=== PATIENT | female | born 1970 | race Caucasian/White ===

== ENCOUNTER 2017-05-21 16:21 | Emergency (ER) | payer MEDICAID ==
[~2017-05-21] VITALS: Ht 154.9 cm; Wt 38.6 kg
[~2017-05-21 16:21] MED LIST: AC325T; ALBU17AE23 INH; ALBU2.5V4 INH; ALBU2.5V4 NEB; ALBU8.5H2 IH; ALBU8.5H2 INH; ALPR.25T PO; ALPR.5T PO; ALPR1T; ALPR1T PO; AMLO2.5T PO; ASPI-892 PO; ASPI-933 PO; AZIT250T81 PO; Azithromycin PO; BUDE10.2 IH; BUDE10.22 INH; BUDE6HFA IH; BUDE6HFA INH; CEFD300C3 PO; CEFP500T4 PO; CEPH500C PO; CETI10CA PO; CETI10TA17 PO; CLIN300C3 PO; CPR500T PO; CTLP20T PO; DCS100C PO; DICL75TA2 PO; DOCU100T2 PO; DOXY100C2 PO; DULO30CA; EST1.25T; EST1.25T PO; FENTANYL; FLC1T; FLT05NA16 NS; FLT05NA16 NSEACH; FLUT16SP22; FNT100TD TD; GABA-488 PO; GABA300C PO; GABA600T; GABA600T2 PO; GABA800T2 PO; GBPN100C PO; GBPN300C; GBPN600T PO; HYDR-229 PO; HYDR-2858 PO; HYDR-2890 PO; HYDR-3062 PO; HYDR-34; HYDR-34 PO; HYDR-3714 PO; HYDR-3720; HYDR-3720 PO; HYDR-3816 PO; HYDR-707 PO; HYDR1TAB PO; HYDR50TA76 PO; IPRA3AMP11 INH; LANS15CA PO; LEVO500T69 PO; LNS30CCR PO; LORA10TA7 PO; LYRICA; MELO-195 PO; MELO15TA39 PO; MELO7.5T PO; MORP10CA8 PO; MORP15TA30 PO; MORP30CA15 PO; MORP60CA18 PO; MORP60TA28 PO; NAPR-243 PO; NAPR500T PO; NEBU1EAC2 MC; NF-ESOM40C PO; NITR100C3 PO; ONDA-42 SL; ONDN4T PO; OXC5T PO; OXYC-272 PO; OXYC20TA14 PO; OXYC30TA76 PO; OXYC5TAB71 PO; PIRO-9 PO; PIRO20CA2; PIRO20CA2 PO; PIROXICAM; PIROXICAM PO; PNT40TEC PO; PRD20T PO; PRED10TA PO; PROP80TA3 PO; RANI-10 PO; RANI150T11 PO; RANI150T66 PO; RANI75TA30 PO; RANI75TA57 PO; RNT150T; RNT150T PO; RT-ALBUINH IH; SCR1T1 PO; TRAZODONE PO; TRM50T PO; [UNRECOGNIZED DRUG - CODE] PO
--- OUTSIDE RECORDS SUMMARY | 2017-05-21 16:28 | XMS REPORT ---
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 Problem Other, mixed, or unspecified nondependent drug abuse, unspecified 305.90 Active Problem Nausea alone 787.02 Active Problem Other chronic pain 338.29 Active Problem Chronic airway obstruction, not elsewhere classified 496 Active Problem Anxiety state, unspecified 300.00 Active Problem Elevated blood pressure reading without diagnosis of hypertension 796.2 Active Problem Unspecified disorder of kidney and ureter 593.9 Active Problem Nondependent opioid abuse, unspecified 305.50 Active Problem Other, mixed, or unspecified nondependent drug abuse, 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
--- OUTSIDE RECORDS SUMMARY | 2017-05-21 16:28 | XMS REPORT | Clinical Summary ---
Author Author [facility] Organization [facility] Address Unknown Phone Unavailable Care Team Providers Care Scale Adjuster Name Role Phone PCP Unavailable Source Comments Some departments are not documenting in the electronic medical record. If you do not see the information that you expected, contact Release of Information in the Health Information Management department at [phone] for further assistance in locating additional records.[facility] Allergies Active Allergy Reactions Severity Noted Date Comments Ketorolac 01/25/2006 Allergy recorded in SMS: KETOROLAC Ofloxacin 01/25/2006 Allergy recorded in SMS: FLOXIN Penicillins 01/25/2006 Allergy recorded in SMS: PCN Promethazine 01/25/2006 Allergy recorded in SMS: Phenergan Propoxyphene 01/25/2006 Allergy recorded in SMS: N-Acetaminophen DARVOCET Tramadol RASH 03/19/2010 Current Medications Prescription Sig. Disp. Refills Start End Date Status Date gabapentin (NEURONTIN) Take 900 mg by mouth Active 300 mg capsule three times daily. ranitidine(+) (ZANTAC) Take 150 mg by mouth Active 150 mg tablet twice daily. docusate (COLACE) 100 mg Take 1 Cap by mouth twice 60 Cap 0 12/11/19 Active capsule daily as needed for 15 Constipation. HYDROcodone/acetaminophen Take 1-2 Tabs by mouth 100 Tab 0 01/05/20 Active (NORCO; VICODIN) 5-325 mg every 8 hours as needed 15 tablet for Pain. Max 8 tabs/day (must last until 01/18/15) pregabalin (LYRICA) 25 mg Take 1 Cap by mouth three 270 Cap 3 Active capsule times daily. 15 Active Problems Problem Noted Date Postop check 12/24/2014 Social History Tobacco Use Types Packs/Day Years Used Date Current Every Day Smoker Cigarettes 2 31 Smokeless Tobacco: Never Used Tobacco Cessation: Ready to Quit: No; Counseling Given: Yes Alcohol Use Drinks/Week oz/Week Comments No Sex Assigned at Date Recorded Not on file Last Filed Vital Signs Vital Sign Reading Time Taken Blood Pressure 145/94 01/25/2015 2:11 PM CDT Pulse 76 01/25/2015 2:11 PM CDT Temperature 36.6 C (97.9 F) 01/04/2015 1:17 PM CDT Respiratory Rate - - Oxygen Saturation 95% 12/10/2014 6:00 PM CDT Inhaled Oxygen - - Concentration Weight 46.3 kg (102 lb) 01/04/2015 1:17 PM CDT Height 154.9 cm (5' 1") 01/04/2015 1:17 PM CDT Body Mass Index 19.27 01/04/2015 1:17 PM CDT Plan of Treatment Health Maintenance Due Date Last Done Comments PHYSICAL (COMPREHENSIVE) 1975 EXAM PERTUSSIS VACCINE 1979 TETANUS VACCINE 1985 CERVICAL CANCER SCREENING 1998 BREAST CANCER SCREENING 2008 INFLUENZA VACCINE 05/26/2017 Results Not on filefrom Last 3 Months
--- OUTSIDE RECORDS SUMMARY | 2017-05-21 16:28 | XMS REPORT ---
Author Author YANI WILSON Organization [facility] Address [address] [place] [address] Care Team Providers Care Hourly Shift Manager Name Role Phone YANI WILSON Unavailable PROBLEMS Type Condition ICD9-CM Code [id number] Code Onset Dates Condition Status SNOMED Code Problem Unspecified drug dependence, unspecified abuse 304.90 Active 891456144 Problem Chronic airway obstruction, not elsewhere classified 496 Active 19824162 Problem Anxiety state, unspecified 300.00 Active 941263297 Problem Phantom limb pain G54.7 Active 046937231 Problem Other chronic pain 338.29 Active 52297987 Problem Elevated blood pressure reading without diagnosis of hypertension 796.2 Active 457938300 Problem Unspecified disorder of kidney and ureter 593.9 Active 464962729 Problem Other, mixed, or unspecified nondependent drug abuse, unspecified 305.90 Active 930637378 Problem Nausea alone 787.02 Active 652084143 Problem Other, mixed, or unspecified nondependent drug abuse, 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 Active Problem Nondependent amphetamine or related acting sympathomimetic abuse, 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
--- OUTSIDE RECORDS SUMMARY | 2017-05-21 16:29 | XMS REPORT ---
Author Author OLMAN DSOUZA Organization [employer] Address Unknown Phone Unavailable Care Team Providers Care Junior Systems Engineer Name Role Phone OLMAN DSOUZA CP Unavailable [...]
--- OUTSIDE RECORDS SUMMARY | 2017-05-21 16:29 | XMS REPORT ---
Author Author OLMAN DSOUZA Organization [employer] Address Unknown Phone Unavailable Care Team Providers Care Pest Control Worker Name Role Phone OLMAN DSOUZA CP Unavailable Allergies No Known Allergies Problems Problem Type Condition ICD-9 Code Onset Dates Condition Status Problem Urinary [...] acting sympathomimetic abuse, 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 Medications Medication Code System Code Instructions Start Date End Date Status Dosage Gabapentin [facility] 45403686149 300 Orally Three times a day TAKE THREE CAPSULES BY MOUTH THREE TIMES A DAY . Results No Known Results Summary Purpose [employer] Submission
--- OUTSIDE RECORDS SUMMARY | 2017-05-21 16:29 | XMS REPORT ---
Author Leonel Camejo [facility] Address [address] [place], [place] [id number] Care Team Providers Care Women'S Soccer Coach Name Role Phone Leonel Rivers PCP Unavailable Allergies and Adverse Reactions Name Reaction Notes PENICILLINS Augmentin Floxin Phenergan Toradol Darvocet-N 100 Plan of Treatment Not available. Medications Active Name Start Date Estimated Completion Date SIG Comments Pancreaze oral TID Protonix 40 mg oral tablet,delayed release (DR/EC) take 1 tablet (40 mg ) by oral route once daily Zofran ODT 4 mg oral tablet,disintegrating PRN Nexium 20 mg oral capsule,delayed release(DR/EC) Prilosec OTC 20 mg oral tablet,delayed release (DR/EC) gabapentin 300 mg oral capsule take 3 capsules by oral route 3 times a day hydrocodone-acetaminophen 7.5-325 mg oral tablet take 1 tablet by oral route every 4-6 hours as needed for pain tramadol 50 mg oral tablet take 1 tablet (50 mg) by oral route every 4 hours as needed Problem List Description Status Onset Neuropathy Active Pancreatitis Active Peripheral Vascular Disease Active Vital Signs Date Time BP-Sys(mm[Hg] BP-Heidi(mm[Hg]) HR(bpm) RR(rpm) Temp WT HT HC BMI BSA BMI Percentile O2 Sat(%) 10/24/2016 10:37:00 AM 110 mmHg 78 mmHg 104 bpm 20 rpm 98.3 F 97 % Social History Name Description Comments Tobacco Current every day smoker History of Procedures Not available. Results Summary Not available. History Of Immunizations Not available. History of Past Illness Name Date of Onset Comments Pancreatitis Peripheral Vascular Disease Neuropathy Chronic pancreatitis Oct 24 2016 10:37AM Pancreatic cyst Oct 24 2016 10:37AM Payers Not available. History of Encounters Visit Date Visit Type Provider 10/24/2016 Office visit Leonel Rivers MD
--- OUTSIDE RECORDS SUMMARY | 2017-05-21 16:29 | XMS REPORT ---
Author Author OLMAN DSOUZA [facility] [employer] Address Unknown Phone Unavailable Care Team Providers Care Siebel Architect Name Role Phone OLMAN DSOUZA CP Unavailable [...] Instructions Start Date End Date Status Dosage Ranitidine HCl [facility] [address]-15 150 MG Orally Twice a day 1 tablet Gabapentin [facility] 43791313622 300 Orally 4 times a day 3 capsules Zofran ODT [facility] [address]-68 4 MG Orally every 6 hrs prn nausea 1 tablet on the tongue and allow to dissolve Diclofenac Sodium [facility] [address]-16 75 MG Orally Once a day 1 tablet Results No Known Results Summary Purpose [employer] Submission
--- OUTSIDE RECORDS SUMMARY | 2017-05-21 16:30 | XMS REPORT ---
Author Author YANI WILSON Organization [facility] Address [address] [place] [address] Care Team Providers Care Raw Stock Machine Loader Name Role Phone YANI WILSON Unavailable PROBLEMS Type Condition ICD9-CM Code [id number] Code Onset Dates Condition Status SNOMED Code Problem Unspecified drug dependence, unspecified abuse 304.90 Active 369519112 Problem Chronic airway obstruction, not elsewhere classified 496 Active 47150660 Problem Anxiety state, unspecified 300.00 Active 892424347 Problem Phantom limb pain G54.7 Active 322481139 Problem Other chronic pain 338.29 Active 21492728 Problem Elevated blood pressure reading without diagnosis of hypertension 796.2 Active 481296062 Problem Unspecified disorder of kidney and ureter 593.9 Active 092352904 Problem Other, mixed, or unspecified nondependent drug abuse, unspecified 305.90 Active 521179268 Problem Nausea alone 787.02 Active 019190874 Problem Other, mixed, or unspecified nondependent drug abuse, 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 Active Problem Nondependent amphetamine or related acting sympathomimetic abuse, 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 Problem Urinary frequency 788.41 Active 928315054 Problem Nondependent opioid abuse, unspecified 305.50 Active 286713916 Problem 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
--- OUTSIDE RECORDS SUMMARY | 2017-05-21 16:30 | XMS REPORT ---
Author Author AMAYA LASHAY Organization [facility] Address [address] [place] [address] Care Team Providers Care Sugar Refiner Name Role Phone AMAYALIOR MONROYHANY Unavailable PROBLEMS Type Condition ICD9-CM Code HOT85-TL Code Onset Dates Condition Status SNOMED Code Problem Unspecified drug dependence, unspecified abuse 304.90 Active 259081619 Problem Chronic airway obstruction, not elsewhere classified 496 Active 01628214 Problem Anxiety state, unspecified 300.00 Active 000493915 Problem Phantom limb pain G54.7 Active 920570436 Problem Other chronic pain 338.29 Active 50356915 Problem Elevated blood pressure reading without diagnosis of hypertension 796.2 Active 822300050 Problem Unspecified disorder of kidney and ureter 593.9 Active 503498246 Problem Other, mixed, or unspecified nondependent drug abuse, unspecified 305.90 Active 794283719 Problem Nausea alone 787.02 Active 499662107 Problem Other, mixed, or unspecified nondependent drug abuse, 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 Active Problem Nondependent amphetamine or related acting sympathomimetic abuse, 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
--- OUTSIDE RECORDS SUMMARY | 2017-05-21 16:31 | XMS REPORT ---
Author Author OLMAN DSOUZA [facility] [employer] Address Unknown Phone Unavailable Care Team Providers Care Route Salesperson Name Role Phone OLMAN DSOUZA CP Unavailable Allergies, Adverse Reactions, Alerts Substance Reaction Event Type Phenergan Info Not Available Drug Allergy Penicillin V Potassium Info Not Available Drug Allergy Floxin Otic Info Not Available Drug Allergy Darvocet-N 100 Info Not Available Drug Allergy Augmentin ES-600 Info Not Available Drug Allergy Problems Problem Type Condition ICD-9 Code Onset Dates Condition Status Problem Urinary frequency 788.41 Active Problem Unspecified drug dependence, unspecified abuse 304.90 Active Problem 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 Problem Other, mixed, or unspecified nondependent drug abuse, unspecified 305.90 Active Assessment Noncompliance V15.81 Active Problem Nausea alone 787.02 Active Problem Other chronic pain 338.29 Active Problem Chronic airway obstruction, not elsewhere classified 496 Active Problem Anxiety state, unspecified 300.00 Active Problem Elevated blood pressure reading without diagnosis of hypertension 796.2 Active Problem Unspecified disorder of kidney and ureter 593.9 Active Assessment Encounter for long-term (current) use of high-risk medication V58.69 Active Assessment History of drug abuse 305.93 Active Assessment Anxiety 300.00 Active Assessment Dyspepsia 536.8 Active Assessment Chronic pain following surgery or procedure 338.28 Active Problem Nondependent opioid abuse, unspecified 305.50 Active Assessment Allergic rhinitis 477.9 Active Problem Other, mixed, or unspecified nondependent drug abuse, 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 Active Assessment COPD (chronic obstructive pulmonary disease) with acute bronchitis 491.22 Active Problem Nondependent amphetamine or related acting sympathomimetic abuse, 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 Medications Medication Code System Code Instructions Start Date End Date Status Dosage Zofran ODT [facility] [address]-10 4 mg March 18, 2014 take 1 tablets by Oral route every 8 hours PRN Nausea or Vomiting HydrOXYzine HCl [facility] [address]-66 50 MG Orally 3 times a day November 03, 2014 1 tablet as needed Albuterol Sulfate [facility] 32239918190 2.5 mg Inhalation every 8 hrs prn USE 1 VIAL PER NEBULIZER NEEDED FOR COUGH/WHEEZING ZyrTEC NDC 0 10 mg Once a day November 03, 2014 1 tablet by Oral route 1 time per day Flonase [facility] [address]-18 50 mcg/actuation Nasally Once a day November 03, 2014 inhale 1 spray (50 mcg) in each nostril by intranasal route 2 times per day Lidocaine HCl [facility] 0 5 % Externally 3 times a day November 01, 2014 by Topical route 3 times per day MUST KEEP APPT Gabapentin [facility] 66886444402 300 Orally 4 times a day 3 capsules ProAir HFA [facility] [address]-24 90 mcg/actuation Inhalation every 4 hrs only dyspnea or wheezing November 03, 2014 inhale 2 puffs by inhalation route every 4-6 hours as needed PRN Nebulizer [facility] [address] March 17, 2015 as directed Symbicort [facility] [address]-56 160-4.5 mcg/actuation Inhalation Twice a day November 03, 2014 2 puffs by Inhalation route 2 times per day for 30 day(s) Ranitidine HCl [facility] [address]-09 150 MG Orally 2 times a day November 03, 2014 take 1 tablet (150 mg) by oral route 2 times per day Procedures Procedure Coding System Code Date Office Visit, Est Pt., Level 4 CPT-4 21145 Apr 26, 2015 Vital Signs Date/Time: Apr 26, 2015 Cardiac Monitoring Heart Rate 72 bpm Temperature 97.2 F Height 61 in Blood Pressure Diastolic 88 mmHg Blood Pressure Systolic 102 mmHg Results No Known Results Summary Purpose [employer]ClinicalWorks Submission
--- NOTE | 2017-05-21 17:07 | ED Abdominal Pain ---
General Chief Complaint: Abdominal/GI Problems Stated Complaint: ABDOMINAL PAIN Source of Information: Patient Exam Limitations: No Limitations History of Present Illness Time Seen By Provider: 17:06 Initial Comments To ER with reports of abdominal pain. She reports nausea without vomiting. She states her last bowel movement was yesterday and was normal. No bowel movement today. She states that she believes this to be a recurrent bout of pancreatitis. Timing/Duration: 1-2 Days Severity/Quality: Cramping Location: Generalized Abdomen Radiation: No Radiation Activities at Onset: None Associated Symptoms: Nausea/Vomiting Allergies and Home Medications Allergies Coded Allergies: ofloxacin (Verified Allergy, Mild, 08/10/16) Penicillins (Verified Allergy, Unknown, 08/10/16) amoxicillin (Verified Allergy, Unknown, 08/10/16) clavulanic acid (Verified Allergy, Unknown, 08/10/16) promethazine (Verified Allergy, Unknown, 08/10/16) propoxyphene (Verified Allergy, Unknown, 08/10/16) Home Medications Budesonide/Formoterol Fumarate 10.2 Gm Hfa.aer.ad, 2 PUFF IH BID, (Reported) Gabapentin 300 Mg Capsule, 300 MG PO QID, (Reported) TAKES ALONG WITH 600MG TABLET FOR A TOTAL DOSE OF 900MG 4 TIMES DAILY Gabapentin 600 Mg Tablet, 600 MG PO QID, (Reported) TAKES ALONG WITH 300MG CAPSULE FOR A TOTAL DOSE OF 900MG 4 TIMES DAILY Meloxicam 15 Mg Tablet, 15 MG PO DAILY, (Reported) Ranitidine HCl 150 Mg Tablet, 150 MG PO BID, (Reported) Review of Systems Constitutional: see HPI EENTM: No Symptoms Reported Respiratory: No Symptoms Reported Cardiovascular: No Symptoms Reported Gastrointestinal: See HPI, Abdominal Pain Genitourinary: No Symptoms Reported Musculoskeletal: no symptoms reported Skin: no symptoms reported Psychiatric/Neurological: No Symptoms Reported Endocrine: No Symptoms Reported Hematologic/Lymphatic: No Symptoms Reported Past Byvmtve-Ptxrlk-Upvbjr Hx Patient Social History Type Used: Cigarettes Recent Foreign Travel: No Contact w/Someone Who Travel: No Recent Hopitalizations: Yes Immunizations Up To Date Tetanus Booster (TDap): Less than 5yrs PED Vaccines UTD: Yes Date of Pneumonia Vaccine: Jul 26, 2009 Date of Influenza Vaccine: Sep 26, 2013 Seasonal Allergies Seasonal Allergies: No Surgeries Surgeries: Amputation, Gallbladder, Hysterectomy Respiratory Respiratory Disorders: Asthma, Pneumonia, COPD, Emphysema Currently Using CPAP: No Currently Using BIPAP: No Neurological Neurological Disorders: Stroke 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 System Hx 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 Disorders: Yes Sexually Transmitted Disease: No HIV/AIDS: No 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 Gastrointestinal Gastrointestinal Disorders: Pancreatitis Musculoskeletal Musculoskeletal Disorders: Amputee, Osteoporosis HEENT HEENT Disorders: Cataract Loss of Vision: Denies Hearing Impairment: Denies Psychosocial Behavioral Health Disorders: Anxiety, Depression Blood Transfusions Adverse Reaction to a Blood Tr: No Family Medical History Significant Family History: COPD, Diabetes Family Medial History: Alzheimer's disease 19 FATHER 19 MOTHER Asthma 19 FATHER Completed stroke 19 FATHER Deafness or hearing loss 19 FATHER Dementia 19 FATHER Diabetes mellitus 19 FATHER 19 MOTHER Headache disorder 19 FATHER Hypertension 19 FATHER 19 MOTHER Myocardial infarction 19 FATHER 19 MOTHER Respiratory disorder 19 FATHER No Family History of: Kidney disease Physical Exam Vital Signs VS - Last 72 Hours, by Label 05/21/17 16:55 Temp 98.2 Pulse 86 Resp 16 B/P (MAP) 122/89 Pulse Ox 98 O2 Delivery Room Air Capillary Refill : General Appearance: WD/WN, no apparent distress HEENT: PERRL/EOMI, normal ENT inspection Neck: non-tender, full range of motion Respiratory: normal breath sounds, no respiratory distress, no accessory muscle use Cardiovascular: regular rate, rhythm, no murmur Gastrointestinal: normal bowel sounds, non tender, soft, distended Extremities: normal range of motion, non-tender Neurologic/Psychiatric: alert, normal mood/affect, oriented x 3 Skin: normal color, warm/dry Progress/Results/Core Measures Results/Orders Lab Results Laboratory Tests Test 05/21/17 17:30 Range/Units White Blood Count 10.3 4.3-11.0 10^3/uL Red Blood Count 3.69 L 4.35-5.85 10^6/uL Hemoglobin 10.1 L 11.5-16.0 G/DL Hematocrit 34 L 35-52 % Mean Corpuscular Volume 93 80-99 FL Mean Corpuscular Hemoglobin 27 25-34 PG Mean Corpuscular Hemoglobin Concent 29 L 32-36 G/DL Red Cell Distribution Width 17.3 H 10.0-14.5 % Platelet Count 390 130-400 10^3/uL Mean Platelet Volume 10.5 H 7.4-10.4 FL Neutrophils (%) (Auto) 74 42-75 % Lymphocytes (%) (Auto) 16 12-44 % Monocytes (%) (Auto) 9 0-12 % Eosinophils (%) (Auto) 1 0-10 % Basophils (%) (Auto) 1 0-10 % Neutrophils # (Auto) 7.6 1.8-7.8 X 10^3 Lymphocytes # (Auto) 1.6 1.0-4.0 X 10^3 Monocytes # (Auto) 0.9 0.0-1.0 X 10^3 Eosinophils # (Auto) 0.1 0.0-0.3 10^3/uL Basophils # (Auto) 0.1 0.0-0.1 10^3/uL Urine Color YELLOW Urine Clarity CLEAR Urine pH 5 5-9 Urine Specific [place] 1.020 1.016-1.022 Urine Protein 1+ H NEGATIVE Urine Glucose (UA) NEGATIVE NEGATIVE Urine Ketones NEGATIVE NEGATIVE Urine Nitrite NEGATIVE NEGATIVE Urine Bilirubin NEGATIVE NEGATIVE Urine Urobilinogen NORMAL NORMAL MG/DL Urine Leukocyte Esterase NEGATIVE NEGATIVE Urine RBC (Auto) NEGATIVE NEGATIVE Urine RBC NONE /HPF Urine WBC 0-2 /HPF Urine Squamous Epithelial Cells 2-5 /HPF Urine Crystals NONE /LPF Urine Bacteria TRACE /HPF Urine Casts NONE /LPF Urine Mucus NEGATIVE /LPF Urine Culture Indicated NO Sodium Level 139 135-145 MMOL/L Potassium Level 4.8 3.6-5.0 MMOL/L Chloride Level 110 H 98-107 MMOL/L Carbon Dioxide Level 18 L 21-32 MMOL/L Anion Gap 11 5-14 MMOL/L Blood Urea Nitrogen 22 H 7-18 MG/DL Creatinine 0.80 0.60-1.30 MG/DL Estimat Glomerular Filtration Rate > 60 BUN/Creatinine Ratio 28 Glucose Level 93 70-105 MG/DL Calcium Level 9.3 8.5-10.1 MG/DL Total Bilirubin 0.2 0.1-1.0 MG/DL Aspartate Amino Transf (AST/SGOT) 10 5-34 U/L Alanine Aminotransferase (ALT/SGPT) 8 0-55 U/L Alkaline Phosphatase 62 40-136 U/L Total Protein 7.2 6.4-8.2 GM/DL Albumin 4.1 3.2-4.5 GM/DL Lipase 120 H 8-78 U/L Urine Opiates Screen NEGATIVE NEGATIVE Urine Oxycodone Screen NEGATIVE NEGATIVE Urine Methadone Screen NEGATIVE NEGATIVE Urine Propoxyphene Screen NEGATIVE NEGATIVE Urine Barbiturates Screen NEGATIVE NEGATIVE Ur Tricyclic Antidepressants Screen NEGATIVE NEGATIVE Urine Phencyclidine Screen NEGATIVE NEGATIVE Urine Amphetamines Screen NEGATIVE NEGATIVE Urine Methamphetamines Screen NEGATIVE NEGATIVE Urine Benzodiazepines Screen NEGATIVE NEGATIVE Urine Cocaine Screen NEGATIVE NEGATIVE Urine Cannabinoids Screen NEGATIVE NEGATIVE Serum Alcohol < 10 <10 MG/DL My Orders Orders - JUAN C FRANCISCO CLIENT SUPPORT COORDINATOR Cbc With Automated Diff (05/21/17 17:03) Comprehensive Metabolic Panel (05/21/17 17:03) Lipase (05/21/17 17:03) Ua Culture If Indicated (05/21/17 17:03) Drug Screen Stat (Urine) (05/21/17 17:03) Saline Lock/Iv-Start (05/21/17 17:03) Ct Abdomen/Pelvis W (05/21/17 17:03) Ondansetron Injection (Zofran Injectio (05/21/17 17:15) Iohexol Injection (Omnipaque 350 Mg/Ml 1 (05/21/17 17:15) Ns (Ivpb) (Sodium Chloride 0.9% Ivpb Bag (05/21/17 17:15) Ns Iv 1000 Ml (Sodium Chloride 0.9%) (05/21/17 18:15) Alcohol (05/21/17 18:10) Prochlorperazine Injection (Compazine In (05/21/17 18:30) Ketorolac Injection (Toradol Injection) (05/21/17 18:30) Hs C Reactive Protein (05/21/17 18:43) Medications Given in ED Current Medications Medications Dose Ordered Sig/Ely Route Start Time Stop Time Status Last Admin Dose Admin Iohexol 100 ml ONCE ONCE IV 05/21/17 17:15 05/21/17 18:09 DC 05/21/17 17:54 100 ML Ondansetron HCl 4 mg ONCE ONCE IVP 05/21/17 17:15 05/21/17 17:16 DC 05/21/17 17:41 4 MG Prochlorperazine Edisylate 10 mg ONCE ONCE IV 05/21/17 18:30 05/21/17 18:31 DC 05/21/17 18:29 10 MG Sodium Chloride 100 ml ONCE ONCE IV 05/21/17 17:15 05/21/17 18:09 DC 05/21/17 17:55 100 ML Vital Signs/I&O Vital Sign - Last 12Hours 05/21/17 16:55 Temp 98.2 Pulse 86 Resp 16 B/P (MAP) 122/89 Pulse Ox 98 O2 Delivery Room Air Diagnostic Imaging Diagonstic Imaging: CT Comments NAME: SOPHIE [facility]US [facility] REC#: [id number] PT STATUS: REG ER : 1970 PHYSICIAN: JUAN C FRANCISCO CLIENT SUPPORT COORDINATOR ADMIT DATE: 05/21/17/ER Draft Date of Exam:05/21/17 CT ABDOMEN/PELVIS W Clinical indication: Patient complains of abdominal pain and feels bloated. Symptoms are worse today. Patient had BM yesterday. Patient has history of cysts on pancreas. Surgical history: Hysterectomy, gallbladder resection, hernia repair, and appendectomy. Exam: CT scan of the abdomen and pelvis performed with 100 cc of Omnipaque 350 IV contrast. Portable venous and delayed phases were obtained. Coronal reformatted images are created. Comparison: CT scan of the abdomen and pelvis performed with contrast dated 08/17/2016. FINDINGS: There is minimal atelectasis or scarring in the lingula/left lung base region. There is mild lower lumbar spine facet arthropathy. Otherwise, bones are unremarkable. Gallbladder is surgically resected. There is interval decreased size or near resolution of previously seen fluid collection seen posterior to the stomach. There is a small amount of fluid remaining posterior to the stomach and ventral to the pancreas. This fluid collection appears less distended and measures grossly 2.4 cm x 5.4 cm in greatest axial dimension. This fluid collection previously measured 4.3 cm x 5.1 cm and had peripheral enhancement. There is no peripheral enhancement involving this fluid collection. There is no edematous or masslike changes involving the pancreas. There is similar gastric wall thickening and enhancement involving the gastric fundus and body with no measurable mass seen. The remainder of the intestines are unremarkable. The appendix is not seen related to patient's history of appendectomy. There is air and stool distended rectum again seen with a moderate amount of stool noted. There is no intra-abdominal free air or free fluid. The liver, adrenal glands, and both kidneys are unremarkable. There is no hydronephrosis, renal mass, or stones seen. Again seen are multiple surgical clips involving the right lower anterior abdominal wall region. There is no significant lymphadenopathy. There is no aneurysmal dilation of the abdominal aorta or iliac arteries. Again noted, cachexia which has progressed. Otherwise there is no significant extra abdominal and extrapelvic soft tissue abnormality. The bladder is fluid distended and otherwise unremarkable as visualized. Impression: 1: There is interval decreased size of the previously seen fluid collection posterior to the stomach and ventral to the pancreatic tail. There is residual small fluid collection in the region with no evidence of peripheral enhancement seen on this exam. 2: The appearance of the pancreas is stable. 3: There is stable wall thickening of the stomach which is nonspecific. 4: The remainder of this exam is stable with no significant interval abnormality. Dictated on workstation # [id number] Dict: 05/21/17 1805 Trans: 05/21/17 1841 [facility] [id number] Interpreted by: BEE MAR MD Electronically signed by: Departure Impression Impression: Primary Impression: Abdominal pain, chronic, generalized Additional Impressions: Chronic pancreatitis resolving pancreatic pseudocyst Disposition: 01 HOME, SELF-CARE Condition: Stable Departure-Patient Inst. Decision time for Depature: 18:57 Referrals: NO,LOCAL PHYSICIAN (PCP/Family) Primary Care Physician Patient Instructions: Pancreatitis (DC) Add. Discharge Instructions: 1. Clear liquids only for the rest of tonight and tomorrow morning. No alcohol. Follow-up with [facility]. Give them a call tomorrow to make an appointment to be seen 3. Nausea medication as needed All discharge instructions reviewed with patient and/or family. Voiced understanding. Scripts Prochlorperazine Maleate (Compazine) 25 Mg Supp.rect 25 MG RC Q8H for Nausea/Vomiting, #10 SUPP.RECT Prov: JUAN C FRANCISCO APRN 05/21/17 JUAN C FRANCISCO APRN May 21, 2017 17:07
[2017-05-21] MEDS ORDERED: ONDANSETRON 4 MG/2 ML (SDV) Z0FRAN IVP ONE (17:15)
[2017-05-21] MEDS ORDERED: IOHEXOL 350 MG/ML 100 ML (OMNIPAQUE 350) VIAL IV ONE (17:15)
[2017-05-21] MEDS ORDERED: NS 100 ML (IVPB) BAG IV ONE (17:15)
[2017-05-21 17:43] LABS: BILIRUBIN,URINE NEGATIVE (NEGATIVE); KETONES,URINE NEGATIVE (NEGATIVE); LEUKOCYTE ESTERASE ,URINE NEGATIVE (NEGATIVE); NITRITE,URINE NEGATIVE (NEGATIVE); PH,URINE 5 (5-9); PROTEIN,URINE 1+ (NEGATIVE); UROBILINOGEN,URINE NORMAL (NORMAL)
[2017-05-21 17:44] LABS: BASOPHILS # (AUTO) 0.1 10^3/uL (0.0-0.1); BASOPHILS % (AUTO) 1 % (0-10); EOSINOPHILS # (AUTO) 0.1 10^3/uL (0.0-0.3); EOSINOPHILS % (AUTO) 1 % (0-10); LYMPHOCYTES # (AUTO) 1.6 X 10^3 (1.0-4.0); LYMPHOCYTES % (AUTO) 16 % (12-44); MEAN CORPUSCULAR HEMOGLOBIN 27 PG (25-34); MEAN CORPUSCULAR HGB CONC 29 G/DL (32-36); MEAN CORPUSCULAR VOLUME 93 FL (80-99); MEAN PLATELET VOLUME 10.5 FL (7.4-10.4); MONOCYTES # (AUTO) 0.9 X 10^3 (0.0-1.0); MONOCYTES % (AUTO) 9 % (0-12); NEUTROPHILS # (AUTO) 7.6 X 10^3 (1.8-7.8); NEUTROPHILS % (AUTO) 74 % (42-75); PLATELET COUNT 390 10^3/uL (130-400); RED BLOOD COUNT 3.69 10^6/uL (4.35-5.85); RED CELL DISTRIBUTION WIDTH 17.3 % (10.0-14.5); WHITE BLOOD COUNT 10.3 10^3/uL (4.3-11.0)
[2017-05-21 17:49] LABS: WBC,URINE 0-2 /HPF
[2017-05-21 18:00] LABS: ALANINE AMINOTRANSFERASE 8 U/L (0-55); ALBUMIN 4.1 GM/DL (3.2-4.5); ANION GAP 11 MMOL/L (5-14); ASPARTATE AMINO TRANSFERASE 10 U/L (5-34); BILIRUBIN,TOTAL 0.2 MG/DL (0.1-1.0); BLOOD UREA NITROGEN 22 MG/DL (7-18); BUN/CREATININE RATIO 28; CALCIUM 9.3 MG/DL (8.5-10.1); CARBON DIOXIDE 18 MMOL/L (21-32); CHLORIDE 110 MMOL/L (98-107); GFR ESTIMATED > 60; GLUCOSE 93 MG/DL (70-105); LIPASE 120 U/L (8-78); POTASSIUM 4.8 MMOL/L (3.6-5.0); SODIUM 139 MMOL/L (135-145); TOTAL PROTEIN 7.2 GM/DL (6.4-8.2)
[2017-05-21] MEDS ORDERED: NS IV 1000 ML 1,000 ML IV SCH (18:15)
[2017-05-21] MEDS ORDERED: PROCHLORPERAZINE 10 MG/2ML INJ (COMPAZINE) IV ONE (18:30)
[2017-05-21] MEDS ORDERED: KETOROLAC 30 MG/ML VIAL IVP ONE (18:30)
--- NOTE | 2017-05-21 18:42 | Diagnostic Imaging Report ---
Clinical indication: Patient complains of abdominal pain and feels bloated. Symptoms are worse today. Patient had BM yesterday. Patient has history of cysts on pancreas. Surgical history: Hysterectomy, gallbladder resection, hernia repair, and appendectomy. Exam: CT scan of the abdomen and pelvis performed with 100 cc of Omnipaque 350 IV contrast. Portable venous and delayed phases were obtained. Coronal reformatted images are created. Comparison: CT scan of the abdomen and pelvis performed with contrast dated 08/17/2016. FINDINGS: There is minimal atelectasis or scarring in the lingula/left lung base region. There is mild lower lumbar spine facet arthropathy. Otherwise, bones are unremarkable. Gallbladder is surgically resected. There is interval decreased size or near resolution of previously seen fluid collection seen posterior to the stomach. There is a small amount of fluid remaining posterior to the stomach and ventral to the pancreas. This fluid collection appears less distended and measures grossly 2.4 cm x 5.4 cm in greatest axial dimension. This fluid collection previously measured 4.3 cm x 5.1 cm and had peripheral enhancement. There is no peripheral enhancement involving this fluid collection. There is no edematous or masslike changes involving the pancreas. There is similar gastric wall thickening and enhancement involving the gastric fundus and body with no measurable mass seen. The remainder of the intestines are unremarkable. The appendix is not seen related to patient's history of appendectomy. There is air and stool distended rectum again seen with a moderate amount of stool noted. There is no intra-abdominal free air or free fluid. The liver, adrenal glands, and both kidneys are unremarkable. There is no hydronephrosis, renal mass, or stones seen. Again seen are multiple surgical clips involving the right lower anterior abdominal wall region. There is no significant lymphadenopathy. There is no aneurysmal dilation of the abdominal aorta or iliac arteries. Again noted, cachexia which has progressed. Otherwise there is no significant extra abdominal and extrapelvic soft tissue abnormality. The bladder is fluid distended and otherwise unremarkable as visualized. Impression: 1: There is interval decreased size of the previously seen fluid collection posterior to the stomach and ventral to the pancreatic tail. There is residual small fluid collection in the region with no evidence of peripheral enhancement seen on this exam. 2: The appearance of the pancreas is stable. 3: There is stable wall thickening of the stomach which is nonspecific. 4: The remainder of this exam is stable with no significant interval abnormality. Dictated by: Dictated on workstation # [id number]
[2017-05-21] MEDS ORDERED: PROC25SU27 RC (18:58)
[2017-05-21 19:29] VITALS: BP 105/73
== END 2017-05-21 19:29 | disposition home or self-care (01) ==
LOC: EDUNIT# 16:21 → ER 16:24
DX: K86.1 Other chronic pancreatitis (principal); K86.3 Pseudocyst of pancreas; F41.9 Anxiety disorder, unspecified; F32.9 Major depressive disorder, single episode, unspecified; J43.9 Emphysema, unspecified; Z86.73 Personal history of transient ischemic attack (TIA), and cerebral infarction without residual deficits; Z87.19 Personal history of other diseases of the digestive system; Z90.710 Acquired absence of both cervix and uterus; Z89.9 Acquired absence of limb, unspecified
CPT/HCPCS: 36415; 74177; 80053; 80306; 80320; 81000; 83690; 85025; 86141; 96361; 96374; 96375

== ENCOUNTER 2017-08-05 15:38 | Inpatient (IN) | payer MEDICAID ==
[~2017-08-05] VITALS: Ht 154.9 cm; Wt 35.6 kg
[~2017-08-05 15:38] MED LIST changes: +NAPR-1071 PO; -NAPR500T PO; +PROC25SU27 RC
--- OUTSIDE RECORDS SUMMARY | 2017-08-05 15:52 | XMS REPORT | Clinical Summary ---
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 If you do not see the information that you expected, contact Release of Information in the Health Information Management department at [phone] for further assistance in locating additional records.[facility] Allergies Active Allergy Reactions Severity Noted [...] 1998 BREAST CANCER SCREENING 2008 INFLUENZA VACCINE 03/26/2017 Results Not on filefrom Last 3 Months
[2017-08-05 15:54] LABS: BASOPHILS % (AUTO) 0 % (0-10); EOSINOPHILS % (AUTO) 0 % (0-10); LYMPHOCYTES # (AUTO) 0.9 X 10^3 (1.0-4.0); LYMPHOCYTES % (AUTO) 6 % (12-44); MEAN CORPUSCULAR HEMOGLOBIN 25 PG (25-34); MEAN CORPUSCULAR HGB CONC 29 G/DL (32-36); MEAN CORPUSCULAR VOLUME 86 FL (80-99); MEAN PLATELET VOLUME 13.6 FL (7.4-10.4); MONOCYTES # (AUTO) 1.7 X 10^3 (0.0-1.0); MONOCYTES % (AUTO) 11 % (0-12); NEUTROPHILS # (AUTO) 12.6 X 10^3 (1.8-7.8); NEUTROPHILS % (AUTO) 83 % (42-75); PLATELET COUNT 135 10^3/uL (130-400); RED BLOOD COUNT 3.04 10^6/uL (4.35-5.85); RED CELL DISTRIBUTION WIDTH 16.7 % (10.0-14.5); WHITE BLOOD COUNT 15.2 10^3/uL (4.3-11.0)
[2017-08-05 16:11] LABS: ALANINE AMINOTRANSFERASE 17 U/L (0-55); ALBUMIN 2.6 GM/DL (3.2-4.5); ANION GAP 14 MMOL/L (5-14); ASPARTATE AMINO TRANSFERASE 21 U/L (5-34); BILIRUBIN,TOTAL 0.3 MG/DL (0.1-1.0); BLOOD UREA NITROGEN 55 MG/DL (7-18); BUN/CREATININE RATIO 23; CALCIUM 8.5 MG/DL (8.5-10.1); CARBON DIOXIDE 14 MMOL/L (21-32); CHLORIDE 111 MMOL/L (98-107); CREATININE SERUM 2.38 MG/DL (0.60-1.30); GFR ESTIMATED 22; GLUCOSE 102 MG/DL (70-105); POTASSIUM 4.6 MMOL/L (3.6-5.0); SODIUM 139 MMOL/L (135-145)
[2017-08-05 16:14] LABS: INR 1.3 (0.8-1.4); PROTHROMBIN TIME PATIENT 15.9 SEC (12.2-14.7)
[2017-08-05 16:18] LABS: HYPOCHROMASIA MODERATE; LYMPHOCYTES % (MANUAL) 5 %; NEUTROPHILS % (MANUAL) 85 %; TARGET CELLS SLIGHT
--- NOTE | 2017-08-05 16:28 | ED General ---
General Chief Complaint: General Problems/Pain Stated Complaint: LETHARGIC Nursing Triage Note: PT TO [facility] BY [facility] WITH CC OF NOT EATING FOR 2 DAYS, WEAKNESS AND LETHARGIC. PT RESPONSIVE TO PAIN BUT SLEEPING ON ARRIVAL. Nursing Sepsis Screen: No Definite Risk Source of Information: Patient Exam Limitations: Physical Impairments (clinical condition) History of Present Illness Time Seen by Provider: 15:39 Initial Comments Here by EMS with report of altered mental status. Apparently patient has not been eating or drinking for the last 2 days. EMS reports that the patient is lethargic and weak. This was also the same report to them from the family. Patient only states that she doesn't feel well and is weak. Unsure she is taking her medicines. Unsure if she is taking nonprescribed medications. Timing/Duration: 2-3 Days Severity: Moderate Associated Systoms: No Chest Pain, Malaise, No Nausea/Vomiting, No Shortness of Air, Weakness Allergies and Home Medications Allergies Coded Allergies: ofloxacin (Verified Allergy, Mild, 08/10/16) Penicillins (Verified Allergy, Unknown, 08/10/16) amoxicillin (Verified Allergy, Unknown, 08/10/16) clavulanic acid (Verified Allergy, Unknown, 08/10/16) promethazine (Verified Allergy, Unknown, 08/10/16) propoxyphene (Verified Allergy, Unknown, 08/10/16) Home Medications Budesonide/Formoterol Fumarate 10.2 Gm Hfa.aer.ad, 2 PUFF IH BID, (Reported) Gabapentin 300 Mg Capsule, 300 MG PO QID, (Reported) TAKES ALONG WITH 600MG TABLET FOR A TOTAL DOSE OF 900MG 4 TIMES DAILY Gabapentin 600 Mg Tablet, 600 MG PO QID, (Reported) TAKES ALONG WITH 300MG CAPSULE FOR A TOTAL DOSE OF 900MG 4 TIMES DAILY Meloxicam 15 Mg Tablet, 15 MG PO DAILY, (Reported) Prochlorperazine Maleate 25 Mg Supp.rect, 25 MG RC Q8H, #10 Prescribed by: JUAN C FRANCISCO on 05/21/17 663 Ranitidine HCl 150 Mg Tablet, 150 MG PO BID, (Reported) Constitutional: see HPI, No chills, No fever Other Unable to complete review of systems due to altered mental status Past Uedlzla-Atgtrd-Sgxgcz Hx Patient Social History Alcohol Use: Denies Use Recreational Drug Use: Yes (ETOH- NOT FOR LAST SIX MONTHS) Smoking Status: Current Everyday Smoker Type Used: Cigarettes 2nd Hand Smoke Exposure: No Recent Foreign Travel: No Contact w/Someone Who Travel: No Recent Infectious Disease Expo: No Recent Hopitalizations: No Immunizations Up To Date Tetanus Booster (TDap): Less than 5yrs PED Vaccines UTD: No Date of Pneumonia Vaccine: Jul 26, 2009 Date of Influenza Vaccine: Sep 26, 2013 Seasonal Allergies Seasonal Allergies: No Surgeries History of Surgeries: Yes (REMOVAL OF TEETH, hernia, dnc, l leg amputation) Surgeries: Amputation, Gallbladder, Hysterectomy Respiratory History of Respiratory Disorde: Yes Respiratory Disorders: Asthma, Pneumonia, COPD, Emphysema Currently Using CPAP: No Currently Using BIPAP: No Cardiovascular History of Cardiac Disorders: No Neurological History of Neurological Disord: Yes Neurological Disorders: Stroke 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 System Hx 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 Disorders: Yes Sexually Transmitted Disease: No HIV/AIDS: No 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 Genitourinary History of Genitourinary Disor: No Gastrointestinal History of Gastrointestinal Di: Yes Gastrointestinal Disorders: Pancreatitis Musculoskeletal History of Musculoskeletal Dis: Yes Musculoskeletal Disorders: Amputee, Osteoporosis Endocrine History of Endocrine Disorders: No HEENT History of HEENT Disorders: Yes HEENT Disorders: Cataract Loss of Vision: Denies Hearing Impairment: Denies Cancer History of Cancer: No Psychosocial History of Psychiatric Problem: Yes Behavioral Health Disorders: Anxiety, Depression Integumentary History of Skin or Integumenta: Yes (LARGE SCRATCHES ON RT LEG) Blood Transfusions History of Blood Disorders: No Adverse Reaction to a Blood Tr: No Reviewed Nursing Assessment Reviewed/Agree w Nursing PMH: Yes Family Medical History Significant Family History: COPD, Diabetes Family Medial History: Alzheimer's disease 19 FATHER 19 MOTHER Asthma 19 FATHER Completed stroke 19 FATHER Deafness or hearing loss 19 FATHER Dementia 19 FATHER Diabetes mellitus 19 FATHER 19 MOTHER Headache disorder 19 FATHER Hypertension 19 FATHER 19 MOTHER Myocardial infarction 19 FATHER 19 MOTHER Respiratory disorder 19 FATHER Physical Exam-Suspected Sepsis Physical Exam Vital Signs Vital Sign - Last 12Hours 08/05/17 15:46 Temp 98.4 Pulse 94 Resp 20 B/P (MAP) 117/89 (98) Pulse Ox 96 O2 Delivery Room Air Capillary Refill : Less Than 3 Seconds Blood Pressure Mean: 98 General Appearance: No Apparent Distress, Cachetic, Thin, Other (awakes to sternal rub and then answers questions but is very drowsy.) HEENT: PERRL/EOMI, Other (dry mucous membranes with blue mucus material in the mouth.) Neck: Full Range of Motion, Non Tender, Supple Respiratory: Lungs Clear, Normal Breath Sounds Cardiovascular: Regular Rate, Rhythm, No Murmur Gastrointestinal: Non Tender, Soft Back: Normal Inspection, No Vertebral Tenderness, CVA Tenderness (L), No CVA Tenderness (R) Extremity: Non Tender, No Calf Tenderness, Other (left AKA) Neurologic/Psychiatric: Depressed Affect, Disoriented x3, Motor Weakness Skin: normal color, warm/dry, No rash, No ulcerations, other (no obvious ulcerations or lesions.) Focused Exam Evaluation Lactate Level Laboratory Tests 08/05/17 15:43: Lactic Acid Level 0.89 Lactic Acid Level Laboratory Tests Test 08/05/17 15:43 Lactic Acid Level 0.89 MMOL/L (0.50-2.00) Progress/Results/Core Measures Suspected Sepsis Recent Fever Within 48 Hours: No Infection Criteria Present: Suspected New Infection New/Unexplained Altered Menta: Yes Sepsis Screen: No Definite Risk Sepsis Diagnosis: SIRS Temperature:98.4 Pulse: 94 Respiratory Rate: 20 Laboratory Tests 08/05/17 15:43: White Blood Count 15.2H Blood Pressure 117 /89 Mean: 98 Laboratory Tests 08/05/17 15:43: Lactic Acid Level 0.89 Laboratory Tests 08/05/17 15:43: Creatinine 2.38H, INR Comment 1.3, Platelet Count 135, Total Bilirubin 0.3 Results/Orders Lab Results Laboratory Tests Test 08/05/17 15:43 08/05/17 16:20 Range/Units White Blood Count 15.2 H 4.3-11.0 10^3/uL Red Blood Count 3.04 L 4.35-5.85 10^6/uL Hemoglobin 7.6 L 11.5-16.0 G/DL Hematocrit 26 L 35-52 % Mean Corpuscular Volume 86 80-99 FL Mean Corpuscular Hemoglobin 25 25-34 PG Mean Corpuscular Hemoglobin Concent 29 L 32-36 G/DL Red Cell Distribution Width 16.7 H 10.0-14.5 % Platelet Count 135 130-400 10^3/uL Mean Platelet Volume 13.6 H 7.4-10.4 FL Neutrophils (%) (Auto) 83 H 42-75 % Lymphocytes (%) (Auto) 6 L 12-44 % Monocytes (%) (Auto) 11 0-12 % Eosinophils (%) (Auto) 0 0-10 % Basophils (%) (Auto) 0 0-10 % Neutrophils # (Auto) 12.6 H 1.8-7.8 X 10^3 Lymphocytes # (Auto) 0.9 L 1.0-4.0 X 10^3 Monocytes # (Auto) 1.7 H 0.0-1.0 X 10^3 Eosinophils # (Auto) 0.0 0.0-0.3 10^3/uL Basophils # (Auto) 0.0 0.0-0.1 10^3/uL Neutrophils % (Manual) 85 % Lymphocytes % (Manual) 5 % Monocytes % (Manual) 10 % Hypersegmented Neutrophils SLIGHT Hypochromasia MODERATE Target Cells SLIGHT Prothrombin Time 15.9 H 12.2-14.7 SEC INR Comment 1.3 0.8-1.4 Activated Partial Thromboplast Time 35 24-35 SEC Sodium Level 139 135-145 MMOL/L Potassium Level 4.6 3.6-5.0 MMOL/L Chloride Level 111 H 98-107 MMOL/L Carbon Dioxide Level 14 L 21-32 MMOL/L Anion Gap 14 5-14 MMOL/L Blood Urea Nitrogen 55 H 7-18 MG/DL Creatinine 2.38 H 0.60-1.30 MG/DL Estimat Glomerular Filtration Rate 22 BUN/Creatinine Ratio 23 Glucose Level 102 70-105 MG/DL Lactic Acid Level 0.89 0.50-2.00 MMOL/L Calcium Level 8.5 8.5-10.1 MG/DL Total Bilirubin 0.3 0.1-1.0 MG/DL Aspartate Amino Transf (AST/SGOT) 21 5-34 U/L Alanine Aminotransferase (ALT/SGPT) 17 0-55 U/L Alkaline Phosphatase 89 40-136 U/L Troponin I < 0.30 <0.30 NG/ML Total Protein 6.0 L 6.4-8.2 GM/DL Albumin 2.6 L 3.2-4.5 GM/DL Amylase Level 52 25-125 U/L Lipase 66 8-78 U/L TSH [place] Testing 3.11 0.35-4.94 UIU/ML Salicylates Level < 5.0 L 5.0-20.0 MG/DL Acetaminophen Level 41 *H 10-30 UG/ML Serum Alcohol < 10 <10 MG/DL Urine Color YELLOW Urine Clarity VERY CLOUDY H Urine pH 5 5-9 Urine Specific [place] 1.015 L 1.016-1.022 Urine Protein 3+ H NEGATIVE Urine Glucose (UA) NEGATIVE NEGATIVE Urine Ketones NEGATIVE NEGATIVE Urine Nitrite POSITIVE H NEGATIVE Urine Bilirubin NEGATIVE NEGATIVE Urine Urobilinogen NORMAL NORMAL MG/DL Urine Leukocyte Esterase 3+ H NEGATIVE Urine RBC (Auto) 2+ H NEGATIVE Urine RBC 10-25 H /HPF Urine WBC TNTC H /HPF Urine Crystals NONE /LPF Urine Bacteria MODERATE H /HPF Urine Casts NONE /LPF Urine Mucus NEGATIVE /LPF Urine Culture Indicated YES Urine Opiates Screen NEGATIVE NEGATIVE Urine Oxycodone Screen NEGATIVE NEGATIVE Urine Methadone Screen NEGATIVE NEGATIVE Urine Propoxyphene Screen NEGATIVE NEGATIVE Urine Barbiturates Screen NEGATIVE NEGATIVE Ur Tricyclic Antidepressants Screen NEGATIVE NEGATIVE Urine Phencyclidine Screen NEGATIVE NEGATIVE Urine Amphetamines Screen NEGATIVE NEGATIVE Urine Methamphetamines Screen NEGATIVE NEGATIVE Urine Benzodiazepines Screen NEGATIVE NEGATIVE Urine Cocaine Screen NEGATIVE NEGATIVE Urine Cannabinoids Screen NEGATIVE NEGATIVE My Orders Orders - KADE RIVERA MD Cbc With Automated Diff (08/05/17 15:43) Comprehensive Metabolic Panel (08/05/17 15:43) Lactic Acid Analyzer (08/05/17 15:43) Blood Culture (08/05/17 15:43) Sputum Culture (08/05/17 15:43) Ua Culture If Indicated (08/05/17 15:43) Protime With Inr (08/05/17 15:43) Partial Thromboplastin Time (08/05/17 15:43) Chest 1 View, Ap/Pa Only (08/05/17 15:43) O2 (08/05/17 15:43) Saline Lock/Iv-Start (08/05/17 15:43) Ekg Tracing (08/05/17 15:43) Troponin I (08/05/17 15:43) Vital Signs Adult Sepsis Patie Q1H (08/05/17 15:43) Remove Rings In Anticipation O (08/05/17 15:43) Thyroid Analyzer (08/05/17 15:43) Drug Screen Stat (Urine) (08/05/17 15:43) Manual Differential (08/05/17 15:43) Lipase (08/05/17 16:30) Acetaminophen (08/05/17 16:30) Alcohol (08/05/17 16:30) Amylase (08/05/17 16:30) Salicylate (08/05/17 16:30) Urine Culture (08/05/17 16:20) Acetylcysteine Injection (Acetadote Inje (08/05/17 17:00) Ceftriaxone Injection (Rocephin Injectio (08/05/17 17:15) Saline Lock/Iv-Start (08/05/17 17:05) Medications Given in ED Current Medications Medications Dose Ordered Sig/Ely Route Start Time Stop Time Status Last Admin Dose Admin Acetylcysteine 6100 mg/Dextrose/ Water 230.5 ml @ 230.5 mls/ hr UD ONCE IV 08/05/17 17:00 08/05/17 17:59 DC 08/05/17 17:40 230.5 MLS/HR Vital Signs/I&O Vital Sign - Last 12Hours 08/05/17 15:46 Temp 98.4 Pulse 94 Resp 20 B/P (MAP) 117/89 (98) Pulse Ox 96 O2 Delivery Room Air Capillary Refill : Less Than 3 Seconds Blood Pressure Mean: 98 Progress Note : Progress Note Seen and evaluated. IV by EMS. Normal saline 1 L bolus. Labs, UA, UDS, chest x-ray and EKG ordered. Monitor patient. Patient unable to provide urine. Grubbs catheter placed to obtain UA and UDS. Repeat normal saline 500 mL bolus. 1630: I did add Tylenol, alcohol and salicylate to the labs. 1700: Tylenol level is in the toxic range. Poison control has been contacted and they are recommending acetylcysteine treatment. This was ordered. Loading dose of 150 mg/kg IV initiated. Patient will be admitted to the ICU. I did discuss the case with Dr. LUQUE at 1705. He accepts patient for admission, inpatient status. Patient also has acute renal failure. She has total of 1500 mL of IV fluids initiated. We will continue this as inpatient. Patient also has findings of UTI. Rocephin 1 g IV initiated. ECG Initial ECG Impression Date: Aug 05, 2017 Initial ECG Impression Time: 15:52 Initial ECG Rate: 87 Initial ECG Rhythm: Normal Sinus Comment Sinus rhythm with normal axis. No evidence of ST elevation NM. Similar to previous of 11 Jan 2013. Interpreted by me. Departure Communication (Admissions) Time/Spoke to Admitting Phy: 17:05 Impression Impression: Primary Impression: Acetaminophen overdose Qualified Codes: T39.1X4A - Poisoning by 4-aminophenol derivatives, undetermined, initial encounter Additional Impressions: Urinary tract infection Qualified Codes: N30.00 - Acute cystitis without hematuria Acute renal failure Qualified Codes: N17.9 - Acute kidney failure, unspecified Disposition: ADMITTED INPATIENT Condition: Stable Admissions Decision to Admit Reason: Admit from ER (General) Decision to Admit/Date: Aug 05, 2017 Time/Decision to Admit Time: 17:05 Departure-Patient Inst. Referrals: NO,LOCAL PHYSICIAN (PCP/Family) Primary Care Physician KADE RIVERA MD Aug 05, 2017 16:28
--- NOTE | 2017-08-05 16:28 | Diagnostic Imaging Report ---
INDICATION: Weakness and lethargy. Frontal chest obtained at 04:09 p.m. and compared with 08/10/2016. There is cardiomegaly. There is central vascular congestion. There are increased interstitial markings compatible with CHF. There is no consolidation, pneumothorax, or pleural fluid. IMPRESSION: Cardiomegaly and central vascular congestion with increased interstitial markings compatible with CHF. No consolidation or pleural fluid. Dictated by: Dictated on workstation # [id number]
[2017-08-05 16:31] LABS: TROPONIN I < 0.30 NG/ML (<0.30)
[2017-08-05 16:33] LABS: BILIRUBIN,URINE NEGATIVE (NEGATIVE); KETONES,URINE NEGATIVE (NEGATIVE); LEUKOCYTE ESTERASE ,URINE 3+ (NEGATIVE); NITRITE,URINE POSITIVE (NEGATIVE); PH,URINE 5 (5-9); PROTEIN,URINE 3+ (NEGATIVE); UROBILINOGEN,URINE NORMAL (NORMAL)
[2017-08-05 16:46] LABS: ALCOHOL < 10 MG/DL (<10); AMYLASE 52 U/L (25-125); LIPASE 66 U/L (8-78); SALICYLATE < 5.0 MG/DL (5.0-20.0)
[2017-08-05 16:49] LABS: ACETAMINOPHEN 41 UG/ML (10-30)
[2017-08-05 16:51] LABS: WBC,URINE TNTC /HPF
[2017-08-05] MEDS ORDERED: D5W IV ONE ×3 (17:00→23:05)
[2017-08-05] MEDS ORDERED: ACETYLCYSTEINE IV ONE ×3 (17:00→23:05)
[2017-08-05] MEDS ORDERED: cefTRIAXone INJECTION 1,000 MG in NS (IVPB) 50 ML IV ONE (17:15)
--- OUTSIDE RECORDS SUMMARY | 2017-08-05 17:36 | XMS REPORT | Clinical Summary ---
Author Author [facility] Organization [facility] Address Unknown Phone Unavailable Care Team Providers Care Naprapath Name Role Phone PCP Unavailable Source Comments Some departments are not documenting in the electronic medical record. If you do not see the information that you expected, contact Release of Information in the Health Information Management department at [phone] for further assistance in locating additional records.[facility] Allergies Active Allergy Reactions Severity Noted Date [...]
[2017-08-05] MEDS ORDERED: CATHETER FLUSH 10 ML SYR IV PRN (19:15)
[2017-08-05 19:36] VITALS: BP 104/75
[2017-08-05 19:45] VITALS: BP 109/75
[2017-08-05] MEDS: NS IV 1000 ML 1,000 ML IV SCH (19:47)
[2017-08-05 20:00] VITALS: BP 99/70
[2017-08-05 21:00] VITALS: BP 116/85
[2017-08-05 22:00] VITALS: BP 112/80
[2017-08-05 23:00] VITALS: BP 119/82
[2017-08-06] VITALS (14 sets, daily range): BP systolic 91–127; BP diastolic 58–86
[2017-08-06 02:57] LABS: BASOPHILS % (AUTO) 0 % (0-10); EOSINOPHILS % (AUTO) 0 % (0-10); LYMPHOCYTES # (AUTO) 0.6 X 10^3 (1.0-4.0); LYMPHOCYTES % (AUTO) 4 % (12-44); MEAN CORPUSCULAR HEMOGLOBIN 25 PG (25-34); MEAN CORPUSCULAR HGB CONC 30 G/DL (32-36); MEAN CORPUSCULAR VOLUME 85 FL (80-99); MEAN PLATELET VOLUME 13.1 FL (7.4-10.4); MONOCYTES # (AUTO) 1.8 X 10^3 (0.0-1.0); MONOCYTES % (AUTO) 11 % (0-12); NEUTROPHILS # (AUTO) 13.8 X 10^3 (1.8-7.8); NEUTROPHILS % (AUTO) 85 % (42-75); PLATELET COUNT 129 10^3/uL (130-400); RED BLOOD COUNT 2.94 10^6/uL (4.35-5.85); RED CELL DISTRIBUTION WIDTH 16.3 % (10.0-14.5); WHITE BLOOD COUNT 16.2 10^3/uL (4.3-11.0)
[2017-08-06 03:09] LABS: INR 1.4 (0.8-1.4); PROTHROMBIN TIME PATIENT 16.8 SEC (12.2-14.7)
[2017-08-06 03:19] LABS: ALANINE AMINOTRANSFERASE 13 U/L (0-55); ALBUMIN 2.3 GM/DL (3.2-4.5); ANION GAP 17 MMOL/L (5-14); ASPARTATE AMINO TRANSFERASE 22 U/L (5-34); BILIRUBIN,TOTAL 0.2 MG/DL (0.1-1.0); BLOOD UREA NITROGEN 49 MG/DL (7-18); BUN/CREATININE RATIO 23; CALCIUM 7.8 MG/DL (8.5-10.1); CARBON DIOXIDE 11 MMOL/L (21-32); CHLORIDE 111 MMOL/L (98-107); CREATININE SERUM 2.13 MG/DL (0.60-1.30); GFR ESTIMATED 25; GLUCOSE 109 MG/DL (70-105); MAGNESIUM 1.7 MG/DL (1.8-2.4); PHOSPHORUS 2.8 MG/DL (2.3-4.7); POTASSIUM 3.7 MMOL/L (3.6-5.0); SODIUM 139 MMOL/L (135-145); TOTAL PROTEIN 5.1 GM/DL (6.4-8.2)
[2017-08-06 03:20] LABS: ACETAMINOPHEN < 10 UG/ML (10-30)
[2017-08-06] MEDS: NS IV 1000 ML 1,000 ML IV SCH ×4 (04:17→23:04)
[2017-08-06] MEDS ORDERED: POTASSIUM CL 10MEQ/50ML IVPB 50 ML IV SCH (06:00)
[2017-08-06] MEDS ORDERED: KCL 20 MEQ TAB (K-DUR) PO SCH (06:00)
[2017-08-06] MEDS ORDERED: MAGNESIUM 1 GM/100 ML IVPB 100 ML IV SCH (06:00)
--- NOTE | 2017-08-06 06:30 | Pulmonary Consultation ---
History of Present Illness History of Present Illness Date of Consultation 08/06/17 06:25 Time Seen by Provider: 06:25 Date of Admission History of Present Illness 47yo presented to ED secondary to decreased appetite, weakness, and lethargy. Pt has not been eating/drinking for the last 2days. She was found to have acetaminophen level of 41. She was placed on Mucomyst PO. She is now improved and is now A&OX3. I am consulted for ICU management. Allergies and Home Medications Allergies Coded Allergies: ofloxacin (Verified Allergy, Mild, 08/10/16) Penicillins (Verified Allergy, Unknown, 08/10/16) amoxicillin (Verified Allergy, Unknown, 08/10/16) clavulanic acid (Verified Allergy, Unknown, 08/10/16) promethazine (Verified Allergy, Unknown, 08/10/16) propoxyphene (Verified Allergy, Unknown, 08/10/16) Home Medications Budesonide/Formoterol Fumarate 10.2 Gm Hfa.aer.ad, 2 PUFF IH BID, (Reported) Gabapentin 300 Mg Capsule, 300 MG PO QID, (Reported) TAKES ALONG WITH 600MG TABLET FOR A TOTAL DOSE OF 900MG 4 TIMES DAILY Gabapentin 600 Mg Tablet, 600 MG PO QID, (Reported) TAKES ALONG WITH 300MG CAPSULE FOR A TOTAL DOSE OF 900MG 4 TIMES DAILY Meloxicam 15 Mg Tablet, 15 MG PO DAILY, (Reported) Prochlorperazine Maleate 25 Mg Supp.rect, 25 MG RC Q8H, #10 Prescribed by: JUAN C FRANCISCO on 05/21/17 0138 Ranitidine HCl 150 Mg Tablet, 150 MG PO BID, (Reported) Past Dhhxrch-Wtcmdr-Ikmsuo Hx Patient Social History Alcohol Use: Denies Use Recreational Drug Use: Yes (ETOH- NOT FOR LAST SIX MONTHS) Smoking Status: Current Everyday Smoker Type Used: Cigarettes 2nd Hand Smoke Exposure: No Recent Foreign Travel: No Contact w/Someone Who Travel: No Recent Infectious Disease Expo: No Recent Hopitalizations: No Immunizations Up To Date Tetanus Booster (TDap): Less than 5yrs PED Vaccines UTD: No Date of Pneumonia Vaccine: Jul 26, 2009 Date of Influenza Vaccine: Sep 26, 2013 Seasonal Allergies Seasonal Allergies: No Surgeries History of Surgeries: Yes (REMOVAL OF TEETH, hernia, dnc, l leg amputation) Surgeries: Amputation, Gallbladder, Hysterectomy Respiratory History of Respiratory Disorde: Yes Respiratory Disorders: Asthma, Pneumonia, COPD, Emphysema Currently Using CPAP: No Currently Using BIPAP: No Cardiovascular History of Cardiac Disorders: No Neurological History of Neurological Disord: Yes Neurological Disorders: Stroke 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 System : No Hx 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 Disorders: Yes Sexually Transmitted Disease: No HIV/AIDS: No 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 Genitourinary History of Genitourinary Disor: No Gastrointestinal History of Gastrointestinal Di: Yes Gastrointestinal Disorders: Pancreatitis Musculoskeletal History of Musculoskeletal Dis: Yes Musculoskeletal Disorders: Amputee, Osteoporosis Endocrine History of Endocrine Disorders: No HEENT History of HEENT Disorders: Yes HEENT Disorders: Cataract Loss of Vision: Denies Hearing Impairment: Denies Cancer History of Cancer: No Psychosocial History of Psychiatric Problem: Yes Behavioral Health Disorders: Anxiety, Depression Integumentary History of Skin or Integumenta: Yes (LARGE SCRATCHES ON RT LEG) Blood Transfusions History of Blood Disorders: No Adverse Reaction to a Blood Tr: No Reviewed Nursing Assessment Reviewed/Agree w Nursing PMH: Yes Family Medical History Significant Family History: COPD, Diabetes Family Medial History: Alzheimer's disease 19 FATHER 19 MOTHER Asthma 19 FATHER Completed stroke 19 FATHER Deafness or hearing loss 19 FATHER Dementia 19 FATHER Diabetes mellitus 19 FATHER 19 MOTHER Headache disorder 19 FATHER Hypertension 19 FATHER 19 MOTHER Myocardial infarction 19 FATHER 19 MOTHER Respiratory disorder 19 FATHER No Family History of: Kidney disease Review of Systems Time Seen by Provider: 06:42 Constitutional: Sweats, Weakness, Malaise, No: Fever, Chills, Other Eyes: No: Pain, Vision change, Conjunctivae inflammation, Eyelid inflammation, Other, Redness ENT: Nose congestion, No: Ear pain, Ear discharge, Nose pain, Nose discharge, Mouth pain, Mouth swelling, Throat pain, Throat swelling, Other Respiratory: Cough, Dry, Shortness of breath, SOB with excertion Cardiovascular: Paroxysmal Noc. Dyspnea, Lt Headedness, No: Chest Pain, Palpitations, Orthopnea, Edema, Other Gastrointestinal: No: Nausea, Vomiting, Abdominal Pain, Diarrhea, Constipation , Melena, Hematochezia, Other Neurological: Weakness, Confusion Exam Exam Vital Signs Date Time Temp Pulse Resp B/P (MAP) Pulse Ox O2 Delivery O2 Flow Rate FiO2 08/06/17 06:00 89 14 127/84 (98) 99 Nasal Cannula 2.00 08/06/17 05:00 89 14 121/86 (98) 100 Nasal Cannula 2.00 08/06/17 04:00 98.0 87 18 116/82 (93) 100 Nasal Cannula 2.00 08/06/17 04:00 100 Nasal Cannula 2.00 08/06/17 03:00 93 20 107/80 (89) 100 Nasal Cannula 2.00 08/06/17 02:00 105 17 107/78 (88) 99 Nasal Cannula 2.00 08/06/17 01:11 113 21 91 Nasal Cannula 2.00 08/06/17 01:10 113 14 83 Nasal Cannula 2.00 08/06/17 01:00 121 08/06/17 01:00 121 17 104/79 (87) 94 Room Air 08/06/17 00:00 92 Room Air 08/06/17 00:00 98.8 125 20 117/74 (88) 92 Room Air 08/05/17 23:00 126 18 119/82 (94) 91 Room Air 08/05/17 22:00 124 18 112/80 (91) 93 Room Air 08/05/17 21:00 122 17 116/85 (95) 94 Room Air 08/05/17 20:29 90 98 21 08/05/17 20:00 110 17 99/70 (80) 94 Room Air 08/05/17 19:45 125 19 109/75 (86) 91 Room Air 08/05/17 19:40 98.3 93 16 96 Room Air 08/05/17 19:38 93 Room Air 08/05/17 19:36 99.3 109 28 104/75 (85) 94 Room Air 08/05/17 19:36 109 08/05/17 15:46 98.4 94 20 117/89 (98) 96 Room Air I & O 08/06/17 07:00 Intake Total 1745 ml Output Total 525 ml Balance 1220 ml General Appearance: No Apparent Distress, Cachetic, Thin, Other (awakes to sternal rub and then answers questions but is very drowsy.) HEENT: PERRL/EOMI, Other (dry mucous membranes with blue mucus material in the mouth.) Neck: Full Range of Motion, Non Tender, Supple Respiratory: Lungs Clear, Normal Breath Sounds Cardiovascular: Regular Rate, Rhythm, No Murmur Capillary Refill: Less Than 3 Seconds Extremity: Non Tender, No Calf Tenderness, Other (left AKA) Neurologic/Psychiatric: Depressed Affect, Disoriented x3, Motor Weakness Results Lab Laboratory Tests 08/05/17 15:43 08/06/17 02:45 Assessment/Plan Assessment/Plan Acetaminophen OD -Mucomyst PO UTI -Rocephin -Await cultures Acute renal failure -IVF Dehydration -IVF Metabolic acidosis probably secondary to acetaminophen -IVF and monitor. -- currently 125 -Will give 2 amps of NaHC03 -Continue to monitor COPD- stable -SVNs -Oxygen as needed-- currently oxygen is off and her Sp02 is 98% Hypomag -replace via protocol PT is now awake and alert doing better. No complications noted. Respiratory jha she is doing well. I am going to sign off and send patient to 4th floor . labs and CXR reviewed. Please call with any questions or concerns. 255 Clinical Quality Measures DVT/VTE Risk/Contraindication: Risk Factor Score Per Nursin RFS Level Per Nursing on Admit: 2=Moderate ASHLEIGH ORTEGA DO Aug 06, 2017 06:30
[2017-08-06] MEDS ORDERED: SODIUM BICARB 8.4% 50 MEQ/50 ML (ABBOTT) SYR IV ONE (06:45)
[2017-08-06] MEDS ORDERED: INFLUENZA TRIvalent 2017-2018 0.5 ML/45 MCG SYR IM ONE (07:00)
[2017-08-06] MEDS: MAGNESIUM 1 GM/100 ML IVPB 100 ML IV SCH ×2 (07:48→08:56)
[2017-08-06] MEDS ORDERED: morphine INJ 4 MG/ML 1 ML (VIAL/SYRINGE) IVP PRN (08:00)
--- NOTE | 2017-08-06 09:00 | Diagnostic Imaging Report ---
Portable upright radiograph of the chest. INDICATION: Tylenol overdose. Acute renal failure. FINDINGS: The lungs are hyperinflated. Interstitial thickening is seen likely secondary to vascular congestion similar to the previous exam. The heart size is borderline. No significant effusion. No pneumothorax. The mediastinum and lauren appear unremarkable. IMPRESSION: Mild vascular congestion. Dictated by: Dictated on workstation # [id number]
[2017-08-06] MEDS: RT-ALBUTEROL/IPRATROPIUM 3 ML (DUONEB) VIAL INH SCH ×2 (09:04→20:44)
[2017-08-06] MEDS: cefTRIAXone 1 GM/NS 50 ML IVPB IV SCH ×2 (09:58)
[2017-08-06] MEDS ORDERED: RT-ALBUINH INH (09:59)
[2017-08-06] MEDS ORDERED: PANT40TA3 PO (09:59)
[2017-08-06] MEDS ORDERED: OMEP20CA12 PO (09:59)
[2017-08-06] MEDS ORDERED: GABA-488 PO (09:59)
[2017-08-06] MEDS ORDERED: ONDA8TAB13 PO (10:12)
[2017-08-06] MEDS ORDERED: DICY10CA12 PO (10:12)
[2017-08-06] MEDS ORDERED: SIME80TA16 PO (10:12)
[2017-08-06] MEDS ORDERED: LIPA1CAP PO (10:12)
[2017-08-06] MEDS ORDERED: BUSP10TA95 PO (10:12)
[2017-08-06] MEDS: GABAPENTIN 300 MG (NEURONTIN) CAP PO SCH ×3 (11:34→21:11)
[2017-08-06] MEDS: GABAPENTIN 600 MG (NEURONTIN) TAB PO SCH ×3 (11:34→21:11)
--- NOTE | 2017-08-06 12:51 | History & Physical-Hospitalist ---
HPI History of Present Illness: HPI/Chief Complaint The patient is a 47-year-old white female well-known to me and this institution. She presented by ambulance to the emergency room last evening. She was very vague about the circumstances leading to her ambulance trip. The ambulance crew got a report of decreased level of alertness and altered mental status. This was given from her family. It is noted that she lives with her ex - and his present . She states that she believes that she had been sick for perhaps a week. She reported that all she can do was sleep. She was found to have toxic levels of acetaminophen in her blood. She thinks that she was taking Tylenol for fever and aches and pains. Subsequently it was reported this morning that she was growing a gram-negative dominique from both the urine and the blood. Date Seen 08/06/17 Time Seen by Provider: 12:48 Attending Physician Vivek Delgadillo DO PCP No,Local Physician Referring Physician Date of Admission Aug 05, 2017 at 17:10 Home Medications & Allergies Home Medications Reviewed patient Home Medication Reconciliation Form Allergies Allergies Coded Allergies ofloxacin (Verified Allergy, Mild, 08/10/16) Penicillins (Verified Allergy, Unknown, 08/10/16) amoxicillin (Verified Allergy, Unknown, 08/10/16) clavulanic acid (Verified Allergy, Unknown, 08/10/16) promethazine (Verified Allergy, Unknown, 08/10/16) propoxyphene (Verified Allergy, Unknown, 08/10/16) Past Qkjbnjd-Wacsht-Smjnfl Hx Patient Social History Alcohol Use: Denies Use Recreational Drug Use: Yes (ETOH- NOT FOR LAST SIX MONTHS) Smoking Status: Current Everyday Smoker Type Used: Cigarettes 2nd Hand Smoke Exposure: No Physical Abuse Screen: No Sexual Abuse: No Recent Foreign Travel: No Contact w/other who traveled: No Recent Hopitalizations: No Recent Infectious Disease Expo: No Immunizations Up To Date Tetanus Booster (TDap): Less than 5yrs Pediatric: No Date of Pneumonia Vaccine: Jul 26, 2009 Date of Influenza Vaccine: Sep 26, 2013 Seasonal Allergies Seasonal Allergies: No Surgeries Yes (REMOVAL OF TEETH, hernia, dnc, l leg amputation) Amputation, Gallbladder, Hysterectomy Respiratory Yes Currently Using CPAP: No Currently Using BIPAP: No Cardiovascular No Neurological Yes Stroke 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 System : No Hx 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 Disorders: Yes Sexually Transmitted Disease: No HIV/AIDS: No 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 Genitourinary No Gastrointestinal Yes Pancreatitis Musculoskeletal Yes Amputee, Osteoporosis Endocrine History of Endocrine Disorders: No HEENT History of HEENT Disorders: Yes HEENT Disorders: Cataract Loss of Vision: Denies Hearing Impairment: Denies Cancer No Psychosocial History of Psychiatric Problem: Yes Behavioral Health Disorders: Anxiety, Depression Integumentary History of Skin or Integumenta: Yes (LARGE SCRATCHES ON RT LEG) Blood Transfusions History of Blood Disorders: No Adverse Reaction to a Blood Tr: No Reviewed Nursing Assessment Reviewed/Agree w Nursing PMH: Yes Family Medical History Significant Family History: COPD, Diabetes Family Hx: Alzheimer's disease 19 FATHER 19 MOTHER Asthma 19 FATHER Completed stroke 19 FATHER Deafness or hearing loss 19 FATHER Dementia 19 FATHER Diabetes mellitus 19 FATHER 19 MOTHER Headache disorder 19 FATHER Hypertension 19 FATHER 19 MOTHER Myocardial infarction 19 FATHER 19 MOTHER Respiratory disorder 19 FATHER No Family History of: Kidney disease Review of Systems Constitutional: see HPI, chills, fever, malaise EENTM: no symptoms reported Respiratory: no symptoms reported Cardiovascular: no symptoms reported Gastrointestinal: no symptoms reported, loss of appetite, nausea Genitourinary: no symptoms reported Musculoskeletal: muscle weakness Skin: no symptoms reported Psychiatric/Neurological: No Symptoms Reported Physical Exam Physical Exam Vital Signs Vital Sign - Last 12Hours 08/05/17 08/05/17 08/06/17 15:46 20:29 01:10 Temp 98.4 Pulse 94 Resp 20 B/P (MAP) 117/89 (98) Pulse Ox 96 O2 Delivery Room Air O2 Flow Rate 2.00 FiO2 21 Capillary Refill : Less Than 3 Seconds General Appearance: Other (white female who appears much older than stated age. ) Eyes: Bilateral Eye Normal Inspection HEENT: Normal ENT Inspection Neck: Normal Inspection Respiratory: Chest Non Tender, Lungs Clear, Normal Breath Sounds, No Accessory Muscle Use, No Respiratory Distress Cardiovascular: Regular Rate, Rhythm, No Edema, No Gallop, No JVD, No Murmur, Normal Peripheral Pulses Gastrointestinal: Other Back: Normal Inspection, No CVA Tenderness Extremity: Other (left AK amputation) Neurologic/Psychiatric: Other Skin: Normal Color Lymphatic: No Adenopathy Results Results/Procedures Lab Laboratory Tests 08/05/17 15:43 08/06/17 02:45 Assessment/Plan Admission Diagnosis Toxic level of acetaminophen. 2.urinary tract infection with septicemia. 3.previous history of pancreatic pseudocysts. 4.COPD Assessment and Plan Continue IV drug therapy with Rocephin until culture and sensitivities are available. Clinical Quality Measures DVT/VTE Risk/Contraindication: Risk Factor Score Per Nursin RFS Level Per Nursing on Admit: 2=Moderate AUSTYN LUQUE MD Aug 06, 2017 12:51
[2017-08-06] MEDS ORDERED: RT-ALBUTEROL SULF 2.5 MG/3 ML PRE-MIX VIAL IH PRN (13:15)
[2017-08-06] MEDS ORDERED: ONDANSETRON 8 MG (ZOFRAN) ORAL DISSOLVE TAB PO PRN (13:15)
[2017-08-06] MEDS ORDERED: RT-ALBUTEROL HFA (VENTOLIN) PER PUFF IH PRN (13:15)
[2017-08-06] MEDS: LIPASE/AMYLASE/PROTEASE (PANCRELIPASE) 5,000 UNITS CAP PO SCH (16:11)
[2017-08-06] MEDS ORDERED: PROTEASE PO SCH (21:00)
[2017-08-06] MEDS ORDERED: [UNRECOGNIZED DRUG - OTHER] PO SCH (21:00)
[2017-08-06] MEDS ORDERED: AMYLASE PO SCH (21:00)
[2017-08-06] MEDS ORDERED: LIPASE PO SCH (21:00)
[2017-08-06] MEDS: NICOTINE 21 MG (NICODERM) PATCH TD SCH (21:11)
[2017-08-07 00:05] VITALS: BP 100/68
[2017-08-07 04:00] VITALS: BP 112/74
[2017-08-07] MEDS: DICYCLOMINE 10 MG (BENTYL) CAP PO PRN ×2 (05:08→16:06)
[2017-08-07 06:19] LABS: BASOPHILS % (AUTO) 0 % (0-10); EOSINOPHILS # (AUTO) 0.1 10^3/uL (0.0-0.3); EOSINOPHILS % (AUTO) 1 % (0-10); LYMPHOCYTES # (AUTO) 0.4 X 10^3 (1.0-4.0); LYMPHOCYTES % (AUTO) 3 % (12-44); MEAN CORPUSCULAR HEMOGLOBIN 25 PG (25-34); MEAN CORPUSCULAR HGB CONC 29 G/DL (32-36); MEAN CORPUSCULAR VOLUME 87 FL (80-99); MONOCYTES # (AUTO) 1.1 X 10^3 (0.0-1.0); MONOCYTES % (AUTO) 9 % (0-12); NEUTROPHILS % (AUTO) 87 % (42-75); PLATELET COUNT 113 10^3/uL (130-400); RED BLOOD COUNT 2.59 10^6/uL (4.35-5.85); WHITE BLOOD COUNT 12.7 10^3/uL (4.3-11.0)
[2017-08-07] MEDS: LIPASE/AMYLASE/PROTEASE (PANCRELIPASE) 5,000 UNITS CAP PO SCH ×3 (06:41→16:05)
[2017-08-07] MEDS: PANTOPRAZOLE 40 MG (PROTONIX) TAB PO SCH (06:41)
[2017-08-07 06:42] LABS: CALCIUM 8.1 MG/DL (8.5-10.1); CREATININE SERUM 2.04 MG/DL (0.60-1.30); MAGNESIUM 1.9 MG/DL (1.8-2.4); PHOSPHORUS 2.5 MG/DL (2.3-4.7); POTASSIUM 3.1 MMOL/L (3.6-5.0)
[2017-08-07] MEDS ORDERED: PANTOPRAZOLE 20 MG TABLET (PROTONIX) PO SCH (07:00)
[2017-08-07] MEDS: NS IV 1000 ML 1,000 ML IV SCH (07:06)
[2017-08-07] MEDS: RT-ALBUTEROL/IPRATROPIUM 3 ML (DUONEB) VIAL INH SCH ×2 (07:45→18:22)
[2017-08-07 08:00] VITALS: BP 113/64
[2017-08-07] MEDS: GABAPENTIN 100 MG (NEURONTIN) CAP PO SCH ×4 (08:38→20:37)
[2017-08-07] MEDS: busPIRone 10 MG (BUSPAR) TAB PO SCH (08:38)
[2017-08-07] MEDS: NICOTINE 21 MG (NICODERM) PATCH TD SCH (08:38)
[2017-08-07] MEDS: cefTRIAXone 1 GM/NS 50 ML IVPB IV SCH ×2 (08:39)
[2017-08-07] MEDS ORDERED: cefTRIAXone INJECTION 1,000 MG in NS (IVPB) 50 ML IV SCH (09:00)
[2017-08-07] MEDS ORDERED: IBUPROFEN TABLET 200 MG TAB PO PRN (11:00)
--- NOTE | 2017-08-07 11:08 | Progress Note-Hospitalist ---
Progress Note HPI/CC on Admission The patient is a 47-year-old white female well-known to me and this institution. She presented by ambulance to the emergency room last evening. She was very vague about the circumstances leading to her ambulance trip. The ambulance crew got a report of decreased level of alertness and altered mental status. This was given from her family. It is noted that she lives with her ex - and his present . She states that she believes that she had been sick for perhaps a week. She reported that all she can do was sleep. She was found to have toxic levels of acetaminophen in her blood. She thinks that she was taking Tylenol for fever and aches and pains. Subsequently it was reported this morning that she was growing a gram-negative dominique from both the urine and the blood. Progress Notes/Assess & Plan Date Seen 08/07/17 Time Seen by Provider: 10:00 Diagonsis/Assessment & Plan Chart Review: This is a 47 yoWF pt who EMS reported altered mental status. Pt was found to have sepsis from E. coli in blood and urine cx and appears to be alcaraz sensitive. On Rocephin since admission. Low fever at 100, WBC 12.7, Hgb low at 6.5, Creat 2.04 with admit creat of 2.38 Dr. 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 Abx were discussed and pt was assured that the fever will subside with continuing treatment. Pt denies having a PCP, but the pt is thinking about Dr. Roberson Physical exam stable. Pt states she moves around at home well Pt confirms receiving breathing treatments and states she is eating and drinking better Pt was informed that I will DC IV fluids Pt denies having a catheter. Requested pain meds. Pt states she was "borrowing" Hydrocodone from someone at home. Pt was informed that we will be monitoring Tylenol consumption AFVSS, Pleasant, O x 3, frail, thin RRR, Coarse BS all read No edema Laboratory Tests 08/07/17 05:22 Assessment: Sepsis due to E coli in blood and UTI Severe debility Hypokalemia Acute on CRF Anemia of chronic illness and kidney disease Leukocytosis Previous RAFFY Smoker Coarse BS all read Left AKA Plan: Labs in am Start regular diet instead of ADA Hydrocodone sparingly due to RAFFY in past and she "borrowed some" from someone at home Heplock IVF PO K+ supplement Monitor Tylenol consumption Scribed by Prema Plasencia under direct supervision of Dr. Ashleigh Neri. ASHLEIGH NERI DO Aug 07, 2017 11:08
[2017-08-07] MEDS ORDERED: IRON SUCROSE INJECTION 200 MG in NS (IVPB) 100 ML IV SCH (11:15)
[2017-08-07] MEDS: KCL 20 MEQ TAB (K-DUR) PO SCH ×2 (11:46→20:37)
[2017-08-07] MEDS: HYDROcodone/APAP 5 MG/325 MG (LORTAB) TAB PO PRN ×2 (11:59→20:38)
[2017-08-07 12:00] VITALS: BP 110/73
[2017-08-07 15:15] VITALS: BP 126/84
[2017-08-07 19:20] VITALS: BP 120/73
[2017-08-08] VITALS: BP 116/68
[2017-08-08 04:00] VITALS: BP 116/68
[2017-08-08 06:11] LABS: BASOPHILS % (AUTO) 0 % (0-10); EOSINOPHILS # (AUTO) 0.2 10^3/uL (0.0-0.3); EOSINOPHILS % (AUTO) 2 % (0-10); LYMPHOCYTES # (AUTO) 0.6 X 10^3 (1.0-4.0); LYMPHOCYTES % (AUTO) 5 % (12-44); MEAN CORPUSCULAR HEMOGLOBIN 25 PG (25-34); MEAN CORPUSCULAR HGB CONC 28 G/DL (32-36); MEAN CORPUSCULAR VOLUME 90 FL (80-99); MEAN PLATELET VOLUME 13.3 FL (7.4-10.4); MONOCYTES # (AUTO) 1.1 X 10^3 (0.0-1.0); MONOCYTES % (AUTO) 9 % (0-12); NEUTROPHILS # (AUTO) 10.3 X 10^3 (1.8-7.8); NEUTROPHILS % (AUTO) 84 % (42-75); PLATELET COUNT 145 10^3/uL (130-400); RED CELL DISTRIBUTION WIDTH 17.2 % (10.0-14.5); WHITE BLOOD COUNT 12.3 10^3/uL (4.3-11.0)
[2017-08-08 06:34] LABS: ALBUMIN 2.6 GM/DL (3.2-4.5); BILIRUBIN,TOTAL 0.2 MG/DL (0.1-1.0); CALCIUM 8.4 MG/DL (8.5-10.1); CREATININE SERUM 1.76 MG/DL (0.60-1.30); MAGNESIUM 1.7 MG/DL (1.8-2.4); PHOSPHORUS 2.6 MG/DL (2.3-4.7); POTASSIUM 4.1 MMOL/L (3.6-5.0); TOTAL PROTEIN 4.9 GM/DL (6.4-8.2)
[2017-08-08] MEDS: LIPASE/AMYLASE/PROTEASE (PANCRELIPASE) 5,000 UNITS CAP PO SCH ×2 (06:44→13:09)
[2017-08-08] MEDS: PANTOPRAZOLE 40 MG (PROTONIX) TAB PO SCH (06:44)
[2017-08-08] MEDS: HYDROcodone/APAP 5 MG/325 MG (LORTAB) TAB PO PRN (06:53)
[2017-08-08] MEDS: RT-ALBUTEROL/IPRATROPIUM 3 ML (DUONEB) VIAL INH SCH (07:29)
[2017-08-08 08:14] VITALS: BP 122/81
[2017-08-08 08:15] VITALS: BP 116/68
[2017-08-08] MEDS ORDERED: PATCH REMOVAL TP SCH (08:59)
[2017-08-08] MEDS ORDERED: RT-ALBUTEROL SULF 2.5 MG/3 ML PRE-MIX VIAL INH PRN (09:00)
[2017-08-08] MEDS: GABAPENTIN 100 MG (NEURONTIN) CAP PO SCH ×2 (09:44→13:09)
[2017-08-08] MEDS: cefTRIAXone 1 GM/NS 50 ML IVPB IV SCH ×2 (09:44)
[2017-08-08] MEDS: NICOTINE 21 MG (NICODERM) PATCH TD SCH (09:44)
[2017-08-08] MEDS: busPIRone 10 MG (BUSPAR) TAB PO SCH (09:44)
[2017-08-08] MEDS: KCL 20 MEQ TAB (K-DUR) PO SCH (09:44)
--- NOTE | 2017-08-08 10:39 | Discharge Summary-Hospitalist ---
Diagnosis/Chief Complaint Date of Admission Aug 05, 2017 at 17:10 Date of Discharge Admission Diagnosis Toxic level of acetaminophen. 2.urinary tract infection with septicemia. 3.previous history of pancreatic pseudocysts. 4.COPD Discharge Diagnosis Assessment: Sepsis due to E coli in blood and UTI Severe debility Hypokalemia Acute on CRF Anemia of chronic illness and kidney disease and iron def Leukocytosis Previous RAFFY Smoker Coarse BS all read Left AKA Discharge Summary Discharge Physical Examination Allergies: Coded Allergies: ofloxacin (Verified Allergy, Mild, 08/10/16) Penicillins (Verified Allergy, Unknown, Pt has received Ceftriaxone & Cefepime in the past w/o issue, 08/06/17) amoxicillin (Verified Allergy, Unknown, 08/10/16) clavulanic acid (Verified Allergy, Unknown, 08/10/16) promethazine (Verified Allergy, Unknown, 08/10/16) propoxyphene (Verified Allergy, Unknown, 08/10/16) Vitals & I&Os Vital Signs Date Time Temp Pulse Resp B/P (MAP) Pulse Ox O2 Delivery O2 Flow Rate FiO2 08/08/17 10:40 94 2.50 08/08/17 08:15 114 30 08/08/17 08:14 100.7 20 122/81 (95) Nasal Cannula Hospital Course Chart Review: Max fever 100.7 WBC 12.3 Hgb up to 7.1 Iron less than, 10 empirically stared on Venofer iron infusions Patient Interview: Pt states she is ready to go home and feels strong enough to DC. Venofer was discussed and pt confirms having some yesterday. Pt was informed that I can give her another dose before she DCs, but she will need to be supplemented after DC. Pt denies iron pills normally. Pt confirms pharmacy as [facility] Pt states her ride will be able to pick her up today around 1100. I informed the pt that it may not be by 1100 that she DCs. Physical exam stable. Lungs sound much better today Pt asked if insurance could pay for a BP cuff, they do not Pt denies having O2 or breathing machine at home. It is possible that she has had O2 before. I informed the pt that I will get her an appointment with Dr. Puente. AFVSS, pleasant, improved RRR, CTAB much improved BS No edema Plan: Abx and Iron to [facility] Follow up with Dr. Puente Home O2 eval Scribed by Prema Plasencia under direct supervision of Dr. Ashleigh Neri. Hospital course: patient had a standard hospital course. Chronic debility played a role in her acute issue of urosepsis that responded to aggressive treatment of abx and IVF. Iron level was very low which was multi-factorial with anemia of chronic disease and iron def and poor nutrition so given Venofer two doses before DC and was sent home on iron therapy along with her abx and Neb machine. O2 was evaluated and was approved for 2.5L/min. Labs (last 24 hrs) Laboratory Tests 08/08/17 05:43: White Blood Count 12.3H, Red Blood Count 2.80L, Hemoglobin 7.1L, Hematocrit 25L , Mean Corpuscular Volume 90, Mean Corpuscular Hemoglobin 25, Mean Corpuscular Hemoglobin Concent 28L, Red Cell Distribution Width 17.2H, Platelet Count 145, Mean Platelet Volume 13.3H, Neutrophils (%) (Auto) 84H, Lymphocytes (%) (Auto) 5L, Monocytes (%) (Auto) 9, Eosinophils (%) (Auto) 2, Basophils (%) (Auto) 0, Neutrophils # (Auto) 10.3H, Lymphocytes # (Auto) 0.6L, Monocytes # (Auto) 1.1H, Eosinophils # (Auto) 0.2, Basophils # (Auto) 0.0, Sodium Level 143, Potassium Level 4.1, Chloride Level 116H, Carbon Dioxide Level 14L, Anion Gap 13, Blood Urea Nitrogen 28H, Creatinine 1.76H, Estimat Glomerular Filtration Rate 31, BUN/ Creatinine Ratio 16, Glucose Level 86, Calcium Level 8.4L, Phosphorus Level 2.6 , Magnesium Level 1.7L, Total Bilirubin 0.2, Aspartate Amino Transf (AST/SGOT) 18, Alanine Aminotransferase (ALT/SGPT) 34, Alkaline Phosphatase 216H, Total Protein 4.9L, Albumin 2.6L Microbiology 08/05/17 Blood Culture - Preliminary, Resulted Escherichia Coli See Comments 08/05/17 MRSA Screen - Final, Complete MRSA not isolated 08/05/17 Urine Culture - Final, Complete Escherichia Coli Pending Labs Laboratory Tests 08/08/17 05:43: White Blood Count 12.3, Red Blood Count 2.80, Hemoglobin 7.1, Hematocrit 25, Mean Corpuscular Volume 90, Mean Corpuscular Hemoglobin 25, Mean Corpuscular Hemoglobin Concent 28, Red Cell Distribution Width 17.2, Platelet Count 145, Mean Platelet Volume 13.3, Neutrophils (%) (Auto) 84, Lymphocytes (%) (Auto) 5, Monocytes (%) (Auto) 9, Eosinophils (%) (Auto) 2, Basophils (%) (Auto) 0, Neutrophils # (Auto) 10.3, Lymphocytes # (Auto) 0.6, Monocytes # (Auto) 1.1, Eosinophils # (Auto) 0.2, Basophils # (Auto) 0.0, Sodium Level 143, Potassium Level 4.1, Chloride Level 116, Carbon Dioxide Level 14, Anion Gap 13, Blood Urea Nitrogen 28, Creatinine 1.76, Estimat Glomerular Filtration Rate 31, BUN/ Creatinine Ratio 16, Glucose Level 86, Calcium Level 8.4, Phosphorus Level 2.6, Magnesium Level 1.7, Total Bilirubin 0.2, Aspartate Amino Transf (AST/SGOT) 18, Alanine Aminotransferase (ALT/SGPT) 34, Alkaline Phosphatase 216, Total Protein 4.9, Albumin 2.6 Discharge Home Medications: Active Scripts Active Ferrex 150 Forte Capsule (Iron Ps Cmplx/Vit B12/FA) 1 Each Capsule 1 Each PO DAILY Iprat-Albut 0.5-3(2.5) mg/3 ml (Ipratropium/Albuterol Sulfate) 3 Ml Ampul.neb 3 Ml IH Q4H PRN Keflex (Cephalexin) 500 Mg Capsule 500 Mg PO QID [Hydrocodone Bit/Acetaminophen] 5 Tab 1 Tab PO Q6HR PRN Reported Dicyclomine HCl 10 Mg Capsule 10 Mg PO QID PRN Ondansetron Odt (Ondansetron) 8 Mg Tab.rapdis 8 Mg PO TID PRN Simethicone 80 Mg Tab.chew 2-4 Tab PO PC PRN Pancreaze 16,800 Unit Cap (Lipase/Protease/Amylase) 1 Each Capsule.dr 1 Cap PO TID Buspirone HCl 10 Mg Tablet 10 Mg PO DAILY Proair Hfa (Albuterol Sulfate) 1 Puff Puff 2 Puff INH Q6H PRN Omeprazole 20 Mg Capsule. 20 Mg PO DAILY Pantoprazole Sodium 40 Mg Tablet. 40 Mg PO DAILY Gabapentin 300 Mg Capsule 300 Mg PO QID TAKES ALONG WITH 600MG FOR A TOTAL DAILY DOSE OF 900MG 4 TIMES DAILY Symbicort 160-4.5 Mcg Inhaler (Budesonide/Formoterol Fumarate) 10.2 Gm Hfa.aer.ad 2 Puff IH BID Gabapentin 600 Mg Tablet 600 Mg PO QID TAKES ALONG WITH 300MG CAPSULE FOR A TOTAL DOSE OF 900MG 4 TIMES DAILY Instructions to patient/family Please see electronic discharge instructions given to patient. Clinical Quality Measures DVT/VTE Risk/Contraindication: Risk Factor Score Per Nursin RFS Level Per Nursing on Admit: 2=Moderate ASHLEIGH NERI DO Aug 08, 2017 10:39
[2017-08-08] MEDS ORDERED: CEPH-507 PO (11:04)
[2017-08-08] MEDS ORDERED: IPRA3AMP IH (11:04)
[2017-08-08] MEDS ORDERED: IRON1CAP9 PO (11:04)
[2017-08-08] MEDS ORDERED: Hydrocodone Bit/Acetaminophen PO (11:04)
[2017-08-08] MEDS ORDERED: IRON SUCROSE 200 MG/NS 100 ML (IVPB) IV NR ×2 (11:30)
[2017-08-08 12:00] VITALS: BP 95/67
[2017-08-08] MEDS ORDERED: RT-ALBUTEROL/IPRATROPIUM 3 ML (DUONEB) VIAL INH SCH (15:00)
== END 2017-08-08 14:00 | disposition home or self-care (01) | DRG 917 ==
LOC: EDUNIT# 15:38 → ER 15:39 → ICU 17:10 → 4TH 08-06 11:00
PROVIDERS: ADMIT Internal Medicine; ATTEND Internal Medicine Critical Care Medicine
DX: T39.1X4A Poisoning by 4-Aminophenol derivatives, undetermined, initial encounter (principal); A41.51 Sepsis due to Escherichia coli [E. coli]; N39.0 Urinary tract infection, site not specified; N17.9 Acute kidney failure, unspecified; E87.2 Acidosis; E86.0 Dehydration; E87.6 Hypokalemia; E83.42 Hypomagnesemia; D63.1 Anemia in chronic kidney disease; N18.9 Chronic kidney disease, unspecified; J43.8 Other emphysema; D50.9 Iron deficiency anemia, unspecified; F17.210 Nicotine dependence, cigarettes, uncomplicated; M81.0 Age-related osteoporosis without current pathological fracture; F41.9 Anxiety disorder, unspecified; F32.9 Major depressive disorder, single episode, unspecified; R53.81 Other malaise; B96.20 Unspecified Escherichia coli [E. coli] as the cause of diseases classified elsewhere; Z86.73 Personal history of transient ischemic attack (TIA), and cerebral infarction without residual deficits; Z90.710 Acquired absence of both cervix and uterus; Z89.612 Acquired absence of left leg above knee
CPT/HCPCS: 36415; 51702; 71010; 80048; 80053; 80306; 80320; 80329; 81000; 82150; 83540; 83605; 83690; 83735; 84100; 84443; 84484; 85007; 85025; 85027; 85610; 85730; 87040; 87081; 87088; 87186; 93005; 94640; 94664; 94760; 94761; 96365; 96367

== ENCOUNTER → 2017-10-31 | Emergency (ER) | payer MEDICAID ==
[~2017-10-31] VITALS: Ht 152.4 cm; Wt 38.6 kg
[~2017-10-31] MED LIST changes: +BUSP10TA95 PO; +CEPH-507 PO; +DICY10CA12 PO; -HYDR-3816 PO; +HYDROcodone/APAP 5 MG/325 MG (LORTAB) TAB PO ONE; +Hydrocodone Bit/Acetaminophen PO; +IPRA3AMP IH; +IRON1CAP9 PO; +LIPA1CAP PO; +NS IV 1000 ML 1,000 ML IV SCH; +OMEP20CA12 PO; +ONDA4TAB8 SL; +ONDA8TAB13 PO; +ONDANSETRON 4 MG/2 ML (SDV) Z0FRAN IVP ONE; +PANT40TA3 PO; +RT-ALBUINH INH; +RT-ALBUTEROL/IPRATROPIUM 3 ML (DUONEB) VIAL INH ONE; +SIME80TA16 PO; +cefTRIAXone INJECTION 1,000 MG in NS (IVPB) 100 ML IV ONE
[2017-10-31 15:30] LABS: BILIRUBIN,URINE NEGATIVE (NEGATIVE); CLARITY,URINE CLEAR; COLOR,URINE YELLOW; GLUCOSE, URINE (UA) NEGATIVE (NEGATIVE); KETONES,URINE NEGATIVE (NEGATIVE); LEUKOCYTE ESTERASE ,URINE 2+ (NEGATIVE); NITRITE,URINE NEGATIVE (NEGATIVE); PH,URINE 6 (5-9); PROTEIN,URINE 2+ (NEGATIVE); UROBILINOGEN,URINE NORMAL (NORMAL)
[2017-10-31 15:37] LABS: RBC,URINE RARE /HPF
[2017-10-31 15:38] LABS: BACTERIA,URINE FEW /HPF; SQUAMOUS EPITHELIAL CELL,UR 0-2 /HPF; WBC,URINE >100 /HPF
[2017-10-31 16:49] LABS: BASOPHILS # (AUTO) 0.1 10^3/uL (0.0-0.1); BASOPHILS % (AUTO) 1 % (0-10); EOSINOPHILS # (AUTO) 0.2 10^3/uL (0.0-0.3); EOSINOPHILS % (AUTO) 2 % (0-10); HEMATOCRIT 36 % (35-52); HEMOGLOBIN 10.8 G/DL (11.5-16.0); LYMPHOCYTES # (AUTO) 1.8 X 10^3 (1.0-4.0); LYMPHOCYTES % (AUTO) 23 % (12-44); MEAN CORPUSCULAR HEMOGLOBIN 30 PG (25-34); MEAN CORPUSCULAR HGB CONC 30 G/DL (32-36); MEAN CORPUSCULAR VOLUME 99 FL (80-99); MEAN PLATELET VOLUME 10.6 FL (7.4-10.4); MONOCYTES # (AUTO) 0.8 X 10^3 (0.0-1.0); MONOCYTES % (AUTO) 11 % (0-12); NEUTROPHILS # (AUTO) 5.1 X 10^3 (1.8-7.8); NEUTROPHILS % (AUTO) 64 % (42-75); PLATELET COUNT 293 10^3/uL (130-400); RED BLOOD COUNT 3.58 10^6/uL (4.35-5.85); RED CELL DISTRIBUTION WIDTH 17.9 % (10.0-14.5)
[2017-10-31 17:10] LABS: ALANINE AMINOTRANSFERASE < 6 U/L (0-55); ALBUMIN 3.8 GM/DL (3.2-4.5); ALKALINE PHOSPHATASE 68 U/L (40-136); BILIRUBIN,TOTAL 0.1 MG/DL (0.1-1.0); BUN/CREATININE RATIO 17; CARBON DIOXIDE 17 MMOL/L (21-32); CHLORIDE 113 MMOL/L (98-107); CREATININE SERUM 1.65 MG/DL (0.60-1.30); GFR ESTIMATED 33; GLUCOSE 96 MG/DL (70-105); LIPASE 58 U/L (8-78); POTASSIUM 4.8 MMOL/L (3.6-5.0); SODIUM 138 MMOL/L (135-145); TOTAL PROTEIN 7.8 GM/DL (6.4-8.2)
--- NOTE | 2017-10-31 17:38 | Diagnostic Imaging Report ---
CLINICAL INDICATION: Patient with shortness of breath. EXAM: Chest x-ray PA and lateral views. COMPARISONS: Chest x-ray dated 08/06/2017. FINDINGS: Lungs/pleura: Hyperinflated lungs are again seen. There is improved aeration of both lungs. There is suspected mild atelectasis or scarring in the middle lobe and/or lingular region. There is no interval lung infiltrate. There is no pneumothorax. There is no pleural effusion. Mediastinum: Unremarkable. Pulmonary vasculature: Unremarkable. Heart: Unremarkable. Bones/extrathoracic soft tissue: Unremarkable. IMPRESSION: 1: There is improved aeration of both lungs compared to the prior study with mild atelectasis or scarring in the middle lobe and/or lingular region. 2: Stable hyperinflated lungs. 3: Otherwise, there is no radiographic evidence of acute cardiopulmonary process. Dictated by: Dictated on workstation # [id number]
--- NOTE | 2017-10-31 18:04 | ED General ---
General Chief Complaint: Abdominal/GI Problems Stated Complaint: LEFT FLANK PAIN/NAUSEA Nursing Triage Note: TO ROOM PER W/C C/O PAIN ON L SIDE FOR 2 DAYS Nursing Sepsis Screen: No Definite Risk Source of Information: Patient Exam Limitations: No Limitations History of Present Illness Date Seen by Provider: Oct 31, 2017 Time Seen by Provider: 15:25 Initial Comments This 47-year-old woman presents to the emergency room with multiple complaints including left lower back/flank pain, coughing, wheezing, and pain with cough and deep breathing. She has significant COPD but continues to smoke. She does use nebulizer treatments at home. She was noted on UA to have a significant urinary tract infection without hematuria. She is afebrile with normal vital signs. Allergies and Home Medications Allergies Coded Allergies: ofloxacin (Verified Allergy, Mild, 08/10/16) Penicillins (Verified Allergy, Unknown, Pt has received Ceftriaxone & Cefepime in the past w/o issue, 08/06/17) amoxicillin (Verified Allergy, Unknown, 08/10/16) clavulanic acid (Verified Allergy, Unknown, 08/10/16) promethazine (Verified Allergy, Unknown, 08/10/16) propoxyphene (Verified Allergy, Unknown, 08/10/16) Home Medications Albuterol Sulfate 1 Puff Puff, 2 PUFF INH Q6H PRN for SHORTNESS OF BREATH, ( Reported) Budesonide/Formoterol Fumarate 10.2 Gm Hfa.aer.ad, 2 PUFF IH BID, (Reported) Buspirone HCl 10 Mg Tablet, 10 MG PO DAILY, (Reported) Cephalexin 500 Mg Capsule, 500 MG PO TID Prescribed by: FER ELIZALDE on 10/31/17 1802 Dicyclomine HCl 10 Mg Capsule, 10 MG PO QID PRN for STOMACH UPSET, (Reported) Gabapentin 600 Mg Tablet, 600 MG PO QID, (Reported) TAKES ALONG WITH 300MG CAPSULE FOR A TOTAL DOSE OF 900MG 4 TIMES DAILY Gabapentin 300 Mg Capsule, 300 MG PO QID, (Reported) TAKES ALONG WITH 600MG FOR A TOTAL DAILY DOSE OF 900MG 4 TIMES DAILY Ipratropium/Albuterol Sulfate 3 Ml Ampul.neb, 3 ML IH Q4H PRN for SHORTNESS OF BREATH Prescribed by: ELVIS NERI on 08/08/17 1104 Iron Ps Cmplx/Vit B12/FA 1 Each Capsule, 1 EACH PO DAILY Prescribed by: ELVIS NERI on 08/08/17 1104 Lipase/Protease/Amylase 1 Each Capsule.dr, 1 CAP PO TID, (Reported) Omeprazole 20 Mg Capsule.dr, 20 MG PO DAILY, (Reported) Ondansetron 8 Mg Tab.rapdis, 8 MG PO TID PRN for NAUSEA/VOMITING-1ST LINE, ( Reported) Ondansetron 4 Mg Tab.rapdis, 4 MG SL Q4H PRN for NAUSEA/VOMITING-1ST LINE Prescribed by: FER ELIZALDE on 10/31/171801 Pantoprazole Sodium 40 Mg Tablet.dr, 40 MG PO DAILY, (Reported) Prednisone 20 Mg Tab, 20 MG PO DAILY Prescribed by: FER ELIZALDE on 10/31/171801 Simethicone 80 Mg Tab.chew, 2-4 TAB PO PC PRN for INDIGESTION, (Reported) [Hydrocodone Bit/Acetaminophen] 5 TAB, 1 TAB PO Q6HR PRN for PAIN-MODERATE Prescribed by: ELVIS NERI on 08/08/17 110 Patient Home Medication List Home Medication List Reviewed: Yes Constitutional: no symptoms reported EENTM: no symptoms reported Respiratory: see HPI Cardiovascular: no symptoms reported Gastrointestinal: no symptoms reported Genitourinary: see HPI : No Musculoskeletal: no symptoms reported Skin: no symptoms reported Psychiatric/Neurological: No Symptoms Reported Hematologic/Lymphatic: No Symptoms Reported Past Hcxymdu-Ghuejf-Gvfciw Hx Patient Social History Alcohol Use: Denies Use Recreational Drug Use: Yes (ETOH- NOT FOR LAST SIX MONTHS) Smoking Status: Current Everyday Smoker Type Used: Cigarettes 2nd Hand Smoke Exposure: No Recent Foreign Travel: No Contact w/Someone Who Travel: No Recent Infectious Disease Expo: No Recent Hopitalizations: No Immunizations Up To Date Tetanus Booster (TDap): Less than 5yrs PED Vaccines UTD: No Date of Pneumonia Vaccine: Jul 26, 2009 Date of Influenza Vaccine: Sep 26, 2013 Seasonal Allergies Seasonal Allergies: No Surgeries History of Surgeries: Yes (REMOVAL OF TEETH, hernia, dnc, l leg amputation) Surgeries: Amputation (left lower extremity), Gallbladder, Hysterectomy Respiratory History of Respiratory Disorde: Yes Respiratory Disorders: Asthma, Pneumonia, COPD, Emphysema Currently Using CPAP: No Currently Using BIPAP: No Cardiovascular History of Cardiac Disorders: No Neurological History of Neurological Disord: Yes Neurological Disorders: Stroke 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 System Hx 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 Disorders: Yes Sexually Transmitted Disease: No HIV/AIDS: No 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 Genitourinary History of Genitourinary Disor: No Gastrointestinal History of Gastrointestinal Di: Yes Gastrointestinal Disorders: Pancreatitis Musculoskeletal History of Musculoskeletal Dis: Yes Musculoskeletal Disorders: Amputee, Osteoporosis Endocrine History of Endocrine Disorders: No HEENT History of HEENT Disorders: Yes HEENT Disorders: Cataract Loss of Vision: Denies Hearing Impairment: Denies Cancer History of Cancer: No Psychosocial History of Psychiatric Problem: Yes Behavioral Health Disorders: Anxiety, Depression Integumentary History of Skin or Integumenta: Yes (LARGE SCRATCHES ON RT LEG) Blood Transfusions History of Blood Disorders: No Adverse Reaction to a Blood Tr: No Family Medical History Significant Family History: COPD, Diabetes Family Medial History: Alzheimer's disease 19 FATHER 19 MOTHER Asthma 19 FATHER Completed stroke 19 FATHER Deafness or hearing loss 19 FATHER Dementia 19 FATHER Diabetes mellitus 19 FATHER 19 MOTHER Headache disorder 19 FATHER Hypertension 19 FATHER 19 MOTHER Myocardial infarction 19 FATHER 19 MOTHER Respiratory disorder 19 FATHER No Family History of: Kidney disease Physical Exam Vital Signs Vital Signs - First Documented 10/31/17 10/31/17 16:04 16:58 Temp 97.0 Pulse 83 Resp 18 B/P (MAP) 113/87 (96) Pulse Ox 9 O2 Delivery Room Air O2 Flow Rate 2.00 Capillary Refill : Less Than 3 Seconds General Appearance: No Apparent Distress, WD/WN HEENT: PERRL/EOMI, Normal ENT Inspection Neck: Normal Inspection Respiratory: No Accessory Muscle Use, No Respiratory Distress, Crackles, Rhonci , Wheezing Cardiovascular: Regular Rate, Rhythm, No Edema, No Murmur Gastrointestinal: Normal Bowel Sounds, Soft, Tenderness (mild, generalized) Back: Normal Inspection, No CVA Tenderness Extremity: No Pedal Edema, Other (amputation noted) Neurologic/Psychiatric: Alert, Oriented x3, No Motor/Sensory Deficits, Normal Mood/Affect, anesthesiologist and critical care II-XII Norm as Tested Skin: Normal Color, Warm/Dry Progress/Results/Core Measures Suspected Sepsis Recent Fever Within 48 Hours: No Infection Criteria Present: None New/Unexplained Altered Menta: No Sepsis Screen: No Definite Risk Sepsis Diagnosis: SIRS Temperature:97.0 Pulse: 83 Respiratory Rate: 18 Laboratory Tests 10/31/17 16:43: White Blood Count 8.0 Blood Pressure 113 /87 Mean: 96 Laboratory Tests 10/31/17 16:43: Creatinine 1.65H, Platelet Count 293, Total Bilirubin 0.1 Results/Orders Lab Results Laboratory Tests Test 10/31/17 15:25 10/31/17 16:43 Range/Units Urine Color YELLOW Urine Clarity CLEAR Urine pH 6 5-9 Urine Specific [place] 1.015 L 1.016-1.022 Urine Protein 2+ H NEGATIVE Urine Glucose (UA) NEGATIVE NEGATIVE Urine Ketones NEGATIVE NEGATIVE Urine Nitrite NEGATIVE NEGATIVE Urine Bilirubin NEGATIVE NEGATIVE Urine Urobilinogen NORMAL NORMAL MG/DL Urine Leukocyte Esterase 2+ H NEGATIVE Urine RBC (Auto) NEGATIVE NEGATIVE Urine RBC RARE /HPF Urine WBC >100 H /HPF Urine Squamous Epithelial Cells 0-2 /HPF Urine Crystals NONE /LPF Urine Bacteria FEW H /HPF Urine Casts NONE /LPF Urine Mucus NEGATIVE /LPF Urine Culture Indicated YES White Blood Count 8.0 4.3-11.0 10^3/uL Red Blood Count 3.58 L 4.35-5.85 10^6/uL Hemoglobin 10.8 L 11.5-16.0 G/DL Hematocrit 36 35-52 % Mean Corpuscular Volume 99 80-99 FL Mean Corpuscular Hemoglobin 30 25-34 PG Mean Corpuscular Hemoglobin Concent 30 L 32-36 G/DL Red Cell Distribution Width 17.9 H 10.0-14.5 % Platelet Count 293 130-400 10^3/uL Mean Platelet Volume 10.6 H 7.4-10.4 FL Neutrophils (%) (Auto) 64 42-75 % Lymphocytes (%) (Auto) 23 12-44 % Monocytes (%) (Auto) 11 0-12 % Eosinophils (%) (Auto) 2 0-10 % Basophils (%) (Auto) 1 0-10 % Neutrophils # (Auto) 5.1 1.8-7.8 X 10^3 Lymphocytes # (Auto) 1.8 1.0-4.0 X 10^3 Monocytes # (Auto) 0.8 0.0-1.0 X 10^3 Eosinophils # (Auto) 0.2 0.0-0.3 10^3/uL Basophils # (Auto) 0.1 0.0-0.1 10^3/uL Sodium Level 138 135-145 MMOL/L Potassium Level 4.8 3.6-5.0 MMOL/L Chloride Level 113 H 98-107 MMOL/L Carbon Dioxide Level 17 L 21-32 MMOL/L Anion Gap 8 5-14 MMOL/L Blood Urea Nitrogen 28 H 7-18 MG/DL Creatinine 1.65 H 0.60-1.30 MG/DL Estimat Glomerular Filtration Rate 33 BUN/Creatinine Ratio 17 Glucose Level 96 70-105 MG/DL Calcium Level 9.0 8.5-10.1 MG/DL Total Bilirubin 0.1 0.1-1.0 MG/DL Aspartate Amino Transf (AST/SGOT) 8 5-34 U/L Alanine Aminotransferase (ALT/SGPT) < 6 0-55 U/L Alkaline Phosphatase 68 40-136 U/L C-Reactive Protein High Sensitivity 0.25 0.00-0.50 MG/DL Total Protein 7.8 6.4-8.2 GM/DL Albumin 3.8 3.2-4.5 GM/DL Lipase 58 8-78 U/L My Orders Orders - FER MONTEIRO MD Cbc With Automated Diff (10/31/17 16:34) Comprehensive Metabolic Panel (10/31/17 16:34) Hs C Reactive Protein (10/31/17 16:34) Chest Pa/Lat (2 View) (10/31/17 16:34) Saline Lock/Iv-Start (10/31/17 16:34) Albuterol/Ipra Inhalation Soln (Duoneb I (10/31/17 16:45) Svn Sm Volume Nebulizer Rt-Rfs (10/31/17 16:34) Tramadol Tablet (Ultram Tablet) (10/31/17 16:45) Ceftriaxone Injection (Rocephin Injectio (10/31/17 16:45) Lipase (10/31/17 16:38) Ondansetron Injection (Zofran Injectio (10/31/17 17:00) Saline Lock/Iv-Start (10/31/17 17:15) Ns Iv 1000 Ml (Sodium Chloride 0.9%) (10/31/17 17:15) Hydrocodone/Apap 5/325 Tablet (Lortab 5 (10/31/17 18:00) Medications Given in ED Current Medications Medications Dose Ordered Sig/Ely Route Start Time Stop Time Status Last Admin Dose Admin Acetaminophen/ Hydrocodone Bitart 1 tab ONCE ONCE PO 10/31/17 18:00 10/31/17 18:01 DC 10/31/17 18:14 1 TAB Albuterol/ Ipratropium 3 ml ONCE ONCE INH 10/31/17 16:45 10/31/17 16:46 DC 10/31/17 16:54 3 ML Ceftriaxone Sodium 1000 mg/ Sodium Chloride 100 ml @ 200 mls/hr ONCE ONCE IV 10/31/17 16:45 10/31/17 17:14 DC 10/31/17 17:05 200 MLS/HR Ondansetron HCl 8 mg ONCE ONCE IVP 10/31/17 17:00 10/31/17 17:01 DC 10/31/17 17:03 8 MG Tramadol HCl 50 mg ONCE ONCE PO 10/31/17 16:45 10/31/17 16:46 DC 10/31/17 17:02 50 MG Vital Signs/I&O Vital Sign - Last 12Hours 10/31/17 10/31/17 16:04 16:58 Temp 97.0 Pulse 83 Resp 18 B/P (MAP) 113/87 (96) Pulse Ox 9 97 O2 Delivery Room Air Nasal Cannula O2 Flow Rate 2.00 Capillary Refill : Less Than 3 Seconds Blood Pressure Mean: 96 Progress Note : Progress Note Patient had wheezes and coarse breath sounds with diminished air movement bilaterally suggestive of COPD exacerbation. She was given a DuoNeb treatment. Chest x-ray showed no evidence of pneumonia and in fact had improved from prior. She was found to have elevated creatinine and was administered a liter of normal saline. Zofran was given for her nausea. Her significant urinary tract infection was treated with Rocephin 1 g IV. She has a penicillin allergy but review of chart notes she has been given Rocephin and Keflex in the past. Prednisone was prescribed for COPD exacerbation. I strongly urged the patient to work toward quitting smoking. I gave her resources for the smoking cessation class and pulmonary rehabilitation. Ultram and hydrocodone 1 were given for pain management. Patient claims she has an adverse reaction to Toradol which causes headache. Diagnostic Imaging Diagonstic Imaging: Xray Plain Films/CT/US/NM/MRI: chest Comments Chest x-ray viewed by me and report reviewed. See report below: NAME: [facility] REC#: [id number] PT STATUS: REG ER : 1970 PHYSICIAN: FER MONTEIRO MD ADMIT DATE: 10/31/17/ER Draft Date of Exam:10/31/17 CHEST PA/LAT (2 VIEW) CLINICAL INDICATION: Patient with shortness of breath. EXAM: Chest x-ray PA and lateral views. COMPARISONS: Chest x-ray dated 08/06/2017. FINDINGS: Lungs/pleura: Hyperinflated lungs are again seen. There is improved aeration of both lungs. There is suspected mild atelectasis or scarring in the middle lobe and/or lingular region. There is no interval lung infiltrate. There is no pneumothorax. There is no pleural effusion. Mediastinum: Unremarkable. Pulmonary vasculature: Unremarkable. Heart: Unremarkable. Bones/extrathoracic soft tissue: Unremarkable. IMPRESSION: 1: There is improved aeration of both lungs compared to the prior study with mild atelectasis or scarring in the middle lobe and/or lingular region. 2: Stable hyperinflated lungs. 3: Otherwise, there is no radiographic evidence of acute cardiopulmonary process. Dictated on workstation # [id number] Dict: 10/31/17 1734 Trans: 10/31/17 1738 [id number] Interpreted by: BEE MAR MD Departure Impression Impression: Primary Impression: COPD exacerbation Additional Impressions: UTI (urinary tract infection) Qualified Codes: N39.0 - Urinary tract infection, site not specified Lower back pain Qualified Codes: M54.5 - Low back pain Nausea Atypical chest pain Renal insufficiency Disposition: 01 HOME, SELF-CARE Condition: Improved Departure-Patient Inst. Decision time for Depature: 17:58 Referrals: NO,LOCAL PHYSICIAN (PCP/Family) Primary Care Physician Patient Instructions: Quitting Smoking, Urinary Tract Infection, Adult (DC) Add. Discharge Instructions: Reduce your smoking is much as possible and work toward quitting as soon as possible. Complete your antibiotics as prescribed. Follow-up with your primary care provider on Saturday to review urine culture results to ensure you're on an appropriate antibiotic for the type of infection you have. Drink plenty of water. Return to the emergency room if symptoms worsen. All discharge instructions reviewed with patient and/or family. Voiced understanding. Scripts Prednisone (Prednisone) 20 Mg Tab 20 MG PO DAILY, #5 TAB Prov: FER MONTEIRO MD 10/31/17 Cephalexin (Keflex) 500 Mg Capsule 500 MG PO TID, #20 CAP Prov: FER MONTEIRO MD 10/31/17 Ondansetron (Zofran Odt) 4 Mg Tab.rapdis 4 MG SL Q4H Y for NAUSEA/VOMITING-1ST LINE, #10 TAB Prov: FER MONTEIRO MD 10/31/17 FER MONTEIRO MD Oct 31, 2017 18:03
[2017-10-31 18:22] VITALS: BP 129/87
== END | disposition home or self-care (01) ==
LOC: EDUNIT# 15:14 → ER 15:16
DX: J44.1 Chronic obstructive pulmonary disease with (acute) exacerbation (principal); N39.0 Urinary tract infection, site not specified; M54.5 Low back pain; R07.89 Other chest pain; N28.9 Disorder of kidney and ureter, unspecified; F32.9 Major depressive disorder, single episode, unspecified; F41.9 Anxiety disorder, unspecified; M81.0 Age-related osteoporosis without current pathological fracture; F17.210 Nicotine dependence, cigarettes, uncomplicated; Z79.51 Long term (current) use of inhaled steroids; Z87.19 Personal history of other diseases of the digestive system; Z86.73 Personal history of transient ischemic attack (TIA), and cerebral infarction without residual deficits; Z82.49 Family history of ischemic heart disease and other diseases of the circulatory system; Z90.710 Acquired absence of both cervix and uterus; Z89.512 Acquired absence of left leg below knee; Z88.1 Allergy status to other antibiotic agents; Z88.0 Allergy status to penicillin; Z88.8 Allergy status to other drugs, medicaments and biological substances; Z79.52 Long term (current) use of systemic steroids
CPT/HCPCS: 36415; 71046; 80053; 81000; 83690; 85025; 86141; 87077; 87088; 87186; 94640; 96361; 96365; 96375

== ENCOUNTER 2017-11-07 23:52 | Emergency (ER) | payer MEDICAID ==
[~2017-11-07] VITALS: Ht 154.9 cm; Wt 59.0 kg
[~2017-11-07 23:52] MED LIST changes: -HYDROcodone/APAP 5 MG/325 MG (LORTAB) TAB PO ONE; -NS IV 1000 ML 1,000 ML IV SCH; -ONDANSETRON 4 MG/2 ML (SDV) Z0FRAN IVP ONE; -RT-ALBUTEROL/IPRATROPIUM 3 ML (DUONEB) VIAL INH ONE; -cefTRIAXone INJECTION 1,000 MG in NS (IVPB) 100 ML IV ONE
[2017-11-07] MEDS ORDERED: FAMOTIDINE 20MG/2ML IV (PEPCID) IV STA (23:57)
[2017-11-08] MEDS ORDERED: RT-ALBUTEROL/IPRATROPIUM 3 ML (DUONEB) VIAL INH ONE
[2017-11-08] MEDS ORDERED: ANTACID SUSP 30 ML UDC (MYLANTA) PO ONE
[2017-11-08] MEDS ORDERED: LIDOCAINE 2% VISCOUS 15 ML UDC PO ONE
--- OUTSIDE RECORDS SUMMARY | 2017-11-08 00:01 | XMS REPORT | Clinical Summary ---
Author Author [facility] Organization [facility] Address Unknown Phone Unavailable Care Team Providers Care Director Of Strategic Programs Name Role Phone Mi Joseph RN Unavailable Unavailable Jennifer Bolden RN Unavailable Unavailable Mario Alberto Hodge MD Unavailable Ja Dias MD PCP Carolina Fermin RN Unavailable Unavailable Mirella Swenson RN Unavailable Unavailable Renita Lainez APRN Unavailable Roshan Stephenson MD Unavailable Source Comments Some departments are not documenting in the electronic medical record. If you do not see the information that you expected, contact Release of Information in the Health Information Management department at [phone] for further assistance in locating additional records.[facility] Allergies Active Allergy Reactions Severity Noted [...] PHYSICAL (COMPREHENSIVE) 1975 EXAM PERTUSSIS VACCINE 1979 HIV SCREENING 1983 TETANUS VACCINE 1985 CERVICAL CANCER SCREENING 1998 BREAST CANCER SCREENING 2008 INFLUENZA VACCINE 05/26/2018 Results Not on filefrom Last 3 Months
[2017-11-08 00:05] LABS: BASOPHILS % (AUTO) 0 % (0-10); EOSINOPHILS # (AUTO) 0.2 10^3/uL (0.0-0.3); EOSINOPHILS % (AUTO) 2 % (0-10); HEMATOCRIT 36 % (35-52); HEMOGLOBIN 10.9 G/DL (11.5-16.0); LYMPHOCYTES # (AUTO) 1.5 X 10^3 (1.0-4.0); LYMPHOCYTES % (AUTO) 12 % (12-44); MEAN CORPUSCULAR HEMOGLOBIN 30 PG (25-34); MEAN CORPUSCULAR HGB CONC 30 G/DL (32-36); MEAN CORPUSCULAR VOLUME 100 FL (80-99); MEAN PLATELET VOLUME 10.4 FL (7.4-10.4); MONOCYTES # (AUTO) 1.2 X 10^3 (0.0-1.0); MONOCYTES % (AUTO) 9 % (0-12); NEUTROPHILS # (AUTO) 9.9 X 10^3 (1.8-7.8); NEUTROPHILS % (AUTO) 78 % (42-75); PLATELET COUNT 254 10^3/uL (130-400); RED CELL DISTRIBUTION WIDTH 17.6 % (10.0-14.5); WHITE BLOOD COUNT 12.8 10^3/uL (4.3-11.0)
--- OUTSIDE RECORDS SUMMARY | 2017-11-08 00:08 | XMS REPORT | Continuity of Care Document ---
Author Author Formerly [facility] Address Unknown Phone Unavailable Allergies Active Description Code Type Severity Reaction Onset Reported/Identified Relationship to Patient Clinical Status Yes Augmentin ES-600 Drug Allergy N/A N/A 02/04/2009 Yes Darvocet-N 100 Drug Allergy N /A N/A 02/04/2009 Yes Floxin Drug Allergy N/A N/A 02/04/2009 Yes Penicillins Drug Allergy N/A N/A 02/04/2009 Yes Phenergan Drug Allergy N/A N/A 02/04/2009 Yes Toradol Drug Allergy N/A N/A 02/04/2009 Yes ofloxacin [id number] Drug Allergy Mild N/A 08/10/2016 Yes amoxicillin [id number] Drug Allergy Unknown N/A 08/10/2016 Yes clavulanic acid [id number] Drug Allergy Unknown N/A 08/10/2016 Yes Penicillins [id number] Drug Allergy Unknown N/A 08/10/2016 Yes promethazine [id number] Drug Allergy Unknown N/A 08/10/2016 Yes propoxyphene [id number] Drug Allergy Unknown N/A 08/10/2016 Yes Penicillins [id number] Drug Allergy Unknown Pt has received 08/06/2017 Medications There is no data. Problems Date Dx Coded Attending Type Code Diagnosis Diagnosed By 02/04/2009 MADL BARLEY STEEPER, OLMAN L 892.0 OPEN WOUND OF FOOT EXCEPT TOE(S) ALONE WITHOUT COMPLICATION 02/04/2009 MADL BARLEY STEEPER, OLMAN L 892.0 OPEN WOUND OF FOOT EXCEPT TOE(S) ALONE WITHOUT COMPLICATION 02/04/2009 MADL BARLEY STEEPER, OLMAN L 892.0 OPEN WOUND OF FOOT EXCEPT TOE(S) ALONE WITHOUT COMPLICATION 02/04/2009 MADL BARLEY STEEPER, OLMAN L 892.0 OPEN WOUND OF FOOT EXCEPT TOE(S) ALONE WITHOUT COMPLICATION 02/04/2009 MATHEW DO, RAGHAV K 892.0 OPEN WOUND OF FOOT EXCEPT TOE(S) ALONE WITHOUT COMPLICATION 02/04/2009 MATHEW DO, RAGHAV K 892.0 OPEN WOUND OF FOOT EXCEPT TOE(S) ALONE WITHOUT COMPLICATION 02/04/2009 MADL BARLEY STEEPER, OLMAN L 892.0 OPEN WOUND OF FOOT EXCEPT TOE(S) ALONE WITHOUT COMPLICATION 02/04/2009 EUGENIA MONACO, JESSICA B 892.0 OPEN WOUND OF FOOT EXCEPT TOE(S) ALONE WITHOUT COMPLICATION 02/04/2009 MADL BARLEY STEEPER, OLMAN L 892.0 OPEN WOUND OF FOOT EXCEPT TOE(S) ALONE WITHOUT COMPLICATION 02/04/2009 MATHEW DO, RAGHAV K 892.0 OPEN WOUND OF FOOT EXCEPT TOE(S) ALONE WITHOUT COMPLICATION 02/04/2009 MADL BARLEY STEEPER, OLMAN L 892.0 OPEN WOUND OF FOOT EXCEPT TOE(S) ALONE WITHOUT COMPLICATION 02/04/2009 MATHEW DO, RAGHAV K 892.0 OPEN WOUND OF FOOT EXCEPT TOE(S) ALONE WITHOUT COMPLICATION 04/16/2009 MADL BARLEY STEEPER, OLMAN L 356.9 UNSPECIFIED IDIOPATHIC PERIPHERAL NEUROPATHY 04/16/2009 MADL BARLEY STEEPER, OLMAN L 356.9 UNSPECIFIED IDIOPATHIC PERIPHERAL NEUROPATHY 04/16/2009 MADL BARLEY STEEPER, OLMAN L 356.9 UNSPECIFIED IDIOPATHIC PERIPHERAL NEUROPATHY 04/16/2009 MADL BARLEY STEEPER, OLMAN L 356.9 UNSPECIFIED IDIOPATHIC PERIPHERAL NEUROPATHY 04/16/2009 MATHEW DO, RAGHAV K 356.9 UNSPECIFIED IDIOPATHIC PERIPHERAL NEUROPATHY 04/16/2009 MATHEW DO, RAGHAV K 356.9 UNSPECIFIED IDIOPATHIC PERIPHERAL NEUROPATHY 04/16/2009 MADL BARLEY STEEPER, OLMAN L 356.9 UNSPECIFIED IDIOPATHIC PERIPHERAL NEUROPATHY 04/16/2009 EUGENIA MONACO, JESSICA B 356.9 UNSPECIFIED IDIOPATHIC PERIPHERAL NEUROPATHY 04/16/2009 MADL BARLEY STEEPER, OLMAN L 356.9 UNSPECIFIED IDIOPATHIC PERIPHERAL NEUROPATHY 04/16/2009 MATHEW DO, RAGHAV K 356.9 UNSPECIFIED IDIOPATHIC PERIPHERAL NEUROPATHY 04/16/2009 MADL BARLEY STEEPER, OLMAN L 356.9 UNSPECIFIED IDIOPATHIC PERIPHERAL NEUROPATHY 04/16/2009 MATHEW DO, RAGHAV K 356.9 UNSPECIFIED IDIOPATHIC PERIPHERAL NEUROPATHY 04/27/2009 MADL BARLEY STEEPER, OLMAN L 338.2 CHRONIC PAIN 04/27/2009 MADL BARLEY STEEPER, OLMAN L 477.9 ALLERGIC RHINITIS 04/27/2009 MADL BARLEY STEEPER, OLMAN L 338.2 CHRONIC PAIN 04/27/2009 MADL BARLEY STEEPER, OLMAN L 477.9 ALLERGIC RHINITIS 04/27/2009 MADL BARLEY STEEPER, OLMAN L 338.2 CHRONIC PAIN 04/27/2009 MADL BARLEY STEEPER, OLMAN L 477.9 ALLERGIC RHINITIS 04/27/2009 MADL BARLEY STEEPER, OLMAN L 338.2 CHRONIC PAIN 04/27/2009 MADL BARLEY STEEPER, OLMAN L 477.9 ALLERGIC RHINITIS 04/27/2009 MATHEW DO, RAGHAV K 338.2 CHRONIC PAIN 04/27/2009 MATHEW DO, RAGHAV K 477.9 ALLERGIC RHINITIS 04/27/2009 MATHEW DO, RAGHAV K 338.2 CHRONIC PAIN 04/27/2009 MATHEW DO, RAGHAV K 477.9 ALLERGIC RHINITIS 04/27/2009 MADL BARLEY STEEPER, OLMAN L 338.2 CHRONIC PAIN 04/27/2009 MADL BARLEY STEEPER, OLMAN L 477.9 ALLERGIC RHINITIS 04/27/2009 EUGENIA VALUE ANALYST, JESSICA B 338.2 CHRONIC PAIN 04/27/2009 EUGENIA VALUE ANALYST, JESSICA B 477.9 ALLERGIC RHINITIS 04/27/2009 MADL BARLEY STEEPER, OLMAN L 338.2 CHRONIC PAIN 04/27/2009 MADL BARLEY STEEPER, OLMAN L 477.9 ALLERGIC RHINITIS 04/27/2009 MATHEW DO, RAGHAV K 338.2 CHRONIC PAIN 04/27/2009 MATHEW DO, RAGHAV K 477.9 ALLERGIC RHINITIS 04/27/2009 MADL BARLEY STEEPER, OLMAN L 338.2 CHRONIC PAIN 04/27/2009 MADL BARLEY STEEPER, OLMAN L 477.9 ALLERGIC RHINITIS 04/27/2009 MATHEW DO, RAGHAV K 338.2 CHRONIC PAIN 04/27/2009 MATHEW DO, RAGHAV K 477.9 ALLERGIC RHINITIS 05/03/2009 MADL BARLEY STEEPER, OLMAN L NODX NO DIAGNOSIS 05/03/2009 MADL BARLEY STEEPER, OLMAN L NODX NO DIAGNOSIS 05/03/2009 MADL BARLEY STEEPER, OLMAN L NODX NO DIAGNOSIS 05/03/2009 MADL BARLEY STEEPER, OLMAN L NODX NO DIAGNOSIS 05/03/2009 MATHEW DORAGHAV K NODX NO DIAGNOSIS 05/03/2009 MATHEW DORAGHAV K NODX NO DIAGNOSIS 05/03/2009 MADL BARLEY STEEPER, OLMAN L NODX NO DIAGNOSIS 05/03/2009 JESSICA BELLO LCPC NODX NO DIAGNOSIS 05/03/2009 MADL BARLEY STEEPER, OLMAN L NODX NO DIAGNOSIS 05/03/2009 MATHEW DORAGHAV K NODX NO DIAGNOSIS 05/03/2009 MADL BARLEY STEEPER, OLMAN L NODX NO DIAGNOSIS 05/03/2009 MATHEW DO, RAGHAV Patel NODX NO DIAGNOSIS 01/15/2010 Ot 263.0 01/15/2010 Ot 303.00 01/15/2010 Ot 305.1 01/15/2010 Ot 443.9 01/15/2010 Ot 577.0 01/15/2010 Ot 577.1 01/15/2010 Ot V07.4 01/15/2010 Ot V45.77 01/15/2010 Ot V49.75 01/15/2010 Ot V57.1 03/09/2010 Ot 305.00 03/09/2010 Ot 577.1 03/09/2010 Ot 599.0 03/09/2010 Ot 789.09 03/09/2010 Ot V58.69 05/29/2010 Ot 305.00 05/29/2010 Ot 729.5 09/28/2010 Ot 300.4 09/28/2010 Ot 303.01 09/28/2010 Ot 305.1 09/28/2010 Ot 305.20 09/28/2010 Ot 401.9 09/28/2010 Ot 518.0 09/28/2010 Ot 577.0 10/27/2010 Ot 276.8 10/27/2010 Ot 305.00 10/27/2010 Ot 577.0 10/27/2010 Ot 789.00 11/23/2010 Ot 535.30 ALCOHOLIC GASTRITIS,W/O MENTION OF HEMOR 11/23/2010 Ot 789.09 ABDOMINAL PAIN, OTHER SPECIFIED SITE 11/26/2010 Ot 577.1 CHRONIC PANCREATITIS 11/26/2010 Ot 786.59 CHEST PAIN NEC 12/05/2010 Ot 305.00 ALCOHOL ABUSE-UNSPEC 12/05/2010 Ot 599.0 URIN TRACT INFECTION NOS 12/05/2010 Ot 787.03 VOMITING ALONE 12/05/2010 Ot 789.02 ABDOMINAL PAIN, LEFT UPPER QUADRANT 12/13/2010 Ot 287.49 OTHER SECONDARY THROMBOCYTOPENIA 12/13/2010 Ot 288.50 LEUKOCYTOPENIA, UNSPECIFIED 12/13/2010 Ot 300.4 DYSTHYMIC DISORDER 12/13/2010 Ot 303.01 AC ALCOHOL INTOX-CONTIN 12/13/2010 Ot 305.1 TOBACCO USE DISORDER 12/13/2010 Ot 338.29 OTHER CHRONIC PAIN 12/13/2010 Ot 577.1 CHRONIC PANCREATITIS 12/13/2010 Ot V58.69 OTH MED,LT, CURRENT USE 04/15/2011 Ot 305.00 ALCOHOL ABUSE-UNSPEC 04/15/2011 Ot 786.50 CHEST PAIN NOS 04/15/2011 Ot 786.52 PAINFUL RESPIRATION 05/18/2011 Ot 276.51 DEHYDRATION 05/18/2011 Ot 305.1 TOBACCO USE DISORDER 05/18/2011 Ot 305.90 DRUG ABUSE NEC-UNSPEC 05/18/2011 Ot 338.29 OTHER CHRONIC PAIN 05/18/2011 Ot 486 PNEUMONIA, ORGANISM NOS 05/18/2011 Ot 518.5 POST TRAUM PULM INSUFFIC 05/18/2011 Ot 593.9 RENAL URETERAL DIS NOS 05/18/2011 Ot 790.99 BLOOD EXAM - OTH NONSPECIFIC FINDINGS 05/18/2011 Ot 965.09 POISONING- OPIATES NEC 05/18/2011 Ot E850.2 ACC POISON- OPIATES NEC 05/18/2011 Ot V15.81 HX OF PAST NONCOMPLIANCE 09/19/2011 Ot 729.5 PAIN IN LIMB 01/19/2012 Ot 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) 02/22/2012 Ot 276.51 DEHYDRATION 02/22/2012 Ot 300.00 ANXIETY STATE NOS 02/22/2012 Ot 300.01 PANIC DISORDER WITHOUT AGORAPHOBIA 02/22/2012 Ot 305.90 DRUG ABUSE NEC-UNSPEC 02/22/2012 Ot 311 DEPRESSIVE DISORDER NEC 02/22/2012 Ot 584.9 ACUTE RENAL FAILURE, UNSPECIFIED 02/22/2012 Ot 729.5 PAIN IN LIMB 02/22/2012 Ot 780.09 OTHER ALTERATION OF CONSCIOUSNESS 02/22/2012 Ot 780.79 OTH MALAISE FATIGUE 02/22/2012 Ot 967.9 POIS-SEDATIVE /HYPNOT NOS 02/22/2012 Ot 992.5 HEAT EXHAUSTION NOS 02/22/2012 Ot E852.9 ACC POISON- SEDATIVES NOS 02/22/2012 Ot E900.0 EXCESSIVE HEAT: WEATHER 02/22/2012 Ot V12.71 PERSONAL HISTORY OF PEPTIC ULCER DISEASE 02/22/2012 Ot V12.79 PERSONAL HISTORY OTH SPEC DIGESTIVE SYST 02/22/2012 Ot V49.75 BELOW KNEE AMPUTATION STATUS 03/19/2012 Ot 276.51 DEHYDRATION 03/19/2012 Ot 303.93 ALCOH DEP NEC/NOS-REMISS 03/19/2012 Ot 305.90 DRUG ABUSE NEC-UNSPEC 03/19/2012 Ot 493.90 ASTHMA, UNSPECIFIED 03/19/2012 Ot 584.9 ACUTE RENAL FAILURE, UNSPECIFIED 03/19/2012 Ot 780.09 OTHER ALTERATION OF CONSCIOUSNESS 03/19/2012 Ot V49.70 UNSPECIFIED LEVEL LOWER LIMB AMPUTATION 06/06/2012 Ot 924.10 CONTUSION OF LOWER LEG 06/06/2012 Ot 959.7 LOWER LEG INJURY NOS 06/06/2012 Ot E000.8 OTHER EXTERNAL CAUSE STATUS 06/06/2012 Ot E849.0 ACCIDENT IN HOME 06/06/2012 Ot E917.9 STRUCK BY OBJ/PERSON NEC 07/28/2012 Ot 920 CONTUSION FACE/ SCALP/NCK 07/28/2012 Ot 923.00 CONTUSION SHOULDER REG 07/28/2012 Ot 959.01 HEAD INJURY , NOS 07/28/2012 Ot E000.8 OTHER EXTERNAL CAUSE STATUS 07/28/2012 Ot E849.0 ACCIDENT IN HOME 07/28/2012 Ot E888.9 FALL NOS 09/14/2012 Ot 305.1 TOBACCO USE DISORDER 09/14/2012 Ot 491.21 OBSTR CHRONIC BRONCHITIS, W (ACUTE) EXAC 09/14/2012 Ot 786.2 COUGH 09/14/2012 Ot 787.91 DIARRHEA 02/06/2013 MARIANN LAO, PAIGE Villa Ot 305.1 TOBACCO USE DISORDER 02/06/2013 MARIANN LAO, PAIGE Villa Ot 482.2 H.INFLUENZAE PNEUMONIA 02/06/2013 MARIANN LAO, PAIGE Villa Ot 493.90 ASTHMA, UNSPECIFIED 02/06/2013 MARIANN LAO, PAIGE Villa Ot V03.82 PROPHYLACTIC VACC AGAINST STREPTOCOCCUS 03/15/2013 ELVIS NERI DO Ot 300.00 ANXIETY STATE NOS 03/15/2013 NERI DO, ELVIS Ot 305.1 TOBACCO USE DISORDER 03/15/2013 DARON REES ELVIS Ot 305.90 DRUG ABUSE NEC-UNSPEC 03/15/2013 DARON REES ELVIS Ot 311 DEPRESSIVE DISORDER NEC 03/15/2013 DARON REES EVLIS Ot 338.29 OTHER CHRONIC PAIN 03/15/2013 DARON REES ELVIS Ot 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) 03/15/2013 DARON REES ELVIS Ot 443.9 PERIPH VASCULAR DIS NOS 03/15/2013 DARON REES ELVIS Ot 486 PNEUMONIA, ORGANISM NOS 03/15/2013 DARON REES ELVIS Ot 496 CHR AIRWAY OBSTRUCT NEC 03/15/2013 NERISHANICE REES ELVIS Ot 965.09 POISONING-OPIATES NEC 03/15/2013 DARON REES ELVIS Ot E850.2 ACC POISON-OPIATES NEC 03/15/2013 DARON REES ELVIS Ot V46.2 SUPPLEMENTAL OXYGEN 03/15/2013 DARON REES ELVIS Ot 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 04/13/2013 ANDREIA LAO, GREG Orozco Ot 300.00 ANXIETY STATE NOS 04/13/2013 ANDREIA LAO, GREG Orozco Ot 311 DEPRESSIVE DISORDER NEC 04/13/2013 ANDREIA LAO, GREG Orozco Ot 496 CHR AIRWAY OBSTRUCT NEC 04/13/2013 GREG BOSWELL MD Ot 530.81 ESOPHAGEAL REFLUX 04/13/2013 GREG BOSWELL MD Ot 965.09 POISONING-OPIATES NEC 04/13/2013 GREG BOSWELL MD Ot E849.0 ACCIDENT IN HOME 04/13/2013 GREG BOSWELL MD Ot E850.2 ACC POISON-OPIATES NEC 04/13/2013 GREG BOSWELL MD Ot 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 05/21/2013 STEFFEN VALDERRAMA Ot 300.00 ANXIETY STATE NOS 05/21/2013 STEFFEN VALDERRAMA Ot 305.1 TOBACCO USE DISORDER 05/21/2013 STEFFEN VALDERRAMA Ot 305.90 DRUG ABUSE NEC-UNSPEC 05/21/2013 STEFFEN VALDERRAMA Ot 311 DEPRESSIVE DISORDER NEC 05/21/2013 STEFFEN VALDERRAMA Ot 346.90 MIGRAINE UNSPECIFIED W/O INTRACT MGRN W/ 05/21/2013 STEFFEN VALDERRAMA Ot 355.9 MONONEURITIS NOS 05/21/2013 STEFFEN VALDERRAMA Ot 491.20 OBSTR CHRONIC BRONCHITIS, W/O EXACERBATI 05/21/2013 STEFFEN VALDERRAMA Ot 575.9 DIS OF GALLBLADDER NOS 05/21/2013 STEFFEN VALDERRAMA Ot 577.1 CHRONIC PANCREATITIS 05/21/2013 STEFFEN VALDERRAMA Ot 586 RENAL FAILURE NOS 05/21/2013 STEFFEN VALDERRAMA Ot 924.5 CONTUSION LEG NOS 05/21/2013 STEFFEN VALDERRAMA Ot E849.0 ACCIDENT IN HOME 05/21/2013 STEFFEN VALDERRAMA Ot E917.4 STAT OB W/O SUB FALL NEC 05/21/2013 STEFFEN VALDERRAMA Ot V49.70 UNSPECIFIED LEVEL LOWER LIMB AMPUTATION 07/03/2013 DEONNA MORGAN MD Ot 300.00 ANXIETY STATE NOS 07/03/2013 DEONNA MORGAN MD Ot 303.90 ALCOH DEP NEC/NOS-UNSPEC 07/03/2013 DEONNA MORGAN MD Ot 305.1 TOBACCO USE DISORDER 07/03/2013 DEONNA MORGAN MD Ot 305.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-UNSPEC 07/03/2013 DEONNA MORGAN MD Ot 305.90 DRUG ABUSE NEC-UNSPEC 07/03/2013 DEONNA MORGAN MD Ot 311 DEPRESSIVE DISORDER NEC 07/03/2013 DEONNA MORGAN MD Ot 338.4 CHRONIC PAIN SYNDROME 07/03/2013 DEONNA MORGAN MD Ot 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) 07/03/2013 DEONNA MORGAN MD Ot 496 CHR AIRWAY OBSTRUCT NEC 07/03/2013 DEONNA MORGAN MD Ot 593.9 RENAL URETERAL DIS NOS 07/03/2013 DEONNA MORGAN MD Ot 793.19 OTHER NONSPECIFIC ABNORMAL FINDING OF [place] 07/03/2013 DEONNA MORGAN MD Ot 967.9 POIS-SEDATIVE/HYPNOT NOS 07/03/2013 DEONNA MORGAN MD Ot E980.2 UNDET POIS-SED/HYPN NEC 07/03/2013 DEONNA MORGAN MD Ot V15.81 HX OF PAST NONCOMPLIANCE 07/03/2013 DEONNA MORGAN MD Ot V15.88 HISTORY OF FALL 07/03/2013 DEONNA MORGAN MD F Ot V49.70 UNSPECIFIED LEVEL LOWER LIMB AMPUTATION 10/30/2013 JUAN C FRANCISCO BARLEY STEEPER Ot 825.25 FX METATARSAL-CLOSED 10/30/2013 JUAN C FRANCISCO BARLEY STEEPER Ot 959.7 LOWER LEG INJURY NOS 10/30/2013 JUAN C FRANCISCO BARLEY STEEPER Ot E000.8 OTHER EXTERNAL CAUSE STATUS 10/30/2013 JUAN C FRANCISCO BARLEY STEEPER Ot E918 CAUGHT BETWEEN OBJECTS 12/11/2013 JUAN C FRANCISCO BARLEY STEEPER Ot 729.5 PAIN IN LIMB 01/20/2014 RAUDEL REES LEIA K Ot 305.90 DRUG ABUSE NEC-UNSPEC 01/20/2014 RAUDEL REES LEIA K Ot 338.29 OTHER CHRONIC PAIN 01/20/2014 RAUDEL REES LEIA K Ot 719.45 JOINT PAIN-PELVIS 01/21/2014 JUAN C FRANCISCO BARLEY STEEPER Ot 338.29 OTHER CHRONIC PAIN 01/25/2014 MADL BARLEY STEEPER, OLMAN L 305.90 OTHER MIXED OR UNSPECIFIED DRUG ABUSE UNSPECIFIED USE 01/25/2014 MADL BARLEY STEEPER, OLMAN L 338.29 OTHER CHRONIC PAIN 01/25/2014 MADL BARLEY STEEPER, OLMAN L 305.90 OTHER MIXED OR UNSPECIFIED DRUG ABUSE UNSPECIFIED USE 01/25/2014 MADL BARLEY STEEPER, OLMAN L 338.29 OTHER CHRONIC PAIN 01/25/2014 MADL BARLEY STEEPER, OLMAN L 305.90 OTHER MIXED OR UNSPECIFIED DRUG ABUSE UNSPECIFIED USE 01/25/2014 MADL BARLEY STEEPER, OLMAN L 338.29 OTHER CHRONIC PAIN 01/25/2014 MADL BARLEY STEEPER, OLMAN L 305.90 OTHER MIXED OR UNSPECIFIED DRUG ABUSE UNSPECIFIED USE 01/25/2014 MADL BARLEY STEEPER, OLMAN L 338.29 OTHER CHRONIC PAIN 01/25/2014 MATHEW DO, RAGHAV K 305.90 OTHER MIXED OR UNSPECIFIED DRUG ABUSE UNSPECIFIED USE 01/25/2014 MATHEW DO, RAGHAV K 338.29 OTHER CHRONIC PAIN 01/25/2014 MATHEW DO, RAGHAV K 305.90 OTHER MIXED OR UNSPECIFIED DRUG ABUSE UNSPECIFIED USE 01/25/2014 MATHEW DO, RAGHAV K 338.29 OTHER CHRONIC PAIN 01/25/2014 MADL BARLEY STEEPER, OLMAN L 305.90 OTHER MIXED OR UNSPECIFIED DRUG ABUSE UNSPECIFIED USE 01/25/2014 MADL BARLEY STEEPER, OLMAN L 338.29 OTHER CHRONIC PAIN 01/25/2014 JESSICA BELLO LCPC B 305.90 OTHER MIXED OR UNSPECIFIED DRUG ABUSE UNSPECIFIED USE 01/25/2014 EUGENIA MONACO, JESSICA B 338.29 OTHER CHRONIC PAIN 01/25/2014 MADL BARLEY STEEPER, OLMAN L 305.90 OTHER MIXED OR UNSPECIFIED DRUG ABUSE UNSPECIFIED USE 01/25/2014 MADL BARLEY STEEPER, OLMAN L 338.29 OTHER CHRONIC PAIN 01/25/2014 MATHEW DO RAGHAV K 305.90 OTHER MIXED OR UNSPECIFIED DRUG ABUSE UNSPECIFIED USE 01/25/2014 MATHEW DO RAGHAV K 338.29 OTHER CHRONIC PAIN 01/25/2014 MADL BARLEY STEEPER, OLMAN L 305.90 OTHER MIXED OR UNSPECIFIED DRUG ABUSE UNSPECIFIED USE 01/25/2014 MADL BARLEY STEEPER, OLMAN L 338.29 OTHER CHRONIC PAIN 01/25/2014 MATHEW DO RAGHAV K 305.90 OTHER MIXED OR UNSPECIFIED DRUG ABUSE UNSPECIFIED USE 01/25/2014 MATHEW DO RAGHAV K 338.29 OTHER CHRONIC PAIN 01/27/2014 CAYETANO LAO, FER Li Ot 304.00 OPIOID DEPENDENCE-UNSPEC 01/27/2014 CAYETANO LAO, FER Li Ot 784.0 HEADACHE 01/27/2014 CAYETANO ALO, FER T Ot V15.81 HX OF PAST NONCOMPLIANCE 01/27/2014 CAYETANO LAO, FER Li Ot V58.69 OTH MED,LT,CURRENT USE 02/01/2014 TRINA STARKS DOA Amanda Ot 305.90 DRUG ABUSE NEC-UNSPEC 02/01/2014 TRINA STARKS DOA K Ot 338.29 OTHER CHRONIC PAIN 02/04/2014 JUAN C FRANCISCO BARLEY STEEPER Ot 305.70 AMPHETAMINE ABUSE-UNSPEC 02/04/2014 JUAN C FRANCISCO BARLEY STEEPER Ot 338.29 OTHER CHRONIC PAIN 02/04/2014 JUAN C FRANCISCO BARLEY STEEPER Ot 784.0 HEADACHE 02/11/2014 MADL BARLEY STEEPER, OLMAN L 300.00 ANXIETY UNSPEC 02/11/2014 MADL BARLEY STEEPER, OLMAN L 304.90 UNSPECIFIED DRUG DEPENDENCE UNSPECIFIED USE 02/11/2014 MADL BARLEY STEEPER, OLMAN L 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) 02/11/2014 MADL BARLEY STEEPER, OLMAN L 496 CHRONIC AIRWAY OBSTRUCTION NOT ELSEWHERE CLASSIFIED 02/11/2014 MADL BARLEY STEEPER, OLMAN L 300.00 ANXIETY UNSPEC 02/11/2014 MADL BARLEY STEEPER, OLMAN L 304.90 UNSPECIFIED DRUG DEPENDENCE UNSPECIFIED USE 02/11/2014 MADL BARLEY STEEPER, OLMAN L 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) 02/11/2014 MADL BARLEY STEEPER, OLMAN L 496 CHRONIC AIRWAY OBSTRUCTION NOT ELSEWHERE CLASSIFIED 02/11/2014 MADL BARLEY STEEPER, OLMAN L 300.00 ANXIETY UNSPEC 02/11/2014 MADL BARLEY STEEPER, OLMAN L 304.90 UNSPECIFIED DRUG DEPENDENCE UNSPECIFIED USE 02/11/2014 MADL BARLEY STEEPER, OLMAN L 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) 02/11/2014 MADL BARLEY STEEPER, OLMAN L 496 CHRONIC AIRWAY OBSTRUCTION NOT ELSEWHERE CLASSIFIED 02/11/2014 MATHEW DO, RAGHAV K 300.00 ANXIETY UNSPEC 02/11/2014 MATHEW DO, RAGHAV K 304.90 UNSPECIFIED DRUG DEPENDENCE UNSPECIFIED USE 02/11/2014 MATHEW DO, RAGHAV K 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) 02/11/2014 MATHEW DO, RAGHAV K 496 CHRONIC AIRWAY OBSTRUCTION NOT ELSEWHERE CLASSIFIED 02/11/2014 MATHEW DO, RAGHAV K 300.00 ANXIETY UNSPEC 02/11/2014 MATHEW DO, RAGHAV K 304.90 UNSPECIFIED DRUG DEPENDENCE UNSPECIFIED USE 02/11/2014 MATHEW DO, RAGHAV K 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) 02/11/2014 MATHEW DO, RAGHAV K 496 CHRONIC AIRWAY OBSTRUCTION NOT ELSEWHERE CLASSIFIED 02/11/2014 MADL BARLEY STEEPER, OLMAN L 300.00 ANXIETY UNSPEC 02/11/2014 MADL BARLEY STEEPER, OLMAN L 304.90 UNSPECIFIED DRUG DEPENDENCE UNSPECIFIED USE 02/11/2014 MADL BARLEY STEEPER, OLMAN L 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) 02/11/2014 MADL BARLEY STEEPER, OLMAN L 496 CHRONIC AIRWAY OBSTRUCTION NOT ELSEWHERE CLASSIFIED 02/11/2014 EUGENIA VALUE ANALYST, JESSICA B 300.00 ANXIETY UNSPEC 02/11/2014 EUGENIA VALUE ANALYST, JESSICA B 304.90 UNSPECIFIED DRUG DEPENDENCE UNSPECIFIED USE 02/11/2014 JESSICA BELLO LCPC B 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) 02/11/2014 EUGENIA VALUE ANALYST, JESSICA B 496 CHRONIC AIRWAY OBSTRUCTION NOT ELSEWHERE CLASSIFIED 02/11/2014 MADL BARLEY STEEPER, OLMAN L 300.00 ANXIETY UNSPEC 02/11/2014 MADL BARLEY STEEPER, OLMAN L 304.90 UNSPECIFIED DRUG DEPENDENCE UNSPECIFIED USE 02/11/2014 MADL BARLEY STEEPER, OLMAN L 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) 02/11/2014 MADL BARLEY STEEPER, OLMAN L 496 CHRONIC AIRWAY OBSTRUCTION NOT ELSEWHERE CLASSIFIED 02/11/2014 MATHEW DO, RAGHAV K 300.00 ANXIETY UNSPEC 02/11/2014 MATHEW DO, RAGHAV K 304.90 UNSPECIFIED DRUG DEPENDENCE UNSPECIFIED USE 02/11/2014 MATHEW DO, RAGHAV K 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) 02/11/2014 MATHEW DO, RAGHAV K 496 CHRONIC AIRWAY OBSTRUCTION NOT ELSEWHERE CLASSIFIED 02/11/2014 MADL BARLEY STEEPER, OLMAN L 300.00 ANXIETY UNSPEC 02/11/2014 MADL BARLEY STEEPER, OLMAN L 304.90 UNSPECIFIED DRUG DEPENDENCE UNSPECIFIED USE 02/11/2014 MADL BARLEY STEEPER, OLMAN L 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) 02/11/2014 MADL BARLEY STEEPER, OLMAN L 496 CHRONIC AIRWAY OBSTRUCTION NOT ELSEWHERE CLASSIFIED 02/11/2014 MATHEW DO, RAGHAV K 300.00 ANXIETY UNSPEC 02/11/2014 MATHEW DO, RAGHAV K 304.90 UNSPECIFIED DRUG DEPENDENCE UNSPECIFIED USE 02/11/2014 MATHEW DO, RAGHAV K 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) 02/11/2014 MATHEW DO, RAGHAV K 496 CHRONIC AIRWAY OBSTRUCTION NOT ELSEWHERE CLASSIFIED 02/15/2014 MADL BARLEY STEEPER, OLMAN L 788.41 URINARY FREQUENCY 02/15/2014 MADL BARLEY STEEPER, OLMAN L 788.41 URINARY FREQUENCY 02/15/2014 MATHEW DO, RAGHAV K 788.41 URINARY FREQUENCY 02/15/2014 MATHEW DO, RAGHAV K 788.41 URINARY FREQUENCY 02/15/2014 MADL BARLEY STEEPER, OLMAN L 788.41 URINARY FREQUENCY 02/15/2014 EUGENIA VALUE ANALYST, JESSICA B 788.41 URINARY FREQUENCY 02/15/2014 MADL BARLEY STEEPER, OLMAN L 788.41 URINARY FREQUENCY 02/15/2014 MATHEW DO, RAGHAV K 788.41 URINARY FREQUENCY 02/15/2014 MADL BARLEY STEEPER, OLMAN L 788.41 URINARY FREQUENCY 02/15/2014 MATHEW DO, RAGHAV K 788.41 URINARY FREQUENCY 03/01/2014 MADL BARLEY STEEPERMARSHALLOLMAN L 787.02 NAUSEA ALONE 03/01/2014 MADL BARLEY STEEPER, OMLAN L 796.2 ELEVATED BLOOD PRESSURE READING WITHOUT DIAGNOSIS OF HYPERTENSION 03/01/2014 MATHEW DO, RAHGAV K 787.02 NAUSEA ALONE 03/01/2014 MATHEW DO, RAGHAV K 796.2 ELEVATED BLOOD PRESSURE READING WITHOUT DIAGNOSIS OF HYPERTENSION 03/01/2014 MATHEW DO, RAGHAV K 787.02 NAUSEA ALONE 03/01/2014 MATHEW DO, RAGHAV K 796.2 ELEVATED BLOOD PRESSURE READING WITHOUT DIAGNOSIS OF HYPERTENSION 03/01/2014 MADL BARLEY STEEPER, OLMAN L 787.02 NAUSEA ALONE 03/01/2014 MADL BARLEY STEEPER, OLMAN L 796.2 ELEVATED BLOOD PRESSURE READING WITHOUT DIAGNOSIS OF HYPERTENSION 03/01/2014 EUGENIACHEY GILBERT LCPCLEY B 787.02 NAUSEA ALONE 03/01/2014 EUGENIA VALUE ANALYST, JESSICA B 796.2 ELEVATED BLOOD PRESSURE READING WITHOUT DIAGNOSIS OF HYPERTENSION 03/01/2014 MADL BARLEY STEEPER, OLMAN L 787.02 NAUSEA ALONE 03/01/2014 MADL BARLEY STEEPER, OLMAN L 796.2 ELEVATED BLOOD PRESSURE READING WITHOUT DIAGNOSIS OF HYPERTENSION 03/01/2014 MATHEW DO, RAGHAV K 787.02 NAUSEA ALONE 03/01/2014 MATHEW DO, RAGHAV K 796.2 ELEVATED BLOOD PRESSURE READING WITHOUT DIAGNOSIS OF HYPERTENSION 03/01/2014 MADL BARLEY STEEPER, OLMAN L 787.02 NAUSEA ALONE 03/01/2014 MADL BARLEY STEEPER, OLMAN L 796.2 ELEVATED BLOOD PRESSURE READING WITHOUT DIAGNOSIS OF HYPERTENSION 03/01/2014 MATHEW DO, RAGHAV K 787.02 NAUSEA ALONE 03/01/2014 MATHEW DO, RAGHAV K 796.2 ELEVATED BLOOD PRESSURE READING WITHOUT DIAGNOSIS OF HYPERTENSION 03/19/2014 MADL BARLEY STEEPER, OLMAN L 305.50 OPIOID ABUSE 03/19/2014 MADL BARLEY STEEPER, OLMAN L 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 03/19/2014 MADL BARLEY STEEPER, OLMAN L 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 03/19/2014 MATHEW DO, RAGHAV K 305.50 OPIOID ABUSE 03/19/2014 MATHEW DO, RAGHAV K 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 03/19/2014 MATHEW DO, RAGHAV K 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 03/19/2014 MATHEW DO, RAGHAV K 305.50 OPIOID ABUSE 03/19/2014 MATHEW DO, RAGHAV K 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 03/19/2014 MATHEW DO, RAGHAV K 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 03/19/2014 MADL BARLEY STEEPER, OLMAN L 305.50 OPIOID ABUSE 03/19/2014 MADL BARLEY STEEPER, OLMAN L 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 03/19/2014 MADL BARLEY STEEPER, OLMAN L 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 03/19/2014 EUGENIA VALUE ANALYST, JESSICA B 305.50 OPIOID ABUSE 03/19/2014 EUGENIA VALUE ANALYST, JESSICA B 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 03/19/2014 EUGENIA VALUE ANALYST, JESSICA B 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 03/19/2014 MADL BARLEY STEEPER, OLMAN L 305.50 OPIOID ABUSE 03/19/2014 MADL BARLEY STEEPER, OLMAN L 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 03/19/2014 MADL BARLEY STEEPER, OLMAN L 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 03/19/2014 MATHEW DO, RAGHAV K 305.50 OPIOID ABUSE 03/19/2014 MATHEW DO, RAGHAV K 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 03/19/2014 MATHEW DO, RAGHAV K 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 03/19/2014 MADL BARLEY STEEPER, OLMAN L 305.50 OPIOID ABUSE 03/19/2014 MADL BARLEY STEEPER, OLMAN L 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 03/19/2014 MADL BARLEY STEEPER, OLMAN L 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 03/19/2014 MATHEW DO, RAGHAV K 305.50 OPIOID ABUSE 03/19/2014 CHUYITA MATHEW DOA K 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 03/19/2014 QUINCY REES RAGHAV K 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 06/04/2014 CHUYITA MATHEW DOA K 593.9 UNSPECIFIED DISORDER OF KIDNEY AND URETER 06/04/2014 CHUYITA MATHEW DOA K 593.9 UNSPECIFIED DISORDER OF KIDNEY AND URETER 06/04/2014 MADL BARLEY STEEPER, OLMAN L 593.9 UNSPECIFIED DISORDER OF KIDNEY AND URETER 06/04/2014 JESSICA BELLO LCPC B 593.9 UNSPECIFIED DISORDER OF KIDNEY AND URETER 06/04/2014 MADL BARLEY STEEPER, OLMAN L 593.9 UNSPECIFIED DISORDER OF KIDNEY AND URETER 06/04/2014 QUINCY REES RAGHAV K 593.9 UNSPECIFIED DISORDER OF KIDNEY AND URETER 06/04/2014 MADL BARLEY STEEPER, OLMAN L 593.9 UNSPECIFIED DISORDER OF KIDNEY AND URETER 06/04/2014 QUINCY REES RAGHAV K 593.9 UNSPECIFIED DISORDER OF KIDNEY AND URETER 08/04/2014 QUINCY DO RAGHAV K Ot 305.1 TOBACCO USE DISORDER 08/04/2014 QUINCY REES RAGHAV K Ot 401.9 HYPERTENSION NOS 08/04/2014 QUINCY REES RAGHAV K Ot 486 PNEUMONIA, ORGANISM NOS 08/04/2014 QUINCY REES RAGHAV K Ot 518.84 ACUTE AND CHRONIC RESPIRATORY FAILURE 08/04/2014 QUINCY REES RAGHAV K Ot 530.81 ESOPHAGEAL REFLUX 08/04/2014 QUINCY REES RAGHAV K Ot V04.81 ND FOR PROPHYLACTIC VACCIN AND INOCULATI 08/04/2014 QUINCY REES RAGHAV K Ot 305.1 08/04/2014 QUINCY REES RAGHAV K Ot 401.9 08/04/2014 QUINCY REES RAGHAV K Ot 486 08/04/2014 MATHEW DO RAGHAV K Ot 518.84 08/04/2014 QUINCY REES RAGHAV K Ot 530.81 08/04/2014 QUINCY REES RAGHAV K Ot V04.81 12/15/2014 JUAN C FRANCISCO BARLEY STEEPER Ot 998.12 HEMATOMA COMPLIC A PROC 12/15/2014 JUAN C FRANCISCO BARLEY STEEPER Ot 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 01/12/2015 AMAYA LAO, LASHAY Vargas Ot 305.1 TOBACCO USE DISORDER 01/12/2015 LASHAY CONDE MD Ot 305.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-UNSPEC 01/12/2015 LASHAY CONDE MD Ot 305.50 OPIOID ABUSE-UNSPEC 01/12/2015 LASHAY CONDE MD Ot 496 CHR AIRWAY OBSTRUCT NEC 01/12/2015 LASHAY CONDE MD Ot 584.9 ACUTE RENAL FAILURE, UNSPECIFIED 01/12/2015 LASHAY CONDE MD Ot 965.09 POISONING-OPIATES NEC 01/12/2015 LASHAY CONDE MD Ot E850.2 ACC POISON-OPIATES NEC 03/07/2015 PAIGE WAITE MD Ot 296.80 BIPOLAR DISORDER, UNSPECIFIED 03/07/2015 PAIGE WAITE MD Ot 300.00 ANXIETY STATE NOS 03/07/2015 PAIGE WAITE MD Ot 303.90 ALCOH DEP NEC/NOS-UNSPEC 03/07/2015 PAIGE WAITE MD Ot 305.1 TOBACCO USE DISORDER 03/07/2015 PAIGE WAITE MD Ot 338.29 OTHER CHRONIC PAIN 03/07/2015 PAIGE WAITE MD Ot 491.21 OBSTR CHRONIC BRONCHITIS, W (ACUTE) EXAC 03/07/2015 PAIGE WAITE MD Ot 733.00 OSTEOPOROSIS NOS 03/07/2015 PAIGE WAITE MD Ot V03.82 PROPHYLACTIC VACC AGAINST STREPTOCOCCUS 03/07/2015 PAIGE WAITE MD Ot V12.61 PERSONAL HISTORY, PNEUMONIA (RECURRENT) 03/07/2015 PAIGE WAITE MD Ot V12.79 PERSONAL HISTORY OTH SPEC DIGESTIVE SYST 03/07/2015 PAIGE WAITE MD Ot V15.81 HX OF PAST NONCOMPLIANCE 03/07/2015 PAIGE WAITE MD Ot V46.2 SUPPLEMENTAL OXYGEN 03/07/2015 PAIGE WAITE MD Ot 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 07/14/2015 STEFFEN VALDERRAMA Ot F12.10 CANNABIS ABUSE, UNCOMPLICATED 07/14/2015 STEFFEN VALDERRAMA Ot F15.10 OTHER STIMULANT ABUSE, UNCOMPLICATED 07/14/2015 STEFFEN VALDERRAMA Ot F17.210 NICOTINE DEPENDENCE, CIGARETTES, UNCOMPL 07/14/2015 STEFFEN VALDERRAMA Ot F19.10 OTHER PSYCHOACTIVE SUBSTANCE ABUSE, UNCO 07/14/2015 STEFFEN VALDERRAMA Ot R10.9 UNSPECIFIED ABDOMINAL PAIN 07/14/2015 STEFFEN VALDERRAMA Ot R11.2 NAUSEA WITH VOMITING, UNSPECIFIED 07/14/2015 STEFFEN VALDERRAMA Ot Z89.512 ACQUIRED ABSENCE OF LEFT LEG BELOW KNEE 04/29/2016 STEFFEN VALDERRAMA Ot F17.210 NICOTINE DEPENDENCE, CIGARETTES, UNCOMPL 04/29/2016 STEFFEN VALDERRAMA Ot S63.612A UNSPECIFIED SPRAIN OF RIGHT MIDDLE FINGE 04/29/2016 STEFFEN VALDERRAMA Ot S69.91XA UNSP INJURY OF RIGHT WRIST, HAND AND FIN 04/29/2016 STEFFEN VALDERRAMA Ot W01.198A FALL SAME LEV FROM SLIP/TRIP W STRIKE AG 04/29/2016 STEFFEN VALDERRAMA Ot Y92.[address] [facility] NON-INSTITUT (PRIVATE 04/29/2016 STEFFEN VALDERRAMA Ot Y93.89 ACTIVITY, OTHER SPECIFIED 04/29/2016 STEFFEN VALDERRAMA Ot Y99.8 OTHER EXTERNAL CAUSE STATUS 07/15/2016 KADE RIVERA MD, Ot F17.210 NICOTINE DEPENDENCE, CIGARETTES, UNCOMPL 07/15/2016 KADE RIVERA MD Ot G89.29 OTHER CHRONIC PAIN 07/15/2016 KADE RIVERA MD, Ot J44.9 CHRONIC OBSTRUCTIVE PULMONARY DISEASE, U 07/15/2016 KADE RIVERA MD Ot R10.84 GENERALIZED ABDOMINAL PAIN 07/15/2016 KADE RIVERA MD Ot Z76.0 ENCOUNTER FOR ISSUE OF REPEAT PRESCRIPTI 07/15/2016 KADE RIVERA MD Ot Z79.899 OTHER SHELTER (CURRENT) DRUG THERAPY 07/15/2016 KADE RIVERA MD, Ot Z89.512 ACQUIRED ABSENCE OF LEFT LEG BELOW KNEE 07/17/2016 KADE RIVERA MD, Ot F17.210 NICOTINE DEPENDENCE, CIGARETTES, UNCOMPL 07/17/2016 KADE RIVERA MD Ot G89.29 OTHER CHRONIC PAIN 07/17/2016 KADE RIVERA MD, Ot J44.9 CHRONIC OBSTRUCTIVE PULMONARY DISEASE, U 07/17/2016 KADE RIVERA MD Ot R10.84 GENERALIZED ABDOMINAL PAIN 07/17/2016 KADE RIVERA MD Ot Z76.0 ENCOUNTER FOR ISSUE OF REPEAT PRESCRIPTI 07/17/2016 KADE RIVERA MD Ot Z79.899 OTHER SHELTER (CURRENT) DRUG THERAPY 07/17/2016 KADE RIVERA MD Ot Z89.512 ACQUIRED ABSENCE OF LEFT LEG BELOW KNEE 07/21/2016 JUAN C FRANCISCO APRN Ot F17.210 NICOTINE DEPENDENCE, CIGARETTES, UNCOMPL 07/21/2016 JUAN C FRANCISCO APRN Ot I77.819 AORTIC ECTASIA, UNSPECIFIED SITE 07/21/2016 JUAN C FRANCISCO APRN, Ot J44.9 CHRONIC OBSTRUCTIVE PULMONARY DISEASE, U 07/21/2016 JUAN C FRANCISCO APRN Ot M81.0 AGE-RELATED OSTEOPOROSIS W/O CURRENT PAT 07/21/2016 JUAN C FRANCISCO APRN Ot S22.42XA MULTIPLE FRACTURES OF RIBS, LEFT SIDE, I 07/21/2016 JUAN C FRANCISCO APRN Ot S29.9XXA UNSPECIFIED INJURY OF THORAX, INITIAL EN 07/21/2016 JUAN C FRANCISCO APRN Ot W18.12XA FALL FROM OR OFF TOILET W STRIKE AGAINST 07/21/2016 JUAN C FRANCISCO APRN Ot Y92.012 BATHROOM OF SINGLE-FAMILY (PRIVATE) HOUS 07/21/2016 JUAN C FRANCISCO APRN Ot Y93.9 ACTIVITY, UNSPECIFIED 07/21/2016 JUAN C FRANCISCO APRN Ot Y99.8 OTHER EXTERNAL CAUSE STATUS 07/23/2016 JUAN C FRANCISCO APRN Ot F17.210 NICOTINE DEPENDENCE, CIGARETTES, UNCOMPL 07/23/2016 JUAN C FRANCISCO APRN Ot I77.819 AORTIC ECTASIA, UNSPECIFIED SITE 07/23/2016 JUAN C FRANCISCO APRN, Ot J44.9 CHRONIC OBSTRUCTIVE PULMONARY DISEASE, U 07/23/2016 JUAN C FRANCISCO APRN Ot M81.0 AGE-RELATED OSTEOPOROSIS W/O CURRENT PAT 07/23/2016 JUAN C FRANCISCO APRN Ot S22.42XA MULTIPLE FRACTURES OF RIBS, LEFT SIDE, I 07/23/2016 JUAN C FRANCISCO APRN Ot S29.9XXA UNSPECIFIED INJURY OF THORAX, INITIAL EN 07/23/2016 JUAN C FRANCISCO APRN Ot W18.12XA FALL FROM OR OFF TOILET W STRIKE AGAINST 07/23/2016 JUAN C FRANCISCO APRN Ot Y92.012 BATHROOM OF SINGLE-FAMILY (PRIVATE) HOUS 07/23/2016 JUAN C FRANCISCO APRN Ot Y93.9 ACTIVITY, UNSPECIFIED 07/23/2016 JUAN C FRANCISCO APRN Ot Y99.8 OTHER EXTERNAL CAUSE STATUS 08/11/2016 YANI BOSTON MD Ot F10.21 ALCOHOL DEPENDENCE, IN REMISSION 08/11/2016 YANI BOSTON MD Ot F17.210 NICOTINE DEPENDENCE, CIGARETTES, UNCOMPL 08/11/2016 YANI BOSTON MD Ot F32.9 MAJOR DEPRESSIVE DISORDER, SINGLE EPISOD 08/11/2016 YANI BOSTON MD Ot F41.9 ANXIETY DISORDER, UNSPECIFIED 08/11/2016 YANI BOSTON MD, Ot J44.9 CHRONIC OBSTRUCTIVE PULMONARY DISEASE, U 08/11/2016 YANI BOSTON MD Ot K29.71 GASTRITIS, UNSPECIFIED, WITH BLEEDING 08/11/2016 YANI BOSTON MD Ot K59.00 CONSTIPATION, UNSPECIFIED 08/11/2016 YANI BOSTON MD Ot K85.90 ACUTE PANCREATITIS WITHOUT NECROSIS OR I 08/11/2016 YANI BOSTON MD Ot K86.3 PSEUDOCYST OF PANCREAS 08/11/2016 YANI BOSTON MD Ot M81.0 AGE-RELATED OSTEOPOROSIS W/O CURRENT PAT 08/11/2016 YANI BOSTON MD Ot 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 08/17/2016 LASHAY CONDE MD Ot F10.21 ALCOHOL DEPENDENCE, IN REMISSION 08/17/2016 LASHAY CONDE MD Ot F17.210 NICOTINE DEPENDENCE, CIGARETTES, UNCOMPL 08/17/2016 LASHAY CONDE MD Ot F32.9 MAJOR DEPRESSIVE DISORDER, SINGLE EPISOD 08/17/2016 LASHAY CONDE MD Ot F41.9 ANXIETY DISORDER, UNSPECIFIED 08/17/2016 LASHAY CONDE MD Ot J44.9 CHRONIC OBSTRUCTIVE PULMONARY DISEASE, U 08/17/2016 LASHAY CONDE MD Ot K29.70 GASTRITIS, UNSPECIFIED, WITHOUT BLEEDING 08/17/2016 AMAYA LAO, LASHAY Vargas Ot K86.1 OTHER CHRONIC PANCREATITIS 08/17/2016 LASHAY CONDE MD Ot K86.3 PSEUDOCYST OF PANCREAS 08/17/2016 AMAYA LAO, LASHAY Vargas Ot M81.0 AGE-RELATED OSTEOPOROSIS W/O CURRENT PAT 08/17/2016 LASHAY CONDE MD Ot 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 05/21/2017 JUAN C FRANCISCO APRN Ot F32.9 MAJOR DEPRESSIVE DISORDER, SINGLE EPISOD 05/21/2017 JUAN C FRANCISCO APRN Ot F41.9 ANXIETY DISORDER, UNSPECIFIED 05/21/2017 JUAN C FRANCISCO APRN Ot J43.9 EMPHYSEMA, UNSPECIFIED 05/21/2017 JUAN C FRANCISCO APRN Ot K86.1 OTHER CHRONIC PANCREATITIS 05/21/2017 JUAN C FRANCISCO APRN Ot K86.3 PSEUDOCYST OF PANCREAS 05/21/2017 JUAN C FRANCISCO APRN Ot R10.84 GENERALIZED ABDOMINAL PAIN 05/21/2017 JUAN C FRANCISCO APRN Ot Z86.73 PRSNL HX OF TIA (TIA), AND CEREB INFRC W 05/21/2017 JUAN C FRANCISCO APRN Ot Z87.19 PERSONAL HISTORY OF OTHER DISEASES OF TH 05/21/2017 JUAN C FRANCISCO APRN Ot Z89.9 ACQUIRED ABSENCE OF LIMB, UNSPECIFIED 05/21/2017 JUAN C FRANCISCO APRN Ot Z90.710 ACQUIRED ABSENCE OF BOTH CERVIX AND UTER 08/07/2017 ASHLEIGH ORTEGA DO Ot A41.9 SEPSIS, UNSPECIFIED ORGANISM 08/07/2017 ASHLEIGH ORTEGA DO Ot B96.20 UNSP ESCHERICHIA COLI THE CAUSE OF DI 08/07/2017 ASHLEIGH ORTEGA DO Ot E83.42 HYPOMAGNESEMIA 08/07/2017 ASHLEIGH ORTEGA DO Ot E86.0 DEHYDRATION 08/07/2017 ASHLEIGH ORTEGA DO Ot E87.2 ACIDOSIS 08/07/2017 ASHLEIGH ORTEGA DO Ot F17.210 NICOTINE DEPENDENCE, CIGARETTES, UNCOMPL 08/07/2017 ASHLEIGH ORTEGA DO Ot F32.9 MAJOR DEPRESSIVE DISORDER, SINGLE EPISOD 08/07/2017 ASHLEIGH ORTEGA DO Ot F41.9 ANXIETY DISORDER, UNSPECIFIED 08/07/2017 ASHLEIGH ORTEGA DO Ot J43.8 OTHER EMPHYSEMA 08/07/2017 ASHLEIGH ORTEGA DO, Ot M81.0 AGE-RELATED OSTEOPOROSIS W/O CURRENT PAT 08/07/2017 ASHLEIGH ORTEGA DO Ot N17.9 ACUTE KIDNEY FAILURE, UNSPECIFIED 08/07/2017 ASHLEIGH ORTEGA DO Ot N39.0 URINARY TRACT INFECTION, SITE NOT SPECIF 08/07/2017 ASHLEIGH ORTEGA DO Ot T39.1X4A POISONING BY 4-AMINOPHENOL DERIVATIVES, 08/07/2017 ASHLEIGH ORTEGA DO Ot Z86.73 PRSNL HX OF TIA (TIA), AND CEREB INFRC W 08/07/2017 ASHLEIGH ORTEGA DO Ot Z90.710 ACQUIRED ABSENCE OF BOTH CERVIX AND UTER 08/07/2017 ASHLEIGH ORTEGA DO Ot A41.9 SEPSIS, UNSPECIFIED ORGANISM 08/07/2017 ASHLEIGH ORTEGA DO Ot B96.20 UNSP ESCHERICHIA COLI THE CAUSE OF DI 08/07/2017 ASHLEIGH ORTEGA DO Ot E83.42 HYPOMAGNESEMIA 08/07/2017 ASHLEIGH ORTEGA DO Ot E86.0 DEHYDRATION 08/07/2017 ASHLEIGH ORTEGA DO Ot E87.2 ACIDOSIS 08/07/2017 ASHLEIGH ORTEGA DO Ot F17.210 NICOTINE DEPENDENCE, CIGARETTES, UNCOMPL 08/07/2017 ASHLEIGH ORTEGA DO Ot F32.9 MAJOR DEPRESSIVE DISORDER, SINGLE EPISOD 08/07/2017 ASHLEIGH ORTEGA DO, Ot F41.9 ANXIETY DISORDER, UNSPECIFIED 08/07/2017 ASHLEIGH ORTEGA DO Ot J43.8 OTHER EMPHYSEMA 08/07/2017 ASHLEIGH ORTEGA DO Ot M81.0 AGE-RELATED OSTEOPOROSIS W/O CURRENT PAT 08/07/2017 ASHLEIGH ORTEGA DO Ot N17.9 ACUTE KIDNEY FAILURE, UNSPECIFIED 08/07/2017 ASHLEIGH ORTEGA DO Ot N39.0 URINARY TRACT INFECTION, SITE NOT SPECIF 08/07/2017 ASHLEIGH ORTEGA DO Ot T39.1X4A POISONING BY 4-AMINOPHENOL DERIVATIVES, 08/07/2017 ASHLEIGH ORTEGA DO Ot Z86.73 PRSNL HX OF TIA (TIA), AND CEREB INFRC W 08/07/2017 ASHLEIGH ORTEGA DO Ot Z90.710 ACQUIRED ABSENCE OF BOTH CERVIX AND UTER 08/08/2017 ASHLEIGH ORTEGA DO, Ot A41.9 SEPSIS, UNSPECIFIED ORGANISM 08/08/2017 ASHLEIGH ORTEGA DO Ot B96.20 UNSP ESCHERICHIA COLI THE CAUSE OF DI 08/08/2017 ASHLEIGH ORTEGA DO Ot E83.42 HYPOMAGNESEMIA 08/08/2017 ASHLEIGH ORTEGA DO Ot E86.0 DEHYDRATION 08/08/2017 ASHLEIGH ORTEGA DO Ot E87.2 ACIDOSIS 08/08/2017 ASHLEIGH ORTEGA DO Ot F17.210 NICOTINE DEPENDENCE, CIGARETTES, UNCOMPL 08/08/2017 ASHLEIGH ORTEGA DO Ot F32.9 MAJOR DEPRESSIVE DISORDER, SINGLE EPISOD 08/08/2017 ASHLEIGH ORTEGA DO Ot F41.9 ANXIETY DISORDER, UNSPECIFIED 08/08/2017 ASHLEIGH ORTEGA DO Ot J43.8 OTHER EMPHYSEMA 08/08/2017 ASHLEIGH ORTEGA DO Ot M81.0 AGE-RELATED OSTEOPOROSIS W/O CURRENT PAT 08/08/2017 ASHLEIGH ORTEGA DO Ot N17.9 ACUTE KIDNEY FAILURE, UNSPECIFIED 08/08/2017 ASHLEIGH ORTEGA DO, Ot N39.0 URINARY TRACT INFECTION, SITE NOT SPECIF 08/08/2017 ASHLEIGH ORTEGA DO Ot T39.1X4A POISONING BY 4-AMINOPHENOL DERIVATIVES, 08/08/2017 ASHLEIGH ORTEGA DO Ot Z86.73 PRSNL HX OF TIA (TIA), AND CEREB INFRC W 08/08/2017 ASHLEIGH ORTEGA DO Ot Z90.710 ACQUIRED ABSENCE OF BOTH CERVIX AND UTER 08/08/2017 ASHLEIGH ORTEGA DO Ot A41.51 SEPSIS DUE TO ESCHERICHIA COLI [E. COLI] 08/08/2017 ASHLEIGH ORTEGA DO Ot A41.9 SEPSIS, UNSPECIFIED ORGANISM 08/08/2017 ASHLEIGH ORTEGA DO Ot B96.20 UNSP ESCHERICHIA COLI THE CAUSE OF DI 08/08/2017 ASHLEIGH ORTEGA DO Ot D50.9 IRON DEFICIENCY ANEMIA, UNSPECIFIED 08/08/2017 ASHLEIGH ORTEGA DO Ot D63.1 ANEMIA IN CHRONIC KIDNEY DISEASE 08/08/2017 ASHLEIGH ORTEGA DO Ot E83.42 HYPOMAGNESEMIA 08/08/2017 ASHLEIGH ORTEGA DO Ot E86.0 DEHYDRATION 08/08/2017 ASHLEIGH ORTEGA DO Ot E87.2 ACIDOSIS 08/08/2017 ASHLEIGH ORTEGA DO Ot E87.6 HYPOKALEMIA 08/08/2017 ASHLEIGH ORTEGA DO Ot F17.210 NICOTINE DEPENDENCE, CIGARETTES, UNCOMPL 08/08/2017 ASHLEIGH ORTEGA DO Ot F32.9 MAJOR DEPRESSIVE DISORDER, SINGLE EPISOD 08/08/2017 ASHLEIGH ORTEGA DO Ot F41.9 ANXIETY DISORDER, UNSPECIFIED 08/08/2017 ASHLEIGH ORTEGA DO, Ot J43.8 OTHER EMPHYSEMA 08/08/2017 ASHLEIGH ORTEGA DO Ot M81.0 AGE-RELATED OSTEOPOROSIS W/O CURRENT PAT 08/08/2017 ASHLEIGH ORTEGA DO, Ot N17.9 ACUTE KIDNEY FAILURE, UNSPECIFIED 08/08/2017 ASHLEIGH ORTEGA DO, Ot N18.9 CHRONIC KIDNEY DISEASE, UNSPECIFIED 08/08/2017 ASHLEIGH ORTEGA DO Ot N39.0 URINARY TRACT INFECTION, SITE NOT SPECIF 08/08/2017 ASHLEIGH ORTEGA DO Ot R53.81 OTHER MALAISE 08/08/2017 ASHLEIGH ORTEGA DO, Ot T39.1X4A POISONING BY 4-AMINOPHENOL DERIVATIVES, 08/08/2017 ASHLEIGH ORTEGA DO Ot Z86.73 PRSNL HX OF TIA (TIA), AND CEREB INFRC W 08/08/2017 ASHLEIGH ORTEGA DO Ot 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 08/08/2017 ASHLEIGH ORTEGA DO Ot Z90.710 ACQUIRED ABSENCE OF BOTH CERVIX AND UTER 11/07/2017 CAYETANO LAO, FER Li Ot F17.210 NICOTINE DEPENDENCE, CIGARETTES, UNCOMPL 11/07/2017 CAYETANO LAO, FER Li Ot F32.9 MAJOR DEPRESSIVE DISORDER, SINGLE EPISOD 11/07/2017 CAYETANO LAO, FER Li Ot F41.9 ANXIETY DISORDER, UNSPECIFIED 11/07/2017 CAYETANO LAO, FER Li Ot J44.1 CHRONIC OBSTRUCTIVE PULMONARY DISEASE W 11/07/2017 FER MONTEIRO MD, Ot M54.5 LOW BACK PAIN 11/07/2017 FER MONTEIRO MD, Ot M81.0 AGE-RELATED OSTEOPOROSIS W/O CURRENT PAT 11/07/2017 FER MONTEIRO MD, Ot N28.9 DISORDER OF KIDNEY AND URETER, UNSPECIFI 11/07/2017 FER MONTEIRO MD, Ot N39.0 URINARY TRACT INFECTION, SITE NOT SPECIF 11/07/2017 FER MONTEIRO MD, Ot R06.02 SHORTNESS OF BREATH 11/07/2017 FER MONTEIRO MD, Ot R07.89 OTHER CHEST PAIN 11/07/2017 FER MONTEIRO MD, Ot Z79.51 SHELTER (CURRENT) USE OF 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 11/07/2017 FER MONTEIRO MD, Ot 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.52 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) USE OF SYSTEMIC STER 11/07/2017 FER MONTEIRO MD, Ot Z82.49 FAMILY HX OF ISCHEM HEART DIS AND OTH DI 11/07/2017 FER MONTEIRO MD, Ot Z86.73 PRSNL HX OF TIA (TIA), AND CEREB INFRC W 11/07/2017 FER MONTEIRO MD, Ot Z87.19 PERSONAL HISTORY OF OTHER DISEASES OF TH 11/07/2017 FER MONTEIRO MD, Ot Z88.0 ALLERGY STATUS TO PENICILLIN 11/07/2017 FER MONTEIRO MD, Ot Z88.1 ALLERGY STATUS TO OTHER ANTIBIOTIC AGENT 11/07/2017 FER MONTEIRO MD, Ot Z88.8 ALLERGY STATUS TO [facility] DRUG/MEDS/BIOL SUB 11/07/2017 FER MONTEIRO MD, Ot Z89.512 ACQUIRED ABSENCE OF LEFT LEG BELOW KNEE 11/07/2017 FER MONTEIRO MD, Ot Z90.710 ACQUIRED ABSENCE OF BOTH CERVIX AND UTER Procedures Code Description Performed By Performed On 96.04 05/18/2011 96.71 05/18/2011 42374 ROUTINE VENIPUNCTURE 02/11/2014 78751 [employer]ITOX 02/11/2014 35786 CBC 02/11/2014 23892 CMP 02/11/2014 [id number] GFR CALC (RESULT ONLY) 02/11/2014 20857 TSH 02/11/2014 85303 ROUTINE VENIPUNCTURE 06/04/2014 38024 BMP 06/04/2014 65461 ROUTINE VENIPUNCTURE 08/30/2014 19133 URINE DRUG SCREEN (IN-HOUSE ) 08/30/2014 01212 CMP 08/30/2014 31763 NO CHARGE 09/10/2014 Results Test Result Range Complete blood count (CBC) with automated white blood cell (WBC) differential - 07/15/16 05:28 Blood leukocytes automated count (number/volume) 9.0 10*3/uL 4.3-11.0 Blood erythrocytes automated count (number/volume) 4.75 10*6/uL 4.35-5.85 Venous blood hemoglobin measurement (mass/volume) 17.0 g/dL 11.5-16.0 Blood hematocrit (volume fraction) 51 % 35-52 Automated erythrocyte mean corpuscular volume 107 [foz_us] 80-99 Automated erythrocyte mean corpuscular hemoglobin (mass per erythrocyte) 36 pg 25-34 Automated erythrocyte mean corpuscular hemoglobin concentration measurement ( mass/volume) 34 g/dL 32-36 Automated erythrocyte distribution width ratio 17.5 % 10.0-14.5 Automated blood platelet count (count/volume) 264 10*3/uL 130-400 Automated blood platelet mean volume measurement 10.7 [foz_us] 7.4-10.4 Automated blood neutrophils/100 leukocytes 57 % 42-75 Automated blood lymphocytes/100 leukocytes 27 % 12-44 Blood monocytes/100 leukocytes 13 % 0-12 Automated blood eosinophils/100 leukocytes 1 % 0-10 Automated blood basophils/100 leukocytes 1 % 0-10 Blood neutrophils automated count (number/volume) 5.2 10*3 1.8-7.8 Blood lymphocytes automated count (number/volume) 2.4 10*3 1.0-4.0 Blood monocytes automated count (number/volume) 1.2 10*3 0.0-1.0 Automated eosinophil count 0.1 10*3/uL 0.0-0.3 Automated blood basophil count (count/volume) 0.1 10*3/uL 0.0-0.1 Comprehensive metabolic panel - 07/15/16 05:28 Serum or plasma sodium measurement (moles/volume) 140 mmol/L 135-145 Serum or plasma potassium measurement (moles/volume) 4.4 mmol/L 3.6-5.0 Serum or plasma chloride measurement (moles/volume) 114 mmol/L 98-107 Carbon dioxide 13 mmol/L 21-32 Serum or plasma anion gap determination (moles/volume) 13 mmol/L 5-14 Serum or plasma urea nitrogen measurement (mass/volume) 19 mg/dL 7-18 Serum or plasma creatinine measurement (mass/volume) 1.18 mg/dL 0.60-1.30 Serum or plasma urea nitrogen/creatinine mass ratio 16 NRG Serum or plasma creatinine measurement with calculation of estimated glomerular filtration rate 49 NRG Serum or plasma glucose measurement (mass/volume) 111 mg/dL 70-105 Serum or plasma calcium measurement (mass/volume) 10.5 mg/dL 8.5-10.1 Serum or plasma total bilirubin measurement (mass/volume) 0.3 mg/dL 0.1-1.0 Serum or plasma alkaline phosphatase measurement (enzymatic activity/volume) 85 U/L 40-136 Serum or plasma aspartate aminotransferase measurement (enzymatic activity/ volume) 12 U/L 5-34 Serum or plasma alanine aminotransferase measurement (enzymatic activity/volume ) 7 U/L 0-55 Serum or plasma protein measurement (mass/volume) 7.5 g/dL 6.4-8.2 Serum or plasma albumin measurement (mass/volume) 4.5 g/dL 3.2-4.5 Lipase - 07/15/16 05:28 Lipase 91 U/L 8-78 Complete blood count (CBC) with automated white blood cell (WBC) differential - 08/10/16 00:15 Blood leukocytes automated count (number/volume) 17.3 10*3/uL 4.3-11.0 Blood erythrocytes automated count (number/volume) 3.87 10*6/uL 4.35-5.85 Venous blood hemoglobin measurement (mass/volume) 14.1 g/dL 11.5-16.0 Blood hematocrit (volume fraction) 41 % 35-52 Automated erythrocyte mean corpuscular volume 107 [foz_us] 80-99 Automated erythrocyte mean corpuscular hemoglobin (mass per erythrocyte) 36 pg 25-34 Automated erythrocyte mean corpuscular hemoglobin concentration measurement ( mass/volume) 34 g/dL 32-36 Automated erythrocyte distribution width ratio 16.3 % 10.0-14.5 Automated blood platelet count (count/volume) 372 10*3/uL 130-400 Automated blood platelet mean volume measurement 11.0 [foz_us] 7.4-10.4 Automated blood neutrophils/100 leukocytes 84 % 42-75 Automated blood lymphocytes/100 leukocytes 5 % 12-44 Blood monocytes/100 leukocytes 11 % 0-12 Automated blood eosinophils/100 leukocytes 0 % 0-10 Automated blood basophils/100 leukocytes 0 % 0-10 Blood neutrophils automated count (number/volume) 14.5 10*3 1.8-7.8 Blood lymphocytes automated count (number/volume) 0.9 10*3 1.0-4.0 Blood monocytes automated count (number/volume) 1.9 10*3 0.0-1.0 Automated eosinophil count 0.1 10*3/uL 0.0-0.3 Automated blood basophil count (count/volume) 0.0 10*3/uL 0.0-0.1 Comprehensive metabolic panel - 08/10/16 00:15 Serum or plasma sodium measurement (moles/volume) 140 mmol/L 135-145 Serum or plasma potassium measurement (moles/volume) 4.3 mmol/L 3.6-5.0 Serum or plasma chloride measurement (moles/volume) 109 mmol/L 98-107 Carbon dioxide 16 mmol/L 21-32 Serum or plasma anion gap determination (moles/volume) 15 mmol/L 5-14 Serum or plasma urea nitrogen measurement (mass/volume) 34 mg/dL 7-18 Serum or plasma creatinine measurement (mass/volume) 1.18 mg/dL 0.60-1.30 Serum or plasma urea nitrogen/creatinine mass ratio 29 NRG Serum or plasma creatinine measurement with calculation of estimated glomerular filtration rate 49 NRG Serum or plasma glucose measurement (mass/volume) 108 mg/dL 70-105 Serum or plasma calcium measurement (mass/volume) 9.2 mg/dL 8.5-10.1 Serum or plasma total bilirubin measurement (mass/volume) 0.4 mg/dL 0.1-1.0 Serum or plasma alkaline phosphatase measurement (enzymatic activity/volume) 84 U/L 40-136 Serum or plasma aspartate aminotransferase measurement (enzymatic activity/ volume) 23 U/L 5-34 Serum or plasma alanine aminotransferase measurement (enzymatic activity/volume ) 18 U/L 0-55 Serum or plasma protein measurement (mass/volume) 6.4 g/dL 6.4-8.2 Serum or plasma albumin measurement (mass/volume) 3.3 g/dL 3.2-4.5 Lipase - 08/10/16 00:15 Lipase 180 U/L 8-78 Blood manual differential performed detection - 08/10/16 00:15 Blood monocytes/100 leukocytes 7 % NRG Manual blood segmented neutrophils/100 leukocytes 81 % NRG Blood band neutrophils/100 leukocytes 6 % NRG Manual blood lymphocytes/100 leukocytes 6 % NRG Blood erythrocyte morphology finding identification NORMAL NRG Serum or plasma amylase measurement (enzymatic activity/volume) - 08/10/16 00: 15 Serum or plasma amylase measurement (enzymatic activity/volume) 121 U/L 25-125 Blood lactic acid measurement (moles/volume) - 08/10/16 02:00 Blood lactic acid measurement (moles/volume) 1.0 mmol/L 0.5-2.0 Bacterial blood culture - 08/10/16 02:00 QUANTITY OF GROWTH Isolated NRG Bacterial blood culture [id number] NRG Complete urinalysis with reflex to culture - 08/10/16 02:05 Urine color determination YELLOW NRG Urine clarity determination CLEAR NRG Urine pH measurement by test strip 5 5-9 Specific gravity of urine by test strip 1.015 1.016- 1.022 Urine protein assay by test strip, semi-quantitative 2+ NEGATIVE Urine glucose detection by automated test strip NEGATIVE NEGATIVE Erythrocytes detection in urine sediment by light microscopy NEGATIVE NEGATIVE Urine ketones detection by automated test strip NEGATIVE NEGATIVE Urine nitrite detection by test strip NEGATIVE NEGATIVE Urine total bilirubin detection by test strip NEGATIVE NEGATIVE Urine urobilinogen measurement by automated test strip (mass/volume) NORMAL NORMAL Urine leukocyte esterase detection by dipstick NEGATIVE NEGATIVE Automated urine sediment erythrocyte count by microscopy (number/high power field) NONE NRG Automated urine sediment leukocyte count by microscopy (number/high power field ) NONE NRG Bacteria detection in urine sediment by light microscopy NEGATIVE NRG Squamous epithelial cells detection in urine sediment by light microscopy 5-10 NRG Crystals detection in urine sediment by light microscopy NONE NRG Casts detection in urine sediment by light microscopy NONE NRG Mucus detection in urine sediment by light microscopy NEGATIVE NRG Complete urinalysis with reflex to culture NO NRG Bacterial blood culture - 08/10/16 02:27 Bacterial blood culture NG NRG Complete blood count (CBC) with automated white blood cell (WBC) differential - 08/10/16 12:16 Blood leukocytes automated count (number/volume) 12.6 10*3/uL 4.3-11.0 Blood erythrocytes automated count (number/volume) 3.15 10*6/uL 4.35-5.85 Venous blood hemoglobin measurement (mass/volume) 11.6 g/dL 11.5-16.0 Blood hematocrit (volume fraction) 34 % 35-52 Automated erythrocyte mean corpuscular volume 108 [foz_us] 80-99 Automated erythrocyte mean corpuscular hemoglobin (mass per erythrocyte) 37 pg 25-34 Automated erythrocyte mean corpuscular hemoglobin concentration measurement ( mass/volume) 34 g/dL 32-36 Automated erythrocyte distribution width ratio 16.6 % 10.0-14.5 Automated blood platelet count (count/volume) 358 10*3/uL 130-400 Automated blood platelet mean volume measurement 10.1 [foz_us] 7.4-10.4 Automated blood neutrophils/100 leukocytes 77 % 42-75 Automated blood lymphocytes/100 leukocytes 10 % 12-44 Blood monocytes/100 leukocytes 12 % 0-12 Automated blood eosinophils/100 leukocytes 1 % 0-10 Automated blood basophils/100 leukocytes 0 % 0-10 Blood neutrophils automated count (number/volume) 9.7 10*3 1.8-7.8 Blood lymphocytes automated count (number/volume) 1.2 10*3 1.0-4.0 Blood monocytes automated count (number/volume) 1.5 10*3 0.0-1.0 Automated eosinophil count 0.2 10*3/uL 0.0-0.3 Automated blood basophil count (count/volume) 0.1 10*3/uL 0.0-0.1 Comprehensive metabolic panel - 08/10/16 12:16 Serum or plasma sodium measurement (moles/volume) 140 mmol/L 135-145 Serum or plasma potassium measurement (moles/volume) 4.5 mmol/L 3.6-5.0 Serum or plasma chloride measurement (moles/volume) 113 mmol/L 98-107 Carbon dioxide 18 mmol/L 21-32 Serum or plasma anion gap determination (moles/volume) 9 mmol/L 5-14 Serum or plasma urea nitrogen measurement (mass/volume) 18 mg/dL 7-18 Serum or plasma creatinine measurement (mass/volume) 0.71 mg/dL 0.60-1.30 Serum or plasma urea nitrogen/creatinine mass ratio 25 NRG Serum or plasma creatinine measurement with calculation of estimated glomerular filtration rate > NRG Serum or plasma glucose measurement (mass/volume) 99 mg/dL 70-105 Serum or plasma calcium measurement (mass/volume) 8.3 mg/dL 8.5-10.1 Serum or plasma total bilirubin measurement (mass/volume) 0.3 mg/dL 0.1-1.0 Serum or plasma alkaline phosphatase measurement (enzymatic activity/volume) 74 U/L 40-136 Serum or plasma aspartate aminotransferase measurement (enzymatic activity/ volume) 16 U/L 5-34 Serum or plasma alanine aminotransferase measurement (enzymatic activity/volume ) 14 U/L 0-55 Serum or plasma protein measurement (mass/volume) 5.5 g/dL 6.4-8.2 Serum or plasma albumin measurement (mass/volume) 2.9 g/dL 3.2-4.5 Lipase - 08/10/16 12:16 Lipase 89 U/L 8-78 Complete blood count (CBC) with automated white blood cell (WBC) differential - 08/11/16 05:20 Blood leukocytes automated count (number/volume) 12.3 10*3/uL 4.3-11.0 Blood erythrocytes automated count (number/volume) 3.17 10*6/uL 4.35-5.85 Venous blood hemoglobin measurement (mass/volume) 11.3 g/dL 11.5-16.0 Blood hematocrit (volume fraction) 35 % 35-52 Automated erythrocyte mean corpuscular volume 111 [foz_us] 80-99 Automated erythrocyte mean corpuscular hemoglobin (mass per erythrocyte) 36 pg 25-34 Automated erythrocyte mean corpuscular hemoglobin concentration measurement ( mass/volume) 32 g/dL 32-36 Automated erythrocyte distribution width ratio 16.6 % 10.0-14.5 Automated blood platelet count (count/volume) 319 10*3/uL 130-400 Automated blood platelet mean volume measurement 10.6 [foz_us] 7.4-10.4 Automated blood neutrophils/100 leukocytes 72 % 42-75 Automated blood lymphocytes/100 leukocytes 13 % 12-44 Blood monocytes/100 leukocytes 14 % 0-12 Automated blood eosinophils/100 leukocytes 1 % 0-10 Automated blood basophils/100 leukocytes 0 % 0-10 Blood neutrophils automated count (number/volume) 8.8 10*3 1.8-7.8 Blood lymphocytes automated count (number/volume) 1.6 10*3 1.0-4.0 Blood monocytes automated count (number/volume) 1.8 10*3 0.0-1.0 Automated eosinophil count 0.2 10*3/uL 0.0-0.3 Automated blood basophil count (count/volume) 0.1 10*3/uL 0.0-0.1 Whole blood basic metabolic panel - 08/11/16 05:20 Serum or plasma sodium measurement (moles/volume) 140 mmol/L 135-145 Serum or plasma potassium measurement (moles/volume) 4.5 mmol/L 3.6-5.0 Serum or plasma chloride measurement (moles/volume) 109 mmol/L 98-107 Carbon dioxide 24 mmol/L 21-32 Serum or plasma anion gap determination (moles/volume) 7 mmol/L 5-14 Serum or plasma urea nitrogen measurement (mass/volume) 10 mg/dL 7-18 Serum or plasma creatinine measurement (mass/volume) 0.64 mg/dL 0.60-1.30 Serum or plasma urea nitrogen/creatinine mass ratio 16 NRG Serum or plasma creatinine measurement with calculation of estimated glomerular filtration rate > NRG Serum or plasma glucose measurement (mass/volume) 94 mg/dL 70-105 Serum or plasma calcium measurement (mass/volume) 8.6 mg/dL 8.5-10.1 Lipase - 08/11/16 05:20 Lipase 95 U/L 8-78 Complete blood count (CBC) with automated white blood cell (WBC) differential - 08/17/16 03:28 Blood leukocytes automated count (number/volume) 15.8 10*3/uL 4.3-11.0 Blood erythrocytes automated count (number/volume) 3.01 10*6/uL 4.35-5.85 Venous blood hemoglobin measurement (mass/volume) 11.2 g/dL 11.5-16.0 Blood hematocrit (volume fraction) 32 % 35-52 Automated erythrocyte mean corpuscular volume 106 [foz_us] 80-99 Automated erythrocyte mean corpuscular hemoglobin (mass per erythrocyte) 37 pg 25-34 Automated erythrocyte mean corpuscular hemoglobin concentration measurement ( mass/volume) 35 g/dL 32-36 Automated erythrocyte distribution width ratio 15.5 % 10.0-14.5 Automated blood platelet count (count/volume) 427 10*3/uL 130-400 Automated blood platelet mean volume measurement 10.5 [foz_us] 7.4-10.4 Automated blood neutrophils/100 leukocytes 80 % 42-75 Automated blood lymphocytes/100 leukocytes 8 % 12-44 Blood monocytes/100 leukocytes 11 % 0-12 Automated blood eosinophils/100 leukocytes 1 % 0-10 Automated blood basophils/100 leukocytes 0 % 0-10 Blood neutrophils automated count (number/volume) 12.7 10*3 1.8-7.8 Blood lymphocytes automated count (number/volume) 1.2 10*3 1.0-4.0 Blood monocytes automated count (number/volume) 1.8 10*3 0.0-1.0 Automated eosinophil count 0.1 10*3/uL 0.0-0.3 Automated blood basophil count (count/volume) 0.0 10*3/uL 0.0-0.1 Blood manual differential performed detection - 08/17/16 03:28 Blood monocytes/100 leukocytes 13 % NRG Manual blood segmented neutrophils/100 leukocytes 73 % NRG Blood band neutrophils/100 leukocytes 0 % NRG Manual blood lymphocytes/100 leukocytes 6 % NRG Manual eosinophils/100 leukocytes in nose 2 % NRG Manual blood basophils/100 leukocytes 0 % NRG Blood lymphocytes variant/100 leukocytes 6 % NRG Blood anisocytosis detection by light microscopy MODERATE NRG Blood macrocytes detection by light microscopy MODERATE NRG Blood microcytes detection by light microscopy SLIGHT NRG Blood target cells detection by light microscopy MODERATE NRG Comprehensive metabolic panel - 08/17/16 03:28 Serum or plasma sodium measurement (moles/volume) 140 mmol/L 135-145 Serum or plasma potassium measurement (moles/volume) 4.4 mmol/L 3.6-5.0 Serum or plasma chloride measurement (moles/volume) 112 mmol/L 98-107 Carbon dioxide 17 mmol/L 21-32 Serum or plasma anion gap determination (moles/volume) 11 mmol/L 5-14 Serum or plasma urea nitrogen measurement (mass/volume) 12 mg/dL 7-18 Serum or plasma creatinine measurement (mass/volume) 0.67 mg/dL 0.60-1.30 Serum or plasma urea nitrogen/creatinine mass ratio 18 NRG Serum or plasma creatinine measurement with calculation of estimated glomerular filtration rate > NRG Serum or plasma glucose measurement (mass/volume) 96 mg/dL 70-105 Serum or plasma calcium measurement (mass/volume) 8.0 mg/dL 8.5-10.1 Serum or plasma total bilirubin measurement (mass/volume) 0.4 mg/dL 0.1-1.0 Serum or plasma alkaline phosphatase measurement (enzymatic activity/volume) 106 U/L 40-136 Serum or plasma aspartate aminotransferase measurement (enzymatic activity/ volume) 25 U/L 5-34 Serum or plasma alanine aminotransferase measurement (enzymatic activity/volume ) 46 U/L 0-55 Serum or plasma protein measurement (mass/volume) 5.0 g/dL 6.4-8.2 Serum or plasma albumin measurement (mass/volume) 2.5 g/dL 3.2-4.5 Magnesium - 08/17/16 03:28 Magnesium 1.6 mg/dL 1.8-2.4 Serum or plasma amylase measurement (enzymatic activity/volume) - 08/17/16 03: 28 Serum or plasma amylase measurement (enzymatic activity/volume) 59 U /L 25-125 Lipase - 08/17/16 03:28 Lipase 84 U/L 8-78 Complete urinalysis with reflex to culture - 08/17/16 05:33 Urine color determination YELLOW NRG Urine clarity determination CLEAR NRG Urine pH measurement by test strip 5 5-9 Specific gravity of urine by test strip 1.015 1.016- 1.022 Urine protein assay by test strip, semi-quantitative 1+ NEGATIVE Urine glucose detection by automated test strip NEGATIVE NEGATIVE Erythrocytes detection in urine sediment by light microscopy NEGATIVE NEGATIVE Urine ketones detection by automated test strip NEGATIVE NEGATIVE Urine nitrite detection by test strip NEGATIVE NEGATIVE Urine total bilirubin detection by test strip NEGATIVE NEGATIVE Urine urobilinogen measurement by automated test strip (mass/volume) NORMAL NORMAL Urine leukocyte esterase detection by dipstick NEGATIVE NEGATIVE Automated urine sediment erythrocyte count by microscopy (number/high power field) NONE NRG Automated urine sediment leukocyte count by microscopy (number/high power field ) NONE NRG Bacteria detection in urine sediment by light microscopy TRACE NRG Squamous epithelial cells detection in urine sediment by light microscopy 2-5 NRG Crystals detection in urine sediment by light microscopy NONE NRG Casts detection in urine sediment by light microscopy NONE NRG Mucus detection in urine sediment by light microscopy NEGATIVE NRG Complete urinalysis with reflex to culture NO NRG Urine drug screening test - 08/17/16 05:33 Urine phencyclidine detection by screening method NEGATIVE NEGATIVE Urine benzodiazepines detection by screening method NEGATIVE NEGATIVE Urine cocaine detection NEGATIVE NEGATIVE Urine amphetamines detection by screening method NEGATIVE NEGATIVE Urine methamphetamine detection by screening method NEGATIVE NEGATIVE Urine cannabinoids detection by screening method NEGATIVE NEGATIVE Urine opiates detection by screening method NEGATIVE NEGATIVE Urine barbiturates detection NEGATIVE NEGATIVE Screening urine tricyclic antidepressants detection NEGATIVE NEGATIVE Urine methadone detection by screening method NEGATIVE NEGATIVE Urine oxycodone detection NEGATIVE NEGATIVE Urine propoxyphene detection NEGATIVE NEGATIVE Blood lactic acid measurement (moles/volume) - 08/17/16 06:04 Blood lactic acid measurement (moles/volume) 0.7 mmol/L 0.5-2.0 Bacterial blood culture - 08/17/16 06:04 Bacterial blood culture NG NRG Bacterial blood culture - 08/17/16 06:40 Bacterial blood culture NG NRG Complete blood count (CBC) with automated white blood cell (WBC) differential - 05/21/17 17:30 Blood leukocytes automated count (number/volume) 10.3 10*3/uL 4.3-11.0 Blood erythrocytes automated count (number/volume) 3.69 10*6/uL 4.35-5.85 Venous blood hemoglobin measurement (mass/volume) 10.1 g/dL 11.5-16.0 Blood hematocrit (volume fraction) 34 % 35-52 Automated erythrocyte mean corpuscular volume 93 [foz_us] 80-99 Automated erythrocyte mean corpuscular hemoglobin (mass per erythrocyte) 27 pg 25-34 Automated erythrocyte mean corpuscular hemoglobin concentration measurement ( mass/volume) 29 g/dL 32-36 Automated erythrocyte distribution width ratio 17.3 % 10.0-14.5 Automated blood platelet count (count/volume) 390 10*3/uL 130-400 Automated blood platelet mean volume measurement 10.5 [foz_us] 7.4-10.4 Automated blood neutrophils/100 leukocytes 74 % 42-75 Automated blood lymphocytes/100 leukocytes 16 % 12-44 Blood monocytes/100 leukocytes 9 % 0-12 Automated blood eosinophils/100 leukocytes 1 % 0-10 Automated blood basophils/100 leukocytes 1 % 0-10 Blood neutrophils automated count (number/volume) 7.6 10*3 1.8-7.8 Blood lymphocytes automated count (number/volume) 1.6 10*3 1.0-4.0 Blood monocytes automated count (number/volume) 0.9 10*3 0.0-1.0 Automated eosinophil count 0.1 10*3/uL 0.0-0.3 Automated blood basophil count (count/volume) 0.1 10*3/uL 0.0-0.1 Complete urinalysis with reflex to culture - 05/21/17 17:30 Urine color determination YELLOW NRG Urine clarity determination CLEAR NRG Urine pH measurement by test strip 5 5-9 Specific gravity of urine by test strip 1.020 1.016- 1.022 Urine protein assay by test strip, semi-quantitative 1+ NEGATIVE Urine glucose detection by automated test strip NEGATIVE NEGATIVE Erythrocytes detection in urine sediment by light microscopy NEGATIVE NEGATIVE Urine ketones detection by automated test strip NEGATIVE NEGATIVE Urine nitrite detection by test strip NEGATIVE NEGATIVE Urine total bilirubin detection by test strip NEGATIVE NEGATIVE Urine urobilinogen measurement by automated test strip (mass/volume) NORMAL NORMAL Urine leukocyte esterase detection by dipstick NEGATIVE NEGATIVE Automated urine sediment erythrocyte count by microscopy (number/high power field) NONE NRG Automated urine sediment leukocyte count by microscopy (number/high power field ) [HPF] NRG Bacteria detection in urine sediment by light microscopy TRACE NRG Squamous epithelial cells detection in urine sediment by light microscopy 2-5 NRG Crystals detection in urine sediment by light microscopy NONE NRG Casts detection in urine sediment by light microscopy NONE NRG Mucus detection in urine sediment by light microscopy NEGATIVE NRG Complete urinalysis with reflex to culture NO NRG Urine drug screening test - 05/21/17 17:30 Urine phencyclidine detection by screening method NEGATIVE NEGATIVE Urine benzodiazepines detection by screening method NEGATIVE NEGATIVE Urine cocaine detection NEGATIVE NEGATIVE Urine amphetamines detection by screening method NEGATIVE NEGATIVE Urine methamphetamine detection by screening method NEGATIVE NEGATIVE Urine cannabinoids detection by screening method NEGATIVE NEGATIVE Urine opiates detection by screening method NEGATIVE NEGATIVE Urine barbiturates detection NEGATIVE NEGATIVE Screening urine tricyclic antidepressants detection NEGATIVE NEGATIVE Urine methadone detection by screening method NEGATIVE NEGATIVE Urine oxycodone detection NEGATIVE NEGATIVE Urine propoxyphene detection NEGATIVE NEGATIVE Comprehensive metabolic panel - 05/21/17 17:30 Serum or plasma sodium measurement (moles/volume) 139 mmol/L 135-145 Serum or plasma potassium measurement (moles/volume) 4.8 mmol/L 3.6-5.0 Serum or plasma chloride measurement (moles/volume) 110 mmol/L 98-107 Carbon dioxide 18 mmol/L 21-32 Serum or plasma anion gap determination (moles/volume) 11 mmol/L 5-14 Serum or plasma urea nitrogen measurement (mass/volume) 22 mg/dL 7-18 Serum or plasma creatinine measurement (mass/volume) 0.80 mg/dL 0.60-1.30 Serum or plasma urea nitrogen/creatinine mass ratio 28 NRG Serum or plasma creatinine measurement with calculation of estimated glomerular filtration rate > NRG Serum or plasma glucose measurement (mass/volume) 93 mg/dL 70-105 Serum or plasma calcium measurement (mass/volume) 9.3 mg/dL 8.5-10.1 Serum or plasma total bilirubin measurement (mass/volume) 0.2 mg/dL 0.1-1.0 Serum or plasma alkaline phosphatase measurement (enzymatic activity/volume) 62 U/L 40-136 Serum or plasma aspartate aminotransferase measurement (enzymatic activity/ volume) 10 U/L 5-34 Serum or plasma alanine aminotransferase measurement (enzymatic activity/volume ) 8 U/L 0-55 Serum or plasma protein measurement (mass/volume) 7.2 g/dL 6.4-8.2 Serum or plasma albumin measurement (mass/volume) 4.1 g/dL 3.2-4.5 Lipase - 05/21/17 17:30 Lipase 120 U/L 8-78 Serum or plasma ethanol measurement (mass/volume) - 05/21/17 17:30 Serum or plasma ethanol measurement (mass/volume) < mg/dL <10 Serum or plasma C reactive protein measurement (mass/volume) - 05/21/17 17:30 Serum or plasma C reactive protein measurement (mass/volume) 0.06 mg /dL 0.00-0.50 Blood lactic acid measurement (moles/volume) - 08/05/17 15:43 Blood lactic acid measurement (moles/volume) 0.89 mmol/L 0.50-2.00 Complete blood count (CBC) with automated white blood cell (WBC) differential - 08/05/17 15:43 Blood leukocytes automated count (number/volume) 15.2 10*3/uL 4.3-11.0 Blood erythrocytes automated count (number/volume) 3.04 10*6/uL 4.35-5.85 Venous blood hemoglobin measurement (mass/volume) 7.6 g/dL 11.5-16.0 Blood hematocrit (volume fraction) 26 % 35-52 Automated erythrocyte mean corpuscular volume 86 [foz_us] 80-99 Automated erythrocyte mean corpuscular hemoglobin (mass per erythrocyte) 25 pg 25-34 Automated erythrocyte mean corpuscular hemoglobin concentration measurement ( mass/volume) 29 g/dL 32-36 Automated erythrocyte distribution width ratio 16.7 % 10.0-14.5 Automated blood platelet count (count/volume) 135 10*3/uL 130-400 Automated blood platelet mean volume measurement 13.6 [foz_us] 7.4-10.4 Automated blood neutrophils/100 leukocytes 83 % 42-75 Automated blood lymphocytes/100 leukocytes 6 % 12-44 Blood monocytes/100 leukocytes 11 % 0-12 Automated blood eosinophils/100 leukocytes 0 % 0-10 Automated blood basophils/100 leukocytes 0 % 0-10 Blood neutrophils automated count (number/volume) 12.6 10*3 1.8-7.8 Blood lymphocytes automated count (number/volume) 0.9 10*3 1.0-4.0 Blood monocytes automated count (number/volume) 1.7 10*3 0.0-1.0 Automated eosinophil count 0.0 10*3/uL 0.0-0.3 Automated blood basophil count (count/volume) 0.0 10*3/uL 0.0-0.1 Comprehensive metabolic panel - 08/05/17 15:43 Serum or plasma sodium measurement (moles/volume) 139 mmol/L 135-145 Serum or plasma potassium measurement (moles/volume) 4.6 mmol/L 3.6-5.0 Serum or plasma chloride measurement (moles/volume) 111 mmol/L 98-107 Carbon dioxide 14 mmol/L 21-32 Serum or plasma anion gap determination (moles/volume) 14 mmol/L 5-14 Serum or plasma urea nitrogen measurement (mass/volume) 55 mg/dL 7-18 Serum or plasma creatinine measurement (mass/volume) 2.38 mg/dL 0.60-1.30 Serum or plasma urea nitrogen/creatinine mass ratio 23 NRG Serum or plasma creatinine measurement with calculation of estimated glomerular filtration rate 22 NRG Serum or plasma glucose measurement (mass/volume) 102 mg/dL 70-105 Serum or plasma calcium measurement (mass/volume) 8.5 mg/dL 8.5-10.1 Serum or plasma total bilirubin measurement (mass/volume) 0.3 mg/dL 0.1-1.0 Serum or plasma alkaline phosphatase measurement (enzymatic activity/volume) 89 U/L 40-136 Serum or plasma aspartate aminotransferase measurement (enzymatic activity/ volume) 21 U/L 5-34 Serum or plasma alanine aminotransferase measurement (enzymatic activity/volume ) 17 U/L 0-55 Serum or plasma protein measurement (mass/volume) 6.0 g/dL 6.4-8.2 Serum or plasma albumin measurement (mass/volume) 2.6 g/dL 3.2-4.5 PT panel in platelet poor plasma by coagulation assay - 08/05/17 15:43 Prothrombin time (PT) in platelet poor plasma by coagulation assay 15.9 s 12.2-14.7 INR in platelet poor plasma or blood by coagulation assay 1.3 0.8-1.4 Activated partial thromboplastin time (aPTT) in platelet poor plasma bycoagulation assay - 08/05/17 15:43 Activated partial thromboplastin time (aPTT) in platelet poor plasma bycoagulation assay 35 s 24-35 Blood manual differential performed detection - 08/05/17 15:43 Blood monocytes/100 leukocytes 10 % NRG Manual blood segmented neutrophils/100 leukocytes 85 % NRG Manual blood lymphocytes/100 leukocytes 5 % NRG Blood hypochromia detection by light microscopy MODERATE NRG Blood target cells detection by light microscopy SLIGHT NRG Blood hypersegmented neutrophils detection by light microscopy SLIGHT NRG Serum or plasma troponin i.cardiac measurement (mass/volume) - 08/05/17 15:43 Serum or plasma troponin i.cardiac measurement (mass/volume) < ng/ mL <0.30 Serum or plasma thyrotropin measurement by detection limit <=0.05 miu/l (units/ volume) - 08/05/17 15:43 Serum or plasma thyrotropin measurement by detection limit <=0.05 miu/l (units/ volume) 3.11 u[iU]/mL 0.35-4.94 Serum or plasma amylase measurement (enzymatic activity/volume) - 08/05/17 15: 43 Serum or plasma amylase measurement (enzymatic activity/volume) 52 U /L 25-125 Lipase - 08/05/17 15:43 Lipase 66 U/L 8-78 Serum or plasma salicylates measurement (mass/volume) - 08/05/17 15:43 Serum or plasma salicylates measurement (mass/volume) < mg/dL 5.0-20.0 Serum or plasma acetaminophen measurement (mass/volume) - 08/05/17 15:43 Serum or plasma acetaminophen measurement (mass/volume) 41 ug/mL 10-30 Serum or plasma ethanol measurement (mass/volume) - 08/05/17 15:43 Serum or plasma ethanol measurement (mass/volume) < mg/dL <10 Bacterial blood culture - 08/05/17 15:43 QUANTITY OF GROWTH . NRG Bacterial blood culture SEE COMMEN NRG Urine drug screening test - 08/05/17 16:20 Urine phencyclidine detection by screening method NEGATIVE NEGATIVE Urine benzodiazepines detection by screening method NEGATIVE NEGATIVE Urine cocaine detection NEGATIVE NEGATIVE Urine amphetamines detection by screening method NEGATIVE NEGATIVE Urine methamphetamine detection by screening method NEGATIVE NEGATIVE Urine cannabinoids detection by screening method NEGATIVE NEGATIVE Urine opiates detection by screening method NEGATIVE NEGATIVE Urine barbiturates detection NEGATIVE NEGATIVE Screening urine tricyclic antidepressants detection NEGATIVE NEGATIVE Urine methadone detection by screening method NEGATIVE NEGATIVE Urine oxycodone detection NEGATIVE NEGATIVE Urine propoxyphene detection NEGATIVE NEGATIVE Complete urinalysis with reflex to culture - 08/05/17 16:20 Urine color determination YELLOW NRG Urine clarity determination VERY CLOUDY NRG Urine pH measurement by test strip 5 5-9 Specific gravity of urine by test strip 1.015 1.016- 1.022 Urine protein assay by test strip, semi-quantitative 3+ NEGATIVE Urine glucose detection by automated test strip NEGATIVE NEGATIVE Erythrocytes detection in urine sediment by light microscopy 2+ NEGATIVE Urine ketones detection by automated test strip NEGATIVE NEGATIVE Urine nitrite detection by test strip POSITIVE NEGATIVE Urine total bilirubin detection by test strip NEGATIVE NEGATIVE Urine urobilinogen measurement by automated test strip (mass/volume) NORMAL NORMAL Urine leukocyte esterase detection by dipstick 3+ NEGATIVE Automated urine sediment erythrocyte count by microscopy (number/high power field) [HPF] NRG Automated urine sediment leukocyte count by microscopy (number/high power field ) TNTC NRG Bacteria detection in urine sediment by light microscopy MODERATE NRG Crystals detection in urine sediment by light microscopy NONE NRG Casts detection in urine sediment by light microscopy NONE NRG Mucus detection in urine sediment by light microscopy NEGATIVE NRG Complete urinalysis with reflex to culture YES NRG Bacterial urine culture - 08/05/17 16:20 Bacterial urine culture [id number] NRG COLONY COUNT >100,000/ML NRG FTX;REPORTABLE CEFTRIAXONE REPORTED 08/06/17 16:18 NR FREE TEXT ENTRY 2 SENSITIVITY REPORTED 08/07/17 7:00 NRG FREE TEXT ENTRY 3 PLUS, ACTINOMYCTES 10-100,00/ML NR Bacterial susceptibility panel - 08/05/17 16:20 Gentamicin susceptibility test by minimum inhibitory concentration < = NRG Trimethoprim/sulfamethoxazole susceptibility test by minimum inhibitoryconcentration S NRG Ampicillin susceptibility test by minimum inhibitory concentration < = NRG Tobramycin susceptibility test by minimum inhibitory concentration < = NRG Cefazolin susceptibility test by minimum inhibitory concentration < = NRG Ceftriaxone susceptibility test by minimum inhibitory concentration <= NRG Ampicillin/sulbactam susceptibility test by minimum inhibitory concentration S NRG Piperacillin/tazobactam susceptibility test by minimum inhibitory concentration <= NRG Ciprofloxacin susceptibility test by minimum inhibitory concentration <= NRG Meropenem susceptibility test by minimum inhibitory concentration < = NRG Nitrofurantoin susceptibility test by minimum inhibitory concentration <= NRG Aztreonam susceptibility test by minimum inhibitory concentration < = NRG Extended spectrum beta lactamase (ESBL) producing bacteria susceptibility test by minimum inhibitory concentration - [facility] Bacterial blood culture - 08/05/17 16:36 QUANTITY OF GROWTH . NR Bacterial blood culture SEE COMMEN NR Serum or plasma acetaminophen measurement (mass/volume) - 08/05/17 19:55 Serum or plasma acetaminophen measurement (mass/volume) < ug/mL 10-30 Methicillin resistant Staphylococcus aureus (MRSA) screening culture - 19:55 Methicillin resistant Staphylococcus aureus (MRSA) screening culture NEG NRG Complete blood count (CBC) with automated white blood cell (WBC) differential - 08/06/17 02:45 Blood leukocytes automated count (number/volume) 16.2 10*3/uL 4.3-11.0 Blood erythrocytes automated count (number/volume) 2.94 10*6/uL 4.35-5.85 Venous blood hemoglobin measurement (mass/volume) 7.4 g/dL 11.5-16.0 Blood hematocrit (volume fraction) 25 % 35-52 Automated erythrocyte mean corpuscular volume 85 [foz_us] 80-99 Automated erythrocyte mean corpuscular hemoglobin (mass per erythrocyte) 25 pg 25-34 Automated erythrocyte mean corpuscular hemoglobin concentration measurement ( mass/volume) 30 g/dL 32-36 Automated erythrocyte distribution width ratio 16.3 % 10.0-14.5 Automated blood platelet count (count/volume) 129 10*3/uL 130-400 Automated blood platelet mean volume measurement 13.1 [foz_us] 7.4-10.4 Automated blood neutrophils/100 leukocytes 85 % 42-75 Automated blood lymphocytes/100 leukocytes 4 % 12-44 Blood monocytes/100 leukocytes 11 % 0-12 Automated blood eosinophils/100 leukocytes 0 % 0-10 Automated blood basophils/100 leukocytes 0 % 0-10 Blood neutrophils automated count (number/volume) 13.8 10*3 1.8-7.8 Blood lymphocytes automated count (number/volume) 0.6 10*3 1.0-4.0 Blood monocytes automated count (number/volume) 1.8 10*3 0.0-1.0 Automated eosinophil count 0.0 10*3/uL 0.0-0.3 Automated blood basophil count (count/volume) 0.0 10*3/uL 0.0-0.1 PT panel in platelet poor plasma by coagulation assay - 08/06/17 02:45 Prothrombin time (PT) in platelet poor plasma by coagulation assay 16.8 s 12.2-14.7 INR in platelet poor plasma or blood by coagulation assay 1.4 0.8-1.4 Comprehensive metabolic panel - 08/06/17 02:45 Serum or plasma sodium measurement (moles/volume) 139 mmol/L 135-145 Serum or plasma potassium measurement (moles/volume) 3.7 mmol/L 3.6-5.0 Serum or plasma chloride measurement (moles/volume) 111 mmol/L 98-107 Carbon dioxide 11 mmol/L 21-32 Serum or plasma anion gap determination (moles/volume) 17 mmol/L 5-14 Serum or plasma urea nitrogen measurement (mass/volume) 49 mg/dL 7-18 Serum or plasma creatinine measurement (mass/volume) 2.13 mg/dL 0.60-1.30 Serum or plasma urea nitrogen/creatinine mass ratio 23 NRG Serum or plasma creatinine measurement with calculation of estimated glomerular filtration rate 25 NRG Serum or plasma glucose measurement (mass/volume) 109 mg/dL 70-105 Serum or plasma calcium measurement (mass/volume) 7.8 mg/dL 8.5-10.1 Serum or plasma total bilirubin measurement (mass/volume) 0.2 mg/dL 0.1-1.0 Serum or plasma alkaline phosphatase measurement (enzymatic activity/volume) 86 U/L 40-136 Serum or plasma aspartate aminotransferase measurement (enzymatic activity/ volume) 22 U/L 5-34 Serum or plasma alanine aminotransferase measurement (enzymatic activity/volume ) 13 U/L 0-55 Serum or plasma protein measurement (mass/volume) 5.1 g/dL 6.4-8.2 Serum or plasma albumin measurement (mass/volume) 2.3 g/dL 3.2-4.5 Serum or plasma phosphate measurement (mass/volume) - 08/06/17 02:45 Serum or plasma phosphate measurement (mass/volume) 2.8 mg/dL 2.3-4.7 Magnesium - 08/06/17 02:45 Magnesium 1.7 mg/dL 1.8-2.4 Serum or plasma acetaminophen measurement (mass/volume) - 08/06/17 02:45 Serum or plasma acetaminophen measurement (mass/volume) < ug/mL 10-30 Complete blood count (CBC) with automated white blood cell (WBC) differential - 08/07/17 05:22 Blood leukocytes automated count (number/volume) 12.7 10*3/uL 4.3-11.0 Blood erythrocytes automated count (number/volume) 2.59 10*6/uL 4.35-5.85 Venous blood hemoglobin measurement (mass/volume) 6.5 g/dL 11.5-16.0 Blood hematocrit (volume fraction) 23 % 35-52 Automated erythrocyte mean corpuscular volume 87 [foz_us] 80-99 Automated erythrocyte mean corpuscular hemoglobin (mass per erythrocyte) 25 pg 25-34 Automated erythrocyte mean corpuscular hemoglobin concentration measurement ( mass/volume) 29 g/dL 32-36 Automated erythrocyte distribution width ratio 17.0 % 10.0-14.5 Automated blood platelet count (count/volume) 113 10*3/uL 130-400 Automated blood platelet mean volume measurement TNP 7.4 -10.4 Automated blood neutrophils/100 leukocytes 87 % 42-75 Automated blood lymphocytes/100 leukocytes 3 % 12-44 Blood monocytes/100 leukocytes 9 % 0-12 Automated blood eosinophils/100 leukocytes 1 % 0-10 Automated blood basophils/100 leukocytes 0 % 0-10 Blood neutrophils automated count (number/volume) 11.0 10*3 1.8-7.8 Blood lymphocytes automated count (number/volume) 0.4 10*3 1.0-4.0 Blood monocytes automated count (number/volume) 1.1 10*3 0.0-1.0 Automated eosinophil count 0.1 10*3/uL 0.0-0.3 Automated blood basophil count (count/volume) 0.0 10*3/uL 0.0-0.1 Whole blood basic metabolic panel - 08/07/17 05:22 Serum or plasma sodium measurement (moles/volume) 140 mmol/L 135-145 Serum or plasma potassium measurement (moles/volume) 3.1 mmol/L 3.6-5.0 Serum or plasma chloride measurement (moles/volume) 115 mmol/L 98-107 Carbon dioxide 15 mmol/L 21-32 Serum or plasma anion gap determination (moles/volume) 10 mmol/L 5-14 Serum or plasma urea nitrogen measurement (mass/volume) 38 mg/dL 7-18 Serum or plasma creatinine measurement (mass/volume) 2.04 mg/dL 0.60-1.30 Serum or plasma urea nitrogen/creatinine mass ratio 19 NRG Serum or plasma creatinine measurement with calculation of estimated glomerular filtration rate 26 NRG Serum or plasma glucose measurement (mass/volume) 108 mg/dL 70-105 Serum or plasma calcium measurement (mass/volume) 8.1 mg/dL 8.5-10.1 Serum or plasma phosphate measurement (mass/volume) - 08/07/17 05:22 Serum or plasma phosphate measurement (mass/volume) 2.5 mg/dL 2.3-4.7 Magnesium - 08/07/17 05:22 Magnesium 1.9 mg/dL 1.8-2.4 IRON TEST - 08/07/17 05:22 Serum or plasma iron measurement (mass/volume) < % 35- 180 Complete blood count (CBC) with automated white blood cell (WBC) differential - 08/08/17 05:43 Blood leukocytes automated count (number/volume) 12.3 10*3/uL 4.3-11.0 Blood erythrocytes automated count (number/volume) 2.80 10*6/uL 4.35-5.85 Venous blood hemoglobin measurement (mass/volume) 7.1 g/dL 11.5-16.0 Blood hematocrit (volume fraction) 25 % 35-52 Automated erythrocyte mean corpuscular volume 90 [foz_us] 80-99 Automated erythrocyte mean corpuscular hemoglobin (mass per erythrocyte) 25 pg 25-34 Automated erythrocyte mean corpuscular hemoglobin concentration measurement ( mass/volume) 28 g/dL 32-36 Automated erythrocyte distribution width ratio 17.2 % 10.0-14.5 Automated blood platelet count (count/volume) 145 10*3/uL 130-400 Automated blood platelet mean volume measurement 13.3 [foz_us] 7.4-10.4 Automated blood neutrophils/100 leukocytes 84 % 42-75 Automated blood lymphocytes/100 leukocytes 5 % 12-44 Blood monocytes/100 leukocytes 9 % 0-12 Automated blood eosinophils/100 leukocytes 2 % 0-10 Automated blood basophils/100 leukocytes 0 % 0-10 Blood neutrophils automated count (number/volume) 10.3 10*3 1.8-7.8 Blood lymphocytes automated count (number/volume) 0.6 10*3 1.0-4.0 Blood monocytes automated count (number/volume) 1.1 10*3 0.0-1.0 Automated eosinophil count 0.2 10*3/uL 0.0-0.3 Automated blood basophil count (count/volume) 0.0 10*3/uL 0.0-0.1 Comprehensive metabolic panel - 08/08/17 05:43 Serum or plasma sodium measurement (moles/volume) 143 mmol/L 135-145 Serum or plasma potassium measurement (moles/volume) 4.1 mmol/L 3.6-5.0 Serum or plasma chloride measurement (moles/volume) 116 mmol/L 98-107 Carbon dioxide 14 mmol/L 21-32 Serum or plasma anion gap determination (moles/volume) 13 mmol/L 5-14 Serum or plasma urea nitrogen measurement (mass/volume) 28 mg/dL 7-18 Serum or plasma creatinine measurement (mass/volume) 1.76 mg/dL 0.60-1.30 Serum or plasma urea nitrogen/creatinine mass ratio 16 NRG Serum or plasma creatinine measurement with calculation of estimated glomerular filtration rate 31 NRG Serum or plasma glucose measurement (mass/volume) 86 mg/dL 70-105 Serum or plasma calcium measurement (mass/volume) 8.4 mg/dL 8.5-10.1 Serum or plasma total bilirubin measurement (mass/volume) 0.2 mg/dL 0.1-1.0 Serum or plasma alkaline phosphatase measurement (enzymatic activity/volume) 216 U/L 40-136 Serum or plasma aspartate aminotransferase measurement (enzymatic activity/ volume) 18 U/L 5-34 Serum or plasma alanine aminotransferase measurement (enzymatic activity/volume ) 34 U/L 0-55 Serum or plasma protein measurement (mass/volume) 4.9 g/dL 6.4-8.2 Serum or plasma albumin measurement (mass/volume) 2.6 g/dL 3.2-4.5 Serum or plasma phosphate measurement (mass/volume) - 08/08/17 05:43 Serum or plasma phosphate measurement (mass/volume) 2.6 mg/dL 2.3-4.7 Magnesium - 08/08/17 05:43 Magnesium 1.7 mg/dL 1.8-2.4 Complete urinalysis with reflex to culture - 10/31/17 15:25 Urine color determination YELLOW NRG Urine clarity determination CLEAR NRG Urine pH measurement by test strip 6 5-9 Specific gravity of urine by test strip 1.015 1.016- 1.022 Urine protein assay by test strip, semi-quantitative 2+ NEGATIVE Urine glucose detection by automated test strip NEGATIVE NEGATIVE Erythrocytes detection in urine sediment by light microscopy NEGATIVE NEGATIVE Urine ketones detection by automated test strip NEGATIVE NEGATIVE Urine nitrite detection by test strip NEGATIVE NEGATIVE Urine total bilirubin detection by test strip NEGATIVE NEGATIVE Urine urobilinogen measurement by automated test strip (mass/volume) NORMAL NORMAL Urine leukocyte esterase detection by dipstick 2+ NEGATIVE Automated urine sediment erythrocyte count by microscopy (number/high power field) RARE NRG Automated urine sediment leukocyte count by microscopy (number/high power field ) > [HPF] NRG Bacteria detection in urine sediment by light microscopy FEW NRG Squamous epithelial cells detection in urine sediment by light microscopy 0-2 NRG Crystals detection in urine sediment by light microscopy NONE NRG Casts detection in urine sediment by light microscopy NONE NRG Mucus detection in urine sediment by light microscopy NEGATIVE NRG Complete urinalysis with reflex to culture YES NRG Bacterial urine culture - 10/31/17 15:25 Bacterial urine culture [id number] NRG COLONY COUNT 10,000/ML - 100,000/ML NRG FTX;REPORTABLE SENSITIVITY REPORTED 11/02 08:45 NRG Bacterial susceptibility panel - 10/31/17 15:25 Gentamicin susceptibility test by minimum inhibitory concentration < = NRG Trimethoprim/sulfamethoxazole susceptibility test by minimum inhibitoryconcentration S NRG Ampicillin susceptibility test by minimum inhibitory concentration 4 NRG Tobramycin susceptibility test by minimum inhibitory concentration < = NRG Cefazolin susceptibility test by minimum inhibitory concentration < = NRG Ceftriaxone susceptibility test by minimum inhibitory concentration <= NRG Ampicillin/sulbactam susceptibility test by minimum inhibitory concentration <= NRG Piperacillin/tazobactam susceptibility test by minimum inhibitory concentration S NRG Ciprofloxacin susceptibility test by minimum inhibitory concentration <= NRG Meropenem susceptibility test by minimum inhibitory concentration < = NRG Nitrofurantoin susceptibility test by minimum inhibitory concentration <= NRG Aztreonam susceptibility test by minimum inhibitory concentration < = NRG Extended spectrum beta lactamase (ESBL) producing bacteria susceptibility test by minimum inhibitory concentration - NRG Complete blood count (CBC) with automated white blood cell (WBC) differential - 10/31/17 16:43 Blood leukocytes automated count (number/volume) 8.0 10*3/uL 4.3-11.0 Blood erythrocytes automated count (number/volume) 3.58 10*6/uL 4.35-5.85 Venous blood hemoglobin measurement (mass/volume) 10.8 g/dL 11.5-16.0 Blood hematocrit (volume fraction) 36 % 35-52 Automated erythrocyte mean corpuscular volume 99 [foz_us] 80-99 Automated erythrocyte mean corpuscular hemoglobin (mass per erythrocyte) 30 pg 25-34 Automated erythrocyte mean corpuscular hemoglobin concentration measurement ( mass/volume) 30 g/dL 32-36 Automated erythrocyte distribution width ratio 17.9 % 10.0-14.5 Automated blood platelet count (count/volume) 293 10*3/uL 130-400 Automated blood platelet mean volume measurement 10.6 [foz_us] 7.4-10.4 Automated blood neutrophils/100 leukocytes 64 % 42-75 Automated blood lymphocytes/100 leukocytes 23 % 12-44 Blood monocytes/100 leukocytes 11 % 0-12 Automated blood eosinophils/100 leukocytes 2 % 0-10 Automated blood basophils/100 leukocytes 1 % 0-10 Blood neutrophils automated count (number/volume) 5.1 10*3 1.8-7.8 Blood lymphocytes automated count (number/volume) 1.8 10*3 1.0-4.0 Blood monocytes automated count (number/volume) 0.8 10*3 0.0-1.0 Automated eosinophil count 0.2 10*3/uL 0.0-0.3 Automated blood basophil count (count/volume) 0.1 10*3/uL 0.0-0.1 Comprehensive metabolic panel - 10/31/17 16:43 Serum or plasma sodium measurement (moles/volume) 138 mmol/L 135-145 Serum or plasma potassium measurement (moles/volume) 4.8 mmol/L 3.6-5.0 Serum or plasma chloride measurement (moles/volume) 113 mmol/L 98-107 Carbon dioxide 17 mmol/L 21-32 Serum or plasma anion gap determination (moles/volume) 8 mmol/L 5-14 Serum or plasma urea nitrogen measurement (mass/volume) 28 mg/dL 7-18 Serum or plasma creatinine measurement (mass/volume) 1.65 mg/dL 0.60-1.30 Serum or plasma urea nitrogen/creatinine mass ratio 17 NRG Serum or plasma creatinine measurement with calculation of estimated glomerular filtration rate 33 NRG Serum or plasma glucose measurement (mass/volume) 96 mg/dL 70-105 Serum or plasma calcium measurement (mass/volume) 9.0 mg/dL 8.5-10.1 Serum or plasma total bilirubin measurement (mass/volume) 0.1 mg/dL 0.1-1.0 Serum or plasma alkaline phosphatase measurement (enzymatic activity/volume) 68 U/L 40-136 Serum or plasma aspartate aminotransferase measurement (enzymatic activity/ volume) 8 U/L 5-34 Serum or plasma alanine aminotransferase measurement (enzymatic activity/volume ) < U/L 0-55 Serum or plasma protein measurement (mass/volume) 7.8 g/dL 6.4-8.2 Serum or plasma albumin measurement (mass/volume) 3.8 g/dL 3.2-4.5 Lipase - 10/31/17 16:43 Lipase 58 U/L 8-78 Serum or plasma C reactive protein measurement (mass/volume) - 10/31/17 16:43 Serum or plasma C reactive protein measurement (mass/volume) 0.25 mg /dL 0.00-0.50 Encounters ACCT No. Visit Date/Time Discharge Status Pt. Type Provider Facility Loc./Unit Complaint [id number] 12/01/2014 14:16:00 12/01/2014 23:59:59 CLS Outpatient OLMAN DSOUZA APRN [id number] 11/03/2014 15:54:00 11/03/2014 23:59:59 CLS Outpatient RAGHAV MATHEW DO [id number] 09/22/2014 09:53:00 09/22/2014 23:59:59 CLS Outpatient MADL BARLEY STEEPEROLMAN L [id number] 09/10/2014 10:06:00 09/10/2014 23:59:59 CLS Outpatient JESSICA BELLO [facility] [id number] 08/30/2014 11:21:00 08/30/2014 23:59:59 CLS Outpatient RAGHAV MATHEW DO [id number] 08/30/2014 11:21:00 08/30/2014 23:59:59 CLS Outpatient MADL BARLEY STEEPEROLMAN L [id number] 08/21/2014 15:24:00 08/21/2014 23:59:59 CLS Outpatient RAGHAV MATHEW DO [id number] 06/04/2014 09:54:00 06/04/2014 23:59:59 CLS Outpatient RAGHAV MATHEW DO [id number] 03/01/2014 10:22:00 03/01/2014 23:59:59 CLS Outpatient MADL BARLEY STEEPEROLMAN L [id number] 02/15/2014 11:06:00 02/15/2014 23:59:59 CLS Outpatient MADL BARLEY STEEPERJOA L [id number] 02/11/2014 09:45:00 02/11/2014 23:59:59 CLS Outpatient MADL BARLEY STEEPERJOA L [id number] 01/25/2014 13:20:00 01/25/2014 23:59:59 CLS Outpatient MADL BARLEY STEEPEROLMAN L [id number] 10/31/2017 15:16:00 10/31/2017 23:59:59 CLS Outpatient CAYETANO LAO, FER Li [facility] ER LEFT FLANK PAIN/ NAUSEA [id number] 08/05/2017 17:10:00 08/08/2017 14:00:00 DIS Inpatient ASHLEIGH ORTEGA DO [facility] 4TH TYLENOL OVERDOSE,ACUTE RENAL FAILURE,UTI [id number] 05/21/2017 16:24:00 05/21/2017 19:29:00 DIS Emergency JAUN C FRANCISCO BARLEY STEEPER [facility] ER ABDOMINAL PAIN [id number] 08/17/2016 06:00:00 08/17/2016 16:33:00 DIS Inpatient LASHAY CONDE MD [facility] 4TH INTRA ABDOMINAL FLUID COLLECTION,PANCREATIC [id number] 08/10/2016 04:32:00 08/11/2016 16:10:00 DIS Inpatient YANI BOSTON MD [facility] 4TH PANCREATITIS,GASTRITIS, ABD PAIN,N/V [id number] 07/21/2016 16:07:00 07/21/2016 19:07:00 DIS Emergency JUAN C FRANCISCO BARLEY STEEPER [facility] ER FALL/L SIDE RIB PAIN [id number] 07/15/2016 05:27:00 07/15/2016 06:22:00 DIS Emergency KADE RIVERA MD [facility] ER AB PAIN [id number] 04/29/2016 19:07:00 04/29/2016 20:49:00 DIS Emergency STEFFEN VALDERRAMA [facility] ER R MIDDLE FINGER INJ [id number] 07/14/2015 12:56:00 07/14/2015 14:28:00 DIS Emergency STEFFEN VALDERRAMA [facility] ER ABD PAIN V/D [id number] 03/06/2015 20:42:00 03/07/2015 15:15:00 DIS Inpatient PAIGE WAITE MD [facility] ICU SEPSIS,HYPOXIA, LEULOCYTOSIS,COPD EXACERBATION [id number] 01/11/2015 03:04:00 01/12/2015 07:52:00 DIS Inpatient LASHAY CONDE MD [facility] ICU DECREASED LOC SECONDARY TO NARCOTIC OD, UTI [id number] 12/15/2014 13:12:00 12/15/2014 13:51:00 DIS Emergency JUAN C FRANCISCO BARLEY STEEPER [facility] ER POST OP STUMP BLEEDING/ PAIN [id number] 10/09/2014 11:50:00 10/09/2014 23:59:59 CLS Emergency LEIA STARKS DO [facility] ER [id number] 08/04/2014 04:55:00 08/04/2014 14:14:00 DIS Inpatient RAGHAV MATHEW DO [facility] 4TH PNEUMONIA W/HYPOXIA;COPD [id number] 02/04/2014 19:32:00 02/04/2014 20:15:00 DIS Emergency JUAN C FRANCISCO APRN [facility] ER ARMSTRONG,STUMP PAIN [id number] 02/01/2014 12:25:00 02/01/2014 13:00:00 DIS Emergency LEIA STARKS DO [facility] ER STUMP PAIN/MIGRAINE [id number] 01/27/2014 12:08:00 01/27/2014 16:21:00 DIS Emergency FER MONTEIRO MD [facility] ER WANTS DETOX [id number] 01/21/2014 12:07:00 01/21/2014 13:05:00 DIS Emergency JUAN C FRANCISCO APRN [facility] ER PAIN/MULTIPLE AREAS [id number] 01/20/2014 15:28:00 01/20/2014 16:28:00 DIS Emergency RAUDEL REES LEIA K [facility] ER HIP,BACK PAIN [id number] 12/11/2013 11:39:00 12/11/2013 12:22:00 DIS Emergency JUAN C FRANCISCO APRN [facility] ER RIGHT FOOT PAIN [id number] 10/30/2013 19:54:00 10/30/2013 21:59:00 DIS Emergency JUAN C FRANCISCO APRN [facility] ER R FOOT PAIN [id number] 07/02/2013 10:27:00 07/03/2013 23:20:00 DIS Inpatient CATHY LAO, DEONNA Valverde [facility] ICU NARCOTIC OVERDOSE [id number] 05/21/2013 12:40:00 05/21/2013 14:44:00 DIS Emergency STEFFEN VALDERRAMA [facility] ER LEG PAIN [id number] 04/12/2013 22:51:00 04/13/2013 10:45:00 DIS Inpatient ANDREIA LAO, GREG Orozco [facility] ICU DRUG OVERDOSE [id number] 03/14/2013 13:55:00 03/15/2013 14:32:00 DIS Inpatient ELVIS NERI DO [facility] ICU DRUG OVERDOSE, PNEUMONIA [id number] 02/04/2013 22:46:00 02/06/2013 13:05:00 DIS Inpatient MARIANN LAO, PAIGE Villa [facility] 4TH PNEUMONIA [id number] 11/07/2017 23:54:00 ACT Emergency CAYETANO LAO, FER Li [facility] ER PAIN [id number] 12/15/2014 14:25:00 Document Registration [id number] 12/15/2014 14:25:00 Document Registration [id number] 12/15/2014 14:25:00 Document Registration [id number] 12/15/2014 14:25:00 Document Registration [id number] 12/15/2014 14:25:00 Document Registration [id number] 12/15/2014 14:25:00 Document Registration [id number] 12/15/2014 14:25:00 Document Registration [id number] 12/15/2014 14:25:00 Document Registration [id number] 12/15/2014 14:25:00 Document Registration [id number] 12/15/2014 14:25:00 Document Registration [id number] 12/15/2014 14:25:00 Document Registration [id number] 12/15/2014 14:25:00 Document Registration [id number] 12/15/2014 14:25:00 Document Registration [id number] 12/15/2014 14:25:00 Document Registration [id number] 12/15/2014 14:25:00 Document Registration [id number] 09/14/2012 16:44:00 Document Registration [id number] 07/28/2012 18:01:00 Document Registration [id number] 06/06/2012 20:36:00 Document Registration [id number] 03/18/2012 15:05:00 Document Registration [id number] 01/19/2012 11:42:00 Document Registration [id number] 09/19/2011 22:30:00 Document Registration [id number] 13:50:00 Document Registration [id number] 04/15/2011 18:14:00 Document Registration [id number] 12/11/2010 22:34:00 Document Registration [id number] 12/05/2010 18:52:00 Document Registration [id number] 10/27/2010 16:41:00 Document Registration [id number] 09/24/2010 16:25:00 Document Registration [id number] 10/24/2016 10:54:07 10/24/2016 23:59:59 [facility] Leonel Adkins
[2017-11-08 00:23] LABS: INR 0.8 (0.8-1.4); PROTHROMBIN TIME PATIENT 11.5 SEC (12.2-14.7)
[2017-11-08 00:28] LABS: BILIRUBIN,URINE NEGATIVE (NEGATIVE); CLARITY,URINE CLEAR; COLOR,URINE YELLOW; GLUCOSE, URINE (UA) NEGATIVE (NEGATIVE); KETONES,URINE NEGATIVE (NEGATIVE); LEUKOCYTE ESTERASE ,URINE 1+ (NEGATIVE); NITRITE,URINE NEGATIVE (NEGATIVE); PH,URINE 6.5 (5-9); PROTEIN,URINE 1+ (NEGATIVE); UROBILINOGEN,URINE NORMAL (NORMAL)
[2017-11-08 00:36] LABS: ALANINE AMINOTRANSFERASE 6 U/L (0-55); ALBUMIN 3.8 GM/DL (3.2-4.5); ALKALINE PHOSPHATASE 60 U/L (40-136); BILIRUBIN,TOTAL 0.2 MG/DL (0.1-1.0); BUN/CREATININE RATIO 25; CALCIUM 9.1 MG/DL (8.5-10.1); CARBON DIOXIDE 19 MMOL/L (21-32); CHLORIDE 112 MMOL/L (98-107); CREATININE SERUM 1.42 MG/DL (0.60-1.30); GFR ESTIMATED 39; GLUCOSE 95 MG/DL (70-105); LIPASE 124 U/L (8-78); MAGNESIUM 2.3 MG/DL (1.8-2.4); POTASSIUM 4.7 MMOL/L (3.6-5.0); SODIUM 139 MMOL/L (135-145)
[2017-11-08 00:39] LABS: BACTERIA,URINE TRACE /HPF
[2017-11-08 00:42] LABS: MYOGLOBIN SERUM 21.2 NG/ML (10.0-92.0)
[2017-11-08] MEDS ORDERED: fentaNYL INJECTION 100 MCG/2 ML AMP IVP ONE (00:45)
[2017-11-08] MEDS ORDERED: oxyCODONE/APAP 5/325MG (PERCOCET 5) TABLET PO ONE (01:00)
[2017-11-08] MEDS ORDERED: LIPA1CAP PO (01:14)
[2017-11-08] MEDS ORDERED: IPRA3AMP IH (01:14)
[2017-11-08] MEDS ORDERED: HYDR-3812 PO (01:14)
--- NOTE | 2017-11-08 01:14 | ED Chest Pain ---
General Chief Complaint: Abdominal/GI Problems Stated Complaint: PAIN Nursing Triage Note: PT TO ED 7 PER EMS FOR C/O "CHEST PAIN" BUT UPON EVAL, PT'S PAIN LUQ. REPORTS ONSET 1800 THIS EVENING. Nursing Sepsis Screen: No Definite Risk Source: patient Exam Limitations: no limitations History of Present Illness Date Seen by Provider: Nov 07, 2017 Time Seen by Provider: 23:54 Initial Comments This 47-year-old woman presents to the emergency room via EMS with complaint of chest pain. Pain started around 18:00. She rates her pain as 10 out of 10. EMS gave aspirin 324 mg and nitroglycerin times one. This did not improve her pain. She did vomit some clear liquid. EMS gave Zofran 4 mg. On examination patient was found to have a tender epigastrium. She does have a history of pancreatitis. Cough recently as well. Allergies and Home Medications Allergies Coded Allergies: ofloxacin (Verified Allergy, Mild, 08/10/16) Penicillins (Verified Allergy, Unknown, Pt has received Ceftriaxone & Cefepime in the past w/o issue, 08/06/17) amoxicillin (Verified Allergy, Unknown, 08/10/16) clavulanic acid (Verified Allergy, Unknown, 08/10/16) promethazine (Verified Allergy, Unknown, 08/10/16) propoxyphene (Verified Allergy, Unknown, 08/10/16) Home Medications Albuterol Sulfate 1 Puff Puff, 2 PUFF INH Q6H PRN for SHORTNESS OF BREATH, ( Reported) Budesonide/Formoterol Fumarate 10.2 Gm Hfa.aer.ad, 2 PUFF IH BID, (Reported) Buspirone HCl 10 Mg Tablet, 10 MG PO DAILY, (Reported) Cephalexin 500 Mg Capsule, 500 MG PO TID Prescribed by: FER ELIZALDE on 10/31/171835 Dicyclomine HCl 10 Mg Capsule, 10 MG PO QID PRN for STOMACH UPSET, (Reported) Gabapentin 600 Mg Tablet, 600 MG PO QID, (Reported) TAKES ALONG WITH 300MG CAPSULE FOR A TOTAL DOSE OF 900MG 4 TIMES DAILY Gabapentin 300 Mg Capsule, 300 MG PO QID, (Reported) TAKES ALONG WITH 600MG FOR A TOTAL DAILY DOSE OF 900MG 4 TIMES DAILY Hydrocodone/Acetaminophen 1 Each Tablet, 1 EACH PO Q6H PRN for PAIN-MODERATE TO SEVERE Prescribed by: FER ELIZALDE on 11/08/17113 Ipratropium/Albuterol Sulfate 3 Ml Ampul.neb, 3 ML IH Q4H PRN for SHORTNESS OF BREATH Prescribed by: ELVIS NERI on 08/08/171103 Ipratropium/Albuterol Sulfate 3 Ml Ampul.neb, 3 ML IH Q4H PRN for SHORTNESS OF BREATH Prescribed by: FER ELIZALDE on 11/08/17113 Iron Ps Cmplx/Vit B12/FA 1 Each Capsule, 1 EACH PO DAILY Prescribed by: ELVIS NERI on 08/08/171103 Lipase/Protease/Amylase 1 Each Capsule., 1 CAP PO TID, (Reported) Lipase/Protease/Amylase 1 Each Capsule.dr, 1 EACH PO TID Prescribed by: FER ELIZALDE on 11/08/17113 Omeprazole 20 Mg Capsule., 20 MG PO DAILY, (Reported) Ondansetron 8 Mg Tab.rapdis, 8 MG PO TID PRN for NAUSEA/VOMITING-1ST LINE, ( Reported) Ondansetron 4 Mg Tab.rapdis, 4 MG SL Q4H PRN for NAUSEA/VOMITING-1ST LINE Prescribed by: FER ELIZALDE on 10/31/171835 Pantoprazole Sodium 40 Mg Tablet.dr, 40 MG PO DAILY, (Reported) Prednisone 20 Mg Tab, 20 MG PO DAILY Prescribed by: FER ELIZALDE on 10/31/171835 Simethicone 80 Mg Tab.chew, 2-4 TAB PO PC PRN for INDIGESTION, (Reported) [Hydrocodone Bit/Acetaminophen] 5 TAB, 1 TAB PO Q6HR PRN for PAIN-MODERATE Prescribed by: ELVIS NERI on 08/08/171103 Patient Home Medication List Home Medication List Reviewed: Yes Review of Systems Constitutional: no symptoms reported EENTM: No Symptoms Reported Respiratory: See HPI Cardiovascular: See HPI Gastrointestinal: See HPI Genitourinary: No Symptoms Reported Musculoskeletal: no symptoms reported Skin: no symptoms reported Psychiatric/Neurological: No Symptoms Reported Endocrine: No Symptoms Reported Past Ndygulp-Jyrcwu-Egcfhk Hx Patient Social History Alcohol Use: Past History Recreational Drug Use: Yes (ETOH- NOT FOR LAST SIX MONTHS) Smoking Status: Current Everyday Smoker Type Used: Cigarettes 2nd Hand Smoke Exposure: No Recent Foreign Travel: No Contact w/Someone Who Travel: No Recent Infectious Disease Expo: No Recent Hopitalizations: No Physical Abuse: No Sexual Abuse: No Mistreated: No Fear: No Immunizations Up To Date Tetanus Booster (TDap): Less than 5yrs PED Vaccines UTD: No Date of Pneumonia Vaccine: Jul 26, 2009 Date of Influenza Vaccine: Sep 26, 2013 Seasonal Allergies Seasonal Allergies: No Surgeries History of Surgeries: Yes (REMOVAL OF TEETH, hernia, dnc, l leg amputation) Surgeries: Amputation, Gallbladder, Hysterectomy Respiratory History of Respiratory Disorde: Yes Respiratory Disorders: Asthma, Pneumonia, COPD (dependent on oxygen supplementation), Emphysema Currently Using CPAP: No Currently Using BIPAP: No Cardiovascular History of Cardiac Disorders: No Neurological History of Neurological Disord: Yes Neurological Disorders: Stroke 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 System Hx 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 Disorders: Yes Sexually Transmitted Disease: No HIV/AIDS: No 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 Genitourinary History of Genitourinary Disor: No Gastrointestinal History of Gastrointestinal Di: Yes Gastrointestinal Disorders: Pancreatitis Musculoskeletal History of Musculoskeletal Dis: Yes Musculoskeletal Disorders: Amputee, Osteoporosis Endocrine History of Endocrine Disorders: No HEENT History of HEENT Disorders: Yes HEENT Disorders: Cataract Loss of Vision: Denies Hearing Impairment: Denies Cancer History of Cancer: No Psychosocial History of Psychiatric Problem: Yes Behavioral Health Disorders: Anxiety, Depression Suicide Risk Score: 0 Integumentary History of Skin or Integumenta: Yes (LARGE SCRATCHES ON RT LEG) Blood Transfusions History of Blood Disorders: No Adverse Reaction to a Blood Tr: No Family Medical History Significant Family History: COPD, Diabetes Family Medial History: Alzheimer's disease 19 FATHER 19 MOTHER Asthma 19 FATHER Completed stroke 19 FATHER Deafness or hearing loss 19 FATHER Dementia 19 FATHER Diabetes mellitus 19 FATHER 19 MOTHER Headache disorder 19 FATHER Hypertension 19 FATHER 19 MOTHER Myocardial infarction 19 FATHER 19 MOTHER Respiratory disorder 19 FATHER No Family History of: Kidney disease Physical Exam Vital Signs Vital Signs - First Documented 11/07/17 23:52 Temp 97.5 Pulse 87 Resp 18 B/P (MAP) 135/94 (108) Pulse Ox 90 O2 Delivery Room Air O2 Flow Rate 2.00 Capillary Refill : Less Than 3 Seconds General Appearance: No Apparent Distress, WD/WN HEENT: PERRL/EOMI, Normal ENT Inspection Neck: Normal Inspection Respiratory: No Accessory Muscle Use, No Respiratory Distress, Wheezing Cardiovascular: Regular Rate, Rhythm, No Edema, No Murmur Gastrointestinal: Normal Bowel Sounds, Soft, Tenderness (epigastrium) Extremity: Normal Inspection, Other (left lower extremity amputation) Neurologic/Psychiatric: Alert, Oriented x3, No Motor/Sensory Deficits, Normal Mood/Affect, senior administrative support II-XII Norm as Tested Skin: Normal Color, Warm/Dry Progress/Results/Core Measures Results/Orders Lab Results Laboratory Tests Test 11/07/17 23:57 11/08/17 00:07 Range/Units White Blood Count 12.8 H 4.3-11.0 10^3/uL Red Blood Count 3.60 L 4.35-5.85 10^6/uL Hemoglobin 10.9 L 11.5-16.0 G/DL Hematocrit 36 35-52 % Mean Corpuscular Volume 100 H 80-99 FL Mean Corpuscular Hemoglobin 30 25-34 PG Mean Corpuscular Hemoglobin Concent 30 L 32-36 G/DL Red Cell Distribution Width 17.6 H 10.0-14.5 % Platelet Count 254 130-400 10^3/uL Mean Platelet Volume 10.4 7.4-10.4 FL Neutrophils (%) (Auto) 78 H 42-75 % Lymphocytes (%) (Auto) 12 12-44 % Monocytes (%) (Auto) 9 0-12 % Eosinophils (%) (Auto) 2 0-10 % Basophils (%) (Auto) 0 0-10 % Neutrophils # (Auto) 9.9 H 1.8-7.8 X 10^3 Lymphocytes # (Auto) 1.5 1.0-4.0 X 10^3 Monocytes # (Auto) 1.2 H 0.0-1.0 X 10^3 Eosinophils # (Auto) 0.2 0.0-0.3 10^3/uL Basophils # (Auto) 0.0 0.0-0.1 10^3/uL Prothrombin Time 11.5 L 12.2-14.7 SEC INR Comment 0.8 0.8-1.4 Activated Partial Thromboplast Time 32 24-35 SEC Sodium Level 139 135-145 MMOL/L Potassium Level 4.7 3.6-5.0 MMOL/L Chloride Level 112 H 98-107 MMOL/L Carbon Dioxide Level 19 L 21-32 MMOL/L Anion Gap 8 5-14 MMOL/L Blood Urea Nitrogen 35 H 7-18 MG/DL Creatinine 1.42 H 0.60-1.30 MG/DL Estimat Glomerular Filtration Rate 39 BUN/Creatinine Ratio 25 Glucose Level 95 70-105 MG/DL Calcium Level 9.1 8.5-10.1 MG/DL Magnesium Level 2.3 1.8-2.4 MG/DL Total Bilirubin 0.2 0.1-1.0 MG/DL Aspartate Amino Transf (AST/SGOT) 8 5-34 U/L Alanine Aminotransferase (ALT/SGPT) 6 0-55 U/L Alkaline Phosphatase 60 40-136 U/L Myoglobin 21.2 10.0-92.0 NG/ML Troponin I < 0.30 <0.30 NG/ML Total Protein 7.0 6.4-8.2 GM/DL Albumin 3.8 3.2-4.5 GM/DL Lipase 124 H 8-78 U/L Urine Color YELLOW Urine Clarity CLEAR Urine pH 6.5 5-9 Urine Specific [place] 1.015 L 1.016-1.022 Urine Protein 1+ H NEGATIVE Urine Glucose (UA) NEGATIVE NEGATIVE Urine Ketones NEGATIVE NEGATIVE Urine Nitrite NEGATIVE NEGATIVE Urine Bilirubin NEGATIVE NEGATIVE Urine Urobilinogen NORMAL NORMAL MG/DL Urine Leukocyte Esterase 1+ H NEGATIVE Urine RBC (Auto) NEGATIVE NEGATIVE Urine RBC NONE /HPF Urine WBC 2-5 /HPF Urine Squamous Epithelial Cells 5-10 /HPF Urine Crystals NONE /LPF Urine Bacteria TRACE /HPF Urine Casts NONE /LPF Urine Mucus NEGATIVE /LPF Urine Culture Indicated NO My Orders Orders - FER MONTEIRO MD Cbc With Automated Diff (11/07/17 23:57) Magnesium (11/07/17 23:57) Ekg Tracing (11/07/17 23:57) Cardiac Profile 1 (11/07/17 23:57) Comprehensive Metabolic Panel (11/07/17 23:57) Myoglobin Serum (11/07/17 23:57) Protime With Inr (11/07/17 23:57) Partial Thromboplastin Time (11/07/17 23:57) O2 (11/07/17 23:57) Monitor-Rhythm Ecg Trace Only (11/07/17 23:57) Saline Lock/Iv-Start (11/07/17 23:57) Lipase (11/07/17 23:57) Albuterol/Ipra Inhalation Soln (Duoneb I (11/08/17 00:00) Svn Sm Volume Nebulizer Rt-Rfs (11/07/17 23:57) Lidocaine 2% Viscous 15 Ml (Xylocaine Vi (11/08/17 00:00) Antacid Suspension (Mylanta Suspension (11/08/17 00:00) Famotidine Injection (Pepcid Injection) (11/07/17 23:57) Chest 1 View, Ap/Pa Only (11/08/17 00:01) Ua Culture If Indicated (11/08/17 00:06) Fentanyl Injection (Sublimaze Injection (11/08/17 00:45) Oxycodone/Apap 5/325mg Tablet (Percocet (11/08/17 01:00) Medications Given in ED Current Medications Medications Dose Ordered Sig/Ely Route Start Time Stop Time Status Last Admin Dose Admin Al Hydrox/Mg Hydrox/Simethicone 30 ml ONCE ONCE PO 11/08/17 00:00 11/08/17 00:01 DC 11/08/17 00:18 30 ML Albuterol/ Ipratropium 3 ml ONCE ONCE INH 11/08/17 00:00 11/08/17 00:01 DC 11/08/17 00:23 3 ML Fentanyl Citrate 50 mcg ONCE ONCE IVP 11/08/17 00:45 11/08/17 00:46 DC 11/08/17 00:48 50 MCG Lidocaine HCl 15 ml ONCE ONCE PO 11/08/17 00:00 11/08/17 00:01 DC 11/08/17 00:18 15 ML Oxycodone/ Acetaminophen 1 tab ONCE ONCE PO 11/08/17 01:00 11/08/17 01:01 DC 11/08/17 01:04 1 TAB Vital Signs/I&O Vital Sign - Last 12Hours 11/07/17 11/08/17 11/08/17 23:52 00:23 01:22 Temp 97.5 Pulse 87 87 Resp 18 16 B/P (MAP) 135/94 (108) 101/67 Pulse Ox 90 96 99 O2 Delivery Room Air Nasal Cannula Nasal Cannula O2 Flow Rate 2.00 2.00 2.00 Blood Pressure Mean: 108 Progress Note : Progress Note Patient received a DuoNeb treatment for COPD exacerbation. GI cocktail was used to treat her epigastric pain. This did not resolve her pain. She was given fentanyl which also did not improve her pain much. Patient was given Percocet prior to discharge. She was found to have mild pancreatitis. She has been out of her pancreatic enzyme medication which may have contributed to her pancreatitis. She also is out of her nebulizer solution. Prescriptions were provided. ECG Initial ECG Impression Date: Nov 08, 2017 Initial ECG Impression Time: 00:08 Initial ECG Rate: 77 Initial ECG Rhythm: Normal Sinus Initial ECG Intervals: Normal Initial ECG Impression: Normal Comment Normal sinus rhythm with no ST elevation or depression. No abnormal intervals. LVH by automated read. Diagnostic Imaging Diagonstic Imaging: Xray Plain Films/CT/US/NM/MRI: chest Comments Chest x-ray viewed by me and compared with prior. There appears to be basilar atelectasis and background COPD changes. No other adverse changes appreciated. Departure Impression Impression: Primary Impression: Recurrent pancreatitis Additional Impressions: Nausea and vomiting Qualified Codes: R11.2 - Nausea with vomiting, unspecified COPD exacerbation Disposition: HOME, SELF-CARE Condition: Improved Departure-Patient Inst. Decision time for Depature: 00:50 Referrals: NO,LOCAL PHYSICIAN (PCP/Family) Primary Care Physician Patient Instructions: Pancreatitis (DC) Add. Discharge Instructions: Consume a clear liquid diet. As symptoms improve he may gradually advance your diet with small quantities of bland food as tolerated. Use Zofran dissolved under the tongue every 4 hours as needed for nausea and vomiting. Use hydrocodone as prescribed for pain. Continue to take pantoprazole as prescribed. Use your DuoNeb nebulizer treatments every 4 hours as needed for wheezing. Work toward quitting smoking. See the smoking cessation class information and pulmonary rehabilitation information attached Establish with a primary care provider as soon as possible. Return to care if symptoms are worsening. All discharge instructions reviewed with patient and/or family. Voiced understanding. Scripts Hydrocodone/Acetaminophen (Hydrocodone-Acetamin 5-325 mg) 1 Each Tablet 1 EACH PO Q6H Y for PAIN-MODERATE TO SEVERE, #10 TAB Prov: FER MONTEIRO MD 11/08/17 Ipratropium/Albuterol Sulfate (Iprat-Albut 0.5-3(2.5) mg/3 ml) 3 Ml Ampul.neb 3 ML IH Q4H Y for SHORTNESS OF BREATH, #60 EACH Prov: FER MONTEIRO MD 11/08/17 Lipase/Protease/Amylase (Pancreaze 16,800 Unit Cap) 1 Each Capsule. 1 EACH PO TID, #90 CAP Prov: FER MONTEIRO MD 11/08/17 FER MONTEIRO MD Nov 08, 2017 01:14
[2017-11-08 01:22] VITALS: BP 101/67
--- NOTE | 2017-11-08 07:00 | Diagnostic Imaging Report ---
INDICATION: Chest pain. TECHNIQUE: Single view chest 12:37 AM. CORRELATION STUDY: 10/31/2017 FINDINGS: The heart size, mediastinal configuration and pulmonary vascularity are within normal limits. Lung read are hyperinflated likely changes of COPD. Areas of atelectasis or less likely infiltrate of the lung bases. IMPRESSION: 1. Likely basilar areas of atelectasis versus infiltrate superimposed on changes of COPD. Dictated by: Dictated on workstation # [id number]
[2017-11-08] MEDS ORDERED: ONDA4TAB11 PO (20:23)
[2017-11-08] MEDS ORDERED: SULF1TAB35 PO (20:23)
== END 2017-11-08 01:22 | disposition home or self-care (01) ==
LOC: EDUNIT# 23:52 → ER 23:54
DX: K86.1 Other chronic pancreatitis (principal); J44.1 Chronic obstructive pulmonary disease with (acute) exacerbation; F41.9 Anxiety disorder, unspecified; F32.9 Major depressive disorder, single episode, unspecified; M81.0 Age-related osteoporosis without current pathological fracture; F17.210 Nicotine dependence, cigarettes, uncomplicated; Z99.81 Dependence on supplemental oxygen; Z87.01 Personal history of pneumonia (recurrent); Z90.710 Acquired absence of both cervix and uterus; Z86.73 Personal history of transient ischemic attack (TIA), and cerebral infarction without residual deficits; Z89.512 Acquired absence of left leg below knee; Z79.52 Long term (current) use of systemic steroids; Z88.0 Allergy status to penicillin; Z88.1 Allergy status to other antibiotic agents; Z88.6 Allergy status to analgesic agent; Z88.8 Allergy status to other drugs, medicaments and biological substances
CPT/HCPCS: 36415; 71045; 80053; 81000; 83690; 83735; 83874; 84484; 85025; 85610; 85730; 93005; 93041; 94640; 96374; 96375

== ENCOUNTER 2017-11-08 18:42 | Emergency (ER) | payer MEDICAID ==
[~2017-11-08] VITALS: Ht 154.9 cm; Wt 52.2 kg
[~2017-11-08 18:42] MED LIST changes: +HYDR-3812 PO
[2017-11-08] MEDS ORDERED: KETOROLAC 30 MG/ML VIAL IVP STA (18:47)
[2017-11-08] MEDS ORDERED: NS IV 1000 ML 1,000 ML IV ONE (18:47)
--- OUTSIDE RECORDS SUMMARY | 2017-11-08 18:47 | XMS REPORT | Clinical Summary ---
Author Author [facility] Organization [facility] Address Unknown Phone Unavailable Care Team Providers Care Polls Or Surveys Interviewer Name Role Phone Mi Joseph RN Unavailable [...] in the Health Information Management department at [phone] for further assistance in locating additional records.[facility] Allergies Active Allergy Reactions Severity Noted [...]
--- OUTSIDE RECORDS SUMMARY | 2017-11-08 18:55 | XMS REPORT | Continuity of Care Document ---
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 [id number] 08/21/2014 15:24:00 08/21/2014 23:59:59 CLS Outpatient RAGHAV MATHEW DO [id number] 06/04/2014 09:54:00 06/04/2014 23:59:59 CLS Outpatient RAGHAV MATHEW DO [id number] 03/01/2014 10:22:00 03/01/2014 23:59:59 CLS Outpatient MADL SPINDLE CARVER OLMAN L [id number] 02/15/2014 11:06:00 02/15/2014 23:59:59 CLS Outpatient OLMAN DSOUZA APRN [id number] 02/11/2014 09:45:00 02/11/2014 23:59:59 CLS Outpatient CHARLIL OLMAN BAEZ [id number] 01/25/2014 13:20:00 01/25/2014 23:59:59 CLS Outpatient CHARLIL OLMAN BAEZ [id number] 11/07/2017 23:54:00 11/08/2017 01:22:00 DIS Emergency CAYETANO LAO, FER Li [facility] ER PAIN [id number] 10/31/2017 15:16:00 10/31/2017 23:59:59 CLS Outpatient CAYETANO LAO, FER Li [facility] ER LEFT FLANK PAIN/ NAUSEA [id number] 08/05/2017 17:10:00 08/08/2017 14:00:00 DIS Inpatient ASHLEIGH ORTEGA DO [facility] 4TH TYLENOL OVERDOSE,ACUTE RENAL FAILURE,UTI [id number] 05/21/2017 16:24:00 05/21/2017 19:29:00 DIS Emergency JUAN C FRANCISCO APRN [facility] ER ABDOMINAL PAIN [id number] 08/17/2016 06:00:00 08/17/2016 16:33:00 DIS Inpatient AMAYA LAO, LASHAY Vargas [facility] 4TH INTRA ABDOMINAL FLUID COLLECTION,PANCREATIC [id number] 08/10/2016 04:32:00 08/11/2016 16:10:00 DIS Inpatient YANI BOSTON MD [facility] 4TH PANCREATITIS,GASTRITIS, ABD PAIN,N/V [id number] 07/21/2016 16:07:00 07/21/2016 19:07:00 DIS Emergency JUAN C FRANCISCO APRN [facility] ER FALL/L SIDE RIB PAIN [id number] 07/15/2016 05:27:00 07/15/2016 06:22:00 DIS Emergency KADE RIVERA MD [facility] ER AB PAIN [id number] 04/29/2016 19:07:00 04/29/2016 20:49:00 DIS Emergency STEFFEN VALDERRAMA [facility] ER R MIDDLE FINGER INJ [id number] 07/14/2015 12:56:00 07/14/2015 14:28:00 DIS Emergency STEFFEN VALDERRAMA [facility] ER ABD PAIN V/D [id number] 03/06/2015 20:42:00 03/07/2015 15:15:00 DIS Inpatient PAIGE WAITE MD [facility] ICU SEPSIS,HYPOXIA, LEULOCYTOSIS,COPD EXACERBATION [id number] 01/11/2015 03:04:00 01/12/2015 07:52:00 DIS Inpatient AMAYA LAO, LASHAY Vargas [facility] ICU DECREASED LOC SECONDARY TO NARCOTIC OD, UTI [id number] 12/15/2014 13:12:00 12/15/2014 13:51:00 DIS Emergency JUAN C FRANCISCO APRN [facility] ER POST OP STUMP BLEEDING/ PAIN [id number] 10/09/2014 11:50:00 10/09/2014 23:59:59 CLS Emergency LEIA STARKS DO [facility] ER [id number] 08/04/2014 04:55:00 08/04/2014 14:14:00 DIS Inpatient RAGHAV MATHEW DO [facility] 4TH PNEUMONIA W/HYPOXIA;COPD [id number] 02/04/2014 19:32:00 02/04/2014 20:15:00 DIS Emergency JUAN C FRANCISCO SPINDLE CARVER [facility] ER ARMSTRONG,STUMP PAIN [id number] 02/01/2014 12:25:00 02/01/2014 13:00:00 DIS Emergency LEIA STARKS DO [facility] ER STUMP PAIN/MIGRAINE [id number] 01/27/2014 12:08:00 01/27/2014 16:21:00 DIS Emergency FER MONTEIRO MD [facility] ER WANTS DETOX [id number] 01/21/2014 12:07:00 01/21/2014 13:05:00 DIS Emergency JUAN C FRANCISCO SPINDLE CARVER [facility] ER PAIN/MULTIPLE AREAS [id number] 01/20/2014 15:28:00 01/20/2014 16:28:00 DIS Emergency LEIA STARKS DO [facility] ER HIP,BACK PAIN [id number] 12/11/2013 11:39:00 12/11/2013 12:22:00 DIS Emergency JUAN C FRANCISCO SPINDLE CARVER [facility] ER RIGHT FOOT PAIN [id number] 10/30/2013 19:54:00 10/30/2013 21:59:00 DIS Emergency JUAN C FRANCISCO SPINDLE CARVER [facility] ER R FOOT PAIN [id number] 07/02/2013 10:27:00 07/03/2013 23:20:00 DIS Inpatient DEONNA MORGAN MD [facility] ICU NARCOTIC OVERDOSE [id number] 05/21/2013 12:40:00 05/21/2013 14:44:00 DIS Emergency STEFFEN VALDERRAMA [facility] ER LEG PAIN [id number] 04/12/2013 22:51:00 04/13/2013 10:45:00 DIS Inpatient ANDREIA LAO, GREG Orozco [facility] ICU DRUG OVERDOSE [id number] 03/14/2013 13:55:00 03/15/2013 14:32:00 DIS Inpatient NERI VIRA REESI [facility] ICU DRUG OVERDOSE, PNEUMONIA [id number] 02/04/2013 22:46:00 02/06/2013 13:05:00 DIS Inpatient PAIGE WAITE MD [facility] 4TH PNEUMONIA [id number] 11/08/2017 18:43:00 ACT Emergency STEFFEN VALDERRAMA [facility] ER PANCREATITIS [id number] 12/15/2014 14:25:00 Document Registration [id number] 12/15/2014 14:25:00 Document Registration [id number] 12/15/2014 14:25:00 Document Registration [id number] 12/15/2014 14:25:00 Document Registration [id number] 12/15/2014 14:25:00 Document Registration [id number] 12/15/2014 14:25:00 Document Registration [id number] 12/15/2014 14:25:00 Document Registration [id number] 12/15/2014 14:25:00 Document Registration [id number] 12/15/2014 14:25:00 Document Registration [id number] 12/15/2014 14:25:00 Document Registration [id number] 12/15/2014 14:25:00 Document Registration [id number] 12/15/2014 14:25:00 Document Registration [id number] 12/15/2014 14:25:00 Document Registration [id number] 12/15/2014 14:25:00 Document Registration [id number] 12/15/2014 14:25:00 Document Registration [id number] 09/14/2012 16:44:00 Document Registration [id number] 07/28/2012 18:01:00 Document Registration [id number] 06/06/2012 20:36:00 Document Registration [id number] 03/18/2012 15:05:00 Document Registration [id number] 01/19/2012 11:42:00 Document Registration [id number] 09/19/2011 22:30:00 Document Registration [id number] 2011 13:50:00 Document Registration [id number] 04/15/2011 18:14:00 Document Registration [id number] 12/11/2010 22:34:00 Document Registration [id number] 12/05/2010 18:52:00 Document Registration [id number] 10/27/2010 16:41:00 Document Registration [id number] 09/24/2010 16:25:00 Document Registration [id number] 10/24/2016 10:54:07 10/24/2016 23:59:59 Leonel Calloway
[2017-11-08] MEDS ORDERED: ONDANSETRON 4 MG/2 ML (SDV) Z0FRAN IVP ONE ×2 (19:00→20:30)
[2017-11-08 19:10] LABS: BILIRUBIN,URINE NEGATIVE (NEGATIVE); CLARITY,URINE CLEAR; COLOR,URINE YELLOW; GLUCOSE, URINE (UA) NEGATIVE (NEGATIVE); KETONES,URINE NEGATIVE (NEGATIVE); LEUKOCYTE ESTERASE ,URINE 1+ (NEGATIVE); NITRITE,URINE NEGATIVE (NEGATIVE); PH,URINE 6 (5-9); PROTEIN,URINE 2+ (NEGATIVE); UROBILINOGEN,URINE NORMAL (NORMAL)
[2017-11-08 19:11] LABS: BASOPHILS % (AUTO) 0 % (0-10); EOSINOPHILS # (AUTO) 0.2 10^3/uL (0.0-0.3); EOSINOPHILS % (AUTO) 1 % (0-10); HEMATOCRIT 36 % (35-52); HEMOGLOBIN 10.9 G/DL (11.5-16.0); LYMPHOCYTES # (AUTO) 1.6 X 10^3 (1.0-4.0); LYMPHOCYTES % (AUTO) 13 % (12-44); MEAN CORPUSCULAR HEMOGLOBIN 30 PG (25-34); MEAN CORPUSCULAR HGB CONC 30 G/DL (32-36); MEAN CORPUSCULAR VOLUME 99 FL (80-99); MEAN PLATELET VOLUME 10.8 FL (7.4-10.4); MONOCYTES # (AUTO) 1.5 X 10^3 (0.0-1.0); MONOCYTES % (AUTO) 12 % (0-12); NEUTROPHILS # (AUTO) 8.8 X 10^3 (1.8-7.8); NEUTROPHILS % (AUTO) 73 % (42-75); PLATELET COUNT 249 10^3/uL (130-400); RED BLOOD COUNT 3.65 10^6/uL (4.35-5.85); RED CELL DISTRIBUTION WIDTH 17.3 % (10.0-14.5); WHITE BLOOD COUNT 12.1 10^3/uL (4.3-11.0)
[2017-11-08 19:17] LABS: BACTERIA,URINE FEW /HPF
--- NOTE | 2017-11-08 19:26 | ED Abdominal Pain ---
General Chief Complaint: Abdominal/GI Problems Stated Complaint: PANCREATITIS Nursing Triage Note: PT BROUGHT IN BY [facility] WITH C/O ABD. PT WAS SEEN AND TX IN THIS ED LAST NOC FOR PANCREATITIS. SHE DENIES IMPROVEMENT. 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 Sepsis Screen: No Definite Risk Source of Information: Patient Exam Limitations: No Limitations History of Present Illness Date Seen by Provider: Nov 08, 2017 Time Seen by Provider: 18:45 Initial Comments 47 yo female patient presents to the emergency department via [facility] with complaints of abdominal pain from pancreatitis. Patient was seen in the emergency department last night for pancreatitis. Also seen on October 31 for similar symptoms. Denies any improvement. Patient was given 4 mg of morphine by EMS without improvement in symptoms. Also complains of nausea. Patient recently moved back to [place] from [place]. Timing/Duration: Constant, Other (chronic pancreatitis, worse this week.) Severity/Quality: Aching Location: LUQ, Epigastric Activities at Onset: None Modifying Factors: Worsens With Eating, Worsens With Movement, Worsens With Palpation Allergies and Home Medications Allergies Coded Allergies: ofloxacin (Verified Allergy, Mild, 08/10/16) Penicillins (Verified Allergy, Unknown, Pt has received Ceftriaxone & Cefepime in the past w/o issue, 08/06/17) amoxicillin (Verified Allergy, Unknown, 08/10/16) clavulanic acid (Verified Allergy, Unknown, 08/10/16) promethazine (Verified Allergy, Unknown, 08/10/16) propoxyphene (Verified Allergy, Unknown, 08/10/16) ketorolac (Verified Adverse Reaction, Unknown, 11/08/17) tramadol (Verified Adverse Reaction, Unknown, 11/08/17) Home Medications Albuterol Sulfate 1 Puff Puff, 2 PUFF INH Q6H PRN for SHORTNESS OF BREATH, ( Reported) Budesonide/Formoterol Fumarate 10.2 Gm Hfa.aer.ad, 2 PUFF IH BID, (Reported) Buspirone HCl 10 Mg Tablet, 10 MG PO DAILY, (Reported) Cephalexin 500 Mg Capsule, 500 MG PO TID Prescribed by: FER ELIZALDE on 10/31/171835 Dicyclomine HCl 10 Mg Capsule, 10 MG PO QID PRN for STOMACH UPSET, (Reported) Gabapentin 600 Mg Tablet, 600 MG PO QID, (Reported) TAKES ALONG WITH 300MG CAPSULE FOR A TOTAL DOSE OF 900MG 4 TIMES DAILY Gabapentin 300 Mg Capsule, 300 MG PO QID, (Reported) TAKES ALONG WITH 600MG FOR A TOTAL DAILY DOSE OF 900MG 4 TIMES DAILY Hydrocodone/Acetaminophen 1 Each Tablet, 1 EACH PO Q6H PRN for PAIN-MODERATE TO SEVERE Prescribed by: FER ELIZALDE on 11/08/17113 Ipratropium/Albuterol Sulfate 3 Ml Ampul.neb, 3 ML IH Q4H PRN for SHORTNESS OF BREATH Prescribed by: ELVIS NERI on 08/08/17 110 Ipratropium/Albuterol Sulfate 3 Ml Ampul.neb, 3 ML IH Q4H PRN for SHORTNESS OF BREATH Prescribed by: FER ELIZALDE on 11/08/17113 Iron Ps Cmplx/Vit B12/FA 1 Each Capsule, 1 EACH PO DAILY Prescribed by: ELVIS NERI on 08/08/171103 Lipase/Protease/Amylase 1 Each Capsule.dr, 1 CAP PO TID, (Reported) Lipase/Protease/Amylase 1 Each Capsule.dr, 1 EACH PO TID Prescribed by: FER ELIZALDE on 11/08/17113 Omeprazole 20 Mg Capsule.dr, 20 MG PO DAILY, (Reported) Ondansetron 8 Mg Tab.rapdis, 8 MG PO TID PRN for NAUSEA/VOMITING-1ST LINE, ( Reported) Ondansetron 4 Mg Tab.rapdis, 4 MG SL Q4H PRN for NAUSEA/VOMITING-1ST LINE Prescribed by: FER ELIZALDE on 10/31/171835 Ondansetron 4 Mg Tab.rapdis, 4 MG PO Q4H PRN for NAUSEA/VOMITING-1ST LINE Prescribed by: STEFFEN JONES on 11/08/172022 Pantoprazole Sodium 40 Mg Tablet.dr, 40 MG PO DAILY, (Reported) Prednisone 20 Mg Tab, 20 MG PO DAILY Prescribed by: FER ELIZALDE on 10/31/171835 Simethicone 80 Mg Tab.chew, 2-4 TAB PO PC PRN for INDIGESTION, (Reported) Sulfamethoxazole/Trimethoprim 1 Each Tablet, 1 EACH PO BID Prescribed by: STEFFEN JONES on 11/08/172022 [Hydrocodone Bit/Acetaminophen] 5 TAB, 1 TAB PO Q6HR PRN for PAIN-MODERATE Prescribed by: ELVIS NERI on 08/08/17 1104 Patient Home Medication List Home Medication List Reviewed: Yes Review of Systems Constitutional: No chills, No diaphoresis, No fever, No malaise Respiratory: No Symptoms Reported Cardiovascular: No Symptoms Reported Gastrointestinal: See HPI, Denies Abdomen Distended, Abdominal Pain, Denies Blood Streaked Stools, Denies Constipated, Denies Diarrhea, Denies Difficulty Swallowing, Nausea, Poor Appetite, Denies Poor Fluid Intake, Denies Rectal Bleeding, Denies Vomiting Genitourinary: Denies Burning, Denies Frequency, Denies Flank Pain, Denies Hematuria, Denies Pain Musculoskeletal: no symptoms reported Skin: no symptoms reported Psychiatric/Neurological: No Symptoms Reported All Other Systems Reviewed Negative Unless Noted: Yes (Negative excepted noted.) Past Fyyjcjx-Hckbmd-Txectb Hx Patient Social History Alcohol Use: Past History Recreational Drug Use: Yes (ETOH- NOT FOR LAST SIX MONTHS) Smoking Status: Current Everyday Smoker Type Used: Cigarettes 2nd Hand Smoke Exposure: No Recent Foreign Travel: No Contact w/Someone Who Travel: No Recent Infectious Disease Expo: No Recent Hopitalizations: No Immunizations Up To Date Tetanus Booster (TDap): Less than 5yrs PED Vaccines UTD: No Date of Pneumonia Vaccine: Jul 26, 2009 Date of Influenza Vaccine: Sep 26, 2013 Seasonal Allergies Seasonal Allergies: No Surgeries History of Surgeries: Yes (REMOVAL OF TEETH, hernia, dnc, l leg amputation) Surgeries: Amputation, Gallbladder, Hysterectomy Respiratory History of Respiratory Disorde: Yes Respiratory Disorders: Asthma, Pneumonia, COPD, Emphysema Currently Using CPAP: No Currently Using BIPAP: No Cardiovascular History of Cardiac Disorders: No Neurological History of Neurological Disord: Yes Neurological Disorders: Stroke 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 System Hx 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 Disorders: Yes Sexually Transmitted Disease: No HIV/AIDS: No 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 Genitourinary History of Genitourinary Disor: No Gastrointestinal History of Gastrointestinal Di: Yes Gastrointestinal Disorders: Pancreatitis Musculoskeletal History of Musculoskeletal Dis: Yes Musculoskeletal Disorders: Amputee, Osteoporosis Endocrine History of Endocrine Disorders: No HEENT History of HEENT Disorders: Yes HEENT Disorders: Cataract Loss of Vision: Denies Hearing Impairment: Denies Cancer History of Cancer: No Psychosocial History of Psychiatric Problem: Yes Behavioral Health Disorders: Anxiety, Depression Integumentary History of Skin or Integumenta: Yes (LARGE SCRATCHES ON RT LEG) Blood Transfusions History of Blood Disorders: No Adverse Reaction to a Blood Tr: No Reviewed Nursing Assessment Reviewed/Agree w Nursing PMH: Yes Family Medical History Significant Family History: COPD, Diabetes Family Medial History: Alzheimer's disease 19 FATHER 19 MOTHER Asthma 19 FATHER Completed stroke 19 FATHER Deafness or hearing loss 19 FATHER Dementia 19 FATHER Diabetes mellitus 19 FATHER 19 MOTHER Headache disorder 19 FATHER Hypertension 19 FATHER 19 MOTHER Myocardial infarction 19 FATHER 19 MOTHER Respiratory disorder 19 FATHER No Family History of: Kidney disease Physical Exam Vital Signs VS - Last 72 Hours, by Label 11/08/17 11/08/17 18:45 20:32 Temp 97.0 Pulse 74 80 Resp 16 18 B/P (MAP) 169/72 (104) 124/79 Pulse Ox 97 98 O2 Delivery Room Air Capillary Refill : Less Than 3 Seconds General Appearance: WD/WN, no apparent distress Respiratory: lungs clear, normal breath sounds, no respiratory distress, no accessory muscle use Cardiovascular: regular rate, rhythm, no murmur Gastrointestinal: normal bowel sounds, soft, no organomegaly, No distended, No guarding, No rebound, tenderness (generalized TTP) Extremities: normal capillary refill Back: normal inspection, no CVA tenderness Neurologic/Psychiatric: alert, normal mood/affect, oriented x 3 Skin: normal color, warm/dry Progress/Results/Core Measures Results/Orders Lab Results Laboratory Tests Test 11/08/17 18:45 11/08/17 19:00 11/08/17 19:24 Range/Units White Blood Count 12.1 H 4.3-11.0 10^3/uL Red Blood Count 3.65 L 4.35-5.85 10^6/uL Hemoglobin 10.9 L 11.5-16.0 G/DL Hematocrit 36 35-52 % Mean Corpuscular Volume 99 80-99 FL Mean Corpuscular Hemoglobin 30 25-34 PG Mean Corpuscular Hemoglobin Concent 30 L 32-36 G/DL Red Cell Distribution Width 17.3 H 10.0-14.5 % Platelet Count 249 130-400 10^3/uL Mean Platelet Volume 10.8 H 7.4-10.4 FL Neutrophils (%) (Auto) 73 42-75 % Lymphocytes (%) (Auto) 13 12-44 % Monocytes (%) (Auto) 12 0-12 % Eosinophils (%) (Auto) 1 0-10 % Basophils (%) (Auto) 0 0-10 % Neutrophils # (Auto) 8.8 H 1.8-7.8 X 10^3 Lymphocytes # (Auto) 1.6 1.0-4.0 X 10^3 Monocytes # (Auto) 1.5 H 0.0-1.0 X 10^3 Eosinophils # (Auto) 0.2 0.0-0.3 10^3/uL Basophils # (Auto) 0.0 0.0-0.1 10^3/uL Urine Color YELLOW Urine Clarity CLEAR Urine pH 6 5-9 Urine Specific [place] 1.010 L 1.016-1.022 Urine Protein 2+ H NEGATIVE Urine Glucose (UA) NEGATIVE NEGATIVE Urine Ketones NEGATIVE NEGATIVE Urine Nitrite NEGATIVE NEGATIVE Urine Bilirubin NEGATIVE NEGATIVE Urine Urobilinogen NORMAL NORMAL MG/DL Urine Leukocyte Esterase 1+ H NEGATIVE Urine RBC (Auto) NEGATIVE NEGATIVE Urine RBC NONE /HPF Urine WBC 5-10 H /HPF Urine Squamous Epithelial Cells 2-5 /HPF Urine Crystals NONE /LPF Urine Bacteria FEW H /HPF Urine Casts NONE /LPF Urine Mucus NEGATIVE /LPF Urine Culture Indicated YES Sodium Level 136 135-145 MMOL/L Potassium Level 5.2 H 3.6-5.0 MMOL/L Chloride Level 106 98-107 MMOL/L Carbon Dioxide Level 18 L 21-32 MMOL/L Anion Gap 12 5-14 MMOL/L Blood Urea Nitrogen 27 H 7-18 MG/DL Creatinine 1.29 0.60-1.30 MG/DL Estimat Glomerular Filtration Rate 44 BUN/Creatinine Ratio 21 Glucose Level 90 70-105 MG/DL Calcium Level 9.2 8.5-10.1 MG/DL Total Bilirubin 0.2 0.1-1.0 MG/DL Aspartate Amino Transf (AST/SGOT) 9 5-34 U/L Alanine Aminotransferase (ALT/SGPT) 7 0-55 U/L Alkaline Phosphatase 63 40-136 U/L Total Protein 7.6 6.4-8.2 GM/DL Albumin 3.8 3.2-4.5 GM/DL Lipase 85 H 8-78 U/L Micro Results Microbiology 11/08/17 Urine Culture - Final, Complete Escherichia coli My Orders Orders - STEFFEN JONES Saline Lock/Iv-Start (11/08/17 18:47) Cbc With Automated Diff (11/08/17 18:47) Comprehensive Metabolic Panel (11/08/17 18:47) Lipase (11/08/17 18:47) Ua Culture If Indicated (11/08/17 18:47) Saline Lock/Iv-Start (11/08/17 18:47) Ns Iv 1000 Ml (Sodium Chloride 0.9%) (11/08/17 18:47) Ketorolac Injection (Toradol Injection) (11/08/17 18:47) Ondansetron Injection (Zofran Injectio (11/08/17 19:00) Urine Culture (11/08/17 19:00) Hydrocodone/Apap 5/325 Tablet (Lortab 5 (11/08/17 20:18) Ondansetron Injection (Zofran Injectio (11/08/17 20:30) Rx-Nitrofurantoin [place] (Rx-Macrobid) (11/08/17 20:18) Medications Given in ED Vital Signs/I&O Vital Sign - Last 12Hours 11/08/17 11/08/17 18:45 20:32 Temp 97.0 Pulse 74 80 Resp 16 18 B/P (MAP) 169/72 (104) 124/79 Pulse Ox 97 98 O2 Delivery Room Air Blood Pressure Mean: 104 Departure Communication (Admissions) Progress Notes All laboratory findings discussed with the patient. Patient was initially ordered Toradol 30 mg for pain. Patient refused this stating that she was allergic to Toradol and tramadol. Neither medications were on her allergy list. Patient now reporting both medications "give her a headache". Patient was noted multiple times in 2017 to fill large amounts of tramadol. Patient states that she had to clam picker the tramadol prescriptions from the pharmacy or her insurance would not let her fill her other medications. I've advised the patient that if she is allergic to medication or if it causes adverse side effects/reactions, she should not clam picker the medication and she should contact her prescriber to notify them of the adverse reaction or allergy. Patient verbalizes understanding. Patient does have a known history for narcotic abuse. Patient to use Tylenol and ibuprofen [id number] for pain. Proceed with discharge to home with follow-up as an outpatient with the PCP of her choice. Patient verbalized understanding and agrees with the treatment plan. Impression Impression: Primary Impression: Urinary tract infection Qualified Codes: N30.00 - Acute cystitis without hematuria Additional Impression: Chronic pancreatitis Qualified Codes: K86.1 - Other chronic pancreatitis Disposition: HOME, SELF-CARE Condition: Improved Departure-Patient Inst. Decision time for Depature: 20:21 Referrals: NO,LOCAL PHYSICIAN (PCP/Family) Primary Care Physician Patient Instructions: CHRONIC PAIN, Pancreatitis (DC), Urinary Tract Infection , Adult (DC) Add. Discharge Instructions: All discharge instructions reviewed with patient and/or family. Voiced understanding.medications as instructed. Continue usual home medications. Follow-up with the primary care provider of your choice for recheck and to establish care. clear liquid diet until symptoms improve, then increase diet slowly to a low-fat diet. Call Saturday morning for appointment time. Return to the emergency department for worsened symptoms or any other concerns. Scripts Ondansetron (Ondansetron Odt) 4 Mg Tab.rapdis 4 MG PO Q4H Y for NAUSEA/VOMITING-1ST LINE, #10 TAB 0 Refills Prov: STEFFEN JONES 11/08/17 Sulfamethoxazole/Trimethoprim (Bactrim Ds Tablet) 1 Each Tablet 1 EACH PO BID, #10 TAB 0 Refills Prov: STEFFEN JONES 11/08/17 Work/School Note: Local Medical Staff Listing STEFFEN JONES Nov 08, 2017 19:26
[2017-11-08 19:51] LABS: ALBUMIN 3.8 GM/DL (3.2-4.5); BILIRUBIN,TOTAL 0.2 MG/DL (0.1-1.0); CALCIUM 9.2 MG/DL (8.5-10.1); CREATININE SERUM 1.29 MG/DL (0.60-1.30); POTASSIUM 5.2 MMOL/L (3.6-5.0); TOTAL PROTEIN 7.6 GM/DL (6.4-8.2)
[2017-11-08] MEDS ORDERED: HYDROcodone/APAP 5 MG/325 MG (LORTAB) TAB PO STA (20:18)
[2017-11-08] MEDS ORDERED: RX-NITROFURANTOIN 100 MG (MACROBID) CAP PPK#2 PO STA (20:18)
[2017-11-08] MEDS ORDERED: SULF1TAB35 PO (20:23)
[2017-11-08] MEDS ORDERED: ONDA4TAB11 PO (20:23)
[2017-11-08 20:32] VITALS: BP 124/79
== END 2017-11-08 20:32 | disposition home or self-care (01) ==
LOC: EDUNIT# 18:42 → ER 18:43
DX: N39.0 Urinary tract infection, site not specified (principal); K86.1 Other chronic pancreatitis; F41.9 Anxiety disorder, unspecified; F32.9 Major depressive disorder, single episode, unspecified; J43.9 Emphysema, unspecified; M81.0 Age-related osteoporosis without current pathological fracture; F17.210 Nicotine dependence, cigarettes, uncomplicated; Z90.710 Acquired absence of both cervix and uterus; Z86.73 Personal history of transient ischemic attack (TIA), and cerebral infarction without residual deficits; Z89.512 Acquired absence of left leg below knee; Z79.52 Long term (current) use of systemic steroids; Z87.01 Personal history of pneumonia (recurrent); Z88.0 Allergy status to penicillin; Z88.1 Allergy status to other antibiotic agents; Z88.5 Allergy status to narcotic agent; Z88.6 Allergy status to analgesic agent; Z88.8 Allergy status to other drugs, medicaments and biological substances
CPT/HCPCS: 36415; 80053; 81000; 83690; 85025; 87077; 87088; 87186

== ENCOUNTER 2017-11-30 21:34 | Observation (INO) | payer MEDICAID ==
[~2017-11-30] VITALS: Ht 154.9 cm; Wt 34.2 kg
[~2017-11-30 21:34] MED LIST changes: +ONDA4TAB11 PO; +SULF1TAB35 PO
--- OUTSIDE RECORDS SUMMARY | 2017-11-30 21:38 | XMS REPORT | Clinical Summary ---
Author Author [facility] Organization [facility] Address Unknown Phone Unavailable Care Team Providers Care Inspector Tool Name Role Phone Mi Joseph RN Unavailable [...] in the Health Information Management department at [phone] for further assistance in locating additional records.[facility] Allergies Active Allergy Reactions Severity Noted [...]
[2017-11-30 22:25] LABS: BILIRUBIN,URINE NEGATIVE (NEGATIVE); CLARITY,URINE CLEAR; COLOR,URINE YELLOW; GLUCOSE, URINE (UA) NEGATIVE (NEGATIVE); KETONES,URINE NEGATIVE (NEGATIVE); LEUKOCYTE ESTERASE ,URINE 1+ (NEGATIVE); NITRITE,URINE NEGATIVE (NEGATIVE); PH,URINE 5 (5-9); PROTEIN,URINE 2+ (NEGATIVE); UROBILINOGEN,URINE NORMAL (NORMAL)
[2017-11-30 22:25] LABS: BASOPHILS # (AUTO) 0.1 10^3/uL (0.0-0.1); BASOPHILS % (AUTO) 1 % (0-10); EOSINOPHILS # (AUTO) 0.1 10^3/uL (0.0-0.3); EOSINOPHILS % (AUTO) 1 % (0-10); HEMATOCRIT 39 % (35-52); HEMOGLOBIN 11.7 G/DL (11.5-16.0); LYMPHOCYTES # (AUTO) 1.3 X 10^3 (1.0-4.0); LYMPHOCYTES % (AUTO) 14 % (12-44); MEAN CORPUSCULAR HEMOGLOBIN 30 PG (25-34); MEAN CORPUSCULAR HGB CONC 30 G/DL (32-36); MEAN CORPUSCULAR VOLUME 100 FL (80-99); MEAN PLATELET VOLUME 10.7 FL (7.4-10.4); MONOCYTES # (AUTO) 1.2 X 10^3 (0.0-1.0); MONOCYTES % (AUTO) 13 % (0-12); NEUTROPHILS # (AUTO) 6.6 X 10^3 (1.8-7.8); NEUTROPHILS % (AUTO) 71 % (42-75); PLATELET COUNT 213 10^3/uL (130-400); RED BLOOD COUNT 3.86 10^6/uL (4.35-5.85); RED CELL DISTRIBUTION WIDTH 16.2 % (10.0-14.5); WHITE BLOOD COUNT 9.2 10^3/uL (4.3-11.0)
[2017-11-30 22:37] LABS: ALANINE AMINOTRANSFERASE < 6 U/L (0-55); ALKALINE PHOSPHATASE 99 U/L (40-136); AMYLASE 54 U/L (25-125); BILIRUBIN,TOTAL 0.2 MG/DL (0.1-1.0); BUN/CREATININE RATIO 23; CALCIUM 8.3 MG/DL (8.5-10.1); CARBON DIOXIDE 14 MMOL/L (21-32); CHLORIDE 111 MMOL/L (98-107); CREATININE SERUM 1.55 MG/DL (0.60-1.30); GFR ESTIMATED 36; GLUCOSE 154 MG/DL (70-105); LIPASE 92 U/L (8-78); POTASSIUM 3.2 MMOL/L (3.6-5.0); SODIUM 135 MMOL/L (135-145); TOTAL PROTEIN 7.1 GM/DL (6.4-8.2)
[2017-11-30 22:40] LABS: BACTERIA,URINE FEW /HPF; HYALINE CASTS, URINE RARE /LPF; RBC,URINE RARE /HPF
[2017-11-30] MEDS ORDERED: fentaNYL INJECTION 100 MCG/2 ML AMP IVP STA (22:54)
[2017-11-30] MEDS ORDERED: NS IV 1000 ML 1,000 ML IV ONE (22:54)
[2017-11-30] MEDS ORDERED: ONDANSETRON 4 MG/2 ML (SDV) Z0FRAN IVP ONE (23:00)
--- NOTE | 2017-11-30 23:43 | ED Abdominal Pain ---
General Chief Complaint: Abdominal/GI Problems Stated Complaint: ABD PAIN Nursing Triage Note: Patient presented to the ER via EMS secondary to c/o abdominal pain. She advises the pain has been there for several months and that they have been treating her for a bladder infection that has not improved. Sepsis Screen: No Definite Risk Source of Information: Patient Exam Limitations: No Limitations History of Present Illness Date Seen by Provider: Nov 30, 2017 Time Seen by Provider: 23:42 Initial Comments 47-year-old female patient presents to the emergency Department with reports of abdominal pain. Patient was seen by this examiner on 11/08/17 for abdominal pain and a urinary tract infection. Patient denies following up with a PCP to establish care and for recheck as instructed. Patient does have a history of chronic pancreatitis. Patient states she is been off of the majority of her medications for the last several days. States she is scheduled to see Dr. Porter as an outpatient to establish care in a couple of weeks. Timing/Duration: Other (2 wks) Severity/Quality: Aching, Cramping Location: LUQ Radiation: LLQ, Flank Activities at Onset: None Modifying Factors: Worsens With Movement, Worsens With Palpation, Worsens With Urinating Allergies and Home Medications Allergies Coded Allergies: ofloxacin (Verified Allergy, Mild, 08/10/16) Penicillins (Verified Allergy, Unknown, Pt has received Ceftriaxone & Cefepime in the past w/o issue, 08/06/17) amoxicillin (Verified Allergy, Unknown, 08/10/16) clavulanic acid (Verified Allergy, Unknown, 08/10/16) promethazine (Verified Allergy, Unknown, 08/10/16) propoxyphene (Verified Allergy, Unknown, 08/10/16) ketorolac (Verified Adverse Reaction, Unknown, 11/08/17) tramadol (Verified Adverse Reaction, Unknown, 11/08/17) Home Medications Albuterol Sulfate 1 Puff Puff, 2 PUFF INH Q6H PRN for SHORTNESS OF BREATH, ( Reported) Budesonide/Formoterol Fumarate 10.2 Gm Hfa.aer.ad, 2 PUFF IH BID, (Reported) Buspirone HCl 10 Mg Tablet, 10 MG PO DAILY, (Reported) Cephalexin 500 Mg Capsule, 500 MG PO TID Prescribed by: [place] [id number] Dicyclomine HCl 10 Mg Capsule, 10 MG PO QID PRN for STOMACH UPSET, (Reported) Gabapentin 600 Mg Tablet, 600 MG PO QID, (Reported) TAKES ALONG WITH 300MG CAPSULE FOR A TOTAL DOSE OF 900MG 4 TIMES DAILY Gabapentin 300 Mg Capsule, 300 MG PO QID, (Reported) TAKES ALONG WITH 600MG FOR A TOTAL DAILY DOSE OF 900MG 4 TIMES DAILY Hydrocodone/Acetaminophen 1 Each Tablet, 1 EACH PO Q6H PRN for PAIN-MODERATE TO SEVERE Prescribed by: FER ELIZALDE on 11/08/17113 Ipratropium/Albuterol Sulfate 3 Ml Ampul.neb, 3 ML IH Q4H PRN for SHORTNESS OF BREATH Prescribed by: ELVIS NERI on 08/08/171103 Ipratropium/Albuterol Sulfate 3 Ml Ampul.neb, 3 ML IH Q4H PRN for SHORTNESS OF BREATH Prescribed by: FER ELIZALDE on 11/08/17113 Iron Ps Cmplx/Vit B12/FA 1 Each Capsule, 1 EACH PO DAILY Prescribed by: ELVIS NERI on 08/08/171103 Lipase/Protease/Amylase 1 Each Capsule.dr, 1 CAP PO TID, (Reported) Lipase/Protease/Amylase 1 Each Capsule.dr, 1 EACH PO TID Prescribed by: FER ELIZALDE on 11/08/17113 Omeprazole 20 Mg Capsule.dr, 20 MG PO DAILY, (Reported) Ondansetron 8 Mg Tab.rapdis, 8 MG PO TID PRN for NAUSEA/VOMITING-1ST LINE, ( Reported) Ondansetron 4 Mg Tab.rapdis, 4 MG SL Q4H PRN for NAUSEA/VOMITING-1ST LINE Prescribed by: FER ELIZALDE on 10/31/171835 Ondansetron 4 Mg Tab.rapdis, 4 MG PO Q4H PRN for NAUSEA/VOMITING-1ST LINE Prescribed by: STEFFEN JONES on 11/08/172022 Pantoprazole Sodium 40 Mg Tablet., 40 MG PO DAILY, (Reported) Prednisone 20 Mg Tab, 20 MG PO DAILY Prescribed by: FER ELIZALDE on 10/31/171835 Simethicone 80 Mg Tab.chew, 2-4 TAB PO PC PRN for INDIGESTION, (Reported) Sulfamethoxazole/Trimethoprim 1 Each Tablet, 1 EACH PO BID Prescribed by: STEFFEN JONES on 11/08/172022 [Hydrocodone Bit/Acetaminophen] 5 TAB, 1 TAB PO Q6HR PRN for PAIN-MODERATE Prescribed by: ELVIS NERI on 08/08/17 1104 Patient Home Medication List Home Medication List Reviewed: Yes Review of Systems Constitutional: chills, No fever, malaise EENTM: No Symptoms Reported Respiratory: No Symptoms Reported Cardiovascular: No Symptoms Reported Gastrointestinal: See HPI, Denies Abdomen Distended, Abdominal Pain, Denies Constipated, Denies Diarrhea, Nausea, Poor Appetite, Denies Poor Fluid Intake, Denies Rectal Bleeding, Denies Vomiting Genitourinary: See HPI, Burning, Denies Discharge, Frequency, Flank Pain, Denies Hematuria, Denies Incontinence, Pain Musculoskeletal: No back pain Skin: no symptoms reported Psychiatric/Neurological: No Symptoms Reported All Other Systems Reviewed Negative Unless Noted: Yes (Negative excepted noted.) Past Ibkukcm-Knsnar-Toalbd Hx Patient Social History Alcohol Use: Denies Use Recreational Drug Use: Yes (ETOH- NOT FOR LAST SIX MONTHS) Type Used: Cigarettes 2nd Hand Smoke Exposure: No Recent Foreign Travel: No Contact w/Someone Who Travel: No Recent Infectious Disease Expo: No Recent Hopitalizations: No Physical Abuse: No Sexual Abuse: No Immunizations Up To Date Tetanus Booster (TDap): Less than 5yrs PED Vaccines UTD: No Date of Pneumonia Vaccine: Jul 26, 2009 Date of Influenza Vaccine: Sep 26, 2013 Seasonal Allergies Seasonal Allergies: No Past Medical History Surgeries: Yes (REMOVAL OF TEETH, hernia, dnc, l leg amputation) Amputation, Gallbladder, Hysterectomy Respiratory: Yes Asthma, Pneumonia, COPD, Emphysema Currently Using CPAP: No Currently Using BIPAP: No Cardiac: No Neurological: Yes Stroke 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 Disorders: Yes 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 Sexually Transmitted Disease: No HIV/AIDS: No Genitourinary: No Gastrointestinal: Yes Pancreatitis Musculoskeletal: Yes Amputee, Osteoporosis Endocrine: No HEENT: Yes Cataract Loss of Vision: Denies Hearing Impairment: Denies Cancer: No Psychosocial: Yes Anxiety, Depression Nursing Suicide Risk Score: 0 Integumentary: Yes (LARGE SCRATCHES ON RT LEG) Blood Disorders: No Adverse Reaction/Blood Tranf: No Family Medical History Reviewed Nursing Family Hx Alzheimer's disease 19 FATHER 19 MOTHER Asthma 19 FATHER Completed stroke 19 FATHER Deafness or hearing loss 19 FATHER Dementia 19 FATHER Diabetes mellitus 19 FATHER 19 MOTHER Headache disorder 19 FATHER Hypertension 19 FATHER 19 MOTHER Myocardial infarction 19 FATHER 19 MOTHER Respiratory disorder 19 FATHER No Family History of: Kidney disease COPD, Diabetes Physical Exam Vital Signs Vital Signs - First Documented 11/30/17 21:39 Temp 97.8 Pulse 86 Resp 14 B/P (MAP) 113/81 (92) Pulse Ox 94 O2 Delivery Room Air Capillary Refill : Less Than 3 Seconds General Appearance: no apparent distress, cachetic, thin, other (disheveled) HEENT: PERRL/EOMI, pharynx normal Neck: supple, normal inspection Respiratory: lungs clear, normal breath sounds, no respiratory distress, no accessory muscle use Cardiovascular: normal peripheral pulses, regular rate, rhythm, no edema, no murmur Gastrointestinal: normal bowel sounds, soft, no organomegaly, No distended, guarding (left sided guarding.), No rebound, tenderness (left sided abdominal tenderness) Extremities: no pedal edema, no calf tenderness, normal capillary refill, other (left AKA) Back: normal inspection, no CVA tenderness Neurologic/Psychiatric: alert, normal mood/affect, oriented x 3 Skin: normal color, warm/dry Progress/Results/Core Measures Lab Results Laboratory Tests Test 11/30/17 21:40 11/30/17 22:11 Range/Units White Blood Count 9.2 4.3-11.0 10^3/uL Red Blood Count 3.86 L 4.35-5.85 10^6/uL Hemoglobin 11.7 11.5-16.0 G/DL Hematocrit 39 35-52 % Mean Corpuscular Volume 100 H 80-99 FL Mean Corpuscular Hemoglobin 30 25-34 PG Mean Corpuscular Hemoglobin Concent 30 L 32-36 G/DL Red Cell Distribution Width 16.2 H 10.0-14.5 % Platelet Count 213 130-400 10^3/uL Mean Platelet Volume 10.7 H 7.4-10.4 FL Neutrophils (%) (Auto) 71 42-75 % Lymphocytes (%) (Auto) 14 12-44 % Monocytes (%) (Auto) 13 H 0-12 % Eosinophils (%) (Auto) 1 0-10 % Basophils (%) (Auto) 1 0-10 % Neutrophils # (Auto) 6.6 1.8-7.8 X 10^3 Lymphocytes # (Auto) 1.3 1.0-4.0 X 10^3 Monocytes # (Auto) 1.2 H 0.0-1.0 X 10^3 Eosinophils # (Auto) 0.1 0.0-0.3 10^3/uL Basophils # (Auto) 0.1 0.0-0.1 10^3/uL Sodium Level 135 135-145 MMOL/L Potassium Level 3.2 L 3.6-5.0 MMOL/L Chloride Level 111 H 98-107 MMOL/L Carbon Dioxide Level 14 L 21-32 MMOL/L Anion Gap 10 5-14 MMOL/L Blood Urea Nitrogen 35 H 7-18 MG/DL Creatinine 1.55 H 0.60-1.30 MG/DL Estimat Glomerular Filtration Rate 36 BUN/Creatinine Ratio 23 Glucose Level 154 H 70-105 MG/DL Calcium Level 8.3 L 8.5-10.1 MG/DL Total Bilirubin 0.2 0.1-1.0 MG/DL Aspartate Amino Transf (AST/SGOT) 8 5-34 U/L Alanine Aminotransferase (ALT/SGPT) < 6 0-55 U/L Alkaline Phosphatase 99 40-136 U/L C-Reactive Protein High Sensitivity 0.24 0.00-0.50 MG/DL Total Protein 7.1 6.4-8.2 GM/DL Albumin 4.0 3.2-4.5 GM/DL Amylase Level 54 25-125 U/L Lipase 92 H 8-78 U/L Urine Color YELLOW Urine Clarity CLEAR Urine pH 5 5-9 Urine Specific [place] 1.010 L 1.016-1.022 Urine Protein 2+ H NEGATIVE Urine Glucose (UA) NEGATIVE NEGATIVE Urine Ketones NEGATIVE NEGATIVE Urine Nitrite NEGATIVE NEGATIVE Urine Bilirubin NEGATIVE NEGATIVE Urine Urobilinogen NORMAL NORMAL MG/DL Urine Leukocyte Esterase 1+ H NEGATIVE Urine RBC (Auto) NEGATIVE NEGATIVE Urine RBC RARE /HPF Urine WBC 5-10 H /HPF Urine Squamous Epithelial Cells 5-10 /HPF Urine Renal Epithelial Cells NONE /HPF Urine Crystals NONE /LPF Urine Bacteria FEW H /HPF Urine Casts PRESENT /LPF Urine Hyaline Casts RARE /LPF Urine Granular Casts 2-5 H /LPF Urine Mucus NEGATIVE /LPF Urine Culture Indicated YES My Orders Orders - STEFFEN JONES Saline Lock/Iv-Start (11/30/17 22:19) Amylase (11/30/17 22:19) Cbc With Automated Diff (11/30/17 22:19) Comprehensive Metabolic Panel (11/30/17 22:19) Hs C Reactive Protein (11/30/17 22:19) Lipase (11/30/17 22:19) Ua Culture If Indicated (11/30/17 22:19) Urine Culture (11/30/17 22:11) Ns Iv 1000 Ml (Sodium Chloride 0.9%) (11/30/17 22:54) Ondansetron Injection (Zofran Injectio (11/30/17 23:00) Fentanyl Injection (Sublimaze Injection (11/30/17 22:54) Ct Abdomen/Pelvis Wo (11/30/17 23:40) Medications Given in ED Current Medications Medications Dose Ordered Sig/Ely Route Start Time Stop Time Status Last Admin Dose Admin Ondansetron HCl 4 mg ONCE ONCE IVP 11/30/17 23:00 11/30/17 23:04 DC 11/30/17 23:13 4 MG Sodium Chloride 1,000 ml @ 0 mls/hr Q0M ONCE IV 11/30/17 22:54 11/30/17 23:04 DC 11/30/17 23:13 0 MLS/HR Vital Signs/I&O 11/30/17 21:39 Temp 97.8 Pulse 86 Resp 14 B/P (MAP) 113/81 (92) Pulse Ox 94 O2 Delivery Room Air Blood Pressure Mean: 92 Diagonstic Imaging: CT Plain Films/CT/US/NM/MRI: abdomen, pelvis Comments Mild bilateral nonspecific perinephric stranding may be assessment. Pyelonephritis is not excluded. No hydronephrosis or nephrolithiasis noted. Findings per statrad report. Reviewed: Reviewed Night Rk Study Departure Communication (Admissions) Time/Spoke to Admitting Phy: 00:05 Dr. Argueta graciously accepts pt to her internal medicine service for IV antibiotics due to multiresistant organism noted on Urine cx from 11/08/17. All laboratory findings, diagnostic study findings, and plan for admission discussed with the patient. Patient verbalizes understanding and agrees with the treatment plan. Dr. Paulino notified of plan of admit. Impression Primary Impression: Urinary tract infection Qualified Codes: N30.00 - Acute cystitis without hematuria Additional Impressions: Antibiotic-resistant bacterial infection Acute on chronic kidney failure Qualified Codes: N17.9 - Acute kidney failure, unspecified; N18.9 - Chronic kidney disease, unspecified Hypokalemia Disposition: ADMITTED INPATIENT Condition: Stable Admissions Decision to Admit Reason: Admit from ER (General) Decision to Admit/Date: Dec 01, 2017 Time/Decision to Admit Time: 00:05 Departure-Patient Inst. Referrals: NO,LOCAL PHYSICIAN (PCP/Family) Primary Care Physician STEFFEN JONES Nov 30, 2017 23:42
[2017-12-01 01:10] VITALS: BP 130/79
[2017-12-01] MEDS ORDERED: ONDANSETRON 4 MG/2 ML (SDV) Z0FRAN IV PRN (03:15)
[2017-12-01] MEDS ORDERED: ACETAMINOPHEN 500 MG TAB (TYLENOL) PO PRN (03:15)
[2017-12-01] MEDS: NS W/KCL 20 MEQ/L 1,000 ML IV SCH ×2 (03:16→11:34)
[2017-12-01] MEDS: HYDROcodone/APAP 5 MG/325 MG (LORTAB) TAB PO PRN ×4 (03:16→20:56)
[2017-12-01] MEDS: PHENAZOPYRIDINE 100 MG (PYRIDIUM) TABLET PO SCH ×3 (03:16→18:18)
[2017-12-01] MEDS: MEROPENEM 1,000 MG in NS (IVPB) 100 ML IV SCH ×2 (03:38→11:34)
[2017-12-01 03:55] VITALS: BP 107/69
[2017-12-01 04:49] LABS: BASOPHILS # (AUTO) 0.1 10^3/uL (0.0-0.1); BASOPHILS % (AUTO) 1 % (0-10); EOSINOPHILS # (AUTO) 0.1 10^3/uL (0.0-0.3); EOSINOPHILS % (AUTO) 1 % (0-10); HEMATOCRIT 36 % (35-52); HEMOGLOBIN 10.4 G/DL (11.5-16.0); LYMPHOCYTES # (AUTO) 1.8 X 10^3 (1.0-4.0); LYMPHOCYTES % (AUTO) 16 % (12-44); MEAN CORPUSCULAR HEMOGLOBIN 30 PG (25-34); MEAN CORPUSCULAR HGB CONC 29 G/DL (32-36); MEAN CORPUSCULAR VOLUME 101 FL (80-99); MEAN PLATELET VOLUME 10.6 FL (7.4-10.4); MONOCYTES # (AUTO) 1.7 X 10^3 (0.0-1.0); MONOCYTES % (AUTO) 16 % (0-12); NEUTROPHILS # (AUTO) 7.4 X 10^3 (1.8-7.8); NEUTROPHILS % (AUTO) 67 % (42-75); PLATELET COUNT 195 10^3/uL (130-400); RED BLOOD COUNT 3.52 10^6/uL (4.35-5.85); RED CELL DISTRIBUTION WIDTH 16.2 % (10.0-14.5); WHITE BLOOD COUNT 11.1 10^3/uL (4.3-11.0)
[2017-12-01 05:08] LABS: ALANINE AMINOTRANSFERASE < 6 U/L (0-55); ALBUMIN 3.5 GM/DL (3.2-4.5); ALKALINE PHOSPHATASE 86 U/L (40-136); BILIRUBIN,TOTAL 0.1 MG/DL (0.1-1.0); BUN/CREATININE RATIO 24; CARBON DIOXIDE 13 MMOL/L (21-32); CHLORIDE 116 MMOL/L (98-107); CREATININE SERUM 1.19 MG/DL (0.60-1.30); GFR ESTIMATED 48; GLUCOSE 85 MG/DL (70-105); POTASSIUM 3.7 MMOL/L (3.6-5.0); SODIUM 136 MMOL/L (135-145); TOTAL PROTEIN 6.3 GM/DL (6.4-8.2)
--- NOTE | 2017-12-01 06:59 | Diagnostic Imaging Report ---
PROCEDURE: CT abdomen and pelvis without contrast. TECHNIQUE: Multiple contiguous axial images were obtained through the abdomen and pelvis without the use of intravenous contrast. INDICATION: Abdominal pain. Comparison made with prior study from May 21, 2017. FINDINGS: The visualized lung bases appear clear. There is no pleural or pericardial effusion. The noncontrast appearance of liver unremarkable. Patient is status post previous cholecystectomy. There is no abnormal biliary dilatation. Spleen normal in size. Pancreas demonstrates no focal abnormality. There is no adrenal mass. There is mild nonspecific bilateral perinephric fat stranding. There is no evidence of hydronephrosis or of an intrarenal calculus. Small and large bowel normal in caliber without obstruction. There is no focal abnormal bowel thickening. There is no evidence to suggest appendicitis. Prior surgical changes at the right groin. Urinary bladder demonstrates a subtle suggestion of some possible mild bladder wall thickening though the urinary bladder is incompletely distended. Patient is status post hysterectomy. There is no evidence of pelvic mass. There is no free fluid, abscess or free air. There is no abnormal abdominal or pelvic adenopathy. No acute or suspicious osseous abnormality demonstrated. IMPRESSION: 1. Mild nonspecific bilateral perinephric fat stranding which could relate to a urinary tract infection. There is no evidence of urolithiasis or hydronephrosis. There is a very subtle suggestion of some possible mild urinary bladder wall thickening. 2. Previous cholecystectomy and hysterectomy. 3. No evidence of bowel obstruction. 4. No recurrent fluid or inflammation evident about the pancreas on today's exam. Dictated by: Dictated on workstation # [id number]
[2017-12-01 08:00] VITALS: BP 87/63
[2017-12-01] MEDS: NICOTINE PATCH REMOVAL TP SCH (08:14)
[2017-12-01] MEDS: NICOTINE 21 MG (NICODERM) PATCH TD SCH (08:59)
[2017-12-01] MEDS ORDERED: FAMOTIDINE 20 MG (PEPCID) TABLET PO SCH (09:00)
[2017-12-01] MEDS ORDERED: NICOTINE 7 MG (NICODERM) PATCH TD SCH (09:00)
[2017-12-01 12:00] VITALS: BP 105/65
[2017-12-01] MEDS ORDERED: ALBU90AE IH (12:31)
[2017-12-01] MEDS ORDERED: IPRA3AMP IH (12:31)
[2017-12-01] MEDS ORDERED: SUMA100T3 PO (12:44)
--- NOTE | 2017-12-01 13:28 | History & Physical-Hospitalist ---
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 She stated her pain started ~3 weeks ago when she was seen in the ER and found to have a UTI. She was started on antibiotics and sent home. Her culture from that time though grew resistant e coli and her symptoms continued to worsen. She denies any fevers but was having dysuria. She has also lost weight due to throwing up and not feeling well. She reports she was taking her antibiotic as prescribed but not improving. She has a multitude of other complaints as well about her phantom leg pain, nicotine patch not being strong enough, and wanting to change diets but no other concerns regarding her reason for admission. Source: patient Date Seen 12/01/17 Time Seen by Provider: 13:20 Attending Physician Lolita Argueta MD PCP No,Local Physician Referring Physician Date of Admission Dec 01, 2017 at 00:08 Home Medications & Allergies Home Medications Reviewed patient Home Medication Reconciliation performed by pharmacy medication reconciliations biosolids management technician and/or nursing. Patients Allergies have been reviewed. Allergies Allergies Coded Allergies ofloxacin (Verified Allergy, Mild, 08/10/16) Penicillins (Verified Allergy, Unknown, Pt has received Ceftriaxone & Cefepime in the past w/o issue, 08/06/17) amoxicillin (Verified Allergy, Unknown, 08/10/16) clavulanic acid (Verified Allergy, Unknown, 08/10/16) promethazine (Verified Allergy, Unknown, 08/10/16) propoxyphene (Verified Allergy, Unknown, 08/10/16) ketorolac (Verified Adverse Reaction, Unknown, 11/08/17) tramadol (Verified Adverse Reaction, Unknown, 11/08/17) Past Xovdcuu-Yjoaln-Moldzo Hx Past Med/Social Hx: Reviewed Nursing Past Med/Soc Hx Patient Social History Marrital Status: Employed/Student: unemployed Alcohol Use: Past History Number of Drinks Today: 0 Alcohol Beverage of Choice: Beer Recreational Drug Use: No Smoking Status: Current Everyday Smoker Type Used: Cigars (2 packs per day), Cigarettes 2nd Hand Smoke Exposure: No Physical Abuse Screen: No Sexual Abuse: No Recent Foreign Travel: No Contact w/other who traveled: No Recent Hopitalizations: Yes Recent Infectious Disease Expo: No Immunizations Up To Date Tetanus Booster (TDap): Less than 5yrs Pediatric: No Date of Pneumonia Vaccine: Jul 26, 2009 Date of Influenza Vaccine: Sep 26, 2013 Seasonal Allergies Seasonal Allergies: No Past Medical History Surgeries: Amputation, Gallbladder, Hysterectomy Currently Using CPAP: No Currently Using BIPAP: No Neurological: Stroke 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: Yes Sexually Transmitted Disease: No HIV/AIDS: No 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 Hysterectomy Genitourinary: UTI-Chronic Gastrointestinal: Pancreatitis, Hiatal Hernia Musculoskeletal: Amputee, Osteoporosis HEENT: Cataract Loss of Vision: Denies Hearing Impairment: Denies Psychosocial: Anxiety, Depression History of Blood Disorders: No Adverse Reaction to Blood [place]: No Family History Reviewed Nursing Family Hx Alzheimer's disease 19 FATHER 19 MOTHER Asthma 19 FATHER Completed stroke 19 FATHER Deafness or hearing loss 19 FATHER Dementia 19 FATHER Diabetes mellitus 19 FATHER 19 MOTHER Headache disorder 19 FATHER Hypertension 19 FATHER 19 MOTHER Myocardial infarction 19 FATHER 19 MOTHER Respiratory disorder 19 FATHER No Family History of: Kidney disease Heart Disease, COPD, Diabetes, Hypertension, Stroke Review of Systems Constitutional: No chills, No fever, weight loss EENTM: No blurred vision, No double vision, No nose congestion, No throat pain Respiratory: No cough, No dyspnea on exertion, No short of breath Cardiovascular: No chest pain, No edema, No palpitations Gastrointestinal: abdominal pain, No constipation, No diarrhea, nausea, vomiting Genitourinary: No dysuria, No frequency Musculoskeletal: joint pain Skin: No lesions, No rash Psychiatric/Neurological: Denies Headache, Denies Numbness, Denies Tingling All Other Systems Reviewed Negative Unless Noted: Yes (Negative excepted noted.) Physical Exam Physical Exam Vital Signs Vital Signs - First Documented 11/30/17 21:39 Temp 97.8 Pulse 86 Resp 14 B/P (MAP) 113/81 (92) Pulse Ox 94 O2 Delivery Room Air Capillary Refill : Less Than 3 Seconds General Appearance: No Apparent Distress, Chronically ill HEENT: PERRL/EOMI, Moist Mucous Membranes, No Scleral Icterus (L), No Scleral Icterus (R), Other (poor dentition) Neck: Non Tender, Supple Respiratory: Lungs Clear, No Respiratory Distress Cardiovascular: Regular Rate, Rhythm, No Murmur Gastrointestinal: Normal Bowel Sounds, Non Tender, Soft, No Distended Extremity: Normal Capillary Refill, No Calf Tenderness, No Pedal Edema, Other ( left AKA) Neurologic/Psychiatric: Alert, Oriented x3 Skin: Normal Color, Warm/Dry Results Results/Procedures Labs Laboratory Tests 11/30/17 21:40 12/01/17 04:15 Patient resulted labs reviewed. Imaging: Reviewed Imaging Report Imaging Date of Exam: 11/30/17 CT ABDOMEN/PELVIS WO PROCEDURE: CT abdomen and pelvis without contrast. TECHNIQUE: Multiple contiguous axial images were obtained through the abdomen and pelvis without the use of intravenous contrast. INDICATION: Abdominal pain. Comparison made with prior study from May 21, 2017. FINDINGS: The visualized lung bases appear clear. There is no pleural or pericardial effusion. The noncontrast appearance of liver unremarkable. Patient is status post previous cholecystectomy. There is no abnormal biliary dilatation. Spleen normal in size. Pancreas demonstrates no focal abnormality. There is no adrenal mass. There is mild nonspecific bilateral perinephric fat stranding. There is no evidence of hydronephrosis or of an intrarenal calculus. Small and large bowel normal in caliber without obstruction. There is no focal abnormal bowel thickening. There is no evidence to suggest appendicitis. Prior surgical changes at the right groin. Urinary bladder demonstrates a subtle suggestion of some possible mild bladder wall thickening though the urinary bladder is incompletely distended. Patient is status post hysterectomy. There is no evidence of pelvic mass. There is no free fluid, abscess or free air. There is no abnormal abdominal or pelvic adenopathy. No acute or suspicious osseous abnormality demonstrated. IMPRESSION: 1. Mild nonspecific bilateral perinephric fat stranding which could relate to a urinary tract infection. There is no evidence of urolithiasis or hydronephrosis. There is a very subtle suggestion of some possible mild urinary bladder wall thickening. 2. Previous cholecystectomy and hysterectomy. 3. No evidence of bowel obstruction. 4. No recurrent fluid or inflammation evident about the pancreas on today's exam. Assessment/Plan Admission Diagnosis UTI, failed outpatient antibiotics Admission Status: Inpatient Order (span 2 midnights) Reason for Inpatient Admission: iv abx, failed outpatient, resistent bacteria Diagnosis/Problems Diagnosis/Problems (1) Antibiotic-resistant bacterial infection Status: Acute Assessment & Plan: Continue Merrem per sensitivities from 11/08 Await sensitivities from yesterday's culture (2) Urinary tract infection Status: Acute Assessment & Plan: Contenue abx as above Not sepsis Qualifiers: Urinary tract infection type: acute cystitis Hematuria presence: without hematuria Qualified Codes: N30.00 - Acute cystitis without hematuria (3) Acute on chronic kidney failure Status: Resolved Assessment & Plan: Likely due to hypovolemia from throwing up Resolved today with IVF Qualifiers: Acute renal failure type: unspecified Chronic kidney disease stage: stage 3 (moderate) Qualified Codes: N17.9 - Acute kidney failure, unspecified; N18.3 - Chronic kidney disease, stage 3 (moderate) (4) Nausea and vomiting Status: Acute Assessment & Plan: Zofran prn Requesting advancement of diet so will advance to soft Qualifiers: Vomiting type: unspecified Vomiting Intractability: unspecified Qualified Codes: R11.2 - Nausea with vomiting, unspecified (5) Pancreatitis Status: Acute Assessment & Plan: Will resume pancreatic enzymes Qualifiers: Chronicity: chronic 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
[2017-12-01] MEDS ORDERED: RT-ALBUTEROL/IPRATROPIUM 3 ML (DUONEB) VIAL IH PRN (14:00)
[2017-12-01] MEDS ORDERED: DICYCLOMINE 10 MG (BENTYL) CAP PO PRN (14:00)
[2017-12-01] MEDS ORDERED: ONDANSETRON 8 MG (ZOFRAN) ORAL DISSOLVE TAB PO PRN (14:00)
[2017-12-01] MEDS: ENOXAPARIN 30 MG/0.3 ML (LOVENOX) SYR SC SCH (14:24)
[2017-12-01 16:00] VITALS: BP 131/88
[2017-12-01] MEDS: GABAPENTIN 600 MG (NEURONTIN) TAB PO SCH ×2 (16:09→20:55)
[2017-12-01] MEDS: LIPASE/AMYLASE/PROTEASE (PANCRELIPASE) 5,000 UNITS CAP PO SCH (16:09)
[2017-12-01] MEDS: GABAPENTIN 300 MG (NEURONTIN) CAP PO SCH ×2 (16:09→20:55)
[2017-12-01] MEDS: inSUlin ASPART (NovoLOG) 1 UNIT/0.01 ML (CHARGE PER UNIT) SC SCH ×2 (16:09→20:56)
[2017-12-01] MEDS ORDERED: RT-ADVAIR HFA 115/21 MCG PER PUFF IH SCH (20:00)
[2017-12-01] MEDS: MEROPENEM 500 MG in NS (IVPB) 100 ML IV SCH (20:32)
[2017-12-01] MEDS ORDERED: LIPASE PO SCH (21:00)
[2017-12-01] MEDS ORDERED: [UNRECOGNIZED DRUG - OTHER] PO SCH (21:00)
[2017-12-01] MEDS ORDERED: AMYLASE PO SCH (21:00)
[2017-12-01] MEDS ORDERED: PROTEASE PO SCH (21:00)
[2017-12-01] MEDS ORDERED: RT-SYMBICORT 160/4.5 MCG INHALER PER PUFF IH SCH (21:00)
[2017-12-02] VITALS: BP 122/58
[2017-12-02] MEDS: HYDROcodone/APAP 5 MG/325 MG (LORTAB) TAB PO PRN ×4 (00:39→12:59)
[2017-12-02] MEDS: MEROPENEM 500 MG in NS (IVPB) 100 ML IV SCH ×2 (04:16→11:47)
[2017-12-02] MEDS: PHENAZOPYRIDINE 100 MG (PYRIDIUM) TABLET PO SCH ×2 (04:16→11:46)
[2017-12-02] MEDS: inSUlin ASPART (NovoLOG) 1 UNIT/0.01 ML (CHARGE PER UNIT) SC SCH ×2 (05:26→11:34)
[2017-12-02] MEDS: LIPASE/AMYLASE/PROTEASE (PANCRELIPASE) 5,000 UNITS CAP PO SCH ×2 (06:14→11:46)
[2017-12-02 06:41] LABS: BASOPHILS # (AUTO) 0.1 10^3/uL (0.0-0.1); BASOPHILS % (AUTO) 1 % (0-10); EOSINOPHILS # (AUTO) 0.3 10^3/uL (0.0-0.3); EOSINOPHILS % (AUTO) 6 % (0-10); LYMPHOCYTES # (AUTO) 1.6 X 10^3 (1.0-4.0); LYMPHOCYTES % (AUTO) 30 % (12-44); MEAN CORPUSCULAR HGB CONC 30 G/DL (32-36); MEAN CORPUSCULAR VOLUME 100 FL (80-99); MEAN PLATELET VOLUME 9.5 FL (7.4-10.4); MONOCYTES # (AUTO) 0.9 X 10^3 (0.0-1.0); MONOCYTES % (AUTO) 18 % (0-12); NEUTROPHILS # (AUTO) 2.3 X 10^3 (1.8-7.8); NEUTROPHILS % (AUTO) 45 % (42-75); RED CELL DISTRIBUTION WIDTH 16.1 % (10.0-14.5)
[2017-12-02 06:46] LABS: HEMATOCRIT 33 % (35-52); MEAN CORPUSCULAR HEMOGLOBIN 30 PG (25-34); PLATELET COUNT 152 10^3/uL (130-400); RED BLOOD COUNT 3.36 10^6/uL (4.35-5.85); WHITE BLOOD COUNT 5.7 10^3/uL (4.3-11.0)
[2017-12-02] MEDS ORDERED: PANTOPRAZOLE 20 MG TABLET (PROTONIX) PO SCH (07:00)
[2017-12-02 07:04] LABS: CALCIUM 8.3 MG/DL (8.5-10.1); CREATININE SERUM 1.1 MG/DL (0.60-1.30); POTASSIUM 4.3 MMOL/L (3.6-5.0)
[2017-12-02 08:00] VITALS: BP 118/70
[2017-12-02] MEDS: GABAPENTIN 300 MG (NEURONTIN) CAP PO SCH (08:43)
[2017-12-02] MEDS: GABAPENTIN 600 MG (NEURONTIN) TAB PO SCH (08:43)
[2017-12-02] MEDS: NICOTINE 21 MG (NICODERM) PATCH TD SCH (08:44)
[2017-12-02] MEDS ORDERED: FAMOTIDINE 20 MG (PEPCID) TABLET PO SCH (09:00)
[2017-12-02] MEDS ORDERED: OMEPRAZOLE 20 MG (PriLOSEC) CAP NON-FORMULARY PO SCH (09:00)
[2017-12-02] MEDS: NICOTINE PATCH REMOVAL TP SCH (09:00)
--- NOTE | 2017-12-02 09:48 | Physical Therapy Evaluation ---
PT Evaluation-General Medical Diagnosis Admission Date Dec 01, 2017 at 00:08 Medical Diagnosis: UTI Onset Date: Dec 01, 2017 Therapy Diagnosis Therapy Diagnosis: debility Height/Weight Height (Feet): 5 Height (Inches): 1.00 Weight (Pounds): 75 Weight (Ounces): 5.0 Precautions Precautions/Isolations: Contact Isolation, Fall Prevention Weight Bear Status Right Lower Extremity: Right Weight Bearing/Tolerated Left Lower Extremity: Left Non Weight Bearing Referral Physician: Ellie Reason for Referral: Evaluation/Treatment Medical History Pertinent Medical History: Neuropathy, Renal Insufficiency, Smoking Additional Medical History chronic pancreatitis Current History EMS secondary to abdominal pain Reviewed History: Yes Social History Home: Apartment Current Living Status: Significant Other Entry Into Home: Level Entry Prior/Core FIM Prior Level of Function Functional [place] Measure 0=Not Assessed/NA 4=Minimal Assistance 1=Total Assistance 5=Supervision or Setup 2=Maximal Assistance 6=Modified [place] 3=Moderate Assistance 7=Complete [place] Bed Mobility: 6 Transfers (B,C,W/C) (FIM): 6 Gait: 0 Wheelchair Mobility: 6 Patient utilizes FWW for mobility PT Evaluation-Current Subjective Upon entering room, patient reports, "I will not stand up to that walker. You can take it out. I just want a new w/c to use." Pain Numeric Pain Scale: 0-No Pain Location: No Pain Reported Objective Patient Orientation: Normal For Age Problem Solving: Fair ROM/Strength ROM Lower Extremities right LE WNL Strength Lower Extremities right LE 4/5 grossly Integumentary/Posture Integumentary refer to nursing notes Bowel Incontinence: No Bladder Incontinence: No Posture WFL Neuromuscular (Tone, Coordination, Reflexes) grossly intact Sensory Vision: Functional Hearing: Functional Sensation Right Lower Extremit: Impaired Transfers Functional [place] Measure 0=Not Assessed/NA 4=Minimal Assistance 1=Total Assistance 5=Supervision or Setup 2=Maximal Assistance 6=Modified [place] 3=Moderate Assistance 7=Complete [place] Transfers (B, C, W/C) (FIM): 6 Scootin Rollin Supine to/from Sit: 7 Sit to/from Stand: 6 bed t/f WC(FIM only if WC use): 6 Gait Mode of Locomotion: Wheelchair Anticipated Mode of Locomotion: Wheelchair Balance Sitting Static: Normal Sitting Dynamic: Normal Standing Static: Fair Standing Dynamic: Fair Assessment/Needs 47 y.o. female, is currently at [facility] with all gross motor skills and declined and does not require skilled therapy intervention. SS notified of patient need for w/c for home use. Rehab Potential: Fair PT Plan Treatment/Plan Treatment Plan: Discontinue PT, goals met Treatment Plan: Other Treatment Duration: Dec 02, 2017 Frequency: 1 time per week Estimated Hrs Per Day: .5 hour per day Patient and/or Family Agrees t: Yes Discharge Recommendations Equpiment Recommendations-D/C: Manual Wheelchair Time/GCodes Time In: 810 Time Out: 826 Total Billed Treatment Time: 16 Total Billed Treatment 1 visit EVModC 16 min G Codes Necessary: VICENTA Hardy PT Dec 02, 2017 09:47
[2017-12-02] MEDS ORDERED: GABAPENTIN 300 MG (NEURONTIN) CAP PO SCH (13:00)
[2017-12-02] MEDS ORDERED: GABAPENTIN 600 MG (NEURONTIN) TAB PO SCH (13:00)
--- NOTE | 2017-12-02 14:11 | Progress Note-Hospitalist ---
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 She stated her pain started ~3 weeks ago when she was seen in the ER and found to have a UTI. She was started on antibiotics and sent home. Her culture from that time though grew resistant e coli and her symptoms continued to worsen. She denies any fevers but was having dysuria. She has also lost weight due to throwing up and not feeling well. She reports she was taking her antibiotic as prescribed but not improving. She has a multitude of other complaints as well about her phantom leg pain, nicotine patch not being strong enough, and wanting to change diets but no other concerns regarding her reason for admission. Progress Notes/Assess & Plan Date Seen 12/02/17 Time Seen by Provider: 14:06 Assessment & Plan The patient is a 47 year old white female well-known to me through dozens of emergency room and hospital contacts. She was admitted yesterday with what was anticipated to be a urinary tract infection with a multiply resistant organism. The UA appeared clean and there are no urinary pathogens growing. There is a probable Gardnerella. She has no other symptoms. She has been working social director attempting to arrange a prosthetic leg, later a new wheelchair and finally a scooter. Physical exam: She is alert and oriented. Lungs are clear to auscultation. CV is regular. Abdomen is soft. Impression: History of multiply resistant urinary tract infection. 2.no evidence of acute infection. 3 multiple mental health issues. 4.amputation lower extremity Plan: Discharge. SEE discharge sequence. AUSTYN LUQUE MD Dec 02, 2017 14:11
--- NOTE | 2017-12-02 14:14 | Discharge Instructions ---
Discharge Instructions Patient Instructions Patient Instructions: Drink plenty of liquids. Medications as on the discharge sequence Activity & Diet Discharge Diet: No Restrictions AUSTYN LUQUE MD Dec 02, 2017 14:14
--- NOTE | 2017-12-02 14:34 | Occupational Therapy Eval ---
OT Evaluation-General/PLF Medical Diagnosis Admission Date Dec 01, 2017 at 00:08 Medical Diagnosis: UTI Onset Date: Dec 01, 2017 Therapy Diagnosis Therapy Diagnosis: Decreased ADL skills Height/Weight Height (Feet): 5 Height (Inches): 1.00 Weight (Pounds): 75 Weight (Ounces): 5.0 Precautions Precautions/Isolations: Contact Isolation, Fall Prevention Safety Interventions: None Referral Physician: Ellie Referral Reason: Activity Tolerance, Self Care, Evaluation/Treatment, Strengthening/ROM Medical History Pertinent Medical History: Neuropathy, Renal Insufficiency, Smoking Additional Medical History Bacterial infection, UTI, chronic pancreatitis, neuropathy, left LE amputation 6 years ago. Current History Pt. states that she has an infection, "but they aren't sure where it is." Reviewed History: Yes Social History Home: Apartment Current Living Status: Significant Other Entry Into Home: Level Entry ADL-Prior Level of Function ADL PLOF Comments Pt. was independent with all basic self care skills. DME/Equipment: Tub/Shower DME/Equipment Comments Pt. currently has a manual wheelchair that she states "was given to me." Does not have a tub shower chair. States that she has to "crawl" over the tub. Drive Self: No OT Current Status Subjective Pt. reports phantom leg pain in left LE when OT walks in room. Does not state a pain level. Appearance Pt. in bed. Pt. is dressed. Mental Status/Objective Patient Orientation: Person, Place Current Glasses/Contacts: Yes Upper Extremity ROM WFL ADL-Treatment Functional Likely Measure 0=Not Assessed/NA 4=Minimal Assistance 1=Total Assistance 5=Supervision or Setup 2=Maximal Assistance 6=Modified Likely 3=Moderate Assistance 7=Complete IndependenceIRFPAI Quality Coding Scale 6 Independent with activity with or without an assistive device 5 Patient requires set up or clean up by helper. Patient completes activity by themselves 4 Supervision or touching assist (CGA). [place] provide cues , steadying assist 3 The helper provides less than half the effort to complete the activity 2 The helper provides more than half the effort to complete the activity 1 Dependent. The helper does all the effort to complete an activity 7 Patient refused to complete or attempt activity 9 The patient did not perform the activity before the current illness or injury 88 Not attempted due to Medical conditions or safety concerns Other Treatments Pt. begins to tell OT about her leg pain when OT comes in room. OT attempts to get a clear understanding of what is going on. Pt. states that she had her leg amputated 6 years ago. Pt has some difficulty explaining the process of her healthcare at this point. With much questioning, pt. states that she never had any PT for her left LE, and that a prosthetic leg was given to her from [facility] in , but was made for someone else? Pt. then states that she donated it. OT checked residual limb. Limb and old incision intact. Pt. states that she has severe nerve pain. OT offered to begin a desensitization program with her. Pt. states "no" that she would like more pain medication before. Nursing states that pt. has already had her max pain pills. Noted that pt. had dirty slipper sock on residual limb. OT applied tubi-sales team manager and new sock to limb. OT asked pt. if she were having trouble with any other tasks, such as bathing/ dressing/transferring. Pt. states that "no" she is doing fine. No further need for OT at that point. Pt. did ask for OT to come back however, and stated that she would like a knee scooter. OT explained that she was not appropriate for this. Pt. adamant. OT passed this on to social work. Education OT Patient Education: Correct positioning, Disease process, Modified ADL techniques Teaching Recipient: Patient Teaching Methods: Demonstration Response to Teaching: Verbalize Understanding, Return Demonstration OT Short Term Goals Short Term Goals 1=Demonstrate adherence to instructed precautions during ADL tasks. 2=Patient will verbalize/demonstrate understanding of assistive devices/ modifications for ADL. 3=Patient will improve strength/tolerance for activity to enable patient to perform ADL's. OT Facility Maintenance Manager Goals Facility Maintenance Manager Goals Time Frame: Dec 02, 2017 Pt. at previous PLOF. No further OT required at this time. 1=Demonstrate adherence to instructed precautions during ADL tasks. 2=Patient will verbalize/demonstrate understanding of assistive devices/ modifications for ADL. 3=Patient will improve strength/tolerance for activity to enable patient to perform ADL's. OT Education/Plan Problem List/Assessment Assessment: No Skilled OT Needs ID'd Discharge Recommendations Plan/Recommendations: Discontinue OT Therapy D/C Recommendations: Home w/ Family Support Target Placement Home with family. Social work has been notified of pt's needs for home. Treatment Plan/Plan of Care Treatment,Training & Education: Yes Treatment Duration: Dec 02, 2017 Frequency: 1 time per week Estimated Hrs Per Day: Other Agreement: Yes Rehab Potential: Fair Time/GCodes Start Time: 11:25 Stop Time: 12:00 Total Time Billed (hr/min): 35 Billed Treatment Time 1, EVL x 15minutes, FA x 20minutes Self cur-CI Selfgoal-CI SelfDC- CI MARIMAR TENORIO OT Dec 02, 2017 14:34
[2017-12-02] MEDS: ENOXAPARIN 30 MG/0.3 ML (LOVENOX) SYR SC SCH (15:14)
[2017-12-02 16:40] VITALS: BP 118/70
== END 2017-12-02 14:13 | disposition home or self-care (01) ==
LOC: EDUNIT# 21:34 → ER 21:35 → 4TH 21:36 → UNDOADMOB 12-01 00:08 → 4TH 12-01 00:08 → UNDODISOB 12-02 16:35
PROVIDERS: ADMIT Family Medicine; ATTEND Family Medicine
DX: N30.00 Acute cystitis without hematuria (principal); N17.9 Acute kidney failure, unspecified; N18.3 Chronic kidney disease, stage 3 (moderate); Z16.29 Resistance to other single specified antibiotic; K86.0 Alcohol-induced chronic pancreatitis; M81.0 Age-related osteoporosis without current pathological fracture; F17.210 Nicotine dependence, cigarettes, uncomplicated; Z88.0 Allergy status to penicillin; Z88.1 Allergy status to other antibiotic agents; Z88.8 Allergy status to other drugs, medicaments and biological substances; Z88.6 Allergy status to analgesic agent
CPT/HCPCS: 36415; 74176; 80048; 80053; 81000; 82150; 82962; 83690; 85025; 86141; 87088; 96374; 96375; G0378

== ENCOUNTER 2017-12-07 17:08 | Emergency (ER) | payer MEDICAID ==
[~2017-12-07] VITALS: Ht 154.9 cm; Wt 34.0 kg
[~2017-12-07 17:08] MED LIST changes: +ALBU90AE IH; -IPRA3AMP IH; +IPRA3AMP31 IH; +SUMA100T3 PO
[2017-12-07] MEDS ORDERED: PROCHLORPERAZINE 10 MG/2ML INJ (COMPAZINE) IV ONE (17:15)
[2017-12-07] MEDS ORDERED: NS IV 1000 ML 1,000 ML IV SCH (17:15)
--- NOTE | 2017-12-07 17:15 | ED Abdominal Pain ---
General Chief Complaint: Abdominal/GI Problems Stated Complaint: DIARRHEA/ABD PAIN Source of Information: Patient Exam Limitations: No Limitations History of Present Illness Date Seen by Provider: Dec 07, 2017 Time Seen by Provider: 17:14 Initial Comments To ER per EMS from home with reports of suprapubic abdominal pain, nausea vomiting diarrhea for the past week. Timing/Duration: 1 Week Severity/Quality: Moderate Location: Suprapubic Associated Symptoms: Nausea/Vomiting Allergies and Home Medications Allergies Coded Allergies: ofloxacin (Verified Allergy, Mild, 08/10/16) Penicillins (Verified Allergy, Unknown, Pt has received Ceftriaxone & Cefepime in the past w/o issue, 08/06/17) amoxicillin (Verified Allergy, Unknown, 08/10/16) clavulanic acid (Verified Allergy, Unknown, 08/10/16) promethazine (Verified Allergy, Unknown, 08/10/16) propoxyphene (Verified Allergy, Unknown, 08/10/16) ketorolac (Verified Adverse Reaction, Unknown, 11/08/17) tramadol (Verified Adverse Reaction, Unknown, 11/08/17) Home Medications Albuterol Sulfate 90 Mcg Aer.pow.ba, 2 PUFF IH Q6H PRN for SHORTNESS OF BREATH, (Reported) Budesonide/Formoterol Fumarate 10.2 Gm Hfa.aer.ad, 2 PUFF IH 1-2 TIMES PER DAY, (Reported) LAST FILLED 09/30/17 #1 INHALER Dicyclomine HCl 10 Mg Capsule, 10 MG PO QID PRN for STOMACH UPSET, (Reported) Gabapentin 600 Mg Tablet, 600 MG PO QID, (Reported) TAKES ALONG WITH 300MG CAPSULE FOR A TOTAL DOSE OF 900MG 4 TIMES DAILY Gabapentin 300 Mg Capsule, 300 MG PO QID, (Reported) TAKES ALONG WITH 600MG FOR A TOTAL DAILY DOSE OF 900MG 4 TIMES DAILY Ipratropium/Albuterol Sulfate 3 Ml Ampul.neb, 3 ML IH Q4H PRN for SHORTNESS OF BREATH, (Reported) Lipase/Protease/Amylase 1 Each Capsule.dr, 1 CAP PO TID, (Reported) Omeprazole 20 Mg Capsule.dr, 20 MG PO DAILY, (Reported) Ondansetron 8 Mg Tab.rapdis, 8 MG PO TID PRN for NAUSEA/VOMITING-1ST LINE, ( Reported) Simethicone 80 Mg Tab.chew, 2-4 TAB PO PC PRN for INDIGESTION, (Reported) Sumatriptan Succinate 100 Mg Tablet, 100 MG PO UD PRN for MIGRAINE, (Reported) 1 TAB AT ONSET OF MIGRAINE, MAY REPEAT IN 2 HOURS. MAX 200MG/DAY Patient Home Medication List Home Medication List Reviewed: Yes Review of Systems Constitutional: see HPI EENTM: No Symptoms Reported Respiratory: No Symptoms Reported Cardiovascular: No Symptoms Reported Gastrointestinal: See HPI, Abdominal Pain, Diarrhea, Nausea, Vomiting Genitourinary: No Symptoms Reported Musculoskeletal: no symptoms reported Skin: no symptoms reported Psychiatric/Neurological: No Symptoms Reported Endocrine: No Symptoms Reported Hematologic/Lymphatic: No Symptoms Reported Past Zsajwca-Nratif-Bqnwdu Hx Patient Social History Alcohol Beverage of Choice: Beer Type Used: Cigars, Cigarettes 2nd Hand Smoke Exposure: No Recent Hopitalizations: Yes Immunizations Up To Date Tetanus Booster (TDap): Less than 5yrs PED Vaccines UTD: No Date of Pneumonia Vaccine: Jul 26, 2009 Date of Influenza Vaccine: Sep 26, 2013 Seasonal Allergies Seasonal Allergies: No Past Medical History Surgeries: Yes Amputation, Gallbladder, Hysterectomy Respiratory: Yes Asthma, COPD, Emphysema Currently Using CPAP: No Currently Using BIPAP: No Cardiac: No Neurological: No Stroke 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 Disorders: Yes 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 POLICE CAPTAIN PRECINCT History: Hysterectomy Sexually Transmitted Disease: No HIV/AIDS: No Genitourinary: Yes UTI-Chronic Gastrointestinal: Yes Pancreatitis, Hiatal Hernia Musculoskeletal: Yes Amputee, Osteoporosis Endocrine: No HEENT: No Cataract Loss of Vision: Denies Hearing Impairment: Denies Cancer: No Psychosocial: No Anxiety, Depression Integumentary: No Blood Disorders: No Adverse Reaction/Blood Tranf: No Family Medical History Alzheimer's disease 19 FATHER 19 MOTHER Asthma 19 FATHER Completed stroke 19 FATHER Deafness or hearing loss 19 FATHER Dementia 19 FATHER Diabetes mellitus 19 FATHER 19 MOTHER Headache disorder 19 FATHER Hypertension 19 FATHER 19 MOTHER Myocardial infarction 19 FATHER 19 MOTHER Respiratory disorder 19 FATHER No Family History of: Kidney disease Heart Disease, COPD, Diabetes, Hypertension, Stroke Physical Exam Vital Signs Vital Signs - First Documented 12/07/17 17:22 Temp 97.7 Pulse 70 Resp 18 B/P (MAP) 125/84 (98) Pulse Ox 99 Capillary Refill : General Appearance: WD/WN, no apparent distress HEENT: PERRL/EOMI, normal ENT inspection Neck: non-tender, full range of motion Respiratory: no respiratory distress, no accessory muscle use Cardiovascular: regular rate, rhythm Gastrointestinal: normal bowel sounds, non tender, soft; No abnormal bowel sounds Neurologic/Psychiatric: alert, normal mood/affect, oriented x 3 Skin: normal color, warm/dry Progress/Results/Core Measures Lab Results Laboratory Tests Test 12/07/17 17:14 12/07/17 17:50 Range/Units White Blood Count 10.0 4.3-11.0 10^3/uL Red Blood Count 3.62 L 4.35-5.85 10^6/uL Hemoglobin 10.8 L 11.5-16.0 G/DL Hematocrit 37 35-52 % Mean Corpuscular Volume 101 H 80-99 FL Mean Corpuscular Hemoglobin 30 25-34 PG Mean Corpuscular Hemoglobin Concent 30 L 32-36 G/DL Red Cell Distribution Width 16.7 H 10.0-14.5 % Platelet Count 222 130-400 10^3/uL Mean Platelet Volume 10.6 H 7.4-10.4 FL Neutrophils (%) (Auto) 77 H 42-75 % Lymphocytes (%) (Auto) 14 12-44 % Monocytes (%) (Auto) 8 0-12 % Eosinophils (%) (Auto) 1 0-10 % Basophils (%) (Auto) 1 0-10 % Neutrophils # (Auto) 7.7 1.8-7.8 X 10^3 Lymphocytes # (Auto) 1.3 1.0-4.0 X 10^3 Monocytes # (Auto) 0.8 0.0-1.0 X 10^3 Eosinophils # (Auto) 0.1 0.0-0.3 10^3/uL Basophils # (Auto) 0.1 0.0-0.1 10^3/uL Sodium Level 138 135-145 MMOL/L Potassium Level 4.6 3.6-5.0 MMOL/L Chloride Level 109 H 98-107 MMOL/L Carbon Dioxide Level 19 L 21-32 MMOL/L Anion Gap 10 5-14 MMOL/L Blood Urea Nitrogen 16 7-18 MG/DL Creatinine 1.13 0.60-1.30 MG/DL Estimat Glomerular Filtration Rate 51 BUN/Creatinine Ratio 14 Glucose Level 97 70-105 MG/DL Calcium Level 9.1 8.5-10.1 MG/DL Total Bilirubin 0.2 0.1-1.0 MG/DL Aspartate Amino Transf (AST/SGOT) 8 5-34 U/L Alanine Aminotransferase (ALT/SGPT) 7 0-55 U/L Alkaline Phosphatase 73 40-136 U/L Total Protein 6.9 6.4-8.2 GM/DL Albumin 3.6 3.2-4.5 GM/DL Urine Color YELLOW Urine Clarity CLEAR Urine pH 6 5-9 Urine Specific [place] 1.015 L 1.016-1.022 Urine Protein 1+ H NEGATIVE Urine Glucose (UA) NEGATIVE NEGATIVE Urine Ketones NEGATIVE NEGATIVE Urine Nitrite NEGATIVE NEGATIVE Urine Bilirubin NEGATIVE NEGATIVE Urine Urobilinogen NORMAL NORMAL MG/DL Urine Leukocyte Esterase NEGATIVE NEGATIVE Urine RBC (Auto) NEGATIVE NEGATIVE Urine RBC NONE /HPF Urine WBC 2-5 /HPF Urine Squamous Epithelial Cells 2-5 /HPF Urine Crystals NONE /LPF Urine Bacteria NEGATIVE /HPF Urine Casts NONE /LPF Urine Mucus NEGATIVE /LPF Urine Culture Indicated NO Urine Opiates Screen NEGATIVE NEGATIVE Urine Oxycodone Screen NEGATIVE NEGATIVE Urine Methadone Screen NEGATIVE NEGATIVE Urine Propoxyphene Screen NEGATIVE NEGATIVE Urine Barbiturates Screen NEGATIVE NEGATIVE Ur Tricyclic Antidepressants Screen NEGATIVE NEGATIVE Urine Phencyclidine Screen NEGATIVE NEGATIVE Urine Amphetamines Screen NEGATIVE NEGATIVE Urine Methamphetamines Screen NEGATIVE NEGATIVE Urine Benzodiazepines Screen NEGATIVE NEGATIVE Urine Cocaine Screen NEGATIVE NEGATIVE Urine Cannabinoids Screen NEGATIVE NEGATIVE My Orders Orders - JUAN C FRANCISCO APRN Cbc With Automated Diff (12/07/17 17:12) Comprehensive Metabolic Panel (12/07/17 17:12) Ua Culture If Indicated (12/07/17 17:12) Saline Lock/Iv-Start (12/07/17 17:12) Ns Iv 1000 Ml (Sodium Chloride 0.9%) (12/07/17 17:15) Prochlorperazine Injection (Compazine In (12/07/17 17:15) Drug Screen Stat (Urine) (12/07/17 17:57) Medications Given in ED Current Medications Medications Dose Ordered Sig/Ely Route Start Time Stop Time Status Last Admin Dose Admin Prochlorperazine Edisylate 10 mg ONCE ONCE IV 12/07/17 17:15 12/07/17 17:16 DC 12/07/17 17:53 10 MG Vital Signs/I&O 12/07/17 17:22 Temp 97.7 Pulse 70 Resp 18 B/P (MAP) 125/84 (98) Pulse Ox 99 Departure Impression Primary Impression: Acute abdominal pain Additional Impression: Nausea & vomiting Disposition: 01 HOME, SELF-CARE Condition: Stable Departure-Patient Inst. Decision time for Depature: 18:44 Referrals: NO,LOCAL PHYSICIAN (PCP) Primary Care Physician Patient Instructions: NO INSTRUCTIONS GIVEN Add. Discharge Instructions: 1. see your doctor within 48 hours 2. Return to ER for any worsening symptoms All discharge instructions reviewed with patient and/or family. Voiced understanding. Scripts Prochlorperazine Maleate (Compazine) 10 Mg Tablet 10 MG PO Q8H PRN for NAUSEA/VOMITING-1ST LINE, #10 TAB Prov: JUAN C FRANCISCO APRN 12/07/17 JUAN C FRANCISCO APRN Dec 07, 2017 17:15
[2017-12-07 17:23] LABS: BASOPHILS # (AUTO) 0.1 10^3/uL (0.0-0.1); BASOPHILS % (AUTO) 1 % (0-10); EOSINOPHILS # (AUTO) 0.1 10^3/uL (0.0-0.3); EOSINOPHILS % (AUTO) 1 % (0-10); HEMATOCRIT 37 % (35-52); HEMOGLOBIN 10.8 G/DL (11.5-16.0); LYMPHOCYTES # (AUTO) 1.3 X 10^3 (1.0-4.0); LYMPHOCYTES % (AUTO) 14 % (12-44); MEAN CORPUSCULAR HEMOGLOBIN 30 PG (25-34); MEAN CORPUSCULAR HGB CONC 30 G/DL (32-36); MEAN CORPUSCULAR VOLUME 101 FL (80-99); MEAN PLATELET VOLUME 10.6 FL (7.4-10.4); MONOCYTES # (AUTO) 0.8 X 10^3 (0.0-1.0); MONOCYTES % (AUTO) 8 % (0-12); NEUTROPHILS # (AUTO) 7.7 X 10^3 (1.8-7.8); NEUTROPHILS % (AUTO) 77 % (42-75); PLATELET COUNT 222 10^3/uL (130-400); RED BLOOD COUNT 3.62 10^6/uL (4.35-5.85); RED CELL DISTRIBUTION WIDTH 16.7 % (10.0-14.5)
[2017-12-07 17:43] LABS: ALBUMIN 3.6 GM/DL (3.2-4.5); BILIRUBIN,TOTAL 0.2 MG/DL (0.1-1.0); CALCIUM 9.1 MG/DL (8.5-10.1); CREATININE SERUM 1.13 MG/DL (0.60-1.30); POTASSIUM 4.6 MMOL/L (3.6-5.0); TOTAL PROTEIN 6.9 GM/DL (6.4-8.2)
[2017-12-07 18:00] LABS: BILIRUBIN,URINE NEGATIVE (NEGATIVE); CLARITY,URINE CLEAR; COLOR,URINE YELLOW; GLUCOSE, URINE (UA) NEGATIVE (NEGATIVE); KETONES,URINE NEGATIVE (NEGATIVE); LEUKOCYTE ESTERASE ,URINE NEGATIVE (NEGATIVE); NITRITE,URINE NEGATIVE (NEGATIVE); PH,URINE 6 (5-9); PROTEIN,URINE 1+ (NEGATIVE); UROBILINOGEN,URINE NORMAL (NORMAL)
[2017-12-07 18:06] LABS: BACTERIA,URINE NEGATIVE /HPF
[2017-12-07 18:14] LABS: AMPHETAMINE SCREEN, URINE NEGATIVE (NEGATIVE); BARBITURATE SCREEN URINE NEGATIVE (NEGATIVE); BENZODIAZEPINES SCREEN URINE NEGATIVE (NEGATIVE); CANNABINOID SCREEN, URINE NEGATIVE (NEGATIVE); COCAINE SCREEN URINE NEGATIVE (NEGATIVE); METHADONE STAT NEGATIVE (NEGATIVE); METHAMPHETAMINE SCREEN URINE S NEGATIVE (NEGATIVE); OPIATE SCREEN URINE NEGATIVE (NEGATIVE); OXYCODONE STAT NEGATIVE (NEGATIVE); PROPOXYPHENE STAT NEGATIVE (NEGATIVE); TRICYCLIC ANTIDEPRESSANTS SCRE NEGATIVE (NEGATIVE)
[2017-12-07] MEDS ORDERED: PROC-1 PO (18:46)
[2017-12-07 19:04] VITALS: BP 103/71
--- OUTSIDE RECORDS SUMMARY | 2017-12-08 10:05 | XMS REPORT | Clinical Summary ---
Author Author [facility] Organization [facility] Address Unknown Phone Unavailable Care Team Providers Care Med Asst Name Role Phone Mi Joseph RN Unavailable [...] in the Health Information Management department at [phone] for further assistance in locating additional records.[facility] Allergies Active Allergy Reactions Severity Noted [...]
== END 2017-12-07 19:04 | disposition home or self-care (01) ==
LOC: EDUNIT# 17:08 → ER 17:09
DX: R10.30 Lower abdominal pain, unspecified (principal); R11.2 Nausea with vomiting, unspecified; F41.9 Anxiety disorder, unspecified; F32.9 Major depressive disorder, single episode, unspecified; M81.0 Age-related osteoporosis without current pathological fracture; J43.9 Emphysema, unspecified; Z87.19 Personal history of other diseases of the digestive system; Z87.440 Personal history of urinary (tract) infections; Z90.710 Acquired absence of both cervix and uterus; Z86.73 Personal history of transient ischemic attack (TIA), and cerebral infarction without residual deficits; Z88.0 Allergy status to penicillin; Z88.1 Allergy status to other antibiotic agents; Z88.8 Allergy status to other drugs, medicaments and biological substances; Z88.6 Allergy status to analgesic agent; Z88.5 Allergy status to narcotic agent
CPT/HCPCS: 36415; 80053; 80306; 81000; 85025; 96361; 96374

== ENCOUNTER 2018-03-09 14:07 | Observation (INO) | payer MEDICAID ==
[~2018-03-09] VITALS: Ht 149.9 cm; Wt 38.6 kg
[2018-03-09] VITALS (12 sets, daily range): BP systolic 77–115; BP diastolic 48–70
[~2018-03-09 14:07] MED LIST changes: +PROC-1 PO
[2018-03-09] MEDS ORDERED: NALOXONE 2 MG/2 ML (NARCAN) SYR ONE (14:11)
[2018-03-09] MEDS ORDERED: ONDANSETRON 4 MG/2 ML (SDV) Z0FRAN ONE (14:17)
--- NOTE | 2018-03-09 14:23 | ED Neurological Problem ---
General Stated Complaint: WEAK,UNABLE TO URINATE, Source: patient, family Exam Limitations: clinical condition History of Present Illness Date Seen by Provider: Mar 09, 2018 Time Seen by Provider: 14:21 Initial Comments This 47-year-old female presents in an unresponsive state. The patient is well- known to the emergency department for multiple narcotic overdoses in the past. After the patient responded to IV Narcan the patient related that she had taken oxycodone. She denied associated fever, chills, headache, photophobia, stiff neck, chest pain or palpitations, productive cough or shortness of breath, nausea vomiting or diarrhea, or dysuria flank pain. Patient's ingestion was not with suicidal ideation. Allergies and Home Medications Allergies Coded Allergies: ofloxacin (Verified Allergy, Mild, 08/10/16) Penicillins (Verified Allergy, Unknown, Pt has received Ceftriaxone & Cefepime in the past w/o issue, 08/06/17) amoxicillin (Verified Allergy, Unknown, 08/10/16) clavulanic acid (Verified Allergy, Unknown, 08/10/16) promethazine (Verified Allergy, Unknown, 08/10/16) propoxyphene (Verified Allergy, Unknown, 08/10/16) ketorolac (Verified Adverse Reaction, Unknown, 11/08/17) tramadol (Verified Adverse Reaction, Unknown, 11/08/17) Home Medications Albuterol Sulfate 90 Mcg Aer.pow.ba, 2 PUFF IH Q6H PRN for SHORTNESS OF BREATH, (Reported) Budesonide/Formoterol Fumarate 10.2 Gm Hfa.aer.ad, 2 PUFF IH 1-2 TIMES PER DAY, (Reported) LAST FILLED 09/30/17 #1 INHALER Dicyclomine HCl 10 Mg Capsule, 10 MG PO QID PRN for STOMACH UPSET, (Reported) Gabapentin 600 Mg Tablet, 600 MG PO QID, (Reported) TAKES ALONG WITH 300MG CAPSULE FOR A TOTAL DOSE OF 900MG 4 TIMES DAILY Gabapentin 300 Mg Capsule, 300 MG PO QID, (Reported) TAKES ALONG WITH 600MG FOR A TOTAL DAILY DOSE OF 900MG 4 TIMES DAILY Ipratropium/Albuterol Sulfate 3 Ml Ampul.neb, 3 ML IH Q4H PRN for SHORTNESS OF BREATH, (Reported) Lipase/Protease/Amylase 1 Each Capsule.dr, 1 CAP PO TID, (Reported) Omeprazole 20 Mg Capsule.dr, 20 MG PO DAILY, (Reported) Ondansetron 8 Mg Tab.rapdis, 8 MG PO TID PRN for NAUSEA/VOMITING-1ST LINE, ( Reported) Prochlorperazine Maleate 10 Mg Tablet, 10 MG PO Q8H PRN for NAUSEA/VOMITING-1ST LINE Prescribed by: JUAN C FRANCISCO on 12/07/17 1846 Simethicone 80 Mg Tab.chew, 2-4 TAB PO PC PRN for INDIGESTION, (Reported) Sumatriptan Succinate 100 Mg Tablet, 100 MG PO UD PRN for MIGRAINE, (Reported) 1 TAB AT ONSET OF MIGRAINE, MAY REPEAT IN 2 HOURS. MAX 200MG/DAY Patient Home Medication List Home Medication List Reviewed: Yes Review of Systems Constitutional: see HPI; No chills Eyes: Denies Blurred Vision Ears, Nose, Mouth, Throat: denies ear pain Respiratory: No cough Cardiovascular: No chest pain, No palpitations Gastrointestinal: No abdominal pain; vomiting (after the Narcan the patient had an episode of vomiting. She did not aspirate.) Genitourinary: no symptoms reported : No Musculoskeletal: other (right AK amputation) Skin: No rash Psychiatric/Neurological: See HPI, Anxiety, Other (and drug abuse and multiple episodes of overdose) Endocrine: No Symptoms Reported Hematologic/Lymphatic: No Symptoms Reported Past Ijjhcqj-Scyumo-Uijqar Hx Past Med/Social Hx: Reviewed Nursing Past Med/Soc Hx Patient Social History Alcohol Beverage of Choice: Beer Type Used: Cigars, Cigarettes 2nd Hand Smoke Exposure: No Recent Foreign Travel: No Contact w/Someone Who Travel: No Recent Hopitalizations: Yes Immunizations Up To Date Tetanus Booster (TDap): Unknown PED Vaccines UTD: No Date of Pneumonia Vaccine: Jul 26, 2009 Date of Influenza Vaccine: Sep 26, 2013 Seasonal Allergies Seasonal Allergies: No Past Medical History Surgeries: Yes Amputation, Gallbladder, Hysterectomy Respiratory: Yes Asthma, COPD, Emphysema Currently Using CPAP: No Currently Using BIPAP: No Cardiac: No Neurological: No Stroke 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 Disorders: Yes 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 Sexually Transmitted Disease: No HIV/AIDS: No Genitourinary: Yes UTI-Chronic Gastrointestinal: Yes Pancreatitis, Hiatal Hernia Musculoskeletal: Yes Amputee, Osteoporosis Endocrine: No HEENT: No Cataract Loss of Vision: Denies Hearing Impairment: Denies Cancer: No Psychosocial: No Anxiety, Depression Integumentary: No Blood Disorders: No Adverse Reaction/Blood Tranf: No Family Medical History Alzheimer's disease 19 FATHER 19 MOTHER Asthma 19 FATHER Completed stroke 19 FATHER Deafness or hearing loss 19 FATHER Dementia 19 FATHER Diabetes mellitus 19 FATHER 19 MOTHER Headache disorder 19 FATHER Hypertension 19 FATHER 19 MOTHER Myocardial infarction 19 FATHER 19 MOTHER Respiratory disorder 19 FATHER No Family History of: Kidney disease Heart Disease, COPD, Diabetes, Hypertension, Stroke Physical Exam Vital Signs Vital Signs - First Documented 03/09/18 14:07 Temp 96.5 Pulse 112 Resp 0 B/P (MAP) 86/59 (68) Pulse Ox 66 O2 Delivery Room Air Capillary Refill : Height, Weight, BMI Height: 5'1.00" Weight: 75lbs. 5.0oz. 34.527328cd; 14.2 BMI Method:Stated General Appearance: cachetic HEENT: normal ENT inspection Neck: supple, normal inspection Respiratory: lungs clear Cardiovascular: regular rate, rhythm Gastrointestinal: non tender, soft Back: normal inspection Extremities: other (right AK amputation.) Neurologic/Psychiatric: no motor/sensory deficits, alert, normal mood/affect Crainal Nerves: normal hearing, normal speech, PERRL Motor/Sensory: no motor deficit, no sensory deficit, other (right AK amputation ) Skin: normal color, warm/dry Progress/Results/Core Measures Results/Orders Lab Results Laboratory Tests Test 03/09/18 14:10 03/09/18 14:22 Range/Units White Blood Count 13.3 H 4.3-11.0 10^3/uL Red Blood Count 3.80 L 4.35-5.85 10^6/uL Hemoglobin 11.9 11.5-16.0 G/DL Hematocrit 41 35-52 % Mean Corpuscular Volume 108 H 80-99 FL Mean Corpuscular Hemoglobin 31 25-34 PG Mean Corpuscular Hemoglobin Concent 29 L 32-36 G/DL Red Cell Distribution Width 17.9 H 10.0-14.5 % Platelet Count 213 130-400 10^3/uL Mean Platelet Volume 10.3 7.4-10.4 FL Neutrophils (%) (Auto) 82 H 42-75 % Lymphocytes (%) (Auto) 8 L 12-44 % Monocytes (%) (Auto) 10 0-12 % Eosinophils (%) (Auto) 0 0-10 % Basophils (%) (Auto) 0 0-10 % Neutrophils # (Auto) 10.8 H 1.8-7.8 X 10^3 Lymphocytes # (Auto) 1.0 1.0-4.0 X 10^3 Monocytes # (Auto) 1.3 H 0.0-1.0 X 10^3 Eosinophils # (Auto) 0.0 0.0-0.3 10^3/uL Basophils # (Auto) 0.0 0.0-0.1 10^3/uL Sodium Level 138 135-145 MMOL/L Potassium Level 5.1 H 3.6-5.0 MMOL/L Chloride Level 112 H 98-107 MMOL/L Carbon Dioxide Level 18 L 21-32 MMOL/L Anion Gap 8 5-14 MMOL/L Blood Urea Nitrogen 33 H 7-18 MG/DL Creatinine 2.30 H 0.60-1.30 MG/DL Estimat Glomerular Filtration Rate 23 BUN/Creatinine Ratio 14 Glucose Level 98 70-105 MG/DL Calcium Level 9.6 8.5-10.1 MG/DL Total Bilirubin 0.3 0.1-1.0 MG/DL Aspartate Amino Transf (AST/SGOT) 17 5-34 U/L Alanine Aminotransferase (ALT/SGPT) 9 0-55 U/L Alkaline Phosphatase 77 40-136 U/L Total Protein 7.2 6.4-8.2 GM/DL Albumin 4.2 3.2-4.5 GM/DL Salicylates Level < 5.0 L 5.0-20.0 MG/DL Acetaminophen Level < 10 L 10-30 UG/ML Serum Alcohol < 10 <10 MG/DL Urine Color YELLOW Urine Clarity CLEAR Urine pH 7 5-9 Urine Specific Serafina 1.010 L 1.016-1.022 Urine Protein 2+ H NEGATIVE Urine Glucose (UA) NEGATIVE NEGATIVE Urine Ketones NEGATIVE NEGATIVE Urine Nitrite NEGATIVE NEGATIVE Urine Bilirubin NEGATIVE NEGATIVE Urine Urobilinogen NORMAL NORMAL MG/DL Urine Leukocyte Esterase 2+ H NEGATIVE Urine RBC (Auto) 1+ H NEGATIVE Urine RBC NONE /HPF Urine WBC 10-25 H /HPF Urine Squamous Epithelial Cells RARE /HPF Urine Crystals NONE /LPF Urine Bacteria TRACE /HPF Urine Casts PRESENT /LPF Urine Granular Casts 5-10 H /LPF Urine Mucus NEGATIVE /LPF Urine Culture Indicated YES Urine Opiates Screen POSITIVE H NEGATIVE Urine Oxycodone Screen NEGATIVE NEGATIVE Urine Methadone Screen NEGATIVE NEGATIVE Urine Propoxyphene Screen NEGATIVE NEGATIVE Urine Barbiturates Screen NEGATIVE NEGATIVE Ur Tricyclic Antidepressants Screen NEGATIVE NEGATIVE Urine Phencyclidine Screen NEGATIVE NEGATIVE Urine Amphetamines Screen NEGATIVE NEGATIVE Urine Methamphetamines Screen NEGATIVE NEGATIVE Urine Benzodiazepines Screen NEGATIVE NEGATIVE Urine Cocaine Screen NEGATIVE NEGATIVE Urine Cannabinoids Screen POSITIVE H NEGATIVE My Orders Orders - MAURICE YEN MD Ondansetron Injection (Zofran Injectio (03/09/18 14:17) Ua Culture If Indicated (03/09/18 14:28) Cbc With Automated Diff (03/09/18 14:28) Comprehensive Metabolic Panel (03/09/18 14:28) Alcohol (03/09/18 14:28) Drug Screen Stat (Urine) (03/09/18 14:28) Acetaminophen (03/09/18 14:28) Salicylate (03/09/18 14:28) Ekg Tracing (03/09/18 14:28) Saline Lock/Iv-Start (03/09/18 14:28) Monitor-Rhythm Ecg Trace Only (03/09/18 14:28) Urine Culture (03/09/18 14:22) Vital Signs/I&O 03/09/18 14:07 Temp 96.5 Pulse 112 Resp 0 B/P (MAP) 86/59 (68) Pulse Ox 66 O2 Delivery Room Air Progress Progress Note : Time: 14:26 Progress Note Patient responded to IV Narcan. She became awake and alert and was able offer an appropriate medical history. admitted the patient. Were sending the patient to the ICU because of the acute overdose. Departure Communication (Admissions) Time/Spoke to Admitting Phy: 15:02 Dr. Issa. Impression Primary Impression: Drug overdose Qualified Codes: T50.901A - Poisoning by unspecified drugs, medicaments and biological substances, accidental (unintentional), initial encounter Disposition: ADMITTED INPATIENT Condition: Improved Admissions Decision to Admit Reason: Admit from ER (General) Decision to Admit/Date: Mar 09, 2018 Time/Decision to Admit Time: 15:09 Transfer Time Spoke to Accepting Phy: 15:09 Departure-Patient Inst. Referrals: NO,LOCAL PHYSICIAN (PCP/Family) Primary Care Physician MAURICE YEN MD Mar 09, 2018 14:23
[2018-03-09 14:35] LABS: BILIRUBIN,URINE NEGATIVE (NEGATIVE); CLARITY,URINE CLEAR; COLOR,URINE YELLOW; GLUCOSE, URINE (UA) NEGATIVE (NEGATIVE); KETONES,URINE NEGATIVE (NEGATIVE); LEUKOCYTE ESTERASE ,URINE 2+ (NEGATIVE); NITRITE,URINE NEGATIVE (NEGATIVE); PH,URINE 7 (5-9); PROTEIN,URINE 2+ (NEGATIVE); UROBILINOGEN,URINE NORMAL (NORMAL)
[2018-03-09 14:36] LABS: BASOPHILS % (AUTO) 0 % (0-10); EOSINOPHILS % (AUTO) 0 % (0-10); HEMATOCRIT 41 % (35-52); HEMOGLOBIN 11.9 G/DL (11.5-16.0); LYMPHOCYTES % (AUTO) 8 % (12-44); MEAN CORPUSCULAR HEMOGLOBIN 31 PG (25-34); MEAN CORPUSCULAR HGB CONC 29 G/DL (32-36); MEAN CORPUSCULAR VOLUME 108 FL (80-99); MEAN PLATELET VOLUME 10.3 FL (7.4-10.4); MONOCYTES # (AUTO) 1.3 X 10^3 (0.0-1.0); MONOCYTES % (AUTO) 10 % (0-12); NEUTROPHILS # (AUTO) 10.8 X 10^3 (1.8-7.8); NEUTROPHILS % (AUTO) 82 % (42-75); PLATELET COUNT 213 10^3/uL (130-400); RED CELL DISTRIBUTION WIDTH 17.9 % (10.0-14.5); WHITE BLOOD COUNT 13.3 10^3/uL (4.3-11.0)
[2018-03-09 14:46] LABS: BACTERIA,URINE TRACE /HPF; SQUAMOUS EPITHELIAL CELL,UR RARE /HPF
[2018-03-09 14:48] LABS: AMPHETAMINE SCREEN, URINE NEGATIVE (NEGATIVE); BARBITURATE SCREEN URINE NEGATIVE (NEGATIVE); BENZODIAZEPINES SCREEN URINE NEGATIVE (NEGATIVE); CANNABINOID SCREEN, URINE POSITIVE (NEGATIVE); COCAINE SCREEN URINE NEGATIVE (NEGATIVE); METHADONE STAT NEGATIVE (NEGATIVE); METHAMPHETAMINE SCREEN URINE S NEGATIVE (NEGATIVE); OPIATE SCREEN URINE POSITIVE (NEGATIVE); OXYCODONE STAT NEGATIVE (NEGATIVE); PROPOXYPHENE STAT NEGATIVE (NEGATIVE); TRICYCLIC ANTIDEPRESSANTS SCRE NEGATIVE (NEGATIVE)
[2018-03-09 14:51] LABS: ALANINE AMINOTRANSFERASE 9 U/L (0-55); ALBUMIN 4.2 GM/DL (3.2-4.5); ALKALINE PHOSPHATASE 77 U/L (40-136); BILIRUBIN,TOTAL 0.3 MG/DL (0.1-1.0); BUN/CREATININE RATIO 14; CALCIUM 9.6 MG/DL (8.5-10.1); CARBON DIOXIDE 18 MMOL/L (21-32); CHLORIDE 112 MMOL/L (98-107); GFR ESTIMATED 23; GLUCOSE 98 MG/DL (70-105); POTASSIUM 5.1 MMOL/L (3.6-5.0); SALICYLATE < 5.0 MG/DL (5.0-20.0); SODIUM 138 MMOL/L (135-145); TOTAL PROTEIN 7.2 GM/DL (6.4-8.2)
[2018-03-09 14:53] LABS: ACETAMINOPHEN < 10 UG/ML (10-30)
[2018-03-09] MEDS ORDERED: NALOXONE 2 MG/2 ML (NARCAN) SYR IV ONE ×2 (15:15→16:45)
[2018-03-09] MEDS ORDERED: NS IV 1000 ML 1,000 ML IV SCH ×2 (15:15)
--- NOTE | 2018-03-09 15:43 | Diagnostic Imaging Report ---
INDICATION: Unresponsive. TIME OF EXAM: 3:13 PM Correlation is made with prior chest radiograph from 11/08/2017. FINDINGS: The heart is enlarged. The lungs are clear. No infiltrate or failure is detected. No effusion or pneumothorax is seen. IMPRESSION: Mild cardiomegaly. No acute feature is detected. Dictated by: Dictated on workstation # [id number]
--- NOTE | 2018-03-09 16:54 | History & Physicial (CHS) ---
HPI History of Present Illness: 47-year-old female is brought to [facility] emergency department after being unresponsive. Patient is well-known to the emergency room and has been admitted on multiple occasions for drug overdose. She did receive IV Narcan and responded well. She was coherent and answered questions appropriately, according to the emergency room physician. She does admit to overdosing on oxycodone. She has no suicidal ideation. Source: RN/MD Exam Limitations: clinical condition Date seen by provider: Mar 09, 2018 Time Seen by Provider: 17:00 Attending Physician Felipe Waite MD PCP No,Local Physician Consult Date of Admission Mar 09, 2018 at 15:00 Home Medications Home Medications Reviewed patient Home Medication Reconciliation performed by pharmacy medication reconciliations timber management technician and/or nursing. Patients Allergies have been reviewed. Allergies Coded Allergies: ofloxacin (Verified Allergy, Mild, 08/10/16) Penicillins (Verified Allergy, Unknown, Pt has received Ceftriaxone & Cefepime in the past w/o issue, 08/06/17) amoxicillin (Verified Allergy, Unknown, 08/10/16) clavulanic acid (Verified Allergy, Unknown, 08/10/16) promethazine (Verified Allergy, Unknown, 08/10/16) propoxyphene (Verified Allergy, Unknown, 08/10/16) ketorolac (Verified Adverse Reaction, Unknown, 11/08/17) tramadol (Verified Adverse Reaction, Unknown, 11/08/17) SND-Zinzho-Fvunnl Hx Patient Social History Alcohol Use: Denies Use Recreational Drug Use: Yes Drug of Choice: OXYCODONE Smoking Status: Current Everyday Smoker Type Used: Cigars, Cigarettes 2nd Hand Smoke Exposure: No Recent Foreign Travel: No Contact w/other who traveled: No Recent Hopitalizations: Yes Recent Infectious Disease Expo: No Immunizations Up To Date Tetanus Booster (TDap): Unknown Date of Pneumonia Vaccine: Jul 26, 2009 Date of Influenza Vaccine: Sep 26, 2013 Past Medical History Past Medical History 1. Chronic Alcoholism 2. Chronic Narcotic abuse with multiple admissions for overdoses 3. Tobaccoism 4. Multiple hospital admissions for overdoses of alcohol and narcotics 5. 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 History of chronic pancreatitis 7. Anxiety and Depression with history of admission for suicide attempt 8. Chronic Obstructive Pulmonary Disease- supposed to wear O2 however is non compliant 9. THC use 10. History of aspiration pneumonia secondary to overdose and ARDS 11. 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 12. Migraines 13. Osteoporosis 14. History of gastric ulcer 15. Osteoarthritis 16. Anxiety /Bipolar Disorder 17. Bilateral Carpal Tunnel 18. History of involuntary committal to inpatient psychiatric facility Past Surgical History 1. Cholecystectomy 1991 2. JAMEY BSO- for gangenous uterus 3. Lt. TKA 4. Lt. Leg fracture around prosthesis resulting in poor healing fracture with Lt. AKA. 5. Hiatal Hernia Repair 6. Abdominal Hernia repair with mesh 7. Teeth extraction 8. Revision of Lt. AKA stump Dr. Mario Alberto Hodge 12-15-14 Family Medical History Significant Family History: Heart Disease, COPD, Diabetes, Hypertension, Stroke Family History: Alzheimer's disease 19 FATHER 19 MOTHER Asthma 19 FATHER Completed stroke 19 FATHER Deafness or hearing loss 19 FATHER Dementia 19 FATHER Diabetes mellitus 19 FATHER 19 MOTHER Headache disorder 19 FATHER Hypertension 19 FATHER 19 MOTHER Myocardial infarction 19 FATHER 19 MOTHER Respiratory disorder 19 FATHER No Family History of: Kidney disease Review of Systems (CHC) Constitutional: see HPI Reviewed Test Results Reviewed Test Results Lab Laboratory Tests Test 03/09/18 14:10 03/09/18 14:22 Range/Units White Blood Count 13.3 H 4.3-11.0 10^3/uL Red Blood Count 3.80 L 4.35-5.85 10^6/uL Hemoglobin 11.9 11.5-16.0 G/DL Hematocrit 41 35-52 % Mean Corpuscular Volume 108 H 80-99 FL Mean Corpuscular Hemoglobin 31 25-34 PG Mean Corpuscular Hemoglobin Concent 29 L 32-36 G/DL Red Cell Distribution Width 17.9 H 10.0-14.5 % Platelet Count 213 130-400 10^3/uL Mean Platelet Volume 10.3 7.4-10.4 FL Neutrophils (%) (Auto) 82 H 42-75 % Lymphocytes (%) (Auto) 8 L 12-44 % Monocytes (%) (Auto) 10 0-12 % Eosinophils (%) (Auto) 0 0-10 % Basophils (%) (Auto) 0 0-10 % Neutrophils # (Auto) 10.8 H 1.8-7.8 X 10^3 Lymphocytes # (Auto) 1.0 1.0-4.0 X 10^3 Monocytes # (Auto) 1.3 H 0.0-1.0 X 10^3 Eosinophils # (Auto) 0.0 0.0-0.3 10^3/uL Basophils # (Auto) 0.0 0.0-0.1 10^3/uL Sodium Level 138 135-145 MMOL/L Potassium Level 5.1 H 3.6-5.0 MMOL/L Chloride Level 112 H 98-107 MMOL/L Carbon Dioxide Level 18 L 21-32 MMOL/L Anion Gap 8 5-14 MMOL/L Blood Urea Nitrogen 33 H 7-18 MG/DL Creatinine 2.30 H 0.60-1.30 MG/DL Estimat Glomerular Filtration Rate 23 BUN/Creatinine Ratio 14 Glucose Level 98 70-105 MG/DL Calcium Level 9.6 8.5-10.1 MG/DL Total Bilirubin 0.3 0.1-1.0 MG/DL Aspartate Amino Transf (AST/SGOT) 17 5-34 U/L Alanine Aminotransferase (ALT/SGPT) 9 0-55 U/L Alkaline Phosphatase 77 40-136 U/L Total Protein 7.2 6.4-8.2 GM/DL Albumin 4.2 3.2-4.5 GM/DL Salicylates Level < 5.0 L 5.0-20.0 MG/DL Acetaminophen Level < 10 L 10-30 UG/ML Serum Alcohol < 10 <10 MG/DL Urine Color YELLOW Urine Clarity CLEAR Urine pH 7 5-9 Urine Specific [place] 1.010 L 1.016-1.022 Urine Protein 2+ H NEGATIVE Urine Glucose (UA) NEGATIVE NEGATIVE Urine Ketones NEGATIVE NEGATIVE Urine Nitrite NEGATIVE NEGATIVE Urine Bilirubin NEGATIVE NEGATIVE Urine Urobilinogen NORMAL NORMAL MG/DL Urine Leukocyte Esterase 2+ H NEGATIVE Urine RBC (Auto) 1+ H NEGATIVE Urine RBC NONE /HPF Urine WBC 10-25 H /HPF Urine Squamous Epithelial Cells RARE /HPF Urine Crystals NONE /LPF Urine Bacteria TRACE /HPF Urine Casts PRESENT /LPF Urine Granular Casts 5-10 H /LPF Urine Mucus NEGATIVE /LPF Urine Culture Indicated YES Urine Opiates Screen POSITIVE H NEGATIVE Urine Oxycodone Screen NEGATIVE NEGATIVE Urine Methadone Screen NEGATIVE NEGATIVE Urine Propoxyphene Screen NEGATIVE NEGATIVE Urine Barbiturates Screen NEGATIVE NEGATIVE Ur Tricyclic Antidepressants Screen NEGATIVE NEGATIVE Urine Phencyclidine Screen NEGATIVE NEGATIVE Urine Amphetamines Screen NEGATIVE NEGATIVE Urine Methamphetamines Screen NEGATIVE NEGATIVE Urine Benzodiazepines Screen NEGATIVE NEGATIVE Urine Cocaine Screen NEGATIVE NEGATIVE Urine Cannabinoids Screen POSITIVE H NEGATIVE Radiology NAME: SOPHIE CORNELIUS MED REC#: [id number] PT STATUS: ADM Adrian : 1970 PHYSICIAN: MAURICE YEN MD ADMIT DATE: 03/09/18/ICU Signed Date of Exam: 03/09/18 CHEST 1 VIEW, AP/PA ONLY INDICATION: Unresponsive. TIME OF EXAM: 3:13 PM Correlation is made with prior chest radiograph from 11/08/2017. FINDINGS: The heart is enlarged. The lungs are clear. No infiltrate or failure is detected. No effusion or pneumothorax is seen. IMPRESSION: Mild cardiomegaly. No acute feature is detected. Dictated by: Dictated on workstation # [id number] Dict: 03/09/18 1529 Trans: 03/09/18 1543 Interpreted by: CARMEN SOTELO MD Electronically signed by: CARMEN SOTELO MD 03/09/18 1543 Physical Exam-([facility] Physical Exam Vital Signs Capillary Refill : Less Than 3 Seconds General Appearance: no apparent distress (but difficult to arouse at the time of my evaluation.) Respiratory: lungs clear Cardiovascular: regular rate, rhythm Gastrointestinal: soft Rectal: deferred Extremities: no pedal edema Neurologic/Psychiatric: other (she would respond appropriately but fall back asleep.) Skin: normal color, warm/dry Assessment/Plan Assessment/Plan Admission Dx 1. Drug overdose oxycodone Admission Status: Observation Reason for Inpatient Admission: Further neurological monitoring as well as cardiovascular status FELIPE WAITE MD Mar 09, 2018 16:54
[2018-03-09] MEDS ORDERED: FLUT16SP22 NS (16:56)
[2018-03-09] MEDS ORDERED: ONDA8TAB9 SL (16:56)
[2018-03-09] MEDS ORDERED: BUDE10.22 IH (16:56)
[2018-03-09] MEDS ORDERED: CETI10TA17 PO (16:56)
[2018-03-09] MEDS: NS IV 1000 ML 1,000 ML IV SCH ×2 (17:00→22:16)
[2018-03-09] MEDS ORDERED: RANI150T90 PO (17:00)
[2018-03-09] MEDS ORDERED: RT-ALBUINH IH (17:00)
[2018-03-09] MEDS ORDERED: LIPA1CAP2 PO (17:00)
[2018-03-09] MEDS: NALOXONE 2 MG/2 ML (NARCAN) SYR IV PRN ×2 (18:34→22:06)
[2018-03-10] VITALS (15 sets, daily range): BP systolic 82–115; BP diastolic 51–77
[2018-03-10] MEDS: NALOXONE 2 MG/2 ML (NARCAN) SYR IV PRN (01:37)
[2018-03-10 03:26] LABS: BASOPHILS # (AUTO) 0.1 10^3/uL (0.0-0.1); BASOPHILS % (AUTO) 1 % (0-10); EOSINOPHILS # (AUTO) 0.1 10^3/uL (0.0-0.3); EOSINOPHILS % (AUTO) 1 % (0-10); HEMATOCRIT 37 % (35-52); LYMPHOCYTES # (AUTO) 1.1 X 10^3 (1.0-4.0); LYMPHOCYTES % (AUTO) 12 % (12-44); MEAN CORPUSCULAR HEMOGLOBIN 32 PG (25-34); MEAN CORPUSCULAR HGB CONC 30 G/DL (32-36); MEAN CORPUSCULAR VOLUME 107 FL (80-99); MEAN PLATELET VOLUME 10.5 FL (7.4-10.4); MONOCYTES # (AUTO) 1.3 X 10^3 (0.0-1.0); MONOCYTES % (AUTO) 13 % (0-12); NEUTROPHILS # (AUTO) 7.1 X 10^3 (1.8-7.8); NEUTROPHILS % (AUTO) 73 % (42-75); PLATELET COUNT 162 10^3/uL (130-400); RED BLOOD COUNT 3.48 10^6/uL (4.35-5.85); RED CELL DISTRIBUTION WIDTH 17.4 % (10.0-14.5); WHITE BLOOD COUNT 9.6 10^3/uL (4.3-11.0)
[2018-03-10 03:39] LABS: CALCIUM 8.7 MG/DL (8.5-10.1); CREATININE SERUM 1.57 MG/DL (0.60-1.30); PHOSPHORUS 3.3 MG/DL (2.3-4.7); POTASSIUM 4.2 MMOL/L (3.6-5.0)
[2018-03-10] MEDS ORDERED: KCL 20 MEQ TAB (K-DUR) PO SCH (06:00)
[2018-03-10] MEDS ORDERED: MAGNESIUM 1 GM/100 ML IVPB 100 ML IV SCH (06:00)
[2018-03-10] MEDS ORDERED: POTASSIUM CL 10MEQ/50ML IVPB 50 ML IV SCH (06:00)
--- NOTE | 2018-03-10 07:49 | Diagnostic Imaging Report ---
INDICATION: Dyspnea. COMPARISON: 03/09. FINDINGS: Symmetrical hyperexpansion of the lungs with stable cardiomegaly. Vascular congestion has progressed. No effusion or pneumothorax. IMPRESSION: Stable cardiomegaly with increased vascular congestion, background chronic COPD superimposed with no acute pleural abnormality. Dictated by: Dictated on workstation # [id number]
[2018-03-10] MEDS ORDERED: RANI150T11 PO (08:36)
[2018-03-10] MEDS ORDERED: ONDA8TAB13 PO (08:36)
--- NOTE | 2018-03-10 11:20 | Discharge Summary ---
Diagnosis/Chief Complaint Date of Admission Mar 09, 2018 at 15:00 Date of Discharge 03/10/2018 Admission Diagnosis Admission Diagnosis Accidental drug overdose Altered Mental status Chronic Respiratory failure Oxygen dependent Peripheral Vascular Disease Tobacco Use Discharge Diagnosis See Above Chief Complaint/HPI Chief Complaint/HPI 47-year-old female is brought to via [facility] emergency department after being unresponsive. Patient is well-known to the emergency room and has been admitted on multiple occasions for drug overdose. She did receive IV Narcan and responded well. She was coherent and answered questions appropriately. She does admit to overdosing on oxycodone. She has no suicidal ideation. Discharge Summary-Simple/Stand Consultations Discharge Physical Examination Allergies: Coded Allergies: ofloxacin (Verified Allergy, Mild, 08/10/16) Penicillins (Verified Allergy, Unknown, Pt has received Ceftriaxone & Cefepime in the past w/o issue, 08/06/17) amoxicillin (Verified Allergy, Unknown, 08/10/16) clavulanic acid (Verified Allergy, Unknown, 08/10/16) promethazine (Verified Allergy, Unknown, 08/10/16) propoxyphene (Verified Allergy, Unknown, 08/10/16) ketorolac (Verified Adverse Reaction, Unknown, 11/08/17) tramadol (Verified Adverse Reaction, Unknown, 11/08/17) Vitals & I&Os Vital Sign - Last 12Hours Date Time Temp Pulse Resp B/P (MAP) Pulse Ox O2 Delivery O2 Flow Rate FiO2 03/10/18 11:00 86 20 92/75 (81) 97 Nasal Cannula 4.00 03/10/18 08:09 97.6 Intake and Output 03/10/18 00:00 Intake Total 1000 ml Output Total 200 ml Balance 800 ml General Appearance: Alert, Oriented X3, Cooperative, No Acute Distress Respiratory: Normal Air Movement, Other (basilar wheezing with expiration, normal work of breathing) Cardiovascular: Regular Rate, No Murmurs Abdominal: Normal Bowel Sounds, Soft, No Tenderness, No Hepatosplenomegaly, No Masses Extremities: Other (Multiple amputations) Skin: No Rashes Neuro: Normal Speech, Cranial Nerves 3-12 NL Psych/Mental Status: Mental Status NL, Mood NL Hospital Course See final discharge diagnosis. Radiology Reviewed NAME: SOPHIE CORNELIUS MED REC#: [id number] PT STATUS: ADM Adrian : 1970 PHYSICIAN: MAURICE YEN MD ADMIT DATE: 03/09/18/ICU Signed Date of Exam: 03/09/18 CHEST 1 VIEW, AP/PA ONLY INDICATION: Unresponsive. TIME OF EXAM: 3:13 PM Correlation is made with prior chest radiograph from 11/08/2017. FINDINGS: The heart is enlarged. The lungs are clear. No infiltrate or failure is detected. No effusion or pneumothorax is seen. IMPRESSION: Mild cardiomegaly. No acute feature is detected. Dictated by: Dictated on workstation # [id number] Dict: 03/09/18 1529 Trans: 03/09/18 1543 Interpreted by: CARMEN SOTEOL MD Electronically signed by: CARMEN SOTELO MD 03/09/18 1543 Discussion & Recommendations 47 yo F that presented with depressed respiratory status that improved with Narcan Accidental drug overdose: Patient admits to taking oxycodone that she was prescribed but had left over. Denies any thoughts of wanting to hurt herself. States that she was just having more pain then her normal and wanted to get some sleep. Patient is at her baseline this AM and asking to go home. Altered Mental status: See Above Chronic Respiratory failure: Able to titrate down to her baseline oxygen. Continues to smoke. Discussed the importance of cessation. Oxygen dependent Peripheral Vascular Disease: s/p multiple amputations Tobacco Use Discharge Instructions to patient/family Please see electronic discharge instructions given to patient. Discharge Medications Reviewed and agree with Discharge Medication list on patient's Discharge Instruction sheet Clinical Quality Measures DVT/VTE Risk/Contraindication: Risk Factor Score Per Nursin RFS Level Per Nursing on Admit: 2=Moderate Copy Copies To 1: DEONNA MORGAN MD, HOLLY R MD Mar 10, 2018 11:20
--- NOTE | 2018-03-10 11:29 | Discharge Instructions ---
Discharge Inst-[facility] Discharge Medications New, Converted or Re-Newed RX: Other (No new meds) Continued Medications: Albuterol Sulfate (Proair Hfa) 1 Puff Puff 2 PUFF IH Q4H PRN for SHORTNESS OF BREATH, PUFF 1 PUFF = 90 MCG Budesonide/Formoterol Fumarate (Symbicort 80-4.5 Mcg Inhaler) 10.2 Gm Hfa.aer.ad 2 PUFF IH BID, INHALER Cetirizine HCl (Cetirizine HCl) 10 Mg Tablet 10 MG PO DAILY, TAB Dicyclomine HCl (Dicyclomine HCl) 10 Mg Capsule 10-20 MG PO QID PRN for CRAMPS, CAP Fluticasone Propionate (Fluticasone Propionate) 16 Gm Dixon.susp 2 SPRAYS NS DAILY, SPRAY Gabapentin (Gabapentin) 300 Mg Capsule 900 MG PO QID, CAP TAKES 3 (300MG) CAPUSLES Lipase/Protease/Amylase (Creon Dr 12,000 Units Capsule) 1 Each Capsule.dr 2 CAP PO TIDWM, CAP Ondansetron (Ondansetron Odt) 8 Mg Tab.rapdis 8 MG PO Q6H PRN for NAUSEA/VOMITING-1ST LINE, TAB Ranitidine HCl (Ranitidine HCl) 150 Mg Tablet 150 MG PO BID, TAB Patient Instructions Goal/Follow Up Appt: Has appt with Larissa on 03/13 @ 120pm Patient Instructions: - Discussed the importance of smoking cessation - Do not take medications that you have left over Return to The Hospital For: - Shortness of breath - Chest pain - Unable to tolerate medications Activity & Diet Discharge Diet: No Restrictions Activity as Tolerated: Yes Copy Copies To 1: DEONNA MORGAN MD, HOLLY R MD Mar 10, 2018 11:29
== END 2018-03-10 11:25 | disposition home or self-care (01) ==
LOC: EDUNIT# 14:07 → ER 14:11 → ICU 15:00 → UNDOADMOB 15:00 → ICU 16:15 → UNDODISOB 03-10 14:45
PROVIDERS: ADMIT Family Medicine; ATTEND Family Medicine
DX: T40.2X1A Poisoning by other opioids, accidental (unintentional), initial encounter (principal); G54.6 Phantom limb syndrome with pain; J96.10 Chronic respiratory failure, unspecified whether with hypoxia or hypercapnia; J43.9 Emphysema, unspecified; J45.909 Unspecified asthma, uncomplicated; F17.210 Nicotine dependence, cigarettes, uncomplicated; R82.99 Other abnormal findings in urine; F41.9 Anxiety disorder, unspecified; F32.9 Major depressive disorder, single episode, unspecified; I73.9 Peripheral vascular disease, unspecified; M81.0 Age-related osteoporosis without current pathological fracture; Z89.611 Acquired absence of right leg above knee; Z99.81 Dependence on supplemental oxygen; Z79.891 Long term (current) use of opiate analgesic
CPT/HCPCS: 36415; 51701; 71045; 80048; 80053; 80306; 80320; 80329; 81000; 83735; 84100; 85025; 87081; 87088; 93005; 93041; 96361; 96374; 96375; G0378

== ENCOUNTER 2018-08-16 21:21 | Emergency (ER) | payer MEDICAID ==
[~2018-08-16] VITALS: Ht 154.9 cm; Wt 39.0 kg
[~2018-08-16 21:21] MED LIST changes: +BUDE10.22 IH; +FLUT16SP22 NS; +LIPA1CAP2 PO; +NITR-65 PO; +ONDA8TAB9 SL; +RANI150T90 PO
[2018-08-16] MEDS ORDERED: fentaNYL INJECTION 100 MCG/2 ML AMP IVP STA (21:26)
[2018-08-16] MEDS ORDERED: NS IV 1000 ML 1,000 ML IV ONE (21:26)
--- OUTSIDE RECORDS SUMMARY | 2018-08-16 21:29 | XMS REPORT | Clinical Summary ---
Author Author [facility] Organization [facility] Address Unknown Phone Unavailable Care Team Providers Care Icing Maker Name Role Phone Mi Joseph RN Unavailable [...] in the Health Information Management department at [phone] for further assistance in locating additional records.[facility] Allergies Comments Active Allergy Reactions Severity Noted Date Allergy recorded in SMS: KETOROLAC Ketorolac 01/25/2006 Allergy recorded in SMS: FLOXIN Ofloxacin 01/25/2006 Allergy recorded in SMS: PCN Penicillins 01/25/2006 Allergy recorded in SMS: Phenergan Promethazine 01/25/2006 Allergy recorded in SMS: DARVOCET Propoxyphene 01/25/2006 N-Acetaminophen Tramadol RASH 03/19/2010 Medications End Date Status Medication Sig Dispensed Refills Start Date Active gabapentin (NEURONTIN) Take 900 mg 0 300 mg capsule by mouth three times daily. Active ranitidine(+) (ZANTAC) Take 150 mg 0 150 mg tablet by mouth twice daily. Active docusate (COLACE) 100 mg Take 1 Cap by 60 Cap 0 capsule mouth twice 5 daily as needed for Constipation. Active HYDROcodone/acetaminophen Take 1-2 Tabs 100 Tab 0 (NORCO; VICODIN) 5-325 mg by mouth 5 tablet every 8 hours as needed for Pain. Max 8 tabs/day (must last until 01/18/15) Active pregabalin (LYRICA) 25 mg Take 1 Cap by 270 Cap 3 capsule mouth three 5 times daily. Active Problems Problem Noted Date Postop check 12/24/2014 Social History Date Tobacco Use Types Packs/Day Years Used Current Every Day Smoker Cigarettes 2 31 Smokeless Tobacco: Never Used Tobacco Cessation: Ready to Quit: No; Counseling Given: Yes Alcohol Use Drinks/Week oz/Week Comments No Sex Assigned at Date Recorded Not on file Industry Job Start Date Occupation Not on file Not on file Not on file Travel End Travel History Travel Start No recent travel history available. Last Filed Vital Signs Time Taken Vital Sign Reading 01/25/2015 2:11 PM CDT Blood Pressure 145/94 01/25/2015 2:11 PM CDT Pulse 76 01/04/2015 1:17 PM CDT Temperature 36.6 C (97.9 F) - Respiratory Rate - 12/10/2014 6:00 PM CDT Oxygen Saturation 95% - Inhaled Oxygen - Concentration 01/04/2015 1:17 PM CDT Weight 46.3 kg (102 lb) 01/04/2015 1:17 PM CDT Height 154.9 cm (5' 1") 01/04/2015 1:17 PM CDT Body Mass Index 19.27 Plan of Treatment Health Maintenance Due Date Last Done Comments PHYSICAL (COMPREHENSIVE) 1975 EXAM HIV SCREENING 1983 DTAP/TDAP VACCINES (1 - 1986 Tdap) CERVICAL CANCER SCREENING 1998 BREAST CANCER SCREENING 2008 INFLUENZA VACCINE 03/26/2018 COLORECTAL CANCER 2018 SCREENING SHINGLES RECOMBINANT 2018 VACCINE (1 of 2) Results Not on filefrom Last 3 Months Insurance Payer Benefit Subscriber ID Type Phone Address Plan / Group [employer] [place] [employer] xxxxxxxxxxx Medicaid (Home) [place] [address] Advance Directives Patient has advance care planning documents, and code status on file. For more information, please contact: [facility] [address] [place] [address] Date Inactivated Comments Code Status Date Activated 12/10/2014 11:44 PM Full Code 12/10/2014 6:01 PM Provider has discussed Code Status No, discussion not w/Patient or Family? necessary based on Dx
[2018-08-16] MEDS ORDERED: ONDANSETRON 4 MG/2 ML (SDV) Z0FRAN IVP ONE (21:30)
--- OUTSIDE RECORDS SUMMARY | 2018-08-16 21:30 | XMS REPORT ---
Author Author DEONNA MORGAN Organization [facility] Address [address] [place] [address] Care Team Providers Care Can Doffer Name Role Phone DEONNA MORGAN Unavailable PROBLEMS Type Condition ICD9-CM Code STJ81-XD Code Onset Dates Condition Status SNOMED Code Problem Chronic obstructive pulmonary disease, unspecified COPD type J44.9 Active 64789850 Problem Chronic pancreatitis, unspecified pancreatitis type K86.1 Active 632204896 Problem Phantom limb pain G54.7 Active [id number] ALLERGIES No Information ENCOUNTERS Encounter Location Date Diagnosis [place] [address] [address] Mar, [place] [address] [place] [id number] [place] [address] Feb, Chronic obstructive pulmonary disease, unspecified COPD type J44.9 [place] [address] [address] Jan, [place] [address] [place] [id number] [place] [address]- 0473 Jan, [place] [address] [place] [id number] [place] [address]98- 5816 December, [place] [address] [place] [id number] [place] [address]- 0797 Nov, [place] [address] [address] Nov, Chronic pancreatitis, unspecified pancreatitis type K86.1 ; Chronic obstructive pulmonary disease, unspecified COPD type J44.9 ; Phantom limb pain G54.7 and Allergic state, initial encounter T78.40XA [place] [address] [address] Sep, [facility] [address] [address] Jul, [facility] [address] [place] [id number] [place] [address] [id number]- 6780 Jul, [facility] [address] [place] [id number] [place] [address]- 4849 Jul, [place] [address] [place] [id number] [place] [address] 97694- 4603 Oct, Nausea R11.0 [place] [id number] [place] [address]- 4342 Oct, Phantom limb pain G54.7 ; Chronic airway obstruction, not elsewhere classified 496 ; Altered mental status 780.97 ; Encounter for long- term (current) use of high-risk medication V58.69 ; Anxiety 300.00 and Allergic rhinitis 477.[address] [place] [id number] [place] [address]- 1133 Aug, [place] [address] [place] [id number] [place] [address]- 9670 Jun, [place] [address] [place] [id number] [place] [address] 82762- 8972 Jun, [place] [address] [place] [id number] [place] [address] 62753- 2990 Apr, Chronic pain following surgery or procedure 338.28 ; COPD ( chronic obstructive pulmonary disease) with acute bronchitis 491.22 ; Allergic rhinitis 477.9 ; History of drug abuse 305.93 ; Encounter for long-term (current ) use of high-risk medication V58.69 ; Dyspepsia 536.8 ; Anxiety 300.00 and Noncompliance V15.81 [place] [id number] [place] [address]126- 6634 Mar, [place] [address] [place] [id number] [place] [address] 66561- 6776 Feb, [facility] [address] [facility] [id number] [place] [address] Feb, Chronic airway obstruction, not elsewhere classified 496 [facility] [place] [facility] [address] [id number] [place] [address] 1371 16 Feb, 2015 [facility] [place] [facility] [address] [facility] [id number] [place] [address]- 9242 Jan, [facility] [place] [facility] [address] [facility] [id number], [place] [address] 6[address] Jan, [facility] [place] [facility] [address] [facility] [id number] [place] [address]- 3652 Nov, [facility] [place] [facility] [address] [facility] [id number] [place] [address]- 9844 Nov, [facility] [place] [facility] [address] [place] [address] 59[address] Oct, [facility] [place] [facility] [address] [facility] [id number] [place] [address]- 8735 Oct, [facility] [place] [facility] [address] [facility] [id number] [place] [address]- 5286 Oct, [facility] [place] [facility] [address] [facility] [id number] [place] [address]- 8688 Oct, [facility] [place] [facility] [address] [facility] [id number], [place] [address] 1607 Oct, [facility] [place] [facility] [address] [facility] [id number], [place] [address] 8619 Oct, [facility] [place] [facility] [address] [facility] [id number] [place] [address]- 4318 Sep, [facility] [place] [facility] [address] [facility] [id number], [place] [address]- 2923 Sep, [facility] [place] [facility] [address] [facility] [id number] [place] [address]- 9122 Sep, [facility] [place] [facility] [address] [id number] [place] [address]- 7628 Sep, [facility] [place] [facility] [address] [id number] [place] [address]- 7420 Sep, [facility] [place] [facility] [address] [id number] [place] [address]- 2782 Sep, [facility] [place] [facility] [address] [id number] [place] [address]- 5192 Aug, [facility] [place] [facility] [address] [id number] [place] [address]- 4804 Aug, [facility] [place] [facility] [address] [id number] [place] [address]- 7441 Aug, [facility] [place] [facility] [address] [id number] [place] [address]- 2798 Aug, [facility] [place] [facility] [address] [id number] [place] [address]- 2227 Aug, [facility] [place] [facility] [address] [id number] [place] [address]- 1152 Aug, [facility] [place] [facility] [address] [id number] [place] [address]- 1871 Aug, [facility] [place] [facility] [address] [id number] [place] [address]- 0712 Aug, [facility] [place] [facility] [address] [id number] [place] [address]- 3420 Aug, [facility] [place] [facility] [address] [id number] [place] [address]- 9099 Aug, [facility] [place] [facility] [address] [id number] [place] [address]- 6479 Jul, [facility] [place] [facility] [address] [id number] [place] [address]- 4113 Jul, [facility] [place] [facility] [address] [id number], [place] [address]- 9769 Jul, [facility] [place] [facility] [address] [id number] [place] [address]- 1155 Jul, [facility] [place] [facility] [address] [id number] [place] [address] Jul, [facility] [place] [facility] [address] [facility] [id number] [place] [address]- 3221 Jul, [facility] [place] [facility] [address] [id number] [place] [address] Jul, [facility] [place] [facility] [address] [id number] [place] [address]- 3645 Jul, [facility] [place] [facility] [address] [id number] [place] [address]- 7806 Jul, [facility] [place] [facility] [address] [id number] [place] [address]- 6134 Jun, [facility] [place] [facility] [address] [id number] [place] [address]- 7187 Jun, [facility] [place] [facility] [address] [id number] [place] [address]- 9849 Jun, [facility] [place] [facility] [address] [id number] [place] [address]- 7806 Jun, [facility] [place] [facility] [address] [id number], [place] [address]- 0776 Jun, [facility] [place] [facility] [address] [id number], [place] [address]- 0880 Jun, [facility] [place] [facility] [address] [id number] [place] [address]- 2656 May, [facility] [place] [facility] [address] [id number] [place] [address]- 6222 May, [facility] [place] [facility] [address] [facility] [id number], [place] [address]- 1110 May, [facility] [place] [facility] [address] [id number] [place] [address]- 2563 14 May, 2014 [facility] [place] [facility] [address] [id number] [place] [address]- 6271 13 May, 2014 [facility] [place] [facility] [address] [id number] [place] [address]- 6986 10 May, 2014 [facility] [place] [facility] [address] [id number] [place] [address]- 1848 May, [facility] [place] [facility] [address] [id number] [place] [address]- 5229 Apr, [facility] [place] [facility] [address] [id number] [place] [address]- 8078 Apr, [facility] [place] [facility] [address] [id number] [place] [address]- 9528 Apr, [facility] [place] [facility] [address] [id number] [place] [address]- 3147 Apr, [facility] [place] [facility] [address] [id number] [place] [address]- 0536 Feb, [facility] [place] [facility] [address] [id number] [place] [address]- 7974 Feb, [facility] [place] [facility] [address] [id number] [place] [address]- 5361 Feb, [facility] [place] [facility] [address] [id number] [place] [address]- 1751 Feb, [facility] [place] [facility] [address] [id number] [place] [address]- 4931 Feb, [facility] [place] [facility] [address] [id number] [place] [address]- 0493 Feb, [facility] [place] [facility] [address] [id number] [place] [address]- 2572 Feb, [facility] [place] [facility] [address] [id number] [place] [address]- 9633 Feb, [facility] [place] [facility] [address] [id number] [place] [address]- 5981 Feb, [facility] [place] [facility] [address] [id number] [place] [address]- 8892 Feb, [facility] [place] [facility] [address] [id number] [place] [address]- 9808 Feb, [facility] [place] [facility] [address] [id number] [place] [address]- 5617 Feb, 2013 [facility] [place] [facility] [address] [id number] [place] [address]- 8857 Feb, [facility] [place] [facility] [address] [id number] [place] [address]- 9190 Feb, [facility] [place] [facility] [address] [id number] [place] [address]- 0653 Feb, [facility] [place] [facility] [address] [id number] [place] [address]- 5075 Feb, [facility] [place] [facility] [address] [id number] [place] [address]- 4161 Jan, [facility] [place] [facility] [address] [id number] [place] [address]- 3619 Jan, [facility] [place] [facility] [address] [id number] [place] [address]- 9463 Jan, [facility] [place] [facility] [address] [id number] [place] [address]- 3652 Jan, [facility] [place] [facility] [address] [id number] [place] [address]- 2540 Jan, [facility] [place] [facility] [address] [id number] [place] [address]- 9365 Jan, [facility] [place] [facility] [address] [id number] [place] [address]- 1296 Jan, [facility] [place] [facility] [address] [id number], [place] [address]- 1034 Jan, [facility] [place] [facility] [address] [id number] [place] [address]- 3809 Jan, [facility] [place] [facility] [address] [id number] [place] [address]- 9608 Jan, [facility] [place] [facility] [address] [id number] [place] [address]- 2794 Jan, [facility] [place] [facility] [address] [id number] [place] [address]- 3718 Jan, [facility] [place] [facility] [address] [id number] [place] [address]- 4103 Jan, [facility] [place] [facility] [address] [id number] [place] [address]- 7901 Jan, [facility] [place] [facility] [address] [facility] [id number] [place] [address]- 4511 Jan, [facility] [place] [facility] [address] [id number] [place] [address]- 7822 Jan, [facility] [place] [facility] [address] [id number] [place] [address]- 8137 Jan, [facility] [place] [facility] [address] [facility] [id number] [place] [address]- 2358 Jan, [facility] [place] [facility] [address] [id number], [place] [address]- 4508 Jan, [facility] [place] [facility] [address] [id number], [place] [address]- 9721 Jan, [facility] [place] [facility] [address] [id number], [place] [address]- 3731 Jan, [facility] [place] [facility] [address] [id number], [place] [address]- 7460 Jan, [facility] [place] [facility] [address] [facility] [id number], [place] [address]- 9491 Jan, [facility] [place] [facility] [address] [place] [id number] [address]- 1327 Jan, [facility] [address], [place] [address]- 7081 Jan, [facility] [address], [place] [address]- 3357 Jan, [facility] [address], [place] [address]- 6872 Jan, [facility] [address], [place] [address]- 8329 Jan, [facility] [id number] [place] [address]- 5520 Jan, [facility] [address], [place] [address]- 6826 Jan, [facility] [id number] [place] [address] 97936- 0453 Jan, [facility] [address], [place] [address]- 4045 Jan, [facility] [address], [place] [address]- 1393 Jun, [facility] [address] [place] [id number], [place] [address]- 9747 Jan, IMMUNIZATIONS No Known Immunizations SOCIAL HISTORY Never Assessed REASON FOR VISIT pt question about bed bugs PLAN OF CARE VITAL SIGNS MEDICATIONS Unknown Medications RESULTS No Results PROCEDURES No Known procedures INSTRUCTIONS MEDICATIONS ADMINISTERED No Known Medications MEDICAL (GENERAL) HISTORY Type Description Date Medical History 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 Medical History Respiratory disorder orthopnea Medical History asthma- tobacco use x30 years equal tp 50-60 packs a year Medical History COPD Medical History Gastric ulcer Medical History osteoporosis Medical History arthritis Medical History rheumatoid arthritis Medical History orthopedic disorder - 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 Shah Medical History positive drug screen for meth in hospital ER 01/2014 Medical History 02/11/2014 Ameritox positive for multiple substances not prescribed Surgical History cholecystectomy Surgical History gastric surgery mesh in lower portion of stomach Surgical History kidney surgery D&C Surgical History fgemksiesdxz-exhrm-kruzxhrp uterus Surgical History orthopedic surgery leg amputation by Dr. Hodge at [facility] r/ t osteoporosis 2005 Hospitalization History Surgery(s)/Childbirth(s) only Hospitalization History Pancreatitis, gastritis, abd pain-[facility] 08/10/16
--- OUTSIDE RECORDS SUMMARY | 2018-08-16 21:30 | XMS REPORT ---
Author Author DEONNA MORGAN Organization [facility] Address [address] [place] [address] Care Team Providers Care Radiology Orderly Name Role Phone DEONNA MORGAN Unavailable PROBLEMS Type Condition ICD9-CM Code ROJ74-BJ Code Onset Dates Condition Status SNOMED Code Problem Chronic obstructive pulmonary disease, unspecified COPD type J44.9 Active 28196577 Problem Chronic pancreatitis, unspecified pancreatitis type K86.1 Active 245338610 Problem Phantom limb pain G54.7 Active [id number] ALLERGIES No Information ENCOUNTERS Encounter Location Date Diagnosis [place] [address] [address] Mar, [place] [address] [place] [id number] [address]- [address] Feb, Chronic obstructive pulmonary disease, unspecified COPD type J44.9 [place] [address] [address]- [address] Jan, [place] [address] [place] [id number] [address]77- 9508 Jan, [place] [address] [place] [id number] [address] 98663- 1403 December, [place] [address] [place] [id number] [address] 97903- 6959 Nov, [place] [address] [address] Nov, Chronic pancreatitis, unspecified pancreatitis type K86.1 ; Chronic obstructive pulmonary disease, unspecified COPD type J44.9 ; Phantom limb pain G54.7 and Allergic state, initial encounter T78.40XA [place] [address] [address] Sep, [facility] [id number] [address] Jul, [facility] [address] [place] [id number] [address] 396747- 4636 Jul, [facility] [address] [place] [id number] [place] [address]5824- 3438 Jul, [place] [address] [place] [id number] [address]28- 7752 Oct, Nausea R11.0 [place] [id number] [address] 69271- 8832 Oct, Phantom limb pain G54.7 ; Chronic airway obstruction, not elsewhere classified 496 ; Altered mental status 780.97 ; Encounter for long- term (current) use of high-risk medication V58.69 ; Anxiety 300.00 and Allergic rhinitis 477.9 [place] [id number] [address] 11177- 9650 Aug, [place] [address] [place] [id number] [address]- 1951 Jun, [place] [address] [place] [id number] [address] 28797- 5278 Jun, [place] [address] [place] [id number] [place] [address] 54492- 1722 Apr, Chronic pain following surgery or procedure 338.28 ; COPD ( chronic obstructive pulmonary disease) with acute bronchitis 491.22 ; Allergic rhinitis 477.9 ; History of drug abuse 305.93 ; Encounter for long-term (current ) use of high-risk medication V58.69 ; Dyspepsia 536.8 ; Anxiety 300.00 and Noncompliance V15.81 [place] [id number] [place] [address] 79144- 5707 Mar, [place] [address] [place] [id number] [address] 82893- 8559 Feb, [facility] [address] [facility] [id number] [place] [address] 9144 Feb, Chronic airway obstruction, not elsewhere classified 496 [facility] [place] [facility] [address] [id number] [place] [address]- 1332 16 Feb, 2015 [facility] [place] [facility] [address] [facility] [id number] [place] [address]- 7548 Jan, [facility] [place] [facility] [address] [facility] [id number] [address] 9706 Jan, [facility] [place] [facility] [address] [facility] [id number] [place] [address]- 1610 Nov, [facility] [place] [facility] [address] [facility] [id number] [place] [address]- 8092 Nov, [facility] [place] [facility] [id number] [place] [address]- 4866 Oct, [facility] [place] [facility] [address] [facility] [id number] [place] [address]- 9998 Oct, [facility] [place] [facility] [address] [facility] [id number] [place] [address]- 0947 Oct, [facility] [place] [facility] [address] [facility] [id number] [place] [address]- 1008 Oct, [facility] [place] [facility] [address] [facility] [id number], [place] [address]- 8056 Oct, [facility] [place] [facility] [address] [facility] [id number] [address]- 0591 Oct, [facility] [place] [facility] [address] [facility] [id number] [place] [address]- 3236 Sep, [facility] [place] [facility] [address] [facility] [id number], [place] [address]- 0937 Sep, [facility] [place] [facility] [address] [facility] [id number] [place] [address]- 6415 Sep, [facility] [place] [facility] [address] [id number] [place] [address]- 8282 Sep, [facility] [place] [facility] [address] [id number] [place] [address]- 5452 Sep, [facility] [place] [facility] [address] [id number] [place] [address]- 6256 Sep, [facility] [place] [facility] [address] [id number] [place] [address]- 4306 Aug, [facility] [place] [facility] [address] [id number] [place] [address]- 7883 Aug, [facility] [place] [facility] [address] [id number] [place] [address]- 2445 Aug, [facility] [place] [facility] [address] [id number] [place] [address]- 1157 Aug, [facility] [place] [facility] [address] [id number] [place] [address]- 0164 Aug, [facility] [place] [facility] [address] [id number] [place] [address]- 7053 Aug, [facility] [place] [facility] [address] [id number] [place] [address]- 1820 Aug, [facility] [place] [facility] [address] [id number] [place] [address]- 0728 Aug, [facility] [place] [facility] [address] [id number] [place] [address]- 7684 Aug, [facility] [place] [facility] [address] [id number] [place] [address]- 2165 Aug, [facility] [place] [facility] [address] [id number] [place] [address]- 6394 Jul, [facility] [place] [facility] [address] [id number] [place] [address]- 8296 Jul, [facility] [place] [facility] [address] [id number] [address]- 6765 Jul, [facility] [place] [facility] [address] [id number] [place] [address]- 5408 Jul, [facility] [place] [facility] [address] [id number] [place] [address] Jul, [facility] [place] [facility] [address] [facility] [id number] [place] [address]- 7665 Jul, [facility] [place] [facility] [address] [id number] [place] [address] Jul, [facility] [place] [facility] [address] [id number] [place] [address]- 1459 Jul, [facility] [place] [facility] [address] [id number] [place] [address]- 0130 Jul, [facility] [place] [facility] [address] [id number] [place] [address]- 2848 Jun, [facility] [place] [facility] [address] [id number] [place] [address]- 2788 Jun, [facility] [place] [facility] [address] [id number] [place] [address]- 5387 Jun, [facility] [place] [facility] [address] [id number] [place] [address]- 2628 Jun, [facility] [place] [facility] [address] [id number], [place] [address]- 3721 Jun, [facility] [place] [facility] [address] [id number], [place] [address]- 8777 Jun, [facility] [place] [facility] [address] [id number] [place] [address]- 5098 May, [facility] [place] [facility] [address] [id number] [place] [address]- 9787 May, [facility] [place] [facility] [address] [facility] [id number] [address]- 9617 May, [facility] [place] [facility] [address] [id number] [place] [address]- 5513 14 May, 2014 [facility] [place] [facility] [address] [id number] [place] [address]- 7752 13 May, 2014 [facility] [place] [facility] [address] [id number] [place] [address]- 6376 10 May, 2014 [facility] [place] [facility] [address] [id number] [place] [address]- 3104 May, [facility] [place] [facility] [address] [id number] [place] [address]- 5045 Apr, [facility] [place] [facility] [address] [id number] [place] [address]- 2825 Apr, [facility] [place] [facility] [address] [id number] [place] [address]- 3692 Apr, [facility] [place] [facility] [address] [id number] [place] [address]- 4635 Apr, [facility] [place] [facility] [address] [id number] [place] [address]- 9918 Feb, [facility] [place] [facility] [address] [id number] [place] [address]- 4393 Feb, [facility] [place] [facility] [address] [id number] [place] [address]- 4816 Feb, [facility] [place] [facility] [address] [id number] [place] [address]- 3188 Feb, [facility] [place] [facility] [address] [id number] [place] [address]- 7349 Feb, [facility] [place] [facility] [address] [id number] [place] [address]- 2549 Feb, [facility] [place] [facility] [address] [id number] [place] [address]- 3553 Feb, [facility] [place] [facility] [address] [id number] [place] [address]- 7527 Feb, [facility] [place] [facility] [address] [id number] [place] [address]- 5348 Feb, [facility] [place] [facility] [address] [id number] [place] [address]- 3116 Feb, [facility] [place] [facility] [address] [id number] [place] [address]- 2051 Feb, [facility] [place] [facility] [address] [id number] [place] [address]- 3125 Feb, 2013 [facility] [place] [facility] [address] [id number] [place] [address]- 5599 Feb, [facility] [place] [facility] [address] [id number] [place] [address]- 5068 Feb, [facility] [place] [facility] [address] [id number] [place] [address]- 4681 Feb, [facility] [place] [facility] [address] [id number] [place] [address]- 3750 Feb, [facility] [place] [facility] [address] [id number] [place] [address]- 8747 Jan, [facility] [place] [facility] [address] [id number] [place] [address]- 5535 Jan, [facility] [place] [facility] [address] [id number] [place] [address]- 9166 Jan, [facility] [place] [facility] [address] [id number] [place] [address]- 3851 Jan, [facility] [place] [facility] [address] [id number] [place] [address]- 6000 Jan, [facility] [place] [facility] [address] [id number] [place] [address]- 1959 Jan, [facility] [place] [facility] [address] [id number] [place] [address]- 8004 Jan, [facility] [place] [facility] [address] [id number] [address]- 8041 Jan, [facility] [place] [facility] [address] [id number] [place] [address]- 8347 Jan, [facility] [place] [facility] [address] [id number] [place] [address]- 8849 Jan, [facility] [place] [facility] [address] [id number] [place] [address]- 9889 Jan, [facility] [place] [facility] [address] [id number] [place] [address]- 3121 Jan, [facility] [place] [facility] [address] [id number] [place] [address]- 7932 Jan, [facility] [place] [facility] [address] [id number] [place] [address]- 3168 Jan, [facility] [place] [facility] [address] [facility] [id number] [place] [address]- 2486 Jan, [facility] [place] [facility] [address] [id number] [place] [address]- 0632 Jan, [facility] [place] [facility] [address] [id number] [place] [address]- 2695 Jan, [facility] [place] [facility] [address] [facility] [id number] [place] [address]- 0983 Jan, [facility] [place] [facility] [address] [id number], [place] [address]- 1881 Jan, [facility] [place] [facility] [address] [id number], [place] [address]- 7143 Jan, [facility] [place] [facility] [address] [id number], [place] [address]- 4118 Jan, [facility] [place] [facility] [address] [id number], [place] [address]- 7550 Jan, [facility] [place] [facility] [address] [facility] [id number], [place] [address]- 9739 Jan, [facility] [place] [facility] [address] [id number] [address]- [address]272 Jan, [facility] [id number] [address] 6666 Jan, [facility] [id number] [address] 7431 Jan, [facility] [id number] [address] 5816 Jan, [facility] [id number] [address] 5310 Jan, [facility] [id number] [address] 7030 Jan, [facility] [id number] [address] 1089 Jan, [facility] [id number] [address] 4253 Jan, [facility] [id number] [address] 7023 Jan, [facility] [id number], [place] [address]- [address] Jun, [facility] [address] [place] [id number], [place] [address]- 0553 Jan, IMMUNIZATIONS No Known Immunizations SOCIAL HISTORY Never Assessed REASON FOR VISIT Refill request PLAN OF CARE VITAL SIGNS MEDICATIONS Medication Instructions Dosage Frequency Start Date End Date Duration Status ProAir HFA 108 (90 Base) mcg/act Inhalation every 4 hrs only dyspnea or wheezing inhale 2 puffs by inhalation route every 4-6 hours as needed PRN Oct, Active RESULTS No Results PROCEDURES No Known [...] bilateral carpal tunnel Medical History fired from [employer] [facility] [facility]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 Shah Medical History positive drug screen for meth in hospital ER 01/2014 Medical History 02/11/2014 Ameritox positive for multiple substances not prescribed Surgical History cholecystectomy Surgical History gastric surgery mesh in lower portion of stomach Surgical History kidney surgery D&C Surgical History ysdhnlgzlwuv-eerpy-sddjigmt uterus Surgical History orthopedic surgery leg amputation by Dr. Hodge at [facility] r/ t osteoporosis 2006 Hospitalization History Surgery(s)/Childbirth(s) only Hospitalization History Pancreatitis, gastritis, abd pain-[facility] 08/10/16
--- OUTSIDE RECORDS SUMMARY | 2018-08-16 21:30 | XMS REPORT ---
Author Author DEONNA MORGAN Organization [facility] Address [address] [place] [address] Care Team Providers Care Deck Builder Name Role Phone DEONNA MORGAN Unavailable PROBLEMS Type Condition ICD9-CM Code BWK70-SN Code Onset Dates Condition Status SNOMED Code Problem Chronic obstructive pulmonary disease, unspecified COPD type J44.9 Active 20977021 Problem Chronic pancreatitis, unspecified pancreatitis type K86.1 Active [id number] Problem Phantom limb pain G54.7 Active [id number] ALLERGIES No Information ENCOUNTERS Encounter Location Date Diagnosis [place] [address] [address] Mar, [place] [address] [place] [id number] [place] [address]4735- 7917 Feb, Chronic obstructive pulmonary disease, unspecified COPD type J44.9 [place] [address] [address]- 6278 Jan, [place] [address] [place] [id number] [place] [address] 54225- 5945 Jan, [place] [address] [place] [id number] [place] [address] 15139- 5023 December, [place] [address] [place] [id number] [place] [address] 75178- 0977 Nov, [place] [address] 94108- 1098 Nov, Chronic pancreatitis, unspecified pancreatitis type K86.1 ; Chronic obstructive pulmonary disease, unspecified COPD type J44.9 ; Phantom limb pain G54.7 and Allergic state, initial encounter T78.40XA [place] [address] 99[address]- 9805 Sep, [facility] [id number] [address] Jul, [facility] [address] [place] [id number] [place] [address] 927678- 1799 Jul, [facility] [address] [place] [id number] [place] [address] 48542- 9670 Jul, [place] [address] [place] [id number] [place] [address] 26239- 3760 Oct, Nausea R11.0 [place] [id number] [place] [address] 79425- 0117 Oct, Phantom limb pain G54.7 ; Chronic airway obstruction, not elsewhere classified 496 ; Altered mental status 780.97 ; Encounter for long- term (current) use of high-risk medication V58.69 ; Anxiety 300.00 and Allergic rhinitis 477.9 [place] [id number] [place] [address] 07234- 7726 Aug, [place] [address] [place] [id number] [place] [address] 73646- 7560 Jun, [place] [address] [place] [id number] [place] [address] 16014- 1721 Jun, [place] [address] [place] [id number] [place] [address] 79634- 2636 Apr, Chronic pain following surgery or procedure 338.28 ; COPD ( chronic obstructive pulmonary disease) with acute bronchitis 491.22 ; Allergic rhinitis 477.9 ; History of drug abuse 305.93 ; Encounter for long-term (current ) use of high-risk medication V58.69 ; Dyspepsia 536.8 ; Anxiety 300.00 and Noncompliance V15.81 [place] [id number] [place] [address] 63637- 8156 Mar, [place] [address] [place] [id number] [place] [address] 26911- 6269 Feb, [facility] [address] [facility] [id number] [place] [address]- 6419 Feb, Chronic airway obstruction, not elsewhere classified 496 [facility] [place] [facility] [address] [id number] [place] [address]- 6260 16 Feb, 2015 [facility] [place] [facility] [address] [facility] [id number] [place] [address]- 3800 Jan, [facility] [place] [facility] [address] [facility] [id number], [place] [address]- 9730 Jan, [facility] [place] [facility] [address] [facility] [id number] [place] [address]- 9964 Nov, [facility] [place] [facility] [address] [facility] [id number] [place] [address]- 5852 Nov, [facility] [place] [facility] [id number] [place] [address]- 7166 Oct, [facility] [place] [facility] [address] [facility] [id number] [place] [address]- 0036 Oct, [facility] [place] [facility] [address] [facility] [id number] [place] [address]- 6090 Oct, [facility] [place] [facility] [address] [facility] [id number] [place] [address]- 9342 Oct, [facility] [place] [facility] [address] [facility] [id number], [place] [address]- 2362 Oct, [facility] [place] [facility] [address] [facility] [id number], [place] [address]- 6296 Oct, [facility] [place] [facility] [address] [facility] [id number] [place] [address]- 3023 Sep, [facility] [place] [facility] [address] [facility] [id number], [place] [address]- 9091 Sep, [facility] [place] [facility] [address] [facility] [id number] [place] [address]- 4566 Sep, [facility] [place] [facility] [address] [id number] [place] [address]- 2110 Sep, [facility] [place] [facility] [address] [id number] [place] [address]- 5844 Sep, [facility] [place] [facility] [address] [id number] [place] [address]- 4971 Sep, [facility] [place] [facility] [address] [id number] [place] [address]- 3547 Aug, [facility] [place] [facility] [address] [id number] [place] [address]- 9882 Aug, [facility] [place] [facility] [address] [id number] [place] [address]- 4973 Aug, [facility] [place] [facility] [address] [id number] [place] [address]- 6204 Aug, [facility] [place] [facility] [address] [id number] [place] [address]- 2141 Aug, [facility] [place] [facility] [address] [id number] [place] [address]- 2607 Aug, [facility] [place] [facility] [address] [id number] [place] [address]- 1126 Aug, [facility] [place] [facility] [address] [id number] [place] [address]- 0188 Aug, [facility] [place] [facility] [address] [id number] [place] [address]- 5540 Aug, [facility] [place] [facility] [address] [id number] [place] [address]- 6837 Aug, [facility] [place] [facility] [address] [id number] [place] [address]- 6127 Jul, [facility] [place] [facility] [address] [id number] [place] [address]- 3720 Jul, [facility] [place] [facility] [address] [id number], [place] [address]- 2140 Jul, [facility] [place] [facility] [address] [id number] [place] [address]- 9629 Jul, [facility] [place] [facility] [address] [id number] [place] [address]34 Jul, [facility] [place] [facility] [address] [facility] [id number] [place] [address]- 8067 Jul, [facility] [place] [facility] [address] [id number] [place] [address]78 Jul, [facility] [place] [facility] [address] [id number] [place] [address]- 6927 Jul, [facility] [place] [facility] [address] [id number] [place] [address]- 3288 Jul, [facility] [place] [facility] [address] [id number] [place] [address]- 3155 Jun, [facility] [place] [facility] [address] [id number] [place] [address]- 2083 Jun, [facility] [place] [facility] [address] [id number] [place] [address]- 4626 Jun, [facility] [place] [facility] [address] [id number] [place] [address]- 5954 Jun, [facility] [place] [facility] [address] [id number], [place] [address]- 7501 Jun, [facility] [place] [facility] [address] [id number], [place] [address]- 9457 Jun, [facility] [place] [facility] [address] [id number] [place] [address]- 2698 May, [facility] [place] [facility] [address] [id number] [place] [address]- 3151 May, [facility] [place] [facility] [address] [facility] [id number], [place] [address]- 3751 May, [facility] [place] [facility] [address] [id number] [place] [address]- 9951 14 May, 2014 [facility] [place] [facility] [address] [id number] [place] [address]- 4679 13 May, 2014 [facility] [place] [facility] [address] [id number] [place] [address]- 1686 10 May, 2014 [facility] [place] [facility] [address] [id number] [place] [address]- 1395 May, [facility] [place] [facility] [address] [id number] [place] [address]- 8705 Apr, [facility] [place] [facility] [address] [id number] [place] [address]- 3347 Apr, [facility] [place] [facility] [address] [id number] [place] [address]- 2626 Apr, [facility] [place] [facility] [address] [id number] [place] [address]- 6575 Apr, [facility] [place] [facility] [address] [id number] [place] [address]- 9583 Feb, [facility] [place] [facility] [address] [id number] [place] [address]- 6094 Feb, [facility] [place] [facility] [address] [id number] [place] [address]- 5174 Feb, [facility] [place] [facility] [address] [id number] [place] [address]- 8124 Feb, [facility] [place] [facility] [address] [id number] [place] [address]- 4669 Feb, [facility] [place] [facility] [address] [id number] [place] [address]- 6627 Feb, [facility] [place] [facility] [address] [id number] [place] [address]- 5273 Feb, [facility] [place] [facility] [address] [id number] [place] [address]- 4468 Feb, [facility] [place] [facility] [address] [id number] [place] [address]- 4184 Feb, [facility] [place] [facility] [address] [id number] [place] [address]- 5134 Feb, [facility] [place] [facility] [address] [id number] [place] [address]- 4653 Feb, [facility] [place] [facility] [address] [id number] [place] [address]- 3222 Feb, 2013 [facility] [place] [facility] [address] [id number] [place] [address]- 3285 Feb, [facility] [place] [facility] [address] [id number] [place] [address]- 7710 Feb, [facility] [place] [facility] [address] [id number] [place] [address]- 2590 Feb, [facility] [place] [facility] [address] [id number] [place] [address]- 0821 Feb, [facility] [place] [facility] [address] [id number] [place] [address]- 0950 Jan, [facility] [place] [facility] [address] [id number] [place] [address]- 4095 Jan, [facility] [place] [facility] [address] [id number] [place] [address]- 8372 Jan, [facility] [place] [facility] [address] [id number] [place] [address]- 6963 Jan, [facility] [place] [facility] [address] [id number] [place] [address]- 3889 Jan, [facility] [place] [facility] [address] [id number] [place] [address]- 8449 Jan, [facility] [place] [facility] [address] [id number] [place] [address]- 2701 Jan, [facility] [place] [facility] [address] [id number], [place] [address]- 5732 Jan, [facility] [place] [facility] [address] [id number] [place] [address]- 6085 Jan, [facility] [place] [facility] [address] [id number] [place] [address]- 0116 Jan, [facility] [place] [facility] [address] [id number] [place] [address]- 2467 Jan, [facility] [place] [facility] [address] [id number] [place] [address]- 0911 Jan, [facility] [place] [facility] [address] [id number] [place] [address]- 3995 Jan, [facility] [place] [facility] [address] [id number] [place] [address]- 3087 Jan, [facility] [place] [facility] [address] [facility] [id number] [place] [address]- 6438 Jan, [facility] [place] [facility] [address] [id number] [place] [address]- 6976 Jan, [facility] [place] [facility] [address] [id number] [place] [address]- 7058 Jan, [facility] [place] [facility] [address] [facility] [id number] [place] [address]- 7892 Jan, [facility] [place] [facility] [address] [id number], [place] [address]- 2407 Jan, [facility] [place] [facility] [address] [id number], [place] [address]- 3046 Jan, [facility] [place] [facility] [address] [id number], [place] [address]- 9143 Jan, [facility] [place] [facility] [address] [id number], [place] [address]- 2615 Jan, [facility] [place] [facility] [address] [facility] [id number], [place] [address]- 4824 Jan, [facility] [place] [facility] [address] [id number] [address]- 5605 Jan, [facility] [address], [place] [address]- 0034 Jan, [facility] [address], [place] [address]- 9380 Jan, [facility] [address], [place] [address]- 0309 Jan, [facility] [address], [place] [address]- 0800 Jan, [facility] [id number] [place] [address] 18507- 4190 Jan, [facility] [address], [place] [address]- 1535 Jan, [facility] [id number] [place] [address] 08314- 6127 Jan, [facility] [address], [place] [address]- 1520 Jan, [facility] [address], [place] [address]- 8976 Jun, [facility] [address] [place] [address] [id number] [address]- 8553 Jan, IMMUNIZATIONS No Known Immunizations SOCIAL HISTORY Never Assessed REASON FOR VISIT [facility] PLAN OF CARE VITAL SIGNS MEDICATIONS Unknown [...] bilateral carpal tunnel Medical History fired from [employer] [employer]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 Shah Medical History positive drug screen for meth in hospital ER 01/2014 Medical History 02/11/2014 Ameritox positive for multiple substances not prescribed Surgical History cholecystectomy Surgical History gastric surgery mesh in lower portion of stomach Surgical History kidney surgery D&C Surgical History lxalpqstjaqj-heppi-ziqhrskn uterus Surgical History orthopedic surgery leg amputation by Dr. Hodge at [facility] r/ t osteoporosis 2005 Hospitalization History Surgery(s)/Childbirth(s) only Hospitalization History Pancreatitis, gastritis, abd pain-[facility] 08/10/16
--- OUTSIDE RECORDS SUMMARY | 2018-08-16 21:30 | XMS REPORT ---
Author Author DEONNA MORGAN Organization [facility] Address [address] [place] [address] Care Team Providers Care Formulation Chemist Name Role Phone DEONNA MORGAN Unavailable PROBLEMS Type Condition ICD9-CM Code SMY57-[place] Code Onset Dates Condition Status SNOMED Code Problem Chronic obstructive pulmonary disease, unspecified COPD type J44.9 Active 33746434 Problem Chronic pancreatitis, unspecified pancreatitis type K86.1 Active 480536493 Problem Phantom limb pain G54.7 Active 490337200 ALLERGIES No Information ENCOUNTERS Encounter Location Date Diagnosis [place] [id number] [place] [address] 67571- 3087 Mar, [place] [id number] [place] [address] 90764- 7491 Feb, Chronic obstructive pulmonary disease, unspecified COPD type J44.9 [place] [address] [address]- [address] Jan, [place] [id number] [place] [address] 36610- 3166 Jan, [place] [id number] [place] [address] 11347- 7575 December, [place] [id number] [place] [address] 64162- 7927 Nov, [place] [id number] [place] [address] 81729- 3320 Nov, Chronic pancreatitis, unspecified pancreatitis type K86.1 ; Chronic obstructive pulmonary disease, unspecified COPD type J44.9 ; Phantom limb pain G54.7 and Allergic state, initial encounter T78.40XA [place] [address] [address]87- 2477 Sep, [facility] [address] [address] Jul, [facility] [id number] [place] [address] 125028- 9625 Jul, [facility] [id number] [place] [address] 47015- 1975 Jul, [place] [id number] [place] [address] 92391- 2216 Oct, Nausea R11.0 [place] [id number] [place] [address] 67108- 0980 Oct, Phantom limb pain G54.7 ; Chronic airway obstruction, not elsewhere classified 496 ; Altered mental status 780.97 ; Encounter for long- term (current) use of high-risk medication V58.69 ; Anxiety 300.00 and Allergic rhinitis 477.9 [place] [id number] [place] [address] 72015- 0053 Aug, [place] [id number] [place] [address] 48136- 9157 Jun, [place] [id number] [place] [address] 79392- 4490 Jun, [place] [id number] [place] [address] 19938- 3592 Apr, Chronic pain following surgery or procedure 338.28 ; COPD ( chronic obstructive pulmonary disease) with acute bronchitis 491.22 ; Allergic rhinitis 477.9 ; History of drug abuse 305.93 ; Encounter for long-term (current ) use of high-risk medication V58.69 ; Dyspepsia 536.8 ; Anxiety 300.00 and Noncompliance V15.81 [place] [id number] [place] [address] 28980- 7435 Mar, [place] [id number] [place] [address] 88903- 0669 Feb, [facility] [address] [facility] [id number] [place] [address]- 2906 Feb, Chronic airway obstruction, not elsewhere classified 496 [facility] [place] [facility] [address] [id number] [place] [address]- 8495 16 Feb, 2015 [facility] [place] [facility] [address] [facility] [id number] [place] [address]- 2197 Jan, [facility] [place] [facility] [address] [facility] [id number], [place] [address]- 6389 Jan, [facility] [place] [facility] [address] [facility] [id number] [place] [address]- 2147 Nov, [facility] [place] [facility] [address] [facility] [id number] [place] [address]- 3619 Nov, [facility] [place] [facility] [id number] [place] [address]- 7761 Oct, [facility] [place] [facility] [address] [facility] [id number] [place] [address]- 2414 Oct, [facility] [place] [facility] [address] [facility] [id number] [place] [address]- 2164 Oct, [facility] [place] [facility] [address] [facility] [id number] [place] [address]- 6838 Oct, [facility] [place] [facility] [address] [facility] [id number], [place] [address]- 6437 Oct, [facility] [place] [facility] [address] [facility] [id number], [place] [address]- 3723 Oct, [facility] [place] [facility] [address] [facility] [id number] [place] [address]- 1837 Sep, [facility] [place] [facility] [address] [facility] [id number], [place] [address]- 9706 Sep, [facility] [place] [facility] [address] [facility] [id number] [place] [address]- 7628 Sep, [facility] [place] [facility] [address] [id number] [place] [address]- 5391 Sep, [facility] [place] [facility] [address] [id number] [place] [address]- 0784 Sep, [facility] [place] [facility] [address] [id number] [place] [address]- 2907 Sep, [facility] [place] [facility] [address] [id number] [place] [address]- 9600 Aug, [facility] [place] [facility] [address] [id number] [place] [address]- 3970 Aug, [facility] [place] [facility] [address] [id number] [place] [address]- 1022 Aug, [facility] [place] [facility] [address] [id number] [place] [address]- 4183 Aug, [facility] [place] [facility] [address] [id number] [place] [address]- 1655 Aug, [facility] [place] [facility] [address] [id number] [place] [address]- 4710 Aug, [facility] [place] [facility] [address] [id number] [place] [address]- 8716 Aug, [facility] [place] [facility] [address] [id number] [place] [address]- 7022 Aug, [facility] [place] [facility] [address] [id number] [place] [address]- 0966 Aug, [facility] [place] [facility] [address] [id number] [place] [address]- 2052 Aug, [facility] [place] [facility] [address] [id number] [place] [address]- 5906 Jul, [facility] [place] [facility] [address] [id number] [place] [address]- 1971 Jul, [facility] [place] [facility] [address] [id number], [place] [address]- 8326 Jul, [facility] [place] [facility] [address] [id number] [place] [address]- 8945 Jul, [facility] [place] [facility] [address] [id number] [place] 3636 Jul, [facility] [place] [facility] [address] [facility] [id number] [place] [address]- 1882 Jul, [facility] [place] [facility] [address] [id number] [place] 5849 Jul, [facility] [place] [facility] [address] [id number] [place] [address]- 0285 Jul, [facility] [place] [facility] [address] [id number] [place] [address]- 3149 Jul, [facility] [place] [facility] [address] [id number] [place] [address]- 3779 Jun, [facility] [place] [facility] [address] [id number] [place] [address]- 5212 Jun, [facility] [place] [facility] [address] [id number] [place] [address]- 2993 Jun, [facility] [place] [facility] [address] [id number] [place] [address]- 2025 Jun, [facility] [place] [facility] [address] [id number], [place] [address]- 5260 Jun, [facility] [place] [facility] [address] [id number], [place] [address]- 2164 Jun, [facility] [place] [facility] [address] [id number] [place] [address]- 4945 May, [facility] [place] [facility] [address] [id number] [place] [address]- 1809 May, [facility] [place] [facility] [address] [facility] [id number], [place] [address]- 5642 May, [facility] [place] [facility] [address] [id number] [place] [address]- 4958 14 May, 2014 [facility] [place] [facility] [address] [id number] [place] [address]- 4214 13 May, 2014 [facility] [place] [facility] [address] [id number] [place] [address]- 5916 10 May, 2014 [facility] [place] [facility] [address] [id number] [place] [address]- 7700 May, [facility] [place] [facility] [address] [id number] [place] [address]- 6805 Apr, [facility] [place] [facility] [address] [id number] [place] [address]- 4936 Apr, [facility] [place] [facility] [address] [id number] [place] [address]- 1100 Apr, [facility] [place] [facility] [address] [id number] [place] [address]- 1855 Apr, [facility] [place] [facility] [address] [id number] [place] [address]- 7428 Feb, [facility] [place] [facility] [address] [id number] [place] [address]- 8627 Feb, [facility] [place] [facility] [address] [id number] [place] [address]- 9254 Feb, [facility] [place] [facility] [address] [id number] [place] [address]- 7761 Feb, [facility] [place] [facility] [address] [id number] [place] [address]- 3639 Feb, [facility] [place] [facility] [address] [id number] [place] [address]- 7130 Feb, [facility] [place] [facility] [address] [id number] [place] [address]- 5475 Feb, [facility] [place] [facility] [address] [id number] [place] [address]- 9873 Feb, [facility] [place] [facility] [address] [id number] [place] [address]- 4452 Feb, [facility] [place] [facility] [address] [id number] [place] [address]- 3541 Feb, [facility] [place] [facility] [address] [id number] [place] [address]- 3029 Feb, [facility] [place] [facility] [address] [id number] [place] [address]- 2395 Feb, 2013 [facility] [place] [facility] [address] [id number] [place] [address]- 5269 Feb, [facility] [place] [facility] [address] [id number] [place] [address]- 0771 Feb, [facility] [place] [facility] [address] [id number] [place] [address]- 3989 Feb, [facility] [place] [facility] [address] [id number] [place] [address]- 8964 Feb, [facility] [place] [facility] [address] [id number] [place] [address]- 8817 Jan, [facility] [place] [facility] [address] [id number] [place] [address]- 1875 Jan, [facility] [place] [facility] [address] [id number] [place] [address]- 3718 Jan, [facility] [place] [facility] [address] [id number] [place] [address]- 5398 Jan, [facility] [place] [facility] [address] [id number] [place] [address]- 8831 Jan, [facility] [place] [facility] [address] [id number] [place] [address]- 1403 Jan, [facility] [place] [facility] [address] [id number] [place] [address]- 3754 Jan, [facility] [place] [facility] [address] [id number], [place] [address]- 9297 Jan, [facility] [place] [facility] [address] [id number] [place] [address]- 3406 Jan, [facility] [place] [facility] [address] [id number] [place] [address]- 0299 Jan, [facility] [place] [facility] [address] [id number] [place] [address]- 5607 Jan, [facility] [place] [facility] [address] [id number] [place] [address]- 9268 Jan, [facility] [place] [facility] [address] [id number] [place] [address]- 5137 Jan, [facility] [place] [facility] [address] [id number] [place] [address]- 9441 Jan, [facility] [place] [facility] [address] [facility] [id number] [place] [address]- 2742 Jan, [facility] [place] [facility] [address] [id number] [place] [address]- 8784 Jan, [facility] [place] [facility] [address] [id number] [place] [address]- 1451 Jan, [facility] [place] [facility] [address] [facility] [id number] [place] [address]- 4644 Jan, [facility] [place] [facility] [address] [id number], [place] [address]- 0998 Jan, [facility] [place] [facility] [address] [id number], [place] [address]- 9958 Jan, [facility] [place] [facility] [address] [id number], [place] [address]- 8063 Jan, [facility] [place] [facility] [address] [id number], [place] [address]- 7318 Jan, [facility] [place] [facility] [address] [facility] [id number], [place] [address]- 8591 Jan, [facility] [place] [facility] [id number] [address]- 7551 Jan, [facility] [address], [place] [address]- 0735 Jan, [facility] [address], [place] [address]- 5492 Jan, [facility] [address], [place] [address]- 5768 Jan, [facility] [address], [place] [address]- 3740 Jan, [facility] [address] [address]- 3881 Jan, [facility] [address] [address]- 1730 Jan, [facility] [id number] [place] [address] 64907- 9827 Jan, [facility] [address], [place] [address]- 7624 Jan, [facility] [address], [place] [address]- 2148 Jun, [facility] [id number] [address]- 4931 Jan, IMMUNIZATIONS No Known Immunizations SOCIAL HISTORY Never Assessed REASON FOR VISIT Requests return call PLAN OF CARE VITAL SIGNS MEDICATIONS Unknown [...] bilateral carpal tunnel Medical History fired from [facility] [employer] [employer]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 Shah Medical History positive drug screen for meth in hospital ER 01/2014 Medical History 02/11/2014 Ameritox positive for multiple substances not prescribed Surgical History cholecystectomy Surgical History gastric surgery mesh in lower portion of stomach Surgical History kidney surgery D&C Surgical History podwljmeywax-gsqmm-nwyrlyhw uterus Surgical History orthopedic surgery leg amputation by Dr. Hodge at [facility] r/ t osteoporosis 2005 Hospitalization History Surgery(s)/Childbirth(s) only Hospitalization History Pancreatitis, gastritis, abd pain-[facility] 08/10/16
[2018-08-16 21:35] LABS: BASOPHILS # (AUTO) 0.1 10^3/uL (0.0-0.1); BASOPHILS % (AUTO) 1 % (0-10); EOSINOPHILS # (AUTO) 0.2 10^3/uL (0.0-0.3); EOSINOPHILS % (AUTO) 2 % (0-10); HEMATOCRIT 38 % (35-52); HEMOGLOBIN 12.6 G/DL (11.5-16.0); LYMPHOCYTES # (AUTO) 1.5 X 10^3 (1.0-4.0); LYMPHOCYTES % (AUTO) 15 % (12-44); MEAN CORPUSCULAR HEMOGLOBIN 35 PG (25-34); MEAN CORPUSCULAR HGB CONC 33 G/DL (32-36); MEAN CORPUSCULAR VOLUME 106 FL (80-99); MEAN PLATELET VOLUME 9.9 FL (7.4-10.4); MONOCYTES # (AUTO) 0.8 X 10^3 (0.0-1.0); MONOCYTES % (AUTO) 8 % (0-12); NEUTROPHILS # (AUTO) 7.4 X 10^3 (1.8-7.8); NEUTROPHILS % (AUTO) 74 % (42-75); PLATELET COUNT 226 10^3/uL (130-400); RED BLOOD COUNT 3.59 10^6/uL (4.35-5.85); RED CELL DISTRIBUTION WIDTH 16.7 % (10.0-14.5)
--- NOTE | 2018-08-16 21:50 | ED Abdominal Pain ---
General Chief Complaint: Abdominal/GI Problems Stated Complaint: N/V Nursing Triage Note: PT VERBALIZES LOWER ABDOMINAL PAIN WITH BOUTS OF ACID REFLUX FOR THE LAST WEEK. Sepsis Screen: No Definite Risk Source of Information: Patient Exam Limitations: No Limitations History of Present Illness Date Seen by Provider: Aug 16, 2018 Time Seen by Provider: 21:21 Initial Comments 48-year-old female patient presents to the emergency department with complaints of left-sided abdominal pain she states feels similar to her chronic pancreatitis. Patient does also report reflux for approximately one week. Patient states she has been having nausea and vomiting for the last week. Unable to keep anything down. Timing/Duration: 1 Week, Constant Severity/Quality: Cramping Location: LUQ, LLQ Radiation: No Radiation Activities at Onset: None Modifying Factors: Worsens With Eating, Worsens With Palpation Allergies and Home Medications Allergies Coded Allergies: ofloxacin (Verified Allergy, Mild, 08/10/16) Penicillins (Verified Allergy, Unknown, Pt has received Ceftriaxone & Cefepime in the past w/o issue, 08/06/17) amoxicillin (Verified Allergy, Unknown, 08/10/16) clavulanic acid (Verified Allergy, Unknown, 08/10/16) promethazine (Verified Allergy, Unknown, 08/10/16) propoxyphene (Verified Allergy, Unknown, 08/10/16) ketorolac (Verified Adverse Reaction, Unknown, 11/08/17) tramadol (Verified Adverse Reaction, Unknown, 11/08/17) Home Medications Albuterol Sulfate 1 Puff Puff, 2 PUFF IH Q4H PRN for SHORTNESS OF BREATH, ( Reported) 1 PUFF = 90 MCG Budesonide/Formoterol Fumarate 10.2 Gm Hfa.aer.ad, 2 PUFF IH BID, (Reported) Cetirizine HCl 10 Mg Tablet, 10 MG PO DAILY, (Reported) Dicyclomine HCl 10 Mg Capsule, 10-20 MG PO QID PRN for CRAMPS, (Reported) Fluticasone Propionate 16 Gm [place].susp, 2 SPRAYS NS DAILY, (Reported) Gabapentin 300 Mg Capsule, 900 MG PO QID, (Reported) TAKES 3 (300MG) CAPUSLES Lipase/Protease/Amylase 1 Each Capsule.dr, 2 CAP PO TIDWM, (Reported) Nitrofurantoin Monohyd/M-Cryst 100 Mg Capsule, 1 TAB PO BID . Prescribed by: JUAN C FRANCISCO on 04/18/182004 Ondansetron 8 Mg Tab.rapdis, 8 MG PO Q6H PRN for NAUSEA/VOMITING-1ST LINE, ( Reported) Ranitidine HCl 150 Mg Tablet, 150 MG PO BID, (Reported) Patient Home Medication List Home Medication List Reviewed: Yes Review of Systems Review of Systems Constitutional: No chills, No diaphoresis, No fever, No malaise EENTM: No Symptoms Reported Respiratory: Denies Cough, Denies Shortness of Air, Denies Stridor, Denies Wheezing Cardiovascular: Denies Chest Pain, Denies Irregular Heart Rate, Denies Lightheadedness, Denies Palpitations, Denies Syncope Gastrointestinal: See HPI; Denies Abdomen Distended; Abdominal Pain; Denies Blood Streaked Stools, Denies Constipated, Denies Diarrhea; Nausea, Poor Appetite, Poor Fluid Intake; Denies Rectal Bleeding; Vomiting Genitourinary: Denies Burning, Denies Discharge, Denies Frequency, Denies Flank Pain, Denies Pain Musculoskeletal: No back pain Skin: no symptoms reported Psychiatric/Neurological: No Symptoms Reported All Other Systems Reviewed Negative Unless Noted: Yes (Negative excepted noted.) Past Ifhoadj-Ataqdn-Csxzoa Hx Past Med/Social Hx: Reviewed Nursing Past Med/Soc Hx Patient Social History Alcohol Beverage of Choice: Beer Drug of Choice: OXYCODONE Type Used: Cigars, Cigarettes 2nd Hand Smoke Exposure: No Recent Foreign Travel: No Contact w/Someone Who Travel: No Recent Infectious Disease Expo: No Recent Hopitalizations: Yes Immunizations Up To Date Tetanus Booster (TDap): Unknown PED Vaccines UTD: No Date of Pneumonia Vaccine: Jul 26, 2009 Date of Influenza Vaccine: Sep 26, 2013 Seasonal Allergies Seasonal Allergies: No Past Medical History Surgeries: Yes Amputation, Gallbladder, Hysterectomy Respiratory: Yes Asthma, COPD, Emphysema Currently Using CPAP: No Currently Using BIPAP: No Cardiac: No Neurological: No Stroke : No 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 Disorders: Yes 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 Sexually Transmitted Disease: No HIV/AIDS: No Genitourinary: Yes UTI-Chronic Gastrointestinal: Yes Gastroesophageal Reflux, Pancreatitis (chronic pancreatitis), Hiatal Hernia Musculoskeletal: Yes Amputee, Osteoporosis Endocrine: Yes HEENT: No Cataract Loss of Vision: Denies Hearing Impairment: Denies Cancer: No Psychosocial: No Anxiety, Depression Integumentary: No Blood Disorders: No Adverse Reaction/Blood Tranf: No Family Medical History Reviewed Nursing Family Hx Alzheimer's disease 19 FATHER 19 MOTHER Asthma 19 FATHER Completed stroke 19 FATHER Deafness or hearing loss 19 FATHER Dementia 19 FATHER Diabetes mellitus 19 FATHER 19 MOTHER Headache disorder 19 FATHER Hypertension 19 FATHER 19 MOTHER Myocardial infarction 19 FATHER 19 MOTHER Respiratory disorder 19 FATHER No Family History of: Kidney disease No Pertinent Family Hx, Heart Disease, COPD, Diabetes, Hypertension, Stroke Physical Exam Vital Signs Vital Signs - First Documented 08/16/18 21:21 Temp 96.0 Pulse 71 Resp 20 B/P (MAP) 108/62 (77) Pulse Ox 94 O2 Delivery Room Air Capillary Refill : Less Than 3 Seconds Height/Weight/BMI Height: 5'1.00" Weight: 86lbs. 0.0oz. [id number]; 17.2 BMI Method:Stated General Appearance: WD/WN, no apparent distress HEENT: PERRL/EOMI, pharynx normal Neck: supple, normal inspection Respiratory: lungs clear, normal breath sounds, no respiratory distress, no accessory muscle use Cardiovascular: normal peripheral pulses, regular rate, rhythm, no edema, no murmur Gastrointestinal: normal bowel sounds, soft, no organomegaly, distended ( slightly distended but soft), guarding (generalized guarding); No rebound; tenderness (generalized tenderness) Extremities: no pedal edema, normal capillary refill Back: normal inspection, no CVA tenderness Neurologic/Psychiatric: alert, normal mood/affect, oriented x 3 Skin: normal color, warm/dry Progress/Results/Core Measures Results/Orders Lab Results Laboratory Tests Test 08/16/18 21:20 08/16/18 22:31 Range/Units White Blood Count 10.0 4.3-11.0 10^3/uL Red Blood Count 3.59 L 4.35-5.85 10^6/uL Hemoglobin 12.6 11.5-16.0 G/DL Hematocrit 38 35-52 % Mean Corpuscular Volume 106 H 80-99 FL Mean Corpuscular Hemoglobin 35 H 25-34 PG Mean Corpuscular Hemoglobin Concent 33 32-36 G/DL Red Cell Distribution Width 16.7 H 10.0-14.5 % Platelet Count 226 130-400 10^3/uL Mean Platelet Volume 9.9 7.4-10.4 FL Neutrophils (%) (Auto) 74 42-75 % Lymphocytes (%) (Auto) 15 12-44 % Monocytes (%) (Auto) 8 0-12 % Eosinophils (%) (Auto) 2 0-10 % Basophils (%) (Auto) 1 0-10 % Neutrophils # (Auto) 7.4 1.8-7.8 X 10^3 Lymphocytes # (Auto) 1.5 1.0-4.0 X 10^3 Monocytes # (Auto) 0.8 0.0-1.0 X 10^3 Eosinophils # (Auto) 0.2 0.0-0.3 10^3/uL Basophils # (Auto) 0.1 0.0-0.1 10^3/uL Sodium Level 138 135-145 MMOL/L Potassium Level 3.5 L 3.6-5.0 MMOL/L Chloride Level 112 H 98-107 MMOL/L Carbon Dioxide Level 13 L 21-32 MMOL/L Anion Gap 13 5-14 MMOL/L Blood Urea Nitrogen 28 H 7-18 MG/DL Creatinine 1.61 H 0.60-1.30 MG/DL Estimat Glomerular Filtration Rate 34 BUN/Creatinine Ratio 17 Glucose Level 111 H 70-105 MG/DL Calcium Level 8.7 8.5-10.1 MG/DL Corrected Calcium 8.9 8.5-10.1 MG/DL Total Bilirubin 0.2 0.1-1.0 MG/DL Aspartate Amino Transf (AST/SGOT) 9 5-34 U/L Alanine Aminotransferase (ALT/SGPT) 9 0-55 U/L Alkaline Phosphatase 69 40-136 U/L C-Reactive Protein High Sensitivity 0.05 0.00-0.50 MG/DL Total Protein 6.0 L 6.4-8.2 GM/DL Albumin 3.7 3.2-4.5 GM/DL Amylase Level 85 25-125 U/L Lipase 153 H 8-78 U/L Serum Alcohol < 10 <10 MG/DL Urine Color YELLOW Urine Clarity SLIGHTLY CLOUDY Urine pH 5 5-9 Urine Specific [place] 1.015 L 1.016-1.022 Urine Protein 2+ H NEGATIVE Urine Glucose (UA) NEGATIVE NEGATIVE Urine Ketones NEGATIVE NEGATIVE Urine Nitrite NEGATIVE NEGATIVE Urine Bilirubin NEGATIVE NEGATIVE Urine Urobilinogen NORMAL NORMAL MG/DL Urine Leukocyte Esterase NEGATIVE NEGATIVE Urine RBC (Auto) 1+ H NEGATIVE Urine RBC 2-5 H /HPF Urine WBC 0-2 /HPF Urine Squamous Epithelial Cells 2-5 /HPF Urine Crystals NONE /LPF Urine Bacteria NEGATIVE /HPF Urine Casts NONE /LPF Urine Mucus NEGATIVE /LPF Urine Culture Indicated NO Urine Opiates Screen POSITIVE H NEGATIVE Urine Oxycodone Screen NEGATIVE NEGATIVE Urine Methadone Screen NEGATIVE NEGATIVE Urine Propoxyphene Screen NEGATIVE NEGATIVE Urine Barbiturates Screen NEGATIVE NEGATIVE Ur Tricyclic Antidepressants Screen NEGATIVE NEGATIVE Urine Phencyclidine Screen NEGATIVE NEGATIVE Urine Amphetamines Screen NEGATIVE NEGATIVE Urine Methamphetamines Screen NEGATIVE NEGATIVE Urine Benzodiazepines Screen NEGATIVE NEGATIVE Urine Cocaine Screen NEGATIVE NEGATIVE Urine Cannabinoids Screen POSITIVE H NEGATIVE My Orders Orders - STEFFEN JONES Saline Lock/Iv-Start (08/16/18 21:26) Amylase (08/16/18 21:26) Cbc With Automated Diff (08/16/18 21:26) Comprehensive Metabolic Panel (08/16/18 21:26) Hs C Reactive Protein (08/16/18 21:26) Lipase (08/16/18 21:26) Ua Culture If Indicated (08/16/18 21:26) Ondansetron Injection (Zofran Injectio (08/16/18 21:30) Fentanyl Injection (Sublimaze Injection (08/16/18 21:26) Ns Iv 1000 Ml (Sodium Chloride 0.9%) (08/16/18 21:26) Ct Abdomen/Pelvis Wo (08/16/18 21:38) Alcohol (08/16/18 22:13) Drug Screen Stat (Urine) (08/16/18 22:13) Methylnaltrexone Injection (Relistor Inj (08/16/18 23:15) Hydrocodone/Apap 5/325 Tablet (Lortab 5 (08/16/18 23:12) Medications Given in ED Current Medications Medications Dose Ordered Sig/Ely Route Start Time Stop Time Status Last Admin Dose Admin Methylnaltrexone Barre 12 mg ONCE ONCE SQ 08/16/18 23:15 08/16/18 23:17 DC 08/16/18 23:45 12 MG Ondansetron HCl 4 mg ONCE ONCE IVP 08/16/18 21:30 08/16/18 21:31 DC 08/16/18 22:23 4 MG Sodium Chloride 1,000 ml @ 0 mls/hr Q0M ONCE IV 08/16/18 21:26 08/16/18 21:30 DC 08/16/18 22:23 1,000 MLS/HR Vital Signs/I&O 08/16/18 21:21 Temp 96.0 Pulse 71 Resp 20 B/P (MAP) 108/62 (77) Pulse Ox 94 O2 Delivery Room Air Blood Pressure Mean: 77 Diagnostic Imaging Diagonstic Imaging: CT Plain Films/CT/US/NM/MRI: abdomen, pelvis Comments no acute findings per statrad report. Reviewed: Reviewed Night [facility] Study Departure Communication (Admissions) patient seen and evaluated. Initial labs and a ct abd/pelvis obtained. patient given 1 liter NS, 4 mg zofran, and 50 mcg fentanyl. all lab findings and diagnostic study findings were discussed with the patient. Plan for discharge to home. Patient was given an additional 50 g of fentanyl and 12 mg of Relistor or prior to dismissal. ED visit uneventful. Patient to follow-up with Dr. Morgan as an outpatient for a recheck. Patient case discussed with Dr. Ingram. Impression Primary Impression: Chronic pancreatitis Qualified Codes: K86.1 - Other chronic pancreatitis Additional Impression: Constipation Qualified Codes: K59.03 - Drug induced constipation Disposition: HOME, SELF-CARE Condition: Improved Departure-Patient Inst. Decision time for Depature: 23:04 Referrals: DEONNA MORGAN MD NO,LOCAL PHYSICIAN (PCP) Primary Care Physician Patient Instructions: Chronic Pancreatitis (DC), Constipation, Adult (DC) Add. Discharge Instructions: All discharge instructions reviewed with patient and/or family. Voiced understanding. Medications as instructed. Continue your usual home medications. Drink plenty of fluids. Clear liquid diet until symptoms improve , then increase diet slowly to a low-fat diet. Colace stool softener 100 mg by mouth twice daily for constipation. MiraLAX 17 g mixed with 8 ounces of fluids by mouth twice daily for 3 days, then at bedtime for constipation. Dulcolax 10 mg daily as needed for severe constipation. You may use a bottle of magnesium citrate for severe constipation if no improvement in symptoms after the above medications. Follow-up with your family practitioner for recheck and repeat labs as an outpatient this week. Call for appointment time Saturday. Return to the emergency department for worsened symptoms or any other concerns. Work/School Note: Local Medical Staff Listing Copy Copies To 1: DEONNA MORGAN MD, GRETCHEN L PA Aug 16, 2018 21:50
[2018-08-16 21:55] LABS: ALBUMIN 3.7 GM/DL (3.2-4.5); BILIRUBIN,TOTAL 0.2 MG/DL (0.1-1.0); CALCIUM 8.7 MG/DL (8.5-10.1); CREATININE SERUM 1.61 MG/DL (0.60-1.30); POTASSIUM 3.5 MMOL/L (3.6-5.0)
[2018-08-16 22:45] LABS: BILIRUBIN,URINE NEGATIVE (NEGATIVE); CLARITY,URINE SLIGHTLY CLOUDY; COLOR,URINE YELLOW; GLUCOSE, URINE (UA) NEGATIVE (NEGATIVE); KETONES,URINE NEGATIVE (NEGATIVE); LEUKOCYTE ESTERASE ,URINE NEGATIVE (NEGATIVE); NITRITE,URINE NEGATIVE (NEGATIVE); PH,URINE 5 (5-9); PROTEIN,URINE 2+ (NEGATIVE); UROBILINOGEN,URINE NORMAL (NORMAL)
[2018-08-16 22:53] LABS: BACTERIA,URINE NEGATIVE /HPF; WBC,URINE 0-2 /HPF
[2018-08-16 23:02] LABS: AMPHETAMINE SCREEN, URINE NEGATIVE (NEGATIVE); BARBITURATE SCREEN URINE NEGATIVE (NEGATIVE); BENZODIAZEPINES SCREEN URINE NEGATIVE (NEGATIVE); CANNABINOID SCREEN, URINE POSITIVE (NEGATIVE); COCAINE SCREEN URINE NEGATIVE (NEGATIVE); METHADONE STAT NEGATIVE (NEGATIVE); METHAMPHETAMINE SCREEN URINE S NEGATIVE (NEGATIVE); OPIATE SCREEN URINE POSITIVE (NEGATIVE); OXYCODONE STAT NEGATIVE (NEGATIVE); PROPOXYPHENE STAT NEGATIVE (NEGATIVE); TRICYCLIC ANTIDEPRESSANTS SCRE NEGATIVE (NEGATIVE)
[2018-08-16] MEDS ORDERED: HYDROcodone/APAP 5 MG/325 MG (LORTAB) TAB PO STA (23:12)
[2018-08-16] MEDS ORDERED: METHYLNALTREXONE 12 MG/0.6 ML (RELISTOR) VIAL SQ ONE (23:15)
--- NOTE | 2018-08-16 23:37 | Diagnostic Imaging Report ---
PROCEDURE: CT abdomen and pelvis without contrast. TECHNIQUE: Multiple contiguous axial images were obtained through the abdomen and pelvis without the use of intravenous contrast. INDICATION: Abdominal pain COMPARISON: 04/18/2018. FINDINGS: The visualized lung bases are clear. Cholecystectomy. The unenhanced liver, spleen, adrenal glands, and pancreas are unremarkable. The kidneys are unremarkable. Scattered vascular calcifications without aneurysmal dilatation of the abdominal aorta. Evidence of an prior surgical repair of the right anterior abdominal wall. The urinary bladder is unremarkable. The uterus is not visualized, likely surgically absent. No bowel obstruction or pneumatosis. No significant adenopathy, free air, or free fluid within the abdomen or pelvis. Scattered osseous degenerative changes without acute osseous abnormality. IMPRESSION: Stable appearing examination without acute abnormality. Cholecystectomy. Agree with preliminary interpretation. Dictated by: Dictated on workstation # [id number]
[2018-08-16 23:54] VITALS: BP 107/79
== END 2018-08-16 23:54 | disposition home or self-care (01) ==
LOC: EDUNIT# 21:21 → ER 21:25
DX: K86.1 Other chronic pancreatitis (principal); K59.00 Constipation, unspecified; J43.9 Emphysema, unspecified; J45.909 Unspecified asthma, uncomplicated; K21.9 Gastro-esophageal reflux disease without esophagitis; M81.0 Age-related osteoporosis without current pathological fracture; F41.9 Anxiety disorder, unspecified; F32.9 Major depressive disorder, single episode, unspecified; Z87.440 Personal history of urinary (tract) infections; Z86.73 Personal history of transient ischemic attack (TIA), and cerebral infarction without residual deficits; Z88.1 Allergy status to other antibiotic agents; Z88.6 Allergy status to analgesic agent; Z88.5 Allergy status to narcotic agent; Z79.51 Long term (current) use of inhaled steroids; Z90.710 Acquired absence of both cervix and uterus
CPT/HCPCS: 36415; 74176; 80053; 80306; 80320; 81000; 82150; 83690; 85025; 86141

== ENCOUNTER 2018-09-04 22:22 | Emergency (ER) | payer MEDICAID ==
[~2018-09-04] VITALS: Ht 154.9 cm; Wt 45.4 kg
[2018-09-04] MEDS ORDERED: RX-TRIMETH/SULFA. 160-800 MG (BACTRIM DS) TAB PPK#2 PO STA (23:11)
[2018-09-04] MEDS ORDERED: RX-GENTAMICIN 0.3% OP OINT 3.5 GM TUBE OP STA (23:11)
[2018-09-04] MEDS ORDERED: SULF1TAB35 PO (23:16)
[2018-09-04] MEDS ORDERED: GNT.3OO351 OS (23:16)
--- NOTE | 2018-09-04 23:16 | ED EENT ---
History of Present Illness General Stated Complaint: L EYE SWELLING Source: patient, other (EX- ( MARIA CORNELIUS )) History of Present Illness Date Seen by Provider: Sep 04, 2018 Time Seen by Provider: 22:56 Initial Comments PT ARRIVES VIA POV FROM HOME C/O PAIN , REDNESS AND SWELLING TO LEFT UPPER EYELID FOR 2-3 DAYS STATES SHE HAS HAD SOME DRIED DRAINAGE TO EYE AT TIMES NO KNOWN INJURY NO HISTORY OF SIMILAR STATES VISION IS A LITTLE BLURRY NO FEVER PT HAS HAD BILATERAL CATARACT SURGERY [address] MERRILL PCP: DR. MORGAN AT [facility] Allergies and Home Medications Allergies Coded Allergies: ofloxacin (Verified Allergy, Mild, 08/10/16) Penicillins (Verified Allergy, Unknown, Pt has received Ceftriaxone & Cefepime in the past w/o issue, 08/06/17) amoxicillin (Verified Allergy, Unknown, 08/10/16) clavulanic acid (Verified Allergy, Unknown, 08/10/16) promethazine (Verified Allergy, Unknown, 08/10/16) propoxyphene (Verified Allergy, Unknown, 08/10/16) ketorolac (Verified Adverse Reaction, Unknown, 11/08/17) tramadol (Verified Adverse Reaction, Unknown, 11/08/17) Home Medications Albuterol Sulfate 1 Puff Puff, 2 PUFF IH Q4H PRN for SHORTNESS OF BREATH, ( Reported) 1 PUFF = 90 MCG Budesonide/Formoterol Fumarate 10.2 Gm Hfa.aer.ad, 2 PUFF IH BID, (Reported) Cetirizine HCl 10 Mg Tablet, 10 MG PO DAILY, (Reported) Dicyclomine HCl 10 Mg Capsule, 10-20 MG PO QID PRN for CRAMPS, (Reported) Fluticasone Propionate 16 Gm [place].susp, 2 SPRAYS NS DAILY, (Reported) Gabapentin 300 Mg Capsule, 900 MG PO QID, (Reported) TAKES 3 (300MG) CAPUSLES Gentamicin Sulfate 3.5 Gm Oint...g., 0.5 INCH OS QID Prescribed by: LEIA STARKS on 09/04/18 8066 Lipase/Protease/Amylase 1 Each Capsule.dr, 2 CAP PO TIDWM, (Reported) Nitrofurantoin Monohyd/M-Cryst 100 Mg Capsule, 1 TAB PO BID . Prescribed by: JUAN C FARNCISCO on 04/18/182004 Ondansetron 8 Mg Tab.rapdis, 8 MG PO Q6H PRN for NAUSEA/VOMITING-1ST LINE, ( Reported) Ranitidine HCl 150 Mg Tablet, 150 MG PO BID, (Reported) Sulfamethoxazole/Trimethoprim 1 Each Tablet, 1 EACH PO BID Prescribed by: LEIA STARKS on 09/04/18 9319 Review of Systems Review of Systems Constitutional: no symptoms reported Eyes: See HPI Skin: see HPI Neurological: No Symptoms Reported Hematologic/Lymphatic: No Symptoms Reported Past Zinamhk-Zekfmm-Cxigoe Hx Patient Social History Alcohol Use: Regular Use (HEAVY DAILY USE BY HISTORY) Alcohol Beverage of Choice: Beer Recreational Drug Use: Yes (EXTENSIVE POLYSUBSTANCE ABUSE AND OVERDOSES, JUAN CARLOS RX MEDICATIONS) Drug of Choice: OXYCODONE Smoking Status: Current Everyday Smoker (1 PPD, PLUS CIGARS) Type Used: Cigars, Cigarettes 2nd Hand Smoke Exposure: No Recent Foreign Travel: No Contact w/Someone Who Travel: No Recent Hopitalizations: Yes Immunizations Up To Date Tetanus Booster (TDap): Unknown PED Vaccines UTD: No Date of Pneumonia Vaccine: Jul 26, 2009 Date of Influenza Vaccine: Sep 26, 2013 Seasonal Allergies Seasonal Allergies: No Past Medical History Surgeries: Yes (BILATERAL CATARACTS. 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 Sexually Transmitted Disease: No HIV/AIDS: No Genitourinary: Yes UTI-Chronic Gastrointestinal: Yes Gastroesophageal Reflux, Pancreatitis, Hiatal Hernia Musculoskeletal: Yes Amputee, Osteoporosis Endocrine: Yes HEENT: Yes Cataract Loss of Vision: Denies Hearing Impairment: Denies Cancer: No Psychosocial: Yes (POLYSUBSTANCE ABUSE) Anxiety, Depression Integumentary: No Blood Disorders: No Adverse Reaction/Blood Tranf: No Family Medical History Alzheimer's disease 19 FATHER 19 MOTHER Asthma 19 FATHER Completed stroke 19 FATHER Deafness or hearing loss 19 FATHER Dementia 19 FATHER Diabetes mellitus 19 FATHER 19 MOTHER Headache disorder 19 FATHER Hypertension 19 FATHER 19 MOTHER Myocardial infarction 19 FATHER 19 MOTHER Respiratory disorder 19 FATHER No Family History of: Kidney disease No Pertinent Family Hx, Heart Disease, COPD, Diabetes, Hypertension, Stroke Physical Exam Height, Weight, BMI Height: 5'1.00" Weight: 86lbs. 0.0oz. 39.799924kt; 17.2 BMI Method:Stated Progress/Results/Core Measures Results/Orders My Orders Orders - LEIA STARKS DO Rx-Trimeth/Sulfameth Ds Tab (Rx-Bactrim/ (09/04/18 23:11) Rx-Gentamicin Ophth Oint (Rx-Gentamicin (09/04/18 23:11) Departure Impression Primary Impression: Hordeolum of left upper eyelid Disposition: HOME, SELF-CARE Condition: Stable Departure-Patient Inst. Referrals: [facility] (PCP/Family) Primary Care Physician Patient Instructions: Stye (Hordeolum) Add. Discharge Instructions: MOIST HEAT TO AREA AT 20 MINUTE INTERVALS DO NOT PICK AT, POKE OR SQUEEZE THE AREA TYLENOL AND MOTRIN NEEDED FOR PAIN FOLLOW UP WITH YOUR DR IN 2-3 DAYS IF NO BETTER Scripts Gentamicin Sulfate (Gentak) 3.5 Gm Oint...g. 0.5 INCH OS QID, #3.5 TUBE Prov: LEIA STARKS DO 09/04/18 Sulfamethoxazole/Trimethoprim (Bactrim Ds Tablet) 1 Each Tablet 1 EACH PO BID, #20 TAB Prov: LEIA STARKS DO 09/04/18 LEIA STARKS DO Sep 04, 2018 23:16
[2018-09-04] MEDS ORDERED: RX-GENTAMICIN SULFATE 0.3% OP 5 ML BTL ONE (23:23)
[2018-09-04 23:30] VITALS: BP 132/99
== END 2018-09-04 23:30 | disposition home or self-care (01) ==
LOC: EDUNIT# 22:22 → ER 22:23
DX: H00.014 Hordeolum externum left upper eyelid (principal); J43.9 Emphysema, unspecified; M81.0 Age-related osteoporosis without current pathological fracture; F41.9 Anxiety disorder, unspecified; F32.9 Major depressive disorder, single episode, unspecified; K21.9 Gastro-esophageal reflux disease without esophagitis; F17.210 Nicotine dependence, cigarettes, uncomplicated; F19.10 Other psychoactive substance abuse, uncomplicated; Z87.440 Personal history of urinary (tract) infections; Z82.49 Family history of ischemic heart disease and other diseases of the circulatory system; Z86.73 Personal history of transient ischemic attack (TIA), and cerebral infarction without residual deficits; Z87.19 Personal history of other diseases of the digestive system; Z90.710 Acquired absence of both cervix and uterus; Z98.890 Other specified postprocedural states; Z88.0 Allergy status to penicillin; Z88.8 Allergy status to other drugs, medicaments and biological substances; Z88.4 Allergy status to anesthetic agent; Z88.6 Allergy status to analgesic agent; Z79.51 Long term (current) use of inhaled steroids
CPT/HCPCS: 99283

== ENCOUNTER 2018-10-05 15:15 | Observation (INO) | payer MEDICAID ==
[~2018-10-05] VITALS: Ht 154.9 cm; Wt 31.8 kg
[~2018-10-05 15:15] MED LIST changes: +GNT.3OO351 OS
--- NOTE | 2018-10-05 15:28 | ED Dyspnea ---
General Stated Complaint: SOB Source of Information: Patient Exam Limitations: No Limitations History of Present Illness Date Seen by Provider: Oct 05, 2018 Time Seen by Provider: 15:26 Initial Comments To ER per EMS from home with reports of a 3 to four-day history of increasing shortness of breath, productive cough and chills. She has known COPD. Timing/Duration: Other (3-4 days) Severity: Moderate Modifying Factors: Improves With Coughing Associated Symptoms: Cough, Wheezing Allergies and Home Medications Allergies Coded Allergies: ofloxacin (Verified Allergy, Mild, 08/10/16) Penicillins (Verified Allergy, Unknown, Pt has received Ceftriaxone & Cefepime in the past w/o issue, 08/06/17) amoxicillin (Verified Allergy, Unknown, 08/10/16) clavulanic acid (Verified Allergy, Unknown, 08/10/16) promethazine (Verified Allergy, Unknown, 08/10/16) propoxyphene (Verified Allergy, Unknown, 08/10/16) ketorolac (Verified Adverse Reaction, Unknown, 11/08/17) tramadol (Verified Adverse Reaction, Unknown, 11/08/17) Home Medications Albuterol Sulfate 1 Puff Puff, 2 PUFF IH Q4H PRN for SHORTNESS OF BREATH, ( Reported) 1 PUFF = 90 MCG Budesonide/Formoterol Fumarate 10.2 Gm Hfa.aer.ad, 2 PUFF IH BID, (Reported) Cetirizine HCl 10 Mg Tablet, 10 MG PO DAILY, (Reported) Dicyclomine HCl 10 Mg Capsule, 10-20 MG PO QID PRN for CRAMPS, (Reported) Fluticasone Propionate 16 Gm [place].susp, 2 SPRAYS NS DAILY, (Reported) Gabapentin 300 Mg Capsule, 900 MG PO QID, (Reported) TAKES 3 (300MG) CAPUSLES Gentamicin Sulfate 3.5 Gm Oint...g., 0.5 INCH OS QID Prescribed by: LEIA STARKS on 09/04/18 1012 Lipase/Protease/Amylase 1 Each Capsule.dr, 2 CAP PO TIDWM, (Reported) Nitrofurantoin Monohyd/M-Cryst 100 Mg Capsule, 1 TAB PO BID . Prescribed by: JUAN C FRANCISCO on 04/18/182004 Ondansetron 8 Mg Tab.rapdis, 8 MG PO Q6H PRN for NAUSEA/VOMITING-1ST LINE, ( Reported) Ranitidine HCl 150 Mg Tablet, 150 MG PO BID, (Reported) Sulfamethoxazole/Trimethoprim 1 Each Tablet, 1 EACH PO BID Prescribed by: LEIA STARKS on 09/04/18 4645 Patient Home Medication List Home Medication List Reviewed: Yes Review of Systems Review of Systems Constitutional: see HPI, chills EENTM: see HPI Respiratory: see HPI, cough, short of breath, wheezing Genitourinary: no symptoms reported Musculoskeletal: no symptoms reported Skin: no symptoms reported Psychiatric/Neurological: No Symptoms Reported Endocrine: No Symptoms Reported Past Hmbfadw-Etwjip-Ptjshp Hx Patient Social History Alcohol Beverage of Choice: Beer Drug of Choice: RX MEDICATIONS, JUAN CARLOS OXYCODONE/OPIATES & BENZODIAZEPINES, WELL ILLICIT Type Used: Cigars, Cigarettes 2nd Hand Smoke Exposure: No Recent Hopitalizations: Yes Immunizations Up To Date Tetanus Booster (TDap): Unknown PED Vaccines UTD: No Date of Pneumonia Vaccine: Jul 26, 2009 Date of Influenza Vaccine: Sep 26, 2013 Seasonal Allergies Seasonal Allergies: No Past Medical History Surgeries: Yes Abdominal, Amputation, Eye Surgery, Gallbladder, Hysterectomy, Oophorectomy, Orthopedic Respiratory: Yes (ASPIRATINON AND ARDS) Asthma, Pneumonia, Chronic Bronchitis, COPD, Emphysema Currently Using CPAP: No Currently Using BIPAP: No Cardiac: Yes Hypertension Neurological: Yes (CHRONIC PHANTOM LEG PAIN, TREMORS) Headaches /Migraines, Stroke 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 Disorders: Yes 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 LAST GREASER History: Hysterectomy Sexually Transmitted Disease: No HIV/AIDS: No Genitourinary: Yes (CHRONIC RENAL INSUFFICIENCY) UTI-Chronic Gastrointestinal: Yes (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) Gastroesophageal Reflux, Pancreatitis, Hiatal Hernia, Ulcer, Gall Bladder Disease Musculoskeletal: Yes Amputee, Osteoporosis, Fractures Endocrine: Yes HEENT: Yes (EDENTULOUS; BILATERAL CATARACT SURGERY) Cataract Loss of Vision: Denies Hearing Impairment: Denies Cancer: No Psychosocial: Yes Anxiety, Suicide Attempts, Depression Integumentary: No Blood Disorders: No Adverse Reaction/Blood Tranf: No Family Medical History Alzheimer's disease 19 FATHER 19 MOTHER Asthma 19 FATHER Completed stroke 19 FATHER Deafness or hearing loss 19 FATHER Dementia 19 FATHER Diabetes mellitus 19 FATHER 19 MOTHER Headache disorder 19 FATHER Hypertension 19 FATHER 19 MOTHER Myocardial infarction 19 FATHER 19 MOTHER Respiratory disorder 19 FATHER No Family History of: Kidney disease No Pertinent Family Hx, Heart Disease, COPD, Diabetes, Hypertension, Stroke Physical Exam Vital Signs Vital Signs - First Documented 10/05/18 15:30 Temp 98.8 Pulse 80 Resp 22 B/P (MAP) 108/83 (91) Pulse Ox 94 O2 Delivery Nasal Cannula O2 Flow Rate 2.00 Capillary Refill : Height, Weight, BMI Height: 5'1.00" Weight: 100lbs. 0oz. 45.642654ta; 17.2 BMI Method:Stated General Appearance: No Apparent Distress, WD/WN, Chronically ill, Other ( oxygen saturation 98% on nonrebreather. She was transitioned to 2 L of oxygen via nasal cannula. She is a bit wheezy but not terribly so a DuoNeb was ordered. ) HEENT: PERRL/EOMI, TMs Normal Neck: Full Range of Motion, Normal Inspection Respiratory: Normal Breath Sounds, No Accessory Muscle Use, No Respiratory Distress Cardiovascular: Regular Rate, Rhythm, Normal Peripheral Pulses Gastrointestinal: Non Tender, Soft Neurologic/Psychiatric: Alert, Oriented x3 Skin: Normal Color, Warm/Dry Progress/Results/Core Measures Results/Orders Lab Results Laboratory Tests Test 10/05/18 15:23 10/05/18 15:43 10/05/18 17:20 Range/Units White Blood Count 10.1 4.3-11.0 10^3/uL Red Blood Count 4.00 L 4.35-5.85 10^6/uL Hemoglobin 13.4 11.5-16.0 G/DL Hematocrit 44 35-52 % Mean Corpuscular Volume 111 H 80-99 FL Mean Corpuscular Hemoglobin 34 25-34 PG Mean Corpuscular Hemoglobin Concent 30 L 32-36 G/DL Red Cell Distribution Width 15.5 H 10.0-14.5 % Platelet Count 185 130-400 10^3/uL Mean Platelet Volume 10.6 H 7.4-10.4 FL Neutrophils (%) (Auto) 72 42-75 % Lymphocytes (%) (Auto) 12 12-44 % Monocytes (%) (Auto) 15 H 0-12 % Eosinophils (%) (Auto) 1 0-10 % Basophils (%) (Auto) 1 0-10 % Neutrophils # (Auto) 7.2 1.8-7.8 X 10^3 Lymphocytes # (Auto) 1.2 1.0-4.0 X 10^3 Monocytes # (Auto) 1.5 H 0.0-1.0 X 10^3 Eosinophils # (Auto) 0.1 0.0-0.3 10^3/uL Basophils # (Auto) 0.1 0.0-0.1 10^3/uL Sodium Level 140 135-145 MMOL/L Potassium Level 4.0 3.6-5.0 MMOL/L Chloride Level 110 H 98-107 MMOL/L Carbon Dioxide Level 17 L 21-32 MMOL/L Anion Gap 13 5-14 MMOL/L Blood Urea Nitrogen 21 H 7-18 MG/DL Creatinine 1.34 H 0.60-1.30 MG/DL Estimat Glomerular Filtration Rate 42 BUN/Creatinine Ratio 16 Glucose Level 119 H 70-105 MG/DL Calcium Level 9.3 8.5-10.1 MG/DL Corrected Calcium 9.1 8.5-10.1 MG/DL Total Bilirubin 0.2 0.1-1.0 MG/DL Aspartate Amino Transf (AST/SGOT) 14 5-34 U/L Alanine Aminotransferase (ALT/SGPT) 9 0-55 U/L Alkaline Phosphatase 85 40-136 U/L Troponin I < 0.028 <0.028 NG/ML B-Type Natriuretic Peptide 32.8 <100.0 PG/ML Total Protein 7.7 6.4-8.2 GM/DL Albumin 4.3 3.2-4.5 GM/DL Blood Gas Puncture Site RT RAD RT RAD Blood Gas Patient Temperature 98.8 97.9 Arterial Blood pH 7.25 *L 7.21 *L 7.37-7.43 Arterial Blood Partial Pressure CO2 43 43 35-45 MMHG Arterial Blood Partial Pressure O2 46 L 71 L 79-93 MMHG Arterial Blood HCO3 18 L 17 *L 23-27 MMOL/L Arterial Blood Total CO2 19.2 L 18.0 L 21.0-31.0 MMOL/L Arterial Blood Oxygen Saturation 85 L 95 94-100 % Arterial Blood Base Excess -8.0 L -9.9 L -2.5-2.5 MMOL/L Marino Test YES-POS YES-POS Blood Gas Ventilator Setting NO NO Blood Gas Inspired Oxygen 2L 2L My Orders Orders - JUAN C FRANCISCO APRN Cbc With Automated Diff (10/05/18 15:22) Troponin I (10/05/18 15:22) BNP (10/05/18 15:22) Comprehensive Metabolic Panel (10/05/18 15:22) Iv [place]-Insert (Order) (10/05/18 15:22) Albuterol/Ipra Inhalation Soln (Duoneb I (10/05/18 15:30) Svn Small Volume Nebulizer (10/05/18 15:22) Arterial Blood Gas (10/05/18 15:22) Methylprednisolone Sod Succ (Solu-Medrol (10/05/18 15:30) Chest 1 View, Ap/Pa Only (10/05/18 15:22) Ns Iv 1000 Ml (Sodium Chloride 0.9%) (10/05/18 16:00) Acetaminophen Tablet/Caplet (Tylenol T (10/05/18 16:00) Lactated Ringers (Lr 1000 Ml Iv Solution (10/05/18 16:00) Blood Culture (10/05/18 15:23) Arterial Blood Gas (10/05/18 17:22) Medications Given in ED Current Medications Medications Dose Ordered Sig/Ely Route Start Time Stop Time Status Last Admin Dose Admin Acetaminophen 650 mg ONCE ONCE PO 10/05/18 16:00 10/05/18 16:01 DC 10/05/18 16:08 650 MG Albuterol/ Ipratropium 3 ml ONCE ONCE INH 10/05/18 15:30 10/05/18 15:31 DC 10/05/18 15:42 3 ML Methylprednisolone Sodium Succinate 125 mg ONCE ONCE IVP 10/05/18 15:30 10/05/18 15:31 DC 10/05/18 16:07 125 MG Vital Signs/I&O 10/05/18 10/05/18 15:30 15:44 Temp 98.8 Pulse 80 Resp 22 B/P (MAP) 108/83 (91) Pulse Ox 94 93 O2 Delivery Nasal Cannula Nasal Cannula O2 Flow Rate 2.00 2.00 Diagnostic Imaging Diagonstic Imaging: Xray Plain Films/CT/US/NM/MRI: chest Comments NAME: SOPHIE CORNELIUS MED REC#: [id number] PT STATUS: REG ER : 1970 PHYSICIAN: JUAN C FRANCISCO APRN ADMIT DATE: 10/05/18/ER Draft Date of Exam:10/05/18 CHEST 1 VIEW, AP/PA ONLY INDICATION: Cough. COMPARISON: 03/10/2018. EXAMINATION: Single view of the chest was obtained. FINDINGS: Air trapping and COPD as chronic findings are present. The heart size is within normal limits. No focal consolidation, effusion or pneumothorax. IMPRESSION: Air trapping and COPD. Chronic upper limits heart size, stable. No focal infiltrate or acute pleural abnormality. Dictated on workstation # [id number] Dict: 10/05/18 1607 Trans: 10/05/18 1613 [facility] [id number] Interpreted by: REGINA HOOPER Electronically signed by: Departure Communication (Admissions) Time/Spoke to Admitting Phy: 18:16 Discussed the case with Dr. Pedersen. Given the worsening [place] acidosis, we will admit the patient, oral sodium bicarbonate supplementation, recheck labs in the morning. Impression Primary Impression: Chronic obstruct airways disease Qualified Codes: J44.1 - Chronic obstructive pulmonary disease with (acute) exacerbation Additional Impression: Metabolic acidosis Disposition: ADMITTED INPATIENT Condition: Stable Admissions Decision to Admit Reason: Admit from ER (General) Decision to Admit/Date: Oct 05, 2018 Time/Decision to Admit Time: 18:17 Departure-Patient Inst. Referrals: [facility] (PCP/Family) Primary Care Physician JUANC FRANCISCO APRN Oct 05, 2018 15:28
[2018-10-05] MEDS ORDERED: RT-ALBUTEROL/IPRATROPIUM 3 ML (DUONEB) VIAL INH ONE (15:30)
[2018-10-05] MEDS ORDERED: methylPREDNISolone 125 MG (Solu-MEDROL) VIAL IVP ONE (15:30)
[2018-10-05 15:36] LABS: BASOPHILS # (AUTO) 0.1 10^3/uL (0.0-0.1); BASOPHILS % (AUTO) 1 % (0-10); EOSINOPHILS # (AUTO) 0.1 10^3/uL (0.0-0.3); EOSINOPHILS % (AUTO) 1 % (0-10); HEMATOCRIT 44 % (35-52); HEMOGLOBIN 13.4 G/DL (11.5-16.0); LYMPHOCYTES # (AUTO) 1.2 X 10^3 (1.0-4.0); LYMPHOCYTES % (AUTO) 12 % (12-44); MEAN CORPUSCULAR HEMOGLOBIN 34 PG (25-34); MEAN CORPUSCULAR HGB CONC 30 G/DL (32-36); MEAN CORPUSCULAR VOLUME 111 FL (80-99); MEAN PLATELET VOLUME 10.6 FL (7.4-10.4); MONOCYTES # (AUTO) 1.5 X 10^3 (0.0-1.0); MONOCYTES % (AUTO) 15 % (0-12); NEUTROPHILS # (AUTO) 7.2 X 10^3 (1.8-7.8); NEUTROPHILS % (AUTO) 72 % (42-75); PLATELET COUNT 185 10^3/uL (130-400); RED CELL DISTRIBUTION WIDTH 15.5 % (10.0-14.5); WHITE BLOOD COUNT 10.1 10^3/uL (4.3-11.0)
[2018-10-05 15:48] LABS: ABG OXYGEN SATURATION 85 % (94-100); ABG PCO2 43 MMHG (35-45); ABG PO2 46 MMHG (79-93); ABG TCO2 19.2 MMOL/L (21.0-31.0)
[2018-10-05 15:49] LABS: ABG PH 7.25 (7.37-7.43); ALLENS TEST YES-POS; INSPIRED O2 2L; PATIENT TEMP 98.8; VENTILATOR NO
[2018-10-05 15:59] LABS: ALANINE AMINOTRANSFERASE 9 U/L (0-55); ALBUMIN 4.3 GM/DL (3.2-4.5); ALKALINE PHOSPHATASE 85 U/L (40-136); BILIRUBIN,TOTAL 0.2 MG/DL (0.1-1.0); BUN/CREATININE RATIO 16; CALCIUM 9.3 MG/DL (8.5-10.1); CARBON DIOXIDE 17 MMOL/L (21-32); CHLORIDE 110 MMOL/L (98-107); CREATININE SERUM 1.34 MG/DL (0.60-1.30); GFR ESTIMATED 42; GLUCOSE 119 MG/DL (70-105); SODIUM 140 MMOL/L (135-145); TOTAL PROTEIN 7.7 GM/DL (6.4-8.2)
[2018-10-05] MEDS ORDERED: LACTATED RINGERS 1,000 ML IV SCH (16:00)
[2018-10-05] MEDS ORDERED: ACETAMINOPHEN 325 MG TABLET PO ONE (16:00)
[2018-10-05] MEDS ORDERED: NS IV 1000 ML 1,000 ML IV SCH (16:00)
--- NOTE | 2018-10-05 16:14 | Diagnostic Imaging Report ---
INDICATION: Cough. COMPARISON: 03/10/2018. EXAMINATION: Single view of the chest was obtained. FINDINGS: Air trapping and COPD as chronic findings are present. The heart size is within normal limits. No focal consolidation, effusion or pneumothorax. IMPRESSION: Air trapping and COPD. Chronic upper limits heart size, stable. No focal infiltrate or acute pleural abnormality. Dictated by: Dictated on workstation # [id number]
[2018-10-05 17:29] LABS: ABG BASE EXCESS -9.9 MMOL/L (-2.5-2.5); ABG OXYGEN SATURATION 95 % (94-100); ABG PCO2 43 MMHG (35-45); ABG PO2 71 MMHG (79-93)
[2018-10-05 17:30] LABS: ABG PH 7.21 (7.37-7.43)
[2018-10-05 17:31] LABS: ALLENS TEST YES-POS; INSPIRED O2 2L; VENTILATOR NO
[2018-10-05 17:32] LABS: PATIENT TEMP 97.9
--- OUTSIDE RECORDS SUMMARY | 2018-10-05 18:50 | XMS REPORT | Clinical Summary ---
Author Author [facility] Organization [facility] Address Unknown Phone Unavailable Care Team Providers Care Mixer And Scaler Name Role Phone Mi Joseph RN Unavailable [...] in the Health Information Management department at [phone] for further assistance in locating additional records.[facility] Allergies Comments Active Allergy Reactions Severity Noted [...] Results Not on filefrom Last 3 Months Advance Directives Patient has advance care planning documents, and code status on file. For more information, please contact: [facility] [address] [place] [address] Date Inactivated Comments Code Status Date Activated 12/10/2014 11:44 PM Full Code 12/10/2014 6:01 PM Provider has discussed Code Status No, discussion not w/Patient or Family? necessary based on Dx
[2018-10-05 19:35] VITALS: BP 119/71
--- NOTE | 2018-10-05 19:35 | NUR ---
RECEIVED REPORT FROM CHALO IN ED. PT TO ROOM AT 1935. SOPHIE CORNELIUS admitted to room 410-1, with an admitting diagnosis of copd exacerbation and metabolic acidosis, on 10/05/18 from ED via stretcher, accompanied by staff.SOPHIE CORNELIUS introduced to surroundings, call light, bed controls, phone, TV, temperature control, lights, meal times, smoking policy, visitor policy, side rail policy, bathrooms and showers. Patient Rights given to patient in the handbook. SOPHIE CORNELIUS verbalizes understanding that [facility] is not responsible for the loss or damage to any personal effects or valuables that are kept in the patients posession during their hospitalization. SOPHIE CORNELIUS verbalizes understanding of Interdisciplinary Patient Education. Patient and/or family were informed about the Rapid Response Team and its purpose.
--- NOTE | 2018-10-05 20:30 | NUR ---
2015-PT COMPLAINING PAIN AND STATES THE TYLENOL THAT WAS GIVEN TO HER IN ED IS NOT HELPING AND USUALLY THE ONLY THING THAT WORKS FOR HER PAIN IS HYDROCODONE. PT ALSO STATED SHE WANTS A NICOTINE PATCH AND NEEDS HER GABAPENTIN AND RANTIDINE RESTARTED TONIGHT. 2030- SPOKE WITH DR. CONDE AND INFORMED HER OF PTS WISHES. TELEPHONE ORDERS RECEIVED TO CONTINUE TYLENOL ONLY, 42MG NICOTINE PATCH OKAY, GABAPENTIN 900MG QHS, AND RANITIDINE 150MG BID.
[2018-10-05] MEDS ORDERED: NON-FORMULARY MEDICATION 1 EA EA (Ranitidine HCl 150 MG) PO SCH (21:00)
[2018-10-05] MEDS ORDERED: GABAPENTIN 600 MG (NEURONTIN) TAB PO SCH (21:00)
[2018-10-05] MEDS: NICOTINE 21 MG (NICODERM) PATCH TD SCH (21:35)
[2018-10-05] MEDS: SODIUM BICARBONATE 650 MG TABLET (NON-FORMULARY) PO SCH (21:37)
[2018-10-05] MEDS: FAMOTIDINE 20 MG (PEPCID) TABLET PO SCH (21:37)
[2018-10-05] MEDS: ACETAMINOPHEN 325 MG TABLET PO PRN (21:38)
[2018-10-05] MEDS: LACTATED RINGERS 1,000 ML IV SCH (21:39)
[2018-10-05 22:03] VITALS: BP 119/71
[2018-10-05] MEDS ORDERED: RT-ALBUTEROL SULF 2.5 MG/3 ML PRE-MIX VIAL ONE (22:41)
[2018-10-05] MEDS: methylPREDNISolone 125 MG (Solu-MEDROL) VIAL IV SCH (22:56)
--- NOTE | 2018-10-05 23:00 | NUR ---
2137-I GAVE PT HER ESPERANZA DOSE OF GABAPENTIN AND INFORMED HER THAT DR. CONDE SWITCHED HER GABAPENTIN TO 900MG QHS ONLY. PT STATED THERE WAS NO WAY SHE COULD ONLY TAKE 900MG QHS. I EDUCATED PT ON HER DECREASED KIDNEY FUNCTION AND THE PROBLEMS IT CAN CAUSE IF WE GIVE HER TOO MUCH MEDICATION. PT AGREED SHE WOULD TALK TO DR. CONDE IN THE AM. ON ASSESSMENT OF PT, I PULLED DOWN THE COVERS TO LOOK AT PTS LEGS AND NOTICIED A PILL BOTTLE STUCK BETWEEN HER LEGS. I EDUCATED PT THAT PER HOSPITAL POLICY AND LIABILITY REASONS I NEEDED TO PUT PTS MEDICATION IN OUR LOCK BOX AND SHE COULD HAVE IT BACK ON DC. PT STATED "THATS NOT MEDICATION, THATS CANDY". I LET PT KNOW THAT EVEN IF IT WAS CANDY I HAD NO WAY OF KNOWING WHAT WAS IN THE BOTTLE AND THAT IT STILL NEEDED TO BE LOCKED IN OUR LOCK BOX. PT STARTED GETTING VERY ANXIOUS AND RAISING HER VOICE STATING "THERE IS ABSOLUTELY NO WAY I CAN GO ALL NIGHT AND MORNING WITHOUT MY GABAPENTIN". I EDUCATED PT MULTIPLE TIMES ON WHY WE COULD NOT LET HER KEEP HER MEDICATION WITH HER. PT THEN STATED "IM NOT GIVING YOU MY GABAPENTIN, THERE IS ABSOLUTELY NO WAY I CAN GO ALL NIGHT WITHOUT MY MEDICATION OR PAIN MEDICATION". I INFORMED PT THAT I WOULD LET THE DOCTOR KNOW. 2205- FLAKER TENDER TAZ NOTIFIED. 2209- DR. CONDE INFORMED OF ABOVE SITUATION. RECEIVED TELEPHONE ORDERS TO CHANGE GABAPENTIN TO 700MG BID AND PT COULD ONLY HAVE TYLENOL FOR PAIN. 2219- SPOKE WITH PT ABOUT THE CHANGE. PT OKAY WITH THIS CHANGE AND STATES " I WILL GIVE MY GABAPENTIN TO MY IN THE AM. 2229- FLAKER TENDER SPOKE WITH PT. PT SIGNED LIABILITY WAIVER AND STATED SHE WOULD NOT TAKE ANY OF HER HOME MEDICATION. WAIVER PLACED ON CHART.
[2018-10-05 23:44] VITALS: BP 119/71
[2018-10-06 00:58] VITALS: BP 154/98
[2018-10-06] MEDS: ACETAMINOPHEN 325 MG TABLET PO PRN ×2 (03:37→21:20)
[2018-10-06 04:53] VITALS: BP 146/93
[2018-10-06] MEDS: LACTATED RINGERS 1,000 ML IV SCH (06:05)
[2018-10-06] MEDS: methylPREDNISolone 125 MG (Solu-MEDROL) VIAL IV SCH ×3 (06:06→22:14)
[2018-10-06 06:08] LABS: BASOPHILS % (AUTO) 0 % (0-10); EOSINOPHILS % (AUTO) 0 % (0-10); HEMATOCRIT 36 % (35-52); HEMOGLOBIN 10.8 G/DL (11.5-16.0); LYMPHOCYTES # (AUTO) 0.3 X 10^3 (1.0-4.0); LYMPHOCYTES % (AUTO) 8 % (12-44); MEAN CORPUSCULAR HEMOGLOBIN 33 PG (25-34); MEAN CORPUSCULAR HGB CONC 30 G/DL (32-36); MEAN CORPUSCULAR VOLUME 110 FL (80-99); MEAN PLATELET VOLUME 10.4 FL (7.4-10.4); MONOCYTES # (AUTO) 0.1 X 10^3 (0.0-1.0); MONOCYTES % (AUTO) 2 % (0-12); NEUTROPHILS # (AUTO) 4.1 X 10^3 (1.8-7.8); NEUTROPHILS % (AUTO) 91 % (42-75); PLATELET COUNT 171 10^3/uL (130-400); RED CELL DISTRIBUTION WIDTH 15.5 % (10.0-14.5); WHITE BLOOD COUNT 4.6 10^3/uL (4.3-11.0)
[2018-10-06 06:27] LABS: CALCIUM 8.6 MG/DL (8.5-10.1); CREATININE SERUM 1.18 MG/DL (0.60-1.30)
[2018-10-06] MEDS: RT-ALBUTEROL SULF 2.5 MG/3 ML PRE-MIX VIAL INH SCH ×6 (07:20→22:18)
[2018-10-06 07:25] LABS: ABG BASE EXCESS -5.1 MMOL/L (-2.5-2.5); ABG OXYGEN SATURATION 91 % (94-100); ABG PCO2 38 MMHG (35-45); ABG PO2 56 MMHG (79-93); ABG TCO2 21.2 MMOL/L (21.0-31.0)
[2018-10-06 07:27] LABS: ABG PH 7.33 (7.37-7.43)
[2018-10-06 07:28] LABS: ALLENS TEST POSITIVE; INSPIRED O2 2.5 L; PATIENT TEMP 96.2; VENTILATOR NO
[2018-10-06 08:00] VITALS: BP 146/82
[2018-10-06] MEDS ORDERED: RT-ADVAIR HFA 115/21 MCG PER PUFF IH SCH (08:00)
[2018-10-06] MEDS ORDERED: FLU QUADRIvalent (5+ YOA) 2018-2019 (AFLURIA) 0.5 ML IM ONE ×2 (08:00→11:47)
--- NOTE | 2018-10-06 08:04 | NUR ---
0727- received critical result [id number]-[phone]. 0732-informed dr. roche of critical results. pt also asked for cough drops or chloraseptic spray. telephone orders received for chlorseptic spray.
[2018-10-06] MEDS ORDERED: CHLORASEPTIC SPRAY 177 ML LIQUID MC PRN (08:15)
[2018-10-06] MEDS ORDERED: LIPA1CAP PO (08:46)
--- NOTE | 2018-10-06 08:48 | History & Physical-Hospitalist ---
ELVIS NERI DO 10/06/18 0848: History of Present Illness HPI/Chief Complaint Chief complaint: shortness of breath HPI: This is a 48yoWF with severe COPD and continued smoking and history of chronic pain dependency on narcotics who presented to the ER with shortness of breath and wheezing found to have acute on chronic respiratory failure. Pt reports she wants a CPAP so I have consulted Dr. Delgadillo to set that up. Pt does have home oxygen all the time but she doesn't use it all the time. She had a nebulizer machine that broke so I have already set that up for discharge once she goes home she will get a new nebulizer machine. We will discontinue Telemetry. We will continue IV steroids and monitor closely. I have restarted all of her home medications. We have talked about narcotics which she is asking for constantly. 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 Patients Allergies have been reviewed. Allergies Allergies Coded Allergies ofloxacin (Verified Allergy, Mild, 08/10/16) Penicillins (Verified Allergy, Unknown, Pt has received Ceftriaxone & Cefepime in the past w/o issue, 08/06/17) amoxicillin (Verified Allergy, Unknown, 08/10/16) clavulanic acid (Verified Allergy, Unknown, 08/10/16) promethazine (Verified Allergy, Unknown, 08/10/16) propoxyphene (Verified Allergy, Unknown, 08/10/16) ketorolac (Verified Adverse Reaction, Unknown, 11/08/17) tramadol (Verified Adverse Reaction, Unknown, 11/08/17) Past Mqcgjxg-Mkhsvt-Meczfo Hx Past Med/Social Hx: Reviewed Nursing Past Med/Soc Hx, Reviewed and Corrections made Patient Social History Employed/Student: unemployed Alcohol Use: Occasionally Uses Number of Drinks Today: AA Alcohol Beverage of Choice: Beer Recreational Drug Use: Yes (ETOH- NOT FOR LAST SIX MONTHS) Drug of Choice: RX MEDICATIONS, JUAN CARLOS OXYCODONE/OPIATES & BENZODIAZEPINES, WELL ILLICIT Smoking Status: Current Everyday Smoker Type Used: Cigars, Cigarettes 2nd Hand Smoke Exposure: No Recent Foreign Travel: No Contact w/other who traveled: No Recent Hopitalizations: Yes Recent Infectious Disease Expo: No Immunizations Up To Date Tetanus Booster (TDap): Unknown Pediatric: No Date of Pneumonia Vaccine: Jul 26, 2009 Date of Influenza Vaccine: Sep 26, 2013 Seasonal Allergies Seasonal Allergies: No Past Medical History Surgeries: Abdominal, Amputation, Eye Surgery, Gallbladder, Hysterectomy, Oophorectomy, Orthopedic Respiratory: COPD, Emphysema, Pneumonia Currently Using CPAP: No Currently Using BIPAP: No Cardiac: Hypertension Neurological: Headaches /Migraines, Stroke 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: Yes Sexually Transmitted Disease: No HIV/AIDS: No 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 Hysterectomy Genitourinary: UTI-Chronic Gastrointestinal: Gastroesophageal Reflux, Pancreatitis, Hiatal Hernia, Ulcer, Gall Bladder Disease Musculoskeletal: Amputee, Osteoporosis, Fractures HEENT: Cataract Loss of Vision: Denies Hearing Impairment: Denies Psychosocial: Anxiety, Suicide Attempts, Depression History of Blood Disorders: No Adverse Reaction to Blood Tyler: No Family History Alzheimer's disease 19 FATHER 19 MOTHER Asthma 19 FATHER Completed stroke 19 FATHER Deafness or hearing loss 19 FATHER Dementia 19 FATHER Diabetes mellitus 19 FATHER 19 MOTHER Headache disorder 19 FATHER Hypertension 19 FATHER 19 MOTHER Myocardial infarction 19 FATHER 19 MOTHER Respiratory disorder 19 FATHER No Family History of: Kidney disease No Pertinent Family Hx, Heart Disease, COPD, Diabetes, Hypertension, Stroke Review of Systems Constitutional: see HPI, weakness EENTM: no symptoms reported Respiratory: cough, dyspnea on exertion, short of breath, wheezing Cardiovascular: no symptoms reported Gastrointestinal: no symptoms reported Genitourinary: no symptoms reported Musculoskeletal: no symptoms reported Skin: no symptoms reported Psychiatric/Neurological: No Symptoms Reported All Other Systems Reviewed Negative Unless Noted: Yes Physical Exam Physical Exam Vital Signs Vital Signs - First Documented 10/05/18 10/05/18 15:30 23:44 Temp 98.8 Pulse 80 Resp 22 B/P (MAP) 108/83 (91) Pulse Ox 94 O2 Delivery Nasal Cannula O2 Flow Rate 2.00 FiO2 28 Capillary Refill : Less Than 3 Seconds Height, Weight, BMI Height: 5'1.00" Weight: 70lbs. 4.0oz. 31.722487aq; 13.7 BMI Method:Estimated General Appearance: No Apparent Distress, WD/WN, Chronically ill, Thin, Other ( oxygen saturation 98% on nonrebreather. She was transitioned to 2 L of oxygen via nasal cannula. She is a bit wheezy but not terribly so a DuoNeb was ordered. ) HEENT: PERRL/EOMI, TMs Normal Neck: Full Range of Motion, Normal Inspection Respiratory: Normal Breath Sounds, Accessory Muscle Use, Crackles, Expiration, Wheezing Cardiovascular: Regular Rate, Rhythm, Normal Peripheral Pulses Gastrointestinal: Non Tender, Soft Neurologic/Psychiatric: Alert, Oriented x3, No Motor/Sensory Deficits, Normal Mood/Affect Skin: Normal Color, Warm/Dry Results Results/Procedures Labs Laboratory Tests 10/05/18 15:23 10/06/18 05:40 Patient resulted labs reviewed. Assessment/Plan Admission Diagnosis AECOPD Chronic pancreatitis Hypoxia Chronic pain syndrome Plan: Consult Dr Delgadillo O2 biPAP Nebs Neb machine at [place] Admission Status: Inpatient Order (span 2 midnights) Reason for Inpatient Admission: Sevre COPD with exacerbation will require 3 days Diagnosis/Problems Diagnosis/Problems (1) COPD (chronic obstructive pulmonary disease) Status: Acute Qualifiers: COPD type: COPD with acute exacerbation Qualified Codes: J44.1 - Chronic obstructive pulmonary disease with (acute) exacerbation (2) Hypoxia Onset Date: 08/04/2014 Status: Acute (3) Metabolic acidosis Status: Acute (4) Tobacco use Status: Chronic (5) Peripheral vascular disease Status: Chronic (6) Chronic pancreatitis Status: Chronic Qualifiers: Pancreatitis type: unspecified pancreatitis type Qualified Codes: K86.1 - Other chronic pancreatitis Clinical Quality Measures DVT/VTE Risk/Contraindication: Risk Factor Score Per Nursin RFS Level Per Nursing on Admit: 4+=Very High KAYE GIRON MEDICAL STUDENT 10/06/18 1049: History of Present Illness HPI/Chief Complaint CC: Increased dyspnea HPI: This is a 66 yo white female who presented to the ER via EMS from home c/o increased dyspnea, productive cough, and chills at home onset 3-4 days ago. She is also complaining of pleuritic chest pain. She is on oxygen at home. She also reports she had been seen at [facility] in the last month and they had discussed getting her CPAP to wear at night, but she never received the CPAP. She continues to smoke a PPD. Pt was last seen at [facility] in February 2018 for an accidental overdose of oxycodone and required Narcan. Pt denies current SI. Pt has multiple comorbidities including chronic pancreatitis and COPD. Source: patient Exam Limitations: no limitations Home Medications & Allergies Home Medications Active Scripts Medications Dose Route/Sig Max Daily Dose Days Date Category Dose Instructions Ranitidine HCl 150 Mg Tablet 150 Mg PO BID 03/10/18 Reported Creon 12,000 Units Capsule (Lipase/Protease/Amylase) 1 Each Capsule.dr 2 Cap PO TIDWM 03/09/18 Reported Proair Hfa (Albuterol Sulfate) 1 Puff Puff 2 Puff IH Q4H PRN 03/09/18 Reported 1 PUFF = 90 MCG Symbicort 80-4.5 Mcg Inhaler (Budesonide/Formoterol Fumarate) 10.2 Gm Hfa.aer.ad 2 Puff IH BID 03/09/18 Reported Fluticasone Propionate 16 Gm [place].susp 2 Sprays NS DAILY 03/09/18 Reported Cetirizine HCl 10 Mg Tablet 10 Mg PO DAILY 03/09/18 Reported Gabapentin 300 Mg Capsule 900 Mg PO QID 08/06/17 Reported TAKES 3 (300MG) CAPUSLES Past Mllfaph-Vfjwpq-Ciyjwn Hx Past Med/Social Hx: Reviewed Nursing Past Med/Soc Hx Family History Alzheimer's disease 19 FATHER 19 MOTHER Asthma 19 FATHER Completed stroke 19 FATHER Deafness or hearing loss 19 FATHER Dementia 19 FATHER Diabetes mellitus 19 FATHER 19 MOTHER Headache disorder 19 FATHER Hypertension 19 FATHER 19 MOTHER Myocardial infarction 19 FATHER 19 MOTHER Respiratory disorder 19 FATHER No Family History of: Kidney disease Review of Systems Constitutional: chills; No fever EENTM: no symptoms reported Respiratory: cough, dyspnea on exertion; No hemoptysis; short of breath, wheezing Cardiovascular: chest pain; No edema, No palpitations Gastrointestinal: No abdominal pain Genitourinary: No dysuria Musculoskeletal: no symptoms reported Skin: no symptoms reported Psychiatric/Neurological: No Symptoms Reported Physical Exam Physical Exam General Appearance: No Apparent Distress, WD/WN, Chronically ill Eyes: Bilateral Eye Normal Inspection HEENT: Normal ENT Inspection Neck: Full Range of Motion, Normal Inspection Respiratory: Chest Non Tender, No Accessory Muscle Use, No Respiratory Distress , Expiration, Wheezing Cardiovascular: Regular Rate, Rhythm, No Edema, No Gallop, No Murmur, Normal Peripheral Pulses Gastrointestinal: Normal Bowel Sounds, Non Tender, Soft Back: No CVA Tenderness, No Vertebral Tenderness Extremity: Normal Capillary Refill, No Calf Tenderness, No Pedal Edema Neurologic/Psychiatric: Alert, Oriented x3, No Motor/Sensory Deficits, Normal Mood/Affect Skin: Normal Color, Warm/Dry Lymphatic: No Adenopathy Results Results/Procedures Imaging: Reviewed Imaging Films, Reviewed Imaging Report Assessment/Plan Admission Diagnosis Acute COPD exacerbation w/ hypoxia Admission Status: Inpatient Order (span 2 midnights) Reason for Inpatient Admission: Acute COPD exacerbation requiring O2, bronchodilators, and IV steroids Assessment and Plan Assessment: Acute COPD exacerbation w/ hypoxia Oxygen dependence Tobacco use Non-anion gap metabolic acidosis Chronic pancreatitis PVD w/ amputation Hx of oxycodone overdose Plan: Maintain on O2 via NC IV steroids and duoneb treatments IV bicarb Add Roflumilast Pain control w/ Toradol Evaluate for CPAP for home Considered abx, but pt does not meet Gold Criteria in COPD exacerbation, no infiltrates seen on CXR Diagnosis/Problems Diagnosis/Problems (1) COPD (chronic obstructive pulmonary disease) Status: Acute Qualifiers: COPD type: COPD with acute exacerbation Qualified Codes: J44.1 - Chronic obstructive pulmonary disease with (acute) exacerbation (2) Hypoxia Onset Date: 08/04/2014 Status: Acute (3) Metabolic acidosis Status: Acute (4) Tobacco use Status: Chronic (5) Peripheral vascular disease Status: Chronic (6) Chronic pancreatitis Status: Chronic Qualifiers: Pancreatitis type: unspecified pancreatitis type Qualified Codes: K86.1 - Other chronic pancreatitis ELVIS NERI DO Oct 06, 2018 08:48 KAYE GIRON MEDICAL STUDENT Oct 06, 2018 10:49
[2018-10-06] MEDS ORDERED: NICOTINE 21 MG (NICODERM) PATCH TD SCH (09:00)
[2018-10-06] MEDS ORDERED: FAMOTIDINE 20 MG (PEPCID) TABLET PO SCH (09:00)
[2018-10-06] MEDS ORDERED: GABAPENTIN 100 MG (NEURONTIN) CAP PO SCH (09:00)
[2018-10-06] MEDS ORDERED: RT-ALBUTEROL SULF 2.5 MG/3 ML PRE-MIX VIAL IH PRN (09:45)
[2018-10-06] MEDS: NICOTINE 21 MG (NICODERM) PATCH TD SCH (10:31)
[2018-10-06] MEDS: SODIUM BICARBONATE 650 MG TABLET (NON-FORMULARY) PO SCH ×3 (10:31→21:20)
[2018-10-06] MEDS: FAMOTIDINE 20 MG (PEPCID) TABLET PO SCH (10:31)
--- NOTE | 2018-10-06 10:55 | NUR ---
CM/SS sent necessary information to [facility] for nebulizer.
--- NOTE | 2018-10-06 11:14 | NUR ---
CM/SS follow up on nebulizer, [facility] stated that she had just gotten a nebulizer with Medicaid in November 2017 and insurance would not cover another one. [facility] did have a used one that they will donate to her. They will deliver to her room.
[2018-10-06] MEDS: FLUTICASONE NASAL SPRAY (FLONASE) 16 GM BTL NS SCH (11:55)
[2018-10-06] MEDS: LIPASE/AMYLASE/PROTEASE (PANCRELIPASE) 5,000 UNITS CAP PO SCH ×2 (11:55→17:23)
[2018-10-06 12:00] VITALS: BP 150/85
[2018-10-06] MEDS: GABAPENTIN 600 MG (NEURONTIN) TAB PO SCH ×3 (14:24→21:20)
[2018-10-06] MEDS: GABAPENTIN 300 MG (NEURONTIN) CAP PO SCH ×3 (14:24→21:21)
--- NOTE | 2018-10-06 15:39 | NUR ---
Pastoral care visit, offered prayer and support.
[2018-10-06 16:08] VITALS: BP 162/96
--- NOTE | 2018-10-06 16:43 | Pulmonary Consultation ---
History of Present Illness History of Present Illness Date of Consultation 10/06/18 16:08 Time Seen by Provider: 17:00 Date of Admission History of Present Illness 48yo with hx of chronic pain, severe oxygen dependent COPD and persistent tobacco use presented to ED secondary to worsening SOB, and bilateral wheezing over the last 3-4 days. She take narcotics at home for pain. SHe has had exacerbations in the past. She takes albuterol SVNS at home however she states her nebulizer broke. I am consulted for pulmonary management. Allergies and Home Medications Allergies Coded Allergies: ofloxacin (Verified Allergy, Mild, 08/10/16) Penicillins (Verified Allergy, Unknown, Pt has received Ceftriaxone & Cefepime in the past w/o issue, 08/06/17) amoxicillin (Verified Allergy, Unknown, 08/10/16) clavulanic acid (Verified Allergy, Unknown, 08/10/16) promethazine (Verified Allergy, Unknown, 08/10/16) propoxyphene (Verified Allergy, Unknown, 08/10/16) ketorolac (Verified Adverse Reaction, Unknown, 11/08/17) tramadol (Verified Adverse Reaction, Unknown, 11/08/17) Home Medications Albuterol Sulfate 1 Puff Puff, 2 PUFF IH Q4H PRN for SHORTNESS OF BREATH, ( Reported) 1 PUFF = 90 MCG Budesonide/Formoterol Fumarate 10.2 Gm Hfa.aer.ad, 2 PUFF IH BID, (Reported) Cetirizine HCl 10 Mg Tablet, 10 MG PO DAILY, (Reported) Fluticasone Propionate 16 Gm [place].susp, 2 SPRAYS NS DAILY, (Reported) Gabapentin 300 Mg Capsule, 900 MG PO QID, (Reported) TAKES 3 (300MG) CAPUSLES Lipase/Protease/Amylase 1 Each Capsule.dr, 2 CAP PO TIDWM, (Reported) Ranitidine HCl 150 Mg Tablet, 150 MG PO BID, (Reported) Past Gryxkle-Wvfqde-Nwbxou Hx Past Med/Social Hx: Reviewed Nursing Past Med/Soc Hx Patient Social History Alcohol Use: Occasionally Uses Number of Drinks Today: AA Alcohol Beverage of Choice: Beer Recreational Drug Use: Yes (ETOH- NOT FOR LAST SIX MONTHS) Drug of Choice: RX MEDICATIONS, JUAN CARLOS OXYCODONE/OPIATES & BENZODIAZEPINES, WELL ILLICIT Type Used: Cigars, Cigarettes 2nd Hand Smoke Exposure: No Recent Foreign Travel: No Contact w/Someone Who Travel: No Recent Infectious Disease Expo: No Recent Hopitalizations: Yes Immunizations Up To Date Tetanus Booster (TDap): Unknown PED Vaccines UTD: No Date of Pneumonia Vaccine: Jul 26, 2009 Date of Influenza Vaccine: Sep 26, 2013 Seasonal Allergies Seasonal Allergies: No Past Medical History Surgeries: Yes Abdominal, Amputation, Eye Surgery, Gallbladder, Hysterectomy, Oophorectomy, Orthopedic Respiratory: Yes (ASPIRATION AND ARDS) Asthma, Pneumonia, Chronic Bronchitis, COPD, Emphysema Currently Using CPAP: No Currently Using BIPAP: No Cardiac: Yes Hypertension Neurological: Yes (CHRONIC PHANTOM LEG PAIN, TREMORS) Headaches /Migraines, Stroke 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 Disorders: Yes 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 Sexually Transmitted Disease: No HIV/AIDS: No Genitourinary: Yes (CHRONIC RENAL INSUFFICIENCY) UTI-Chronic Gastrointestinal: Yes (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) Gastroesophageal Reflux, Pancreatitis, Hiatal Hernia, Ulcer, Gall Bladder Disease Musculoskeletal: Yes Amputee, Osteoporosis, Fractures Endocrine: Yes HEENT: Yes (EDENTULOUS; BILATERAL CATARACT SURGERY) Cataract Loss of Vision: Denies Hearing Impairment: Denies Cancer: No Psychosocial: Yes Anxiety, Suicide Attempts, Depression Integumentary: No Blood Disorders: No Adverse Reaction/Blood Tranf: No Family Medical History Alzheimer's disease 19 FATHER 19 MOTHER Asthma 19 FATHER Completed stroke 19 FATHER Deafness or hearing loss 19 FATHER Dementia 19 FATHER Diabetes mellitus 19 FATHER 19 MOTHER Headache disorder 19 FATHER Hypertension 19 FATHER 19 MOTHER Myocardial infarction 19 FATHER 19 MOTHER Respiratory disorder 19 FATHER No Family History of: Kidney disease No Pertinent Family Hx, Heart Disease, COPD, Diabetes, Hypertension, Stroke Review of Systems Time Seen by Provider: 18:03 Constitutional: Sweats, Weakness, Malaise Eyes: No: Pain, Vision change, Conjunctivae inflammation, Eyelid inflammation, Other, Redness ENT: Nose congestion; No: Ear pain, Ear discharge, Nose pain, Nose discharge, Mouth pain, Mouth swelling, Throat pain, Throat swelling, Other Respiratory: Cough, Dry, Shortness of breath, SOB with excertion, Wheezing; No : Hemoptysis Cardiovascular: Chest Pain, Paroxysmal Noc. Dyspnea, Lt Headedness Gastrointestinal: No: Nausea, Vomiting, Abdominal Pain, Diarrhea, Constipation , Melena, Hematochezia, Other Neurological: Weakness Sepsis Event Evaluation Height, Weight, BMI Height: 5'1.00" Weight: 70lbs. 4.0oz. 31.910751ch; 13.7 BMI Method:Estimated Exam Exam Vital Signs Date Time Temp Pulse Resp B/P (MAP) Pulse Ox O2 Delivery O2 Flow Rate FiO2 10/06/18 12:00 98.4 57 20 150/85 (106) 96 Nasal Cannula 2.00 10/06/18 08:00 97.9 68 22 146/82 (103) 95 Nasal Cannula 2.00 10/06/18 07:20 91 Nasal Cannula 2.50 10/06/18 07:00 55 10/06/18 04:53 98.2 56 14 146/93 (110) 97 Nasal Cannula 2.00 10/06/18 03:05 97 OxyMask 2.00 10/06/18 01:00 66 10/06/18 00:58 98.8 68 16 154/98 (116) 96 Nasal Cannula 2.00 10/05/18 23:44 52 94 28 10/05/18 22:48 94 Nasal Cannula 2.00 10/05/18 22:03 98.2 52 14 119/71 94 Nasal Cannula 2.00 10/05/18 21:08 73 10/05/18 20:00 Nasal Cannula 2.00 10/05/18 19:35 98.2 52 14 119/71 (87) 94 Nasal Cannula 2.00 10/05/18 19:20 86 16 116/70 (85) 97 Nasal Cannula 2.00 I & O 10/06/18 07:00 Intake Total 780 ml Output Total 700 ml Balance 80 ml Height & Weight Height: 5'1.00" Weight: 70lbs. 4.0oz. 31.208637yd; 13.7 BMI Method:Estimated General Appearance: WD/WN, Anxious, Chronically ill, Mild Distress, Thin HEENT: Normal ENT Inspection Neck: Full Range of Motion, Normal Inspection Respiratory: Chest Non Tender, Accessory Muscle Use, Decreased Breath Sounds, Expiration, Wheezing Cardiovascular: Regular Rate, Rhythm, No Edema, No Gallop, No Murmur, Normal Peripheral Pulses Capillary Refill: Less Than 3 Seconds Extremity: Normal Capillary Refill, No Calf Tenderness, No Pedal Edema Neurologic/Psychiatric: Alert, Oriented x3, No Motor/Sensory Deficits, Normal Mood/Affect Skin: Normal Color, Warm/Dry Lymphatic: No Adenopathy Results Lab Laboratory Tests 10/05/18 15:23 10/06/18 05:40 Assessment/Plan Assessment/Plan COPDAE with hypoxia - Doubt PNA -Repeat ABG - secondary to pt complaining of worsening SOB -Check CT of chest -SVNs- increase SVNS to Q2 hours PRN -Oxygen -Solumedrol give 125 of solumedrol then continue continue solumedrol Tobacco use -Education Nonanion gap metabolic acidosis -monitor Chronic pancreatitis ASHLEIGH ORTEGA DO Oct 06, 2018 16:43
[2018-10-06] MEDS ORDERED: RT-ALBUTEROL SULF 2.5 MG/3 ML PRE-MIX VIAL INH SCH (17:38)
[2018-10-06] MEDS ORDERED: methylPREDNISolone 125 MG (Solu-MEDROL) VIAL IVP NR (17:45)
[2018-10-06] MEDS ORDERED: DOCUSATE SODIUM 100 MG (COLACE) CAP PO PRN (17:45)
[2018-10-06] MEDS ORDERED: IBUPROFEN TABLET 200 MG TAB PO PRN (17:45)
[2018-10-06] MEDS ORDERED: ALPRAZolam 0.25 MG (XANAX) TAB PO PRN (17:45)
[2018-10-06] MEDS ORDERED: CALCIUM CARBONATE 500 MG (TUMS) TAB.CHEW PO PRN (17:45)
[2018-10-06] MEDS ORDERED: RECEIVED CONTRAST (Hold Metformin) IV SCH (18:00)
[2018-10-06] MEDS ORDERED: NS 100 ML (IVPB) BAG IV ONE (18:00)
[2018-10-06] MEDS ORDERED: IOHEXOL 350 MG/ML 100 ML (OMNIPAQUE 350) VIAL IV ONE (18:00)
[2018-10-06] MEDS: RT-ADVAIR HFA 45/21 MCG PER PUFF IH SCH (18:40)
[2018-10-06 19:26] LABS: ABG BASE EXCESS -2.8 MMOL/L (-2.5-2.5); ABG OXYGEN SATURATION 95 % (94-100); ABG PCO2 42 MMHG (35-45); ABG PO2 75 MMHG (79-93); ABG TCO2 23.3 MMOL/L (21.0-31.0)
[2018-10-06 19:30] LABS: ABG PH 7.34 (7.37-7.43)
[2018-10-06 19:31] LABS: ALLENS TEST POSITIVE; INSPIRED O2 3L; PATIENT TEMP 98.9; VENTILATOR NO
--- NOTE | 2018-10-06 20:04 | NUR ---
1930- critical result from lab ph-[id number]. 2002- informed dr. faith and dr roche at this time. no new orders. will continue to monitor pt.
--- NOTE | 2018-10-06 20:25 | Diagnostic Imaging Report ---
PROCEDURE: CT chest with contrast only. TECHNIQUE: Multiple contiguous axial images were obtained through the chest after administration of intravenous contrast. DATE: October 06, 2018. COMPARISON: Chest radiograph October 05, 2018. INDICATION: 48-year-old female, shortness of breath. Chest pain and cough. History of asthma. FINDINGS: There is mild tree-in-bud nodularity in the left upper lobe on axial image 25 and adjacent sequential images. This is new since July 21, 2016 although of uncertain exact acuity. The tree-in-bud nodular appearance is most typical for process spreading via endobronchial means which is most commonly an infectious bronchiolitis or aspiration. There is also very minimal tree-in-bud nodularity in portions of the left lower lobe. There is also mild tree in bud nodularity in the lower aspect of the right upper lobe. There are linear opacities in the left lower lobe likely relating to atelectasis and/or scarring. There is no additional focal airspace consolidation. There is no pneumothorax. There is no pleural effusion. There is no identified pulmonary nodule or lung mass. The central airways are patent. The main pulmonary artery is abnormally dilated and measures 3.4 cm in diameter. This is suggestive of pulmonary artery hypertension. There is no identified pulmonary embolus. The heart is not enlarged. There is no pericardial effusion. There are atherosclerotic calcifications. There is no identified abnormally enlarged mediastinal, hilar, or axillary lymph node which meets CT size criteria for adenopathy. There are several focal areas of bilateral renal cortical scarring. The patient is status post cholecystectomy. There is slight prominence of the common bile duct. The common bile duct is not imaged to its duodenal insertion. The main pancreatic duct is not abnormally dilated. Additional limited evaluation of the imaged portions of the upper abdomen is unremarkable. There is no identified acute bony abnormality. IMPRESSION: CT CHEST. 1. Very mild tree-in-bud nodularity as described above which likely relates to a process spreading via endobronchial means which is most typically an infectious bronchiolitis or aspiration. Findings are new since June 2016 although of uncertain exact acuity. 2. Abnormally dilated main pulmonary artery diameter suggesting pulmonary artery hypertension. No identified pulmonary embolus. 3. Multifocal areas of renal cortical scarring bilaterally. Dictated by: Dictated on workstation # [id number]
[2018-10-07] MEDS: RT-ALBUTEROL SULF 2.5 MG/3 ML PRE-MIX VIAL INH SCH ×4 (00:05→06:14)
[2018-10-07 00:10] VITALS: BP 123/79
--- NOTE | 2018-10-07 05:26 | Pulmonary Progress Note ---
Sepsis Event Evaluation Height, Weight, BMI Height: 5'1.00" Weight: 70lbs. 4.0oz. 31.758876fo; 13.7 BMI Method:Estimated Exam Exam Vital Signs Date Time Temp Pulse Resp B/P (MAP) Pulse Ox O2 Delivery O2 Flow Rate FiO2 10/07/18 00:10 97.8 65 18 123/79 (94) 94 Nasal Cannula 3.00 10/06/18 22:18 92 Nasal Cannula 2.00 10/06/18 20:00 Nasal Cannula 3.00 10/06/18 18:40 93 Nasal Cannula 3.00 10/06/18 16:08 97.8 81 19 162/96 (118) 99 Nasal Cannula 2.00 10/06/18 12:00 98.4 57 20 150/85 (106) 96 Nasal Cannula 2.00 10/06/18 08:10 Nasal Cannula 2.00 10/06/18 08:00 97.9 68 22 146/82 (103) 95 Nasal Cannula 2.00 10/06/18 07:20 91 Nasal Cannula 2.50 10/06/18 07:00 55 I & O 10/07/18 07:00 Intake Total 2430 ml Output Total 2650 ml Balance -220 ml Height & Weight Height: 5'1.00" Weight: 70lbs. 4.0oz. 31.524973ea; 13.7 BMI Method:Estimated General Appearance: WD/WN, Anxious, Chronically ill, Mild Distress, Thin HEENT: Normal ENT Inspection Neck: Full Range of Motion, Normal Inspection Respiratory: Chest Non Tender, Accessory Muscle Use, Decreased Breath Sounds, Expiration, Wheezing Cardiovascular: Regular Rate, Rhythm, No Edema, No Gallop, No Murmur, Normal Peripheral Pulses Capillary Refill: Less Than 3 Seconds Extremity: Normal Capillary Refill, No Calf Tenderness, No Pedal Edema Neurologic/Psychiatric: Alert, Oriented x3, No Motor/Sensory Deficits, Normal Mood/Affect Skin: Normal Color, Warm/Dry Lymphatic: No Adenopathy Results Lab Laboratory Tests 10/05/18 15:23 10/06/18 05:40 Assessment/Plan Assessment/Plan COPDAE with hypoxia - Doubt PNA - CT of chest - chronic lung disease and inflammation -SVNs- increase SVNS to Q2 hours PRN -Oxygen -Solumedrol give 125 of solumedrol then continue continue solumedrol Tobacco use -Education Nonanion gap metabolic acidosis -monitor -AM labs pending Chronic pancreatitis ASHLEIGH ORTEGA DO Oct 07, 2018 05:25
[2018-10-07] MEDS: methylPREDNISolone 125 MG (Solu-MEDROL) VIAL IV SCH (06:14)
[2018-10-07] MEDS: LIPASE/AMYLASE/PROTEASE (PANCRELIPASE) 5,000 UNITS CAP PO SCH ×2 (06:17→12:00)
[2018-10-07 08:00] VITALS: BP 145/86
[2018-10-07] MEDS: SODIUM BICARBONATE 650 MG TABLET (NON-FORMULARY) PO SCH ×2 (08:35→12:01)
[2018-10-07] MEDS: GABAPENTIN 300 MG (NEURONTIN) CAP PO SCH ×2 (08:35→12:01)
[2018-10-07] MEDS: GABAPENTIN 600 MG (NEURONTIN) TAB PO SCH ×2 (08:35→12:01)
[2018-10-07] MEDS: NICOTINE 21 MG (NICODERM) PATCH TD SCH (08:36)
[2018-10-07] MEDS: FLUTICASONE NASAL SPRAY (FLONASE) 16 GM BTL NS SCH (08:36)
[2018-10-07] MEDS ORDERED: LORATADINE (CLARITIN) 10 MG TAB PO SCH (09:00)
[2018-10-07] MEDS ORDERED: FAMOTIDINE 20 MG (PEPCID) TABLET PO SCH (09:00)
[2018-10-07] MEDS ORDERED: PRED10TA22 PO (09:43)
--- NOTE | 2018-10-07 09:45 | Discharge Summary-Hospitalist ---
ELVIS NERI DO 10/07/18 0945: Diagnosis/Chief Complaint Date of Admission Oct 05, 2018 at 18:16 Date of Discharge Discharge Date: Oct 07, 2018 Admission Diagnosis AECOPD Chronic pancreatitis Hypoxia Chronic pain syndrome Plan: Consult Dr Delgadillo O2 biPAP Nebs Neb machine at DC Discharge Diagnosis (1) COPD (chronic obstructive pulmonary disease) Status: Acute (2) Hypoxia Onset Date: 08/04/2014 Status: Acute (3) Metabolic acidosis Status: Acute (4) Tobacco use Status: Chronic (5) Peripheral vascular disease Status: Chronic (6) Chronic pancreatitis Status: Chronic Discharge Summary Discharge Physical Exam Allergies: Coded Allergies: ofloxacin (Verified Allergy, Mild, 08/10/16) Penicillins (Verified Allergy, Unknown, Pt has received Ceftriaxone & Cefepime in the past w/o issue, 08/06/17) amoxicillin (Verified Allergy, Unknown, 08/10/16) clavulanic acid (Verified Allergy, Unknown, 08/10/16) promethazine (Verified Allergy, Unknown, 08/10/16) propoxyphene (Verified Allergy, Unknown, 08/10/16) ketorolac (Verified Adverse Reaction, Unknown, 11/08/17) tramadol (Verified Adverse Reaction, Unknown, 11/08/17) Vitals & I&Os Vital Signs Date Time Temp Pulse Resp B/P (MAP) Pulse Ox O2 Delivery O2 Flow Rate FiO2 10/07/18 14:25 88 20 145/86 93 Nasal Cannula 3.00 10/07/18 08:00 99.1 10/05/18 23:44 28 General Appearance: WD/WN, Anxious, Chronically ill, Mild Distress, Thin HEENT: Normal ENT Inspection Respiratory: Chest Non Tender, Accessory Muscle Use, Wheezing (subtle and improved) Cardiovascular: Regular Rate, Rhythm, No Edema, No Gallop, No Murmur, Normal Peripheral Pulses Gastrointestinal: Non Tender, Soft Extremity: Normal Capillary Refill, No Calf Tenderness, No Pedal Edema Skin: Normal Color, Warm/Dry Neurologic/Psychiatric: Alert, Oriented x3, No Motor/Sensory Deficits, Normal Mood/Affect Hospital Course Was the Problem List Reviewed?: Yes Hospital course: Pt had an uneventful hospital course, she was admitted due to shortness of breath, placed on IV steroids, nebulizer treatments, and oxygen supplementation. She depends on oxygen 24/[address] Delgadillo was consulted, no evidence of the need for CPAP or vent to face mask. She improved enough, was able too eat and drink, bowels were moving and requested discharge so I obtained close follow up at [facility]. Nebulizer machine order was given along with the Prednisone taper dose. Labs (last 24 hrs) Microbiology 10/05/18 Blood Culture - Preliminary, Resulted No growth Patient resulted labs reviewed. Imaging: Reviewed Imaging Films, Reviewed Imaging Report Discussion & Recommendations Discharge Planning: <30 minutes discharge planning Discharge Home Medications: Active Scripts Active Prednisone 10 Mg Tab.ds.pk 10 Mg PO DAILY Take 6 tabs(60mg)daily,decrease by 1 tab(10MG)daily. Reported Ranitidine HCl 150 Mg Tablet 150 Mg PO BID Creon Dr 12,000 Units Capsule (Lipase/Protease/Amylase) 1 Each Capsule.dr 2 Cap PO TIDWM Proair Hfa (Albuterol Sulfate) 1 Puff Puff 2 Puff IH Q4H PRN 1 PUFF = 90 MCG Symbicort 80-4.5 Mcg Inhaler (Budesonide/Formoterol Fumarate) 10.2 Gm Hfa.aer.ad 2 Puff IH BID Fluticasone Propionate 16 Gm [place].susp 2 Sprays NS DAILY Cetirizine HCl 10 Mg Tablet 10 Mg PO DAILY Gabapentin 300 Mg Capsule 900 Mg PO QID TAKES 3 (300MG) CAPUSLES Instructions to patient/family Please see electronic discharge instructions given to patient. Clinical Quality Measures DVT/VTE Risk/Contraindication: Risk Factor Score Per Nursin RFS Level Per Nursing on Admit: 4+=Very High KAYE GIRON MEDICAL STUDENT 10/07/18 1302: Diagnosis/Chief Complaint Admission Diagnosis Acute exacerbation COPD Discharge Diagnosis Acute exacerbation COPD (1) COPD exacerbation Status: Acute (2) Hypoxia Status: Acute (3) Metabolic acidosis Status: Acute (4) Chronic pancreatitis Status: Chronic (5) Peripheral vascular disease Status: Chronic (6) EMPHYSEMA, UNSPECIFIED Status: Chronic (7) COPD (chronic obstructive pulmonary disease) Status: Acute (8) Tobacco use Status: Chronic Discharge Summary Procedures/Consulations Pulmonology Discharge Physical Exam Allergies: Coded Allergies: ofloxacin (Verified Allergy, Mild, 08/10/16) Penicillins (Verified Allergy, Unknown, Pt has received Ceftriaxone & Cefepime in the past w/o issue, 08/06/17) amoxicillin (Verified Allergy, Unknown, 08/10/16) clavulanic acid (Verified Allergy, Unknown, 08/10/16) promethazine (Verified Allergy, Unknown, 08/10/16) propoxyphene (Verified Allergy, Unknown, 08/10/16) ketorolac (Verified Adverse Reaction, Unknown, 11/08/17) tramadol (Verified Adverse Reaction, Unknown, 11/08/17) General Appearance: No Apparent Distress, WD/WN, Chronically ill, Thin HEENT: Normal ENT Inspection, Pharynx Normal, Moist Mucous Membranes Respiratory: Chest Non Tender, No Accessory Muscle Use, No Respiratory Distress , Expiration, Wheezing (Very mild wheezing diffusely) Cardiovascular: Regular Rate, Rhythm, No Edema, No Gallop, No Murmur, Normal Peripheral Pulses Gastrointestinal: Normal Bowel Sounds, Non Tender, Soft Extremity: Normal Capillary Refill, No Calf Tenderness, No Pedal Edema Skin: Normal Color, Warm/Dry Neurologic/Psychiatric: Alert, Oriented x3, Normal Mood/Affect Hospital Course Was the Problem List Reviewed?: Yes Hospital course: This is a 66 yo white female who presented to the ER via EMS from home c/o increased dyspnea, productive cough, and chills at home onset 3-4 days ago consistent w/ AECOPD. She is also complaining of pleuritic chest pain. She is on oxygen at home. She also reports she had been seen at [facility] in the last month and they had discussed getting her CPAP to wear at night, but she never received the CPAP. She continues to smoke a PPD. Pt was last seen at [facility] in February 2018 for an accidental overdose of oxycodone and required Narcan. Pt denies current SI. Pt has multiple comorbidities including chronic pancreatitis and COPD. The pt improved w/ O2, IV steroids, and duoneb treatments. Dr. Neri ordered another nebulizer for the pt at home. Also coordinated for getting CPAP w/ Dr. Delgadillo. Pt also requested wheel chair. She was told she can discuss this w/ her PCP. She has close f/u w/ Dr. Dias at [facility] on Oct 16. Imaging: Reviewed Imaging Films, Reviewed Imaging Report Discussion & Recommendations Discharge Planning: <30 minutes discharge planning Discharge Condition at discharge Stable Problem Qualifiers (1) COPD (chronic obstructive pulmonary disease): COPD type: COPD with acute exacerbation Qualified Codes: J44.1 - Chronic obstructive pulmonary disease with (acute) exacerbation (2) Chronic pancreatitis: Pancreatitis type: unspecified pancreatitis type Qualified Codes: K86.1 - Other chronic pancreatitis ELVIS NERI DO Oct 07, 2018 09:45 KAYE GIRON MEDICAL STUDENT Oct 07, 2018 13:02
--- NOTE | 2018-10-07 09:58 | NUR ---
CM/SS contacted [facility] as patient would need portable Oxygen at discharge. They will deliver a tank to patient's hospital room this day.
[2018-10-07] MEDS ORDERED: RT-ALBUTEROL SULF 2.5 MG/3 ML PRE-MIX VIAL INH SCH (10:00)
[2018-10-07] MEDS: RT-ADVAIR HFA 45/21 MCG PER PUFF IH SCH (10:22)
[2018-10-07 14:25] VITALS: BP 145/86
--- NOTE | 2018-10-07 14:25 | NUR ---
DISCHARGE INSTRUCTIONS GIVEN TO PATIENT AND TIME ALLOWED FOR QUESTIONS. IV REMOVED WITH CATHETER INTACT. NO REPORT OF PAIN OR SHORTNESS OF BREATH. PATIENT LEFT ROOM VIA WHEELCHAIR WITH 02 OF 3L NASAL CANNULA ACCOMPANIED BY STAFF. PATIENT LEFT FACILITY VIA PRIVATE VEHICLE WITH ADULT SON.
== END 2018-10-07 09:43 | disposition home or self-care (01) ==
LOC: EDUNIT# 15:15 → ER 15:15 → UNDOADMOB 18:16 → 4TH 18:16 → UNDODISOB 10-07 14:25
PROVIDERS: ADMIT Family Medicine; ATTEND Family Medicine
DX: J43.9 Emphysema, unspecified (principal); K86.1 Other chronic pancreatitis; R09.02 Hypoxemia; G89.4 Chronic pain syndrome; E87.2 Acidosis; I73.9 Peripheral vascular disease, unspecified; Z88.0 Allergy status to penicillin; Z88.1 Allergy status to other antibiotic agents; Z99.81 Dependence on supplemental oxygen; F17.210 Nicotine dependence, cigarettes, uncomplicated; K21.9 Gastro-esophageal reflux disease without esophagitis; F41.9 Anxiety disorder, unspecified; F32.9 Major depressive disorder, single episode, unspecified; Z86.73 Personal history of transient ischemic attack (TIA), and cerebral infarction without residual deficits
CPT/HCPCS: 36415; 36600; 71045; 71260; 80048; 80053; 82805; 83880; 84484; 85025; 87040; 90471; 90686; 94640; 94760; G0378

== ENCOUNTER 2019-01-20 17:52 | Emergency (ER) | payer MEDICAID ==
[~2019-01-20] VITALS: Ht 154.9 cm; Wt 40.8 kg
[~2019-01-20 17:52] MED LIST changes: +PRED10TA22 PO
[2019-01-20] MEDS ORDERED: HYDROcodone/APAP 5 MG/325 MG (LORTAB) TAB PO ONE (18:30)
--- NOTE | 2019-01-20 18:44 | Diagnostic Imaging Report ---
INDICATION: Pain. FINDINGS: There appears to be some slight lateral displacement of the proximal phalanx of the right fifth finger with respect to the distal fifth metacarpal. This may simply be partially subluxed. There is no fracture. Soft tissues are unremarkable. IMPRESSION: Questionable subluxation/partial dislocation of the right fifth metacarpal phalangeal joint. Recommend clinical correlation. No acute fracture Dictated by: Dictated on workstation # [id number]
--- NOTE | 2019-01-20 19:00 | ED Upper Extremity ---
General Chief Complaint: Upper Extremity Stated Complaint: R HAND PAIN Nursing Triage Note: PT TO TRIAGE BY WHEELCHAIR WITH COMPLAINT OF RIGHT HAND PAIN. STATES HER LIFT CHAIR FELL ON HAND THREE DAYS AGO. Nursing Sepsis Screen: No Definite Risk Source: patient Exam Limitations: no limitations History of Present Illness Date Seen by Provider: January 20, 2019 Time Seen by Provider: 18:15 Initial Comments 48-year-old female who presents to the emergency room with complaints of right hand pain after her lift chair fell on the hand 3 days ago. Onset: other Pain/Injury Location: right hand, right 2nd finger Allergies and Home Medications Allergies Coded Allergies: ofloxacin (Verified Allergy, Mild, 08/10/16) Penicillins (Verified Allergy, Unknown, Pt has received Ceftriaxone & Cefepime in the past w/o issue, 08/06/17) amoxicillin (Verified Allergy, Unknown, 08/10/16) clavulanic acid (Verified Allergy, Unknown, 08/10/16) promethazine (Verified Allergy, Unknown, 08/10/16) propoxyphene (Verified Allergy, Unknown, 08/10/16) ketorolac (Verified Adverse Reaction, Unknown, 11/08/17) tramadol (Verified Adverse Reaction, Unknown, 11/08/17) Home Medications Albuterol Sulfate 1 Puff Puff, 2 PUFF IH Q4H PRN for SHORTNESS OF BREATH, (Reported) 1 PUFF = 90 MCG Budesonide/Formoterol Fumarate 10.2 Gm Hfa.aer.ad, 2 PUFF IH BID, (Reported) Cetirizine HCl 10 Mg Tablet, 10 MG PO DAILY, (Reported) Fluticasone Propionate 16 Gm [place].susp, 2 SPRAYS NS DAILY, (Reported) Gabapentin 300 Mg Capsule, 900 MG PO QID, (Reported) TAKES 3 (300MG) CAPUSLES Lipase/Protease/Amylase 1 Each Capsule.dr, 2 CAP PO TIDWM, (Reported) Prednisone 10 Mg Tab.ds.pk, 10 MG PO DAILY Take 6 tabs(60mg)daily,decrease by 1 tab(10MG)daily. Prescribed by: ELVIS NERI on 10/07/18 4978 Ranitidine HCl 150 Mg Tablet, 150 MG PO BID, (Reported) Patient Home Medication List Home Medication List Reviewed: Yes Review of Systems Constitutional: see HPI; No chills, No fever Musculoskeletal: see HPI, joint pain All Other Systems Reviewed Negative Unless Noted: Yes Past Bucvrua-Wyqzuh-Bzsoxw Hx Past Med/Social Hx: Reviewed Nursing Past Med/Soc Hx Patient Social History Alcohol Use: Occasionally Uses Number of Drinks Today: AA Alcohol Beverage of Choice: Beer Recreational Drug Use: Yes (ETOH- NOT FOR LAST SIX MONTHS) Drug of Choice: RX MEDICATIONS, JUAN CARLOS OXYCODONE/OPIATES & BENZODIAZEPINES, WELL ILLICIT Smoking Status: Current Everyday Smoker Type Used: Cigars, Cigarettes 2nd Hand Smoke Exposure: No Recent Foreign Travel: No Contact w/Someone Who Travel: No Recent Infectious Disease Expo: No Recent Hopitalizations: Yes Immunizations Up To Date Tetanus Booster (TDap): Unknown PED Vaccines UTD: No Date of Pneumonia Vaccine: Jul 26, 2009 Date of Influenza Vaccine: Sep 26, 2013 Seasonal Allergies Seasonal Allergies: No Past Medical History Surgeries: Yes Abdominal, Amputation, Eye Surgery, Gallbladder, Hysterectomy, Oophorectomy, Orthopedic Respiratory: Yes (ASPIRATION AND ARDS) Asthma, Pneumonia, Chronic Bronchitis, COPD, Emphysema Currently Using CPAP: No Currently Using BIPAP: No Cardiac: Yes Hypertension Neurological: Yes (CHRONIC PHANTOM LEG PAIN, TREMORS) Headaches /Migraines, Stroke 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 Disorders: Yes 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 NEONATAL DOCTOR History: Hysterectomy Sexually Transmitted Disease: No HIV/AIDS: No Genitourinary: Yes (CHRONIC RENAL INSUFFICIENCY) UTI-Chronic Gastrointestinal: Yes (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) Gastroesophageal Reflux, Pancreatitis, Hiatal Hernia, Ulcer, Gall Bladder Disease Musculoskeletal: Yes Amputee, Osteoporosis, Fractures Endocrine: Yes HEENT: Yes (EDENTULOUS; BILATERAL CATARACT SURGERY) Cataract Loss of Vision: Denies Hearing Impairment: Denies Cancer: No Psychosocial: Yes Anxiety, Suicide Attempts, Depression Integumentary: No Blood Disorders: No Adverse Reaction/Blood Tranf: No Family Medical History Reviewed Nursing Family Hx Alzheimer's disease 19 FATHER 19 MOTHER Asthma 19 FATHER Completed stroke 19 FATHER Deafness or hearing loss 19 FATHER Dementia 19 FATHER Diabetes mellitus 19 FATHER 19 MOTHER Headache disorder 19 FATHER Hypertension 19 FATHER 19 MOTHER Myocardial infarction 19 FATHER 19 MOTHER Respiratory disorder 19 FATHER No Family History of: Kidney disease No Pertinent Family Hx, Heart Disease, COPD, Diabetes, Hypertension, Stroke Physical Exam Vital Signs Vital Signs - First Documented 01/20/19 18:06 Pulse 85 Resp 20 B/P (MAP) 110/75 (87) Pulse Ox 92 O2 Delivery Room Air Capillary Refill : Less Than 3 Seconds Height, Weight, BMI Height: 5'1.00" Weight: 90lbs. 4.0oz. [id number]; 13.7 BMI Method:Stated General Appearance: WD/WN, no apparent distress Cardiovascular: normal peripheral pulses, regular rate, rhythm, no edema, no gallop, no JVD, no murmur Respiratory: chest non-tender, lungs clear, normal breath sounds, no r espiratory distress, no accessory muscle use Hand: Right, soft tissue tenderness (right hand second finger. ) Neurologic/Tendon: normal sensation, normal motor functions, normal tendon functions, responds to pain, no evidence tendon injury Neurologic/Psychiatric: alert, normal mood/affect, oriented x 3 Skin: normal color, warm/dry, other Progress/Results/Core Measures Results/Orders My Orders Orders - HAILY STEWART Hand, Right, 3 Views (01/20/19 18:19) Hydrocodone/Apap 5/325 Tablet (Lortab 5 (01/20/19 18:30) Medications Given in ED Current Medications Medications Dose Ordered Sig/Ely Route Start Time Stop Time Status Last Admin Dose Admin Acetaminophen/ Hydrocodone Bitart 1 tab ONCE ONCE PO 01/20/19 18:30 01/20/19 18:31 DC 01/20/19 18:35 1 TAB Vital Signs/I&O 01/20/19 01/20/19 18:06 19:17 Pulse 85 85 Resp 20 20 B/P (MAP) 110/75 (87) 110/75 (87) Pulse Ox 92 92 O2 Delivery Room Air Blood Pressure Mean: 87 Progress Progress Note : Time: 19:00 Progress Note I have seen and evaluated the patient. I have informed her of her imaging studies. She denies pain over the right 5th metacarpal no deformity noted. She agrees with plan of care, plans for discharge, return precautions were given. Diagnostic Imaging Diagonstic Imaging: Xray Plain Films/CT/US/NM/MRI: hand Comments NAME: SOPHIE CORNELIUS MED REC#: [id number] PT STATUS: REG ER : 1970 PHYSICIAN: HAILY STEWART ADMIT DATE: 01/20/19/ER Signed Date of Exam: 01/20/19 HAND, RIGHT, 3 VIEWS INDICATION: Pain. FINDINGS: There appears to be some slight lateral displacement of the proximal phalanx of the right fifth finger with respect to the distal fifth metacarpal. This may simply be partially subluxed. There is no fracture. Soft tissues are unremarkable. IMPRESSION: Questionable subluxation/partial dislocation of the right fifth metacarpal phalangeal joint. Recommend clinical correlation. No acute fracture Dictated by: Dictated on workstation # [id number] Dict: 01/20/19 1839 Trans: 01/20/195 Interpreted by: ARIAS ANDREA MD Electronically signed by: ARIAS ANDREA MD 01/20/195 Reviewed: Reviewed by Me Departure Impression Primary Impression: Contusion of hand Disposition: HOME, SELF-CARE Condition: Stable/Unchanged Departure-Patient Inst. Decision time for Depature: 19:01 Referrals: [facility] (PCP/Family) Primary Care Physician Patient Instructions: Contusion (DC) Add. Discharge Instructions: Ice to the sore areas at 20 minute intervals. Tylenol and ibuprofen as directed by the bottle for pain relief. Wear the brace as needed for comfort. Follow-up with your primary care provider within 1 week if no improvement. All discharge instructions reviewed with patient and/or family. Voiced understanding. HAILY STEWART January 20, 2019 19:00
[2019-01-20 19:17] VITALS: BP 110/75
== END 2019-01-20 19:17 | disposition home or self-care (01) ==
LOC: EDUNIT# 17:52 → ER 17:53
DX: S60.221A Contusion of right hand, initial encounter (principal); J43.9 Emphysema, unspecified; I12.9 Hypertensive chronic kidney disease with stage 1 through stage 4 chronic kidney disease, or unspecified chronic kidney disease; N18.9 Chronic kidney disease, unspecified; F41.9 Anxiety disorder, unspecified; F32.9 Major depressive disorder, single episode, unspecified; M81.0 Age-related osteoporosis without current pathological fracture; K21.9 Gastro-esophageal reflux disease without esophagitis; G43.909 Migraine, unspecified, not intractable, without status migrainosus; F10.10 Alcohol abuse, uncomplicated; F17.210 Nicotine dependence, cigarettes, uncomplicated; F17.290 Nicotine dependence, other tobacco product, uncomplicated; Z91.5 Personal history of self-harm; Z88.1 Allergy status to other antibiotic agents; Z82.49 Family history of ischemic heart disease and other diseases of the circulatory system; Z86.73 Personal history of transient ischemic attack (TIA), and cerebral infarction without residual deficits; Z87.19 Personal history of other diseases of the digestive system; Z87.440 Personal history of urinary (tract) infections; Z88.0 Allergy status to penicillin; Z98.890 Other specified postprocedural states; Z90.710 Acquired absence of both cervix and uterus; Z87.01 Personal history of pneumonia (recurrent); Z88.8 Allergy status to other drugs, medicaments and biological substances; Z88.6 Allergy status to analgesic agent; Z88.4 Allergy status to anesthetic agent; Z79.52 Long term (current) use of systemic steroids; Z79.51 Long term (current) use of inhaled steroids; W20.8XXA Other cause of strike by thrown, projected or falling object, initial encounter
CPT/HCPCS: 73130

== ENCOUNTER 2019-02-04 20:48 | Observation (INO) | payer MEDICAID ==
[~2019-02-04] VITALS: Ht 154.9 cm; Wt 32.7 kg
--- OUTSIDE RECORDS SUMMARY | 2019-02-04 20:53 | XMS REPORT | Clinical Summary ---
Author Author [facility] Organization [facility] Address Unknown Phone Unavailable Care Team Providers Care Racing Driver Name Role Phone Mi Joseph RN Unavailable Unavailable Jennifer Bolden RN Unavailable Unavailable Mario Alberto Hodge MD Unavailable Ja Dias MD PCP Carolina Fermin RN Unavailable Unavailable Mirella Swenson RN Unavailable Unavailable Renita Lainez APRN Unavailable Roshan Stephenson MD Unavailable Source Comments Some departments are not documenting in the electronic medical record. If you d o not see the information that you expected, contact Release of Information in [facility] Information Management department at [phone] for further assistan ce in locating additional records.[facility] Allergies Comments Active Allergy Reactions [...] CANCER SCREENING 1998 BREAST CANCER SCREENING 2008 COLORECTAL CANCER 2018 SCREENING SHINGLES RECOMBINANT 2018 VACCINE (1 of 2) INFLUENZA VACCINE 05/26/2019 Results Not on filefrom Last 3 Months Advance Directives Patient has advance care planning documents, and code status on file. For more i nformation, please contact: [facility] [address] [place] [address] Date Inactivated Comments Code Status Date Activated 12/10/2014 11:44 PM Full Code 12/10/2014 6:01 PM Provider has discussed Code Status No, discussion not w/Patient or Family? necessary based on Dx
--- OUTSIDE RECORDS SUMMARY | 2019-02-04 20:53 | XMS REPORT ---
Author Author Migration, Doctor Organization [facility] Address Unknown Phone Unavailable Care Team Providers Care Sheep Rancher Name Role Phone Migration, Doctor Unavailable Unavailable PROBLEMS Type Condition ICD9-CM Code UWX42-BC Code Onset Dates Condition Status SNOMED Code Problem Chronic pancreatitis, unspecified pancreatitis type K86.1 Active 175834813 Problem Chronic obstructive pulmonary disease, unspecified COPD type J44.9 Active 33030274 Problem Phantom limb pain G54.7 Active [id number] ALLERGIES No Information ENCOUNTERS Encounter Location Date Diagnosis [facility] [id number] [place] [address] December, [facility] [id number] [place] [address] December, [facility] [id number] [place] [address] Nov, Chronic pancreatitis, unspecified pancreatitis type K86.1 [facility] [id number] [place] [address] Aug, [facility] [id number] [place] [address] Mar, [facility] [id number] [place] [address] Feb, Chronic obstructive pulmonary disease, unspecified COPD type J44.9 [facility] [id number] [place] [address] Jan, [facility] [id number] [place] [address] Jan, [facility] [id number] [place] [address] December, [facility] [id number] [place] [address] Nov, [facility] [id number] [place] [address] Nov, Chronic pancreatitis, unspecified pancreatitis type K86.1 ; Chronic obstructive pulmonary disease, unspecified COPD type J44.9 ; Phantom limb pain G54.7 and Allergic state, initial encounter T78.40XA [facility] [id number] [place] [address] Sep, [facility] [id number] [place] [address] Jul, [facility] [address] [address] Jul, [facility] [id number] [place] [address] Jul, [facility] [id number] [place] [address] 11 Oct, 2015 Nausea R11.0 [facility] [id number] [place] [address] 10 Oct, 2015 Phantom limb pain G54.7 ; Chronic airway obstruction, not elsewhere classified 496 ; Altered mental status 780.97 ; Encounter for long-term (current) use of high-risk medication V58.69 ; Anxiety 300.00 and Allergic rhinitis 477.9 [facility] [id number] [place] [address] Aug, [facility] [id number] [place] [address] Jun, [facility] [id number] [place] [address] Jun, [facility] [id number] [place] [address] Apr, Chronic pain following surgery or procedure 338.28 ; COPD (chronic obstructive pulmonary disease) with acute bronchitis 491.22 ; Allergic rhinitis 477.9 ; History of drug abuse 305.93 ; Encounter for long-term (current) use of high-risk medication V58.69 ; Dyspepsia 536.8 ; Anxiety 300.00 and Noncompliance V15.81 [facility] [address] [address] Mar, [facility] [id number] [place] [address] Feb, [facility] [id number] [place] [address] Feb, Chronic airway obstruction, not elsewhere classified 496 [facility] [id number] [place] [address] Feb, [facility] [id number] [place] [address] Jan, [facility] [id number] [place] [address] Jan, [facility] [id number] [place] [address] 14 Nov, 2014 [facility] [id number] [place] [address] 13 Nov, 2014 [facility] [id number] [place] [address] Oct, [facility] [id number] [place] [address] Oct, [facility] [id number] [place] [address] Oct, [facility] [id number] [place] [address] Oct, [facility] [address] [place] [address] Oct, [facility] [id number] [place] [address] Oct, [facility] [place] [facility] [address] [id number] [place] [address] Sep, [facility] [place] [facility] [address] [id number] [place] [address] Sep, [facility] [place] [facility] [address] [id number] [place] [address] Sep, [facility] [place] [facility] [address] [id number] [place] [address] Sep, [facility] [place] [facility] [address] [id number] [place] [address] Sep, [facility] [place] [facility] [address] [facility] [id number] [place] [address] Sep, [facility] [place] [facility] [address] [facility] [id number] [place] [address] Aug, [facility] [place] [facility] [address] [id number] [place] [address] Aug, [facility] [place] [facility] [address] [facility] [id number] [place] [address] Aug, [facility] [place] [facility] [address] [facility] [id number] [place] [address] Aug, [facility] [place] [facility] [address] [facility] [id number] [address] Aug, [facility] [place] [facility] [address] [id number], [place] [address] Aug, [facility] [place] [facility] [address] [id number], [place] [address] Aug, [facility] [place] [facility] [address] [facility] [id number], [place] [address] Aug, [facility] [place] [facility] [address] [facility] [id number], [place] [address] Aug, [facility] [place] [facility] [address] [id number] [place] [address] Aug, [facility] [place] [facility] [address] [id number] [place] [address] Jul, [facility] [place] [facility] [address] [id number] [place] [address] Jul, [facility] [place] [facility] [address] [id number] [place] [address] Jul, [facility] [place] [facility] [address] [id number] [place] [address] Jul, [facility] [place] [facility] [address] [id number] [place] [address] Jul, [facility] [place] [facility] [address] [id number] [place] [address] Jul, [facility] [place] [facility] [address] [id number] [place] [address] Jul, [facility] [place] [facility] [address] [id number] [place] [address] Jul, [facility] [place] [facility] [address] [id number] [place] [address] Jul, [facility] [place] [facility] [address] [id number] [place] [address] Jun, [facility] [place] [facility] [address] [id number] [place] [address] Jun, [facility] [place] [facility] [address] [id number] [place] [address] Jun, [facility] [place] [facility] [address] [id number] [place] [address] Jun, [facility] [place] [facility] [address] [id number] [place] [address] Jun, [facility] [place] [facility] [address] [id number] [place] [address] Jun, [facility] [place] [facility] [address] [id number] [place] [address] 30 May, 2014 [facility] [place] [facility] [address] [id number] [place] [address] 30 May, 2014 [facility] [place] [facility] [address] [id number] [place] [address] May, [facility] [place] [facility] [address] [id number] [place] [address] May, [facility] [place] [facility] [address] [id number] [place] [address] May, [facility] [place] [facility] [address] [id number] [place] [address] May, [facility] [place] [facility] [address] [id number] [place] [address] May, [facility] [place] [facility] [address] [id number] [place] [address] Apr, [facility] [place] [facility] [address] [id number] [place] [address] Apr, [facility] [place] [facility] [address] [id number] [place] [address] Apr, [facility] [place] [facility] [address] [id number] [place] [address] Apr, [facility] [place] [facility] [address] [id number], [place] [address] Feb, [facility] [place] [facility] [address] [id number] [place] [address] Feb, [facility] [place] [facility] [address] [id number] [place] [address] Feb, [facility] [place] [facility] [address] [id number] [place] [address] Feb, [facility] [place] [facility] [address] [id number] [place] [address] Feb, 2013 [facility] [place] [facility] [address] [id number] [place] [address] Feb, [facility] [place] [facility] [address] [id number] [place] [address] Feb, [facility] [place] [facility] [address] [id number] [place] [address] Feb, [facility] [place] [facility] [address] [id number] [place] [address] Feb, [facility] [place] [facility] [address] [id number] [place] [address] Feb, [facility] [place] [facility] [address] [id number] [place] [address] Feb, [facility] [place] [facility] [address] [id number] [place] [address] Feb, [facility] [place] [facility] [address] [id number] [place] [address] Feb, [facility] [place] [facility] [address] [id number] [place] [address] Feb, [facility] [place] [facility] [address] [id number] [place] [address] Feb, [facility] [place] [facility] [address] [id number] [place] [address] Feb, [facility] [place] [facility] [address] [id number] [place] [address] Jan, [facility] [place] [facility] [address] [id number] [place] [address] Jan, [facility] [place] [facility] [address] [id number] [place] [address] Jan, [facility] [place] [facility] [address] [id number] [place] [address] Jan, [facility] [place] [facility] [address] [id number] [place] [address] Jan, [facility] [place] [facility] [address] [id number] [place] [address] Jan, [facility] [place] [facility] [address] [id number] [place] [address] Jan, [facility] [place] [facility] [address] [id number] [place] [address] Jan, [facility] [place] [facility] [address] [id number] [place] [address] Jan, [facility] [place] [facility] [address] [id number] [place] [address] Jan, [facility] [place] [facility] [address] [id number] [place] [address] Jan, [facility] [place] [facility] [address] [id number] [place] [address] Jan, [facility] [place] [facility] [address] [id number] [place] [address] Jan, [facility] [place] [facility] [address] [id number] [place] [address] Jan, [facility] [place] [facility] [address] [id number] [place] [address] Jan, [facility] [place] [facility] [address] [id number] [place] [address] Jan, [facility] [place] [facility] [address] [id number] [place] [address] Jan, [facility] [place] [facility] [address] [id number] [place] [address] Jan, [facility] [place] [facility] [address] [id number] [place] [address] Jan, [facility] [place] [facility] [id number] [place] [address] Jan, [facility] [address] [place] [address] Jan, [facility] [address] [place] [address] Jan, [facility] [address], [place] [address] Jan, [facility] [address] [place] [address] Jan, [facility] [address] [place] [address] Jan, [facility] [id number] [place] [address] Jan, [facility] [id number] [place] [address] Jan, [facility] [address] [place] [address] Jan, [facility] [address] [place] [address] Jan, [facility] [address] [place] [address] Jan, [facility] [address] [address] Jan, [facility] [id number] [address] Jan, [facility] [id number] [address] Jun, [facility] [address] [place] [address] Jan, IMMUNIZATIONS No Known Immunizations SOCIAL HISTORY Never Assessed REASON FOR VISIT EMR-[facility] PLAN OF CARE VITAL SIGNS MEDICATIONS Unknown [...] bilateral carpal tunnel 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 Shah Medical History positive drug screen for meth in hospital ER 01/2014 Medical History 02/11/2014 Ameritox positive for multiple substances not prescribed Surgical History cholecystectomy Surgical History gastric surgery mesh in lower portion of stomach Surgical History kidney surgery D&C Surgical History itknpmewldkr-afdyx-hzuotbhi uterus Surgical History orthopedic surgery leg amputation by Dr. Hodge at [facility] r/t osteoporosis 2006 Hospitalization History Surgery(s)/Childbirth(s) only Hospitalization History Pancreatitis, gastritis, abd pain-[facility] 08/10/16
--- OUTSIDE RECORDS SUMMARY | 2019-02-04 20:54 | XMS REPORT ---
Author Author Migration, Doctor Organization [facility] [place] [facility] Address Unknown Phone Unavailable Care Team Providers Care Crepe Machine Operator Name Role Phone Migration, Doctor Unavailable Unavailable PROBLEMS Type Condition ICD9-CM Code EHW79-BR Code Onset Dates Condition Status SNOMED Code Problem Chronic pancreatitis, unspecified pancreatitis type K86.1 Active 689544434 Problem Chronic obstructive pulmonary disease, unspecified COPD type J44.9 Active 98770057 Problem Phantom limb pain G54.7 Active [id number] ALLERGIES No Information ENCOUNTERS Encounter Location Date Diagnosis [facility] [place] [id number] [place] [address] December, [facility] [place] [id number] [place] [address] Nov, Chronic pancreatitis, unspecified pancreatitis type K86.1 [facility] [place] [id number] [place] [address] Aug, [facility] [place] [id number] [place] [address] Mar, [facility] [place] [id number] [place] [address] Feb, Chronic obstructive pulmonary disease, unspecified COPD type J44.9 [facility] [place] [address] [address] Jan, [facility] [place] [id number] [place] [address] Jan, [facility] [place] [id number] [place] [address] December, [facility] [place] [id number] [place] [address] Nov, [facility] [place] [id number] [place] [address] Nov, Chronic pancreatitis, unspecified pancreatitis type K86.1 ; Chronic obstructive pulmonary disease, unspecified COPD type J44.9 ; Phantom limb pain G54.7 and Allergic state, initial encounter T78.40XA [place] [id number] [place] [address] Sep, [place] [address] [address] Jul, [place] [address] [address] Jul, [place] [address] [address] Jul, [place] [address] [address] Oct, Nausea R11.0 [place] [address] [address] 10 Oct, 2015 Phantom limb pain G54.7 ; Chronic airway obstruction, not elsewhere classified 496 ; Altered mental status 780.97 ; Encounter for long-term (current) use of high-risk medication V58.69 ; Anxiety 300.00 and Allergic rhinitis 477.9 [id number] [place] [address] Aug, [place] [id number] [place] [address] Jun, [place] [id number] [place] [address] Jun, [place] [address] [address] Apr, Chronic pain following surgery or procedure 338.28 ; COPD (chronic obstructive pulmonary disease) with acute bronchitis 491.22 ; Allergic rhinitis 477.9 ; History of drug abuse 305.93 ; Encounter for long-term (current) use of high-risk medication V58.69 ; Dyspepsia 536.8 ; Anxiety 300.00 and Noncompliance V15.81 [facility] [place] [address] [address] Mar, [facility] [place] [address] [address] Feb, [facility] [place] [id number] [place] [address] Feb, Chronic airway obstruction, not elsewhere classified 496 [facility] [place] [address] [facility] [id number] [address] Feb, [facility] [place] [id number] [place] [address] Jan, [facility] [place] [id number] [address] Jan, [facility] [place] [id number] [place] [address] 14 Nov, 2014 [facility] [place] [address] [address] Nov, [facility] [place] [address] [address] Oct, [facility] [place] [address] [address] Oct, [facility] [place] [address] [address] Oct, [facility] [place] [id number] [address] Oct, [facility] [place] [id number] [address] Oct, [facility] [place] [id number] [address] Oct, [facility] [place] [address] [address] Sep, [facility] [place] [facility] [address] [id number] [place] [address] Sep, [facility] [place] [facility] [address] [id number] [place] [address] Sep, [facility] [place] [facility] [address] [id number] [place] [address] Sep, [facility] [place] [facility] [address] [id number] [place] [address] Sep, [facility] [place] [facility] [address] [id number] [place] [address] Sep, [facility] [place] [facility] [address] [id number] [place] [address] Aug, [facility] [place] [facility] [address] [id number] [place] [address] Aug, [facility] [place] [facility] [address] [id number] [place] [address] Aug, [facility] [place] [facility] [address] [id number] [place] [address] Aug, [facility] [place] [facility] [address] [facility] [id number] [place] [address] Aug, [facility] [place] [facility] [address] [id number] [address] Aug, [facility] [place] [facility] [address] [id number], [place] [address] Aug, [facility] [place] [facility] [address] [id number], [place] [address] Aug, [facility] [place] [facility] [address] [id number], [place] [address] Aug, [facility] [place] [facility] [address] [facility] [id number] [address] Aug, [facility] [place] [facility] [address] [id number] [place] [address] Jul, [facility] [place] [facility] [address] [id number] [place] [address] Jul, [facility] [place] [facility] [address] [id number] [place] [address] Jul, [facility] [place] [facility] [address] [id number] [place] [address] Jul, [facility] [place] [facility] [address] [id number] [place] [address] Jul, [facility] [place] [facility] [address] [id number] [place] [address] Jul, [facility] [place] [facility] [address] [id number] [place] [address] Jul, [facility] [place] [facility] [address] [id number] [place] [address] Jul, [facility] [place] [facility] [address] [id number] [place] [address] Jul, [facility] [place] [facility] [address] [id number] [place] [address] Jun, [facility] [place] [facility] [address] [id number] [place] [address] Jun, [facility] [place] [facility] [address] [id number] [place] [address] Jun, [facility] [place] [facility] [address] [id number] [place] [address] Jun, [facility] [place] [facility] [address] [id number] [place] [address] Jun, [facility] [place] [facility] [address] [id number] [place] [address] Jun, [facility] [place] [facility] [address] [id number] [place] [address] May, [facility] [place] [facility] [address] [id number] [place] [address] 30 May, 2014 [facility] [place] [facility] [address] [id number] [place] [address] May, [facility] [place] [facility] [address] [id number] [place] [address] 14 May, 2014 [facility] [place] [facility] [address] [id number] [place] [address] May, [facility] [place] [facility] [address] [id number] [place] [address] May, [facility] [place] [facility] [address] [id number] [place] [address] May, [facility] [place] [facility] [address] [id number] [place] [address] Apr, [facility] [place] [facility] [address] [id number] [place] [address] Apr, [facility] [place] [facility] [address] [id number] [place] [address] Apr, [facility] [place] [facility] [address] [id number] [place] [address] Apr, [facility] [place] [facility] [address] [id number] [address] Feb, [facility] [place] [facility] [address] [id number], [place] [address] Feb, [facility] [place] [facility] [address] [id number] [place] [address] Feb, [facility] [place] [facility] [address] [id number] [place] [address] Feb, [facility] [place] [facility] [address] [id number] [place] [address] Feb, [facility] [place] [facility] [address] [id number] [place] [address] Feb, 2013 [facility] [place] [facility] [address] [id number] [place] [address] Feb, 2013 [facility] [place] [facility] [address] [id number] [place] [address] Feb, [facility] [place] [facility] [address] [id number] [place] [address] Feb, 2013 [facility] [place] [facility] [address] [id number] [place] [address] Feb, 2013 [facility] [place] [facility] [address] [id number] [place] [address] Feb, [facility] [place] [facility] [address] [id number] [place] [address] Feb, 2013 [facility] [place] [facility] [address] [id number] [place] [address] Feb, 2013 [facility] [place] [facility] [address] [id number] [place] [address] Feb, [facility] [place] [facility] [address] [id number] [place] [address] Feb, [facility] [place] [facility] [address] [id number] [place] [address] Feb, [facility] [place] [facility] [address] [id number] [place] [address] Jan, [facility] [place] [facility] [address] [id number] [place] [address] Jan, [facility] [place] [facility] [address] [id number] [place] [address] Jan, [facility] [place] [facility] [address] [id number] [place] [address] Jan, [facility] [place] [facility] [address] [id number] [place] [address] Jan, [facility] [place] [facility] [address] [id number] [place] [address] Jan, [facility] [place] [facility] [address] [id number] [place] [address] Jan, [facility] [place] [facility] [address] [id number] [place] [address] Jan, [facility] [place] [facility] [address] [id number] [place] [address] Jan, [facility] [place] [facility] [address] [id number] [place] [address] Jan, [facility] [place] [facility] [address] [id number] [place] [address] Jan, [facility] [place] [facility] [address] [id number] [place] [address] Jan, [facility] [place] [facility] [address] [id number] [place] [address] Jan, [facility] [place] [facility] [address] [id number] [place] [address] Jan, [facility] [place] [facility] [address] [id number] [place] [address] Jan, [facility] [place] [facility] [address] [id number] [place] [address] Jan, [facility] [place] [facility] [address] [id number] [place] [address] Jan, [facility] [place] [facility] [address] [id number] [place] [address] Jan, [facility] [place] [facility] [address] [id number] [place] [address] Jan, [facility] [place] [facility] [address] [id number] [place] [address] Jan, [facility] [place] [facility] [id number] [place] [address] Jan, [facility] [place] [address] [address] Jan, [facility] [place] [address] [address] Jan, [facility] [place] [address] [address] Jan, [facility] [place] [address] [address] Jan, [facility] [place] [address] [address] Jan, [facility] [place] [address] [address] Jan, [facility] [place] [address] [address] Jan, [facility] [place] [address] [address] Jan, [facility] [place] [address] [address] Jan, [facility] [place] [address] [address] Jan, [facility] [place] [id number] [address] Jan, [facility] [place] [id number] [address] Jun, [facility] [place] [id number] [address] Jan, IMMUNIZATIONS No Known Immunizations SOCIAL HISTORY Never Assessed REASON FOR VISIT [facility] [place] PLAN OF CARE VITAL SIGNS MEDICATIONS Unknown [...] bilateral carpal tunnel Medical History 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 Shah Medical History positive drug screen for meth in hospital ER 01/2014 Medical History 02/11/2014 Ameritox positive for multiple substances not prescribed Surgical History cholecystectomy Surgical History gastric surgery mesh in lower portion of stomach Surgical History kidney surgery D&C Surgical History afscunfgbwrl-uheii-zwdlcjax uterus Surgical History orthopedic surgery leg amputation by Dr. Hodge at [facility] r/t osteoporosis 2006 Hospitalization History Surgery(s)/Childbirth(s) only Hospitalization History Pancreatitis, gastritis, abd pain-[facility] 08/10/16
--- OUTSIDE RECORDS SUMMARY | 2019-02-04 20:54 | XMS REPORT ---
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 Name Role Phone Migration, Doctor Unavailable Unavailable PROBLEMS Type Condition ICD9-CM Code [id number] Code Onset Dates Condition Status SNOMED Code Problem Chronic pancreatitis, unspecified pancreatitis type K86.1 Active 596758119 Problem Chronic obstructive pulmonary disease, unspecified COPD type J44.9 Active 37679584 Problem Phantom limb pain G54.7 Active 787301318 ALLERGIES No Information ENCOUNTERS Encounter Location Date Diagnosis [facility] [id number] [place] [address] December, [facility] [id number] [place] [address] Nov, Chronic pancreatitis, unspecified pancreatitis type K86.1 [facility] [id number] [place] [address] Aug, [facility] [id number] [place] [address] Mar, [facility] [id number] [place] [address] Feb, Chronic obstructive pulmonary disease, unspecified COPD type J44.9 [facility] [address] [address] Jan, [facility] [id number] [place] [address] Jan, [facility] [id number] [place] [address] December, [facility] [id number] [place] [address] Nov, [facility] [id number] [place] [address] Nov, Chronic pancreatitis, unspecified pancreatitis type K86.1 ; Chronic obstructive pulmonary disease, unspecified COPD type J44.9 ; Phantom limb pain G54.7 and Allergic state, initial encounter T78.40XA [place] [id number] [place] [address] Sep, [place] [address] [address] Jul, [place] [address] [address] Jul, [place] [address] [address] Jul, [place] [address] [address] Oct, Nausea R11.0 [place] [address] [address] 10 Oct, 2015 Phantom limb pain G54.7 ; Chronic airway obstruction, not elsewhere classified 496 ; Altered mental status 780.97 ; Encounter for long-term (current) use of high-risk medication V58.69 ; Anxiety 300.00 and Allergic rhinitis 477.9 [place] [id number] [place] [address] Aug, [place] [id number] [place] [address] Jun, [place] [id number] [place] [address] Jun, [place] [address] [address] Apr, Chronic pain following surgery or procedure 338.28 ; COPD (chronic obstructive pulmonary disease) with acute bronchitis 491.22 ; Allergic rhinitis 477.9 ; History of drug abuse 305.93 ; Encounter for long-term (current) use of high-risk medication V58.69 ; Dyspepsia 536.8 ; Anxiety 300.00 and Noncompliance V15.81 [facility] [address] [address] Mar, [facility] [address] [address] Feb, [facility] [id number] [place] [address] Feb, Chronic airway obstruction, not elsewhere classified 496 [facility] [address] [facility] [id number] [address] Feb, [facility] [id number] [place] [address] Jan, [facility] [id number] [address] Jan, [facility] [id number] [place] [address] 14 Nov, 2014 [facility] [address] [address] Nov, [facility] [address] [address] Oct, [facility] [address] [address] Oct, [facility] [address] [address] Oct, [facility] [id number] [address] Oct, [facility] [id number] [address] Oct, [facility] [id number] [address] Oct, [facility] [address] [address] Sep, [facility] [place] [facility] [address] [id number] [place] [address] Sep, [facility] [place] [facility] [address] [id number] [place] [address] Sep, [facility] [place] [facility] [address] [id number] [place] [address] Sep, [facility] [place] [facility] [address] [id number] [place] [address] Sep, [facility] [place] [facility] [address] [id number] [place] [address] Sep, [facility] [place] [facility] [address] [id number] [place] [address] Aug, [facility] [place] [facility] [address] [id number] [place] [address] Aug, [facility] [place] [facility] [address] [id number] [place] [address] Aug, [facility] [place] [facility] [address] [id number] [place] [address] Aug, [facility] [place] [facility] [address] [facility] [id number] [place] [address] Aug, [facility] [place] [facility] [address] [id number] [place] [address] Aug, [facility] [place] [facility] [address] [id number] [place] [address] Aug, [facility] [place] [facility] [address] [id number] [place] [address] Aug, [facility] [place] [facility] [address] [id number] [place] [address] Aug, [facility] [place] [facility] [address] [facility] [id number] [place] [address] Aug, [facility] [place] [facility] [address] [id number] [place] [address] Jul, [facility] [place] [facility] [address] [id number] [place] [address] Jul, [facility] [place] [facility] [address] [id number] [place] [address] Jul, [facility] [place] [facility] [address] [id number] [place] [address] Jul, [facility] [place] [facility] [address] [id number] [place] [address] Jul, [facility] [place] [facility] [address] [id number] [place] [address] Jul, [facility] [place] [facility] [address] [id number] [place] [address] Jul, [facility] [place] [facility] [address] [id number] [place] [address] Jul, [facility] [place] [facility] [address] [id number] [place] [address] Jul, [facility] [place] [facility] [address] [id number] [place] [address] Jun, [facility] [place] [facility] [address] [id number] [place] [address] Jun, [facility] [place] [facility] [address] [id number] [place] [address] Jun, [facility] [place] [facility] [address] [id number] [place] [address] Jun, [facility] [place] [facility] [address] [id number] [place] [address] Jun, [facility] [place] [facility] [address] [id number] [place] [address] Jun, [facility] [place] [facility] [address] [id number] [place] [address] May, [facility] [place] [facility] [address] [id number] [place] [address] 30 May, 2014 [facility] [place] [facility] [address] [id number] [place] [address] May, [facility] [place] [facility] [address] [id number] [place] [address] 14 May, 2014 [facility] [place] [facility] [address] [id number] [place] [address] May, [facility] [place] [facility] [address] [id number] [place] [address] May, [facility] [place] [facility] [address] [id number] [place] [address] May, [facility] [place] [facility] [address] [id number] [place] [address] Apr, [facility] [place] [facility] [address] [id number] [place] [address] Apr, [facility] [place] [facility] [address] [id number] [place] [address] Apr, [facility] [place] [facility] [address] [id number] [place] [address] Apr, [facility] [place] [facility] [address] [id number] [place] [address] Feb, [facility] [place] [facility] [address] [id number] [place] [address] Feb, [facility] [place] [facility] [address] [id number] [place] [address] Feb, [facility] [place] [facility] [address] [id number] [place] [address] Feb, [facility] [place] [facility] [address] [id number] [place] [address] Feb, [facility] [place] [facility] [address] [id number] [place] [address] Feb, 2013 [facility] [place] [facility] [address] [id number] [place] [address] Feb, 2013 [facility] [place] [facility] [address] [id number] [place] [address] Feb, [facility] [place] [facility] [address] [id number] [place] [address] Feb, 2013 [facility] [place] [facility] [address] [id number] [place] [address] Feb, 2013 [facility] [place] [facility] [address] [id number] [place] [address] Feb, [facility] [place] [facility] [address] [id number] [place] [address] Feb, 2013 [facility] [place] [facility] [address] [id number] [place] [address] Feb, 2013 [facility] [place] [facility] [address] [id number] [place] [address] Feb, [facility] [place] [facility] [address] [id number] [place] [address] Feb, [facility] [place] [facility] [address] [id number] [place] [address] Feb, [facility] [place] [facility] [address] [id number] [place] [address] Jan, [facility] [place] [facility] [address] [id number] [place] [address] Jan, [facility] [place] [facility] [address] [id number] [place] [address] Jan, [facility] [place] [facility] [address] [id number] [place] [address] Jan, [facility] [place] [facility] [address] [id number] [place] [address] Jan, [facility] [place] [facility] [address] [id number] [place] [address] Jan, [facility] [place] [facility] [address] [id number] [place] [address] Jan, [facility] [place] [facility] [address] [id number] [place] [address] Jan, [facility] [place] [facility] [address] [id number] [place] [address] Jan, [facility] [place] [facility] [address] [id number] [place] [address] Jan, [facility] [place] [facility] [address] [id number] [place] [address] Jan, [facility] [place] [facility] [address] [id number] [place] [address] Jan, [facility] [place] [facility] [address] [id number] [place] [address] Jan, [facility] [place] [facility] [address] [id number] [place] [address] Jan, [facility] [place] [facility] [address] [id number] [place] [address] Jan, [facility] [place] [facility] [address] [id number] [place] [address] Jan, [facility] [place] [facility] [address] [id number] [place] [address] Jan, [facility] [place] [facility] [address] [id number] [place] [address] Jan, [facility] [place] [facility] [address] [id number] [place] [address] Jan, [facility] [place] [facility] [address] [id number] [place] [address] Jan, [facility] [place] [facility] [address] [id number] [place] [address] Jan, [facility] [address] [address] Jan, [facility] [address] [address] Jan, [facility] [address] [address] Jan, [facility] [address] [address] Jan, [facility] [address] [address] Jan, [facility] [address] [address] Jan, [facility] [address] [address] Jan, [facility] [address] [address] Jan, [facility] [address] [address] Jan, [facility] [address] [address] Jan, [facility] [id number] [address] Jan, [facility] [id number] [address] Jun, [facility] [id number] [address] Jan, IMMUNIZATIONS No Known Immunizations SOCIAL HISTORY Never Assessed REASON FOR VISIT [facility] [place] PLAN OF CARE VITAL SIGNS MEDICATIONS Unknown [...] bilateral carpal tunnel Medical History fired 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 Shah Medical History positive drug screen for meth in hospital ER 01/2014 Medical History 02/11/2014 Ameritox positive for multiple substances not prescribed Surgical History cholecystectomy Surgical History gastric surgery mesh in lower portion of stomach Surgical History kidney surgery D&C Surgical History skrcmroraapg-diwze-cmmyrbxz uterus Surgical History orthopedic surgery leg amputation by Dr. Hodge at [facility] r/t osteoporosis 2006 Hospitalization History Surgery(s)/Childbirth(s) only Hospitalization History Pancreatitis, gastritis, abd pain-[facility] 08/10/16
--- OUTSIDE RECORDS SUMMARY | 2019-02-04 20:54 | XMS REPORT ---
Author Author Migration, Doctor Organization [facility] Address Unknown Phone Unavailable Care Team Providers Care Lead Programmer Name Role Phone Migration, Doctor Unavailable Unavailable PROBLEMS Type Condition ICD9-CM Code [id number] Code Onset Dates Condition Status SNOMED Code Problem Chronic pancreatitis, unspecified pancreatitis type K86.1 Active 261880981 Problem Chronic obstructive pulmonary disease, unspecified COPD type J44.9 Active 98912082 Problem Phantom limb pain G54.7 Active 960309752 ALLERGIES No Information ENCOUNTERS Encounter Location Date Diagnosis [facility] [id number] [place] [address] December, [facility] [id number] [place] [address] Nov, Chronic pancreatitis, unspecified pancreatitis type K86.1 [facility] [id number] [place] [address] Aug, [facility] [id number] [place] [address] Mar, [facility] [id number] [place] [address] Feb, Chronic obstructive pulmonary disease, unspecified COPD type J44.9 [facility] [address] [address] Jan, [facility] [id number] [place] [address] Jan, [facility] [id number] [place] [address] December, [facility] [id number] [place] [address] Nov, [facility] [id number] [place] [address] Nov, Chronic pancreatitis, unspecified pancreatitis type K86.1 ; Chronic obstructive pulmonary disease, unspecified COPD type J44.9 ; Phantom limb pain G54.7 and Allergic state, initial encounter T78.[address] [place] [id number] [place] [address] Sep, [place] [address] [address] Jul, [place] [address] [address] Jul, [place] [address] [address] Jul, [place] [address] [address] Oct, Nausea R11.0 [place] [address] [address] 10 Oct, 2015 Phantom limb pain G54.7 ; Chronic airway obstruction, not elsewhere classified 496 ; Altered mental status 780.97 ; Encounter for long-term (current) use of high-risk medication V58.69 ; Anxiety 300.00 and Allergic rhinitis 477.9 [place] [id number] [place] [address] Aug, [place] [id number] [place] [address] Jun, [place] [id number] [place] [address] Jun, [place] [address] [address] Apr, Chronic pain following surgery or procedure 338.28 ; COPD (chronic obstructive pulmonary disease) with acute bronchitis 491.22 ; Allergic rhinitis 477.9 ; History of drug abuse 305.93 ; Encounter for long-term (current) use of high-risk medication V58.69 ; Dyspepsia 536.8 ; Anxiety 300.00 and Noncompliance V15.81 [facility] [address] [address] Mar, [facility] [address] [address] Feb, [facility] [id number] [place] [address] Feb, Chronic airway obstruction, not elsewhere classified 496 [facility] [address] [facility] [id number] [address] Feb, [facility] [id number] [place] [address] Jan, [facility] [id number] [address] Jan, [facility] [id number] [place] [address] 14 Nov, 2014 [facility] [address] [address] Nov, [facility] [address] [address] Oct, [facility] [address], [place] [address] Oct, [facility] [address], [place] [address] Oct, [facility] [id number] [address] Oct, [facility] [id number] [address] Oct, [facility] [id number] [address] Oct, [facility] [address], [place] [address] Sep, [facility] [place] [facility] [address] [id number] [place] [address] Sep, [facility] [place] [facility] [address] [id number] [place] [address] Sep, [facility] [place] [facility] [address] [id number] [place] [address] Sep, [facility] [place] [facility] [address] [id number] [place] [address] Sep, [facility] [place] [facility] [address] [id number] [place] [address] Sep, [facility] [place] [facility] [address] [id number] [place] [address] Aug, [facility] [place] [facility] [address] [id number] [place] [address] Aug, [facility] [place] [facility] [address] [id number] [place] [address] Aug, [facility] [place] [facility] [address] [id number] [place] [address] Aug, [facility] [place] [facility] [address] [facility] [id number] [place] [address] Aug, [facility] [place] [facility] [address] [id number], [place] [address] Aug, [facility] [place] [facility] [address] [id number], [place] [address] Aug, [facility] [place] [facility] [address] [id number], [place] [address] Aug, [facility] [place] [facility] [address] [id number], [place] [address] Aug, [facility] [place] [facility] [address] [facility] [id number] [address] Aug, [facility] [place] [facility] [address] [id number] [place] [address] Jul, [facility] [place] [facility] [address] [id number] [place] [address] Jul, [facility] [place] [facility] [address] [id number] [place] [address] Jul, [facility] [place] [facility] [address] [id number] [place] [address] Jul, [facility] [place] [facility] [address] [id number] [place] [address] Jul, [facility] [place] [facility] [address] [id number] [place] [address] Jul, [facility] [place] [facility] [address] [id number] [place] [address] Jul, [facility] [place] [facility] [address] [id number] [place] [address] Jul, [facility] [place] [facility] [address] [id number] [place] [address] Jul, [facility] [place] [facility] [address] [id number] [place] [address] Jun, [facility] [place] [facility] [address] [id number] [place] [address] Jun, [facility] [place] [facility] [address] [id number] [place] [address] Jun, [facility] [place] [facility] [address] [id number] [place] [address] Jun, [facility] [place] [facility] [address] [id number] [place] [address] Jun, [facility] [place] [facility] [address] [id number] [place] [address] Jun, [facility] [place] [facility] [address] [id number] [place] [address] May, [facility] [place] [facility] [address] [id number] [place] [address] 30 May, 2014 [facility] [place] [facility] [address] [id number] [place] [address] May, [facility] [place] [facility] [address] [id number] [place] [address] 14 May, 2014 [facility] [place] [facility] [address] [id number] [place] [address] May, [facility] [place] [facility] [address] [id number] [place] [address] May, [facility] [place] [facility] [address] [id number] [place] [address] May, [facility] [place] [facility] [address] [id number] [place] [address] Apr, [facility] [place] [facility] [address] [id number] [place] [address] Apr, [facility] [place] [facility] [address] [id number] [place] [address] Apr, [facility] [place] [facility] [address] [id number] [place] [address] Apr, [facility] [place] [facility] [address] [id number], [place] [address] Feb, [facility] [place] [facility] [address] [id number], [place] [address] Feb, [facility] [place] [facility] [address] [id number] [place] [address] Feb, [facility] [place] [facility] [address] [id number] [place] [address] Feb, [facility] [place] [facility] [address] [id number] [place] [address] Feb, [facility] [place] [facility] [address] [id number] [place] [address] Feb, 2013 [facility] [place] [facility] [address] [id number] [place] [address] Feb, 2013 [facility] [place] [facility] [address] [id number] [place] [address] Feb, [facility] [place] [facility] [address] [id number] [place] [address] Feb, 2013 [facility] [place] [facility] [address] [id number] [place] [address] Feb, 2013 [facility] [place] [facility] [address] [id number] [place] [address] Feb, [facility] [place] [facility] [address] [id number] [place] [address] Feb, 2013 [facility] [place] [facility] [address] [id number] [place] [address] Feb, 2013 [facility] [place] [facility] [address] [id number] [place] [address] Feb, [facility] [place] [facility] [address] [id number] [place] [address] Feb, [facility] [place] [facility] [address] [id number] [place] [address] Feb, [facility] [place] [facility] [address] [id number] [place] [address] Jan, [facility] [place] [facility] [address] [id number] [place] [address] Jan, [facility] [place] [facility] [address] [id number] [place] [address] Jan, [facility] [place] [facility] [address] [id number] [place] [address] Jan, [facility] [place] [facility] [address] [id number] [place] [address] Jan, [facility] [place] [facility] [address] [id number] [place] [address] Jan, [facility] [place] [facility] [address] [id number] [place] [address] Jan, [facility] [place] [facility] [address] [id number] [place] [address] Jan, [facility] [place] [facility] [address] [id number] [place] [address] Jan, [facility] [place] [facility] [address] [id number] [place] [address] Jan, [facility] [place] [facility] [address] [id number] [place] [address] Jan, [facility] [place] [facility] [address] [id number] [place] [address] Jan, [facility] [place] [facility] [address] [id number] [place] [address] Jan, [facility] [place] [facility] [address] [id number] [place] [address] Jan, [facility] [place] [facility] [address] [id number] [place] [address] Jan, [facility] [place] [facility] [address] [id number] [place] [address] Jan, [facility] [place] [facility] [address] [id number] [place] [address] Jan, [facility] [place] [facility] [address] [id number] [place] [address] Jan, [facility] [place] [facility] [address] [id number] [place] [address] Jan, [facility] [place] [facility] [address] [id number] [place] [address] Jan, [facility] [place] [facility] [address] [id number] [place] [address] Jan, [facility] [address], [place] [address] Jan, [facility] [address], [place] [address] Jan, [facility] [address], [place] [address] Jan, [facility] [address], [place] [address] Jan, [facility] [address], [place] [address] Jan, [facility] [address], [place] [address] Jan, [facility] [address], [place] [address] Jan, [facility] [address], [place] [address] Jan, [facility] [address], [place] [address] Jan, [facility] [address], [place] [address] Jan, [facility] [id number], [place] [address] Jan, [facility] [id number], [place] [address] Jun, [facility] [id number], [place] [address] Jan, IMMUNIZATIONS No Known Immunizations SOCIAL HISTORY Never Assessed REASON FOR VISIT [facility] [place] VITAL SIGNS MEDICATIONS Unknown [...] bilateral carpal tunnel Medical History 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 Shah Medical History positive drug screen for meth in hospital ER 01/2014 Medical History 02/11/2014 Ameritox positive for multiple substances not prescribed Surgical History cholecystectomy Surgical History gastric surgery mesh in lower portion of stomach Surgical History kidney surgery D&C Surgical History llcrhbmzlyny-qkohh-puiuhvfb uterus Surgical History orthopedic surgery leg amputation by Dr. Hodge at [facility] r/t osteoporosis 2006 Hospitalization History Surgery(s)/Childbirth(s) only Hospitalization History Pancreatitis, gastritis, abd pain-[facility] 08/10/16
--- OUTSIDE RECORDS SUMMARY | 2019-02-04 20:55 | XMS REPORT ---
Author Author Migration, Doctor Organization [facility] Address Unknown Phone Unavailable Care Team Providers Care Sr. Manager Marketing Name Role Phone Migration, Doctor Unavailable Unavailable PROBLEMS Type Condition ICD9-CM Code [id number] Code Onset Dates Condition Status SNOMED Code Problem Chronic pancreatitis, unspecified pancreatitis type K86.1 Active [id number] Problem Chronic obstructive pulmonary disease, unspecified COPD type J44.9 Active 32065110 Problem Phantom limb pain G54.7 Active [id number] ALLERGIES No Information ENCOUNTERS Encounter Location Date Diagnosis [facility] [id number] [place] [address] December, [facility] [id number] [place] [address] Nov, Chronic pancreatitis, unspecified pancreatitis type K86.1 [facility] [id number] [place] [address] Aug, [facility] [id number] [place] [address] Mar, [facility] [id number] [place] [address] Feb, Chronic obstructive pulmonary disease, unspecified COPD type J44.9 [facility] [address] [address] Jan, [facility] [id number] [place] [address] Jan, [facility] [id number] [place] [address] December, [facility] [id number] [place] [address] Nov, [facility] [id number] [place] [address] Nov, Chronic pancreatitis, unspecified pancreatitis type K86.1 ; Chronic obstructive pulmonary disease, unspecified COPD type J44.9 ; Phantom limb pain G54.7 and Allergic state, initial encounter T78.40XA [place] [id number] [place] [address] Sep, [place] [address] [address] Jul, [place] [address] [address] Jul, [place] [address] [address] Jul, [place] [address] [address] Oct, Nausea R11.0 [place] [address] [address] 10 Oct, 2015 Phantom limb pain G54.7 ; Chronic airway obstruction, not elsewhere classified 496 ; Altered mental status 780.97 ; Encounter for long-term (current) use of high-risk medication V58.69 ; Anxiety 300.00 and Allergic rhinitis 477.[address] [place] [id number] [place] [address] Aug, [place] [id number] [place] [address] Jun, [place] [id number] [place] [address] Jun, [place] [address] [address] Apr, Chronic pain following surgery or procedure 338.28 ; COPD (chronic obstructive pulmonary disease) with acute bronchitis 491.22 ; Allergic rhinitis 477.9 ; History of drug abuse 305.93 ; Encounter for long-term (current) use of high-risk medication V58.69 ; Dyspepsia 536.8 ; Anxiety 300.[address] [facility] [address] [address] Mar, [facility] [address] [address] Feb, [facility] [id number] [place] [address] Feb, Chronic airway obstruction, not elsewhere classified 496 [facility] [address] [facility] [id number] [address] Feb, [facility] [id number] [place] [address] Jan, [facility] [id number] [address] Jan, [facility] [id number] [place] [address] [address], [address] [facility] [address] [address] Nov, [facility] [address] [address] Oct, [facility] [address] [place] [address] Oct, [facility] [address] [address] Oct, [facility] [id number] [address] Oct, [facility] [id number] [address] Oct, [facility] [id number] [address] Oct, [facility] [address], [place] [address] Sep, [facility] [place] [facility] [address] [id number] [place] [address] Sep, [facility] [place] [facility] [address] [id number] [place] [address] Sep, [facility] [place] [facility] [address] [id number] [place] [address] Sep, [facility] [place] [facility] [address] [id number] [place] [address] Sep, [facility] [place] [facility] [address] [id number] [place] [address] Sep, [facility] [place] [facility] [address] [id number] [place] [address] Aug, [facility] [place] [facility] [address] [id number] [place] [address] Aug, [facility] [place] [facility] [address] [id number] [place] [address] Aug, [facility] [place] [facility] [address] [id number] [place] [address] Aug, [facility] [place] [facility] [address] [facility] [id number] [place] [address] Aug, [facility] [place] [facility] [address] [id number], [place] [address] Aug, [facility] [place] [facility] [address] [id number], [place] [address] Aug, [facility] [place] [facility] [address] [id number], [place] [address] Aug, [facility] [place] [facility] [address] [id number], [place] [address] Aug, [facility] [place] [facility] [address] [facility] [id number], [place] [address] Aug, [facility] [place] [facility] [address] [id number] [place] [address] Jul, [facility] [place] [facility] [address] [id number] [place] [address] Jul, [facility] [place] [facility] [address] [id number] [place] [address] Jul, [facility] [place] [facility] [address] [id number] [place] [address] Jul, [facility] [place] [facility] [address] [id number] [place] [address] Jul, [facility] [place] [facility] [address] [id number] [place] [address] Jul, [facility] [place] [facility] [address] [id number] [place] [address] Jul, [facility] [place] [facility] [address] [id number] [place] [address] Jul, [facility] [place] [facility] [address] [id number] [place] [address] Jul, [facility] [place] [facility] [address] [id number] [place] [address] Jun, [facility] [place] [facility] [address] [id number] [place] [address] Jun, [facility] [place] [facility] [address] [id number] [place] [address] Jun, [facility] [place] [facility] [address] [id number] [place] [address] Jun, [facility] [place] [facility] [address] [id number] [place] [address] Jun, [facility] [place] [facility] [address] [id number] [place] [address] Jun, [facility] [place] [facility] [address] [id number] [place] [address] May, [facility] [place] [facility] [address] [id number] [place] [address] 30 May, 2014 [facility] [place] [facility] [address] [id number] [place] [address] May, [facility] [place] [facility] [address] [id number] [place] [address] 14 May, 2014 [facility] [place] [facility] [address] [id number] [place] [address] May, [facility] [place] [facility] [address] [id number] [place] [address] May, [facility] [place] [facility] [address] [id number] [place] [address] May, [facility] [place] [facility] [address] [id number] [place] [address] Apr, [facility] [place] [facility] [address] [id number] [place] [address] Apr, [facility] [place] [facility] [address] [id number] [place] [address] Apr, [facility] [place] [facility] [address] [id number] [place] [address] Apr, [facility] [place] [facility] [address] [id number], [place] [address] Feb, [facility] [place] [facility] [address] [id number], [place] [address] Feb, [facility] [place] [facility] [address] [id number] [place] [address] Feb, [facility] [place] [facility] [address] [id number] [place] [address] Feb, [facility] [place] [facility] [address] [id number] [place] [address] Feb, [facility] [place] [facility] [address] [id number] [place] [address] Feb, 2013 [facility] [place] [facility] [address] [id number] [place] [address] Feb, 2013 [facility] [place] [facility] [address] [id number] [place] [address] Feb, [facility] [place] [facility] [address] [id number] [place] [address] Feb, 2013 [facility] [place] [facility] [address] [id number] [place] [address] Feb, 2013 [facility] [place] [facility] [address] [id number] [place] [address] Feb, [facility] [place] [facility] [address] [id number] [place] [address] Feb, 2013 [facility] [place] [facility] [address] [id number] [place] [address] Feb, 2013 [facility] [place] [facility] [address] [id number] [place] [address] Feb, [facility] [place] [facility] [address] [id number] [place] [address] Feb, [facility] [place] [facility] [address] [id number] [place] [address] Feb, [facility] [place] [facility] [address] [id number] [place] [address] Jan, [facility] [place] [facility] [address] [id number] [place] [address] Jan, [facility] [place] [facility] [address] [id number] [place] [address] Jan, [facility] [place] [facility] [address] [id number] [place] [address] Jan, [facility] [place] [facility] [address] [id number] [place] [address] Jan, [facility] [place] [facility] [address] [id number] [place] [address] Jan, [facility] [place] [facility] [address] [id number] [place] [address] Jan, [facility] [place] [facility] [address] [id number] [place] [address] Jan, [facility] [place] [facility] [address] [id number] [place] [address] Jan, [facility] [place] [facility] [address] [id number] [place] [address] Jan, [facility] [place] [facility] [address] [id number] [place] [address] Jan, [facility] [place] [facility] [address] [id number] [place] [address] Jan, [facility] [place] [facility] [address] [id number] [place] [address] Jan, [facility] [place] [facility] [address] [id number] [place] [address] Jan, [facility] [place] [facility] [address] [id number] [place] [address] Jan, [facility] [place] [facility] [address] [id number] [place] [address] Jan, [facility] [place] [facility] [address] [id number] [place] [address] Jan, [facility] [place] [facility] [address] [id number] [place] [address] Jan, [facility] [place] [facility] [address] [id number] [place] [address] Jan, [facility] [place] [facility] [address] [id number] [place] [address] Jan, [facility] [place] [facility] [id number] [place] [address] Jan, [facility] [address] [address] Jan, [facility] [address] [address] Jan, [facility] [address] [address] Jan, [facility] [address] [address] Jan, [facility] [address] [address] Jan, [facility] [address] [address] Jan, [facility] [address] [address] Jan, [facility] [address], [place] [address] Jan, [facility] [address] [place] [address] Jan, [facility] [address], [place] [address] Jan, [facility] [id number] [address] Jan, [facility] [id number] [address] Jun, [facility] [id number] [address] Jan, IMMUNIZATIONS No Known Immunizations SOCIAL HISTORY Never Assessed REASON FOR VISIT [facility] PLAN OF CARE VITAL SIGNS MEDICATIONS Unknown [...] carpal tunnel Medical History fired from [facility] [employer] [employer]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 Shah Medical History positive drug screen for meth in hospital ER 01/2014 Medical History 02/11/2014 Ameritox positive for multiple substances not prescribed Surgical History cholecystectomy Surgical History gastric surgery mesh in lower portion of stomach Surgical History kidney surgery D&C Surgical History dwhowlbdfbgo-byhic-skzktxxk uterus Surgical History orthopedic surgery leg amputation by Dr. Hodge at [facility] r/t osteoporosis 2006 Hospitalization History Surgery(s)/Childbirth(s) only Hospitalization History Pancreatitis, gastritis, abd pain-[facility] 08/10/16
--- OUTSIDE RECORDS SUMMARY | 2019-02-04 20:55 | XMS REPORT ---
Author Author Migration, Doctor Organization [facility] Address Unknown Phone Unavailable Care Team Providers Care Driver License Examiner Name Role Phone Migration, Doctor Unavailable Unavailable PROBLEMS Type Condition ICD9-CM Code JCS36-XY Code Onset Dates Condition Status SNOMED Code Problem Chronic pancreatitis, unspecified pancreatitis type K86.1 Active 916088864 Problem Chronic obstructive pulmonary disease, unspecified COPD type J44.9 Active 97751338 Problem Phantom limb pain G54.7 Active 492024939 ALLERGIES No Information ENCOUNTERS Encounter Location Date Diagnosis [facility] [id number] [place] [address] December, [facility] [id number] [place] [address] Nov, Chronic pancreatitis, unspecified pancreatitis type K86.1 [facility] [id number] [place] [address] Aug, [facility] [id number] [place] [address] Mar, [facility] [id number] [place] [address] Feb, Chronic obstructive pulmonary disease, unspecified COPD type J44.9 [facility] [id number] [address] Jan, [facility] [id number] [place] [address] Jan, [facility] [id number] [place] [address] December, [facility] [id number] [place] [address] Nov, [facility] [id number] [place] [address] Nov, Chronic pancreatitis, unspecified pancreatitis type K86.1 ; Chronic obstructive pulmonary disease, unspecified COPD type J44.9 ; Phantom limb pain G54.7 and Allergic state, initial encounter T78.40XA [place] [id number] [place] [address] Sep, [place] [address] [address] Jul, [place] [address] [address] Jul, [place] [address] [address] Jul, [place] [address] [address] Oct, Nausea R11.0 [place] [address] [address] 10 Oct, 2015 Phantom limb pain G54.7 ; Chronic airway obstruction, not elsewhere classified 496 ; Altered mental status 780.97 ; Encounter for long-term (current) use of high-risk medication V58.69 ; Anxiety 300.00 and Allergic rhinitis 477.9 [place] [id number] [place] [address] Aug, [place] [id number] [place] [address] Jun, [facility] [facility] [id number] [place] [address] Jun, [place] [address] [address] Apr, Chronic pain following surgery or procedure 338.28 ; COPD (chronic obstructive pulmonary disease) with acute bronchitis 491.22 ; Allergic rhinitis 477.9 ; History of drug abuse 305.93 ; Encounter for long-term (current) use of high-risk medication V58.69 ; Dyspepsia 536.8 ; Anxiety 300.00 and Noncompliance V15.81 [facility] [address] [address] Mar, [facility] [address] [address] Feb, [facility] [id number] [place] [address] Feb, Chronic airway obstruction, not elsewhere classified 496 [facility] [address] [facility] [id number] [address] Feb, [facility] [id number] [place] [address] Jan, [facility] [id number] [address] Jan, [facility] [id number] [place] [address] 14 Nov, 2014 [facility] [id number] [address] Nov, [facility] [id number] [address] Oct, [facility] [id number] [address] Oct, [facility] [id number] [address] Oct, [facility] [id number] [address] Oct, [facility] [id number] [address] Oct, [facility] [id number] [address] Oct, [facility] [address] [address] Sep, [facility] [place] [facility] [address] [id number] [place] [address] Sep, [facility] [place] [facility] [address] [id number] [place] [address] Sep, [facility] [place] [facility] [address] [id number] [place] [address] Sep, [facility] [place] [facility] [address] [id number] [place] [address] Sep, [facility] [place] [facility] [address] [id number] [place] [address] Sep, [facility] [place] [facility] [address] [id number] [place] [address] Aug, [facility] [place] [facility] [address] [id number] [place] [address] Aug, [facility] [place] [facility] [address] [id number] [place] [address] Aug, [facility] [place] [facility] [address] [id number] [place] [address] Aug, [facility] [place] [facility] [address] [facility] [id number] [place] [address] Aug, [facility] [place] [facility] [address] [id number] [address] Aug, [facility] [place] [facility] [address] [id number], [place] [address] Aug, [facility] [place] [facility] [address] [id number], [place] [address] Aug, [facility] [place] [facility] [address] [id number], [place] [address] Aug, [facility] [place] [facility] [address] [facility] [id number], [place] [address] Aug, [facility] [place] [facility] [address] [id number] [place] [address] Jul, [facility] [place] [facility] [address] [id number] [place] [address] Jul, [facility] [place] [facility] [address] [id number] [place] [address] Jul, [facility] [place] [facility] [address] [id number] [place] [address] Jul, [facility] [place] [facility] [address] [id number] [place] [address] Jul, [facility] [place] [facility] [address] [id number] [place] [address] Jul, [facility] [place] [facility] [address] [id number] [place] [address] Jul, [facility] [place] [facility] [address] [id number] [place] [address] Jul, [facility] [place] [facility] [address] [id number] [place] [address] Jul, [facility] [place] [facility] [address] [id number] [place] [address] Jun, [facility] [place] [facility] [address] [id number] [place] [address] Jun, [facility] [place] [facility] [address] [id number] [place] [address] Jun, [facility] [place] [facility] [address] [id number] [place] [address] Jun, [facility] [place] [facility] [address] [id number] [place] [address] Jun, [facility] [place] [facility] [address] [id number] [place] [address] Jun, [facility] [place] [facility] [address] [id number] [place] [address] May, [facility] [place] [facility] [address] [id number] [place] [address] 30 May, 2014 [facility] [place] [facility] [address] [id number] [place] [address] May, [facility] [place] [facility] [address] [id number] [place] [address] 14 May, 2014 [facility] [place] [facility] [address] [id number] [place] [address] May, [facility] [place] [facility] [address] [id number] [place] [address] May, [facility] [place] [facility] [address] [id number] [place] [address] May, [facility] [place] [facility] [address] [id number] [place] [address] Apr, [facility] [place] [facility] [address] [id number] [place] [address] Apr, [facility] [place] [facility] [address] [id number] [place] [address] Apr, [facility] [place] [facility] [address] [id number] [place] [address] Apr, [facility] [place] [facility] [address] [id number], [place] [address] Feb, [facility] [place] [facility] [address] [id number], [place] [address] Feb, [facility] [place] [facility] [address] [id number] [place] [address] Feb, [facility] [place] [facility] [address] [id number] [place] [address] Feb, [facility] [place] [facility] [address] [id number] [place] [address] Feb, [facility] [place] [facility] [address] [id number] [place] [address] Feb, 2013 [facility] [place] [facility] [address] [id number] [place] [address] Feb, 2013 [facility] [place] [facility] [address] [id number] [place] [address] Feb, [facility] [place] [facility] [address] [id number] [place] [address] Feb, 2013 [facility] [place] [facility] [address] [id number] [place] [address] Feb, 2013 [facility] [place] [facility] [address] [id number] [place] [address] Feb, [facility] [place] [facility] [address] [id number] [place] [address] Feb, 2013 [facility] [place] [facility] [address] [id number] [place] [address] Feb, 2013 [facility] [place] [facility] [address] [id number] [place] [address] Feb, [facility] [place] [facility] [address] [id number] [place] [address] Feb, [facility] [place] [facility] [address] [id number] [place] [address] Feb, [facility] [place] [facility] [address] [id number] [place] [address] Jan, [facility] [place] [facility] [address] [id number] [place] [address] Jan, [facility] [place] [facility] [address] [id number] [place] [address] Jan, [facility] [place] [facility] [address] [id number] [place] [address] Jan, [facility] [place] [facility] [address] [id number] [place] [address] Jan, [facility] [place] [facility] [address] [id number] [place] [address] Jan, [facility] [place] [facility] [address] [id number] [place] [address] Jan, [facility] [place] [facility] [address] [id number] [place] [address] Jan, [facility] [place] [facility] [address] [id number] [place] [address] Jan, [facility] [place] [facility] [address] [id number] [place] [address] Jan, [facility] [place] [facility] [address] [id number] [place] [address] Jan, [facility] [place] [facility] [address] [id number] [place] [address] Jan, [facility] [place] [facility] [address] [id number] [place] [address] Jan, [facility] [place] [facility] [address] [id number] [place] [address] Jan, [facility] [place] [facility] [address] [id number] [place] [address] Jan, [facility] [place] [facility] [address] [id number] [place] [address] Jan, [facility] [place] [facility] [address] [id number] [place] [address] Jan, [facility] [place] [facility] [address] [id number] [place] [address] Jan, [facility] [place] [facility] [address] [id number] [place] [address] Jan, [facility] [place] [facility] [address] [id number] [place] [address] Jan, [facility] [place] [facility] [address] [id number] [place] [address] Jan, [facility] [address] [address] Jan, [facility] [id number] [address] Jan, [facility] [id number] [address] Jan, [facility] [id number] [address] Jan, [facility] [address], [place] [address] Jan, [facility] [address] [address] Jan, [facility] [address] [address] Jan, [facility] [address], [place] [address] Jan, [facility] [address] [address] Jan, [facility] [address] [address] Jan, [facility] [id number] [address] Jan, [facility] [id number] [address] Jun, [facility] [id number] [address] Jan, IMMUNIZATIONS No Known Immunizations SOCIAL HISTORY Never Assessed REASON FOR VISIT [facility] PLAN OF CARE VITAL SIGNS MEDICATIONS Unknown [...] tunnel Medical History fired from [employer] [employer] [facility]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 Sahh Medical History positive drug screen for meth in hospital ER 01/2014 Medical History 02/11/2014 Ameritox positive for multiple substances not prescribed Surgical History cholecystectomy Surgical History gastric surgery mesh in lower portion of stomach Surgical History kidney surgery D&C Surgical History gkkpglzlacbq-bxcnz-sgnpxbck uterus Surgical History orthopedic surgery leg amputation by Dr. Hodge at [facility] r/t osteoporosis 2006 Hospitalization History Surgery(s)/Childbirth(s) only Hospitalization History Pancreatitis, gastritis, abd pain-[facility] 08/10/16
--- OUTSIDE RECORDS SUMMARY | 2019-02-04 20:55 | XMS REPORT ---
Author Author Migration, Doctor Organization [facility] Address Unknown Phone Unavailable Care Team Providers Care Tool Trouble Shooter Name Role Phone Migration, Doctor Unavailable Unavailable PROBLEMS Type Condition ICD9-CM Code VOX15-NP Code Onset Dates Condition Status SNOMED Code Problem Chronic pancreatitis, unspecified pancreatitis type K86.1 Active 775246586 Problem Chronic obstructive pulmonary disease, unspecified COPD type J44.9 Active 70071120 Problem Phantom limb pain G54.7 Active [id number] ALLERGIES No Information ENCOUNTERS Encounter Location Date Diagnosis [facility] [id number] [place] [address] December, [facility] [id number] [place] [address] Nov, Chronic pancreatitis, unspecified pancreatitis type K86.1 [facility] [id number] [place] [address] Aug, [facility] [id number] [place] [address] Mar, [facility] [id number] [place] [address] Feb, Chronic obstructive pulmonary disease, unspecified COPD type J44.9 [facility] [address] [address] Jan, [facility] [id number] [place] [address] Jan, [facility] [id number] [place] [address] December, [facility] [id number] [place] [address] Nov, [facility] [id number] [place] [address] Nov, Chronic pancreatitis, unspecified pancreatitis type K86.1 ; Chronic obstructive pulmonary disease, unspecified COPD type J44.9 ; Phantom limb pain G54.7 and Allergic state, initial encounter T78.40XA [place] [id number] [place] [address] Sep, [place] [address] [address] Jul, [place] [address] [address] Jul, [place] [address] [address] Jul, [place] [address] [address] Oct, Nausea R11.0 [place] [address] [address] 10 Oct, 2015 Phantom limb pain G54.7 ; Chronic airway obstruction, not elsewhere classified 496 ; Altered mental status 780.97 ; Encounter for long-term (current) use of high-risk medication V58.69 ; Anxiety 300.00 and Allergic rhinitis 477.[address] [place] [id number] [place] [address] Aug, [place] [id number] [place] [address] Jun, [place] [id number] [place] [address] Jun, [place] [address] [address] Apr, Chronic pain following surgery or procedure 338.28 ; COPD (chronic obstructive pulmonary disease) with acute bronchitis 491.22 ; Allergic rhinitis 477.9 ; History of drug abuse 305.93 ; Encounter for long-term (current) use of high-risk medication V58.69 ; Dyspepsia 536.8 ; Anxiety 300.00 and Noncompliance V15.81 [facility] [address] [address] Mar, [facility] [address] [address] Feb, [facility] [id number] [place] [address] Feb, Chronic airway obstruction, not elsewhere classified 496 [facility] [address] [facility] [id number] [address] Feb, [facility] [id number] [place] [address] Jan, [facility] [id number] [address] Jan, [facility] [id number] [place] [address] 14 Nov, 2014 [facility] [address] [address] Nov, [facility] [address] [address] Oct, [facility] [address] [address] Oct, [facility] [address] [address] Oct, [facility] [id number] [address] Oct, [facility] [id number] [address] Oct, [facility] [id number] [address] Oct, [facility] [address] [address] Sep, [facility] [place] [facility] [address] [id number] [place] [address] Sep, [facility] [place] [facility] [address] [id number] [place] [address] Sep, [facility] [place] [facility] [address] [id number] [place] [address] Sep, [facility] [place] [facility] [address] [id number] [place] [address] Sep, [facility] [place] [facility] [address] [id number] [place] [address] Sep, [facility] [place] [facility] [address] [id number] [place] [address] Aug, [facility] [place] [facility] [address] [id number] [place] [address] Aug, [facility] [place] [facility] [address] [id number] [place] [address] Aug, [facility] [place] [facility] [address] [id number] [place] [address] Aug, [facility] [place] [facility] [address] [facility] [id number] [place] [address] Aug, [facility] [place] [facility] [address] [id number], [place] [address] Aug, [facility] [place] [facility] [address] [id number], [place] [address] Aug, [facility] [place] [facility] [address] [id number], [place] [address] Aug, [facility] [place] [facility] [address] [id number], [place] [address] Aug, [facility] [place] [facility] [address] [facility] [id number], [place] [address] Aug, [facility] [place] [facility] [address] [id number] [place] [address] Jul, [facility] [place] [facility] [address] [id number] [place] [address] Jul, [facility] [place] [facility] [address] [id number] [place] [address] Jul, [facility] [place] [facility] [address] [id number] [place] [address] Jul, [facility] [place] [facility] [address] [id number] [place] [address] Jul, [facility] [place] [facility] [address] [id number] [place] [address] Jul, [facility] [place] [facility] [address] [id number] [place] [address] Jul, [facility] [place] [facility] [address] [id number] [place] [address] Jul, [facility] [place] [facility] [address] [id number] [place] [address] Jul, [facility] [place] [facility] [address] [id number] [place] [address] Jun, [facility] [place] [facility] [address] [id number] [place] [address] Jun, [facility] [place] [facility] [address] [id number] [place] [address] Jun, [facility] [place] [facility] [address] [id number] [place] [address] Jun, [facility] [place] [facility] [address] [id number] [place] [address] Jun, [facility] [place] [facility] [address] [id number] [place] [address] Jun, [facility] [place] [facility] [address] [id number] [place] [address] May, [facility] [place] [facility] [address] [id number] [place] [address] 30 May, 2014 [facility] [place] [facility] [address] [id number] [place] [address] May, [facility] [place] [facility] [address] [id number] [place] [address] 14 May, 2014 [facility] [place] [facility] [address] [id number] [place] [address] May, [facility] [place] [facility] [address] [id number] [place] [address] May, [facility] [place] [facility] [address] [id number] [place] [address] May, [facility] [place] [facility] [address] [id number] [place] [address] Apr, [facility] [place] [facility] [address] [id number] [place] [address] Apr, [facility] [place] [facility] [address] [id number] [place] [address] Apr, [facility] [place] [facility] [address] [id number] [place] [address] Apr, [facility] [place] [facility] [address] [id number], [place] [address] Feb, [facility] [place] [facility] [address] [id number], [place] [address] Feb, [facility] [place] [facility] [address] [id number] [place] [address] Feb, [facility] [place] [facility] [address] [id number] [place] [address] Feb, [facility] [place] [facility] [address] [id number] [place] [address] Feb, [facility] [place] [facility] [address] [id number] [place] [address] Feb, 2013 [facility] [place] [facility] [address] [id number] [place] [address] Feb, 2013 [facility] [place] [facility] [address] [id number] [place] [address] Feb, [facility] [place] [facility] [address] [id number] [place] [address] Feb, 2013 [facility] [place] [facility] [address] [id number] [place] [address] Feb, 2013 [facility] [place] [facility] [address] [id number] [place] [address] Feb, [facility] [place] [facility] [address] [id number] [place] [address] Feb, 2013 [facility] [place] [facility] [address] [id number] [place] [address] Feb, 2013 [facility] [place] [facility] [address] [id number] [place] [address] Feb, [facility] [place] [facility] [address] [id number] [place] [address] Feb, [facility] [place] [facility] [address] [id number] [place] [address] Feb, [facility] [place] [facility] [address] [id number] [place] [address] Jan, [facility] [place] [facility] [address] [id number] [place] [address] Jan, [facility] [place] [facility] [address] [id number] [place] [address] Jan, [facility] [place] [facility] [address] [id number] [place] [address] Jan, [facility] [place] [facility] [address] [id number] [place] [address] Jan, [facility] [place] [facility] [address] [id number] [place] [address] Jan, [facility] [place] [facility] [address] [id number] [place] [address] Jan, [facility] [place] [facility] [address] [id number] [place] [address] Jan, [facility] [place] [facility] [address] [id number] [place] [address] Jan, [facility] [place] [facility] [address] [id number] [place] [address] Jan, [facility] [place] [facility] [address] [id number] [place] [address] Jan, [facility] [place] [facility] [address] [id number] [place] [address] Jan, [facility] [place] [facility] [address] [id number] [place] [address] Jan, [facility] [place] [facility] [address] [id number] [place] [address] Jan, [facility] [place] [facility] [address] [id number] [place] [address] Jan, [facility] [place] [facility] [address] [id number] [place] [address] Jan, [facility] [place] [facility] [address] [id number] [place] [address] Jan, [facility] [place] [facility] [address] [id number] [place] [address] Jan, [facility] [place] [facility] [address] [id number] [place] [address] Jan, [facility] [place] [facility] [address] [id number] [place] [address] Jan, [facility] [place] [facility] [id number] [place] [address] Jan, [facility] [address] [address] Jan, [facility] [address], [place] [address] Jan, [facility] [address], [place] [address] Jan, [facility] [address], [place] [address] Jan, [facility] [address], [place] [address] Jan, [facility] [address], [place] [address] Jan, [facility] [address] [address] Jan, [facility] [address], [place] [address] Jan, [facility] [address] [address] Jan, [facility] [address] [address] Jan, [facility] [id number], [place] [address] Jan, [facility] [id number] [address] Jun, [facility] [id number] [address] Jan, IMMUNIZATIONS No Known Immunizations SOCIAL HISTORY Never Assessed REASON FOR VISIT [facility] [place] VITAL SIGNS MEDICATIONS Unknown [...] tunnel Medical History fired from [employer] [employer] [employer]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 Shah Medical History positive drug screen for meth in hospital ER 01/2014 Medical History 02/11/2014 Ameritox positive for multiple substances not prescribed Surgical History cholecystectomy Surgical History gastric surgery mesh in lower portion of stomach Surgical History kidney surgery D&C Surgical History blhslmktkmke-pgzut-lmemlopd uterus Surgical History orthopedic surgery leg amputation by Dr. Hodge at [facility] r/t osteoporosis 2006 Hospitalization History Surgery(s)/Childbirth(s) only Hospitalization History Pancreatitis, gastritis, abd pain-[facility] 08/10/16
--- OUTSIDE RECORDS SUMMARY | 2019-02-04 20:55 | XMS REPORT ---
Author Author Migration, Doctor Organization [facility] Address Unknown Phone Unavailable Care Team Providers Care Night Assistant Name Role Phone Migration, Doctor Unavailable Unavailable PROBLEMS Type Condition ICD9-CM Code ZKZ12-BU Code Onset Dates Condition Status SNOMED Code Problem Chronic pancreatitis, unspecified pancreatitis type K86.1 Active 735677806 Problem Chronic obstructive pulmonary disease, unspecified COPD type J44.9 Active 77065491 Problem Phantom limb pain G54.7 Active [id number] ALLERGIES No Information ENCOUNTERS Encounter Location Date Diagnosis [place] [id number] [place] [address] Aug, [place] [id number] [place] [address] Mar, [facility] [id number] [place] [address] Feb, Chronic obstructive pulmonary disease, unspecified COPD type J44.9 [facility] [id number] [place] [address] Jan, [facility] [id number] [place] [address] Jan, [facility] [id number] [place] [address] December, [facility] [id number] [place] [address] Nov, [facility] [address] [address] Nov, Chronic pancreatitis, unspecified pancreatitis type K86.1 ; Chronic obstructive pulmonary disease, unspecified COPD type J44.9 ; Phantom limb pain G54.7 and Allergic state, initial encounter T78.40XA [facility] [address] [place] [address] 05 Sep, 2017 [facility] [id number] [place] [address] Jul, [facility] [id number] [place] [address] Jul, [facility] [id number] [place] [address] Jul, [facility] [address] [address] 11 Oct, 2015 Nausea R11.0 [place] [address] [address] 10 Oct, 2015 Phantom limb pain G54.7 ; Chronic airway obstruction, not elsewhere classified 496 ; Altered mental status 780.97 ; Encounter for long-term (current) use of high-risk medication V58.69 ; Anxiety 300.00 and Allergic rhinitis 477.9 [place] [id number] [place] [address] Aug, [place] [address] [address] Jun, [place] [id number] [place] [address] Jun, [place] [id number] [place] [address] Apr, Chronic pain following surgery or procedure 338.28 ; COPD (chronic obstructive pulmonary disease) with acute bronchitis 491.22 ; Allergic rhinitis 477.9 ; History of drug abuse 305.93 ; Encounter for long-term (current) use of high-risk medication V58.69 ; Dyspepsia 536.8 ; Anxiety 300.00 and Noncompliance V15.81 [place] [id number] [place] [address] Mar, [facility] [address] [address] Feb, [facility] [address] [facility] [id number] [place] [address] Feb, Chronic airway obstruction, not elsewhere classified 496 [facility] [place] [facility] [address] [id number] [place] [address] 16 Feb, 2015 [facility] [place] [address] [facility] [id number] [place] [address] Jan, [facility] [place] [facility] [address] [facility] [id number] [place] [address] Jan, [facility] [place] [address] [facility] [id number] [place] [address] 14 Nov, 2014 [facility] [place] [facility] [address] [facility] [id number] [place] [address] Nov, [facility] [address] [facility] [id number] [place] [address] Oct, [facility] [address] [facility] [id number] [place] [address] Oct, [facility] [address] [facility] [id number] [place] [address] Oct, [facility] [address] [facility] [id number] [place] [address] Oct, [facility] [place] [facility] [address] [facility] [id number] [place] [address] Oct, [facility] [place] [facility] [address] [facility] [id number] [address] Oct, [facility] [place] [facility] [address] [facility] [id number] [place] [address] Sep, [facility] [place] [facility] [address] [facility] [id number] [place] [address] Sep, [facility] [place] [facility] [address] [facility] [id number] [address] Sep, [facility] [place] [facility] [address] [id number] [place] [address] Sep, [facility] [place] [facility] [address] [id number] [place] [address] Sep, [facility] [place] [facility] [address] [id number] [place] [address] Sep, [facility] [place] [facility] [address] [id number] [place] [address] Aug, [facility] [place] [facility] [address] [id number] [place] [address] Aug, [facility] [place] [facility] [address] [id number] [place] [address] Aug, [facility] [place] [facility] [address] [id number] [place] [address] Aug, [facility] [place] [facility] [address] [id number] [place] [address] Aug, [facility] [place] [facility] [address] [id number] [place] [address] Aug, [facility] [place] [facility] [address] [id number] [place] [address] Aug, [facility] [place] [facility] [address] [id number] [place] [address] Aug, [facility] [place] [facility] [address] [id number] [place] [address] Aug, [facility] [place] [facility] [address] [id number] [place] [address] Aug, [facility] [place] [facility] [address] [id number] [place] [address] Jul, [facility] [place] [facility] [address] [id number] [place] [address] Jul, [facility] [place] [facility] [address] [id number] [place] [address] Jul, [facility] [place] [facility] [address] [id number] [place] [address] Jul, [facility] [place] [facility] [address] [id number] [place] [address] Jul, [facility] [place] [facility] [address] [id number] [place] [address] Jul, [facility] [place] [facility] [address] [id number] [place] [address] Jul, [facility] [place] [facility] [address] [id number] [place] [address] Jul, [facility] [place] [facility] [address] [id number] [place] [address] Jul, [facility] [place] [facility] [address] [id number] [place] [address] Jun, [facility] [place] [facility] [address] [id number] [place] [address] Jun, [facility] [place] [facility] [address] [id number] [place] [address] Jun, [facility] [place] [facility] [address] [facility] [id number] [place] [address] Jun, [facility] [place] [facility] [address] [id number] [place] [address] Jun, [facility] [place] [facility] [address] [id number], [place] [address] Jun, [facility] [place] [facility] [address] [id number] [place] [address] May, [facility] [place] [facility] [address] [id number] [place] [address] May, [facility] [place] [facility] [address] [id number], [place] [address] May, [facility] [place] [facility] [address] [id number] [place] [address] 14 May, 2014 [facility] [place] [facility] [address] [id number] [place] [address] 13 May, 2014 [facility] [place] [facility] [address] [id number] [place] [address] 10 May, 2014 [facility] [place] [facility] [address] [id number] [place] [address] May, [facility] [place] [facility] [address] [id number] [place] [address] Apr, [facility] [place] [facility] [address] [id number] [place] [address] Apr, [facility] [place] [facility] [address] [id number] [place] [address] Apr, [facility] [place] [facility] [address] [id number] [place] [address] Apr, [facility] [place] [facility] [address] [id number] [place] [address] Feb, [facility] [place] [facility] [address] [id number] [place] [address] Feb, [facility] [place] [facility] [address] [id number] [place] [address] Feb, [facility] [place] [facility] [address] [id number] [place] [address] Feb, [facility] [place] [facility] [address] [id number] [place] [address] Feb, [facility] [place] [facility] [address] [id number] [place] [address] Feb, [facility] [place] [facility] [address] [id number] [place] [address] Feb, [facility] [place] [facility] [address] [id number] [place] [address] Feb, [facility] [place] [facility] [address] [id number] [place] [address] Feb, [facility] [place] [facility] [address] [id number] [place] [address] Feb, [facility] [place] [facility] [address] [id number] [place] [address] Feb, [facility] [place] [facility] [address] [id number] [place] [address] Feb, 2013 [facility] [place] [facility] [address] [id number] [place] [address] Feb, [facility] [place] [facility] [address] [id number] [place] [address] Feb, [facility] [place] [facility] [address] [id number] [place] [address] Feb, [facility] [place] [facility] [address] [id number] [place] [address] Feb, [facility] [place] [facility] [address] [id number] [place] [address] Jan, [facility] [place] [facility] [address] [id number] [place] [address] Jan, [facility] [place] [facility] [address] [id number] [place] [address] Jan, [facility] [place] [facility] [address] [id number] [place] [address] Jan, [facility] [place] [facility] [address] [id number] [place] [address] Jan, [facility] [place] [facility] [address] [id number] [place] [address] Jan, [facility] [place] [facility] [address] [id number] [place] [address] Jan, [facility] [place] [facility] [address] [id number] [place] [address] Jan, [facility] [place] [facility] [address] [id number] [place] [address] Jan, [facility] [place] [facility] [address] [id number] [place] [address] Jan, [facility] [place] [facility] [address] [id number] [place] [address] Jan, [facility] [place] [facility] [address] [id number] [place] [address] Jan, [facility] [place] [facility] [address] [id number] [place] [address] Jan, [facility] [place] [facility] [address] [id number] [place] [address] Jan, [facility] [place] [facility] [address] [id number] [place] [address] Jan, [facility] [place] [facility] [address] [id number] [place] [address] Jan, [facility] [place] [facility] [address] [id number] [place] [address] Jan, [facility] [place] [facility] [address] [facility] [id number] [place] [address] Jan, [facility] [place] [facility] [address] [id number] [place] [address] Jan, [facility] [place] [facility] [address] [id number], [place] [address] Jan, [facility] [place] [facility] [address] [id number] [place] [address] Jan, [facility] [place] [facility] [address] [id number] [place] [address] Jan, [facility] [place] [facility] [address] [id number] [place] [address] Jan, [facility] [id number] [address] Jan, [facility] [id number], [place] [address] Jan, [facility] [id number], [place] [address] Jan, [facility] [id number], [place] [address] Jan, [facility] [id number], [place] [address] Jan, [facility] [id number], [place] [address] Jan, [facility] [id number], [place] [address] Jan, [facility] [id number], [place] [address] Jan, [facility] [id number], [place] [address] Jan, [facility] [id number], [place] [address] Jun, [facility] [id number] [address] Jan, IMMUNIZATIONS No Known Immunizations SOCIAL HISTORY Never Assessed REASON FOR VISIT [facility] PLAN OF CARE VITAL SIGNS MEDICATIONS Medication Instructions Dosage Frequency Start Date End Date Duration Status Triamcinolone Acetonide 0.1 % apply a thin layer to the affected area(s) by Topical route 3 times per day dispense 60 gram tube Aug, Active ProAir HFA 90 mcg/actuation inhale 2 puffs by inhalation route every 4-6 hours as needed PRN Oct, Active Symbicort 160-4.5 mcg/actuation 2 puffs by Inhalation route 2 times per day for 30 day(s) Oct, Active Ranitidine HCl 150 mg take 1 tablet (150 mg) by oral route 2 times per day Oct, Active ZyrTEC 10 mg 1 tablet by Oral route 1 time per day Oct, Active HydrOXYzine HCl 50 mg 1 Tablet by Oral route 3 times per day PRN for anxiety--MUST LAST 30 DAYS Oct, Active PredniSONE 20 mg 2 tablet by Oral route 1 time per day for 7 day(s) Oct, Active Flonase 50 mcg/actuation inhale 1 spray (50 mcg) in each nostril by intranasal route 2 times per day Oct, Active Albuterol Sulfate 2.5 mg /3 mL (0.083 %) 1 Each by Inhalation route 3 times per day for cough and wheeze PRN for wheezing or cough Oct, Active Nebulizer 2 times per day PRN COPD Neublizer and tubing for home use Jan, Active Zofran ODT 4 mg take 1 tablets by Oral route every 8 hours PRN Nausea or Vomiting Feb, Active Lidocaine HCl 5 % by Topical route 3 times per day MUST KEEP APPT Oct, Active RESULTS No Results PROCEDURES No [...] bilateral carpal tunnel Medical History fired 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 Shah Medical History positive drug screen for meth in hospital ER 01/2014 Medical History 02/11/2014 Ameritox positive for multiple substances not prescribed Surgical History cholecystectomy Surgical History gastric surgery mesh in lower portion of stomach Surgical History kidney surgery D&C Surgical History sosmxxmjvtqz-kyrzh-zkvrmszu uterus Surgical History orthopedic surgery leg amputation by Dr. Hodge at [facility] r/t osteoporosis 2006 Hospitalization History Surgery(s)/Childbirth(s) only Hospitalization History Pancreatitis, gastritis, abd pain-[facility] 08/10/16
[2019-02-04 21:06] LABS: BILIRUBIN,URINE NEGATIVE (NEGATIVE); CLARITY,URINE CLEAR; COLOR,URINE YELLOW; GLUCOSE, URINE (UA) NEGATIVE (NEGATIVE); KETONES,URINE NEGATIVE (NEGATIVE); LEUKOCYTE ESTERASE ,URINE 1+ (NEGATIVE); NITRITE,URINE NEGATIVE (NEGATIVE); PH,URINE 6 (5-9); PROTEIN,URINE 2+ (NEGATIVE); UROBILINOGEN,URINE NORMAL (NORMAL)
[2019-02-04 21:07] LABS: BASOPHILS # (AUTO) 0.1 10^3/uL (0.0-0.1); BASOPHILS % (AUTO) 1 % (0-10); EOSINOPHILS # (AUTO) 0.3 10^3/uL (0.0-0.3); EOSINOPHILS % (AUTO) 3 % (0-10); HEMATOCRIT 37 % (35-52); HEMOGLOBIN 11.4 G/DL (11.5-16.0); LYMPHOCYTES # (AUTO) 1.9 X 10^3 (1.0-4.0); LYMPHOCYTES % (AUTO) 18 % (12-44); MEAN CORPUSCULAR HEMOGLOBIN 33 PG (25-34); MEAN CORPUSCULAR HGB CONC 31 G/DL (32-36); MEAN CORPUSCULAR VOLUME 107 FL (80-99); MEAN PLATELET VOLUME 10.3 FL (7.4-10.4); MONOCYTES # (AUTO) 1.7 X 10^3 (0.0-1.0); MONOCYTES % (AUTO) 17 % (0-12); NEUTROPHILS # (AUTO) 6.5 X 10^3 (1.8-7.8); NEUTROPHILS % (AUTO) 62 % (42-75); PLATELET COUNT 257 10^3/uL (130-400); RED CELL DISTRIBUTION WIDTH 16.7 % (10.0-14.5); WHITE BLOOD COUNT 10.4 10^3/uL (4.3-11.0)
[2019-02-04 21:13] LABS: INR 0.9 (0.8-1.4); PROTHROMBIN TIME PATIENT 12.4 SEC (12.2-14.7)
[2019-02-04] MEDS ORDERED: DILTIAZEM 180 MG (CARDIZEM CD) CAP PO ONE (21:15)
[2019-02-04 21:16] LABS: BACTERIA,URINE MODERATE /HPF; RBC,URINE RARE /HPF; WBC,URINE TNTC /HPF
--- NOTE | 2019-02-04 21:18 | Diagnostic Imaging Report ---
INDICATION: Shortness of air. TECHNIQUE: Single view chest, 9:06 p.m. CORRELATION STUDY: 10/05/2018. FINDINGS: Heart size is mildly prominent but stable. Vasculature is slightly increased from prior study. Hyperinflated lung field findings reflect COPD. There is, however, increased density in the right hilum and infrahilar region suspect for more focal area of infiltrate, changed from prior study. Pulmonary artery is prominent suggesting pulmonary arterial hypertension. IMPRESSION: Findings of COPD. There is a new or changing infiltrate like density in the right infrahilar region suspect for potential pneumonia. Short term followup two-view chest imaging recommended for reassessment and to document resolution. Dictated by: Dictated on workstation # [id number]
[2019-02-04] MEDS ORDERED: DYCL5POW MC (21:31)
[2019-02-04 21:32] LABS: ALANINE AMINOTRANSFERASE < 6 U/L (0-55); ALBUMIN 3.9 GM/DL (3.2-4.5); ALKALINE PHOSPHATASE 83 U/L (40-136); BILIRUBIN,TOTAL 0.1 MG/DL (0.1-1.0); BUN/CREATININE RATIO 25; CALCIUM 10.8 MG/DL (8.5-10.1); CARBON DIOXIDE 21 MMOL/L (21-32); CREATININE SERUM 1.34 MG/DL (0.60-1.30); GFR ESTIMATED 42; GLUCOSE 83 MG/DL (70-105); TOTAL PROTEIN 7.1 GM/DL (6.4-8.2)
[2019-02-04] MEDS ORDERED: NS IV 1000 ML 1,000 ML IV ONE (21:42)
[2019-02-04 21:44] LABS: CHLORIDE 113 MMOL/L (98-107); POTASSIUM 4.8 MMOL/L (3.6-5.0); SODIUM 148 MMOL/L (135-145)
[2019-02-04] MEDS ORDERED: MEROPENEM 1,000 MG in WATER (STERILE) FOR INJECTION 20 ML IV ONE (21:45)
--- NOTE | 2019-02-04 22:11 | ED Respiratory ---
General Chief Complaint: Respiratory Problems Stated Complaint: SOB Nursing Triage Note: Patient brought to ER T1 via [facility] with complaint of shortness of breath and chest pain that gets worse with breathing x 4 days. Patient states she has a history of COPD and feels like she has pneumonia. Patient was given Douneb nebulizer treatment during EMS transport due to bilateral wheezing. Patient states she has not been doing a nebulizer treatments at home due to being out of the medication. She is on home oxygen at 2 LPM via Nasal cannula. Source: patient, EMS, old records Exam Limitations: no limitations History of Present Illness Date Seen by Provider: Feb 05, 2019 Time Seen by Provider: 20:49 Initial Comments This 48-year-old woman presents to the emergency room via EMS with complaints of shortness of breath, cough and chest discomfort for 3 or 4 days. She has felt lethargic. She feels like she has pneumonia. EMS administered a DuoNeb treatment with improvement. Patient is out of nebulizer medication at home and has not used nebs in a while. She presently has oxygen saturations in the mid to upper 90s on 2 L by nasal cannula. She is afebrile at present. Allergies and Home Medications Allergies Coded Allergies: ofloxacin (Verified Allergy, Mild, 02/04/19) Penicillins (Verified Allergy, Unknown, Pt has received Ceftriaxone & Cefepime in the past w/o issue, 02/04/19) amoxicillin (Verified Allergy, Unknown, 02/04/19) clavulanic acid (Verified Allergy, Unknown, 02/04/19) promethazine (Verified Allergy, Unknown, 02/04/19) propoxyphene (Verified Allergy, Unknown, 02/04/19) ketorolac (Verified Adverse Reaction, Unknown, 11/08/17) tramadol (Verified Adverse Reaction, Unknown, 11/08/17) Home Medications Albuterol Sulfate 1 Puff Puff, 2 PUFF IH Q4H PRN for SHORTNESS OF BREATH, (Reported) 1 PUFF = 90 MCG Budesonide/Formoterol Fumarate 10.2 Gm Hfa.aer.ad, 2 PUFF IH BID, (Reported) Cetirizine HCl 10 Mg Tablet, 10 MG PO DAILY, (Reported) Fluticasone Propionate 16 Gm Leisenring.susp, 2 SPRAYS NS DAILY, (Reported) Gabapentin 300 Mg Capsule, 900 MG PO QID, (Reported) TAKES 3 (300MG) CAPUSLES Lipase/Protease/Amylase 1 Each Capsule.dr, 2 CAP PO TIDWM, (Reported) Ranitidine HCl 150 Mg Tablet, 150 MG PO BID, (Reported) Patient Home Medication List Home Medication List Reviewed: Yes Review of Systems Review of Systems Constitutional: no symptoms reported EENTM: no symptoms reported Respiratory: see HPI Cardiovascular: see HPI Gastrointestinal: no symptoms reported Genitourinary: no symptoms reported : No Musculoskeletal: no symptoms reported Skin: no symptoms reported Psychiatric/Neurological: No Symptoms Reported Hematologic/Lymphatic: No Symptoms Reported Past Yxczmqe-Sydjwd-Koilgc Hx Past Med/Social Hx: Reviewed and Corrections made Patient Social History Alcohol Use: Past History Number of Drinks Today: AA Alcohol Beverage of Choice: Beer Recreational Drug Use: Yes (ETOH- NOT FOR LAST SIX MONTHS) Drug of Choice: RX MEDICATIONS, JUAN CARLOS OXYCODONE/OPIATES & BENZODIAZEPINES, WELL ILLICIT Smoking Status: Current Everyday Smoker Type Used: Cigars, Cigarettes 2nd Hand Smoke Exposure: No Recent Foreign Travel: No Contact w/Someone Who Travel: No Recent Infectious Disease Expo: No Recent Hopitalizations: Yes Immunizations Up To Date Tetanus Booster (TDap): Unknown PED Vaccines UTD: No Date of Pneumonia Vaccine: Jul 26, 2009 Date of Influenza Vaccine: Sep 26, 2013 Seasonal Allergies Seasonal Allergies: No Past Medical History Surgeries: Yes (left leg amputation) Abdominal, Amputation, Eye Surgery, Gallbladder, Hysterectomy, Oophorectomy, Orthopedic Respiratory: Yes (ASPIRATION AND ARDS, wears O2 at home at 2 LPM) Asthma, Pneumonia, Chronic Bronchitis, COPD, Emphysema Currently Using CPAP: No Currently Using BIPAP: No Cardiac: Yes Hypertension Neurological: Yes (CHRONIC PHANTOM LEG PAIN, TREMORS) Headaches /Migraines, Stroke 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 Disorders: Yes 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 PULMONOLOGIST History: Hysterectomy Sexually Transmitted Disease: No HIV/AIDS: No Genitourinary: Yes (CHRONIC RENAL INSUFFICIENCY) UTI-Chronic Gastrointestinal: Yes (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) Gastroesophageal Reflux, Pancreatitis, Hiatal Hernia, Ulcer, Gall Bladder Disease Musculoskeletal: Yes Amputee, Osteoporosis, Fractures Endocrine: Yes (history of chronic pancreatitis) HEENT: Yes (EDENTULOUS; BILATERAL CATARACT SURGERY) Cataract Loss of Vision: Denies Hearing Impairment: Denies Cancer: No Psychosocial: Yes Anxiety, Suicide Attempts, Depression Integumentary: No Blood Disorders: No Adverse Reaction/Blood Tranf: No Family Medical History Alzheimer's disease 19 FATHER 19 MOTHER Asthma 19 FATHER Completed stroke 19 FATHER Deafness or hearing loss 19 FATHER Dementia 19 FATHER Diabetes mellitus 19 FATHER 19 MOTHER Headache disorder 19 FATHER Hypertension 19 FATHER 19 MOTHER Myocardial infarction 19 FATHER 19 MOTHER Respiratory disorder 19 FATHER No Family History of: Kidney disease No Pertinent Family Hx, Heart Disease, COPD, Diabetes, Hypertension, Stroke Physical Exam Vital Signs - First Documented Capillary Refill : Less Than 3 Seconds Height: 5'1.00" Weight: 65lbs. 4.0oz. 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 tested, no motor/sensory deficits, alert, normal mood/affect, oriented x 3 Skin: normal color, warm/dry Focused Exam Lactate Level 02/04/19 20:55: Lactic Acid Level 0.68 Lactic Acid Level Laboratory Tests Test 02/04/19 20:55 Lactic Acid Level 0.68 MMOL/L (0.50-2.00) Progress/Results/Core Measures Suspected Sepsis Recent Fever Within 48 Hours: No Infection Criteria Present: None New/Unexplained Altered Menta: No Sepsis Screen: No Definite Risk SIRS Temperature:97.7 Pulse: 98 Respiratory Rate: 22 Laboratory Tests 02/04/19 20:55: White Blood Count 10.4 Blood Pressure 118 /87 Mean: 97 02/04/19 20:55: Lactic Acid Level 0.68 Laboratory Tests 02/04/19 20:55: Creatinine 1.34H, INR Comment 0.9, Platelet Count 257, Total Bilirubin 0.1 Results/Orders Lab Results Laboratory Tests Test 02/04/19 20:55 02/04/19 20:58 Range/Units White Blood Count 10.4 4.3-11.0 10^3/uL Red Blood Count 3.45 L 4.35-5.85 10^6/uL Hemoglobin 11.4 L 11.5-16.0 G/DL Hematocrit 37 35-52 % Mean Corpuscular Volume 107 H 80-99 FL Mean Corpuscular Hemoglobin 33 25-34 PG Mean Corpuscular Hemoglobin Concent 31 L 32-36 G/DL Red Cell Distribution Width 16.7 H 10.0-14.5 % Platelet Count 257 130-400 10^3/uL Mean Platelet Volume 10.3 7.4-10.4 FL Neutrophils (%) (Auto) 62 42-75 % Lymphocytes (%) (Auto) 18 12-44 % Monocytes (%) (Auto) 17 H 0-12 % Eosinophils (%) (Auto) 3 0-10 % Basophils (%) (Auto) 1 0-10 % Neutrophils # (Auto) 6.5 1.8-7.8 X 10^3 Lymphocytes # (Auto) 1.9 1.0-4.0 X 10^3 Monocytes # (Auto) 1.7 H 0.0-1.0 X 10^3 Eosinophils # (Auto) 0.3 0.0-0.3 10^3/uL Basophils # (Auto) 0.1 0.0-0.1 10^3/uL Prothrombin Time 12.4 12.2-14.7 SEC INR Comment 0.9 0.8-1.4 Activated Partial Thromboplast Time 42 H 24-35 SEC Sodium Level 148 H 135-145 MMOL/L Potassium Level 4.8 3.6-5.0 MMOL/L Chloride Level 113 H 98-107 MMOL/L Carbon Dioxide Level 21 21-32 MMOL/L Anion Gap 14 5-14 MMOL/L Blood Urea Nitrogen 33 H 7-18 MG/DL Creatinine 1.34 H 0.60-1.30 MG/DL Estimat Glomerular Filtration Rate 42 BUN/Creatinine Ratio 25 Glucose Level 83 70-105 MG/DL Lactic Acid Level 0.68 0.50-2.00 MMOL/L Calcium Level 10.8 H 8.5-10.1 MG/DL Corrected Calcium 10.9 H 8.5-10.1 MG/DL Total Bilirubin 0.1 0.1-1.0 MG/DL Aspartate Amino Transf (AST/SGOT) 6 5-34 U/L Alanine Aminotransferase (ALT/SGPT) < 6 0-55 U/L Alkaline Phosphatase 83 40-136 U/L Troponin I < 0.028 <0.028 NG/ML C-Reactive Protein High Sensitivity 9.58 H 0.00-0.50 MG/DL B-Type Natriuretic Peptide 33.9 <100.0 PG/ML Total Protein 7.1 6.4-8.2 GM/DL Albumin 3.9 3.2-4.5 GM/DL Urine Color YELLOW Urine Clarity CLEAR Urine pH 6 5-9 Urine Specific Dalton 1.015 L 1.016-1.022 Urine Protein 2+ H NEGATIVE Urine Glucose (UA) NEGATIVE NEGATIVE Urine Ketones NEGATIVE NEGATIVE Urine Nitrite NEGATIVE NEGATIVE Urine Bilirubin NEGATIVE NEGATIVE Urine Urobilinogen NORMAL NORMAL MG/DL Urine Leukocyte Esterase 1+ H NEGATIVE Urine RBC (Auto) 1+ H NEGATIVE Urine RBC RARE /HPF Urine WBC TNTC H /HPF Urine Squamous Epithelial Cells 5-10 /HPF Urine Crystals NONE /LPF Urine Bacteria MODERATE H /HPF Urine Casts NONE /LPF Urine Mucus SMALL H /LPF Urine Culture Indicated YES My Orders Orders - FER MONTEIRO MD Cbc With Automated Diff (02/04/19 20:56) Comprehensive Metabolic Panel (02/04/19 20:56) Blood Culture (02/04/19 20:56) Urinalysis (02/04/19 20:56) Urine Culture (02/04/19 20:56) Protime With Inr (02/04/19 20:56) Partial Thromboplastin Time (02/04/19 20:56) Chest 1 View, Ap/Pa Only (02/04/19 20:56) Ed Iv/Invasive Line Start (02/04/19 20:56) Ed Iv/Invasive Line Start (02/04/19 20:56) Troponin I (02/04/19 20:56) Vital Signs Adult Sepsis Patie Q15M (02/04/19 20:56) O2 (02/04/19 20:56) Remove Rings In Anticipation O (02/04/19 20:56) Lactic Acid Analyzer (02/04/19 20:56) BNP (02/04/19 20:56) Ekg Tracing (02/04/19 20:56) Hs C Reactive Protein (02/04/19 20:56) Diltiazem Cd 24 Hr Capsule (Cardizem Cd (02/04/19 21:15) Ed Iv/Invasive Line Start (02/04/19 21:42) Ns Iv 1000 Ml (Sodium Chloride 0.9%) (02/04/19 21:42) Meropenem (Merrem 1000 Mg) (02/04/19 21:45) Medications Given in ED Current Medications Medications Dose Ordered Sig/Ely Route Start Time Stop Time Status Last Admin Dose Admin Meropenem 1000 mg/ Sterile Water 20 ml @ 240 mls/hr ONCE ONCE IV 02/04/19 21:45 02/04/19 21:49 DC 02/04/19 22:09 240 MLS/HR Sodium Chloride 1,000 ml @ 0 mls/hr Q0M ONCE IV 02/04/19 21:42 02/04/19 21:44 DC 02/04/19 21:54 1,000 MLS/HR Vital Signs/I&O 02/04/19 02/04/19 20:48 20:48 Temp 97.7 Pulse 98 Resp 22 B/P (MAP) 118/87 (97) Pulse Ox 97 97 O2 Delivery Nasal Cannula Nasal Cannula O2 Flow Rate 2.00 2.00 Capillary Refill : Less Than 3 Seconds Blood Pressure Mean: 97 Progress Note : Time: 22:11 Progress Note Patient was seen and examined upon arrival. Her breathing had improved and was fairly relaxed after DuoNeb by EMS. She was found to have bilateral infiltrates on chest x-ray and pneumonia was suspected. She also had significant findings on her urinalysis suggestive of urinary tract infection. She has had antibiotic resistant Escherichia coli in the past. Given her allergies and presence of micrograms resistant UTI in the past and present suspicion of UTI now, I have selected meropenem as the initial treatment of choice. We will also add azithromycin to cover atypical pneumonia. Cardiac workup was unremarkable. Patient was agreeable to admission. Meropenem was started in the ER after blood cultures were drawn. ECG Initial ECG Impression Date: Feb 04, 2019 Initial ECG Impression Time: 21:03 Initial ECG Rate: 92 Initial ECG Rhythm: Normal Sinus Initial ECG Intervals: Normal Comment Normal sinus rhythm with no ST elevation or depression. No abnormal intervals or axis deviation. Diagnostic Imaging Diagonstic Imaging: Xray Plain Films/CT/US/NM/MRI: chest Comments Chest x-ray viewed by me and compared with prior. Report reviewed. See report below: NAME: [facility] REC#: [id number] PT STATUS: REG ER : 1970 PHYSICIAN: FER MONTEIRO MD ADMIT DATE: 02/04/19/ER Draft Date of Exam:02/04/19 CHEST 1 VIEW, AP/PA ONLY INDICATION: Shortness of air. TECHNIQUE: Single view chest, 9:06 p.m. CORRELATION STUDY: 10/05/2018. FINDINGS: Heart size is mildly prominent but stable. Vasculature is slightly increased from prior study. Hyperinflated lung field findings reflect COPD. There is, however, increased density in the right hilum and infrahilar region suspect for more focal area of infiltrate, changed from prior study. Pulmonary artery is prominent suggesting pulmonary arterial hypertension. IMPRESSION: Findings of COPD. There is a new or changing infiltrate like density in the right infrahilar region suspect for potential pneumonia. Short term followup two-view chest imaging recommended for reassessment and to document resolution. Dictated on workstation # [id number] Dict: 02/04/192108 Trans: 02/04/192117 [facility] [id number] Interpreted by: DORIS MESSER DO Departure Communication (Admissions) Time/Spoke to Admitting Phy: 22:00 Dr. Ybarra Impression Primary Impression: PNEUMONIA, ORGANISM NOS Additional Impressions: COPD with exacerbation Acute urinary tract infection Renal insufficiency Disposition: ADMITTED INPATIENT Condition: Improved Admissions Decision to Admit Reason: Admit from ER (General) Decision to Admit/Date: Feb 04, 2019 Time/Decision to Admit Time: 21:40 Departure-Patient Inst. Referrals: [facility] [place] ([place]/Family) Primary Care Physician FER MONTEIRO MD Feb 04, 2019 22:11
--- NOTE | 2019-02-04 22:29 | NUR ---
[facility] notified of admission. She will call back with a room.
[2019-02-04] MEDS ORDERED: HYDROcodone/APAP 5 MG/325 MG (LORTAB) TAB PO ONE (22:30)
--- NOTE | 2019-02-04 23:05 | NUR ---
Recieved pt report from BRICE Bennett to assume care of pt @ this time.
[2019-02-04] MEDS ORDERED: methylPREDNISolone 40 MG/ML (Solu-MEDROL) VIAL IV ONE (23:15)
--- OUTSIDE RECORDS SUMMARY | 2019-02-04 23:25 | XMS REPORT | Clinical Summary ---
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 For more i nformation, please contact: [facility] [address] [place] [address] Date Inactivated Comments Code Status Date Activated 12/10/2014 11:44 PM Full Code 12/10/2014 6:01 PM Provider has discussed Code Status No, discussion not w/Patient or Family? necessary based on Dx
[2019-02-04 23:40] VITALS: BP 129/99
[2019-02-05] MEDS ORDERED: AZITHROMYCIN 500 MG/NS 250 ML IVPB IV ONE ×2 (01:00)
[2019-02-05] MEDS ORDERED: RT-ALBUTEROL SULF 2.5 MG/3 ML PRE-MIX VIAL IH PRN (01:00)
[2019-02-05] MEDS: RT-ALBUTEROL/IPRATROPIUM 3 ML (DUONEB) VIAL IH SCH ×3 (03:52→10:32)
[2019-02-05 04:00] VITALS: BP 118/70
[2019-02-05] MEDS ORDERED: NICOTINE 21 MG (NICODERM) PATCH TD SCH ×2 (04:35→09:00)
[2019-02-05] MEDS: methylPREDNISolone 40 MG/ML (Solu-MEDROL) VIAL IV SCH ×2 (05:04→13:16)
[2019-02-05 05:58] LABS: BASOPHILS % (AUTO) 0 % (0-10); EOSINOPHILS % (AUTO) 0 % (0-10); HEMATOCRIT 40 % (35-52); HEMOGLOBIN 11.5 G/DL (11.5-16.0); LYMPHOCYTES # (AUTO) 0.5 X 10^3 (1.0-4.0); LYMPHOCYTES % (AUTO) 5 % (12-44); MEAN CORPUSCULAR HEMOGLOBIN 31 PG (25-34); MEAN CORPUSCULAR HGB CONC 29 G/DL (32-36); MEAN CORPUSCULAR VOLUME 109 FL (80-99); MEAN PLATELET VOLUME 10.9 FL (7.4-10.4); MONOCYTES # (AUTO) 0.2 X 10^3 (0.0-1.0); MONOCYTES % (AUTO) 2 % (0-12); NEUTROPHILS # (AUTO) 9.1 X 10^3 (1.8-7.8); NEUTROPHILS % (AUTO) 93 % (42-75); PLATELET COUNT 246 10^3/uL (130-400); RED CELL DISTRIBUTION WIDTH 16.7 % (10.0-14.5); WHITE BLOOD COUNT 9.8 10^3/uL (4.3-11.0)
[2019-02-05 06:16] LABS: BAND NEUTROPHILS 1 %; LYMPHOCYTES % (MANUAL) 5 %; MONOCYTES % (MANUAL) 0 %; NEUTROPHILS % (MANUAL) 92 %
[2019-02-05 06:17] LABS: ANISOCYTOSIS SLIGHT; BASOPHILS % (MANUAL) 0 %; EOSINOPHILS % (MANUAL) 1 %; HYPOCHROMASIA SLIGHT; METAMYELOCYTES % 1 %; POLYCHROMASIA SLIGHT
[2019-02-05 06:36] LABS: CALCIUM 10.1 MG/DL (8.5-10.1); CREATININE SERUM 1.14 MG/DL (0.60-1.30)
--- NOTE | 2019-02-05 06:51 | Diagnostic Imaging Report ---
INDICATION: Lower respiratory infection. Portable chest 6:19 AM FINDINGS: There is some air trapping in the lungs. There are no infiltrates, effusions or pneumothoraces. IMPRESSION: Air trapping. No acute abnormality is seen. No change from previous day. Dictated by: Dictated on workstation # [id number]
--- NOTE | 2019-02-05 07:10 | NUR ---
PATIENT STATES SHE WEARS 2 L AT NOC AT HOME; PATIENT IS ON 3 L NC AND SATTING 90% WHEN RT ENTERED HER ROOM. STATES SHE HAS NOT BEEN COUGHING UP ANYTHING SINCE SHE HAS BEEN HERE BUT HAD BEEN COUGHING UP GILLESPI[place] SPUTUM AT HOME AND IT WAS THICK. Addendum: 02/05/19 at 0714 by BRAEDEN LIU RT RN SAID THAT PATIENT TOLD HER THAT SHE WEARS 2 L CONTINUOUS!
[2019-02-05 08:00] VITALS: BP 155/95
[2019-02-05] MEDS ORDERED: DICY10CA12 PO (08:45)
[2019-02-05] MEDS ORDERED: LIPA1CAP PO (08:45)
[2019-02-05] MEDS ORDERED: [UNRECOGNIZED DRUG - CODE] PO (08:46)
--- NOTE | 2019-02-05 08:54 | NUR ---
SPOKE WITH THE PATIENT ABOUT HER MEDICATIONS. WE WENT OVER THE EXT MED HX AND SHE VERIFIED HOW SHE TAKES HER MEDICINE. HER DICYCLOMINE WAS FILLED FOR 2 CAPS QID HOWEVER SHE STATES SHE ONLY TAKES 2 TID. HER PANCREAZE WAS FILLED 1 CAP 2-3 TIMES DAILY BEFORE MEALS, SHE STATES SHE IS SUPPOSED TO TAKE 2 CAPSULES QID OR ANYTIME SHE EATS HOWEVER THAT IS NOT HOW IT IS PRESCRIBED. SHE ADMITS SHE HAS TROUBLE GETTING HER MEDICINE REFILLED OFTEN SHE NEEDS IT. I ENTERED IT ITS PRESCRIBED CURRENTLY AT [facility].
[2019-02-05] MEDS ORDERED: MEROPENEM 1,000 MG/SWFI 20 ML IV PUSH IV SCH ×2 (09:00)
[2019-02-05] MEDS ORDERED: AZITHROMYCIN 250 MG TAB (ZITHROMAX) PO SCH (09:00)
--- NOTE | 2019-02-05 10:16 | Short Stay Summary ---
History of Present Illness History of Present Illness Reason for visit/HPI 48 yo F that presented with worsening shortness of breath. States that she ran out of her nebulizer medication. She states that she has been using her inhalers every day. She admits that she has not been using her oxygen at home all the time. She is suppose to be on 2L continuous. Patient continues to smoke. Denies any fever or chills. Date of Admission Feb 04, 2019 at 22:09 Date of Discharge 02/05/2019 Time Seen by Provider: 08:45 Attending Physician Talita Ybarra MD Admitting Physician [place] Consult Allergies and Home Medications Allergies Coded Allergies: ofloxacin (Verified Allergy, Mild, 02/04/19) Penicillins (Verified Allergy, Unknown, Pt has received Ceftriaxone & Cefepime in the past w/o issue, 02/04/19) amoxicillin (Verified Allergy, Unknown, 02/04/19) clavulanic acid (Verified Allergy, Unknown, 02/04/19) promethazine (Verified Allergy, Unknown, 02/04/19) propoxyphene (Verified Allergy, Unknown, 02/04/19) ketorolac (Verified Adverse Reaction, Unknown, 11/08/17) tramadol (Verified Adverse Reaction, Unknown, 11/08/17) Home Medications Albuterol Sulfate 1 Puff Puff, 2 PUFF IH Q4H PRN for SHORTNESS OF BREATH, (Repo rted) Azithromycin 250 Mg Tablet, 250 MG PO DAILY Prescribed by: TALITA YBARRA on 02/05/19 1021 Budesonide/Formoterol Fumarate 10.2 Gm Hfa.aer.ad, 2 PUFF IH BID, (Reported) Cetirizine HCl 10 Mg Tablet, 10 MG PO DAILY, (Reported) Dicyclomine HCl 10 Mg Capsule, 20 MG PO TID, (Reported) TAKES 2 (10MG) CAPSULES Fluticasone Propionate 16 Gm [place].susp, 2 SPRAYS NS DAILY, (Reported) Folic Acid/Multivit-Minerals 200 Mcg Tab.chew, 1 TAB.CHEW PO DAILY, (Reported) Gabapentin 300 Mg Capsule, 900 MG PO QID, (Reported) TAKES 3 (300MG) CAPUSLES Ipratropium/Albuterol Sulfate 3 Ml Ampul.neb, 3 ML IH Q6H PRN for SHORTNESS OF BREATH Prescribed by: TALITA YBARRA on 02/05/19 1021 Lipase/Protease/Amylase 1 Each Capsule.dr, 1 CAP PO TIDAC, (Reported) Nitrofurantoin Monohyd/M-Cryst 100 Mg Capsule, 1 TAB PO BID Prescribed by: TALITA YBARRA on 02/05/19 1021 Ranitidine HCl 150 Mg Tablet, 150 MG PO BID, (Reported) Patient Home Medication List Home Medication List Reviewed: Yes Past Eqpitmu-Fganlb-Dteplr Hx Patient Social History Alcohol Use: Past History Number of Drinks Today: AA Alcohol Beverage of Choice: Beer Recreational Drug Use: Yes (ETOH- NOT FOR LAST SIX MONTHS) Drug of Choice: RX MEDICATIONS, JUAN CARLOS OXYCODONE/OPIATES & BENZODIAZEPINES, WELL ILLICIT Smoking Status: Current Everyday Smoker Type Used: Cigars, Cigarettes 2nd Hand Smoke Exposure: No Recent Foreign Travel: No Contact w/other who traveled: No Recent Hopitalizations: Yes Recent Infectious Disease Expo: No Immunizations Up To Date Tetanus Booster (TDap): Unknown Pediatric: No Date of Pneumonia Vaccine: Jul 26, 2009 Date of Influenza Vaccine: Sep 26, 2013 Seasonal Allergies Seasonal Allergies: No Surgeries Yes (left leg amputation) Abdominal, Amputation, Eye Surgery, Gallbladder, Hysterectomy, Oophorectomy, Orthopedic Respiratory Yes (ASPIRATION AND ARDS, wears O2 at home at 2 LPM) COPD, Emphysema, Pneumonia Currently Using CPAP: No Currently Using BIPAP: No Cardiovascular Yes Hypertension Neurological Yes (CHRONIC PHANTOM LEG PAIN, TREMORS) Headaches /Migraines, Stroke 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 System Hx 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 Disorders: Yes Sexually Transmitted Disease: No HIV/AIDS: No 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 DIRECTOR OF ASSESSMENT History: Hysterectomy Genitourinary Yes (CHRONIC RENAL INSUFFICIENCY) UTI-Chronic Gastrointestinal Yes (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) Gastroesophageal Reflux, Pancreatitis, Hiatal Hernia, Ulcer, Gall Bladder Disease Musculoskeletal Yes Amputee, Osteoporosis, Fractures Endocrine History of Endocrine Disorders: Yes (history of chronic pancreatitis) HEENT History of HEENT Disorders: Yes (EDENTULOUS; BILATERAL CATARACT SURGERY) HEENT Disorders: Cataract Loss of Vision: Denies Hearing Impairment: Denies Cancer No Psychosocial History of Psychiatric Problem: Yes Behavioral Health Disorders: Anxiety, Suicide Attempts, Depression Integumentary History of Skin or Integumenta: No Blood Transfusions History of Blood Disorders: No Adverse Reaction to a Blood Tr: No Family Medical History Significant Family History: No Pertinent Family Hx, Heart Disease, COPD, Diabetes, Hypertension, Stroke Family Hx: Alzheimer's disease 19 FATHER 19 MOTHER Asthma 19 FATHER Completed stroke 19 FATHER Deafness or hearing loss 19 FATHER Dementia 19 FATHER Diabetes mellitus 19 FATHER 19 MOTHER Headache disorder 19 FATHER Hypertension 19 FATHER 19 MOTHER Myocardial infarction 19 FATHER 19 MOTHER Respiratory disorder 19 FATHER No Family History of: Kidney disease Review of Systems Constitutional: no symptoms reported; No chills, No fever EENTM: no symptoms reported; No mouth pain, No nose congestion, No throat pain Respiratory: cough, dyspnea on exertion; No orthopnea; short of breath Cardiovascular: no symptoms reported; No chest pain, No edema, No palpitations Gastrointestinal: no symptoms reported; No abdominal pain, No constipation, No diarrhea, No nausea, No vomiting Genitourinary: No dysuria; frequency; No hematuria : No Musculoskeletal: joint pain (Pain in stump) Skin: no symptoms reported Psychiatric/Neurological: Anxiety Physical Exam Vital Signs Vital Signs - First Documented 02/05/19 03:36 FiO2 35 Capillary Refill : Less Than 3 Seconds Height, Weight, BMI Height: 5'1.00" Weight: 72lbs. 0.0oz. 32.667107kh; 13.6 BMI Method:Stated General Appearance: No Apparent Distress, WD/WN, Thin HEENT: PERRL/EOMI Neck: Full Range of Motion, Normal Inspection, Non Tender, Supple Respiratory: No Accessory Muscle Use, No Respiratory Distress, Decreased Breath Sounds, Wheezing Cardiovascular: Regular Rate, Rhythm, No Edema, No Murmur Gastrointestinal: Normal Bowel Sounds, No Organomegaly, Non Tender, Soft Back: No CVA Tenderness, No Vertebral Tenderness Extremity: Other (L AKA, decrease RLE pulses to palpation) Neurologic/Psychiatric: Alert, Oriented x3, No Motor/Sensory Deficits, Normal Mood/Affect, nurse reviewer II-XII Norm as Tested Skin: Normal Color, Warm/Dry, Other (cig staining on fingers) Lymphatic: No Adenopathy Clinical Quality Measures DVT/VTE Risk/Contraindication: Risk Factor Score Per Nursin RFS Level Per Nursing on Admit: 4+=Very High Short Stay Diagnosis Discharge Diagnosis-Short Stay Admission Diagnosis: COPD Exacerbation UTI Oxygen dependence Severe PVD Chronic Pain Final Discharge Diagnosis: See Above Conclusion Labs Laboratory Tests 02/04/19 20:55: White Blood Count 10.4, Red Blood Count 3.45L, Hemoglobin 11.4L, Hematocrit 37, Mean Corpuscular Volume 107H, Mean Corpuscular Hemoglobin 33, Mean Corpuscular Hemoglobin Concent 31L, Red Cell Distribution Width 16.7H, Platelet Count 257, Mean Platelet Volume 10.3, Neutrophils (%) (Auto) 62, Lymphocytes (%) (Auto) 18, Monocytes (%) (Auto) 17H, Eosinophils (%) (Auto) 3, Basophils (%) (Auto) 1, Neutrophils # (Auto) 6.5, Lymphocytes # (Auto) 1.9, Monocytes # (Auto) 1.7H, Eosinophils # (Auto) 0.3, Basophils # (Auto) 0.1, Prothrombin Time 12.4, INR Comment 0.9, Activated Partial Thromboplast Time 42H, Sodium Level 148H, Potassium Level 4.8, Chloride Level 113H, Carbon Dioxide Level 21, Anion Gap 14, Blood Urea Nitrogen 33H, Creatinine 1.34H, Estimat Glomerular Filtration Rate 42, BUN/Creatinine Ratio 25, Glucose Level 83, Lactic Acid Level 0.68, Calcium Level 10.8H, Corrected Calcium 10.9H, Total Bilirubin 0.1, Aspartate Amino Transf (AST/SGOT) 6, Alanine Aminotransferase (ALT/SGPT) < 6, Alkaline Phosphatase 83, Troponin I < 0.028, C-Reactive Protein High Sensitivity 9.58H, B-Type Natriuretic Peptide 33.9, Total Protein 7.1, Albumin 3.9 02/04/19 20:58: Urine Color YELLOW, Urine Clarity CLEAR, Urine pH 6, Urine Specific [place] 1.015L, Urine Protein 2+H, Urine Glucose (UA) NEGATIVE, Urine Ketones NEGATIVE, Urine Nitrite NEGATIVE, Urine Bilirubin NEGATIVE, Urine Urobilinogen NORMAL, Urine Leukocyte Esterase 1+H, Urine RBC (Auto) 1+H, Urine RBC RARE, Urine WBC TNTCH, Urine Squamous Epithelial Cells 5-10, Urine Crystals NONE, Urine Bacteria MODERATEH, Urine Casts NONE, Urine Mucus SMALLH, Urine Culture Indicated YES 02/05/19 05:15: White Blood Count 9.8, Red Blood Count 3.66L, Hemoglobin 11.5, Hematocrit 40, Mean Corpuscular Volume 109H, Mean Corpuscular Hemoglobin 31, Mean Corpuscular Hemoglobin Concent 29L, Red Cell Distribution Width 16.7H, Platelet Count 246, Mean Platelet Volume 10.9H, Neutrophils (%) (Auto) 93H, Lymphocytes (%) (Auto) 5L, Monocytes (%) (Auto) 2, Eosinophils (%) (Auto) 0, Basophils (%) (Auto) 0, Neutrophils # (Auto) 9.1H, Lymphocytes # (Auto) 0.5L, Monocytes # (Auto) 0.2, Eosinophils # (Auto) 0.0, Basophils # (Auto) 0.0, Sodium Level 141, Potassium Level 5.0, Chloride Level 115H, Carbon Dioxide Level 18L, Anion Gap 8, Blood Urea Nitrogen 27H, Creatinine 1.14, Estimat Glomerular Filtration Rate 50, BUN/Creatinine Ratio 24, Glucose Level 132H, Calcium Level 10.1, Neutrophils % (Manual) 92, Lymphocytes % (Manual) 5, Monocytes % (Manual) 0, Eosinophils % (Manual) 1, Basophils % (Manual) 0, Metamyelocytes % 1, Band Neutrophils 1, Polychromasia SLIGHT, Hypochromasia SLIGHT, Anisocytosis SLIGHT Conclusion/Plan 48 yo F that presented with shortness of breath and found to have UTI Plan COPD Exacerbation: Continue steroids and antibiotics, Refill sent for nebulizer, Discussed the importance of wearing oxygen as prescribed, Discussed tobacco cessation UTI: Reviewed old sensitivities and sent with Macrobid Oxygen: Continue 2L continuously Severe PVD Chronic Pain Copy Copies To 1: TALITA YBARRA MD, HOLLY R MD Feb 05, 2019 10:16
[2019-02-05] MEDS ORDERED: AZIT250T12 PO (10:21)
[2019-02-05] MEDS ORDERED: NITR-65 PO (10:21)
[2019-02-05] MEDS ORDERED: IPRA3AMP31 IH (10:21)
--- NOTE | 2019-02-05 10:26 | Discharge Instructions ---
Discharge [facility] Discharge Medications New, Converted or Re-Newed RX: Transmitted to Pharmacy New Medications: Ipratropium/Albuterol Sulfate (Iprat-Albut 0.5-3(2.5) mg/3 ml) 3 Ml Ampul.neb 3 ML IH Q6H PRN for SHORTNESS OF BREATH, #90 EACH Nitrofurantoin Monohyd/M-Cryst (Macrobid 100 mg Capsule) 100 Mg Capsule 1 TAB PO BID for 7 Days, #14 CAP Azithromycin (Azithromycin) 250 Mg Tablet 250 MG PO DAILY, #5 TAB Continued Medications: Albuterol Sulfate (Proair Hfa) 1 Puff Puff 2 PUFF IH Q4H PRN for SHORTNESS OF BREATH, INHALER Budesonide/Formoterol Fumarate (Symbicort 80-4.5 Mcg Inhaler) 10.2 Gm Hfa.aer.ad 2 PUFF IH BID, INHALER Cetirizine HCl (Cetirizine HCl) 10 Mg Tablet 10 MG PO DAILY, TAB Dicyclomine HCl (Dicyclomine HCl) 10 Mg Capsule 20 MG PO TID, CAP TAKES 2 (10MG) CAPSULES Fluticasone Propionate (Fluticasone Propionate) 16 Gm [place].susp 2 SPRAYS NS DAILY, EA Folic Acid/Multivit-Minerals (One-A-Day Vitacraves Gummies) 200 Mcg Tab.chew 1 TAB.CHEW PO DAILY, TAB Gabapentin (Gabapentin) 300 Mg Capsule 900 MG PO QID, CAP TAKES 3 (300MG) CAPUSLES Lipase/Protease/Amylase (Pancreaze 16,800 Unit Cap) 1 Each Capsule. 1 CAP PO TIDAC, CAP Ranitidine HCl (Ranitidine HCl) 150 Mg Tablet 150 MG PO BID, TAB Patient Instructions Goal/Follow Up Appt: [facility] appt with Dr Ybarra on Friday 02/09 @ 10 AM Patient Instructions: - Make sure you complete your antibiotics Activity & Diet Discharge Diet: Cardiac Diet Activity as Tolerated: Yes Orders-Post D/C & Referrals Pneu Vac Indicated: Yes Copy Copies To 1: TALITA YBARRA MD, HOLLY R MD Feb 05, 2019 10:26
[2019-02-05] MEDS ORDERED: MEROPENEM 500 MG/SWFI 10 ML IV PUSH IV SCH ×2 (14:00)
[2019-02-05 15:00] VITALS: BP 155/95
--- NOTE | 2019-02-05 15:00 | NUR ---
SOPHIE CORNELIUS demonstrates understanding of discharge instructions and accurately returns instructions upon questioning. Copy of Post-Discharge Instructions given to PT. SOPHIE CORNELIUS is able to manage continuing needs after discharge. Patients belongings returned to PT. Patient discharged from [facility] on 02/05/19 at 1500. SOPHIE CORNELIUS left floor via W/C, accompanied by STAFF AND S/O.
[2019-02-06] MEDS ORDERED: PATCH REMOVAL TP SCH (09:00)
== END 2019-02-05 15:00 | disposition home or self-care (01) ==
LOC: EDUNIT# 20:48 → ER 20:49 → 4TH 22:09
PROVIDERS: ADMIT Family Medicine; ATTEND Family Medicine
DX: J43.9 Emphysema, unspecified (principal); N39.0 Urinary tract infection, site not specified; F17.210 Nicotine dependence, cigarettes, uncomplicated; I10 Essential (primary) hypertension; G43.909 Migraine, unspecified, not intractable, without status migrainosus; K21.9 Gastro-esophageal reflux disease without esophagitis; Z87.19 Personal history of other diseases of the digestive system; M81.0 Age-related osteoporosis without current pathological fracture; N28.9 Disorder of kidney and ureter, unspecified; F41.9 Anxiety disorder, unspecified; F32.9 Major depressive disorder, single episode, unspecified; I73.9 Peripheral vascular disease, unspecified; G89.29 Other chronic pain; Z88.1 Allergy status to other antibiotic agents; Z79.899 Other long term (current) drug therapy; Z99.81 Dependence on supplemental oxygen; Z87.01 Personal history of pneumonia (recurrent); Z88.0 Allergy status to penicillin; Z86.73 Personal history of transient ischemic attack (TIA), and cerebral infarction without residual deficits
CPT/HCPCS: 36415; 71045; 80048; 80053; 81000; 83605; 83880; 84484; 85007; 85025; 85027; 85610; 85730; 86141; 87040; 87088; 93005; 94640; 94760; 96361; 96365; 96375; G0378

== ENCOUNTER 2019-03-06 23:45 | Observation (INO) | payer MEDICAID ==
[~2019-03-06] VITALS: Ht 154.9 cm; Wt 37.2 kg
[~2019-03-06 23:45] MED LIST changes: +AZIT250T12 PO; +DYCL5POW MC; +[UNRECOGNIZED DRUG - CODE] PO
--- NOTE | 2019-03-06 23:45 | NUR ---
patient arrives via ems to room 3, patietn wakes momentarily then goes right back to sleep.
[2019-03-06] MEDS ORDERED: NS IV 1000 ML 1,000 ML IV SCH (23:53)
--- NOTE | 2019-03-06 23:57 | ED Respiratory ---
General Stated Complaint: SOB Source: patient, EMS Exam Limitations: clinical condition History of Present Illness Date Seen by Provider: Mar 06, 2019 Time Seen by Provider: 23:43 Initial Comments Patient presents by EMS to the ER for shortness of breath and altered mental status. Since 6:00 this evening after eating some [place] food she's been very tired. No incidence of choking. She has a history of COPD and has been transported before secondary to altered mental status and shortness of breath related to her COPD. She's had a cough. No fevers or history of diabetes. EMS reports she'll open her eyes and answer a few questions but very somnolent. They put a DuoNeb on her. She wears oxygen at baseline and with the DuoNeb she satting in the mid to upper 90s. Patient is accompanied by her ex- who apparently lives with her. He gives a history that she has not been sick or having more productive cough lately. No fevers or chills. She did however after dinner take one or 2 morphine tablets that she had squirreled away. Allergies and Home Medications Allergies Coded Allergies: ofloxacin (Verified Allergy, Mild, 02/04/19) Penicillins (Verified Allergy, Unknown, Pt has received Ceftriaxone & Cefepime in the past w/o issue, 02/04/19) amoxicillin (Verified Allergy, Unknown, 02/04/19) clavulanic acid (Verified Allergy, Unknown, 02/04/19) promethazine (Verified Allergy, Unknown, 02/04/19) propoxyphene (Verified Allergy, Unknown, 02/04/19) ketorolac (Verified Adverse Reaction, Unknown, 11/08/17) tramadol (Verified Adverse Reaction, Unknown, 11/08/17) Home Medications Albuterol Sulfate 1 Puff Puff, 2 PUFF IH Q4H PRN for SHORTNESS OF BREATH, (Reported) Azithromycin 250 Mg Tablet, 250 MG PO DAILY Prescribed by: TALITA YBARRA on 02/05/19 1021 Budesonide/Formoterol Fumarate 10.2 Gm Hfa.aer.ad, 2 PUFF IH BID, (Reported) Cetirizine HCl 10 Mg Tablet, 10 MG PO DAILY, (Reported) Dicyclomine HCl 10 Mg Capsule, 20 MG PO TID, (Reported) TAKES 2 (10MG) CAPSULES Fluticasone Propionate 16 Gm [place].susp, 2 SPRAYS NS DAILY, (Reported) Folic Acid/Multivit-Minerals 200 Mcg Tab.chew, 1 TAB.CHEW PO DAILY, (Reported) Gabapentin 300 Mg Capsule, 900 MG PO QID, (Reported) TAKES 3 (300MG) CAPUSLES Ipratropium/Albuterol Sulfate 3 Ml Ampul.neb, 3 ML IH Q6H PRN for SHORTNESS OF BREATH Prescribed by: TALITA YBARRA on 02/05/19 1021 Lipase/Protease/Amylase 1 Each Capsule.dr, 1 CAP PO TIDAC, (Reported) Nitrofurantoin Monohyd/M-Cryst 100 Mg Capsule, 1 TAB PO BID Prescribed by: TALITA YBARRA on 02/05/19 1021 Ranitidine HCl 150 Mg Tablet, 150 MG PO BID, (Reported) Patient Home Medication List Home Medication List Reviewed: Yes Review of Systems Review of Systems Constitutional: see HPI (limited review of systems); No chills, No fever EENTM: No ear pain, No eye pain Respiratory: cough (chronic nonproductive); No phlegm, No short of breath, No wheezing Cardiovascular: No chest pain, No edema Gastrointestinal: No abdominal pain, No constipation, No diarrhea Genitourinary: No discharge, No dysuria Musculoskeletal: No back pain, No joint pain Past Hmqvrwj-Evcjyd-Fhggso Hx Patient Social History Alcohol Beverage of Choice: Beer Recreational Drug Use: Yes Drug of Choice: RX MEDICATIONS, JUAN CARLOS OXYCODONE/OPIATES & BENZODIAZEPINES, WELL ILLICIT Smoking Status: Current Everyday Smoker Type Used: Cigars, Cigarettes (1.5 ppd) 2nd Hand Smoke Exposure: No Recent Foreign Travel: No Contact w/Someone Who Travel: No Recent Hopitalizations: Yes Immunizations Up To Date Tetanus Booster (TDap): Unknown PED Vaccines UTD: No Date of Pneumonia Vaccine: Jul 26, 2009 Date of Influenza Vaccine: Sep 26, 2013 Seasonal Allergies Seasonal Allergies: No Past Medical History Surgeries: Yes (left leg amputation) Abdominal, Amputation, Eye Surgery, Gallbladder, Hysterectomy, Oophorectomy, Orthopedic Respiratory: Yes (ASPIRATION AND ARDS, wears O2 at home at 2 LPM) Asthma, Pneumonia, Chronic Bronchitis, COPD, Emphysema Currently Using CPAP: No Currently Using BIPAP: No Cardiac: Yes Hypertension Neurological: Yes (CHRONIC PHANTOM LEG PAIN, TREMORS) Headaches /Migraines, Stroke 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 Disorders: Yes 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 Sexually Transmitted Disease: No HIV/AIDS: No Genitourinary: Yes (CHRONIC RENAL INSUFFICIENCY) UTI-Chronic Gastrointestinal: Yes (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) Gastroesophageal Reflux, Pancreatitis, Hiatal Hernia, Ulcer, Gall Bladder Disease Musculoskeletal: Yes Amputee, Osteoporosis, Fractures Endocrine: Yes (history of chronic pancreatitis) HEENT: Yes (EDENTULOUS; BILATERAL CATARACT SURGERY) Cataract Loss of Vision: Denies Hearing Impairment: Denies Cancer: No Psychosocial: Yes Anxiety, Suicide Attempts, Depression Integumentary: No Blood Disorders: No Adverse Reaction/Blood Tranf: No Family Medical History Alzheimer's disease 19 FATHER 19 MOTHER Asthma 19 FATHER Completed stroke 19 FATHER Deafness or hearing loss 19 FATHER Dementia 19 FATHER Diabetes mellitus 19 FATHER 19 MOTHER Headache disorder 19 FATHER Hypertension 19 FATHER 19 MOTHER Myocardial infarction 19 FATHER 19 MOTHER Respiratory disorder 19 FATHER No Family History of: Kidney disease No Pertinent Family Hx, Heart Disease, COPD, Diabetes, Hypertension, Stroke Physical Exam Vital Signs - First Documented 03/06/19 23:45 Temp 99.0 Pulse 91 Resp 14 B/P (MAP) 107/80 Pulse Ox 100 O2 Delivery Nasal Cannula O2 Flow Rate 10.00 FiO2 100 Capillary Refill : Height: 5'1.00" Weight: 72lbs. 0.0oz. 32.920274dz; 13.6 BMI Method:Stated General Appearance: cachetic, thin Eyes: Bilateral Eye Other (2 mm bilateral) HEENT: PERRL/EOMI, normal ENT inspection, TMs normal, pharynx normal Neck: full range of motion, normal inspection Respiratory: chest non-tender, lungs clear, normal breath sounds, no respiratory distress, no accessory muscle use, other (slow uneven respiratory rate from 8-10) Cardiovascular: normal peripheral pulses, regular rate, rhythm Focused Exam Lactate Level 03/07/19 00:03: Lactic Acid Level 0.82 Lactic Acid Level Laboratory Tests Test 03/07/19 00:03 Lactic Acid Level 0.82 MMOL/L (0.50-2.00) Progress/Results/Core Measures Suspected Sepsis SIRS Temperature: Pulse: Respiratory Rate: Laboratory Tests 03/07/19 00:33: White Blood Count 8.5 Blood Pressure / Mean: 03/07/19 00:03: Lactic Acid Level 0.82 Laboratory Tests 03/06/19 23:59: INR Comment 0.8 03/07/19 00:33: Creatinine 1.60H, Platelet Count 183, Total Bilirubin 0.1 Results/Orders Lab Results Laboratory Tests Test 03/06/19 00:56 03/06/19 23:59 03/07/19 00:03 03/07/19 00:15 Range/Units Urine Color YELLOW Urine Clarity CLEAR Urine pH 5 5-9 Urine Specific [place] 1.020 1.016-1.022 Urine Protein 3+ H NEGATIVE Urine Glucose (UA) NEGATIVE NEGATIVE Urine Ketones NEGATIVE NEGATIVE Urine Nitrite NEGATIVE NEGATIVE Urine Bilirubin NEGATIVE NEGATIVE Urine Urobilinogen NORMAL NORMAL MG/DL Urine Leukocyte Esterase 1+ H NEGATIVE Urine RBC (Auto) 2+ H NEGATIVE Urine RBC 2-5 H /HPF Urine WBC 2-5 /HPF Urine Squamous Epithelial Cells 10-25 H /HPF Urine Crystals NONE /LPF Urine Bacteria FEW H /HPF Urine Casts PRESENT /LPF Urine Granular Casts 0-2 H /LPF Urine Mucus SMALL H /LPF Urine Culture Indicated CULTURE PENDING Prothrombin Time 11.7 L 12.2-14.7 SEC INR Comment 0.8 0.8-1.4 Activated Partial Thromboplast Time 35 24-35 SEC Lactic Acid Level 0.82 0.50-2.00 MMOL/L Blood Gas Puncture Site NOT INDICATED Blood Gas Patient Temperature 99.0 Arterial Blood pH 7.18 *L 7.37-7.43 Arterial Blood Partial Pressure CO2 57 H 35-45 MMHG Arterial Blood Partial Pressure O2 101 H 79-93 MMHG Arterial Blood HCO3 20 L 23-27 MMOL/L Arterial Blood Total CO2 22.1 21.0-31.0 MMOL/L Arterial Blood Oxygen Saturation 97 94-100 % Arterial Blood Base Excess -6.7 L -2.5-2.5 MMOL/L Marino Test NA Blood Gas Ventilator Setting NO Blood Gas Inspired Oxygen 2L Test 03/07/19 00:33 Range/Units White Blood Count 8.5 4.3-11.0 10^3/uL Red Blood Count 3.93 L 4.35-5.85 10^6/uL Hemoglobin 12.9 11.5-16.0 G/DL Hematocrit 43 35-52 % Mean Corpuscular Volume 110 H 80-99 FL Mean Corpuscular Hemoglobin 33 25-34 PG Mean Corpuscular Hemoglobin Concent 30 L 32-36 G/DL Red Cell Distribution Width 17.1 H 10.0-14.5 % Platelet Count 183 130-400 10^3/uL Mean Platelet Volume 10.9 H 7.4-10.4 FL Neutrophils (%) (Auto) 81 H 42-75 % Lymphocytes (%) (Auto) 7 L 12-44 % Monocytes (%) (Auto) 11 0-12 % Eosinophils (%) (Auto) 1 0-10 % Basophils (%) (Auto) 0 0-10 % Neutrophils # (Auto) 6.9 1.8-7.8 X 10^3 Lymphocytes # (Auto) 0.6 L 1.0-4.0 X 10^3 Monocytes # (Auto) 0.9 0.0-1.0 X 10^3 Eosinophils # (Auto) 0.1 0.0-0.3 10^3/uL Basophils # (Auto) 0.0 0.0-0.1 10^3/uL Sodium Level 141 135-145 MMOL/L Potassium Level 4.8 3.6-5.0 MMOL/L Chloride Level 112 H 98-107 MMOL/L Carbon Dioxide Level 19 L 21-32 MMOL/L Anion Gap 10 5-14 MMOL/L Blood Urea Nitrogen 30 H 7-18 MG/DL Creatinine 1.60 H 0.60-1.30 MG/DL Estimat Glomerular Filtration Rate 34 BUN/Creatinine Ratio 19 Glucose Level 119 H 70-105 MG/DL Calcium Level 9.9 8.5-10.1 MG/DL Corrected Calcium 9.7 8.5-10.1 MG/DL Total Bilirubin 0.1 0.1-1.0 MG/DL Aspartate Amino Transf (AST/SGOT) 9 5-34 U/L Alanine Aminotransferase (ALT/SGPT) 7 0-55 U/L Alkaline Phosphatase 75 40-136 U/L Troponin I < 0.028 <0.028 NG/ML Total Protein 7.1 6.4-8.2 GM/DL Albumin 4.3 3.2-4.5 GM/DL My Orders Orders - CHAD COLLINS Cbc With Automated Diff (03/06/19 23:53) Comprehensive Metabolic Panel (03/06/19 23:53) Blood Culture (03/06/19 23:53) Sputum Culture (03/06/19 23:53) Urinalysis (03/06/19 23:53) Urine Culture (03/06/19 23:53) Protime With Inr (03/06/19 23:53) Partial Thromboplastin Time (03/06/19 23:53) Ed Iv/Invasive Line Start (03/06/19 23:53) Ed Iv/Invasive Line Start (03/06/19 23:53) Ekg Tracing (03/06/19 23:53) Troponin I (03/06/19 23:53) Vital Signs Adult Sepsis Patie Q15M (03/06/19 23:53) O2 (03/06/19 23:53) Remove Rings In Anticipation O (03/06/19 23:53) Lactic Acid Analyzer (03/06/19 23:53) Ns Iv 1000 Ml (Sodium Chloride 0.9%) (03/06/19 23:53) Cefepime Injection (Maxipime Injection) (03/07/19 00:00) Arterial Blood Gas (03/06/19 23:53) Chest 1 View, Ap/Pa Only (03/07/19 00:01) Naloxone Injection (Narcan Injection) (03/07/19 00:45) Medications Given in ED Current Medications Medications Dose Ordered Sig/Ely Route Start Time Stop Time Status Last Admin Dose Admin Cefepime HCl 1000 mg/Sterile Water 10 ml @ 200 mls/hr ONCE ONCE IV 03/07/19 00:00 03/07/19 00:02 DC 03/07/19 00:49 200 MLS/HR Naloxone HCl 0.4 mg ONCE ONCE IV 03/07/19 00:45 03/07/19 00:46 DC 03/07/19 00:49 0.4 MG Vital Signs/I&O 03/06/19 03/06/19 03/06/19 23:45 23:45 23:45 Temp 99.0 99.0 Pulse 91 91 Resp 14 14 B/P (MAP) 107/80 107/80 (89) Pulse Ox 100 100 O2 Delivery Nasal Cannula OxyMask Simple Mask O2 Flow Rate 10.00 10.00 10.00 FiO2 100 Capillary Refill : Progress Note : Time: 01:21 Progress Note The patient was breathing slow and if she was not a GCS of 13 we were going to intubate her. However she does not appear to be having any wheezing at this time after a DuoNeb from EMS. She has pinpoint pupils and a history of morphine use so we gave her some Narcan which immediately woke her up and she was fussing about wearing the mask and complaining loudly, verbally. BiPAP was initiated with a rate of 18 and that also improved her cognition before the Narcan was given. Plan to keep her for overdose on the BiPAP overnight. She has an acute kidney injury. We did a septic workup that a 20 mL/kg fluid bolus. She's not be en hypotensive. The patient does not answer questions about intent or suicidality. The ex- whom she lives with indicated she had no mention of suicidal ideation. ECG Initial ECG Impression Date: Mar 06, 2019 Initial ECG Impression Time: 23:52 Initial ECG Rate: 88 Initial ECG Rhythm: Normal Sinus Initial ECG Intervals: Normal Initial ECG Impression: Normal, Nonspecific Changes Initial ECG Comparisson: Unchanged Comment No acute ST elevation or depression. Diagnostic Imaging Diagonstic Imaging: Xray Plain Films/CT/US/NM/MRI: chest (1v) Comments Noted to cardiopulmonary processes noted. Reviewed: Reviewed by Me Departure Communication (Admissions) Time/Spoke to Admitting Phy: 01:30 Discussed the case and plan and Dr. Ybarra is okay with the stepdown unit. Impression Primary Impression: Opiate overdose Qualified Codes: T40.604A - Poisoning by unspecified narcotics, undetermined, initial encounter Additional Impressions: Respiratory failure, acute and chronic Qualified Codes: J96.22 - Acute and chronic respiratory failure with hypercapnia Acute kidney injury Disposition: ADMITTED INPATIENT Condition: Stable Admissions Decision to Admit Reason: Admit from ER (General) Decision to Admit/Date: Mar 07, 2019 Time/Decision to Admit Time: 01:20 Departure-Patient Inst. Referrals: [facility] (PCP/Family) Primary Care Physician CHAD COLLINS Mar 06, 2019 23:57
[2019-03-07] VITALS (16 sets, daily range): BP systolic 73–152; BP diastolic 63–105
[2019-03-07] MEDS ORDERED: CEFEPIME INJECTION 1,000 MG in WATER (STERILE) FOR INJECTION 10 ML IV ONE ×2
[2019-03-07 00:29] LABS: ABG PCO2 57 MMHG (35-45); ABG PO2 101 MMHG (79-93)
[2019-03-07 00:30] LABS: ABG BASE EXCESS -6.7 MMOL/L (-2.5-2.5); ABG OXYGEN SATURATION 97 % (94-100); ABG TCO2 22.1 MMOL/L (21.0-31.0); INSPIRED O2 2L; VENTILATOR NO
[2019-03-07 00:31] LABS: ABG PH 7.18 (7.37-7.43)
[2019-03-07 00:34] LABS: INR 0.8 (0.8-1.4); PROTHROMBIN TIME PATIENT 11.7 SEC (12.2-14.7)
[2019-03-07] MEDS ORDERED: NALOXONE 0.4 MG/ML 1 ML (NARCAN) VIAL IV ONE ×3 (00:45→05:30)
--- NOTE | 2019-03-07 00:53 | NUR ---
verbalizes she took some morphine. SO states she found some of her old medicine. SO believes the morphine pill was 30 mg.
[2019-03-07 00:57] LABS: BASOPHILS % (AUTO) 0 % (0-10); EOSINOPHILS # (AUTO) 0.1 10^3/uL (0.0-0.3); EOSINOPHILS % (AUTO) 1 % (0-10); HEMATOCRIT 43 % (35-52); HEMOGLOBIN 12.9 G/DL (11.5-16.0); LYMPHOCYTES # (AUTO) 0.6 X 10^3 (1.0-4.0); LYMPHOCYTES % (AUTO) 7 % (12-44); MEAN CORPUSCULAR HEMOGLOBIN 33 PG (25-34); MEAN CORPUSCULAR HGB CONC 30 G/DL (32-36); MEAN CORPUSCULAR VOLUME 110 FL (80-99); MEAN PLATELET VOLUME 10.9 FL (7.4-10.4); MONOCYTES # (AUTO) 0.9 X 10^3 (0.0-1.0); MONOCYTES % (AUTO) 11 % (0-12); NEUTROPHILS # (AUTO) 6.9 X 10^3 (1.8-7.8); NEUTROPHILS % (AUTO) 81 % (42-75); PLATELET COUNT 183 10^3/uL (130-400); RED CELL DISTRIBUTION WIDTH 17.1 % (10.0-14.5); WHITE BLOOD COUNT 8.5 10^3/uL (4.3-11.0)
[2019-03-07 01:01] LABS: BILIRUBIN,URINE NEGATIVE (NEGATIVE); CLARITY,URINE CLEAR; COLOR,URINE YELLOW; GLUCOSE, URINE (UA) NEGATIVE (NEGATIVE); KETONES,URINE NEGATIVE (NEGATIVE); LEUKOCYTE ESTERASE ,URINE 1+ (NEGATIVE); NITRITE,URINE NEGATIVE (NEGATIVE); PH,URINE 5 (5-9); PROTEIN,URINE 3+ (NEGATIVE); UROBILINOGEN,URINE NORMAL (NORMAL)
[2019-03-07 01:09] LABS: ALANINE AMINOTRANSFERASE 7 U/L (0-55); ALBUMIN 4.3 GM/DL (3.2-4.5); ALKALINE PHOSPHATASE 75 U/L (40-136); BILIRUBIN,TOTAL 0.1 MG/DL (0.1-1.0); BUN/CREATININE RATIO 19; CALCIUM 9.9 MG/DL (8.5-10.1); CARBON DIOXIDE 19 MMOL/L (21-32); CHLORIDE 112 MMOL/L (98-107); GFR ESTIMATED 34; GLUCOSE 119 MG/DL (70-105); POTASSIUM 4.8 MMOL/L (3.6-5.0); SODIUM 141 MMOL/L (135-145); TOTAL PROTEIN 7.1 GM/DL (6.4-8.2)
[2019-03-07 01:11] LABS: BACTERIA,URINE FEW /HPF; GRANULAR CASTS,URINE 0-2 /LPF
--- NOTE | 2019-03-07 02:25 | NUR ---
PATIENT TAKEN TO ICU ROOM 7, REPORT GIVEN TO KATELYN NARVAEZ. RESPIRATORY THERAPY STAFF ACCOMPANIES ER STAFF FOR TRANSFER. PATIENT VITAL SIGNS STABLE. MARIA PATIENT S.O. WOULD LIKE TO BE CALLED FOR ANY CHANGES NUMBER GIVEN TO KATELYN NARVAEZ AND IS FOLLOWS. [phone]
[2019-03-07] MEDS ORDERED: ONDANSETRON 4 MG/2 ML (SDV) Z0FRAN IVP PRN (02:30)
[2019-03-07] MEDS ORDERED: NALOXONE 0.4 MG/ML 1 ML (NARCAN) VIAL IV PRN (02:30)
[2019-03-07] MEDS ORDERED: NS IV 1000 ML 1,000 ML IV SCH (02:45)
[2019-03-07 02:57] LABS: AMPHETAMINE SCREEN, URINE NEGATIVE (NEGATIVE); BENZODIAZEPINES SCREEN URINE NEGATIVE (NEGATIVE); CANNABINOID SCREEN, URINE POSITIVE (NEGATIVE); COCAINE SCREEN URINE NEGATIVE (NEGATIVE); METHAMPHETAMINE SCREEN URINE S NEGATIVE (NEGATIVE)
[2019-03-07 02:57] LABS: ABG OXYGEN SATURATION 83 % (94-100); ABG PCO2 62 MMHG (35-45); ABG PO2 50 MMHG (79-93)
[2019-03-07 02:58] LABS: BARBITURATE SCREEN URINE NEGATIVE (NEGATIVE); METHADONE STAT NEGATIVE (NEGATIVE); OPIATE SCREEN URINE POSITIVE (NEGATIVE); OXYCODONE STAT NEGATIVE (NEGATIVE); PROPOXYPHENE STAT NEGATIVE (NEGATIVE); TRICYCLIC ANTIDEPRESSANTS SCRE NEGATIVE (NEGATIVE)
[2019-03-07 02:59] LABS: ABG PH 7.13 (7.37-7.43)
[2019-03-07 03:00] LABS: ALLENS TEST YES-POS; INSPIRED O2 35%; VENTILATOR NO
[2019-03-07 03:27] LABS: ABG BASE EXCESS -8.1 MMOL/L (-2.5-2.5); ABG OXYGEN SATURATION 94 % (94-100); ABG PCO2 60 MMHG (35-45); ABG PO2 75 MMHG (79-93); ABG TCO2 21.7 MMOL/L (21.0-31.0)
[2019-03-07 03:29] LABS: ABG PH 7.14 (7.37-7.43)
[2019-03-07 03:30] LABS: INSPIRED O2 35%; VENTILATOR NO
[2019-03-07] MEDS ORDERED: NALOXONE 0.4 MG/ML 1 ML (NARCAN) VIAL ONE (03:49)
[2019-03-07] MEDS ORDERED: NALOXONE INJECTION 0.4 MG in NS (IVPB) 99 ML IV SCH (04:30)
[2019-03-07] MEDS ORDERED: NALOXONE INJECTION 0.4 MG in NS (IVPB) 99 ML IV PRN (04:30)
[2019-03-07] MEDS: NALOXONE INJECTION 0.4 MG in NS (IVPB) 99 ML IV SCH ×2 (04:37→07:00)
--- NOTE | 2019-03-07 04:59 | Pulmonary Consultation ---
History of Present Illness History of Present Illness Date of Consultation 03/07/19 04:54 Time Seen by Provider: 04:54 Date of Admission History of Present Illness 48yo with hx of oxygen dependent COPD and multiple hospitalizations presented secondary to worsening SOB and lethargy. MS has worsened through the night she has received multiple pushes of Narcan which initially improved MS. Pt is currently on BiPAP and is once again very lethargic. EICU placed pt on a Narcan gtt. All information obtained from chart. Pt has had multiple episodes of narcotic ODs. Allergies and Home Medications Allergies Coded Allergies: ofloxacin (Verified Allergy, Mild, 02/04/19) Penicillins (Verified Allergy, Unknown, Pt has received Ceftriaxone & Cefepime in the past w/o issue, 02/04/19) amoxicillin (Verified Allergy, Unknown, 02/04/19) clavulanic acid (Verified Allergy, Unknown, 02/04/19) promethazine (Verified Allergy, Unknown, 02/04/19) propoxyphene (Verified Allergy, Unknown, 02/04/19) ketorolac (Verified Adverse Reaction, Unknown, 11/08/17) tramadol (Verified Adverse Reaction, Unknown, 11/08/17) Home Medications Albuterol Sulfate 1 Puff Puff, 2 PUFF IH Q4H PRN for SHORTNESS OF BREATH, (Reported) Azithromycin 250 Mg Tablet, 250 MG PO DAILY Prescribed by: TALITA MESSER on 02/05/19 1021 Budesonide/Formoterol Fumarate 10.2 Gm Hfa.aer.ad, 2 PUFF IH BID, (Reported) Cetirizine HCl 10 Mg Tablet, 10 MG PO DAILY, (Reported) Dicyclomine HCl 10 Mg Capsule, 20 MG PO TID, (Reported) TAKES 2 (10MG) CAPSULES Fluticasone Propionate 16 Gm [place].susp, 2 SPRAYS NS DAILY, (Reported) Folic Acid/Multivit-Minerals 200 Mcg Tab.chew, 1 TAB.CHEW PO DAILY, (Reported) Gabapentin 300 Mg Capsule, 900 MG PO QID, (Reported) TAKES 3 (300MG) CAPUSLES Ipratropium/Albuterol Sulfate 3 Ml Ampul.neb, 3 ML IH Q6H PRN for SHORTNESS OF BREATH Prescribed by: TALITA MESSER on 02/05/19 1021 Lipase/Protease/Amylase 1 Each Capsule.dr, 1 CAP PO TIDAC, (Reported) Nitrofurantoin Monohyd/M-Cryst 100 Mg Capsule, 1 TAB PO BID Prescribed by: TALITA MESSER on 02/05/19 1021 Ranitidine HCl 150 Mg Tablet, 150 MG PO BID, (Reported) Past Iqnabya-Jibtoh-Rayguj Hx Patient Social History Alcohol Use: Past History Number of Drinks Today: AA Alcohol Beverage of Choice: Beer Recreational Drug Use: Yes Drug of Choice: RX MEDICATIONS, JUAN CARLOS OXYCODONE/OPIATES & BENZODIAZEPINES, WELL ILLICIT Smoking Status: Current Everyday Smoker Type Used: Cigars, Cigarettes (1.5 ppd) 2nd Hand Smoke Exposure: No Recent Foreign Travel: No Contact w/Someone Who Travel: No Recent Infectious Disease Expo: No Recent Hopitalizations: No Immunizations Up To Date Tetanus Booster (TDap): Unknown PED Vaccines UTD: No Date of Pneumonia Vaccine: Jul 26, 2009 Date of Influenza Vaccine: Sep 26, 2013 Seasonal Allergies Seasonal Allergies: No Past Medical History Surgeries: Yes (left leg amputation) Abdominal, Amputation, Eye Surgery, Gallbladder, Hysterectomy, Oophorectomy, Orthopedic Respiratory: Yes (ASPIRATION AND ARDS, wears O2 at home at 2 LPM) Asthma, Pneumonia, Chronic Bronchitis, COPD, Emphysema Currently Using CPAP: No Currently Using BIPAP: No Cardiac: Yes Hypertension Neurological: Yes (CHRONIC PHANTOM LEG PAIN, TREMORS) Headaches /Migraines, Stroke 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 Disorders: Yes 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 Sexually Transmitted Disease: No HIV/AIDS: No Genitourinary: Yes (CHRONIC RENAL INSUFFICIENCY) UTI-Chronic Gastrointestinal: Yes (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) Gastroesophageal Reflux, Pancreatitis, Hiatal Hernia, Ulcer, Gall Bladder Disease Musculoskeletal: Yes Amputee, Osteoporosis, Fractures Endocrine: Yes (history of chronic pancreatitis) HEENT: Yes (EDENTULOUS; BILATERAL CATARACT SURGERY) Cataract Loss of Vision: Denies Hearing Impairment: Denies Cancer: No Psychosocial: Yes Anxiety, Suicide Attempts, Depression Integumentary: No Blood Disorders: No Adverse Reaction/Blood Tranf: No Family Medical History Alzheimer's disease 19 FATHER 19 MOTHER Asthma 19 FATHER Completed stroke 19 FATHER Deafness or hearing loss 19 FATHER Dementia 19 FATHER Diabetes mellitus 19 FATHER 19 MOTHER Headache disorder 19 FATHER Hypertension 19 FATHER 19 MOTHER Myocardial infarction 19 FATHER 19 MOTHER Respiratory disorder 19 FATHER No Family History of: Kidney disease No Pertinent Family Hx, Heart Disease, COPD, Diabetes, Hypertension, Stroke Review of Systems Time Seen by Provider: 05:04 Sepsis Event Evaluation Height, Weight, BMI Height: 5'1.00" Weight: 82lbs. 0.0oz. 37.996297gb; 15.5 BMI Method:Stated Exam Exam Vital Signs Date Time Temp Pulse Resp B/P (MAP) Pulse Ox O2 Delivery O2 Flow Rate FiO2 03/07/19 04:45 90 21 116/83 (94) 99 NIV Bilevel 35.00 03/07/19 04:30 76 20 123/82 (96) 99 NIV Bilevel 35.00 03/07/19 04:15 80 20 140/86 (104) 100 NIV Bilevel 35.00 03/07/19 04:15 89 100 34 03/07/19 04:00 NIV Bilevel 35 03/07/19 04:00 89 30 128/91 (103) 100 NIV Bilevel 35.00 03/07/19 03:59 69 97 35.00 03/07/19 02:48 97.0 80 16 101/81 (88) 95 NIV Bilevel 35.00 03/07/19 02:26 83 20 116/87 (97) 96 2.00 03/06/19 23:45 99.0 91 14 107/80 (89) 100 Simple Mask 10.00 03/06/19 23:45 OxyMask 10.00 100 03/06/19 23:45 99.0 91 14 107/80 100 Nasal Cannula 10.00 03/06/19 23:30 75 93 40.00 I & O 03/07/19 07:00 Intake Total 1010 ml Balance 1010 ml Height & Weight Height: 5'1.00" Weight: 82lbs. 0.0oz. 37.521336we; 15.5 BMI Method:Stated General Appearance: Moderate Distress, Thin HEENT: PERRL/EOMI, Normal ENT Inspection Neck: Full Range of Motion, Non Tender Respiratory: Chest Non Tender, Accessory Muscle Use, Decreased Breath Sounds, Respiratory Distress Cardiovascular: Regular Rate, Rhythm, No Edema Capillary Refill: Less Than 3 Seconds Gastrointestinal: normal bowel sounds, non tender, soft Extremity: Normal Capillary Refill, No Pedal Edema Neurologic/Psychiatric: Alert, Oriented x3 Skin: Normal Color, Warm/Dry Lymphatic: No Adenopathy Results Lab Laboratory Tests 03/07/19 00:33 Assessment/Plan Assessment/Plan Acute on chronic respiratory failure -SVNs -Solumedrol Narcotic OD resulting in C02 narcosis and metabolic encephalopathy -Continue noninvasive ventilation -Recheck ABG -Will intubate if no significant improvement Metabolic acidosis OD with narcotics and marijuana -Education hx of severe COPD- oxygen dependent 02 - ASHLEIGH ORTEGA DO Mar 07, 2019 04:59
[2019-03-07] MEDS ORDERED: methylPREDNISolone 40 MG/ML (Solu-MEDROL) VIAL ONE (05:07)
[2019-03-07 05:09] LABS: ABG BASE EXCESS -7.5 MMOL/L (-2.5-2.5); ABG OXYGEN SATURATION 91 % (94-100); ABG PCO2 52 MMHG (35-45); ABG PO2 59 MMHG (79-93)
[2019-03-07] MEDS: methylPREDNISolone 40 MG/ML (Solu-MEDROL) VIAL IV SCH ×2 (05:13→13:17)
[2019-03-07] MEDS ORDERED: NS IV 1000 ML 1,000 ML IV ONE (05:15)
[2019-03-07 05:17] LABS: ABG PH 7.19 (7.37-7.43); ALLENS TEST YES-POS; INSPIRED O2 21%; PATIENT TEMP 97.7; VENTILATOR NO
[2019-03-07] MEDS ORDERED: SODIUM BICARB 8.4% 50 MEQ/50 ML VIAL ONE (05:23)
[2019-03-07] MEDS ORDERED: SODIUM BICARB 8.4% 50 MEQ/50 ML VIAL IV ONE (05:30)
[2019-03-07] MEDS: RT-ALBUTEROL/IPRATROPIUM 3 ML (DUONEB) VIAL INH SCH ×2 (06:35→10:16)
[2019-03-07] MEDS: NALOXONE IV SCH ×2 (08:46→13:17)
[2019-03-07] MEDS: NS IV SCH ×2 (08:46→13:17)
--- NOTE | 2019-03-07 09:03 | Diagnostic Imaging Report ---
PATIENT HISTORY: Shortness of air. TECHNIQUE: Frontal view of the chest. COMPARISON: 02/05/2019 FINDINGS: Lung volumes are large. There is mild cardiomegaly. There are stable chronic perihilar opacities which are unchanged. There is stable scarring in the lung bases. There appears to be mildly increased airspace opacity in the left lung base. There is no pleural effusion or pneumothorax. IMPRESSION: Stable chronic findings in the lungs with mildly increased airspace opacity in the left lung base. This could represent atelectasis or developing infiltrate. Dictated by: Dictated on workstation # [id number]
[2019-03-07 10:20] LABS: ABG BASE EXCESS -2.8 MMOL/L (-2.5-2.5); ABG OXYGEN SATURATION 88 % (94-100); ABG PCO2 53 MMHG (35-45); ABG PO2 55 MMHG (79-93); ABG TCO2 24.8 MMOL/L (21.0-31.0)
[2019-03-07 10:22] LABS: ABG PH 7.27 (7.37-7.43); ALLENS TEST YES-POS; PATIENT TEMP 98.3; VENTILATOR NO
--- NOTE | 2019-03-07 14:06 | Short Stay Summary ---
HPI History of Present Illness: 48 yo F that presented with acute respiratory failure after taking non prescribed opiates for pain. States that she was not trying to harm herself, she took them because she was in extreme pain. She was also found to have a mild bump in her Cr. This AM she states that she is going home once she gets on her home oxygen level. Source: patient Exam Limitations: no limitations Date seen by provider: Mar 07, 2019 Time Seen by Provider: 11:45 Attending Physician Talita Ybarra MD [place] [place] Consult Date of Admission Mar 07, 2019 at 01:40 Home Medications Home Medications Reviewed patient Home Medication Reconciliation performed by pharmacy medication reconciliations furniture repair technician and/or nursing. Patients Allergies have been reviewed. Allergies Coded Allergies: ofloxacin (Verified Allergy, Mild, 02/04/19) Penicillins (Verified Allergy, Unknown, Pt has received Ceftriaxone & Cefepime in the past w/o issue, 02/04/19) amoxicillin (Verified Allergy, Unknown, 02/04/19) clavulanic acid (Verified Allergy, Unknown, 02/04/19) promethazine (Verified Allergy, Unknown, 02/04/19) propoxyphene (Verified Allergy, Unknown, 02/04/19) ketorolac (Verified Adverse Reaction, Unknown, 11/08/17) tramadol (Verified Adverse Reaction, Unknown, 11/08/17) CZV-[id number]-Calpnw Hx Patient Social History Alcohol Use: Past History Recreational Drug Use: Yes Drug of Choice: RX MEDICATIONS, JUAN CARLOS OXYCODONE/OPIATES & BENZODIAZEPINES, WELL ILLICIT Smoking Status: Current Everyday Smoker Type Used: Cigars, Cigarettes (1.5 ppd) 2nd Hand Smoke Exposure: No Recent Foreign Travel: No Contact w/other who traveled: No Recent Hopitalizations: No Recent Infectious Disease Expo: No Immunizations Up To Date Tetanus Booster (TDap): Unknown Date of Pneumonia Vaccine: Jul 26, 2009 Date of Influenza Vaccine: Sep 26, 2013 Past Medical History Past Medical History 1. Chronic Alcoholism 2. Chronic Narcotic abuse with multiple admissions for overdoses 3. Tobaccoism 4. Multiple hospital admissions for overdoses of alcohol and narcotics 5. 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 History of chronic pancreatitis 7. Anxiety and Depression with history of admission for suicide attempt 8. Chronic Obstructive Pulmonary Disease- supposed to wear O2 however is non compliant 9. THC use 10. History of aspiration pneumonia secondary to overdose and ARDS 11. 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 12. Migraines 13. Osteoporosis 14. History of gastric ulcer 15. Osteoarthritis 16. Anxiety /Bipolar Disorder 17. Bilateral Carpal Tunnel 18. History of involuntary committal to inpatient psychiatric facility Past Surgical History 1. Cholecystectomy 1991 2. JAMEY BSO- for gangenous uterus 3. Lt. TKA 4. Lt. Leg fracture around prosthesis resulting in poor healing fracture with Lt. AKA. 5. Hiatal Hernia Repair 6. Abdominal Hernia repair with mesh 7. Teeth extraction 8. Revision of Lt. AKA stump Dr. Mario Alberto Hodge 12-15-14 Family Medical History Significant Family History: No Pertinent Family Hx, Heart Disease, COPD, Diabetes, Hypertension, Stroke Family History: Alzheimer's disease 19 FATHER 19 MOTHER Asthma 19 FATHER Completed stroke 19 FATHER Deafness or hearing loss 19 FATHER Dementia 19 FATHER Diabetes mellitus 19 FATHER 19 MOTHER Headache disorder 19 FATHER Hypertension 19 FATHER 19 MOTHER Myocardial infarction 19 FATHER 19 MOTHER Respiratory disorder 19 FATHER No Family History of: Kidney disease Review of Systems (CHC) Constitutional: no symptoms reported; No chills, No fever, No malaise EENTM: no symptoms reported; No nose congestion, No nose pain, No throat pain Respiratory: cough (chronic) Cardiovascular: no symptoms reported; No chest pain, No edema, No palpitations Gastrointestinal: no symptoms reported; No abdominal pain, No constipation, No diarrhea, No loss of appetite, No nausea, No vomiting Genitourinary: no symptoms reported; No dysuria, No frequency, No hematuria Musculoskeletal: joint pain, muscle pain Skin: no symptoms reported Psychiatric/Neurological: Anxiety, Weakness Reviewed Test Results Reviewed Test Results Lab Laboratory Tests Test 03/06/19 23:59 03/07/19 00:03 03/07/19 00:15 03/07/19 00:33 Range/Units Prothrombin Time 11.7 L 12.2-14.7 SEC INR Comment 0.8 0.8-1.4 Activated Partial Thromboplast Time 35 24-35 SEC Lactic Acid Level 0.82 0.50-2.00 MMOL/L Blood Gas Puncture Site NOT INDICATED Blood Gas Patient Temperature 99.0 Arterial Blood pH 7.18 *L 7.37-7.43 Arterial Blood Partial Pressure CO2 57 H 35-45 MMHG Arterial Blood Partial Pressure O2 101 H 79-93 MMHG Arterial Blood HCO3 20 L 23-27 MMOL/L Arterial Blood Total CO2 22.1 21.0-31.0 MMOL/L Arterial Blood Oxygen Saturation 97 94-100 % Arterial Blood Base Excess -6.7 L -2.5-2.5 MMOL/L Marino Test NA Blood Gas Ventilator Setting NO Blood Gas Inspired Oxygen 2L White Blood Count 8.5 4.3-11.0 10^3/uL Red Blood Count 3.93 L 4.35-5.85 10^6/uL Hemoglobin 12.9 11.5-16.0 G/DL Hematocrit 43 35-52 % Mean Corpuscular Volume 110 H 80-99 FL Mean Corpuscular Hemoglobin 33 25-34 PG Mean Corpuscular Hemoglobin Concent 30 L 32-36 G/DL Red Cell Distribution Width 17.1 H 10.0-14.5 % Platelet Count 183 130-400 10^3/uL Mean Platelet Volume 10.9 H 7.4-10.4 FL Neutrophils (%) (Auto) 81 H 42-75 % Lymphocytes (%) (Auto) 7 L 12-44 % Monocytes (%) (Auto) 11 0-12 % Eosinophils (%) (Auto) 1 0-10 % Basophils (%) (Auto) 0 0-10 % Neutrophils # (Auto) 6.9 1.8-7.8 X 10^3 Lymphocytes # (Auto) 0.6 L 1.0-4.0 X 10^3 Monocytes # (Auto) 0.9 0.0-1.0 X 10^3 Eosinophils # (Auto) 0.1 0.0-0.3 10^3/uL Basophils # (Auto) 0.0 0.0-0.1 10^3/uL Sodium Level 141 135-145 MMOL/L Potassium Level 4.8 3.6-5.0 MMOL/L Chloride Level 112 H 98-107 MMOL/L Carbon Dioxide Level 19 L 21-32 MMOL/L Anion Gap 10 5-14 MMOL/L Blood Urea Nitrogen 30 H 7-18 MG/DL Creatinine 1.60 H 0.60-1.30 MG/DL Estimat Glomerular Filtration Rate 34 BUN/Creatinine Ratio 19 Glucose Level 119 H 70-105 MG/DL Calcium Level 9.9 8.5-10.1 MG/DL Corrected Calcium 9.7 8.5-10.1 MG/DL Total Bilirubin 0.1 0.1-1.0 MG/DL Aspartate Amino Transf (AST/SGOT) 9 5-34 U/L Alanine Aminotransferase (ALT/SGPT) 7 0-55 U/L Alkaline Phosphatase 75 40-136 U/L Troponin I < 0.028 <0.028 NG/ML Total Protein 7.1 6.4-8.2 GM/DL Albumin 4.3 3.2-4.5 GM/DL Test 03/07/19 00:56 03/07/19 02:50 03/07/19 03:15 03/07/19 05:00 Range/Units Urine Opiates Screen POSITIVE H NEGATIVE Urine Oxycodone Screen NEGATIVE NEGATIVE Urine Methadone Screen NEGATIVE NEGATIVE Urine Propoxyphene Screen NEGATIVE NEGATIVE Urine Barbiturates Screen NEGATIVE NEGATIVE Ur Tricyclic Antidepressants Screen NEGATIVE NEGATIVE Urine Phencyclidine Screen NEGATIVE NEGATIVE Urine Amphetamines Screen NEGATIVE NEGATIVE Urine Methamphetamines Screen NEGATIVE NEGATIVE Urine Benzodiazepines Screen NEGATIVE NEGATIVE Urine Cocaine Screen NEGATIVE NEGATIVE Urine Cannabinoids Screen POSITIVE H NEGATIVE Blood Gas Puncture Site RIGHT RADIAL RIGHT BRACHIAL LEFT RADIAL Blood Gas Patient Temperature 97.0 97.0 97.7 Arterial Blood pH 7.13 *L 7.14 *L 7.19 *L 7.37-7.43 Arterial Blood Partial Pressure CO2 62 H 60 H 52 H 35-45 MMHG Arterial Blood Partial Pressure O2 50 L 75 L 59 L 79-93 MMHG Arterial Blood HCO3 20 L 20 L 19 L 23-27 MMOL/L Arterial Blood Total CO2 22.0 21.7 21.0 21.0-31.0 MMOL/L Arterial Blood Oxygen Saturation 83 L 94 91 L 94-100 % Arterial Blood Base Excess -8.0 L -8.1 L -7.5 L -2.5-2.5 MMOL/L Marino Test YES-POS NA YES-POS Blood Gas Ventilator Setting NO NO NO Blood Gas Inspired Oxygen 35% 35% 21% Test 03/07/19 10:13 Range/Units Blood Gas Puncture Site RT RAD Blood Gas Patient Temperature 98.3 Arterial Blood pH 7.27 *L 7.37-7.43 Arterial Blood Partial Pressure CO2 53 H 35-45 MMHG Arterial Blood Partial Pressure O2 55 L 79-93 MMHG Arterial Blood HCO3 23 23-27 MMOL/L Arterial Blood Total CO2 24.8 21.0-31.0 MMOL/L Arterial Blood Oxygen Saturation 88 L 94-100 % Arterial Blood Base Excess -2.8 L -2.5-2.5 MMOL/L Marino Test YES-POS Blood Gas Ventilator Setting NO Blood Gas Inspired Oxygen 25%, 30LPM Physical Exam-(CHC) Physical Exam Vital Signs VS - Last 72 Hours, by Label 03/06/19 03/06/19 03/06/19 03/06/19 23:30 23:45 23:45 23:45 Temp 99.0 99.0 Pulse 75 91 91 Resp 14 14 B/P (MAP) 107/80 107/80 (89) Pulse Ox 93 100 100 O2 Delivery Nasal Cannula OxyMask Simple Mask O2 Flow Rate 40.00 10.00 10.00 10.00 FiO2 100 03/07/19 03/07/19 03/07/19 03/07/19 02:26 02:48 03:00 03:00 Temp 97.0 97.0 Pulse 83 80 80 Resp 20 16 16 B/P (MAP) 116/87 (97) 101/81 (88) 101/81 Pulse Ox 96 95 95 O2 Delivery NIV Bilevel NIV Bilevel NIV Bilevel O2 Flow Rate 2.00 35.00 35.00 35.00 FiO2 35 03/07/19 03/07/19 03/07/19 03/07/19 03:59 04:00 04:00 04:15 Pulse 69 89 89 Resp 30 B/P (MAP) 128/91 (103) Pulse Ox 97 100 100 O2 Delivery NIV Bilevel NIV Bilevel O2 Flow Rate 35.00 35.00 FiO2 35 34 03/07/19 03/07/19 03/07/19 03/07/19 04:15 04:30 04:45 05:15 Pulse 80 76 90 79 Resp 20 20 21 20 B/P (MAP) 140/86 (104) 123/82 (96) 116/83 (94) 125/72 (89) Pulse Ox 100 99 99 91 O2 Delivery NIV Bilevel NIV Bilevel NIV Bilevel NIV Bilevel O2 Flow Rate 35.00 35.00 35.00 21.00 03/07/19 03/07/19 03/07/19 03/07/19 05:30 06:00 06:15 06:35 Pulse 100 79 Resp 21 11 B/P (MAP) 122/80 (94) 123/75 (91) Pulse Ox 99 97 91 O2 Delivery NIV Bilevel Nasal Cannula Vapotherm Vapotherm O2 Flow Rate 21.00 2.00 25.00 20.00 20.00 FiO2 25 03/07/19 03/07/19 03/07/19 03/07/19 06:55 07:00 07:30 08:00 Pulse 75 83 Resp 11 B/P (MAP) 97/63 (74) Pulse Ox 94 O2 Delivery Vapotherm Vapotherm NIV Bilevel O2 Flow Rate 40.00 40.00 30.00 30.00 FiO2 35 03/07/19 03/07/19 03/07/19 03/07/19 08:00 08:38 08:45 09:00 Pulse 79 79 Resp 12 12 B/P (MAP) 114/80 (91) 111/72 (85) Pulse Ox 97 92 90 O2 Delivery Vapotherm Vapotherm Vapotherm Vapotherm O2 Flow Rate 40.00 40.00 30.00 40.00 30.00 25.00 25.00 FiO2 25 03/07/19 03/07/19 03/07/19 03/07/19 09:00 10:00 10:16 11:00 Pulse 85 79 Resp 14 12 B/P (MAP) 106/73 (84) 119/78 (92) Pulse Ox 91 89 91 94 O2 Delivery Vapotherm Vapotherm Vapotherm Vapotherm O2 Flow Rate 30.00 40.00 30.00 40.00 25.00 25.00 FiO2 100 25 03/07/19 03/07/19 03/07/19 03/07/19 12:00 12:00 12:35 13:00 Pulse 75 68 80 Resp 14 10 B/P (MAP) 140/98 (112) 152/105 (121) Pulse Ox 97 100 O2 Delivery Vapotherm NIV Bilevel Vapotherm O2 Flow Rate 40.00 40.00 25.00 25.00 FiO2 35 Capillary Refill : Less Than 3 Seconds General Appearance: WD/WN, no apparent distress HEENT: PERRL/EOMI Neck: non-tender, full range of motion, supple, normal inspection Respiratory: chest non-tender, lungs clear, normal breath sounds, no resp iratory distress, no accessory muscle use; No crackles, No rhonchi Cardiovascular: regular rate, rhythm, no murmur Gastrointestinal: normal bowel sounds, non tender, soft Extremities: no pedal edema, no calf tenderness, other (left AKA) Neurologic/Psychiatric: technician helper instrument II-XII nml as tested, alert, oriented x 3 Skin: normal color, warm/dry Lymphatic: no adenopathy Short Stay Diagnosis Discharge Diagnosis-Short Stay Admission Diagnosis Acute on Chronic respiratory failure Opiate overdose Acute on Chronic CKD Final Discharge Diagnosis See Above Conclusion Plan See problem list Was the Problem List Reviewed?: Yes Clinical Quality Measures DVT/VTE Risk/Contraindication: Risk Factor Score Per Nursin RFS Level Per Nursing on Admit: 2=Moderate Copy Copies To 1: TALITA YBARRA MD Assessment/Plan Assessment/Plan Admission Status: Observation (1) Respiratory failure, acute and chronic Status: Acute Assessment & Plan: - Patient on her home NC and satting 98%, She is wanting to go home Qualifiers: Qualified Codes: J96.22 - Acute and chronic respiratory failure with hypercapnia (2) Opiate overdose Status: Acute Assessment & Plan: - Denies any intention to harm self, states that she was just trying to treat her pain Qualifiers: Qualified Codes: T40.604A - Poisoning by unspecified narcotics, undetermined, initial encounter (3) Acute on chronic kidney failure Status: Acute Assessment & Plan: - mild elevation, will f.u in clinic Qualifiers: Qualified Codes: N17.9 - Acute kidney failure, unspecified; N18.2 - Chronic kidney disease, stage 2 (mild) TALITA YBARRA MD Mar 07, 2019 14:06
--- NOTE | 2019-03-07 14:10 | Discharge Instructions ---
Discharge [facility] Discharge Medications New, Converted or Re-Newed RX: Other (No new meds) Continued Medications: Albuterol Sulfate (Proair Hfa) 1 Puff Puff 2 PUFF IH Q4H PRN for SHORTNESS OF BREATH, INHALER Budesonide/Formoterol Fumarate (Symbicort 80-4.5 Mcg Inhaler) 10.2 Gm Hfa.aer.ad 2 PUFF IH BID, INHALER Cetirizine HCl (Cetirizine HCl) 10 Mg Tablet 10 MG PO DAILY, TAB Dicyclomine HCl (Dicyclomine HCl) 10 Mg Capsule 20 MG PO TID, CAP TAKES 2 (10MG) CAPSULES Fluticasone Propionate (Fluticasone Propionate) 16 Gm Underwood.susp 2 SPRAYS NS DAILY, EA Folic Acid/Multivit-Minerals (One-A-Day Vitacraves Gummies) 200 Mcg Tab.chew 1 TAB.CHEW PO DAILY, TAB Gabapentin (Gabapentin) 300 Mg Capsule 900 MG PO QID, CAP TAKES 3 (300MG) CAPUSLES Ipratropium/Albuterol Sulfate (Iprat-Albut 0.5-3(2.5) mg/3 ml) 3 Ml Ampul.neb 3 ML IH Q6H PRN for SHORTNESS OF BREATH, #90 EACH Lipase/Protease/Amylase (Pancreaze 16,800 Unit Cap) 1 Each Capsule.dr 1 CAP PO TIDAC, CAP Ranitidine HCl (Ranitidine HCl) 150 Mg Tablet 150 MG PO BID, TAB Discontinued Medications: Azithromycin (Azithromycin) 250 Mg Tablet 250 MG PO DAILY, #5 TAB Nitrofurantoin Monohyd/M-Cryst (Macrobid 100 mg Capsule) 100 Mg Capsule 1 TAB PO BID for 7 Days, #14 CAP Patient Instructions Goal/Follow Up Appt: F.u with Dr Ybarra next week, the clinic will call on saturday with an appt Patient Instructions: - Make sure to take your breathing treatments Activity & Diet Discharge Diet: No Restrictions Activity as Tolerated: Yes Copy Copies To 1: TALITA YBARRA MD, HOLLY R MD Mar 07, 2019 14:10
[2019-03-08] MEDS ORDERED: MAGNESIUM 1 GM/100 ML IVPB 100 ML IV SCH (06:00)
[2019-03-08] MEDS ORDERED: KCL 20 MEQ TAB (K-DUR) PO SCH (06:00)
[2019-03-08] MEDS ORDERED: POTASSIUM CL 10MEQ/50ML IVPB 50 ML IV SCH (06:00)
--- OUTSIDE RECORDS SUMMARY | 2019-03-10 09:27 | XMS REPORT | Clinical Summary ---
Author Author [facility] Organization [facility] Address Unknown Phone Unavailable Care Team Providers Care Head Cashier Name Role Phone Mi Joseph RN Unavailable [...] contact Release of Information in [facility] Information Management department at [phone] for further assistan ce in locating additional records.[facility] Allergies Comments Active Allergy Reactions Severity Noted [...] Ready to Quit: No; Counseling Given: Yes Drinks/Week oz/Week Comments Alcohol Use No Sex Assigned at Date Recorded Not on file Industry Job Start Date Occupation Not on file Not on file Not on file Travel End Travel History Travel Start No recent travel history available. Last Filed Vital Signs Reading Time Taken Comments Vital Sign 145/94 01/25/2015 2:11 PM CDT Blood Pressure 76 01/25/2015 2:11 PM CDT Pulse 36.6 C (97.9 F) 01/04/2015 1:17 PM CDT Temperature - - Respiratory Rate 95% 12/10/2014 6:00 PM CDT Oxygen Saturation - - Inhaled Oxygen Concentration 46.3 kg (102 lb) 01/04/2015 1:17 PM CDT Weight 154.9 cm (5' 1") 01/04/2015 1:17 PM CDT Height 19.27 01/04/2015 1:17 PM CDT Body Mass Index Plan of Treatment Health Maintenance Due Date Last Done Comments PHYSICAL (COMPREHENSIVE) 1975 EXAM HIV SCREENING 1983 DTAP/TDAP VACCINES (1 - 1986 Tdap) CERVICAL CANCER SCREENING 1998 BREAST CANCER SCREENING 2008 COLORECTAL CANCER 2018 SCREENING SHINGLES RECOMBINANT 2018 VACCINE (1 of 2) INFLUENZA VACCINE 05/26/2019 Results Not on filefrom Last 3 Months Advance Directives Patient Rn Integrity Explanation Type Date Recorded Advance 11/11/2014 3:52 AM Directive/DPOA Date Inactivated Comments Code Status Date Activated 12/10/2014 11:44 PM Full Code 12/10/2014 6:01 PM Provider has discussed Code Status No, discussion not w/Patient or Family? necessary based on Dx
--- OUTSIDE RECORDS SUMMARY | 2019-03-10 09:28 | XMS REPORT ---
Author Author OLMAN DSOUZA Organization [facility] Address [address] [place] [address] Care Team Providers Care Hatchery Manager Name Role Phone OLMAN DSOUZA Unavailable PROBLEMS Type Condition ICD9-CM Code CAL81-RK Code Onset Dates Condition Status SNOMED Code Problem Chronic pancreatitis, unspecified pancreatitis type K86.1 Active 343379015 Problem Chronic obstructive pulmonary disease, unspecified COPD type J44.9 Active 35083644 Problem Phantom limb pain G54.7 Active [id number] ALLERGIES No Information ENCOUNTERS Encounter Location Date Diagnosis [place] [id number] [place] [address] Jan, Chronic pancreatitis, unspecified pancreatitis type K86.1 [place] [id number] [place] [address] Jan, Chronic pancreatitis, unspecified pancreatitis type K86.1 ; Chronic obstructive pulmonary disease, unspecified COPD type J44.9 and Phantom limb pain G54.7 [place] [id number] [place] [address] December, [facility] [id number] [place] [address] Nov, Chronic pancreatitis, unspecified pancreatitis type K86.1 [facility] [id number] [place] [address] Aug, [facility] [id number] [place] [address] Mar, [facility] [id number] [place] [address] Feb, Chronic obstructive pulmonary disease, unspecified COPD type J44.9 [place] [address] [address] Jan, [facility] [id number] [place] [address] Jan, [facility] [id number] [place] [address] December, [facility] [id number] [place] [address] Nov, [facility] [id number] [place] [address] Nov, Chronic pancreatitis, unspecified pancreatitis type K86.1 ; Chronic obstructive pulmonary disease, unspecified COPD type J44.9 ; Phantom limb pain G54.7 and Allergic state, initial encounter T78.40XA [facility] [id number] [place] [address] Sep, [facility] [id number] [place] [address] Jul, [facility] [id number] [place] [address] Jul, [facility] [id number] [place] [address] Jul, [facility] [id number] [place] [address] Oct, Nausea R11.0 [facility] [id number] [place] [address] 10 Oct, 2015 Phantom limb pain G54.7 ; Chronic airway obstruction, not elsewhere classified 496 ; Altered mental status 780.97 ; Encounter for long-term (current) use of high-risk medication V58.69 ; Anxiety 300.00 and Allergic rhinitis 477.9 [facility] [id number] [place] [address] Aug, [facility] [id number] [place] [address] Jun, [facility] [id number] [place] [address] Jun, [facility] [id number] [place] [address] Apr, Chronic pain following surgery or procedure 338.28 ; COPD (chronic obstructive pulmonary disease) with acute bronchitis 491.22 ; Allergic rhinitis 477.9 ; History of drug abuse 305.93 ; Encounter for long-term (current) use of high-risk medication V58.69 ; Dyspepsia 536.8 ; Anxiety 300.00 and Noncompliance V15.81 [facility] [id number] [place] [address] Mar, [facility] [id number] [place] [address] Feb, [facility] [id number] [place] [address] Feb, Chronic airway obstruction, not elsewhere classified 496 [facility] [id number] [place] [address] Feb, [facility] [id number] [place] [address] Jan, [facility] [id number] [place] [address] Jan, [facility] [id number] [place] [address] 14 Nov, 2014 [facility] [id number] [place] [address] 13 Nov, 2014 [facility] [id number] [place] [address] Oct, [facility] [id number] [address] Oct, [facility] [address] [place] [address] Oct, 2014 [facility] [place] [facility] [address] [id number] [place] [address] Oct, 2014 [facility] [place] [facility] [address] [id number] [place] [address] Oct, [facility] [place] [facility] [address] [id number] [place] [address] Oct, 2014 [facility] [place] [facility] [address] [id number] [place] [address] Sep, 2014 [facility] [place] [facility] [address] [id number] [place] [address] Sep, 2014 [facility] [place] [facility] [address] [id number] [place] [address] Sep, [facility] [place] [facility] [address] [id number] [place] [address] Sep, [facility] [place] [facility] [address] [id number] [place] [address] Sep, [facility] [place] [facility] [address] [id number] [place] [address] Sep, [facility] [place] [facility] [address] [facility] [place] [id number] [place] [address] Aug, [facility] [place] [facility] [address] [id number] [place] [address] Aug, [facility] [place] [facility] [address] [id number] [place] [address] Aug, [facility] [place] [facility] [address] [id number] [place] [address] Aug, [facility] [place] [facility] [address] [id number] [place] [address] Aug, [facility] [place] [facility] [address] [id number] [place] [address] Aug, [facility] [place] [facility] [address] [id number] [place] [address] Aug, [facility] [place] [facility] [address] [id number] [place] [address] Aug, [facility] [place] [facility] [address] [id number] [place] [address] Aug, [facility] [place] [facility] [address] [id number] [place] [address] Aug, [facility] [place] [facility] [address] [id number] [place] [address] Jul, [facility] [place] [facility] [address] [id number] [place] [address] Jul, [facility] [place] [facility] [address] [id number] [place] [address] Jul, [facility] [place] [facility] [address] [id number] [place] [address] Jul, [facility] [place] [facility] [address] [id number] [place] [address] Jul, [facility] [place] [facility] [address] [id number] [place] [address] Jul, [facility] [place] [facility] [address] [id number] [place] [address] Jul, [facility] [place] [facility] [address] [id number] [place] [address] Jul, [facility] [place] [facility] [address] [id number] [place] [address] Jul, [facility] [place] [facility] [address] [id number] [place] [address] Jun, [facility] [place] [facility] [address] [id number] [place] [address] Jun, [facility] [place] [facility] [address] [id number] [place] [address] Jun, [facility] [place] [facility] [address] [id number] [place] [address] Jun, [facility] [place] [facility] [address] [id number] [place] [address] Jun, [facility] [place] [facility] [address] [id number] [place] [address] Jun, [facility] [place] [facility] [address] [id number] [place] [address] 30 May, 2014 [facility] [place] [facility] [address] [id number] [place] [address] 30 May, 2014 [facility] [place] [facility] [address] [id number] [place] [address] 14 May, 2014 [facility] [place] [facility] [address] [id number] [place] [address] 14 May, 2014 [facility] [place] [facility] [address] [id number] [place] [address] 13 May, 2014 [facility] [place] [facility] [address] [id number] [place] [address] 10 May, 2014 [facility] [place] [facility] [address] [facility] [place] [id number] [place] [address] 10 May, 2014 [facility] [place] [facility] [address] [id number] [place] [address] 26 Apr, 2014 [facility] [place] [facility] [address] [id number] [place] [address] Apr, 2013 [facility] [place] [facility] [address] [id number] [place] [address] Apr, [facility] [place] [facility] [address] [id number] [place] [address] Apr, [facility] [place] [facility] [address] [id number] [place] [address] Feb, [facility] [place] [facility] [address] [id number] [place] [address] Feb, 2013 [facility] [place] [facility] [address] [id number] [place] [address] Feb, [facility] [place] [facility] [address] [id number] [place] [address] Feb, 2013 [facility] [place] [facility] [address] [id number] [place] [address] Feb, 2013 [facility] [place] [facility] [address] [id number] [place] [address] Feb, [facility] [place] [facility] [address] [id number] [place] [address] Feb, [facility] [place] [facility] [address] [id number] [place] [address] Feb, [facility] [place] [facility] [address] [id number] [place] [address] Feb, [facility] [place] [facility] [address] [id number] [place] [address] Feb, [facility] [place] [facility] [address] [id number] [place] [address] Feb, [facility] [place] [facility] [address] [id number] [place] [address] Feb, [facility] [place] [facility] [address] [id number] [place] [address] Feb, [facility] [place] [facility] [address] [id number] [place] [address] Feb, [facility] [place] [facility] [address] [id number] [place] [address] Feb, [facility] [place] [facility] [address] [id number] [place] [address] Feb, [facility] [place] [facility] [address] [id number] [place] [address] Jan, [facility] [place] [facility] [address] [id number] [place] [address] Jan, [facility] [place] [facility] [address] [id number] [place] [address] Jan, [facility] [place] [facility] [address] [id number] [place] [address] Jan, [facility] [place] [facility] [address] [id number] [place] [address] Jan, [facility] [place] [facility] [address] [id number] [place] [address] Jan, [facility] [place] [facility] [address] [id number] [place] [address] Jan, [facility] [place] [facility] [address] [id number] [place] [address] Jan, [facility] [place] [facility] [address] [id number] [place] [address] Jan, [facility] [place] [facility] [address] [id number] [place] [address] Jan, [facility] [place] [facility] [address] [id number] [place] [address] Jan, [facility] [place] [facility] [address] [id number] [address] Jan, [facility] [place] [facility] [address] [id number], [place] [address] Jan, [facility] [place] [facility] [address] [id number] [place] [address] Jan, [facility] [place] [facility] [address] [id number], [place] [address] Jan, [facility] [place] [facility] [address] [id number] [place] [address] Jan, [facility] [place] [facility] [address] [id number] [place] [address] 05 Jan, 2014 [facility] [place] [facility] [address] [id number] [place] [address] Jan, [facility] [place] [facility] [address] [id number] [place] [address] Jan, [facility] [place] [facility] [address] [id number] [place] [address] Jan, [facility] [place] [facility] [address] [id number] [place] [address] Jan, [facility] [place] [facility] [address] [id number] [place] [address] Jan, [facility] [place] [facility] [address] [id number] [place] [address] Jan, [facility] [place] [facility] [address] [id number] [place] [address] Jan, [facility] [place] [facility] [address] [id number] [place] [address] Jan, [facility] [place] [facility] [address] [id number] [place] [address] Jan, [facility] [place] [facility] [address] [id number] [place] [address] Jan, [facility] [place] [facility] [address] [id number] [place] [address] Jan, [facility] [place] [facility] [address] [id number] [place] [address] Jan, [facility] [place] [facility] [address] [id number] [place] [address] Jan, [facility] [place] [facility] [address] [id number] [place] [address] Jan, [facility] [place] [facility] [address] [id number] [place] [address] Jan, [facility] [address] [facility] [place] [id number] [place] [address] Jun, [facility] [address] [facility] [place] [id number] [place] [address] Jan, IMMUNIZATIONS No Known Immunizations SOCIAL HISTORY Never Assessed REASON FOR VISIT PLAN OF CARE VITAL SIGNS Height 61 in 2014-09-22 Temperature 98.3 degrees Fahrenheit 2014-09-22 Heart Rate 88 bpm 2014-09-22 Respiratory Rate 20 2014-09-22 Blood pressure systolic 98 mmHg 2014-09-22 Blood pressure diastolic 64 mmHg 2014-09-22 MEDICATIONS Unknown Medications RESULTS No Results PROCEDURES [...] bilateral carpal tunnel Medical History fired 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 Shah Medical History positive drug screen for meth in hospital ER 01/2014 Medical History 02/11/2014 Ameritox positive for multiple substances not prescribed Surgical History cholecystectomy Surgical History gastric surgery mesh in lower portion of stomach Surgical History kidney surgery D&C Surgical History ipvrkhcnwiam-becog-ekwssqoy uterus Surgical History orthopedic surgery leg amputation by Dr. Hodge at [facility] r/t osteoporosis 2006 Hospitalization History Surgery(s)/Childbirth(s) only Hospitalization History Pancreatitis, gastritis, abd pain-[facility] 08/10/16
--- OUTSIDE RECORDS SUMMARY | 2019-03-10 09:28 | XMS REPORT ---
Author Author OLMAN DSOUZA Organization [facility] Address [address] [place] [address] Care Team Providers Care Agent Producer Name Role Phone OLMAN DSOUZA Unavailable PROBLEMS Type Condition ICD9-CM Code [id number] Code Onset Dates Condition Status SNOMED Code Problem Chronic pancreatitis, unspecified pancreatitis type K86.1 Active 891393329 Problem Chronic obstructive pulmonary disease, unspecified COPD type J44.9 Active 78097282 Problem Phantom limb pain G54.7 Active [id number] ALLERGIES No Information ENCOUNTERS Encounter Location Date Diagnosis [place] [id number] [place] [address] Jan, Chronic pancreatitis, unspecified pancreatitis type K86.1 [place] [id number] [place] [address] Jan, Chronic pancreatitis, unspecified pancreatitis type K86.1 ; Chronic obstructive pulmonary disease, unspecified COPD type J44.9 and Phantom limb pain G54.7 [place] [id number] [place] [address] December, [facility] [id number] [place] [address] Nov, Chronic pancreatitis, unspecified pancreatitis type K86.1 [facility] [id number] [place] [address] Aug, [facility] [id number] [place] [address] Mar, [facility] [id number] [place] [address] Feb, Chronic obstructive pulmonary disease, unspecified COPD type J44.9 [place] [address], [place] [address] Jan, [facility] [id number] [place] [address] Jan, [facility] [id number] [place] [address] December, [facility] [id number] [place] [address] Nov, [facility] [id number] [place] [address] Nov, Chronic pancreatitis, unspecified pancreatitis type K86.1 ; Chronic obstructive pulmonary disease, unspecified COPD type J44.9 ; Phantom limb pain G54.7 and Allergic state, initial encounter T78.40XA [facility] [id number] [place] [address] Sep, [facility] [id number] [place] [address] Jul, [facility] [id number] [place] [address] Jul, [facility] [id number] [place] [address] Jul, [facility] [id number] [place] [address] Oct, Nausea R11.0 [facility] [id number] [place] [address] 10 Oct, 2015 Phantom limb pain G54.7 ; Chronic airway obstruction, not elsewhere classified 496 ; Altered mental status 780.97 ; Encounter for long-term (current) use of high-risk medication V58.69 ; Anxiety 300.00 and Allergic rhinitis 477.9 [facility] [address] [place] [address] Aug, [facility] [id number] [place] [address] Jun, [facility] [id number] [place] [address] Jun, [facility] [id number] [place] [address] Apr, Chronic pain following surgery or procedure 338.28 ; COPD (chronic obstructive pulmonary disease) with acute bronchitis 491.22 ; Allergic rhinitis 477.9 ; History of drug abuse 305.93 ; Encounter for long-term (current) use of high-risk medication V58.69 ; Dyspepsia 536.8 ; Anxiety 300.00 and Noncompliance V15.81 [facility] [id number] [place] [address] Mar, [facility] [id number] [place] [address] Feb, [facility] [id number] [place] [address] Feb, Chronic airway obstruction, not elsewhere classified 496 [facility] [id number] [place] [address] Feb, [facility] [id number] [place] [address] Jan, [facility] [id number] [place] [address] Jan, [facility] [id number] [place] [address] 14 Nov, 2014 [facility] [id number] [place] [address] 13 Nov, 2014 [facility] [id number] [place] [address] Oct, [facility] [id number] [address] Oct, [facility] [address] [place] [address] Oct, 2014 [facility] [place] [facility] [address] [id number] [place] [address] Oct, 2014 [facility] [place] [facility] [address] [id number] [place] [address] Oct, [facility] [place] [facility] [address] [id number] [place] [address] Oct, 2014 [facility] [place] [facility] [address] [id number] [place] [address] Sep, 2014 [facility] [place] [facility] [address] [id number] [place] [address] Sep, 2014 [facility] [place] [facility] [address] [id number] [place] [address] Sep, [facility] [place] [facility] [address] [id number] [place] [address] Sep, [facility] [place] [facility] [address] [id number] [place] [address] Sep, [facility] [place] [facility] [address] [id number] [place] [address] Sep, [facility] [place] [facility] [address] [facility] [id number] [place] [address] Aug, [facility] [place] [facility] [address] [id number] [place] [address] Aug, [facility] [place] [facility] [address] [id number] [place] [address] Aug, [facility] [place] [facility] [address] [id number] [place] [address] Aug, [facility] [place] [facility] [address] [id number] [place] [address] Aug, [facility] [place] [facility] [address] [id number] [place] [address] Aug, [facility] [place] [facility] [address] [id number] [place] [address] Aug, [facility] [place] [facility] [address] [id number] [place] [address] Aug, [facility] [place] [facility] [address] [id number] [place] [address] Aug, [facility] [place] [facility] [address] [id number] [place] [address] Aug, [facility] [place] [facility] [address] [id number] [place] [address] Jul, [facility] [place] [facility] [address] [id number] [place] [address] Jul, [facility] [place] [facility] [address] [id number] [place] [address] Jul, [facility] [place] [facility] [address] [id number] [place] [address] Jul, [facility] [place] [facility] [address] [id number] [place] [address] Jul, [facility] [place] [facility] [address] [id number] [place] [address] Jul, [facility] [place] [facility] [address] [id number] [place] [address] Jul, [facility] [place] [facility] [address] [id number] [place] [address] Jul, [facility] [place] [facility] [address] [id number] [place] [address] Jul, [facility] [place] [facility] [address] [id number] [place] [address] Jun, [facility] [place] [facility] [address] [id number] [place] [address] Jun, [facility] [place] [facility] [address] [id number] [place] [address] Jun, [facility] [place] [facility] [address] [id number] [place] [address] Jun, [facility] [place] [facility] [address] [id number] [place] [address] Jun, [facility] [place] [facility] [address] [id number] [place] [address] Jun, [facility] [place] [facility] [address] [id number] [place] [address] 30 May, 2014 [facility] [place] [facility] [address] [id number] [place] [address] 30 May, 2014 [facility] [place] [facility] [address] [id number] [place] [address] 14 May, 2014 [facility] [place] [facility] [address] [id number] [place] [address] 14 May, 2014 [facility] [place] [facility] [address] [id number] [place] [address] 13 May, 2014 [facility] [place] [facility] [address] [id number] [place] [address] 10 May, 2014 [facility] [place] [facility] [address] [facility] [id number] [place] [address] 10 May, 2014 [facility] [place] [facility] [address] [id number] [place] [address] 26 Apr, 2014 [facility] [place] [facility] [address] [id number] [place] [address] Apr, 2013 [facility] [place] [facility] [address] [id number] [place] [address] Apr, [facility] [place] [facility] [address] [id number] [place] [address] Apr, [facility] [place] [facility] [address] [id number] [place] [address] Feb, [facility] [place] [facility] [address] [id number] [place] [address] Feb, 2013 [facility] [place] [facility] [address] [id number] [place] [address] Feb, [facility] [place] [facility] [address] [id number] [place] [address] Feb, 2013 [facility] [place] [facility] [address] [id number] [place] [address] Feb, 2013 [facility] [place] [facility] [address] [id number] [place] [address] Feb, [facility] [place] [facility] [address] [id number] [place] [address] Feb, [facility] [place] [facility] [address] [id number] [place] [address] Feb, [facility] [place] [facility] [address] [id number] [place] [address] Feb, [facility] [place] [facility] [address] [id number] [place] [address] Feb, [facility] [place] [facility] [address] [id number] [place] [address] Feb, [facility] [place] [facility] [address] [id number] [place] [address] Feb, [facility] [place] [facility] [address] [id number] [place] [address] Feb, [facility] [place] [facility] [address] [id number] [place] [address] Feb, [facility] [place] [facility] [address] [id number] [place] [address] Feb, [facility] [place] [facility] [address] [id number] [place] [address] Feb, [facility] [place] [facility] [address] [id number] [place] [address] Jan, [facility] [place] [facility] [address] [id number] [place] [address] Jan, [facility] [place] [facility] [address] [id number] [place] [address] Jan, [facility] [place] [facility] [address] [id number] [place] [address] Jan, [facility] [place] [facility] [address] [id number] [place] [address] Jan, [facility] [place] [facility] [address] [id number] [place] [address] Jan, [facility] [place] [facility] [address] [id number] [place] [address] Jan, [facility] [place] [facility] [address] [id number] [place] [address] Jan, [facility] [place] [facility] [address] [id number] [place] [address] Jan, [facility] [place] [facility] [address] [id number] [place] [address] Jan, [facility] [place] [facility] [address] [id number] [place] [address] Jan, [facility] [place] [facility] [address] [id number], [place] [address] Jan, [facility] [place] [facility] [address] [id number], [place] [address] Jan, [facility] [place] [facility] [address] [id number] [place] [address] Jan, [facility] [place] [facility] [address] [id number], [place] [address] Jan, [facility] [place] [facility] [address] [id number] [place] [address] Jan, [facility] [place] [facility] [address] [id number] [place] [address] 05 Jan, 2014 [facility] [place] [facility] [address] [id number] [place] [address] Jan, [facility] [place] [facility] [address] [id number] [place] [address] Jan, [facility] [place] [facility] [address] [id number] [place] [address] Jan, [facility] [place] [facility] [address] [id number] [place] [address] Jan, [facility] [place] [facility] [address] [id number] [place] [address] Jan, [facility] [place] [facility] [address] [id number] [place] [address] Jan, [facility] [place] [facility] [address] [id number] [place] [address] Jan, [facility] [place] [facility] [address] [id number] [place] [address] Jan, [facility] [place] [facility] [address] [id number] [place] [address] Jan, [facility] [place] [facility] [address] [id number] [place] [address] Jan, [facility] [place] [facility] [address] [id number] [place] [address] Jan, [facility] [place] [facility] [address] [id number] [place] [address] Jan, [facility] [place] [facility] [address] [id number] [place] [address] Jan, [facility] [place] [facility] [address] [id number] [place] [address] Jan, [facility] [place] [facility] [address] [id number] [place] [address] Jan, [facility] [address] [facility] [id number] [place] [address] Jun, [facility] [address] [facility] [id number], [place] [address] Jan, IMMUNIZATIONS No Known Immunizations SOCIAL HISTORY Never Assessed REASON FOR VISIT PLAN OF CARE VITAL SIGNS MEDICATIONS Unknown [...] Surgical History kidney surgery D&C Surgical History sqgswiojtrdo-ayozx-smfkteee uterus Surgical History orthopedic surgery leg amputation by Dr. Hodge at [facility] r/t osteoporosis 2005 Hospitalization History Surgery(s)/Childbirth(s) only Hospitalization History Pancreatitis, gastritis, abd pain-[facility] 08/10/16
--- OUTSIDE RECORDS SUMMARY | 2019-03-10 09:28 | XMS REPORT ---
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 Role Phone OLMAN DSOUZA Unavailable PROBLEMS Type Condition ICD9-CM Code PWG25-UN Code Onset Dates Condition Status SNOMED Code Problem Chronic pancreatitis, unspecified pancreatitis type K86.1 Active 480304414 Problem Chronic obstructive pulmonary disease, unspecified COPD type J44.9 Active 48921629 Problem Phantom limb pain G54.7 Active [id number] ALLERGIES No Information ENCOUNTERS Encounter Location Date Diagnosis [place] [id number] [place] [phone] Jan, Chronic pancreatitis, unspecified pancreatitis type K86.1 [place] [id number] [place] [address] Jan, Chronic pancreatitis, unspecified pancreatitis type K86.1 ; Chronic obstructive pulmonary disease, unspecified COPD type J44.9 and Phantom limb pain G54.7 [place] [id number] [place] [address] December, [facility] [id number] [place] [phone] Nov, Chronic pancreatitis, unspecified pancreatitis type K86.1 [facility] [id number] [place] [address] Aug, [facility] [id number] [place] [address] Mar, [facility] [id number] [place] [address] Feb, Chronic obstructive pulmonary disease, unspecified COPD type J44.9 [place] [address] [address] Jan, [facility] [id number] [place] [address] Jan, [facility] [id number] [place] [phone] December, [facility] [id number] [place] [phone] Nov, [facility] [id number] [place] [address] Nov, Chronic pancreatitis, unspecified pancreatitis type K86.1 ; Chronic obstructive pulmonary disease, unspecified COPD type J44.9 ; Phantom limb pain G54.7 and Allergic state, initial encounter T78.40XA [facility] [id number] [place] [address] Sep, [facility] [id number] [place] [address] Jul, [facility] [id number] [place] [phone] Jul, [facility] [id number] [place] [address] Jul, [facility] [id number] [place] [address] Oct, Nausea R11.0 [facility] [id number] [place] [phone] 10 Oct, 2015 Phantom limb pain G54.7 ; Chronic airway obstruction, not elsewhere classified 496 ; Altered mental status 780.97 ; Encounter for long-term (current) use of high-risk medication V58.69 ; Anxiety 300.00 and Allergic rhinitis 477.9 [facility] [address] [place] [phone] Aug, [facility] [id number] [place] [phone] Jun, [facility] [id number] [place] [address] Jun, [facility] [id number] [place] [address] Apr, Chronic pain following surgery or procedure 338.28 ; COPD (chronic obstructive pulmonary disease) with acute bronchitis 491.22 ; Allergic rhinitis 477.9 ; History of drug abuse 305.93 ; Encounter for long-term (current) use of high-risk medication V58.69 ; Dyspepsia 536.8 ; Anxiety 300.00 and Noncompliance V15.81 [facility] [id number] [place] [address] Mar, [facility] [id number] [place] [phone] Feb, [facility] [id number] [place] [address] Feb, Chronic airway obstruction, not elsewhere classified 496 [facility] [id number] [place] [phone] Feb, [facility] [id number] [place] [phone] Jan, [facility] [id number] [place] [phone] Jan, [facility] [id number] [place] [phone] 14 Nov, 2014 [facility] [id number] [place] [id number] 13 Nov, 2014 [facility] [id number] [place] [phone] Oct, [facility] [id number] [address] Oct, [facility] [address] [place] [address] Oct, 2014 [facility] [place] [facility] [address] [id number] [place] [address] Oct, 2014 [facility] [place] [facility] [address] [id number] [place] [address] Oct, [facility] [place] [facility] [address] [id number] [place] [address] Oct, 2014 [facility] [place] [facility] [address] [id number] [place] [address] Sep, 2014 [facility] [place] [facility] [address] [id number] [place] [address] Sep, 2014 [facility] [place] [facility] [address] [id number] [place] [address] Sep, [facility] [place] [facility] [address] [id number] [place] [address] Sep, [facility] [place] [facility] [address] [id number] [place] [address] Sep, [facility] [place] [facility] [address] [id number] [place] [address] Sep, [facility] [place] [facility] [address] [facility] [id number] [place] [address] Aug, [facility] [place] [facility] [address] [id number] [place] [address] Aug, [facility] [place] [facility] [address] [id number] [place] [address] Aug, [facility] [place] [facility] [address] [id number] [place] [address] Aug, [facility] [place] [facility] [address] [id number] [place] [address] Aug, [facility] [place] [facility] [address] [id number] [place] [address] Aug, [facility] [place] [facility] [address] [id number] [place] [address] Aug, [facility] [place] [facility] [address] [id number] [place] [address] Aug, [facility] [place] [facility] [address] [id number] [place] [address] Aug, [facility] [place] [facility] [address] [id number] [place] [address] Aug, [facility] [place] [facility] [address] [id number] [place] [address] Jul, [facility] [place] [facility] [address] [id number] [place] [address] Jul, [facility] [place] [facility] [address] [id number] [place] [address] Jul, [facility] [place] [facility] [address] [id number] [place] [address] Jul, [facility] [place] [facility] [address] [id number] [place] [address] Jul, [facility] [place] [facility] [address] [id number] [place] [address] Jul, [facility] [place] [facility] [address] [id number] [place] [address] Jul, [facility] [place] [facility] [address] [id number] [place] [address] Jul, [facility] [place] [facility] [address] [id number] [place] [address] Jul, [facility] [place] [facility] [address] [id number] [place] [address] Jun, [facility] [place] [facility] [address] [id number] [place] [address] Jun, [facility] [place] [facility] [address] [id number] [place] [address] Jun, [facility] [place] [facility] [address] [id number] [place] [address] Jun, [facility] [place] [facility] [address] [id number] [place] [address] Jun, [facility] [place] [facility] [address] [id number] [place] [address] Jun, [facility] [place] [facility] [address] [id number] [place] [address] 30 May, 2014 [facility] [place] [facility] [address] [id number] [place] [address] 30 May, 2014 [facility] [place] [facility] [address] [id number] [place] [address] 14 May, 2014 [facility] [place] [facility] [address] [id number] [place] [address] 14 May, 2014 [facility] [place] [facility] [address] [id number] [place] [address] 13 May, 2014 [facility] [place] [facility] [address] [id number] [place] [address] 10 May, 2014 [facility] [place] [facility] [address] [facility] [id number] [place] [address] 10 May, 2014 [facility] [place] [facility] [address] [id number] [place] [address] 26 Apr, 2014 [facility] [place] [facility] [address] [id number] [place] [address] Apr, 2013 [facility] [place] [facility] [address] [id number] [place] [address] Apr, [facility] [place] [facility] [address] [id number] [place] [address] Apr, [facility] [place] [facility] [address] [id number] [place] [address] Feb, [facility] [place] [facility] [address] [id number] [place] [address] Feb, 2013 [facility] [place] [facility] [address] [id number] [place] [address] Feb, [facility] [place] [facility] [address] [id number] [place] [address] Feb, 2013 [facility] [place] [facility] [address] [id number] [place] [address] Feb, 2013 [facility] [place] [facility] [address] [id number] [place] [address] Feb, [facility] [place] [facility] [address] [id number] [place] [address] Feb, [facility] [place] [facility] [address] [id number] [place] [address] Feb, [facility] [place] [facility] [address] [id number] [place] [address] Feb, [facility] [place] [facility] [address] [id number] [place] [address] Feb, [facility] [place] [facility] [address] [id number] [place] [address] Feb, [facility] [place] [facility] [address] [id number] [place] [address] Feb, [facility] [place] [facility] [address] [id number] [place] [address] Feb, [facility] [place] [facility] [address] [id number] [place] [address] Feb, [facility] [place] [facility] [address] [id number] [place] [address] Feb, [facility] [place] [facility] [address] [id number] [place] [address] Feb, [facility] [place] [facility] [address] [id number] [place] [address] Jan, [facility] [place] [facility] [address] [id number] [place] [address] Jan, [facility] [place] [facility] [address] [id number] [place] [address] Jan, [facility] [place] [facility] [address] [id number] [place] [address] Jan, [facility] [place] [facility] [address] [id number] [place] [address] Jan, [facility] [place] [facility] [address] [id number] [place] [address] Jan, [facility] [place] [facility] [address] [id number] [place] [address] Jan, [facility] [place] [facility] [address] [id number] [place] [address] Jan, [facility] [place] [facility] [address] [id number] [place] [address] Jan, [facility] [place] [facility] [address] [id number] [place] [address] Jan, [facility] [place] [facility] [address] [id number] [place] [address] Jan, [facility] [place] [facility] [address] [id number] [place] [address] Jan, [facility] [place] [facility] [address] [id number] [place] [address] Jan, [facility] [place] [facility] [address] [id number] [place] [address] Jan, [facility] [place] [facility] [address] [id number] [place] [address] Jan, [facility] [place] [facility] [address] [id number] [place] [address] Jan, [facility] [place] [facility] [address] [id number] [place] [address] 05 Jan, 2014 [facility] [place] [facility] [address] [id number] [place] [address] Jan, [facility] [place] [facility] [address] [id number] [place] [address] Jan, [facility] [place] [facility] [address] [id number] [place] [address] Jan, [facility] [place] [facility] [address] [id number] [place] [address] Jan, [facility] [place] [facility] [address] [id number] [place] [address] Jan, [facility] [place] [facility] [address] [id number] [place] [address] Jan, [facility] [place] [facility] [address] [id number] [place] [address] Jan, [facility] [place] [facility] [address] [id number] [place] [address] Jan, [facility] [place] [facility] [address] [id number] [place] [address] Jan, [facility] [place] [facility] [address] [id number] [place] [address] Jan, [facility] [place] [facility] [address] [id number] [place] [address] Jan, [facility] [place] [facility] [address] [id number] [place] [address] Jan, [facility] [place] [facility] [address] [id number] [place] [address] Jan, [facility] [place] [facility] [address] [id number] [place] [address] Jan, [facility] [place] [facility] [address] [id number] [place] [address] Jan, [facility] [address] [facility] [id number] [place] [address] Jun, [facility] [address] [facility] [id number] [place] [address] Jan, IMMUNIZATIONS No Known Immunizations SOCIAL HISTORY [...] Surgical History kidney surgery D&C Surgical History bmubpduagbmu-zuawg-fwmphlkh uterus Surgical History orthopedic surgery leg amputation by Dr. Hodge at [facility] r/t osteoporosis 2005 Hospitalization History Surgery(s)/Childbirth(s) only Hospitalization History Pancreatitis, gastritis, abd pain-[facility] 08/10/16
--- OUTSIDE RECORDS SUMMARY | 2019-03-10 09:29 | XMS REPORT ---
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 Phone OLMAN DSOUZA Unavailable PROBLEMS Type Condition ICD9-CM Code LSP78-ZR Code Onset Dates Condition Status SNOMED Code Problem Chronic pancreatitis, unspecified pancreatitis type K86.1 Active 534673186 Problem Chronic obstructive pulmonary disease, unspecified COPD type J44.9 Active [id number] Problem Phantom limb pain G54.7 Active [id number] ALLERGIES No Information ENCOUNTERS Encounter Location Date Diagnosis [place] [id number] [place] [address] Jan, Chronic pancreatitis, unspecified pancreatitis type K86.1 [place] [id number] [place] [address] Jan, Chronic pancreatitis, unspecified pancreatitis type K86.1 ; Chronic obstructive pulmonary disease, unspecified COPD type J44.9 and Phantom limb pain G54.7 [place] [address] [place] [address] December, [facility] [id number] [place] [address] Nov, Chronic pancreatitis, unspecified pancreatitis type K86.1 [facility] [address] [place] [address] Aug, [facility] [id number] [place] [address] Mar, [facility] [id number] [place] [address] Feb, Chronic obstructive pulmonary disease, unspecified COPD type J44.9 [place] [address] [address] Jan, [facility] [id number] [place] [address] Jan, [facility] [id number] [place] [address] December, [facility] [id number] [place] [address] Nov, [facility] [id number] [place] [address] Nov, Chronic pancreatitis, unspecified pancreatitis type K86.1 ; Chronic obstructive pulmonary disease, unspecified COPD type J44.9 ; Phantom limb pain G54.7 and Allergic state, initial encounter T78.40XA [facility] [id number] [place] [address] Sep, [facility] [id number] [place] [address] Jul, [facility] [id number] [place] [address] Jul, [facility] [id number] [place] [address] Jul, [facility] [id number] [place] [address] Oct, Nausea R11.0 [facility] [id number] [place] [address] 10 Oct, 2015 Phantom limb pain G54.7 ; Chronic airway obstruction, not elsewhere classified 496 ; Altered mental status 780.97 ; Encounter for long-term (current) use of high-risk medication V58.69 ; Anxiety 300.00 and Allergic rhinitis 477.9 [facility] [address] [place] [address] Aug, [facility] [id number] [place] [address] Jun, [facility] [id number] [place] [address] Jun, [facility] [id number] [place] [address] Apr, Chronic pain following surgery or procedure 338.28 ; COPD (chronic obstructive pulmonary disease) with acute bronchitis 491.22 ; Allergic rhinitis 477.9 ; History of drug abuse 305.93 ; Encounter for long-term (current) use of high-risk medication V58.69 ; Dyspepsia 536.8 ; Anxiety 300.00 and Noncompliance V15.81 [facility] [id number] [place] [address] Mar, [facility] [id number] [place] [address] Feb, [facility] [id number] [place] [address] Feb, Chronic airway obstruction, not elsewhere classified 496 [facility] [id number] [place] [address] Feb, [facility] [id number] [place] [address] Jan, [facility] [id number] [place] [address] Jan, [facility] [id number] [place] [address] 14 Nov, 2014 [facility] [id number] [place] [address] 13 Nov, 2014 [facility] [id number] [place] [address] Oct, [facility] [id number] [address] Oct, [facility] [address] [place] [address] Oct, 2014 [facility] [place] [facility] [address] [id number] [place] [address] Oct, 2014 [facility] [place] [facility] [address] [id number] [place] [address] Oct, [facility] [place] [facility] [address] [id number] [place] [address] Oct, 2014 [facility] [place] [facility] [address] [id number] [place] [address] Sep, 2014 [facility] [place] [facility] [address] [id number] [place] [address] Sep, 2014 [facility] [place] [facility] [address] [id number] [place] [address] Sep, [facility] [place] [facility] [address] [id number] [place] [address] Sep, [facility] [place] [facility] [address] [id number] [place] [address] Sep, [facility] [place] [facility] [address] [id number] [place] [address] Sep, [facility] [place] [facility] [address] [facility] [place] [place] [id number] [place] [address] Aug, [facility] [place] [facility] [address] [id number] [place] [address] Aug, [facility] [place] [facility] [address] [id number] [place] [address] Aug, [facility] [place] [facility] [address] [id number] [place] [address] Aug, [facility] [place] [facility] [address] [id number] [place] [address] Aug, [facility] [place] [facility] [address] [id number] [place] [address] Aug, [facility] [place] [facility] [address] [id number] [place] [address] Aug, [facility] [place] [facility] [address] [id number] [place] [address] Aug, [facility] [place] [facility] [address] [id number] [place] [address] Aug, [facility] [place] [facility] [address] [id number] [place] [address] Aug, [facility] [place] [facility] [address] [id number] [place] [address] Jul, [facility] [place] [facility] [address] [id number] [place] [address] Jul, [facility] [place] [facility] [address] [id number] [place] [address] Jul, [facility] [place] [facility] [address] [id number] [place] [address] Jul, [facility] [place] [facility] [address] [id number] [place] [address] Jul, [facility] [place] [facility] [address] [id number] [place] [address] Jul, [facility] [place] [facility] [address] [id number] [place] [address] Jul, [facility] [place] [facility] [address] [id number] [place] [address] Jul, [facility] [place] [facility] [address] [id number] [place] [address] Jul, [facility] [place] [facility] [address] [id number] [place] [address] Jun, [facility] [place] [facility] [address] [id number] [place] [address] Jun, [facility] [place] [facility] [address] [id number] [place] [address] Jun, [facility] [place] [facility] [address] [id number] [place] [address] Jun, [facility] [place] [facility] [address] [id number] [place] [address] Jun, [facility] [place] [facility] [address] [id number] [place] [address] Jun, [facility] [place] [facility] [address] [id number] [place] [address] 30 May, 2014 [facility] [place] [facility] [address] [id number] [place] [address] 30 May, 2014 [facility] [place] [facility] [address] [id number] [place] [address] 14 May, 2014 [facility] [place] [facility] [address] [id number] [place] [address] 14 May, 2014 [facility] [place] [facility] [address] [id number] [place] [address] 13 May, 2014 [facility] [place] [facility] [address] [id number] [place] [address] 10 May, 2014 [facility] [place] [facility] [address] [facility] [place] [id number] [place] [address] 10 May, 2014 [facility] [place] [facility] [address] [id number] [place] [address] 26 Apr, 2014 [facility] [place] [facility] [address] [id number] [place] [address] Apr, 2013 [facility] [place] [facility] [address] [id number] [place] [address] Apr, [facility] [place] [facility] [address] [id number] [place] [address] Apr, [facility] [place] [facility] [address] [id number] [place] [address] Feb, [facility] [place] [facility] [address] [id number] [place] [address] Feb, 2013 [facility] [place] [facility] [address] [id number] [place] [address] Feb, [facility] [place] [facility] [address] [id number] [place] [address] Feb, 2013 [facility] [place] [facility] [address] [id number] [place] [address] Feb, 2013 [facility] [place] [facility] [address] [id number] [place] [address] Feb, [facility] [place] [facility] [address] [id number] [place] [address] Feb, [facility] [place] [facility] [address] [id number] [place] [address] Feb, [facility] [place] [facility] [address] [id number] [place] [address] Feb, [facility] [place] [facility] [address] [id number] [place] [address] Feb, [facility] [place] [facility] [address] [id number] [place] [address] Feb, [facility] [place] [facility] [address] [id number] [place] [address] Feb, [facility] [place] [facility] [address] [id number] [place] [address] Feb, [facility] [place] [facility] [address] [id number] [place] [address] Feb, [facility] [place] [facility] [address] [id number] [place] [address] Feb, [facility] [place] [facility] [address] [id number] [place] [address] Feb, [facility] [place] [facility] [address] [id number] [place] [address] Jan, [facility] [place] [facility] [address] [id number] [place] [address] Jan, [facility] [place] [facility] [address] [id number] [place] [address] Jan, [facility] [place] [facility] [address] [id number] [place] [address] Jan, [facility] [place] [facility] [address] [id number] [place] [address] Jan, [facility] [place] [facility] [address] [id number] [place] [address] Jan, [facility] [place] [facility] [address] [id number] [place] [address] Jan, [facility] [place] [facility] [address] [id number] [place] [address] Jan, [facility] [place] [facility] [address] [id number] [place] [address] Jan, [facility] [place] [facility] [address] [id number] [place] [address] Jan, [facility] [place] [facility] [address] [id number] [place] [address] Jan, [facility] [place] [facility] [id number] [address] Jan, [facility] [place] [facility] [id number] [address] Jan, [facility] [place] [facility] [address] [id number] [place] [address] Jan, [facility] [place] [facility] [address] [id number] [address] Jan, [facility] [place] [facility] [address] [id number] [place] [address] Jan, [facility] [place] [facility] [address] [id number] [place] [address] 05 Jan, 2014 [facility] [place] [facility] [address] [id number] [place] [address] Jan, [facility] [place] [facility] [address] [id number] [place] [address] Jan, [facility] [place] [facility] [address] [id number] [place] [address] Jan, [facility] [place] [facility] [address] [id number] [place] [address] Jan, [facility] [place] [facility] [address] [id number] [place] [address] Jan, [facility] [place] [facility] [address] [id number] [place] [address] Jan, [facility] [place] [facility] [address] [id number] [place] [address] Jan, [facility] [place] [facility] [address] [id number] [place] [address] Jan, [facility] [place] [facility] [address] [id number] [place] [address] Jan, [facility] [place] [facility] [address] [id number] [place] [address] Jan, [facility] [place] [facility] [address] [id number] [place] [address] Jan, [facility] [place] [facility] [address] [id number] [place] [address] Jan, [facility] [place] [facility] [address] [id number] [place] [address] Jan, [facility] [place] [facility] [address] [id number] [place] [address] Jan, [facility] [place] [facility] [address] [id number] [place] [address] Jan, [facility] [address] [facility] [place] [place] [id number] [place] [address] Jun, [facility] [address] [facility] [place] [place] [id number] [address] Jan, IMMUNIZATIONS No Known Immunizations SOCIAL HISTORY [...] bilateral carpal tunnel Medical History 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 Shah Medical History positive drug screen for meth in hospital ER 01/2014 Medical History 02/11/2014 Ameritox positive for multiple substances not prescribed Surgical History cholecystectomy Surgical History gastric surgery mesh in lower portion of stomach Surgical History kidney surgery D&C Surgical History cbryenhryzit-bpucs-ciskshtp uterus Surgical History orthopedic surgery leg amputation by Dr. Hodge at [facility] r/t osteoporosis 2005 Hospitalization History Surgery(s)/Childbirth(s) only Hospitalization History Pancreatitis, gastritis, abd pain-[facility] 08/10/16
== END 2019-03-07 14:10 | disposition home or self-care (01) ==
LOC: EDUNIT# 23:49 → ER 23:51 → ICU 23:52 → UNDOADMOB 03-07 01:40 → ICU 03-07 01:40 → UNDODISOB 03-07 14:37
PROVIDERS: ADMIT Family Medicine; ATTEND Family Medicine
DX: J96.22 Acute and chronic respiratory failure with hypercapnia (principal); T40.2X1A Poisoning by other opioids, accidental (unintentional), initial encounter; N17.9 Acute kidney failure, unspecified; N18.2 Chronic kidney disease, stage 2 (mild); E87.2 Acidosis; F17.210 Nicotine dependence, cigarettes, uncomplicated; F10.20 Alcohol dependence, uncomplicated; F11.10 Opioid abuse, uncomplicated; G89.29 Other chronic pain; J43.9 Emphysema, unspecified; F12.90 Cannabis use, unspecified, uncomplicated; G43.909 Migraine, unspecified, not intractable, without status migrainosus; M81.0 Age-related osteoporosis without current pathological fracture; M19.91 Primary osteoarthritis, unspecified site; F31.9 Bipolar disorder, unspecified; Z96.652 Presence of left artificial knee joint; Z90.79 Acquired absence of other genital organ(s); Z90.710 Acquired absence of both cervix and uterus; Z89.612 Acquired absence of left leg above knee; Z88.1 Allergy status to other antibiotic agents; Z88.0 Allergy status to penicillin; Z88.6 Allergy status to analgesic agent; Z87.19 Personal history of other diseases of the digestive system; Z91.19 Patient's noncompliance with other medical treatment and regimen; Z79.899 Other long term (current) drug therapy; Z87.440 Personal history of urinary (tract) infections
CPT/HCPCS: 36415; 36600; 71045; 80053; 80306; 81000; 82805; 83605; 84484; 85025; 85610; 85730; 87040; 87088; 93005; 94640; 94660; 96361; 96365; 96375; 99291

== ENCOUNTER 2019-08-27 13:36 | Emergency (ER) | payer MEDICAID ==
[~2019-08-27] VITALS: Ht 152 cm; Wt 29.5 kg
[~2019-08-27 13:36] MED LIST changes: -OMEP20CA12 PO; +OMEP20CA13 PO
[2019-08-27] MEDS ORDERED: NS IV 1000 ML 1,000 ML IV SCH (13:44)
[2019-08-27] MEDS ORDERED: ONDANSETRON 4 MG/2 ML (SDV) Z0FRAN IVP ONE (13:45)
--- NOTE | 2019-08-27 14:00 | ED General ---
General Chief Complaint: General Problems/Pain Stated Complaint: WEAKNESS Nursing Triage Note: pt presents to ed via ems from home with complaints of generalized weakness and n/v/d x 4 days. pt reports on 08/24 she went and saw her dr but was told it was stomach bug. Nursing Sepsis Screen: No Definite Risk History of Present Illness Date Seen by Provider: Aug 27, 2019 Time Seen by Provider: 13:40 Initial Comments 49-year-old female reports a 3 to four-day history of nausea, vomiting and diarrhea with minimal intake. She had more weakness today and called EMS. She reports last vomiting approximately 4 hours and one episode of diarrhea today. She was seen by her primary care provider 2 days ago, no treatment initiated. She had Zofran at home, but ran out. Patient has a history of chronic pancreatitis, she takes medication for this daily. Timing/Duration: 3-4 Days Severity: Mild Associated Systoms: Cough (chronic, history of tobaccoism); No Diaphoresis, No Fever/Chills, No Headaches; Loss of Appetite, Malaise, Nausea/Vomiting; No Rash, No Seizure, No Shortness of Air, No Syncope; Weakness Allergies and Home Medications Allergies Coded Allergies: ofloxacin (Verified Allergy, Mild, 02/04/19) Penicillins (Verified Allergy, Unknown, Pt has received Ceftriaxone & Cefepime in the past w/o issue, 02/04/19) amoxicillin (Verified Allergy, Unknown, 02/04/19) clavulanic acid (Verified Allergy, Unknown, 02/04/19) promethazine (Verified Allergy, Unknown, 02/04/19) propoxyphene (Verified Allergy, Unknown, 02/04/19) ketorolac (Verified Adverse Reaction, Unknown, 11/08/17) tramadol (Verified Adverse Reaction, Unknown, 11/08/17) Home Medications Albuterol Sulfate 1 Puff Puff, 2 PUFF IH Q4H PRN for SHORTNESS OF BREATH, (Reported) Budesonide/Formoterol Fumarate 10.2 Gm Hfa.aer.ad, 2 PUFF IH BID, (Reported) Cetirizine HCl 10 Mg Tablet, 10 MG PO DAILY, (Reported) Dicyclomine HCl 10 Mg Capsule, 20 MG PO TID, (Reported) TAKES 2 (10MG) CAPSULES Fluticasone Propionate 16 Gm [place].susp, 2 SPRAYS NS DAILY, (Reported) Folic Acid/Multivit-Minerals 200 Mcg Tab.chew, 1 TAB.CHEW PO DAILY, (Reported) Gabapentin 300 Mg Capsule, 900 MG PO QID, (Reported) TAKES 3 (300MG) CAPUSLES Ipratropium/Albuterol Sulfate 3 Ml Ampul.neb, 3 ML IH Q6H PRN for SHORTNESS OF BREATH Prescribed by: TALITA MESSER on 02/05/19 1021 Lipase/Protease/Amylase 1 Each Capsule.dr, 1 CAP PO TIDAC, (Reported) Ondansetron 4 Mg Tab.rapdis, 4 MG PO Q6H PRN for NAUSEA/VOMITING Prescribed by: BRIAN MCKENNA on 08/27/19 1510 Ranitidine HCl 150 Mg Tablet, 150 MG PO BID, (Reported) Patient Home Medication List Home Medication List Reviewed: Yes Review of Systems Review of Systems Constitutional: see HPI, malaise, weakness, weight loss Respiratory: no symptoms reported, see HPI Cardiovascular: no symptoms reported, see HPI Gastrointestinal: see HPI, diarrhea, loss of appetite, nausea, vomiting Genitourinary: no symptoms reported, see HPI Musculoskeletal: see HPI, other (left above-knee amputation) Skin: no symptoms reported, see HPI All Other Systems Reviewed Negative Unless Noted: Yes Past Rbzamtd-Ylwqmr-Kdzdzs Hx Past Med/Social Hx: Reviewed Nursing Past Med/Soc Hx Patient Social History Alcohol Use: Denies Use Alcohol Beverage of Choice: Beer Recreational Drug Use: No Drug of Choice: RX MEDICATIONS, JUAN CARLOS OXYCODONE/OPIATES & BENZODIAZEPINES, WELL ILLICIT Smoking Status: Current Everyday Smoker Type Used: Cigarettes 2nd Hand Smoke Exposure: No Recent Foreign Travel: No Contact w/Someone Who Travel: No Recent Infectious Disease Expo: No Recent Hopitalizations: No Physical Abuse: No Sexual Abuse: No Mistreated: No Fear: No Immunizations Up To Date Tetanus Booster (TDap): Unknown PED Vaccines UTD: No Date of Pneumonia Vaccine: Jul 26, 2009 Date of Influenza Vaccine: Sep 26, 2013 Seasonal Allergies Seasonal Allergies: No Past Medical History Surgeries: Yes (left leg amputation) Abdominal, Amputation, Eye Surgery, Gallbladder, Hysterectomy, Oophorectomy, Orthopedic Respiratory: Yes (ASPIRATION AND ARDS, wears O2 at home at 2 LPM) Asthma, Pneumonia, Chronic Bronchitis, COPD, Emphysema Currently Using CPAP: No Currently Using BIPAP: No Cardiac: Yes Hypertension, Peripheral Vascular Neurological: Yes (CHRONIC PHANTOM LEG PAIN, TREMORS) Headaches /Migraines, Stroke 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 Disorders: Yes 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 [employer] History: Hysterectomy Sexually Transmitted Disease: No HIV/AIDS: No Genitourinary: Yes (CHRONIC RENAL INSUFFICIENCY) UTI-Chronic Gastrointestinal: Yes (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) Gastroesophageal Reflux, Pancreatitis, Hiatal Hernia, Ulcer, Gall Bladder Disease Musculoskeletal: Yes Amputee, Osteoporosis, Fractures Endocrine: Yes (history of chronic pancreatitis) HEENT: Yes (EDENTULOUS; BILATERAL CATARACT SURGERY) Cataract Loss of Vision: Denies Hearing Impairment: Denies Cancer: No Psychosocial: Yes Anxiety, Suicide Attempts, Depression Integumentary: No Blood Disorders: No Adverse Reaction/Blood Tranf: No Family Medical History Alzheimer's disease 19 FATHER 19 MOTHER Asthma 19 FATHER Completed stroke 19 FATHER Deafness or hearing loss 19 FATHER Dementia 19 FATHER Diabetes mellitus 19 FATHER 19 MOTHER Headache disorder 19 FATHER Hypertension 19 FATHER 19 MOTHER Myocardial infarction 19 FATHER 19 MOTHER Respiratory disorder 19 FATHER No Family History of: Kidney disease No Pertinent Family Hx, Heart Disease, COPD, Diabetes, Hypertension, Stroke Physical Exam Vital Signs Vital Signs - First Documented 08/27/19 13:43 Temp 36.7 Pulse 86 Resp 20 B/P (MAP) 107/92 (97) Pulse Ox 96 Capillary Refill : Less Than 3 Seconds Height, Weight, BMI Height: 5'1.00" Weight: 82lbs. 0.0oz. 37.032309ft; 12.00 BMI Method:Stated General Appearance: No Apparent Distress, WD/WN Eyes: Bilateral Eye Normal Inspection, Bilateral Eye PERRL, Bilateral Eye EOMI HEENT: PERRL/EOMI, TMs Normal, Normal ENT Inspection, Pharynx Normal, Moist Mucous Membranes (pink) Neck: Full Range of Motion, Normal Inspection, Non Tender, Supple Respiratory: Chest Non Tender, Lungs Clear, Normal Breath Sounds Cardiovascular: Regular Rate, Rhythm, No Murmur, Normal Peripheral Pulses Gastrointestinal: Normal Bowel Sounds, Non Tender, Soft Extremity: Normal Capillary Refill, Normal Inspection, Normal Range of Motion, Non Tender, No Pedal Edema (right lower extremity) Neurologic/Psychiatric: Alert, Oriented x3, No Motor/Sensory Deficits, Normal Mood/Affect Skin: Normal Color, Warm/Dry Progress/Results/Core Measures Suspected Sepsis Recent Fever Within 48 Hours: No Infection Criteria Present: None New/Unexplained Altered Menta: No Sepsis Screen: No Definite Risk SIRS Temperature: Pulse: 86 Respiratory Rate: 20 Laboratory Tests 08/27/19 13:53: White Blood Count 5.6 Blood Pressure 107 /92 Mean: 97 Laboratory Tests 08/27/19 13:53: Creatinine 1.72H, Platelet Count 148, Total Bilirubin 0.2 Results/Orders Lab Results Laboratory Tests Test 08/27/19 13:45 08/27/19 13:53 Range/Units Urine Color YELLOW Urine Clarity CLEAR Urine pH 6.0 5-9 Urine Specific [place] 1.025 H 1.016-1.022 Urine Protein 2+ H NEGATIVE Urine Glucose (UA) NEGATIVE NEGATIVE Urine Ketones NEGATIVE NEGATIVE Urine Nitrite NEGATIVE NEGATIVE Urine Bilirubin NEGATIVE NEGATIVE Urine Urobilinogen 0.2 < = 1.0 MG/DL Urine Leukocyte Esterase NEGATIVE NEGATIVE Urine RBC (Auto) TRACE-I NEGATIVE Urine RBC RARE /HPF Urine WBC RARE /HPF Urine Squamous Epithelial Cells 5-10 /HPF Urine Crystals PRESENT H /LPF Urine Amorphous Sediment RARE PATY URATES H /LPF Urine Bacteria TRACE /HPF Urine Casts PRESENT /LPF Urine Granular Casts RARE /LPF Urine Mucus NEGATIVE /LPF Urine Culture Indicated NO Urine Opiates Screen POSITIVE H NEGATIVE Urine Oxycodone Screen POSITIVE H NEGATIVE Urine Methadone Screen NEGATIVE NEGATIVE Urine Propoxyphene Screen NEGATIVE NEGATIVE Urine Barbiturates Screen NEGATIVE NEGATIVE Ur Tricyclic Antidepressants Screen NEGATIVE NEGATIVE Urine Phencyclidine Screen NEGATIVE NEGATIVE Urine Amphetamines Screen NEGATIVE NEGATIVE Urine Methamphetamines Screen NEGATIVE NEGATIVE Urine Benzodiazepines Screen NEGATIVE NEGATIVE Urine Cocaine Screen NEGATIVE NEGATIVE Urine Cannabinoids Screen POSITIVE H NEGATIVE White Blood Count 5.6 4.3-11.0 10^3/uL Red Blood Count 4.41 4.35-5.85 10^6/uL Hemoglobin 13.3 11.5-16.0 G/DL Hematocrit 44 35-52 % Mean Corpuscular Volume 100 H 80-99 FL Mean Corpuscular Hemoglobin 30 25-34 PG Mean Corpuscular Hemoglobin Concent 30 L 32-36 G/DL Red Cell Distribution Width 18.7 H 10.0-14.5 % Platelet Count 148 130-400 10^3/uL Mean Platelet Volume 10.0 7.4-10.4 FL Neutrophils (%) (Auto) 67 42-75 % Lymphocytes (%) (Auto) 16 12-44 % Monocytes (%) (Auto) 16 H 0-12 % Eosinophils (%) (Auto) 1 0-10 % Basophils (%) (Auto) 0 0-10 % Neutrophils # (Auto) 3.8 1.8-7.8 X 10^3 Lymphocytes # (Auto) 0.9 L 1.0-4.0 X 10^3 Monocytes # (Auto) 0.9 0.0-1.0 X 10^3 Eosinophils # (Auto) 0.0 0.0-0.3 10^3/uL Basophils # (Auto) 0.0 0.0-0.1 10^3/uL Sodium Level 136 135-145 MMOL/L Potassium Level 4.1 3.6-5.0 MMOL/L Chloride Level 111 H 98-107 MMOL/L Carbon Dioxide Level 13 L 21-32 MMOL/L Anion Gap 12 5-14 MMOL/L Blood Urea Nitrogen 33 H 7-18 MG/DL Creatinine 1.72 H 0.60-1.30 MG/DL Estimat Glomerular Filtration Rate 31 BUN/Creatinine Ratio 19 Glucose Level 112 H 70-105 MG/DL Calcium Level 8.7 8.5-10.1 MG/DL Corrected Calcium 8.4 L 8.5-10.1 MG/DL Total Bilirubin 0.2 0.1-1.0 MG/DL Aspartate Amino Transf (AST/SGOT) 9 5-34 U/L Alanine Aminotransferase (ALT/SGPT) 10 0-55 U/L Alkaline Phosphatase 74 40-136 U/L Total Protein 7.0 6.4-8.2 GM/DL Albumin 4.4 3.2-4.5 GM/DL Amylase Level 139 H 25-125 U/L Lipase 196 H 8-78 U/L Serum Alcohol < 10 <10 MG/DL My Orders Orders - BRIAN MCKENNA Alcohol (08/27/19 13:44) Amylase (08/27/19 13:44) Cbc With Automated Diff (08/27/19 13:44) Comprehensive Metabolic Panel (08/27/19 13:44) Lipase (08/27/19 13:44) Ua Culture If Indicated (08/27/19 13:44) Ed Iv/Invasive Line Start (08/27/19 13:44) Ns Iv 1000 Ml (Sodium Chloride 0.9%) (08/27/19 13:44) Drug Screen Stat (Urine) (08/27/19 13:44) Ondansetron Injection (Zofran Injectio (08/27/19 13:45) Chest 1 View, Ap/Pa Only (08/27/19 14:01) Oxycodone/Apap 5/325mg Tablet (Percocet (08/27/19 15:00) Medications Given in ED Current Medications Medications Dose Ordered Sig/Ely Route Start Time Stop Time Status Last Admin Dose Admin Ondansetron HCl 4 mg ONCE ONCE IVP 08/27/19 13:45 08/27/19 13:46 DC 08/27/19 14:00 4 MG Oxycodone/ Acetaminophen 1 tab ONCE ONCE PO 08/27/19 15:00 08/27/19 15:01 DC 08/27/19 15:00 1 TAB Vital Signs/I&O 08/27/19 08/27/19 13:43 15:25 Temp 36.7 Pulse 86 87 Resp 20 20 B/P (MAP) 107/92 (97) 119/77 Pulse Ox 96 98 Capillary Refill : Less Than 3 Seconds Blood Pressure Mean: 97 Progress Note : Time: 13:40 Progress Note Patient seen and evaluated, will obtain labs, chest x-ray, normal saline 1 L per IV, and Zofran 4 mg IV for nausea. 1420 no vomiting since admission. Patient taking ice chips. 1510 patient has remained without vomiting since her admission here, labs revi ewed with her. Discharge instructions and return precautions reviewed. Diagnostic Imaging Diagonstic Imaging: Xray Comments NAME: SOPHIE CORNELIUS MED REC#: [id number] PT STATUS: REG ER : 1970 PHYSICIAN: BRIAN MCKENNA ADMIT DATE: 08/27/19/ER Draft Date of Exam:08/27/19 CHEST 1 VIEW, AP/PA ONLY INDICATION: Weakness and shortness of breath. TIME OF EXAM: 02:15 p.m. COMPARISON: Correlation is made with prior chest from 03/07/2019. FINDINGS: The heart size is stable. The lungs appear to be clear. No infiltrates are detected. The pulmonary vascularity is unremarkable. No effusion or pneumothorax is seen. IMPRESSION: No acute cardiopulmonary process is detected. Dictated on workstation # [id number] Dict: 08/27/19 1422 Trans: 08/27/19 1424 [facility] [id number] Interpreted by: CARMEN SOTELO MD Electronically signed by: Reviewed: Reviewed by Me Departure Impression Primary Impression: Nausea vomiting and diarrhea Additional Impression: Pancreatitis Qualified Codes: K86.1 - Other chronic pancreatitis Disposition: HOME, SELF-CARE Condition: Improved Departure-Patient Inst. Decision time for Depature: 15:10 Ref[place]: [facility] [place] Primary Care Physician Patient Instructions: Chronic Pancreatitis (DC) Add. Discharge Instructions: Clear liquid diet for the next 6-8 hours and then bland diet as tolerated. Follow-up with your primary care provider if symptoms are not improving or worsen. Continue to take your pancreatic medicine Use the Zofran every 6-8 hours as needed for nausea or vomiting. Return to the emergency department for new, urgent health care needs. All discharge instructions reviewed with patient and/or family. Voiced understanding. Scripts Ondansetron (Ondansetron Odt) 4 Mg Tab.rapdis 4 MG PO Q6H PRN for NAUSEA/VOMITING, #8 TAB 0 Refills Prov: BRIAN MCKENNA 08/27/19 BRIAN MCKENNA Aug 27, 2019 14:00
[2019-08-27 14:02] LABS: BASOPHILS % (AUTO) 0 % (0-10); EOSINOPHILS % (AUTO) 1 % (0-10); HEMATOCRIT 44 % (35-52); HEMOGLOBIN 13.3 G/DL (11.5-16.0); LYMPHOCYTES # (AUTO) 0.9 X 10^3 (1.0-4.0); LYMPHOCYTES % (AUTO) 16 % (12-44); MEAN CORPUSCULAR HEMOGLOBIN 30 PG (25-34); MEAN CORPUSCULAR HGB CONC 30 G/DL (32-36); MEAN CORPUSCULAR VOLUME 100 FL (80-99); MONOCYTES # (AUTO) 0.9 X 10^3 (0.0-1.0); MONOCYTES % (AUTO) 16 % (0-12); NEUTROPHILS # (AUTO) 3.8 X 10^3 (1.8-7.8); NEUTROPHILS % (AUTO) 67 % (42-75); PLATELET COUNT 148 10^3/uL (130-400); RED CELL DISTRIBUTION WIDTH 18.7 % (10.0-14.5); WHITE BLOOD COUNT 5.6 10^3/uL (4.3-11.0)
[2019-08-27 14:03] LABS: BILIRUBIN,URINE NEGATIVE (NEGATIVE); CLARITY,URINE CLEAR; COLOR,URINE YELLOW; GLUCOSE, URINE (UA) NEGATIVE (NEGATIVE); KETONES,URINE NEGATIVE (NEGATIVE); LEUKOCYTE ESTERASE ,URINE NEGATIVE (NEGATIVE); NITRITE,URINE NEGATIVE (NEGATIVE); PROTEIN,URINE 2+ (NEGATIVE)
[2019-08-27 14:21] LABS: BACTERIA,URINE TRACE /HPF; RBC,URINE RARE /HPF; WBC,URINE RARE /HPF
[2019-08-27 14:22] LABS: AMORPHOUS SEDIMENT,UR RARE AMOR URATES /LPF; GRANULAR CASTS,URINE RARE /LPF
[2019-08-27 14:23] LABS: ALANINE AMINOTRANSFERASE 10 U/L (0-55); ALBUMIN 4.4 GM/DL (3.2-4.5); ALKALINE PHOSPHATASE 74 U/L (40-136); AMYLASE 139 U/L (25-125); BILIRUBIN,TOTAL 0.2 MG/DL (0.1-1.0); BUN/CREATININE RATIO 19; CALCIUM 8.7 MG/DL (8.5-10.1); CARBON DIOXIDE 13 MMOL/L (21-32); CHLORIDE 111 MMOL/L (98-107); CREATININE SERUM 1.72 MG/DL (0.60-1.30); GFR ESTIMATED 31; GLUCOSE 112 MG/DL (70-105); LIPASE 196 U/L (8-78); POTASSIUM 4.1 MMOL/L (3.6-5.0); SODIUM 136 MMOL/L (135-145)
[2019-08-27 14:25] LABS: AMPHETAMINE SCREEN, URINE NEGATIVE (NEGATIVE); BARBITURATE SCREEN URINE NEGATIVE (NEGATIVE); BENZODIAZEPINES SCREEN URINE NEGATIVE (NEGATIVE); CANNABINOID SCREEN, URINE POSITIVE (NEGATIVE); COCAINE SCREEN URINE NEGATIVE (NEGATIVE); METHADONE STAT NEGATIVE (NEGATIVE); METHAMPHETAMINE SCREEN URINE S NEGATIVE (NEGATIVE); OPIATE SCREEN URINE POSITIVE (NEGATIVE); OXYCODONE STAT POSITIVE (NEGATIVE); PROPOXYPHENE STAT NEGATIVE (NEGATIVE); TRICYCLIC ANTIDEPRESSANTS SCRE NEGATIVE (NEGATIVE)
--- NOTE | 2019-08-27 14:25 | Diagnostic Imaging Report ---
INDICATION: Weakness and shortness of breath. TIME OF EXAM: 02:15 p.m. COMPARISON: Correlation is made with prior chest from 03/07/2019. FINDINGS: The heart size is stable. The lungs appear to be clear. No infiltrates are detected. The pulmonary vascularity is unremarkable. No effusion or pneumothorax is seen. IMPRESSION: No acute cardiopulmonary process is detected. Dictated by: Dictated on workstation # [id number]
[2019-08-27] MEDS ORDERED: oxyCODONE/APAP 5/325MG (PERCOCET 5) TABLET PO ONE (15:00)
[2019-08-27] MEDS ORDERED: ONDA4TAB11 PO (15:10)
[2019-08-27 15:25] VITALS: BP 119/77
[2019-09-02] MEDS ORDERED: GABA800T10 PO (10:40)
[2019-09-02] MEDS ORDERED: MULT-1029 PO (10:40)
[2019-09-02] MEDS ORDERED: LIDO700A45 TOP (10:40)
[2019-09-02] MEDS ORDERED: CYCL10TA9 PO (10:40)
[2019-09-02] MEDS ORDERED: PRD50T PO (11:45)
[2019-09-02] MEDS ORDERED: CEFD300C3 PO (11:45)
== END 2019-08-27 15:25 | disposition home or self-care (01) ==
LOC: EDUNIT# 13:36 → ER 13:37
DX: K85.90 Acute pancreatitis without necrosis or infection, unspecified (principal); R19.7 Diarrhea, unspecified; J43.9 Emphysema, unspecified; I10 Essential (primary) hypertension; G43.909 Migraine, unspecified, not intractable, without status migrainosus; F41.9 Anxiety disorder, unspecified; F32.9 Major depressive disorder, single episode, unspecified; K21.9 Gastro-esophageal reflux disease without esophagitis; F17.210 Nicotine dependence, cigarettes, uncomplicated; Z86.73 Personal history of transient ischemic attack (TIA), and cerebral infarction without residual deficits; Z87.440 Personal history of urinary (tract) infections; Z87.19 Personal history of other diseases of the digestive system; Z90.710 Acquired absence of both cervix and uterus; Z99.81 Dependence on supplemental oxygen; Z88.1 Allergy status to other antibiotic agents; Z88.0 Allergy status to penicillin; Z88.6 Allergy status to analgesic agent; Z88.5 Allergy status to narcotic agent; Z88.8 Allergy status to other drugs, medicaments and biological substances; Z79.51 Long term (current) use of inhaled steroids; Z82.49 Family history of ischemic heart disease and other diseases of the circulatory system
CPT/HCPCS: 36415; 71045; 80053; 80306; 80320; 81000; 82150; 83690; 85025; 96361; 96374

== ENCOUNTER 2019-09-09 16:38 | Inpatient (IN) | payer MEDICAID ==
[~2019-09-09] VITALS: Ht 154 cm; Wt 30.0 kg
[2019-09-09] VITALS (11 sets, daily range): BP systolic 112–164; BP diastolic 85–112
[~2019-09-09 16:38] MED LIST changes: +CYCL10TA9 PO; +GABA800T10 PO; +LIDO700A45 TOP; +MULT-1029 PO; +OMEP-280 PO; -OMEP20CA13 PO; +PRD50T PO
[2019-09-09] MEDS ORDERED: fentaNYL INJECTION 100 MCG/2 ML AMP IVP ONE ×2 (16:45→18:15)
--- NOTE | 2019-09-09 16:45 | ED GI ---
General Chief Complaint: Abdominal/GI Problems Stated Complaint: ABD PAIN Source of Information: Patient Exam Limitations: No Limitations History of Present Illness Date Seen by Provider: Sep 09, 2019 Time Seen by Provider: 16:43 Initial Comments To ER with diffuse abdominal pain and abdominal distention for 2 days. She saw [facility] yesterday was given simethicone, denies improvement. She has nausea without vomiting. She has increasing abdominal distention. She has had a small amount of flatus and bowel movement this morning. Timing/Duration: 1-2 Days Severity/Quality: Moderate Radiation: No Radiation Activities at Onset: None Associated Symptoms: Nausea/Vomiting Allergies and Home Medications Allergies Coded Allergies: ofloxacin (Verified Allergy, Mild, 02/04/19) Penicillins (Verified Allergy, Unknown, Pt has received Ceftriaxone & Cefepime in the past w/o issue, 02/04/19) amoxicillin (Verified Allergy, Unknown, 02/04/19) clavulanic acid (Verified Allergy, Unknown, 02/04/19) promethazine (Verified Allergy, Unknown, 02/04/19) propoxyphene (Verified Allergy, Unknown, 02/04/19) ketorolac (Verified Adverse Reaction, Unknown, 11/08/17) tramadol (Verified Adverse Reaction, Unknown, 11/08/17) Home Medications Albuterol Sulfate 1 Puff Puff, 2 PUFF IH Q4H PRN for SHORTNESS OF BREATH, (Reported) Budesonide/Formoterol Fumarate 10.2 Gm Hfa.aer.ad, 2 PUFF IH BID, (Reported) Cefdinir 300 Mg Capsule, 300 MG PO BID Prescribed by: LASHAY CONDE on 09/02/19 1145 Cetirizine HCl 10 Mg Tablet, 10 MG PO DAILY, (Reported) LAST FILLED #30 07-21-19 Cyclobenzaprine HCl 10 Mg Tablet, 10 MG PO HS, (Reported) Dicyclomine HCl 10 Mg Capsule, 20 MG PO TID PRN for CRAMPS, (Reported) TAKES 2 (10MG) CAPSULES Fluticasone Propionate 16 Gm [place].susp, 2 SPRAYS NS DAILY, (Reported) Gabapentin 800 Mg Tablet, 800 MG PO QID, (Reported) Lidocaine 1 Each Adh..patch, TOP DAILY, (Reported) Lipase/Protease/Amylase 1 Each Capsule.dr, 1 CAP PO TIDAC, (Reported) LAST FILLED #100 03-08-19 Multivit-Min/FA/Lycopene/Lut 1 Each Tablet, 1 TAB PO DAILY, (Reported) Prednisone 50 Mg Tab, 50 MG PO DAILY Prescribed by: LASHAY CONDE on 09/02/19 1145 Ranitidine HCl 150 Mg Tablet, 150 MG PO BID, (Reported) LAST FILLED #60 07-21-19 Patient Home Medication List Home Medication List Reviewed: Yes Review of Systems Review of Systems Constitutional: see HPI EENTM: No Symptoms Reported Respiratory: No Symptoms Reported Cardiovascular: No Symptoms Reported Gastrointestinal: See HPI, Abdominal Pain, Nausea Genitourinary: No Symptoms Reported Musculoskeletal: no symptoms reported Skin: no symptoms reported Psychiatric/Neurological: No Symptoms Reported Endocrine: No Symptoms Reported Past Igipzdb-Twlfdy-Beavue Hx Patient Social History Alcohol Beverage of Choice: Beer Drug of Choice: Smokes THC at times for pain Type Used: Cigarettes 2nd Hand Smoke Exposure: No Recent Foreign Travel: No Contact w/Someone Who Travel: No Recent Hopitalizations: No Immunizations Up To Date Tetanus Booster (TDap): Unknown PED Vaccines UTD: No Date of Pneumonia Vaccine: Jul 26, 2009 Date of Influenza Vaccine: Sep 26, 2013 Seasonal Allergies Seasonal Allergies: No Past Medical History Surgeries: Yes (left leg amputation) Abdominal, Amputation, Eye Surgery, Gallbladder, Hysterectomy, Oophorectomy, Orthopedic Respiratory: Yes (ASPIRATION AND ARDS, wears O2 at home at 2 LPM) Asthma, Pneumonia, Chronic Bronchitis, COPD, Emphysema Currently Using CPAP: No Currently Using BIPAP: No Cardiac: Yes Hypertension, Peripheral Vascular Neurological: Yes (CHRONIC PHANTOM LEG PAIN, TREMORS) Headaches /Migraines, Stroke 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 Disorders: Yes 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 [employer]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 Sexually Transmitted Disease: No HIV/AIDS: No Genitourinary: Yes (CHRONIC RENAL INSUFFICIENCY) UTI-Chronic Gastrointestinal: Yes (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) Gastroesophageal Reflux, Pancreatitis, Hiatal Hernia, Ulcer, Gall Bladder Disease Musculoskeletal: Yes Amputee, Osteoporosis, Fractures Endocrine: Yes (history of chronic pancreatitis) HEENT: Yes (EDENTULOUS; BILATERAL CATARACT SURGERY) Cataract Loss of Vision: Denies Hearing Impairment: Denies Cancer: No Psychosocial: Yes Anxiety, Suicide Attempts, Depression Integumentary: No Blood Disorders: No Adverse Reaction/Blood Tranf: No Family Medical History Alzheimer's disease 19 FATHER 19 MOTHER Asthma 19 FATHER Completed stroke 19 FATHER Deafness or hearing loss 19 FATHER Dementia 19 FATHER Diabetes mellitus 19 FATHER 19 MOTHER Headache disorder 19 FATHER Hypertension 19 FATHER 19 MOTHER Myocardial infarction 19 FATHER 19 MOTHER Respiratory disorder 19 FATHER No Family History of: Kidney disease No Pertinent Family Hx, Heart Disease, COPD, Diabetes, Hypertension, Stroke Physical Exam Vital Signs Vital Signs - First Documented 09/09/19 16:38 Temp 36.2 Pulse 72 Resp 18 B/P (MAP) 133/99 (110) Pulse Ox 94 O2 Delivery Room Air Capillary Refill : Height/Weight/BMI Height: 5'1.00" Weight: 82lbs. 0.0oz. 37.089209in; 15.00 BMI Method:Stated General Appearance: WD/WN, no apparent distress, thin ( chronically ill appears older than stated age) HEENT: PERRL/EOMI, normal ENT inspection Respiratory: no respiratory distress, no accessory muscle use Gastrointestinal: soft, abnormal bowel sounds (hypoactive), distended Extremities: normal range of motion, non-tender Neurologic/Psychiatric: alert, normal mood/affect, oriented x 3 Skin: normal color, warm/dry Progress/Results/Core Measures Results/Orders Lab Results Laboratory Tests Test 09/09/19 15:50 09/09/19 16:40 09/09/19 16:55 Range/Units Sodium Level 136 135-145 MMOL/L Potassium Level 5.9 H 3.6-5.0 MMOL/L Chloride Level 101 98-107 MMOL/L Carbon Dioxide Level 24 21-32 MMOL/L Anion Gap 11 5-14 MMOL/L Blood Urea Nitrogen 35 H 7-18 MG/DL Creatinine 1.63 H 0.60-1.30 MG/DL Estimat Glomerular Filtration Rate 33 BUN/Creatinine Ratio 21 Glucose Level 122 H 70-105 MG/DL Calcium Level 8.9 8.5-10.1 MG/DL Corrected Calcium 9.1 8.5-10.1 MG/DL Total Bilirubin 0.2 0.1-1.0 MG/DL Aspartate Amino Transf (AST/SGOT) 10 5-34 U/L Alanine Aminotransferase (ALT/SGPT) 18 0-55 U/L Alkaline Phosphatase 59 40-136 U/L Total Protein 6.2 L 6.4-8.2 GM/DL Albumin 3.8 3.2-4.5 GM/DL White Blood Count 8.8 4.3-11.0 10^3/uL Red Blood Count 4.13 L 4.35-5.85 10^6/uL Hemoglobin 12.4 11.5-16.0 G/DL Hematocrit 41 35-52 % Mean Corpuscular Volume 99 80-99 FL Mean Corpuscular Hemoglobin 30 25-34 PG Mean Corpuscular Hemoglobin Concent 30 L 32-36 G/DL Red Cell Distribution Width 19.1 H 10.0-14.5 % Platelet Count 485 H 130-400 10^3/uL Mean Platelet Volume 10.4 7.4-10.4 FL Neutrophils (%) (Auto) 89 H 42-75 % Lymphocytes (%) (Auto) 5 L 12-44 % Monocytes (%) (Auto) 6 0-12 % Eosinophils (%) (Auto) 0 0-10 % Basophils (%) (Auto) 0 0-10 % Neutrophils # (Auto) 7.8 1.8-7.8 X 10^3 Lymphocytes # (Auto) 0.4 L 1.0-4.0 X 10^3 Monocytes # (Auto) 0.6 0.0-1.0 X 10^3 Eosinophils # (Auto) 0.0 0.0-0.3 10^3/uL Basophils # (Auto) 0.0 0.0-0.1 10^3/uL Neutrophils % (Manual) 86 % Lymphocytes % (Manual) 6 % Monocytes % (Manual) 5 % Band Neutrophils 3 % Polychromasia SLIGHT Hypochromasia SLIGHT Anisocytosis MODERATE B-Type Natriuretic Peptide 43.1 <100.0 PG/ML Lipase 54 8-78 U/L Urine Color YELLOW Urine Clarity CLEAR Urine pH 6.5 5-9 Urine Specific [place] 1.015 L 1.016-1.022 Urine Protein NEGATIVE NEGATIVE Urine Glucose (UA) NEGATIVE NEGATIVE Urine Ketones NEGATIVE NEGATIVE Urine Nitrite NEGATIVE NEGATIVE Urine Bilirubin NEGATIVE NEGATIVE Urine Urobilinogen 0.2 < = 1.0 MG/DL Urine Leukocyte Esterase NEGATIVE NEGATIVE Urine RBC (Auto) NEGATIVE NEGATIVE Urine RBC NONE /HPF Urine WBC RARE /HPF Urine Squamous Epithelial Cells 0-2 /HPF Urine Crystals PRESENT H /LPF Urine Amorphous Sediment FEW PATY URATES H /LPF Urine Bacteria TRACE /HPF Urine Casts NONE /LPF Urine Mucus NEGATIVE /LPF Urine Culture Indicated NO Urine Opiates Screen POSITIVE H NEGATIVE Urine Oxycodone Screen NEGATIVE NEGATIVE Urine Methadone Screen NEGATIVE NEGATIVE Urine Propoxyphene Screen NEGATIVE NEGATIVE Urine Barbiturates Screen NEGATIVE NEGATIVE Ur Tricyclic Antidepressants Screen NEGATIVE NEGATIVE Urine Phencyclidine Screen NEGATIVE NEGATIVE Urine Amphetamines Screen NEGATIVE NEGATIVE Urine Methamphetamines Screen NEGATIVE NEGATIVE Urine Benzodiazepines Screen NEGATIVE NEGATIVE Urine Cocaine Screen NEGATIVE NEGATIVE Urine Cannabinoids Screen POSITIVE H NEGATIVE My Orders Orders - JUAN C FRANCISCO [employer] LO[employer]IC[employer] Cbc With Automated Diff (09/09/19 16:42) Lipase (09/09/19 16:42) Ua Culture If Indicated (09/09/19 16:42) Drug Screen Stat (Urine) (09/09/19 16:42) Ed Iv/Invasive Line Start (09/09/19 16:42) Chest 1 View, Ap/Pa Only (09/09/19 16:42) Fentanyl Injection (Sublimaze Injection (09/09/19 16:45) Iohexol Injection (Omnipaque 350 Mg/Ml 1 (09/09/19 17:00) Received Contrast (Hold Metformin- Contr (09/09/19 17:00) Ns (Ivpb) (Sodium Chloride 0.9% Ivpb Bag (09/09/19 17:00) Diatrizoate Meglum/Sodium 37% (Gastrogra (09/09/19 17:00) Manual Differential (09/09/19 16:40) Comprehensive Metabolic Panel (09/09/19 17:02) Ns Iv 1000 Ml (Sodium Chloride 0.9%) (09/09/19 17:30) BNP (09/09/19 17:29) Furosemide Injection (Lasix Injection) (09/09/19 17:30) D50w (Emergency) Syringe (Dextrose 50% 5 (09/09/19 17:45) Insulin (Regular) Human (Humulin R (Per (09/09/19 17:45) Fentanyl Injection (Sublimaze Injection (09/09/19 18:15) Ct Abdomen/Pelvis Wo (09/09/19 16:42) I-Stat Bedside Testing (09/09/19 18:38) Blood Culture (09/09/19 19:30) Lactic Acid Analyzer (09/09/19 19:30) Ciprofloxacin Iv 400mg/200ml (Cipro Iv S (09/09/19 19:30) Metronidazole 500mg/100ml Ivpb (Flagyl 5 (09/09/19 19:30) Medications Given in ED Current Medications Medications Dose Ordered Sig/Ely Route Start Time Stop Time Status Last Admin Dose Admin Dextrose 25 ml ONCE ONCE IV 09/09/19 17:45 09/09/19 17:46 DC 09/09/19 17:48 25 ML Diatrizoate Meglum/ Diatrizoate Sod 120 ml ONCE ONCE PO 09/09/19 17:00 09/09/19 17:01 DC 09/09/19 17:27 25 ML Fentanyl Citrate 50 mcg ONCE ONCE IVP 09/09/19 16:45 09/09/19 16:46 DC 09/09/19 16:56 50 MCG Fentanyl Citrate 50 mcg ONCE ONCE IVP 09/09/19 18:15 09/09/19 18:16 DC 09/09/19 18:18 50 MCG Furosemide 40 mg ONCE ONCE IVP 09/09/19 17:30 09/09/19 17:31 DC 09/09/19 17:48 40 MG Vital Signs/I&O 09/09/19 16:38 Temp 36.2 Pulse 72 Resp 18 B/P (MAP) 133/99 (110) Pulse Ox 94 O2 Delivery Room Air Diagnostic Imaging Diagonstic Imaging: Xray, CT Comments NAME: SOPHIE CORNELIUS MED REC#: [id number] PT STATUS: REG ER : 1970 PHYSICIAN: JUAN C FRANCISCO APRN ADMIT DATE: 09/09/19/ER Draft Date of Exam:09/09/19 CHEST 1 VIEW, AP/PA ONLY INDICATION: Abdominal problems. GI distress. COMPARISON: 09/01/2019. EXAMINATION: Single frontal radiographic view of the chest was obtained. FINDINGS: Mild enlargement of the cardiac silhouette. Pulmonary vasculature is within normal limits. Lungs are hyperinflated with flattened of the hemidiaphragms, but otherwise clear. There is no focal consolidation, large effusion or pneumothorax. Osseous structures show no gross acute abnormality. IMPRESSION: 1. Mild enlargement of the cardiac silhouette, which may be exaggerated by portable technique. There is otherwise no evidence of failure or focal infiltrate. 2. Background COPD changes. Dictated on workstation # [id number] Dict: 09/09/19 170 Trans: 09/09/19 1714 [facility] [id number] Interpreted by: KAJAL SUAREZ MD Electronically signed by: Departure Communication (Admissions) Time/Spoke to Admitting Phy: 19:[address] Dr[address] Montgomery and Dr. Jenkins have seen the patient in regards to the perforated viscus evidence by free air on CT. Plan to take to the operating room for a quarter laparotomy tonight. I rechecked her basic metabolic panel at this time after receiving 1 L IV fluids 40 mg IV Lasix, 5 units regular insulin IV and 25 g of dextrose IV. At this time her potassium is 5.2, sodium 133, glucose 73, BUN 39 creatinine 1.5. She has a listed allergy to penicillin so I'll use Cipro and Flagyl for antibiotic coverage. Hydrate overnight, admitted to Dr. Watson consult Dr. Palacios Impression Primary Impression: Perforated abdominal viscus Additional Impressions: Acute kidney injury Hyperkalemia Disposition: ADMITTED INPATIENT Condition: Stable Admissions Decision to Admit Reason: Admit from ER (General) Decision to Admit/Date: Sep 09, 2019 Time/Decision to Admit Time: 18:57 Departure-Patient Inst. Referrals: [facility] (PCP/Family) Primary Care Physician JUAN C FRANCISCO APRN Sep 09, 2019 16:45
[2019-09-09 16:56] LABS: BASOPHILS % (AUTO) 0 % (0-10); EOSINOPHILS % (AUTO) 0 % (0-10); HEMATOCRIT 41 % (35-52); HEMOGLOBIN 12.4 G/DL (11.5-16.0); LYMPHOCYTES # (AUTO) 0.4 X 10^3 (1.0-4.0); LYMPHOCYTES % (AUTO) 5 % (12-44); MEAN CORPUSCULAR HEMOGLOBIN 30 PG (25-34); MEAN CORPUSCULAR HGB CONC 30 G/DL (32-36); MEAN CORPUSCULAR VOLUME 99 FL (80-99); MEAN PLATELET VOLUME 10.4 FL (7.4-10.4); MONOCYTES # (AUTO) 0.6 X 10^3 (0.0-1.0); MONOCYTES % (AUTO) 6 % (0-12); NEUTROPHILS # (AUTO) 7.8 X 10^3 (1.8-7.8); NEUTROPHILS % (AUTO) 89 % (42-75); PLATELET COUNT 485 10^3/uL (130-400); RED CELL DISTRIBUTION WIDTH 19.1 % (10.0-14.5); WHITE BLOOD COUNT 8.8 10^3/uL (4.3-11.0)
[2019-09-09] MEDS ORDERED: DIATRIZOATE MEGLUM/SODIUM 37% 120 ML (GASTROGRAFIN) PO ONE (17:00)
[2019-09-09] MEDS ORDERED: NS 100 ML (IVPB) BAG IV ONE (17:00)
[2019-09-09] MEDS ORDERED: IOHEXOL 350 MG/ML 100 ML (OMNIPAQUE 350) VIAL IV ONE (17:00)
[2019-09-09] MEDS ORDERED: HOLD METFORMIN - RECEIVED CONTRAST 20 ML VIAL IV SCH (17:00)
[2019-09-09 17:08] LABS: BILIRUBIN,URINE NEGATIVE (NEGATIVE); CLARITY,URINE CLEAR; COLOR,URINE YELLOW; GLUCOSE, URINE (UA) NEGATIVE (NEGATIVE); KETONES,URINE NEGATIVE (NEGATIVE); LEUKOCYTE ESTERASE ,URINE NEGATIVE (NEGATIVE); NITRITE,URINE NEGATIVE (NEGATIVE); PH,URINE 6.5 (5-9); PROTEIN,URINE NEGATIVE (NEGATIVE)
--- NOTE | 2019-09-09 17:14 | Diagnostic Imaging Report ---
INDICATION: Abdominal problems. GI distress. COMPARISON: 09/01/2019. EXAMINATION: Single frontal radiographic view of the chest was obtained. FINDINGS: Mild enlargement of the cardiac silhouette. Pulmonary vasculature is within normal limits. Lungs are hyperinflated with flattened of the hemidiaphragms, but otherwise clear. There is no focal consolidation, large effusion or pneumothorax. Osseous structures show no gross acute abnormality. IMPRESSION: 1. Mild enlargement of the cardiac silhouette, which may be exaggerated by portable technique. There is otherwise no evidence of failure or focal infiltrate. 2. Background COPD changes. Dictated by: Dictated on workstation # [id number]
[2019-09-09 17:19] LABS: ALBUMIN 3.8 GM/DL (3.2-4.5); BILIRUBIN,TOTAL 0.2 MG/DL (0.1-1.0); CALCIUM 8.9 MG/DL (8.5-10.1); CREATININE SERUM 1.63 MG/DL (0.60-1.30); POTASSIUM 5.9 MMOL/L (3.6-5.0); TOTAL PROTEIN 6.2 GM/DL (6.4-8.2)
[2019-09-09 17:30] LABS: AMPHETAMINE SCREEN, URINE NEGATIVE (NEGATIVE); BENZODIAZEPINES SCREEN URINE NEGATIVE (NEGATIVE); COCAINE SCREEN URINE NEGATIVE (NEGATIVE); METHAMPHETAMINE SCREEN URINE S NEGATIVE (NEGATIVE)
[2019-09-09] MEDS ORDERED: FUROSEMIDE 40 MG/4 ML INJ (LASIX) IVP ONE (17:30)
[2019-09-09 17:31] LABS: BARBITURATE SCREEN URINE NEGATIVE (NEGATIVE); CANNABINOID SCREEN, URINE POSITIVE (NEGATIVE); METHADONE STAT NEGATIVE (NEGATIVE); OPIATE SCREEN URINE POSITIVE (NEGATIVE); OXYCODONE STAT NEGATIVE (NEGATIVE); PROPOXYPHENE STAT NEGATIVE (NEGATIVE); TRICYCLIC ANTIDEPRESSANTS SCRE NEGATIVE (NEGATIVE)
[2019-09-09 17:37] LABS: BACTERIA,URINE TRACE /HPF; WBC,URINE RARE /HPF
[2019-09-09 17:38] LABS: AMORPHOUS SEDIMENT,UR FEW AMOR URATES /LPF; SQUAMOUS EPITHELIAL CELL,UR 0-2 /HPF
[2019-09-09 17:44] LABS: BAND NEUTROPHILS 3 %; LYMPHOCYTES % (MANUAL) 6 %; MONOCYTES % (MANUAL) 5 %; NEUTROPHILS % (MANUAL) 86 %; POLYCHROMASIA SLIGHT
[2019-09-09 17:45] LABS: ANISOCYTOSIS MODERATE; HYPOCHROMASIA SLIGHT
[2019-09-09] MEDS ORDERED: DEXTROSE 50% 50 ML (IMS) SYR IV ONE (17:45)
[2019-09-09] MEDS ORDERED: inSUlin (REGULAR) HUMAN 1 UNIT/0.01 ML (CHARGE PER UNIT) IV SCH (17:45)
[2019-09-09] MEDS: NS IV 1000 ML 1,000 ML IV SCH ×2 (17:49→21:10)
--- NOTE | 2019-09-09 18:59 | Diagnostic Imaging Report ---
PROCEDURE: CT abdomen and pelvis without contrast. TECHNIQUE: Multiple contiguous axial images were obtained through the abdomen and pelvis without the use of intravenous contrast. Auto Exposure Controls were utilized during the CT exam to meet ALARA standards for radiation dose reduction. INDICATION: Abdominal pain. COMPARISON: 09/01/2019. FINDINGS: The lung bases are clear. Cholecystectomy. The common bile duct measures up to 0.5 cm. The pancreas, spleen, adrenals, kidneys, collecting systems and bladder are negative on this noncontrast exam. The appendix is not identified. Surgical clips in the right lower quadrant abdominal wall. Large locule of gas in the anterior midline and mid along the inferior border of the liver suspicious for free intraperitoneal air. No site of bowel perforation is identified. No evidence of bowel obstruction. No acute osseous findings. IMPRESSION: CT findings suspicious for free intraperitoneal air. No bowel perforation is identified. Enteric contrast has been given and there is no evidence of enteric contrast leak at this time. The contrast has reached the mid to distal small bowel. A delayed exam after allowing further progression of contrast may be helpful to confirm perforation and possibly localized. Findings discussed with Good [place] APRN at 6:49 PM on 09/09/2019. Dictated by: Dictated on workstation # [id number]
[2019-09-09] MEDS ORDERED: metroNIDAZOLE 500MG/100ML IVPB 100 ML IV ONE (19:30)
[2019-09-09] MEDS ORDERED: CIPROFLOXACIN IV 400MG/200ML 200 ML IV ONE (19:30)
--- NOTE | 2019-09-09 20:00 | Consultation - Surgery ---
DANE MOSELEY,MED STUDENT 09/09/19 2000: History of Present Illness History of Present Illness Patient Consulted On(julia/time) 09/09/19 19:55 Date Seen by Provider: Sep 09, 2019 Time Seen by Provider: 19:00 History of Present Illness Surgery was consulted on this patient due to abdominal pain and free air seen on abdominal CT Patient states she has been having worsening abdominal pain since Saturday. It started getting worse yesterday and the pain was so bad this evening that she had to come to the ER. She described her stomach as feeling hard and bloated, with stabbing pains at times. Rates her pain as 10/10. She also describes trouble breathing because deep breaths make her abdominal pain worse. She states nothing she has tried helps the pain feel better. Allergies and Home Medications Allergies Coded Allergies: ofloxacin (Verified Allergy, Mild, 02/04/19) Penicillins (Verified Allergy, Unknown, Pt has received Ceftriaxone & Cefepime in the past w/o issue, 02/04/19) amoxicillin (Verified Allergy, Unknown, 02/04/19) clavulanic acid (Verified Allergy, Unknown, 02/04/19) promethazine (Verified Allergy, Unknown, 02/04/19) propoxyphene (Verified Allergy, Unknown, 02/04/19) ketorolac (Verified Adverse Reaction, Unknown, 11/08/17) tramadol (Verified Adverse Reaction, Unknown, 11/08/17) Home Medications Albuterol Sulfate 1 Puff Puff, 2 PUFF IH Q4H PRN for SHORTNESS OF BREATH, (Reported) Budesonide/Formoterol Fumarate 10.2 Gm Hfa.aer.ad, 2 PUFF IH BID, (Reported) Cefdinir 300 Mg Capsule, 300 MG PO BID Prescribed by: LASHAY CONDE on 09/02/19 1145 Cetirizine HCl 10 Mg Tablet, 10 MG PO DAILY, (Reported) LAST FILLED #30 07-21-19 Cyclobenzaprine HCl 10 Mg Tablet, 10 MG PO HS, (Reported) Dicyclomine HCl 10 Mg Capsule, 20 MG PO TID PRN for CRAMPS, (Reported) TAKES 2 (10MG) CAPSULES Fluticasone Propionate 16 Gm Plaquemine.susp, 2 SPRAYS NS DAILY, (Reported) Gabapentin 800 Mg Tablet, 800 MG PO QID, (Reported) Lidocaine 1 Each Adh..patch, TOP DAILY, (Reported) Lipase/Protease/Amylase 1 Each Capsule.dr, 1 CAP PO TIDAC, (Reported) LAST FILLED #100 03-08-19 Multivit-Min/FA/Lycopene/Lut 1 Each Tablet, 1 TAB PO DAILY, (Reported) Prednisone 50 Mg Tab, 50 MG PO DAILY Prescribed by: LASHAY CONDE on 09/02/19 1145 Ranitidine HCl 150 Mg Tablet, 150 MG PO BID, (Reported) LAST FILLED #60 07-21-19 Past Luqphln-Ubuaob-Wcztsq Hx Patient Social History Alcohol Use: Past History Recreational Drug Use: Yes Drug of Choice: Smokes THC at times for pain Smoking Status: Current Everyday Smoker Cigarettes Per Day: 1 Type Used: Cigarettes 2nd Hand Smoke Exposure: No Recent Foreign Travel: No Contact w/Someone Who Travel: No Recent Infectious Disease Expo: No Recent Hopitalizations: No Immunizations Up To Date Tetanus Booster (TDap): Unknown PED Vaccines UTD: No Date of Pneumonia Vaccine: Jul 26, 2009 Date of Influenza Vaccine: Sep 26, 2013 Seasonal Allergies Seasonal Allergies: No Surgeries History of Surgeries: Yes (left leg amputation) Surgeries: Abdominal, Amputation (left AKA), Eye Surgery, Gallbladder, Hysterectomy, Oophorectomy, Orthopedic Respiratory History of Respiratory Disorde: Yes (ASPIRATION AND ARDS, wears O2 at home at 2 LPM) Respiratory Disorders: Asthma, Pneumonia, Chronic Bronchitis, COPD, Emphysema Cardiovascular History of Cardiac Disorders: Yes Cardiac Disorders: Hypertension, Peripheral Vascular Neurological History of Neurological Disord: Yes (CHRONIC PHANTOM LEG PAIN, TREMORS) Neurological Disorders: Headaches /Migraines, Stroke 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 System Hx 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 Disorders: Yes Sexually Transmitted Disease: No HIV/AIDS: No 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 Genitourinary History of Genitourinary Disor: Yes (CHRONIC RENAL INSUFFICIENCY) Genitourinary Disorders: UTI-Chronic Gastrointestinal History of Gastrointestinal Di: Yes (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) Gastrointestinal Disorders: Gastroesophageal Reflux, Pancreatitis, Hiatal Hernia, Ulcer, Gall Bladder Disease Musculoskeletal History of Musculoskeletal Dis: Yes Musculoskeletal Disorders: Amputee, Osteoporosis, Fractures Endocrine History of Endocrine Disorders: Yes (history of chronic pancreatitis) HEENT History of HEENT Disorders: Yes (EDENTULOUS; BILATERAL CATARACT SURGERY) HEENT Disorders: Cataract Loss of Vision: Denies Hearing Impairment: Denies Cancer History of Cancer: No Psychosocial History of Psychiatric Problem: Yes Behavioral Health Disorders: Anxiety, Suicide Attempts, Depression Integumentary History of Skin or Integumenta: No Blood Transfusions History of Blood Disorders: No Adverse Reaction to a Blood Tr: No Family Medical History Significant Family History: Heart Disease, COPD, Diabetes (father), Hypertension (mother and father), Stroke Family Medial History: Alzheimer's disease 19 FATHER 19 MOTHER Asthma 19 FATHER Completed stroke 19 FATHER Deafness or hearing loss 19 FATHER Dementia 19 FATHER Diabetes mellitus 19 FATHER 19 MOTHER Headache disorder 19 FATHER Hypertension 19 FATHER 19 MOTHER Myocardial infarction 19 FATHER 19 MOTHER Respiratory disorder 19 FATHER No Family History of: Kidney disease Review of Systems-General Constitutional: No chills, No fever, No malaise, No weight gain, No weight loss EENTM: No ear pain, No blurred vision, No eye pain Respiratory: No cough; dyspnea on exertion; No hemoptysis; short of breath, wheezing Cardiovascular: No chest pain; edema; No palpitations Gastrointestinal: abdominal pain (diffuse); No constipation, No diarrhea; heartburn; No melena; nausea; No vomiting; other (denies blood in stool) Genitourinary: decreased output; No dysuria; frequency; No hematuria Musculoskeletal: joint pain, joint swelling, muscle pain Skin: No change in color, No lesions, No rash Psychiatric/Neurological: Anxiety, Depressed; Denies Headache, Denies Numbness, Denies Tingling Other Hematologic: denies easy bleeding or bruising Physical Exam-General Problems Physical Exam Vital Signs Vital Signs - First Documented 09/09/19 16:38 Temp 36.2 Pulse 72 Resp 18 B/P (MAP) 133/99 (110) Pulse Ox 94 O2 Delivery Room Air Capillary Refill : Less Than 3 Seconds General Appearance: moderate distress, thin, other (chronically ill) Eyes: Bilateral Eye PERRL, Bilateral Eye EOMI HEENT: No scleral icterus (R), No scleral icterus (L) Neck: non-tender; No lymphadenopathy (R), No lymphadenopathy (L) Respiratory: lungs clear, decreased breath sounds, accessory muscle use Cardiovascular: no murmur, tachycardia Peripheral Pulses: 2+ Dorsalis Pedis (R), 2+ Radial Pulses (R), 2+ Radial Pulses (L) Gastrointestinal: No soft; distended, tenderness Extremities: other (left AKA) Neurologic/Psychiatric: radiosonde specialist II-XII nml as tested, alert, oriented x 3 Skin: warm/dry Data Review Labs Laboratory Tests 09/09/19 15:50: Sodium Level 136, Potassium Level 5.9H, Chloride Level 101, Carbon Dioxide Level 24, Anion Gap 11, Blood Urea Nitrogen 35H, Creatinine 1.63H, Estimat Glomerular Filtration Rate 33, BUN/Creatinine Ratio 21, Glucose Level 122H, Calcium Level 8.9, Corrected Calcium 9.1, Total Bilirubin 0.2, Aspartate Amino Transf (AST/SGOT) 10, Alanine Aminotransferase (ALT/SGPT) 18, Alkaline Phosphatase 59, Total Protein 6.2L, Albumin 3.8 09/09/19 16:40: White Blood Count 8.8, Red Blood Count 4.13L, Hemoglobin 12.4, Hematocrit 41, Mean Corpuscular Volume 99, Mean Corpuscular Hemoglobin 30, Mean Corpuscular Hemoglobin Concent 30L, Red Cell Distribution Width 19.1H, Platelet Count 485H, Mean Platelet Volume 10.4, Neutrophils (%) (Auto) 89H, Lymphocytes (%) (Auto) 5L , Monocytes (%) (Auto) 6, Eosinophils (%) (Auto) 0, Basophils (%) (Auto) 0, Neutrophils # (Auto) 7.8, Lymphocytes # (Auto) 0.4L, Monocytes # (Auto) 0.6, Eosinophils # (Auto) 0.0, Basophils # (Auto) 0.0, Neutrophils % (Manual) 86, Lymphocytes % (Manual) 6, Monocytes % (Manual) 5, Band Neutrophils 3, Polychromasia SLIGHT, Hypochromasia SLIGHT, Anisocytosis MODERATE, B-Type Natriuretic Peptide 43.1, Lipase 54 09/09/19 16:55: Urine Color YELLOW, Urine Clarity CLEAR, Urine pH 6.5, Urine Specific Tropic 1.015L, Urine Protein NEGATIVE, Urine Glucose (UA) NEGATIVE, Urine Ketones NEGATIVE, Urine Nitrite NEGATIVE, Urine Bilirubin NEGATIVE, Urine Urobilinogen 0.2, Urine Leukocyte Esterase NEGATIVE, Urine RBC (Auto) NEGATIVE, Urine RBC NONE, Urine WBC RARE, Urine Squamous Epithelial Cells 0-2, Urine Crystals PRESENTH, Urine Amorphous Sediment FEW PATY URATESH, Urine Bacteria TRACE, Urine Casts NONE, Urine Mucus NEGATIVE, Urine Culture Indicated NO, Urine Opiates Screen POSITIVEH, Urine Oxycodone Screen NEGATIVE, Urine Methadone Screen NEGATIVE, Urine Propoxyphene Screen NEGATIVE, Urine Barbiturates Screen NEGATIVE, Ur Tricyclic Antidepressants Screen NEGATIVE, Urine Phencyclidine Screen NEGATIVE, Urine Amphetamines Screen NEGATIVE, Urine Methamphetamines Screen NEGATIVE, Urine Benzodiazepines Screen NEGATIVE, Urine Cocaine Screen NEGATIVE, Urine Cannabinoids Screen POSITIVEH Assessment/Plan Assessment/Plan Assessment/Plan Assessment: -Abdominal Pain Plan: Exploratory laparotomy to be done VALENTINO Cheema DO 09/09/19 2015: History of Present Illness History of Present Illness Time Seen by Provider: 19:00 History of Present Illness Pt seen and examined, states pain got much worse today. Allergies and Home Medications Allergies Coded Allergies: ofloxacin (Verified Allergy, Mild, 02/04/19) Penicillins (Verified Allergy, Unknown, Pt has received Ceftriaxone & Cefepime in the past w/o issue, 02/04/19) amoxicillin (Verified Allergy, Unknown, 02/04/19) clavulanic acid (Verified Allergy, Unknown, 02/04/19) promethazine (Verified Allergy, Unknown, 02/04/19) propoxyphene (Verified Allergy, Unknown, 02/04/19) ketorolac (Verified Adverse Reaction, Unknown, 11/08/17) tramadol (Verified Adverse Reaction, Unknown, 11/08/17) Home Medications Albuterol Sulfate 1 Puff Puff, 2 PUFF IH Q4H PRN for SHORTNESS OF BREATH, (Reported) Budesonide/Formoterol Fumarate 10.2 Gm Hfa.aer.ad, 2 PUFF IH BID, (Reported) Cefdinir 300 Mg Capsule, 300 MG PO BID Prescribed by: LASHAY CONDE on 09/02/19 1145 Cetirizine HCl 10 Mg Tablet, 10 MG PO DAILY, (Reported) LAST FILLED #30 07-21-19 Cyclobenzaprine HCl 10 Mg Tablet, 10 MG PO HS, (Reported) Dicyclomine HCl 10 Mg Capsule, 20 MG PO TID PRN for CRAMPS, (Reported) TAKES 2 (10MG) CAPSULES Fluticasone Propionate 16 Gm Plaquemine.susp, 2 SPRAYS NS DAILY, (Reported) Gabapentin 800 Mg Tablet, 800 MG PO QID, (Reported) Lidocaine 1 Each Adh..patch, TOP DAILY, (Reported) Lipase/Protease/Amylase 1 Each Capsule.dr, 1 CAP PO TIDAC, (Reported) LAST FILLED #100 03-08-19 Multivit-Min/FA/Lycopene/Lut 1 Each Tablet, 1 TAB PO DAILY, (Reported) Prednisone 50 Mg Tab, 50 MG PO DAILY Prescribed by: LASHAY CONDE on 09/02/19 1145 Ranitidine HCl 150 Mg Tablet, 150 MG PO BID, (Reported) LAST FILLED #60 07-21-19 Patient Home Medication List Home Medication List Reviewed: Yes Past Cnvcccn-Muuuqd-Eoyyvi Hx Family Medical History Family Medial History: Alzheimer's disease 19 FATHER 19 MOTHER Asthma 19 FATHER Completed stroke 19 FATHER Deafness or hearing loss 19 FATHER Dementia 19 FATHER Diabetes mellitus 19 FATHER 19 MOTHER Headache disorder 19 FATHER Hypertension 19 FATHER 19 MOTHER Myocardial infarction 19 FATHER 19 MOTHER Respiratory disorder 19 FATHER No Family History of: Kidney disease Physical Exam-General Problems Physical Exam Gastrointestinal: distended; No guarding, No rebound; tenderness Lymphatic: no adenopathy (neck, axilla or groin) Assessment/Plan Assessment/Plan Assessment/Plan Pneumoperitoneum I talked with pt regarding CT findings, Radiology read scan as showing free air. Unfortunately, we don't know where the free air is coming from. Therefore, we must do an exploratory laparotomy to be able to find the perforation and repair it. I discussed this with the pt and answered all her questions; she stated just fix this pain. She will get IV fluids, IV ABX, pain control, anti- emetics and will get consent for procedure. Supervisory-Addendum Brief Verification & Attestation Participated in pt care: history, MDM, physical Personally performed: exam, history, MDM Care discussed with: Medical Student Procedures: n/a Verification and Attestation of Medical Student E/M Service A medical student performed and documented this service in my presence. I reviewed and verified all information documented by the medical student and made modifications to such information, when appropriate. I personally performed the physical exam and medical decision making. Valentino Clemente, Sep 09, 2019,20:15 DANE MOSELEY,MED STUDENT Sep 09, 2019 20:00 VALENTINO CLEMENTE DO Sep 09, 2019 20:15
[2019-09-09] MEDS ORDERED: LORazepam INJ 2 MG/ML (ATIVAN) VIAL IVP PRN (20:15)
[2019-09-09] MEDS ORDERED: SEVOFLURANE (ULTANE) 15 ML INHAL SOLN ONE (20:25)
[2019-09-09] MEDS ORDERED: LIDOCAINE PF 2% 5 ML (XYLOCAINE) VIAL ONE (20:25)
[2019-09-09] MEDS ORDERED: ROCURONIUM 10 MG/ML 5 ML SYRINGE IV ONE (20:25)
[2019-09-09] MEDS ORDERED: proPOfol 200 MG/20 ML (DIPRIVAN) VIAL IV ONE (20:25)
[2019-09-09] MEDS ORDERED: fentaNYL INJECTION 100 MCG/2 ML AMP ONE (20:26)
[2019-09-09] MEDS ORDERED: MIDAZOLAM 2 MG/2 ML (VERSED) VIAL ONE ×2 (20:26→21:33)
[2019-09-09] MEDS ORDERED: HYDROmorphone 2 MG/ML VIAL (DILAUDID) ONE (21:14)
[2019-09-09] MEDS ORDERED: LACTATED RINGERS 1,000 ML IV PRN (21:15)
[2019-09-09] MEDS ORDERED: DEXAMETHASONE 10 MG/ML (DECADRON) 1 ML VIAL ONE (21:19)
[2019-09-09] MEDS ORDERED: ATROPINE INJ 0.4 MG/ML SDV ONE (21:28)
[2019-09-09] MEDS ORDERED: PROPOFOL DRIP (ICU) 100 ML IV ONE (21:37)
--- NOTE | 2019-09-09 21:41 | Progress Note-Post Operative ---
Post-Operative Progess Note Surgeon (s)/Night Clerk (s) Surgeon VALENTINO CLEMENTE DO Night Clerk: Alice Pre-Operative Diagnosis pneumoperitoneum Post-Operative Diagnosis Cecal Volvulus Procedure & Operative Findings Date of Procedure 09/09/19 Procedure Performed/Findings Right colon resection Anesthesia Type GET Estimated Blood Loss Estimated blood loss (mL): scant Specimens/Packing Specimens Removed Right colon, appy, portion of TI VALENTINO CLEMENTE DO Sep 09, 2019 21:41
[2019-09-09] MEDS: PROPOFOL DRIP (ICU) 100 ML IV SCH (21:56)
[2019-09-09] MEDS ORDERED: PHENYLEPHRINE 100 MCG/ML 10 ML (ANESTHESIA) SYR ONE (21:58)
[2019-09-09] MEDS ORDERED: HYDROmorphone 2 MG/ML VIAL (DILAUDID) IV ONE (22:00)
[2019-09-09] MEDS ORDERED: ONDANSETRON 4 MG/2 ML (SDV) Z0FRAN IVP PRN (22:00)
--- NOTE | 2019-09-09 22:20 | NUR ---
REPORT RECEIVED FROM BRICE CORDERO. THIS RN TO ASSUME CARE OF PT AT THIS TIME. PT SEDATED AND VENTILATED, VENT SETTINGS: AC/VC MODE, 16RR, 350TV, 80% FIO2, 5 PEEP. FRANCOIS CATHETER INTACT, PATENT, AND DRAINING, 0.9% NACL RUNNING VIA GRAVITY, PROPOFOL AT 20MCG.
[2019-09-09] MEDS ORDERED: ONDANSETRON 4 MG/2 ML (SDV) Z0FRAN IV PRN (22:45)
[2019-09-09] MEDS ORDERED: fentaNYL INJECTION 100 MCG/2 ML AMP IV PRN (23:00)
[2019-09-09 23:29] LABS: ABG BASE EXCESS 2.3 MMOL/L (-2.5-2.5); ABG OXYGEN SATURATION 100 % (94-100); ABG PCO2 56 MMHG (35-45); ABG PO2 339 MMHG (79-93); ABG TCO2 29.8 MMOL/L (21.0-31.0)
[2019-09-09 23:30] LABS: ALLENS TEST YES-POS
[2019-09-09 23:31] LABS: INSPIRED O2 80%; PATIENT TEMP 36.2; VENTILATOR YES
[2019-09-09 23:33] LABS: ABG PH 7.32 (7.37-7.43)
[2019-09-10] VITALS (22 sets, daily range): BP systolic 81–144; BP diastolic 60–89
[2019-09-10] MEDS: NS IV 1000 ML 1,000 ML IV SCH ×3 (00:51→18:05)
[2019-09-10 02:08] LABS: BASOPHILS % (AUTO) 0 % (0-10); EOSINOPHILS % (AUTO) 0 % (0-10); HEMATOCRIT 42 % (35-52); HEMOGLOBIN 12.7 G/DL (11.5-16.0); LYMPHOCYTES # (AUTO) 0.5 X 10^3 (1.0-4.0); LYMPHOCYTES % (AUTO) 2 % (12-44); MEAN CORPUSCULAR HEMOGLOBIN 30 PG (25-34); MEAN CORPUSCULAR HGB CONC 30 G/DL (32-36); MEAN CORPUSCULAR VOLUME 99 FL (80-99); MEAN PLATELET VOLUME 10.4 FL (7.4-10.4); MONOCYTES # (AUTO) 1.6 X 10^3 (0.0-1.0); MONOCYTES % (AUTO) 7 % (0-12); NEUTROPHILS # (AUTO) 22.6 X 10^3 (1.8-7.8); NEUTROPHILS % (AUTO) 91 % (42-75); PLATELET COUNT 443 10^3/uL (130-400); WHITE BLOOD COUNT 24.8 10^3/uL (4.3-11.0)
[2019-09-10 02:23] LABS: BAND NEUTROPHILS 7 %; BASOPHILS % (MANUAL) 0 %; EOSINOPHILS % (MANUAL) 0 %; LYMPHOCYTES % (MANUAL) 1 %; MONOCYTES % (MANUAL) 6 %; NEUTROPHILS % (MANUAL) 86 %
[2019-09-10 02:24] LABS: ANISOCYTOSIS MODERATE; HYPOCHROMASIA MODERATE; MICROCYTOSIS SLIGHT; POLYCHROMASIA SLIGHT; TEAR DROP CELLS SLIGHT
[2019-09-10] MEDS ORDERED: fentaNYL (OMNICELL DRIP KIT ONLY) 250 MCG/5 ML AMP ONE (02:24)
[2019-09-10] MEDS ORDERED: NS (IVPB) 100 ML ONE (02:24)
[2019-09-10] MEDS ORDERED: SODIUM BICARB 8.4% 50 MEQ/50 ML VIAL ONE (02:25)
[2019-09-10 02:26] LABS: ALBUMIN 3.6 GM/DL (3.2-4.5); BILIRUBIN,TOTAL 0.2 MG/DL (0.1-1.0); CALCIUM 8.7 MG/DL (8.5-10.1); CREATININE SERUM 1.39 MG/DL (0.60-1.30); MAGNESIUM 1.9 MG/DL (1.6-2.4); POTASSIUM 4.7 MMOL/L (3.6-5.0); TOTAL PROTEIN 6.2 GM/DL (6.4-8.2)
[2019-09-10] MEDS ORDERED: LACTATED RINGERS 1,000 ML IV ONE (02:45)
[2019-09-10] MEDS ORDERED: fentaNYL INJECTION 1,250 MCG in NS (IVPB) 250 ML IV SCH (02:45)
[2019-09-10] MEDS ORDERED: SODIUM BICARB 8.4% 50 MEQ/50 ML VIAL IV ONE (02:45)
[2019-09-10] MEDS ORDERED: fentaNYL INJECTION 100 MCG/2 ML AMP IVP PRN (02:45)
--- NOTE | 2019-09-10 02:48 | OPERATIVE REPORT ---
DATE OF SERVICE: PREOPERATIVE DIAGNOSIS: Pneumoperitoneum. POSTOPERATIVE DIAGNOSIS: Cecal volvulus. PROCEDURE: Right colon resection. SURGEON: Valentino Watson DO. WIGS SALESPERSON: Maico Jenkins DO. ANESTHESIA: General endotracheal tube. SPECIMEN: Right colon, portion of terminal ileum and appendix. BLOOD LOSS: Scant. FLUIDS: Per anesthesia. POSTOPERATIVE CONDITION: Stable. INDICATION FOR PROCEDURE: The patient is a 49-year-old female, who came in with increasing abdominal pain, got worse today and had a CAT scan, which was read as a pneumoperitoneum. 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 So, there is no free air. This is little bit dusky, I elected to remove this, so that this did not occur again. PROCEDURE NOTE: After informed consent was obtained, the patient was brought to the operating room, placed on the operating table in supine position. She was sterilely prepped and draped in normal fashion. A midline incision was made with #10 blade, carried down through skin and subcutaneous tissue, then deepened down to subcutaneous tissue with Bovie electrocautery down to fascia. Fascia incised with Bovie electrocautery, bluntly entered the abdomen, swept a finger around then opened the incision superiorly and inferiorly with Bovie electrocautery, keeping finger inside to protect the bowel. Upon entering, did not note any free air. There is no fluid in the abdomen, nothing that looks like there was any perforation; however, noted that the cecum was up in the right abdomen and actually laid across the stomach, it is little bit dusky. It looked like it was a cecal volvulus. I elected to remove this to try and prevent this in the future, got under the terminal ileum Bovie electrocautery through the mesentery and then came through the mesentery of the transverse colon Bovie electrocautery, then made a defect in the transverse colon on the tinea and then the antimesenteric portion of the terminal ileum. Put a RODRIGO-75 one on either side, clamped together thereby creating a [id number] functional end-to-end anastomosis, clamped and fired and then used a reload to clamp across the enterocolotomy to close this with another RODRIGO-75, clamped and fired, and then transected thereby closing this off. Then took the colon off with a LigaSure coming across the mesentery with the LigaSure in a stepwise fashion, clamping, coagulating and transecting and taking this entire portion off, oversewed the staple anastomosis because there was some bleeding and then did a 3-0 Vicryl suture to close the mesentery. Once this was done, dropped this back into the abdomen. There was really no spillage, no purulence, no other things. Elected not to do any irrigation and at this point then closed the abdominal incision, closing the fascia with a #1 double stranded PDS suture running from superior portion to inferior portion tying to itself and then closed the skin with nito. Area was cleaned and dried, dressing placed. The patient tolerated the procedure. Sponge, instrument and needle count correct at the end of the case. Job ID: [id number] DocumentID: [id number] Dictated Date: 09/09/2019 21:45:51 Booth Cleaner Date: 09/10/2019 02:47:45 Dictated By: VALENTINO WATSON DO
[2019-09-10 03:01] LABS: ABG BASE EXCESS 6.7 MMOL/L (-2.5-2.5); ABG OXYGEN SATURATION 99 % (94-100); ABG PCO2 48 MMHG (35-45); ABG PH 7.42 (7.37-7.43); ABG PO2 139 MMHG (79-93); ABG TCO2 32.7 MMOL/L (21.0-31.0)
[2019-09-10 03:02] LABS: ALLENS TEST YES-POS; INSPIRED O2 60%; PATIENT TEMP 36.4; VENTILATOR YES
[2019-09-10] MEDS: KCL 20 MEQ TAB (K-DUR) PO SCH (03:02)
[2019-09-10] MEDS: POTASSIUM CL 10MEQ/50ML IVPB 50 ML IV SCH (03:02)
[2019-09-10] MEDS: MAGNESIUM 1 GM/100 ML IVPB 100 ML IV SCH (03:02)
[2019-09-10] MEDS: PROPOFOL DRIP (ICU) 100 ML IV SCH (03:07)
[2019-09-10] MEDS ORDERED: ANIDULAFUNGIN INJECTION 200 MG in NS (IVPB) 250 ML IV ONE (04:30)
--- NOTE | 2019-09-10 04:34 | Pulmonary Consultation ---
History of Present Illness History of Present Illness Date Seen by Provider: Sep 10, 2019 Time Seen by Provider: 04:30 Date of Admission History of Present Illness 49yo presented to ED secondary to acute onset 10/10 abdominal pain and found to have colon perforation and abdominal sepsis. PT was take for emergent surgical repair. Pt was left sedated on vent through the night. Pt is currently sedated on vent. I am consulted for ICU management. Allergies and Home Medications Allergies Coded Allergies: ofloxacin (Verified Allergy, Mild, 02/04/19) Penicillins (Verified Allergy, Unknown, Pt has received Ceftriaxone & Cefepime in the past w/o issue, 02/04/19) amoxicillin (Verified Allergy, Unknown, 02/04/19) clavulanic acid (Verified Allergy, Unknown, 02/04/19) promethazine (Verified Allergy, Unknown, 02/04/19) propoxyphene (Verified Allergy, Unknown, 02/04/19) ketorolac (Verified Adverse Reaction, Unknown, 11/08/17) tramadol (Verified Adverse Reaction, Unknown, 11/08/17) Home Medications Albuterol Sulfate 1 Puff Puff, 2 PUFF IH Q4H PRN for SHORTNESS OF BREATH, (Reported) Budesonide/Formoterol Fumarate 10.2 Gm Hfa.aer.ad, 2 PUFF IH BID, (Reported) Cefdinir 300 Mg Capsule, 300 MG PO BID Prescribed by: LASHAY CONDE on 09/02/19 1145 Cetirizine HCl 10 Mg Tablet, 10 MG PO DAILY, (Reported) LAST FILLED #30 07-21-19 Cyclobenzaprine HCl 10 Mg Tablet, 10 MG PO HS, (Reported) Dicyclomine HCl 10 Mg Capsule, 20 MG PO TID PRN for CRAMPS, (Reported) TAKES 2 (10MG) CAPSULES Fluticasone Propionate 16 Gm Girdler.susp, 2 SPRAYS NS DAILY, (Reported) Gabapentin 800 Mg Tablet, 800 MG PO QID, (Reported) Lidocaine 1 Each Adh..patch, TOP DAILY, (Reported) Lipase/Protease/Amylase 1 Each Capsule.dr, 1 CAP PO TIDAC, (Reported) LAST FILLED #100 03-08-19 Multivit-Min/FA/Lycopene/Lut 1 Each Tablet, 1 TAB PO DAILY, (Reported) Prednisone 50 Mg Tab, 50 MG PO DAILY Prescribed by: LASHAY CONDE on 09/02/19 1145 Ranitidine HCl 150 Mg Tablet, 150 MG PO BID, (Reported) LAST FILLED #60 07-21-19 Past Qkbpeml-Mtbgtm-Rsgmxt Hx Patient Social History Alcohol Use: Past History Alcohol Beverage of Choice: Beer Recreational Drug Use: Yes Drug of Choice: Smokes THC at times for pain Smoking Status: Current Everyday Smoker Type Used: Cigarettes 2nd Hand Smoke Exposure: No Recent Foreign Travel: No Contact w/Someone Who Travel: No Recent Infectious Disease Expo: No Recent Hopitalizations: No Physical Abuse: No Sexual Abuse: No Immunizations Up To Date Tetanus Booster (TDap): Unknown PED Vaccines UTD: No Date of Pneumonia Vaccine: Jul 26, 2009 Date of Influenza Vaccine: Sep 26, 2013 Seasonal Allergies Seasonal Allergies: No Past Medical History Surgeries: Yes (left leg amputation) Abdominal, Amputation (left AKA), Eye Surgery, Gallbladder, Hysterectomy, Oophorectomy, Orthopedic Respiratory: Yes (ASPIRATION AND ARDS, wears O2 at home at 2 LPM) Asthma, Pneumonia, Chronic Bronchitis, COPD, Emphysema Currently Using CPAP: No Currently Using BIPAP: No Cardiac: Yes Hypertension, Peripheral Vascular Neurological: Yes (CHRONIC PHANTOM LEG PAIN, TREMORS) Headaches /Migraines, Stroke 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 Disorders: Yes 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 Sexually Transmitted Disease: No HIV/AIDS: No Genitourinary: Yes (CHRONIC RENAL INSUFFICIENCY) UTI-Chronic Gastrointestinal: Yes (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) Gastroesophageal Reflux, Pancreatitis, Hiatal Hernia, Ulcer, Gall Bladder Disease Musculoskeletal: Yes Amputee, Osteoporosis, Fractures Endocrine: Yes (history of chronic pancreatitis) HEENT: Yes (EDENTULOUS; BILATERAL CATARACT SURGERY) Cataract Loss of Vision: Denies Hearing Impairment: Denies Cancer: No Psychosocial: Yes Anxiety, Suicide Attempts, Depression Integumentary: No Blood Disorders: No Adverse Reaction/Blood Tranf: No Family Medical History Alzheimer's disease 19 FATHER 19 MOTHER Asthma 19 FATHER Completed stroke 19 FATHER Deafness or hearing loss 19 FATHER Dementia 19 FATHER Diabetes mellitus 19 FATHER 19 MOTHER Headache disorder 19 FATHER Hypertension 19 FATHER 19 MOTHER Myocardial infarction 19 FATHER 19 MOTHER Respiratory disorder 19 FATHER No Family History of: Kidney disease Heart Disease, COPD, Diabetes (father), Hypertension (mother and father), Stroke Review of Systems Time Seen by Provider: 07:29 Sepsis Event Evaluation Height, Weight, BMI Height: 5'1.00" Weight: 82lbs. 0.0oz. 37.001339ik; 12.00 BMI Method:Stated Exam Exam Vital Signs Date Time Temp Pulse Resp B/P (MAP) Pulse Ox O2 Delivery O2 Flow Rate FiO2 09/10/19 03:07 116/91 09/10/19 02:56 Mechanical Ventilator 35.00 09/10/19 02:00 35.4 09/10/19 01:00 52 09/10/19 00:00 Mechanical Ventilator 60 09/10/19 00:00 53 15 126/86 (99) 100 Mechanical Ventilator 80.00 09/10/19 00:00 Mechanical Ventilator 60.00 09/09/19 23:59 36.2 09/09/19 23:30 57 15 133/92 (106) 100 Mechanical Ventilator 80.00 09/09/19 23:00 60 15 150/97 (114) 100 Mechanical Ventilator 80.00 09/09/19 22:45 60 16 164/112 (129) 100 Mechanical Ventilator 80.00 09/09/19 22:30 62 16 164/111 (128) 100 Mechanical Ventilator 80.00 09/09/19 22:20 Mechanical Ventilator 80 09/09/19 22:20 Mechanical Ventilator 60.00 09/09/19 22:20 36.2 16 140/98 (112) 100 Mechanical Ventilator 80 09/09/19 22:15 Mechanical Ventilator 80 09/09/19 22:15 63 16 140/108 (119) 100 Mechanical Ventilator 80.00 09/09/19 22:10 16 136/92 (107) 100 Mechanical Ventilator 80 09/09/19 22:00 16 128/90 (103) 100 Mechanical Ventilator 80 09/09/19 22:00 Mechanical Ventilator 80 09/09/19 21:56 126/65 09/09/19 21:52 70 09/09/19 21:50 16 112/85 (94) 100 Mechanical Ventilator 80 09/09/19 21:45 Mechanical Ventilator 80 09/09/19 21:45 36.2 17 124/93 (103) 100 Mechanical Ventilator 80 09/09/19 20:30 36.2 50 18 129/89 (110) 93 Room Air 09/09/19 20:00 36.2 72 18 133/99 94 Room Air 09/09/19 16:38 36.2 72 18 133/99 (110) 94 Room Air I & O 09/10/19 07:00 Intake Total 2400 ml Output Total 1600 ml Balance 800 ml Height & Weight Height: 5'1.00" Weight: 82lbs. 0.0oz. [id number]; 12.00 BMI Method:Stated General Appearance: No Apparent Distress, WD/WN HEENT: PERRL/EOMI, Normal ENT Inspection, Pharynx Normal Neck: Full Range of Motion, Non Tender, Supple Respiratory: Crackles, Decreased Breath Sounds, Other (sedated on vent ) Cardiovascular: Regular Rate, Rhythm Capillary Refill: Less Than 3 Seconds Peripheral Pulses: 2+ Dorsalis Pedis (R), 2+ Radial Pulses (R), 2+ Radial Pulses (L) Gastrointestinal: distended; No guarding, No rebound; tenderness Neurologic/Psychiatric: Alert Skin: Normal Color, Warm/Dry Lymphatic: No Adenopathy Results Lab Laboratory Tests 09/09/19 15:50 09/09/19 16:40 09/10/19 02:00 Assessment/Plan Assessment/Plan Acute respiratory failure secondary to sedation for surgery -Currently on vent -Will wake pt up and attempt to extubate colon perforation S/p surgery -Continue cipro and flagyl -Add eraxis COPD -SVNS -[facility]xygen [facility] ASHLEIGH ORTEGA DO Sep 10, 2019 04:33
--- NOTE | 2019-09-10 04:50 | NUR ---
RT AT BEDSIDE WITH THIS RN FOR EXTUBATION. PT ORAL CAVITY SUCTIONED, 10CC EXPELLED FROM ET TUBE CUFF, ET TUBE REMOVED, SUCTION PROVIDED, PT TOLERATED EXTUBATION WELL. PT ALERT, FOLLOWING COMMANDS, AND TALKING.
[2019-09-10] MEDS ORDERED: morphine INJ 4 MG/ML 1 ML (VIAL/SYRINGE) ONE (04:56)
[2019-09-10] MEDS: morphine INJ 10 MG/ML 1ML (SYR OR VIAL) IVP PRN ×2 (05:01→07:01)
[2019-09-10] MEDS ORDERED: morphine INJ 10 MG/ML 1ML (SYR OR VIAL) IVP STA (05:11)
[2019-09-10] MEDS: metroNIDAZOLE 500 MG/100 ML IVPB (PRE-MIX) IV SCH ×3 (05:23→22:24)
--- NOTE | 2019-09-10 06:47 | Diagnostic Imaging Report ---
INDICATION: NG tube placement COMPARISON: None. FINDINGS: Single view of the abdomen demonstrates enteric tube within the stomach. The side-port is at the GE junction. Consider advancing 5 cm. IMPRESSION: NG tube as described. Dictated by: Dictated on workstation # [id number]
--- NOTE | 2019-09-10 07:24 | NUR ---
THIS NURSE NOTIFIED DR ORTEGA PT VERY AGITATED. ORDERS GIVEN VIA TELEPHONE. WRITTEN DOWN AND REPEATED BACK.
[2019-09-10] MEDS ORDERED: FLU QUADRIvalent (5+ YOA) 2019-2020 (AFLURIA) 0.5 ML IM ONE (07:30)
--- NOTE | 2019-09-10 07:42 | Diagnostic Imaging Report ---
INDICATION: Intubated COMPARISON: 09/09/2019 FINDINGS: Single view chest demonstrates ET tube right at or just above the tyesha. The heart is enlarged. The lungs are well aerated. There is no pneumothorax or effusion. NG tube is seen in the stomach. IMPRESSION: ET tube tip at or just above the tyesha. Consider withdrawing 1 to 2 cm. No pneumothorax. Stable cardiac enlargement. Report was called to Sheela[facility] by ashish at 7:41am. Dictated by: Dictated on workstation # [id number]
[2019-09-10] MEDS ORDERED: HALOPERIDOL 5 MG/ML (HALDOL) AMP IV PRN (07:45)
[2019-09-10] MEDS ORDERED: DexMEDEtomidine 250 ML DRIP 250 ML IV SCH (07:45)
[2019-09-10] MEDS: CIPROFLOXACIN 400 MG/D5W 200 ML (PRE-MIX) IV SCH ×2 (07:57→19:42)
[2019-09-10] MEDS: NICOTINE 21 MG (NICODERM) PATCH TD SCH (07:57)
[2019-09-10] MEDS ORDERED: NICOTINE 21 MG (NICODERM) PATCH TD SCH (09:00)
--- NOTE | 2019-09-10 10:08 | Physical Therapy Evaluation ---
PT Evaluation-General Medical Diagnosis Admission Date Sep 09, 2019 at 21:51 Medical Diagnosis: Perforated bowel Onset Date: Sep 09, 2019 Therapy Diagnosis Therapy Diagnosis: Debility/ deconditioning Height/Weight Height (Feet): 5 Height (Inches): 1.00 Weight (Pounds): 82 Weight (Ounces): 0.0 Precautions Precautions/Isolations: Contact Isolation, Fall Prevention, Pressure Ulcer Referral Physician: Vivek Delgadillo Reason for Referral: Evaluation/Treatment Medical History Pertinent Medical History: COPD, CVA, GERD, HTN, Neuropathy, Renal Insufficien cy, Smoking Additional Medical History Left leg amputation, depression Current History Patient presented to the ER with abdominal pain and distention for 2 days. Reviewed History: Yes Social History Home: Apartment Prior Prior Level of Function SCALE: Activities may be completed with or without assistive devices. 1-Agvolslqhv-ikljfax completes the activity by him/herself with no assistance from a helper. 5-Set-up or Clean-up Assistance-helper sets up or cleans up; patient completes activity. [place] assists only prior to or following the activity. 4-Supervision or Touching Assistance-helper provides verbal cues and/or touching/steadying and/or contact guard assistance as patient completes activity. Assistance may be provided throughout the activity or intermittently. 3-Partial/Moderate Assistance-helper does LESS THAN HALF the effort. [place] lifts, holds or supports trunk or limbs, but provides less than half the effort. 2-Substantial/Maximal Assistance-helper does MORE THAN HALF the effort. [place] lifts or holds trunk or limbs and provides more than half the effort. 3-Iwbohqcvx-jmozei does ALL the effort. Patient does none of the effort to complete the activity. Or, the assistance of 2 or more helpers is required for the patient to complete the activity. If activity was not attempted, code reason: 7-Patient Refused. 9-Not Applicable-not attempted and the patient did not perform the activity before the current illness, exacerbation or injury. 10-Not Attempted due to Environmental Limitations-(lack of equipment, weather restraints, etc.). 88-Not Attempted due to Medical Conditions or Safety Concerns. Bed Mobility: 6 Transfers (B,C,W/C): 6 Wheelchair Mobility: 6 Indoor Mobility (Ambulation): Not Applicalbe Stairs: Not Applicalbe Prior Devices Use: Manual wheelchair PT Evaluation-Current Subjective Patient is lethargic due to receiving medications to relax patient because she was agitated. Objective Patient Orientation: Unable to Assess, Mumbles Attachments: Drains, Grubbs Catheter, IV ROM/Strength Strength Lower Extremities Impaired throughout BLE Integumentary/Posture Bladder Incontinence: Grubbs Cath Transfers Roll Left to Right (QC): 3 Patient was given medication to relax due to being agitated and is not safe to perform EOB or OOB activity Gait Does the Patient Walk?: No and Walking Goal NOT indicated Assessment/Needs Patient was not able to do much for herself at this time. She had been given medication to help her relax from her agitated state. PT to address functional strength and mobility to improve current LOF. 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 Goals Time Frame: Sep 24, 2019 Roll Left & Right (QC): 6 Sit to Lying (QC): 6 Lying-Sitting on Side/Bed(QC): 6 Chair/Stp-do-Joicz Xfer(QC): 6 Toilet Transfer (QC): 6 PT Plan Problem List Problem List: Activity Tolerance, Functional Strength, Safety, Balance, Transfer, Bed Mobility, ROM Treatment/Plan Treatment Plan: Continue Plan of Care Treatment Plan: Bed Mobility, Education, Functional Activity Jeaneth, Functional Strength, Safety, Therapeutic Exercise, Transfers Treatment Duration: Sep 24, 2019 Frequency: 5 times per week Estimated Hrs Per Day: .25 hour per day Patient and/or Family Agrees t: Yes Time/GCodes Time In: 830 Time Out: 845 Total Billed Treatment Time: 15 Total Billed Treatment 1 visit EVM (15 minutes) VICENTA RALPH PT Sep 10, 2019 10:08
--- NOTE | 2019-09-10 10:12 | NUR ---
THIS NURSE NOTIFIED DR NERI PT MED/SURG STATUS. DR NERI SAID TO REFER TO SURGERY.
--- NOTE | 2019-09-10 10:30 | NUR ---
THIS NURSE NOTIFIED DR CLEMENTE PT WAS MED/SURG STATUS. DR CHYNA GARCIAAY WITH PT BEING MED/SURG STATUS. ORDER GIVEN TO DC OGT AND PT MAY HAVE CLEAR LIQUID DIET.
--- NOTE | 2019-09-10 10:46 | Occupational Therapy Eval ---
OT Evaluation-General/PLF Medical Diagnosis Admission Date Sep 09, 2019 at 21:51 Medical Diagnosis: Perforated bowel Onset Date: Sep 09, 2019 Therapy Diagnosis Therapy Diagnosis: Decreased ADL function/ UE strength Height/Weight Height (Feet): 5 Height (Inches): 1.00 Weight (Pounds): 82 Weight (Ounces): 0.0 Precautions Precautions/Isolations: Contact Isolation, Fall Prevention, Pressure Ulcer Referral Physician: Vivek Delgadillo Referral Reason: Activity Tolerance, Self Care, Evaluation/Treatment, Strengthening/ROM Medical History Pertinent Medical History: COPD, CVA, GERD, HTN, Neuropathy, Renal Insufficiency, Smoking Additional Medical History LLE amputation, COPD, HTN, PVD, anx/ depression with suicide attempts. Current History Diffuse abdominal pain for 2 days with distention; R colon resection completed 09/09/19. Pt extubated 09/10/19 in morning Reviewed History: Yes Social History Home: Apartment Current Living Status: Spouse Entry Into Home: Level Entry Steps Into Home: 0 ADL-Prior Level of Function SCALE: Activities may be completed with or without assistive devices. 2-Hbizbnored-mvjizqg completes the activity by him/herself with no assistance from a helper. 5-Set-up or Clean-up Assistance-helper sets up or cleans up; patient completes activity. [place] assists only prior to or following the activity. 4-Supervision or Touching Assistance-helper provides verbal cues and/or touching/steadying and/or contact guard assistance as patient completes activity. Assistance may be provided throughout the activity or intermittently. 3-Partial/Moderate Assistance-helper does LESS THAN HALF the effort. [place] lifts, holds or supports trunk or limbs, but provides less than half the effort. 2-Substantial/Maximal Assistance-helper does MORE THAN HALF the effort. [place] lifts or holds trunk or limbs and provides more than half the effort. 1-Sdrgpktzu-njvfvn does ALL the effort. Patient does none of the effort to complete the activity. Or, the assistance of 2 or more helpers is required for the patient to complete the activity. If activity was not attempted, code reason: 7-Patient Refused. 9-Not Applicable-not attempted and the patient did not perform the activity before the current illness, exacerbation or injury. 10-Not Attempted due to Environmental Limitations-(lack of equipment, weather restraints, etc.). 88-Not Attempted due to Medical Conditions or Safety Concerns. ADL PLOF Comments Pt states she was IND with self care tasks with use of w/c. Agrees she utilizes FWW for functional transfers. Pt states assists with IADL tasks. Self Care: Independent Functional Cognition: Independent DME/Equipment: Shower Occupation: not employed Drive Self: No OT Current Status Subjective Pt states 8/10 pain in abdomen, seen in room with nursing. Nursing states PT worked with pt but since then has taken pain medication which has made her drowsy. Pt requires cues for opening eyes through session, agreeable to modified evaluation. Mental Status/Objective Attachments: Grubbs Catheter, IV, Oxygen Current Glasses/Contacts: Yes Hearing Aids: No Hand Dominance: Right Upper Extremity ROM DNT due to pain Upper Extremity Coordination WFL BUE Upper Extremity Sensation WFL BUE Upper Extremity Strength Decreased- facility specialist strength moderate ADL-Treatment Eating (QC): 7 Oral Hygiene (QC): 7 Shower/Bathe Self (QC): 7 Upper Body Dressing (QC): 7 Lower Body Dressing (QC): 7 On/Off Footwear (QC): 1 (Based on physical abilities, pt would be TD with RLE sock. ) Toileting Hygiene (QC): 1 (Based on pt mobiltiy and UE strength, pt would be TD with toilet hygiene.) Other Treatments Pt seen in bed, pt agrees to be evaluated though refuses OOB/ UE movements due to pain. Pt educated on OT role and evaluation. Pt answers questions with cues for eye opening and attention. Pt nods to answer most questions, states she utilizes w/c, agrees she utilizes FWW to move from w/c to toilet. Pt nods to walk in shower. Pt completes facility specialist strength, refuses AROM/ PROM of UE's stating she has arthritis and UE's hurt. Pt states she is able to dress herself and UE's don't limit ability. Pt left in bed with nursing present, all needs met, call light in reach. Education OT Patient Education: Correct positioning, Purpose of tx/functional activities Teaching Recipient: Patient Teaching Methods: Demonstration, Discussion Response to Teaching: Verbalize Understanding, Return Demonstration, Reinforcement Needed OT Cash Processor Goals Cash Processor Goals Time Frame: Sep 17, 2019 Eating (QC): 6 Oral Hygiene (QC): 6 Toileting Hygiene (QC): 6 Shower/Bathe Self (QC): 6 Upper Body Dressing (QC): 6 Lower Body Dressing (QC): 4 On/Off Footwear (QC): 4 Additional Goals: 1-Demonstrate ADL Tasks, 2-Verbalize Understanding, 3- ImproveStrength/Jeaneth 1=Demonstrate adherence to instructed precautions during ADL tasks. 2=Patient will verbalize/demonstrate understanding of assistive devices/modifications for ADL. 3=Patient will improve strength/tolerance for activity to enable patient to perform ADL's. OT Education/Plan Problem List/Assessment Assessment: Decreased Activ Tolerance, Decreased UE Strength, Dependent Transfers, Impaired Funct Balance, Impaired I ADL's, Impaired Self-Care Skills, Restricted Funct UE ROM Discharge Recommendations Plan/Recommendations: Continue POC Treatment Plan/Plan of Care Treatment,Training & Education: Yes Patient would benefit from OT for education, treatment and training to promote independence in ADL's, mobility, safety and/or upper extremity function for ADL' s. Plan of Care: ADL Retraining, Caregiver Training, Functional Mobility, UE Funct Exercise/Act, W/C Management Training Treatment Duration: Sep 17, 2019 Frequency: 5 times per week Estimated Hrs Per Day: .25 hour per day Rehab Potential: Fair Time/GCodes Start Time: 10:10 Stop Time: 10:19 Total Time Billed (hr/min): 9 Billed Treatment Time ABELARDO Wade (9) DARINEL VELASQUEZ OTR Sep 10, 2019 10:46
--- NOTE | 2019-09-10 11:11 | Anesthesia-General Post-Op ---
General Patient Condition Mental Status/LOC: Same as Preop Cardiovascular: Satisfactory Nausea/Vomiting: Absent Respiratory: Satisfactory Pain: Controlled Complications: Absent Post Op Complications Complications None Follow Up Care/Instructions Patient Instructions None needed. Anesthesia/Patient Condition Patient Condition Patient is doing well, no complaints, stable vital signs, no apparent adverse anesthesia problems. No complications reported per nursing. EMBER PEARSON CRNA Sep 10, 2019 11:11
[2019-09-10] MEDS: RT-ALBUTEROL/IPRATROPIUM 3 ML (DUONEB) VIAL INH SCH ×4 (11:37→18:50)
--- NOTE | 2019-09-10 12:03 | Consultation - Hospitalist ---
[facility] 09/10/19 1203: HPI History of Present Illness: HPI/Chief Complaint Consult requested for 49 year old female patient that arrived to ED yesterday with diffuse abdominal pain and distention for 2 days. 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 Patient has a history of L leg amputation, COPD, stroke, pancreatitis and chronic UTI. Patient has undergone hysterectomy and gallbladder removal in the past. Patient had a tox screen on arrival which was positive for opiates and marijuana. Patient had respiratory failure after sedation for surgery and is requiring respiratory management at this time. Upon arrival, patient was sedated and was unable to give further information. Date Seen 09/10/19 Attending Physician Lambert Watson DO 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 Patients Allergies have been reviewed. Allergies Allergies Coded Allergies ofloxacin (Verified Allergy, Mild, 02/04/19) Penicillins (Verified Allergy, Unknown, Pt has received Ceftriaxone & Cefepime in the past w/o issue, 02/04/19) amoxicillin (Verified Allergy, Unknown, 02/04/19) clavulanic acid (Verified Allergy, Unknown, 02/04/19) promethazine (Verified Allergy, Unknown, 02/04/19) propoxyphene (Verified Allergy, Unknown, 02/04/19) ketorolac (Verified Adverse Reaction, Unknown, 11/08/17) tramadol (Verified Adverse Reaction, Unknown, 11/08/17) Past Uidzcka-Jzydsw-Gnfavf Hx Patient Social History Alcohol Use: Past History Alcohol Beverage of Choice: Beer Recreational Drug Use: Yes Drug of Choice: Smokes THC at times for pain Smoking Status: Current Everyday Smoker Cigaretts per day: 1 Type Used: Cigarettes 2nd Hand Smoke Exposure: No Recent Foreign Travel: No Contact w/other who traveled: No Recent Hopitalizations: No Recent Infectious Disease Expo: No Immunizations Up To Date Tetanus Booster (TDap): Unknown Pediatric: No Date of Pneumonia Vaccine: Jul 26, 2009 Date of Influenza Vaccine: Sep 26, 2013 Seasonal Allergies Seasonal Allergies: No Past Medical History Surgeries: Abdominal, Amputation (left AKA), Eye Surgery, Gallbladder, Hyste rectomy, Oophorectomy, Orthopedic Respiratory: COPD, Emphysema, Pneumonia Currently Using CPAP: No Currently Using BIPAP: No Cardiac: Hypertension, Peripheral Vascular Neurological: Headaches /Migraines, Stroke 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: Yes Sexually Transmitted Disease: No HIV/AIDS: No 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 Hysterectomy Genitourinary: UTI-Chronic Gastrointestinal: Gastroesophageal Reflux, Pancreatitis, Hiatal Hernia, Ulcer, Gall Bladder Disease Musculoskeletal: Amputee, Osteoporosis, Fractures HEENT: Cataract Loss of Vision: Denies Hearing Impairment: Denies Psychosocial: Anxiety, Suicide Attempts, Depression History of Blood Disorders: No Adverse Reaction to Blood Tyler: No Family History Alzheimer's disease 19 FATHER 19 MOTHER Asthma 19 FATHER Completed stroke 19 FATHER Deafness or hearing loss 19 FATHER Dementia 19 FATHER Diabetes mellitus 19 FATHER 19 MOTHER Headache disorder 19 FATHER Hypertension 19 FATHER 19 MOTHER Myocardial infarction 19 FATHER 19 MOTHER Respiratory disorder 19 FATHER No Family History of: Kidney disease Heart Disease, COPD, Diabetes (father), Hypertension (mother and father), Stroke Physical Exam Physical Exam Vital Signs Vital Signs - First Documented 09/09/19 09/09/19 16:38 21:45 Temp 36.2 Pulse 72 Resp 18 B/P (MAP) 133/99 (110) Pulse Ox 94 O2 Delivery Room Air O2 Flow Rate 80 FiO2 100 Capillary Refill : Less Than 3 Seconds Height, Weight, BMI Height: 5'1.00" Weight: 82lbs. 0.0oz. 37.310347yw; 12.00 BMI Method:Stated General Appearance: No Apparent Distress, WD/WN Eyes: Bilateral Eye PERRL, Bilateral Eye EOMI HEENT: PERRL/EOMI, Normal ENT Inspection, Pharynx Normal Neck: Full Range of Motion, Non Tender, Supple Respiratory: Crackles, Decreased Breath Sounds, Other (sedated on vent ) Cardiovascular: Regular Rate, Rhythm Neurologic/Psychiatric: Alert Skin: Normal Color, Warm/Dry Lymphatic: No Adenopathy Results Results/Procedures Labs Laboratory Tests 09/09/19 15:50 09/09/19 16:40 09/10/19 02:00 Patient resulted labs reviewed. Assessment/Plan Assessment and Plan Assess & Plan/Chief Complaint Assessment s/p R colon resection for cecal volvulus Acute Respiratory failure after sedation post-op Leukocytosis Positive Opiate and Marijuana on tox screen COPD L leg amputation Hx of chronic UTI Hx of pancreatitis Plan Critical care management Pulmonology for vent management and ICU care Continue Abx DVT prophylaxis OT/PT when tolerable Education on marijuana use Clinical Quality Measures DVT/VTE Risk/Contraindication: Risk Factor Score Per Nursin RFS Level Per Nursing on Admit: 2=Moderate DARONASHLEIGH REES 09/11/19 0708: HPI History of Present Illness: HPI/Chief Complaint CC: Perforated Intestine s/p urgent surgery HPI: This is a 49yoWF who is very chronically ill s/p left above the knee amputation remotely who presents to the ICU after extubation from surgery last night when she came in with abdominal pain found to have a perforated bowel. She had an uncomplicated repair per Dr. Watson and Dr. Jenkins. Pt is sleeping now and does not wish to answer any other questions. Source: patient Past Bugxozc-Dvvalb-Hzgseb Hx Past Med/Social Hx: Reviewed Nursing Past Med/Soc Hx, Reviewed and Corrections made Patient Social History Marrital Status: single Alcohol Use: Denies Use Smoking Status: Current Everyday Smoker Past Medical History Surgeries: Orthopedic Cardiac: Hypertension Gastrointestinal: Chronic Constipation Family History Alzheimer's disease 19 FATHER 19 MOTHER Asthma 19 FATHER Completed stroke 19 FATHER Deafness or hearing loss 19 FATHER Dementia 19 FATHER Diabetes mellitus 19 FATHER 19 MOTHER Headache disorder 19 FATHER Hypertension 19 FATHER 19 MOTHER Myocardial infarction 19 FATHER 19 MOTHER Respiratory disorder 19 FATHER No Family History of: Kidney disease Review of Systems Constitutional: see HPI, weakness Gastrointestinal: abdominal pain Physical Exam Physical Exam General Appearance: No Apparent Distress, WD/WN, Chronically ill, Thin Respiratory: Decreased Breath Sounds Cardiovascular: Regular Rate, Rhythm Assessment/Plan Assessment and Plan Assess & Plan/Chief Complaint Monitor lung status Pain control Diagnosis/Problems Diagnosis/Problems (1) Intractable abdominal pain Status: Resolved (2) Gastric perforation Status: Resolved Supervisory-Addendum Brief Verification & Attestation Participated in pt care: history, MDM, physical Personally performed: exam, history, MDM, supervision of care Care discussed with: Medical Student Procedures: n/a Results interpretation: Verified all documentation Verification and Attestation of Medical Student E/M Service A medical student performed and documented this service in my presence. I reviewed and verified all information documented by the medical student and made modifications to such information, when appropriate. I personally performed the physical exam and medical decision making. Ashleigh Neri Sep 11, 2019,07:08 [facility] Sep 10, 2019 12:03 ASHLEIGH NERI DO Sep 11, 2019 07:08
[2019-09-10] MEDS: morphine INJ 4 MG/ML 1 ML (VIAL/SYRINGE) IV PRN ×3 (12:40→20:15)
--- NOTE | 2019-09-10 12:52 | Consultation-Cardiology ---
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 Watson. Patient did well postoperatively. Cardiology was consulted due to bradycardia during surgery requiring one dose of atropine. When I saw the patient the heart rate was 51 BPM. The patient denied any chest pain, syncope, near-syncope or lightheadedness. She has history of active smoking. She denied any pertinent family history. Review of Systems-Cardiology Review of Systems Constitutional: As described under HPI; No As described under HPI, No no symptoms reported, No chills, No fever, No lightheadedness Eyes: No As described under HPI, No no symptoms reported, No blindness, No blurred vision, No contact lenses, No drainage, No decreased acuity, No foreign body sensation, No pain, No vision change Ears/Nose/Throat: No As described under HPI, No no symptoms reported, No chronic hearing loss, No ear discharge, No ear pain, No nasal drainage, No ulcerations Respiratory: No no symptoms reported; As described under HPI; No As described under HPI, No cough, No orthopnea, No shortness of breath, No SOB with excertion Cardiovascular: No no symptoms reported; As described under HPI; No As described under HPI, No chest pain, No edema, No irregular heart rate, No lightheadedness, No palpitations Gastrointestinal: No no symptoms reported, No As described under HPI, No abdomen distended; abdominal pain; No blood streaked bowels, No constipation, No diarrhea, No nausea, No vomiting, No stool coloration changes Genitourinary: No As described under HPI, No burning, No dysuria, No discharge, No frequency, No flank pain, No hematuria, No urgency : Yes : No Skin: No rash, No skin related problems, No ulcerations Psychiatric/Neurological: No anxiety, No depression, No seizure, No focal weakness, No syncope Hematologic: No bleeding abnormalities WCM-Xbqldv-Armlbg Hx Patient Social History Alcohol Use: Past History Recreational Drug Use: Yes Drug of Choice: Smokes THC at times for pain Smoking Status: Current Everyday Smoker Cigaretts per day: 1 Type Used: Cigarettes 2nd Hand Smoke Exposure: No Recent Foreign Travel: No Recent Infectious Disease Expo: No Hospitalization with Isolation: Denies Immunizations Up To Date Tetanus Booster (TDap): Unknown Date of Pneumonia Vaccine: Jul 26, 2009 Date of Influenza Vaccine: Sep 26, 2013 Past Medical History PMH As described under Assessment. Family Medical History Family History: Alzheimer's disease 19 FATHER 19 MOTHER Asthma 19 FATHER Completed stroke 19 FATHER Deafness or hearing loss 19 FATHER Dementia 19 FATHER Diabetes mellitus 19 FATHER 19 MOTHER Headache disorder 19 FATHER Hypertension 19 FATHER 19 MOTHER Myocardial infarction 19 FATHER 19 MOTHER Respiratory disorder 19 FATHER No Family History of: Kidney disease Allergies and Home Medications Allergies Coded Allergies: ofloxacin (Verified Allergy, Mild, 02/04/19) Penicillins (Verified Allergy, Unknown, Pt has received Ceftriaxone & Cefepime in the past w/o issue, 02/04/19) amoxicillin (Verified Allergy, Unknown, 02/04/19) clavulanic acid (Verified Allergy, Unknown, 02/04/19) promethazine (Verified Allergy, Unknown, 02/04/19) propoxyphene (Verified Allergy, Unknown, 02/04/19) ketorolac (Verified Adverse Reaction, Unknown, 11/08/17) tramadol (Verified Adverse Reaction, Unknown, 11/08/17) Home Medications Albuterol Sulfate 1 Puff Puff, 2 PUFF IH Q4H PRN for SHORTNESS OF BREATH, (Reported) Budesonide/Formoterol Fumarate 10.2 Gm Hfa.aer.ad, 2 PUFF IH BID, (Reported) Cetirizine HCl 10 Mg Tablet, 10 MG PO DAILY, (Reported) LAST FILLED #30 07-21-19 Cyclobenzaprine HCl 10 Mg Tablet, 10 MG PO HS, (Reported) Dicyclomine HCl 10 Mg Capsule, 20 MG PO TID PRN for CRAMPS, (Reported) TAKES 2 (10MG) CAPSULES Fluticasone Propionate 16 Gm [place].susp, 2 SPRAYS NS DAILY, (Reported) Gabapentin 800 Mg Tablet, 800 MG PO QID, (Reported) Hydrocodone Bit/Acetaminophen 1 Tab Tab, 1 TAB PO Q6HR PRN for PAIN-SEVERE (8- 10) Prescribed by: VALENTINO WATSON on 09/11/19 1414 Lidocaine 1 Each Adh..patch, TOP DAILY, (Reported) LAST FILLED #30 07-28-19 Lipase/Protease/Amylase 1 Each Capsule.dr, 1 CAP PO TIDAC, (Reported) LAST FILLED #30 09-08-19 Multivit-Min/FA/Lycopene/Lut 1 Each Tablet, 1 TAB PO DAILY, (Reported) Prednisone 20 Mg Tab, PO UD, (Reported) TAKE 1 TAB DAILY X 14 DAYS THEN TAKE 1/2 TAB DAILY X 14 DAYS FILLED #21 Ranitidine HCl 150 Mg Tablet, 150 MG PO BID, (Reported) LAST FILLED #60 07-21-19 Patient Home Medication List Home Medication List Reviewed: Yes Physical Exam-Cardiology Physical Exam Vital Signs/I&O 09/12/19 00:00 Intake Total 840 ml Balance 840 ml Capillary Refill : Less Than 3 Seconds Constitutional: appears stated age, AAO x 3; No apparent distress; well- developed, well-nourished HEENT: PERRL; No discharge; hearing is well preserved, oral hygience is good; No ulceration, No xanthelasmas are seen Neck: No carotid bruit; carotid pulses are 2 + bilaterally Respiratory: chest is bilaterally symmetric, lungs clear to auscultation Cardiovascular: regular rate-rhythm, bradycardia, S1 and S2 Gastrointestinal: soft, tenderness, audible bowel sounds; No spleenomegaly Rectal: deferred Extremities: normal range of motion, non-tender, normal inspection; No clubbing, No cyanosis; no lower extremity edema bilateral; No significant edema Neurologic/Psychiatric: no motor/sensory deficits, alert, normal mood/affect, oriented x 3, power is 5/5 both on sides Skin: normal color, warm/dry; No rash, No ulcerations Data Review Labs Microbiology 09/10/19 MRSA Screen - Final, Complete MRSA not isolated 09/09/19 Blood Culture - Preliminary, Resulted No growth ECG Impression ECG Initial ECG Rhythm: S.Jamey A/P-Cardiology Assessment/Admission Diagnosis Cecal volvulus, status post abdominal surgery, Active smoking, Sinus bradycardia Plan Sinus bradycardia without symptoms. Patient is not on rate controlling agents. Will recommend echocardiogram. Will likely require clinical follow-up and if symptoms develop with bradycardia, she may be a candidate for permanent pacemaker. Active smoking: Smoking cessation was strongly recommended however the patient is not keen on smoking cessation. Cecal volvulus, status post abdominal surgery, deferred to the surgical team. Thank you for your consultation. Please call me if you have any questions. Faith Ramirez MD, FACP, FACC, FSCAI, FHRS, CCDS Interventional Cardiology Cardiac Electrophysiology Vascular Medicine and Endovascular Interventions Clinical Quality Measures DVT/VTE Risk/Contraindication: Risk Factor Score Per Nursin RFS Level Per Nursing on Admit: 2=Moderate Shant RAMIREZ MD Sep 10, 2019 12:52
--- NOTE | 2019-09-10 13:10 | NUR ---
THIS NURSE NOTIFIED DR CLEMENTE PT C/O PAIN. ORDER GIVEN FOR ORAL PAIN MED.
[2019-09-10] MEDS: HYDROcodone/APAP 5 MG/325 MG (LORTAB) TAB PO PRN (14:14)
[2019-09-10] MEDS ORDERED: PRD20T PO (15:08)
--- NOTE | 2019-09-10 15:09 | NUR ---
UNABLE TO SPEAK WITH THE PATIENT AT THIS TIME. SHE WAS HERE ON 09-02-19 AND I WENT OVER HER MEDICATIONS WITH HER THEN. I REVIEWED THE MED REC THEY WERE REPORTED PREVIOUSLY. I CALLED [facility] AND [facility] TO SEE IF ANYTHING HAS BEEN FILLED SINCE HER PREVIOUS ADMISSION. [facility] FILLED #30 CAPS FOR CREON 09-08-19 AND PREDNISONE #21 1 DAILY X 14 DAYS THEN 1/2 DAILY X 14 DAYS (EXT MED HX IS SHOWING INCORRECT DAY SUPPLY) [facility] DOES NOT THINK THE PATIENT RECEIVED ANY DICYCLOMINE ON THE . I LEFT DICYCLOMINE IT WAS REPORTED FROM HER PREVIOUS ADMISSION.
--- NOTE | 2019-09-10 16:21 | Progress Note - Surgery ---
DANE MOSELEY,MED STUDENT 09/10/19 1620: Subjective Date Seen by a Provider: Sep 10, 2019 Time Seen by a Provider: 12:31 Subjective/Events-last exam Patient seen and examined this afternoon. Stomach pain is much improved from yesterday. She has no acute complaints at this time. Review of Systems General: No Chills, No Fatigue HEENT: No Head Aches Pulmonary: Dyspnea, Cough Cardiovascular: No: Chest Pain, Palpitations, Edema Gastrointestinal: Abdominal Pain (mild); No: Nausea, Vomiting Focused Exam Lactate Level 09/09/19 19:45: Lactic Acid Level 1.32 Objective Exam Vital Signs Date Time Temp Pulse Resp B/P (MAP) Pulse Ox O2 Delivery O2 Flow Rate FiO2 09/10/19 16:00 62 12 81/61 (68) 94 Nasal Cannula 2.00 09/10/19 15:50 93 Nasal Cannula 2.00 09/10/19 15:00 58 25 99/69 (79) 93 Nasal Cannula 2.00 09/10/19 14:00 71 23 108/74 (85) 97 Nasal Cannula 2.00 09/10/19 13:00 62 2 109/74 (86) 90 Nasal Cannula 2.00 09/10/19 12:18 53 09/10/19 12:00 51 12 101/61 (74) 96 Nasal Cannula 2.00 09/10/19 12:00 95 Nasal Cannula 2.00 09/10/19 11:40 97 Nasal Cannula 2.00 09/10/19 11:00 48 12 96/64 (75) 97 Nasal Cannula 2.00 09/10/19 10:00 56 18 103/66 (78) 100 Nasal Cannula 2.00 09/10/19 09:00 50 14 101/67 (78) 98 Nasal Cannula 2.00 09/10/19 08:00 47 17 91/62 (72) 93 Nasal Cannula 2.00 09/10/19 08:00 97 Nasal Cannula 2.00 09/10/19 07:00 60 09/10/19 07:00 59 15 117/71 (86) 93 Nasal Cannula 2.00 09/10/19 06:00 46 10 126/75 (92) 95 Nasal Cannula 2.00 09/10/19 05:00 61 20 93 09/10/19 05:00 52 17 133/89 (104) 92 Nasal Cannula 2.00 09/10/19 04:50 99 Nasal Cannula 4.00 09/10/19 04:00 Mechanical Ventilator 60 09/10/19 04:00 47 16 84/60 (68) 97 Mechanical Ventilator 35.00 09/10/19 03:07 116/91 09/10/19 03:00 50 15 112/82 (92) 100 Mechanical Ventilator 35.00 09/10/19 03:00 50 16 100 35 09/10/19 02:56 Mechanical Ventilator 35.00 09/10/19 02:00 35.4 09/10/19 02:00 78 18 125/87 (100) 100 Mechanical Ventilator 60.00 09/10/19 01:00 52 15 109/76 (87) 100 Mechanical Ventilator 60.00 09/10/19 01:00 52 09/10/19 00:00 Mechanical Ventilator 60 09/10/19 00:00 53 15 126/86 (99) 100 Mechanical Ventilator 80.00 09/10/19 00:00 Mechanical Ventilator 60.00 09/09/19 23:59 36.2 09/09/19 23:36 57 16 100 80 09/09/19 23:30 57 15 133/92 (106) 100 Mechanical Ventilator 80.00 09/09/19 23:00 60 15 150/97 (114) 100 Mechanical Ventilator 80.00 09/09/19 22:45 60 16 164/112 (129) 100 Mechanical Ventilator 80.00 09/09/19 22:30 62 16 164/111 (128) 100 Mechanical Ventilator 80.00 09/09/19 22:20 Mechanical Ventilator 80 09/09/19 22:20 Mechanical Ventilator 60.00 09/09/19 22:20 36.2 16 140/98 (112) 100 Mechanical Ventilator 80 09/09/19 22:15 Mechanical Ventilator 80 09/09/19 22:15 63 16 140/108 (119) 100 Mechanical Ventilator 80.00 09/09/19 22:10 16 136/92 (107) 100 Mechanical Ventilator 80 09/09/19 22:00 16 128/90 (103) 100 Mechanical Ventilator 80 09/09/19 22:00 Mechanical Ventilator 80 09/09/19 21:56 126/65 09/09/19 21:52 70 09/09/19 21:50 16 112/85 (94) 100 Mechanical Ventilator 80 09/09/19 21:45 Mechanical Ventilator 80 09/09/19 21:45 36.2 17 124/93 (103) 100 Mechanical Ventilator 80 09/09/19 21:45 64 16 100 100 09/09/19 20:30 36.2 50 18 129/89 (110) 93 Room Air 09/09/19 20:00 36.2 72 18 133/99 94 Room Air 09/09/19 16:38 36.2 72 18 133/99 (110) 94 Room Air I & O 09/10/19 07:00 Intake Total 2540 ml Output Total 1850 ml Balance 690 ml Capillary Refill : Less Than 3 Seconds General Appearance: No Apparent Distress, Chronically ill, Thin HEENT: PERRL/EOMI Respiratory: No Respiratory Distress, Decreased Breath Sounds, Other (sedated on vent ) Cardiovascular: Regular Rate, Rhythm, No Murmur Peripheral Pulses: 2+ Dorsalis Pedis (R), 2+ Radial Pulses (R), 2+ Radial Pulses (L) Gastrointestinal: No distended, No guarding, No rebound; tenderness (mild) Neurologic/Psychiatric: Alert, Oriented x3, Normal Mood/Affect Skin: Warm/Dry Results Lab Laboratory Tests 09/09/19 16:40: White Blood Count 8.8, Red Blood Count 4.13L, Hemoglobin 12.4, Hematocrit 41, Mean Corpuscular Volume 99, Mean Corpuscular Hemoglobin 30, Mean Corpuscular Hemoglobin Concent 30L, Red Cell Distribution Width 19.1H, Platelet Count 485H, Mean Platelet Volume 10.4, Neutrophils (%) (Auto) 89H, Lymphocytes (%) (Auto) 5L , Monocytes (%) (Auto) 6, Eosinophils (%) (Auto) 0, Basophils (%) (Auto) 0, Neutrophils # (Auto) 7.8, Lymphocytes # (Auto) 0.4L, Monocytes # (Auto) 0.6, Eosinophils # (Auto) 0.0, Basophils # (Auto) 0.0, Neutrophils % (Manual) 86, Lymphocytes % (Manual) 6, Monocytes % (Manual) 5, Band Neutrophils 3, Polychromasia SLIGHT, Hypochromasia SLIGHT, Anisocytosis MODERATE, B-Type Natriuretic Peptide 43.1, Lipase 54 09/09/19 16:55: Urine Color YELLOW, Urine Clarity CLEAR, Urine pH 6.5, Urine Specific [place] 1.015L, Urine Protein NEGATIVE, Urine Glucose (UA) NEGATIVE, Urine Ketones NEGATIVE, Urine Nitrite NEGATIVE, Urine Bilirubin NEGATIVE, Urine Urobilinogen 0.2, Urine Leukocyte Esterase NEGATIVE, Urine RBC (Auto) NEGATIVE, Urine RBC NONE, Urine WBC RARE, Urine Squamous Epithelial Cells 0-2, Urine Crystals PRESENTH, Urine Amorphous Sediment FEW PATY URATESH, Urine Bacteria TRACE, Urine Casts NONE, Urine Mucus NEGATIVE, Urine Culture Indicated NO, Urine Opiates Screen POSITIVEH, Urine Oxycodone Screen NEGATIVE, Urine Methadone Screen NEGATIVE, Urine Propoxyphene Screen NEGATIVE, Urine Barbiturates Screen NEGATIVE, Ur Tricyclic Antidepressants Screen NEGATIVE, Urine Phencyclidine Screen NEGATIVE, Urine Amphetamines Screen NEGATIVE, Urine Methamphetamines Screen NEGATIVE, Urine Benzodiazepines Screen NEGATIVE, Urine Cocaine Screen NEGATIVE, Urine Cannabinoids Screen POSITIVEH 09/09/19 19:45: Lactic Acid Level 1.32 09/09/19 23:05: Triglycerides Level 107 09/09/19 23:21: Blood Gas Puncture Site R RAD, Blood Gas Patient Temperature 36.2, Arterial Blood pH 7.32*L, Arterial Blood Partial Pressure CO2 56H, Arterial Blood Partial Pressure O2 339H, Arterial Blood HCO3 28H, Arterial Blood Total CO2 29.8, Arterial Blood Oxygen Saturation 100, Arterial Blood Base Excess 2.3, Marino Test YES-POS, Blood Gas Ventilator Setting YES, Blood Gas Inspired Oxygen 80% 09/10/19 02:00: White Blood Count 24.8H, Red Blood Count 4.28L, Hemoglobin 12.7, Hematocrit 42, Mean Corpuscular Volume 99, Mean Corpuscular Hemoglobin 30, Mean Corpuscular Hemoglobin Concent 30L, Red Cell Distribution Width 19.0H, Platelet Count 443H, Mean Platelet Volume 10.4, Neutrophils (%) (Auto) 91H, Lymphocytes (%) (Auto) 2L , Monocytes (%) (Auto) 7, Eosinophils (%) (Auto) 0, Basophils (%) (Auto) 0, Neutrophils # (Auto) 22.6H, Lymphocytes # (Auto) 0.5L, Monocytes # (Auto) 1.6H, Eosinophils # (Auto) 0.0, Basophils # (Auto) 0.0, Neutrophils % (Manual) 86, Lymphocytes % (Manual) 1, Monocytes % (Manual) 6, Eosinophils % (Manual) 0, Basophils % (Manual) 0, Band Neutrophils 7, Polychromasia SLIGHT, Hypochromasia MODERATE, Anisocytosis MODERATE, Microcytosis SLIGHT, Macrocytosis MODERATE, Tear Drop Cells SLIGHT, Sodium Level 136, Potassium Level 4.7, Chloride Level 100, Carbon Dioxide Level 21, Anion Gap 15H, Blood Urea Nitrogen 32H, Creatinine 1.39H, Estimat Glomerular Filtration Rate 40, BUN/Creatinine Ratio 23, Glucose Level 112H, Calcium Level 8.7, Corrected Calcium 9.0, Magnesium Level 1.9, Total Bilirubin 0.2, Aspartate Amino Transf (AST/SGOT) 11, Alanine Aminotransferase (ALT/SGPT) 18, Alkaline Phosphatase 60, Total Protein 6.2L, Albumin 3.6 09/10/19 02:50: Blood Gas Puncture Site L RAD, Blood Gas Patient Temperature 36.4, Arterial Blood pH 7.42, Arterial Blood Partial Pressure CO2 48H, Arterial Blood Partial Pressure O2 139H, Arterial Blood HCO3 31H, Arterial Blood Total CO2 32.7H, A rterial Blood Oxygen Saturation 99, Arterial Blood Base Excess 6.7H, Marino Test YES-POS, Blood Gas Ventilator Setting YES, Blood Gas Inspired Oxygen 60% 09/10/19 12:11: Glucometer 72 Microbiology 09/09/19 Gram Stain - Final, Resulted 09/09/19 Sputum Culture - Preliminary, Resulted Culture In Progress 09/09/19 Blood Culture - Preliminary, Resulted No growth Assessment/Plan Assessment/Plan Assessment/Plan Assessment: -s/p right colon resection Plan: Encouraged patient to continue using IS. Continue IV fluids, pain control and antibiotics. She will most likely be able to go home soon, as long as her pain is controlled and she is eating/having normal bowel movements. Clinical Quality Measures DVT/VTE Risk/Contraindication: Risk Factor Score Per Nursin RFS Level Per Nursing on Admit: 2=Moderate VALENTINO WATSON DO 09/11/19 1030: Subjective Time Seen by a Provider: 12:31 Subjective/Events-last exam Pt seen and examined, states she feels better. Objective Exam General Appearance: No Apparent Distress Respiratory: No Accessory Muscle Use, Decreased Breath Sounds Gastrointestinal: soft; No distended; tenderness (mild) Assessment/Plan Assessment/Plan Assessment/Plan S/P R colectomy Increase fluids, increase diet slowly, switch to PO pain meds Supervisory-Addendum Brief Verification & Attestation Participated in pt care: history, MDM, physical Personally performed: exam, history, MDM Care discussed with: Medical Student Procedures: n/a Verification and Attestation of Medical Student E/M Service A medical student performed and documented this service in my presence. I reviewed and verified all information documented by the medical student and made modifications to such information, when appropriate. I personally performed the physical exam and medical decision making. Valentino Watson, Sep 11, 2019,10:30 DANE MOSELEY,MED STUDENT Sep 10, 2019 16:20 VALENTINO WATSON DO Sep 11, 2019 10:30
--- NOTE | 2019-09-10 18:15 | NUR ---
ORDER GIVEN TO RESTART HOME MEDS PER DR CLEMENTE.
[2019-09-10] MEDS ORDERED: DICYCLOMINE 10 MG (BENTYL) CAP PO PRN (18:45)
[2019-09-10] MEDS: GABAPENTIN 400 MG (NEURONTIN) CAP PO SCH (19:42)
[2019-09-10] MEDS: FLUTICASONE NASAL SPRAY (FLONASE) 16 GM BTL NS SCH (20:26)
[2019-09-10] MEDS ORDERED: CYCLOBENZAPRINE 10 MG (FLEXERIL) TAB PO SCH (21:00)
--- NOTE | 2019-09-10 21:43 | NUR ---
REPORT RECEIVED. PT A/O .C/O PAIN. PAIN MEDS GIVEN ORDERED. PT HAS TRANSFER ORDERS. REPORT CALLED TO 4TH FLOOR RN. PATIENT TRANSFERRED TO 4TH FLOOR AT APPROX 2030. ATTACHED TO THE MONITOR AND 2L OXYGEN. DENIES NEEDS. ALL QUESTIONS ANSWERED. ALL PATIENTS BELONGINGS TAKEN WITH THE PATIENT.
[2019-09-11] VITALS: BP 91/53
[2019-09-11] MEDS: morphine INJ 4 MG/ML 1 ML (VIAL/SYRINGE) IV PRN (02:00)
[2019-09-11] MEDS: HYDROcodone/APAP 5 MG/325 MG (LORTAB) TAB PO PRN ×2 (02:00→08:46)
[2019-09-11] MEDS: RT-ALBUTEROL/IPRATROPIUM 3 ML (DUONEB) VIAL INH SCH ×4 (02:25→10:32)
[2019-09-11] MEDS: RT-ADVAIR HFA 45/21 MCG PER PUFF IH SCH ×2 (02:27→07:10)
[2019-09-11 03:33] VITALS: BP 100/59
[2019-09-11] MEDS: NS IV 1000 ML 1,000 ML IV SCH (05:11)
[2019-09-11] MEDS: metroNIDAZOLE 500 MG/100 ML IVPB (PRE-MIX) IV SCH (05:18)
[2019-09-11] MEDS: LIPASE/AMYLASE/PROTEASE (PANCRELIPASE) 5,000 UNITS CAP PO SCH ×2 (05:20→12:12)
[2019-09-11 06:16] LABS: BASOPHILS % (AUTO) 0 % (0-10); EOSINOPHILS # (AUTO) 0.1 10^3/uL (0.0-0.3); EOSINOPHILS % (AUTO) 1 % (0-10); HEMATOCRIT 35 % (35-52); LYMPHOCYTES # (AUTO) 1.6 X 10^3 (1.0-4.0); LYMPHOCYTES % (AUTO) 19 % (12-44); MEAN CORPUSCULAR HEMOGLOBIN 29 PG (25-34); MEAN CORPUSCULAR HGB CONC 29 G/DL (32-36); MEAN CORPUSCULAR VOLUME 101 FL (80-99); MEAN PLATELET VOLUME 10.4 FL (7.4-10.4); MONOCYTES # (AUTO) 1.3 X 10^3 (0.0-1.0); MONOCYTES % (AUTO) 15 % (0-12); NEUTROPHILS # (AUTO) 5.4 X 10^3 (1.8-7.8); NEUTROPHILS % (AUTO) 65 % (42-75); PLATELET COUNT 307 10^3/uL (130-400); WHITE BLOOD COUNT 8.3 10^3/uL (4.3-11.0)
[2019-09-11 06:27] LABS: HEMOGLOBIN 10.1 G/DL (11.5-16.0)
[2019-09-11] MEDS: POTASSIUM CL 10MEQ/50ML IVPB 50 ML IV SCH (06:44)
[2019-09-11] MEDS: KCL 20 MEQ TAB (K-DUR) PO SCH (06:45)
[2019-09-11] MEDS: MAGNESIUM 1 GM/100 ML IVPB 100 ML IV SCH (06:46)
[2019-09-11 06:48] LABS: CALCIUM 7.9 MG/DL (8.5-10.1); CREATININE SERUM 1.11 MG/DL (0.60-1.30); MAGNESIUM 1.7 MG/DL (1.6-2.4); PHOSPHORUS 2.9 MG/DL (2.3-4.7); POTASSIUM 4.4 MMOL/L (3.6-5.0)
[2019-09-11] MEDS ORDERED: MULTIVIT W/MINERALS TAB (THERAGRAN M) PO SCH (07:00)
[2019-09-11] MEDS ORDERED: predniSONE 10 MG TAB PO SCH (07:00)
--- NOTE | 2019-09-11 07:33 | Progress Note - Surgery ---
DANE MOSELEY,MED STUDENT 09/11/19 0733: Subjective Date Seen by a Provider: Sep 11, 2019 Time Seen by a Provider: 07:16 Subjective/Events-last exam Patient seen and examined this morning. RT is giving her a breathing treatment while I am in the room. She states she has been having lower abdominal pain since yesterday. She is also ready for her pleitez to come out. Review of Systems General: No Chills, No Night Sweats HEENT: No Head Aches, No Dysphasia Pulmonary: Dyspnea, Cough Cardiovascular: No: Chest Pain, Palpitations, Edema Gastrointestinal: Abdominal Pain; No: Nausea, Vomiting Focused Exam Lactate Level 09/09/19 19:45: Lactic Acid Level 1.32 Objective Exam Vital Signs Date Time Temp Pulse Resp B/P (MAP) Pulse Ox O2 Delivery O2 Flow Rate FiO2 09/11/19 07:12 93 Nasal Cannula 2.00 09/11/19 03:33 36.2 54 16 100/59 (73) 93 Nasal Cannula 2.00 09/11/19 02:30 36.0 09/11/19 02:30 36.0 09/11/19 02:25 94 Nasal Cannula 2.00 09/11/19 02:00 36.0 09/11/19 02:00 36.0 09/11/19 00:00 36.0 55 16 91/53 (66) 97 Nasal Cannula 2.00 09/10/19 21:06 36.4 68 20 144/79 (100) 96 Nasal Cannula 2.00 09/10/19 20:28 36.4 09/10/19 20:00 61 12 129/83 (98) 92 Nasal Cannula 2.00 09/10/19 20:00 92 Nasal Cannula 2.00 09/10/19 19:00 60 12 116/77 (90) 94 Nasal Cannula 2.00 09/10/19 19:00 61 09/10/19 18:50 96 Nasal Cannula 2.00 09/10/19 18:00 59 35 112/77 (89) 94 Nasal Cannula 2.00 09/10/19 17:00 73 12 99/62 (74) 92 Nasal Cannula 2.00 09/10/19 16:27 35.6 09/10/19 16:00 62 12 81/61 (68) 94 Nasal Cannula 2.00 09/10/19 16:00 92 Nasal Cannula 2.00 09/10/19 15:50 93 Nasal Cannula 2.00 09/10/19 15:00 58 25 99/69 (79) 93 Nasal Cannula 2.00 09/10/19 14:00 71 23 108/74 (85) 97 Nasal Cannula 2.00 09/10/19 13:00 62 2 109/74 (86) 90 Nasal Cannula 2.00 09/10/19 12:18 53 09/10/19 12:00 51 12 101/61 (74) 96 Nasal Cannula 2.00 09/10/19 12:00 95 Nasal Cannula 2.00 09/10/19 11:40 97 Nasal Cannula 2.00 09/10/19 11:00 48 12 96/64 (75) 97 Nasal Cannula 2.00 09/10/19 10:00 56 18 103/66 (78) 100 Nasal Cannula 2.00 09/10/19 09:00 50 14 101/67 (78) 98 Nasal Cannula 2.00 09/10/19 08:00 47 17 91/62 (72) 93 Nasal Cannula 2.00 09/10/19 08:00 37.2 09/10/19 08:00 97 Nasal Cannula 2.00 I & O 09/11/19 07:00 Intake Total 1200 ml Output Total 1725 ml Balance -525 ml Capillary Refill : Less Than 3 Seconds General Appearance: No Apparent Distress, Chronically ill, Thin HEENT: PERRL/EOMI Neck: Non Tender; No Lymphadenopathy (L), No Lymphadenopathy (R) Respiratory: Accessory Muscle Use, Decreased Breath Sounds Cardiovascular: Regular Rate, Rhythm, No Murmur Peripheral Pulses: 2+ Dorsalis Pedis (R), 2+ Radial Pulses (R), 2+ Radial Pulses (L) Gastrointestinal: No distended, No guarding, No rebound; tenderness (lower abdomen) Extremity: Other (left AKA) Neurologic/Psychiatric: Alert, Oriented x3 Skin: Normal Color, Damp Results Lab Laboratory Tests 09/10/19 12:11: Glucometer 72 09/11/19 05:49: White Blood Count 8.3, Red Blood Count 3.44L, Hemoglobin 10.1#L, Hematocrit 35, Mean Corpuscular Volume 101H, Mean Corpuscular Hemoglobin 29, Mean Corpuscular Hemoglobin Concent 29L, Red Cell Distribution Width 19.0H, Platelet Count 307, Mean Platelet Volume 10.4, Neutrophils (%) (Auto) 65, Lymphocytes (%) (Auto) 19, Monocytes (%) (Auto) 15H, Eosinophils (%) (Auto) 1, Basophils (%) (Auto) 0, Neutrophils # (Auto) 5.4, Lymphocytes # (Auto) 1.6, Monocytes # (Auto) 1.3H, Eosinophils # (Auto) 0.1, Basophils # (Auto) 0.0, Sodium Level 140, Potassium Level 4.4, Chloride Level 110H, Carbon Dioxide Level 23, Anion Gap 7, Blood Urea Nitrogen 21H, Creatinine 1.11, Estimat Glomerular Filtration Rate 52, BUN/Creatinine Ratio 19, Glucose Level 89, Calcium Level 7.9L, Phosphorus Level 2.9, Magnesium Level 1.7, Triglycerides Level 70 Microbiology 09/09/19 Gram Stain - Final, Resulted 09/09/19 Sputum Culture - Preliminary, Resulted Culture In Progress 09/09/19 Blood Culture - Preliminary, Resulted No growth Assessment/Plan Assessment/Plan Assessment/Plan Assessment: -s/p right colon resection Plan: Encouraged patient to continue using IS. Continue breathing treatments, IV fluids, pain control and antibiotics. Clinical Quality Measures DVT/VTE Risk/Contraindication: Risk Factor Score Per Nursin RFS Level Per Nursing on Admit: 2=Moderate LAMBERT WATSON DO 09/11/19 1412: Subjective Time Seen by a Provider: 14:02 Subjective/Events-last exam Pt seen and examined, wants to go home. Hungry and pain controlled with oral meds. Objective Exam Respiratory: Decreased Breath Sounds Gastrointestinal: No distended; tenderness (lower abdomen) Assessment/Plan Assessment/Plan Assessment/Plan D/C IV, D/C home Supervisory-Addendum Brief Verification & Attestation Participated in pt care: history, MDM, physical Personally performed: exam, history, MDM Care discussed with: Medical Student Procedures: n/a Verification and Attestation of Medical Student E/M Service A medical student performed and documented this service in my presence. I reviewed and verified all information documented by the medical student and made modifications to such information, when appropriate. I personally performed the physical exam and medical decision making. Lambert Watson, Sep 11, 2019,14:12 DANE MOSELEY,MED STUDENT Sep 11, 2019 07:33 LAMBERT WATSON DO Sep 11, 2019 14:12
[2019-09-11 08:00] VITALS: BP 102/64
[2019-09-11] MEDS: GABAPENTIN 400 MG (NEURONTIN) CAP PO SCH ×2 (08:33→12:12)
[2019-09-11] MEDS: CIPROFLOXACIN 400 MG/D5W 200 ML (PRE-MIX) IV SCH (08:33)
[2019-09-11] MEDS: NICOTINE 21 MG (NICODERM) PATCH TD SCH (08:34)
--- NOTE | 2019-09-11 08:47 | NUR ---
patient currently sleeping at this time. patient asked this Rn for IV pain medication. this Rn told her we would do oral for right now with her being so lethargic as is.
[2019-09-11] MEDS ORDERED: ANIDULAFUNGIN INJECTION 100 MG in NS (IVPB) 100 ML IV SCH (09:00)
[2019-09-11] MEDS ORDERED: LORATADINE (CLARITIN) 10 MG TAB PO SCH (09:00)
[2019-09-11] MEDS ORDERED: FAMOTIDINE 20 MG (PEPCID) TABLET PO SCH (09:00)
--- NOTE | 2019-09-11 09:42 | Physical Therapy Daily Note ---
PT Daily Note-Current Subjective Patient agrees to PT. She is demanding that the pleitez catheter be removed. Mental Status Attachments: Oxygen, Pleitez Catheter, IV Transfers SCALE: Activities may be completed with or without assistive devices. 5-Sooxdwjdvy-yjjfyua completes the activity by him/herself with no assistance from a helper. 5-Set-up or Clean-up Assistance-helper sets up or cleans up; patient completes activity. [place] assists only prior to or following the activity. 4-Supervision or Touching Assistance-helper provides verbal cues and/or touching/steadying and/or contact guard assistance as patient completes activity. Assistance may be provided throughout the activity or intermittently. 3-Partial/Moderate Assistance-helper does LESS THAN HALF the effort. [place] l ifts, holds or supports trunk or limbs, but provides less than half the effort. 2-Substantial/Maximal Assistance-helper does MORE THAN HALF the effort. [place] lifts or holds trunk or limbs and provides more than half the effort. 7-Sszlmhjhe-idkehy does ALL the effort. Patient does none of the effort to complete the activity. Or, the assistance of 2 or more helpers is required for t he patient to complete the activity. If activity was not attempted, code reason: 7-Patient Refused. 9-Not Applicable-not attempted and the patient did not perform the activity before the current illness, exacerbation or injury. 10-Not Attempted due to Environmental Limitations-(lack of equipment, weather restraints, etc.). 88-Not Attempted due to Medical Conditions or Safety Concerns. Roll Left & Right (QC): 4 Sit to Lying (QC): 4 Sit to Stand (QC): 2 Chair/Zgb-ig-Uopcl Xfer(QC): 2 transfer to right due to left AKA Exercises Supine Ex: Ankle pumps, Heel Slides, Straight leg raise Supine Reps: 12 Seated Therapy Exercises: Ankle pumps, Long arc quads Seated Reps: 25 (right LE) Assessment Patient up in recliner with needs met. Patient ceases treatment. RN in to assess patient. PT Long-Term Goals Meat Slicer Goals PT Meat Slicer Goals Time Frame: Sep 24, 2019 Roll Left & Right (QC): 6 Sit to Lying (QC): 6 Lying-Sitting on Side/Bed(QC): 6 Chair/Ocr-jb-Orbqj Xfer(QC): 6 Toilet Transfer (QC): 6 PT Plan Treatment/Plan Treatment Plan: Continue Plan of Care Treatment Plan: Bed Mobility, Education, Functional Activity Jeaneth, Functional Strength, Safety, Therapeutic Exercise, Transfers Treatment Duration: Sep 24, 2019 Frequency: 5 times per week Estimated Hrs Per Day: .25 hour per day Patient and/or Family Agrees t: Yes Time/GCodes Time In: 852 Time Out: 900 Total Billed Treatment Time: 8 Total Billed Treatment 1 visit EX 8 min VICENTA RALPH PT Sep 11, 2019 09:42
[2019-09-11] MEDS: FLUTICASONE NASAL SPRAY (FLONASE) 16 GM BTL NS SCH (10:17)
--- NOTE | 2019-09-11 10:52 | Pulmonary Progress Note ---
Subjective Time Seen by a Provider: 10:52 Sepsis Event Evaluation Height, Weight, BMI Height: 5'1.00" Weight: 82lbs. 0.0oz. 37.859811bx; 12.00 BMI Method:Stated Focused Exam Lactate Level 09/09/19 19:45: Lactic Acid Level 1.32 Exam Exam Vital Signs Date Time Temp Pulse Resp B/P (MAP) Pulse Ox O2 Delivery O2 Flow Rate FiO2 09/11/19 10:33 88 Nasal Cannula 2.00 09/11/19 08:00 36.4 64 18 102/64 (77) 91 Nasal Cannula 2.00 09/11/19 07:12 93 Nasal Cannula 2.00 09/11/19 03:33 36.2 54 16 100/59 (73) 93 Nasal Cannula 2.00 09/11/19 02:30 36.0 09/11/19 02:30 36.0 09/11/19 02:25 94 Nasal Cannula 2.00 09/11/19 02:00 36.0 09/11/19 02:00 36.0 09/11/19 00:00 36.0 55 16 91/53 (66) 97 Nasal Cannula 2.00 09/10/19 21:06 36.4 68 20 144/79 (100) 96 Nasal Cannula 2.00 09/10/19 20:28 36.4 09/10/19 20:00 61 12 129/83 (98) 92 Nasal Cannula 2.00 09/10/19 20:00 92 Nasal Cannula 2.00 09/10/19 19:00 60 12 116/77 (90) 94 Nasal Cannula 2.00 09/10/19 19:00 61 09/10/19 18:50 96 Nasal Cannula 2.00 09/10/19 18:00 59 35 112/77 (89) 94 Nasal Cannula 2.00 09/10/19 17:00 73 12 99/62 (74) 92 Nasal Cannula 2.00 09/10/19 16:27 35.6 09/10/19 16:00 62 12 81/61 (68) 94 Nasal Cannula 2.00 09/10/19 16:00 92 Nasal Cannula 2.00 09/10/19 15:50 93 Nasal Cannula 2.00 09/10/19 15:00 58 25 99/69 (79) 93 Nasal Cannula 2.00 09/10/19 14:00 71 23 108/74 (85) 97 Nasal Cannula 2.00 09/10/19 13:00 62 2 109/74 (86) 90 Nasal Cannula 2.00 09/10/19 12:18 53 09/10/19 12:00 51 12 101/61 (74) 96 Nasal Cannula 2.00 09/10/19 12:00 95 Nasal Cannula 2.00 09/10/19 11:40 97 Nasal Cannula 2.00 09/10/19 11:00 48 12 96/64 (75) 97 Nasal Cannula 2.00 I & O 09/11/19 07:00 Intake Total 1200 ml Output Total 1725 ml Balance -525 ml Height & Weight Height: 5'1.00" Weight: 82lbs. 0.0oz. 37.748302fq; 12.00 BMI Method:Stated General Appearance: No Apparent Distress HEENT: PERRL/EOMI Neck: Non Tender; No Lymphadenopathy (L), No Lymphadenopathy (R) Respiratory: No Accessory Muscle Use, Decreased Breath Sounds Cardiovascular: Regular Rate, Rhythm, No Murmur Capillary Refill: Less Than 3 Seconds Peripheral Pulses: 2+ Dorsalis Pedis (R), 2+ Radial Pulses (R), 2+ Radial Pulses (L) Gastrointestinal: soft; No distended; tenderness (mild) Extremity: Other (left AKA) Neurologic/Psychiatric: Alert, Oriented x3 Skin: Normal Color, Damp Results Lab Laboratory Tests 09/09/19 15:50 09/09/19 16:40 09/10/19 02:00 09/11/19 05:49 Assessment/Plan Assessment/Plan colon perforation S/p surgery -Continue cipro and flagyl -Add eraxis COPD -SVNS with duoneb -Advair -Oxygen -repeat CXR Anemia -Monitor Zarinagreenwood ASHLEIGH Sequeira DO Sep 11, 2019 10:52
--- NOTE | 2019-09-11 11:10 | Progress Note - Hospitalist ---
[facility] 09/11/19 1110: Subjective HPI/CC On Admission Date Seen by Provider: Sep 11, 2019 Time Seen by Provider: 08:00 CC: Perforated Intestine s/p urgent surgery HPI: This is a 49yoWF who is very chronically ill s/p left above the knee amputation remotely who presents to the ICU after extubation from surgery last night when she came in with abdominal pain found to have a perforated bowel. She had an uncomplicated repair per Dr. Watson and Dr. Jenkins. Pt is sleeping now and does not wish to answer any other questions. Subjective/Events-last exam Patient is doing well. She is alert and speaking. She has no new complaints at this time. There is no family at bedside. She states she has some pain in her abdomen but pain is well controlled at this time. PT/OT on board. Sputum and blood cultures are pending. Pulmonology and Surgery are following. Focused Exam Lactate Level 09/09/19 19:45: Lactic Acid Level 1.32 Objective Exam Vital Signs Vital Signs Date Time Temp Pulse Resp B/P (MAP) Pulse Ox O2 Delivery O2 Flow Rate FiO2 09/11/19 10:33 88 Nasal Cannula 2.00 09/11/19 08:00 36.4 64 18 102/64 (77) 09/10/19 04:00 60 Capillary Refill : Less Than 3 Seconds Respiratory: Lungs Clear, Normal Breath Sounds, No Accessory Muscle Use, No Respiratory Distress Cardiovascular: Regular Rate, Rhythm, No Gallop, No Murmur Rectal: Deferred Skin: Normal Color, Warm/Dry Results/Procedures Lab Laboratory Tests 09/11/19 05:49 Patient resulted labs reviewed. Assessment/Plan Assessment and Plan Assess & Plan/Chief Complaint Assessment s/p R colon resection for cecal volvulus Acute Respiratory failure after sedation post-op Leukocytosis - resolved Anemia - post-op Positive Opiate and Marijuana on tox screen COPD L leg amputation Hx of chronic UTI Hx of pancreatitis Plan Critical care management Pulmonology for vent management and ICU care Continue Abx DVT prophylaxis OT/PT when tolerable Education on marijuana use Clinical Quality Measures DVT/VTE Risk/Contraindication: Risk Factor Score Per Nursin RFS Level Per Nursing on Admit: 2=Moderate ASHLEIGH NERI DO 09/11/19 4743: Subjective Subjective/Events-last exam Pt doing very well Lungs are clear Breathing treatments maintained Abdominal pain much improved Overall chronically ill but doing very well and she states she has struggled with abdominal pain for many years Review of Systems Gastrointestinal: Abdominal Pain Objective Exam General Appearance: No Apparent Distress, WD/WN, Chronically ill, Cachetic Respiratory: Lungs Clear Cardiovascular: Regular Rate, Rhythm Neurologic/Psychiatric: Alert, Oriented x3, No Motor/Sensory Deficits, Normal Mood/Affect Assessment/Plan Assessment and Plan Assess & Plan/Chief Complaint Patient dramatically improved Monitor pain and lungs Supervisory-Addendum Brief Verification & Attestation Participated in pt care: history, MDM, physical Personally performed: exam, history, MDM, supervision of care Care discussed with: Medical Student Procedures: n/a Results interpretation: Verified all documentation Verification and Attestation of Medical Student E/M Service A medical student performed and documented this service in my presence. I reviewed and verified all information documented by the medical student and made modifications to such information, when appropriate. I personally performed the physical exam and medical decision making. Ashleigh Neri, Sep 11, 2019,17:33 [facility] Sep 11, 2019 11:10 ASHLEIGH NERI DO Sep 11, 2019 17:33
[2019-09-11 12:00] VITALS: BP 121/72
--- NOTE | 2019-09-11 13:12 | Cardiology Progress Note ---
Cardiology SOAP Progress Note Subjective: No cardiac complaint. Objective: I&O/Vital Signs 09/12/19 00:00 Intake Total 840 ml Balance 840 ml Weight (Pounds): 82 Weight (Ounces): 0.0 Weight (Calculated Kilograms): 37.491518 Constitutional: AAO x 3 Respiratory: chest is bilaterally symmetric, lungs clear to auscultation Cardiovascular: regular rate-rhythm, S1 and S2 Gastrointestional: soft, audible bowel sounds Extremities: normal range of motion, non-tender, normal inspection, no lower extremity edema bilateral Neurologic/Psychiatric: no motor/sensory deficits, alert, normal mood/affect, oriented x 3 Skin: normal color Results/Procedures: Labs Microbiology 09/10/19 MRSA Screen - Final, Complete MRSA not isolated 09/09/19 Blood Culture - Preliminary, Resulted No growth A/P: Plan: Sinus bradycardia without symptoms. Today the patient's heart rate was 69 BPM. Patient is not on rate controlling agents. Echocardiogram showed normal LV function. I'll be happy to see as an outpatient if she has recurrent bradycardia. Active smoking: Smoking cessation was strongly recommended however the patient is not keen on smoking cessation. Cecal volvulus, status post abdominal surgery, deferred to the surgical team. I clear discharge today by the surgical team. Thank you for your consultation. Please call me if you have any questions. Faith Ramirez MD, FACP, FACC, FSCAI, FHRS, CCDS Interventional Cardiology Cardiac Electrophysiology Vascular Medicine and Endovascular Interventions Focused Exam Lactate Level 09/09/19 19:45: Lactic Acid Level 1.32 Shant RAMIREZ MD Sep 11, 2019 13:12
--- NOTE | 2019-09-11 13:28 | Occupational Ther Daily Note ---
OT Current Status-Daily Note Subjective Pt seen in recliner chair, pt agrees for OT tx session but denies all ADLs. pt hesitantly agrees to UE exercises. Pt expresses 10/10 pain in abdomen. 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 Nursing states pain medications given. ADL-Treatment Therapy Code Descriptions/Definitions Functional [place] Measure: 0=Not Assessed/NA 4=Minimal Assistance 1=Total Assistance 5=Supervision or Setup 2=Maximal Assistance 6=Modified [place] 3=Moderate Assistance 7=Complete IndependenceSCALE: Activities may be completed with or without assistive devices. 9-Abgkfeqako-iwwnang completes the activity by him/herself with no assistance from a helper. 5-Set-up or Clean-up Assistance-helper sets up or cleans up; patient completes activity. [place] assists only prior to or following the activity. 4-Supervision or Touching Assistance-helper provides verbal cues and/or touching/steadying and/or contact guard assistance as patient completes activity. Assistance may be provided throughout the activity or intermittently. 3-Partial/Moderate Assistance-helper does LESS THAN HALF the effort. [place] lifts, holds or supports trunk or limbs, but provides less than half the effort. 2-Substantial/Maximal Assistance-helper does MORE THAN HALF the effort. [place] lifts or holds trunk or limbs and provides more than half the effort. 5-Unrllitcb-jnhpig does ALL the effort. Patient does none of the effort to complete the activity. Or, the assistance of 2 or more helpers is required for the patient to complete the activity. If activity was not attempted, code reason: 7-Patient Refused. 9-Not Applicable-not attempted and the patient did not perform the activity before the current illness, exacerbation or injury. 10-Not Attempted due to Environmental Limitations-(lack of equipment, weather restraints, etc.). 88-Not Attempted due to Medical Conditions or Safety Concerns. Eating (QC): 7 Oral Hygiene (QC): 7 Shower/Bathe Self (QC): 7 Upper Body Dressing (QC): 7 Lower Body Dressing (QC): 7 On/Off Footwear: 7 Toileting Hygiene (QC): 7 Toilet Transfer (QC): 7 Other Treatment Pt seen in chair, pt does not respond to OT entrance. Pt asked if OT can take vitals, pt's eyes hardly open and pt nods. Vitals assessed in chair: 121/72, 96%. TV muted for conversation, pt does not respond to OT. Upon taking vitals machine to hallway pt unmutes TV. Pt denies all ADLs as she plans "to go home today." Pt reminded of strength and ability to complete at home, pt continues to deny ADLs. Pt agreeable to UE exercises while in recliner chair, moves arms toward head x2. Pt states she doesn't want to complete any exercises now as her story is on TV. Pt educated on importance of movement and maintaining and gaining strength. Pt nods. Pt completes 2 sets of exercise, denies full range and states she isn't going to complete. Pt educated on completing at some point today, with demonstration of 3 exercises. Pt asks about pain medication, nursing notified. Pt left in recliner with needs met, call light in reach. Nursing notified of pt participation. Education OT Patient Education: Correct positioning, Exercise program, Home exercise program, Purpose of tx/functional activities Teaching Recipient: Patient Teaching Methods: Demonstration, Discussion Response to Teaching: Verbalize Understanding, Reinforcement Needed OT Jail Goals Jail Goals Time Frame: Sep 17, 2019 Eating (QC): 6 Oral Hygiene (QC): 6 Toileting Hygiene (QC): 6 Shower/Bathe Self (QC): 6 Upper Body Dressing (QC): 6 Lower Body Dressing (QC): 4 On/Off Footwear (QC): 4 Additional Goals: 1-Demonstrate ADL Tasks, 2-Verbalize Understanding, 3- ImproveStrength/Jeaneth 1=Demonstrate adherence to instructed precautions during ADL tasks. 2=Patient will verbalize/demonstrate understanding of assistive de vices/modifications for ADL. 3=Patient will improve strength/tolerance for activity to enable patient to perform ADL's. OT Education/Plan Problem List/Assessment Assessment: Decreased Activ Tolerance, Decreased UE Strength, Dependent Transfers, Impaired Bed Mobility, Impaired I ADL's, Impaired Self-Care Skills Discharge Recommendations Plan/Recommendations: Continue POC Therapy Discharge Recommendati: 24 Hour Supervision (based on strength, motivation) Treatment Plan/Plan of Care Treatment,Training & Education: Yes Patient would benefit from OT for education, treatment and training to promote independence in ADL's, mobility, safety and/or upper extremity function for ADL's. Plan of Care: ADL Retraining, Caregiver Training, Functional Mobility, UE Funct Exercise/Act, W/C Management Training Treatment Duration: Sep 17, 2019 Frequency: 5 times per week Estimated Hrs Per Day: .25 hour per day Rehab Potential: Fair Time/GCodes Start Time: 11:28 Stop Time: 11:38 Total Time Billed (hr/min): 10 Billed Treatment Time 1, FA (10) DARINEL VELASQUEZ OTLida Sep 11, 2019 13:28
[2019-09-11] MEDS ORDERED: ACHD5005 PO (14:14)
--- NOTE | 2019-09-11 14:15 | Discharge Inst-Surgical ---
Discharge Inst-Surgical Depart Medication/Instructions New, Converted or Re-Newed RX: RX Given to Pt/Family Patient Instructions Follow up Appt: Make appointment for 1 week. [phone] Instructions: No lifting greater than 20 pounds. No strenuous activity. May shower in 24 hours, no tub bath or soaking. Use incentive spirometer at home as directed. No Smoking Skin/Wound Care: May remove bandages in am. You need to leave the Dermabond on incision it will fall off on it's own. Symptoms to Report: Appetite Changes, Extremity Discoloration, Numbness/Tingling, Swelling Increased, Bleeding Excessive, Eyesight Changes, Pain Increased, Urine Color Change, Constipation(Persistent), Fever over 101 degree F, Pain/Pressure in chest, Urinating Difficulty, Cough Up/Vomit Blood, Heart Beat Irreg/Pounding, Pain/Pressure in jaw, Cramps in feet or legs, Lightheadedness, Pain/Pressure in shoulder, Diarrhea(Persistent), Memory Changes Suddenly, Questions/Concerns, Weight gain consecutive days, Dizziness/Fainting, Nausea/Vomiting, Shortness of Breath, Weight gain over 2 pounds If questions or concerns contact your physician Or seek help at emergency department. Activity Activity as Tolerated: Yes Activity Instructions: Avoid Stress to Incision Driving Instructions: No Driving/Refer to Dr. Meraz Discharge Diet: No Restrictions Diet After 24 Hours: Clear Liquid if Nauseous If Any Problems/Questions/Issu: Contact Your Physician, Go to Emergency Room Skin/Wound Care Infection Signs and Symptoms: Increased Redness, Foul Odor of Wound, Increased Drainage, Skin Itchy or Has a Rash, Increased Swelling, Temperature Above 101 F Bathing Instructions: Shower Stitches/Solitario/Dermabond Dis: Care of VALENTINO Aguirre DO Sep 11, 2019 14:15
--- NOTE | 2019-09-11 14:27 | Diagnostic Imaging Report ---
INDICATION: Shortness of breath and perforated bowel. TIME OF EXAM: 2:00 p.m. Correlation is made with prior chest from 09/10/2019. Patient has been extubated. The heart size is stable. There is some infiltrate or atelectasis in the left base, increased since yesterday. Right lung is clear. No significant effusion or pneumothorax is seen. IMPRESSION: Increasing left basilar infiltrate or atelectasis when compared with examination one day earlier. Dictated by: Dictated on workstation # [id number]
[2019-09-11 14:55] VITALS: BP 121/72
== END 2019-09-11 14:55 | disposition home or self-care (01) | DRG 329 ==
LOC: EDUNIT# 16:41 → ER 16:42 → SDC 19:42 → ICU 21:51 → 4TH 09-10 20:58
PROVIDERS: ADMIT Surgery; ATTEND Surgery
PROC: 0DTF0ZZ Resection of Right Large Intestine, Open Approach (ICD-10-PCS; principal; 2019-09-09 20:46)
DX: K56.2 Volvulus (principal); J96.00 Acute respiratory failure, unspecified whether with hypoxia or hypercapnia; N17.9 Acute kidney failure, unspecified; E87.5 Hyperkalemia; J43.9 Emphysema, unspecified; F17.210 Nicotine dependence, cigarettes, uncomplicated; Z89.612 Acquired absence of left leg above knee; I12.9 Hypertensive chronic kidney disease with stage 1 through stage 4 chronic kidney disease, or unspecified chronic kidney disease; N18.9 Chronic kidney disease, unspecified; K21.9 Gastro-esophageal reflux disease without esophagitis; K44.9 Diaphragmatic hernia without obstruction or gangrene; M81.0 Age-related osteoporosis without current pathological fracture; F41.9 Anxiety disorder, unspecified; F32.9 Major depressive disorder, single episode, unspecified; F12.90 Cannabis use, unspecified, uncomplicated; D64.9 Anemia, unspecified; Z90.722 Acquired absence of ovaries, bilateral; Z90.49 Acquired absence of other specified parts of digestive tract; Z90.710 Acquired absence of both cervix and uterus; Z95.1 Presence of aortocoronary bypass graft; Z87.01 Personal history of pneumonia (recurrent); Z86.73 Personal history of transient ischemic attack (TIA), and cerebral infarction without residual deficits; Z89.512 Acquired absence of left leg below knee
CPT/HCPCS: 36415; 36600; 51702; 71045; 74018; 74176; 80048; 80053; 80306; 81000; 82805; 82962; 83605; 83690; 83735; 83880; 84100; 84478; 85007; 85025; 85027; 87040; 87070; 87081; 87205; 93306; 94002; 94003; 94640; 94799; 96365; 96367; 96368; 96375; 96376

== ENCOUNTER 2019-09-16 10:55 | Observation (INO) | payer MEDICAID ==
[~2019-09-16] VITALS: Ht 154 cm; Wt 34.2 kg
[~2019-09-16 10:55] MED LIST changes: +ACHD5005 PO
[2019-09-16] MEDS ORDERED: fentaNYL INJECTION 100 MCG/2 ML AMP IVP STA ×2 (11:13→11:54)
[2019-09-16] MEDS ORDERED: ONDANSETRON 4 MG/2 ML (SDV) Z0FRAN IVP ONE (11:15)
[2019-09-16] MEDS ORDERED: NS IV 500 ML 500 ML IV ONE (11:24)
--- NOTE | 2019-09-16 11:24 | ED Abdominal Pain ---
General Chief Complaint: Abdominal/GI Problems Stated Complaint: POST-OP INCISION BLEEDING Nursing Triage Note: ARRIVED VIA EMS. STATES SHE HAD AN ABD SURGERY X6 DAYS AGO AND TODAY BENT OVER AND FELT A POP AND NOTICED BLOOD IN HER INCISION AND ABD SWELLING. COMPLAINS OF PAIN AND REQUESTS PAIN MEDS. Sepsis Screen: No Definite Risk Source of Information: Patient Exam Limitations: No Limitations History of Present Illness Date Seen by Provider: Sep 16, 2019 Time Seen by Provider: 11:03 Initial Comments Here by EMS with report of bleeding from her incision and feeling like there is a pop when she bent over this morning. She had volvulus that was surgically removed at the proximal right colon about 6 days ago and has midline incision. She arrives via EMS due to pain and concerns for bleeding. Noted to be hypoxic with O2 sat in the upper 80s. She is on oxygen at night but not typically during the day. She is complaining of pain. Also has some nausea but no vomiting. Did have normal bowel movement's morning and has each morning. Notes swelling and distention in the area of concern in the midline Timing/Duration: 4-6 Hours Severity/Quality: Moderate Location: Periumbilical Radiation: No Radiation Activities at Onset: None Modifying Factors: Worsens With Movement Associated Symptoms: No Back Pain, No Chest Pain, No Fever/Chills, No Nausea/Vomiting; Shortness of Air, Swelling/Mass in Abdomen; No Weakness Allergies and Home Medications Allergies Coded Allergies: ofloxacin (Verified Allergy, Mild, 02/04/19) Penicillins (Verified Allergy, Unknown, Pt has received Ceftriaxone & Cefepime in the past w/o issue, 02/04/19) amoxicillin (Verified Allergy, Unknown, 02/04/19) clavulanic acid (Verified Allergy, Unknown, 02/04/19) promethazine (Verified Allergy, Unknown, 02/04/19) propoxyphene (Verified Allergy, Unknown, 02/04/19) ketorolac (Verified Adverse Reaction, Unknown, 11/08/17) tramadol (Verified Adverse Reaction, Unknown, 11/08/17) Home Medications Albuterol Sulfate 1 Puff Puff, 2 PUFF IH Q4H PRN for SHORTNESS OF BREATH, (Reported) Budesonide/Formoterol Fumarate 10.2 Gm Hfa.aer.ad, 2 PUFF IH BID, (Reported) Cetirizine HCl 10 Mg Tablet, 10 MG PO DAILY, (Reported) LAST FILLED #30 07-21-19 Cyclobenzaprine HCl 10 Mg Tablet, 10 MG PO HS, (Reported) Dicyclomine HCl 10 Mg Capsule, 20 MG PO TID PRN for CRAMPS, (Reported) TAKES 2 (10MG) CAPSULES Fluticasone Propionate 16 Gm [place].susp, 2 SPRAYS NS DAILY, (Reported) Gabapentin 800 Mg Tablet, 800 MG PO QID, (Reported) Hydrocodone Bit/Acetaminophen 1 Tab Tab, 1 TAB PO Q6HR PRN for PAIN-SEVERE (8- 10) Prescribed by: VALENTINO CLEMENTE on 09/11/19 1414 Lidocaine 1 Each Adh..patch, TOP DAILY, (Reported) LAST FILLED #30 07-28-19 Lipase/Protease/Amylase 1 Each Capsule.dr, 1 CAP PO TIDAC, (Reported) LAST FILLED #30 09-08-19 Multivit-Min/FA/Lycopene/Lut 1 Each Tablet, 1 TAB PO DAILY, (Reported) Prednisone 20 Mg Tab, PO UD, (Reported) TAKE 1 TAB DAILY X 14 DAYS THEN TAKE 1/2 TAB DAILY X 14 DAYS FILLED #21 09-08-19 Ranitidine HCl 150 Mg Tablet, 150 MG PO BID, (Reported) LAST FILLED #60 07-21-19 Patient Home Medication List Home Medication List Reviewed: Yes Review of Systems Review of Systems Constitutional: see HPI; No chills, No fever Respiratory: Shortness of Air; Denies Wheezing Cardiovascular: Denies Chest Pain, Denies Edema Gastrointestinal: Abdominal Pain; Denies Constipated, Denies Diarrhea Genitourinary: No Symptoms Reported Musculoskeletal: No joint pain; muscle pain Skin: No change in color; lesions (midline abdominal incision) Psychiatric/Neurological: No Symptoms Reported Endocrine: No Symptoms Reported All Other Systems Reviewed Negative Unless Noted: Yes Past Xkguvhs-Dtcgye-Epnazx Hx Past Med/Social Hx: Reviewed Nursing Past Med/Soc Hx Patient Social History Alcohol Use: Past History Alcohol Beverage of Choice: Beer Drug of Choice: Smokes THC at times for pain Smoking Status: Current Everyday Smoker Type Used: Cigarettes 2nd Hand Smoke Exposure: No Recent Foreign Travel: No Contact w/Someone Who Travel: No Recent Infectious Disease Expo: No Recent Hopitalizations: No Immunizations Up To Date Tetanus Booster (TDap): Unknown PED Vaccines UTD: No Date of Pneumonia Vaccine: Jul 26, 2009 Date of Influenza Vaccine: Sep 26, 2013 Seasonal Allergies Seasonal Allergies: No Past Medical History Surgeries: Yes (left leg amputation) Abdominal, Orthopedic Respiratory: Yes (ASPIRATION AND ARDS, wears O2 at home at 2 LPM) Asthma, Pneumonia, Chronic Bronchitis, COPD, Emphysema Currently Using CPAP: No Currently Using BIPAP: No Cardiac: Yes Hypertension Neurological: Yes (CHRONIC PHANTOM LEG PAIN, TREMORS) Headaches /Migraines, Stroke 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 Disorders: Yes 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 Sexually Transmitted Disease: No HIV/AIDS: No Genitourinary: Yes (CHRONIC RENAL INSUFFICIENCY) UTI-Chronic Gastrointestinal: Yes (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) Chronic Constipation Musculoskeletal: Yes Amputee, Osteoporosis, Fractures Endocrine: Yes (history of chronic pancreatitis) HEENT: Yes (EDENTULOUS; BILATERAL CATARACT SURGERY) Cataract Loss of Vision: Denies Hearing Impairment: Denies Cancer: No Psychosocial: Yes Anxiety, Suicide Attempts, Depression Integumentary: No Blood Disorders: No Adverse Reaction/Blood Tranf: No Family Medical History Reviewed Nursing Family Hx Alzheimer's disease 19 FATHER 19 MOTHER Asthma 19 FATHER Completed stroke 19 FATHER Deafness or hearing loss 19 FATHER Dementia 19 FATHER Diabetes mellitus 19 FATHER 19 MOTHER Headache disorder 19 FATHER Hypertension 19 FATHER 19 MOTHER Myocardial infarction 19 FATHER 19 MOTHER Respiratory disorder 19 FATHER No Family History of: Kidney disease Heart Disease, COPD, Diabetes, Hypertension, Stroke Physical Exam Vital Signs Vital Signs - First Documented 09/16/19 09/16/19 10:55 11:00 Temp 37.2 Pulse 85 Resp 16 B/P (MAP) 178/97 (124) Pulse Ox 88 O2 Delivery Room Air O2 Flow Rate 2.00 Capillary Refill : Less Than 3 Seconds Height/Weight/BMI Height: 5'1.00" Weight: 82lbs. 0.0oz. 37.677556ud; 12.00 BMI Method:Stated General Appearance: WD/WN, no apparent distress HEENT: PERRL/EOMI, pharynx normal Neck: full range of motion, supple Respiratory: lungs clear, no accessory muscle use Cardiovascular: regular rate, rhythm, no murmur Gastrointestinal: distended (distention/swelling noted near midline incision and to the left.), tenderness (central lower abdomen around midline incision.) Extremities: non-tender, other (amputation left lower extremity) Back: normal inspection, no CVA tenderness, no vertebral tenderness Neurologic/Psychiatric: alert, oriented x 3 Skin: normal color, warm/dry Focused Exam Lactate Level 09/16/19 11:15: Lactic Acid Level 1.63 Lactic Acid Level Laboratory Tests Test 09/16/19 11:15 Lactic Acid Level 1.63 MMOL/L (0.50-2.00) Procedures/Interventions Date of ETT Placement: Sep 09, 2019 Time of ETT Placement: 2144 Progress/Results/Core Measures Results/Orders Lab Results Laboratory Tests Test 09/16/19 11:15 09/16/19 11:24 Range/Units White Blood Count 12.9 H 4.3-11.0 10^3/uL Red Blood Count 3.98 L 4.35-5.85 10^6/uL Hemoglobin 11.8 11.5-16.0 G/DL Hematocrit 39 35-52 % Mean Corpuscular Volume 98 80-99 FL Mean Corpuscular Hemoglobin 30 25-34 PG Mean Corpuscular Hemoglobin Concent 30 L 32-36 G/DL Red Cell Distribution Width 18.6 H 10.0-14.5 % Platelet Count 330 130-400 10^3/uL Mean Platelet Volume 10.3 7.4-10.4 FL Neutrophils (%) (Auto) 91 H 42-75 % Lymphocytes (%) (Auto) 2 L 12-44 % Monocytes (%) (Auto) 7 0-12 % Eosinophils (%) (Auto) 0 0-10 % Basophils (%) (Auto) 0 0-10 % Neutrophils # (Auto) 11.7 H 1.8-7.8 X 10^3 Lymphocytes # (Auto) 0.3 L 1.0-4.0 X 10^3 Monocytes # (Auto) 0.9 0.0-1.0 X 10^3 Eosinophils # (Auto) 0.0 0.0-0.3 10^3/uL Basophils # (Auto) 0.0 0.0-0.1 10^3/uL Neutrophils % (Manual) 92 % Lymphocytes % (Manual) 3 % Monocytes % (Manual) 3 % Eosinophils % (Manual) 0 % Basophils % (Manual) 0 % Band Neutrophils 2 % Hypochromasia SLIGHT Anisocytosis SLIGHT Microcytosis SLIGHT Macrocytosis SLIGHT Prothrombin Time 12.5 12.2-14.7 SEC INR Comment 0.9 0.8-1.4 Activated Partial Thromboplast Time 29 24-35 SEC Sodium Level 138 135-145 MMOL/L Potassium Level 5.0 3.6-5.0 MMOL/L Chloride Level 100 98-107 MMOL/L Carbon Dioxide Level 26 21-32 MMOL/L Anion Gap 12 5-14 MMOL/L Blood Urea Nitrogen 22 H 7-18 MG/DL Creatinine 1.22 0.60-1.30 MG/DL Estimat Glomerular Filtration Rate 46 BUN/Creatinine Ratio 18 Glucose Level 107 H 70-105 MG/DL Lactic Acid Level 1.63 0.50-2.00 MMOL/L Calcium Level 10.3 H 8.5-10.1 MG/DL Corrected Calcium 10.4 H 8.5-10.1 MG/DL Total Bilirubin 0.2 0.1-1.0 MG/DL Aspartate Amino Transf (AST/SGOT) 9 5-34 U/L Alanine Aminotransferase (ALT/SGPT) 17 0-55 U/L Alkaline Phosphatase 60 40-136 U/L C-Reactive Protein High Sensitivity 2.37 H 0.00-0.50 MG/DL Total Protein 6.8 6.4-8.2 GM/DL Albumin 3.9 3.2-4.5 GM/DL Urine Color YELLOW Urine Clarity CLEAR Urine pH 7.0 5-9 Urine Specific [place] 1.020 1.016-1.022 Urine Protein TRACE NEGATIVE Urine Glucose (UA) NEGATIVE NEGATIVE Urine Ketones NEGATIVE NEGATIVE Urine Nitrite NEGATIVE NEGATIVE Urine Bilirubin NEGATIVE NEGATIVE Urine Urobilinogen 0.2 < = 1.0 MG/DL Urine Leukocyte Esterase NEGATIVE NEGATIVE Urine RBC (Auto) NEGATIVE NEGATIVE Urine RBC NONE /HPF Urine WBC RARE /HPF Urine Squamous Epithelial Cells 2-5 /HPF Urine Crystals NONE /LPF Urine Bacteria TRACE /HPF Urine Casts NONE /LPF Urine Mucus NEGATIVE /LPF Urine Culture Indicated CULTURE PENDING My Orders Orders - KADE RIVERA MD Cbc With Automated Diff (09/16/19 11:11) Comprehensive Metabolic Panel (09/16/19 11:11) Blood Culture (09/16/19 11:11) Sputum Culture (09/16/19 11:11) Urinalysis (09/16/19 11:11) Urine Culture (09/16/19 11:11) Protime With Inr (09/16/19 11:11) Partial Thromboplastin Time (09/16/19 11:11) Chest 1 View, Ap/Pa Only (09/16/19 11:11) Ed Iv/Invasive Line Start (09/16/19 11:11) Vital Signs Adult Sepsis Patie Q15M (09/16/19 11:11) O2 (09/16/19 11:11) Remove Rings In Anticipation O (09/16/19 11:11) Lactic Acid Analyzer (09/16/19 11:11) Hs C Reactive Protein (09/16/19 11:11) Ondansetron Injection (Zofran Injectio (09/16/19 11:15) Fentanyl Injection (Sublimaze Injection (09/16/19 11:13) Ns Iv 500 Ml (Sodium Chloride 0.9%) (09/16/19 11:24) Manual Differential (09/16/19 11:15) Fentanyl Injection (Sublimaze Injection (09/16/19 11:54) Hydromorphone Injection (Dilaudid Inject (09/16/19 14:15) Cefepime Injection (Maxipime Injection) (09/16/19 14:15) General/Regular (09/16/19 Lunch) Nicotine Patch (Nicoderm Patch) (09/16/19 14:30) Medications Given in ED Current Medications Medications Dose Ordered Sig/Ely Route Start Time Stop Time Status Last Admin Dose Admin Ondansetron HCl 4 mg ONCE ONCE IVP 09/16/19 11:15 09/16/19 11:16 DC 09/16/19 11:26 4 MG Sodium Chloride 500 ml @ 0 mls/hr Q0M ONCE IV 09/16/19 11:24 09/16/19 11:25 DC 09/16/19 11:30 0 MLS/HR Vital Signs/I&O 09/16/19 09/16/19 10:55 11:00 Temp 37.2 Pulse 85 Resp 16 B/P (MAP) 178/97 (124) Pulse Ox 88 96 O2 Delivery Room Air Nasal Cannula O2 Flow Rate 2.00 Blood Pressure Mean: 124 Progress Progress Note : Progress Note Seen and evaluated. IV, labs, blood cultures and lactic acid ordered. Chest x- ray ordered. Anticipate CT scan. Fentanyl 50 g IV and Zofran 4 mg IV. Monitor patient. 1400: Patient did get CT scan and there does appear to be air within the abdominal wall but not within the abdomen. This does not seem to be a p neumothorax. Air seems to be concentrated on the left side of the wound. Unsure of cause. She does have bilateral pneumonia. She will need admission. I did discuss the case with Dr. Ybarra, patient's primary physician who accepted her for admission, inpatient status. We will initiate cefepime and vancomycin. I discussed the case with Dr. Clemente at 1300 he will see her in consult related to the abdominal air and pain. They continued patch ordered. Repeat pain medicine with fentanyl 50 g IV earlier and now we will give 0.5 mg of Dilaudid IV prior to admission upstairs. Admit, inpatient status. Patient agrees with plan. Diagnostic Imaging Diagonstic Imaging: Xray Plain Films/CT/US/NM/MRI: chest Comments [facility]. [place], [place] NAME: SOPHIE CORNELIUS MED REC#: [id number] PT STATUS: REG ER : 1970 PHYSICIAN: KADE RIVERA MD ADMIT DATE: 09/16/19/ER Draft Date of Exam:09/16/19 CHEST 1 VIEW, AP/PA ONLY INDICATION: Abdominal pain. Jeannette-incisional blood and pain. COMPARISON: Exam compared to 09/11/2019. FINDINGS: No appreciable free air beneath the diaphragms at today's study. Background COPD is a chronic finding present. There has been improvement in infiltrate and expansion of the left lower lobe with better visualization of the left hemidiaphragm. A right perihilar infiltrate appears similar. It may be slightly increased. The upper lobes are clear. No pneumothorax. IMPRESSION: Improved expansion of the left lower lobe. Right perihilar infiltrate may have progressed. No appreciable pneumoperitoneum or pneumothorax at today's study with chronic background COPD noted. Dictated on workstation # [id number] Dict: 09/16/19 1159 Trans: 09/16/19 1206 [id number] Interpreted by: REGINA HOOPER Electronically signed by: Diagonstic Imaging: CT Plain Films/CT/US/NM/MRI: abdomen, pelvis Comments NAME: SOPHIE CORNELIUS MED REC#: [id number] PT STATUS: REG ER : 1970 PHYSICIAN: JUAN C FRANCISCO APRN ADMIT DATE: 09/16/19/ER Draft Date of Exam:09/16/19 CT ABDOMEN/PELVIS WO CLINICAL INDICATION: Postop incision bleed. Patient has past surgical history of gallbladder resection, hernia repair, and hysterectomy. EXAM: CT scan of the abdomen and pelvis performed without IV or enteric contrast. Sagittal and coronal reformatted images were created. Auto Exposure Controls were utilized during the CT exam to meet ALARA standards for radiation dose reduction. COMPARISON: CT scan of the abdomen and pelvis performed without contrast dated 09/09/2019. FINDINGS: There are interval postop changes with anterior midline abdominal wall incision nito. There is subcutaneous air overlying the left abdominal region and near the incision area. There is minimal free air seen in the upper abdomen which is decreased compared to the prior study. Again seen multiple surgical clips overlying the right lower groin and pelvic region. There is interval development of consolidation in the left lung base and small left pleural effusion. Stable consolidation involving the anterior middle lobe region. Bones are stable with lower lumbar spine facet arthropathy. Gallbladder is surgically resected as noted on the prior study. The liver, spleen, pancreas, and gallbladder are unremarkable. Stable small hypodense area involving the lower left kidney region. This may represent calcification or hyperdense cyst. There is no hydronephrosis. Otherwise both kidneys show no significant abnormality. There is small amount of free fluid in the pelvis. There is diverticula involving the sigmoid colon. There is interval anastomosis in the right abdominal region with fecal appearing material within it. There is no evidence of intestinal obstruction. Again seen periaortic lymph nodes. The uterus is surgically absent. The bladder is partially fluid-filled with no gross abnormality. The extra-abdominal and extra-pelvic soft tissue structures are unremarkable. IMPRESSION: 1: There are interval postoperative changes with midline abdominal incision and extra-abdominal subcutaneous air in the region. There is no evidence of rectus sheath hematoma. There is expected postop small amount of intra-abdominal air and free fluid. 2: There is surgical anastomosis in the interim involving the right side of the abdomen with no evidence of intestinal obstruction. 3: There is interval development of a small left pleural effusion and left lung base consolidation. 4: The remainder of this exam shows no other significant interval abnormalities visualized. Dictated on workstation # [id number] Dict: 09/16/19 1321 Trans: 09/16/19 1341 [facility] [id number] Interpreted by: BEE MAR MD Electronically signed by: Departure Communication (Admissions) Time/Spoke to Admitting Phy: 14:00 Time/Spoke to Consulting Phy: 13:00 Impression Primary Impression: Bilateral pneumonia Qualified Codes: J18.9 - Pneumonia, unspecified organism Additional Impression: Abdominal wall pain in left lower quadrant Disposition: ADMITTED INPATIENT Condition: Stable Admissions Decision to Admit Reason: Admit from ER (General) Decision to Admit/Date: Sep 16, 2019 Time/Decision to Admit Time: 13:00 Departure-Patient Inst. Referrals: [facility] (PCP/Family) Primary Care Physician KADE RIVERA MD Sep 16, 2019 11:24
[2019-09-16 11:28] LABS: BASOPHILS % (AUTO) 0 % (0-10); EOSINOPHILS % (AUTO) 0 % (0-10); HEMATOCRIT 39 % (35-52); HEMOGLOBIN 11.8 G/DL (11.5-16.0); LYMPHOCYTES # (AUTO) 0.3 X 10^3 (1.0-4.0); LYMPHOCYTES % (AUTO) 2 % (12-44); MEAN CORPUSCULAR HEMOGLOBIN 30 PG (25-34); MEAN CORPUSCULAR HGB CONC 30 G/DL (32-36); MEAN CORPUSCULAR VOLUME 98 FL (80-99); MEAN PLATELET VOLUME 10.3 FL (7.4-10.4); MONOCYTES # (AUTO) 0.9 X 10^3 (0.0-1.0); MONOCYTES % (AUTO) 7 % (0-12); NEUTROPHILS # (AUTO) 11.7 X 10^3 (1.8-7.8); NEUTROPHILS % (AUTO) 91 % (42-75); PLATELET COUNT 330 10^3/uL (130-400); RED CELL DISTRIBUTION WIDTH 18.6 % (10.0-14.5); WHITE BLOOD COUNT 12.9 10^3/uL (4.3-11.0)
[2019-09-16 11:32] LABS: BILIRUBIN,URINE NEGATIVE (NEGATIVE); CLARITY,URINE CLEAR; COLOR,URINE YELLOW; GLUCOSE, URINE (UA) NEGATIVE (NEGATIVE); KETONES,URINE NEGATIVE (NEGATIVE); LEUKOCYTE ESTERASE ,URINE NEGATIVE (NEGATIVE); NITRITE,URINE NEGATIVE (NEGATIVE); PROTEIN,URINE TRACE (NEGATIVE)
[2019-09-16 11:38] LABS: BACTERIA,URINE TRACE /HPF; WBC,URINE RARE /HPF
[2019-09-16 11:52] LABS: ALBUMIN 3.9 GM/DL (3.2-4.5); BILIRUBIN,TOTAL 0.2 MG/DL (0.1-1.0); CALCIUM 10.3 MG/DL (8.5-10.1); CREATININE SERUM 1.22 MG/DL (0.60-1.30); TOTAL PROTEIN 6.8 GM/DL (6.4-8.2)
[2019-09-16 11:55] LABS: BAND NEUTROPHILS 2 %; BASOPHILS % (MANUAL) 0 %; EOSINOPHILS % (MANUAL) 0 %; LYMPHOCYTES % (MANUAL) 3 %; MONOCYTES % (MANUAL) 3 %; NEUTROPHILS % (MANUAL) 92 %
[2019-09-16 12:02] LABS: ANISOCYTOSIS SLIGHT; HYPOCHROMASIA SLIGHT; MICROCYTOSIS SLIGHT
--- NOTE | 2019-09-16 12:06 | Diagnostic Imaging Report ---
INDICATION: Abdominal pain. Jeannette-incisional blood and pain. COMPARISON: Exam compared to 09/11/2019. FINDINGS: No appreciable free air beneath the diaphragms at today's study. Background COPD is a chronic finding present. There has been improvement in infiltrate and expansion of the left lower lobe with better visualization of the left hemidiaphragm. A right perihilar infiltrate appears similar. It may be slightly increased. The upper lobes are clear. No pneumothorax. IMPRESSION: Improved expansion of the left lower lobe. Right perihilar infiltrate may have progressed. No appreciable pneumoperitoneum or pneumothorax at today's study with chronic background COPD noted. Dictated by: Dictated on workstation # [id number]
[2019-09-16 12:15] LABS: INR 0.9 (0.8-1.4); PROTHROMBIN TIME PATIENT 12.5 SEC (12.2-14.7)
--- NOTE | 2019-09-16 13:41 | Diagnostic Imaging Report ---
CLINICAL INDICATION: Postop incision bleed. Patient has past surgical history of gallbladder resection, hernia repair, and hysterectomy. EXAM: CT scan of the abdomen and pelvis performed without IV or enteric contrast. Sagittal and coronal reformatted images were created. Auto Exposure Controls were utilized during the CT exam to meet ALARA standards for radiation dose reduction. COMPARISON: CT scan of the abdomen and pelvis performed without contrast dated 09/09/2019. FINDINGS: There are interval postop changes with anterior midline abdominal wall incision nito. There is subcutaneous air overlying the left abdominal region and near the incision area. There is minimal free air seen in the upper abdomen which is decreased compared to the prior study. Again seen multiple surgical clips overlying the right lower groin and pelvic region. There is interval development of consolidation in the left lung base and small left pleural effusion. Stable consolidation involving the anterior middle lobe region. Bones are stable with lower lumbar spine facet arthropathy. Gallbladder is surgically resected as noted on the prior study. The liver, spleen, pancreas, and gallbladder are unremarkable. Stable small hypodense area involving the lower left kidney region. This may represent calcification or hyperdense cyst. There is no hydronephrosis. Otherwise both kidneys show no significant abnormality. There is small amount of free fluid in the pelvis. There is diverticula involving the sigmoid colon. There is interval anastomosis in the right abdominal region with fecal appearing material within it. There is no evidence of intestinal obstruction. Again seen periaortic lymph nodes. The uterus is surgically absent. The bladder is partially fluid-filled with no gross abnormality. The extra-abdominal and extra-pelvic soft tissue structures are unremarkable. IMPRESSION: 1: There are interval postoperative changes with midline abdominal incision and extra-abdominal subcutaneous air in the region. There is no evidence of rectus sheath hematoma. There is expected postop small amount of intra-abdominal air and free fluid. 2: There is surgical anastomosis in the interim involving the right side of the abdomen with no evidence of intestinal obstruction. 3: There is interval development of a small left pleural effusion and left lung base consolidation. 4: The remainder of this exam shows no other significant interval abnormalities visualized. Dictated by: Dictated on workstation # [id number]
[2019-09-16] MEDS ORDERED: CEFEPIME INJECTION 2,000 MG in WATER (STERILE) FOR INJECTION 20 ML IV ONE (14:15)
[2019-09-16] MEDS ORDERED: HYDROmorphone 2 MG/ML VIAL (DILAUDID) IV ONE (14:15)
[2019-09-16] MEDS ORDERED: NICOTINE 21 MG (NICODERM) PATCH TD ONE (14:30)
--- NOTE | 2019-09-16 14:35 | NUR ---
SOPHIE CORNELIUS Diana admitted to room 422-1, with an admitting diagnosis of bilateral pneumonia, on 09/16/19 from ER via W/C, accompanied bY ER STAFF.SOPHIE CORNELIUS introduced to surroundings, call light, bed controls, phone, TV, temperature control, lights, meal times, smoking policy, visitor policy, side rail policy, bathrooms and showers. Patient Rights given to patient in the handbook. SOPHIE CORNELIUS verbalizes understanding that [facility] is not responsible for the loss or damage to any personal effects or valuables that are kept in the patients posession during their hospitalization. SOPHIE CORNELIUS verbalizes understanding of Interdisciplinary Patient Education. Patient and/or family were informed about the Rapid Response Team and its purpose.
[2019-09-16] MEDS ORDERED: HYDROcodone/APAP 5 MG/325 MG (LORTAB) TAB PO PRN (15:00)
[2019-09-16] MEDS ORDERED: fentaNYL INJECTION 100 MCG/2 ML AMP IV PRN (15:00)
--- NOTE | 2019-09-16 15:11 | NUR ---
CR 1.22; CR CL ~29; WT 34.2 KG; VANCO 750 MG IV Q24HR X 3 DAYS
[2019-09-16] MEDS ORDERED: CATHETER FLUSH 10 ML SYR IV PRN (15:15)
[2019-09-16 15:24] VITALS: BP 178/97
[2019-09-16 15:27] VITALS: BP 116/62
[2019-09-16] MEDS ORDERED: VANCOMYCIN 750 MG/NS 250 ML IVPB IV SCH ×2 (15:30)
[2019-09-16] MEDS ORDERED: HYDR-3812 PO (15:34)
[2019-09-16] MEDS ORDERED: CYCL10TA9 PO (15:34)
--- NOTE | 2019-09-16 15:35 | NUR ---
WENT OVER THE MEDICATION LIST WITH THE PATIENT. SHE STATES NOTHING HAS CHANGED SINCE HER LAST DISCHARGE.
[2019-09-16] MEDS ORDERED: RT-ALBUTEROL/IPRATROPIUM 3 ML (DUONEB) VIAL INH PRN (16:00)
[2019-09-16] MEDS ORDERED: LORazepam 0.5 MG (ATIVAN) TABLET PO PRN (16:45)
[2019-09-16 16:59] VITALS: BP 145/85
[2019-09-16] MEDS ORDERED: DICYCLOMINE 10 MG (BENTYL) CAP PO PRN (17:45)
[2019-09-16] MEDS ORDERED: RT-ALBUTEROL/IPRATROPIUM 3 ML (DUONEB) VIAL INH SCH (18:00)
[2019-09-16] MEDS ORDERED: CYCLOBENZAPRINE 10 MG (FLEXERIL) TAB PO PRN (18:00)
--- NOTE | 2019-09-16 18:21 | Consultation - Surgery ---
ALE MARTINEZ,MED STUDENT 09/16/19 1821: History of Present Illness History of Present Illness Patient Consulted On(julia/time) 09/16/19 18:15 Date Seen by Provider: Sep 16, 2019 Time Seen by Provider: 18:15 History of Present Illness Patient is a 49y/o female that presented to the ER today after hearing a pop at one of her surgical sites. She had a right hemicolectomy following a cecal volvu teresa on 09/[address] Watson. Pain is described as sharp and stabbing and localized to the left of the midline abdominal incision. Patient has also had a non- productive cough and has bilateral pneumonia as seen in the CXR done by the ER. Patient says that she wants to talk to Dr. Ybarra about her muscle relaxers because her current dosage is not working. Patient has good appetite and was eating pot roast during the interview. Patient wants her pain meds and nicotine patch dosages increased because "they feel like they are working as good as an aspirin". Patient denies nausea, vomiting, diarrhea, dark, stools, and constipation, with last bowel movement this morning. Allergies and Home Medications Allergies Coded Allergies: ofloxacin (Verified Allergy, Mild, 02/04/19) Penicillins (Verified Allergy, Unknown, Pt has received Ceftriaxone & Cefepime in the past w/o issue, 02/04/19) amoxicillin (Verified Allergy, Unknown, 02/04/19) clavulanic acid (Verified Allergy, Unknown, 02/04/19) promethazine (Verified Allergy, Unknown, 02/04/19) propoxyphene (Verified Allergy, Unknown, 02/04/19) ketorolac (Verified Adverse Reaction, Unknown, 11/08/17) tramadol (Verified Adverse Reaction, Unknown, 11/08/17) Home Medications Albuterol Sulfate 1 Puff Puff, 2 PUFF IH Q4H PRN for SHORTNESS OF BREATH, (Reported) Budesonide/Formoterol Fumarate 10.2 Gm Hfa.aer.ad, 2 PUFF IH BID, (Reported) Cetirizine HCl 10 Mg Tablet, 10 MG PO DAILY, (Reported) Cyclobenzaprine HCl 10 Mg Tablet, 10 MG PO HS, (Reported) Cyclobenzaprine HCl 10 Mg Tablet, 5 MG PO DAILY PRN for MUSCLE SPASMS, (Reported) Dicyclomine HCl 10 Mg Capsule, 20 MG PO TID PRN for CRAMPS, (Reported) TAKES 2 (10MG) CAPSULES Fluticasone Propionate 16 Gm [place].susp, 2 SPRAYS NS DAILY, (Reported) Gabapentin 800 Mg Tablet, 800 MG PO QID, (Reported) FILLED #56 08-24-19 Hydrocodone/Acetaminophen 1 Each Tablet, 1 TAB PO Q6H PRN for PAIN-MODERATE (5- 7), (Reported) Lidocaine 1 Each Adh..patch, TOP DAILY, (Reported) LAST FILLED #30 07-28-19 Lipase/Protease/Amylase 1 Each Capsule.dr, 1 CAP PO TIDAC, (Reported) Multivit-Min/FA/Lycopene/Lut 1 Each Tablet, 1 TAB PO DAILY, (Reported) Prednisone 20 Mg Tab, PO UD, (Reported) TAKE 1 TAB DAILY X 14 DAYS THEN TAKE 1/2 TAB DAILY X 14 DAYS FILLED #21 09-08-19 Ranitidine HCl 150 Mg Tablet, 150 MG PO BID, (Reported) LAST FILLED #60 07-21-19 Past Hnfdigc-Iuwupq-Pwcgme Hx Patient Social History Alcohol Use: Past History Drug of Choice: Smokes THC at times for pain Smoking Status: Current Everyday Smoker Type Used: Cigarettes 2nd Hand Smoke Exposure: No Recent Foreign Travel: No Contact w/Someone Who Travel: No Recent Infectious Disease Expo: No Recent Hopitalizations: No Immunizations Up To Date Tetanus Booster (TDap): Unknown PED Vaccines UTD: No Date of Pneumonia Vaccine: Jul 26, 2009 Date of Influenza Vaccine: Aug 26, 2019 Seasonal Allergies Seasonal Allergies: No Surgeries History of Surgeries: Yes (left leg amputation) Surgeries: Abdominal, Orthopedic Respiratory History of Respiratory Disorde: Yes (ASPIRATION AND ARDS, wears O2 at home at 2 LPM) Respiratory Disorders: Asthma, Pneumonia, Chronic Bronchitis, COPD, Emphysema Cardiovascular History of Cardiac Disorders: Yes Cardiac Disorders: Hypertension Neurological History of Neurological Disord: Yes (CHRONIC PHANTOM LEG PAIN, TREMORS) Neurological Disorders: Headaches /Migraines, Stroke 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 System Hx 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 Disorders: Yes Sexually Transmitted Disease: No HIV/AIDS: No 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 Genitourinary History of Genitourinary Disor: Yes (CHRONIC RENAL INSUFFICIENCY) Genitourinary Disorders: UTI-Chronic Gastrointestinal History of Gastrointestinal Di: Yes (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) Gastrointestinal Disorders: Chronic Constipation Musculoskeletal History of Musculoskeletal Dis: Yes Musculoskeletal Disorders: Amputee, Osteoporosis, Fractures Endocrine History of Endocrine Disorders: Yes (history of chronic pancreatitis) HEENT History of HEENT Disorders: Yes (EDENTULOUS; BILATERAL CATARACT SURGERY) HEENT Disorders: Cataract Loss of Vision: Denies Hearing Impairment: Denies Cancer History of Cancer: No Psychosocial History of Psychiatric Problem: Yes Behavioral Health Disorders: Anxiety, Suicide Attempts, Depression Integumentary History of Skin or Integumenta: No Blood Transfusions History of Blood Disorders: No Adverse Reaction to a Blood Tr: No Family Medical History Significant Family History: Heart Disease, COPD, Diabetes, Hypertension, Stroke Family Medial History: Alzheimer's disease 19 FATHER 19 MOTHER Asthma 19 FATHER Completed stroke 19 FATHER Deafness or hearing loss 19 FATHER Dementia 19 FATHER Diabetes mellitus 19 FATHER 19 MOTHER Headache disorder 19 FATHER Hypertension 19 FATHER 19 MOTHER Myocardial infarction 19 FATHER 19 MOTHER Respiratory disorder 19 FATHER No Family History of: Kidney disease Review of Systems-General Constitutional: No chills; diaphoresis; No dizziness, No fever EENTM: No hearing loss, No blurred vision, No vision loss Respiratory: cough; No hemoptysis, No phlegm; short of breath Cardiovascular: No chest pain, No edema Gastrointestinal: abdominal pain (Left of midline incision ); No constipation, No diarrhea, No hematemesis, No melena, No nausea, No vomiting Genitourinary: No dysuria, No hematuria; hesitancy Musculoskeletal: back pain, muscle weakness Skin: No rash Psychiatric/Neurological: Headache (migraine like ); Denies Numbness Physical Exam-General Problems Physical Exam Vital Signs Vital Signs - First Documented 09/16/19 09/16/19 09/16/19 10:55 11:00 15:24 Temp 37.2 Pulse 85 Resp 16 B/P (MAP) 178/97 (124) Pulse Ox 88 O2 Delivery Room Air O2 Flow Rate 2.00 FiO2 21 Capillary Refill : Less Than 3 Seconds General Appearance: WD/WN, no apparent distress HEENT: PERRL/EOMI; No scleral icterus (R), No scleral icterus (L), No pale conjunctivae (R), No pale conjunctivae (L) Respiratory: chest non-tender, no respiratory distress, no accessory muscle use, crackles, wheezing Cardiovascular: regular rate, rhythm, no edema Peripheral Pulses: 2+ Dorsalis Pedis (R), 2+ Radial Pulses (R), 2+ Radial Pu lses (L) Gastrointestinal: normal bowel sounds, soft, no organomegaly, no pulsatile mass, tenderness (left of midline incision ), other Extremities: no pedal edema, no calf tenderness Neurologic/Psychiatric: alert, normal mood/affect, oriented x 3, other Skin: normal color, warm/dry Data Review Labs Laboratory Tests 09/16/19 11:15: White Blood Count 12.9H, Red Blood Count 3.98L, Hemoglobin 11.8, Hematocrit 39, Mean Corpuscular Volume 98, Mean Corpuscular Hemoglobin 30, Mean Corpuscular Hemoglobin Concent 30L, Red Cell Distribution Width 18.6H, Platelet Count 330, Mean Platelet Volume 10.3, Neutrophils (%) (Auto) 91H, Lymphocytes (%) (Auto) 2L , Monocytes (%) (Auto) 7, Eosinophils (%) (Auto) 0, Basophils (%) (Auto) 0, Neutrophils # (Auto) 11.7H, Lymphocytes # (Auto) 0.3L, Monocytes # (Auto) 0.9, Eosinophils # (Auto) 0.0, Basophils # (Auto) 0.0, Neutrophils % (Manual) 92, Lymphocytes % (Manual) 3, Monocytes % (Manual) 3, Eosinophils % (Manual) 0, Basophils % (Manual) 0, Band Neutrophils 2, Hypochromasia SLIGHT, Anisocytosis SLIGHT, Microcytosis SLIGHT, Macrocytosis SLIGHT, Prothrombin Time 12.5, INR Comment 0.9, Activated Partial Thromboplast Time 29, Sodium Level 138, Potassium Level 5.0, Chloride Level 100, Carbon Dioxide Level 26, Anion Gap 12, Blood Urea Nitrogen 22H, Creatinine 1.22, Estimat Glomerular Filtration Rate 46, BUN/Creatinine Ratio 18, Glucose Level 107H, Lactic Acid Level 1.63, Calcium Level 10.3H, Corrected Calcium 10.4H, Total Bilirubin 0.2, Aspartate Amino Transf (AST/SGOT) 9, Alanine Aminotransferase (ALT/SGPT) 17, Alkaline Phosphatase 60, C-Reactive Protein High Sensitivity 2.37H, Total Protein 6.8, Albumin 3.9 09/16/19 11:24: Urine Color YELLOW, Urine Clarity CLEAR, Urine pH 7.0, Urine Specific [place] 1.020, Urine Protein TRACE, Urine Glucose (UA) NEGATIVE, Urine Ketones NEGATIVE, Urine Nitrite NEGATIVE, Urine Bilirubin NEGATIVE, Urine Urobilinogen 0.2, Urine Leukocyte Esterase NEGATIVE, Urine RBC (Auto) NEGATIVE, Urine RBC NONE, Urine WBC RARE, Urine Squamous Epithelial Cells 2-5, Urine Crystals NONE, Urine Bacteria TRACE, Urine Casts NONE, Urine Mucus NEGATIVE, Urine Culture Indicated CULTURE PENDING Assessment/Plan Assessment/Plan Assessment/Plan bilateral PNA - abx incentive spirometry Hx Right hemicolectomy 7days ago - currently tolerating diet and continue diet as tolerates Abdominal wall air does not appear to be intra-abdominal with no signs of infection in the abdominal wall; will monitor. Clinical Quality Measures DVT/VTE Risk/Contraindication: Risk Factor Score Per Nursin RFS Level Per Nursing on Admit: 4+=Very High XUAN LALA DO 09/16/192124: History of Present Illness History of Present Illness History of Present Illness 49 year old female with recent exploratory laparotomy and right colon resection. Patient states she as having some bleeding from incision and swelling on left side of abdomen. She felt a pop and having sharp stabbing pain. Has swelling that she hasn't had before that started today. Patient with nonproductive cough with bilateral pneumonia. Patient with pain, cough and bleeding decided to go to ER to be evaluated. Paitent has been tolerating diet and having bowel movement. Patient had a ct scan with some subcutaneous air to the left of i ncision, minimal postoperative fluid and air in abdomen, No source of subcutaneous air identified. Allergies and Home Medications Allergies Coded Allergies: ofloxacin (Verified Allergy, Mild, 02/04/19) Penicillins (Verified Allergy, Unknown, Pt has received Ceftriaxone & Cefepime in the past w/o issue, 02/04/19) amoxicillin (Verified Allergy, Unknown, 02/04/19) clavulanic acid (Verified Allergy, Unknown, 02/04/19) promethazine (Verified Allergy, Unknown, 02/04/19) propoxyphene (Verified Allergy, Unknown, 02/04/19) ketorolac (Verified Adverse Reaction, Unknown, 11/08/17) tramadol (Verified Adverse Reaction, Unknown, 11/08/17) Home Medications Albuterol Sulfate 1 Puff Puff, 2 PUFF IH Q4H PRN for SHORTNESS OF BREATH, (Reported) Budesonide/Formoterol Fumarate 10.2 Gm Hfa.aer.ad, 2 PUFF IH BID, (Reported) Cetirizine HCl 10 Mg Tablet, 10 MG PO DAILY, (Reported) Cyclobenzaprine HCl 10 Mg Tablet, 10 MG PO HS, (Reported) Cyclobenzaprine HCl 10 Mg Tablet, 5 MG PO DAILY PRN for MUSCLE SPASMS, (Reported) Dicyclomine HCl 10 Mg Capsule, 20 MG PO TID PRN for CRAMPS, (Reported) TAKES 2 (10MG) CAPSULES Fluticasone Propionate 16 Gm [place].susp, 2 SPRAYS NS DAILY, (Reported) Gabapentin 800 Mg Tablet, 800 MG PO QID, (Reported) FILLED #56 08-24-19 Hydrocodone/Acetaminophen 1 Each Tablet, 1 TAB PO Q6H PRN for PAIN-MODERATE (5- 7), (Reported) Lidocaine 1 Each Adh..patch, TOP DAILY, (Reported) LAST FILLED #30 07-28-19 Lipase/Protease/Amylase 1 Each Capsule.dr, 1 CAP PO TIDAC, (Reported) Multivit-Min/FA/Lycopene/Lut 1 Each Tablet, 1 TAB PO DAILY, (Reported) Prednisone 20 Mg Tab, PO UD, (Reported) TAKE 1 TAB DAILY X 14 DAYS THEN TAKE 1/2 TAB DAILY X 14 DAYS FILLED #21 09-08-19 Ranitidine HCl 150 Mg Tablet, 150 MG PO BID, (Reported) LAST FILLED #60 07-21-19 Patient Home Medication List Home Medication List Reviewed: Yes Past Wconfxi-Sgwoit-Qufkqm Hx Gastrointestinal History of Gastrointestinal Di: Yes (right colon resection) Reviewed Nursing Assessment Reviewed/Agree w Nursing PMH: Yes Family Medical History Significant Family History: No Pertinent Family Hx Family Medial History: Alzheimer's disease 19 FATHER 19 MOTHER Asthma 19 FATHER Completed stroke 19 FATHER Deafness or hearing loss 19 FATHER Dementia 19 FATHER Diabetes mellitus 19 FATHER 19 MOTHER Headache disorder 19 FATHER Hypertension 19 FATHER 19 MOTHER Myocardial infarction 19 FATHER 19 MOTHER Respiratory disorder 19 FATHER No Family History of: Kidney disease Review of Systems-General Constitutional: No dizziness, No fever EENTM: No hearing loss, No blurred vision, No vision loss Respiratory: No hemoptysis, No phlegm; short of breath Gastrointestinal: abdominal pain (LLQ); No constipation, No diarrhea, No hematemesis, No melena, No nausea, No vomiting Musculoskeletal: back pain, muscle weakness Skin: No change in color, No change in hair/nails, No rash Psychiatric/Neurological: Headache (migraine like ); Denies Numbness Physical Exam-General Problems Physical Exam General Appearance: no apparent distress (sitting in chair) HEENT: PERRL/EOMI; No scleral icterus (R), No scleral icterus (L) Neck: non-tender, supple, normal inspection Respiratory: chest non-tender, no respiratory distress, no accessory muscle use, crackles, wheezing Cardiovascular: regular rate, rhythm Gastrointestinal: soft, tenderness (left of midline incision , swelling with creptius, no erythema or signs of infection), other (incision is clean dry and intact) Back: normal inspection, no CVA tenderness, no vertebral tenderness Extremities: no pedal edema, other (left bka) Neurologic/Psychiatric: alert, normal mood/affect, oriented x 3 Skin: normal color, warm/dry Lymphatic: no adenopathy Assessment/Plan Assessment/Plan Assessment/Plan bilateral pneumonia abdominal subcutaneous air s/p right hemicolectomy patient with pneumonia on Vanc/Cefepime subcutaneous air left of midline- the surrounding area does not seem to be infected, no source of the air is identified, will monitor closely patient from right hemicolectomy has been doing well, diet as tolerated. do not believe to have source of air related to her recent surgery, question possible injection? medical management, watch closely for signs of infection follow labs Supervisory-Addendum Brief Verification & Attestation Participated in pt care: history, MDM, physical Personally performed: exam, history, MDM, supervision of care Care discussed with: Medical Student Procedures: n/a Results interpretation: Verified all documentation Verification and Attestation of Medical Student E/M Service A medical student performed and documented this service in my presence. I reviewed and verified all information documented by the medical student and made modifications to such information, when appropriate. I personally performed the physical exam and medical decision making. Xuan Lala, Sep 16, 2019,21:39 ALE MARTINEZ,MED STUDENT Sep 16, 2019 18:21 XUAN LALA DO Sep 16, 2019 21:25
[2019-09-16 19:15] VITALS: BP 119/68
--- NOTE | 2019-09-16 20:02 | NUR ---
NO LIDOCAINE PATCH NOTED ON PATCH, NO REMOVAL NECESSARY.
--- NOTE | 2019-09-16 20:32 | NUR ---
TIMELINE NOTE BELOW: 09/16/2019 AT 1930: THIS RN ENTERED PT'S ROOM TO PERFORM INITIAL ASSESSMENT. PT REQUESTED THAT THIS RN CONTACT DR. MESSER TO INQUIRE ABOUT INCREASING PAIN MEDICATION AND ANXIOLYTIC MEDICATION. PT STATED "IF I'M NOT GOING TO BE KEPT COMFORTABLE WHILE I'M IN THE HOSPITAL THEN I'M JUST GOING TO LEAVE." 09/16/2019 AT 1946: THIS RN CONTACTED DR. MESSER TO INFORM HER OF PT'S REQUESTS. NO NEW ORDERS OBTAINED. 09/16/2019 AT 2002: THIS RN INFORMED PT THAT THERE WERE NO CHANGES TO HER MEDICATIONS PER DR. MESSER. PT REQUESTED TO LEAVE AMA. 09/16/2019 AT 2005: THIS RN INFORMED PT OF POTENTIAL RISKS AND OF BENEFITS OF STAYING IN THE HOSPITAL. PT DECLINED TO STAY AND SIGNED AMA PAPERWORK. SEE PT'S CHART. 09/16/2019 AT 2014: DR. MESSER NOTIFIED OF PT SIGNING AMA PAPERWORK. 09/16/2019 AT 2031: PT LEFT AMA VIA WHEELCHAIR AND ACCOMPANIED TO PRIVATE CONVEYANCE BY FAMILY MEMBER AND EHSAN INGRAM.
[2019-09-16] MEDS ORDERED: GABAPENTIN 400 MG (NEURONTIN) CAP PO SCH (21:00)
[2019-09-16] MEDS ORDERED: CYCLOBENZAPRINE 10 MG (FLEXERIL) TAB PO SCH (21:00)
[2019-09-16] MEDS ORDERED: LIDOCAINE PATCH REMOVAL TP SCH (21:00)
[2019-09-16] MEDS ORDERED: NON-FORMULARY MEDICATION 1 EA EA (Gabapentin 800 MG) PO SCH (21:00)
[2019-09-16] MEDS ORDERED: CATHETER FLUSH 10 ML SYR IV SCH (22:00)
[2019-09-17] MEDS ORDERED: AMYLASE PO SCH (06:00)
[2019-09-17] MEDS ORDERED: LIPASE PO SCH (06:00)
[2019-09-17] MEDS ORDERED: PROTEASE PO SCH (06:00)
[2019-09-17] MEDS ORDERED: [UNRECOGNIZED DRUG - OTHER] PO SCH (06:00)
[2019-09-17] MEDS ORDERED: LIPASE/AMYLASE/PROTEASE (PANCRELIPASE) 5,000 UNITS CAP PO SCH (07:00)
[2019-09-17] MEDS ORDERED: NICOTINE PATCH REMOVAL TP SCH (08:59)
[2019-09-17] MEDS ORDERED: FLUTICASONE NASAL SPRAY (FLONASE) 16 GM BTL NS SCH (09:00)
[2019-09-17] MEDS ORDERED: LORATADINE (CLARITIN) 10 MG TAB PO SCH (09:00)
[2019-09-17] MEDS ORDERED: NICOTINE 21 MG (NICODERM) PATCH TD SCH (09:00)
[2019-09-17] MEDS ORDERED: NON-FORMULARY MEDICATION 1 EA EA (Cetirizine HCl 10 MG) PO SCH (09:00)
[2019-09-17] MEDS ORDERED: LIDOCAINE 4% (SALONPAS) PATCH TOP SCH (09:00)
[2019-09-17] MEDS ORDERED: CEFEPIME 2,000 MG/SWFI 20 ML IV PUSH IV SCH ×2 (14:00)
== END 2019-09-16 20:32 | disposition other institution (70) ==
LOC: EDUNIT# 10:55 → ER 10:56 → INTOOBSV 14:22 → 4TH 14:22
PROVIDERS: ADMIT Family Medicine; ATTEND Family Medicine
DX: J18.9 Pneumonia, unspecified organism (principal); R10.32 Left lower quadrant pain; J43.9 Emphysema, unspecified; I10 Essential (primary) hypertension; G43.909 Migraine, unspecified, not intractable, without status migrainosus; N39.0 Urinary tract infection, site not specified; K59.09 Other constipation; F17.210 Nicotine dependence, cigarettes, uncomplicated; F41.9 Anxiety disorder, unspecified; F32.9 Major depressive disorder, single episode, unspecified; Z88.0 Allergy status to penicillin; Z88.8 Allergy status to other drugs, medicaments and biological substances; Z88.1 Allergy status to other antibiotic agents; Z79.899 Other long term (current) drug therapy; Z79.891 Long term (current) use of opiate analgesic; Z90.49 Acquired absence of other specified parts of digestive tract; Z89.512 Acquired absence of left leg below knee; Z86.73 Personal history of transient ischemic attack (TIA), and cerebral infarction without residual deficits; Z83.6 Family history of other diseases of the respiratory system; Z82.49 Family history of ischemic heart disease and other diseases of the circulatory system; Z83.3 Family history of diabetes mellitus
CPT/HCPCS: 36415; 71045; 74176; 80053; 81000; 83605; 85007; 85027; 85610; 85730; 86141; 87040; 87077; 87088; 87184; 87186; 94640; 94760; G0378

== ENCOUNTER 2019-09-17 14:34 | Observation (INO) | payer MEDICAID ==
[~2019-09-17] VITALS: Ht 154.9 cm; Wt 34.6 kg
--- NOTE | 2019-09-17 14:45 | NUR ---
CANDY CORNELIUSILA Diana admitted to room 420-1, with an admitting diagnosis of HEALTH-CARE ASSOCIATED PNEUMONIA, on 09/17/19 from DIRECT ADMISSION via , accompanied by STAFF.SOPHIE CORNELIUS introduced to surroundings, call light, bed controls, phone, TV, temperature control, lights, meal times, smoking policy, visitor policy, side rail policy, bathrooms and showers. Patient Rights given to patient in the handbook. SOPHIE CORNELIUS verbalizes understanding that [facility] is not responsible for the loss or damage to any personal effects or valuables that are kept in the patients posession during their hospitalization. The following Patient Care Plans were discussed with the PT: Discharge Planning AND PNEUMONIA.SOPHIE CORNELIUS verbalizes understanding of Interdisciplinary Patient Education. CONTACT ISOLATION STARTED FOR MRSA/ESBL. ROOM AIR SAT 80'S AND O2 STARTED AT 2L. DR. MESSER NOTIFIED THAT PATIENT ARRIVED.
--- NOTE | 2019-09-17 15:29 | NUR ---
PATIENT WAS ADMITTED YESTERDAY AND I WENT OVER HER MEDICATIONS WITH HER THEN. SHE LEFT AMA, I HAVE REVIEWED THEM THEY WERE REPORTED YESTERDAY. I DID NOT RE-INTERVIEW THE PATIENT AT THIS TIME.
[2019-09-17] MEDS ORDERED: CYCLOBENZAPRINE 10 MG (FLEXERIL) TAB PO PRN (15:30)
[2019-09-17] MEDS: FLUTICASONE NASAL SPRAY (FLONASE) 16 GM BTL NS SCH (15:30)
[2019-09-17] MEDS ORDERED: HYDROcodone/APAP 5 MG/325 MG (LORTAB) TAB PO PRN (15:30)
[2019-09-17] MEDS ORDERED: DICYCLOMINE 10 MG (BENTYL) CAP PO PRN (15:30)
[2019-09-17 15:32] VITALS: BP 119/78
[2019-09-17 16:00] VITALS: BP 125/69
[2019-09-17] MEDS: GABAPENTIN 400 MG (NEURONTIN) CAP PO SCH ×2 (16:42→20:17)
[2019-09-17] MEDS: NICOTINE 21 MG (NICODERM) PATCH TD SCH (16:42)
[2019-09-17] MEDS: LIPASE/AMYLASE/PROTEASE (PANCRELIPASE) 5,000 UNITS CAP PO SCH (16:42)
[2019-09-17] MEDS: CEFEPIME INJECTION 2,000 MG in WATER (STERILE) FOR INJECTION 20 ML IV SCH (17:00)
--- NOTE | 2019-09-17 17:00 | NUR ---
DR. MESSER HERE TO SEE PATIENT. INFORMED PATIENT'S REQUEST FOR MORE PAIN MEDICATION. ONE TIME DOSE FENTANYL ORDERED. PATIENT COMPLAINS PAIN IN "LEFT LUNG" AND INCISIONAL PAIN. INA INTACT IN ABD. INCISION AND SL. RED. NO DRAINAGE. HAD RIGHT HEMICOLECTOMY LAST WEEK.
[2019-09-17] MEDS ORDERED: fentaNYL INJECTION 100 MCG/2 ML AMP IVP NR (17:15)
[2019-09-17] MEDS: VANCOMYCIN INJECTION 750 MG in NS (IVPB) 250 ML IV SCH (17:22)
[2019-09-17] MEDS: ENOXAPARIN 30 MG/0.3 ML (LOVENOX) SYR SC SCH (17:27)
[2019-09-17] MEDS: CYCLOBENZAPRINE 10 MG (FLEXERIL) TAB PO PRN (17:57)
--- NOTE | 2019-09-17 18:00 | NUR ---
DR. MESSER NOTIFIED OF PATIENT'S REQUEST FOR STEROID. STATES SHE WILL PUT IN ORDER FOR IV MEDICATION.
--- NOTE | 2019-09-17 18:15 | History & Physical ---
HPI History of Present Illness: 49 yo F that presents for shortness of breath and PNA. Patient was admitted yesterday and decided to leave AMA. Patient states that she went back home and got worse and so when she had appt with Dr Watson for f.u from her surgery she asked him to call me and admit her to hospital. She denies any fever or chills. States that she has been having pain in her abdomen where her incision is. She has noticed some mild redness along the incision. Denies any drainage. She has been coughing and is very short of breath with any activity. CXR yesterday showed new lung infiltrate. Source: patient Exam Limitations: no limitations Date seen by provider: Sep 17, 2019 Time Seen by Provider: 17:20 Attending Physician Talita Ybarra MD [facility] [place] Consult Date of Admission Sep 17, 2019 at 14:44 Home Medications Home Medications Reviewed patient Home Medication Reconciliation performed by pharmacy medication reconciliations pharmacy laboratory technician and/or nursing. Patients Allergies have been reviewed. Allergies Coded Allergies: ofloxacin (Verified Allergy, Mild, 02/04/19) Penicillins (Verified Allergy, Unknown, Pt has received Ceftriaxone & Cefepime in the past w/o issue, 02/04/19) amoxicillin (Verified Allergy, Unknown, 02/04/19) clavulanic acid (Verified Allergy, Unknown, 02/04/19) promethazine (Verified Allergy, Unknown, 02/04/19) propoxyphene (Verified Allergy, Unknown, 02/04/19) ketorolac (Verified Adverse Reaction, Unknown, 11/08/17) tramadol (Verified Adverse Reaction, Unknown, 11/08/17) LTW-Gltvux-Hyznyx Hx Patient Social History Drug of Choice: Smokes THC at times for pain Type Used: Cigarettes 2nd Hand Smoke Exposure: No Recent Foreign Travel: No Contact w/other who traveled: No Recent Hopitalizations: No Recent Infectious Disease Expo: No Immunizations Up To Date Tetanus Booster (TDap): Unknown Date of Pneumonia Vaccine: Jul 26, 2009 Date of Influenza Vaccine: Aug 26, 2019 Past Medical History Past Medical History 1. Chronic Alcoholism 2. Chronic Narcotic abuse with multiple admissions for overdoses 3. Tobaccoism 4. Multiple hospital admissions for overdoses of alcohol and narcotics 5. 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 History of chronic pancreatitis 7. Anxiety and Depression with history of admission for suicide attempt 8. Chronic Obstructive Pulmonary Disease 9. THC use 10. History of aspiration pneumonia secondary to overdose and ARDS 11. 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 12. Migraines 13. Osteoporosis 14. History of gastric ulcer 15. Osteoarthritis 16. Anxiety /Bipolar Disorder 17. Bilateral Carpal Tunnel 18. History of involuntary committal to inpatient psychiatric facility Past Surgical History 1. Cholecystectomy 1991 2. AJMEY BSO- for gangenous uterus 3. Lt. TKA 4. Lt. Leg fracture around prosthesis resulting in poor healing fracture with Lt. AKA. 5. Hiatal Hernia Repair 6. Abdominal Hernia repair with mesh 7. Teeth extraction 8. Revision of Lt. AKA stump Dr. Mario Alberto Hodge 12-15-14 Family Medical History Significant Family History: No Pertinent Family Hx Family History: Alzheimer's disease 19 FATHER 19 MOTHER Asthma 19 FATHER Completed stroke 19 FATHER Deafness or hearing loss 19 FATHER Dementia 19 FATHER Diabetes mellitus 19 FATHER 19 MOTHER Headache disorder 19 FATHER Hypertension 19 FATHER 19 MOTHER Myocardial infarction 19 FATHER 19 MOTHER Respiratory disorder 19 FATHER No Family History of: Kidney disease Review of Systems ([facility]) Constitutional: No chills, No fever; malaise, weakness EENTM: nose congestion; No nose pain, No throat pain, No throat swelling Respiratory: cough, dyspnea on exertion, short of breath Cardiovascular: no symptoms reported; No chest pain, No edema, No palpitations Gastrointestinal: abdominal pain; No constipation, No diarrhea; loss of appetite; No nausea, No vomiting Genitourinary: no symptoms reported; No dysuria, No frequency, No hematuria : No Musculoskeletal: no symptoms reported Skin: other (abdominal incision) Psychiatric/Neurological: Anxiety Physical Exam-([facility]) Physical Exam Vital Signs VS - Last 72 Hours, by Label 09/17/19 09/17/19 09/17/19 15:32 15:46 16:00 Temp 36.8 36.6 Pulse 87 98 Resp 20 18 B/P (MAP) 119/78 125/69 (87) Pulse Ox 90 87 O2 Delivery Room Air Room Air Nasal Cannula O2 Flow Rate 3.00 Capillary Refill : General Appearance: WD/WN, no apparent distress HEENT: PERRL/EOMI Neck: non-tender, full range of motion, supple Respiratory: chest non-tender, no accessory muscle use, decreased breath sounds, crackles, wheezing Cardiovascular: normal peripheral pulses, regular rate, rhythm, no edema, no murmur Gastrointestinal: soft, distended, tenderness (diffuse) Back: no CVA tenderness, no vertebral tenderness Extremities: other (L BKA) 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 nml as tested, no motor/sensory deficits, a lert, normal mood/affect, oriented x 3 Skin: normal color, warm/dry Lymphatic: no adenopathy Assessment/Plan Assessment/Plan Admission Status: Observation (1) HCAP (healthcare-associated pneumonia) Status: Acute Assessment & Plan: - Cefepime/Vanco, MAT protocol, IV steroids (2) COPD exacerbation Status: Acute Assessment & Plan: - See Above (3) Abdominal pain Status: Acute Assessment & Plan: - Recent Ex Lap with Dr Watson, Surgery consulted Qualifiers: Qualified Codes: R10.84 - Generalized abdominal pain (4) Chronic pain Status: Chronic Assessment & Plan: - Continue home meds (5) Peripheral vascular disease Status: Chronic (6) Tobacco abuse Status: Chronic (7) DVT prophylaxis Status: Acute Assessment & Plan: - Lovenox Clinical Quality Measures DVT/VTE Risk/Contraindication: Risk Factor Score Per Nursin RFS Level Per Nursing on Admit: 4+=Very High Copy Copies To 1: TALITA YBARRA MD, HOLLY R MD Sep 17, 2019 18:15
[2019-09-17] MEDS: HYDROcodone/APAP 7.5 MG/325 MG (LORTAB, LORCET PLUS) TABLET PO PRN (19:00)
[2019-09-17 20:00] VITALS: BP 131/80
[2019-09-17] MEDS ORDERED: RT-ADVAIR HFA 115/21 MCG PER PUFF IH SCH (20:00)
[2019-09-17] MEDS ORDERED: RT-ADVAIR HFA 45/21 MCG PER PUFF IH SCH (20:00)
[2019-09-17] MEDS: LORazepam 0.5 MG (ATIVAN) TABLET PO PRN (20:17)
[2019-09-17] MEDS: CATHETER FLUSH 10 ML SYR IV SCH (20:17)
[2019-09-17] MEDS ORDERED: NON-FORMULARY MEDICATION 1 EA EA (Budesonide/Formoterol Fumarate (Symbicort 80-4.5 Mcg Inh IH SCH (21:00)
[2019-09-17] MEDS: RT-ALBUTEROL/IPRATROPIUM 3 ML (DUONEB) VIAL INH SCH ×2 (21:40→23:07)
[2019-09-18 00:25] VITALS: BP 163/90
[2019-09-18] MEDS: HYDROcodone/APAP 7.5 MG/325 MG (LORTAB, LORCET PLUS) TABLET PO PRN ×4 (01:23→20:23)
[2019-09-18] MEDS: RT-ALBUTEROL/IPRATROPIUM 3 ML (DUONEB) VIAL INH SCH ×6 (02:50→20:37)
[2019-09-18 04:00] VITALS: BP 135/86
[2019-09-18 05:11] LABS: BASOPHILS % (AUTO) 0 % (0-10); EOSINOPHILS # (AUTO) 0.2 10^3/uL (0.0-0.3); EOSINOPHILS % (AUTO) 2 % (0-10); HEMATOCRIT 35 % (35-52); HEMOGLOBIN 10.4 G/DL (11.5-16.0); LYMPHOCYTES # (AUTO) 1.4 X 10^3 (1.0-4.0); LYMPHOCYTES % (AUTO) 15 % (12-44); MEAN CORPUSCULAR HEMOGLOBIN 29 PG (25-34); MEAN CORPUSCULAR HGB CONC 30 G/DL (32-36); MEAN CORPUSCULAR VOLUME 98 FL (80-99); MEAN PLATELET VOLUME 10.7 FL (7.4-10.4); MONOCYTES # (AUTO) 1.3 X 10^3 (0.0-1.0); MONOCYTES % (AUTO) 15 % (0-12); NEUTROPHILS # (AUTO) 6.2 X 10^3 (1.8-7.8); NEUTROPHILS % (AUTO) 69 % (42-75); PLATELET COUNT 332 10^3/uL (130-400); RED CELL DISTRIBUTION WIDTH 18.5 % (10.0-14.5)
[2019-09-18 05:35] LABS: CALCIUM 9.8 MG/DL (8.5-10.1); CREATININE SERUM 1.41 MG/DL (0.60-1.30); POTASSIUM 4.1 MMOL/L (3.6-5.0)
[2019-09-18] MEDS: LIPASE/AMYLASE/PROTEASE (PANCRELIPASE) 5,000 UNITS CAP PO SCH ×3 (06:11→17:06)
[2019-09-18] MEDS: CATHETER FLUSH 10 ML SYR IV SCH ×3 (06:11→22:00)
[2019-09-18 08:00] VITALS: BP 175/98
[2019-09-18] MEDS: GABAPENTIN 400 MG (NEURONTIN) CAP PO SCH ×4 (09:05→20:22)
[2019-09-18] MEDS: NICOTINE 21 MG (NICODERM) PATCH TD SCH (09:05)
[2019-09-18] MEDS: LORATADINE (CLARITIN) 10 MG TAB PO SCH (09:05)
[2019-09-18] MEDS: LIDOCAINE 4% (SALONPAS) PATCH TOP SCH (09:05)
[2019-09-18] MEDS: NICOTINE PATCH REMOVAL TP SCH (09:06)
[2019-09-18] MEDS: FLUTICASONE NASAL SPRAY (FLONASE) 16 GM BTL NS SCH (09:06)
[2019-09-18] MEDS: LORazepam 0.5 MG (ATIVAN) TABLET PO PRN ×3 (10:01→23:01)
--- NOTE | 2019-09-18 11:28 | Progress Note - Surgery ---
Subjective Time Seen by a Provider: 11:19 Subjective/Events-last exam Pt seen and examined, states she feels fine today. "Better than yesterday" Review of Systems General: No Chills Cardiovascular: No: Chest Pain, Palpitations Gastrointestinal: Abdominal Pain (minimal); No: Nausea, Vomiting Objective Exam Vital Signs Date Time Temp Pulse Resp B/P (MAP) Pulse Ox O2 Delivery O2 Flow Rate FiO2 09/18/19 08:00 36.8 106 22 175/98 (123) 94 Nasal Cannula 3.00 09/18/19 07:31 86 Room Air 09/18/19 04:00 36.6 87 20 135/86 (102) 96 Nasal Cannula 3.00 09/18/19 02:50 93 Nasal Cannula 2.00 09/18/19 00:25 36.1 64 20 163/90 (114) 96 Nasal Cannula 3.00 09/17/19 23:07 89 09/17/19 20:00 37.0 83 20 131/80 (97) 94 Nasal Cannula 2.00 09/17/19 19:00 94 Nasal Cannula 2.00 09/17/19 18:02 Nasal Cannula 09/17/19 16:00 36.6 98 18 125/69 (87) 87 Nasal Cannula 3.00 09/17/19 15:46 Room Air 09/17/19 15:32 36.8 87 20 119/78 90 Room Air I & O 09/18/19 07:00 Intake Total 1493.5 ml Balance 1493.5 ml Capillary Refill : Less Than 3 Seconds General Appearance: No Apparent Distress, Chronically ill, Thin Respiratory: Chest Non Tender, Normal Breath Sounds, No Accessory Muscle Use Cardiovascular: Regular Rate, Rhythm Gastrointestinal: soft, distended (minimal), tenderness (mostly at midline incision), other (minimal crepitance LUQ, no erythema around subQ air) Results Lab Laboratory Tests 09/18/19 04:35: White Blood Count 9.0, Red Blood Count 3.58L, Hemoglobin 10.4L, Hematocrit 35, Mean Corpuscular Volume 98, Mean Corpuscular Hemoglobin 29, Mean Corpuscular Hemoglobin Concent 30L, Red Cell Distribution Width 18.5H, Platelet Count 332, Mean Platelet Volume 10.7H, Neutrophils (%) (Auto) 69, Lymphocytes (%) (Auto) 15, Monocytes (%) (Auto) 15H, Eosinophils (%) (Auto) 2, Basophils (%) (Auto) 0, Neutrophils # (Auto) 6.2, Lymphocytes # (Auto) 1.4, Monocytes # (Auto) 1.3H, Eosinophils # (Auto) 0.2, Basophils # (Auto) 0.0, Sodium Level 146H, Potassium Level 4.1, Chloride Level 105, Carbon Dioxide Level 29, Anion Gap 12, Blood Urea Nitrogen 34H, Creatinine 1.41H, Estimat Glomerular Filtration Rate 39, BUN/Creatinine Ratio 24, Glucose Level 106H, Calcium Level 9.8 Assessment/Plan Assessment/Plan Assessment/Plan S/P Right Colon resection Abdominal SubQ air I cannot figure out how pt got subQ air, it does not look like abscess or cellulitis and no communication with bowel. Pt can be d/c home when ok with medicine. Clinical Quality Measures DVT/VTE Risk/Contraindication: Risk Factor Score Per Nursin RFS Level Per Nursing on Admit: 4+=Very High VALENTINO CLEMENTE DO Sep 18, 2019 11:28
[2019-09-18] MEDS: ADVAIR HFA 45/21 MCG INHALER 8 GM IH SCH ×3 (11:45→20:43)
[2019-09-18] MEDS ORDERED: LORazepam INJ 2 MG/ML (ATIVAN) VIAL IVP NR (11:45)
[2019-09-18 12:00] VITALS: BP 148/90
[2019-09-18] MEDS: methylPREDNISolone 40 MG/ML (Solu-MEDROL) VIAL IV SCH ×2 (12:42→20:22)
--- NOTE | 2019-09-18 13:07 | Progress Note ---
Subjective Subjective/Events-last exam Patient states that she is feeling better this AM. She took her oxygen off for a while. She is upset because her son got arrested last night and she is very anxious. Tolerating PO diet. Review of Systems Pulmonary: Dyspnea, Cough Cardiovascular: No: Chest Pain, Palpitations Gastrointestinal: Abdominal Pain; No: Nausea, Vomiting Musculoskeletal: back pain Neurological: Other (Anxiety) Objective Exam Last Set of Vital Signs Vital Signs Date Time Temp Pulse Resp B/P (MAP) Pulse Ox O2 Delivery O2 Flow Rate FiO2 09/18/19 12:00 36.6 94 20 148/90 (109) 92 Nasal Cannula 3.00 Capillary Refill : Less Than 3 Seconds I&O Intake and Output 09/18/19 00:00 Intake Total 966 ml Balance 966 ml Intake Oral 966 ml # Voids 3 Daily Weight Change Yes, 2-13 lbs Yes, 2-13 lbs General: Alert, Oriented X3, Cooperative, No Acute Distress HEENT: Mucous Memb Moist/[place] Lungs: Clear to Auscultation, Normal Air Movement Heart: Regular Rate, No Murmurs Abdomen: Normal Bowel Sounds, Soft, No Masses, Other (mild distention) Extremities: No Edema, Other (L AKA) Neuro: Normal Speech Results/Procedures Lab Laboratory Tests 09/18/19 04:35: White Blood Count 9.0, Red Blood Count 3.58L, Hemoglobin 10.4L, Hematocrit 35, Mean Corpuscular Volume 98, Mean Corpuscular Hemoglobin 29, Mean Corpuscular Hemoglobin Concent 30L, Red Cell Distribution Width 18.5H, Platelet Count 332, Mean Platelet Volume 10.7H, Neutrophils (%) (Auto) 69, Lymphocytes (%) (Auto) 15, Monocytes (%) (Auto) 15H, Eosinophils (%) (Auto) 2, Basophils (%) (Auto) 0, Neutrophils # (Auto) 6.2, Lymphocytes # (Auto) 1.4, Monocytes # (Auto) 1.3H, Eosinophils # (Auto) 0.2, Basophils # (Auto) 0.0, Sodium Level 146H, Potassium Level 4.1, Chloride Level 105, Carbon Dioxide Level 29, Anion Gap 12, Blood Urea Nitrogen 34H, Creatinine 1.41H, Estimat Glomerular Filtration Rate 39, BUN/Creatinine Ratio 24, Glucose Level 106H, Calcium Level 9.8 Assessment/Plan Assessment/Plan (1) HCAP (healthcare-associated pneumonia) Status: Acute Assessment & Plan: - Cefepime/Vanco, MAT protocol, IV steroids 09/18: Continue IV antibiotics and IV steroid (2) COPD exacerbation Status: Acute Assessment & Plan: - See Above (3) Abdominal pain Status: Acute Assessment & Plan: - Recent Ex Lap with Dr Watson, Surgery consulted Qualifiers: Qualified Codes: R10.84 - Generalized abdominal pain (4) Chronic pain Status: Chronic Assessment & Plan: - Continue home meds (5) Peripheral vascular disease Status: Chronic (6) Tobacco abuse Status: Chronic (7) DVT prophylaxis Status: Acute Assessment & Plan: - Lovenox Clinical Quality Measures DVT/VTE Risk/Contraindication: Risk Factor Score Per Nursin RFS Level Per Nursing on Admit: 4+=Very High TALITA MESSER MD Sep 18, 2019 13:07
[2019-09-18 16:00] VITALS: BP 127/84
[2019-09-18] MEDS: VANCOMYCIN INJECTION 750 MG in NS (IVPB) 250 ML IV SCH (16:02)
[2019-09-18] MEDS: CEFEPIME INJECTION 2,000 MG in WATER (STERILE) FOR INJECTION 20 ML IV SCH (16:03)
[2019-09-18] MEDS: ENOXAPARIN 30 MG/0.3 ML (LOVENOX) SYR SC SCH (17:07)
[2019-09-18 20:00] VITALS: BP 135/91
[2019-09-18] MEDS: CYCLOBENZAPRINE 10 MG (FLEXERIL) TAB PO PRN (20:23)
[2019-09-18] MEDS ORDERED: LIDOCAINE PATCH REMOVAL TP SCH (21:00)
[2019-09-19 00:15] VITALS: BP 151/82
[2019-09-19] MEDS: RT-ALBUTEROL/IPRATROPIUM 3 ML (DUONEB) VIAL INH SCH ×2 (02:47→10:08)
[2019-09-19] MEDS: HYDROcodone/APAP 7.5 MG/325 MG (LORTAB, LORCET PLUS) TABLET PO PRN ×2 (02:59→08:04)
[2019-09-19 04:30] VITALS: BP 170/110
[2019-09-19 05:09] LABS: BASOPHILS % (AUTO) 0 % (0-10); EOSINOPHILS % (AUTO) 0 % (0-10); HEMATOCRIT 35 % (35-52); HEMOGLOBIN 10.5 G/DL (11.5-16.0); LYMPHOCYTES # (AUTO) 0.4 X 10^3 (1.0-4.0); LYMPHOCYTES % (AUTO) 5 % (12-44); MEAN CORPUSCULAR HEMOGLOBIN 29 PG (25-34); MEAN CORPUSCULAR HGB CONC 30 G/DL (32-36); MEAN CORPUSCULAR VOLUME 97 FL (80-99); MEAN PLATELET VOLUME 10.6 FL (7.4-10.4); MONOCYTES # (AUTO) 0.7 X 10^3 (0.0-1.0); MONOCYTES % (AUTO) 8 % (0-12); NEUTROPHILS # (AUTO) 7.6 X 10^3 (1.8-7.8); NEUTROPHILS % (AUTO) 87 % (42-75); PLATELET COUNT 313 10^3/uL (130-400); RED CELL DISTRIBUTION WIDTH 18.4 % (10.0-14.5); WHITE BLOOD COUNT 8.7 10^3/uL (4.3-11.0)
[2019-09-19] MEDS: LORazepam 0.5 MG (ATIVAN) TABLET PO PRN (05:31)
[2019-09-19 05:44] LABS: CALCIUM 10.2 MG/DL (8.5-10.1); CREATININE SERUM 1.14 MG/DL (0.60-1.30); POTASSIUM 4.7 MMOL/L (3.6-5.0)
[2019-09-19 06:22] VITALS: BP 158/100
[2019-09-19] MEDS: CATHETER FLUSH 10 ML SYR IV SCH (06:22)
[2019-09-19] MEDS: LIPASE/AMYLASE/PROTEASE (PANCRELIPASE) 5,000 UNITS CAP PO SCH (06:22)
[2019-09-19 08:00] VITALS: BP 163/107
[2019-09-19] MEDS: LIDOCAINE 4% (SALONPAS) PATCH TOP SCH (08:04)
[2019-09-19] MEDS: NICOTINE 21 MG (NICODERM) PATCH TD SCH (08:04)
[2019-09-19] MEDS: NICOTINE PATCH REMOVAL TP SCH (08:05)
[2019-09-19] MEDS: GABAPENTIN 400 MG (NEURONTIN) CAP PO SCH (08:05)
[2019-09-19] MEDS: methylPREDNISolone 40 MG/ML (Solu-MEDROL) VIAL IV SCH (08:05)
[2019-09-19] MEDS: LORATADINE (CLARITIN) 10 MG TAB PO SCH (08:05)
[2019-09-19] MEDS: FLUTICASONE NASAL SPRAY (FLONASE) 16 GM BTL NS SCH (08:05)
[2019-09-19] MEDS: ADVAIR HFA 45/21 MCG INHALER 8 GM IH SCH (10:09)
--- NOTE | 2019-09-19 10:30 | NUR ---
LAB CALLED ABOUT POSITIVE BLOOD CULTURE. DR. NERI NOTIFIED OF LAB RESULTS. LAB ALSO STATED THAT THEY NOTIFIED DR. MESSER YESTERDAY.
[2019-09-19] MEDS ORDERED: PRED10TA22 PO (11:03)
[2019-09-19] MEDS ORDERED: IPRA3AMP31 INH (11:03)
[2019-09-19] MEDS ORDERED: HYDR-3812 PO (11:03)
[2019-09-19] MEDS ORDERED: SULF1TAB35 PO (11:09)
[2019-09-19] MEDS ORDERED: BUDE10.22 IH (11:09)
[2019-09-19] MEDS ORDERED: FLUT16SP22 NS (11:09)
[2019-09-19] MEDS ORDERED: RT-ALBUINH IH (11:09)
--- NOTE | 2019-09-19 11:11 | Discharge Summary ---
Discharge Summary Hospital Course Was the Problem List Reviewed?: Yes Problems/Dx: (1) Pneumonia Status: Acute Qualifiers: Qualified Codes: J18.9 - Pneumonia, unspecified organism (2) COPD (chronic obstructive pulmonary disease) Status: Acute (3) Hypoxia Status: Chronic (4) Tobacco use Status: Chronic Hospital Course Date of Admission: Sep 17, 2019 at 14:44 Admission Diagnosis : Family Physician/Provider: [place] [place] Date of Discharge: 09/19/19 Discharge Diagnosis: HCAP, Sepsis, Bacteremia with ESBL BCx sensitive to Bactrim, ARF on admit, AECOPD, non-compliance, Smoker Hospital Course: Patient had a brief hospital course at her request. Patient left AMA when she was admitted 1 day earlier but reluctantly came back and agreed to stay until Saturday. Vanc and Cefepime was ordered and BCx ultimately revealed ESBL sens itive to Bactrim and considering her increased creat at 1.4 on admit I recommended rechecking labs Saturday since she INSISTED on DC today so I felt she needed abx converage instead of leaving AMA. Neb machine ordered and she already had O2 at home with [facility]. Labs and Pending Lab Test: Laboratory Tests 09/19/19 05:01: White Blood Count 8.7, Red Blood Count 3.64L, Hemoglobin 10.5L, Hematocrit 35, Mean Corpuscular Volume 97, Mean Corpuscular Hemoglobin 29, Mean Corpuscular Hemoglobin Concent 30L, Red Cell Distribution Width 18.4H, Platelet Count 313, Mean Platelet Volume 10.6H, Neutrophils (%) (Auto) 87H, Lymphocytes (%) (Auto) 5L, Monocytes (%) (Auto) 8, Eosinophils (%) (Auto) 0, Basophils (%) (Auto) 0, Neutrophils # (Auto) 7.6, Lymphocytes # (Auto) 0.4L, Monocytes # (Auto) 0.7, Eosinophils # (Auto) 0.0, Basophils # (Auto) 0.0, Sodium Level 136, Potassium Level 4.7, Chloride Level 98, Carbon Dioxide Level 27, Anion Gap 11, Blood Urea Nitrogen 26H, Creatinine 1.14, Estimat Glomerular Filtration Rate 50, BUN/Creatinine Ratio 23, Glucose Level 113H, Calcium Level 10.2H Home Meds Active Bactrim Ds Tablet (Sulfamethoxazole/Trimethoprim) 1 Each Tablet 1 Each PO BID Proair Hfa (Albuterol Sulfate) 1 Puff Puff 2 Puff IH Q4H PRN Symbicort 80-4.5 Mcg Inhaler (Budesonide/Formoterol Fumarate) 10.2 Gm Hfa.aer.ad 2 Puff IH BID Fluticasone Propionate 16 Gm [place].susp 2 Sprays NS DAILY Prednisone 10 Mg Tab.ds.pk 10 Mg PO DAILY Take 6 tabs(60mg)daily,decrease by 1 tab(10MG)daily. Iprat-Albut 0.5-3(2.5) mg/3 ml (Ipratropium/Albuterol Sulfate) 3 Ml Ampul.neb 3 Ml INH RTQ4HR Hydrocodone-Acetamin 5-325 mg (Hydrocodone/Acetaminophen) 1 Each Tablet 1 Tab PO Q6H PRN Reported Cyclobenzaprine HCl 10 Mg Tablet 5 Mg PO DAILY PRN Prednisone 20 Mg Tab PO UD 28 Days TAKE 1 TAB DAILY X 14 DAYS THEN TAKE 1/2 TAB DAILY X 14 DAYS FILLED #21 20 Lidocaine 5% Patch (Lidocaine) 1 Each Adh..patch TOP DAILY LAST FILLED #30 07-28-19 Cyclobenzaprine HCl 10 Mg Tablet 10 Mg PO HS Gabapentin 800 Mg Tablet 800 Mg PO QID FILLED #56 08-24-19 Centrum Silver Tablet (Multivit-Min/FA/Lycopene/Lut) 1 Each Tablet 1 Tab PO DAILY Pancreruby Pretty 16,800 Unit Cap (Lipase/Protease/Amylase) 1 Each Capsule.dr 1 Cap PO TIDAC Dicyclomine HCl 10 Mg Capsule 20 Mg PO TID PRN TAKES 2 (10MG) CAPSULES Cetirizine HCl 10 Mg Tablet 10 Mg PO DAILY Assessment/Pt Instructions [facility] this week Discharge Planning: <30 minutes discharge planning Discharge Instructions Discharge Diet: No Restrictions Activity as Tolerated: Yes Discharge Physical Examination Vital Signs Vital Signs Date Time Temp Pulse Resp B/P (MAP) Pulse Ox O2 Delivery O2 Flow Rate FiO2 09/19/19 10:11 90 Nasal Cannula 2.00 09/19/19 08:00 37.2 103 18 163/107 (125) General Appearance: No Apparent Distress, WD/WN, Chronically ill Respiratory: Lungs Clear, Normal Breath Sounds, No Accessory Muscle Use, No Respiratory Distress Cardiovascular: Regular Rate, Rhythm, No Edema, No Gallop, No JVD, No Murmur, Normal Peripheral Pulses Neurologic/Psychiatric: Alert, Oriented x3, No Motor/Sensory Deficits, Normal Mood/Affect Allergies: Coded Allergies: ofloxacin (Verified Allergy, Mild, 02/04/19) Penicillins (Verified Allergy, Unknown, Pt has received Ceftriaxone & Cefepime in the past w/o issue, 02/04/19) amoxicillin (Verified Allergy, Unknown, 02/04/19) clavulanic acid (Verified Allergy, Unknown, 02/04/19) promethazine (Verified Allergy, Unknown, 02/04/19) propoxyphene (Verified Allergy, Unknown, 02/04/19) ketorolac (Verified Adverse Reaction, Unknown, 11/08/17) tramadol (Verified Adverse Reaction, Unknown, 11/08/17) Discharge Summary Date of Admission Sep 17, 2019 at 14:44 Date of Discharge Discharge Date: Sep 19, 2019 Clinical Quality Measures DVT/VTE Risk/Contraindication: Risk Factor Score Per Nursin RFS Level Per Nursing on Admit: 4+=Very High ELVIS NERI DO Sep 19, 2019 11:11
[2019-09-19 11:30] VITALS: BP 163/107
--- NOTE | 2019-09-19 11:30 | NUR ---
SOPHIE CORNELIUS demonstrates understanding of discharge instructions and accurately returns instructions upon questioning. Copy of Post-Discharge Instructions given to PT. SOPHIE CORNELIUS is able to manage continuing needs after discharge. Patients belongings returned to PT. Patient discharged from [facility]- on 09/19/19 at 1130. SOPHIE CORNELIUS left floor via W/C, accompanied by STAFF AND DAUGHTER PER W/C AND AUTO.
[2019-09-19] MEDS ORDERED: TROUGH ORDER-PHARMACY XX NR (15:30)
== END 2019-09-19 11:30 | disposition home or self-care (01) ==
LOC: 4TH 14:44
PROVIDERS: ADMIT Family Medicine; ATTEND Family Medicine
DX: J18.9 Pneumonia, unspecified organism (principal); J44.9 Chronic obstructive pulmonary disease, unspecified; I73.9 Peripheral vascular disease, unspecified; G43.909 Migraine, unspecified, not intractable, without status migrainosus; M81.0 Age-related osteoporosis without current pathological fracture; M19.90 Unspecified osteoarthritis, unspecified site; F17.210 Nicotine dependence, cigarettes, uncomplicated; F41.9 Anxiety disorder, unspecified; F32.9 Major depressive disorder, single episode, unspecified; Z88.1 Allergy status to other antibiotic agents; Z88.0 Allergy status to penicillin; Z88.8 Allergy status to other drugs, medicaments and biological substances; Z88.5 Allergy status to narcotic agent; Z90.49 Acquired absence of other specified parts of digestive tract; Z82.49 Family history of ischemic heart disease and other diseases of the circulatory system; Z83.3 Family history of diabetes mellitus; Z83.6 Family history of other diseases of the respiratory system
CPT/HCPCS: 36415; 80048; 85025; 94640; 94664; 94760

== ENCOUNTER 2019-10-29 21:15 | Observation (INO) | payer MEDICAID ==
[~2019-10-29] VITALS: Ht 155 cm; Wt 30.0 kg
[~2019-10-29 21:15] MED LIST changes: -HYDR-3812 PO; +IPRA3AMP31 INH; -OMEP-280 PO; +OMEP20CA18 PO
--- NOTE | 2019-10-29 21:25 | NUR ---
Bipap initiated per RT.
--- NOTE | 2019-10-29 21:27 | ED Respiratory ---
General Chief Complaint: Respiratory Problems Stated Complaint: SOB Source: patient Exam Limitations: no limitations History of Present Illness Date Seen by Provider: Oct 29, 2019 Time Seen by Provider: 21:25 Initial Comments to ER by EMS from home with reports of shortness of breath onset yesterday. Upon EMS arrival her oxygen saturation 84% on her baseline 2 L. She was given a DuoNeb, she was diffusely wheezing. She was admitted to the hospital for hospital-acquired pneumonia on 09/17-09/19 of this year treated with cefepime and vancomycin, this followed an admission for perforated abdominal viscus a few weeks before that. Upon arrival to ER brian she states "I think my pneumonia is back". She does want to be intubated if necessary. Timing/Duration: this morning Severity: moderate Associated Symptoms: cough, shortness of breath, wheezing Allergies and Home Medications Allergies Coded Allergies: ofloxacin (Verified Allergy, Mild, 02/04/19) Penicillins (Verified Allergy, Unknown, Pt has received Ceftriaxone & Cefepime in the past w/o issue, 02/04/19) amoxicillin (Verified Allergy, Unknown, 02/04/19) clavulanic acid (Verified Allergy, Unknown, 02/04/19) promethazine (Verified Allergy, Unknown, 02/04/19) propoxyphene (Verified Allergy, Unknown, 02/04/19) ketorolac (Verified Adverse Reaction, Unknown, 11/08/17) tramadol (Verified Adverse Reaction, Unknown, 11/08/17) Home Medications Albuterol Sulfate 1 Puff Puff, 2 PUFF IH Q4H PRN for SHORTNESS OF BREATH Prescribed by: ELVIS NERI on 09/19/19 1109 Budesonide/Formoterol Fumarate 10.2 Gm Hfa.aer.ad, 2 PUFF IH BID Prescribed by: ELVIS NERI on 09/19/19 1109 Cetirizine HCl 10 Mg Tablet, 10 MG PO DAILY, (Reported) Cyclobenzaprine HCl 10 Mg Tablet, 10 MG PO HS, (Reported) Cyclobenzaprine HCl 10 Mg Tablet, 5 MG PO DAILY PRN for MUSCLE SPASMS, (Reported) Dicyclomine HCl 10 Mg Capsule, 20 MG PO TID PRN for CRAMPS, (Reported) TAKES 2 (10MG) CAPSULES Fluticasone Propionate 16 Gm [place].susp, 2 SPRAYS NS DAILY Prescribed by: ELVIS NERI on 09/19/19 110 Gabapentin 800 Mg Tablet, 800 MG PO QID, (Reported) FILLED #56 08-24- Hydrocodone Bit/Acetaminophen 1 Each Tablet, 1 TAB PO Q6H PRN for PAIN-MODERATE (5-7) Prescribed by: ELVIS NERI on 09/19/19 110 Ipratropium/Albuterol Sulfate 3 Ml Ampul.neb, 3 ML INH RTQ4HR Prescribed by: ELVIS NERI on 09/19/19 110 Lidocaine 1 Each Adh..patch, TOP DAILY, (Reported) LAST FILLED #30 -- Lipase/Protease/Amylase 1 Each Capsule.dr, 1 CAP PO TIDAC, (Reported) Multivit-Min/FA/Lycopene/Lut 1 Each Tablet, 1 TAB PO DAILY, (Reported) Prednisone 10 Mg Tab.ds.pk, 10 MG PO DAILY Take 6 tabs(60mg)daily,decrease by 1 tab(10MG)daily. Prescribed by: ELVIS NERI on 09/19/191102 Sulfamethoxazole/Trimethoprim 1 Each Tablet, 1 EACH PO BID Prescribed by: ELVIS NERI on 09/19/19 110 Patient Home Medication List Home Medication List Reviewed: Yes Review of Systems Review of Systems Constitutional: see HPI EENTM: see HPI Respiratory: see HPI Cardiovascular: no symptoms reported Genitourinary: no symptoms reported Musculoskeletal: no symptoms reported Past Juqjrdz-Pfxmkb-Rmdklo Hx Patient Social History Alcohol Beverage of Choice: Beer Drug of Choice: Smokes THC at times for pain Type Used: Cigarettes 2nd Hand Smoke Exposure: No Recent Foreign Travel: No Contact w/Someone Who Travel: No Recent Hopitalizations: No Immunizations Up To Date Tetanus Booster (TDap): Unknown PED Vaccines UTD: No Date of Pneumonia Vaccine: Jul 26, 2009 Date of Influenza Vaccine: Aug 26, 2019 Seasonal Allergies Seasonal Allergies: No Past Medical History Surgeries: Yes (left leg amputation) Abdominal, Orthopedic Respiratory: Yes (ASPIRATION AND ARDS, wears O2 at home at 2 LPM) Asthma, Pneumonia, Chronic Bronchitis, COPD, Emphysema Currently Using CPAP: No Currently Using BIPAP: No Cardiac: Yes Hypertension Neurological: Yes (CHRONIC PHANTOM LEG PAIN, TREMORS) Headaches /Migraines, Stroke 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 Disorders: Yes 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 Sexually Transmitted Disease: No HIV/AIDS: No Genitourinary: Yes (CHRONIC RENAL INSUFFICIENCY) UTI-Chronic Gastrointestinal: Yes (right colon resection) Chronic Constipation Musculoskeletal: Yes Amputee, Osteoporosis, Fractures Endocrine: Yes (history of chronic pancreatitis) HEENT: Yes (EDENTULOUS; BILATERAL CATARACT SURGERY) Cataract Loss of Vision: Denies Hearing Impairment: Denies Cancer: No Psychosocial: Yes Anxiety, Suicide Attempts, Depression Integumentary: No Blood Disorders: No Adverse Reaction/Blood Tranf: No Family Medical History Alzheimer's disease 19 FATHER 19 MOTHER Asthma 19 FATHER Completed stroke 19 FATHER Deafness or hearing loss 19 FATHER Dementia 19 FATHER Diabetes mellitus 19 FATHER 19 MOTHER Headache disorder 19 FATHER Hypertension 19 FATHER 19 MOTHER Myocardial infarction 19 FATHER 19 MOTHER Respiratory disorder 19 FATHER No Family History of: Kidney disease No Pertinent Family Hx Physical Exam Vital Signs - First Documented 10/29/19 21:15 Temp 37.0 Pulse 110 Resp 40 B/P (MAP) 151/104 (120) Pulse Ox 90 O2 Delivery Nasal Cannula O2 Flow Rate 3.00 Capillary Refill : Height: 5'1.00" Weight: 82lbs. 0.0oz. 37.299580vb; 14.42 BMI Method:Stated General Appearance: WD/WN, moderate distress, thin Eyes: Bilateral Eye Normal Inspection, Bilateral Eye PERRL, Bilateral Eye EOMI HEENT: PERRL/EOMI, normal ENT inspection Respiratory: decreased breath sounds, accessory muscle use, other (decent air movement on the left, diminished on the right, no wheezing) Cardiovascular: regular rate, rhythm, no murmur Gastrointestinal: normal bowel sounds, soft Neurologic/Psychiatric: alert, normal mood/affect, oriented x 3 Skin: normal color, warm/dry Focused Exam Lactate Level 10/29/19 21:33: Lactic Acid Level 0.92 Lactic Acid Level Laboratory Tests Test 10/29/19 21:33 Lactic Acid Level 0.92 MMOL/L (0.50-2.00) Procedures/Interventions Date of ETT Placement: Sep 09, 2019 Time of ETT Placement: 2144 Progress/Results/Core Measures Suspected Sepsis SIRS Temperature: Pulse: Respiratory Rate: Laboratory Tests 10/29/19 21:21: White Blood Count 22.3H Blood Pressure / Mean: 10/29/19 21:33: Lactic Acid Level 0.92 Laboratory Tests 10/29/19 21:21: Creatinine 1.14, Platelet Count 295, Total Bilirubin 0.2 Results/Orders Lab Results Laboratory Tests Test 10/29/19 21:21 10/29/19 21:33 10/29/19 21:45 Range/Units White Blood Count 22.3 H 4.3-11.0 10^3/uL Red Blood Count 4.35 4.35-5.85 10^6/uL Hemoglobin 11.3 L 11.5-16.0 G/DL Hematocrit 40 35-52 % Mean Corpuscular Volume 91 80-99 FL Mean Corpuscular Hemoglobin 26 25-34 PG Mean Corpuscular Hemoglobin Concent 29 L 32-36 G/DL Red Cell Distribution Width 18.8 H 10.0-14.5 % Platelet Count 295 130-400 10^3/uL Mean Platelet Volume 11.0 H 7.4-10.4 FL Neutrophils (%) (Auto) 78 H 42-75 % Lymphocytes (%) (Auto) 7 L 12-44 % Monocytes (%) (Auto) 14 H 0-12 % Eosinophils (%) (Auto) 1 0-10 % Basophils (%) (Auto) 0 0-10 % Neutrophils # (Auto) 17.3 H 1.8-7.8 X 10^3 Lymphocytes # (Auto) 1.6 1.0-4.0 X 10^3 Monocytes # (Auto) 3.0 H 0.0-1.0 X 10^3 Eosinophils # (Auto) 0.3 0.0-0.3 10^3/uL Basophils # (Auto) 0.1 0.0-0.1 10^3/uL Neutrophils % (Manual) 81 % Lymphocytes % (Manual) 4 % Monocytes % (Manual) 8 % Eosinophils % (Manual) 0 % Basophils % (Manual) 0 % Band Neutrophils 7 % Hypochromasia SLIGHT Anisocytosis SLIGHT Microcytosis SLIGHT Macrocytosis SLIGHT Sodium Level 140 135-145 MMOL/L Potassium Level 4.4 3.6-5.0 MMOL/L Chloride Level 106 98-107 MMOL/L Carbon Dioxide Level 21 21-32 MMOL/L Anion Gap 13 5-14 MMOL/L Blood Urea Nitrogen 17 7-18 MG/DL Creatinine 1.14 0.60-1.30 MG/DL Estimat Glomerular Filtration Rate 50 BUN/Creatinine Ratio 15 Glucose Level 124 H 70-105 MG/DL Calcium Level 9.8 8.5-10.1 MG/DL Corrected Calcium 9.7 8.5-10.1 MG/DL Total Bilirubin 0.2 0.1-1.0 MG/DL Aspartate Amino Transf (AST/SGOT) 16 5-34 U/L Alanine Aminotransferase (ALT/SGPT) 7 0-55 U/L Alkaline Phosphatase 80 40-136 U/L B-Type Natriuretic Peptide 39.4 <100.0 PG/ML Total Protein 7.6 6.4-8.2 GM/DL Albumin 4.1 3.2-4.5 GM/DL Lactic Acid Level 0.92 0.50-2.00 MMOL/L Blood Gas Puncture Site RIGHT RADIAL Blood Gas Patient Temperature 37.0 Arterial Blood pH 7.29 *L 7.37-7.43 Arterial Blood Partial Pressure CO2 58 H 35-45 MMHG Arterial Blood Partial Pressure O2 237 H 79-93 MMHG Arterial Blood HCO3 27 23-27 MMOL/L Arterial Blood Total CO2 29.2 21.0-31.0 MMOL/L Arterial Blood Oxygen Saturation 99 94-100 % Arterial Blood Base Excess 1.5 -2.5-2.5 MMOL/L Marino Test YES-POS Blood Gas Ventilator Setting NO Blood Gas Inspired Oxygen 80% Micro Results Microbiology 10/29/19 Influenza Types A,B Antigen (CHELSY) - Final, Complete My Orders Orders - JUAN C FRANCISCO APRN Cbc With Automated Diff (10/29/19 21:20) Comprehensive Metabolic Panel (10/29/19 21:20) BNP (10/29/19 21:20) Blood Culture (10/29/19 21:20) Lactic Acid Analyzer (10/29/19 21:20) Influenza A And B Antigens (10/29/19 21:20) Methylprednisolone Sod Succ (Solu-Medrol (10/29/19 21:30) Grubbs Cath (10/29/19 21:31) Ua Culture If Indicated (10/29/19 21:31) Drug Screen Stat (Urine) (10/29/19 21:31) Manual Differential (10/29/19 21:21) Chest 1 View, Ap/Pa Only (10/29/19 21:39) Fentanyl Injection (Sublimaze Injection (10/29/19 22:00) Arterial Blood Gas (10/29/19 21:45) Procalcitonin (Pct) (10/29/19 21:55) Cefepime Injection (Maxipime Injection) (10/29/19 22:15) Medications Given in ED Current Medications Medications Dose Ordered Sig/Ely Route Start Time Stop Time Status Last Admin Dose Admin Fentanyl Citrate 50 mcg ONCE ONCE IVP 10/29/19 22:00 10/29/19 22:01 DC 10/29/19 22:03 50 MCG Methylprednisolone Sodium Succinate 125 mg ONCE ONCE IVP 10/29/19 21:30 10/29/19 21:31 DC 10/29/19 21:35 125 MG Vital Signs/I&O 10/29/19 21:15 Temp 37.0 Pulse 110 Resp 40 B/P (MAP) 151/104 (120) Pulse Ox 90 O2 Delivery Nasal Cannula O2 Flow Rate 3.00 Capillary Refill : Diagnostic Imaging Diagonstic Imaging: Xray Plain Films/CT/US/NM/MRI: chest Comments NAME: SOPHIE CORNELIUS MED REC#: [id number] PT STATUS: REG ER : 1970 PHYSICIAN: JUAN C FRANCISCO APRN ADMIT DATE: 10/29/19/ER Draft Date of Exam:10/29/19 CHEST 1 VIEW, AP/PA ONLY INDICATION: Dyspnea. EXAMINATION: AP view of the chest was obtained. COMPARISON: Study of 09/16/2019. FINDINGS: Overall heart size and pulmonary vascularity are within normal limits. There has been development of bilateral perihilar density. Interstitial markings are also prominent in the lung bases. There is blunting of both costophrenic sulci. IMPRESSION: Findings are suggestive of congestive heart failure with developing interstitial edema and possible mild pleural effusions. Dictated on workstation # [id number] Dict: 10/29/192202 Trans: 10/29/192204 [facility] [id number] Interpreted by: REGINA RAMIREZ MD Electronically signed by: Departure Communication (Admissions) Time/Spoke to Admitting Phy: 22:[address] Neri, will admit to ICU consultation Dr. Delgadillo 2201-patient refuses to wear the BiPAP any longer, once to just wear her oxygen. She feels like her breathing status has improved after 30 minutes or so [place] of BiPAP. 2217-oxygen saturation dropped to 78% with good waveform on 2 L of oxygen, she agreed to restart the BiPAP. BiPAP was restarted with settings 10/5, FiO2 was reduced from 80% (during first ABG) down to 50% FiO2, SPO2 subsequently increased to 98%.. Impression Primary Impression: Respiratory distress Additional Impression: COPD with exacerbation Disposition: ADMITTED INPATIENT Condition: Stable Admissions Decision to Admit Reason: Admit from ER (General) Decision to Admit/Date: Oct 29, 2019 Time/Decision to Admit Time: 21:27 Departure-Patient Inst. Referrals: [facility] (PCP/Family) Primary Care Physician JUAN C FRANCISCO APRN Oct 29, 2019 21:27
[2019-10-29] MEDS ORDERED: methylPREDNISolone 125 MG (Solu-MEDROL) VIAL IVP ONE (21:30)
[2019-10-29 21:33] LABS: BASOPHILS # (AUTO) 0.1 10^3/uL (0.0-0.1); BASOPHILS % (AUTO) 0 % (0-10); EOSINOPHILS # (AUTO) 0.3 10^3/uL (0.0-0.3); EOSINOPHILS % (AUTO) 1 % (0-10); HEMATOCRIT 40 % (35-52); HEMOGLOBIN 11.3 G/DL (11.5-16.0); LYMPHOCYTES # (AUTO) 1.6 X 10^3 (1.0-4.0); LYMPHOCYTES % (AUTO) 7 % (12-44); MEAN CORPUSCULAR HEMOGLOBIN 26 PG (25-34); MEAN CORPUSCULAR HGB CONC 29 G/DL (32-36); MEAN CORPUSCULAR VOLUME 91 FL (80-99); MONOCYTES % (AUTO) 14 % (0-12); NEUTROPHILS # (AUTO) 17.3 X 10^3 (1.8-7.8); NEUTROPHILS % (AUTO) 78 % (42-75); PLATELET COUNT 295 10^3/uL (130-400); RED CELL DISTRIBUTION WIDTH 18.8 % (10.0-14.5); WHITE BLOOD COUNT 22.3 10^3/uL (4.3-11.0)
[2019-10-29 21:50] LABS: ALBUMIN 4.1 GM/DL (3.2-4.5); BILIRUBIN,TOTAL 0.2 MG/DL (0.1-1.0); CALCIUM 9.8 MG/DL (8.5-10.1); CREATININE SERUM 1.14 MG/DL (0.60-1.30); POTASSIUM 4.4 MMOL/L (3.6-5.0); TOTAL PROTEIN 7.6 GM/DL (6.4-8.2)
[2019-10-29 21:55] LABS: BAND NEUTROPHILS 7 %; BASOPHILS % (MANUAL) 0 %; EOSINOPHILS % (MANUAL) 0 %; LYMPHOCYTES % (MANUAL) 4 %; MONOCYTES % (MANUAL) 8 %; NEUTROPHILS % (MANUAL) 81 %
[2019-10-29 21:56] LABS: ANISOCYTOSIS SLIGHT; HYPOCHROMASIA SLIGHT; MICROCYTOSIS SLIGHT
[2019-10-29] MEDS ORDERED: fentaNYL INJECTION 100 MCG/2 ML AMP IVP ONE (22:00)
--- NOTE | 2019-10-29 22:00 | NUR ---
Pt requests to have Bipap removed stating, "I feel better, I want it off." Provider removed bipap at this time. Pt placed on 3L via nc et tolerating well with SPO2 98%.
[2019-10-29 22:01] LABS: ABG BASE EXCESS 1.5 MMOL/L (-2.5-2.5); ABG OXYGEN SATURATION 99 % (94-100); ABG PCO2 58 MMHG (35-45); ABG PO2 237 MMHG (79-93); ABG TCO2 29.2 MMOL/L (21.0-31.0)
[2019-10-29 22:03] LABS: ABG PH 7.29 (7.37-7.43); ALLENS TEST YES-POS; INSPIRED O2 80%; VENTILATOR NO
--- NOTE | 2019-10-29 22:05 | Diagnostic Imaging Report ---
INDICATION: Dyspnea. EXAMINATION: AP view of the chest was obtained. COMPARISON: Study of 09/16/2019. FINDINGS: Overall heart size and pulmonary vascularity are within normal limits. There has been development of bilateral perihilar density. Interstitial markings are also prominent in the lung bases. There is blunting of both costophrenic sulci. IMPRESSION: Findings are suggestive of congestive heart failure with developing interstitial edema and possible mild pleural effusions. Dictated by: Dictated on workstation # [id number]
[2019-10-29] MEDS ORDERED: CEFEPIME INJECTION 1,000 MG in WATER (STERILE) FOR INJECTION 10 ML IV ONE (22:15)
--- NOTE | 2019-10-29 22:15 | NUR ---
O2 sat dropped to 78% via 3L nc. Bipap applied by provider. FIO2 80% EPAP 5 IPAP 10 Rate 16
[2019-10-29] MEDS ORDERED: FUROSEMIDE 40 MG/4 ML INJ (LASIX) ONE (22:27)
[2019-10-29 22:29] LABS: BILIRUBIN,URINE NEGATIVE (NEGATIVE); CLARITY,URINE CLEAR; COLOR,URINE YELLOW; GLUCOSE, URINE (UA) NEGATIVE (NEGATIVE); KETONES,URINE NEGATIVE (NEGATIVE); LEUKOCYTE ESTERASE ,URINE NEGATIVE (NEGATIVE); NITRITE,URINE NEGATIVE (NEGATIVE); PROTEIN,URINE 2+ (NEGATIVE)
[2019-10-29] MEDS ORDERED: FUROSEMIDE 40 MG/4 ML INJ (LASIX) IVP ONE (22:30)
[2019-10-29 22:42] LABS: BACTERIA,URINE NEGATIVE /HPF; RBC,URINE 0-2 /HPF
[2019-10-29 22:43] LABS: GRANULAR CASTS,URINE RARE /LPF
[2019-10-29 22:58] LABS: AMPHETAMINE SCREEN, URINE NEGATIVE (NEGATIVE); BENZODIAZEPINES SCREEN URINE NEGATIVE (NEGATIVE); COCAINE SCREEN URINE NEGATIVE (NEGATIVE); METHAMPHETAMINE SCREEN URINE S NEGATIVE (NEGATIVE)
[2019-10-29 23:00] VITALS: BP 163/108
[2019-10-29 23:00] LABS: CANNABINOID SCREEN, URINE POSITIVE (NEGATIVE)
--- NOTE | 2019-10-29 23:00 | NUR ---
SOPHIE CORNELIUS admitted to room CU11-1, with an admitting diagnosis of RESPIRATORY DISTRESS, COPD EXACERBATION on 10/29/19 from ED via stretcher, accompanied by BRICE [facility].SOPHIE CORNELIUS introduced to surroundings, call light, bed controls, phone, TV, temperature control, lights, meal times, smoking policy, visitor policy, side rail policy, bathrooms and showers. Patient Rights given to patient in the handbook.SOPHIE CORNELIUS verbalizes understanding that [facility] is not responsible for the loss or damage to any personal effects or valuables that are kept in the patients posession during their hospitalization.
[2019-10-29 23:01] LABS: BARBITURATE SCREEN URINE NEGATIVE (NEGATIVE); METHADONE STAT NEGATIVE (NEGATIVE); OPIATE SCREEN URINE POSITIVE (NEGATIVE); OXYCODONE STAT NEGATIVE (NEGATIVE); PROPOXYPHENE STAT NEGATIVE (NEGATIVE); TRICYCLIC ANTIDEPRESSANTS SCRE NEGATIVE (NEGATIVE)
[2019-10-29] MEDS ORDERED: NS IV 1000 ML 1,000 ML ONE (23:13)
[2019-10-29 23:15] VITALS: BP 144/99
[2019-10-29 23:30] VITALS: BP 142/103
[2019-10-29] MEDS ORDERED: NS IV 1000 ML 1,000 ML IV SCH (23:30)
[2019-10-29] MEDS: fentaNYL INJECTION 100 MCG/2 ML AMP IVP PRN (23:33)
[2019-10-29 23:45] VITALS: BP 150/96
[2019-10-30] VITALS (10 sets, daily range): BP systolic 108–158; BP diastolic 87–109
[2019-10-30] MEDS ORDERED: PHARMACY TO DOSE IV SCH (00:45)
[2019-10-30] MEDS ORDERED: VANCOMYCIN 750 MG/NS 250 ML IVPB IV ONE ×2 (00:45)
[2019-10-30] MEDS: NS IV 1000 ML 1,000 ML IV SCH ×2 (01:17→05:49)
[2019-10-30] MEDS ORDERED: NS (IVPB) 250 ML ONE (01:59)
[2019-10-30] MEDS ORDERED: VANCOMYCIN 750 MG/VIAL IV ONE (01:59)
[2019-10-30 03:39] LABS: BASOPHILS % (AUTO) 0 % (0-10); EOSINOPHILS % (AUTO) 0 % (0-10); HEMATOCRIT 38 % (35-52); HEMOGLOBIN 10.7 G/DL (11.5-16.0); LYMPHOCYTES # (AUTO) 0.5 X 10^3 (1.0-4.0); LYMPHOCYTES % (AUTO) 2 % (12-44); MEAN CORPUSCULAR HEMOGLOBIN 26 PG (25-34); MEAN CORPUSCULAR HGB CONC 28 G/DL (32-36); MEAN CORPUSCULAR VOLUME 91 FL (80-99); MEAN PLATELET VOLUME 10.3 FL (7.4-10.4); MONOCYTES # (AUTO) 0.7 X 10^3 (0.0-1.0); MONOCYTES % (AUTO) 4 % (0-12); NEUTROPHILS # (AUTO) 17.5 X 10^3 (1.8-7.8); NEUTROPHILS % (AUTO) 94 % (42-75); PLATELET COUNT 267 10^3/uL (130-400); RED CELL DISTRIBUTION WIDTH 18.7 % (10.0-14.5); WHITE BLOOD COUNT 18.6 10^3/uL (4.3-11.0)
[2019-10-30] MEDS: fentaNYL INJECTION 100 MCG/2 ML AMP IVP PRN ×2 (03:41→05:49)
[2019-10-30] MEDS ORDERED: RT-ALBUTEROL/IPRATROPIUM 3 ML (DUONEB) VIAL INH PRN (03:45)
[2019-10-30 04:02] LABS: ALANINE AMINOTRANSFERASE < 6 U/L (0-55); ALKALINE PHOSPHATASE 77 U/L (40-136); BILIRUBIN,TOTAL 0.2 MG/DL (0.1-1.0); BUN/CREATININE RATIO 14; CALCIUM 9.9 MG/DL (8.5-10.1); CARBON DIOXIDE 27 MMOL/L (21-32); CHLORIDE 104 MMOL/L (98-107); CREATININE SERUM 1.11 MG/DL (0.60-1.30); GFR ESTIMATED 52; GLUCOSE 134 MG/DL (70-105); MAGNESIUM 1.7 MG/DL (1.6-2.4); PHOSPHORUS 3.4 MG/DL (2.3-4.7); POTASSIUM 3.8 MMOL/L (3.6-5.0); SODIUM 142 MMOL/L (135-145); TOTAL PROTEIN 7.2 GM/DL (6.4-8.2)
--- NOTE | 2019-10-30 04:09 | Pulmonary Consultation ---
History of Present Illness History of Present Illness Date Seen by Provider: Oct 30, 2019 Date of Admission 10/29/19 Reason for Visit: Respiratory Distress, COPD Exacerbation History of Present Illness This is a 49 yo female with PMH of PNA (end of August 2019), HTN, COPD, CKD, migraines, stroke, and anxiety, who presented to the ED yesterday in respiratory distress x 1 day. Patient felt like her pneumonia was back. Allergies and Home Medications Allergies Coded Allergies: ofloxacin (Verified Allergy, Mild, 02/04/19) Penicillins (Verified Allergy, Unknown, Pt has received Ceftriaxone & Cefepime in the past w/o issue, 02/04/19) amoxicillin (Verified Allergy, Unknown, 02/04/19) clavulanic acid (Verified Allergy, Unknown, 02/04/19) promethazine (Verified Allergy, Unknown, 02/04/19) propoxyphene (Verified Allergy, Unknown, 02/04/19) ketorolac (Verified Adverse Reaction, Unknown, 11/08/17) tramadol (Verified Adverse Reaction, Unknown, 11/08/17) Home Medications Albuterol Sulfate 1 Puff Puff, 2 PUFF IH Q4H PRN for SHORTNESS OF BREATH Prescribed by: ELVIS NERI on 09/19/19 110 Budesonide/Formoterol Fumarate 10.2 Gm Hfa.aer.ad, 2 PUFF IH BID Prescribed by: ELVIS NERI on 09/19/19 110 Cetirizine HCl 10 Mg Tablet, 10 MG PO DAILY, (Reported) Cyclobenzaprine HCl 10 Mg Tablet, 10 MG PO HS, (Reported) Cyclobenzaprine HCl 10 Mg Tablet, 5 MG PO DAILY PRN for MUSCLE SPASMS, (Reported) Dicyclomine HCl 10 Mg Capsule, 20 MG PO TID PRN for CRAMPS, (Reported) TAKES 2 (10MG) CAPSULES Fluticasone Propionate 16 Gm [place].susp, 2 SPRAYS NS DAILY Prescribed by: ELVIS NERI on 09/19/19 110 Gabapentin 800 Mg Tablet, 800 MG PO QID, (Reported) FILLED #56 08-24-19 Hydrocodone Bit/Acetaminophen 1 Each Tablet, 1 TAB PO Q6H PRN for PAIN-MODERATE (5-7) Prescribed by: ELVIS NERI on 09/19/19 1103 Ipratropium/Albuterol Sulfate 3 Ml Ampul.neb, 3 ML INH RTQ4HR Prescribed by: ELVIS NERI on 09/19/19 110 Lidocaine 1 Each Adh..patch, TOP DAILY, (Reported) LAST FILLED #30 12-3-19 Lipase/Protease/Amylase 1 Each Capsule.dr, 1 CAP PO TIDAC, (Reported) Multivit-Min/FA/Lycopene/Lut 1 Each Tablet, 1 TAB PO DAILY, (Reported) Prednisone 10 Mg Tab.ds.pk, 10 MG PO DAILY Take 6 tabs(60mg)daily,decrease by 1 tab(10MG)daily. Prescribed by: ELVIS NERI on 09/19/19 110 Sulfamethoxazole/Trimethoprim 1 Each Tablet, 1 EACH PO BID Prescribed by: ELVIS NERI on 09/19/19 1109 Past Jrrbzkb-Aslvkn-Tibzag Hx Patient Social History Alcohol Use: Past History Number of Drinks Today: 0 Alcohol Beverage of Choice: Beer Recreational Drug Use: Yes (ETOH- NOT FOR LAST SIX MONTHS) Drug of Choice: Smokes THC at times for pain Smoking Status: Current Everyday Smoker Type Used: Cigarettes 2nd Hand Smoke Exposure: No Recent Foreign Travel: No Contact w/Someone Who Travel: No Recent Infectious Disease Expo: No Recent Hopitalizations: No Immunizations Up To Date Tetanus Booster (TDap): Unknown PED Vaccines UTD: No Date of Pneumonia Vaccine: Jul 26, 2009 Date of Influenza Vaccine: Aug 26, 2019 Seasonal Allergies Seasonal Allergies: No Past Medical History Surgeries: Yes (left leg amputation) Abdominal, Orthopedic Respiratory: Yes (ASPIRATION AND ARDS, wears O2 at home at 2 LPM) Asthma, Pneumonia, Chronic Bronchitis, COPD, Emphysema Currently Using CPAP: No Currently Using BIPAP: No Cardiac: Yes Hypertension Neurological: Yes (CHRONIC PHANTOM LEG PAIN, TREMORS) Headaches /Migraines, Stroke 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 Disorders: Yes 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 Sexually Transmitted Disease: No HIV/AIDS: No Genitourinary: Yes (CHRONIC RENAL INSUFFICIENCY) UTI-Chronic Gastrointestinal: Yes (right colon resection) Chronic Constipation Musculoskeletal: Yes Amputee, Osteoporosis, Fractures Endocrine: Yes (history of chronic pancreatitis) HEENT: Yes (EDENTULOUS; BILATERAL CATARACT SURGERY) Cataract Loss of Vision: Denies Hearing Impairment: Denies Cancer: No Psychosocial: Yes Anxiety, Suicide Attempts, Depression Integumentary: No Blood Disorders: No Adverse Reaction/Blood Tranf: No Family Medical History Alzheimer's disease 19 FATHER 19 MOTHER Asthma 19 FATHER Completed stroke 19 FATHER Deafness or hearing loss 19 FATHER Dementia 19 FATHER Diabetes mellitus 19 FATHER 19 MOTHER Headache disorder 19 FATHER Hypertension 19 FATHER 19 MOTHER Myocardial infarction 19 FATHER 19 MOTHER Respiratory disorder 19 FATHER No Family History of: Kidney disease No Pertinent Family Hx Sepsis Event Evaluation Height, Weight, BMI Height: 5'1.00" Weight: 82lbs. 0.0oz. 37.109435ly; 12.48 BMI Method:Stated Exam Exam Vital Signs Date Time Temp Pulse Resp B/P (MAP) Pulse Ox O2 Delivery O2 Flow Rate FiO2 10/30/19 03:43 36.4 High Flow N/C 5.00 10/30/19 03:26 37.0 110 90 10/30/19 03:00 93 147/93 (111) 96 High Flow N/C 3.00 10/30/19 02:25 98 Nasal Cannula 3.00 10/30/19 02:15 High Flow N/C 3.00 10/30/19 02:00 91 15 131/87 (102) 99 High Flow N/C 5.00 10/30/19 01:00 96 13 108/87 (94) 97 High Flow N/C 5.00 10/30/19 01:00 100 10/30/19 00:30 112 14 137/94 (108) 96 High Flow N/C 5.00 10/30/19 00:18 High Flow N/C 5.00 10/30/19 00:00 101 18 139/109 (119) 92 NIV Bilevel 50.00 10/29/19 23:45 103 19 150/96 (114) 96 NIV Bilevel 50.00 10/29/19 23:30 101 20 142/103 (116) 96 NIV Bilevel 50.00 10/29/19 23:15 104 19 144/99 (114) 97 NIV Bilevel 50.00 10/29/19 23:06 109 10/29/19 23:06 107 10/29/19 23:00 NIV Bilevel 50 10/29/19 23:00 36.9 105 19 163/108 (126) 97 NIV Bilevel 50.00 10/29/19 22:35 37.2 108 25 155/103 (120) 100 NIV Bilevel 10/29/19 21:15 37.0 110 40 151/104 (120) 90 Nasal Cannula 3.00 I & O 10/30/19 06:59 Intake Total 507.5 ml Output Total 325 ml Balance 182.5 ml Height & Weight Height: 5'1.00" Weight: 82lbs. 0.0oz. 37.383118cc; 12.48 BMI Method:Stated Capillary Refill: Less Than 3 Seconds Gastrointestinal: normal bowel sounds, soft Results Lab Laboratory Tests 10/29/19 21:21 10/30/19 03:19 JACQUELINE GU MEDICAL STUDENT Oct 30, 2019 03:58
--- NOTE | 2019-10-30 05:20 | Pulmonary Consultation ---
History of Present Illness History of Present Illness Date Seen by Provider: Oct 30, 2019 Time Seen by Provider: 05:15 Date of Admission Reason for Visit: Respiratory Distress, COPD Exacerbation History of Present Illness 49yo with hx of severe COPD presented secondary to hypoxia with Spo02 84% on her baseline 2 liters. Pt was found to be in acute respiratory distress with acute wheezing. She was dx with pneumonia RLL and COPDAE admitted to ICU for close observation. Pt has had many prior episodes resulting in hospitalizations. Allergies and Home Medications Allergies Coded Allergies: ofloxacin (Verified Allergy, Mild, 02/04/19) Penicillins (Verified Allergy, Unknown, Pt has received Ceftriaxone & Ce fepime in the past w/o issue, 02/04/19) amoxicillin (Verified Allergy, Unknown, 02/04/19) clavulanic acid (Verified Allergy, Unknown, 02/04/19) promethazine (Verified Allergy, Unknown, 02/04/19) propoxyphene (Verified Allergy, Unknown, 02/04/19) ketorolac (Verified Adverse Reaction, Unknown, 11/08/17) tramadol (Verified Adverse Reaction, Unknown, 11/08/17) Home Medications Albuterol Sulfate 1 Puff Puff, 2 PUFF IH Q4H PRN for SHORTNESS OF BREATH Prescribed by: ELVIS NERI on 09/19/19 110 Budesonide/Formoterol Fumarate 10.2 Gm Hfa.aer.ad, 2 PUFF IH BID Prescribed by: ELVIS NERI on 09/19/19 110 Cetirizine HCl 10 Mg Tablet, 10 MG PO DAILY, (Reported) Cyclobenzaprine HCl 10 Mg Tablet, 10 MG PO HS, (Reported) Cyclobenzaprine HCl 10 Mg Tablet, 5 MG PO DAILY PRN for MUSCLE SPASMS, (R eported) Dicyclomine HCl 10 Mg Capsule, 20 MG PO TID PRN for CRAMPS, (Reported) TAKES 2 (10MG) CAPSULES Fluticasone Propionate 16 Gm [place].susp, 2 SPRAYS NS DAILY Prescribed by: ELVIS NERI on 09/19/19 110 Gabapentin 800 Mg Tablet, 800 MG PO QID, (Reported) FILLED #56 08-24-19 Hydrocodone Bit/Acetaminophen 1 Each Tablet, 1 TAB PO Q6H PRN for PAIN-MODERATE (5-7) Prescribed by: ELVIS NERI on 09/19/19 110 Ipratropium/Albuterol Sulfate 3 Ml Ampul.neb, 3 ML INH RTQ4HR Prescribed by: ELVIS NERI on 09/19/19 110 Lidocaine 1 Each Adh..patch, TOP DAILY, (Reported) LAST FILLED #30 123-19 Lipase/Protease/Amylase 1 Each Capsule.dr, 1 CAP PO TIDAC, (Reported) Multivit-Min/FA/Lycopene/Lut 1 Each Tablet, 1 TAB PO DAILY, (Reported) Prednisone 10 Mg Tab.ds.pk, 10 MG PO DAILY Take 6 tabs(60mg)daily,decrease by 1 tab(10MG)daily. Prescribed by: ELVIS NERI on 09/19/19 110 Sulfamethoxazole/Trimethoprim 1 Each Tablet, 1 EACH PO BID Prescribed by: ELVIS NERI on 09/19/19 1109 Past Kubebbt-Uedriy-Jbfjkt Hx Patient Social History Alcohol Use: Past History Number of Drinks Today: 0 Alcohol Beverage of Choice: Beer Recreational Drug Use: Yes (ETOH- NOT FOR LAST SIX MONTHS) Drug of Choice: Smokes THC at times for pain Smoking Status: Current Everyday Smoker Type Used: Cigarettes 2nd Hand Smoke Exposure: No Recent Foreign Travel: No Contact w/Someone Who Travel: No Recent Infectious Disease Expo: No Recent Hopitalizations: No Immunizations Up To Date Tetanus Booster (TDap): Unknown PED Vaccines UTD: No Date of Pneumonia Vaccine: Jul 26, 2009 Date of Influenza Vaccine: Aug 26, 2019 Seasonal Allergies Seasonal Allergies: No Past Medical History Surgeries: Yes (left leg amputation) Abdominal, Orthopedic Respiratory: Yes (ASPIRATION AND ARDS, wears O2 at home at 2 LPM) Asthma, Pneumonia, Chronic Bronchitis, COPD, Emphysema Currently Using CPAP: No Currently Using BIPAP: No Cardiac: Yes Hypertension Neurological: Yes (CHRONIC PHANTOM LEG PAIN, TREMORS) Headaches /Migraines, Stroke 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 Disorders: Yes 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 Sexually Transmitted Disease: No HIV/AIDS: No Genitourinary: Yes (CHRONIC RENAL INSUFFICIENCY) UTI-Chronic Gastrointestinal: Yes (right colon resection) Chronic Constipation Musculoskeletal: Yes Amputee, Osteoporosis, Fractures Endocrine: Yes (history of chronic pancreatitis) HEENT: Yes (EDENTULOUS; BILATERAL CATARACT SURGERY) Cataract Loss of Vision: Denies Hearing Impairment: Denies Cancer: No Psychosocial: Yes Anxiety, Suicide Attempts, Depression Integumentary: No Blood Disorders: No Adverse Reaction/Blood Tranf: No Family Medical History Alzheimer's disease 19 FATHER 19 MOTHER Asthma 19 FATHER Completed stroke 19 FATHER Deafness or hearing loss 19 FATHER Dementia 19 FATHER Diabetes mellitus 19 FATHER 19 MOTHER Headache disorder 19 FATHER Hypertension 19 FATHER 19 MOTHER Myocardial infarction 19 FATHER 19 MOTHER Respiratory disorder 19 FATHER No Family History of: Kidney disease No Pertinent Family Hx Sepsis Event Evaluation Height, Weight, BMI Height: 5'1.00" Weight: 82lbs. 0.0oz. 37.654495zv; 12.48 BMI Method:Stated Exam Exam Vital Signs Date Time Temp Pulse Resp B/P (MAP) Pulse Ox O2 Delivery O2 Flow Rate FiO2 10/30/19 04:20 High Flow N/C 3.00 10/30/19 04:00 79 131/100 (110) 97 High Flow N/C 5.00 10/30/19 04:00 97 High Flow N/C 5.00 10/30/19 03:43 36.4 High Flow N/C 5.00 10/30/19 03:26 37.0 110 90 10/30/19 03:00 93 147/93 (111) 96 High Flow N/C 3.00 10/30/19 02:25 98 Nasal Cannula 3.00 10/30/19 02:15 High Flow N/C 3.00 10/30/19 02:00 91 15 131/87 (102) 99 High Flow N/C 5.00 10/30/19 01:00 96 13 108/87 (94) 97 High Flow N/C 5.00 10/30/19 01:00 100 10/30/19 01:00 96 10/30/19 00:30 112 14 137/94 (108) 96 High Flow N/C 5.00 10/30/19 00:18 High Flow N/C 5.00 10/30/19 00:00 101 18 139/109 (119) 92 NIV Bilevel 50.00 10/29/19 23:45 103 19 150/96 (114) 96 NIV Bilevel 50.00 10/29/19 23:30 101 20 142/103 (116) 96 NIV Bilevel 50.00 10/29/19 23:15 104 19 144/99 (114) 97 NIV Bilevel 50.00 10/29/19 23:06 109 10/29/19 23:06 107 10/29/19 23:00 NIV Bilevel 50 10/29/19 23:00 36.9 105 19 163/108 (126) 97 NIV Bilevel 50.00 10/29/19 22:35 37.2 108 25 155/103 (120) 100 NIV Bilevel 10/29/19 21:15 37.0 110 40 151/104 (120) 90 Nasal Cannula 3.00 I & O 10/30/19 07:00 Intake Total 507.5 ml Output Total 325 ml Balance 182.5 ml Height & Weight Height: 5'1.00" Weight: 82lbs. 0.0oz. 37.899413hl; 12.48 BMI Method:Stated General Appearance: Anxious, Chronically ill, Mild Distress, Thin HEENT: PERRL/EOMI, Normal ENT Inspection, Pharynx Normal Neck: Full Range of Motion, Supple Respiratory: Chest Non Tender, Decreased Breath Sounds Capillary Refill: Less Than 3 Seconds Gastrointestinal: normal bowel sounds, soft Neurologic/Psychiatric: Alert, Oriented x3 Skin: Normal Color, Warm/Dry Lymphatic: No Adenopathy Results Lab Laboratory Tests 10/29/19 21:21 10/30/19 03:19 Assessment/Plan Assessment/Plan acute on chronic respiratory failure with severe oxygen dependent COPD and AE -Change solumedrol to 40 Q 6 -C02 is 58 on ABG -Pt would benefit from home vent to mask -Duoneb Q 4 add advair -Check CT of chest r/o mass Hx of ESBL -Change Cefepime to Merrem keep Vanco for now -Check alcaraz cultures and MRSA nasal swab CP -Check troponin and EKG -Cardiology is consulted Hx of colon perforation with last hospitalizations frequent hospitalization and medical noncompliance Anemia -Monitor [place] education -UDS is positive keep pt in ICU. ASHLEIGH ORTEGA DO Oct 30, 2019 05:20
[2019-10-30] MEDS ORDERED: MEROPENEM 500 MG in WATER (STERILE) FOR INJECTION 10 ML IV SCH ×2 (05:30→14:00)
[2019-10-30] MEDS ORDERED: WATER (STERILE) FOR INJECTION 10 ML ONE (05:46)
[2019-10-30] MEDS ORDERED: methylPREDNISolone 40 MG/ML (Solu-MEDROL) VIAL ONE (05:46)
[2019-10-30] MEDS ORDERED: MEROPENEM 500 MG VIAL (MERREM) IV ONE (05:46)
[2019-10-30] MEDS: MAGNESIUM 1 GM/100 ML IVPB 100 ML IV SCH ×3 (05:49→07:57)
[2019-10-30] MEDS ORDERED: MAGNESIUM 1 GM/100 ML IVPB 100 ML IV SCH (06:00)
[2019-10-30] MEDS ORDERED: KCL 20 MEQ TAB (K-DUR) PO SCH (06:00)
[2019-10-30] MEDS ORDERED: methylPREDNISolone 40 MG/ML (Solu-MEDROL) VIAL IV SCH ×2 (06:00)
[2019-10-30] MEDS ORDERED: RT-ALBUTEROL/IPRATROPIUM 3 ML (DUONEB) VIAL INH SCH (06:00)
[2019-10-30] MEDS ORDERED: POTASSIUM CL 10MEQ/50ML IVPB 50 ML IV SCH (06:00)
[2019-10-30] MEDS ORDERED: morphine INJ 4 MG/ML 1 ML (VIAL/SYRINGE) IVP PRN (06:15)
--- NOTE | 2019-10-30 06:37 | NUR ---
LOVENOX DOSING: ACT BW 30 KG, SCr 1.11, CrCl 28.4, BMI 12.5 LOVENOX 30 MG DAILY MEROPENEM DOSING: CrCl 28.4, DOSED 500 MG Q 8 HRS
[2019-10-30] MEDS ORDERED: ENOXAPARIN 30 MG/0.3 ML (LOVENOX) SYR SC SCH ×2 (07:00→09:00)
--- NOTE | 2019-10-30 07:58 | Diagnostic Imaging Report ---
INDICATION: Pneumonia, respiratory distress. TECHNIQUE: Single view chest 2:50 AM. CORRELATION STUDY: 10/29/2019 FINDINGS: Patient is rotated. Given this, heart size does appear to be enlarged and vascular congestion is present but overall appears less severe. Hyperinflated lung read. No definitive consolidating infiltrates. Question nodular density of the right mid lung, probable nipple shadow. IMPRESSION: 1. Hyperinflated lung read without definitive consolidating infiltrates. 2. Vascular congestion. Dictated by: Dictated on workstation # [id number]
[2019-10-30] MEDS ORDERED: RT-ADVAIR HFA 115/21 MCG PER PUFF IH SCH (08:00)
--- NOTE | 2019-10-30 08:14 | Diagnostic Imaging Report ---
EXAMINATION: CT Chest, Abdomen and Pelvis with intravenous contrast. TECHNIQUE: Multiple contiguous axial images were obtained through the chest, abdomen and pelvis after the uneventful administration of intravenous contrast. All CT scans use one or more of the following dose optimizing techniques: automated exposure control, MA and/or KvP adjustment based on a patient size and exam type, or iterative reconstruction. HISTORY: Mass COMPARISON: 09/16/2019 and 10/06/2018 FINDINGS: There is right middle lobe medial segment consolidation concerning for pneumonia. Lungs are moderately emphysematous. There are scattered tree-in-bud and centrilobular nodules in the right upper lobe and right middle lobe also likely representing an infectious process. Mild atelectasis is seen in the left upper lobe. No lung masses present. No pleural effusion. No pneumothorax. No suspicious nodules. Heart size is normal. There are mild coronary artery calcifications. No pericardial effusion. Aorta is normal in caliber. There is no axillary or supraclavicular lymphadenopathy. There is no mediastinal lymphadenopathy. Mediastinal lymph nodes appear unchanged from prior chest CT. The main pulmonary artery is mildly dilated concerning for pulmonary hypertension. The liver is normal without focal lesion. There is no biliary ductal dilation. Gallbladder is surgically absent. Pancreas is normal. Spleen is normal. Adrenal glands are normal. Areas of cortical scarring in the left kidney are unchanged. No suspicious renal lesions are seen. There is no hydronephrosis. Urinary bladder is decompressed by Grubbs catheter. Suture line is present in the bowel and there appears to have been ventral hernia repair in the right lower quadrant. Visualized bowel is normal in caliber without obstruction or inflammation. No free fluid or air. No abdominal or pelvic lymphadenopathy. Aorta is normal in caliber without aneurysm. There are no suspicious osseus lesions. IMPRESSION: 1. No mass in the chest, abdomen or pelvis. 2. Right middle lobe medial segment consolidation with patchy tree-in-bud nodules in the right upper lobe and right middle lobe consistent with an infectious process. 3. Dilated pulmonary artery suggestive of pulmonary hypertension. Dictated by: Dictated on workstation # [id number]
[2019-10-30] MEDS ORDERED: KCL 20 MEQ TAB (K-DUR) PO NR (09:00)
[2019-10-30] MEDS ORDERED: CEFEPIME INJECTION 2,000 MG in WATER (STERILE) FOR INJECTION 20 ML IV SCH (09:00)
[2019-10-30] MEDS ORDERED: NICOTINE 21 MG (NICODERM) PATCH TD SCH (09:00)
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
--- NOTE | 2019-10-30 11:32 | History & Physical ---
MILDRED GUSMAN MED STUDENT 10/30/19 1132: HPI History of Present Illness: CC: pneumonia 49yo F with PMH of COPD reports that she began having symptoms Saturday. Her shortness of breath, pain with breathing and feeling like her oxygen wasn't working as well. These continued to worsen to the point that she felt her 'breathing treatments' and oxygen weren't working on night and she called 911. She hasn't had any sputum production with her cough. Interval Update: - This morning pt says she feels better and she really would like to get out the hospital so she can go to a concert tonight. She reports still having a dry cough and pain with inspiration. Denies fever/chills. Source: patient Exam Limitations: no limitations Date seen by provider: Oct 30, 2019 Time Seen by Provider: 10:00 Attending Physician Ashleigh Palacios DO [facility] Center/k,[facility] Consult Date of Admission Oct 29, 2019 at 22:09 Home Medications Home Medications Reviewed patient Home Medication Reconciliation performed by pharmacy medication reconciliations science technician and/or nursing. Patients Allergies have been reviewed. Allergies Coded Allergies: ofloxacin (Verified Allergy, Mild, 02/04/19) Penicillins (Verified Allergy, Unknown, Pt has received Ceftriaxone & Cefepime in the past w/o issue, 02/04/19) amoxicillin (Verified Allergy, Unknown, 02/04/19) clavulanic acid (Verified Allergy, Unknown, 02/04/19) promethazine (Verified Allergy, Unknown, 02/04/19) propoxyphene (Verified Allergy, Unknown, 02/04/19) ketorolac (Verified Adverse Reaction, Unknown, 11/08/17) tramadol (Verified Adverse Reaction, Unknown, 11/08/17) [id number] Hx Patient Social History Marrital Status: , cohabiting (Lives with ex-; reports that they generally get along well and she feel safe in the home) Employed/Student: unemployed (Reports being on disability for mental reasons - head injury as child) Alcohol Use: Past History Recreational Drug Use: Yes (ETOH- NOT FOR LAST SIX MONTHS) Drug of Choice: Smokes THC at times for pain Smoking Status: Current Everyday Smoker Cigaretts per day: 30 Type Used: Cigarettes 2nd Hand Smoke Exposure: No Recent Foreign Travel: No Contact w/other who traveled: No Recent Hopitalizations: No Recent Infectious Disease Expo: No Immunizations Up To Date Tetanus Booster (TDap): Unknown Date of Pneumonia Vaccine: Jul 26, 2009 Date of Influenza Vaccine: Aug 26, 2019 Past Medical History Past Medical History 1. Chronic Alcoholism 2. Chronic Narcotic abuse with multiple admissions for overdoses 3. Tobaccoism 4. Multiple hospital admissions for overdoses of alcohol and narcotics 5. 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 History of chronic pancreatitis 7. Anxiety and Depression with history of admission for suicide attempt 8. Chronic Obstructive Pulmonary Disease 9. THC use 10. History of aspiration pneumonia secondary to overdose and ARDS 11. 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 12. Migraines 13. Osteoporosis 14. History of gastric ulcer 15. Osteoarthritis 16. Anxiety /Bipolar Disorder 17. Bilateral Carpal Tunnel 18. History of involuntary committal to inpatient psychiatric facility Past Surgical History 1. Cholecystectomy 1991 2. JAMEY BSO- for gangenous uterus 3. Lt. TKA 4. Lt. Leg fracture around prosthesis resulting in poor healing fracture with Lt. AKA. 5. Hiatal Hernia Repair 6. Abdominal Hernia repair with mesh 7. Teeth extraction 8. Revision of Lt. AKA stump Dr. Mario Alberto Hodge 12-15-14 Family Medical History Significant Family History: No Pertinent Family Hx Family History: Alzheimer's disease 19 FATHER 19 MOTHER Asthma 19 FATHER Completed stroke 19 FATHER Deafness or hearing loss 19 FATHER Dementia 19 FATHER Diabetes mellitus 19 FATHER 19 MOTHER Headache disorder 19 FATHER Hypertension 19 FATHER 19 MOTHER Myocardial infarction 19 FATHER 19 MOTHER Respiratory disorder 19 FATHER No Family History of: Kidney disease Review of Systems ([facility]) Constitutional: No chills, No fever EENTM: No throat pain Respiratory: cough; No hemoptysis, No phlegm; short of breath Cardiovascular: No chest pain, No palpitations Gastrointestinal: No abdominal pain, No constipation, No diarrhea Genitourinary: No dysuria Musculoskeletal: No no symptoms reported Skin: No no symptoms reported Psychiatric/Neurological: Other ("I'm crazy") Physical Exam-([facility]) Physical Exam Vital Signs VS - Last 72 Hours, by Label 10/29/19 10/29/19 10/29/19 10/29/19 21:15 22:35 23:00 23:00 Temp 37.0 37.2 36.9 Pulse 110 108 105 Resp 40 25 19 B/P (MAP) 151/104 (120) 155/103 (120) 163/108 (126) Pulse Ox 90 100 97 O2 Delivery Nasal Cannula NIV Bilevel NIV Bilevel NIV Bilevel O2 Flow Rate 3.00 50.00 FiO2 50 10/29/19 10/29/19 10/29/19 10/29/19 23:06 23:06 23:15 23:30 Pulse 107 109 104 101 Resp 19 20 B/P (MAP) 144/99 (114) 142/103 (116) Pulse Ox 97 96 O2 Delivery NIV Bilevel NIV Bilevel O2 Flow Rate 50.00 50.00 10/29/19 10/30/19 10/30/19 10/30/19 23:45 00:00 00:18 00:30 Pulse 103 101 112 Resp 19 18 14 B/P (MAP) 150/96 (114) 139/109 (119) 137/94 (108) Pulse Ox 96 92 96 O2 Delivery NIV Bilevel NIV Bilevel High Flow N/C High Flow N/C O2 Flow Rate 50.00 50.00 5.00 5.00 10/30/19 10/30/19 10/30/19 10/30/19 01:00 01:00 01:00 02:00 Pulse 96 100 96 91 Resp 13 15 B/P (MAP) 108/87 (94) 131/87 (102) Pulse Ox 97 99 O2 Delivery High Flow N/C High Flow N/C O2 Flow Rate 5.00 5.00 10/30/19 10/30/19 10/30/19 10/30/19 02:15 02:25 03:00 03:26 Temp 37.0 Pulse 93 110 B/P (MAP) 147/93 (111) Pulse Ox 98 96 90 O2 Delivery High Flow N/C Nasal Cannula High Flow N/C O2 Flow Rate 3.00 3.00 3.00 10/30/19 10/30/19 10/30/19 10/30/19 03:43 04:00 04:00 04:20 Temp 36.4 Pulse 79 B/P (MAP) 131/100 (110) Pulse Ox 97 97 O2 Delivery High Flow N/C High Flow N/C High Flow N/C High Flow N/C O2 Flow Rate 5.00 5.00 5.00 3.00 10/30/19 10/30/19 10/30/19 10/30/19 05:00 06:00 06:45 08:00 Temp 36.6 Pulse 85 85 81 B/P (MAP) 145/94 (111) 158/102 (120) Pulse Ox 94 94 O2 Delivery High Flow N/C High Flow N/C O2 Flow Rate 3.00 3.00 10/30/19 10/30/19 10/30/19 08:00 08:00 08:15 B/P (MAP) 143/101 (115) Pulse Ox 88 97 O2 Delivery Nasal Cannula High Flow N/C High Flow N/C O2 Flow Rate 2.00 4.00 3.00 Capillary Refill : Less Than 3 Seconds General Appearance: no apparent distress, thin HEENT: other (Extaocular movements grossly intact) Neck: normal inspection Respiratory: other (Diffuse wheezing bilaterally; NC with 2L) Cardiovascular: normal peripheral pulses, regular rate, rhythm Gastrointestinal: normal bowel sounds, non tender Rectal: deferred Extremities: other (L AKA with sock over stump) Neurologic/Psychiatric: alert, oriented x 3, other (Anxious/adament about getting to concert tonight) Skin: normal color Assessment/Plan Assessment/Plan Admission Dx #Pneumonia #Acute COPD Exacerbation - CXR showed developing interstitial edema and possible mild pleural effusions - Pt receiving vancomycin, meropenem and methylprednisolone - Breathing treatments - On 2L O2 via NC; pt reports baseline is 2.5-3L at home Clinical Quality Measures DVT/VTE Risk/Contraindication: Risk Factor Score Per Nursin RFS Level Per Nursing on Admit: 4+=Very High IRIS CONDE MD 10/30/19 1310: Home Medications Allergies Coded Allergies: ofloxacin (Verified Allergy, Mild, 02/04/19) Penicillins (Verified Allergy, Unknown, Pt has received Ceftriaxone & Cefepime in the past w/o issue, 02/04/19) amoxicillin (Verified Allergy, Unknown, 02/04/19) clavulanic acid (Verified Allergy, Unknown, 02/04/19) promethazine (Verified Allergy, Unknown, 02/04/19) propoxyphene (Verified Allergy, Unknown, 02/04/19) ketorolac (Verified Adverse Reaction, Unknown, 11/08/17) tramadol (Verified Adverse Reaction, Unknown, 11/08/17) [id number] Hx Family Medical History Family History: Alzheimer's disease 19 FATHER 19 MOTHER Asthma 19 FATHER Completed stroke 19 FATHER Deafness or hearing loss 19 FATHER Dementia 19 FATHER Diabetes mellitus 19 FATHER 19 MOTHER Headache disorder 19 FATHER Hypertension 19 FATHER 19 MOTHER Myocardial infarction 19 FATHER 19 MOTHER Respiratory disorder 19 FATHER No Family History of: Kidney disease Assessment/Plan Assessment/Plan Admission Status: Inpatient Order (span 2 midnights) Reason for Inpatient Admission: Severe COPD exacerbation and pneumonia with recent hospitalizations Supervisory-Addendum Brief Verification & Attestation Participated in pt care: history, MDM, physical Personally performed: exam, history, MDM Care discussed with: Medical Student Procedures: n/a Verification and Attestation of Medical Student E/M Service A medical student performed and documented this service in my presence. I reviewed and verified all information documented by the medical student and made modifications to such information, when appropriate. I personally performed the physical exam and medical decision making. Iris Conde, Oct 30, 2019,13:09 MILDRED GUSMAN MED STUDENT Oct 30, 2019 11:32 IRIS CONDE MD Oct 30, 2019 13:10
[2019-10-31] MEDS ORDERED: VANCOMYCIN 500 MG/NS 100 ML IVPB IV SCH ×2 (00:45)
[2019-10-31] MEDS ORDERED: NICOTINE PATCH REMOVAL TP SCH (08:59)
--- NOTE | 2019-11-05 15:33 | Physician Query-Final Dx ---
INA SOTELO 11/05/19 1533: Final Diagnosis Give Final Diagnosis Please give Final Diagnosis LASHAY CONDE MD 11/05/197: Final Diagnosis Give Final Diagnosis Left AMA Pneumonia COPD exacerbation Acute on chronic respiratory failure INA SOTELO Nov 05, 2019 15:33 LASHAY CONDE MD Nov 05, 2019 21:17
--- OUTSIDE RECORDS SUMMARY | 2019-11-10 12:07 | XMS REPORT | Clinical Summary ---
Author Author [facility] Organization [facility] Address Unknown Phone Unavailable Care Team Providers Care Non Destructive Testing Technician Name Role Phone Mi Joseph RN Unavailable [...] you expected, contact Release of Information in [facility] Information Management department at [phone] for further assistan ce in locating additional records.[facility] Allergies Comments Active Allergy Reactions [...] Used Tobacco Cessation: Ready to Quit: No; Co unseling Given: Yes Drinks/Week oz/Week Comments Alcohol Use [...] Health Maintenance Due Date Last Done Comments DTAP/TDAP VACCINES (1 - 1979 Tdap) HIV SCREENING 1983 PHYSICAL (COMPREHENSIVE) 1986 EXAM CERVICAL CANCER SCREENING 1989 BREAST CANCER SCREENING 2008 COLORECTAL CANCER 2018 SCREENING SHINGLES RECOMBINANT 2018 VACCINE (1 of 2) INFLUENZA VACCINE 03/26/2019 Results Not on filefrom Last 3 Months Advance Directives 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 necessary based on Dx
--- OUTSIDE RECORDS SUMMARY | 2019-11-10 12:09 | XMS REPORT ---
Author Author Cara DSOUZA Organization [facility] Address [address] [place] [address] Care Team Providers Care Learning Support Services Director Name Role Phone OLMAN DSOUZA Unavailable PROBLEMS Type Condition ICD9-CM Code [id number] Code Onset Dates Condition S tatus SNOMED Code Problem Chronic pancreatitis, unspecified pancreatitis type K86.1 Active 415850268 Problem Chronic obstructive pulmonary disease, unspecified COPD ty pe J44.9 Active 44698410 Problem Phantom limb pain G54.7 Active 19 [id number] ALLERGIES No Information ENCOUNTERS Encounter Location Date Diagnosis [place] [address] [address] [facility] [id number] [address] [place] [id number] Feb, [facility] [address] [facility] [id number] [address] [place] [phone] Jan, Chronic pancreatitis, unspec ified pancreatitis type K86.1 [place] [address] [address] [facility] [id number] [address] [place] [id number] Jan, Chronic pancreatitis, unspec ified pancreatitis type K86.1 ; Chronic obstructive pulmonary disease, unspecified COPD type J44.9 and Phantom limb pain G54.7 [facility] [address] [facility] [id number] [address] [place] [phone] December, [facility] [address] [facility] [id number] [address] [place] [id number] Nov, Chronic pancreatitis, unspec ified pancreatitis type K86.1 [facility] [address] [facility] [id number] [address] [place] [phone] Aug, [facility] [address] [facility] [id number] [address] [place] [phone] Mar, [facility] [address] [place] [id number] [address] [place] [phone] Feb, Chronic obstructive pulmonar y disease, unspecified COPD type J44.9 [facility] [address] [facility] [id number] [address] [place] [address] Jan, [facility] [address] [facility] [id number] [address] [place] [phone] Jan, [facility] [address] [facility] [id number] [address] [place] [address] December, [facility] [address] [facility] [id number] [address] [place] [phone] Nov, [facility] [address] [facility] [id number] [address] [place] [address] Nov, Chronic pancreatitis, unspec ified pancreatitis type K86.1 ; Chronic obstructive pulmonary disease, unspecified COPD type J44.9 ; Phantom limb pain G54.7 and Allergic state, initial encounter T78.40XA [facility] [address] [facility] [id number] [address] [place] [phone] Sep, [facility] [address] [facility] [id number] [address] [place] [phone] Jul, [facility] [address] [facility] [id number] [address] [place] [phone] Jul, [place] [address] [address] [facility] [id number] [address] [place] [phone] Jul, [facility] [address] [facility] [id number] [address] [place] [phone] Oct, Nausea R11.0 [facility] [address] [facility] [id number] [address] [place] [phone] Oct, Phantom limb pain G54.7 ; Ch ronic airway obstruction, not elsewhere classified 496 ; Altered mental status 780.97 ; Encounter for long-term (current) use of high-risk medication V58.69 ; Anxiety 300.00 and Allergic rhinitis 477.9 [facility] [address] [facility] [id number] [address] [place] [phone] Aug, [facility] [address] [place] [id number] [address] [place] [phone] Jun, [facility] [address] [facility] [id number] [address] [place] [id number] Jun, [facility] [address] [place] [id number] [place] [address] Apr, Chronic pain following surge ry or procedure 338.28 ; COPD (chronic obstructive pulmonary disease) with acute bronchitis 491.22 ; Allergic rhinitis 477.9 ; History of drug abuse 305.93 ; Encounter for long-term (current) use of high-risk medication V58.69 ; Dyspepsia 536.8 ; Anxiety 300.00 and Noncompliance V15.81 [facility] [address] [place] [id number] [address] [place] [phone] Mar, [facility] [address] [place] [id number] [address] [place] [phone] Feb, [facility] [address] [place] [id number] [address] [place] [phone] Feb, Chronic airway obstruction, not elsewhere classified 496 [facility] [address] [place] [id number] [address] [place] [phone] Feb, [facility] [address] [place] [id number] [address] [place] [phone] Jan, [facility] [address] [place] [id number] [address] [place] [phone] 12 Jan, 2015 [facility] [address] [place] [id number] [address] [place] [phone] 14 Nov, 2014 [facility] [address] [place] [id number] [address] [place] [phone] 13 Nov, 2014 [facility] [address] [place] [id number] [address] [place] [phone] Oct, [facility] [address] [id number] [address] [place] [address], [place] [address] Oct, [facility] [address] [id number] [address] [place] [address], [place] [address] Oct, [facility] [address] [id number] [address] [place] [address], [place] [address] Oct, [facility] [address] [id number] [address] [place] [address], [place] [address] Oct, [facility] [address] [id number] [address] [place] [address], [place] [address] Oct, [facility] [address] [id number] [address] [place] [address], [place] [address] Sep, [facility] [address] [id number] [address] [place] [address], [place] [address] Sep, [facility] [address] [id number] [address] [place] [address], [place] [address] Sep, [facility] [address] [id number] [address] [place] [address], [place] [address] Sep, [facility] [address] [id number] [address] [place] [address], [place] [address] Sep, [facility] [address] [id number] [address] [place] [address], [place] [address] Sep, [facility] [address] [id number] [address] [place] [address], [place] [address] Aug, [facility] [address] [id number] [address] [place] [address], [place] [id number] Aug, [facility] [address] [id number] [address] [place] [address], [place] [address] Aug, [facility] [address] [id number] [address] [place] [address], [place] [address] Aug, [facility] [address] [id number] [address] [place] [address], [place] [address] Aug, [facility] [address] [id number] [address] [place] [address], [place] [phone] Aug, [facility] [address] [id number] [address] [place] [address], [place] [address] Aug, [facility] [address] [id number] [address] [place] [address], [place] [address] Aug, [facility] [address] [id number] [address] [place] [address], [place] [address] Aug, [facility] [address] [id number] [address] [place] [address], [place] [address] Aug, [facility] [address] [id number] [address] [place] [address], [place] [address] Jul, [facility] [address] [id number] [address] [place] [address], [place] [address] Jul, [facility] [address] [id number] [address] [place] [address], [place] [address] Jul, [facility] [address] [id number] [address] [place] [address], [place] [phone] Jul, [facility] [address] [id number] [address] [place] [address], [place] [address] Jul, [facility] [address] [id number] [address] [place] [address], [place] [address] Jul, [facility] [address] [id number] [address] [place] [address], [place] [address] Jul, [facility] [address] [id number] [address] [place] [address], [place] [address] Jul, [facility] [address] [id number] [address] [place] [address], [place] [address] Jul, [facility] [address] [id number] [address] [place] [address], [place] [address] Jun, [facility] [address] [id number] [address] [place] [address], [place] [address] Jun, [facility] [address] [id number] [address] [place] [address], [place] [address] Jun, [facility] [address] [id number] [address] [place] [address], [place] [address] Jun, [facility] [address] [id number] [address] [place] [address], [place] [address] Jun, [facility] [address] [id number] [address] [place] [address], [place] [address] Jun, [facility] [address] [id number] [address] [place] [address], [place] [address] May, [facility] [address] [id number] [address] [place] [address], [place] [id number] 30 May, 2014 [facility] [address] [id number] [address] [place] [address], [place] [address] May, [facility] [address] [id number] [address] [place] [address], [place] [id number] 14 May, 2014 [facility] [address] [id number] [address] [place] [phone] May, [facility] [address] [id number] [address] [place] [phone] 10 May, 2014 [facility] [address] [id number] [address] [place] [id number] 10 May, 2014 [facility] [address] [id number] [address] [place] [address], [place] [address] Apr, [facility] [address] [id number] [address] [place] [address], [place] [address] Apr, [facility] [address] [id number] [address] [place] [phone] 04 Apr, 2014 [facility] [address] [id number] [address] [place] [phone] Apr, [facility] [address] [id number] [address] [place] [address], [place] [address] Feb, [facility] [address] [id number] [address] [place] [address], [place] [address] Feb, [facility] [address] [id number] [address] [place] [address], [place] [address] Feb, [facility] [address] [id number] [address] [place] [address], [place] [address] Feb, [facility] [address] [id number] [address] [place] [address], [place] [address] Feb, [facility] [address] [id number] [address] [place] [address], [place] [address] Feb, [facility] [address] [id number] [address] [place] [address], [place] [address] Feb, [facility] [address] [id number] [address] [place] [address], [place] [address] Feb, [facility] [address] [id number] [address] [place] [address], [place] [address] Feb, [facility] [address] [id number] [address] [place] [address], [place] [address] Feb, [facility] [address] [id number] [address] [place] [address], [place] [address] Feb, [facility] [address] [id number] [address] [place] [address], [place] [address] Feb, [facility] [address] [id number] [address] [place] [address], [place] [address] Feb, [facility] [address] [id number] [address] [place] [address], [place] [address] Feb, [facility] [address] [id number] [address] [place] [address], [place] [address] Feb, [facility] [address] [id number] [facility] [place] [address] 07 Feb, 2014 [facility] [address] [id number] [facility] [place] [address] Jan, [facility] [address] [id number] [address] [place] [address], [place] [address] Jan, [facility] [address] [id number] [address] [place] [address], [place] [address] Jan, [facility] [address] [id number] [address] [place] [address], [place] [address] Jan, [facility] [address] [id number] [address] [place] [address], [place] [address] Jan, [facility] [address] [id number] [address] [place] [address], [place] [address] Jan, [facility] [address] [id number] [address] [place] [address], [place] [address] Jan, [facility] [address] [id number] [address] [place] [address], [place] [address] Jan, [facility] [address] [id number] [address] [place] [address], [place] [address] Jan, [facility] [address] [id number] [address] [place] [address], [place] [address] Jan, [facility] [address] [id number] [address] [place] [address], [place] [address] Jan, [facility] [address] [id number] [address] [place] [address], [place] [address] Jan, [facility] [address] [id number] [address] [place] [address], [place] [address] Jan, [facility] [address] [id number] [address] [place] [address], [place] [id number] 13 Jan, 2014 [facility] [address] [id number] [address] [place] [address], [place] [address] Jan, [facility] [address] [id number] [facility] [place] [address] Jan, [facility] [address] [id number] [facility] [place] [address] Jan, [facility] [address] [id number] [address] [place] [address], [place] [address] Jan, [facility] [address] [id number] [address] [place] [address], [place] [address] Jan, [facility] [address] [id number] [address] [place] [address], [place] [address] Jan, [facility] [address] [id number] [address] [place] [address], [place] [address] Jan, [facility] [address] [id number] [address] [place] [address], [place] [address] Jan, [facility] [address] [id number] [address] [place] [address], [place] [address] Jan, [facility] [address] [id number] [address] [place] [address], [place] [address] Jan, [facility] [address] [id number] [address] [place] [address], [place] [address] Jan, [facility] [address] [id number] [address] [place] [address], [place] [address] Jan, [facility] [address] [id number] [address] [place] [address], [place] [address] Jan, [facility] [address] [id number] [address] [place] [address], [place] [address] Jan, [facility] [address] [id number] [address] [place] [address], [place] [address] Jan, [facility] [address] [id number] [address] [place] [address], [place] [address] Jan, [facility] [address] [id number] [address] [place] [phone] Jan, [facility] [address] [facility] [id number] [address] [place] [id number] Jan, [facility] [address] [facility] [id number] [address] [place] [id number] Jun, [facility] [address] [facility] [id number] [address] [place] [id number] Jan, IMMUNIZATIONS No Known Immunizations SOCIAL HISTORY Never Assessed REASON FOR VISIT PLAN OF CARE VITAL SIGNS MEDICATIONS Unknown Medications RESULTS No Results PROCEDURES No Known procedures INSTRUCTIONS MEDICATIONS ADMINISTERED No Known Medications MEDICAL (GENERAL) HISTORY Type Description Date Medical History 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 Medical History Respiratory disorder orthopnea Medical History asthma- tobacco use x30 years equal tp 5 0-60 packs a year Medical History COPD Medical History Gastric ulcer Medical History osteoporosis Medical History arthritis Medical History rheumatoid arthritis Medical History orthopedic disorder - left A KA from injury and sever osteoporosis Medical History backache Medical History headache syndromes Medical History chronic pain Medical History significant hx of drug abuse with multiple positive drug screens at hospital and in clinic Medical History ADHD Medical History depresssion Medical History anxiety Medical History bipolar Medical History bilateral carpal tunnel Medical History fired from [facility] [employer] for 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 Shah Medical History positive drug screen for meth [facility] 01/2014 Medical History 02/11/2014 Ameritox positive for multiple substances not prescribed Surgical History cholecystectomy Surgical History gastric surgery mesh in lower portion of stomach Surgical History kidney surgery D&C Surgical History pmyewvhalxvh-lrvea-qcrlimzj uterus Surgical History orthopedic surgery leg amput ation by Dr. Hodge at [facility] r/t osteoporosis 2006 Hospitalization History Surgery(s)/Childbirth(s) only Hospitalization History Pancreatitis, gastritis, abd pain-[facility] 08/10/16
--- OUTSIDE RECORDS SUMMARY | 2019-11-10 12:14 | XMS REPORT | Continuity of Care Document ---
Author Organization Unknown Address Unknown Phone Unavailable Allergies Active Description Code Type Severity Reaction Onset Reported/Identified Relationship to Patient Clinical Status Yes Augmentin ES-600 Drug Allergy N/A N/A 02/04/2009 Yes Darvocet-N 100 Drug Allergy N/A N/A 02/04/2009 Yes Floxin Drug Allergy N/A N/A 02/04/2009 Yes Penicillins Drug Allergy N/A N/A 02/04/2009 Yes Phenergan Drug Allergy N/A N/A 02/04/2009 Yes Toradol Drug Allergy N/A N/A 02/04/2009 Yes Penicillins [id number] Drug Aller gy Unknown N/A 08/10/2016 Yes ketorolac [id number] Drug Allergy Unknown N/A 11/08/2017 Yes tramadol [id number] Drug Allergy Unknown N/A 11/08/2017 Yes ofloxacin [id number] Drug Allergy Mild N/A 02/04/2019 Yes amoxicillin [id number] Drug Aller gy Unknown N/A 02/04/2019 Yes clavulanic acid [id number] D rug Allergy Unknown N/A 02/04/2019 Yes Penicillins [id number] Drug Aller gy Unknown Pt has received 02/04/2019 Yes promethazine [id number] Drug Allergy Unknown N/A 02/04/2019 Yes propoxyphene [id number] Drug Allergy Unknown N/A 02/04/2019 Medications There is no data. Problems Date Dx Coded Attending Type Code Diagnosis Diagnosed By 02/04/2009 LIANNA MANAGER SOCIAL SERVICES, OLMAN L 892 .0 OPEN WOUND OF FOOT EXCEPT TOE(S) ALONE WITHOUT COMPLICATION 02/04/2009 MADL MANAGER SOCIAL SERVICES, OLMAN L 892 .0 OPEN WOUND OF FOOT EXCEPT TOE(S) ALONE WITHOUT COMPLICATION 02/04/2009 MADL MANAGER SOCIAL SERVICES, OLMAN L 892 .0 OPEN WOUND OF FOOT EXCEPT TOE(S) ALONE WITHOUT COMPLICATION 02/04/2009 MADL MANAGER SOCIAL SERVICES, OLMAN L 892 .0 OPEN WOUND OF FOOT EXCEPT TOE(S) ALONE WITHOUT COMPLICATION 02/04/2009 MATHEW DO, RAGHAV K 892.0 OPEN WOUND OF FOOT EXCEPT TOE(S) ALONE WITHOUT COMPLICATION 02/04/2009 MATHEW DO, RAGHAV K 892.0 OPEN WOUND OF FOOT EXCEPT TOE(S) ALONE WITHOUT COMPLICATION 02/04/2009 MADL MANAGER SOCIAL SERVICES, OLMAN L 892 .0 OPEN WOUND OF FOOT EXCEPT TOE(S) ALONE WITHOUT COMPLICATION 02/04/2009 EUGENIA MONACO, JESSICA B 89 2.0 OPEN WOUND OF FOOT EXCEPT TOE(S) ALONE WITHOUT COMPLICATION 02/04/2009 MADL MANAGER SOCIAL SERVICES, OLMAN L 892 .0 OPEN WOUND OF FOOT EXCEPT TOE(S) ALONE WITHOUT COMPLICATION 02/04/2009 MATHEW DO, RAGHAV K 892.0 OPEN WOUND OF FOOT EXCEPT TOE(S) ALONE WITHOUT COMPLICATION 02/04/2009 MADL MANAGER SOCIAL SERVICES, OLMAN L 892 .0 OPEN WOUND OF FOOT EXCEPT TOE(S) ALONE WITHOUT COMPLICATION 02/04/2009 MATHEW DO, RAGHAV K 892.0 OPEN WOUND OF FOOT EXCEPT TOE(S) ALONE WITHOUT COMPLICATION 04/16/2009 MADL MANAGER SOCIAL SERVICES, OLMAN L 356 .9 UNSPECIFIED IDIOPATHIC PERIPHERAL NEUROPATHY 04/16/2009 MADL MANAGER SOCIAL SERVICES, OLMAN L 356 .9 UNSPECIFIED IDIOPATHIC PERIPHERAL NEUROPATHY 04/16/2009 MADL MANAGER SOCIAL SERVICES, OLMAN L 356 .9 UNSPECIFIED IDIOPATHIC PERIPHERAL NEUROPATHY 04/16/2009 MADL MANAGER SOCIAL SERVICES, OLMAN L 356 .9 UNSPECIFIED IDIOPATHIC PERIPHERAL NEUROPATHY 04/16/2009 MATHEW DO, RAGHAV K 356.9 UNSPECIFIED IDIOPATHIC PERIPHERAL NEUROPATHY 04/16/2009 MATHEW DO, RAGHAV K 356.9 UNSPECIFIED IDIOPATHIC PERIPHERAL NEUROPATHY 04/16/2009 MADL MANAGER SOCIAL SERVICES, OLMAN L 356 .9 UNSPECIFIED IDIOPATHIC PERIPHERAL NEUROPATHY 04/16/2009 EUGENIA MONACO, JESSICA B 35 6.9 UNSPECIFIED IDIOPATHIC PERIPHERAL NEUROPATHY 04/16/2009 MADL MANAGER SOCIAL SERVICES, OLMAN L 356 .9 UNSPECIFIED IDIOPATHIC PERIPHERAL NEUROPATHY 04/16/2009 MATHEW DO, RAGHAV K 356.9 UNSPECIFIED IDIOPATHIC PERIPHERAL NEUROPATHY 04/16/2009 MADL MANAGER SOCIAL SERVICES, OLMAN L 356 .9 UNSPECIFIED IDIOPATHIC PERIPHERAL NEUROPATHY 04/16/2009 MATHEW DO, RAGHAV K 356.9 UNSPECIFIED IDIOPATHIC PERIPHERAL NEUROPATHY 04/27/2009 MADL MANAGER SOCIAL SERVICES, OLMAN L 338 .2 CHRONIC PAIN 04/27/2009 MADL MANAGER SOCIAL SERVICES, OLMAN L 477 .9 ALLERGIC RHINITIS 04/27/2009 MADL MANAGER SOCIAL SERVICES, OLMAN L 338 .2 CHRONIC PAIN 04/27/2009 MADL MANAGER SOCIAL SERVICES, OLMAN L 477 .9 ALLERGIC RHINITIS 04/27/2009 MADL MANAGER SOCIAL SERVICES, OLMAN L 338 .2 CHRONIC PAIN 04/27/2009 MADL MANAGER SOCIAL SERVICES, OLMAN L 477 .9 ALLERGIC RHINITIS 04/27/2009 MADL MANAGER SOCIAL SERVICES, OLMAN L 338 .2 CHRONIC PAIN 04/27/2009 MADL MANAGER SOCIAL SERVICES, OLMAN L 477 .9 ALLERGIC RHINITIS 04/27/2009 MATHEW DO, RAGHAV K 338.2 CHRONIC PAIN 04/27/2009 MATHEW DO, RAGHAV K 477.9 ALLERGIC RHINITIS 04/27/2009 MATHEW DO, RAGHAV K 338.2 CHRONIC PAIN 04/27/2009 MATHEW DO, RAGHAV K 477.9 ALLERGIC RHINITIS 04/27/2009 MADL MANAGER SOCIAL SERVICES, OLMAN L 338 .2 CHRONIC PAIN 04/27/2009 MADL MANAGER SOCIAL SERVICES, OLMAN L 477 .9 ALLERGIC RHINITIS 04/27/2009 EUGENIA DIE DESIGNER APPRENTICE, JESSICA B 33 8.2 CHRONIC PAIN 04/27/2009 EUGENIA DIE DESIGNER APPRENTICE, JESSICA B 47 7.9 ALLERGIC RHINITIS 04/27/2009 MADL MANAGER SOCIAL SERVICES, OLMAN L 338 .2 CHRONIC PAIN 04/27/2009 MADL MANAGER SOCIAL SERVICES, OLMAN L 477 .9 ALLERGIC RHINITIS 04/27/2009 MATHEW DO, RAGHAV K 338.2 CHRONIC PAIN 04/27/2009 MATHEW DO, RAGHAV K 477.9 ALLERGIC RHINITIS 04/27/2009 MADL MANAGER SOCIAL SERVICES, OLMAN L 338 .2 CHRONIC PAIN 04/27/2009 MADL MANAGER SOCIAL SERVICES, OLMAN L 477 .9 ALLERGIC RHINITIS 04/27/2009 MATHEW DO, RAGHAV K 338.2 CHRONIC PAIN 04/27/2009 MATHEW DO, RAGHAV K 477.9 ALLERGIC RHINITIS 05/03/2009 MADL MANAGER SOCIAL SERVICES, OLMAN L NOD X NO DIAGNOSIS 05/03/2009 MADL MANAGER SOCIAL SERVICES, OLMAN L NOD X NO DIAGNOSIS 05/03/2009 MADL MANAGER SOCIAL SERVICES, OLMAN L NOD X NO DIAGNOSIS 05/03/2009 MADL MANAGER SOCIAL SERVICES, OLMAN L NOD X NO DIAGNOSIS 05/03/2009 MATHEW DORAGHAV K NODX NO DIAGNOSIS 05/03/2009 MATHEW DORAGHAV K NODX NO DIAGNOSIS 05/03/2009 MADL MANAGER SOCIAL SERVICES, OLMAN L NOD X NO DIAGNOSIS 05/03/2009 EUGENIA DIE DESIGNER APPRENTICE, JESSICA B NO DX NO DIAGNOSIS 05/03/2009 MADL MANAGER SOCIAL SERVICES, OLMAN L NOD X NO DIAGNOSIS 05/03/2009 MATHEW DORAGHAV K NODX NO DIAGNOSIS 05/03/2009 MADL MANAGER SOCIAL SERVICES, OLMAN L NOD X NO DIAGNOSIS 05/03/2009 MATHEW DORAGHAV NODX NO DIAGNOSIS 01/15/2010 Ot 263.0 01/15/2010 [...] 577.0 10/27/2010 Ot 789.00 11/23/2010 Ot 535.30 ALC OHOLIC GASTRITIS,W/O MENTION OF HEMOR 11/23/2010 Ot 789.09 ABD OMINAL PAIN, OTHER SPECIFIED SITE 11/26/2010 Ot 577.1 SQL MANAGER DIPESH PANCREATITIS 11/26/[address] PAIN NEC 12/05/2010 Ot 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 12/05/2010 Ot 599.0 URIN TRACT INFECTION NOS 12/05/2010 Ot 787.03 VOM ITING ALONE 12/05/2010 Ot 789.02 ABD OMINAL PAIN, LEFT UPPER QUADRANT 12/13/2010 Ot 287.49 OTH ER SECONDARY THROMBOCYTOPENIA 12/13/2010 Ot 288.50 SEVERINO KOCYTOPENIA, UNSPECIFIED 12/13/2010 Ot 300.4 DYST HYMIC DISORDER 12/13/2010 Ot 303.01 AC ALCOHOL INTOX- CONTIN 12/13/2010 Ot 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 12/13/2010 Ot 338.29 OTH ER CHRONIC PAIN 12/13/2010 Ot 577.1 SQL MANAGER DIPESH PANCREATITIS 12/13/2010 Ot V58.69 OTH MED,LT,CURRENT USE 04/15/2011 Ot 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 04/15/[address] PAIN NOS 04/15/2011 Ot 786.52 WAYNE NFUL RESPIRATION 05/18/2011 Ot 276.51 DEH YDRATION 05/18/2011 Ot 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 05/18/2011 Ot 305.90 JARRET G ABUSE NEC- UNSPEC 05/18/2011 Ot 338.29 OTH ER CHRONIC PAIN 05/18/2011 Ot 486 PNEUMO KATHLEEN, ORGANISM NOS 05/18/2011 Ot 518.5 POST TRAUM PULM INSUFFIC 05/18/2011 Ot 593.9 MARLYN L URETERAL DIS NOS 05/18/2011 Ot 790.99 BLO OD EXAM - OTH NONSPECIFIC FINDINGS 05/18/2011 Ot 965.09 POI SONING-OPIATES NEC 05/18/2011 Ot E850.2 ACC POISON- OPIATES NEC 05/18/2011 Ot V15.81 HX OF PAST NONCOMPLIANCE 09/19/2011 Ot 729.5 PAIN IN LIMB 01/19/2012 Ot 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) 02/22/2012 Ot 276.51 DEH YDRATION 02/22/2012 Ot 300.00 ANX IETY STATE NOS 02/22/2012 Ot 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75 BEL OW KNEE AMPUTATION STATUS 03/19/2012 Ot 276.51 DEH YDRATION 03/19/2012 Ot 303.93 ALC OH DEP NEC/NOS-REMISS 03/19/2012 Ot 305.90 JARRET G ABUSE NEC- UNSPEC 03/19/2012 Ot 493.90 AST HMA, UNSPECIFIED 03/19/2012 Ot 584.9 ACUT E RENAL FAILURE, UNSPECIFIED 03/19/2012 Ot 780.09 OTH ER ALTERATION OF CONSCIOUSNESS 03/19/2012 Ot V49.70 UNS PECIFIED LEVEL LOWER LIMB AMPUTATION 06/06/2012 Ot 924.10 CON TUSION OF LOWER LEG 06/06/2012 Ot 959.7 LOWE R LEG INJURY NOS 06/06/2012 Ot E000.8 OTH ER EXTERNAL CAUSE STATUS 06/06/2012 Ot E849.0 ACC IDENT IN HOME 06/06/2012 Ot E917.9 STR UCK BY OBJ/PERSON NEC 07/28/2012 Ot 920 CONTUS ION FACE/SCALP/NCK 07/28/2012 Ot 923.00 CON TUSION SHOULDER REG 07/28/2012 Ot 959.01 HEA D INJURY, NOS 07/28/2012 Ot E000.8 OTH ER EXTERNAL CAUSE STATUS 07/28/2012 Ot E849.0 ACC IDENT IN HOME 07/28/2012 Ot E888.9 FAL L NOS 09/14/2012 Ot 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 1 TOBACCO USE DISORDER 02/06/2013 MARIANN LAO, PAIGE Villa Ot 482. 2 H.INFLUENZAE PNEUMONIA 02/06/2013 MARIANN LAO, PAIGE Villa Ot 493. 90 ASTHMA, UNSPECIFIED 02/06/2013 MARIANN LAO, PAIGE Villa Ot V03. 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) 03/15/2013 DARON DO ELVIS Ot 443.9 PERIPH VASCULAR DIS NOS 03/15/2013 DARON DO, ELVIS Ot 486 PNEUMONIA, ORGANISM NOS 03/15/2013 NERI DO, ELVIS Ot 496 CHR AIRWAY OBSTRUCT NEC 03/15/2013 NERISHANICE REES ELVIS Ot 965.09 POISONING-OPIATES NEC 03/15/2013 DARON REES ELVIS Ot E850.2 ACC POISON-OPIATES NEC 03/15/2013 DARON REES ELVIS Ot V46.2 SUPPLEMENTAL OXYGEN 03/15/2013 DARON REES ELVIS Ot 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 04/13/2013 ANDREIA LAO, GREG Orozco Ot 300.00 ANXIETY STATE NOS 04/13/2013 ANDREIA LAO, GREG Orozco Ot 31 1 DEPRESSIVE DISORDER NEC 04/13/2013 ANDREIA LAO, GREG Orozco Ot 49 6 CHR AIRWAY OBSTRUCT NEC 04/13/2013 GREG BOSWELL MD Ot 530.81 ESOPHAGEAL REFLUX 04/13/2013 GREG BOSWELL MD Ot 965.09 POISONING-OPIATES NEC 04/13/2013 GREG BOSWELL MD Ot E849.0 ACCIDENT IN HOME 04/13/2013 GREG BOSWELL MD Ot E850.2 ACC POISON-OPIATES NEC 04/13/2013 ANDREIA LAO, GREG Orozco Ot 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 05/21/2013 STEFFEN VALDERRAMA Ot 300.00 ANXIETY STATE NOS 05/21/2013 STEFFEN VALDERRAMA Ot 305.1 TOBACCO USE DISORDER 05/21/2013 STEFFEN VALDERRAMA Ot 305.90 DRUG ABUSE NEC-UNSPEC 05/21/2013 STEFFEN VALDERRAMA Ot 3 11 DEPRESSIVE DISORDER NEC 05/21/2013 STEFFEN VALDERRAMA Ot 346.90 MIGRAINE UNSPECIFIED W/O INTRACT MGRN W/ 05/21/2013 STEFFEN VALDERRAMA Ot 355.9 MONONEURITIS NOS 05/21/2013 STEFFEN VALDERRAMA Ot 491.20 OBSTR CHRONIC BRONCHITIS, W/O EXACERBATI 05/21/2013 STEFFEN VALDERRAMA Ot 575.9 DIS OF GALLBLADDER NOS 05/21/2013 STEFFEN VALDERRAMA Ot 577.1 CHRONIC PANCREATITIS 05/21/2013 STEFFEN VALDERRAMA Ot 5 86 RENAL FAILURE NOS 05/21/2013 STEFFEN VALDERRAMA Ot 924.5 CONTUSION LEG NOS 05/21/2013 STEFFEN VALDERRAMA Ot E849.0 ACCIDENT IN HOME 05/21/2013 STEFFEN VALDERRAMA Ot E917.4 STAT OB W/O SUB FALL NEC 05/21/2013 STEFFEN VALDERRAMA Ot V49.70 UNSPECIFIED LEVEL LOWER LIMB AMPUTATION 07/03/2013 DEONNA MORGAN MD Ot 300.00 ANXIETY STATE NOS 07/03/2013 DEONNA MORGAN MD Ot 303.90 ALCOH DEP NEC/NOS-UNSPEC 07/03/2013 DEONNA MORGAN MD Ot 305 .1 TOBACCO USE DISORDER 07/03/2013 DEONNA MORGAN MD Ot 305.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-UNSPEC 07/03/2013 DEONNA MORGAN MD Ot 305.90 DRUG ABUSE NEC-UNSPEC 07/03/2013 DEONNA MORGAN MD Ot 311 DEPRESSIVE DISORDER NEC 07/03/2013 DEONNA MORGAN MD Ot 338 .4 CHRONIC PAIN SYNDROME 07/03/2013 DEONNA MORGAN MD Ot 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) 07/03/2013 DEONNA MORGAN MD Ot 496 CHR AIRWAY OBSTRUCT NEC 07/03/2013 DEONNA MORGAN MD Ot 593 .9 RENAL URETERAL DIS NOS 07/03/2013 DEONNA MORGAN MD Ot 793.19 OTHER NONSPECIFIC ABNORMAL FINDING OF [place] 07/03/2013 DEONNA MORGAN MD Ot 967 .9 POIS-SEDATIVE/HYPNOT NOS 07/03/2013 DEONNA MORGAN MD Ot E980.2 UNDET POIS-SED/HYPN NEC 07/03/2013 DEONNA MORGAN MD Ot V15.81 HX OF PAST NONCOMPLIANCE 07/03/2013 DEONNA MORGAN MD Ot V15.88 HISTORY OF FALL 07/03/2013 DEONNA MORGAN MD Ot V49.70 UNSPECIFIED LEVEL LOWER LIMB AMPUTATION 10/30/2013 JUAN C FRANCISCO MANAGER SOCIAL SERVICES Ot 825.25 FX METATARSAL-CLOSED 10/30/2013 JUAN C FRANCISCO MANAGER SOCIAL SERVICES Ot 959 .7 LOWER LEG INJURY NOS 10/30/2013 JUAN C FRANCISCO MANAGER SOCIAL SERVICES Ot E000.8 OTHER EXTERNAL CAUSE STATUS 10/30/2013 JUAN C FRANCISCO MANAGER SOCIAL SERVICES Ot E91 8 CAUGHT BETWEEN OBJECTS 12/11/2013 JUAN C FRANCISCO MANAGER SOCIAL SERVICES Ot 729 .5 PAIN IN LIMB 01/20/2014 LEIA STARKS DO Ot 305.90 DRUG ABUSE NEC-UNSPEC 01/20/2014 LEIA STARKS DO Ot 338.29 OTHER CHRONIC PAIN 01/20/2014 LEIA STARKS DO Ot 719.45 JOINT PAIN-PELVIS 01/21/2014 JUAN C FRANCISCO MANAGER SOCIAL SERVICES Ot 338.29 OTHER CHRONIC PAIN 01/25/2014 MADL MANAGER SOCIAL SERVICES, OLMAN L 305 .90 OTHER MIXED OR UNSPECIFIED DRUG ABUSE UNSPECIFIED USE 01/25/2014 MADL MANAGER SOCIAL SERVICES, OLMAN L 338 .29 OTHER CHRONIC PAIN 01/25/2014 MADL MANAGER SOCIAL SERVICES, OLMAN L 305 .90 OTHER MIXED OR UNSPECIFIED DRUG ABUSE UNSPECIFIED USE 01/25/2014 MADL MANAGER SOCIAL SERVICES, OLMAN L 338 .29 OTHER CHRONIC PAIN 01/25/2014 MADL MANAGER SOCIAL SERVICES, OLMAN L 305 .90 OTHER MIXED OR UNSPECIFIED DRUG ABUSE UNSPECIFIED USE 01/25/2014 MADL MANAGER SOCIAL SERVICES, OLMAN L 338 .29 OTHER CHRONIC PAIN 01/25/2014 MADL MANAGER SOCIAL SERVICES, OLMAN L 305 .90 OTHER MIXED OR UNSPECIFIED DRUG ABUSE UNSPECIFIED USE 01/25/2014 MADL MANAGER SOCIAL SERVICES, OLMAN L 338 .29 OTHER CHRONIC PAIN 01/25/2014 MATHEW DO, RAGHAV K 305.90 OTHER MIXED OR UNSPECIFIED DRUG ABUSE UNSPECIFIED USE 01/25/2014 MATHEW DO, RAGHAV K 338.29 OTHER CHRONIC PAIN 01/25/2014 MATHEW DO, RAGHAV K 305.90 OTHER MIXED OR UNSPECIFIED DRUG ABUSE UNSPECIFIED USE 01/25/2014 MATHEW DO RAGHAV K 338.29 OTHER CHRONIC PAIN 01/25/2014 MADL MANAGER SOCIAL SERVICES, OLMAN L 305 .90 OTHER MIXED OR UNSPECIFIED DRUG ABUSE UNSPECIFIED USE 01/25/2014 MADL MANAGER SOCIAL SERVICES, OLMAN L 338 .29 OTHER CHRONIC PAIN 01/25/2014 EUGENIA DIE DESIGNER APPRENTICE, JESSICA B 305.90 OTHER MIXED OR UNSPECIFIED DRUG ABUSE UNSPECIFIED USE 01/25/2014 EUGENIA DIE DESIGNER APPRENTICE, JESSICA B 338.29 OTHER CHRONIC PAIN 01/25/2014 MADL MANAGER SOCIAL SERVICES, OLMAN L 305 .90 OTHER MIXED OR UNSPECIFIED DRUG ABUSE UNSPECIFIED USE 01/25/2014 MADL MANAGER SOCIAL SERVICES, OLMAN L 338 .29 OTHER CHRONIC PAIN 01/25/2014 MATHEW DO, RAGHAV K 305.90 OTHER MIXED OR UNSPECIFIED DRUG ABUSE UNSPECIFIED USE 01/25/2014 MATHEW DO, RAGHAV K 338.29 OTHER CHRONIC PAIN 01/25/2014 MADL MANAGER SOCIAL SERVICES, OLMAN L 305 .90 OTHER MIXED OR UNSPECIFIED DRUG ABUSE UNSPECIFIED USE 01/25/2014 MADL MANAGER SOCIAL SERVICES, OLMAN L 338 .29 OTHER CHRONIC PAIN 01/25/2014 MATHEW DO, RAGHAV K 305.90 OTHER MIXED OR UNSPECIFIED DRUG ABUSE UNSPECIFIED USE 01/25/2014 MATHEW DO, RAGHAV K 338.29 OTHER CHRONIC PAIN 01/27/2014 FER MONTEIRO MD Ot 304.00 OPIOID DEPENDENCE-UNSPEC 01/27/2014 FER MONTEIRO MD Ot 784.0 HEADACHE 01/27/2014 FER MONTEIRO MD Ot V15.81 HX OF PAST NONCOMPLIANCE 01/27/2014 FER MONTEIRO MD Ot V58.69 OTH MED,LT,CURRENT USE 02/01/2014 RAUDEL DO, LEIA K Ot 305.90 DRUG ABUSE NEC-UNSPEC 02/01/2014 LEIA STARKS DO K Ot 338.29 OTHER CHRONIC PAIN 02/04/2014 JUAN C FRANCISCO MANAGER SOCIAL SERVICES Ot 305.70 AMPHETAMINE ABUSE-UNSPEC 02/04/2014 JUAN C FRANCISCO MANAGER SOCIAL SERVICES Ot 338.29 OTHER CHRONIC PAIN 02/04/2014 JUAN C FRANCISCO MANAGER SOCIAL SERVICES Ot 784 .0 HEADACHE 02/11/2014 MADL MANAGER SOCIAL SERVICES, OLMAN L 300 .00 ANXIETY UNSPEC 02/11/2014 MADL MANAGER SOCIAL SERVICES, OLMAN L 304 .90 UNSPECIFIED DRUG DEPENDENCE UNSPECIFIED USE 02/11/2014 MADL MANAGER SOCIAL SERVICES, OLMAN L 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) 02/11/2014 MADL MANAGER SOCIAL SERVICES, OLMAN L 496 CHRONIC AIRWAY OBSTRUCTION NOT ELSEWHERE CLASSIFIED 02/11/2014 MADL MANAGER SOCIAL SERVICES, OLMAN L 300 .00 ANXIETY UNSPEC 02/11/2014 MADL MANAGER SOCIAL SERVICES, OLMAN L 304 .90 UNSPECIFIED DRUG DEPENDENCE UNSPECIFIED USE 02/11/2014 MADL MANAGER SOCIAL SERVICES, OLMAN L 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) 02/11/2014 MADL MANAGER SOCIAL SERVICES, OLMAN L 496 CHRONIC AIRWAY OBSTRUCTION NOT ELSEWHERE CLASSIFIED 02/11/2014 MADL MANAGER SOCIAL SERVICES, OLMAN L 300 .00 ANXIETY UNSPEC 02/11/2014 MADL MANAGER SOCIAL SERVICES, OLMAN L 304 .90 UNSPECIFIED DRUG DEPENDENCE UNSPECIFIED USE 02/11/2014 MADL MANAGER SOCIAL SERVICES, OLMAN L 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) 02/11/2014 MADL MANAGER SOCIAL SERVICES, OLMAN L 496 CHRONIC AIRWAY OBSTRUCTION NOT [...] AIRWAY OBSTRUCTION NOT ELSEWHERE CLASSIFIED 02/11/2014 MADL MANAGER SOCIAL SERVICES, OLMAN L 300 .00 ANXIETY UNSPEC 02/11/2014 MADL MANAGER SOCIAL SERVICES, OLMAN L 304 .90 UNSPECIFIED DRUG DEPENDENCE UNSPECIFIED USE 02/11/2014 MADL MANAGER SOCIAL SERVICES, OLMAN L 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) 02/11/2014 MADL MANAGER SOCIAL SERVICES, OLMAN L 496 CHRONIC AIRWAY OBSTRUCTION NOT ELSEWHERE CLASSIFIED 02/11/2014 EUGENIA DIE DESIGNER APPRENTICE, JESSICA B 300.00 ANXIETY UNSPEC 02/11/2014 EUGENIA DIE DESIGNER APPRENTICE, JESSICA B 304.90 UNSPECIFIED DRUG DEPENDENCE UNSPECIFIED USE 02/11/2014 EUGENIA DIE DESIGNER APPRENTICE, JESSICA B 35 3.6 PHANTOM LIMB (SYNDROME) 02/11/2014 EUGENIA DIE DESIGNER APPRENTICE, JESSICA B 49 6 CHRONIC AIRWAY OBSTRUCTION NOT ELSEWHERE CLASSIFIED 02/11/2014 MADL MANAGER SOCIAL SERVICES, OLMAN L 300 .00 ANXIETY UNSPEC 02/11/2014 MADL MANAGER SOCIAL SERVICES, OLMAN L 304 .90 UNSPECIFIED DRUG DEPENDENCE UNSPECIFIED USE 02/11/2014 MADL MANAGER SOCIAL SERVICES, OLMAN L 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) 02/11/2014 MADL MANAGER SOCIAL SERVICES, OLMAN L 496 CHRONIC AIRWAY OBSTRUCTION NOT ELSEWHERE CLASSIFIED 02/11/2014 MATHEW DO, RAGHAV K 300.00 ANXIETY UNSPEC 02/11/2014 MATHEW DO, RAGHAV K 304.90 UNSPECIFIED DRUG DEPENDENCE UNSPECIFIED USE 02/11/2014 MATHEW DO, RAGHAV K 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) 02/11/2014 MATHEW DO, RAGHAV K 496 CHRONIC AIRWAY OBSTRUCTION NOT ELSEWHERE CLASSIFIED 02/11/2014 MADL MANAGER SOCIAL SERVICES, OLMAN L 300 .00 ANXIETY UNSPEC 02/11/2014 MADL MANAGER SOCIAL SERVICES, OLMAN L 304 .90 UNSPECIFIED DRUG DEPENDENCE UNSPECIFIED USE 02/11/2014 MADL MANAGER SOCIAL SERVICES, OLMAN L 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) 02/11/2014 MADL MANAGER SOCIAL SERVICES, OLMAN L 496 CHRONIC AIRWAY OBSTRUCTION NOT ELSEWHERE CLASSIFIED 02/11/2014 MATHEW DO, RAGHAV K 300.00 ANXIETY UNSPEC 02/11/2014 MATHEW DO, RAGHAV K 304.90 UNSPECIFIED DRUG DEPENDENCE UNSPECIFIED USE 02/11/2014 MATHEW DO, RAGHAV K 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) 02/11/2014 MATHEW DO, RAGHAV K 496 CHRONIC AIRWAY OBSTRUCTION NOT ELSEWHERE CLASSIFIED 02/15/2014 MADL MANAGER SOCIAL SERVICES, OLMAN L 788 .41 URINARY FREQUENCY 02/15/2014 MADL MANAGER SOCIAL SERVICES, OLMAN L 788 .41 URINARY FREQUENCY 02/15/2014 MATHEW DO, RAGHAV K 788.41 URINARY FREQUENCY 02/15/2014 MATHEW DO, RAGHAV K 788.41 URINARY FREQUENCY 02/15/2014 MADL MANAGER SOCIAL SERVICES, OLMAN L 788 .41 URINARY FREQUENCY 02/15/2014 JESSICA BELLO LCPC B 788.41 URINARY FREQUENCY 02/15/2014 MADL MANAGER SOCIAL SERVICES, OLMAN L 788 .41 URINARY FREQUENCY 02/15/2014 MATHEW DO, RAGHAV K 788.41 URINARY FREQUENCY 02/15/2014 MADL MANAGER SOCIAL SERVICES, OLMAN L 788 .41 URINARY FREQUENCY 02/15/2014 MATHEW DO, RAGHAV K 788.41 URINARY FREQUENCY 03/01/2014 MADL MANAGER SOCIAL SERVICES, OLMAN L 787 .02 NAUSEA ALONE 03/01/2014 MADL MANAGER SOCIAL SERVICES, OLMAN L 796 .2 ELEVATED BLOOD PRESSURE READING WITHOUT DIAGNOSIS OF HYPERTENSION 03/01/2014 MATHEW DO, RAGHAV K 787.02 NAUSEA ALONE 03/01/2014 MATHEW DO, RAGHAV K 796.2 ELEVATED BLOOD PRESSURE READING WITHOUT DIAGNOSIS OF HYPERTENSION 03/01/2014 MATHEW DO, RAGHAV K 787.02 NAUSEA ALONE 03/01/2014 MATHEW DO, RAGHAV K 796.2 ELEVATED BLOOD PRESSURE READING WITHOUT DIAGNOSIS OF HYPERTENSION 03/01/2014 MADL MANAGER [employer], OLMAN L 787 .02 NAUSEA ALONE 03/01/2014 MADL MANAGER [employer], OLMAN L 796 .2 ELEVATED BLOOD PRESSURE READING WITHOUT DIAGNOSIS OF HYPERTENSION 03/01/2014 JESSICA BELLO LCPC B 787.02 NAUSEA ALONE 03/01/2014 JESSICA BELLO LCPC B 79 6.2 ELEVATED BLOOD PRESSURE READING WITHOUT DIAGNOSIS OF HYPERTENSION 03/01/2014 MADL MANAGER [employer], OLMAN L 787 .02 NAUSEA ALONE 03/01/2014 MADL MANAGER [employer], OLMAN L 796 .2 ELEVATED BLOOD PRESSURE READING WITHOUT DIAGNOSIS OF HYPERTENSION 03/01/2014 MATHEW DO, RAGHAV K 787.02 NAUSEA ALONE 03/01/2014 MATHEW DO, RAGHAV K 796.2 ELEVATED BLOOD PRESSURE READING WITHOUT DIAGNOSIS OF HYPERTENSION 03/01/2014 MADL MANAGER [employer], OLMAN L 787 .02 NAUSEA ALONE 03/01/2014 MADL MANAGER [employer], OLMAN L 796 .2 ELEVATED BLOOD PRESSURE READING WITHOUT DIAGNOSIS OF HYPERTENSION 03/01/2014 MATHEW DO RAGHAV K 787.02 NAUSEA ALONE 03/01/2014 MATHEW DO RAGHAV K 796.2 ELEVATED BLOOD PRESSURE READING WITHOUT DIAGNOSIS OF HYPERTENSION 03/19/2014 MADL MANAGER [employer], OLMAN L 305 .50 OPIOID ABUSE 03/19/2014 MADL MANAGER [employer], OLMAN L 305 .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 03/19/2014 MADL MANAGER [employer], OLMAN L 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 03/19/2014 MATHEW DO RAGHAV K 305.50 OPIOID ABUSE 03/19/2014 MATHEW DO RAGHAV K 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 03/19/2014 MATHEW DO RAGHAV K 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 03/19/2014 QUINCY REES RAGHAV K 305.50 OPIOID ABUSE 03/19/2014 MATHEW DO RAGHAV K 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 03/19/2014 MATHEW DO RAGHAV K 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 03/19/2014 MADL MANAGER [employer], OLMAN L 305 .50 OPIOID ABUSE 03/19/2014 MADL MANAGER [employer], OLMAN L 305 .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 03/19/2014 MADL MANAGER [employer], OLMAN L 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 03/19/2014 [employer] APPRENTICE, JESSICA B 305.50 OPIOID ABUSE 03/19/2014 EU[employer] DESIGN[employer] APPRENTICE, JESSICA B 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 03/19/2014 EU[employer] D[employer] DESIGNER APPRENTICE, JESSICA B 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 03/19/2014 MADL MANAGER [employer], OLMAN L 305 .50 OPIOID ABUSE 03/19/2014 MADL MANAGER [employer], OLMAN L 305 .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 03/19/2014 MADL MANAGER [employer], OLMAN L 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 03/19/2014 MATHEW DO, RAGHAV K 305.50 OPIOID ABUSE 03/19/2014 MATHEW DO, RAGHAV K 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 03/19/2014 MATHEW DO, RAGHAV K 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 03/19/2014 MADL MANAGER [employer], OLMAN L 305 .50 OPIOID ABUSE 03/19/2014 MADL MANAGER [employer], OLMAN L 305 .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 03/19/2014 MADL MANAGER [employer], OLMAN L 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 03/19/2014 MATHEW DO, RAGHAV K 305.50 OPIOID ABUSE 03/19/2014 MATHEW DO, RAGHAV K 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 03/19/2014 MATHEW DO, RAGHAV K 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 06/04/2014 QUINCY REES RAGHAV K 593.9 UNSPECIFIED DISORDER OF KIDNEY AND URETER 06/04/2014 QUINCY REES RAGHAV K 593.9 UNSPECIFIED DISORDER OF KIDNEY AND URETER 06/04/2014 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, OLMAN L 593 .9 UNSPECIFIED DISORDER OF KIDNEY AND URETER 06/04/2014 [facility], JESSICA B 59 3.9 UNSPECIFIED DISORDER OF KIDNEY AND URETER 06/04/2014 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, OLMAN L 593 .9 UNSPECIFIED DISORDER OF KIDNEY AND URETER 06/04/2014 MATHEW DO RAGHAV K 593.9 UNSPECIFIED DISORDER OF KIDNEY AND URETER 06/04/2014 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, 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 L 593 .9 UNSPECIFIED DISORDER OF KIDNEY AND URETER 06/04/2014 QUINCY REES RAGHAV K 593.9 UNSPECIFIED DISORDER OF KIDNEY AND URETER 08/04/2014 QUINCY REES RAGHAV K Ot 305.1 TOBACCO USE DISORDER 08/04/2014 QUINCY REES RAGHAV K Ot 401.9 HYPERTENSION NOS 08/04/2014 QUINCY REES RAGHAV K Ot 486 PNEUMONIA, ORGANISM NOS 08/04/2014 QUINCY REES RAGHAV K Ot 518.84 ACUTE AND CHRONIC RESPIRATORY FAILURE 08/04/2014 QUINCY REES RAGHAV K Ot 530.81 ESOPHAGEAL REFLUX 08/04/2014 QUINCY REES RAGHAV K Ot V04.81 ND FOR PROPHYLACTIC VACCIN AND INOCULATI 08/04/2014 RAGHAV MATHEW DO Ot 305.1 08/04/2014 RAGHAV MTAHEW DO Ot 401.9 08/04/2014 RAGHAV MATHEW DO Ot 486 08/04/2014 RAGHAV MATHEW DO Ot 518.84 08/04/2014 RAGHAV MATHEW DO Ot 530.81 08/04/2014 RAGHAV MATHEW DO Ot V04.81 12/15/2014 JUAN C FRANCISCO MANAGER SOCIAL SERVICES Ot 998.12 HEMATOMA COMPLIC A PROC 12/15/2014 JUAN C FRANCISCO APRN Ot 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 80 BIPOLAR DISORDER, UNSPECIFIED 03/07/2015 PAIGE WAITE MD Ot 300. 00 ANXIETY STATE NOS 03/07/2015 PAIGE WAITE MD Ot 303. 90 ALCOH DEP NEC/NOS-UNSPEC 03/07/2015 PAIGE WAITE MD Ot 305. 1 TOBACCO USE DISORDER 03/07/2015 PAIGE WAITE MD Ot 338. 29 OTHER CHRONIC PAIN 03/07/2015 PAIGE WAITE MD Ot 491. 21 OBSTR CHRONIC BRONCHITIS, W (ACUTE) EXAC 03/07/2015 PAIGE WAITE MD Ot 733. 00 OSTEOPOROSIS NOS 03/07/2015 PAIGE WAITE MD Ot V03. 82 PROPHYLACTIC VACC AGAINST STREPTOCOCCUS 03/07/2015 PAIGE WAITE MD Ot V12. 61 PERSONAL HISTORY, PNEUMONIA (RECURRENT) 03/07/2015 PAIGE WAITE MD Ot V12. 79 PERSONAL HISTORY OTH SPEC DIGESTIVE SYST 03/07/2015 PAIGE WAITE MD Ot V15. 81 HX OF PAST NONCOMPLIANCE 03/07/2015 PAIGE WAITE MD Ot V46. 2 SUPPLEMENTAL OXYGEN 03/07/2015 PAIGE WAITE MD Ot V49. 76 ABOVE KNEE AMPUTATION STATUS 07/14/2015 STEFFEN VALDERRAMA Ot F12.10 CANNABIS ABUSE, UNCOMPLICATED 07/14/2015 STEFFEN VALDERRAMA Ot F15.10 OTHER STIMULANT ABUSE, UNCOMPLICATED 07/14/2015 STEFFEN VALDERRAMA Ot F17.210 NICOTINE DEPENDENCE, CIGARETTES, UNCOMPL 07/14/2015 STEFFEN VALDERRAMA Ot F19.10 OTHER PSYCHOACTIVE SUBSTANCE ABUSE, UNCO 07/14/2015 STEFFEN AVLDERRAMA Ot R10.9 UNSPECIFIED ABDOMINAL PAIN 07/14/2015 STEFFEN [...] STEFFEN VALDERRAMA Ot Y92.[address] IN [place] NON-INSTITUT (PRIVATE 04/29/2016 STEFFEN VALDERRAMA Ot Y93.89 ACTIVITY, OTHER SPECIFIED 04/29/2016 STEFFEN VALDERRAMA Ot Y99.8 OTHER EXTERNAL CAUSE STATUS 07/15/2016 KADE RIVERA MD Ot F17.210 NICOTINE DEPENDENCE, CIGARETTES, UNCOMPL 07/15/2016 KADE RIVERA MD Ot G89.29 OTHER CHRONIC PAIN 07/15/2016 KADE RIVERA MD Ot J44.9 CHRONIC OBSTRUCTIVE PULMONARY DISEASE, U 07/15/2016 KADE RIVERA MD Ot R10.84 GENERALIZED ABDOMINAL PAIN 07/15/2016 KADE RIVERA MD Ot Z76.0 ENCOUNTER FOR ISSUE OF REPEAT PRESCRIPTI 07/15/2016 KADE RIVERA MD Ot Z79.899 OTHER DETENTION (CURRENT) DRUG THERAPY 07/15/2016 KADE RIVERA MD Ot Z89.512 ACQUIRED ABSENCE OF LEFT LEG BELOW KNEE 07/17/2016 KADE RIVERA MD Ot F17.210 NICOTINE DEPENDENCE, CIGARETTES, UNCOMPL 07/17/2016 KADE RIVERA MD Ot G89.29 OTHER CHRONIC PAIN 07/17/2016 KADE RIVERA MD, Ot J44.9 CHRONIC OBSTRUCTIVE PULMONARY DISEASE, U 07/17/2016 KADE RIVERA MD Ot R10.84 GENERALIZED ABDOMINAL PAIN 07/17/2016 KADE RIVERA MD Ot Z76.0 ENCOUNTER FOR ISSUE OF REPEAT PRESCRIPTI 07/17/2016 KADE RIVERA MD Ot Z79.899 OTHER DETENTION (CURRENT) DRUG THERAPY 07/17/2016 KADE RIVERA MD Ot Z89.512 ACQUIRED ABSENCE OF LEFT LEG BELOW KNEE 07/21/2016 JUAN C FRANCISCO APRN Ot F17.210 NICOTINE DEPENDENCE, CIGARETTES, UNCOMPL 07/21/2016 JUAN C FRANCISCO APRN Ot I77.819 AORTIC ECTASIA, UNSPECIFIED SITE 07/21/2016 JUAN C FRANCISCO APRN Ot J44 .9 CHRONIC OBSTRUCTIVE PULMONARY DISEASE, U 07/21/2016 JUAN C FRANCISCO APRN Ot M81 .0 AGE-RELATED OSTEOPOROSIS W/O CURRENT PAT 07/21/2016 JUAN [...] HOUS 07/21/2016 JUAN C FRANCISCO APRN Ot Y93 .9 ACTIVITY, UNSPECIFIED 07/21/2016 JUAN C FRANCISCO APRN Ot Y99 .8 OTHER EXTERNAL CAUSE STATUS 07/23/2016 JUAN C FRANCISCO APRN Ot F17.210 NICOTINE DEPENDENCE, CIGARETTES, UNCOMPL 07/23/2016 JUAN C FRANCISCO APRN Ot I77.819 AORTIC ECTASIA, UNSPECIFIED SITE 07/23/2016 JUAN C FRANCISCO APRN Ot J44 .9 CHRONIC OBSTRUCTIVE PULMONARY DISEASE, U 07/23/2016 JUAN C FRANCISCO APRN Ot M81 .0 AGE-RELATED OSTEOPOROSIS W/O CURRENT PAT 07/23/2016 JUAN [...] HOUS 07/23/2016 JUAN C FRANCISCO APRN Ot Y93 .9 ACTIVITY, UNSPECIFIED 07/23/2016 JUAN C FRANCISCO APRN Ot Y99 .8 OTHER EXTERNAL CAUSE STATUS 08/11/2016 YANI BOSTON MD Ot F10.21 ALCOHOL DEPENDENCE, IN REMISSION 08/11/2016 YANI BOSTON MD Ot F17.210 NICOTINE DEPENDENCE, CIGARETTES, UNCOMPL 08/11/2016 YANI BOSTON MD Ot F32 .9 MAJOR DEPRESSIVE DISORDER, SINGLE EPISOD 08/11/2016 YANI BOSTON MD Ot F41 .9 ANXIETY DISORDER, UNSPECIFIED 08/11/2016 YANI BOSTON MD Ot J44 .9 CHRONIC OBSTRUCTIVE PULMONARY DISEASE, U 08/11/2016 YANI BOSTON MD Ot K29.71 GASTRITIS, UNSPECIFIED, WITH BLEEDING 08/11/2016 YANI BOSTON MD Ot K59.00 CONSTIPATION, UNSPECIFIED 08/11/2016 YANI BOSTON MD Ot K85.90 ACUTE PANCREATITIS WITHOUT NECROSIS OR I 08/11/2016 YANI BOSTON MD Ot K86 .3 PSEUDOCYST OF PANCREAS 08/11/2016 YANI BOSTON MD Ot M81 .0 AGE-RELATED OSTEOPOROSIS W/O CURRENT PAT 08/11/2016 YANI BOSTON MD Ot 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 08/17/2016 LASHAY CONDE MD Ot F10.21 ALCOHOL DEPENDENCE, IN REMISSION 08/17/2016 LASHAY CONDE MD Ot F17.210 NICOTINE DEPENDENCE, CIGARETTES, UNCOMPL 08/17/2016 LASHAY CONDE MD Ot F32 .9 MAJOR DEPRESSIVE DISORDER, SINGLE EPISOD 08/17/2016 LASHAY CONDE MD Ot F41 .9 ANXIETY DISORDER, UNSPECIFIED 08/17/2016 LASHAY CONDE MD Ot J44 .9 CHRONIC OBSTRUCTIVE PULMONARY DISEASE, U 08/17/2016 LASHAY CONDE MD Ot K29.70 GASTRITIS, UNSPECIFIED, WITHOUT BLEEDING 08/17/2016 LASHAY CONDE MD Ot K86 .1 OTHER CHRONIC PANCREATITIS 08/17/2016 LASHAY CONDE MD Ot K86 .3 PSEUDOCYST OF PANCREAS 08/17/2016 LASHAY CONDE MD Ot M81 .0 AGE-RELATED OSTEOPOROSIS W/O CURRENT PAT 08/17/2016 LASHAY CONDE MD Ot 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 05/21/2017 JUAN C FRANCISCO APRN Ot F32 .9 MAJOR DEPRESSIVE DISORDER, SINGLE EPISOD 05/21/2017 JUAN C FRANCISCO APRN Ot F41 .9 ANXIETY DISORDER, UNSPECIFIED 05/21/2017 JUAN C FRANCISCO APRN Ot J43 .9 EMPHYSEMA, UNSPECIFIED 05/21/2017 JUAN C FRANCISCO APRN Ot K86 .1 OTHER CHRONIC PANCREATITIS 05/21/2017 JUAN C FRANCISCO APRN Ot K86 .3 PSEUDOCYST OF PANCREAS 05/21/2017 JUAN C FRANCISCO APRN Ot R10.84 GENERALIZED ABDOMINAL PAIN 05/21/2017 JUAN C FRANCISCO APRN Ot Z86.73 PRSNL HX OF TIA (TIA), AND CEREB INFRC W 05/21/2017 JUAN C FRANCISCO APRN Ot Z87.19 PERSONAL HISTORY OF OTHER DISEASES OF TH 05/21/2017 JUAN C FRANCISCO APRN Ot Z89 .9 ACQUIRED ABSENCE OF LIMB, UNSPECIFIED 05/21/2017 JUAN C FRANCISCO APRN Ot Z90.710 ACQUIRED ABSENCE OF BOTH CERVIX AND UTER 08/07/2017 ASHLEIGH ORTEGA DO Ot A41. 9 SEPSIS, UNSPECIFIED ORGANISM 08/07/2017 ASHLEIGH ORTEGA DO Ot B96. 20 UNSP ESCHERICHIA COLI THE CAUSE OF DI 08/07/2017 ASHLEIGH ORTEGA DO Ot E83. 42 HYPOMAGNESEMIA 08/07/2017 ASHLEIGH ORTEGA DO Ot E86. 0 DEHYDRATION 08/07/2017 ASHLEIGH ORTEGA DO Ot E87. 2 ACIDOSIS 08/07/2017 ASHLEIGH ORTEGA DO Ot F17.210 NICOTINE DEPENDENCE, CIGARETTES, UNCOMPL 08/07/2017 ASHLEIGH ORTEGA DO Ot F32. 9 MAJOR DEPRESSIVE DISORDER, SINGLE EPISOD 08/07/2017 ASHLEIGH ORTEGA DO Ot F41. 9 ANXIETY DISORDER, UNSPECIFIED 08/07/2017 ASHLEIGH ORTEGA DO Ot J43. 8 OTHER EMPHYSEMA 08/07/2017 ASHLEIGH ORTEGA DO Ot M81. 0 AGE-RELATED OSTEOPOROSIS W/O CURRENT PAT 08/07/2017 ASHLEIGH ORTEGA DO Ot N17. 9 ACUTE KIDNEY FAILURE, UNSPECIFIED 08/07/2017 SAHLEIGH ORTEGA DO Ot N39. 0 URINARY TRACT INFECTION, SITE NOT SPECIF 08/07/2017 ASHLEIGH ORTEGA DO, Ot T39.1X4A POISONING BY 4-AMINOPHENOL DERIVATIVES, 08/07/2017 ASHLEIGH ORTEGA DO Ot Z86. 73 PRSNL HX OF TIA (TIA), AND CEREB INFRC W 08/07/2017 ASHLEIGH ORTEGA DO Ot Z90.710 ACQUIRED ABSENCE OF BOTH CERVIX AND UTER 08/07/2017 ASHLEIGH ORTEGA DO Ot A41. 9 SEPSIS, UNSPECIFIED ORGANISM 08/07/2017 ASHLEIGH ORTEGA DO Ot B96. 20 UNSP ESCHERICHIA COLI THE CAUSE OF DI 08/07/2017 ASHLEIGH ORTEGA DO Ot E83. 42 HYPOMAGNESEMIA 08/07/2017 ASHLEIGH ORTEGA DO Ot E86. 0 DEHYDRATION 08/07/2017 ASHLEIGH ORTEGA DO Ot E87. 2 ACIDOSIS 08/07/2017 ASHLEIGH ORTEGA DO Ot F17.210 NICOTINE DEPENDENCE, CIGARETTES, UNCOMPL 08/07/2017 ASHLEIGH ORTEGA DO Ot F32. 9 MAJOR DEPRESSIVE DISORDER, SINGLE EPISOD 08/07/2017 ASHLEIGH ORTEGA DO Ot F41. 9 ANXIETY DISORDER, UNSPECIFIED 08/07/2017 ASHLEIGH ORTEGA DO Ot J43. 8 OTHER EMPHYSEMA 08/07/2017 ASHLEIGH ORTEGA DO Ot M81. 0 AGE-RELATED OSTEOPOROSIS W/O CURRENT PAT 08/07/2017 ASHLEIGH ORTEGA DO Ot N17. 9 ACUTE KIDNEY FAILURE, UNSPECIFIED 08/07/2017 ASHLEIGH ORTEGA DO Ot N39. 0 URINARY TRACT INFECTION, SITE NOT SPECIF 08/07/2017 ASHLEIGH ORTEGA DO, Ot T39.1X4A POISONING BY 4-AMINOPHENOL DERIVATIVES, 08/07/2017 ASHLEIGH ORTEGA DO Ot Z86. 73 PRSNL HX OF TIA (TIA), AND CEREB INFRC W 08/07/2017 ASHLEIGH ORTEGA DO Ot Z90.710 ACQUIRED ABSENCE OF BOTH CERVIX AND UTER 08/08/2017 ASHLEIGH ORTEGA DO Ot A41. 9 SEPSIS, UNSPECIFIED ORGANISM 08/08/2017 ASHLEIGH ORTEGA DO Ot B96. 20 UNSP ESCHERICHIA COLI THE CAUSE OF DI 08/08/2017 ASHLEIGH ORTEGA DO Ot E83. 42 HYPOMAGNESEMIA 08/08/2017 ASHLEIGH ORTEGA DO Ot E86. 0 DEHYDRATION 08/08/2017 ASHLEIGH ORTEGA DO Ot E87. 2 ACIDOSIS 08/08/2017 ASHLEIGH ORTEGA DO Ot F17.210 NICOTINE DEPENDENCE, CIGARETTES, UNCOMPL 08/08/2017 ASHLEIGH ORTEGA DO Ot F32. 9 MAJOR DEPRESSIVE DISORDER, SINGLE EPISOD 08/08/2017 ASHLEIGH ORTEGA DO Ot F41. 9 ANXIETY DISORDER, UNSPECIFIED 08/08/2017 ASHLEIGH ORTEGA DO Ot J43. 8 OTHER EMPHYSEMA 08/08/2017 ASHLEIGH ORTEGA DO Ot M81. 0 AGE-RELATED OSTEOPOROSIS W/O CURRENT PAT 08/08/2017 ASHLEIGH ORTEGA DO Ot N17. 9 ACUTE KIDNEY FAILURE, UNSPECIFIED 08/08/2017 ASHLEIGH ORTEGA DO Ot N39. 0 URINARY TRACT INFECTION, SITE NOT SPECIF 08/08/2017 ASHLEIGH ORTEGA DO Ot T39.1X4A POISONING BY 4-AMINOPHENOL DERIVATIVES, 08/08/2017 ASHLEIGH ORTEGA DO Ot Z86. 73 PRSNL HX OF TIA (TIA), AND CEREB INFRC W 08/08/2017 ASHLEIGH ORTEGA DO, Ot Z90.710 ACQUIRED ABSENCE OF BOTH CERVIX AND UTER 08/08/2017 ASHLEIGH ORTEGA DO, Ot A41. 51 SEPSIS DUE TO ESCHERICHIA COLI [E. COLI] 08/08/2017 ASHLEIGH ORTEGA DO, Ot A41. 9 SEPSIS, UNSPECIFIED ORGANISM 08/08/2017 ASHLEIGH ORTEGA DO, Ot B96. 20 UNSP ESCHERICHIA COLI THE CAUSE OF DI 08/08/2017 ASHLEIGH ORTEGA DO, Ot D50. 9 IRON DEFICIENCY ANEMIA, UNSPECIFIED 08/08/2017 ASHLEIGH ORTEGA DO, Ot D63. 1 ANEMIA IN CHRONIC KIDNEY DISEASE 08/08/2017 ASHLEIGH ORTEGA DO, Ot E83. 42 HYPOMAGNESEMIA 08/08/2017 ASHLEIGH ORTEGA DO Ot E86. 0 DEHYDRATION 08/08/2017 ASHLEIGH ORTEGA DO, Ot E87. 2 ACIDOSIS 08/08/2017 ASHLEIGH ORTEGA DO, Ot E87. 6 HYPOKALEMIA 08/08/2017 ASHLEIGH ORTEGA DO Ot F17.210 NICOTINE DEPENDENCE, CIGARETTES, UNCOMPL 08/08/2017 ASHLEIGH ORTEGA DO Ot F32. 9 MAJOR DEPRESSIVE DISORDER, SINGLE EPISOD 08/08/2017 ASHLEIGH ORTEGA DO, Ot F41. 9 ANXIETY DISORDER, UNSPECIFIED 08/08/2017 ASHLEIGH ORTEGA DO Ot J43. 8 OTHER EMPHYSEMA 08/08/2017 ASHLEIGH ORTEGA DO, Ot M81. 0 AGE-RELATED OSTEOPOROSIS W/O CURRENT PAT 08/08/2017 ASHLEIGH ORTEGA DO, Ot N17. 9 ACUTE KIDNEY FAILURE, UNSPECIFIED 08/08/2017 ASHLEIGH ORTEGA DO, Ot N18. 9 CHRONIC KIDNEY DISEASE, UNSPECIFIED 08/08/2017 ASHLEIGH ORTEGA DO, Ot N39. 0 URINARY TRACT INFECTION, SITE NOT SPECIF 08/08/2017 ASHLEIGH ORTEGA DO, Ot R53. 81 OTHER MALAISE 08/08/2017 ASHLEIGH ORETGA DO, Ot T39.1X4A POISONING BY 4-AMINOPHENOL DERIVATIVES, 08/08/2017 ASHLEIGH ORTEGA DO, Ot Z86. 73 PRSNL HX OF TIA (TIA), AND CEREB INFRC W 08/08/2017 ASHLEIGH ORTEGA DO, Ot 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 08/08/2017 JORDANASHLEIGH RAMIREZ DO Ot Z90.710 ACQUIRED ABSENCE OF BOTH CERVIX AND UTER 10/31/2017 FER MONTEIRO MD, Ot F17.210 NICOTINE DEPENDENCE, CIGARETTES, UNCOMPL 10/31/2017 FER MONTEIRO MD, Ot F32.9 MAJOR DEPRESSIVE DISORDER, SINGLE EPISOD 10/31/2017 FER MONTEIRO MD, Ot F41.9 ANXIETY DISORDER, UNSPECIFIED 10/31/2017 FER MONTEIRO MD, Ot J44.1 CHRONIC OBSTRUCTIVE PULMONARY DISEASE W 10/31/2017 FER MONTEIRO MD, Ot M54.5 LOW BACK PAIN 10/31/2017 FER MONTEIRO MD, Ot M81.0 AGE-RELATED OSTEOPOROSIS W/O CURRENT PAT 10/31/2017 FER MONTEIRO MD, Ot N28.9 DISORDER OF KIDNEY AND URETER, UNSPECIFI 10/31/2017 FER MONTEIRO MD, Ot N39.0 URINARY TRACT INFECTION, SITE NOT SPECIF 10/31/2017 FER MONTEIRO MD, Ot R06.02 SHORTNESS OF BREATH 10/31/2017 FER MONTEIRO MD, Ot R07.89 OTHER CHEST PAIN 10/31/2017 FER MONTEIRO MD, Ot Z79.51 DETENTION (CURRENT) USE OF 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 10/31/2017 FER MONTEIRO MD, Ot Z79.52 HAT CLEANER (CURRENT) USE OF SYSTEMIC STER 10/31/2017 FER MONTEIRO MD, Ot Z82.49 FAMILY HX OF ISCHEM HEART DIS AND OTH DI 10/31/2017 FER MONTEIRO MD, Ot Z86.73 PRSNL HX OF TIA (TIA), AND CEREB INFRC W 10/31/2017 FER MONTEIRO MD, Ot Z87.19 PERSONAL HISTORY OF OTHER DISEASES OF TH 10/31/2017 FER MONTEIRO MD, Ot Z88.0 ALLERGY STATUS TO PENICILLIN 10/31/2017 FER MONTEIRO MD, Ot Z88.1 ALLERGY STATUS TO OTHER ANTIBIOTIC AGENT 10/31/2017 FER MONTEIRO MD, Ot Z88.8 ALLERGY STATUS TO [facility] DRUG/MEDS/BIOL SUB 10/31/2017 FER MONTEIRO MD, Ot Z89.512 ACQUIRED ABSENCE OF LEFT LEG BELOW KNEE 10/31/2017 FER MONTEIRO MD, Ot Z90.710 ACQUIRED ABSENCE OF BOTH CERVIX AND UTER 11/07/2017 FER MONTEIRO MD, Ot F17.210 NICOTINE DEPENDENCE, CIGARETTES, UNCOMPL 11/07/2017 FER MONTEIRO MD, Ot F32.9 MAJOR DEPRESSIVE DISORDER, SINGLE EPISOD 11/07/2017 FER MONTEIRO MD, Ot F41.9 ANXIETY DISORDER, UNSPECIFIED 11/07/2017 FER MONTEIRO MD, Ot J44.1 CHRONIC OBSTRUCTIVE PULMONARY DISEASE W 11/07/2017 FER MONTEIRO MD, Ot M54.5 LOW BACK PAIN 11/07/2017 FER MONTEIRO MD, Ot M81.0 AGE-RELATED OSTEOPOROSIS W/O CURRENT PAT 11/07/2017 FER MONTEIRO MD, Ot N28.9 DISORDER OF KIDNEY AND URETER, UNSPECIFI 11/07/2017 FER OMNTEIRO MD, Ot N39.0 URINARY TRACT INFECTION, SITE NOT SPECIF 11/07/2017 FER MONTEIRO MD, Ot R06.02 SHORTNESS OF BREATH 11/07/2017 FER MONTEIRO MD, Ot R07.89 OTHER CHEST PAIN 11/07/2017 FER MONTEIRO MD, Ot Z79.51 DETENTION (CURRENT) USE OF 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 11/07/2017 FER MONTEIRO MD, Ot Z79.52 HAT CLEANER (CURRENT) USE OF SYSTEMIC STER 11/07/2017 FER MONTEIRO MD, Ot Z82.49 FAMILY HX OF ISCHEM HEART DIS AND OTH DI 11/07/2017 FER MONTEIRO MD, Ot Z86.73 PRSNL HX OF TIA (TIA), AND CEREB INFRC W 11/07/2017 FER MONTEIRO MD, Ot Z87.19 PERSONAL HISTORY OF OTHER DISEASES OF TH 11/07/2017 FER MONTEIRO MD, Ot Z88.0 ALLERGY STATUS TO PENICILLIN 11/07/2017 FER MONTEIRO MD Ot Z88.1 ALLERGY STATUS TO OTHER ANTIBIOTIC AGENT 11/07/2017 FER MONTEIRO MD, Ot Z88.8 ALLERGY STATUS TO [facility]TH DRUG/MEDS/BIOL SUB 11/07/2017 FER MONTEIRO MD Ot Z89.512 ACQUIRED ABSENCE OF LEFT LEG BELOW KNEE 11/07/2017 FER MONTEIRO MD Ot Z90.710 ACQUIRED ABSENCE OF BOTH CERVIX AND UTER 11/08/2017 FER MONTEIRO MD Ot F17.210 NICOTINE DEPENDENCE, CIGARETTES, UNCOMPL 11/08/2017 FER MONTEIRO MD Ot F32.9 MAJOR DEPRESSIVE DISORDER, SINGLE EPISOD 11/08/2017 FER MONTEIRO MD, Ot F41.9 ANXIETY DISORDER, UNSPECIFIED 11/08/2017 FER MONTEIRO MD Ot J44.1 CHRONIC OBSTRUCTIVE PULMONARY DISEASE W 11/08/2017 FER MONTEIRO MD Ot K86.1 OTHER CHRONIC PANCREATITIS 11/08/2017 FER MONTEIRO MD Ot M81.0 AGE-RELATED OSTEOPOROSIS W/O CURRENT PAT 11/08/2017 FER MONTEIRO MD Ot R07.9 CHEST PAIN, UNSPECIFIED 11/08/2017 FER MONTEIRO MD Ot Z79.52 DETENTION (CURRENT) USE OF SYSTEMIC STER 11/08/2017 FER MONTEIRO MD, Ot Z86.73 PRSNL HX OF TIA (TIA), AND CEREB INFRC W 11/08/2017 FER MONTEIRO MD, Ot Z87.01 PERSONAL HISTORY OF PNEUMONIA (RECURRENT 11/08/2017 FER MONTEIRO MD, Ot Z88.0 ALLERGY STATUS TO PENICILLIN 11/08/2017 FER MONTEIRO MD, Ot Z88.1 ALLERGY STATUS TO OTHER ANTIBIOTIC AGENT 11/08/2017 FER MONTEIRO MD Ot Z88.6 ALLERGY STATUS TO ANALGESIC AGENT STATUS 11/08/2017 FER MONTEIRO MD Ot Z88.8 ALLERGY STATUS TO [facility]TH DRUG/MEDS/BIOL SUB 11/08/2017 FER MONTEIRO MD, Ot Z89.512 ACQUIRED ABSENCE OF LEFT LEG BELOW KNEE 11/08/2017 FER MONTEIRO MD, Ot Z90.710 ACQUIRED ABSENCE OF BOTH CERVIX AND UTER 11/08/2017 FER MONTEIRO MD, Ot Z99.81 DEPENDENCE ON SUPPLEMENTAL OXYGEN 11/08/2017 FER MONTEIRO MD, Ot F17.210 NICOTINE [...] PAIN 11/08/2017 FER MONTEIRO MD, Ot Z79.51 HAT CLEANER (CURRENT) USE OF 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 11/08/2017 FER MONTEIRO MD, Ot Z79.52 DETENTION (CURRENT) USE OF SYSTEMIC STER 11/08/2017 FER MONTEIRO MD, Ot Z82.49 FAMILY HX OF ISCHEM HEART DIS AND OTH DI 11/08/2017 FER MONTEIRO MD, Ot Z86.73 PRSNL HX OF TIA (TIA), AND CEREB INFRC W 11/08/2017 FER MONTEIRO MD, Ot Z87.19 PERSONAL HISTORY OF OTHER DISEASES OF TH 11/08/2017 BRUEGGEMANN MD, FER T Ot Z88.0 ALLERGY STATUS TO PENICILLIN 11/08/2017 FER MONTEIRO MD Ot Z88.1 ALLERGY STATUS TO OTHER ANTIBIOTIC AGENT 11/08/2017 FER MONTEIRO MD Ot Z88.8 ALLERGY STATUS TO OTH DRUG/MEDS/BIOL SUB 11/08/2017 FER MONTEIRO MD Ot Z89.512 ACQUIRED ABSENCE OF LEFT LEG BELOW KNEE 11/08/2017 FER MONTEIRO MD Ot Z90.710 ACQUIRED ABSENCE OF BOTH CERVIX AND UTER 11/08/2017 TSEFFEN VALDERRAMA Ot F17.210 NICOTINE DEPENDENCE, CIGARETTES, UNCOMPL 11/08/2017 STEFFEN VALDERRAMA Ot F32.9 MAJOR DEPRESSIVE DISORDER, SINGLE EPISOD 11/08/2017 STEFFEN VALDERRAMA Ot F41.9 ANXIETY DISORDER, UNSPECIFIED 11/08/2017 STEFFEN VALDERRAMA Ot J43.9 EMPHYSEMA, UNSPECIFIED 11/08/2017 STEFFEN VALDERRAMA Ot K86.1 OTHER CHRONIC PANCREATITIS 11/08/2017 STEFFEN VALDERRAMA Ot M81.0 AGE-RELATED OSTEOPOROSIS W/O CURRENT PAT 11/08/2017 STEFFEN VALDERRAMA Ot N39.0 URINARY TRACT INFECTION, SITE NOT SPECIF 11/08/2017 STEFFEN VALDERRAMA Ot Z79.52 HAT CLEANER (CURRENT) USE OF SYSTEMIC STER 11/08/2017 STEFFEN VALDERRAMA Ot Z86.73 PRSNL HX OF TIA (TIA), AND CEREB INFRC W 11/08/2017 STEFFEN VALDERRAMA Ot Z87.01 PERSONAL HISTORY OF PNEUMONIA (RECURRENT 11/08/2017 STEFFEN VALDERRAMA Ot Z88.0 ALLERGY STATUS TO PENICILLIN 11/08/2017 STEFFEN VALDERRAMA Ot Z88.1 ALLERGY STATUS TO OTHER ANTIBIOTIC AGENT 11/08/2017 STEFFEN VALDERRAMA Ot Z88.5 ALLERGY STATUS TO NARCOTIC AGENT STATUS 11/08/2017 STEFFEN VALDERRAMA Ot Z88.6 ALLERGY STATUS TO ANALGESIC AGENT STATUS 11/08/2017 STEFFEN VALDERRAMA Ot Z88.8 ALLERGY STATUS TO OTH DRUG/MEDS/BIOL SUB 11/08/2017 STEFFEN VALDERRAMA Ot Z89.512 ACQUIRED ABSENCE OF LEFT LEG BELOW KNEE 11/08/2017 STEFFEN VALDERRAMA Ot Z90.710 ACQUIRED ABSENCE OF BOTH CERVIX AND UTER 11/11/2017 STEFFEN VALDERRAMA Ot F17.210 NICOTINE DEPENDENCE, CIGARETTES, UNCOMPL 11/11/2017 STEFFEN VALDERRAMA Ot F32.9 MAJOR DEPRESSIVE DISORDER, SINGLE EPISOD 11/11/2017 STEFFEN VALDERRAMA Ot F41.9 ANXIETY DISORDER, UNSPECIFIED 11/11/2017 STEFFEN VALDERRAMA Ot J43.9 EMPHYSEMA, UNSPECIFIED 11/11/2017 STEFFEN VALDERRAMA Ot K86.1 OTHER CHRONIC PANCREATITIS 11/11/2017 STEFFEN VALDERRAMA Ot M81.0 AGE-RELATED OSTEOPOROSIS W/O CURRENT PAT 11/11/2017 STEFFEN VALDERRAMA Ot N39.0 URINARY TRACT INFECTION, SITE NOT SPECIF 11/11/2017 STEFFEN VALDERRAMA Ot Z79.52 HAT CLEANER (CURRENT) USE OF SYSTEMIC STER 11/11/2017 STEFFEN VALDERRAMA Ot Z86.73 PRSNL HX OF TIA (TIA), AND CEREB INFRC W 11/11/2017 STEFFEN VALDERRAMA Ot Z87.01 PERSONAL HISTORY OF PNEUMONIA (RECURRENT 11/11/2017 STEFFEN VALDERRAMA Ot Z88.0 ALLERGY STATUS TO PENICILLIN 11/11/2017 STEFFEN VALDERRAMA Ot Z88.1 ALLERGY STATUS TO OTHER ANTIBIOTIC AGENT 11/11/2017 STEFFEN VALDERRAMA Ot Z88.5 ALLERGY STATUS TO NARCOTIC AGENT STATUS 11/11/2017 STEFFEN VALDERRAMA Ot Z88.6 ALLERGY STATUS TO ANALGESIC AGENT STATUS 11/11/2017 STEFFEN VALDERRAMA Ot Z88.8 ALLERGY STATUS TO OTH DRUG/MEDS/BIOL SUB 11/11/2017 STEFFEN VALDERRAMA Ot Z89.512 ACQUIRED ABSENCE OF LEFT LEG BELOW KNEE 11/11/2017 STEFFEN VALDERRAMA Ot Z90.710 ACQUIRED ABSENCE OF BOTH CERVIX AND UTER 11/11/2017 CAYETANO LAO, FER Li Ot F17.210 NICOTINE DEPENDENCE, CIGARETTES, UNCOMPL 11/11/2017 FER MONTEIRO MD Ot F32.9 MAJOR DEPRESSIVE DISORDER, SINGLE EPISOD 11/11/2017 FER MONTEIRO MD, Ot F41.9 ANXIETY DISORDER, UNSPECIFIED 11/11/2017 FER MONTEIRO MD, Ot J44.1 CHRONIC OBSTRUCTIVE PULMONARY DISEASE W 11/11/2017 FER MONTEIRO MD, Ot K86.1 OTHER CHRONIC PANCREATITIS 11/11/2017 FER MONTEIRO MD, Ot M81.0 AGE-RELATED OSTEOPOROSIS W/O CURRENT PAT 11/11/2017 FER MONTEIRO MD, Ot R07.9 CHEST PAIN, UNSPECIFIED 11/11/2017 FER MONTEIRO MD, Ot Z79.52 HAT CLEANER (CURRENT) USE OF SYSTEMIC STER 11/11/2017 FER MONTEIRO MD, Ot Z86.73 PRSNL HX OF TIA (TIA), AND CEREB INFRC W 11/11/2017 FER MONTEIRO MD, Ot Z87.01 PERSONAL HISTORY OF PNEUMONIA (RECURRENT 11/11/2017 FER MONTEIRO MD, Ot Z88.0 ALLERGY STATUS TO PENICILLIN 11/11/2017 FER MONTEIRO MD, Ot Z88.1 ALLERGY STATUS TO OTHER ANTIBIOTIC AGENT 11/11/2017 FER MONTEIRO MD, Ot Z88.6 ALLERGY STATUS TO ANALGESIC AGENT STATUS 11/11/2017 FER MONTEIRO MD, Ot Z88.8 ALLERGY STATUS TO OT DRUG/MEDS/BIOL SUB 11/11/2017 FER MONTEIRO MD Ot Z89.512 ACQUIRED ABSENCE OF LEFT LEG BELOW KNEE 11/11/2017 FER MONTEIRO MD, Ot Z90.710 ACQUIRED ABSENCE OF BOTH CERVIX AND UTER 11/11/2017 FER MONTEIRO MD, Ot Z99.81 DEPENDENCE ON SUPPLEMENTAL OXYGEN 12/02/2017 LOLITA HODGSON MD Ot F17.210 NICOTINE DEPENDENCE, CIGARETTES, UNCOMPL 12/02/2017 LOLITA HODGSON MD, Ot K86. 0 ALCOHOL-INDUCED CHRONIC PANCREATITIS 12/02/2017 LOLITA HODGSON MD, Ot M81. 0 AGE-RELATED OSTEOPOROSIS W/O CURRENT PAT 12/02/2017 LOLITA HODGSON MD, Ot N17. 9 ACUTE KIDNEY FAILURE, UNSPECIFIED 12/02/2017 LOLITA HODGSON MD Ot N18. 3 CHRONIC KIDNEY DISEASE, STAGE 3 (MODERAT 12/02/2017 LOLITA HODGSON MD Ot N30. 00 ACUTE CYSTITIS WITHOUT HEMATURIA 12/02/2017 LOLITA HODGSON MD Ot Z16. 29 RESISTANCE TO OTHER SINGLE SPECIFIED ANT 12/02/2017 LOLITA HODGSON MD Ot Z88. 0 ALLERGY STATUS TO PENICILLIN 12/02/2017 LOLITA HODGSON MD Ot Z88. 1 ALLERGY STATUS TO OTHER ANTIBIOTIC AGENT 12/02/2017 LOLITA HODGSON MD Ot Z88. 6 ALLERGY STATUS TO ANALGESIC AGENT STATUS 12/02/2017 LOLITA HODGSON MD Ot Z88. 8 ALLERGY STATUS TO OTH DRUG/MEDS/BIOL SUB 12/07/2017 JUAN C FRANCISCO APRN Ot F32 .9 MAJOR DEPRESSIVE DISORDER, SINGLE EPISOD 12/07/2017 JUAN C FRANCISCO APRN Ot F41 .9 ANXIETY DISORDER, UNSPECIFIED 12/07/2017 JUAN C FRANCISCO APRN Ot J43 .9 EMPHYSEMA, UNSPECIFIED 12/07/2017 JUAN C FRANCISCO APRN Ot M81 .0 AGE-RELATED OSTEOPOROSIS W/O CURRENT PAT 12/07/2017 JUAN C FRANCISCO APRN Ot R10.30 LOWER ABDOMINAL PAIN, UNSPECIFIED 12/07/2017 JUAN C FRANCISCO APRN Ot R11 .2 NAUSEA WITH VOMITING, UNSPECIFIED 12/07/2017 JUAN C FRANCISCO APRN Ot Z86.73 PRSNL HX OF TIA (TIA), AND CEREB INFRC W 12/07/2017 JUAN C FRANCISCO APRN Ot Z87.19 PERSONAL HISTORY OF OTHER DISEASES OF TH 12/07/2017 JUAN C FRANCISCO APRN Ot Z87.440 PERSONAL HISTORY OF URINARY (TRACT) INFE 12/07/2017 JUAN C FRANCISCO APRN Ot Z88 .0 ALLERGY STATUS TO PENICILLIN 12/07/2017 JUAN C FRANCISCO APRN Ot Z88 .1 ALLERGY STATUS TO OTHER ANTIBIOTIC AGENT 12/07/2017 JUAN C FRANCISCO APRN Ot Z88 .5 ALLERGY STATUS TO NARCOTIC AGENT STATUS 12/07/2017 JUAN C FRANCISCO APRN Ot Z88 .6 ALLERGY STATUS TO ANALGESIC AGENT STATUS 12/07/2017 JUAN C FRANCISCO APRN Ot Z88 .8 ALLERGY STATUS TO OTH DRUG/MEDS/BIOL SUB 12/07/2017 JUAN C FRANCISCO APRN Ot Z90.710 ACQUIRED ABSENCE OF BOTH CERVIX AND UTER 12/09/2017 JUAN C FRANCISCO APRN Ot F32 .9 MAJOR DEPRESSIVE DISORDER, SINGLE EPISOD 12/09/2017 JUAN C FRANCISCO APRN Ot F41 .9 ANXIETY DISORDER, UNSPECIFIED 12/09/2017 JUAN C FRANCISCO APRN Ot J43 .9 EMPHYSEMA, UNSPECIFIED 12/09/2017 JUAN C FRANCISCO APRN Ot M81 .0 AGE-RELATED OSTEOPOROSIS W/O CURRENT PAT 12/09/2017 JUAN C FRANCISCO APRN Ot R10.30 LOWER ABDOMINAL PAIN, UNSPECIFIED 12/09/2017 JUAN C FRANCISCO APRN Ot R11 .2 NAUSEA WITH VOMITING, UNSPECIFIED 12/09/2017 JUAN C FRANCISCO APRN Ot Z86.73 PRSNL HX OF TIA (TIA), AND CEREB INFRC W 12/09/2017 JUAN C FRANCISCO APRN Ot Z87.19 PERSONAL HISTORY OF OTHER DISEASES OF TH 12/09/2017 JUAN C FRANCISCO APRN Ot Z87.440 PERSONAL HISTORY OF URINARY (TRACT) INFE 12/09/2017 JUAN C FRANCISCO APRN Ot Z88 .0 ALLERGY STATUS TO PENICILLIN 12/09/2017 JUAN C FRANCISCO APRN Ot Z88 .1 ALLERGY STATUS TO OTHER ANTIBIOTIC AGENT 12/09/2017 JUAN C FRANCISCO APRN Ot Z88 .5 ALLERGY STATUS TO NARCOTIC AGENT STATUS 12/09/2017 JUAN C FRANCISCO APRN Ot Z88 .6 ALLERGY STATUS TO ANALGESIC AGENT STATUS 12/09/2017 JUAN C FRANCISCO APRN Ot Z88 .8 ALLERGY STATUS TO OTH DRUG/MEDS/BIOL SUB 12/09/2017 JUAN C FRANCISCO APRN Ot Z90.710 ACQUIRED ABSENCE OF BOTH CERVIX AND UTER 03/10/2018 MARIANN LAO, PAIGE Villa Ot F17.210 NICOTINE DEPENDENCE, CIGARETTES, UNCOMPL 03/10/2018 MARINAN LAO, PAIGE Villa Ot F32. 9 MAJOR DEPRESSIVE DISORDER, SINGLE EPISOD 03/10/2018 PAIGE WAITE MD Ot F41. 9 ANXIETY DISORDER, UNSPECIFIED 03/10/2018 PAIGE WAITE MD Ot G54. 6 PHANTOM LIMB SYNDROME WITH PAIN 03/10/2018 PAIGE WAITE MD Ot I73. 9 PERIPHERAL VASCULAR DISEASE, UNSPECIFIED 03/10/2018 PAIGE WAITE MD, Ot J43. 9 EMPHYSEMA, UNSPECIFIED 03/10/2018 PAIGE WAITE MD, Ot J45.909 UNSPECIFIED ASTHMA, UNCOMPLICATED 03/10/2018 PAIGE WAITE MD Ot J96. 10 CHRONIC RESPIRATORY FAILURE, UNSP W HYPO 03/10/2018 PAIGE WAITE MD, Ot M81. 0 AGE-RELATED OSTEOPOROSIS W/O CURRENT PAT 03/10/2018 PAIGE WAITE MD, Ot R82. 99 OTHER ABNORMAL FINDINGS IN URINE 03/10/2018 PAIGE WAITE MD, Ot T40.2X1A POISONING BY OTH OPIOIDS, ACCIDENTAL (UN 03/10/2018 PAIGE WAITE MD, Ot Z79.891 DETENTION (CURRENT) USE OF OPIATE ANALGE 03/10/2018 PAIGE WAITE MD, Ot Z89.611 ACQUIRED ABSENCE OF RIGHT LEG ABOVE KNEE 03/10/2018 PAIGE WAITE MD Ot Z99. 81 DEPENDENCE ON SUPPLEMENTAL OXYGEN 03/10/2018 PAIGE WAITE MD Ot F17.210 NICOTINE DEPENDENCE, CIGARETTES, UNCOMPL 03/10/2018 PAIGE WAITE MD Ot F32. 9 MAJOR DEPRESSIVE DISORDER, SINGLE EPISOD 03/10/2018 PAIGE WAITE MD, Ot F41. 9 ANXIETY DISORDER, UNSPECIFIED 03/10/2018 PAIGE WAITE MD Ot G54. 6 PHANTOM LIMB SYNDROME WITH PAIN 03/10/2018 PAIGE WAITE MD Ot I73. 9 PERIPHERAL VASCULAR DISEASE, UNSPECIFIED 03/10/2018 PAIGE WAITE MD, Ot J43. 9 EMPHYSEMA, UNSPECIFIED 03/10/2018 PAIGE WAITE MD, Ot J45.909 UNSPECIFIED ASTHMA, UNCOMPLICATED 03/10/2018 PAIGE WAITE MD, Ot J96. 10 CHRONIC RESPIRATORY FAILURE, UNSP W HYPO 03/10/2018 PAIGE WAITE MD, Ot M81. 0 AGE-RELATED OSTEOPOROSIS W/O CURRENT PAT 03/10/2018 PAIGE WAITE MD Ot R82. 99 OTHER ABNORMAL FINDINGS IN URINE 03/10/2018 MARIANNPAIGE SANZ MD, Ot T40.2X1A POISONING BY OTH OPIOIDS, ACCIDENTAL (UN 03/10/2018 PAIGE WAITE MD, Ot Z79.891 HAT CLEANER (CURRENT) USE OF OPIATE ANALGE 03/10/2018 PAIGE WAITE MD, Ot Z89.611 ACQUIRED ABSENCE OF RIGHT LEG ABOVE KNEE 03/10/2018 PAIGE WAITE MD, Ot Z99. 81 DEPENDENCE ON SUPPLEMENTAL OXYGEN 03/14/2018 PAIGE WAITE MD Ot F17.210 NICOTINE DEPENDENCE, CIGARETTES, UNCOMPL 03/14/2018 PAIGE WAITE MD Ot F32. 9 MAJOR DEPRESSIVE DISORDER, SINGLE EPISOD 03/14/2018 PAIGE WAITE MD Ot F41. 9 ANXIETY DISORDER, UNSPECIFIED 03/14/2018 PAIGE WAITE MD, Ot G54. 6 PHANTOM LIMB SYNDROME WITH PAIN 03/14/2018 PAIGE WAITE MD Ot I73. 9 PERIPHERAL VASCULAR DISEASE, UNSPECIFIED 03/14/2018 PAIGE WAITE MD, Ot J43. 9 EMPHYSEMA, UNSPECIFIED 03/14/2018 PAIGE WAITE MD, Ot J45.909 UNSPECIFIED ASTHMA, UNCOMPLICATED 03/14/2018 PAIGE WAITE MD, Ot J96. 10 CHRONIC RESPIRATORY FAILURE, UNSP W HYPO 03/14/2018 PAIGE WAITE MD, Ot M81. 0 AGE-RELATED OSTEOPOROSIS W/O CURRENT PAT 03/14/2018 PAIGE WAITE MD Ot R82. 99 OTHER ABNORMAL FINDINGS IN URINE 03/14/2018 PAIGE WAITE MD, Ot T40.2X1A POISONING BY OTH OPIOIDS, ACCIDENTAL (UN 03/14/2018 PAIGE WAITE MD, Ot Z79.891 DETENTION (CURRENT) USE OF OPIATE ANALGE 03/14/2018 PAIGE WAITE MD, Ot Z89.611 ACQUIRED ABSENCE OF RIGHT LEG ABOVE KNEE 03/14/2018 PAIGE WAITE MD, Ot Z99. 81 DEPENDENCE ON SUPPLEMENTAL OXYGEN 04/18/2018 JUAN C FRANCISCO APRN Ot F17.210 NICOTINE DEPENDENCE, CIGARETTES, UNCOMPL 04/18/2018 JUAN C FRANCISCO APRN Ot F32 .9 MAJOR DEPRESSIVE DISORDER, SINGLE EPISOD 04/18/2018 JUAN C FRANCISCO APRN Ot F41 .9 ANXIETY DISORDER, UNSPECIFIED 04/18/2018 JUAN C FRANCISCO APRN Ot G89.29 OTHER CHRONIC PAIN 04/18/2018 JUAN C FRANCISCO APRN Ot J43 .9 EMPHYSEMA, UNSPECIFIED 04/18/2018 JUAN C FRANCISCO APRN Ot M81 .0 AGE-RELATED OSTEOPOROSIS W/O CURRENT PAT 04/18/2018 JUAN C FRANCISCO APRN Ot N39 .0 URINARY TRACT INFECTION, SITE NOT SPECIF 04/18/2018 JUAN C FRANCISCO APRN Ot R10.84 GENERALIZED ABDOMINAL PAIN 04/18/2018 JUAN C FRANCISCO APRN Ot Z79.51 DETENTION (CURRENT) USE OF 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 04/18/2018 JUAN C FRANCISCO APRN Ot Z82.49 FAMILY HX OF ISCHEM HEART DIS AND OTH DI 04/18/2018 JUAN C FRANCISCO APRN Ot Z86.73 PRSNL HX OF TIA (TIA), AND CEREB INFRC W 04/18/2018 JUAN C FRANCISCO APRN Ot Z87.19 PERSONAL HISTORY OF OTHER DISEASES OF TH 04/18/2018 JUAN C FRANCISCO APRN Ot Z87.440 PERSONAL HISTORY OF URINARY (TRACT) INFE 04/18/2018 JUAN C FRANCISCO APRN Ot Z88 .0 ALLERGY STATUS TO PENICILLIN 04/18/2018 JUAN C FRANCISCO APRN Ot Z88 .1 ALLERGY STATUS TO OTHER ANTIBIOTIC AGENT 04/18/2018 JUAN C FRANCISCO APRN Ot Z88 .4 ALLERGY STATUS TO ANESTHETIC AGENT STATU 04/18/2018 JUAN C FRANCISCO APRN Ot Z88 .6 ALLERGY STATUS TO ANALGESIC AGENT STATUS 04/18/2018 JUAN C FRANCISCO APRN Ot Z88 .8 ALLERGY STATUS TO OTH DRUG/MEDS/BIOL SUB 04/18/2018 JUAN C FRANCISCO APRN Ot Z90.710 ACQUIRED ABSENCE OF BOTH CERVIX AND UTER 04/22/2018 JUAN C FRANCISCO APRN Ot F17.210 NICOTINE DEPENDENCE, CIGARETTES, UNCOMPL 04/22/2018 JUAN C FRANCISCO APRN Ot F32 .9 MAJOR DEPRESSIVE DISORDER, SINGLE EPISOD 04/22/2018 JUAN C FRANCISCO APRN Ot F41 .9 ANXIETY DISORDER, UNSPECIFIED 04/22/2018 JUAN C FRANCISCO APRN Ot G89.29 OTHER CHRONIC PAIN 04/22/2018 JUAN C FRANCISCO APRN Ot J43 .9 EMPHYSEMA, UNSPECIFIED 04/22/2018 JUAN C FRNACISCO APRN Ot M81 .0 AGE-RELATED OSTEOPOROSIS W/O CURRENT PAT 04/22/2018 JUAN C FRANCISCO APRN Ot N39 .0 URINARY TRACT INFECTION, SITE NOT SPECIF 04/22/2018 JUAN C FRANCISCO APRN Ot R10.84 GENERALIZED ABDOMINAL PAIN 04/22/2018 JUAN C FRANCISCO APRN Ot Z79.51 HAT CLEANER (CURRENT) USE OF 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 04/22/2018 JUAN C FRANCISCO APRN Ot Z82.49 FAMILY HX OF ISCHEM HEART DIS AND OTH DI 04/22/2018 JUAN C FRANCISCO APRN Ot Z86.73 PRSNL HX OF TIA (TIA), AND CEREB INFRC W 04/22/2018 JUAN C FRANCISCO APRN Ot Z87.19 PERSONAL HISTORY OF OTHER DISEASES OF TH 04/22/2018 JUAN C FRANCISCO APRN Ot Z87.440 PERSONAL HISTORY OF URINARY (TRACT) INFE 04/22/2018 JUAN C FRANCISCO APRN Ot Z88 .0 ALLERGY STATUS TO PENICILLIN 04/22/2018 JUAN C FRANCISCO APRN Ot Z88 .1 ALLERGY STATUS TO OTHER ANTIBIOTIC AGENT 04/22/2018 JUAN C FRANCISCO APRN Ot Z88 .4 ALLERGY STATUS TO ANESTHETIC AGENT STATU 04/22/2018 JUAN C FRANCISCO APRN Ot Z88 .6 ALLERGY STATUS TO ANALGESIC AGENT STATUS 04/22/2018 JUAN C FRANCISCO APRN Ot Z88 .8 ALLERGY STATUS TO OTH DRUG/MEDS/BIOL SUB 04/22/2018 JUAN C FRANCISCO APRN Ot Z90.710 ACQUIRED ABSENCE OF BOTH CERVIX AND UTER 04/22/2018 JUAN C FRANCISCO APRN Ot F17.210 NICOTINE DEPENDENCE, CIGARETTES, UNCOMPL 04/22/2018 JUAN C FRANCISCO APRN Ot F32 .9 MAJOR DEPRESSIVE DISORDER, SINGLE EPISOD 04/22/2018 JUAN C FRANCISCO APRN Ot F41 .9 ANXIETY DISORDER, UNSPECIFIED 04/22/2018 JUAN C FRANCISCO APRN Ot G89.29 OTHER CHRONIC PAIN 04/22/2018 JUAN C FRANCISCO APRN, Ot J43 .9 EMPHYSEMA, UNSPECIFIED 04/22/2018 JUAN C FRANCISCO APRN Ot M81 .0 AGE-RELATED OSTEOPOROSIS W/O CURRENT PAT 04/22/2018 JUAN C FRANCISCO APRN Ot N39 .0 URINARY TRACT INFECTION, SITE NOT SPECIF 04/22/2018 JUAN C FRANCISCO APRN Ot R10.84 GENERALIZED ABDOMINAL PAIN 04/22/2018 JUAN C FRANCISCO APRN Ot Z79.51 DETENTION (CURRENT) USE OF 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 04/22/2018 JUAN C FRANCISCO APRN Ot Z82.49 FAMILY HX OF ISCHEM HEART DIS AND OTH DI 04/22/2018 JUAN C FRANCISCO APRN Ot Z86.73 PRSNL HX OF TIA (TIA), AND CEREB INFRC W 04/22/2018 JUAN C FRANCISCO APRN Ot Z87.19 PERSONAL HISTORY OF OTHER DISEASES OF TH 04/22/2018 JUAN C FRANCISCO APRN Ot Z87.440 PERSONAL HISTORY OF URINARY (TRACT) INFE 04/22/2018 JUAN C FRANCISCO APRN Ot Z88 .0 ALLERGY STATUS TO PENICILLIN 04/22/2018 JUAN C FRANCISCO APRN Ot Z88 .1 ALLERGY STATUS TO OTHER ANTIBIOTIC AGENT 04/22/2018 JUAN C FRANCISCO APRN Ot Z88 .4 ALLERGY STATUS TO ANESTHETIC AGENT STATU 04/22/2018 JUAN C FRANCISCO APRN Ot Z88 .6 ALLERGY STATUS TO ANALGESIC AGENT STATUS 04/22/2018 JUAN C FRANCISCO APRN Ot Z88 .8 ALLERGY STATUS TO OTH DRUG/MEDS/BIOL SUB 04/22/2018 JUAN C FRANCISCO APRN Ot Z90.710 ACQUIRED ABSENCE OF BOTH CERVIX AND UTER 08/16/2018 STEFFEN VALDERRAMA Ot F32.9 MAJOR DEPRESSIVE DISORDER, SINGLE EPISOD 08/16/2018 STEFFEN VALDERRAMA Ot F41.9 ANXIETY DISORDER, UNSPECIFIED 08/16/2018 STEFFEN VALDERRAMA Ot J43.9 EMPHYSEMA, UNSPECIFIED 08/16/2018 STEFFEN VALDERRAMA Ot J45.909 UNSPECIFIED ASTHMA, UNCOMPLICATED 08/16/2018 STEFFEN VALDERRAMA Ot K21.9 GASTRO-ESOPHAGEAL REFLUX DISEASE WITHOUT 08/16/2018 STEFFEN VALDERRAMA Ot K59.00 CONSTIPATION, UNSPECIFIED 08/16/2018 STEFFEN VALDERRAMA Ot K86.1 OTHER CHRONIC PANCREATITIS 08/16/2018 STEFFEN VALDERRAMA Ot M81.0 AGE-RELATED OSTEOPOROSIS W/O CURRENT PAT 08/16/2018 STEFFEN VALDERRAAM Ot R10.32 LEFT LOWER QUADRANT PAIN 08/16/2018 STEFFEN VALDERRAMA Ot Z79.51 HAT CLEANER (CURRENT) USE OF 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 08/16/2018 STEFFEN VALDERRAMA Ot Z86.73 PRSNL HX OF TIA (TIA), AND CEREB INFRC W 08/16/2018 STEFFEN VALDERRAMA Ot Z87.440 PERSONAL HISTORY OF URINARY (TRACT) INFE 08/16/2018 STEFFEN VALDERRAMA Ot Z88.1 ALLERGY STATUS TO OTHER ANTIBIOTIC AGENT 08/16/2018 STEFFEN VALDERRAMA Ot Z88.5 ALLERGY STATUS TO NARCOTIC AGENT STATUS 08/16/2018 STEFFEN VALDERRAMA Ot Z88.6 ALLERGY STATUS TO ANALGESIC AGENT STATUS 08/16/2018 STEFFEN VALDERRAMA Ot Z90.710 ACQUIRED ABSENCE OF BOTH CERVIX AND UTER 08/20/2018 STEFFEN VALDERRAMA Ot F32.9 MAJOR DEPRESSIVE DISORDER, SINGLE EPISOD 08/20/2018 STEFFEN VALDERRAMA Ot F41.9 ANXIETY DISORDER, UNSPECIFIED 08/20/2018 STEFFEN VALDERRAMA Ot J43.9 EMPHYSEMA, UNSPECIFIED 08/20/2018 STEFFEN VALDERRAMA Ot J45.909 UNSPECIFIED ASTHMA, UNCOMPLICATED 08/20/2018 STEFFEN VALDERRAMA Ot K21.9 GASTRO-ESOPHAGEAL REFLUX DISEASE WITHOUT 08/20/2018 STEFFEN VALDERRAMA Ot K59.00 CONSTIPATION, UNSPECIFIED 08/20/2018 STEFFEN VALDERRAMA Ot K86.1 OTHER CHRONIC PANCREATITIS 08/20/2018 STEFFEN VALDERRAMA Ot M81.0 AGE-RELATED OSTEOPOROSIS W/O CURRENT PAT 08/20/2018 STEFFEN VALDERRAMA Ot R10.32 LEFT LOWER QUADRANT PAIN 08/20/2018 STEFFEN VALDERRAMA Ot Z79.51 DETENTION (CURRENT) USE OF 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 08/20/2018 STEFFEN VALDERRAMA Ot Z86.73 PRSNL HX OF TIA (TIA), AND CEREB INFRC W 08/20/2018 STEFFEN VALDERRAMA Ot Z87.440 PERSONAL HISTORY OF URINARY (TRACT) INFE 08/20/2018 STEFFEN VALDERRAMA Ot Z88.1 ALLERGY STATUS TO OTHER ANTIBIOTIC AGENT 08/20/2018 STEFFEN VALDERRAMA Ot Z88.5 ALLERGY STATUS TO NARCOTIC AGENT STATUS 08/20/2018 STEFFEN VALDERRAMA Ot Z88.6 ALLERGY STATUS TO ANALGESIC AGENT STATUS 08/20/2018 STEFFEN VALDERRAMA Ot Z90.710 ACQUIRED ABSENCE OF BOTH CERVIX AND UTER 09/04/2018 RAUDEL LEIA REES Ot F17.210 NICOTINE DEPENDENCE, CIGARETTES, UNCOMPL 09/04/2018 RAUDEL TRINA REESA Amanda Ot F19.10 OTHER PSYCHOACTIVE SUBSTANCE ABUSE, UNCO 09/04/2018 LEIA STARKS DO Ot F32.9 MAJOR DEPRESSIVE DISORDER, SINGLE EPISOD 09/04/2018 RAUDEL LIEA REES Ot F41.9 ANXIETY DISORDER, UNSPECIFIED 09/04/2018 RAUDEL TRINA REESA K Ot H00.014 HORDEOLUM EXTERNUM LEFT UPPER EYELID 09/04/2018 RAUDEL TRINA REESA Amanda Ot H57.12 OCULAR PAIN, LEFT EYE 09/04/2018 RAUDEL LEIA REES Ot J43.9 EMPHYSEMA, UNSPECIFIED 09/04/2018 RAUDEL TRINA REESA K Ot K21.9 GASTRO-ESOPHAGEAL REFLUX DISEASE WITHOUT 09/04/2018 TRINA STARKS DOA Amanda Ot M81.0 AGE- RELATED OSTEOPOROSIS W/O CURRENT PAT 09/04/2018 TRINA STARKS DOA Amanda Ot Z79.51 HAT CLEANER (CURRENT) USE OF 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 09/04/2018 TRINA STARKS DOA Amanda Ot Z82.49 FAMILY HX OF ISCHEM HEART DIS AND OTH DI 09/04/2018 LEIA STARKS DO Ot Z86.73 PRSNL HX OF TIA (TIA), AND CEREB INFRC W 09/04/2018 LEIA STARKS DO Ot Z87.19 PERSONAL HISTORY OF OTHER DISEASES OF TH 09/04/2018 LEIA STARKS DO Ot Z87.440 PERSONAL HISTORY OF URINARY (TRACT) INFE 09/04/2018 TRINA STARKS DOA K Ot Z88.0 ALLERGY STATUS TO PENICILLIN 09/04/2018 RAUDEL LEIA REES Ot Z88.4 ALLERGY STATUS TO ANESTHETIC AGENT STATU 09/04/2018 LEIA STARKS DO Ot Z88.6 ALLERGY STATUS TO ANALGESIC AGENT STATUS 09/04/2018 LEIA STARKS DO Ot Z88.8 ALLERGY STATUS TO OTH DRUG/MEDS/BIOL SUB 09/04/2018 LEIA STARKS DO Ot Z90.710 ACQUIRED ABSENCE OF BOTH CERVIX AND UTER 09/04/2018 LEIA STARKS DO Ot Z98.890 OTHER SPECIFIED POSTPROCEDURAL STATES 10/07/2018 LASHAY CONDE MD Ot E87 .2 ACIDOSIS 10/07/2018 LASHAY CONDE MD Ot F17.210 NICOTINE DEPENDENCE, CIGARETTES, UNCOMPL 10/07/2018 LASHAY CONDE MD Ot F32 .9 MAJOR DEPRESSIVE DISORDER, SINGLE EPISOD 10/07/2018 LASHAY CONDE MD Ot F41 .9 ANXIETY DISORDER, UNSPECIFIED 10/07/2018 LASHAY CONDE MD Ot G89 .4 CHRONIC PAIN SYNDROME 10/07/2018 LASHAY CONDE MD Ot I73 .9 PERIPHERAL VASCULAR DISEASE, UNSPECIFIED 10/07/2018 LASHAY CONDE MD Ot J43 .9 EMPHYSEMA, UNSPECIFIED 10/07/2018 LASHAY CONDE MD Ot K21 .9 GASTRO-ESOPHAGEAL REFLUX DISEASE WITHOUT 10/07/2018 LASHAY CONDE MD Ot K86 .1 OTHER CHRONIC PANCREATITIS 10/07/2018 LASHAY CONDE MD Ot R09.02 HYPOXEMIA 10/07/2018 LASHAY CONDE MD Ot Z86.73 PRSNL HX OF TIA (TIA), AND CEREB INFRC W 10/07/2018 LASHAY CONDE MD Ot Z88 .0 ALLERGY STATUS TO PENICILLIN 10/07/2018 LASHAY CONDE MD Ot Z88 .1 ALLERGY STATUS TO OTHER ANTIBIOTIC AGENT 10/07/2018 LASHAY CONDE MD Ot Z99.81 DEPENDENCE ON SUPPLEMENTAL OXYGEN 01/20/2019 HAILY STEWART Ot F10.10 ALCOHOL ABUSE, UNCOMPLICATED 01/20/2019 HAILY STEWART Ot F17.210 NICOTINE DEPENDENCE, CIGARETTES, UNCOMPL 01/20/2019 HAILY STEWART Ot F17.290 NICOTINE DEPENDENCE, OTHER TOBACCO PRODU 01/20/2019 HAILY STEWART Ot F32.9 MAJOR DEPRESSIVE DISORDER, SINGLE EPISOD 01/20/2019 HAILY STEWART Ot F41.9 ANXIETY DISORDER, UNSPECIFIED 01/20/2019 HAILY STEWART Ot G43.909 MIGRAINE, UNSP, NOT INTRACTABLE, WITHOUT 01/20/2019 HAILY STEWART Ot I12.9 HYPERTENSIVE CHRONIC KIDNEY DISEASE W ST 01/20/2019 HAILY STEWART Ot J43.9 EMPHYSEMA, UNSPECIFIED 01/20/2019 HAILY STEWART Ot K21.9 GASTRO-ESOPHAGEAL REFLUX DISEASE WITHOUT 01/20/2019 HAILY STEWART Ot M79.641 PAIN IN RIGHT HAND 01/20/2019 HAILY STEWART Ot M81.0 AGE- RELATED OSTEOPOROSIS W/O CURRENT PAT 01/20/2019 HAILY STEWART Ot N18.9 CHRONIC KIDNEY DISEASE, UNSPECIFIED 01/20/2019 HAILY STEWART Ot S60.221A CONTUSION OF RIGHT HAND, INITIAL ENCOUNT 01/20/2019 HAILY STEWART Ot W20.8XXA OTH CAUSE OF STRIKE BY THROWN, PROJECTED 01/20/2019 HAILY STEWART Ot Z79.51 HAT CLEANER (CURRENT) USE OF 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 01/20/2019 HAILY STEWART Ot Z79.52 HAT CLEANER (CURRENT) USE OF SYSTEMIC STER 01/20/2019 HAILY STEWART Ot Z82.49 FAMILY HX OF ISCHEM HEART DIS AND OTH DI 01/20/2019 HAILY STEWART Ot Z86.73 PRSNL HX OF TIA (TIA), AND CEREB INFRC W 01/20/2019 HAILY STEWART Ot Z87.01 PERSONAL HISTORY OF PNEUMONIA (RECURRENT 01/20/2019 HAILY STEWART Ot Z87.19 PERSONAL HISTORY OF OTHER DISEASES OF TH 01/20/2019 HAILY STEWART Ot Z87.440 PERSONAL HISTORY OF URINARY (TRACT) INFE 01/20/2019 HAILY STEWART Ot Z88.0 ALLERGY STATUS TO PENICILLIN 01/20/2019 HAILY STEWART Ot Z88.1 ALLERGY STATUS TO OTHER ANTIBIOTIC AGENT 01/20/2019 HAILY STEWART Ot Z88.4 ALLERGY STATUS TO ANESTHETIC AGENT STATU 01/20/2019 HAILY STEWART Ot Z88.6 ALLERGY STATUS TO ANALGESIC AGENT STATUS 01/20/2019 HAILY STEWRAT Ot Z88.8 ALLERGY STATUS TO OTH DRUG/MEDS/BIOL SUB 01/20/2019 HAILY STEWART Ot Z90.710 ACQUIRED ABSENCE OF BOTH CERVIX AND UTER 01/20/2019 HAILY STEWART Ot Z91.5 PERSONAL HISTORY OF SELF-HARM 01/20/2019 HAILY STEWART Ot Z98.890 OTHER SPECIFIED POSTPROCEDURAL STATES 01/23/2019 HAILY STEWART Ot F10.10 ALCOHOL ABUSE, UNCOMPLICATED 01/23/2019 HAILY STEWART Ot F17.210 NICOTINE DEPENDENCE, CIGARETTES, UNCOMPL 01/23/2019 HAILY STEWART Ot F17.290 NICOTINE DEPENDENCE, OTHER TOBACCO PRODU 01/23/2019 HAILY STEWART Ot F32.9 MAJOR DEPRESSIVE DISORDER, SINGLE EPISOD 01/23/2019 HAILY STEWART Ot F41.9 ANXIETY DISORDER, UNSPECIFIED 01/23/2019 HAILY STEWART Ot G43.909 MIGRAINE, UNSP, NOT INTRACTABLE, WITHOUT 01/23/2019 HAILY STEWART Ot I12.9 HYPERTENSIVE CHRONIC KIDNEY DISEASE W ST 01/23/2019 HAILY STEWART Ot J43.9 EMPHYSEMA, UNSPECIFIED 01/23/2019 HAILY STEWART Ot K21.9 GASTRO-ESOPHAGEAL REFLUX DISEASE WITHOUT 01/23/2019 HAILY STEWART Ot M79.641 PAIN IN RIGHT HAND 01/23/2019 HAILY STEWART Ot M81.0 AGE- RELATED OSTEOPOROSIS W/O CURRENT PAT 01/23/2019 HAILY STEWART Ot N18.9 CHRONIC KIDNEY DISEASE, UNSPECIFIED 01/23/2019 HAILY STEWART Ot S60.221A CONTUSION OF RIGHT HAND, INITIAL ENCOUNT 01/23/2019 HAILY STEWART Ot W20.8XXA OTH CAUSE OF STRIKE BY THROWN, PROJECTED 01/23/2019 HAILY STEWART Ot Z79.51 HAT CLEANER (CURRENT) USE OF 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 01/23/2019 FARA STEWARTIS Ot Z79.52 DETENTION (CURRENT) USE OF SYSTEMIC STER 01/23/2019 FARA STEWARTIS Ot Z82.49 FAMILY HX OF ISCHEM HEART DIS AND OTH DI 01/23/2019 HAILY STEWART Ot Z86.73 PRSNL HX OF TIA (TIA), AND CEREB INFRC W 01/23/2019 HAILY STEWART Ot Z87.01 PERSONAL HISTORY OF PNEUMONIA (RECURRENT 01/23/2019 HAILY STEWART Ot Z87.19 PERSONAL HISTORY OF OTHER DISEASES OF TH 01/23/2019 FARA STEWARTIS Ot Z87.440 PERSONAL HISTORY OF URINARY (TRACT) INFE 01/23/2019 JEWELLKURT HAILY Ot Z88.0 ALLERGY STATUS TO PENICILLIN 01/23/2019 FARA STEWARTIS Ot Z88.1 ALLERGY STATUS TO OTHER ANTIBIOTIC AGENT 01/23/2019 HAILY STEWART Ot Z88.4 ALLERGY STATUS TO ANESTHETIC AGENT STATU 01/23/2019 HAILY STEWART Ot Z88.6 ALLERGY STATUS TO ANALGESIC AGENT STATUS 01/23/2019 FARA STEWARTIS Ot Z88.8 ALLERGY STATUS TO OTH DRUG/MEDS/BIOL SUB 01/23/2019 TERRYFARAIS Ot Z90.710 ACQUIRED ABSENCE OF BOTH CERVIX AND UTER 01/23/2019 HAILY STEWART Ot Z91.5 PERSONAL HISTORY OF SELF-HARM 01/23/2019 FARA STEWARTIS Ot Z98.890 OTHER SPECIFIED POSTPROCEDURAL STATES 02/05/2019 TALITA MESSER MD, Ot F17.2 10 NICOTINE DEPENDENCE, CIGARETTES, UNCOMPL 02/05/2019 TALITA MESSER MD, Ot F32.9 MAJOR DEPRESSIVE DISORDER, SINGLE EPISOD 02/05/2019 TALITA MESSER MD, Ot F41.9 ANXIETY DISORDER, UNSPECIFIED 02/05/2019 TALITA MESSER MD, Ot G43.9 09 MIGRAINE, UNSP, NOT INTRACTABLE, WITHOUT 02/05/2019 TALITA MESSER MD, Ot G89.2 9 OTHER CHRONIC PAIN 02/05/2019 TALITA MESSER MD, Ot I10 ESSENTIAL (PRIMARY) HYPERTENSION 02/05/2019 TALITA MESSER MD, Ot I73.9 PERIPHERAL VASCULAR DISEASE, UNSPECIFIED 02/05/2019 TALITA MESSER MD, Ot J43.9 EMPHYSEMA, UNSPECIFIED 02/05/2019 TALITA MESSER MD, Ot K21.9 GASTRO-ESOPHAGEAL REFLUX DISEASE WITHOUT 02/05/2019 TALITA MESSER MD, Ot M81.0 AGE-RELATED OSTEOPOROSIS W/O CURRENT PAT 02/05/2019 TALITA MESSER MD, Ot N28.9 DISORDER OF KIDNEY AND URETER, UNSPECIFI 02/05/2019 TALITA MESSER MD, Ot N39.0 URINARY TRACT INFECTION, SITE NOT SPECIF 02/05/2019 TALITA MESSER MD, Ot Z79.8 99 OTHER HAT CLEANER (CURRENT) DRUG THERAPY 02/05/2019 TALITA MESSER MD, Ot Z86.7 3 PRSNL HX OF TIA (TIA), AND CEREB INFRC W 02/05/2019 TALITA MESSER MD, Ot Z87.0 1 PERSONAL HISTORY OF PNEUMONIA (RECURRENT 02/05/2019 TALITA MESSER MD, Ot Z87.1 9 PERSONAL HISTORY OF OTHER DISEASES OF TH 02/05/2019 TALITA MESSER MD, Ot Z88.0 ALLERGY STATUS TO PENICILLIN 02/05/2019 TALITA MESSER MD, Ot Z88.1 ALLERGY STATUS TO OTHER ANTIBIOTIC AGENT 02/05/2019 TALITA MESSER MD, Ot Z99.8 1 DEPENDENCE ON SUPPLEMENTAL OXYGEN 02/05/2019 TALITA MESSER MD, Ot F17.2 10 NICOTINE DEPENDENCE, CIGARETTES, UNCOMPL 02/05/2019 TALITA MESSER MD, Ot F32.9 MAJOR DEPRESSIVE DISORDER, SINGLE EPISOD 02/05/2019 TALITA MESSER MD, Ot F41.9 ANXIETY DISORDER, UNSPECIFIED 02/05/2019 TALITA MESSER MD, Ot G43.9 09 MIGRAINE, UNSP, NOT INTRACTABLE, WITHOUT 02/05/2019 TALITA MESSER MD, Ot G89.2 9 OTHER CHRONIC PAIN 02/05/2019 TALITA MESSER MD, Ot I10 ESSENTIAL (PRIMARY) HYPERTENSION 02/05/2019 TALITA MESSER MD, Ot I73.9 PERIPHERAL VASCULAR DISEASE, UNSPECIFIED 02/05/2019 TALITA MESSER MD, Ot J43.9 EMPHYSEMA, UNSPECIFIED 02/05/2019 TALITA MESSER MD, Ot K21.9 GASTRO-ESOPHAGEAL REFLUX DISEASE WITHOUT 02/05/2019 TALITA MESSER MD, Ot M81.0 AGE-RELATED OSTEOPOROSIS W/O CURRENT PAT 02/05/2019 TALITA MESSER MD, Ot N28.9 DISORDER OF KIDNEY AND URETER, UNSPECIFI 02/05/2019 TALITA MESSER MD, Ot N39.0 URINARY TRACT INFECTION, SITE NOT SPECIF 02/05/2019 TALITA MESSER MD, Ot Z79.8 99 OTHER DETENTION (CURRENT) DRUG THERAPY 02/05/2019 TALITA MESSER MD, Ot Z86.7 3 PRSNL HX OF TIA (TIA), AND CEREB INFRC W 02/05/2019 TALITA MESSER MD Ot Z87.0 1 PERSONAL HISTORY OF PNEUMONIA (RECURRENT 02/05/2019 TALITA MESSER MD, Ot Z87.1 9 PERSONAL HISTORY OF OTHER DISEASES OF TH 02/05/2019 TALITA MESSER MD, Ot Z88.0 ALLERGY STATUS TO PENICILLIN 02/05/2019 TALITA MESSER MD, Ot Z88.1 ALLERGY STATUS TO OTHER ANTIBIOTIC AGENT 02/05/2019 TALITA MESSER MD, Ot Z99.8 1 DEPENDENCE ON SUPPLEMENTAL OXYGEN 02/10/2019 TALITA MESSER MD, Ot F17.2 10 NICOTINE DEPENDENCE, CIGARETTES, UNCOMPL 02/10/2019 TALITA MESSER MD, Ot F32.9 MAJOR DEPRESSIVE DISORDER, SINGLE EPISOD 02/10/2019 TALITA MESSER MD, Ot F41.9 ANXIETY DISORDER, UNSPECIFIED 02/10/2019 TALITA MESSER MD, Ot G43.9 09 MIGRAINE, UNSP, NOT INTRACTABLE, WITHOUT 02/10/2019 TALITA MESSER MD Ot G89.2 9 OTHER CHRONIC PAIN 02/10/2019 TALITA MESSER MD, Ot I10 ESSENTIAL (PRIMARY) HYPERTENSION 02/10/2019 TALITA MESSER MD, Ot I73.9 PERIPHERAL VASCULAR DISEASE, UNSPECIFIED 02/10/2019 TALITA MESSER MD, Ot J43.9 EMPHYSEMA, UNSPECIFIED 02/10/2019 TALITA MESSER MD, Ot K21.9 GASTRO-ESOPHAGEAL REFLUX DISEASE WITHOUT 02/10/2019 TALITA MESSER MD, Ot M81.0 AGE-RELATED OSTEOPOROSIS W/O CURRENT PAT 02/10/2019 TALITA MESSER MD, Ot N28.9 DISORDER OF KIDNEY AND URETER, UNSPECIFI 02/10/2019 TALITA MESSER MD, Ot N39.0 URINARY TRACT INFECTION, SITE NOT SPECIF 02/10/2019 TALITA MESSER MD, Ot Z79.8 99 OTHER DETENTION (CURRENT) DRUG THERAPY 02/10/2019 TALITA MESSER MD Ot Z86.7 3 PRSNL HX OF TIA (TIA), AND CEREB INFRC W 02/10/2019 TALITA MESSER MD Ot Z87.0 1 PERSONAL HISTORY OF PNEUMONIA (RECURRENT 02/10/2019 GAULT MD, TALITA R Ot Z87.1 9 PERSONAL HISTORY OF OTHER DISEASES OF TH 02/10/2019 TALITA MESSER MD Ot Z88.0 ALLERGY STATUS TO PENICILLIN 02/10/2019 TALITA MESSER MD Ot Z88.1 ALLERGY STATUS TO OTHER ANTIBIOTIC AGENT 02/10/2019 TALITA MESSER MD Ot Z99.8 1 DEPENDENCE ON SUPPLEMENTAL OXYGEN 03/07/2019 TALITA MESSER MD Ot E87.2 ACIDOSIS 03/07/2019 TALITA MESSER MD Ot F10.2 0 ALCOHOL DEPENDENCE, UNCOMPLICATED 03/07/2019 TALITA MESSER MD Ot F11.1 0 OPIOID ABUSE, UNCOMPLICATED 03/07/2019 TALITA MESSER MD Ot F12.9 0 CANNABIS USE, UNSPECIFIED, UNCOMPLICATED 03/07/2019 TALITA MESSER MD Ot F17.2 10 NICOTINE DEPENDENCE, CIGARETTES, UNCOMPL 03/07/2019 TALITA MESSER MD Ot F31.9 BIPOLAR DISORDER, UNSPECIFIED 03/07/2019 TALITA MESSER MD Ot G43.9 09 MIGRAINE, UNSP, NOT INTRACTABLE, WITHOUT 03/07/2019 TALITA MESSER MD Ot G89.2 9 OTHER CHRONIC PAIN 03/07/2019 TALITA MESSER MD Ot J43.9 EMPHYSEMA, UNSPECIFIED 03/07/2019 TALITA MESSER MD Ot J96.2 2 ACUTE AND CHRONIC RESPIRATORY FAILURE WI 03/07/2019 TALITA MESSER MD Ot M19.9 1 PRIMARY OSTEOARTHRITIS, UNSPECIFIED SITE 03/07/2019 TALITA MESSER MD Ot M81.0 AGE-RELATED OSTEOPOROSIS W/O CURRENT PAT 03/07/2019 TALITA MESSER MD Ot N17.9 ACUTE KIDNEY FAILURE, UNSPECIFIED 03/07/2019 TALITA MESSER MD Ot N18.2 CHRONIC KIDNEY DISEASE, STAGE 2 (MILD) 03/07/2019 TALITA MESSER MD Ot T40.2X1A POISONING BY OTH OPIOIDS, ACCIDENTAL (UN 03/07/2019 TALITA MESSER MD Ot Z79.8 99 OTHER HAT CLEANER (CURRENT) DRUG THERAPY 03/07/2019 TALITA MESSER MD Ot Z87.1 9 PERSONAL HISTORY OF OTHER DISEASES OF 03/07/2019 TALITA MESSER MD Ot Z87.4 40 PERSONAL HISTORY OF URINARY (TRACT) INFE 03/07/2019 TALITA MESSER MD Ot Z88.0 ALLERGY STATUS TO PENICILLIN 03/07/2019 TALITA MESSER MD, Ot Z88.1 ALLERGY STATUS TO OTHER ANTIBIOTIC AGENT 03/07/2019 TALITA MESSER MD Ot Z88.6 ALLERGY STATUS TO ANALGESIC AGENT STATUS 03/07/2019 TALITA MESSER MD Ot Z89.6 12 ACQUIRED ABSENCE OF LEFT LEG ABOVE KNEE 03/07/2019 TALITA MESSER MD Ot Z90.7 10 ACQUIRED ABSENCE OF BOTH CERVIX AND UTER 03/07/2019 TALITA MESSER MD, Ot Z90.7 9 ACQUIRED ABSENCE OF OTHER GENITAL ORGAN( 03/07/2019 TALITA MESSER MD, Ot Z91.1 9 PATIENT'S NONCOMPLIANCE W [facility] 03/07/2019 TALITA MESSER MD, Ot 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 08/27/2019 CLARISA, [employer] Ot F17.210 NICOTINE DEPENDENCE, CIGARETTES, UNCOMPL 08/27/2019 CLARISA, BRIAN [employer] Ot F32.9 MAJOR DEPRESSIVE DISORDER, SINGLE EPISOD 08/27/2019 CLARISA, [employer]AN [employer] Ot F41.9 ANXIETY DISORDER, UNSPECIFIED 08/27/2019 CLARISA, BRIAN [employer] Ot G43.909 MIGRAINE, UNSP, NOT INTRACTABLE, WITHOUT 08/27/2019 CLARISA, BRIAN [employer] Ot I10 ESSENTIAL (PRIMARY) HYPERTENSION 08/27/2019 CLARISA, BRIAN [employer] Ot J43.9 EMPHYSEMA, UNSPECIFIED 08/27/2019 CLARISA, BRIAN [employer] Ot K21.9 GASTRO-ESOPHAGEAL REFLUX DISEASE WITHOUT 08/27/2019 CLARISA, BRIAN [employer] Ot K85.90 ACUTE PANCREATITIS WITHOUT NECROSIS OR I 08/27/2019 CLARISA, BRIAN [employer] Ot R11.2 NAUSEA WITH VOMITING, UNSPECIFIED 08/27/2019 CLARISA, BRIAN [employer] Ot R19.7 DIARRHEA, UNSPECIFIED 08/27/2019 CLARISA, BRIAN [employer] Ot Z79.51 HAT CLEANER (CURRENT) USE OF 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 08/27/2019 CLARISA, BRIAN [employer] Ot Z82.49 FAMILY HX OF ISCHEM HEART DIS AND OTH DI 08/27/2019 CLARISA, BRIAN HOFFMANNP Ot Z86.73 PRSNL HX OF TIA (TIA), AND CEREB INFRC W 08/27/2019 CLARISA, BRIAN [employer] Ot Z87.19 PERSONAL HISTORY OF OTHER DISEASES OF TH 08/27/2019 CLARISA, BRIAN [employer] Ot Z87.440 PERSONAL HISTORY OF URINARY (TRACT) INFE 08/27/2019 CLARISA, BRIAN [employer] Ot Z88.0 ALLERGY STATUS TO PENICILLIN 08/27/2019 CLARISA, BRIAN [employer] Ot Z88.1 ALLERGY STATUS TO OTHER ANTIBIOTIC AGENT 08/27/2019 CLARISA, BRIAN [employer] Ot Z88.5 ALLERGY STATUS TO NARCOTIC AGENT STATUS 08/27/2019 CLARISA, BRIAN [employer] Ot Z88.6 ALLERGY STATUS TO ANALGESIC AGENT STATUS 08/27/2019 CLARISA, BRIAN [employer] Ot Z88.8 ALLERGY STATUS TO OTH DRUG/MEDS/BIOL SUB 08/27/2019 CLARISA, BRIAN [employer] Ot Z90.710 ACQUIRED ABSENCE OF BOTH CERVIX AND UTER 08/27/2019 CLARISA, BRIAN SUPER[employer] Ot Z99.81 DEPENDENCE ON SUPPLEMENTAL OXYGEN 09/01/2019 CLARISA, BRIAN [employer] Ot F17.210 NICOTINE DEPENDENCE, CIGARETTES, UNCOMPL 09/01/2019 CLARISA, BRIAN [employer] Ot F32.9 MAJOR DEPRESSIVE DISORDER, SINGLE EPISOD 09/01/2019 CLARISA, BRIAN [employer] Ot F41.9 ANXIETY DISORDER, UNSPECIFIED 09/01/2019 CLARISA, BRIAN [employer] Ot G43.909 MIGRAINE, UNSP, NOT INTRACTABLE, WITHOUT 09/01/2019 CLARISA, BRIAN [employer] Ot I10 ESSENTIAL (PRIMARY) HYPERTENSION 09/01/2019 CLARISA, BRIAN SUPER[employer] Ot J43.9 EMPHYSEMA, UNSPECIFIED 09/01/2019 CLARISA, BRIAN SUPER[employer] Ot K21.9 GASTRO-ESOPHAGEAL REFLUX DISEASE WITHOUT 09/01/2019 CLARISA, BRIAN SUPER[employer] Ot K85.90 ACUTE PANCREATITIS WITHOUT NECROSIS OR I 09/01/2019 CLARISA, BRIAN SUPER[employer] Ot R11.2 NAUSEA WITH VOMITING, UNSPECIFIED 09/01/2019 CLARISA, BRIAN SUPER[employer] Ot R19.7 DIARRHEA, UNSPECIFIED 09/01/2019 CLARISA, BRIAN [employer] Ot Z79.51 HAT CLEANER (CURRENT) USE OF 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 09/01/2019 CLARISA, BRIAN SUPER[employer] Ot Z82.49 FAMILY HX OF ISCHEM HEART DIS AND OTH DI 09/01/2019 CLARISA, BRIAN SUPER[employer] Ot Z86.73 PRSNL HX OF TIA (TIA), AND CEREB INFRC W 09/01/2019 CLARISA, BRIAN SUPER[employer] Ot Z87.19 PERSONAL HISTORY OF OTHER DISEASES OF TH 09/01/2019 CLARISA, BRIAN SUPER[employer] Ot Z87.440 PERSONAL HISTORY OF URINARY (TRACT) INFE 09/01/2019 CLARISA, BRIAN SUPERVIS[employer] Ot Z88.0 ALLERGY STATUS TO PENICILLIN 09/01/2019 CLARISA, BRIAN SUPER[employer] Ot Z88.1 ALLERGY STATUS TO OTHER ANTIBIOTIC AGENT 09/01/2019 CLARISA, BRIAN SUPER[employer] Ot Z88.5 ALLERGY STATUS TO NARCOTIC AGENT STATUS 09/01/2019 CLARISA, BRIAN SUPER[employer] Ot Z88.6 ALLERGY STATUS TO ANALGESIC AGENT STATUS 09/01/2019 CLARISA, BRIAN SUPER[employer] Ot Z88.8 ALLERGY STATUS TO OTH DRUG/MEDS/BIOL SUB 09/01/2019 CLARISA, BRIAN SUPER[employer] Ot Z90.710 ACQUIRED ABSENCE OF BOTH CERVIX AND UTER 09/01/2019 CLARISA, BRIAN SUPER[employer] Ot Z99.81 DEPENDENCE ON SUPPLEMENTAL OXYGEN 09/01/2019 CLARISA, BRIAN SUPERVIS[employer] Ot F17.210 NICOTINE DEPENDENCE, CIGARETTES, UNCOMPL 09/01/2019 CLARISA, BRIAN SUPER[employer] Ot F32.9 MAJOR DEPRESSIVE DISORDER, SINGLE EPISOD 09/01/2019 CLARISA, BRIAN SUPERVIS[employer] Ot F41.9 ANXIETY DISORDER, UNSPECIFIED 09/01/2019 CLARISA, BRIAN SUPERVISOR [employer] Ot G43.909 MIGRAINE, UNSP, NOT INTRACTABLE, WITHOUT 09/01/2019 CLARISA, BRIAN SUPERVISOR [employer] Ot I10 ESSENTIAL (PRIMARY) HYPERTENSION 09/01/2019 CLARISA, BRIAN SUPER[employer] Ot J43.9 EMPHYSEMA, UNSPECIFIED 09/01/2019 CLARISA, BRIAN SUPER[employer] Ot K21.9 GASTRO-ESOPHAGEAL REFLUX DISEASE WITHOUT 09/01/2019 CLARISA, BRIAN SUPER[employer] Ot K85.90 ACUTE PANCREATITIS WITHOUT NECROSIS OR I 09/01/2019 CLARISA, BRIAN SUPER[employer] Ot R11.2 NAUSEA WITH VOMITING, UNSPECIFIED 09/01/2019 CLARISA, BRIAN SUPER[employer] Ot R19.7 DIARRHEA, UNSPECIFIED 09/01/2019 CLARISA, BRIAN SUPER[employer] Ot Z79.51 DETENTION (CURRENT) USE OF 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 09/01/2019 CLARISA, BRIAN SUPER[employer] Ot Z82.49 FAMILY HX OF ISCHEM HEART DIS AND OTH DI 09/01/2019 CLARISA, BRIAN SUPER[employer] Ot Z86.73 PRSNL HX OF TIA (TIA), AND CEREB INFRC W 09/01/2019 CLARISA, BRIAN HOFFMANNP Ot Z87.19 PERSONAL HISTORY OF OTHER DISEASES OF TH 09/01/2019 CLARISA, BRIAN HOFFMANNP Ot Z87.440 PERSONAL HISTORY OF URINARY (TRACT) INFE 09/01/2019 CLARISA, BRIAN HOFFMANNP Ot Z88.0 ALLERGY STATUS TO PENICILLIN 09/01/2019 CLARISA, BRIAN HOFFMANNP Ot Z88.1 ALLERGY STATUS TO OTHER ANTIBIOTIC AGENT 09/01/2019 CLARISA, BRIAN HOFFMANNP Ot Z88.5 ALLERGY STATUS TO NARCOTIC AGENT STATUS 09/01/2019 CLARISA, BRIAN HOFFMANNP Ot Z88.6 ALLERGY STATUS TO ANALGESIC AGENT STATUS 09/01/2019 CLARISA, BRIAN HOFFMANNP Ot Z88.8 ALLERGY STATUS TO OTH DRUG/MEDS/BIOL SUB 09/01/2019 CLARISA, BRIAN HOFFMANNP Ot Z90.710 ACQUIRED ABSENCE OF BOTH CERVIX AND UTER 09/01/2019 CLARISA, BRIAN HOFFMANNP Ot Z99.81 DEPENDENCE ON SUPPLEMENTAL OXYGEN 09/02/2019 LASHAY CONDE MD Ot F10.20 ALCOHOL DEPENDENCE, UNCOMPLICATED 09/02/2019 LASHAY CONDE MD Ot F17.210 NICOTINE DEPENDENCE, CIGARETTES, UNCOMPL 09/02/2019 LASHAY CONDE MD Ot F31 .9 BIPOLAR DISORDER, UNSPECIFIED 09/02/2019 LASHAY CONDE MD Ot F41 .9 ANXIETY DISORDER, UNSPECIFIED 09/02/2019 LASHAY CONDE MD Ot G43.909 MIGRAINE, UNSP, NOT INTRACTABLE, WITHOUT 09/02/2019 LASHAY CONDE MD Ot 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 09/02/2019 LASHAY CONDE MD Ot G89.29 OTHER CHRONIC PAIN 09/02/2019 LASHAY CONDE MD Ot J18 .1 LOBAR PNEUMONIA, UNSPECIFIED ORGANISM 09/02/2019 LASHAY CONDE MD, Ot J18 .9 PNEUMONIA, UNSPECIFIED ORGANISM 09/02/2019 LASHAY CONDE MD, Ot J43 .9 EMPHYSEMA, UNSPECIFIED 09/02/2019 LASHAY CONDE MD Ot K21 .9 GASTRO-ESOPHAGEAL REFLUX DISEASE WITHOUT 09/02/2019 LASHAY CONDE MD Ot K86 .1 OTHER CHRONIC PANCREATITIS 09/02/2019 LASHAY CONDE MD Ot M19.91 PRIMARY OSTEOARTHRITIS, UNSPECIFIED SITE 09/02/2019 LASHAY CONDE MD, Ot M81 .0 AGE-RELATED OSTEOPOROSIS W/O CURRENT PAT 09/02/2019 LASHAY CONDE MD Ot R09.02 HYPOXEMIA 09/02/2019 LASHAY CONDE MD Ot R10.84 GENERALIZED ABDOMINAL PAIN 09/02/2019 LASHAY CONDE MD Ot R93.429 ABNORMAL RADIOLOGIC FINDINGS ON DX IMAGI 09/02/2019 LASHAY CONDE MD, Ot Z86.73 PRSNL HX OF TIA (TIA), AND CEREB INFRC W 09/02/2019 LASHAY CONDE MD, Ot Z88 .0 ALLERGY STATUS TO PENICILLIN 09/02/2019 LASHAY CONDE MD, Ot Z88 .1 ALLERGY STATUS TO OTHER ANTIBIOTIC AGENT 09/02/2019 LASHAY CONDE MD Ot 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 09/02/2019 LASHAY CONDE MD Ot Z96.652 PRESENCE OF LEFT ARTIFICIAL KNEE JOINT 09/02/2019 LASHAY CONDE MD Ot F10.20 ALCOHOL DEPENDENCE, UNCOMPLICATED 09/02/2019 LASHAY CONDE MD Ot F17.210 NICOTINE DEPENDENCE, CIGARETTES, UNCOMPL 09/02/2019 LASHAY CONDE MD Ot F31 .9 BIPOLAR DISORDER, UNSPECIFIED 09/02/2019 LSAHAY CONDE MD Ot F41 .9 ANXIETY DISORDER, UNSPECIFIED 09/02/2019 LASHAY CONDE MD Ot G43.909 MIGRAINE, UNSP, NOT INTRACTABLE, WITHOUT 09/02/2019 LASHAY CONDE MD Ot 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 09/02/2019 LASHAY CONDE MD Ot G89.29 OTHER CHRONIC PAIN 09/02/2019 LASHAY CONDE MD Ot J18 .1 LOBAR PNEUMONIA, UNSPECIFIED ORGANISM 09/02/2019 LASHAY CONDE MD Ot J43 .9 EMPHYSEMA, UNSPECIFIED 09/02/2019 LASHAY CONDE MD Ot K21 .9 GASTRO-ESOPHAGEAL REFLUX DISEASE WITHOUT 09/02/2019 LASHAY CONDE MD Ot K86 .1 OTHER CHRONIC PANCREATITIS 09/02/2019 LASHAY CONDE MD, Ot M19.91 PRIMARY OSTEOARTHRITIS, UNSPECIFIED SITE 09/02/2019 LASHAY CONDE MD, Ot M81 .0 AGE-RELATED OSTEOPOROSIS W/O CURRENT PAT 09/02/2019 LASHAY CONDE MD Ot R09.02 HYPOXEMIA 09/02/2019 LASHAY CONDE MD, Ot R10.84 GENERALIZED ABDOMINAL PAIN 09/02/2019 LASHAY CONDE MD Ot R93.429 ABNORMAL RADIOLOGIC FINDINGS ON DX IMAGI 09/02/2019 LASHAY CONDE MD, Ot Z86.73 PRSNL HX OF TIA (TIA), AND CEREB INFRC W 09/02/2019 LASHAY CONDE MD, Ot Z88 .0 ALLERGY STATUS TO PENICILLIN 09/02/2019 LASHAY CONDE MD, Ot Z88 .1 ALLERGY STATUS TO OTHER ANTIBIOTIC AGENT 09/02/2019 LASHAY CONDE MD, Ot 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 09/02/2019 LASHAY CONDE MD Ot Z96.652 PRESENCE OF LEFT ARTIFICIAL KNEE JOINT 09/11/2019 CHYNA REES VALENTINO B Ot D64.9 ANEMIA, UNSPECIFIED 09/11/2019 CHYNA REES, VALENTINO B Ot E87.5 HYPERKALEMIA 09/11/2019 CHYNA REES VALENTINO B Ot F12.9 0 CANNABIS USE, UNSPECIFIED, UNCOMPLICATED 09/11/2019 CHYNA REES VALENTINO B Ot F17.2 10 NICOTINE DEPENDENCE, CIGARETTES, UNCOMPL 09/11/2019 CHYNA REES VALENTINO B Ot F32.9 MAJOR DEPRESSIVE DISORDER, SINGLE EPISOD 09/11/2019 CHYNA REES VALENTINO B Ot F41.9 ANXIETY DISORDER, UNSPECIFIED 09/11/2019 CHYNA REES VALENTINO B Ot I12.9 HYPERTENSIVE CHRONIC KIDNEY DISEASE W ST 09/11/2019 CHYNA REES AVLENTINO B Ot J43.9 EMPHYSEMA, UNSPECIFIED 09/11/2019 CHYNA REES VALENTINO B Ot J96.0 0 ACUTE RESPIRATORY FAILURE, UNSP W HYPOXI 09/11/2019 CHYNA REES VALENTINO B Ot K21.9 GASTRO-ESOPHAGEAL REFLUX DISEASE WITHOUT 09/11/2019 CHYNA REES VALENTINO B Ot K44.9 DIAPHRAGMATIC HERNIA WITHOUT OBSTRUCTION 09/11/2019 CHYNA REES, VALENTINO B Ot K56.2 VOLVULUS 09/11/2019 CHYNA REES, VALENTINO B Ot M81.0 AGE-RELATED OSTEOPOROSIS W/O CURRENT PAT 09/11/2019 CHYNA REES, VALENTINO B Ot N17.9 ACUTE KIDNEY FAILURE, UNSPECIFIED 09/11/2019 CHYNA REES, VALENTINO B Ot N18.9 CHRONIC KIDNEY DISEASE, UNSPECIFIED 09/11/2019 CHYNA REES, VALENTINO B Ot Z86.7 3 PRSNL HX OF TIA (TIA), AND CEREB INFRC W 09/11/2019 CHYNA REES, VALENTINO B Ot Z87.0 1 PERSONAL HISTORY OF PNEUMONIA (RECURRENT 09/11/2019 CHYNA REES VALENTINO B Ot Z89.5 12 ACQUIRED ABSENCE OF LEFT LEG BELOW KNEE 09/11/2019 TETEBRITTANY REES VALENTINO B Ot Z89.6 12 ACQUIRED ABSENCE OF LEFT LEG ABOVE KNEE 09/11/2019 CHYNA REES, VALENTINO B Ot Z90.4 9 ACQUIRED ABSENCE OF OTHER SPECIFIED PART 09/11/2019 CHYNA REES VALENTINO B Ot Z90.7 10 ACQUIRED ABSENCE OF BOTH CERVIX AND UTER 09/11/2019 CHYNA REES, VALENTINO B Ot Z90.7 22 ACQUIRED ABSENCE OF OVARIES, BILATERAL 09/11/2019 CHYNA REES VALENTINO B Ot Z95.1 PRESENCE OF AORTOCORONARY BYPASS GRAFT 09/16/2019 TALITA MESSER MD Ot F17.2 10 NICOTINE DEPENDENCE, CIGARETTES, UNCOMPL 09/16/2019 TALITA MESSER MD Ot F32.9 MAJOR DEPRESSIVE DISORDER, SINGLE EPISOD 09/16/2019 TALITA MESSER MD Ot F41.9 ANXIETY DISORDER, UNSPECIFIED 09/16/2019 TALITA MESSER MD Ot G43.9 09 MIGRAINE, UNSP, NOT INTRACTABLE, WITHOUT 09/16/2019 TALITA MESSER MD Ot I10 ESSENTIAL (PRIMARY) HYPERTENSION 09/16/2019 TALITA MESSER MD Ot J18.9 PNEUMONIA, UNSPECIFIED ORGANISM 09/16/2019 TALITA MESSER MD, Ot J43.9 EMPHYSEMA, UNSPECIFIED 09/16/2019 TALITA MESSER MD Ot K59.0 9 OTHER CONSTIPATION 09/16/2019 TALITA MESSER MD Ot N39.0 URINARY TRACT INFECTION, SITE NOT SPECIF 09/16/2019 TALITA MESSER MD Ot R10.3 2 LEFT LOWER QUADRANT PAIN 09/16/2019 TALITA MESSER MD Ot Z79.8 91 HAT CLEANER (CURRENT) USE OF OPIATE ANALGE 09/16/2019 TALITA MESSER MD, Ot Z79.8 99 OTHER DETENTION (CURRENT) DRUG THERAPY 09/16/2019 TALITA MESSER MD, Ot Z82.4 9 FAMILY HX OF ISCHEM HEART DIS AND OTH DI 09/16/2019 TALITA MESSER MD, Ot Z83.3 FAMILY HISTORY OF DIABETES MELLITUS 09/16/2019 TALITA MESSER MD, Ot Z83.6 FAMILY HISTORY OF OTHER DISEASES OF THE 09/16/2019 TALITA MESSER MD, Ot Z86.7 3 PRSNL HX OF TIA (TIA), AND CEREB INFRC W 09/16/2019 TALITA MESSER MD, Ot Z88.0 ALLERGY STATUS TO PENICILLIN 09/16/2019 TALITA MESSER MD, Ot Z88.1 ALLERGY STATUS TO OTHER ANTIBIOTIC AGENT 09/16/2019 TALITA MESSER MD, Ot Z88.8 ALLERGY STATUS TO OT DRUG/MEDS/BIOL SUB 09/16/2019 TALITA MESSER MD, Ot Z89.5 12 ACQUIRED ABSENCE OF LEFT LEG BELOW KNEE 09/16/2019 TALITA MESSER MD, Ot Z90.4 9 ACQUIRED ABSENCE OF OTHER SPECIFIED PART 09/19/2019 TALITA MESSER MD, Ot F17.2 10 NICOTINE DEPENDENCE, CIGARETTES, UNCOMPL 09/19/2019 TALITA MESSER MD Ot F32.9 MAJOR DEPRESSIVE DISORDER, SINGLE EPISOD 09/19/2019 TALITA MESSER MD, Ot F41.9 ANXIETY DISORDER, UNSPECIFIED 09/19/2019 TALITA MESSER MD, Ot G43.9 09 MIGRAINE, UNSP, NOT INTRACTABLE, WITHOUT 09/19/2019 TALITA MESSER MD Ot I73.9 PERIPHERAL VASCULAR DISEASE, UNSPECIFIED 09/19/2019 TALITA MESSER MD, Ot J18.9 PNEUMONIA, UNSPECIFIED ORGANISM 09/19/2019 TALITA MESSER MD, Ot J44.9 CHRONIC OBSTRUCTIVE PULMONARY DISEASE, U 09/19/2019 TALITA MESSER MD, Ot M19.9 0 UNSPECIFIED OSTEOARTHRITIS, UNSPECIFIED 09/19/2019 TALITA MESSER MD Ot M81.0 AGE-RELATED OSTEOPOROSIS W/O CURRENT PAT 09/19/2019 TALITA MESSER MD Ot Z82.4 9 FAMILY HX OF ISCHEM HEART DIS AND OTH DI 09/19/2019 TALITA MESSER MD Ot Z83.3 FAMILY HISTORY OF DIABETES MELLITUS 09/19/2019 TALITA MESSER MD Ot Z83.6 FAMILY HISTORY OF OTHER DISEASES OF THE 09/19/2019 TALITA MESSER MD Ot Z88.0 ALLERGY STATUS TO PENICILLIN 09/19/2019 TALITA MESSER MD Ot Z88.1 ALLERGY STATUS TO OTHER ANTIBIOTIC AGENT 09/19/2019 TALITA MESSER MD Ot Z88.5 ALLERGY STATUS TO NARCOTIC AGENT STATUS 09/19/2019 TALITA MESSER MD Ot Z88.8 ALLERGY STATUS TO OT DRUG/MEDS/BIOL SUB 09/19/2019 TALITA MESSER MD Ot Z90.4 9 ACQUIRED ABSENCE OF OTHER SPECIFIED PART 09/19/2019 TALITA MESSER MD Ot F17.2 10 NICOTINE DEPENDENCE, CIGARETTES, UNCOMPL 09/19/2019 TALITA MESSER MD Ot F32.9 MAJOR DEPRESSIVE DISORDER, SINGLE EPISOD 09/19/2019 TALITA MESSER MD Ot F41.9 ANXIETY DISORDER, UNSPECIFIED 09/19/2019 TALITA MESSER MD Ot G43.9 09 MIGRAINE, UNSP, NOT INTRACTABLE, WITHOUT 09/19/2019 TALITA MESSER MD Ot I73.9 PERIPHERAL VASCULAR DISEASE, UNSPECIFIED 09/19/2019 TALITA MESSER MD Ot J18.9 PNEUMONIA, UNSPECIFIED ORGANISM 09/19/2019 TALITA MESSER MD Ot J44.9 CHRONIC OBSTRUCTIVE PULMONARY DISEASE, U 09/19/2019 TALITA MESSER MD Ot M19.9 0 UNSPECIFIED OSTEOARTHRITIS, UNSPECIFIED 09/19/2019 TALITA MESSER MD Ot M81.0 AGE-RELATED OSTEOPOROSIS W/O CURRENT PAT 09/19/2019 TALITA MESSER MD Ot Z82.4 9 FAMILY HX OF ISCHEM HEART DIS AND OTH DI 09/19/2019 TALITA MESSER MD Ot Z83.3 FAMILY HISTORY OF DIABETES MELLITUS 09/19/2019 TALITA MESSER MD Ot Z83.6 FAMILY HISTORY OF OTHER DISEASES OF THE 09/19/2019 TALITA MESSER MD, Ot Z88.0 ALLERGY STATUS TO PENICILLIN 09/19/2019 TALITA MESSER MD, Ot Z88.1 ALLERGY STATUS TO OTHER ANTIBIOTIC AGENT 09/19/2019 TALITA MESSER MD, Ot Z88.5 ALLERGY STATUS TO NARCOTIC AGENT STATUS 09/19/2019 TALITA MESSER MD, Ot Z88.8 ALLERGY STATUS TO OTH DRUG/MEDS/BIOL SUB 09/19/2019 TALITA MESSER MD, Ot Z90.4 9 ACQUIRED ABSENCE OF OTHER SPECIFIED PART 10/30/2019 NERI DO, ELVIS Ot D64.9 ANEMIA, UNSPECIFIED 10/30/2019 NERI DO, ELVIS Ot F17.21 0 NICOTINE DEPENDENCE, CIGARETTES, UNCOMPL 10/30/2019 NERI DO ELVIS Ot F32.9 MAJOR DEPRESSIVE DISORDER, SINGLE EPISOD 10/30/2019 DARON DO ELVIS Ot F41.9 ANXIETY DISORDER, UNSPECIFIED 10/30/2019 DARON DO ELVIS Ot G43.90 9 MIGRAINE, UNSP, NOT INTRACTABLE, WITHOUT 10/30/2019 NERI DO, ELVIS Ot I12.9 HYPERTENSIVE CHRONIC KIDNEY DISEASE W ST 10/30/2019 DARON DO, ELVIS Ot J18.9 PNEUMONIA, UNSPECIFIED ORGANISM 10/30/2019 DARON DO ELVIS Ot J44.1 CHRONIC OBSTRUCTIVE PULMONARY DISEASE W 10/30/2019 NERI DO ELVIS Ot J96.20 ACUTE AND CHR RESP FAILURE, UNSP W HYPOX 10/30/2019 DARON DO ELVIS Ot K59.09 OTHER CONSTIPATION 10/30/2019 NERI DO ELVIS Ot M81.0 AGE-RELATED OSTEOPOROSIS W/O CURRENT PAT 10/30/2019 NERI DO, ELVIS Ot N18.9 CHRONIC KIDNEY DISEASE, UNSPECIFIED 10/30/2019 NERI DO, ELVIS Ot R07.9 CHEST PAIN, UNSPECIFIED 10/30/2019 NERI DO ELVIS Ot R25.1 TREMOR, UNSPECIFIED 10/30/2019 NERI DO ELVIS Ot Z86.73 PRSNL HX OF TIA (TIA), AND CEREB INFRC W 10/30/2019 NERI DO ELVIS Ot Z87.19 PERSONAL HISTORY OF OTHER DISEASES OF TH 10/30/2019 VIRA NERI DOI Ot Z89.61 2 ACQUIRED ABSENCE OF LEFT LEG ABOVE KNEE 10/30/2019 VIRA NERI DOI Ot Z90.49 ACQUIRED ABSENCE OF OTHER SPECIFIED PART 10/30/2019 VIRA NERI DOI Ot Z91.19 PATIENT'S NONCOMPLIANCE W OT MEDICAL TR 10/30/2019 ELVIS NERI DO Ot Z91.5 PERSONAL HISTORY OF SELF-HARM 10/30/2019 VIRA NERI DOI Ot Z99.81 DEPENDENCE ON SUPPLEMENTAL OXYGEN Procedures Code Description Performed By Per formed On 96.04 05/18/2011 96.71 05/18/2011 12706 ROUT INE VENIPUNCTURE 02/11/2014 47292 [employer] 02/11/2014 59188 CBC 02/11/2014 43809 CMP 02/11/2014 [id number] GF R CALC (RESULT ONLY) 02/11/2014 64837 TSH 02/11/2014 13239 ROUT INE VENIPUNCTURE 06/04/2014 43812 BMP 06/04/2014 57630 ROUT INE VENIPUNCTURE 08/30/2014 96981 URIN E DRUG SCREEN (IN-HOUSE) 08/30/2014 34498 [facility] 08/30/2014 65218 NO CHARGE 09/10/2014 [id number] RE SECTION OF RIGHT LARGE INTESTINE, OPEN 09/09/2019 Results Test Result Range Complete blood count (CBC) with automate d white blood cell (WBC) differential - 07/15/16 05:28 Blood leukocytes automated count (number/volume) 9.0 10*3/uL 4.3-11.0 Blood erythrocytes automated count (number/volume) 4.75 10*6/uL 4.35-5.85 Venous blood hemoglobin measurement (mass/volume) 17.0 g/dL 11.5-16.0 Blood hematocrit (volume fraction) 51 % 35-52 Automated erythrocyte mean corpuscular volume 107 [foz_us] 80-99 Automated erythrocyte mean corpuscular h emoglobin (mass per erythrocyte) 36 pg 25-34 Automated erythrocyte mean corpuscular h emoglobin concentration measurement (mass/volume) 34 g/dL 32-36 Automated erythrocyte distribution width ratio 17. 5 % 10.0- 14.5 Automated blood platelet count (count/volume) 264 10*3/uL [...] 10*3 1.0-4.0 Blood monocytes automated count (number/volume) 1. 2 10*3 0.0-1.0 Automated eosinophil count 0.1 10*3/uL 0 .0-0.3 Automated blood basophil count (count/volume) 0.1 10*3/uL 0.0-0.1 Comprehensive metabolic panel - 07/15/16 05:28 Serum or plasma sodium measurement (moles/volume) 140 mmol/L 135-145 Serum or plasma potassium measurement (moles/volume) 4.4 mmol/L 3.6-5.0 Serum or plasma chloride measurement (moles/volume) 114 mmol/L 98-107 Carbon dioxide 13 mmol/L 21-32 Serum or plasma anion gap determination (moles/volume) 13 mmol/L 5-14 Serum or plasma urea nitrogen measurement (mass/volume ) 19 mg/dL 7-18 Serum or plasma creatinine measurement (mass/volume) 1.18 mg/dL 0.60-1.30 Serum or plasma urea nitrogen/creatinine mass ratio 16 NRG Serum or plasma creatinine measurement w ith calculation of estimated glomerular filtration rate 49 NRG Serum or plasma glucose measurement (mass/volume) 111 mg/dL 70-105 Serum or plasma calcium measurement (mass/volume) 10.5 mg/dL 8.5-10.1 Serum or plasma total bilirubin measurement (mass/volu me) 0.3 mg/dL 0.1-1.0 Serum or plasma alkaline phosphatase rosetta surement (enzymatic activity/volume) 85 U/L 40-136 Serum or plasma aspartate aminotransfera se measurement (enzymatic activity/volume) 12 U/L 5-34 Serum or plasma alanine aminotransferase measurement (enzymatic activity/volume) 7 U/L 0-55 Serum or plasma protein measurement (mass/volume) 7.5 g/dL 6.4-8.2 Serum or plasma albumin measurement (mass/volume) 4.5 g/dL 3.2-4.5 Lipase - 07/15/16 05:28 Lipase 91 U/L 8-78 Complete blood count (CBC) with automate d white blood cell (WBC) differential - 08/10/16 00:15 Blood leukocytes automated count (number/volume) 17.3 10*3/uL 4.3-11.0 Blood erythrocytes automated count (number/volume) 3.87 10*6/uL 4.35-5.85 Venous blood hemoglobin measurement (mass/volume) 14.1 g/dL 11.5-16.0 Blood hematocrit (volume fraction) 41 % 35-52 Automated erythrocyte mean corpuscular volume 107 [foz_us] 80-99 Automated erythrocyte mean corpuscular h emoglobin (mass per erythrocyte) 36 pg 25-34 Automated erythrocyte mean corpuscular h emoglobin concentration measurement (mass/volume) 34 g/dL 32-36 Automated erythrocyte distribution width ratio 16. 3 % 10.0- 14.5 Automated blood platelet count (count/volume) 372 10*3/uL [...] 10*3 1.0-4.0 Blood monocytes automated count (number/volume) 1. 9 10*3 0.0-1.0 Automated eosinophil count 0.1 10*3/uL 0 .0-0.3 Automated blood basophil count (count/volume) 0.0 10*3/uL 0.0-0.1 Comprehensive metabolic panel - 08/10/16 00:15 Serum or plasma sodium measurement (moles/volume) 140 mmol/L 135-145 Serum or plasma potassium measurement (moles/volume) 4.3 mmol/L 3.6-5.0 Serum or plasma chloride measurement (moles/volume) 109 mmol/L 98-107 Carbon dioxide 16 mmol/L 21-32 Serum or plasma anion gap determination (moles/volume) 15 mmol/L 5-14 Serum or plasma urea nitrogen measurement (mass/volume ) 34 mg/dL 7-18 Serum or plasma creatinine measurement (mass/volume) 1.18 mg/dL 0.60-1.30 Serum or plasma urea nitrogen/creatinine mass ratio 29 NRG Serum or plasma creatinine measurement w ith calculation of estimated glomerular filtration rate 49 NRG Serum or plasma glucose measurement (mass/volume) 108 mg/dL 70-105 Serum or plasma calcium measurement (mass/volume) 9.2 mg/dL 8.5-10.1 Serum or plasma total bilirubin measurement (mass/volu me) 0.4 mg/dL 0.1-1.0 Serum or plasma alkaline phosphatase rosetta surement (enzymatic activity/volume) 84 U/L 40-136 Serum or plasma aspartate aminotransfera se measurement (enzymatic activity/volume) 23 U/L 5-34 Serum or plasma alanine aminotransferase measurement (enzymatic activity/volume) 18 U/L 0-55 Serum or plasma protein measurement (mass/volume) 6.4 g/dL 6.4-8.2 Serum or plasma albumin measurement (mass/volume) 3.3 g/dL 3.2-4.5 Lipase - 08/10/16 00:15 Lipase 180 U/L 8-78 Blood manual differential performed dete ction - 08/10/16 00:15 Blood monocytes/100 leukocytes 7 % NRG Manual blood segmented neutrophils/100 leukocytes 81 % NRG Blood band neutrophils/100 leukocytes 6 % NRG Manual blood lymphocytes/100 leukocytes 6 % NRG Blood erythrocyte morphology finding identification NORMAL NRG Serum or plasma amylase measurement (enz ymatic activity/volume) - 08/10/16 00:15 Serum or plasma amylase measurement (enzymatic activit y/volume) 121 U/L 25-125 Blood lactic acid measurement (moles/vol ume) - 08/10/16 02:00 Blood lactic acid measurement (moles/volume) 1.0 m mol/L 0.5- 2.0 Bacterial blood culture - 08/10/16 02:00 QUANTITY OF GROWTH Isolated NRG Bacterial blood culture [id number] NRG Complete urinalysis with reflex to cultu re - 08/10/16 02:05 Urine color determination YELLOW NRG Urine clarity determination CLEAR NR G Urine pH measurement by test strip 5 5-9 Specific gravity of urine by test strip 1.015 1.016-1.022 Urine protein assay by test strip, semi-quantitative 2+ NEGATIVE Urine glucose detection by automated test strip NE GATIVE NEGATIVE Erythrocytes detection in urine sediment by light micr oscopy NEGATIVE NEGATIVE Urine ketones detection by automated test strip NE GATIVE NEGATIVE Urine nitrite detection by test strip NEGATIVE NEGATIVE Urine total bilirubin detection by test strip NEGA TIVE NEGATIVE Urine urobilinogen measurement by automated test strip (mass/volume) NORMAL NORMAL Urine leukocyte esterase detection by dipstick NEG ATIVE NEGATIVE Automated urine sediment erythrocyte cou nt by microscopy (number/high power field) NONE NRG Automated urine sediment leukocyte count by microscopy (number/high power field) NONE NRG Bacteria detection in urine sediment by light microsco py NEGATIVE NRG Squamous epithelial cells detection in u rine sediment by light microscopy 5-10 NRG Crystals detection in urine sediment by light microsco py NONE NRG Casts detection in urine sediment by light microscopy NONE NRG Mucus detection in urine sediment by light microscopy NEGATIVE NRG Complete urinalysis with reflex to culture NO NRG Bacterial blood culture - 08/10/16 02:27 Bacterial blood culture NG NRG Complete blood count (CBC) with automate d white blood cell (WBC) differential - 08/10/16 12:16 Blood leukocytes automated count (number/volume) 12.6 10*3/uL 4.3-11.0 Blood erythrocytes automated count (number/volume) 3.15 10*6/uL 4.35-5.85 Venous blood hemoglobin measurement (mass/volume) 11.6 g/dL 11.5-16.0 Blood hematocrit (volume fraction) 34 % 35-52 Automated erythrocyte mean corpuscular volume 108 [foz_us] 80-99 Automated erythrocyte mean corpuscular h emoglobin (mass per erythrocyte) 37 pg 25-34 Automated erythrocyte mean corpuscular h emoglobin concentration measurement (mass/volume) 34 g/dL 32-36 Automated erythrocyte distribution width ratio 16. 6 % 10.0- 14.5 Automated blood platelet count (count/volume) 358 10*3/uL [...] 10*3 1.0-4.0 Blood monocytes automated count (number/volume) 1. 5 10*3 0.0-1.0 Automated eosinophil count 0.2 10*3/uL 0 .0-0.3 Automated blood basophil count (count/volume) 0.1 10*3/uL 0.0-0.1 Comprehensive metabolic panel - 08/10/16 12:16 Serum or plasma sodium measurement (moles/volume) 140 mmol/L 135-145 Serum or plasma potassium measurement (moles/volume) 4.5 mmol/L 3.6-5.0 Serum or plasma chloride measurement (moles/volume) 113 mmol/L 98-107 Carbon dioxide 18 mmol/L 21-32 Serum or plasma anion gap determination (moles/volume) 9 mmol/L 5-14 Serum or plasma urea nitrogen measurement (mass/volume ) 18 mg/dL 7-18 Serum or plasma creatinine measurement (mass/volume) 0.71 mg/dL 0.60-1.30 Serum or plasma urea nitrogen/creatinine mass ratio 25 NRG Serum or plasma creatinine measurement w ith calculation of estimated glomerular filtration rate > NRG Serum or plasma glucose measurement (mass/volume) 99 mg/dL 70-105 Serum or plasma calcium measurement (mass/volume) 8.3 mg/dL 8.5-10.1 Serum or plasma total bilirubin measurement (mass/volu me) 0.3 mg/dL 0.1-1.0 Serum or plasma alkaline phosphatase rosetta surement (enzymatic activity/volume) 74 U/L 40-136 Serum or plasma aspartate aminotransfera se measurement (enzymatic activity/volume) 16 U/L 5-34 Serum or plasma alanine aminotransferase measurement (enzymatic activity/volume) 14 U/L 0-55 Serum or plasma protein measurement (mass/volume) 5.5 g/dL 6.4-8.2 Serum or plasma albumin measurement (mass/volume) 2.9 g/dL 3.2-4.5 Lipase - 08/10/16 12:16 Lipase 89 U/L 8-78 Complete blood count (CBC) with automate d white blood cell (WBC) differential - 08/11/16 05:20 Blood leukocytes automated count (number/volume) 12.3 10*3/uL 4.3-11.0 Blood erythrocytes automated count (number/volume) 3.17 10*6/uL 4.35-5.85 Venous blood hemoglobin measurement (mass/volume) 11.3 g/dL 11.5-16.0 Blood hematocrit (volume fraction) 35 % 35-52 Automated erythrocyte mean corpuscular volume 111 [foz_us] 80-99 Automated erythrocyte mean corpuscular h emoglobin (mass per erythrocyte) 36 pg 25-34 Automated erythrocyte mean corpuscular h emoglobin concentration measurement (mass/volume) 32 g/dL 32-36 Automated erythrocyte distribution width ratio 16. 6 % 10.0- 14.5 Automated blood platelet count (count/volume) 319 10*3/uL [...] 10*3 1.0-4.0 Blood monocytes automated count (number/volume) 1. 8 10*3 0.0-1.0 Automated eosinophil count 0.2 10*3/uL 0 .0-0.3 Automated blood basophil count (count/volume) 0.1 10*3/uL 0.0-0.1 Whole blood basic metabolic panel - 07/26 03/10 05:20 Serum or plasma sodium measurement (moles/volume) 140 mmol/L 135-145 Serum or plasma potassium measurement (moles/volume) 4.5 mmol/L 3.6-5.0 Serum or plasma chloride measurement (moles/volume) 109 mmol/L 98-107 Carbon dioxide 24 mmol/L 21-32 Serum or plasma anion gap determination (moles/volume) 7 mmol/L 5-14 Serum or plasma urea nitrogen measurement (mass/volume ) 10 mg/dL 7-18 Serum or plasma creatinine measurement (mass/volume) 0.64 mg/dL 0.60-1.30 Serum or plasma urea nitrogen/creatinine mass ratio 16 NRG Serum or plasma creatinine measurement w ith calculation of estimated glomerular filtration rate > NRG Serum or plasma glucose measurement (mass/volume) 94 mg/dL 70-105 Serum or plasma calcium measurement (mass/volume) 8.6 mg/dL 8.5-10.1 Lipase - 08/11/16 05:20 Lipase 95 U/L 8-78 Complete blood count (CBC) with automate d white blood cell (WBC) differential - 08/17/16 03:28 Blood leukocytes automated count (number/volume) 15.8 10*3/uL 4.3-11.0 Blood erythrocytes automated count (number/volume) 3.01 10*6/uL 4.35-5.85 Venous blood hemoglobin measurement (mass/volume) 11.2 g/dL 11.5-16.0 Blood hematocrit (volume fraction) 32 % 35-52 Automated erythrocyte mean corpuscular volume 106 [foz_us] 80-99 Automated erythrocyte mean corpuscular h emoglobin (mass per erythrocyte) 37 pg 25-34 Automated erythrocyte mean corpuscular h emoglobin concentration measurement (mass/volume) 35 g/dL 32-36 Automated erythrocyte distribution width ratio 15. 5 % 10.0- 14.5 Automated blood platelet count (count/volume) 427 10*3/uL [...] 10*3 1.0-4.0 Blood monocytes automated count (number/volume) 1. 8 10*3 0.0-1.0 Automated eosinophil count 0.1 10*3/uL 0 .0-0.3 Automated blood basophil count (count/volume) 0.0 10*3/uL 0.0-0.1 Blood manual differential performed dete ction - 08/17/16 03:28 Blood monocytes/100 leukocytes 13 % NRG Manual blood segmented neutrophils/100 leukocytes 73 % NRG Blood band neutrophils/100 leukocytes 0 % NRG Manual blood lymphocytes/100 leukocytes 6 % NRG Manual eosinophils/100 leukocytes in nose 2 % NRG Manual blood basophils/100 leukocytes 0 % NRG Blood lymphocytes variant/100 leukocytes 6 % NRG Blood anisocytosis detection by light microscopy M ODERATE NRG Blood macrocytes detection by light microscopy MOD ERATE NRG Blood microcytes detection by light microscopy SLI GHT NRG Blood target cells detection by light microscopy M ODERATE NRG Comprehensive metabolic panel - 08/17/16 03:28 Serum or plasma sodium measurement (moles/volume) 140 mmol/L 135-145 Serum or plasma potassium measurement (moles/volume) 4.4 mmol/L 3.6-5.0 Serum or plasma chloride measurement (moles/volume) 112 mmol/L 98-107 Carbon dioxide 17 mmol/L 21-32 Serum or plasma anion gap determination (moles/volume) 11 mmol/L 5-14 Serum or plasma urea nitrogen measurement (mass/volume ) 12 mg/dL 7-18 Serum or plasma creatinine measurement (mass/volume) 0.67 mg/dL 0.60-1.30 Serum or plasma urea nitrogen/creatinine mass ratio 18 NRG Serum or plasma creatinine measurement w ith calculation of estimated glomerular filtration rate > NRG Serum or plasma glucose measurement (mass/volume) 96 mg/dL 70-105 Serum or plasma calcium measurement (mass/volume) 8.0 mg/dL 8.5-10.1 Serum or plasma total bilirubin measurement (mass/volu me) 0.4 mg/dL 0.1-1.0 Serum or plasma alkaline phosphatase rosetta surement (enzymatic activity/volume) 106 U/L 40-136 Serum or plasma aspartate aminotransfera se measurement (enzymatic activity/volume) 25 U/L 5-34 Serum or plasma alanine aminotransferase measurement (enzymatic activity/volume) 46 U/L 0-55 Serum or plasma protein measurement (mass/volume) 5.0 g/dL 6.4-8.2 Serum or plasma albumin measurement (mass/volume) 2.5 g/dL 3.2-4.5 Magnesium - 08/17/16 03:28 Magnesium 1.6 mg/dL 1.8-2.4 Serum or plasma amylase measurement (enz ymatic activity/volume) - 08/17/16 03:28 Serum or plasma amylase measurement (enzymatic activit y/volume) 59 U/L 25-125 Lipase - 08/17/16 03:28 Lipase 84 U/L 8-78 Complete urinalysis with reflex to cultu re - 08/17/16 05:33 Urine color determination YELLOW NRG Urine clarity determination CLEAR NR G Urine pH measurement by test strip 5 5-9 Specific gravity of urine by test strip 1.015 1.016-1.022 Urine protein assay by test strip, semi-quantitative 1+ NEGATIVE Urine glucose detection by automated test strip NE GATIVE NEGATIVE Erythrocytes detection in urine sediment by light micr oscopy NEGATIVE NEGATIVE Urine ketones detection by automated test strip NE GATIVE NEGATIVE Urine nitrite detection by test strip NEGATIVE NEGATIVE Urine total bilirubin detection by test strip NEGA TIVE NEGATIVE Urine urobilinogen measurement by automated test strip (mass/volume) NORMAL NORMAL Urine leukocyte esterase detection by dipstick NEG ATIVE NEGATIVE Automated urine sediment erythrocyte cou nt by microscopy (number/high power field) NONE NRG Automated urine sediment leukocyte count by microscopy (number/high power field) NONE NRG Bacteria detection in urine sediment by light microsco py TRACE NRG Squamous epithelial cells detection in u rine sediment by light microscopy 2-5 NRG Crystals detection in urine sediment by light microsco py NONE NRG Casts detection in urine sediment by light microscopy NONE NRG Mucus detection in urine sediment by light microscopy NEGATIVE NRG Complete urinalysis with reflex to culture NO NRG Urine drug screening test - 08/17/16 05: 33 Urine phencyclidine detection by screening method NEGATIVE NEGATIVE Urine benzodiazepines detection by screening method NEGATIVE NEGATIVE Urine cocaine detection NEGATIVE NEGATI VE Urine amphetamines detection by screening method N EGATIVE NEGATIVE Urine methamphetamine detection by screening method NEGATIVE NEGATIVE Urine cannabinoids detection by screening method N EGATIVE NEGATIVE Urine opiates detection by screening method NEGATI VE NEGATIVE Urine barbiturates detection NEGATIVE N EGATIVE Screening urine tricyclic antidepressants detection NEGATIVE NEGATIVE Urine methadone detection by screening method NEGA TIVE NEGATIVE Urine oxycodone detection NEGATIVE NEGA TIVE Urine propoxyphene detection NEGATIVE N EGATIVE Blood lactic acid measurement (moles/vol ume) - 08/17/16 06:04 Blood lactic acid measurement (moles/volume) 0.7 m mol/L 0.5- 2.0 Bacterial blood culture - 08/17/16 06:04 Bacterial blood culture NG NRG Bacterial blood culture - 08/17/16 06:40 Bacterial blood culture NG NRG Complete blood count (CBC) with automate d white blood cell (WBC) differential - 05/21/17 17:30 Blood leukocytes automated count (number/volume) 10.3 10*3/uL 4.3-11.0 Blood erythrocytes automated count (number/volume) 3.69 10*6/uL 4.35-5.85 Venous blood hemoglobin measurement (mass/volume) 10.1 g/dL 11.5-16.0 Blood hematocrit (volume fraction) 34 % 35-52 Automated erythrocyte mean corpuscular volume 93 [ foz_us] 80-99 Automated erythrocyte mean corpuscular h emoglobin (mass per erythrocyte) 27 pg 25-34 Automated erythrocyte mean corpuscular h emoglobin concentration measurement (mass/volume) 29 g/dL 32-36 Automated erythrocyte distribution width ratio 17. 3 % 10.0- 14.5 Automated blood platelet count (count/volume) 390 10*3/uL [...] 10*3 1.0-4.0 Blood monocytes automated count (number/volume) 0. 9 10*3 0.0-1.0 Automated eosinophil count 0.1 10*3/uL 0 .0-0.3 Automated blood basophil count (count/volume) 0.1 10*3/uL 0.0-0.1 Complete urinalysis with reflex to cultu re - 05/21/17 17:30 Urine color determination YELLOW NRG Urine clarity determination CLEAR NR G Urine pH measurement by test strip 5 5-9 Specific gravity of urine by test strip 1.020 1.016-1.022 Urine protein assay by test strip, semi-quantitative 1+ NEGATIVE Urine glucose detection by automated test strip NE GATIVE NEGATIVE Erythrocytes detection in urine sediment by light micr oscopy NEGATIVE NEGATIVE Urine ketones detection by automated test strip NE GATIVE NEGATIVE Urine nitrite detection by test strip NEGATIVE NEGATIVE Urine total bilirubin detection by test strip NEGA TIVE NEGATIVE Urine urobilinogen measurement by automated test strip (mass/volume) NORMAL NORMAL Urine leukocyte esterase detection by dipstick NEG ATIVE NEGATIVE Automated urine sediment erythrocyte cou nt by microscopy (number/high power field) NONE NRG Automated urine sediment leukocyte count by microscopy (number/high power field) [HPF] NRG Bacteria detection in urine sediment by light microsco py TRACE NRG Squamous epithelial cells detection in u rine sediment by light microscopy 2-5 NRG Crystals detection in urine sediment by light microsco py NONE NRG Casts detection in urine sediment by light microscopy NONE NRG Mucus detection in urine sediment by light microscopy NEGATIVE NRG Complete urinalysis with reflex to culture NO NRG Urine drug screening test - 05/21/17 17: 30 Urine phencyclidine detection by screening method NEGATIVE NEGATIVE Urine benzodiazepines detection by screening method NEGATIVE NEGATIVE Urine cocaine detection NEGATIVE NEGATI VE Urine amphetamines detection by screening method N EGATIVE NEGATIVE Urine methamphetamine detection by screening method NEGATIVE NEGATIVE Urine cannabinoids detection by screening method N EGATIVE NEGATIVE Urine opiates detection by screening method NEGATI VE NEGATIVE Urine barbiturates detection NEGATIVE N EGATIVE Screening urine tricyclic antidepressants detection NEGATIVE NEGATIVE Urine methadone detection by screening method NEGA TIVE NEGATIVE Urine oxycodone detection NEGATIVE NEGA TIVE Urine propoxyphene detection NEGATIVE N EGATIVE Comprehensive metabolic panel - 05/21/17 17:30 Serum or plasma sodium measurement (moles/volume) 139 mmol/L 135-145 Serum or plasma potassium measurement (moles/volume) 4.8 mmol/L 3.6-5.0 Serum or plasma chloride measurement (moles/volume) 110 mmol/L 98-107 Carbon dioxide 18 mmol/L 21-32 Serum or plasma anion gap determination (moles/volume) 11 mmol/L 5-14 Serum or plasma urea nitrogen measurement (mass/volume ) 22 mg/dL 7-18 Serum or plasma creatinine measurement (mass/volume) 0.80 mg/dL 0.60-1.30 Serum or plasma urea nitrogen/creatinine mass ratio 28 NRG Serum or plasma creatinine measurement w ith calculation of estimated glomerular filtration rate > NRG Serum or plasma glucose measurement (mass/volume) 93 mg/dL 70-105 Serum or plasma calcium measurement (mass/volume) 9.3 mg/dL 8.5-10.1 Serum or plasma total bilirubin measurement (mass/volu me) 0.2 mg/dL 0.1-1.0 Serum or plasma alkaline phosphatase rosetta surement (enzymatic activity/volume) 62 U/L 40-136 Serum or plasma aspartate aminotransfera se measurement (enzymatic activity/volume) 10 U/L 5-34 Serum or plasma alanine aminotransferase measurement (enzymatic activity/volume) 8 U/L 0-55 Serum or plasma protein measurement (mass/volume) 7.2 g/dL 6.4-8.2 Serum or plasma albumin measurement (mass/volume) 4.1 g/dL 3.2-4.5 Lipase - 05/21/17 17:30 Lipase 120 U/L 8-78 Serum or plasma ethanol measurement (mas s/volume) - 05/21/17 17:30 Serum or plasma ethanol measurement (mass/volume) < mg/dL <10 Serum or plasma C reactive protein measu rement (mass/volume) - 05/21/17 17:30 Serum or plasma C reactive protein measurement (mass/v olume) 0.06 mg/dL 0.00-0.50 Blood lactic acid measurement (moles/vol ume) - 08/05/17 15:43 Blood lactic acid measurement (moles/volume) 0.89 mmol/L 0.50-2.00 Complete blood count (CBC) with automate d white blood cell (WBC) differential - 08/05/17 15:43 Blood leukocytes automated count (number/volume) 15.2 10*3/uL 4.3-11.0 Blood erythrocytes automated count (number/volume) 3.04 10*6/uL 4.35-5.85 Venous blood hemoglobin measurement (mass/volume) 7.6 g/dL 11.5-16.0 Blood hematocrit (volume fraction) 26 % 35-52 Automated erythrocyte mean corpuscular volume 86 [ foz_us] 80-99 Automated erythrocyte mean corpuscular h emoglobin (mass per erythrocyte) 25 pg 25-34 Automated erythrocyte mean corpuscular h emoglobin concentration measurement (mass/volume) 29 g/dL 32-36 Automated erythrocyte distribution width ratio 16. 7 % 10.0- 14.5 Automated blood platelet count (count/volume) 135 10*3/uL [...] 10*3 1.0-4.0 Blood monocytes automated count (number/volume) 1. 7 10*3 0.0-1.0 Automated eosinophil count 0.0 10*3/uL 0 .0-0.3 Automated blood basophil count (count/volume) 0.0 10*3/uL 0.0-0.1 Comprehensive metabolic panel - 08/05/17 15:43 Serum or plasma sodium measurement (moles/volume) 139 mmol/L 135-145 Serum or plasma potassium measurement (moles/volume) 4.6 mmol/L 3.6-5.0 Serum or plasma chloride measurement (moles/volume) 111 mmol/L 98-107 Carbon dioxide 14 mmol/L 21-32 Serum or plasma anion gap determination (moles/volume) 14 mmol/L 5-14 Serum or plasma urea nitrogen measurement (mass/volume ) 55 mg/dL 7-18 Serum or plasma creatinine measurement (mass/volume) 2.38 mg/dL 0.60-1.30 Serum or plasma urea nitrogen/creatinine mass ratio 23 NRG Serum or plasma creatinine measurement w ith calculation of estimated glomerular filtration rate 22 NRG Serum or plasma glucose measurement (mass/volume) 102 mg/dL 70-105 Serum or plasma calcium measurement (mass/volume) 8.5 mg/dL 8.5-10.1 Serum or plasma total bilirubin measurement (mass/volu me) 0.3 mg/dL 0.1-1.0 Serum or plasma alkaline phosphatase rosetta surement (enzymatic activity/volume) 89 U/L 40-136 Serum or plasma aspartate aminotransfera se measurement (enzymatic activity/volume) 21 U/L 5-34 Serum or plasma alanine aminotransferase measurement (enzymatic activity/volume) 17 U/L 0-55 Serum or plasma protein measurement (mass/volume) 6.0 g/dL 6.4-8.2 Serum or plasma albumin measurement (mass/volume) 2.6 g/dL 3.2-4.5 PT panel in platelet poor plasma by coag ulation assay - 08/05/17 15:43 Prothrombin time (PT) in platelet poor plasma by coagu lation assay 15.9 s 12.2-14.7 INR in platelet poor plasma or blood by coagulation as say 1.3 0.8-1.4 Activated partial thromboplastin time (a PTT) in platelet poor plasma bycoagulation assay - 08/05/17 15:43 Activated partial thromboplastin time (a PTT) in platelet poor plasma bycoagulation assay 35 s 24-35 Blood manual differential performed dete ction - 08/05/17 15:43 Blood monocytes/100 leukocytes 10 % NRG Manual blood segmented neutrophils/100 leukocytes 85 % NRG Manual blood lymphocytes/100 leukocytes 5 % NRG Blood hypochromia detection by light microscopy MO DERATE NRG Blood target cells detection by light microscopy S LIGHT NRG Blood hypersegmented neutrophils detection by light mi croscopy SLIGHT NRG Serum or plasma troponin i.cardiac measu rement (mass/volume) - 08/05/17 15:43 Serum or plasma troponin i.cardiac measurement (mass/v olume) < ng/mL <0.30 Serum or plasma thyrotropin measurement by detection limit <=0.05 miu/l (units/volume) - 08/05/17 15:43 Serum or plasma thyrotropin measurement by detection limit <=0.05 miu/l (units/volume) 3.11 u[iU]/mL 0.35-4.94 Serum or plasma amylase measurement (enz ymatic activity/volume) - 08/05/17 15:43 Serum or plasma amylase measurement (enzymatic activit y/volume) 52 U/L 25-125 Lipase - 08/05/17 15:43 Lipase 66 U/L 8-78 Serum or plasma salicylates measurement (mass/volume) - 08/05/17 15:43 Serum or plasma salicylates measurement (mass/volume) < mg/dL 5.0-20.0 Serum or plasma acetaminophen measuremen t (mass/volume) - 08/05/17 15:43 Serum or plasma acetaminophen measurement (mass/volume ) 41 ug/mL 10-30 Serum or plasma ethanol measurement (mas s/volume) - 08/05/17 15:43 Serum or plasma ethanol measurement (mass/volume) < mg/dL <10 Bacterial blood culture - 08/05/17 15:43 QUANTITY OF GROWTH . NRG Bacterial blood culture SEE COMMEN NRG Urine drug screening test - 08/05/17 16: 20 Urine phencyclidine detection by screening method NEGATIVE NEGATIVE Urine benzodiazepines detection by screening method NEGATIVE NEGATIVE Urine cocaine detection NEGATIVE NEGATI VE Urine amphetamines detection by screening method N EGATIVE NEGATIVE Urine methamphetamine detection by screening method NEGATIVE NEGATIVE Urine cannabinoids detection by screening method N EGATIVE NEGATIVE Urine opiates detection by screening method NEGATI VE NEGATIVE Urine barbiturates detection NEGATIVE N EGATIVE Screening urine tricyclic antidepressants detection NEGATIVE NEGATIVE Urine methadone detection by screening method NEGA TIVE NEGATIVE Urine oxycodone detection NEGATIVE NEGA TIVE Urine propoxyphene detection NEGATIVE N EGATIVE Complete urinalysis with reflex to cultu re - 08/05/17 16:20 Urine color determination YELLOW NRG Urine clarity determination VERY CLOUDY NRG Urine pH measurement by test strip 5 5-9 Specific gravity of urine by test strip 1.015 1.016-1.022 Urine protein assay by test strip, semi-quantitative 3+ NEGATIVE Urine glucose detection by automated test strip NE GATIVE NEGATIVE Erythrocytes detection in urine sediment by light micr oscopy 2+ NEGATIVE Urine ketones detection by automated test strip NE GATIVE NEGATIVE Urine nitrite detection by test strip POSITIVE NEGATIVE Urine total bilirubin detection by test strip NEGA TIVE NEGATIVE Urine urobilinogen measurement by automated test strip (mass/volume) NORMAL NORMAL Urine leukocyte esterase detection by dipstick 3+ NEGATIVE Automated urine sediment erythrocyte cou nt by microscopy (number/high power field) [HPF] NRG Automated urine sediment leukocyte count by microscopy (number/high power field) TNTC NRG Bacteria detection in urine sediment by light microsco py MODERATE NRG Crystals detection in urine sediment by light microsco py NONE NRG Casts detection in urine sediment by light microscopy NONE NRG Mucus detection in urine sediment by light microscopy NEGATIVE NRG Complete urinalysis with reflex to culture YES NRG Bacterial urine culture - 08/05/17 16:20 Bacterial urine culture [id number] NRG COLONY COUNT >100,000/ML NRG FTX;REPORTABLE CEFTRIAXONE REPORTED 08/06/17 16:18 NRG FREE TEXT ENTRY 2 SENSITIVITY REPORTED 08/07/17 7: 00 NRG FREE TEXT ENTRY 3 PLUS, ACTINOMYCTES 10-100,00/ML NRG Bacterial susceptibility panel - 7 16:20 Gentamicin susceptibility test by minimum inhibitory c oncentration <= NRG Trimethoprim/sulfamethoxazole susceptibi lity test by minimum inhibitoryconcentration S NRG Ampicillin susceptibility test by minimum inhibitory c oncentration <= NRG Tobramycin susceptibility test by minimum inhibitory c oncentration <= NRG Cefazolin susceptibility test by minimum inhibitory co ncentration <= NRG Ceftriaxone susceptibility test by minimum inhibitory concentration <= NRG Ampicillin/sulbactam susceptibility test by minimum inhibitory concentration S NRG Piperacillin/tazobactam susceptibility t est by minimum inhibitory concentration <= NRG Ciprofloxacin susceptibility test by minimum inhibitor y concentration <= NRG Meropenem susceptibility test by minimum inhibitory co ncentration <= NRG Nitrofurantoin susceptibility test by mi nimum inhibitory concentration <= NRG Aztreonam susceptibility test by minimum inhibitory co ncentration <= NRG Extended spectrum beta lactamase (ESBL) producing bacteria susceptibility test by minimum inhibitory concentration - NR Bacterial blood culture - 08/05/17 16:36 QUANTITY OF GROWTH . NRG Bacterial blood culture SEE COMMEN NRG Serum or plasma acetaminophen measuremen t (mass/volume) - 08/05/17 19:55 Serum or plasma acetaminophen measurement (mass/volume ) < ug/mL 10-30 Methicillin resistant Staphylococcus aur eus (MRSA) screening culture - 08/05/17 19:55 Methicillin resistant Staphylococcus aureus (MRSA) scr eening culture NEG NRG Complete blood count (CBC) with automate d white blood cell (WBC) differential - 08/06/17 02:45 Blood leukocytes automated count (number/volume) 16.2 10*3/uL 4.3-11.0 Blood erythrocytes automated count (number/volume) 2.94 10*6/uL 4.35-5.85 Venous blood hemoglobin measurement (mass/volume) 7.4 g/dL 11.5-16.0 Blood hematocrit (volume fraction) 25 % 35-52 Automated erythrocyte mean corpuscular volume 85 [ foz_us] 80-99 Automated erythrocyte mean corpuscular h emoglobin (mass per erythrocyte) 25 pg 25-34 Automated erythrocyte mean corpuscular h emoglobin concentration measurement (mass/volume) 30 g/dL 32-36 Automated erythrocyte distribution width ratio 16. 3 % 10.0- 14.5 Automated blood platelet count (count/volume) 129 10*3/uL [...] 10*3 1.0-4.0 Blood monocytes automated count (number/volume) 1. 8 10*3 0.0-1.0 Automated eosinophil count 0.0 10*3/uL 0 .0-0.3 Automated blood basophil count (count/volume) 0.0 10*3/uL 0.0-0.1 PT panel in platelet poor plasma by coag ulation assay - 08/06/17 02:45 Prothrombin time (PT) in platelet poor plasma by coagu lation assay 16.8 s 12.2-14.7 INR in platelet poor plasma or blood by coagulation as say 1.4 0.8-1.4 Comprehensive metabolic panel - 08/06/17 02:45 Serum or plasma sodium measurement (moles/volume) 139 mmol/L 135-145 Serum or plasma potassium measurement (moles/volume) 3.7 mmol/L 3.6-5.0 Serum or plasma chloride measurement (moles/volume) 111 mmol/L 98-107 Carbon dioxide 11 mmol/L 21-32 Serum or plasma anion gap determination (moles/volume) 17 mmol/L 5-14 Serum or plasma urea nitrogen measurement (mass/volume ) 49 mg/dL 7-18 Serum or plasma creatinine measurement (mass/volume) 2.13 mg/dL 0.60-1.30 Serum or plasma urea nitrogen/creatinine mass ratio 23 NRG Serum or plasma creatinine measurement w ith calculation of estimated glomerular filtration rate 25 NRG Serum or plasma glucose measurement (mass/volume) 109 mg/dL 70-105 Serum or plasma calcium measurement (mass/volume) 7.8 mg/dL 8.5-10.1 Serum or plasma total bilirubin measurement (mass/volu me) 0.2 mg/dL 0.1-1.0 Serum or plasma alkaline phosphatase rosetta surement (enzymatic activity/volume) 86 U/L 40-136 Serum or plasma aspartate aminotransfera se measurement (enzymatic activity/volume) 22 U/L 5-34 Serum or plasma alanine aminotransferase measurement (enzymatic activity/volume) 13 U/L 0-55 Serum or plasma protein measurement (mass/volume) 5.1 g/dL 6.4-8.2 Serum or plasma albumin measurement (mass/volume) 2.3 g/dL 3.2-4.5 Serum or plasma phosphate measurement (m ass/volume) - 08/06/17 02:45 Serum or plasma phosphate measurement (mass/volume) 2.8 mg/dL 2.3-4.7 Magnesium - 08/06/17 02:45 Magnesium 1.7 mg/dL 1.8-2.4 Serum or plasma acetaminophen measuremen t (mass/volume) - 08/06/17 02:45 Serum or plasma acetaminophen measurement (mass/volume ) < ug/mL 10-30 Complete blood count (CBC) with automate d white blood cell (WBC) differential - 08/07/17 05:22 Blood leukocytes automated count (number/volume) 12.7 10*3/uL 4.3-11.0 Blood erythrocytes automated count (number/volume) 2.59 10*6/uL 4.35-5.85 Venous blood hemoglobin measurement (mass/volume) 6.5 g/dL 11.5-16.0 Blood hematocrit (volume fraction) 23 % 35-52 Automated erythrocyte mean corpuscular volume 87 [ foz_us] 80-99 Automated erythrocyte mean corpuscular h emoglobin (mass per erythrocyte) 25 pg 25-34 Automated erythrocyte mean corpuscular h emoglobin concentration measurement (mass/volume) 29 g/dL 32-36 Automated erythrocyte distribution width ratio 17. 0 % 10.0- 14.5 Automated blood platelet count (count/volume) 113 10*3/uL 130-400 Automated blood platelet mean volume measurement T [employer]IST 7.4- 10.4 Automated blood neutrophils/100 leukocytes 87 % 42-75 Automated blood lymphocytes/100 leukocytes 3 % 12-44 Blood monocytes/100 leukocytes 9 % 0-12 Automated blood eosinophils/100 leukocytes 1 % 0-10 Automated blood basophils/100 leukocytes 0 % 0-10 Blood neutrophils automated count (number/volume) 11.0 10*3 1.8-7.8 Blood lymphocytes automated count (number/volume) 0.4 10*3 1.0-4.0 Blood monocytes automated count (number/volume) 1. 1 10*3 0.0-1.0 Automated eosinophil count 0.1 10*3/uL 0 .0-0.3 Automated blood basophil count (count/volume) 0.0 10*3/uL 0.0-0.1 Whole blood basic metabolic panel - 07/26 11/09 05:22 Serum or plasma sodium measurement (moles/volume) 140 mmol/L 135-145 Serum or plasma potassium measurement (moles/volume) 3.1 mmol/L 3.6-5.0 Serum or plasma chloride measurement (moles/volume) 115 mmol/L 98-107 Carbon dioxide 15 mmol/L 21-32 Serum or plasma anion gap determination (moles/volume) 10 mmol/L 5-14 Serum or plasma urea nitrogen measurement (mass/volume ) 38 mg/dL 7-18 Serum or plasma creatinine measurement (mass/volume) 2.04 mg/dL 0.60-1.30 Serum or plasma urea nitrogen/creatinine mass ratio 19 NRG Serum or plasma creatinine measurement w ith calculation of estimated glomerular filtration rate 26 NRG Serum or plasma glucose measurement (mass/volume) 108 mg/dL 70-105 Serum or plasma calcium measurement (mass/volume) 8.1 mg/dL 8.5-10.1 Serum or plasma phosphate measurement (m ass/volume) - 08/07/17 05:22 Serum or plasma phosphate measurement (mass/volume) 2.5 mg/dL 2.3-4.7 Magnesium - 08/07/17 05:22 Magnesium 1.9 mg/dL 1.8-2.4 IRON TEST - 08/07/17 05:22 Serum or plasma iron measurement (mass/volume) < % 35-180 Complete blood count (CBC) with automate d white blood cell (WBC) differential - 08/08/17 05:43 Blood leukocytes automated count (number/volume) 12.3 10*3/uL 4.3-11.0 Blood erythrocytes automated count (number/volume) 2.80 10*6/uL 4.35-5.85 Venous blood hemoglobin measurement (mass/volume) 7.1 g/dL 11.5-16.0 Blood hematocrit (volume fraction) 25 % 35-52 Automated erythrocyte mean corpuscular volume 90 [ foz_us] 80-99 Automated erythrocyte mean corpuscular h emoglobin (mass per erythrocyte) 25 pg 25-34 Automated erythrocyte mean corpuscular h emoglobin concentration measurement (mass/volume) 28 g/dL 32-36 Automated erythrocyte distribution width ratio 17. 2 % 10.0- 14.5 Automated blood platelet count (count/volume) 145 10*3/uL [...] 10*3 1.0-4.0 Blood monocytes automated count (number/volume) 1. 1 10*3 0.0-1.0 Automated eosinophil count 0.2 10*3/uL 0 .0-0.3 Automated blood basophil count (count/volume) 0.0 10*3/uL 0.0-0.1 Comprehensive metabolic panel - 08/08/17 05:43 Serum or plasma sodium measurement (moles/volume) 143 mmol/L 135-145 Serum or plasma potassium measurement (moles/volume) 4.1 mmol/L 3.6-5.0 Serum or plasma chloride measurement (moles/volume) 116 mmol/L 98-107 Carbon dioxide 14 mmol/L 21-32 Serum or plasma anion gap determination (moles/volume) 13 mmol/L 5-14 Serum or plasma urea nitrogen measurement (mass/volume ) 28 mg/dL 7-18 Serum or plasma creatinine measurement (mass/volume) 1.76 mg/dL 0.60-1.30 Serum or plasma urea nitrogen/creatinine mass ratio 16 NRG Serum or plasma creatinine measurement w ith calculation of estimated glomerular filtration rate 31 NRG Serum or plasma glucose measurement (mass/volume) 86 mg/dL 70-105 Serum or plasma calcium measurement (mass/volume) 8.4 mg/dL 8.5-10.1 Serum or plasma total bilirubin measurement (mass/volu me) 0.2 mg/dL 0.1-1.0 Serum or plasma alkaline phosphatase rosetta surement (enzymatic activity/volume) 216 U/L 40-136 Serum or plasma aspartate aminotransfera se measurement (enzymatic activity/volume) 18 U/L 5-34 Serum or plasma alanine aminotransferase measurement (enzymatic activity/volume) 34 U/L 0-55 Serum or plasma protein measurement (mass/volume) 4.9 g/dL 6.4-8.2 Serum or plasma albumin measurement (mass/volume) 2.6 g/dL 3.2-4.5 Serum or plasma phosphate measurement (m ass/volume) - 08/08/17 05:43 Serum or plasma phosphate measurement (mass/volume) 2.6 mg/dL 2.3-4.7 Magnesium - 08/08/17 05:43 Magnesium 1.7 mg/dL 1.8-2.4 Complete urinalysis with reflex to cultu re - 10/31/17 15:25 Urine color determination YELLOW NRG Urine clarity determination CLEAR NR G Urine pH measurement by test strip 6 5-9 Specific gravity of urine by test strip 1.015 1.016-1.022 Urine protein assay by test strip, semi-quantitative 2+ NEGATIVE Urine glucose detection by automated test strip NE GATIVE NEGATIVE Erythrocytes detection in urine sediment by light micr oscopy NEGATIVE NEGATIVE Urine ketones detection by automated test strip NE GATIVE NEGATIVE Urine nitrite detection by test strip NEGATIVE NEGATIVE Urine total bilirubin detection by test strip NEGA TIVE NEGATIVE Urine urobilinogen measurement by automated test strip (mass/volume) NORMAL NORMAL Urine leukocyte esterase detection by dipstick 2+ NEGATIVE Automated urine sediment erythrocyte cou nt by microscopy (number/high power field) RARE NRG Automated urine sediment leukocyte count by microscopy (number/high power field) > [HPF] NRG Bacteria detection in urine sediment by light microsco py FEW NRG Squamous epithelial cells detection in u rine sediment by light microscopy 0-2 NRG Crystals detection in urine sediment by light microsco py NONE NRG Casts detection in urine sediment by light microscopy NONE NRG Mucus detection in urine sediment by light microscopy NEGATIVE NRG Complete urinalysis with reflex to culture YES NRG Bacterial urine culture - 10/31/17 15:25 Bacterial urine culture [id number] NRG COLONY COUNT 10,000/ML - 100,000/ML NRG FTX;REPORTABLE SENSITIVITY REPORTED 11/02 08:45 NRG Bacterial susceptibility panel - 8 15:25 Gentamicin susceptibility test by minimum inhibitory c oncentration <= NRG Trimethoprim/sulfamethoxazole susceptibi lity test by minimum inhibitoryconcentration S NRG Ampicillin susceptibility test by minimum inhibitory c oncentration 4 NRG Tobramycin susceptibility test by minimum inhibitory c oncentration <= NRG Cefazolin susceptibility test by minimum inhibitory co ncentration <= NRG Ceftriaxone susceptibility test by minimum inhibitory concentration <= NRG Ampicillin/sulbactam susceptibility test by minimum inhibitory concentration <= NRG Piperacillin/tazobactam susceptibility t est by minimum inhibitory concentration S NRG Ciprofloxacin susceptibility test by minimum inhibitor y concentration <= NRG Meropenem susceptibility test by minimum inhibitory co ncentration <= NRG Nitrofurantoin susceptibility test by mi nimum inhibitory concentration <= NRG Aztreonam susceptibility test by minimum inhibitory co ncentration <= NRG Extended spectrum beta lactamase (ESBL) producing bacteria susceptibility test by minimum inhibitory concentration - NRG Complete blood count (CBC) with automate d white blood cell (WBC) differential - 10/31/17 16:43 Blood leukocytes automated count (number/volume) 8.0 10*3/uL 4.3-11.0 Blood erythrocytes automated count (number/volume) 3.58 10*6/uL 4.35-5.85 Venous blood hemoglobin measurement (mass/volume) 10.8 g/dL 11.5-16.0 Blood hematocrit (volume fraction) 36 % 35-52 Automated erythrocyte mean corpuscular volume 99 [ foz_us] 80-99 Automated erythrocyte mean corpuscular h emoglobin (mass per erythrocyte) 30 pg 25-34 Automated erythrocyte mean corpuscular h emoglobin concentration measurement (mass/volume) 30 g/dL 32-36 Automated erythrocyte distribution width ratio 17. 9 % 10.0- 14.5 Automated blood platelet count (count/volume) 293 10*3/uL [...] 10*3 1.0-4.0 Blood monocytes automated count (number/volume) 0. 8 10*3 0.0-1.0 Automated eosinophil count 0.2 10*3/uL 0 .0-0.3 Automated blood basophil count (count/volume) 0.1 10*3/uL 0.0-0.1 Comprehensive metabolic panel - 10/31/17 16:43 Serum or plasma sodium measurement (moles/volume) 138 mmol/L 135-145 Serum or plasma potassium measurement (moles/volume) 4.8 mmol/L 3.6-5.0 Serum or plasma chloride measurement (moles/volume) 113 mmol/L 98-107 Carbon dioxide 17 mmol/L 21-32 Serum or plasma anion gap determination (moles/volume) 8 mmol/L 5-14 Serum or plasma urea nitrogen measurement (mass/volume ) 28 mg/dL 7-18 Serum or plasma creatinine measurement (mass/volume) 1.65 mg/dL 0.60-1.30 Serum or plasma urea nitrogen/creatinine mass ratio 17 NRG Serum or plasma creatinine measurement w ith calculation of estimated glomerular filtration rate 33 NRG Serum or plasma glucose measurement (mass/volume) 96 mg/dL 70-105 Serum or plasma calcium measurement (mass/volume) 9.0 mg/dL 8.5-10.1 Serum or plasma total bilirubin measurement (mass/volu me) 0.1 mg/dL 0.1-1.0 Serum or plasma alkaline phosphatase rosetta surement (enzymatic activity/volume) 68 U/L 40-136 Serum or plasma aspartate aminotransfera se measurement (enzymatic activity/volume) 8 U/L 5-34 Serum or plasma alanine aminotransferase measurement (enzymatic activity/volume) < U/L 0-55 Serum or plasma protein measurement (mass/volume) 7.8 g/dL 6.4-8.2 Serum or plasma albumin measurement (mass/volume) 3.8 g/dL 3.2-4.5 Lipase - 10/31/17 16:43 Lipase 58 U/L 8-78 Serum or plasma C reactive protein measu rement (mass/volume) - 10/31/17 16:43 Serum or plasma C reactive protein measurement (mass/v olume) 0.25 mg/dL 0.00-0.50 Complete blood count (CBC) with automate d white blood cell (WBC) differential - 11/07/17 23:57 Blood leukocytes automated count (number/volume) 12.8 10*3/uL 4.3-11.0 Blood erythrocytes automated count (number/volume) 3.60 10*6/uL 4.35-5.85 Venous blood hemoglobin measurement (mass/volume) 10.9 g/dL 11.5-16.0 Blood hematocrit (volume fraction) 36 % 35-52 Automated erythrocyte mean corpuscular volume 100 [foz_us] 80-99 Automated erythrocyte mean corpuscular h emoglobin (mass per erythrocyte) 30 pg 25-34 Automated erythrocyte mean corpuscular h emoglobin concentration measurement (mass/volume) 30 g/dL 32-36 Automated erythrocyte distribution width ratio 17. 6 % 10.0- 14.5 Automated blood platelet count (count/volume) 254 10*3/uL [...] 10*3 1.0-4.0 Blood monocytes automated count (number/volume) 1. 2 10*3 0.0-1.0 Automated eosinophil count 0.2 10*3/uL 0 .0-0.3 Automated blood basophil count (count/volume) 0.0 10*3/uL 0.0-0.1 PT panel in platelet poor plasma by coag ulation assay - 11/07/17 23:57 Prothrombin time (PT) in platelet poor plasma by coagu lation assay 11.5 s 12.2-14.7 INR in platelet poor plasma or blood by coagulation as say 0.8 0.8-1.4 Activated partial thromboplastin time (a PTT) in platelet poor plasma bycoagulation assay - 11/07/17 23:57 Activated partial thromboplastin time (a PTT) in platelet poor plasma bycoagulation assay 32 s 24-35 Comprehensive metabolic panel - 11/07/17 23:57 Serum or plasma sodium measurement (moles/volume) 139 mmol/L 135-145 Serum or plasma potassium measurement (moles/volume) 4.7 mmol/L 3.6-5.0 Serum or plasma chloride measurement (moles/volume) 112 mmol/L 98-107 Carbon dioxide 19 mmol/L 21-32 Serum or plasma anion gap determination (moles/volume) 8 mmol/L 5-14 Serum or plasma urea nitrogen measurement (mass/volume ) 35 mg/dL 7-18 Serum or plasma creatinine measurement (mass/volume) 1.42 mg/dL 0.60-1.30 Serum or plasma urea nitrogen/creatinine mass ratio 25 NRG Serum or plasma creatinine measurement w ith calculation of estimated glomerular filtration rate 39 NRG Serum or plasma glucose measurement (mass/volume) 95 mg/dL 70-105 Serum or plasma calcium measurement (mass/volume) 9.1 mg/dL 8.5-10.1 Serum or plasma total bilirubin measurement (mass/volu me) 0.2 mg/dL 0.1-1.0 Serum or plasma alkaline phosphatase rosetta surement (enzymatic activity/volume) 60 U/L 40-136 Serum or plasma aspartate aminotransfera se measurement (enzymatic activity/volume) 8 U/L 5-34 Serum or plasma alanine aminotransferase measurement (enzymatic activity/volume) 6 U/L 0-55 Serum or plasma protein measurement (mass/volume) 7.0 g/dL 6.4-8.2 Serum or plasma albumin measurement (mass/volume) 3.8 g/dL 3.2-4.5 Magnesium - 11/07/17 23:57 Magnesium 2.3 mg/dL 1.8-2.4 Serum or plasma troponin i.cardiac measu rement (mass/volume) - 11/07/17 23:57 Serum or plasma troponin i.cardiac measurement (mass/v olume) < ng/mL <0.30 Myoglobin, serum - 11/07/17 23:57 Myoglobin, serum 21.2 ng/mL 10.0-92.0 Lipase - 11/07/17 23:57 Lipase 124 U/L 8-78 Complete urinalysis with reflex to cultu re - 11/08/17 00:07 Urine color determination YELLOW NRG Urine clarity determination CLEAR NR G Urine pH measurement by test strip 6.5 5-9 Specific gravity of urine by test strip 1.015 1.016-1.022 Urine protein assay by test strip, semi-quantitative 1+ NEGATIVE Urine glucose detection by automated test strip NE GATIVE NEGATIVE Erythrocytes detection in urine sediment by light micr oscopy NEGATIVE NEGATIVE Urine ketones detection by automated test strip NE GATIVE NEGATIVE Urine nitrite detection by test strip NEGATIVE NEGATIVE Urine total bilirubin detection by test strip NEGA TIVE NEGATIVE Urine urobilinogen measurement by automated test strip (mass/volume) NORMAL NORMAL Urine leukocyte esterase detection by dipstick 1+ NEGATIVE Automated urine sediment erythrocyte cou nt by microscopy (number/high power field) NONE NRG Automated urine sediment leukocyte count by microscopy (number/high power field) [HPF] NRG Bacteria detection in urine sediment by light microsco py TRACE NRG Squamous epithelial cells detection in u rine sediment by light microscopy 5-10 NRG Crystals detection in urine sediment by light microsco py NONE NRG Casts detection in urine sediment by light microscopy NONE NRG Mucus detection in urine sediment by light microscopy NEGATIVE NRG Complete urinalysis with reflex to culture NO NRG Complete blood count (CBC) with automate d white blood cell (WBC) differential - 11/08/17 18:45 Blood leukocytes automated count (number/volume) 12.1 10*3/uL 4.3-11.0 Blood erythrocytes automated count (number/volume) 3.65 10*6/uL 4.35-5.85 Venous blood hemoglobin measurement (mass/volume) 10.9 g/dL 11.5-16.0 Blood hematocrit (volume fraction) 36 % 35-52 Automated erythrocyte mean corpuscular volume 99 [ foz_us] 80-99 Automated erythrocyte mean corpuscular h emoglobin (mass per erythrocyte) 30 pg 25-34 Automated erythrocyte mean corpuscular h emoglobin concentration measurement (mass/volume) 30 g/dL 32-36 Automated erythrocyte distribution width ratio 17. 3 % 10.0- 14.5 Automated blood platelet count (count/volume) 249 10*3/uL 130-400 Automated blood platelet mean volume measurement 10.8 [foz_us] 7.4-10.4 Automated blood neutrophils/100 leukocytes 73 % 42-75 Automated blood lymphocytes/100 leukocytes 13 % 12-44 Blood monocytes/100 leukocytes 12 % 0-12 Automated blood eosinophils/100 leukocytes 1 % 0-10 Automated blood basophils/100 leukocytes 0 % 0-10 Blood neutrophils automated count (number/volume) 8.8 10*3 1.8-7.8 Blood lymphocytes automated count (number/volume) 1.6 10*3 1.0-4.0 Blood monocytes automated count (number/volume) 1. 5 10*3 0.0-1.0 Automated eosinophil count 0.2 10*3/uL 0 .0-0.3 Automated blood basophil count (count/volume) 0.0 10*3/uL 0.0-0.1 Complete urinalysis with reflex to cultu re - 11/08/17 19:00 Urine color determination YELLOW NRG Urine clarity determination CLEAR NR G Urine pH measurement by test strip 6 5-9 Specific gravity of urine by test strip 1.010 1.016-1.022 Urine protein assay by test strip, semi-quantitative 2+ NEGATIVE Urine glucose detection by automated test strip NE GATIVE NEGATIVE Erythrocytes detection in urine sediment by light micr oscopy NEGATIVE NEGATIVE Urine ketones detection by automated test strip NE GATIVE NEGATIVE Urine nitrite detection by test strip NEGATIVE NEGATIVE Urine total bilirubin detection by test strip NEGA TIVE NEGATIVE Urine urobilinogen measurement by automated test strip (mass/volume) NORMAL NORMAL Urine leukocyte esterase detection by dipstick 1+ NEGATIVE Automated urine sediment erythrocyte cou nt by microscopy (number/high power field) NONE NRG Automated urine sediment leukocyte count by microscopy (number/high power field) [HPF] NRG Bacteria detection in urine sediment by light microsco py FEW NRG Squamous epithelial cells detection in u rine sediment by light microscopy 2-5 NRG Crystals detection in urine sediment by light microsco py NONE NRG Casts detection in urine sediment by light microscopy NONE NRG Mucus detection in urine sediment by light microscopy NEGATIVE NRG Complete urinalysis with reflex to culture YES NRG Bacterial urine culture - 11/08/17 19:00 Bacterial urine culture [id number] NRG COLONY COUNT 10,000/ML - 100,000/ML NRG FTX;REPORTABLE SENSITIVITY REPORTED AT 1019, 3-18- 18 NRG URINE CULTURE RESULTS PLUS NRG FREE TEXT ENTRY 2 UNUSUAL RESISTANCE PATTERN DETEC MAC; NRG FREE TEXT ENTRY 3 ESBL IDENTIFIED. NR Bacterial susceptibility panel - 8 19:00 Gentamicin susceptibility test by minimum inhibitory c oncentration <= NRG Trimethoprim/sulfamethoxazole susceptibi lity test by minimum inhibitoryconcentration R NRG Ampicillin susceptibility test by minimum inhibitory c oncentration >= NRG Tobramycin susceptibility test by minimum inhibitory c oncentration <= NRG Cefazolin susceptibility test by minimum inhibitory co ncentration >= NRG Ceftriaxone susceptibility test by minimum inhibitory concentration R NRG Ampicillin/sulbactam susceptibility test by minimum inhibitory concentration R NRG Ciprofloxacin susceptibility test by minimum inhibitor y concentration >= NRG Meropenem susceptibility test by minimum inhibitory co ncentration <= NRG Nitrofurantoin susceptibility test by mi nimum inhibitory concentration <= NRG Aztreonam susceptibility test by minimum inhibitory co ncentration R NRG Extended spectrum beta lactamase (ESBL) producing bacteria susceptibility test by minimum inhibitory concentration + NR Comprehensive metabolic panel - 11/08/17 19:24 Serum or plasma sodium measurement (moles/volume) 136 mmol/L 135-145 Serum or plasma potassium measurement (moles/volume) 5.2 mmol/L 3.6-5.0 Serum or plasma chloride measurement (moles/volume) 106 mmol/L 98-107 Carbon dioxide 18 mmol/L 21-32 Serum or plasma anion gap determination (moles/volume) 12 mmol/L 5-14 Serum or plasma urea nitrogen measurement (mass/volume ) 27 mg/dL 7-18 Serum or plasma creatinine measurement (mass/volume) 1.29 mg/dL 0.60-1.30 Serum or plasma urea nitrogen/creatinine mass ratio 21 NRG Serum or plasma creatinine measurement w ith calculation of estimated glomerular filtration rate 44 NRG Serum or plasma glucose measurement (mass/volume) 90 mg/dL 70-105 Serum or plasma calcium measurement (mass/volume) 9.2 mg/dL 8.5-10.1 Serum or plasma total bilirubin measurement (mass/volu me) 0.2 mg/dL 0.1-1.0 Serum or plasma alkaline phosphatase rosetta surement (enzymatic activity/volume) 63 U/L 40-136 Serum or plasma aspartate aminotransfera se measurement (enzymatic activity/volume) 9 U/L 5-34 Serum or plasma alanine aminotransferase measurement (enzymatic activity/volume) 7 U/L 0-55 Serum or plasma protein measurement (mass/volume) 7.6 g/dL 6.4-8.2 Serum or plasma albumin measurement (mass/volume) 3.8 g/dL 3.2-4.5 Lipase - 11/08/17 19:24 Lipase 85 U/L 8-78 Complete blood count (CBC) with automate d white blood cell (WBC) differential - 11/30/17 21:40 Blood leukocytes automated count (number/volume) 9.2 10*3/uL 4.3-11.0 Blood erythrocytes automated count (number/volume) 3.86 10*6/uL 4.35-5.85 Venous blood hemoglobin measurement (mass/volume) 11.7 g/dL 11.5-16.0 Blood hematocrit (volume fraction) 39 % 35-52 Automated erythrocyte mean corpuscular volume 100 [foz_us] 80-99 Automated erythrocyte mean corpuscular h emoglobin (mass per erythrocyte) 30 pg 25-34 Automated erythrocyte mean corpuscular h emoglobin concentration measurement (mass/volume) 30 g/dL 32-36 Automated erythrocyte distribution width ratio 16. 2 % 10.0- 14.5 Automated blood platelet count (count/volume) 213 10*3/uL 130-400 Automated blood platelet mean volume measurement 10.7 [foz_us] 7.4-10.4 Automated blood neutrophils/100 leukocytes 71 % 42-75 Automated blood lymphocytes/100 leukocytes 14 % 12-44 Blood monocytes/100 leukocytes 13 % 0-12 Automated blood eosinophils/100 leukocytes 1 % 0-10 Automated blood basophils/100 leukocytes 1 % 0-10 Blood neutrophils automated count (number/volume) 6.6 10*3 1.8-7.8 Blood lymphocytes automated count (number/volume) 1.3 10*3 1.0-4.0 Blood monocytes automated count (number/volume) 1. 2 10*3 0.0-1.0 Automated eosinophil count 0.1 10*3/uL 0 .0-0.3 Automated blood basophil count (count/volume) 0.1 10*3/uL 0.0-0.1 Comprehensive metabolic panel - 11/30/17 21:40 Serum or plasma sodium measurement (moles/volume) 135 mmol/L 135-145 Serum or plasma potassium measurement (moles/volume) 3.2 mmol/L 3.6-5.0 Serum or plasma chloride measurement (moles/volume) 111 mmol/L 98-107 Carbon dioxide 14 mmol/L 21-32 Serum or plasma anion gap determination (moles/volume) 10 mmol/L 5-14 Serum or plasma urea nitrogen measurement (mass/volume ) 35 mg/dL 7-18 Serum or plasma creatinine measurement (mass/volume) 1.55 mg/dL 0.60-1.30 Serum or plasma urea nitrogen/creatinine mass ratio 23 NRG Serum or plasma creatinine measurement w ith calculation of estimated glomerular filtration rate 36 NRG Serum or plasma glucose measurement (mass/volume) 154 mg/dL 70-105 Serum or plasma calcium measurement (mass/volume) 8.3 mg/dL 8.5-10.1 Serum or plasma total bilirubin measurement (mass/volu me) 0.2 mg/dL 0.1-1.0 Serum or plasma alkaline phosphatase rosetta surement (enzymatic activity/volume) 99 U/L 40-136 Serum or plasma aspartate aminotransfera se measurement (enzymatic activity/volume) 8 U/L 5-34 Serum or plasma alanine aminotransferase measurement (enzymatic activity/volume) < U/L 0-55 Serum or plasma protein measurement (mass/volume) 7.1 g/dL 6.4-8.2 Serum or plasma albumin measurement (mass/volume) 4.0 g/dL 3.2-4.5 Serum or plasma amylase measurement (enz ymatic activity/volume) - 11/30/17 21:40 Serum or plasma amylase measurement (enzymatic activit y/volume) 54 U/L 25-125 Lipase - 11/30/17 21:40 Lipase 92 U/L 8-78 Serum or plasma C reactive protein measu rement (mass/volume) - 11/30/17 21:40 Serum or plasma C reactive protein measurement (mass/v olume) 0.24 mg/dL 0.00-0.50 Complete urinalysis with reflex to cultu re - 11/30/17 22:11 Urine color determination YELLOW NRG Urine clarity determination CLEAR NR G Urine pH measurement by test strip 5 5-9 Specific gravity of urine by test strip 1.010 1.016-1.022 Urine protein assay by test strip, semi-quantitative 2+ NEGATIVE Urine glucose detection by automated test strip NE GATIVE NEGATIVE Erythrocytes detection in urine sediment by light micr oscopy NEGATIVE NEGATIVE Urine ketones detection by automated test strip NE GATIVE NEGATIVE Urine nitrite detection by test strip NEGATIVE NEGATIVE Urine total bilirubin detection by test strip NEGA TIVE NEGATIVE Urine urobilinogen measurement by automated test strip (mass/volume) NORMAL NORMAL Urine leukocyte esterase detection by dipstick 1+ NEGATIVE Automated urine sediment erythrocyte cou nt by microscopy (number/high power field) RARE NRG Automated urine sediment leukocyte count by microscopy (number/high power field) [HPF] NRG Bacteria detection in urine sediment by light microsco py FEW NRG Squamous epithelial cells detection in u rine sediment by light microscopy 5-10 NRG Crystals detection in urine sediment by light microsco py NONE NRG Casts detection in urine sediment by light microscopy PRESENT NRG Mucus detection in urine sediment by light microscopy NEGATIVE NRG Complete urinalysis with reflex to culture YES NRG Hyaline casts detection in urine sediment by light chelsy roscopy RARE NRG Renal epithelial cells detection in urin e sediment by light microscopy NONE NRG Granular casts detection in urine sediment by light mi croscopy 2-5 NRG Bacterial urine culture - 11/30/17 22:11 Bacterial urine culture [id number] NRG COLONY COUNT 10,000/ML - 100,000/ML NRG FREE TEXT ENTRY 2 MIXED GRAM POSITIVE ROBERT <10,00 0/ML NRG Complete blood count (CBC) with automate d white blood cell (WBC) differential - 12/01/17 04:15 Blood leukocytes automated count (number/volume) 11.1 10*3/uL 4.3-11.0 Blood erythrocytes automated count (number/volume) 3.52 10*6/uL 4.35-5.85 Venous blood hemoglobin measurement (mass/volume) 10.4 g/dL 11.5-16.0 Blood hematocrit (volume fraction) 36 % 35-52 Automated erythrocyte mean corpuscular volume 101 [foz_us] 80-99 Automated erythrocyte mean corpuscular h emoglobin (mass per erythrocyte) 30 pg 25-34 Automated erythrocyte mean corpuscular h emoglobin concentration measurement (mass/volume) 29 g/dL 32-36 Automated erythrocyte distribution width ratio 16. 2 % 10.0- 14.5 Automated blood platelet count (count/volume) 195 10*3/uL 130-400 Automated blood platelet mean volume measurement 10.6 [foz_us] 7.4-10.4 Automated blood neutrophils/100 leukocytes 67 % 42-75 Automated blood lymphocytes/100 leukocytes 16 % 12-44 Blood monocytes/100 leukocytes 16 % 0-12 Automated blood eosinophils/100 leukocytes 1 % 0-10 Automated blood basophils/100 leukocytes 1 % 0-10 Blood neutrophils automated count (number/volume) 7.4 10*3 1.8-7.8 Blood lymphocytes automated count (number/volume) 1.8 10*3 1.0-4.0 Blood monocytes automated count (number/volume) 1. 7 10*3 0.0-1.0 Automated eosinophil count 0.1 10*3/uL 0 .0-0.3 Automated blood basophil count (count/volume) 0.1 10*3/uL 0.0-0.1 Comprehensive metabolic panel - 12/01/17 04:15 Serum or plasma sodium measurement (moles/volume) 136 mmol/L 135-145 Serum or plasma potassium measurement (moles/volume) 3.7 mmol/L 3.6-5.0 Serum or plasma chloride measurement (moles/volume) 116 mmol/L 98-107 Carbon dioxide 13 mmol/L 21-32 Serum or plasma anion gap determination (moles/volume) 7 mmol/L 5-14 Serum or plasma urea nitrogen measurement (mass/volume ) 29 mg/dL 7-18 Serum or plasma creatinine measurement (mass/volume) 1.19 mg/dL 0.60-1.30 Serum or plasma urea nitrogen/creatinine mass ratio 24 NRG Serum or plasma creatinine measurement w ith calculation of estimated glomerular filtration rate 48 NRG Serum or plasma glucose measurement (mass/volume) 85 mg/dL 70-105 Serum or plasma calcium measurement (mass/volume) 8.0 mg/dL 8.5-10.1 Serum or plasma total bilirubin measurement (mass/volu me) 0.1 mg/dL 0.1-1.0 Serum or plasma alkaline phosphatase rosetta surement (enzymatic activity/volume) 86 U/L 40-136 Serum or plasma aspartate aminotransfera se measurement (enzymatic activity/volume) 7 U/L 5-34 Serum or plasma alanine aminotransferase measurement (enzymatic activity/volume) < U/L 0-55 Serum or plasma protein measurement (mass/volume) 6.3 g/dL 6.4-8.2 Serum or plasma albumin measurement (mass/volume) 3.5 g/dL 3.2-4.5 Capillary blood glucose measurement by g lucometer (mass/volume) - 12/01/17 15:53 Capillary blood glucose measurement by glucometer (mas s/volume) 86 mg/dL 70-110 Capillary blood glucose measurement by g lucometer (mass/volume) - 12/01/17 20:24 Capillary blood glucose measurement by glucometer (mas s/volume) 87 mg/dL 70-110 Capillary blood glucose measurement by g lucometer (mass/volume) - 12/02/17 05:22 Capillary blood glucose measurement by glucometer (mas s/volume) 90 mg/dL 70-110 Complete blood count (CBC) with automate d white blood cell (WBC) differential - 12/02/17 06:22 Blood leukocytes automated count (number/volume) 5.7 10*3/uL 4.3-11.0 Blood erythrocytes automated count (number/volume) 3.36 10*6/uL 4.35-5.85 Venous blood hemoglobin measurement (mass/volume) 10.0 g/dL 11.5-16.0 Blood hematocrit (volume fraction) 33 % 35-52 Automated erythrocyte mean corpuscular volume 100 [foz_us] 80-99 Automated erythrocyte mean corpuscular h emoglobin (mass per erythrocyte) 30 pg 25-34 Automated erythrocyte mean corpuscular h emoglobin concentration measurement (mass/volume) 30 g/dL 32-36 Automated erythrocyte distribution width ratio 16. 1 % 10.0- 14.5 Automated blood platelet count (count/volume) 152 10*3/uL 130-400 Automated blood platelet mean volume measurement 9.5 [foz_us] 7.4-10.4 Automated blood neutrophils/100 leukocytes 45 % 42-75 Automated blood lymphocytes/100 leukocytes 30 % 12-44 Blood monocytes/100 leukocytes 18 % 0-12 Automated blood eosinophils/100 leukocytes 6 % 0-10 Automated blood basophils/100 leukocytes 1 % 0-10 Blood neutrophils automated count (number/volume) 2.3 10*3 1.8-7.8 Blood lymphocytes automated count (number/volume) 1.6 10*3 1.0-4.0 Blood monocytes automated count (number/volume) 0. 9 10*3 0.0-1.0 Automated eosinophil count 0.3 10*3/uL 0 .0-0.3 Automated blood basophil count (count/volume) 0.1 10*3/uL 0.0-0.1 Whole blood basic metabolic panel - 05/13 06:22 Serum or plasma sodium measurement (moles/volume) 136 mmol/L 135-145 Serum or plasma potassium measurement (moles/volume) 4.3 mmol/L 3.6-5.0 Serum or plasma chloride measurement (moles/volume) 115 mmol/L 98-107 Carbon dioxide 14 mmol/L 21-32 Serum or plasma anion gap determination (moles/volume) 7 mmol/L 5-14 Serum or plasma urea nitrogen measurement (mass/volume ) 15 mg/dL 7-18 Serum or plasma creatinine measurement (mass/volume) 1.10 mg/dL 0.60-1.30 Serum or plasma urea nitrogen/creatinine mass ratio 14 NRG Serum or plasma creatinine measurement w ith calculation of estimated glomerular filtration rate 53 NRG Serum or plasma glucose measurement (mass/volume) 76 mg/dL 70-105 Serum or plasma calcium measurement (mass/volume) 8.3 mg/dL 8.5-10.1 Capillary blood glucose measurement by g lucometer (mass/volume) - 12/02/17 11:18 Capillary blood glucose measurement by glucometer (mas s/volume) 91 mg/dL 70-110 Complete blood count (CBC) with automate d white blood cell (WBC) differential - 12/07/17 17:14 Blood leukocytes automated count (number/volume) 10.0 10*3/uL 4.3-11.0 Blood erythrocytes automated count (number/volume) 3.62 10*6/uL 4.35-5.85 Venous blood hemoglobin measurement (mass/volume) 10.8 g/dL 11.5-16.0 Blood hematocrit (volume fraction) 37 % 35-52 Automated erythrocyte mean corpuscular volume 101 [foz_us] 80-99 Automated erythrocyte mean corpuscular h emoglobin (mass per erythrocyte) 30 pg 25-34 Automated erythrocyte mean corpuscular h emoglobin concentration measurement (mass/volume) 30 g/dL 32-36 Automated erythrocyte distribution width ratio 16. 7 % 10.0- 14.5 Automated blood platelet count (count/volume) 222 10*3/uL 130-400 Automated blood platelet mean volume measurement 10.6 [foz_us] 7.4-10.4 Automated blood neutrophils/100 leukocytes 77 % 42-75 Automated blood lymphocytes/100 leukocytes 14 % 12-44 Blood monocytes/100 leukocytes 8 % 0-12 Automated blood eosinophils/100 leukocytes 1 % 0-10 Automated blood basophils/100 leukocytes 1 % 0-10 Blood neutrophils automated count (number/volume) 7.7 10*3 1.8-7.8 Blood lymphocytes automated count (number/volume) 1.3 10*3 1.0-4.0 Blood monocytes automated count (number/volume) 0. 8 10*3 0.0-1.0 Automated eosinophil count 0.1 10*3/uL 0 .0-0.3 Automated blood basophil count (count/volume) 0.1 10*3/uL 0.0-0.1 Comprehensive metabolic panel - 12/07/17 17:14 Serum or plasma sodium measurement (moles/volume) 138 mmol/L 135-145 Serum or plasma potassium measurement (moles/volume) 4.6 mmol/L 3.6-5.0 Serum or plasma chloride measurement (moles/volume) 109 mmol/L 98-107 Carbon dioxide 19 mmol/L 21-32 Serum or plasma anion gap determination (moles/volume) 10 mmol/L 5-14 Serum or plasma urea nitrogen measurement (mass/volume ) 16 mg/dL 7-18 Serum or plasma creatinine measurement (mass/volume) 1.13 mg/dL 0.60-1.30 Serum or plasma urea nitrogen/creatinine mass ratio 14 NRG Serum or plasma creatinine measurement w ith calculation of estimated glomerular filtration rate 51 NRG Serum or plasma glucose measurement (mass/volume) 97 mg/dL 70-105 Serum or plasma calcium measurement (mass/volume) 9.1 mg/dL 8.5-10.1 Serum or plasma total bilirubin measurement (mass/volu me) 0.2 mg/dL 0.1-1.0 Serum or plasma alkaline phosphatase rosetta surement (enzymatic activity/volume) 73 U/L 40-136 Serum or plasma aspartate aminotransfera se measurement (enzymatic activity/volume) 8 U/L 5-34 Serum or plasma alanine aminotransferase measurement (enzymatic activity/volume) 7 U/L 0-55 Serum or plasma protein measurement (mass/volume) 6.9 g/dL 6.4-8.2 Serum or plasma albumin measurement (mass/volume) 3.6 g/dL 3.2-4.5 Complete urinalysis with reflex to cultu re - 12/07/17 17:50 Urine color determination YELLOW NRG Urine clarity determination CLEAR NR G Urine pH measurement by test strip 6 5-9 Specific gravity of urine by test strip 1.015 1.016-1.022 Urine protein assay by test strip, semi-quantitative 1+ NEGATIVE Urine glucose detection by automated test strip NE GATIVE NEGATIVE Erythrocytes detection in urine sediment by light micr oscopy NEGATIVE NEGATIVE Urine ketones detection by automated test strip NE GATIVE NEGATIVE Urine nitrite detection by test strip NEGATIVE NEGATIVE Urine total bilirubin detection by test strip NEGA TIVE NEGATIVE Urine urobilinogen measurement by automated test strip (mass/volume) NORMAL NORMAL Urine leukocyte esterase detection by dipstick NEG ATIVE NEGATIVE Automated urine sediment erythrocyte cou nt by microscopy (number/high power field) NONE NRG Automated urine sediment leukocyte count by microscopy (number/high power field) [HPF] NRG Bacteria detection in urine sediment by light microsco py NEGATIVE NRG Squamous epithelial cells detection in u rine sediment by light microscopy 2-5 NRG Crystals detection in urine sediment by light microsco py NONE NRG Casts detection in urine sediment by light microscopy NONE NRG Mucus detection in urine sediment by light microscopy NEGATIVE NRG Complete urinalysis with reflex to culture NO NRG Urine drug screening test - 12/07/17 17: 50 Urine phencyclidine detection by screening method NEGATIVE NEGATIVE Urine benzodiazepines detection by screening method NEGATIVE NEGATIVE Urine cocaine detection NEGATIVE NEGATI VE Urine amphetamines detection by screening method N EGATIVE NEGATIVE Urine methamphetamine detection by screening method NEGATIVE NEGATIVE Urine cannabinoids detection by screening method N EGATIVE NEGATIVE Urine opiates detection by screening method NEGATI VE NEGATIVE Urine barbiturates detection NEGATIVE N EGATIVE Screening urine tricyclic antidepressants detection NEGATIVE NEGATIVE Urine methadone detection by screening method NEGA TIVE NEGATIVE Urine oxycodone detection NEGATIVE NEGA TIVE Urine propoxyphene detection NEGATIVE N EGATIVE Complete blood count (CBC) with automate d white blood cell (WBC) differential - 03/09/18 14:10 Blood leukocytes automated count (number/volume) 13.3 10*3/uL 4.3-11.0 Blood erythrocytes automated count (number/volume) 3.80 10*6/uL 4.35-5.85 Venous blood hemoglobin measurement (mass/volume) 11.9 g/dL 11.5-16.0 Blood hematocrit (volume fraction) 41 % 35-52 Automated erythrocyte mean corpuscular volume 108 [foz_us] 80-99 Automated erythrocyte mean corpuscular h emoglobin (mass per erythrocyte) 31 pg 25-34 Automated erythrocyte mean corpuscular h emoglobin concentration measurement (mass/volume) 29 g/dL 32-36 Automated erythrocyte distribution width ratio 17. 9 % 10.0- 14.5 Automated blood platelet count (count/volume) 213 10*3/uL 130-400 Automated blood platelet mean volume measurement 10.3 [foz_us] 7.4-10.4 Automated blood neutrophils/100 leukocytes 82 % 42-75 Automated blood lymphocytes/100 leukocytes 8 % 12-44 Blood monocytes/100 leukocytes 10 % 0-12 Automated blood eosinophils/100 leukocytes 0 % 0-10 Automated blood basophils/100 leukocytes 0 % 0-10 Blood neutrophils automated count (number/volume) 10.8 10*3 1.8-7.8 Blood lymphocytes automated count (number/volume) 1.0 10*3 1.0-4.0 Blood monocytes automated count (number/volume) 1. 3 10*3 0.0-1.0 Automated eosinophil count 0.0 10*3/uL 0 .0-0.3 Automated blood basophil count (count/volume) 0.0 10*3/uL 0.0-0.1 Comprehensive metabolic panel - 03/09/18 14:10 Serum or plasma sodium measurement (moles/volume) 138 mmol/L 135-145 Serum or plasma potassium measurement (moles/volume) 5.1 mmol/L 3.6-5.0 Serum or plasma chloride measurement (moles/volume) 112 mmol/L 98-107 Carbon dioxide 18 mmol/L 21-32 Serum or plasma anion gap determination (moles/volume) 8 mmol/L 5-14 Serum or plasma urea nitrogen measurement (mass/volume ) 33 mg/dL 7-18 Serum or plasma creatinine measurement (mass/volume) 2.30 mg/dL 0.60-1.30 Serum or plasma urea nitrogen/creatinine mass ratio 14 NRG Serum or plasma creatinine measurement w ith calculation of estimated glomerular filtration rate 23 NRG Serum or plasma glucose measurement (mass/volume) 98 mg/dL 70-105 Serum or plasma calcium measurement (mass/volume) 9.6 mg/dL 8.5-10.1 Serum or plasma total bilirubin measurement (mass/volu me) 0.3 mg/dL 0.1-1.0 Serum or plasma alkaline phosphatase rosetta surement (enzymatic activity/volume) 77 U/L 40-136 Serum or plasma aspartate aminotransfera se measurement (enzymatic activity/volume) 17 U/L 5-34 Serum or plasma alanine aminotransferase measurement (enzymatic activity/volume) 9 U/L 0-55 Serum or plasma protein measurement (mass/volume) 7.2 g/dL 6.4-8.2 Serum or plasma albumin measurement (mass/volume) 4.2 g/dL 3.2-4.5 Serum or plasma salicylates measurement (mass/volume) - 03/09/18 14:10 Serum or plasma salicylates measurement (mass/volume) < mg/dL 5.0-20.0 Serum or plasma acetaminophen measuremen t (mass/volume) - 03/09/18 14:10 Serum or plasma acetaminophen measurement (mass/volume ) < ug/mL 10-30 Serum or plasma ethanol measurement (mas s/volume) - 03/09/18 14:10 Serum or plasma ethanol measurement (mass/volume) < mg/dL <10 Complete urinalysis with reflex to cultu re - 03/09/18 14:22 Urine color determination YELLOW NRG Urine clarity determination CLEAR NR G Urine pH measurement by test strip 7 5-9 Specific gravity of urine by test strip 1.010 1.016-1.022 Urine protein assay by test strip, semi-quantitative 2+ NEGATIVE Urine glucose detection by automated test strip NE GATIVE NEGATIVE Erythrocytes detection in urine sediment by light micr oscopy 1+ NEGATIVE Urine ketones detection by automated test strip NE GATIVE NEGATIVE Urine nitrite detection by test strip NEGATIVE NEGATIVE Urine total bilirubin detection by test strip NEGA TIVE NEGATIVE Urine urobilinogen measurement by automated test strip (mass/volume) NORMAL NORMAL Urine leukocyte esterase detection by dipstick 2+ NEGATIVE Automated urine sediment erythrocyte cou nt by microscopy (number/high power field) NONE NRG Automated urine sediment leukocyte count by microscopy (number/high power field) [HPF] NRG Bacteria detection in urine sediment by light microsco py TRACE NRG Squamous epithelial cells detection in u rine sediment by light microscopy RARE NRG Crystals detection in urine sediment by light microsco py NONE NRG Casts detection in urine sediment by light microscopy PRESENT NRG Mucus detection in urine sediment by light microscopy NEGATIVE NRG Complete urinalysis with reflex to culture YES NRG Granular casts detection in urine sediment by light mi croscopy 5-10 NRG Urine drug screening test - 03/09/18 14: 22 Urine phencyclidine detection by screening method NEGATIVE NEGATIVE Urine benzodiazepines detection by screening method NEGATIVE NEGATIVE Urine cocaine detection NEGATIVE NEGATI VE Urine amphetamines detection by screening method N EGATIVE NEGATIVE Urine methamphetamine detection by screening method NEGATIVE NEGATIVE Urine cannabinoids detection by screening method P OSITIVE NEGATIVE Urine opiates detection by screening method POSITI VE NEGATIVE Urine barbiturates detection NEGATIVE N EGATIVE Screening urine tricyclic antidepressants detection NEGATIVE NEGATIVE Urine methadone detection by screening method NEGA TIVE NEGATIVE Urine oxycodone detection NEGATIVE NEGA TIVE Urine propoxyphene detection NEGATIVE N EGATIVE Bacterial urine culture - 03/09/18 14:22 Bacterial urine culture NG NRG Methicillin resistant Staphylococcus aur eus (MRSA) screening culture - 03/09/18 16:25 Methicillin resistant Staphylococcus aureus (MRSA) scr eening culture NEG NRG Complete blood count (CBC) with automate d white blood cell (WBC) differential - 03/10/18 03:10 Blood leukocytes automated count (number/volume) 9.6 10*3/uL 4.3-11.0 Blood erythrocytes automated count (number/volume) 3.48 10*6/uL 4.35-5.85 Venous blood hemoglobin measurement (mass/volume) 11.0 g/dL 11.5-16.0 Blood hematocrit (volume fraction) 37 % 35-52 Automated erythrocyte mean corpuscular volume 107 [foz_us] 80-99 Automated erythrocyte mean corpuscular h emoglobin (mass per erythrocyte) 32 pg 25-34 Automated erythrocyte mean corpuscular h emoglobin concentration measurement (mass/volume) 30 g/dL 32-36 Automated erythrocyte distribution width ratio 17. 4 % 10.0- 14.5 Automated blood platelet count (count/volume) 162 10*3/uL 130-400 Automated blood platelet mean volume measurement 10.5 [foz_us] 7.4-10.4 Automated blood neutrophils/100 leukocytes 73 % 42-75 Automated blood lymphocytes/100 leukocytes 12 % 12-44 Blood monocytes/100 leukocytes 13 % 0-12 Automated blood eosinophils/100 leukocytes 1 % 0-10 Automated blood basophils/100 leukocytes 1 % 0-10 Blood neutrophils automated count (number/volume) 7.1 10*3 1.8-7.8 Blood lymphocytes automated count (number/volume) 1.1 10*3 1.0-4.0 Blood monocytes automated count (number/volume) 1. 3 10*3 0.0-1.0 Automated eosinophil count 0.1 10*3/uL 0 .0-0.3 Automated blood basophil count (count/volume) 0.1 10*3/uL 0.0-0.1 Whole blood basic metabolic panel - 02/23 02/10 03:10 Serum or plasma sodium measurement (moles/volume) 140 mmol/L 135-145 Serum or plasma potassium measurement (moles/volume) 4.2 mmol/L 3.6-5.0 Serum or plasma chloride measurement (moles/volume) 114 mmol/L 98-107 Carbon dioxide 18 mmol/L 21-32 Serum or plasma anion gap determination (moles/volume) 8 mmol/L 5-14 Serum or plasma urea nitrogen measurement (mass/volume ) 24 mg/dL 7-18 Serum or plasma creatinine measurement (mass/volume) 1.57 mg/dL 0.60-1.30 Serum or plasma urea nitrogen/creatinine mass ratio 15 NRG Serum or plasma creatinine measurement w ith calculation of estimated glomerular filtration rate 35 NRG Serum or plasma glucose measurement (mass/volume) 86 mg/dL 70-105 Serum or plasma calcium measurement (mass/volume) 8.7 mg/dL 8.5-10.1 Serum or plasma phosphate measurement (m ass/volume) - 03/10/18 03:10 Serum or plasma phosphate measurement (mass/volume) 3.3 mg/dL 2.3-4.7 Magnesium - 03/10/18 03:10 Magnesium 2.0 mg/dL 1.8-2.4 Complete blood count (CBC) with automate d white blood cell (WBC) differential - 04/18/18 18:00 Blood leukocytes automated count (number/volume) 6.1 10*3/uL 4.3-11.0 Blood erythrocytes automated count (number/volume) 3.89 10*6/uL 4.35-5.85 Venous blood hemoglobin measurement (mass/volume) 12.8 g/dL 11.5-16.0 Blood hematocrit (volume fraction) 41 % 35-52 Automated erythrocyte mean corpuscular volume 104 [foz_us] 80-99 Automated erythrocyte mean corpuscular h emoglobin (mass per erythrocyte) 33 pg 25-34 Automated erythrocyte mean corpuscular h emoglobin concentration measurement (mass/volume) 32 g/dL 32-36 Automated erythrocyte distribution width ratio 16. 3 % 10.0- 14.5 Automated blood platelet count (count/volume) 214 10*3/uL 130-400 Automated blood platelet mean volume measurement 10.0 [foz_us] 7.4-10.4 Automated blood neutrophils/100 leukocytes 58 % 42-75 Automated blood lymphocytes/100 leukocytes 21 % 12-44 Blood monocytes/100 leukocytes 16 % 0-12 Automated blood eosinophils/100 leukocytes 4 % 0-10 Automated blood basophils/100 leukocytes 1 % 0-10 Blood neutrophils automated count (number/volume) 3.5 10*3 1.8-7.8 Blood lymphocytes automated count (number/volume) 1.3 10*3 1.0-4.0 Blood monocytes automated count (number/volume) 1. 0 10*3 0.0-1.0 Automated eosinophil count 0.2 10*3/uL 0 .0-0.3 Automated blood basophil count (count/volume) 0.1 10*3/uL 0.0-0.1 Comprehensive metabolic panel - 04/18/18 18:00 Serum or plasma sodium measurement (moles/volume) 137 mmol/L 135-145 Serum or plasma potassium measurement (moles/volume) 4.3 mmol/L 3.6-5.0 Serum or plasma chloride measurement (moles/volume) 114 mmol/L 98-107 Carbon dioxide 15 mmol/L 21-32 Serum or plasma anion gap determination (moles/volume) 8 mmol/L 5-14 Serum or plasma urea nitrogen measurement (mass/volume ) 23 mg/dL 7-18 Serum or plasma creatinine measurement (mass/volume) 1.57 mg/dL 0.60-1.30 Serum or plasma urea nitrogen/creatinine mass ratio 15 NRG Serum or plasma creatinine measurement w ith calculation of estimated glomerular filtration rate 35 NRG Serum or plasma glucose measurement (mass/volume) 100 mg/dL 70-105 Serum or plasma calcium measurement (mass/volume) 9.1 mg/dL 8.5-10.1 Serum or plasma total bilirubin measurement (mass/volu me) 0.2 mg/dL 0.1-1.0 Serum or plasma alkaline phosphatase rosetta surement (enzymatic activity/volume) 77 U/L 40-136 Serum or plasma aspartate aminotransfera se measurement (enzymatic activity/volume) 9 U/L 5-34 Serum or plasma alanine aminotransferase measurement (enzymatic activity/volume) 9 U/L 0-55 Serum or plasma protein measurement (mass/volume) 7.0 g/dL 6.4-8.2 Serum or plasma albumin measurement (mass/volume) 3.9 g/dL 3.2-4.5 CALCIUM CORRECTED 9.2 mg/dL 8.5-10.1 Lipase - 04/18/18 18:00 Lipase 71 U/L 8-78 Complete urinalysis with reflex to cultu re - 04/18/18 18:36 Urine color determination YELLOW NRG Urine clarity determination CLEAR NR G Urine pH measurement by test strip 5 5-9 Specific gravity of urine by test strip 1.015 1.016-1.022 Urine protein assay by test strip, semi-quantitative 2+ NEGATIVE Urine glucose detection by automated test strip NE GATIVE NEGATIVE Erythrocytes detection in urine sediment by light micr oscopy NEGATIVE NEGATIVE Urine ketones detection by automated test strip NE GATIVE NEGATIVE Urine nitrite detection by test strip NEGATIVE NEGATIVE Urine total bilirubin detection by test strip NEGA TIVE NEGATIVE Urine urobilinogen measurement by automated test strip (mass/volume) NORMAL NORMAL Urine leukocyte esterase detection by dipstick 3+ NEGATIVE Automated urine sediment erythrocyte cou nt by microscopy (number/high power field) NONE NRG Automated urine sediment leukocyte count by microscopy (number/high power field) [HPF] NRG Bacteria detection in urine sediment by light microsco py FEW NRG Squamous epithelial cells detection in u rine sediment by light microscopy 5-10 NRG Crystals detection in urine sediment by light microsco py NONE NRG Casts detection in urine sediment by light microscopy NONE NRG Mucus detection in urine sediment by light microscopy NEGATIVE NRG Complete urinalysis with reflex to culture YES NRG Urine drug screening test - 04/18/18 18: 36 Urine phencyclidine detection by screening method NEGATIVE NEGATIVE Urine benzodiazepines detection by screening method NEGATIVE NEGATIVE Urine cocaine detection NEGATIVE NEGATI VE Urine amphetamines detection by screening method N EGATIVE NEGATIVE Urine methamphetamine detection by screening method NEGATIVE NEGATIVE Urine cannabinoids detection by screening method N EGATIVE NEGATIVE Urine opiates detection by screening method NEGATI VE NEGATIVE Urine barbiturates detection NEGATIVE N EGATIVE Screening urine tricyclic antidepressants detection NEGATIVE NEGATIVE Urine methadone detection by screening method NEGA TIVE NEGATIVE Urine oxycodone detection NEGATIVE NEGA TIVE Urine propoxyphene detection NEGATIVE N EGATIVE Bacterial urine culture - 04/18/18 18:36 Bacterial urine culture SEE COMMEN NRG COLONY COUNT . NRG Complete blood count (CBC) with automate d white blood cell (WBC) differential - 08/16/18 21:20 Blood leukocytes automated count (number/volume) 10.0 10*3/uL 4.3-11.0 Blood erythrocytes automated count (number/volume) 3.59 10*6/uL 4.35-5.85 Venous blood hemoglobin measurement (mass/volume) 12.6 g/dL 11.5-16.0 Blood hematocrit (volume fraction) 38 % 35-52 Automated erythrocyte mean corpuscular volume 106 [foz_us] 80-99 Automated erythrocyte mean corpuscular h emoglobin (mass per erythrocyte) 35 pg 25-34 Automated erythrocyte mean corpuscular h emoglobin concentration measurement (mass/volume) 33 g/dL 32-36 Automated erythrocyte distribution width ratio 16. 7 % 10.0- 14.5 Automated blood platelet count (count/volume) 226 10*3/uL 130-400 Automated blood platelet mean volume measurement 9.9 [foz_us] 7.4-10.4 Automated blood neutrophils/100 leukocytes 74 % 42-75 Automated blood lymphocytes/100 leukocytes 15 % 12-44 Blood monocytes/100 leukocytes 8 % 0-12 Automated blood eosinophils/100 leukocytes 2 % 0-10 Automated blood basophils/100 leukocytes 1 % 0-10 Blood neutrophils automated count (number/volume) 7.4 10*3 1.8-7.8 Blood lymphocytes automated count (number/volume) 1.5 10*3 1.0-4.0 Blood monocytes automated count (number/volume) 0. 8 10*3 0.0-1.0 Automated eosinophil count 0.2 10*3/uL 0 .0-0.3 Automated blood basophil count (count/volume) 0.1 10*3/uL 0.0-0.1 Comprehensive metabolic panel - 08/16/18 21:20 Serum or plasma sodium measurement (moles/volume) 138 mmol/L 135-145 Serum or plasma potassium measurement (moles/volume) 3.5 mmol/L 3.6-5.0 Serum or plasma chloride measurement (moles/volume) 112 mmol/L 98-107 Carbon dioxide 13 mmol/L 21-32 Serum or plasma anion gap determination (moles/volume) 13 mmol/L 5-14 Serum or plasma urea nitrogen measurement (mass/volume ) 28 mg/dL 7-18 Serum or plasma creatinine measurement (mass/volume) 1.61 mg/dL 0.60-1.30 Serum or plasma urea nitrogen/creatinine mass ratio 17 NRG Serum or plasma creatinine measurement w ith calculation of estimated glomerular filtration rate 34 NRG Serum or plasma glucose measurement (mass/volume) 111 mg/dL 70-105 Serum or plasma calcium measurement (mass/volume) 8.7 mg/dL 8.5-10.1 Serum or plasma total bilirubin measurement (mass/volu me) 0.2 mg/dL 0.1-1.0 Serum or plasma alkaline phosphatase rosetta surement (enzymatic activity/volume) 69 U/L 40-136 Serum or plasma aspartate aminotransfera se measurement (enzymatic activity/volume) 9 U/L 5-34 Serum or plasma alanine aminotransferase measurement (enzymatic activity/volume) 9 U/L 0-55 Serum or plasma protein measurement (mass/volume) 6.0 g/dL 6.4-8.2 Serum or plasma albumin measurement (mass/volume) 3.7 g/dL 3.2-4.5 CALCIUM CORRECTED 8.9 mg/dL 8.5-10.1 Serum or plasma amylase measurement (enz ymatic activity/volume) - 08/16/18 21:20 Serum or plasma amylase measurement (enzymatic activit y/volume) 85 U/L 25-125 Lipase - 08/16/18 21:20 Lipase 153 U/L 8-78 Serum or plasma C reactive protein measu rement (mass/volume) - 08/16/18 21:20 Serum or plasma C reactive protein measurement (mass/v olume) 0.05 mg/dL 0.00-0.50 Serum or plasma ethanol measurement (mas s/volume) - 08/16/18 21:20 Serum or plasma ethanol measurement (mass/volume) < mg/dL <10 Complete urinalysis with reflex to cultu re - 08/16/18 22:31 Urine color determination YELLOW NRG Urine clarity determination SLIGHTLY CLOUDY NRG Urine pH measurement by test strip 5 5-9 Specific gravity of urine by test strip 1.015 1.016-1.022 Urine protein assay by test strip, semi-quantitative 2+ NEGATIVE Urine glucose detection by automated test strip NE GATIVE NEGATIVE Erythrocytes detection in urine sediment by light micr oscopy 1+ NEGATIVE Urine ketones detection by automated test strip NE GATIVE NEGATIVE Urine nitrite detection by test strip NEGATIVE NEGATIVE Urine total bilirubin detection by test strip NEGA TIVE NEGATIVE Urine urobilinogen measurement by automated test strip (mass/volume) NORMAL NORMAL Urine leukocyte esterase detection by dipstick NEG ATIVE NEGATIVE Automated urine sediment erythrocyte cou nt by microscopy (number/high power field) [HPF] NRG Automated urine sediment leukocyte count by microscopy (number/high power field) [HPF] NRG Bacteria detection in urine sediment by light microsco py NEGATIVE NRG Squamous epithelial cells detection in u rine sediment by light microscopy 2-5 NRG Crystals detection in urine sediment by light microsco py NONE NRG Casts detection in urine sediment by light microscopy NONE NRG Mucus detection in urine sediment by light microscopy NEGATIVE NRG Complete urinalysis with reflex to culture NO NRG Urine drug screening test - 08/16/18 22: 31 Urine phencyclidine detection by screening method NEGATIVE NEGATIVE Urine benzodiazepines detection by screening method NEGATIVE NEGATIVE Urine cocaine detection NEGATIVE NEGATI VE Urine amphetamines detection by screening method N EGATIVE NEGATIVE Urine methamphetamine detection by screening method NEGATIVE NEGATIVE Urine cannabinoids detection by screening method P OSITIVE NEGATIVE Urine opiates detection by screening method POSITI VE NEGATIVE Urine barbiturates detection NEGATIVE N EGATIVE Screening urine tricyclic antidepressants detection NEGATIVE NEGATIVE Urine methadone detection by screening method NEGA TIVE NEGATIVE Urine oxycodone detection NEGATIVE NEGA TIVE Urine propoxyphene detection NEGATIVE N EGATIVE Complete blood count (CBC) with automate d white blood cell (WBC) differential - 10/05/18 15:23 Blood leukocytes automated count (number/volume) 10.1 10*3/uL 4.3-11.0 Blood erythrocytes automated count (number/volume) 4.00 10*6/uL 4.35-5.85 Venous blood hemoglobin measurement (mass/volume) 13.4 g/dL 11.5-16.0 Blood hematocrit (volume fraction) 44 % 35-52 Automated erythrocyte mean corpuscular volume 111 [foz_us] 80-99 Automated erythrocyte mean corpuscular h emoglobin (mass per erythrocyte) 34 pg 25-34 Automated erythrocyte mean corpuscular h emoglobin concentration measurement (mass/volume) 30 g/dL 32-36 Automated erythrocyte distribution width ratio 15. 5 % 10.0- 14.5 Automated blood platelet count (count/volume) 185 10*3/uL 130-400 Automated blood platelet mean volume measurement 10.6 [foz_us] 7.4-10.4 Automated blood neutrophils/100 leukocytes 72 % 42-75 Automated blood lymphocytes/100 leukocytes 12 % 12-44 Blood monocytes/100 leukocytes 15 % 0-12 Automated blood eosinophils/100 leukocytes 1 % 0-10 Automated blood basophils/100 leukocytes 1 % 0-10 Blood neutrophils automated count (number/volume) 7.2 10*3 1.8-7.8 Blood lymphocytes automated count (number/volume) 1.2 10*3 1.0-4.0 Blood monocytes automated count (number/volume) 1. 5 10*3 0.0-1.0 Automated eosinophil count 0.1 10*3/uL 0 .0-0.3 Automated blood basophil count (count/volume) 0.1 10*3/uL 0.0-0.1 Comprehensive metabolic panel - 10/05/18 15:23 Serum or plasma sodium measurement (moles/volume) 140 mmol/L 135-145 Serum or plasma potassium measurement (moles/volume) 4.0 mmol/L 3.6-5.0 Serum or plasma chloride measurement (moles/volume) 110 mmol/L 98-107 Carbon dioxide 17 mmol/L 21-32 Serum or plasma anion gap determination (moles/volume) 13 mmol/L 5-14 Serum or plasma urea nitrogen measurement (mass/volume ) 21 mg/dL 7-18 Serum or plasma creatinine measurement (mass/volume) 1.34 mg/dL 0.60-1.30 Serum or plasma urea nitrogen/creatinine mass ratio 16 NRG Serum or plasma creatinine measurement w ith calculation of estimated glomerular filtration rate 42 NRG Serum or plasma glucose measurement (mass/volume) 119 mg/dL 70-105 Serum or plasma calcium measurement (mass/volume) 9.3 mg/dL 8.5-10.1 Serum or plasma total bilirubin measurement (mass/volu me) 0.2 mg/dL 0.1-1.0 Serum or plasma alkaline phosphatase rosetta surement (enzymatic activity/volume) 85 U/L 40-136 Serum or plasma aspartate aminotransfera se measurement (enzymatic activity/volume) 14 U/L 5-34 Serum or plasma alanine aminotransferase measurement (enzymatic activity/volume) 9 U/L 0-55 Serum or plasma protein measurement (mass/volume) 7.7 g/dL 6.4-8.2 Serum or plasma albumin measurement (mass/volume) 4.3 g/dL 3.2-4.5 CALCIUM CORRECTED 9.1 mg/dL 8.5-10.1 Serum or plasma troponin i.cardiac measu rement (mass/volume) - 10/05/18 15:23 Serum or plasma troponin i.cardiac measurement (mass/v olume) < ng/mL <0.028 Serum or plasma lithium measurement (mol es/volume) - 10/05/18 15:23 BNP level 32.8 pg/mL <100.0 Bacterial blood culture - 10/05/18 15:23 Bacterial blood culture NG NRG Arterial blood gas measurement - 9 15:43 Blood pCO2 43 mm[Hg] 35-45 Blood pO2 46 mm[Hg] 79-93 Arterial blood bicarbonate measurement (moles/volume) 18 mmol/L 23-27 Arterial blood base excess by calculation -8.0 mmo l/L -2.5-2.5 Arterial blood oxygen saturation measurement 85 % 94-100 * Inhaled oxygen flow rate 2L NRG Arterial blood pH measurement with patient temperature correction 7.25 7.37-7.43 Arterial blood carbon dioxide, total measurement (mole s/volume) 19.2 mmol/L 21.0-31.0 Body site RT RAD NRG Assessment of wrist artery patency prior to arterial p uncture YES-POS NRG Setting of ventilation mode NO NR G Measurement of body temperature 98.8 NRG Arterial blood gas measurement - 9 17:20 Blood pCO2 43 mm[Hg] 35-45 Blood pO2 71 mm[Hg] 79-93 Arterial blood bicarbonate measurement (moles/volume) 17 mmol/L 23-27 Arterial blood base excess by calculation -9.9 mmo l/L -2.5-2.5 Arterial blood oxygen saturation measurement 95 % 94-100 * Inhaled oxygen flow rate 2L NRG Arterial blood pH measurement with patient temperature correction 7.21 7.37-7.43 Arterial blood carbon dioxide, total measurement (mole s/volume) 18.0 mmol/L 21.0-31.0 Body site RT RAD NRG Assessment of wrist artery patency prior to arterial p uncture YES-POS NRG Setting of ventilation mode NO NR G Measurement of body temperature 97.9 NRG Complete blood count (CBC) with automate d white blood cell (WBC) differential - 10/06/18 05:40 Blood leukocytes automated count (number/volume) 4.6 10*3/uL 4.3-11.0 Blood erythrocytes automated count (number/volume) 3.26 10*6/uL 4.35-5.85 Venous blood hemoglobin measurement (mass/volume) 10.8 g/dL 11.5-16.0 Blood hematocrit (volume fraction) 36 % 35-52 Automated erythrocyte mean corpuscular volume 110 [foz_us] 80-99 Automated erythrocyte mean corpuscular h emoglobin (mass per erythrocyte) 33 pg 25-34 Automated erythrocyte mean corpuscular h emoglobin concentration measurement (mass/volume) 30 g/dL 32-36 Automated erythrocyte distribution width ratio 15. 5 % 10.0- 14.5 Automated blood platelet count (count/volume) 171 10*3/uL 130-400 Automated blood platelet mean volume measurement 10.4 [foz_us] 7.4-10.4 Automated blood neutrophils/100 leukocytes 91 % 42-75 Automated blood lymphocytes/100 leukocytes 8 % 12-44 Blood monocytes/100 leukocytes 2 % 0-12 Automated blood eosinophils/100 leukocytes 0 % 0-10 Automated blood basophils/100 leukocytes 0 % 0-10 Blood neutrophils automated count (number/volume) 4.1 10*3 1.8-7.8 Blood lymphocytes automated count (number/volume) 0.3 10*3 1.0-4.0 Blood monocytes automated count (number/volume) 0. 1 10*3 0.0-1.0 Automated eosinophil count 0.0 10*3/uL 0 .0-0.3 Automated blood basophil count (count/volume) 0.0 10*3/uL 0.0-0.1 Whole blood basic metabolic panel - 09/26 09/13 05:40 Serum or plasma sodium measurement (moles/volume) 139 mmol/L 135-145 Serum or plasma potassium measurement (moles/volume) 4.0 mmol/L 3.6-5.0 Serum or plasma chloride measurement (moles/volume) 112 mmol/L 98-107 Carbon dioxide 15 mmol/L 21-32 Serum or plasma anion gap determination (moles/volume) 12 mmol/L 5-14 Serum or plasma urea nitrogen measurement (mass/volume ) 21 mg/dL 7-18 Serum or plasma creatinine measurement (mass/volume) 1.18 mg/dL 0.60-1.30 Serum or plasma urea nitrogen/creatinine mass ratio 18 NRG Serum or plasma creatinine measurement w ith calculation of estimated glomerular filtration rate 48 NRG Serum or plasma glucose measurement (mass/volume) 149 mg/dL 70-105 Serum or plasma calcium measurement (mass/volume) 8.6 mg/dL 8.5-10.1 Arterial blood gas measurement - 9 07:15 Blood pCO2 38 mm[Hg] 35-45 Blood pO2 56 mm[Hg] 79-93 Arterial blood bicarbonate measurement (moles/volume) 20 mmol/L 23-27 Arterial blood base excess by calculation -5.1 mmo l/L -2.5-2.5 Arterial blood oxygen saturation measurement 91 % 94-100 * Inhaled oxygen flow rate 2.5 L NRG Arterial blood pH measurement with patient temperature correction 7.33 7.37-7.43 Arterial blood carbon dioxide, total measurement (mole s/volume) 21.2 mmol/L 21.0-31.0 Body site RIGHT RADIAL NRG Assessment of wrist artery patency prior to arterial p uncture POSITIVE NRG Setting of ventilation mode NO NR G Measurement of body temperature 96.2 NRG Arterial blood gas measurement - 9 19:00 Blood pCO2 42 mm[Hg] 35-45 Blood pO2 75 mm[Hg] 79-93 Arterial blood bicarbonate measurement (moles/volume) 22 mmol/L 23-27 Arterial blood base excess by calculation -2.8 mmo l/L -2.5-2.5 Arterial blood oxygen saturation measurement 95 % 94-100 * Inhaled oxygen flow rate 3L NRG Arterial blood pH measurement with patient temperature correction 7.34 7.37-7.43 Arterial blood carbon dioxide, total measurement (mole s/volume) 23.3 mmol/L 21.0-31.0 Body site RIGHT RADIAL NRG Assessment of wrist artery patency prior to arterial p uncture POSITIVE NRG Setting of ventilation mode NO NR G Measurement of body temperature 98.9 NRG Bacterial blood culture - 02/04/19 20:53 Bacterial blood culture NG NRG Complete blood count (CBC) with automate d white blood cell (WBC) differential - 02/04/19 20:55 Blood leukocytes automated count (number/volume) 10.4 10*3/uL 4.3-11.0 Blood erythrocytes automated count (number/volume) 3.45 10*6/uL 4.35-5.85 Venous blood hemoglobin measurement (mass/volume) 11.4 g/dL 11.5-16.0 Blood hematocrit (volume fraction) 37 % 35-52 Automated erythrocyte mean corpuscular volume 107 [foz_us] 80-99 Automated erythrocyte mean corpuscular h emoglobin (mass per erythrocyte) 33 pg 25-34 Automated erythrocyte mean corpuscular h emoglobin concentration measurement (mass/volume) 31 g/dL 32-36 Automated erythrocyte distribution width ratio 16. 7 % 10.0- 14.5 Automated blood platelet count (count/volume) 257 10*3/uL 130-400 Automated blood platelet mean volume measurement 10.3 [foz_us] 7.4-10.4 Automated blood neutrophils/100 leukocytes 62 % 42-75 Automated blood lymphocytes/100 leukocytes 18 % 12-44 Blood monocytes/100 leukocytes 17 % 0-12 Automated blood eosinophils/100 leukocytes 3 % 0-10 Automated blood basophils/100 leukocytes 1 % 0-10 Blood neutrophils automated count (number/volume) 6.5 10*3 1.8-7.8 Blood lymphocytes automated count (number/volume) 1.9 10*3 1.0-4.0 Blood monocytes automated count (number/volume) 1. 7 10*3 0.0-1.0 Automated eosinophil count 0.3 10*3/uL 0 .0-0.3 Automated blood basophil count (count/volume) 0.1 10*3/uL 0.0-0.1 PT panel in platelet poor plasma by coag ulation assay - 02/04/19 20:55 Prothrombin time (PT) in platelet poor plasma by coagu lation assay 12.4 s 12.2-14.7 INR in platelet poor plasma or blood by coagulation as say 0.9 0.8-1.4 Activated partial thromboplastin time (a PTT) in platelet poor plasma bycoagulation assay - 02/04/19 20:55 Activated partial thromboplastin time (a PTT) in platelet poor plasma bycoagulation assay 42 s 24-35 Blood lactic acid measurement (moles/vol ume) - 02/04/19 20:55 Blood lactic acid measurement (moles/volume) 0.68 mmol/L 0.50-2.00 Comprehensive metabolic panel - 02/04/19 20:55 Serum or plasma sodium measurement (moles/volume) 148 mmol/L 135-145 Serum or plasma potassium measurement (moles/volume) 4.8 mmol/L 3.6-5.0 Serum or plasma chloride measurement (moles/volume) 113 mmol/L 98-107 Carbon dioxide 21 mmol/L 21-32 Serum or plasma anion gap determination (moles/volume) 14 mmol/L 5-14 Serum or plasma urea nitrogen measurement (mass/volume ) 33 mg/dL 7-18 Serum or plasma creatinine measurement (mass/volume) 1.34 mg/dL 0.60-1.30 Serum or plasma urea nitrogen/creatinine mass ratio 25 NRG Serum or plasma creatinine measurement w ith calculation of estimated glomerular filtration rate 42 NRG Serum or plasma glucose measurement (mass/volume) 83 mg/dL 70-105 Serum or plasma calcium measurement (mass/volume) 10.8 mg/dL 8.5-10.1 Serum or plasma total bilirubin measurement (mass/volu me) 0.1 mg/dL 0.1-1.0 Serum or plasma alkaline phosphatase rosetta surement (enzymatic activity/volume) 83 U/L 40-136 Serum or plasma aspartate aminotransfera se measurement (enzymatic activity/volume) 6 U/L 5-34 Serum or plasma alanine aminotransferase measurement (enzymatic activity/volume) < U/L 0-55 Serum or plasma protein measurement (mass/volume) 7.1 g/dL 6.4-8.2 Serum or plasma albumin measurement (mass/volume) 3.9 g/dL 3.2-4.5 CALCIUM CORRECTED 10.9 mg/dL 8.5-10.1 Serum or plasma troponin i.cardiac measu rement (mass/volume) - 02/04/19 20:55 Serum or plasma troponin i.cardiac measurement (mass/v olume) < ng/mL <0.028 Serum or plasma lithium measurement (mol es/volume) - 02/04/19 20:55 BNP level 33.9 pg/mL <100.0 Serum or plasma C reactive protein measu rement (mass/volume) - 02/04/19 20:55 Serum or plasma C reactive protein measurement (mass/v olume) 9.58 mg/dL 0.00-0.50 Complete urinalysis with reflex to cultu re - 02/04/19 20:58 Urine color determination YELLOW NRG Urine clarity determination CLEAR NR G Urine pH measurement by test strip 6 5-9 Specific gravity of urine by test strip 1.015 1.016-1.022 Urine protein assay by test strip, semi-quantitative 2+ NEGATIVE Urine glucose detection by automated test strip NE GATIVE NEGATIVE Erythrocytes detection in urine sediment by light micr oscopy 1+ NEGATIVE Urine ketones detection by automated test strip NE GATIVE NEGATIVE Urine nitrite detection by test strip NEGATIVE NEGATIVE Urine total bilirubin detection by test strip NEGA TIVE NEGATIVE Urine urobilinogen measurement by automated test strip (mass/volume) NORMAL NORMAL Urine leukocyte esterase detection by dipstick 1+ NEGATIVE Automated urine sediment erythrocyte cou nt by microscopy (number/high power field) RARE NRG Automated urine sediment leukocyte count by microscopy (number/high power field) TNTC NRG Bacteria detection in urine sediment by light microsco py MODERATE NRG Squamous epithelial cells detection in u rine sediment by light microscopy 5-10 NRG Crystals detection in urine sediment by light microsco py NONE NRG Casts detection in urine sediment by light microscopy NONE NRG Mucus detection in urine sediment by light microscopy SMALL NRG Complete urinalysis with reflex to culture YES NRG Bacterial urine culture - 02/04/19 20:58 Bacterial urine culture 3 OR MORE NRG COLONY COUNT 40,000 CFU/ML NRG FTX;REPORTABLE GRAM POSITIVES. SUGGESTING PROBABLE NRG FREE TEXT ENTRY 2 COLLECTION CONTAMINATION WITH SK IN NRG FREE TEXT ENTRY 3 ROBERT. NO SUSCEPTIBILITY PERFOR MED NRG Bacterial blood culture - 02/04/19 21:15 Bacterial blood culture NG NRG Complete blood count (CBC) with automate d white blood cell (WBC) differential - 02/05/19 05:15 Blood leukocytes automated count (number/volume) 9.8 10*3/uL 4.3-11.0 Blood erythrocytes automated count (number/volume) 3.66 10*6/uL 4.35-5.85 Venous blood hemoglobin measurement (mass/volume) 11.5 g/dL 11.5-16.0 Blood hematocrit (volume fraction) 40 % 35-52 Automated erythrocyte mean corpuscular volume 109 [foz_us] 80-99 Automated erythrocyte mean corpuscular h emoglobin (mass per erythrocyte) 31 pg 25-34 Automated erythrocyte mean corpuscular h emoglobin concentration measurement (mass/volume) 29 g/dL 32-36 Automated erythrocyte distribution width ratio 16. 7 % 10.0- 14.5 Automated blood platelet count (count/volume) 246 10*3/uL 130-400 Automated blood platelet mean volume measurement 10.9 [foz_us] 7.4-10.4 Automated blood neutrophils/100 leukocytes 93 % 42-75 Automated blood lymphocytes/100 leukocytes 5 % 12-44 Blood monocytes/100 leukocytes 2 % 0-12 Automated blood eosinophils/100 leukocytes 0 % 0-10 Automated blood basophils/100 leukocytes 0 % 0-10 Blood neutrophils automated count (number/volume) 9.1 10*3 1.8-7.8 Blood lymphocytes automated count (number/volume) 0.5 10*3 1.0-4.0 Blood monocytes automated count (number/volume) 0. 2 10*3 0.0-1.0 Automated eosinophil count 0.0 10*3/uL 0 .0-0.3 Automated blood basophil count (count/volume) 0.0 10*3/uL 0.0-0.1 Manual absolute plasma cell count - 01/24 11/11 05:15 Blood monocytes/100 leukocytes 0 % NRG Manual blood segmented neutrophils/100 leukocytes 92 % NRG Blood band neutrophils/100 leukocytes 1 % NRG Manual blood lymphocytes/100 leukocytes 5 % NRG Manual eosinophils/100 leukocytes in nose 1 % NRG Manual blood basophils/100 leukocytes 0 % NRG Blood polychromasia detection by light microscopy SLIGHT NRG Blood anisocytosis detection by light microscopy S LIGHT NRG Manual blood metamyelocytes/100 leukocytes 1 % NRG Blood hypochromia detection by light microscopy SL IGHT NRG Whole blood basic metabolic panel - 01/24 11/11 05:15 Serum or plasma sodium measurement (moles/volume) 141 mmol/L 135-145 Serum or plasma potassium measurement (moles/volume) 5.0 mmol/L 3.6-5.0 Serum or plasma chloride measurement (moles/volume) 115 mmol/L 98-107 Carbon dioxide 18 mmol/L 21-32 Serum or plasma anion gap determination (moles/volume) 8 mmol/L 5-14 Serum or plasma urea nitrogen measurement (mass/volume ) 27 mg/dL 7-18 Serum or plasma creatinine measurement (mass/volume) 1.14 mg/dL 0.60-1.30 Serum or plasma urea nitrogen/creatinine mass ratio 24 NRG Serum or plasma creatinine measurement w ith calculation of estimated glomerular filtration rate 50 NRG Serum or plasma glucose measurement (mass/volume) 132 mg/dL 70-105 Serum or plasma calcium measurement (mass/volume) 10.1 mg/dL 8.5-10.1 PDM - PAIN MGMT (PROFILE 3 WITH CONFIRMA TION) - 02/16/19 12:33 Creatinine 70.2 mg/dL > or = 20.0 pH 6.96 4.5 - 9.0 Oxidant NEGATIVE mcg/mL <200 Amphetamines NEGATIVE ng/mL <500 medMATCH Amphetamines CONSISTENT NRG Benzodiazepines NEGATIVE ng/mL <100 medMATCH Benzodiazepines CONSISTENT NRG Marijuana Metabolite POSITIVE ng/mL <20 Cocaine Metabolite NEGATIVE ng/mL <150 medMATCH Cocaine Metab CONSISTENT NRG Opiates NEGATIVE ng/mL <100 medMATCH Opiates CONSISTENT NRG Oxycodone NEGATIVE ng/mL <100 medMATCH Oxycodone CONSISTENT NRG COMMENT NRG Marijuana Metabolite 65 ng/mL <5 medMATCH Marijuana Metab INCONSISTENT N RG Complete urinalysis with reflex to cultu re - 03/06/19 00:56 Urine color determination YELLOW NRG Urine clarity determination CLEAR NR G Urine pH measurement by test strip 5 5-9 Specific gravity of urine by test strip 1.020 1.016-1.022 Urine protein assay by test strip, semi-quantitative 3+ NEGATIVE Urine glucose detection by automated test strip NE GATIVE NEGATIVE Erythrocytes detection in urine sediment by light micr oscopy 2+ NEGATIVE Urine ketones detection by automated test strip NE GATIVE NEGATIVE Urine nitrite detection by test strip NEGATIVE NEGATIVE Urine total bilirubin detection by test strip NEGA TIVE NEGATIVE Urine urobilinogen measurement by automated test strip (mass/volume) NORMAL NORMAL Urine leukocyte esterase detection by dipstick 1+ NEGATIVE Automated urine sediment erythrocyte cou nt by microscopy (number/high power field) [HPF] NRG Automated urine sediment leukocyte count by microscopy (number/high power field) [HPF] NRG Bacteria detection in urine sediment by light microsco py FEW NRG Squamous epithelial cells detection in u rine sediment by light microscopy 10-25 NRG Crystals detection in urine sediment by light microsco py NONE NRG Casts detection in urine sediment by light microscopy PRESENT NRG Mucus detection in urine sediment by light microscopy SMALL NRG Complete urinalysis with reflex to culture CULTURE PENDING NRG Granular casts detection in urine sediment by light mi croscopy 0-2 NRG Bacterial urine culture - 03/06/19 00:56 Bacterial urine culture 3 OR MORE NRG COLONY COUNT >100,000/ML NRG FTX;REPORTABLE SUGGESTING PROBABLE COLLECTION NRG FREE TEXT ENTRY 2 CONTAMINATION WITH SKIN ROBERT NRG FREE TEXT ENTRY 3 NO SUSCEPTIBILITY PERFORMED NRG PT panel in platelet poor plasma by coag ulation assay - 03/06/19 23:59 Prothrombin time (PT) in platelet poor plasma by coagu lation assay 11.7 s 12.2-14.7 INR in platelet poor plasma or blood by coagulation as say 0.8 0.8-1.4 Activated partial thromboplastin time (a PTT) in platelet poor plasma bycoagulation assay - 03/06/19 23:59 Activated partial thromboplastin time (a PTT) in platelet poor plasma bycoagulation assay 35 s 24-35 Blood lactic acid measurement (moles/vol ume) - 03/07/19 00:03 Blood lactic acid measurement (moles/volume) 0.82 mmol/L 0.50-2.00 Bacterial blood culture - 03/07/19 00:03 Bacterial blood culture NG NRG Arterial blood gas measurement - 9 00:15 Blood pCO2 57 mm[Hg] 35-45 Blood pO2 101 mm[Hg] 79-93 Arterial blood bicarbonate measurement (moles/volume) 20 mmol/L 23-27 Arterial blood base excess by calculation -6.7 mmo l/L -2.5-2.5 Arterial blood oxygen saturation measurement 97 % 94-100 * Inhaled oxygen flow rate 2L NRG Arterial blood pH measurement with patient temperature correction 7.18 7.37-7.43 Arterial blood carbon dioxide, total measurement (mole s/volume) 22.1 mmol/L 21.0-31.0 Body site NOT INDICATED NRG Assessment of wrist artery patency prior to arterial p uncture NA NRG Setting of ventilation mode NO NR G Measurement of body temperature 99.0 NRG Complete blood count (CBC) with automate d white blood cell (WBC) differential - 03/07/19 00:33 Blood leukocytes automated count (number/volume) 8.5 10*3/uL 4.3-11.0 Blood erythrocytes automated count (number/volume) 3.93 10*6/uL 4.35-5.85 Venous blood hemoglobin measurement (mass/volume) 12.9 g/dL 11.5-16.0 Blood hematocrit (volume fraction) 43 % 35-52 Automated erythrocyte mean corpuscular volume 110 [foz_us] 80-99 Automated erythrocyte mean corpuscular h emoglobin (mass per erythrocyte) 33 pg 25-34 Automated erythrocyte mean corpuscular h emoglobin concentration measurement (mass/volume) 30 g/dL 32-36 Automated erythrocyte distribution width ratio 17. 1 % 10.0- 14.5 Automated blood platelet count (count/volume) 183 10*3/uL 130-400 Automated blood platelet mean volume measurement 10.9 [foz_us] 7.4-10.4 Automated blood neutrophils/100 leukocytes 81 % 42-75 Automated blood lymphocytes/100 leukocytes 7 % 12-44 Blood monocytes/100 leukocytes 11 % 0-12 Automated blood eosinophils/100 leukocytes 1 % 0-10 Automated blood basophils/100 leukocytes 0 % 0-10 Blood neutrophils automated count (number/volume) 6.9 10*3 1.8-7.8 Blood lymphocytes automated count (number/volume) 0.6 10*3 1.0-4.0 Blood monocytes automated count (number/volume) 0. 9 10*3 0.0-1.0 Automated eosinophil count 0.1 10*3/uL 0 .0-0.3 Automated blood basophil count (count/volume) 0.0 10*3/uL 0.0-0.1 Comprehensive metabolic panel - 03/07/19 00:33 Serum or plasma sodium measurement (moles/volume) 141 mmol/L 135-145 Serum or plasma potassium measurement (moles/volume) 4.8 mmol/L 3.6-5.0 Serum or plasma chloride measurement (moles/volume) 112 mmol/L 98-107 Carbon dioxide 19 mmol/L 21-32 Serum or plasma anion gap determination (moles/volume) 10 mmol/L 5-14 Serum or plasma urea nitrogen measurement (mass/volume ) 30 mg/dL 7-18 Serum or plasma creatinine measurement (mass/volume) 1.60 mg/dL 0.60-1.30 Serum or plasma urea nitrogen/creatinine mass ratio 19 NRG Serum or plasma creatinine measurement w ith calculation of estimated glomerular filtration rate 34 NRG Serum or plasma glucose measurement (mass/volume) 119 mg/dL 70-105 Serum or plasma calcium measurement (mass/volume) 9.9 mg/dL 8.5-10.1 Serum or plasma total bilirubin measurement (mass/volu me) 0.1 mg/dL 0.1-1.0 Serum or plasma alkaline phosphatase rosetta surement (enzymatic activity/volume) 75 U/L 40-136 Serum or plasma aspartate aminotransfera se measurement (enzymatic activity/volume) 9 U/L 5-34 Serum or plasma alanine aminotransferase measurement (enzymatic activity/volume) 7 U/L 0-55 Serum or plasma protein measurement (mass/volume) 7.1 g/dL 6.4-8.2 Serum or plasma albumin measurement (mass/volume) 4.3 g/dL 3.2-4.5 CALCIUM CORRECTED 9.7 mg/dL 8.5-10.1 Serum or plasma troponin i.cardiac measu rement (mass/volume) - 03/07/19 00:33 Serum or plasma troponin i.cardiac measurement (mass/v olume) < ng/mL <0.028 Bacterial blood culture - 03/07/19 00:33 Bacterial blood culture NG NRG Urine drug screening test - 03/07/19 00: 56 Urine phencyclidine detection by screening method NEGATIVE NEGATIVE Urine benzodiazepines detection by screening method NEGATIVE NEGATIVE Urine cocaine detection NEGATIVE NEGATI VE Urine amphetamines detection by screening method N EGATIVE NEGATIVE Urine methamphetamine detection by screening method NEGATIVE NEGATIVE Urine cannabinoids detection by screening method P OSITIVE NEGATIVE Urine opiates detection by screening method POSITI VE NEGATIVE Urine barbiturates detection NEGATIVE N EGATIVE Screening urine tricyclic antidepressants detection NEGATIVE NEGATIVE Urine methadone detection by screening method NEGA TIVE NEGATIVE Urine oxycodone detection NEGATIVE NEGA TIVE Urine propoxyphene detection NEGATIVE N EGATIVE Arterial blood gas measurement - 9 02:50 Blood pCO2 62 mm[Hg] 35-45 Blood pO2 50 mm[Hg] 79-93 Arterial blood bicarbonate measurement (moles/volume) 20 mmol/L 23-27 Arterial blood base excess by calculation -8.0 mmo l/L -2.5-2.5 Arterial blood oxygen saturation measurement 83 % 94-100 * Inhaled oxygen flow rate 35% NRG Arterial blood pH measurement with patient temperature correction 7.13 7.37-7.43 Arterial blood carbon dioxide, total measurement (mole s/volume) 22.0 mmol/L 21.0-31.0 Body site RIGHT RADIAL NRG Assessment of wrist artery patency prior to arterial p uncture YES-POS NRG Setting of ventilation mode NO NR G Measurement of body temperature 97.0 NRG Arterial blood gas measurement - 9 03:15 Blood pCO2 60 mm[Hg] 35-45 Blood pO2 75 mm[Hg] 79-93 Arterial blood bicarbonate measurement (moles/volume) 20 mmol/L 23-27 Arterial blood base excess by calculation -8.1 mmo l/L -2.5-2.5 Arterial blood oxygen saturation measurement 94 % 94-100 * Inhaled oxygen flow rate 35% NRG Arterial blood pH measurement with patient temperature correction 7.14 7.37-7.43 Arterial blood carbon dioxide, total measurement (mole s/volume) 21.7 mmol/L 21.0-31.0 Body site RIGHT BRACHIAL NRG Assessment of wrist artery patency prior to arterial p uncture NA NRG Setting of ventilation mode NO NR G Measurement of body temperature 97.0 NRG Arterial blood gas measurement - 9 05:00 Blood pCO2 52 mm[Hg] 35-45 Blood pO2 59 mm[Hg] 79-93 Arterial blood bicarbonate measurement (moles/volume) 19 mmol/L 23-27 Arterial blood base excess by calculation -7.5 mmo l/L -2.5-2.5 Arterial blood oxygen saturation measurement 91 % 94-100 * Inhaled oxygen flow rate 21% NRG Arterial blood pH measurement with patient temperature correction 7.19 7.37-7.43 Arterial blood carbon dioxide, total measurement (mole s/volume) 21.0 mmol/L 21.0-31.0 Body site LEFT RADIAL NRG Assessment of wrist artery patency prior to arterial p uncture YES-POS NRG Setting of ventilation mode NO NR G Measurement of body temperature 97.7 NRG Arterial blood gas measurement - 9 10:13 Blood pCO2 53 mm[Hg] 35-45 Blood pO2 55 mm[Hg] 79-93 Arterial blood bicarbonate measurement (moles/volume) 23 mmol/L 23-27 Arterial blood base excess by calculation -2.8 mmo l/L -2.5-2.5 Arterial blood oxygen saturation measurement 88 % 94-100 * Inhaled oxygen flow rate 25%, 30LPM N RG Arterial blood pH measurement with patient temperature correction 7.27 7.37-7.43 Arterial blood carbon dioxide, total measurement (mole s/volume) 24.8 mmol/L 21.0-31.0 Body site RT RAD NRG Assessment of wrist artery patency prior to arterial p uncture YES-POS NRG Setting of ventilation mode NO NR G Measurement of body temperature 98.3 NRG TSH - 08/24/19 15:57 TSH 2.97 mIU/L NRG A1C - 08/24/19 15:57 HEMOGLOBIN A1c 4.8 % of total Hgb <5.7 Complete urinalysis with reflex to cultu re - 08/27/19 13:45 Urine color determination YELLOW NRG Urine clarity determination CLEAR NR G Urine pH measurement by test strip 6.0 5-9 Specific gravity of urine by test strip 1.025 1.016-1.022 Urine protein assay by test strip, semi-quantitative 2+ NEGATIVE Urine glucose detection by automated test strip NE GATIVE NEGATIVE Erythrocytes detection in urine sediment by light micr oscopy TRACE-I NEGATIVE Urine ketones detection by automated test strip NE GATIVE NEGATIVE Urine nitrite detection by test strip NEGATIVE NEGATIVE Urine total bilirubin detection by test strip NEGA TIVE NEGATIVE Urine urobilinogen measurement by automated test strip (mass/volume) 0.2 mg/dL < = 1.0 Urine leukocyte esterase detection by dipstick NEG ATIVE NEGATIVE Automated urine sediment erythrocyte cou nt by microscopy (number/high power field) RARE NRG Automated urine sediment leukocyte count by microscopy (number/high power field) RARE NRG Bacteria detection in urine sediment by light microsco py TRACE NRG Squamous epithelial cells detection in u rine sediment by light microscopy 5-10 NRG Crystals detection in urine sediment by light microsco py PRESENT NRG Casts detection in urine sediment by light microscopy PRESENT NRG Mucus detection in urine sediment by light microscopy NEGATIVE NRG Complete urinalysis with reflex to culture NO NRG Amorphous sediment detection in urine sediment by ligh t microscopy RARE PATY URATES NRG Granular casts detection in urine sediment by light mi croscopy RARE NRG Urine drug screening test - 08/27/19 13: 45 Urine phencyclidine detection by screening method NEGATIVE NEGATIVE Urine benzodiazepines detection by screening method NEGATIVE NEGATIVE Urine cocaine detection NEGATIVE NEGATI VE Urine amphetamines detection by screening method N EGATIVE NEGATIVE Urine methamphetamine detection by screening method NEGATIVE NEGATIVE Urine cannabinoids detection by screening method P OSITIVE NEGATIVE Urine opiates detection by screening method POSITI VE NEGATIVE Urine barbiturates detection NEGATIVE N EGATIVE Screening urine tricyclic antidepressants detection NEGATIVE NEGATIVE Urine methadone detection by screening method NEGA TIVE NEGATIVE Urine oxycodone detection POSITIVE NEGA TIVE Urine propoxyphene detection NEGATIVE N EGATIVE Complete blood count (CBC) with automate d white blood cell (WBC) differential - 08/27/19 13:53 Blood leukocytes automated count (number/volume) 5.6 10*3/uL 4.3-11.0 Blood erythrocytes automated count (number/volume) 4.41 10*6/uL 4.35-5.85 Venous blood hemoglobin measurement (mass/volume) 13.3 g/dL 11.5-16.0 Blood hematocrit (volume fraction) 44 % 35-52 Automated erythrocyte mean corpuscular volume 100 [foz_us] 80-99 Automated erythrocyte mean corpuscular h emoglobin (mass per erythrocyte) 30 pg 25-34 Automated erythrocyte mean corpuscular h emoglobin concentration measurement (mass/volume) 30 g/dL 32-36 Automated erythrocyte distribution width ratio 18. 7 % 10.0- 14.5 Automated blood platelet count (count/volume) 148 10*3/uL 130-400 Automated blood platelet mean volume measurement 10.0 [foz_us] 7.4-10.4 Automated blood neutrophils/100 leukocytes 67 % 42-75 Automated blood lymphocytes/100 leukocytes 16 % 12-44 Blood monocytes/100 leukocytes 16 % 0-12 Automated blood eosinophils/100 leukocytes 1 % 0-10 Automated blood basophils/100 leukocytes 0 % 0-10 Blood neutrophils automated count (number/volume) 3.8 10*3 1.8-7.8 Blood lymphocytes automated count (number/volume) 0.9 10*3 1.0-4.0 Blood monocytes automated count (number/volume) 0. 9 10*3 0.0-1.0 Automated eosinophil count 0.0 10*3/uL 0 .0-0.3 Automated blood basophil count (count/volume) 0.0 10*3/uL 0.0-0.1 Comprehensive metabolic panel - 08/27/19 13:53 Serum or plasma sodium measurement (moles/volume) 136 mmol/L 135-145 Serum or plasma potassium measurement (moles/volume) 4.1 mmol/L 3.6-5.0 Serum or plasma chloride measurement (moles/volume) 111 mmol/L 98-107 Carbon dioxide 13 mmol/L 21-32 Serum or plasma anion gap determination (moles/volume) 12 mmol/L 5-14 Serum or plasma urea nitrogen measurement (mass/volume ) 33 mg/dL 7-18 Serum or plasma creatinine measurement (mass/volume) 1.72 mg/dL 0.60-1.30 Serum or plasma urea nitrogen/creatinine mass ratio 19 NRG Serum or plasma creatinine measurement w ith calculation of estimated glomerular filtration rate 31 NRG Serum or plasma glucose measurement (mass/volume) 112 mg/dL 70-105 Serum or plasma calcium measurement (mass/volume) 8.7 mg/dL 8.5-10.1 Serum or plasma total bilirubin measurement (mass/volu me) 0.2 mg/dL 0.1-1.0 Serum or plasma alkaline phosphatase rosetta surement (enzymatic activity/volume) 74 U/L 40-136 Serum or plasma aspartate aminotransfera se measurement (enzymatic activity/volume) 9 U/L 5-34 Serum or plasma alanine aminotransferase measurement (enzymatic activity/volume) 10 U/L 0-55 Serum or plasma protein measurement (mass/volume) 7.0 g/dL 6.4-8.2 Serum or plasma albumin measurement (mass/volume) 4.4 g/dL 3.2-4.5 CALCIUM CORRECTED 8.4 mg/dL 8.5-10.1 Serum or plasma amylase measurement (enz ymatic activity/volume) - 08/27/19 13:53 Serum or plasma amylase measurement (enzymatic activit y/volume) 139 U/L 25-125 Lipase - 08/27/19 13:53 Lipase 196 U/L 8-78 Serum or plasma ethanol measurement (mas s/volume) - 08/27/19 13:53 Serum or plasma ethanol measurement (mass/volume) < mg/dL <10 Complete blood count (CBC) with automate d white blood cell (WBC) differential - 09/01/19 21:11 Blood leukocytes automated count (number/volume) 15.7 10*3/uL 4.3-11.0 Blood erythrocytes automated count (number/volume) 4.00 10*6/uL 4.35-5.85 Venous blood hemoglobin measurement (mass/volume) 12.1 g/dL 11.5-16.0 Blood hematocrit (volume fraction) 40 % 35-52 Automated erythrocyte mean corpuscular volume 99 [ foz_us] 80-99 Automated erythrocyte mean corpuscular h emoglobin (mass per erythrocyte) 30 pg 25-34 Automated erythrocyte mean corpuscular h emoglobin concentration measurement (mass/volume) 31 g/dL 32-36 Automated erythrocyte distribution width ratio 19. 9 % 10.0- 14.5 Automated blood platelet count (count/volume) 270 10*3/uL 130-400 Automated blood platelet mean volume measurement 10.7 [foz_us] 7.4-10.4 Automated blood neutrophils/100 leukocytes 75 % 42-75 Automated blood lymphocytes/100 leukocytes 9 % 12-44 Blood monocytes/100 leukocytes 16 % 0-12 Automated blood eosinophils/100 leukocytes 1 % 0-10 Automated blood basophils/100 leukocytes 0 % 0-10 Blood neutrophils automated count (number/volume) 11.7 10*3 1.8-7.8 Blood lymphocytes automated count (number/volume) 1.4 10*3 1.0-4.0 Blood monocytes automated count (number/volume) 2. 4 10*3 0.0-1.0 Automated eosinophil count 0.1 10*3/uL 0 .0-0.3 Automated blood basophil count (count/volume) 0.0 10*3/uL 0.0-0.1 Comprehensive metabolic panel - 09/01/19 21:11 Serum or plasma sodium measurement (moles/volume) 141 mmol/L 135-145 Serum or plasma potassium measurement (moles/volume) 4.1 mmol/L 3.6-5.0 Serum or plasma chloride measurement (moles/volume) 104 mmol/L 98-107 Carbon dioxide 24 mmol/L 21-32 Serum or plasma anion gap determination (moles/volume) 13 mmol/L 5-14 Serum or plasma urea nitrogen measurement (mass/volume ) 12 mg/dL 7-18 Serum or plasma creatinine measurement (mass/volume) 1.05 mg/dL 0.60-1.30 Serum or plasma urea nitrogen/creatinine mass ratio 11 NRG Serum or plasma creatinine measurement w ith calculation of estimated glomerular filtration rate 55 NRG Serum or plasma glucose measurement (mass/volume) 129 mg/dL 70-105 Serum or plasma calcium measurement (mass/volume) 9.6 mg/dL 8.5-10.1 Serum or plasma total bilirubin measurement (mass/volu me) 0.3 mg/dL 0.1-1.0 Serum or plasma alkaline phosphatase rosetta surement (enzymatic activity/volume) 78 U/L 40-136 Serum or plasma aspartate aminotransfera se measurement (enzymatic activity/volume) 6 U/L 5-34 Serum or plasma alanine aminotransferase measurement (enzymatic activity/volume) 6 U/L 0-55 Serum or plasma protein measurement (mass/volume) 6.8 g/dL 6.4-8.2 Serum or plasma albumin measurement (mass/volume) 3.7 g/dL 3.2-4.5 CALCIUM CORRECTED 9.8 mg/dL 8.5-10.1 Magnesium - 09/01/19 21:11 Magnesium 1.7 mg/dL 1.6-2.4 Lipase - 09/01/19 21:11 Lipase 44 U/L 8-78 Serum or plasma C reactive protein measu rement (mass/volume) - 09/01/19 21:11 Serum or plasma C reactive protein measurement (mass/v olume) 14.00 mg/dL 0.00-0.50 Manual absolute plasma cell count - 03/14 21:11 Blood monocytes/100 leukocytes 13 % NRG Manual blood segmented neutrophils/100 leukocytes 77 % NRG Blood band neutrophils/100 leukocytes 4 % NRG Manual blood lymphocytes/100 leukocytes 4 % NRG Manual eosinophils/100 leukocytes in nose 1 % NRG Manual blood basophils/100 leukocytes 0 % NRG Blood lymphocytes variant/100 leukocytes 1 % NRG Blood anisocytosis detection by light microscopy S LIGHT NRG Blood stomatocytes detection by light microscopy S LIGHT NRG PT panel in platelet poor plasma by coag ulation assay - 09/01/19 21:11 Prothrombin time (PT) in platelet poor plasma by coagu lation assay 13.8 s 12.2-14.7 INR in platelet poor plasma or blood by coagulation as say 1.0 0.8-1.4 Activated partial thromboplastin time (a PTT) in platelet poor plasma bycoagulation assay - 09/01/19 21:11 Activated partial thromboplastin time (a PTT) in platelet poor plasma bycoagulation assay 35 s 24-35 Complete urinalysis with reflex to cultu re - 09/01/19 21:20 Urine color determination YELLOW NRG Urine clarity determination SL CLOUDY N RG Urine pH measurement by test strip 5.5 5-9 Specific gravity of urine by test strip >= 1.016-1.022 Urine protein assay by test strip, semi-quantitative 2+ NEGATIVE Urine glucose detection by automated test strip NE GATIVE NEGATIVE Erythrocytes detection in urine sediment by light micr oscopy NEGATIVE NEGATIVE Urine ketones detection by automated test strip NE GATIVE NEGATIVE Urine nitrite detection by test strip NEGATIVE NEGATIVE Urine total bilirubin detection by test strip NEGA TIVE NEGATIVE Urine urobilinogen measurement by automated test strip (mass/volume) 0.2 mg/dL < = 1.0 Urine leukocyte esterase detection by dipstick NEG ATIVE NEGATIVE Automated urine sediment erythrocyte cou nt by microscopy (number/high power field) NONE NRG Automated urine sediment leukocyte count by microscopy (number/high power field) NONE NRG Bacteria detection in urine sediment by light microsco py TRACE NRG Squamous epithelial cells detection in u rine sediment by light microscopy 5-10 NRG Crystals detection in urine sediment by light microsco py PRESENT NRG Casts detection in urine sediment by light microscopy NONE NRG Mucus detection in urine sediment by light microscopy NEGATIVE NRG Complete urinalysis with reflex to culture NO NRG Amorphous sediment detection in urine sediment by ligh t microscopy RARE PATY URATES NRG Bacterial blood culture - 09/01/19 22:56 Bacterial blood culture NG NRG Blood lactic acid measurement (moles/vol ume) - 09/01/19 23:01 Blood lactic acid measurement (moles/volume) 0.44 mmol/L 0.50-2.00 Bacterial blood culture - 09/01/19 23:01 Bacterial blood culture [facility] Complete blood count (CBC) with automate d white blood cell (WBC) differential - 09/02/19 07:00 Blood leukocytes automated count (number/volume) 11.2 10*3/uL 4.3-11.0 Blood erythrocytes automated count (number/volume) 3.71 10*6/uL 4.35-5.85 Venous blood hemoglobin measurement (mass/volume) 11.2 g/dL 11.5-16.0 Blood hematocrit (volume fraction) 37 % 35-52 Automated erythrocyte mean corpuscular volume 100 [foz_us] 80-99 Automated erythrocyte mean corpuscular h emoglobin (mass per erythrocyte) 30 pg 25-34 Automated erythrocyte mean corpuscular h emoglobin concentration measurement (mass/volume) 30 g/dL 32-36 Automated erythrocyte distribution width ratio 20. 0 % 10.0- 14.5 Automated blood platelet count (count/volume) 237 10*3/uL 130-400 Automated blood platelet mean volume measurement 11.2 [foz_us] 7.4-10.4 Automated blood neutrophils/100 leukocytes 94 % 42-75 Automated blood lymphocytes/100 leukocytes 3 % 12-44 Blood monocytes/100 leukocytes 3 % 0-12 Automated blood eosinophils/100 leukocytes 0 % 0-10 Automated blood basophils/100 leukocytes 0 % 0-10 Blood neutrophils automated count (number/volume) 10.4 10*3 1.8-7.8 Blood lymphocytes automated count (number/volume) 0.4 10*3 1.0-4.0 Blood monocytes automated count (number/volume) 0. 3 10*3 0.0-1.0 Automated eosinophil count 0.0 10*3/uL 0 .0-0.3 Automated blood basophil count (count/volume) 0.0 10*3/uL 0.0-0.1 Comprehensive metabolic panel - 09/02/19 07:00 Serum or plasma sodium measurement (moles/volume) 141 mmol/L 135-145 Serum or plasma potassium measurement (moles/volume) 4.4 mmol/L 3.6-5.0 Serum or plasma chloride measurement (moles/volume) 105 mmol/L 98-107 Carbon dioxide 24 mmol/L 21-32 Serum or plasma anion gap determination (moles/volume) 12 mmol/L 5-14 Serum or plasma urea nitrogen measurement (mass/volume ) 13 mg/dL 7-18 Serum or plasma creatinine measurement (mass/volume) 1.10 mg/dL 0.60-1.30 Serum or plasma urea nitrogen/creatinine mass ratio 12 NRG Serum or plasma creatinine measurement w ith calculation of estimated glomerular filtration rate 52 NRG Serum or plasma glucose measurement (mass/volume) 238 mg/dL 70-105 Serum or plasma calcium measurement (mass/volume) 9.0 mg/dL 8.5-10.1 Serum or plasma total bilirubin measurement (mass/volu me) 0.1 mg/dL 0.1-1.0 Serum or plasma alkaline phosphatase rosetta surement (enzymatic activity/volume) 72 U/L 40-136 Serum or plasma aspartate aminotransfera se measurement (enzymatic activity/volume) 6 U/L 5-34 Serum or plasma alanine aminotransferase measurement (enzymatic activity/volume) < U/L 0-55 Serum or plasma protein measurement (mass/volume) 6.4 g/dL 6.4-8.2 Serum or plasma albumin measurement (mass/volume) 3.4 g/dL 3.2-4.5 CALCIUM CORRECTED 9.5 mg/dL 8.5-10.1 Comprehensive metabolic panel - 09/09/19 15:50 Serum or plasma sodium measurement (moles/volume) 136 mmol/L 135-145 Serum or plasma potassium measurement (moles/volume) 5.9 mmol/L 3.6-5.0 Serum or plasma chloride measurement (moles/volume) 101 mmol/L 98-107 Carbon dioxide 24 mmol/L -32 Serum or plasma anion gap determination (moles/volume) 11 mmol/L 5-14 Serum or plasma urea nitrogen measurement (mass/volume ) 35 mg/dL 7-18 Serum or plasma creatinine measurement (mass/volume) 1.63 mg/dL 0.60-1.30 Serum or plasma urea nitrogen/creatinine mass ratio 21 NRG Serum or plasma creatinine measurement w ith calculation of estimated glomerular filtration rate 33 NRG Serum or plasma glucose measurement (mass/volume) 122 mg/dL 70-105 Serum or plasma calcium measurement (mass/volume) 8.9 mg/dL 8.5-10.1 Serum or plasma total bilirubin measurement (mass/volu me) 0.2 mg/dL 0.1-1.0 Serum or plasma alkaline phosphatase rosetta surement (enzymatic activity/volume) 59 U/L 40-136 Serum or plasma aspartate aminotransfera se measurement (enzymatic activity/volume) 10 U/L 5-34 Serum or plasma alanine aminotransferase measurement (enzymatic activity/volume) 18 U/L 0-55 Serum or plasma protein measurement (mass/volume) 6.2 g/dL 6.4-8.2 Serum or plasma albumin measurement (mass/volume) 3.8 g/dL 3.2-4.5 CALCIUM CORRECTED 9.1 mg/dL 8.5-10.1 Complete blood count (CBC) with automate d white blood cell (WBC) differential - 09/09/19 16:40 Blood leukocytes automated count (number/volume) 8.8 10*3/uL 4.3-11.0 Blood erythrocytes automated count (number/volume) 4.13 10*6/uL 4.35-5.85 Venous blood hemoglobin measurement (mass/volume) 12.4 g/dL 11.5-16.0 Blood hematocrit (volume fraction) 41 % 35-52 Automated erythrocyte mean corpuscular volume 99 [ foz_us] 80-99 Automated erythrocyte mean corpuscular h emoglobin (mass per erythrocyte) 30 pg 25-34 Automated erythrocyte mean corpuscular h emoglobin concentration measurement (mass/volume) 30 g/dL 32-36 Automated erythrocyte distribution width ratio 19. 1 % 10.0- 14.5 Automated blood platelet count (count/volume) 485 10*3/uL 130-400 Automated blood platelet mean volume measurement 10.4 [foz_us] 7.4-10.4 Automated blood neutrophils/100 leukocytes 89 % 42-75 Automated blood lymphocytes/100 leukocytes 5 % 12-44 Blood monocytes/100 leukocytes 6 % 0-12 Automated blood eosinophils/100 leukocytes 0 % 0-10 Automated blood basophils/100 leukocytes 0 % 0-10 Blood neutrophils automated count (number/volume) 7.8 10*3 1.8-7.8 Blood lymphocytes automated count (number/volume) 0.4 10*3 1.0-4.0 Blood monocytes automated count (number/volume) 0. 6 10*3 0.0-1.0 Automated eosinophil count 0.0 10*3/uL 0 .0-0.3 Automated blood basophil count (count/volume) 0.0 10*3/uL 0.0-0.1 Lipase - 09/09/19 16:40 Lipase 54 U/L 8-78 Manual absolute plasma cell count - 08/26 01/12 16:40 Blood monocytes/100 leukocytes 5 % NRG Manual blood segmented neutrophils/100 leukocytes 86 % NRG Blood band neutrophils/100 leukocytes 3 % NRG Manual blood lymphocytes/100 leukocytes 6 % NRG Blood polychromasia detection by light microscopy SLIGHT NRG Blood anisocytosis detection by light microscopy M ODERATE NRG Blood hypochromia detection by light microscopy SL IGHT NRG Serum or plasma lithium measurement (mol es/volume) - 09/09/19 16:40 BNP PT 43.1 pg/mL <100.0 Urine drug screening test - 09/09/19 16: 55 Urine phencyclidine detection by screening method NEGATIVE NEGATIVE Urine benzodiazepines detection by screening method NEGATIVE NEGATIVE Urine cocaine detection NEGATIVE NEGATI VE Urine amphetamines detection by screening method N EGATIVE NEGATIVE Urine methamphetamine detection by screening method NEGATIVE NEGATIVE Urine cannabinoids detection by screening method P OSITIVE NEGATIVE Urine opiates detection by screening method POSITI VE NEGATIVE Urine barbiturates detection NEGATIVE N EGATIVE Screening urine tricyclic antidepressants detection NEGATIVE NEGATIVE Urine methadone detection by screening method NEGA TIVE NEGATIVE Urine oxycodone detection NEGATIVE NEGA TIVE Urine propoxyphene detection NEGATIVE N EGATIVE Complete urinalysis with reflex to cultu re - 09/09/19 16:55 Urine color determination YELLOW NRG Urine clarity determination CLEAR NR G Urine pH measurement by test strip 6.5 5-9 Specific gravity of urine by test strip 1.015 1.016-1.022 Urine protein assay by test strip, semi-quantitative NEGATIVE NEGATIVE Urine glucose detection by automated test strip NE GATIVE NEGATIVE Erythrocytes detection in urine sediment by light micr oscopy NEGATIVE NEGATIVE Urine ketones detection by automated test strip NE GATIVE NEGATIVE Urine nitrite detection by test strip NEGATIVE NEGATIVE Urine total bilirubin detection by test strip NEGA TIVE NEGATIVE Urine urobilinogen measurement by automated test strip (mass/volume) 0.2 mg/dL < = 1.0 Urine leukocyte esterase detection by dipstick NEG ATIVE NEGATIVE Automated urine sediment erythrocyte cou nt by microscopy (number/high power field) NONE NRG Automated urine sediment leukocyte count by microscopy (number/high power field) RARE NRG Bacteria detection in urine sediment by light microsco py TRACE NRG Squamous epithelial cells detection in u rine sediment by light microscopy 0-2 NRG Crystals detection in urine sediment by light microsco py PRESENT NRG Casts detection in urine sediment by light microscopy NONE NRG Mucus detection in urine sediment by light microscopy NEGATIVE NRG Complete urinalysis with reflex to culture NO NRG Amorphous sediment detection in urine sediment by ligh t microscopy FEW PATY URATES NRG Blood lactic acid measurement (moles/vol ume) - 09/09/19 19:45 Blood lactic acid measurement (moles/volume) 1.32 mmol/L 0.50-2.00 Bacterial blood culture - 09/09/19 19:45 Bacterial blood culture NG NRG Bacterial blood culture - 09/09/19 19:55 Bacterial blood culture NG NRG Sputum Gram stain - 09/09/19 22:07 Sputum Gram stain Mixed Bacterial Robert NRG Bacterial sputum culture - 09/09/19 22:0 7 QUANTITY OF GROWTH . NRG Bacterial sputum culture USUAL RESP NRG Serum or plasma triglyceride measurement (mass/volume) - 09/09/19 23:05 Serum or plasma triglyceride measurement (mass/volume) 107 mg/dL <150 Arterial blood gas measurement - 0 23:21 Blood pCO2 56 mm[Hg] 35-45 Blood pO2 339 mm[Hg] 79-93 Arterial blood bicarbonate measurement (moles/volume) 28 mmol/L 23-27 Arterial blood base excess by calculation 2.3 mmol /L -2.5-2.5 Arterial blood oxygen saturation measurement 100 % 94-100 * Inhaled oxygen flow rate 80% NRG Arterial blood pH measurement with patient temperature correction 7.32 7.37-7.43 Arterial blood carbon dioxide, total measurement (mole s/volume) 29.8 mmol/L 21.0-31.0 Body site R RAD NRG Assessment of wrist artery patency prior to arterial p uncture YES-POS NRG Setting of ventilation mode YES NR G Measurement of body temperature 36.2 NRG Methicillin resistant Staphylococcus aur eus (MRSA) screening culture - 09/10/19 00:16 Methicillin resistant Staphylococcus aureus (MRSA) scr eening culture NEG NRG Complete blood count (CBC) with automate d white blood cell (WBC) differential - 09/10/19 02:00 Blood leukocytes automated count (number/volume) 24.8 10*3/uL 4.3-11.0 Blood erythrocytes automated count (number/volume) 4.28 10*6/uL 4.35-5.85 Venous blood hemoglobin measurement (mass/volume) 12.7 g/dL 11.5-16.0 Blood hematocrit (volume fraction) 42 % 35-52 Automated erythrocyte mean corpuscular volume 99 [ foz_us] 80-99 Automated erythrocyte mean corpuscular h emoglobin (mass per erythrocyte) 30 pg 25-34 Automated erythrocyte mean corpuscular h emoglobin concentration measurement (mass/volume) 30 g/dL 32-36 Automated erythrocyte distribution width ratio 19. 0 % 10.0- 14.5 Automated blood platelet count (count/volume) 443 10*3/uL 130-400 Automated blood platelet mean volume measurement 10.4 [foz_us] 7.4-10.4 Automated blood neutrophils/100 leukocytes 91 % 42-75 Automated blood lymphocytes/100 leukocytes 2 % 12-44 Blood monocytes/100 leukocytes 7 % 0-12 Automated blood eosinophils/100 leukocytes 0 % 0-10 Automated blood basophils/100 leukocytes 0 % 0-10 Blood neutrophils automated count (number/volume) 22.6 10*3 1.8-7.8 Blood lymphocytes automated count (number/volume) 0.5 10*3 1.0-4.0 Blood monocytes automated count (number/volume) 1. 6 10*3 0.0-1.0 Automated eosinophil count 0.0 10*3/uL 0 .0-0.3 Automated blood basophil count (count/volume) 0.0 10*3/uL 0.0-0.1 Manual absolute plasma cell count - 08/26 02/12 02:00 Blood monocytes/100 leukocytes 6 % NRG Manual blood segmented neutrophils/100 leukocytes 86 % NRG Blood band neutrophils/100 leukocytes 7 % NRG Manual blood lymphocytes/100 leukocytes 1 % NRG Manual eosinophils/100 leukocytes in nose 0 % NRG Manual blood basophils/100 leukocytes 0 % NRG Blood polychromasia detection by light microscopy SLIGHT NRG Blood anisocytosis detection by light microscopy M ODERATE NRG Blood macrocytes detection by light microscopy MOD ERATE NRG Blood hypochromia detection by light microscopy [facility] DERATE [facility] Blood microcytes detection by light microscopy [facility] Blood dacrocytes detection by light microscopy [facility] Comprehensive metabolic panel - 09/10/19 02:00 Serum or plasma sodium measurement (moles/volume) 136 mmol/L 135-145 Serum or plasma potassium measurement (moles/volume) 4.7 mmol/L 3.6-5.0 Serum or plasma chloride measurement (moles/volume) 100 mmol/L 98-107 Carbon dioxide 21 mmol/L 21-32 Serum or plasma anion gap determination (moles/volume) 15 mmol/L 5-14 Serum or plasma urea nitrogen measurement (mass/volume ) 32 mg/dL 7-18 Serum or plasma creatinine measurement (mass/volume) 1.39 mg/dL 0.60-1.30 Serum or plasma urea nitrogen/creatinine mass ratio 23 NRG Serum or plasma creatinine measurement w ith calculation of estimated glomerular filtration rate 40 NRG Serum or plasma glucose measurement (mass/volume) 112 mg/dL 70-105 Serum or plasma calcium measurement (mass/volume) 8.7 mg/dL 8.5-10.1 Serum or plasma total bilirubin measurement (mass/volu me) 0.2 mg/dL 0.1-1.0 Serum or plasma alkaline phosphatase rosetta surement (enzymatic activity/volume) 60 U/L 40-136 Serum or plasma aspartate aminotransfera se measurement (enzymatic activity/volume) 11 U/L 5-34 Serum or plasma alanine aminotransferase measurement (enzymatic activity/volume) 18 U/L 0-55 Serum or plasma protein measurement (mass/volume) 6.2 g/dL 6.4-8.2 Serum or plasma albumin measurement (mass/volume) 3.6 g/dL 3.2-4.5 CALCIUM CORRECTED 9.0 mg/dL 8.5-10.1 Magnesium - 09/10/19 02:00 Magnesium 1.9 mg/dL 1.6-2.4 Arterial blood gas measurement - 0 02:50 Blood pCO2 48 mm[Hg] 35-45 Blood pO2 139 mm[Hg] 79-93 Arterial blood bicarbonate measurement (moles/volume) 31 mmol/L 23-27 Arterial blood base excess by calculation 6.7 mmol /L -2.5-2.5 Arterial blood oxygen saturation measurement 99 % 94-100 * Inhaled oxygen flow rate 60% NRG Arterial blood pH measurement with patient temperature correction 7.42 7.37-7.43 Arterial blood carbon dioxide, total measurement (mole s/volume) 32.7 mmol/L 21.0-31.0 Body site L RAD NRG Assessment of wrist artery patency prior to arterial p uncture YES-POS NRG Setting of ventilation mode YES NR G Measurement of body temperature 36.4 NRG Capillary blood glucose measurement by g lucometer (mass/volume) - 09/10/19 12:11 Capillary blood glucose measurement by glucometer (mas s/volume) 72 mg/dL 70-110 Complete blood count (CBC) with automate d white blood cell (WBC) differential - 09/11/19 05:49 Blood leukocytes automated count (number/volume) 8.3 10*3/uL 4.3-11.0 Blood erythrocytes automated count (number/volume) 3.44 10*6/uL 4.35-5.85 Venous blood hemoglobin measurement (mass/volume) 10.1 g/dL 11.5-16.0 Blood hematocrit (volume fraction) 35 % 35-52 Automated erythrocyte mean corpuscular volume 101 [foz_us] 80-99 Automated erythrocyte mean corpuscular h emoglobin (mass per erythrocyte) 29 pg 25-34 Automated erythrocyte mean corpuscular h emoglobin concentration measurement (mass/volume) 29 g/dL 32-36 Automated erythrocyte distribution width ratio 19. 0 % 10.0- 14.5 Automated blood platelet count (count/volume) 307 10*3/uL 130-400 Automated blood platelet mean volume measurement 10.4 [foz_us] 7.4-10.4 Automated blood neutrophils/100 leukocytes 65 % 42-75 Automated blood lymphocytes/100 leukocytes 19 % 12-44 Blood monocytes/100 leukocytes 15 % 0-12 Automated blood eosinophils/100 leukocytes 1 % 0-10 Automated blood basophils/100 leukocytes 0 % 0-10 Blood neutrophils automated count (number/volume) 5.4 10*3 1.8-7.8 Blood lymphocytes automated count (number/volume) 1.6 10*3 1.0-4.0 Blood monocytes automated count (number/volume) 1. 3 10*3 0.0-1.0 Automated eosinophil count 0.1 10*3/uL 0 .0-0.3 Automated blood basophil count (count/volume) 0.0 10*3/uL 0.0-0.1 Whole blood basic metabolic panel - 08/26 03/14 05:49 Serum or plasma sodium measurement (moles/volume) 140 mmol/L 135-145 Serum or plasma potassium measurement (moles/volume) 4.4 mmol/L 3.6-5.0 Serum or plasma chloride measurement (moles/volume) 110 mmol/L 98-107 Carbon dioxide 23 mmol/L 21-32 Serum or plasma anion gap determination (moles/volume) 7 mmol/L 5-14 Serum or plasma urea nitrogen measurement (mass/volume ) 21 mg/dL 7-18 Serum or plasma creatinine measurement (mass/volume) 1.11 mg/dL 0.60-1.30 Serum or plasma urea nitrogen/creatinine mass ratio 19 NRG Serum or plasma creatinine measurement w ith calculation of estimated glomerular filtration rate 52 NRG Serum or plasma glucose measurement (mass/volume) 89 mg/dL 70-105 Serum or plasma calcium measurement (mass/volume) 7.9 mg/dL 8.5-10.1 Serum or plasma phosphate measurement (m ass/volume) - 09/11/19 05:49 Serum or plasma phosphate measurement (mass/volume) 2.9 mg/dL 2.3-4.7 Magnesium - 09/11/19 05:49 Magnesium 1.7 mg/dL 1.6-2.4 Serum or plasma triglyceride measurement (mass/volume) - 09/11/19 05:49 Serum or plasma triglyceride measurement (mass/volume) 70 mg/dL <150 Complete blood count (CBC) with automate d white blood cell (WBC) differential - 09/16/19 11:15 Blood leukocytes automated count (number/volume) 12.9 10*3/uL 4.3-11.0 Blood erythrocytes automated count (number/volume) 3.98 10*6/uL 4.35-5.85 Venous blood hemoglobin measurement (mass/volume) 11.8 g/dL 11.5-16.0 Blood hematocrit (volume fraction) 39 % 35-52 Automated erythrocyte mean corpuscular volume 98 [ foz_us] 80-99 Automated erythrocyte mean corpuscular h emoglobin (mass per erythrocyte) 30 pg 25-34 Automated erythrocyte mean corpuscular h emoglobin concentration measurement (mass/volume) 30 g/dL 32-36 Automated erythrocyte distribution width ratio 18. 6 % 10.0- 14.5 Automated blood platelet count (count/volume) 330 10*3/uL 130-400 Automated blood platelet mean volume measurement 10.3 [foz_us] 7.4-10.4 Automated blood neutrophils/100 leukocytes 91 % 42-75 Automated blood lymphocytes/100 leukocytes 2 % 12-44 Blood monocytes/100 leukocytes 7 % 0-12 Automated blood eosinophils/100 leukocytes 0 % 0-10 Automated blood basophils/100 leukocytes 0 % 0-10 Blood neutrophils automated count (number/volume) 11.7 10*3 1.8-7.8 Blood lymphocytes automated count (number/volume) 0.3 10*3 1.0-4.0 Blood monocytes automated count (number/volume) 0. 9 10*3 0.0-1.0 Automated eosinophil count 0.0 10*3/uL 0 .0-0.3 Automated blood basophil count (count/volume) 0.0 10*3/uL 0.0-0.1 Blood lactic acid measurement (moles/vol ume) - 09/16/19 11:15 Blood lactic acid measurement (moles/volume) 1.63 mmol/L 0.50-2.00 Comprehensive metabolic panel - 09/16/19 11:15 Serum or plasma sodium measurement (moles/volume) 138 mmol/L 135-145 Serum or plasma potassium measurement (moles/volume) 5.0 mmol/L 3.6-5.0 Serum or plasma chloride measurement (moles/volume) 100 mmol/L 98-107 Carbon dioxide 26 mmol/L 21-32 Serum or plasma anion gap determination (moles/volume) 12 mmol/L 5-14 Serum or plasma urea nitrogen measurement (mass/volume ) 22 mg/dL 7-18 Serum or plasma creatinine measurement (mass/volume) 1.22 mg/dL 0.60-1.30 Serum or plasma urea nitrogen/creatinine mass ratio 18 NRG Serum or plasma creatinine measurement w ith calculation of estimated glomerular filtration rate 46 NRG Serum or plasma glucose measurement (mass/volume) 107 mg/dL 70-105 Serum or plasma calcium measurement (mass/volume) 10.3 mg/dL 8.5-10.1 Serum or plasma total bilirubin measurement (mass/volu me) 0.2 mg/dL 0.1-1.0 Serum or plasma alkaline phosphatase rosetta surement (enzymatic activity/volume) 60 U/L 40-136 Serum or plasma aspartate aminotransfera se measurement (enzymatic activity/volume) 9 U/L 5-34 Serum or plasma alanine aminotransferase measurement (enzymatic activity/volume) 17 U/L 0-55 Serum or plasma protein measurement (mass/volume) 6.8 g/dL 6.4-8.2 Serum or plasma albumin measurement (mass/volume) 3.9 g/dL 3.2-4.5 CALCIUM CORRECTED 10.4 mg/dL 8.5-10.1 Serum or plasma C reactive protein measu rement (mass/volume) - 09/16/19 11:15 Serum or plasma C reactive protein measurement (mass/v olume) 2.37 mg/dL 0.00-0.50 Manual absolute plasma cell count - 08/27 10/15 11:15 Blood monocytes/100 leukocytes 3 % NRG Manual blood segmented neutrophils/100 leukocytes 92 % NRG Blood band neutrophils/100 leukocytes 2 % NRG Manual blood lymphocytes/100 leukocytes 3 % NRG Manual eosinophils/100 leukocytes in nose 0 % NRG Manual blood basophils/100 leukocytes 0 % NRG Blood anisocytosis detection by light microscopy S LIGHT NRG Blood macrocytes detection by light microscopy I T NRG Blood hypochromia detection by light microscopy SL IGHT NRG Blood microcytes detection by light microscopy [facility] NRG PT panel in platelet poor plasma by coag ulation assay - 09/16/19 11:15 Prothrombin time (PT) in platelet poor plasma by coagu lation assay 12.5 s 12.2-14.7 INR in platelet poor plasma or blood by coagulation as say 0.9 0.8-1.4 Activated partial thromboplastin time (a PTT) in platelet poor plasma bycoagulation assay - 09/16/19 11:15 Activated partial thromboplastin time (a PTT) in platelet poor plasma bycoagulation assay 29 s 24-35 Bacterial blood culture - 09/16/19 11:15 Bacterial blood culture NG NRG Complete urinalysis with reflex to cultu re - 09/16/19 11:24 Urine color determination YELLOW NRG Urine clarity determination CLEAR NR G Urine pH measurement by test strip 7.0 5-9 Specific gravity of urine by test strip 1.020 1.016-1.022 Urine protein assay by test strip, semi-quantitative TRACE NEGATIVE Urine glucose detection by automated test strip NE GATIVE NEGATIVE Erythrocytes detection in urine sediment by light micr oscopy NEGATIVE NEGATIVE Urine ketones detection by automated test strip NE GATIVE NEGATIVE Urine nitrite detection by test strip NEGATIVE NEGATIVE Urine total bilirubin detection by test strip NEGA TIVE NEGATIVE Urine urobilinogen measurement by automated test strip (mass/volume) 0.2 mg/dL < = 1.0 Urine leukocyte esterase detection by dipstick NEG ATIVE NEGATIVE Automated urine sediment erythrocyte cou nt by microscopy (number/high power field) NONE NRG Automated urine sediment leukocyte count by microscopy (number/high power field) RARE NRG Bacteria detection in urine sediment by light microsco py TRACE NRG Squamous epithelial cells detection in u rine sediment by light microscopy 2-5 NRG Crystals detection in urine sediment by light microsco py NONE NRG Casts detection in urine sediment by light microscopy NONE NRG Mucus detection in urine sediment by light microscopy NEGATIVE NRG Complete urinalysis with reflex to culture CULTURE PENDING NRG Bacterial urine culture - 09/16/19 11:24 Bacterial urine culture NG NRG Bacterial blood culture - 09/16/19 11:35 FREE TEXT EXTERNAL SUSCEPTIBILITY REPORTED 09-19-19 , 1120. NRG QUANTITY OF GROWTH . NRG Bacterial blood culture SEE COMMEN NRG FREE TEXT ENTRY 2 PRELIM RAPID ID AT [facility] 09-18-19, 1609. NRG FREE TEXT ENTRY 3 ID CONFIRMED BY [facility] N RG [facility] - 09/16/19 11:3 5 Gentamicin susceptibility test by minimum inhibitory c oncentration <= NRG Trimethoprim/sulfamethoxazole susceptibi lity test by minimum inhibitoryconcentration <= NRG Levofloxacin susceptibility test by minimum inhibitory concentration > NRG Ampicillin susceptibility test by minimum inhibitory c oncentration > NRG Cefazolin susceptibility test by minimum inhibitory co ncentration > NRG Ceftriaxone susceptibility test by minimum inhibitory concentration > NRG Piperacillin/tazobactam susceptibility t est by minimum inhibitory concentration R NRG Ciprofloxacin susceptibility test by minimum inhibitor y concentration > NRG Meropenem susceptibility test by minimum inhibitory co ncentration <= NRG Amoxicillin and clavulanate potassium susc CHELSY R NRG Imipenem susceptibility test by minimum inhibitory con centration <= NRG Complete blood count (CBC) with automate d white blood cell (WBC) differential - 09/18/19 04:35 Blood leukocytes automated count (number/volume) 9.0 10*3/uL 4.3-11.0 Blood erythrocytes automated count (number/volume) 3.58 10*6/uL 4.35-5.85 Venous blood hemoglobin measurement (mass/volume) 10.4 g/dL 11.5-16.0 Blood hematocrit (volume fraction) 35 % 35-52 Automated erythrocyte mean corpuscular volume 98 [ foz_us] 80-99 Automated erythrocyte mean corpuscular h emoglobin (mass per erythrocyte) 29 pg 25-34 Automated erythrocyte mean corpuscular h emoglobin concentration measurement (mass/volume) 30 g/dL 32-36 Automated erythrocyte distribution width ratio 18. 5 % 10.0- 14.5 Automated blood platelet count (count/volume) 332 10*3/uL 130-400 Automated blood platelet mean volume measurement 10.7 [foz_us] 7.4-10.4 Automated blood neutrophils/100 leukocytes 69 % 42-75 Automated blood lymphocytes/100 leukocytes 15 % 12-44 Blood monocytes/100 leukocytes 15 % 0-12 Automated blood eosinophils/100 leukocytes 2 % 0-10 Automated blood basophils/100 leukocytes 0 % 0-10 Blood neutrophils automated count (number/volume) 6.2 10*3 1.8-7.8 Blood lymphocytes automated count (number/volume) 1.4 10*3 1.0-4.0 Blood monocytes automated count (number/volume) 1. 3 10*3 0.0-1.0 Automated eosinophil count 0.2 10*3/uL 0 .0-0.3 Automated blood basophil count (count/volume) 0.0 10*3/uL 0.0-0.1 Whole blood basic metabolic panel - 08/27 12/13 04:35 Serum or plasma sodium measurement (moles/volume) 146 mmol/L 135-145 Serum or plasma potassium measurement (moles/volume) 4.1 mmol/L 3.6-5.0 Serum or plasma chloride measurement (moles/volume) 105 mmol/L 98-107 Carbon dioxide 29 mmol/L 21-32 Serum or plasma anion gap determination (moles/volume) 12 mmol/L 5-14 Serum or plasma urea nitrogen measurement (mass/volume ) 34 mg/dL 7-18 Serum or plasma creatinine measurement (mass/volume) 1.41 mg/dL 0.60-1.30 Serum or plasma urea nitrogen/creatinine mass ratio 24 NRG Serum or plasma creatinine measurement w ith calculation of estimated glomerular filtration rate 39 NRG Serum or plasma glucose measurement (mass/volume) 106 mg/dL 70-105 Serum or plasma calcium measurement (mass/volume) 9.8 mg/dL 8.5-10.1 Complete blood count (CBC) with automate d white blood cell (WBC) differential - 09/19/19 05:01 Blood leukocytes automated count (number/volume) 8.7 10*3/uL 4.3-11.0 Blood erythrocytes automated count (number/volume) 3.64 10*6/uL 4.35-5.85 Venous blood hemoglobin measurement (mass/volume) 10.5 g/dL 11.5-16.0 Blood hematocrit (volume fraction) 35 % 35-52 Automated erythrocyte mean corpuscular volume 97 [ foz_us] 80-99 Automated erythrocyte mean corpuscular h emoglobin (mass per erythrocyte) 29 pg 25-34 Automated erythrocyte mean corpuscular h emoglobin concentration measurement (mass/volume) 30 g/dL 32-36 Automated erythrocyte distribution width ratio 18. 4 % 10.0- 14.5 Automated blood platelet count (count/volume) 313 10*3/uL 130-400 Automated blood platelet mean volume measurement 10.6 [foz_us] 7.4-10.4 Automated blood neutrophils/100 leukocytes 87 % 42-75 Automated blood lymphocytes/100 leukocytes 5 % 12-44 Blood monocytes/100 leukocytes 8 % 0-12 Automated blood eosinophils/100 leukocytes 0 % 0-10 Automated blood basophils/100 leukocytes 0 % 0-10 Blood neutrophils automated count (number/volume) 7.6 10*3 1.8-7.8 Blood lymphocytes automated count (number/volume) 0.4 10*3 1.0-4.0 Blood monocytes automated count (number/volume) 0. 7 10*3 0.0-1.0 Automated eosinophil count 0.0 10*3/uL 0 .0-0.3 Automated blood basophil count (count/volume) 0.0 10*3/uL 0.0-0.1 Whole blood basic metabolic panel - 08/27 01/12 05:01 Serum or plasma sodium measurement (moles/volume) 136 mmol/L 135-145 Serum or plasma potassium measurement (moles/volume) 4.7 mmol/L 3.6-5.0 Serum or plasma chloride measurement (moles/volume) 98 mmol/L 98-107 Carbon dioxide 27 mmol/L 21-32 Serum or plasma anion gap determination (moles/volume) 11 mmol/L 5-14 Serum or plasma urea nitrogen measurement (mass/volume ) 26 mg/dL 7-18 Serum or plasma creatinine measurement (mass/volume) 1.14 mg/dL 0.60-1.30 Serum or plasma urea nitrogen/creatinine mass ratio 23 NRG Serum or plasma creatinine measurement w ith calculation of estimated glomerular filtration rate 50 NRG Serum or plasma glucose measurement (mass/volume) 113 mg/dL 70-105 Serum or plasma calcium measurement (mass/volume) 10.2 mg/dL 8.5-10.1 Influenza virus A and B antigen detectio n - 10/29/19 21:20 FLU RESULT NEGATIVE FOR INFLUENZA A AND B ANTIGENS BY IA NRG Complete blood count (CBC) with automate d white blood cell (WBC) differential - 10/29/19 21:21 Blood leukocytes automated count (number/volume) 22.3 10*3/uL 4.3-11.0 Blood erythrocytes automated count (number/volume) 4.35 10*6/uL 4.35-5.85 Venous blood hemoglobin measurement (mass/volume) 11.3 g/dL 11.5-16.0 Blood hematocrit (volume fraction) 40 % 35-52 Automated erythrocyte mean corpuscular volume 91 [ foz_us] 80-99 Automated erythrocyte mean corpuscular h emoglobin (mass per erythrocyte) 26 pg 25-34 Automated erythrocyte mean corpuscular h emoglobin concentration measurement (mass/volume) 29 g/dL 32-36 Automated erythrocyte distribution width ratio 18. 8 % 10.0- 14.5 Automated blood platelet count (count/volume) 295 10*3/uL 130-400 Automated blood platelet mean volume measurement 11.0 [foz_us] 7.4-10.4 Automated blood neutrophils/100 leukocytes 78 % 42-75 Automated blood lymphocytes/100 leukocytes 7 % 12-44 Blood monocytes/100 leukocytes 14 % 0-12 Automated blood eosinophils/100 leukocytes 1 % 0-10 Automated blood basophils/100 leukocytes 0 % 0-10 Blood neutrophils automated count (number/volume) 17.3 10*3 1.8-7.8 Blood lymphocytes automated count (number/volume) 1.6 10*3 1.0-4.0 Blood monocytes automated count (number/volume) 3. 0 10*3 0.0-1.0 Automated eosinophil count 0.3 10*3/uL 0 .0-0.3 Automated blood basophil count (count/volume) 0.1 10*3/uL 0.0-0.1 Comprehensive metabolic panel - 10/29/19 21:21 Serum or plasma sodium measurement (moles/volume) 140 mmol/L 135-145 Serum or plasma potassium measurement (moles/volume) 4.4 mmol/L 3.6-5.0 Serum or plasma chloride measurement (moles/volume) 106 mmol/L 98-107 Carbon dioxide 21 mmol/L 21-32 Serum or plasma anion gap determination (moles/volume) 13 mmol/L 5-14 Serum or plasma urea nitrogen measurement (mass/volume ) 17 mg/dL 7-18 Serum or plasma creatinine measurement (mass/volume) 1.14 mg/dL 0.60-1.30 Serum or plasma urea nitrogen/creatinine mass ratio 15 NRG Serum or plasma creatinine measurement w ith calculation of estimated glomerular filtration rate 50 NRG Serum or plasma glucose measurement (mass/volume) 124 mg/dL 70-105 Serum or plasma calcium measurement (mass/volume) 9.8 mg/dL 8.5-10.1 Serum or plasma total bilirubin measurement (mass/volu me) 0.2 mg/dL 0.1-1.0 Serum or plasma alkaline phosphatase rosetta surement (enzymatic activity/volume) 80 U/L 40-136 Serum or plasma aspartate aminotransfera se measurement (enzymatic activity/volume) 16 U/L 5-34 Serum or plasma alanine aminotransferase measurement (enzymatic activity/volume) 7 U/L 0-55 Serum or plasma protein measurement (mass/volume) 7.6 g/dL 6.4-8.2 Serum or plasma albumin measurement (mass/volume) 4.1 g/dL 3.2-4.5 CALCIUM CORRECTED 9.7 mg/dL 8.5-10.1 Manual absolute plasma cell count - 01/12 21:21 Blood monocytes/100 leukocytes 8 % NRG Manual blood segmented neutrophils/100 leukocytes 81 % NRG Blood band neutrophils/100 leukocytes 7 % NRG Manual blood lymphocytes/100 leukocytes 4 % NRG Manual eosinophils/100 leukocytes in nose 0 % NRG Manual blood basophils/100 leukocytes 0 % NRG Blood anisocytosis detection by light microscopy S LIGHT NRG Blood macrocytes detection by light microscopy SLI GHT NRG Blood hypochromia detection by light microscopy SL IGHT NRG Blood microcytes detection by light microscopy SLI GHT NRG Serum or plasma lithium measurement (mol es/volume) - 10/29/19 21:21 BNP PT 39.4 pg/mL <100.0 PROCALCITONIN (PCT) - 10/29/19 21:21 PROCALCITONIN (PCT) 3.04 ng/mL <0.10 Blood lactic acid measurement (moles/vol ume) - 10/29/19 21:33 Blood lactic acid measurement (moles/volume) 0.92 mmol/L 0.50-2.00 Bacterial blood culture - 10/29/19 21:33 Bacterial blood culture NG NRG Arterial blood gas measurement - 0 21:45 Blood pCO2 58 mm[Hg] 35-45 Blood pO2 237 mm[Hg] 79-93 Arterial blood bicarbonate measurement (moles/volume) 27 mmol/L 23-27 Arterial blood base excess by calculation 1.5 mmol /L -2.5-2.5 Arterial blood oxygen saturation measurement 99 % 94-100 * Inhaled oxygen flow rate 80% NRG Arterial blood pH measurement with patient temperature correction 7.29 7.37-7.43 Arterial blood carbon dioxide, total measurement (mole s/volume) 29.2 mmol/L 21.0-31.0 Body site RIGHT RADIAL NRG Assessment of wrist artery patency prior to arterial p uncture YES-POS NRG Setting of ventilation mode NO NR G Measurement of body temperature 37.0 NRG Bacterial blood culture - 10/29/19 22:00 Bacterial blood culture NG NRG Complete urinalysis with reflex to cultu re - 10/29/19 22:12 Urine color determination YELLOW NRG Urine clarity determination CLEAR NR G Urine pH measurement by test strip 6.0 5-9 Specific gravity of urine by test strip >= 1.016-1.022 Urine protein assay by test strip, semi-quantitative 2+ NEGATIVE Urine glucose detection by automated test strip NE GATIVE NEGATIVE Erythrocytes detection in urine sediment by light micr oscopy 1+ NEGATIVE Urine ketones detection by automated test strip NE GATIVE NEGATIVE Urine nitrite detection by test strip NEGATIVE NEGATIVE Urine total bilirubin detection by test strip NEGA TIVE NEGATIVE Urine urobilinogen measurement by automated test strip (mass/volume) 0.2 mg/dL < = 1.0 Urine leukocyte esterase detection by dipstick NEG ATIVE NEGATIVE Automated urine sediment erythrocyte cou nt by microscopy (number/high power field) [HPF] NRG Automated urine sediment leukocyte count by microscopy (number/high power field) NONE NRG Bacteria detection in urine sediment by light microsco py NEGATIVE NRG Squamous epithelial cells detection in u rine sediment by light microscopy 2-5 NRG Crystals detection in urine sediment by light microsco py NONE NRG Casts detection in urine sediment by light microscopy PRESENT NRG Mucus detection in urine sediment by light microscopy SMALL NRG Complete urinalysis with reflex to culture NO NRG Granular casts detection in urine sediment by light mi croscopy RARE NRG Urine drug screening test - 10/29/19 22: 12 Urine phencyclidine detection by screening method NEGATIVE NEGATIVE Urine benzodiazepines detection by screening method NEGATIVE NEGATIVE Urine cocaine detection NEGATIVE NEGATI VE Urine amphetamines detection by screening method N EGATIVE NEGATIVE Urine methamphetamine detection by screening method NEGATIVE NEGATIVE Urine cannabinoids detection by screening method P OSITIVE NEGATIVE Urine opiates detection by screening method POSITI VE NEGATIVE Urine barbiturates detection NEGATIVE N EGATIVE Screening urine tricyclic antidepressants detection NEGATIVE NEGATIVE Urine methadone detection by screening method NEGA TIVE NEGATIVE Urine oxycodone detection NEGATIVE NEGA TIVE Urine propoxyphene detection NEGATIVE N EGATIVE Methicillin resistant Staphylococcus aur eus (MRSA) screening culture - 10/29/19 23:15 Methicillin resistant Staphylococcus aureus (MRSA) scr eening culture NEG NRG Complete blood count (CBC) with automate d white blood cell (WBC) differential - 10/30/19 03:19 Blood leukocytes automated count (number/volume) 18.6 10*3/uL 4.3-11.0 Blood erythrocytes automated count (number/volume) 4.16 10*6/uL 4.35-5.85 Venous blood hemoglobin measurement (mass/volume) 10.7 g/dL 11.5-16.0 Blood hematocrit (volume fraction) 38 % 35-52 Automated erythrocyte mean corpuscular volume 91 [ foz_us] 80-99 Automated erythrocyte mean corpuscular h emoglobin (mass per erythrocyte) 26 pg 25-34 Automated erythrocyte mean corpuscular h emoglobin concentration measurement (mass/volume) 28 g/dL 32-36 Automated erythrocyte distribution width ratio 18. 7 % 10.0- 14.5 Automated blood platelet count (count/volume) 267 10*3/uL 130-400 Automated blood platelet mean volume measurement 10.3 [foz_us] 7.4-10.4 Automated blood neutrophils/100 leukocytes 94 % 42-75 Automated blood lymphocytes/100 leukocytes 2 % 12-44 Blood monocytes/100 leukocytes 4 % 0-12 Automated blood eosinophils/100 leukocytes 0 % 0-10 Automated blood basophils/100 leukocytes 0 % 0-10 Blood neutrophils automated count (number/volume) 17.5 10*3 1.8-7.8 Blood lymphocytes automated count (number/volume) 0.5 10*3 1.0-4.0 Blood monocytes automated count (number/volume) 0. 7 10*3 0.0-1.0 Automated eosinophil count 0.0 10*3/uL 0 .0-0.3 Automated blood basophil count (count/volume) 0.0 10*3/uL 0.0-0.1 Comprehensive metabolic panel - 10/30/19 03:19 Serum or plasma sodium measurement (moles/volume) 142 mmol/L 135-145 Serum or plasma potassium measurement (moles/volume) 3.8 mmol/L 3.6-5.0 Serum or plasma chloride measurement (moles/volume) 104 mmol/L 98-107 Carbon dioxide 27 mmol/L 21-32 Serum or plasma anion gap determination (moles/volume) 11 mmol/L 5-14 Serum or plasma urea nitrogen measurement (mass/volume ) 16 mg/dL 7-18 Serum or plasma creatinine measurement (mass/volume) 1.11 mg/dL 0.60-1.30 Serum or plasma urea nitrogen/creatinine mass ratio 14 NRG Serum or plasma creatinine measurement w ith calculation of estimated glomerular filtration rate 52 NRG Serum or plasma glucose measurement (mass/volume) 134 mg/dL 70-105 Serum or plasma calcium measurement (mass/volume) 9.9 mg/dL 8.5-10.1 Serum or plasma total bilirubin measurement (mass/volu me) 0.2 mg/dL 0.1-1.0 Serum or plasma alkaline phosphatase rosetta surement (enzymatic activity/volume) 77 U/L 40-136 Serum or plasma aspartate aminotransfera se measurement (enzymatic activity/volume) 8 U/L 5-34 Serum or plasma alanine aminotransferase measurement (enzymatic activity/volume) < U/L 0-55 Serum or plasma protein measurement (mass/volume) 7.2 g/dL 6.4-8.2 Serum or plasma albumin measurement (mass/volume) 4.0 g/dL 3.2-4.5 CALCIUM CORRECTED 9.9 mg/dL 8.5-10.1 Serum or plasma phosphate measurement (m ass/volume) - 10/30/19 03:19 Serum or plasma phosphate measurement (mass/volume) 3.4 mg/dL 2.3-4.7 Magnesium - 10/30/19 03:19 Magnesium 1.7 mg/dL 1.6-2.4 Serum or plasma troponin i.cardiac measu rement (mass/volume) - 10/30/19 03:19 Serum or plasma troponin i.cardiac measurement (mass/v olume) < ng/mL <0.028 Encounters ACCT No. Visit Date/Time Discharge Status Pt. Type Provider Facility Loc./Unit Complaint [id number] 10/24/2016 10:54:07 10/24/2016 23:59: 59 CLS Outpatient Leonel Rivers [id number] 10/29/2019 23:00:00 11:05:00 DIS Inpatient ELVIS NERI DO, V [facility] ICU RESP DISTRESS, RLL [id number] 09/17/2019 14:44:00 11:30:00 DIS Inpatient TALITA MESSER MD Via [address] HOSPITAL ACQUIRED PNEUM ONIA [id number] 09/16/2019 14:45:00 20:32:00 DIS Inpatient TALITA MESSER MD Via [address] BILAT PNEUMONIA;ABD WOU ND PAIN [id number] 09/09/2019 21:51:00 14:55:00 DIS Outpatient VALENTINO CLEMENTE DO Via [address] PERFORATED BOWEL [id number] 09/01/2019 21:05:00 11:43:00 DIS Inpatient AMAYA LAO, LASHYA Vargas Via [facility] 4TH SEPSIS,RT MIDDLE LOBE PNEUMONIA,COPD EXACERBATION [id number] 08/27/2019 13:37:00 15:25:00 DIS Emergency BRIAN MCKENNA Via [facility] ER WEAKNESS [id number] 03/06/2019 23:52:00 14:10:00 DIS Inpatient TALITA MESSER MD Via [facility] ICU OPIATE OVERDOSE, RAFIQ, A CUTEON CHRONIC RESP FAILURE [id number] 02/04/2019 23:40:00 10:24:00 DIS Inpatient TALITA MESSER MD Via [facility] 4TH PNEUMONIA,COPD,EXACERBA TION,UTI [id number] 01/20/2019 17:53:00 19:17:00 DIS Emergency HAILY STEWART Via [facility] ER R HAND PAIN [id number] 10/05/2018 18:16:00 14:25:00 DIS Inpatient AMAYA LAO, LASHAY Vargas Via [facility] 4TH SOCOPD EXACEBATION,META BOLIC ACIDOSIS [id number] 09/04/2018 22:23:00 23:30:00 DIS Emergency LEIA STARKS DO a [facility] ER L EYE SWELLING [id number] 08/16/2018 21:25:00 23:54:00 DIS Emergency STEFFEN VALDERRAMA Via [facility] ER N/V [id number] 04/18/2018 17:42:00 20:06:00 DIS Emergency JUAN C FRANCISCO APRN Via [facility] ER ABD PAIN [id number] 03/09/2018 16:15:00 11:25:00 DIS Inpatient PAIGE WAITE MD Via [facility] ICU ACUTE NARCOTIC OVERDOSE [id number] 12/07/2017 17:09:00 19:04:00 DIS Emergency JUAN C FRANCISCO APRN Via [facility] ER DIARRHEA/ABD PAIN [id number] 11/30/2017 21:36:00 018 14:13:00 DIS Inpatient REMA LAO, LOLITA M Via [facility] 4TH UTI W MULTI RESISTANT O RGANISM [id number] 11/08/2017 18:43:00 018 20:32:00 DIS Emergency STEFFEN VALDERRAMA Via [facility] ER PANCREATITIS [id number] 11/07/2017 23:54:00 018 01:22:00 DIS Emergency CAYETANO LAO, FER Li Via [facility] ER PAIN [id number] 10/31/2017 15:16:00 018 18:22:00 DIS Emergency CAYETANO LAO, FER Li Via [facility] ER LEFT FLANK PAIN /NAUSEA [id number] 08/05/2017 17:10:00 017 14:00:00 DIS Inpatient ASHLEIGH ORTEGA DO Via [facility] 4TH TYLENOL OVERDOSE,ACUTE RENAL FAILURE,UTI [id number] 05/21/2017 16:24:00 017 19:29:00 DIS Emergency JUAN C FRANCISCO APRN Via [facility] ER ABDOMINAL PAIN [id number] 08/17/2016 06:00:00 016 16:33:00 DIS Inpatient AMAYA LAO, LASHAY Vargas Via [facility] 4TH INTRA ABDOMINAL FLUID COLLECTION,PANCREATIC [id number] 08/10/2016 04:32:00 016 16:10:00 DIS Inpatient YANI BOSTON MD Via [facility] 4TH PANCREATITIS,GASTRITIS, ABD PAIN,N/V [id number] 07/21/2016 16:07:00 016 19:07:00 DIS Emergency JUAN C FRANCISCO APRN Via [facility] ER FALL/L SIDE RIB PAIN [id number] 07/15/2016 05:27:00 016 06:22:00 DIS Emergency KADE RIVERA MD Via [facility] ER AB PAIN [id number] 04/29/2016 19:07:00 016 20:49:00 DIS Emergency STEFFEN VALDERRAMA Via [facility] ER R MIDDLE FINGER INJ [id number] 07/14/2015 12:56:00 015 14:28:00 DIS Emergency STEFFEN VALDERRAMA Via [facility] ER ABD PAIN V/D [id number] 03/06/2015 20:42:00 015 15:15:00 DIS Inpatient MARINAN LAO, PAIGE Villa Via [facility] ICU SEPSIS,HYPOXIA,LEULOCYT OSIS,COPD EXACERBATION [id number] 01/11/2015 03:04:00 07:52:00 DIS Inpatient AMAYA LAO, LASHAY Vargas Via [facility] ICU DECREASED LOC SECONDARY TO NARCOTIC OD, UTI [id number] 12/15/2014 13:12:00 015 13:51:00 DIS Emergency JUAN C FRANCISCO MANAGER [employer] SERVICES Via [facility] ER POST OP STUMP BLEEDING/ PAIN [id number] 10/09/2014 11:50:00 23:59:59 CLS Emergency LEIA STARKS DO [facility] ER [id number] 08/04/2014 04:55:00 014 14:14:00 DIS Inpatient RAGHAV MATHEW DO, V ia [facility] 4TH PNEUMONIA W/HYPOXIA;RECREATION THERAPY DIRECTOR D [id number] 02/04/2014 19:32:00 014 20:15:00 DIS Emergency JUAN C FRANCISCO [employer] SERVICES Via [facility] ER ARMSTRONG,STUMP PAIN [id number] 02/01/2014 12:25:00 014 13:00:00 DIS Emergency LEIA STARKS DO [facility] ER STUMP PAIN/MIGRAINE [id number] 01/27/2014 12:08:00 014 16:21:00 DIS Emergency CAYETANO LAO, FER Li Via [facility] ER WANTS DETOX [id number] 01/21/2014 12:07:00 014 13:05:00 DIS Emergency JUAN C FRANCISCO APRN Via [facility] ER PAIN/MULTIPLE AREAS [id number] 01/20/2014 15:28:00 014 16:28:00 DIS Emergency RAUDEL , LEIA K Vi a [facility] ER HIP,BACK PAIN [id number] 12/11/2013 11:39:00 014 12:22:00 DIS Emergency JUAN C FRANCISCO MANAGER [employer] SERVICES Via [facility] ER RIGHT FOOT PAIN [id number] 10/30/2013 19:54:00 014 21:59:00 DIS Emergency JUAN C FRANCISCO APRN Via [facility] ER R FOOT PAIN [id number] 07/02/2013 10:27:00 013 23:20:00 DIS Inpatient DEONNA MORGAN MD Via [facility] ICU NARCOTIC OVERDOSE [id number] 05/21/2013 12:40:00 013 14:44:00 DIS Emergency STEFFEN VALDERRAMA Via [facility] ER LEG PAIN [id number] 04/12/2013 22:51:00 013 10:45:00 DIS Inpatient ANDREIA LAO, GREG Orozco Via [facility] ICU DRUG OVERDOSE [id number] 03/14/2013 13:55:00 013 14:32:00 DIS Inpatient ELVIS NERI DO V ia [facility] ICU DRUG OVERDOSE, PNEUMONI A [id number] 02/04/2013 22:46:00 013 13:05:00 DIS Inpatient PAIGE WAITE MD Via [facility] 4TH PNEUMONIA [id number] 12/15/2014 14:25:00 Document Registration [id number] 12/15/2014 14:25:00 Document Registration [id number] 12/15/2014 14:25:00 Document Registration [id number] 12/15/2014 14:25:00 Document Registration [id number] 12/15/2014 14:25:00 Document Registration [id number] 12/15/2014 14:25:00 Document Registration [id number] 12/15/2014 14:25:00 Document Registration [id number] 12/15/2014 14:25:00 Document Registration [id number] 12/15/2014 14:25:00 Document Registration [id number] 12/15/2014 14:25:00 Document Registration [id number] 12/15/2014 14:25:00 Document Registration [id number] 12/15/2014 14:25:00 Document Registration [id number] 12/15/2014 14:25:00 Document Registration [id number] 12/15/2014 14:25:00 Document Registration [id number] 12/15/2014 14:25:00 Document Registration [id number] 09/14/2012 16:44:00 Document Registration [id number] 07/28/2012 18:01:00 Document Registration [id number] 06/06/2012 20:36:00 Document Registration [id number] 03/18/2012 15:05:00 Document Registration [id number] 01/19/2012 11:42:00 Document Registration [id number] 09/19/2011 22:30:00 Document Registration [id number] 13:50:00 Document Registration [id number] 04/15/2011 18:14:00 Document Registration [id number] 12/11/2010 22:34:00 Document Registration [id number] 12/05/2010 18:52:00 Document Registration [id number] 10/27/2010 16:41:00 Document Registration [id number] 09/24/2010 16:25:00 Document Registration [id number] 09/08/2019 09:40:00 09/08/2019 23:59:5 9 CLS Outpatient TALITA MESSER [facility] [id number] 08/24/2019 15:00:00 Document Registration [id number] 02/16/2019 12:40:00 Document Registration [id number] 12/01/2014 14:16:00 12/01/2014 23:59: 59 CLS Outpatient MADL [employer], OLMAN L [id number] 11/03/2014 15:54:00 11/03/2014 23:59: 59 CLS Outpatient MATHEW DORAGHAV [id number] 09/22/2014 09:53:00 09/22/2014 23:59: 59 CLS Outpatient MADL 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 SOCIAL 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 L [id number] 09/10/2014 10:06:00 09/10/2014 23:59: 59 CLS Outpatient EUGENIA JESSICA MONACO [id number] 08/30/2014 11:21:00 08/30/2014 23:59: 59 CLS Outpatient QUINCY DORAGHAV [id number] 08/30/2014 11:21:00 08/30/2014 23:59: 59 CLS Outpatient MADL MANAGER SOCIAL SERVICESJOA L [id number] 08/21/2014 15:24:00 08/21/2014 23:59: 59 CLS Outpatient RAGHAV MATHEW DO [id number] 06/04/2014 09:54:00 06/04/2014 23:59: 59 CLS Outpatient QUINCY DORAGHAV Amanda [id number] 03/01/2014 10:22:00 03/01/2014 23:59: 59 CLS Outpatient [employer], OLMAN L [id number] 02/15/2014 11:06:00 02/15/2014 23:59: 59 CLS Outpatient [employer], OLMAN L [id number] 02/11/2014 09:45:00 02/11/2014 23:59: 59 CLS Outpatient [employer], OLMAN L [id number] 01/25/2014 13:20:00 01/25/2014 23:59: 59 CLS Outpatient [employer], OLMAN L
== END 2019-10-30 11:05 | disposition left against medical advice (07) ==
LOC: EDUNIT# 21:15 → ER 21:16 → ICU 22:09 → UNDOADMIN 22:09 → ICU 23:00 → UNDODISIN 10-30 11:05
PROVIDERS: ADMIT Internal Medicine; ATTEND Internal Medicine
DX: J96.20 Acute and chronic respiratory failure, unspecified whether with hypoxia or hypercapnia (principal); J44.1 Chronic obstructive pulmonary disease with (acute) exacerbation; J18.9 Pneumonia, unspecified organism; R07.9 Chest pain, unspecified; Z99.81 Dependence on supplemental oxygen; F17.210 Nicotine dependence, cigarettes, uncomplicated; I12.9 Hypertensive chronic kidney disease with stage 1 through stage 4 chronic kidney disease, or unspecified chronic kidney disease; N18.9 Chronic kidney disease, unspecified; D64.9 Anemia, unspecified; R25.1 Tremor, unspecified; G43.909 Migraine, unspecified, not intractable, without status migrainosus; K59.09 Other constipation; M81.0 Age-related osteoporosis without current pathological fracture; F41.9 Anxiety disorder, unspecified; F32.9 Major depressive disorder, single episode, unspecified; Z91.19 Patient's noncompliance with other medical treatment and regimen; Z86.73 Personal history of transient ischemic attack (TIA), and cerebral infarction without residual deficits; Z89.612 Acquired absence of left leg above knee; Z91.5 Personal history of self-harm; Z87.19 Personal history of other diseases of the digestive system; Z90.49 Acquired absence of other specified parts of digestive tract
CPT/HCPCS: 36415; 71045; 71260; 74177; 80053; 80306; 81000; 82805; 83605; 83735; 83880; 84100; 84145; 84484; 85007; 85025; 85027; 87040; 87081; 87804; 94640; 94664; 96374; 96375; G0378

== ENCOUNTER 2020-10-07 19:45 | Inpatient (IN) | payer MEDICAID ==
[~2020-10-07] VITALS: Ht 155 cm; Wt 29.6 kg
[~2020-10-07 19:45] MED LIST changes: -PANT40TA3 PO; +PANT40TA52 PO
[2020-10-07] MEDS ORDERED: ALBUTEROL/IPRATROP (COMBIVENT RESPIMAT) 4 GM INHALER ONE (19:49)
[2020-10-07] MEDS ORDERED: methylPREDNISolone 40 MG/ML (Solu-MEDROL) VIAL IV ONE (20:00)
[2020-10-07 20:10] LABS: ABG BASE EXCESS 6.3 MMOL/L (-2.5-2.5); ABG OXYGEN SATURATION 97 % (94-100); ABG PCO2 63 MMHG (35-45); ABG PO2 83 MMHG (79-93); ABG TCO2 34.4 MMOL/L (21.0-31.0)
--- NOTE | 2020-10-07 20:10 | ED General ---
General Stated Complaint: SOB Source of Information: Patient, EMS Exam Limitations: No Limitations History of Present Illness Date Seen by Provider: Oct 07, 2020 Time Seen by Provider: 20:08 Initial Comments To ER with shortness of breath. This began about a week ago. No fevers but she has had a cough. She has known COPD and continues to smoke. Timing/Duration: 1 Week Severity: Moderate Associated Systoms: Denies Symptoms Allergies and Home Medications Allergies Coded Allergies: ofloxacin (Verified Allergy, Mild, 02/04/19) Penicillins (Verified Allergy, Unknown, Pt has received Ceftriaxone & Cefepime in the past w/o issue, 02/04/19) amoxicillin (Verified Allergy, Unknown, 02/04/19) clavulanic acid (Verified Allergy, Unknown, 02/04/19) promethazine (Verified Allergy, Unknown, 02/04/19) propoxyphene (Verified Allergy, Unknown, 02/04/19) ketorolac (Verified Adverse Reaction, Unknown, 11/08/17) tramadol (Verified Adverse Reaction, Unknown, 11/08/17) Home Medications Albuterol Sulfate 1 Puff Puff, 2 PUFF IH Q4H PRN for SHORTNESS OF BREATH Prescribed by: ELVIS NERI on 09/19/19 110 Budesonide/Formoterol Fumarate 10.2 Gm Hfa.aer.ad, 2 PUFF IH BID Prescribed by: ELVIS NERI on 09/19/19 110 Cetirizine HCl 10 Mg Tablet, 10 MG PO DAILY, (Reported) Cyclobenzaprine HCl 10 Mg Tablet, 10 MG PO HS, (Reported) Cyclobenzaprine HCl 10 Mg Tablet, 5 MG PO DAILY PRN for MUSCLE SPASMS, (Reported) Dicyclomine HCl 10 Mg Capsule, 20 MG PO TID PRN for CRAMPS, (Reported) TAKES 2 (10MG) CAPSULES Fluticasone Propionate 16 Gm [place].susp, 2 SPRAYS NS DAILY Prescribed by: ELVIS NERI on 09/19/19 110 Gabapentin 800 Mg Tablet, 800 MG PO QID, (Reported) FILLED #56 08-24-19 Hydrocodone Bit/Acetaminophen 1 Each Tablet, 1 TAB PO Q6H PRN for PAIN-MODERATE (5-7) Prescribed by: ELVIS NERI on 09/19/19 1103 Ipratropium/Albuterol Sulfate 3 Ml Ampul.neb, 3 ML INH RTQ4HR Prescribed by: ELVIS NERI on 09/19/19 1103 Lidocaine 1 Each Adh..patch, TOP DAILY, (Reported) LAST FILLED #30 12-3-19 Lipase/Protease/Amylase 1 Each Capsule.dr, 1 CAP PO TIDAC, (Reported) Multivit-Min/FA/Lycopene/Lut 1 Each Tablet, 1 TAB PO DAILY, (Reported) Prednisone 10 Mg Tab.ds.pk, 10 MG PO DAILY Take 6 tabs(60mg)daily,decrease by 1 tab(10MG)daily. Prescribed by: ELVIS NERI on 09/19/19 110 Sulfamethoxazole/Trimethoprim 1 Each Tablet, 1 EACH PO BID Prescribed by: ELVIS NERI on 09/19/19 1109 Patient Home Medication List Home Medication List Reviewed: Yes Review of Systems Review of Systems Constitutional: see HPI EENTM: see HPI Respiratory: see HPI, cough Cardiovascular: no symptoms reported Genitourinary: no symptoms reported Musculoskeletal: no symptoms reported Skin: no symptoms reported Psychiatric/Neurological: No Symptoms Reported Past Wjqvvar-Zkdjwb-Wcyjdb Hx Patient Social History Alcohol Beverage of Choice: Beer Drug of Choice: Smokes THC at times for pain Type Used: Cigarettes 2nd Hand Smoke Exposure: No Recent Hopitalizations: No Immunizations Up To Date Tetanus Booster (TDap): Unknown PED Vaccines UTD: No Date of Pneumonia Vaccine: Jul 26, 2009 Date of Influenza Vaccine: Aug 26, 2019 Seasonal Allergies Seasonal Allergies: No Past Medical History Surgeries: Yes (left leg amputation) Abdominal, Orthopedic Respiratory: Yes (ASPIRATION AND ARDS, wears O2 at home at 2 LPM) Asthma, Pneumonia, Chronic Bronchitis, COPD, Emphysema Currently Using CPAP: No Currently Using BIPAP: No Cardiac: Yes Hypertension Neurological: Yes (CHRONIC PHANTOM LEG PAIN, TREMORS) Headaches /Migraines, Stroke 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 Disorders: Yes 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 Sexually Transmitted Disease: No HIV/AIDS: No Genitourinary: Yes (CHRONIC RENAL INSUFFICIENCY) UTI-Chronic Gastrointestinal: Yes (right colon resection) Chronic Constipation Musculoskeletal: Yes Amputee, Osteoporosis, Fractures Endocrine: Yes (history of chronic pancreatitis) HEENT: Yes (EDENTULOUS; BILATERAL CATARACT SURGERY) Cataract Loss of Vision: Denies Hearing Impairment: Denies Cancer: No Psychosocial: Yes Anxiety, Suicide Attempts, Depression Integumentary: No Blood Disorders: No Adverse Reaction/Blood Tranf: No Family Medical History Alzheimer's disease 19 FATHER 19 MOTHER Asthma 19 FATHER Completed stroke 19 FATHER Deafness or hearing loss 19 FATHER Dementia 19 FATHER Diabetes mellitus 19 FATHER 19 MOTHER Headache disorder 19 FATHER Hypertension 19 FATHER 19 MOTHER Myocardial infarction 19 FATHER 19 MOTHER Respiratory disorder 19 FATHER No Family History of: Kidney disease No Pertinent Family Hx Physical Exam Vital Signs Vital Signs - First Documented 10/07/20 19:48 Temp 35.6 Pulse 97 Resp 20 B/P (MAP) 137/95 (109) Pulse Ox 100 O2 Delivery Nasal Cannula O2 Flow Rate 3.00 Capillary Refill : Height, Weight, BMI Height: 5'1.00" Weight: 82lbs. 0.0oz. 37.007339ck; 12.48 BMI Method:Stated General Appearance: WD/WN, Mild Distress (Speaks in phrases. Oxygen saturation 100% on her baseline 5 L.), Thin, Other (emaciated, has lost a tremendous amount of weight since I saw her last.) Eyes: Bilateral Eye Normal Inspection, Bilateral Eye PERRL, Bilateral Eye EOMI Neck: Full Range of Motion, Normal Inspection Respiratory: No Accessory Muscle Use, No Respiratory Distress, Decreased Breath Sounds (Expiratory wheezing, diminished lung sounds throughout, better lung sounds on the right very diminished lung sounds on the left.) Gastrointestinal: Non Tender, Soft Extremity: Normal Capillary Refill, Normal Inspection Neurologic/Psychiatric: Alert, Oriented x3 Skin: Normal Color, Warm/Dry Procedures/Interventions Date of ETT Placement: Sep 09, 2019 Time of ETT Placement: 2144 Progress/Results/Core Measures Suspected Sepsis SIRS Temperature: Pulse: Respiratory Rate: Laboratory Tests 10/07/20 20:15: White Blood Count 6.4 Blood Pressure / Mean: Laboratory Tests 10/07/20 20:15: Platelet Count 144 Results/Orders Lab Results Laboratory Tests Test 10/07/20 20:00 10/07/20 20:15 Range/Units Blood Gas Puncture Site [facility] RAD Blood Gas Patient Temperature 36.8 Arterial Blood pH 7.32 *L 7.37-7.43 Arterial Blood Partial Pressure CO2 63 H 35-45 MMHG Arterial Blood Partial Pressure O2 83 79-93 MMHG Arterial Blood HCO3 32 H 23-27 MMOL/L Arterial Blood Total CO2 34.4 H 21.0-31.0 MMOL/L Arterial Blood Oxygen Saturation 97 94-100 % Arterial Blood Base Excess 6.3 H -2.5-2.5 MMOL/L Marino Test POS Blood Gas Ventilator Setting NO Blood Gas Inspired Oxygen 5L White Blood Count 6.4 4.3-11.0 10^3/uL Red Blood Count 5.71 H 3.80-5.11 10^6/uL Hemoglobin 15.3 11.5-16.0 g/dL Hematocrit 52 35-52 % Mean Corpuscular Volume 92 80-99 fL Mean Corpuscular Hemoglobin 27 25-34 pg Mean Corpuscular Hemoglobin Concent 29 L 32-36 g/dL Red Cell Distribution Width 22.4 H 10.0-14.5 % Platelet Count 144 130-400 10^3/uL Mean Platelet Volume 10.7 9.0-12.2 fL Immature Granulocyte % (Auto) 0 % Neutrophils (%) (Auto) 68 42-75 % Lymphocytes (%) (Auto) 14 12-44 % Monocytes (%) (Auto) 14 H 0-12 % Eosinophils (%) (Auto) 3 0-10 % Basophils (%) (Auto) 1 0-10 % Neutrophils # (Auto) 4.4 1.8-7.8 10^3/uL Lymphocytes # (Auto) 0.9 L 1.0-4.0 10^3/uL Monocytes # (Auto) 0.9 0.0-1.0 10^3/uL Eosinophils # (Auto) 0.2 0.0-0.3 10^3/uL Basophils # (Auto) 0.0 0.0-0.1 10^3/uL Immature Granulocyte # (Auto) 0.0 0.0-0.1 10^3/uL D-Dimer 0.94 H 0.00-0.49 UG/ML C-Reactive Protein High Sensitivity 1.51 H 0.00-0.50 MG/DL Coronavirus 2019 (MAYRA) Negative Negative My Orders Orders - JUAN C FRANCISCO DIRECTOR OF COLLECTIONS Chest 1 View, Ap/Pa Only (10/07/20 ) Cbc With Automated Diff (10/07/20 20:00) Procalcitonin (Pct) (10/07/20 20:00) Hs C Reactive Protein (10/07/20 20:00) Fibrin Degradation Products (10/07/20 20:00) Ed Iv/Invasive Line Start (10/07/20 20:00) Covid 19 Inhouse Test (10/07/20 20:00) Methylprednisolone Sod Succ (Solu-Medrol (10/07/20 20:00) Albuterol/Ipratropium Inhaler (Combivent (10/07/20 21:00) Rt Request For Service (10/07/20 20:00) Arterial Blood Gas (10/07/20 20:00) Ns Iv 500 Ml (Sodium Chloride 0.9%) (10/07/20 20:15) Basic Metabolic Panel (10/07/20 21:01) Medications Given in ED Current Medications Medications Dose Ordered Sig/Ely Route Start Time Stop Time Status Last Admin Dose Admin Albuterol/ Ipratropium 4 gm STK-MED ONCE .ROUTE 10/07/20 19:49 10/07/20 19:54 DC 10/07/20 20:10 4 GM Methylprednisolone Sodium Succinate 80 mg ONCE ONCE IV 10/07/20 20:00 10/07/20 20:03 DC 10/07/20 20:30 80 MG Vital Signs/I&O 10/07/20 10/07/20 19:48 20:02 Temp 35.6 Pulse 97 Resp 20 B/P (MAP) 137/95 (109) Pulse Ox 100 96 O2 Delivery Nasal Cannula Nasal Cannula O2 Flow Rate 3.00 2.00 Capillary Refill : Diagnostic Imaging Diagonstic Imaging: Xray Plain Films/CT/US/NM/MRI: chest Comments NAME: SOPHIE CORNELIUS MED REC#: [id number] PT STATUS: REG ER : 1970 PHYSICIAN: JUAN C FRANCISCO DIRECTOR OF COLLECTIONS ADMIT DATE: 10/07/20/ER Draft Date of Exam:10/07/20 CHEST 1 VIEW, AP/PA ONLY Clinical indication: Patient with shortness of air. Exam: Portable chest x-ray upright view. Comparisons: Chest x-ray dated 10/30/2019. Findings: COPD lung changes are again seen with flattening of the hemidiaphragm and hyperinflated lungs. There is increased lung markings throughout both lungs again noted. There is no definite interval lung infiltrate seen. There is no pleural effusion or pneumothorax. Pulmonary vasculature and cardiac silhouette are within normal limits. Impression: There is no significant change to the chest x-ray exam with emphysematous lung disease again seen but no interval lung infiltrate or pleural effusion. There is no pneumothorax. Dictated on workstation # [id number] Dict: 10/07/202005 Trans: 10/07/202013 [id number] Interpreted by: BEE MAR MD Electronically signed by: Departure Communication (Admissions) Time/Spoke to Admitting Phy: 21:[address] Neri, will admit on BiPAP, ICU. Impression Primary Impression: COPD exacerbation Disposition: ADMITTED INPATIENT Condition: Stable Admissions Decision to Admit Reason: Admit from ER (General) Decision to Admit/Date: Oct 07, 2020 Time/Decision to Admit Time: 21:28 Departure-Patient Inst. Referrals: [facility] (PCP/Family) Primary Care Physician JUAN C FRANCISCO APRN Oct 07, 2020 20:10
[2020-10-07] MEDS ORDERED: NS IV 500 ML 500 ML IV SCH (20:15)
--- NOTE | 2020-10-07 20:15 | Diagnostic Imaging Report ---
Clinical indication: Patient with shortness of air. Exam: Portable chest x-ray upright view. Comparisons: Chest x-ray dated 10/30/2019. Findings: COPD lung changes are again seen with flattening of the hemidiaphragm and hyperinflated lungs. There is increased lung markings throughout both lungs again noted. There is no definite interval lung infiltrate seen. There is no pleural effusion or pneumothorax. Pulmonary vasculature and cardiac silhouette are within normal limits. Impression: There is no significant change to the chest x-ray exam with emphysematous lung disease again seen but no interval lung infiltrate or pleural effusion. There is no pneumothorax. Dictated by: Dictated on workstation # [id number]
[2020-10-07 20:16] LABS: ABG PH 7.32 (7.37-7.43); ALLENS TEST POS; INSPIRED O2 5L; PATIENT TEMP 36.8; VENTILATOR NO
[2020-10-07 20:31] LABS: BASOPHILS % (AUTO) 1 % (0-10); EOSINOPHILS # (AUTO) 0.2 10^3/uL (0.0-0.3); EOSINOPHILS % (AUTO) 3 % (0-10); HEMATOCRIT 52 % (35-52); HEMOGLOBIN 15.3 g/dL (11.5-16.0); LYMPHOCYTES # (AUTO) 0.9 10^3/uL (1.0-4.0); LYMPHOCYTES % (AUTO) 14 % (12-44); MEAN CORPUSCULAR HEMOGLOBIN 27 pg (25-34); MEAN CORPUSCULAR HGB CONC 29 g/dL (32-36); MEAN CORPUSCULAR VOLUME 92 fL (80-99); MEAN PLATELET VOLUME 10.7 fL (9.0-12.2); MONOCYTES # (AUTO) 0.9 10^3/uL (0.0-1.0); MONOCYTES % (AUTO) 14 % (0-12); NEUTROPHILS # (AUTO) 4.4 10^3/uL (1.8-7.8); NEUTROPHILS % (AUTO) 68 % (42-75); PLATELET COUNT 144 10^3/uL (130-400); WHITE BLOOD COUNT 6.4 10^3/uL (4.3-11.0)
[2020-10-07] MEDS ORDERED: ALBUTEROL/IPRATROP (COMBIVENT RESPIMAT) 4 GM INHALER IH ONE (21:00)
[2020-10-07 21:46] LABS: CALCIUM 9.9 MG/DL (8.5-10.1); CREATININE SERUM 1.54 MG/DL (0.60-1.30); POTASSIUM 4.4 MMOL/L (3.6-5.0)
[2020-10-07] MEDS ORDERED: cefTRIAXone FOR IV USE 1,000 MG in WATER (STERILE) FOR INJECTION 10 ML IV ONE (22:00)
[2020-10-07 22:30] VITALS: BP 145/84
[2020-10-07] MEDS ORDERED: LACTATED RINGERS 1,000 ML IV ONE (22:35)
[2020-10-07] MEDS ORDERED: ONDANSETRON 4 MG/2 ML (SDV) Z0FRAN IVP PRN (22:45)
[2020-10-07] MEDS ORDERED: AZITHROMYCIN 250 MG TAB (ZITHROMAX) PO ONE (22:45)
[2020-10-07 22:53] VITALS: BP 145/84
[2020-10-07 23:00] VITALS: BP 133/96
[2020-10-07] MEDS ORDERED: LACTATED RINGERS 1,000 ML IV SCH (23:00)
[2020-10-07 23:10] VITALS: BP 145/84
[2020-10-07] MEDS ORDERED: RT-ALBUTEROL/IPRATROPIUM 3 ML (DUONEB) VIAL INH PRN (23:45)
[2020-10-08] VITALS (9 sets, daily range): BP systolic 128–150; BP diastolic 91–117
[2020-10-08] MEDS ORDERED: morphine ER 30 MG (MS CONTIN) TAB PO ONE (00:01)
[2020-10-08] MEDS ORDERED: NICOTINE 21 MG (NICODERM) PATCH ONE (00:01)
[2020-10-08 00:07] LABS: BILIRUBIN,URINE NEGATIVE (NEGATIVE); CLARITY,URINE CLEAR; COLOR,URINE YELLOW; GLUCOSE, URINE (UA) NEGATIVE (NEGATIVE); KETONES,URINE NEGATIVE (NEGATIVE); LEUKOCYTE ESTERASE ,URINE NEGATIVE (NEGATIVE); NITRITE,URINE NEGATIVE (NEGATIVE); PROTEIN,URINE 2+ (NEGATIVE)
[2020-10-08] MEDS ORDERED: BUDE10.27 (00:42)
[2020-10-08] MEDS ORDERED: ONDA8TAB15 PO (00:42)
[2020-10-08 00:43] LABS: BACTERIA,URINE TRACE /HPF; RBC,URINE RARE /HPF; WBC,URINE 0-2 /HPF
[2020-10-08 00:44] LABS: AMORPHOUS SEDIMENT,UR FEW AMOR URATES /LPF
[2020-10-08 03:34] LABS: BASOPHILS % (AUTO) 0 % (0-10); EOSINOPHILS % (AUTO) 0 % (0-10); HEMATOCRIT 52 % (35-52); HEMOGLOBIN 14.6 g/dL (11.5-16.0); LYMPHOCYTES # (AUTO) 0.4 10^3/uL (1.0-4.0); LYMPHOCYTES % (AUTO) 10 % (12-44); MEAN CORPUSCULAR HEMOGLOBIN 26 pg (25-34); MEAN CORPUSCULAR HGB CONC 28 g/dL (32-36); MEAN CORPUSCULAR VOLUME 93 fL (80-99); MONOCYTES # (AUTO) 0.1 10^3/uL (0.0-1.0); MONOCYTES % (AUTO) 2 % (0-12); NEUTROPHILS # (AUTO) 3.8 10^3/uL (1.8-7.8); NEUTROPHILS % (AUTO) 88 % (42-75); PLATELET COUNT 129 10^3/uL (130-400); WHITE BLOOD COUNT 4.3 10^3/uL (4.3-11.0)
[2020-10-08 03:35] LABS: ABG BASE EXCESS 1.6 MMOL/L (-2.5-2.5); ABG OXYGEN SATURATION 91 % (94-100); ABG PCO2 62 MMHG (35-45); ABG PO2 65 MMHG (79-93); ABG TCO2 29.7 MMOL/L (21.0-31.0)
[2020-10-08 03:52] LABS: ABG PH 7.27 (7.37-7.43); INSPIRED O2 40%; VENTILATOR NO
[2020-10-08 03:53] LABS: ALLENS TEST POS; PATIENT TEMP 37
[2020-10-08 04:02] LABS: POTASSIUM 4.9 MMOL/L (3.6-5.0)
[2020-10-08 04:03] LABS: CALCIUM 9.2 MG/DL (8.5-10.1)
[2020-10-08 04:07] LABS: PHOSPHORUS 3.2 MG/DL (2.3-4.7)
[2020-10-08 04:08] LABS: CREATININE SERUM 1.29 MG/DL (0.60-1.30)
[2020-10-08 04:10] LABS: MAGNESIUM 1.9 MG/DL (1.6-2.4)
[2020-10-08 04:42] LABS: LYMPHOCYTES % (MANUAL) 13 %; MONOCYTES % (MANUAL) 2 %; NEUTROPHILS % (MANUAL) 85 %; RBC MORPH NORMAL
--- NOTE | 2020-10-08 05:20 | Pulmonary Consultation ---
History of Present Illness History of Present Illness Date Seen by Provider: Oct 08, 2020 Time Seen by Provider: 05:15 Date of Admission Allergies and Home Medications Allergies Coded Allergies: ofloxacin (Verified Allergy, Mild, 02/04/19) Penicillins (Verified Allergy, Unknown, Pt has received Ceftriaxone & Cefepime in the past w/o issue, 02/04/19) amoxicillin (Verified Allergy, Unknown, 02/04/19) clavulanic acid (Verified Allergy, Unknown, 02/04/19) promethazine (Verified Allergy, Unknown, 02/04/19) propoxyphene (Verified Allergy, Unknown, 02/04/19) ketorolac (Verified Adverse Reaction, Unknown, 11/08/17) tramadol (Verified Adverse Reaction, Unknown, 11/08/17) Home Medications Albuterol Sulfate 1 Puff Puff, 2 PUFF IH Q4H PRN for SHORTNESS OF BREATH Prescribed by: ELVIS NERI on 09/19/19 110 Budesonide/Formoterol Fumarate 10.2 Gm Hfa.aer.ad, 2 PUFF IH BID Prescribed by: ELVIS NERI on 09/19/19 110 Cetirizine HCl 10 Mg Tablet, 10 MG PO DAILY, (Reported) Cyclobenzaprine HCl 10 Mg Tablet, 10 MG PO HS, (Reported) Cyclobenzaprine HCl 10 Mg Tablet, 5 MG PO DAILY PRN for MUSCLE SPASMS, (Reported) Dicyclomine HCl 10 Mg Capsule, 20 MG PO TID PRN for CRAMPS, (Reported) TAKES 2 (10MG) CAPSULES Fluticasone Propionate 16 Gm [place].susp, 2 SPRAYS NS DAILY Prescribed by: ELVIS NERI on 09/19/19 110 Gabapentin 800 Mg Tablet, 800 MG PO QID, (Reported) FILLED #56 08-24-19 Hydrocodone Bit/Acetaminophen 1 Each Tablet, 1 TAB PO Q6H PRN for PAIN-MODERATE (5-7) Prescribed by: ELVIS NERI on 09/19/19 110 Ipratropium/Albuterol Sulfate 3 Ml Ampul.neb, 3 ML INH RTQ4HR Prescribed by: ELVIS NERI on 09/19/19 110 Lidocaine 1 Each Adh..patch, TOP DAILY, (Reported) LAST FILLED #30 12-3-19 Lipase/Protease/Amylase 1 Each Capsule.dr, 1 CAP PO TIDAC, (Reported) Multivit-Min/FA/Lycopene/Lut 1 Each Tablet, 1 TAB PO DAILY, (Reported) Prednisone 10 Mg Tab.ds.pk, 10 MG PO DAILY Take 6 tabs(60mg)daily,decrease by 1 tab(10MG)daily. Prescribed by: ELVIS NERI on 09/19/19 1103 Sulfamethoxazole/Trimethoprim 1 Each Tablet, 1 EACH PO BID Prescribed by: ELVIS NERI on 09/19/19 1109 Past Mdgcman-Xjfeyj-Tbywup Hx Patient Social History Alcohol Use: Denies Use Number of Drinks Today: AA Alcohol Beverage of Choice: Beer Drug of Choice: Smokes THC at times for pain Smoking Status: Current Everyday Smoker Type Used: Cigarettes 2nd Hand Smoke Exposure: No Recent Infectious Disease Expo: No Recent Hopitalizations: No Have you traveled recently?: No Substance type: Nicotine, Marijuana Alcohol Use?: No Immunizations Up To Date Tetanus Booster (TDap): Unknown PED Vaccines UTD: No Date of Pneumonia Vaccine: Jul 26, 2009 Date of Influenza Vaccine: Aug 26, 2019 Seasonal Allergies Seasonal Allergies: No Past Medical History Surgeries: Yes (left leg amputation) Abdominal, Orthopedic Respiratory: Yes (ASPIRATION AND ARDS, wears O2 at home at 2 LPM) Asthma, Pneumonia, Chronic Bronchitis, COPD, Emphysema Currently Using CPAP: No Currently Using BIPAP: No Cardiac: Yes Hypertension Neurological: Yes (CHRONIC PHANTOM LEG PAIN, TREMORS) Headaches /Migraines, Stroke 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 Disorders: Yes 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 Sexually Transmitted Disease: No HIV/AIDS: No Genitourinary: Yes (CHRONIC RENAL INSUFFICIENCY) UTI-Chronic Gastrointestinal: Yes (right colon resection) Chronic Constipation Musculoskeletal: Yes Amputee, Osteoporosis, Fractures Endocrine: Yes (history of chronic pancreatitis) HEENT: Yes (EDENTULOUS; BILATERAL CATARACT SURGERY) Cataract Loss of Vision: Denies Hearing Impairment: Denies Cancer: No Psychosocial: Yes Anxiety, Suicide Attempts, Depression Integumentary: No Blood Disorders: No Adverse Reaction/Blood Tranf: No Family Medical History Alzheimer's disease 19 FATHER 19 MOTHER Asthma 19 FATHER Completed stroke 19 FATHER Deafness or hearing loss 19 FATHER Dementia 19 FATHER Diabetes mellitus 19 FATHER 19 MOTHER Headache disorder 19 FATHER Hypertension 19 FATHER 19 MOTHER Myocardial infarction 19 FATHER 19 MOTHER Respiratory disorder 19 FATHER No Family History of: Kidney disease No Pertinent Family Hx Review of Systems Time Seen by Provider: 05:18 Sepsis Event Evaluation Height, Weight, BMI Height: 5'1.00" Weight: 82lbs. 0.0oz. 37.085040wp; 12.32 BMI Method:Stated Exam Exam Vital Signs Date Time Temp Pulse Resp B/P (MAP) Pulse Ox O2 Delivery O2 Flow Rate FiO2 10/08/20 05:00 63 14 133/94 (107) 94 NIV Bilevel 30.00 10/08/20 04:35 67 14 97 30.00 10/08/20 04:00 57 10 136/101 (113) 95 NIV Bilevel 30.00 10/08/20 03:41 NIV Bilevel 40 10/08/20 03:35 95 NIV Bilevel 40 10/08/20 03:09 NIV Bilevel 30.00 10/08/20 03:00 59 11 147/94 (111) 93 NIV Bilevel 40.00 10/08/20 02:15 61 14 96 40.00 10/08/20 02:00 62 12 149/94 (112) 97 NIV Bilevel 40.00 10/08/20 01:00 61 10 128/91 (103) 95 NIV Bilevel 40.00 10/08/20 00:38 62 10/08/20 00:30 95 NIV Bilevel 40 10/08/20 00:00 61 9 129/93 (105) 95 NIV Bilevel 40.00 10/07/20 23:10 36.0 80 97 40 10/07/20 23:00 72 13 133/96 (108) 95 NIV Bilevel 40.00 10/07/20 22:53 80 15 97 40.00 10/07/20 22:50 84 10/07/20 22:40 NIV Bilevel 40 10/07/20 22:30 36.6 81 14 145/84 (104) 96 NIV Bilevel 40.00 10/07/20 22:30 36.0 76 16 125/103 (109) 96 Nasal Cannula 3.00 10/07/20 20:02 96 Nasal Cannula 2.00 10/07/20 19:48 35.6 97 20 137/95 (109) 100 Nasal Cannula 3.00 I & O 10/08/20 07:00 Intake Total 550 ml Output Total 75 ml Balance 475 ml Height & Weight Height: 5'1.00" Weight: 82lbs. 0.0oz. 37.523121mn; 12.32 BMI Method:Stated General Appearance: WD/WN, Mild Distress (Speaks in phrases. Oxygen saturation 100% on her baseline 5 L.), Thin, Other (emaciated, has lost a tremendous amount of weight since I saw her last.) Neck: Full Range of Motion, Normal Inspection Respiratory: No Accessory Muscle Use, No Respiratory Distress, Decreased Breath Sounds (Expiratory wheezing, diminished lung sounds throughout, better lung sounds on the right very diminished lung sounds on the left.) Capillary Refill: Less Than 3 Seconds Extremity: Normal Capillary Refill, Normal Inspection Neurologic/Psychiatric: Alert, Oriented x3 Skin: Normal Color, Warm/Dry Results Lab Laboratory Tests 10/07/20 20:15 10/08/20 03:05 Assessment/Plan Assessment/Plan COPDAE -BiPAP -Solumedrol -Duoneb -COVID rapid is negative -Influenza - swab pending Tobacco dependance Lethargy ASHLEIGH ORTEGA DO Oct 08, 2020 05:20
[2020-10-08] MEDS ORDERED: POTASSIUM CL 10MEQ/50ML IVPB 50 ML IV SCH (06:00)
[2020-10-08] MEDS ORDERED: methylPREDNISolone 40 MG/ML (Solu-MEDROL) VIAL IV SCH (06:00)
[2020-10-08] MEDS ORDERED: RT-ALBUTEROL/IPRATROPIUM 3 ML (DUONEB) VIAL INH SCH ×2 (06:00→07:00)
[2020-10-08] MEDS ORDERED: KCL 20 MEQ TAB (K-DUR) PO SCH (06:00)
[2020-10-08] MEDS ORDERED: MAGNESIUM 1 GM/100 ML IVPB 100 ML IV SCH (06:00)
[2020-10-08 06:37] LABS: ABG BASE EXCESS 2.7 MMOL/L (-2.5-2.5); ABG OXYGEN SATURATION 94 % (94-100); ABG PCO2 57 MMHG (35-45); ABG PO2 80 MMHG (79-93); ABG TCO2 30.1 MMOL/L (21.0-31.0)
[2020-10-08 06:57] LABS: ABG PH 7.32 (7.37-7.43); ALLENS TEST POS
[2020-10-08 06:58] LABS: INSPIRED O2 30%; PATIENT TEMP 37; VENTILATOR NO
[2020-10-08] MEDS ORDERED: FLU QUADRIvalent (3YOA+) 60 mcg/0.5 ml 2020-21 (AFLURIA) IM ONE (07:15)
[2020-10-08 07:43] LABS: AMPHETAMINE SCREEN, URINE NEGATIVE (NEGATIVE); BARBITURATE SCREEN URINE NEGATIVE (NEGATIVE); BENZODIAZEPINES SCREEN URINE NEGATIVE (NEGATIVE); CANNABINOID SCREEN, URINE POSITIVE (NEGATIVE); COCAINE SCREEN URINE NEGATIVE (NEGATIVE); METHADONE STAT NEGATIVE (NEGATIVE); METHAMPHETAMINE SCREEN URINE S NEGATIVE (NEGATIVE); OPIATE SCREEN URINE POSITIVE (NEGATIVE); OXYCODONE STAT NEGATIVE (NEGATIVE); PROPOXYPHENE STAT NEGATIVE (NEGATIVE); TRICYCLIC ANTIDEPRESSANTS SCRE NEGATIVE (NEGATIVE)
--- NOTE | 2020-10-08 07:57 | Diagnostic Imaging Report ---
Portable erect AP chest at 2:17. Indication: Respiratory distress, COPD. The heart is stable in size when compared to the prior exam of 10/07/2020. The chronic pulmonary changes seen previously are also again visualized and essentially no different. There is still no new abnormality to suggest pneumonia, failure or a significant pleural effusion. The mediastinum is not widened. The osseous structures are intact. Impression: There is chronic pulmonary disease but there is no sign of an acute abnormality. When compared to the prior study there has been no significant change. Dictated by: Dictated on workstation # [id number]
[2020-10-08] MEDS ORDERED: ADVAIR HFA 115/21 MCG INHALER 8 GM IH SCH (08:00)
[2020-10-08] MEDS ORDERED: AZITHROMYCIN 250 MG TAB (ZITHROMAX) PO SCH (09:00)
[2020-10-08] MEDS ORDERED: morphine ER 30 MG (MS CONTIN) TAB PO SCH (09:00)
[2020-10-08] MEDS ORDERED: NICOTINE PATCH REMOVAL TP SCH (09:00)
[2020-10-08] MEDS ORDERED: GABAPENTIN 400 MG (NEURONTIN) CAP PO SCH (09:00)
[2020-10-08] MEDS ORDERED: NICOTINE 21 MG (NICODERM) PATCH TD SCH (09:00)
--- NOTE | 2020-10-08 10:45 | Short Stay Summary-Hospitalist ---
History of Present Illness HPI/Chief Complaint Patient not seen prior to leaving AMA Source: RN/MD Exam Limitations: other (did not see prior to AMA) Date Seen 10/08/20 Time Seen by a Provider: 00:00 Attending Physician Ashleigh Palacios DO [facility] Referring Physician Date of Admission Oct 07, 2020 at 21:23 Home Medications & Allergies Home Medications Reviewed patient Home Medication Reconciliation performed by pharmacy medication reconciliations waste transportation technician and/or nursing. Patients Allergies have been reviewed. Allergies Allergies Coded Allergies ofloxacin (Verified Allergy, Mild, 02/04/19) Penicillins (Verified Allergy, Unknown, Pt has received Ceftriaxone & Cefepime in the past w/o issue, 02/04/19) amoxicillin (Verified Allergy, Unknown, 02/04/19) clavulanic acid (Verified Allergy, Unknown, 02/04/19) promethazine (Verified Allergy, Unknown, 02/04/19) propoxyphene (Verified Allergy, Unknown, 02/04/19) ketorolac (Verified Adverse Reaction, Unknown, 11/08/17) tramadol (Verified Adverse Reaction, Unknown, 11/08/17) Past Aclsaan-Uesduv-Pdokqz Hx Past Med/Social Hx: Reviewed Nursing Past Med/Soc Hx, Reviewed and Corrections made Patient Social History Alcohol Use: Denies Use Alcohol Beverage of Choice: Beer Recreational Drug Use: Yes (ETOH- NOT FOR LAST SIX MONTHS) Drug of Choice: Smokes THC at times for pain Smoking Status: Current Everyday Smoker Type Used: Cigarettes 2nd Hand Smoke Exposure: No Recent Foreign Travel: No Contact w/other who traveled: No Recent Hopitalizations: No Recent Infectious Disease Expo: No Immunizations Up To Date Tetanus Booster (TDap): Unknown Pediatric: No Date of Pneumonia Vaccine: Jul 26, 2009 Date of Influenza Vaccine: Aug 26, 2019 Seasonal Allergies Seasonal Allergies: No Past Medical History Surgeries: Abdominal, Orthopedic Respiratory: COPD, Emphysema, Pneumonia Currently Using CPAP: No Currently Using BIPAP: No Cardiac: Hypertension Neurological: Headaches /Migraines, Stroke 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: Yes Sexually Transmitted Disease: No HIV/AIDS: No 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 Hysterectomy Genitourinary: UTI-Chronic Gastrointestinal: Chronic Constipation Musculoskeletal: Amputee, Osteoporosis, Fractures HEENT: Cataract Loss of Vision: Denies Hearing Impairment: Denies Psychosocial: Anxiety, Suicide Attempts, Depression History of Blood Disorders: No Adverse Reaction to Blood [place]: No Family History Alzheimer's disease 19 FATHER 19 MOTHER Asthma 19 FATHER Completed stroke 19 FATHER Deafness or hearing loss 19 FATHER Dementia 19 FATHER Diabetes mellitus 19 FATHER 19 MOTHER Headache disorder 19 FATHER Hypertension 19 FATHER 19 MOTHER Myocardial infarction 19 FATHER 19 MOTHER Respiratory disorder 19 FATHER No Family History of: Kidney disease No Pertinent Family Hx Review of Systems Constitutional: see HPI (Patient not seen prior to leaving AMA) Physical Exam Physical Exam Vital Signs Vital Signs - First Documented 10/07/20 10/07/20 19:48 22:40 Temp 35.6 Pulse 97 Resp 20 B/P (MAP) 137/95 (109) Pulse Ox 100 O2 Delivery Nasal Cannula O2 Flow Rate 3.00 FiO2 40 Capillary Refill : Less Than 3 Seconds Height, Weight, BMI Height: 5'1.00" Weight: 82lbs. 0.0oz. 37.814796jg; 12.32 BMI Method:Stated General Appearance: WD/WN, Mild Distress (Speaks in phrases. Oxygen saturation 100% on her baseline 5 L.), Thin, Other (emaciated, has lost a tremendous amount of weight since I saw her last.) Eyes: Bilateral Eye Normal Inspection, Bilateral Eye PERRL, Bilateral Eye EOMI Neck: Full Range of Motion, Normal Inspection Respiratory: No Accessory Muscle Use, No Respiratory Distress, Decreased Breath Sounds (Expiratory wheezing, diminished lung sounds throughout, better lung sounds on the right very diminished lung sounds on the left.) Gastrointestinal: Non Tender, Soft Extremity: Normal Capillary Refill, Normal Inspection Neurologic/Psychiatric: Alert, Oriented x3 Skin: Normal Color, Warm/Dry Results Results/Procedures Labs Laboratory Tests 10/07/20 20:15 10/08/20 03:05 Patient resulted labs reviewed. Short Stay Diagnosis Discharge Diagnosis-Short Stay Admission Diagnosis Patient not seen prior to leaving AMA Final Discharge Diagnosis Patient not seen prior to leaving AMA Conclusion Plan Patient not seen prior to leaving AMA ASHLEIGH PALACIOS DO Oct 08, 2020 10:45
[2020-10-08] MEDS ORDERED: cefTRIAXone 1,000 MG/SWFI 10 ML IV PUSH IV SCH ×2 (22:00)
== END 2020-10-08 09:39 | disposition left against medical advice (07) | DRG 192 ==
LOC: EDUNIT# 19:45 → ER 19:46 → ICU 21:23
PROVIDERS: ADMIT Internal Medicine; ATTEND Internal Medicine
PROC: 5A09357 Assistance with Respiratory Ventilation, Less than 24 Consecutive Hours, Continuous Positive Airway Pressure (ICD-10-PCS; principal; 2020-10-07)
DX: J44.1 Chronic obstructive pulmonary disease with (acute) exacerbation (principal); F17.210 Nicotine dependence, cigarettes, uncomplicated; R53.83 Other fatigue; Z20.822 Contact with and (suspected) exposure to COVID-19; I10 Essential (primary) hypertension; G43.909 Migraine, unspecified, not intractable, without status migrainosus; M81.0 Age-related osteoporosis without current pathological fracture; Z88.0 Allergy status to penicillin; Z88.1 Allergy status to other antibiotic agents
CPT/HCPCS: 36415; 36600; 71045; 80048; 80306; 81000; 82805; 83735; 84100; 84145; 85007; 85025; 85027; 85379; 86141; 87081; 87635; 87804; 94640; 94660; 99291; G0378

== ENCOUNTER 2021-01-11 15:41 | Emergency (ER) | payer MEDICAID ==
[~2021-01-11] VITALS: Ht 152 cm; Wt 49.0 kg
[~2021-01-11 15:41] MED LIST changes: +BUDE10.27; +ONDA8TAB15 PO
[2021-01-11] MEDS ORDERED: RT-ALBUTEROL SULF 2.5 MG/3 ML PRE-MIX VIAL INH STA (15:56)
[2021-01-11] MEDS ORDERED: RT-ALBUTEROL/IPRATROPIUM 3 ML (DUONEB) VIAL INH ONE (16:00)
[2021-01-11] MEDS ORDERED: methylPREDNISolone 125 MG (Solu-MEDROL) VIAL IVP ONE (16:00)
[2021-01-11 16:09] LABS: BASOPHILS # (AUTO) 0.1 10^3/uL (0.0-0.1); BASOPHILS % (AUTO) 1 % (0-10); EOSINOPHILS # (AUTO) 0.2 10^3/uL (0.0-0.3); EOSINOPHILS % (AUTO) 2 % (0-10); HEMATOCRIT 51 % (35-52); HEMOGLOBIN 15.3 g/dL (11.5-16.0); LYMPHOCYTES # (AUTO) 1.5 X 10^3 (1.0-4.0); LYMPHOCYTES % (AUTO) 18 % (12-44); MEAN CORPUSCULAR HEMOGLOBIN 29 pg (25-34); MEAN CORPUSCULAR HGB CONC 30 g/dL (32-36); MEAN CORPUSCULAR VOLUME 96 fL (80-99); MEAN PLATELET VOLUME 10.5 fL (9.0-12.2); MONOCYTES # (AUTO) 1.1 X 10^3 (0.0-1.0); MONOCYTES % (AUTO) 13 % (0-12); NEUTROPHILS # (AUTO) 5.2 X 10^3 (1.8-7.8); NEUTROPHILS % (AUTO) 65 % (42-75); PLATELET COUNT 222 10^3/uL (130-400)
[2021-01-11 16:14] LABS: ALBUMIN 3.7 GM/DL (3.2-4.5); POTASSIUM 4.9 MMOL/L (3.6-5.0)
[2021-01-11 16:15] LABS: CALCIUM 9.3 MG/DL (8.5-10.1)
[2021-01-11 16:17] LABS: TOTAL PROTEIN 6.4 GM/DL (6.4-8.2)
[2021-01-11 16:18] LABS: BILIRUBIN,TOTAL 0.3 MG/DL (0.1-1.0)
[2021-01-11 16:20] LABS: CREATININE SERUM 1.06 MG/DL (0.60-1.30)
--- NOTE | 2021-01-11 16:32 | ED Respiratory ---
General Chief Complaint: Respiratory Problems Stated Complaint: COPD Nursing Triage Note: patient states hx of COPD, SOB at home, states Bx Machine is broken, patient states she might have pneumonia. Source: patient Exam Limitations: no limitations History of Present Illness Date Seen by Provider: January 11, 2021 Time Seen by Provider: 15:44 Initial Comments This 50-year-old woman with COPD presents to the emergency room via EMS with complaints of shortness of breath and pleuritic pain in the right lower chest. She has had worsening shortness of breath over the past couple of days because her nebulizer machine is not working. She therefore has been without nebulizer treatments. She states the pain in her chest is only with inspiration and feels like prior episodes of pneumonia. Patient also appears to have a bulging ventral incisional hernia on the abdomen which she states has been increasing in pain over the past few days. Allergies and Home Medications Allergies Coded Allergies: ofloxacin (Verified Allergy, Mild, 02/04/19) Penicillins (Verified Allergy, Unknown, Pt has received Ceftriaxone & Cefepime in the past w/o issue, 02/04/19) amoxicillin (Verified Allergy, Unknown, 02/04/19) clavulanic acid (Verified Allergy, Unknown, 02/04/19) promethazine (Verified Allergy, Unknown, 02/04/19) propoxyphene (Verified Allergy, Unknown, 02/04/19) ketorolac (Verified Adverse Reaction, Unknown, 11/08/17) tramadol (Verified Adverse Reaction, Unknown, 11/08/17) Home Medications Albuterol Sulfate 1 Puff Puff, 2 PUFF IH Q4H PRN for SHORTNESS OF BREATH Prescribed by: ELVIS NERI on 09/19/19 1109 Budesonide/Formoterol Fumarate 10.2 Gm Hfa.aer.ad, 2 PUFF IH BID Prescribed by: ELVIS NERI on 09/19/19 1109 Cetirizine HCl 10 Mg Tablet, 10 MG PO DAILY, (Reported) Cyclobenzaprine HCl 10 Mg Tablet, 10 MG PO HS, (Reported) Cyclobenzaprine HCl 10 Mg Tablet, 5 MG PO DAILY PRN for MUSCLE SPASMS, (Reported) Dicyclomine HCl 10 Mg Capsule, 20 MG PO TID PRN for CRAMPS, (Reported) TAKES 2 (10MG) CAPSULES Fluticasone Propionate 16 Gm Debord.susp, 2 SPRAYS NS DAILY Prescribed by: ELVIS NERI on 09/19/19 110 Gabapentin 800 Mg Tablet, 800 MG PO QID, (Reported) FILLED #56 08-24- Hydrocodone Bit/Acetaminophen 1 Each Tablet, 1 TAB PO Q6H PRN for PAIN-MODERATE (5-7) Prescribed by: ELVIS NERI on 09/19/19 110 Ipratropium/Albuterol Sulfate 3 Ml Ampul.neb, 3 ML INH RTQ4HR Prescribed by: ELVIS NERI on 09/19/19 110 Lidocaine 1 Each Adh..patch, TOP DAILY, (Reported) LAST FILLED #30 07-28-19 Lipase/Protease/Amylase 1 Each Capsule.dr, 1 CAP PO TIDAC, (Reported) Multivit-Min/FA/Lycopene/Lut 1 Each Tablet, 1 TAB PO DAILY, (Reported) Prednisone 10 Mg Tab.ds.pk, 10 MG PO DAILY Take 6 tabs(60mg)daily,decrease by 1 tab(10MG)daily. Prescribed by: ELVIS NERI on 09/19/19 110 Prednisone 20 Mg Tab, 20 MG PO DAILY Prescribed by: FER ELIZALDE on 01/11/21 1835 Sulfamethoxazole/Trimethoprim 1 Each Tablet, 1 EACH PO BID Prescribed by: ELVIS NERI on 09/19/19 110 Patient Home Medication List Home Medication List Reviewed: Yes Review of Systems Review of Systems Constitutional: no symptoms reported EENTM: no symptoms reported Respiratory: see HPI Cardiovascular: no symptoms reported Gastrointestinal: see HPI Genitourinary: no symptoms reported : No Musculoskeletal: see HPI Skin: no symptoms reported Psychiatric/Neurological: No Symptoms Reported Immunological/Allergic: no symptoms reported Past Zkulssd-Twfnpe-Siqezu Hx Past Med/Social Hx: Reviewed Nursing Past Med/Soc Hx Patient Social History Alcohol Use: Occasionally Uses Number of Drinks Today: AA Alcohol Beverage of Choice: Beer Drug of Choice: Smokes THC at times for pain Type Used: Cigarettes 2nd Hand Smoke Exposure: No Recent Infectious Disease Expo: No Recent Hopitalizations: No Immunizations Up To Date Tetanus Booster (TDap): Unknown PED Vaccines UTD: No Date of Pneumonia Vaccine: Jul 26, 2009 Date of Influenza Vaccine: Aug 26, 2019 Seasonal Allergies Seasonal Allergies: No Past Medical History Surgeries: Yes (left leg amputation) Abdominal, Amputation, Orthopedic Respiratory: Yes (ASPIRATION AND ARDS, wears O2 at home at 2 LPM) Asthma, Pneumonia, Chronic Bronchitis, COPD, Emphysema Currently Using CPAP: No Currently Using BIPAP: No Cardiac: Yes Hypertension Neurological: Yes (CHRONIC PHANTOM LEG PAIN, TREMORS) Headaches /Migraines, Stroke 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 Disorders: Yes 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 Sexually Transmitted Disease: No HIV/AIDS: No Genitourinary: Yes (CHRONIC RENAL INSUFFICIENCY) UTI-Chronic Gastrointestinal: Yes (right colon resection) Chronic Constipation Musculoskeletal: Yes Amputee, Osteoporosis, Fractures Endocrine: Yes (history of chronic pancreatitis) HEENT: Yes (EDENTULOUS; BILATERAL CATARACT SURGERY) Cataract Loss of Vision: Denies Hearing Impairment: Denies Cancer: No Psychosocial: Yes Anxiety, Suicide Attempts, Depression Integumentary: No Blood Disorders: No Adverse Reaction/Blood Tranf: No Family Medical History Alzheimer's disease 19 FATHER 19 MOTHER Asthma 19 FATHER Completed stroke 19 FATHER Deafness or hearing loss 19 FATHER Dementia 19 FATHER Diabetes mellitus 19 FATHER 19 MOTHER Headache disorder 19 FATHER Hypertension 19 FATHER 19 MOTHER Myocardial infarction 19 FATHER 19 MOTHER Respiratory disorder 19 FATHER No Family History of: Kidney disease No Pertinent Family Hx Physical Exam Vital Signs - First Documented 01/11/21 15:55 Temp 36.8 Pulse 70 Resp 26 B/P (MAP) 128/96 (107) Pulse Ox 92 O2 Delivery Nasal Cannula O2 Flow Rate 2.00 Capillary Refill : Less Than 3 Seconds Height: 5'1.00" Weight: 82lbs. 0.0oz. 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 as tested, no motor/sensory deficits, alert, normal mood/affect, oriented x 3 Skin: normal color, warm/dry Procedures/Interventions Date of ETT Placement: Sep 09, 2019 Time of ETT Placement: 2145 Progress/Results/Core Measures Suspected Sepsis Recent Fever Within 48 Hours: No Infection Criteria Present: None New/Unexplained Altered Menta: No Sepsis Screen: No Definite Risk SIRS Temperature: Pulse: 70 Respiratory Rate: 26 Laboratory Tests 01/11/21 15:47: White Blood Count 8.0 Blood Pressure 128 /96 Mean: 107 Laboratory Tests 01/11/21 15:47: Creatinine 1.06, Platelet Count 222, Total Bilirubin 0.3 Results/Orders Lab Results Laboratory Tests Test 01/11/21 15:47 Range/Units White Blood Count 8.0 4.3-11.0 10^3/uL Red Blood Count 5.30 H 3.80-5.11 10^6/uL Hemoglobin 15.3 11.5-16.0 g/dL Hematocrit 51 35-52 % Mean Corpuscular Volume 96 80-99 fL Mean Corpuscular Hemoglobin 29 25-34 pg Mean Corpuscular Hemoglobin Concent 30 L 32-36 g/dL Red Cell Distribution Width 17.0 H 10.0-14.5 % Platelet Count 222 130-400 10^3/uL Mean Platelet Volume 10.5 9.0-12.2 fL Immature Granulocyte % (Auto) 0 % Neutrophils (%) (Auto) 65 42-75 % Lymphocytes (%) (Auto) 18 12-44 % Monocytes (%) (Auto) 13 H 0-12 % Eosinophils (%) (Auto) 2 0-10 % Basophils (%) (Auto) 1 0-10 % Neutrophils # (Auto) 5.2 1.8-7.8 X 10^3 Lymphocytes # (Auto) 1.5 1.0-4.0 X 10^3 Monocytes # (Auto) 1.1 H 0.0-1.0 X 10^3 Eosinophils # (Auto) 0.2 0.0-0.3 10^3/uL Basophils # (Auto) 0.1 0.0-0.1 10^3/uL Immature Granulocyte # (Auto) 0.0 0.0-0.1 10^3/uL D-Dimer 1.21 H 0.00-0.49 UG/ML Sodium Level 142 135-145 MMOL/L Potassium Level 4.9 3.6-5.0 MMOL/L Chloride Level 103 98-107 MMOL/L Carbon Dioxide Level 31 21-32 MMOL/L Anion Gap 8 5-14 MMOL/L Blood Urea Nitrogen 13 7-18 MG/DL Creatinine 1.06 0.60-1.30 MG/DL Estimat Glomerular Filtration Rate 54 BUN/Creatinine Ratio 12 Glucose Level 105 70-105 MG/DL Calcium Level 9.3 8.5-10.1 MG/DL Corrected Calcium 9.5 8.5-10.1 MG/DL Total Bilirubin 0.3 0.1-1.0 MG/DL Aspartate Amino Transf (AST/SGOT) 10 5-34 U/L Alanine Aminotransferase (ALT/SGPT) 8 0-55 U/L Alkaline Phosphatase 64 40-136 U/L C-Reactive Protein High Sensitivity 0.23 0.00-0.50 MG/DL Total Protein 6.4 6.4-8.2 GM/DL Albumin 3.7 3.2-4.5 GM/DL SARS-CoV-2 RNA (RT-PCR) Not Detected Not Detecte Micro Results Microbiology 01/11/21 Influenza Types A,B Antigen (CHELSY) - Final, Complete My Orders Orders - FER MONTEIRO MD Ed Iv/Invasive Line Start (01/11/21 15:56) Albuterol Pre-Mix Nebs (Rt) (Proventil (01/11/21 15:56) Albuterol/Ipra Inhalation Soln (Duoneb I (01/11/21 16:00) Svn Small Volume Nebulizer (01/11/21 15:56) Svn Small Volume Nebulizer (01/11/21 15:56) Cbc With Automated Diff (01/11/21 15:56) Comprehensive Metabolic Panel (01/11/21 15:56) Hs C Reactive Protein (01/11/21 15:56) Fibrin Degradation Products (01/11/21 15:56) Influenza A And B Antigens (01/11/21 15:59) Covid 19 Inhouse Test (01/11/21 15:59) Methylprednisolone Sod Succ (Solu-Medrol (01/11/21 16:00) Ct Amee Chest/Noang Abd-Pelv W (01/11/21 16:24) Iohexol Injection (Omnipaque 350 Mg/Ml 1 (01/11/21 17:00) Received Contrast (Hold Metformin- Contr (01/11/21 17:00) Sodium Chloride Flush (Catheter Flush Sy (01/11/21 17:00) Medications Given in ED Current Medications Medications Dose Ordered Sig/Ely Route Start Time Stop Time Status Last Admin Dose Admin Albuterol/ Ipratropium 3 ml ONCE ONCE INH 01/11/21 16:00 01/11/21 16:01 DC 01/11/21 16:19 3 ML Iohexol 100 ml ONCE ONCE IV 01/11/21 17:00 01/11/21 17:05 DC 01/11/21 17:33 100 ML Methylprednisolone Sodium Succinate 62.5 mg ONCE ONCE IVP 01/11/21 16:00 01/11/21 16:01 DC 01/11/21 16:30 62.5 MG Vital Signs/I&O 01/11/21 01/11/21 01/11/21 15:55 16:20 18:43 Temp 36.8 36.8 Pulse 70 90 Resp 26 20 B/P (MAP) 128/96 (107) 128/90 Pulse Ox 92 89 95 O2 Delivery Nasal Cannula Nasal Cannula Nasal Cannula O2 Flow Rate 2.00 2.00 2.00 Capillary Refill : Less Than 3 Seconds Blood Pressure Mean: 107 Progress Note : Progress Note Nebulizer treatment was administered by EMS. An hour-long nebulizer treatment was ordered to follow. Solu-Medrol was also administered. There is no evidence for pneumonia or other infection on work-up. D-dimer was elevated prompting a CTA of the chest that also included abdomen and pelvis for evaluation of her abdominal hernia. No PE or pneumonia was identified. Repaired hernia was stable. Patient had significant improvement with the nebulizer. A nebulizer machine was dispensed from the ER. Diagnostic Imaging Diagonstic Imaging: CT Plain Films/CT/US/NM/MRI: chest, abdomen, pelvis Comments CT viewed by me and report reviewed. See report below: NAME: SOPHIE CORNELIUS MED REC#: [id number] PT STATUS: REG ER : 1970 PHYSICIAN: FER MONTEIRO MD ADMIT DATE: 01/11/21/ER Draft Date of Exam:01/11/21 CT AMEE CHEST/NOANG ABD-PELV W INDICATION: Chest pain, elevated d-dimer, hernia pain TECHNIQUE: CTA chest, abdomen and pelvis. Thin axial sections through the chest, abdomen and pelvis are obtained following intravenous contrast bolus. Multiplanar MIP images were reconstructed and reviewed. All CT scans use one or more of the following dose optimizing techniques: automated exposure control, MA and/or KvP adjustment based on patient size and exam type or iterative reconstruction. CORRELATION STUDY: CT chest, abdomen and pelvis 10/30/2019. FINDINGS: CTA CHEST: Heart size is normal with scattered mild coronary artery calcification. Prominence of the ascending aorta at 4.2 cm. No evidence for dissection. Normal branching pattern of the aortic arch. Prominent central pulmonary arteries. There is no filling defect to suggest pulmonary embolism. No pathologically enlarged mediastinal lymph node. There are some excretions particularly in the dependent right, and to a lesser degree peripheral left, bronchi. Lung read demonstrate no consolidating infiltrate. No effusion. CT ABDOMEN and PELVIS: The abdominal aorta with mild atherosclerotic change. Main arteries branches are patent at their origins. No aneurysm or dissection. Heterogeneous appearance about the liver without focal lesion. Gallbladder absent. Spleen, pancreas and adrenal glands demonstrate no definite evidence for an acute abnormality. Multifocal areas of scarring in the left kidney. No obstruction. Gastrointestinal tract demonstrates mild diffuse distention. No definitive obstruction. Postoperative changes of right inguinal hernia repair. There is apparent anastomotic suture line in the colon deep to this. There is asymmetric distention with what appears to be stool loading. Definitive abscess is not demonstrated. Urinary bladder decompressed. Post hysterectomy. Osseous structures demonstrate no acute abnormality. IMPRESSION: CTA CHEST: 1. No CT evidence for acute abnormality of the chest. No evidence for pulmonary embolism. 2. Prominent appearance about the pulmonary arteries suggesting pulmonary arterial hypertension. CT ABDOMEN and PELVIS: 1. Postoperative changes of right hernia repair. No definitive recurrent hernia. It is noted that there is potentially adherent loops of bowel to this area with some colonic distention. If symptoms do persist, short-term follow-up repeat imaging to include oral contrast administration would be recommended. Dictated on workstation # [id number] Dict: 01/11/21 1742 Trans: 01/11/21 1809 [facility] [id number] Interpreted by: DORIS MESSER DO Departure Impression Primary Impression: COPD exacerbation Additional Impressions: Pleuritic chest pain Abdominal wall hernia Disposition: HOME, SELF-CARE Condition: Improved Departure-Patient Inst. Decision time for Depature: 18:32 Referrals: [facility] (PCP/Family) Primary Care Physician Patient Instructions: COPD Exacerbation, Adult ED Add. Discharge Instructions: Use your nebulizer medications as previously directed. Follow-up with your primary care provider soon as possible. Use prednisone as prescribed. Call with questions or concerns. Return to the ER if you have worsening symptoms. All discharge instructions reviewed with patient and/or family. Voiced understanding. Scripts Prednisone (Prednisone) 20 Mg Tab 20 MG PO DAILY, #3 TAB 0 Refills Prov: FER MONTEIRO MD 01/11/21 Copy Copies To 1: KARON JENSEN MD, JOSHUA T MD January 11, 2021 16:32
[2021-01-11] MEDS ORDERED: CATHETER FLUSH 10 ML SYR IV PRN (17:00)
[2021-01-11] MEDS ORDERED: IOHEXOL 350 MG/ML 100 ML (OMNIPAQUE 350) VIAL IV ONE (17:00)
[2021-01-11] MEDS ORDERED: HOLD METFORMIN - RECEIVED CONTRAST 20 ML VIAL IV SCH (17:00)
--- NOTE | 2021-01-11 18:11 | Diagnostic Imaging Report ---
INDICATION: Chest pain, elevated d-dimer, hernia pain TECHNIQUE: CTA chest, abdomen and pelvis. Thin axial sections through the chest, abdomen and pelvis are obtained following intravenous contrast bolus. Multiplanar MIP images were reconstructed and reviewed. All CT scans use one or more of the following dose optimizing techniques: automated exposure control, MA and/or KvP adjustment based on patient size and exam type or iterative reconstruction. CORRELATION STUDY: CT chest, abdomen and pelvis 10/30/2019. FINDINGS: CTA CHEST: Heart size is normal with scattered mild coronary artery calcification. Prominence of the ascending aorta at 4.2 cm. No evidence for dissection. Normal branching pattern of the aortic arch. Prominent central pulmonary arteries. There is no filling defect to suggest pulmonary embolism. No pathologically enlarged mediastinal lymph node. There are some excretions particularly in the dependent right, and to a lesser degree peripheral left, bronchi. Lung read demonstrate no consolidating infiltrate. No effusion. CT ABDOMEN and PELVIS: The abdominal aorta with mild atherosclerotic change. Main arteries branches are patent at their origins. No aneurysm or dissection. Heterogeneous appearance about the liver without focal lesion. Gallbladder absent. Spleen, pancreas and adrenal glands demonstrate no definite evidence for an acute abnormality. Multifocal areas of scarring in the left kidney. No obstruction. Gastrointestinal tract demonstrates mild diffuse distention. No definitive obstruction. Postoperative changes of right inguinal hernia repair. There is apparent anastomotic suture line in the colon deep to this. There is asymmetric distention with what appears to be stool loading. Definitive abscess is not demonstrated. Urinary bladder decompressed. Post hysterectomy. Osseous structures demonstrate no acute abnormality. IMPRESSION: CTA CHEST: 1. No CT evidence for acute abnormality of the chest. No evidence for pulmonary embolism. 2. Prominent appearance about the pulmonary arteries suggesting pulmonary arterial hypertension. CT ABDOMEN and PELVIS: 1. Postoperative changes of right hernia repair. No definitive recurrent hernia. It is noted that there is potentially adherent loops of bowel to this area with some colonic distention. If symptoms do persist, short-term follow-up repeat imaging to include oral contrast administration would be recommended. Dictated by: Dictated on workstation # [id number]
[2021-01-11] MEDS ORDERED: PRD20T PO (18:35)
[2021-01-11 18:43] VITALS: BP 128/90
== END 2021-01-11 18:45 | disposition home or self-care (01) ==
LOC: EDUNIT# 15:41 → ER 15:44
DX: J43.9 Emphysema, unspecified (principal); R07.81 Pleurodynia; K43.9 Ventral hernia without obstruction or gangrene; R79.1 Abnormal coagulation profile; I10 Essential (primary) hypertension; G43.909 Migraine, unspecified, not intractable, without status migrainosus; F41.9 Anxiety disorder, unspecified; F32.9 Major depressive disorder, single episode, unspecified; Z99.81 Dependence on supplemental oxygen; Z79.51 Long term (current) use of inhaled steroids; Z79.52 Long term (current) use of systemic steroids; Z79.899 Other long term (current) drug therapy
CPT/HCPCS: 36415; 71275; 74177; 80053; 85025; 85379; 86141; 87636; 87804; 94640; 94644

== ENCOUNTER 2022-11-22 12:05 | Inpatient (IN) | payer MEDICAID ==
[~2022-11-22] VITALS: Ht 161.5 cm; Wt 47.0 kg
[~2022-11-22 12:05] MED LIST changes: +ALBU8.5H6 IH; +ALBU8.5H6 INH; +CYCL10TA25 PO; -CYCL10TA9 PO; +ONDA-106 PO; -ONDA8TAB15 PO; -RT-ALBUINH INH; -SULF1TAB35 PO; +SULF1TAB38 PO
[2022-11-22] MEDS ORDERED: NS IV 1000 ML 1,000 ML IV SCH (12:15)
[2022-11-22] MEDS ORDERED: MEROPENEM 500 MG in NS (IVPB) 100 ML IV ONE (12:15)
[2022-11-22 12:24] VITALS: BP 92/70
[2022-11-22 12:24] LABS: BASOPHILS % (AUTO) 0 % (0-10); EOSINOPHILS # (AUTO) 0.3 10^3/uL (0.0-0.3); EOSINOPHILS % (AUTO) 2 % (0-10); HEMATOCRIT 50 % (35-52); HEMOGLOBIN 14.6 g/dL (11.5-16.0); LYMPHOCYTES # (AUTO) 0.5 10^3/uL (1.0-4.0); LYMPHOCYTES % (AUTO) 3 % (12-44); MEAN CORPUSCULAR HEMOGLOBIN 28 pg (25-34); MEAN CORPUSCULAR HGB CONC 29 g/dL (32-36); MEAN CORPUSCULAR VOLUME 98 fL (80-99); MEAN PLATELET VOLUME 12.1 fL (9.0-12.2); MONOCYTES # (AUTO) 1.8 10^3/uL (0.0-1.0); MONOCYTES % (AUTO) 9 % (0-12); NEUTROPHILS # (AUTO) 16.3 10^3/uL (1.8-7.8); NEUTROPHILS % (AUTO) 85 % (42-75); PLATELET COUNT 236 10^3/uL (130-400); WHITE BLOOD COUNT 19.1 10^3/uL (4.3-11.0)
--- NOTE | 2022-11-22 12:30 | Diagnostic Imaging Report ---
CLINICAL INDICATION: Patient with shortness of air. EXAM: Portable chest x-ray upright view. COMPARISON: Chest x-ray dated 10/08/2020. FINDINGS: There is interval development of a large amount of infiltrate and patchy consolidation throughout the left lung with sparing of left lung apex. There is interval development of infiltrate involving the right perihilar and right lung base region. There is a left pleural effusion which has developed in the interim. There is no pneumothorax. Pulmonary vasculature is within normal limits. Cardiac silhouette is obscured. Bones show no significant interval abnormality. IMPRESSION: There is interval development of bilateral lung infiltrates (left side more than the right) concerning for pneumonia. Dictated by: Dictated on workstation # [id number]
[2022-11-22 12:35] LABS: ALBUMIN 3.6 GM/DL (3.2-4.5); CHLORIDE 98 MMOL/L (98-107); SODIUM 141 MMOL/L (135-145)
[2022-11-22 12:36] LABS: ABG BASE EXCESS 2.6 MMOL/L (-2.5-2.5); ABG OXYGEN SATURATION 99 % (94-100); ABG PCO2 68 MMHG (35-45); ABG PO2 149 MMHG (79-93); ABG TCO2 31.4 MMOL/L (21.0-31.0)
[2022-11-22 12:37] LABS: CALCIUM 11.1 MG/DL (8.5-10.1)
[2022-11-22 12:38] LABS: ABG PH 7.26 (7.37-7.43); PATIENT TEMP 36.7; VENTILATOR NO
[2022-11-22 12:38] LABS: GLUCOSE 125 MG/DL (70-105); TOTAL PROTEIN 7.6 GM/DL (6.4-8.2)
[2022-11-22 12:39] LABS: CARBON DIOXIDE 24 MMOL/L (21-32)
[2022-11-22 12:40] LABS: BILIRUBIN,TOTAL 0.9 MG/DL (0.1-1.0)
[2022-11-22 12:41] LABS: ALKALINE PHOSPHATASE 130 U/L (40-136); CREATININE SERUM 1.39 MG/DL (0.60-1.30); GFR ESTIMATED 45
[2022-11-22 12:42] LABS: BUN/CREATININE RATIO 25
[2022-11-22 12:44] LABS: ALANINE AMINOTRANSFERASE 19 U/L (0-55)
--- NOTE | 2022-11-22 12:44 | ED Respiratory ---
General Chief Complaint: Respiratory Problems Stated Complaint: SOB | AMS Source: patient, family (son whoi called in), EMS History of Present Illness Date Seen by Provider: Nov 22, 2022 Time Seen by Provider: 12:04 Initial Comments 52-year-old female presents to the emergency department via EMS. Reportedly EMS was called by her son who said that the patient was altered, somnolent and more short of breath than normal. He states that she is always short of breath however this is dramatically worse over the last couple days or so. No fevers or chills that is known. She does have a propensity for pneumonia. EMS reports fire was on scene first reported oxygen saturation in the 60s. They placed her on a nonrebreather. On arrival her oxygen saturations 87% on 15 L nonrebreather. She has significant respiratory distress with use of accessory muscles. She is somnolent but wakes to answer questions. She states she would want to be intubated if necessary to save her life and would want CPR to save her life as well she is alert, oriented and has a decision making capacity. She states she has been progressively more short of breath last couple of days but cannot really provide any more history than that. All other systems reviewed and negative except documented per HPI. Voice recognition software was used to help create this chart Allergies and Home Medications Allergies Coded Allergies: ofloxacin (Verified Allergy, Mild, 02/04/19) Penicillins (Verified Allergy, Unknown, Pt has received Ceftriaxone & Cefepime in the past w/o issue, 02/04/19) amoxicillin (Verified Allergy, Unknown, 02/04/19) clavulanic acid (Verified Allergy, Unknown, 02/04/19) promethazine (Verified Allergy, Unknown, 02/04/19) propoxyphene (Verified Allergy, Unknown, 02/04/19) ketorolac (Verified Adverse Reaction, Unknown, 11/08/17) tramadol (Verified Adverse Reaction, Unknown, 11/08/17) Patient Home Medication List Home Medication List Reviewed: Yes Albuterol Sulfate (Ventolin Hfa) 90 Mcg Hfa.aer.ad, 2 PUFF INH Q6H PRN for SHORTNESS OF BREATH, (Reported) Entered as Reported by: GINO GRIJALVA on 11/23/22 0780 Last Action: Reviewed Fluticasone/Salmeterol (Advair Hfa 115-21 Mcg Inhaler) 115 Mcg-21 Mcg/Actuation Hfa.aer.ad, 2 PUFF INH BID, (Reported) Entered as Reported by: GINO GRIJALVA on 11/23/221455 Last Action: Reviewed Fluticasone/Umeclidin/Vilanter (Trelegy Ellipta 100-62.5-25) 100-62.5 Blst.w.dev, 1 PUFF INH DAILY, (Reported) Entered as Reported by: GINO GRIJALVA on 11/23/221455 Last Action: Reviewed Gabapentin (Gabapentin) 800 Mg Tablet, 800 MG PO QID, (Reported) Entered as Reported by: GINO GRIJALVA on 11/23/221455 Last Action: Reviewed Morphine Sulfate (Morphine Sulfate ER) 30 Mg Tablet.er, 15 MG PO Q8H PRN for PAIN-SEVERE (8-10), (Reported) Entered as Reported by: GINO GRIJALVA on 11/23/221455 Last Action: Reviewed Ondansetron HCl (Ondansetron HCl) 8 Mg Tablet, 8 MG PO Q8H PRN for NAUSEA/VOMITING-1ST LINE, (Reported) Entered as Reported by: DANAE JAMIL on 10/08/2041 Last Action: Reviewed Pantoprazole Sodium (Pantoprazole Sodium) 40 Mg Tablet.dr, 40 MG PO DAILY, (Reported) Entered as Reported by: GINO GRIJALVA on 11/23/221455 Last Action: Reviewed Discontinued Medications Albuterol Sulfate (Ventolin Hfa) 1 Puff Puff, 2 PUFF IH Q4H PRN for SHORTNESS OF BREATH Discontinued Reason: No Longer Taking Prescribed by: ELVIS NERI on 09/19/191108 Last Action: Discontinued Budesonide/Formoterol Fumarate (Symbicort 80-4.5 Mcg Inhaler) 10.2 Gm Hfa.aer.ad, 2 PUFF IH BID Discontinued Reason: No Longer Taking Prescribed by: ELVIS NERI on 09/19/191108 Last Action: Discontinued Budesonide/Formoterol Fumarate (Budesonide-Formoterol 80-4.5) 10.2 Gm Hfa.aer.ad, (Reported) Discontinued Reason: No Longer Taking Entered as Reported by: DANAE JAMIL on 2/13/21 0042 Last Action: Discontinued Cetirizine HCl (Cetirizine HCl) 10 Mg Tablet, 10 MG PO DAILY, (Reported) Discontinued Reason: No Longer Taking Entered as Reported by: WOLFGANG DE SOUZA on 03/09/18 1656 Last Action: Discontinued Cyclobenzaprine HCl (Cyclobenzaprine HCl) 10 Mg Tablet, 10 MG PO HS, (Reported) Discontinued Reason: No Longer Taking Entered as Reported by: MILDRED POPE on 09/02/19 1040 Last Action: Discontinued Cyclobenzaprine HCl (Cyclobenzaprine HCl) 10 Mg Tablet, 5 MG PO DAILY PRN for MUSCLE SPASMS, (Reported) Discontinued Reason: No Longer Taking Entered as Reported by: MILDRED POPE on 09/16/19 1534 Last Action: Discontinued Dicyclomine HCl (Dicyclomine HCl) 10 Mg Capsule, 20 MG PO TID PRN for CRAMPS, (Reported) Discontinued Reason: No Longer Taking Entered as Reported by: MILDRED POPE on 02/05/19 0845 Last Action: Discontinued Fluticasone Propionate (Fluticasone Propionate) 16 Gm Faber.susp, 2 SPRAYS NS DAILY Discontinued Reason: No Longer Taking Prescribed by: ELVIS NERI on 09/19/19 1109 Last Action: Discontinued Gabapentin (Gabapentin) 800 Mg Tablet, 800 MG PO QID, (Reported) Discontinued Reason: No Longer Taking Entered as Reported by: MILDRED POPE on 09/02/19 1040 Last Action: Discontinued Hydrocodone Bit/Acetaminophen (Lortab 5 Mg Tablet) 1 Each Tablet, 1 TAB PO Q6H PRN for PAIN-MODERATE (5-7) Discontinued Reason: No Longer Taking Prescribed by: ELVIS NERI on 09/19/19 1103 Last Action: Discontinued Ipratropium/Albuterol Sulfate (Iprat-Albut 0.5-3(2.5) mg/3 ml) 3 Ml Ampul.neb, 3 ML INH RTQ4HR Discontinued Reason: No Longer Taking Prescribed by: ELVIS NERI on 09/19/19 1103 Last Action: Discontinued Lidocaine (Lidocaine 5% Patch) 1 Each Adh..patch, TOP DAILY, (Reported) Discontinued Reason: No Longer Taking Entered as Reported by: MILDRED POPE on 09/02/19 1040 Last Action: Discontinued Lipase/Protease/Amylase (Pancreruby Pretty 16,800 Unit Cap) 1 Each Capsule., 1 CAP PO TIDAC, (Reported) Discontinued Reason: No Longer Taking Entered as Reported by: MILDRED POPE on 02/05/19 0845 Last Action: Discontinued Multivit-Min/FA/Lycopene/Lut (Centrum Silver Tablet) 1 Each Tablet, 1 TAB PO DAILY, (Reported) Discontinued Reason: No Longer Taking Entered as Reported by: MILDRED POPE on 09/02/19 1040 Last Action: Discontinued Prednisone (Prednisone) 10 Mg Tab.ds.pk, 10 MG PO DAILY Discontinued Reason: No Longer Taking Prescribed by: ELVIS NERI on 09/19/19 1103 Last Action: Discontinued Prednisone (Prednisone) 20 Mg Tab, 20 MG PO DAILY Discontinued Reason: No Longer Taking Prescribed by: FER ELIZALDE on 01/11/21 1835 Last Action: Discontinued Sulfamethoxazole/Trimethoprim (Bactrim Ds Tablet) 1 Each Tablet, 1 EACH PO BID Discontinued Reason: No Longer Taking Prescribed by: ELVIS NERI on 09/19/19 1109 Last Action: Discontinued Review of Systems Review of Systems Constitutional: see HPI Past Vwidbjr-Gnfixr-Fhrxrl Hx Patient Social History Tobacco Use?: Yes Tobacco type used: Cigarettes Smoking Status: Current Everyday Smoker Substance use?: Unable to obtain Alcohol Use?: Unable to obtain Immunizations Up To Date Tetanus Booster (TDap): Unknown PED Vaccines UTD: No First/Initial COVID19 Vaccinat: UNKNOWN Seasonal Allergies Seasonal Allergies: No Past Medical History Surgery/Hospitalization HX: COPD Surgeries: Yes (left leg amputation) Abdominal, Amputation, Orthopedic Respiratory: Yes (ASPIRATION AND ARDS, wears O2 at home at 2 LPM) Asthma, Pneumonia, Chronic Bronchitis, COPD, Emphysema Currently Using CPAP: No Currently Using BIPAP: No Cardiac: Yes Hypertension Neurological: Yes (CHRONIC PHANTOM LEG PAIN, TREMORS) Headaches /Migraines, Stroke 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 Disorders: Yes 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 DOOR TRIMMER History: Hysterectomy Sexually Transmitted Disease: No HIV/AIDS: No Genitourinary: Yes (CHRONIC RENAL INSUFFICIENCY) UTI-Chronic Gastrointestinal: Yes (right colon resection) Chronic Constipation Musculoskeletal: Yes Amputee, Osteoporosis, Fractures Endocrine: Yes (history of chronic pancreatitis) HEENT: Yes (EDENTULOUS; BILATERAL CATARACT SURGERY) Cataract Loss of Vision: Denies Hearing Impairment: Denies Cancer: No Psychosocial: Yes Anxiety, Suicide Attempts, Depression Integumentary: No Blood Disorders: No Adverse Reaction/Blood Tranf: No Family Medical History Alzheimer's disease 19 FATHER 19 MOTHER Asthma 19 FATHER Completed stroke 19 FATHER Deafness or hearing loss 19 FATHER Dementia 19 FATHER Diabetes mellitus 19 FATHER 19 MOTHER Headache disorder 19 FATHER Hypertension 19 FATHER 19 MOTHER Myocardial infarction 19 FATHER 19 MOTHER Respiratory disorder 19 FATHER No Family History of: Kidney disease No Pertinent Family Hx Physical Exam Vital Signs - First Documented 11/22/22 11/22/22 11/22/22 11/22/22 12:08 12:17 13:47 13:59 Temp 36.7 Pulse 111 Resp 20 B/P (MAP) 68/54 Pulse Ox 89 O2 Delivery OxyMask O2 Flow Rate 2.00 FiO2 100 Capillary Refill : Height: 5'1.00" Weight: 82lbs. 0.0oz. 37.832170eg; 21.00 BMI Method:Stated General Appearance: severe distress (Severe respiratory distress with use of accessory muscles, somnolent) HEENT: normal ENT inspection, pharynx normal Neck: full range of motion, normal inspection Respiratory: respiratory distress, other (Rhonchi bilateral lung read worse on the left.) Cardiovascular: no murmur, tachycardia Gastrointestinal: normal bowel sounds, soft, other (Patient has a large periumbilical hernia. There are some tenderness superior to this which she states is chronic.) Extremities: other (Left BKA) Neurologic/Psychiatric: alert, oriented x 3, other (Somnolent) Skin: normal color, warm/dry Focused Exam Lactate Level 11/22/22 12:40: Lactic Acid Level 3.18*H Lactic Acid Level Laboratory Tests Test 11/22/22 12:40 Lactic Acid Level 3.18 MMOL/L (0.50-2.00) *H Procedures/Interventions Date of ETT Placement: Sep 09, 2019 Time of ETT Placement: 2144 Intubation Method: orotracheal Tube Size: 7.5 Medications: Etomidate, Rocuronium Positive End Tide CO2: Yes Breath Sounds after Intubation: bilateral-equal Intubation Complications: no complications Post Intubation Xray: Yes Progress/Results/Core Measures Suspected Sepsis SIRS Temperature: Pulse: 112 Respiratory Rate: 16 Blood Pressure 92 /70 Mean: 11/22/22 12:40: Lactic Acid Level 3.18*H Laboratory Tests 11/22/22 12:00: INR Comment 1.1 Results/Orders Lab Results Laboratory Tests Test 11/22/22 12:00 11/22/22 12:25 11/22/22 12:40 11/22/22 13:10 Range/Units White Blood Count 19.1 H 4.3-11.0 10^3/uL Red Blood Count 5.15 H 3.80-5.11 10^6/uL Hemoglobin 14.6 11.5-16.0 g/dL Hematocrit 50 35-52 % Mean Corpuscular Volume 98 80-99 fL Mean Corpuscular Hemoglobin 28 25-34 pg Mean Corpuscular Hemoglobin Concent 29 L 32-36 g/dL Red Cell Distribution Width 18.2 H 10.0-14.5 % Platelet Count 236 130-400 10^3/uL Mean Platelet Volume 12.1 9.0-12.2 fL Immature Granulocyte % (Auto) 1 % Neutrophils (%) (Auto) 85 H 42-75 % Lymphocytes (%) (Auto) 3 L 12-44 % Monocytes (%) (Auto) 9 0-12 % Eosinophils (%) (Auto) 2 0-10 % Basophils (%) (Auto) 0 0-10 % Neutrophils # (Auto) 16.3 H 1.8-7.8 10^3/uL Lymphocytes # (Auto) 0.5 L 1.0-4.0 10^3/uL Monocytes # (Auto) 1.8 H 0.0-1.0 10^3/uL Eosinophils # (Auto) 0.3 0.0-0.3 10^3/uL Basophils # (Auto) 0.0 0.0-0.1 10^3/uL Immature Granulocyte # (Auto) 0.2 H 0.0-0.1 10^3/uL Neutrophils % (Manual) 71 % Lymphocytes % (Manual) 4 % Monocytes % (Manual) 10 % Eosinophils % (Manual) 1 % Band Neutrophils 14 % Anisocytosis MODERATE Prothrombin Time 14.4 12.2-14.7 SEC INR Comment 1.1 0.8-1.4 Activated Partial Thromboplast Time 29 24-35 SEC Sodium Level 141 135-145 MMOL/L Potassium Level 5.0 3.6-5.0 MMOL/L Chloride Level 98 98-107 MMOL/L Carbon Dioxide Level 24 21-32 MMOL/L Anion Gap 19 H 5-14 MMOL/L Blood Urea Nitrogen 35 H 7-18 MG/DL Creatinine 1.39 H 0.60-1.30 MG/DL Estimat Glomerular Filtration Rate 45 BUN/Creatinine Ratio 25 Glucose Level 125 H 70-105 MG/DL Calcium Level 11.1 H 8.5-10.1 MG/DL Corrected Calcium 11.4 H 8.5-10.1 MG/DL Total Bilirubin 0.9 0.1-1.0 MG/DL Aspartate Amino Transf (AST/SGOT) 23 5-34 U/L Alanine Aminotransferase (ALT/SGPT) 19 0-55 U/L Alkaline Phosphatase 130 40-136 U/L Total Protein 7.6 6.4-8.2 GM/DL Albumin 3.6 3.2-4.5 GM/DL Triglycerides Level 122 <150 MG/DL Lipase < 4 L 8-78 U/L Blood Gas Puncture Site NA RT WRIST Blood Gas Patient Temperature 36.7 36.7 Arterial Blood pH 7.26 *L 7.19 *L 7.37-7.43 Arterial Blood Partial Pressure CO2 68 H 81 *H 35-45 MMHG Arterial Blood Partial Pressure O2 149 H 57 L 79-93 MMHG Arterial Blood HCO3 29 H 30 H 23-27 MMOL/L Arterial Blood Total CO2 31.4 H 32.2 H 21.0-31.0 MMOL/L Arterial Blood Oxygen Saturation 99 83 L 94-100 % Arterial Blood Base Excess 2.6 H 2.0 -2.5-2.5 MMOL/L Marino Test NA YES-POS Blood Gas Ventilator Setting NO NO Blood Gas Inspired Oxygen NA 100% Lactic Acid Level 3.18 *H 0.50-2.00 MMOL/L Test 11/22/22 13:58 Range/Units Urine Color ORANGE Urine Clarity CLEAR Urine pH 6.0 5-9 Urine Specific [place] 1.025 H 1.016-1.022 Urine Protein 3+ H NEGATIVE Urine Glucose (UA) NEGATIVE NEGATIVE Urine Ketones NEGATIVE NEGATIVE Urine Nitrite NEGATIVE NEGATIVE Urine Bilirubin 2+ H NEGATIVE Urine Urobilinogen 1.0 < = 1.0 MG/DL Urine Leukocyte Esterase NEGATIVE NEGATIVE Urine RBC (Auto) NEGATIVE NEGATIVE Urine RBC NONE /HPF Urine WBC 0-2 /HPF Urine Squamous Epithelial Cells 2-5 /HPF Urine Crystals PRESENT H /LPF Urine Amorphous Sediment MOD PATY URATES H /LPF Urine Bacteria LARGE H /HPF Urine Casts PRESENT /LPF Urine Hyaline Casts 5-10 H /LPF Urine Granular Casts 2-5 H /LPF Urine Mucus MODERATE H /LPF Urine Culture Indicated YES Micro Results Microbiology 11/22/22 Urine Culture - Final, Complete NO GROWTH 11/22/22 Gram Stain - Final, Complete 11/22/22 Sputum Culture - Final, Complete Streptococcus pneumoniae 11/22/22 Blood Culture - Final, Complete Streptococcus pneumoniae See Comments 11/22/22 Blood Culture - Preliminary, Resulted No growth My Orders Orders - OSMINPABLO DO Cbc With Automated Diff (11/22/22 12:15) Comprehensive Metabolic Panel (11/22/22 12:15) Blood Culture (11/22/22 12:15) Protime With Inr (11/22/22 12:15) Partial Thromboplastin Time (11/22/22 12:15) Ed Iv/Invasive Line Start (11/22/22 12:15) Ed Iv/Invasive Line Start (11/22/22 12:15) Vital Signs Adult Sepsis Patie Q15M (11/22/22 12:15) O2 (11/22/22 12:15) Remove Rings In Anticipation O (11/22/22 12:15) Lactic Acid Analyzer (11/22/22 12:15) Ns Iv 1000 Ml (Sodium Chloride 0.9%) (11/22/22 12:15) Meropenem (Merrem 500 Mg) (11/22/22 12:15) Lipase (11/22/22 12:19) Arterial Blood Gas (11/22/22 12:20) Manual Differential (11/22/22 12:00) Vancomycin Injection (Vancomycin Injecti (11/22/22 13:15) Arterial Blood Gas (11/22/22 13:16) Etomidate Injection (Amidate Injection) (11/22/22 13:45) Rocuronium 5 Ml Syringe (Rocuronium 5 Ml (11/22/22 13:45) Fentanyl Drip Pre-Mix (Fentanyl Drip Pre (11/22/22 13:45) Ns Iv 1000 Ml (Sodium Chloride 0.9%) (11/22/22 13:41) Chest 1 View, Ap/Pa Only (11/22/22 13:49) Ed Admission (Communication) (11/22/22 14:14) Medications Given in ED Vital Signs/I&O 11/22/22 11/22/22 11/22/22 11/22/22 12:08 12:17 12:24 13:47 Temp 36.7 Pulse 111 112 97 Resp 20 16 20 B/P (MAP) Pulse Ox 89 89 100 O2 Delivery OxyMask Nasal Cannula O2 Flow Rate 2.00 100.00 FiO2 100 11/22/22 13:59 Pulse 96 B/P (MAP) 68/54 Capillary Refill : Critical Care Note Critical Care Total Time (minutes) 60 Departure Communication (Admissions) On arrival patient in severe respiratory distress with use of accessory muscles. She was somnolent but alert so we tried BiPAP. Initial pH came back at 7.26. Repeat ABG pending though clinically she seems to be improving. Initial oxygen saturation read about 87%. When we get the ABG back on 15 L nonrebreather PO2 is 149. I think she is likely not perfusing her fingers well or getting an erroneous reading there. Oxygen was decreased after this finding. She is still requiring quite a bit of PEEP and has some increased work of breathing but it has improved some with BiPAP. She is still in some respiratory distress however. Chest x-ray shows severe pneumonia, most significant on the left but also on the right lung. She is started on broad-spectrum antibiotics, meropenem and vancomycin. She was given 1 L bolus of IV fluids when she got here. Her systolic blood pressures in the 90s however she is very very small with a weight of only 35.4 kg. Her map is normal. This is likely normal for her. She does not qualify for the 30 cc/kg bolus as her lactate is less than 4 MAP is greater than 65. Awaiting repeat ABG now to decide what to do further with her respiratory status. Is improving would likely go ahead with BiPAP. If the same or worsening we will likely need to intubate her. I have discussed with her rodney or to going on BiPAP her wishes. She is a full code. Repeat ABG about 30 to 45 minutes on BiPAP shows pH worsening, CO2 declining. Patient is more somnolent. We decided to him intubate her which she tolerated well with only transient hypotensive episode in the 70s systolic with quick resolution shortly after intubation. Started Fentanyl drip for comfort. 1410: Spoke to Dr mancilla who accepts admission at this time. No further orders and he states he will put in acute care orders. Impression Primary Impression: Community acquired pneumonia Qualified Codes: J18.9 - Pneumonia, unspecified organism Additional Impressions: Hypoxia Sepsis Qualified Codes: A41.9 - Sepsis, unspecified organism Disposition: ADMITTED INPATIENT Condition: Stable Admissions Decision to Admit Reason: Admit from ER (General) Departure-Patient Inst. Referrals: KARON JENSEN MD (PCP/Family) Primary Care Physician PABLO SOLORIO DO Nov 22, 2022 12:44
[2022-11-22 12:45] LABS: LIPASE < 4 U/L (8-78)
[2022-11-22 12:47] LABS: ANISOCYTOSIS MODERATE; BAND NEUTROPHILS 14 %; EOSINOPHILS % (MANUAL) 1 %; LYMPHOCYTES % (MANUAL) 4 %; MONOCYTES % (MANUAL) 10 %; NEUTROPHILS % (MANUAL) 71 %
[2022-11-22 12:48] LABS: INR 1.1 (0.8-1.4); PROTHROMBIN TIME PATIENT 14.4 SEC (12.2-14.7)
[2022-11-22] MEDS ORDERED: VANCOMYCIN INJECTION 1,000 MG in NS (IVPB) 250 ML IV ONE (13:15)
[2022-11-22 13:24] LABS: ABG OXYGEN SATURATION 83 % (94-100); ABG PO2 57 MMHG (79-93); ABG TCO2 32.2 MMOL/L (21.0-31.0)
[2022-11-22 13:30] LABS: ABG PCO2 81 MMHG (35-45); ABG PH 7.19 (7.37-7.43)
[2022-11-22 13:31] LABS: ALLENS TEST YES-POS
[2022-11-22 13:32] LABS: INSPIRED O2 100%; PATIENT TEMP 36.7; VENTILATOR NO
[2022-11-22] MEDS ORDERED: NS IV 1000 ML 1,000 ML ONE (13:41)
[2022-11-22] MEDS ORDERED: ETOMIDATE IV SOLN 20 MG/10 ML VIAL IV ONE ×2 (13:45→15:52)
[2022-11-22] MEDS ORDERED: ROCURONIUM 10 MG/ML 5 ML SYRINGE IV ONE (13:45)
[2022-11-22 13:47] VITALS: BP 98/81
[2022-11-22] MEDS: fentaNYL DRIP PRE-MIX 250 ML IV SCH (13:59)
--- NOTE | 2022-11-22 14:23 | Diagnostic Imaging Report ---
EXAMINATION: Chest radiograph, portable AP view. DATE: 11/22/2022 2:12 PM INDICATION: 52-year-old female, intubation. Shortness of breath. COMPARISON: November 22, 2022 at 1207 hours. FINDINGS: The endotracheal tube is approximately 2.1 cm above the tyesha and is newly placed. The tip of the nasogastric tube is at the level of the gastroesophageal junction. The side-port is at the level of the distal esophagus. Recommend advancement. Size and mediastinal contours are unchanged. There is no identified pneumothorax. There is extensive multifocal airspace consolidation in the right lung as well as right perihilar and right lower lobe consolidation. This is unchanged. IMPRESSION: 1. Unchanged multifocal bilateral lung consolidation. 2. Interval placement of support lines and tubes as above. Recommend advancement of the nasogastric tube. Dictated by: Dictated on workstation # [id number]
[2022-11-22 15:09] VITALS: BP 134/101
[2022-11-22 15:27] LABS: CLARITY,URINE CLEAR; COLOR,URINE ORANGE; GLUCOSE, URINE (UA) NEGATIVE (NEGATIVE); KETONES,URINE NEGATIVE (NEGATIVE); LEUKOCYTE ESTERASE ,URINE NEGATIVE (NEGATIVE); NITRITE,URINE NEGATIVE (NEGATIVE); PROTEIN,URINE 3+ (NEGATIVE)
[2022-11-22] MEDS ORDERED: polyethylene glycoL POWDER 17 GM (MIRALAX) PACK PO PRN (15:30)
[2022-11-22] MEDS ORDERED: LACTULOSE SYRUP 10GM/15ML (ENULOSE) 30ML UDC PO PRN (15:30)
[2022-11-22] MEDS ORDERED: diphenhydrAMINE 25 MG TAB (BENADRYL) PO PRN (15:30)
[2022-11-22] MEDS ORDERED: VANCOMYCIN INJECTION 0.1 MG in NS (IVPB) 250 ML IV SCH (15:30)
[2022-11-22] MEDS ORDERED: CALCIUM CARBONATE 500 MG (TUMS) TAB.CHEW PO PRN (15:30)
[2022-11-22] MEDS ORDERED: ENOXAPARIN 40 MG/0.4 ML (LOVENOX) SYR SC SCH (15:30)
[2022-11-22] MEDS ORDERED: MILK OF MAGNESIA 400 MG/5 ML 30 ML UDC PO PRN (15:30)
[2022-11-22] MEDS ORDERED: ANTACID SUSP 30 ML UDC (MYLANTA) PO PRN (15:30)
[2022-11-22] MEDS ORDERED: NS IV 500 ML 500 ML IV PRN ×2 (15:30→18:45)
[2022-11-22] MEDS ORDERED: ONDANSETRON 4 MG (ZOFRAN) ORAL DISSOLVE TAB PO PRN (15:30)
[2022-11-22] MEDS ORDERED: BISACODYL 10 MG SUPP (DULCOLAX) PR PRN (15:30)
[2022-11-22] MEDS ORDERED: ONDANSETRON 4 MG/2 ML (SDV) Z0FRAN IV PRN (15:30)
[2022-11-22] MEDS ORDERED: diphenhydrAMINE 50 MG/ML INJ (BENADRYL) IVP PRN (15:30)
[2022-11-22 15:33] VITALS: BP 118/90
[2022-11-22] MEDS ORDERED: RT-ALBUTEROL/IPRATROPIUM 3 ML (DUONEB) VIAL INH PRN (15:45)
[2022-11-22] MEDS ORDERED: ROCURONIUM 50 MG/5 ML (ZEMURON) VIAL IV ONE (15:52)
--- NOTE | 2022-11-22 15:54 | Tele-ICU Consult ---
History of Present Illness History of Present Illness Date Seen by Provider: Nov 22, 2022 Time Seen by Provider: 15:53 Date of Admission (Tele-ICU Physician , consultation as per request of PCP Service provided via interactive audio and video telecommunications E-CARE system to a patient admitted to ICU bed in [facility]. Available chart/ vitals / labs / Images reviewed H&P is from ER notes Patient's information available about PMH, Shx, Fhx allergy reviewed inEMR. ROS as per chart and RN report Now in ICU, hemodynamically stable Video assessment done using teleICU camera, rest of exam as per RN Discussed with RN. fentanyl 100 VENT SETTINGS and ABG reviewed NOT CANDIDATE for SBTreviewed possible contraindications including Cardiovascular Stability /Sedation Score / FI02/PEEP / ABG / CXR/ secretions Sedation, discussed with RN, RASS on Hospital course: 11/22 - ARF/PNA , failed BIPAP in ER , intubated , AC 20 300 ml 40 % peep 5 A/P Acute resp failure ( hypoxix and hypercarbic ) with PNA and AECOPD - intubated 11/22 ( failed BIPAP ) -AC 20 300 ml 40 % peep 5 - cont vent support , ajgust setting, follow abg PNA , LEFT - multiple allergies - started on vanco and merrem - to cont and await cx -copious secretions Sepsis - recived 300 cc/kg as per protocol - lactate can be elevated in part due to severe hypoxia on arrival - follow RAFIQ ( cr 1.4 on admission ) - cont hydration , follow AECOPD - nebs - not on steroids IV with PAP 12 COPD - ? 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 Discussed with RN to reach out if any questions or concerns A total of31 minutes of critical care time was devoted to this patient today, required to treat and/or prevent further deterioration of critical care condition ( as above ) . I am remotely monitoring this patient from another state. I am unable to do the bedside exam, and history/physical and pertinent information is taken from other notes in the computer and bedside staff. . Allergies and Home Medications Allergies Coded Allergies: ofloxacin (Verified Allergy, Mild, 02/04/19) Penicillins (Verified Allergy, Unknown, Pt has received Ceftriaxone & Cefepime in the past w/o issue, 02/04/19) amoxicillin (Verified Allergy, Unknown, 02/04/19) clavulanic acid (Verified Allergy, Unknown, 02/04/19) promethazine (Verified Allergy, Unknown, 02/04/19) propoxyphene (Verified Allergy, Unknown, 02/04/19) ketorolac (Verified Adverse Reaction, Unknown, 11/08/17) tramadol (Verified Adverse Reaction, Unknown, 11/08/17) Home Medications Albuterol Sulfate 1 Puff Puff, 2 PUFF IH Q4H PRN for SHORTNESS OF BREATH Prescribed by: ELVIS NERI on 09/19/19 110 Budesonide/Formoterol Fumarate 10.2 Gm Hfa.aer.ad, 2 PUFF IH BID Prescribed by: ELVIS NERI on 09/19/19 110 Cetirizine HCl 10 Mg Tablet, 10 MG PO DAILY, (Reported) Cyclobenzaprine HCl 10 Mg Tablet, 10 MG PO HS, (Reported) Cyclobenzaprine HCl 10 Mg Tablet, 5 MG PO DAILY PRN for MUSCLE SPASMS, (Reported) Dicyclomine HCl 10 Mg Capsule, 20 MG PO TID PRN for CRAMPS, (Reported) TAKES 2 (10MG) CAPSULES Fluticasone Propionate 16 Gm [place].susp, 2 SPRAYS NS DAILY Prescribed by: ELVIS NERI on 09/19/19 110 Gabapentin 800 Mg Tablet, 800 MG PO QID, (Reported) FILLED #56 08-24- Hydrocodone Bit/Acetaminophen 1 Each Tablet, 1 TAB PO Q6H PRN for PAIN-MODERATE (5-7) Prescribed by: ELVIS NERI on 09/19/19 110 Ipratropium/Albuterol Sulfate 3 Ml Ampul.neb, 3 ML INH RTQ4HR Prescribed by: ELVIS NERI on 09/19/19 110 Lidocaine 1 Each Adh..patch, TOP DAILY, (Reported) LAST FILLED #30 07-28-19 Lipase/Protease/Amylase 1 Each Capsule.dr, 1 CAP PO TIDAC, (Reported) Multivit-Min/FA/Lycopene/Lut 1 Each Tablet, 1 TAB PO DAILY, (Reported) Prednisone 10 Mg Tab.ds.pk, 10 MG PO DAILY Take 6 tabs(60mg)daily,decrease by 1 tab(10MG)daily. Prescribed by: ELVIS NEIR on 09/19/19 1103 Prednisone 20 Mg Tab, 20 MG PO DAILY Prescribed by: FER ELIZALDE on 01/11/21 1835 Sulfamethoxazole/Trimethoprim 1 Each Tablet, 1 EACH PO BID Prescribed by: ELVIS NERI on 09/19/19 1109 Past Medical/Social/Family Hx Patient Social History Tobacco Use?: Yes Tobacco type used: Cigarettes Smoking Status: Current Everyday Smoker Substance use?: Unable to obtain Alcohol Use?: Unable to obtain Immunizations Up To Date First/Initial COVID19 Vaccinat: UNKNOWN Tetanus Booster (TDap): Unknown Hepatitis A: No Hepatitis B: No TB Skin Test: None Date of Pneumonia Vaccine: Jul 26, 2009 Current Status status: Unable to obtain Advance Directives: Unable to obtain Communicates: Verbally Primary Language: Citizen Of [place] Preferred Spoken Language: Citizen Of [place] Past Medical History Past Medical History 1. Chronic Alcoholism 2. Chronic Narcotic abuse with multiple admissions for overdoses 3. Tobaccoism 4. Multiple hospital admissions for overdoses of alcohol and narcotics 5. 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 History of chronic pancreatitis 7. Anxiety and Depression with history of admission for suicide attempt 8. Chronic Obstructive Pulmonary Disease 9. THC use 10. History of aspiration pneumonia secondary to overdose and ARDS 11. 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 12. Migraines 13. Osteoporosis 14. History of gastric ulcer 15. Osteoarthritis 16. Anxiety /Bipolar Disorder 17. Bilateral Carpal Tunnel 18. History of involuntary committal to inpatient psychiatric facility Past Surgical History 1. Cholecystectomy 1991 2. JAMEY BSO- for gangenous uterus 3. Lt. TKA 4. Lt. Leg fracture around prosthesis resulting in poor healing fracture with Lt. AKA. 5. Hiatal Hernia Repair 6. Abdominal Hernia repair with mesh 7. Teeth extraction 8. Revision of Lt. AKA stump Dr. Mario Alberto Hodge 12-15-14 Review of Systems Constitutional: see HPI Focused Exam Lactate Level 11/22/22 12:40: Lactic Acid Level 3.18*H 11/22/22 15:14: Lactic Acid Level 2.08*H Height, Weight, BMI Height: 5'1.00" Weight: 82lbs. 0.0oz. 37.512769yv; 21.00 BMI Method:Stated Lactic Acid Level Laboratory Tests Test 11/22/22 12:40 11/22/22 15:14 Lactic Acid Level 3.18 MMOL/L (0.50-2.00) *H 2.08 MMOL/L (0.50-2.00) *H Within 3hrs of presentation: Admin 30ml/kg IBW due to BMI>30, Admin ABX, Blood cultures prior to ABX's, Focus exam Exam Exam Patient acknowledged, consented, and participated in this virtual visit which was conducted using real time audio/video Vital Signs Date Time Temp Pulse Resp B/P (MAP) Pulse Ox O2 Delivery O2 Flow Rate FiO2 11/22/22 15:33 36.7 98 100 60 11/22/22 15:32 36.6 11/22/22 15:27 40 11/22/22 15:10 105 20 100 Mechanical Ventilator 40.00 11/22/22 15:05 113 11/22/22 15:00 105 20 128/96 (107) 100 Mechanical Ventilator 60.00 11/22/22 15:00 36.7 98 16 118/90 100 Mechanical Ventilator 11/22/22 14:55 Mechanical Ventilator 60.00 11/22/22 13:59 96 68/54 11/22/22 12:24 112 16 89 100.00 11/22/22 12:17 Nasal Cannula 2.00 11/22/22 12:08 36.7 111 20 89 OxyMask Height & Weight Height: 5'1.00" Weight: 82lbs. 0.0oz. 37.574039zb; 21.00 BMI Method:Stated General Appearance: Other Gastrointestinal: normal bowel sounds, soft, other (Patient has a large periumbilical hernia. There are some tenderness superior to this which she states is chronic.) Results Lab Laboratory Tests 11/22/22 12:00 Assessment/Plan Assessment/Plan 1 EAGLE GANNON MD Nov 22, 2022 15:54
[2022-11-22] MEDS: NS IV 1000 ML 1,000 ML IV SCH (15:59)
[2022-11-22 16:24] LABS: BILIRUBIN,URINE 2+ (NEGATIVE)
[2022-11-22 16:29] LABS: BACTERIA,URINE LARGE /HPF
[2022-11-22 16:33] LABS: AMORPHOUS SEDIMENT,UR MOD AMOR URATES /LPF; WBC,URINE 0-2 /HPF
[2022-11-22] MEDS: DexMEDEtomidine 250 ML DRIP 250 ML IV SCH (16:37)
[2022-11-22] MEDS: ENOXAPARIN INJECTION 30 MG/0.3 ML SYR SC SCH (16:44)
[2022-11-22] MEDS ORDERED: NS IV 500 ML 500 ML IV SCH (17:00)
[2022-11-22] MEDS ORDERED: NS IV 500 ML 500 ML ONE (17:04)
[2022-11-22 17:20] LABS: ABG BASE EXCESS -1.2 MMOL/L (-2.5-2.5); ABG OXYGEN SATURATION 94 % (94-100); ABG PCO2 41 MMHG (35-45); ABG PH 7.38 (7.37-7.43); ABG PO2 65 MMHG (79-93); ABG TCO2 24.5 MMOL/L (21.0-31.0); ALLENS TEST POSITIVE; INSPIRED O2 40%; PATIENT TEMP 36.9; VENTILATOR YES
[2022-11-22 18:37] VITALS: BP 105/77
[2022-11-22] MEDS: RT-ALBUTEROL/IPRATROPIUM 3 ML (DUONEB) VIAL INH SCH ×2 (18:37→21:53)
[2022-11-22] MEDS ORDERED: fentaNYL INJ 100 MCG/2 ML AMP ONE (18:40)
[2022-11-22] MEDS ORDERED: PROPOFOL DRIP (ICU) 100 ML IV ONE (18:41)
[2022-11-22] MEDS ORDERED: fentaNYL INJ 100 MCG/2 ML AMP IVP PRN (18:45)
--- NOTE | 2022-11-22 18:47 | History & Physical-Hospitalist ---
History of Present Illness HPI/Chief Complaint Cara Pruett is a 52 year old female with PMH COPD on home oxygen 3 L, anxiety, depression, alcohol abuse, tobacco abuse, who presented with shortness of breath. She is intubated and sedated. All history is obtained from the ER physician. Her son reported that she has been more short of breath the past few days. She was found by EMS with oxygen saturations in the 60s on her 3 L. She was placed on 15 L nonrebreather. She remained mildly hypoxic. She had an ABG that showed acute hypercapnia. She was placed on BIPAP. Her follow up ABG was worse and she was intubated. She is now admitted to the ICU. Source: RN/MD Exam Limitations: clinical condition Date Seen 11/22/22 Time Seen by a Provider: 16:50 Attending Physician Adi Singleton MD PCP Admitting Physician: Iggy Huff MD Attending Physician: Iggy Huff MD Referring Physician Date of Admission Nov 22, 2022 at 14:49 Home Medications & Allergies Home Medications Reviewed patient Home Medication Reconciliation performed by pharmacy medication reconciliations electrical service technician and/or nursing. Patients Allergies have been reviewed. Allergies Allergies Coded Allergies ofloxacin (Verified Allergy, Mild, 02/04/19) Penicillins (Verified Allergy, Unknown, Pt has received Ceftriaxone & Cefepime in the past w/o issue, 02/04/19) amoxicillin (Verified Allergy, Unknown, 02/04/19) clavulanic acid (Verified Allergy, Unknown, 02/04/19) promethazine (Verified Allergy, Unknown, 02/04/19) propoxyphene (Verified Allergy, Unknown, 02/04/19) ketorolac (Verified Adverse Reaction, Unknown, 11/08/17) tramadol (Verified Adverse Reaction, Unknown, 11/08/17) Past Yzynzuf-Teduio-Weuvws Hx Patient Social History Tobacco Use?: Yes Tobacco type used: Cigarettes Smoking Status: Current Everyday Smoker Substance use?: Unable to obtain Alcohol Use?: Unable to obtain Immunizations Up To Date Date of Influenza Vaccine: Aug 26, 2019 First/Initial COVID19 Vaccinat: UNKNOWN Tetanus Booster (TDap): Unknown Hepatitis A: No Hepatitis B: No PED Vaccines UTD: No Date of Pneumonia Vaccine: Jul 26, 2009 Seasonal Allergies Seasonal Allergies: No Current Status status: Unable to obtain Advance Directives: Unable to obtain Communicates: Verbally Primary Language: Mauritian Preferred Spoken Language: Mauritian Past Medical History Surgeries: Abdominal, Amputation, Orthopedic Asthma, Pneumonia, Chronic Bronchitis, COPD, Emphysema Currently Using CPAP: No Currently Using BIPAP: No Hypertension Headaches /Migraines, Stroke 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 Chronic Alcoholism 2. Chronic Narcotic abuse with multiple admissions for overdoses 3. Tobaccoism 4. Multiple hospital admissions for overdoses of alcohol and narcotics 5. 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 History of chronic pancreatitis 7. Anxiety and Depression with history of admission for suicide attempt 8. Chronic Obstructive Pulmonary Disease 9. THC use 10. History of aspiration pneumonia secondary to overdose and ARDS 11. 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 12. Migraines 13. Osteoporosis 14. History of gastric ulcer 15. Osteoarthritis 16. Anxiety /Bipolar Disorder 17. Bilateral Carpal Tunnel 18. History of involuntary committal to inpatient psychiatric facility Past Surgical History 1. Cholecystectomy 1991 2. JAMEY BSO- for gangenous uterus 3. Lt. TKA 4. Lt. Leg fracture around prosthesis resulting in poor healing fracture with Lt. AKA. 5. Hiatal Hernia Repair 6. Abdominal Hernia repair with mesh 7. Teeth extraction 8. Revision of Lt. AKA stump Dr. Mario Alberto Hodge 12-15-14 Family Medical History Alzheimer's disease 19 FATHER 19 MOTHER Asthma 19 FATHER Completed stroke 19 FATHER Deafness or hearing loss 19 FATHER Dementia 19 FATHER Diabetes mellitus 19 FATHER 19 MOTHER Headache disorder 19 FATHER Hypertension 19 FATHER 19 MOTHER Myocardial infarction 19 FATHER 19 MOTHER Respiratory disorder 19 FATHER No Family History of: Kidney disease No Pertinent Family Hx Review of Systems Constitutional: see HPI Physical Exam Physical Exam Vital Signs Vital Signs - First Documented 11/22/22 11/22/22 11/22/22 11/22/22 12:08 12:17 13:47 13:59 Temp 36.7 Pulse 111 Resp 20 B/P (MAP) 68/54 Pulse Ox 89 O2 Delivery OxyMask O2 Flow Rate 2.00 FiO2 100 Capillary Refill : Height, Weight, BMI Height: 5'1.00" Weight: 82lbs. 0.0oz. 37.314986bz; 13.41 BMI Method:Stated General Appearance: No Apparent Distress, Chronically ill, Thin HEENT: PERRL/EOMI, Other (ET tube in place) Respiratory: Lungs Clear, No Respiratory Distress Cardiovascular: Regular Rate, Rhythm, No Murmur Gastrointestinal: Normal Bowel Sounds, Soft, Hernia Extremity: No Pedal Edema, Other (left BKA) Neurologic/Psychiatric: Alert, Other (sedated) Skin: Normal Color, Warm/Dry Results Results/Procedures Labs Laboratory Tests 11/22/22 12:00 Patient resulted labs reviewed. Imaging: Reviewed Imaging Report Assessment/Plan Admission Diagnosis Acute on chronic respiratory failure with hypoxia and hypercapnia Admission Status: Inpatient Order (span 2 midnights) Reason for Inpatient Admission: Respiratory failure Assessment and Plan Acute on chronic respiratory failure with hypoxia and hypercapnia Severe sepsis due to pneumonia Lactic acidosis Acute kidney injury COPD Cachexia Intubated and sedated TeleICU consulted Lactic acid normalized after fluids Sputum culture pending Blood cultures pending IV fluids Vanc and Merrem DVT prophylaxis: Lovenox Critical Care Critically Ill Patient Diagnosis/Problems Diagnosis/Problems (1) Acute on chronic respiratory failure with hypoxia and hypercapnia Status: Acute (2) Severe sepsis Status: Acute (3) Pneumonia Status: Acute (4) RAFIQ (acute kidney injury) Status: Acute (5) Lactic acidosis Status: Acute (6) 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
[2022-11-22] MEDS: PROPOFOL DRIP (ICU) 100 ML IV SCH (18:51)
[2022-11-22 21:53] VITALS: BP 94/67
[2022-11-22] MEDS: RT-BUDESONIDE NEBS 0.5 MG/2ML (PULMICORT) AMP INH SCH (21:53)
[2022-11-22] MEDS: MEROPENEM 500 MG in NS (IVPB) 100 ML IV SCH (23:01)
[2022-11-22] MEDS: DOCUSATE SODIUM 100 MG (COLACE) CAP PO SCH (23:03)
[2022-11-22] MEDS: SENNOSIDES 8.6 MG (SENOKOT) TAB PO SCH (23:03)
[2022-11-23] MEDS: NS IV 1000 ML 1,000 ML IV SCH ×4 (00:39→21:37)
[2022-11-23 02:16] VITALS: BP 85/55
[2022-11-23] MEDS: RT-ALBUTEROL/IPRATROPIUM 3 ML (DUONEB) VIAL INH SCH ×6 (02:16→22:13)
[2022-11-23 05:00] LABS: BASOPHILS # (AUTO) 0.1 10^3/uL (0.0-0.1); BASOPHILS % (AUTO) 1 % (0-10); EOSINOPHILS # (AUTO) 0.1 10^3/uL (0.0-0.3); EOSINOPHILS % (AUTO) 1 % (0-10); HEMATOCRIT 38 % (35-52); HEMOGLOBIN 11.2 g/dL (11.5-16.0); LYMPHOCYTES # (AUTO) 0.4 10^3/uL (1.0-4.0); LYMPHOCYTES % (AUTO) 5 % (12-44); MEAN CORPUSCULAR HEMOGLOBIN 28 pg (25-34); MEAN CORPUSCULAR HGB CONC 30 g/dL (32-36); MEAN CORPUSCULAR VOLUME 93 fL (80-99); MEAN PLATELET VOLUME 12.4 fL (9.0-12.2); MONOCYTES # (AUTO) 1.4 10^3/uL (0.0-1.0); MONOCYTES % (AUTO) 17 % (0-12); NEUTROPHILS # (AUTO) 6.5 10^3/uL (1.8-7.8); NEUTROPHILS % (AUTO) 76 % (42-75); PLATELET COUNT 152 10^3/uL (130-400); WHITE BLOOD COUNT 8.5 10^3/uL (4.3-11.0)
[2022-11-23 05:20] LABS: ALBUMIN 2.3 GM/DL (3.2-4.5); BILIRUBIN,TOTAL 0.3 MG/DL (0.1-1.0); CALCIUM 8.4 MG/DL (8.5-10.1); MAGNESIUM 1.4 MG/DL (1.6-2.4); PHOSPHORUS 1.7 MG/DL (2.3-4.7); POTASSIUM 3.8 MMOL/L (3.6-5.0); TOTAL PROTEIN 4.8 GM/DL (6.4-8.2)
[2022-11-23] MEDS: MEROPENEM 500 MG in NS (IVPB) 100 ML IV SCH ×3 (05:24→23:22)
[2022-11-23] MEDS: KCL 20 MEQ TAB (K-DUR) PO SCH (06:10)
[2022-11-23] MEDS: MAGNESIUM 1 GM/100 ML IVPB 100 ML IV SCH ×5 (06:10→09:16)
[2022-11-23] MEDS: POTASSIUM CL 10MEQ/50ML IVPB 50 ML IV SCH (06:10)
[2022-11-23] MEDS ORDERED: POTASSIUM PHOSPHATE INJ 30 MM in NS (IVPB) 250 ML IV ONE (07:00)
[2022-11-23 07:30] VITALS: BP 100/71
[2022-11-23] MEDS: RT-BUDESONIDE NEBS 0.5 MG/2ML (PULMICORT) AMP INH SCH ×2 (07:30→22:13)
[2022-11-23] MEDS ORDERED: fentaNYL DRIP PRE-MIX 250 ML IV ONE (08:01)
[2022-11-23] MEDS: fentaNYL DRIP PRE-MIX 250 ML IV SCH ×3 (08:04→16:18)
[2022-11-23] MEDS: PANTOPRAZOLE 40 MG (PROTONIX) VIAL IV SCH (08:05)
[2022-11-23] MEDS: DOCUSATE SODIUM 100 MG (COLACE) CAP PO SCH ×2 (08:13→20:12)
[2022-11-23] MEDS: SENNOSIDES 8.6 MG (SENOKOT) TAB PO SCH ×2 (08:13→20:13)
--- NOTE | 2022-11-23 09:18 | Tele-ICU Progress Note ---
Subjective Date Seen by a Provider: Nov 23, 2022 Time Seen by a Provider: 09:17 Subjective/Events-last exam (Tele-ICU Physician , Progress Note ) Service provided via interactive audio and video telecommunications E-CARE system to a patient admitted to ICU bed in [facility]. Patient is seen today due to persistent need of ICU care Available chart/ vitals / labs / Images reviewed Video assessment done using teleICU camera, rest of exam as per RN Discussed with RN Events overnight : Afebrile hemodynamically stable Respiratory - 40 % I/O = pos Drips: 125 NS Pressors- no VENT SETTINGS and ABG reviewed NOT CANDIDATE for SBTreviewed possible contraindications including Card iovascular Stability /Sedation Score / FI02/PEEP / ABG / CXR/ secretions Sedation, discussed with RN, RASS 1 on fentanyl 125 prop 30 - AAO Hospital course: 11/22 - ARF/PNA , failed BIPAP in ER , intubated , AC 20 300 ml 40 % peep 5 11/23- AC 20 420 ml 40 % peep 5 , RASS 1 on fentanyl 125 prop 30 - AAO A/P Acute resp failure ( hypoxix and hypercarbic ) with PNA and AECOPD - intubated 11/22 ( failed BIPAP ) -AC 20 420 ml 40 % peep 5 - copious secretions - decrease RR , consider SBT tomorrow PNA , LEFT - multiple allergies - started on vanco and merrem - to cont and await cx -copious secretions . sputum cx + PROBABLE STREP PNEUMONIAE Sepsis - decrease IVF RAFIQ ( cr 1.4 on admission ) - resolved AECOPD - nebs - not on steroids IV with PAP 12 COPD - not on chronic prednison - no pulm HTN on ECHO 2019 - 2 L [employer] home malnutrition - start pulmicare 11/22 - goal 40 , or as dietion calculation Chronic morphine use - ? pain syndrome - on fentanyl gtt now Lines : periph , (Central Line Necessity Reviewed) Grubbs: + OG: Nutrition: start pulmicare 11/22 Analgesia: Anxiety/ delirium VTE Prophylaxis: britt Stress Ulcer Prophylaxis: ppi Glycemic Control: Plans in collaboration with bedside consultants and IM MDs. Discussed with RN to reach out if any questions or concerns A total of31 minutes of critical care time was devoted to this patient today, required to treat and/or prevent further deterioration of critical care c ondition ( as above ) . I am remotely monitoring this patient from another state. I am unable to do the bedside exam, and history/physical and pertinent information is taken from other notes in the computer and bedside staff. . Sepsis Event Evaluation Height, Weight, BMI Height: 5'1.00" Weight: 82lbs. 0.0oz. 37.355399cp; 13.41 BMI Method:Stated Focused Exam Lactate Level 11/22/22 12:40: Lactic Acid Level 3.18*H 11/22/22 15:14: Lactic Acid Level 2.08*H 11/22/22 17:15: Lactic Acid Level 0.91 Exam Exam Patient acknowledged, consented, and participated in this virtual visit which w as conducted using real time audio/video Vital Signs Date Time Temp Pulse Resp B/P (MAP) Pulse Ox O2 Delivery O2 Flow Rate FiO2 11/23/22 08:04 88 88/59 11/23/22 08:00 89 20 116/79 (91) 93 Mechanical Ventilator 40.00 11/23/22 07:34 36.8 11/23/22 07:30 92 20 91 40 11/23/22 07:00 90 11/23/22 07:00 89 114/72 (85) 94 Mechanical Ventilator 40.00 11/23/22 06:00 99 20 134/94 (107) 95 Mechanical Ventilator 40.00 11/23/22 05:00 91 19 93/61 (72) 94 Mechanical Ventilator 40.00 11/23/22 04:15 95/72 11/23/22 04:00 40 11/23/22 04:00 92 Mechanical Ventilator 40 11/23/22 04:00 97 19 98/65 (76) 91 Mechanical Ventilator 40.00 11/23/22 03:00 98 20 94/57 (69) 93 Mechanical Ventilator 40.00 11/23/22 02:16 96 20 96 40 11/23/22 02:00 91 20 94/58 (70) 94 Mechanical Ventilator 40.00 11/23/22 01:00 91 11/23/22 01:00 92 20 89/57 (68) 93 Mechanical Ventilator 40.00 11/23/22 00:39 93/56 11/23/22 00:00 40 11/23/22 00:00 93 20 93/58 (70) 94 Mechanical Ventilator 40.00 11/22/22 23:59 95 Mechanical Ventilator 40 11/22/22 23:29 37.0 11/22/22 23:00 95 20 83/56 (65) 92 Mechanical Ventilator 40.00 11/22/22 22:51 95 85/56 11/22/22 22:00 89 20 88/54 (65) 92 Mechanical Ventilator 40.00 11/22/22 21:53 89 20 93 40 11/22/22 21:00 89 19 89/64 (72) 92 Mechanical Ventilator 40.00 11/22/22 20:37 90 96/65 11/22/22 20:00 89 20 89/65 (73) 90 Mechanical Ventilator 40.00 11/22/22 20:00 92 Mechanical Ventilator 40 11/22/22 20:00 40 11/22/22 19:06 36.8 11/22/22 19:00 89 19 87/63 (71) 92 Mechanical Ventilator 40.00 11/22/22 19:00 87 11/22/22 18:51 88 105/77 11/22/22 18:48 88 105/77 11/22/22 18:37 89 20 93 40 11/22/22 18:00 76 20 99/79 (86) 99 Mechanical Ventilator 40.00 11/22/22 17:00 79 20 89/68 (75) 99 Mechanical Ventilator 40.00 11/22/22 16:37 88/74 11/22/22 16:10 90 20 70/55 (60) 92 Mechanical Ventilator 40.00 11/22/22 16:00 89 19 86/45 (59) 92 Mechanical Ventilator 40.00 11/22/22 15:50 Mechanical Ventilator 40 11/22/22 15:40 92 20 84/67 (73) 92 Mechanical Ventilator 40.00 11/22/22 15:33 36.7 98 100 60 11/22/22 15:32 36.6 11/22/22 15:27 40 11/22/22 15:20 101 20 103/78 (86) 98 Mechanical Ventilator 40.00 11/22/22 15:10 105 20 100 Mechanical Ventilator 40.00 11/22/22 15:09 105 20 100 60 11/22/22 15:05 113 11/22/22 15:00 105 20 128/96 (107) 100 Mechanical Ventilator 60.00 11/22/22 15:00 36.7 98 16 118/90 100 Mechanical Ventilator 11/22/22 14:55 Mechanical Ventilator 60.00 11/22/22 13:59 96 68/54 11/22/22 13:47 97 20 100 100 11/22/22 12:24 112 16 89 100.00 11/22/22 12:17 Nasal Cannula 2.00 11/22/22 12:08 36.7 111 20 89 OxyMask I & O 11/23/22 07:00 Intake Total 3820 ml Output Total 475 ml Balance 3345 ml Height & Weight Height: 5'1.00" Weight: 82lbs. 0.0oz. 37.196656ay; 13.41 BMI Method:Stated General Appearance: No Apparent Distress, Chronically ill, Thin HEENT: PERRL/EOMI, Other (ET tube in place) Respiratory: Lungs Clear, No Respiratory Distress Cardiovascular: Regular Rate, Rhythm, No Murmur Gastrointestinal: normal bowel sounds, soft, other (Patient has a large periumbilical hernia. There are some tenderness superior to this which she states is chronic.) Extremity: No Pedal Edema, Other (left BKA) Neurologic/Psychiatric: Alert, Other (sedated) Skin: Normal Color, Warm/Dry Results Lab Laboratory Tests 11/22/22 12:00 11/23/22 04:08 Assessment/Plan Assessment/Plan 1 EAGLE GANNON MD Nov 23, 2022 09:18
[2022-11-23 11:01] VITALS: BP 84/58
[2022-11-23] MEDS: PROPOFOL DRIP (ICU) 100 ML IV SCH ×2 (11:58→21:36)
[2022-11-23] MEDS ORDERED: VANCOMYCIN 500 MG/NS 100 ML IV SCH ×2 (13:00)
--- NOTE | 2022-11-23 14:29 | Progress Note - Hospitalist ---
Subjective HPI/CC On Admission Date Seen by Provider: Nov 23, 2022 Time Seen by Provider: 09:25 Cara Pruett is a 52 year old female with PMH COPD on home oxygen 3 L, anxiety, depression, alcohol abuse, tobacco abuse, who presented with shortness of breath. She is intubated and sedated. All history is obtained from the ER physician. Her son reported that she has been more short of breath the past few days. She was found by EMS with oxygen saturations in the 60s on her 3 L. She was placed on 15 L nonrebreather. She remained mildly hypoxic. She had an ABG that showed acute hypercapnia. She was placed on BIPAP. Her follow up ABG was worse and she was intubated. She is now admitted to the ICU. Subjective/Events-last exam She is awake. She remains intubaed. She denies pain. She is following commands. She appears comfortable. Focused Exam Lactate Level 11/22/22 12:40: Lactic Acid Level 3.18*H 11/22/22 15:14: Lactic Acid Level 2.08*H 11/22/22 17:15: Lactic Acid Level 0.91 Objective Exam Vital Signs Vital Signs Date Time Temp Pulse Resp B/P (MAP) Pulse Ox O2 Delivery O2 Flow Rate FiO2 11/23/22 13:00 86 16 88/59 (67) 93 Mechanical Ventilator 40.00 11/23/22 12:00 40 11/23/22 12:00 37.5 Capillary Refill : General Appearance: No Apparent Distress, Chronically ill, Cachetic Respiratory: No Respiratory Distress, Decreased Breath Sounds Cardiovascular: Regular Rate, Rhythm, No Murmur Gastrointestinal: Normal Bowel Sounds, Soft, Hernia Extremity: Normal Inspection, No Pedal Edema, Other (left BKA) Neurologic/Psychiatric: Alert, No Motor/Sensory Deficits Skin: Normal Color, Warm/Dry Results/Procedures Lab Laboratory Tests 11/23/22 04:08 Patient resulted labs reviewed. Imaging: Reviewed Imaging Report Assessment/Plan Assessment and Plan Assess & Plan/Chief Complaint Acute on chronic respiratory failure with hypoxia and hypercapnia Severe sepsis due to pneumonia Endotracheally intubated COPD Cachexia s/p intubation 11/22 due to hypercapnic respiratory failure TeleICU following Sputum culture with likely Strep pneumo Blood cultures with gram positive cocci in pairs, possibly Strep pneumo Continue IV fluids Vanc and Merrem Started on tube feeds DVT prophylaxis: Lovenox Lactic acidosis, resolved Acute kidney injury, resolved Critical Care Critically Ill Patient Diagnosis/Problems Diagnosis/Problems (1) Acute on chronic respiratory failure with hypoxia and hypercapnia Status: Acute (2) Severe sepsis Status: Acute (3) Pneumonia Status: Acute (4) RAFIQ (acute kidney injury) Status: Acute (5) Lactic acidosis Status: Acute (6) 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
[2022-11-23 14:32] VITALS: BP 106/71
[2022-11-23] MEDS ORDERED: ALBU18HF2 INH (14:56)
[2022-11-23] MEDS ORDERED: PANT40TA52 PO (14:56)
[2022-11-23] MEDS ORDERED: FLUT12AE4 INH (14:56)
[2022-11-23] MEDS ORDERED: GABA800T10 PO (14:56)
[2022-11-23] MEDS ORDERED: FLUT1BLS3 INH (14:56)
[2022-11-23] MEDS ORDERED: MORP-69 PO (14:56)
[2022-11-23] MEDS: ENOXAPARIN INJECTION 30 MG/0.3 ML SYR SC SCH (16:18)
[2022-11-23 18:26] VITALS: BP 95/64
[2022-11-23 22:13] VITALS: BP 89/57
[2022-11-24] MEDS: fentaNYL DRIP PRE-MIX 250 ML IV SCH ×3 (00:29→17:13)
[2022-11-24 02:20] VITALS: BP 112/72
[2022-11-24] MEDS: RT-ALBUTEROL/IPRATROPIUM 3 ML (DUONEB) VIAL INH SCH ×6 (02:20→22:07)
[2022-11-24 04:40] LABS: BASOPHILS % (AUTO) 0 % (0-10); EOSINOPHILS # (AUTO) 0.2 10^3/uL (0.0-0.3); EOSINOPHILS % (AUTO) 3 % (0-10); HEMATOCRIT 38 % (35-52); HEMOGLOBIN 11.1 g/dL (11.5-16.0); LYMPHOCYTES # (AUTO) 0.3 10^3/uL (1.0-4.0); LYMPHOCYTES % (AUTO) 6 % (12-44); MEAN CORPUSCULAR HEMOGLOBIN 28 pg (25-34); MEAN CORPUSCULAR HGB CONC 29 g/dL (32-36); MEAN CORPUSCULAR VOLUME 94 fL (80-99); MEAN PLATELET VOLUME 12.4 fL (9.0-12.2); MONOCYTES % (AUTO) 17 % (0-12); NEUTROPHILS # (AUTO) 4.1 10^3/uL (1.8-7.8); NEUTROPHILS % (AUTO) 72 % (42-75); PLATELET COUNT 144 10^3/uL (130-400); WHITE BLOOD COUNT 5.7 10^3/uL (4.3-11.0)
[2022-11-24 04:58] LABS: ALBUMIN 2.3 GM/DL (3.2-4.5); BILIRUBIN,TOTAL 0.2 MG/DL (0.1-1.0); CALCIUM 8.5 MG/DL (8.5-10.1); CREATININE SERUM 0.79 MG/DL (0.60-1.30); MAGNESIUM 2.5 MG/DL (1.6-2.4); PHOSPHORUS 2.3 MG/DL (2.3-4.7); POTASSIUM 3.8 MMOL/L (3.6-5.0); TOTAL PROTEIN 4.9 GM/DL (6.4-8.2)
[2022-11-24] MEDS: MAGNESIUM 1 GM/100 ML IVPB 100 ML IV SCH (05:22)
[2022-11-24] MEDS: POTASSIUM CL 10MEQ/50ML IVPB 50 ML IV SCH ×3 (05:22→06:44)
[2022-11-24] MEDS: KCL 20 MEQ TAB (K-DUR) PO SCH (05:22)
[2022-11-24] MEDS: MEROPENEM 500 MG in NS (IVPB) 100 ML IV SCH (05:32)
[2022-11-24 05:48] LABS: ABG OXYGEN SATURATION 91 % (94-100); ABG PCO2 49 MMHG (35-45); ABG PO2 66 MMHG (79-93); ABG TCO2 24.1 MMOL/L (21.0-31.0)
[2022-11-24 05:50] LABS: ALLENS TEST YES-POS; INSPIRED O2 40%; PATIENT TEMP 37.1; VENTILATOR YES
[2022-11-24 05:51] LABS: ABG PH 7.29 (7.37-7.43)
[2022-11-24] MEDS: RT-BUDESONIDE NEBS 0.5 MG/2ML (PULMICORT) AMP INH SCH ×2 (06:06→22:07)
[2022-11-24 06:07] VITALS: BP 116/77
--- NOTE | 2022-11-24 06:08 | Progress Note ---
Standard Progress Note Progress Notes/Assess & Plan Date Seen by a Provider: Nov 24, 2022 Time Seen by a Provider: 06:06 Progress/Assessment & Plan called for ABG 7.29/49/66, yesterday pCO2 was 41, on AC 16, Vt 420, FiO2 40% will raise vent rate to 20 KRISS NEUMANN MD Nov 24, 2022 06:08
[2022-11-24] MEDS: PROPOFOL DRIP (ICU) 100 ML IV SCH ×2 (08:46→19:25)
[2022-11-24] MEDS: DOCUSATE SODIUM 100 MG (COLACE) CAP PO SCH ×2 (08:47→21:00)
[2022-11-24] MEDS: SENNOSIDES 8.6 MG (SENOKOT) TAB PO SCH ×2 (08:47→21:00)
[2022-11-24] MEDS: PANTOPRAZOLE 40 MG (PROTONIX) VIAL IV SCH (08:47)
--- NOTE | 2022-11-24 08:49 | Tele-ICU Progress Note ---
Subjective Date Seen by a Provider: Nov 24, 2022 Time Seen by a Provider: 08:48 Subjective/Events-last exam (Tele-ICU Physician , Progress Note ) Service provided via interactive audio and video telecommunications E-CARE system to a patient admitted to ICU bed in [facility]. Patient is seen today due to persistent need of ICU care Available chart/ vitals / labs / Images reviewed Video assessment done using teleICU camera, rest of exam as per RN Discussed with RN Events overnight : Afebrile hemodynamically stable Respiratory - 40 % I/O = pos Drips: 73 ns Pressors- no VENT SETTINGS and ABG reviewed CANDIDATE for SBTreviewed possible contraindications including Cardiovascu lar Stability /Sedation Score / FI02/PEEP / ABG / CXR/ secretions Sedation, discussed with RN, RASS 1 on fentanyl 150 prop 45 - AAO Hospital course: 11/22 - ARF/PNA , failed BIPAP in ER , intubated , AC 20 300 ml 40 % peep 5 11/23- AC 20 420 ml 40 % peep 5 , RASS 1 on fentanyl 125 prop 30 - AAO- rr changed to 16 11/23- AC 16 420 ml 40 % peep 5 , RASS 1 on fentanyl 150 prop 45 - AAO, cxr better A/P Acute resp failure ( hypoxix and hypercarbic ) with PNA and AECOPD - intubated 11/22 ( failed BIPAP ) -AC 20 420 ml 40 % peep 5 - copious secretions - improved some - CANDIDATE for SBT today PNA , LEFT with bacteremia 11/22 (1/2 with) + STREP PNEUMONIAE, sputum cx + STREP PNEUMONIAE - multiple allergies - started on vanco and merrem - cxr better Sepsis - cont IVF , not on pressors RAFIQ ( cr 1.4 on admission ) - resolved AECOPD - nebs - not on steroids IV with PAP 20 COPD - not on chronic prednison - no pulm HTN on ECHO 2019 - 2 L NC [employer] home malnutrition - start ( glycerna - shortage of pulmicare) 11/22 - goal 40 Chronic morphine use - pain syndrome with left AKA pain and abd pain with hernia - on fentanyl gtt now Lines : periph , (Central Line Necessity Reviewed) Grubbs: + OG: Nutrition: start pulmicare 11/22 Analgesia: Anxiety/ delirium VTE Prophylaxis: britt Stress Ulcer Prophylaxis: ppi Glycemic Control: Plans in collaboration with bedside consultants and IM MDs. Discussed with RN to reach out if any questions or concerns A total of31 minutes of critical care time was devoted to this patient today, required to treat and/or prevent further deterioration of critical care condition ( as above ) . I am remotely monitoring this patient from another state. I am unable to do the bedside exam, and history/physical and pertinent information is taken from other notes in the computer and bedside staff. . Sepsis Event Evaluation Height, Weight, BMI Height: 5'1.00" Weight: 82lbs. 0.0oz. 37.550618ca; 13.49 BMI Method:Stated Focused Exam Lactate Level 11/22/22 12:40: Lactic Acid Level 3.18*H 11/22/22 15:14: Lactic Acid Level 2.08*H 11/22/22 17:15: Lactic Acid Level 0.91 Exam Exam Patient acknowledged, consented, and participated in this virtual visit which was conducted using real time audio/video Vital Signs Date Time Temp Pulse Resp B/P (MAP) Pulse Ox O2 Delivery O2 Flow Rate FiO2 11/24/22 08:00 36.8 11/24/22 08:00 86 20 108/74 (85) 96 Mechanical Ventilator 40.00 11/24/22 07:00 83 11/24/22 07:00 84 20 101/68 (79) 95 Mechanical Ventilator 40.00 11/24/22 06:07 86 20 92 40 11/24/22 06:00 87 17 116/77 (90) 96 Mechanical Ventilator 40.00 11/24/22 05:00 89 16 117/75 (89) 96 Mechanical Ventilator 40.00 11/24/22 04:29 90 112/72 11/24/22 04:00 87 16 107/72 (84) 96 Mechanical Ventilator 40.00 11/24/22 04:00 92 Mechanical Ventilator 40 11/24/22 04:00 40 11/24/22 03:00 86 15 97/65 (76) 94 Mechanical Ventilator 40.00 11/24/22 02:20 90 16 93 40 11/24/22 02:00 92 16 112/72 (85) 94 Mechanical Ventilator 40.00 11/24/22 01:36 90 112/72 11/24/22 01:00 90 11/24/22 01:00 90 15 113/77 (89) 95 Mechanical Ventilator 40.00 11/24/22 00:29 84 85/53 11/24/22 00:00 40 11/24/22 00:00 84 16 105/70 (82) 95 Mechanical Ventilator 40.00 11/23/22 23:59 92 Mechanical Ventilator 40 11/23/22 23:22 84 85/53 11/23/22 23:00 85 16 89/56 (67) 93 Mechanical Ventilator 40.00 11/23/22 22:13 85 16 90 40 11/23/22 22:00 85 16 89/57 (68) 90 Mechanical Ventilator 40.00 11/23/22 21:36 92 95/64 11/23/22 21:00 89 16 102/67 (79) 93 Mechanical Ventilator 40.00 11/23/22 20:18 92 95/64 11/23/22 20:00 93 Mechanical Ventilator 40 11/23/22 20:00 40 11/23/22 20:00 93 15 101/65 (77) 94 Mechanical Ventilator 40.00 11/23/22 19:37 Mechanical Ventilator 40.00 11/23/22 19:30 37.1 11/23/22 19:00 92 16 99/65 (76) 93 Mechanical Ventilator 40.00 11/23/22 19:00 92 11/23/22 18:26 87 16 91 40 11/23/22 18:00 89 15 98/67 (74) 91 Mechanical Ventilator 40.00 11/23/22 17:00 84 16 96/64 (75) 94 Mechanical Ventilator 40.00 11/23/22 16:00 89 16 91/60 (68) 93 Mechanical Ventilator 40.00 11/23/22 16:00 40 11/23/22 16:00 90 Mechanical Ventilator 40 11/23/22 16:00 37.5 11/23/22 15:00 92 16 94/69 (76) 92 Mechanical Ventilator 40.00 11/23/22 14:32 92 16 94 40 11/23/22 14:00 94 15 102/69 (79) 97 Mechanical Ventilator 40.00 11/23/22 13:00 86 16 88/59 (67) 93 Mechanical Ventilator 40.00 11/23/22 12:53 86 11/23/22 12:00 85 15 87/57 (68) 93 Mechanical Ventilator 40.00 11/23/22 12:00 40 11/23/22 12:00 90 Mechanical Ventilator 40 11/23/22 12:00 37.5 11/23/22 11:01 84 16 94 40 11/23/22 11:00 85 15 84/58 (65) 94 Mechanical Ventilator 40.00 11/23/22 10:00 89 16 94/60 (71) 95 Mechanical Ventilator 40.00 11/23/22 09:00 72 23 103/65 (78) 92 Mechanical Ventilator 40.00 I & O 11/24/22 07:00 Intake Total 4980 ml Output Total 725 ml Balance 4255 ml Height & Weight Height: 5'1.00" Weight: 82lbs. 0.0oz. 37.472208ne; 13.49 BMI Method:Stated General Appearance: No Apparent Distress, Chronically ill, Cachetic HEENT: PERRL/EOMI, Other (ET tube in place) Respiratory: No Respiratory Distress, Decreased Breath Sounds Cardiovascular: Regular Rate, Rhythm, No Murmur Gastrointestinal: normal bowel sounds, soft, other (Patient has a large periumbilical hernia. There are some tenderness superior to this which she states is chronic.) Extremity: Normal Inspection, No Pedal Edema, Other (left BKA) Neurologic/Psychiatric: Alert, No Motor/Sensory Deficits Skin: Normal Color, Warm/Dry Results Lab Laboratory Tests 11/22/22 12:00 11/23/22 04:08 11/24/22 03:58 Assessment/Plan Assessment/Plan 1 EAGLE GANNON MD Nov 24, 2022 08:48
--- NOTE | 2022-11-24 09:00 | Diagnostic Imaging Report ---
INDICATION: Intubation. TECHNIQUE: Single view chest at 4:42 AM. CORRELATION STUDY: 11/22/2022. FINDINGS: Endotracheal tube projects over the lower aspect of the trachea approximately 2 cm above the tyesha. Gastric tube tip in the left upper quadrant, likely in the region of the body of the stomach, advanced from prior. Heart size and mediastinum remain prominent. There is continued pulmonary vascular congestion and edema which overall are stable to perhaps slightly increased. Scattered mixed alveolar and interstitial opacities within both lung read, left greater than right, persist. Overall appears improved on the left and perhaps increased at the right lung base. Small effusions. IMPRESSION: 1. Support lines and tubes are again demonstrated with slight interval advancement of the nasogastric tube tip now projecting over the body of the stomach. 2. There appears to be increasing overall severity of edema and congestion. Scattered pulmonary opacities persist, slightly improved on the left and perhaps increased at the right lung base. Dictated by: Dictated on workstation # [id number]
[2022-11-24 10:34] VITALS: BP 113/75
[2022-11-24] MEDS: NS IV 1000 ML 1,000 ML IV SCH (11:01)
[2022-11-24] MEDS: cefTRIAXone PRE-MIX 50 ML IV SCH (11:10)
--- NOTE | 2022-11-24 12:00 | Progress Note - Hospitalist ---
Subjective HPI/CC On Admission Date Seen by Provider: Nov 24, 2022 Time Seen by Provider: 10:45 Cara Pruett is a 52 year old female with PMH COPD on home oxygen 3 L, anxiety, depression, alcohol abuse, tobacco abuse, who presented with shortness of breath. She is intubated and sedated. All history is obtained from the ER physician. Her son reported that she has been more short of breath the past few days. She was found by EMS with oxygen saturations in the 60s on her 3 L. She was placed on 15 L nonrebreather. She remained mildly hypoxic. She had an ABG that showed acute hypercapnia. She was placed on BIPAP. Her follow up ABG was worse and she was intubated. She is now admitted to the ICU. Subjective/Events-last exam She wants the tube taken out. She denies pain. She has no other complaints. Focused Exam Lactate Level 11/22/22 12:40: Lactic Acid Level 3.18*H 11/22/22 15:14: Lactic Acid Level 2.08*H 11/22/22 17:15: Lactic Acid Level 0.91 Objective Exam Vital Signs Vital Signs Date Time Temp Pulse Resp B/P (MAP) Pulse Ox O2 Delivery O2 Flow Rate FiO2 11/24/22 11:00 96 11 165/130 (142) 94 Mechanical Ventilator 40.00 11/24/22 10:34 40 11/24/22 08:00 36.8 Capillary Refill : General Appearance: No Apparent Distress, Chronically ill, Thin Respiratory: Lungs Clear, No Respiratory Distress Cardiovascular: Regular Rate, Rhythm, No Murmur Gastrointestinal: Normal Bowel Sounds, Soft, Hernia Extremity: No Pedal Edema, Other (left BKA) Neurologic/Psychiatric: Alert, Normal Mood/Affect Skin: Normal Color, Warm/Dry Results/Procedures Lab Laboratory Tests 11/24/22 03:58 Patient resulted labs reviewed. Imaging: Reviewed Imaging Report Assessment/Plan Assessment and Plan Assess & Plan/Chief Complaint Acute on chronic respiratory failure with hypoxia and hypercapnia Pneumonia due to Strep pneumoniae Strep pneumoniae bacteremia Endotracheally intubated COPD Cachexia s/p intubation 11/22 due to hypercapnic respiratory failure TeleICU following Sputum culture with Strep pneumo Blood cultures with Strep pneumo Continue gentle IV fluids Vanc stopped Discontinue Merrem Previously tolerated Cefepime without issue Begin Rocephin SBT today, hopeful for extubation DVT prophylaxis: Lovenox Severe sepsis, resolved Lactic acidosis, resolved Acute kidney injury, resolved Critical Care Critically Ill Patient Diagnosis/Problems Diagnosis/Problems (1) Acute on chronic respiratory failure with hypoxia and hypercapnia Status: Acute (2) Severe sepsis Status: Resolved Resolution Date/Time: 11/24/22 @ 12:01 (3) Pneumonia Status: Acute Qualifiers: Pneumonia type: due to Pneumococcus Laterality: bilateral Lung location: unspecified part of lung Qualified Codes: J13 - Pneumonia due to Streptococcus pneumoniae (4) Bacteremia due to Streptococcus pneumoniae Status: Acute (5) RAFIQ (acute kidney injury) Status: Resolved Resolution Date/Time: 11/24/22 @ 12:01 (6) Lactic acidosis Status: Resolved Resolution Date/Time: 11/24/22 @ 12:01 (7) 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
[2022-11-24 12:05] LABS: ABG BASE EXCESS -3.8 MMOL/L (-2.5-2.5); ABG OXYGEN SATURATION 91 % (94-100); ABG PCO2 55 MMHG (35-45); ABG PO2 64 MMHG (79-93); ABG TCO2 24.4 MMOL/L (21.0-31.0)
[2022-11-24 12:06] LABS: ABG PH 7.24 (7.37-7.43); ALLENS TEST YES-POS; INSPIRED O2 40%; PATIENT TEMP 36.2; VENTILATOR YES
--- NOTE | 2022-11-24 12:13 | Tele-ICU Progress Note ---
Progress Note Spontaneous Breathing Trial done - rr 17-23 TV 430 on average on fent 150 , propofol 10 Duration 45 min, monitored via camera Terminated with increasing WOB and resp acidosis on ABG ( additional CCT 10 min ) Focused Exam Lactate Level 11/22/22 12:40: Lactic Acid Level 3.18*H 11/22/22 15:14: Lactic Acid Level 2.08*H 11/22/22 17:15: Lactic Acid Level 0.91 Height, Weight, BMI Height: 5'1.00" Weight: 82lbs. 0.0oz. 37.264590ud; 13.49 BMI Method:Stated EAGLE GANNON MD Nov 24, 2022 12:13
[2022-11-24 14:48] VITALS: BP 88/63
[2022-11-24] MEDS: ENOXAPARIN INJECTION 30 MG/0.3 ML SYR SC SCH (17:13)
[2022-11-24 18:27] VITALS: BP 110/72
[2022-11-24 22:07] VITALS: BP 104/72
[2022-11-25] MEDS: fentaNYL DRIP PRE-MIX 250 ML IV SCH ×4 (00:34→20:10)
[2022-11-25 02:29] VITALS: BP 101/73
[2022-11-25] MEDS: RT-ALBUTEROL/IPRATROPIUM 3 ML (DUONEB) VIAL INH SCH ×6 (02:29→21:32)
[2022-11-25 03:33] LABS: BASOPHILS % (AUTO) 1 % (0-10); EOSINOPHILS # (AUTO) 0.8 10^3/uL (0.0-0.3); EOSINOPHILS % (AUTO) 14 % (0-10); HEMATOCRIT 36 % (35-52); HEMOGLOBIN 10.9 g/dL (11.5-16.0); LYMPHOCYTES # (AUTO) 0.8 10^3/uL (1.0-4.0); LYMPHOCYTES % (AUTO) 14 % (12-44); MEAN CORPUSCULAR HEMOGLOBIN 28 pg (25-34); MEAN CORPUSCULAR HGB CONC 30 g/dL (32-36); MEAN CORPUSCULAR VOLUME 93 fL (80-99); MEAN PLATELET VOLUME 12.2 fL (9.0-12.2); MONOCYTES # (AUTO) 1.1 10^3/uL (0.0-1.0); MONOCYTES % (AUTO) 19 % (0-12); NEUTROPHILS # (AUTO) 2.7 10^3/uL (1.8-7.8); NEUTROPHILS % (AUTO) 49 % (42-75); PLATELET COUNT 143 10^3/uL (130-400); WHITE BLOOD COUNT 5.6 10^3/uL (4.3-11.0)
[2022-11-25 03:49] LABS: ALBUMIN 2.3 GM/DL (3.2-4.5); BILIRUBIN,TOTAL 0.1 MG/DL (0.1-1.0); CALCIUM 8.7 MG/DL (8.5-10.1); CREATININE SERUM 0.67 MG/DL (0.60-1.30); MAGNESIUM 2.1 MG/DL (1.6-2.4); PHOSPHORUS 2.1 MG/DL (2.3-4.7); POTASSIUM 4.2 MMOL/L (3.6-5.0); TOTAL PROTEIN 4.7 GM/DL (6.4-8.2)
[2022-11-25] MEDS: PROPOFOL DRIP (ICU) 100 ML IV SCH ×3 (04:54→21:12)
[2022-11-25] MEDS: POTASSIUM CL 10MEQ/50ML IVPB 50 ML IV SCH (06:00)
[2022-11-25] MEDS: MAGNESIUM 1 GM/100 ML IVPB 100 ML IV SCH (06:00)
[2022-11-25] MEDS: KCL 20 MEQ TAB (K-DUR) PO SCH (06:00)
[2022-11-25 06:21] LABS: ABG BASE EXCESS -0.5 MMOL/L (-2.5-2.5); ABG OXYGEN SATURATION 89 % (94-100); ABG PCO2 46 MMHG (35-45); ABG PH 7.35 (7.37-7.43); ABG PO2 58 MMHG (79-93); ABG TCO2 25.8 MMOL/L (21.0-31.0); ALLENS TEST YES-POS; INSPIRED O2 40%
[2022-11-25 06:22] LABS: PATIENT TEMP 36.8; VENTILATOR YES
[2022-11-25] MEDS: RT-BUDESONIDE NEBS 0.5 MG/2ML (PULMICORT) AMP INH SCH ×2 (06:38→21:32)
[2022-11-25 06:39] VITALS: BP 95/68
--- NOTE | 2022-11-25 08:36 | Tele-ICU Progress Note ---
Subjective Date Seen by a Provider: Nov 25, 2022 Time Seen by a Provider: 08:31 Subjective/Events-last exam Service provided via interactive audio and video telecommunOldelft Ultrasound E-CARE system to a patient admitted to ICU bed in [facility]. Patient is seen today due to persistent need of ICU care Available chart/ vitals / labs / Images reviewed Video assessment done using teleICU camera, rest of exam as per RN Discussed with RN Remains on vent for hypercarbic resp failure, now on AC 20, Vt 420, FiO2 40% PEEP 5, ABG today 7.35/46/58 Off meropenem On IV Propofol 55, IV Fentanyl 200, RASS +1 + oral secretions, ET tube secretions thick, ware colored, needs suctioned about every 2 hours Has COPD, on home oxygen Sepsis Event Evaluation Height, Weight, BMI Height: 5'1.00" Weight: 82lbs. 0.0oz. 37.987838jr; 13.91 BMI Method:Stated Focused Exam Lactate Level 11/22/22 12:40: Lactic Acid Level 3.18*H 11/22/22 15:14: Lactic Acid Level 2.08*H 11/22/22 17:15: Lactic Acid Level 0.91 Exam Exam Patient acknowledged, consented, and participated in this virtual visit which was conducted using real time audio/video Vital Signs Date Time Temp Pulse Resp B/P (MAP) Pulse Ox O2 Delivery O2 Flow Rate FiO2 11/25/22 07:43 36.5 11/25/22 07:36 93 Mechanical Ventilator 40 11/25/22 07:35 40 11/25/22 07:00 75 20 101/75 (85) 93 Mechanical Ventilator 40.00 11/25/22 07:00 72 11/25/22 06:39 70 20 91 40 11/25/22 06:00 72 19 105/70 (82) 94 Mechanical Ventilator 40.00 11/25/22 05:00 77 20 96/65 (75) 92 Mechanical Ventilator 40.00 11/25/22 04:54 78 113/73 11/25/22 04:00 40 11/25/22 04:00 71 19 117/77 (90) 93 Mechanical Ventilator 40.00 11/25/22 04:00 94 Mechanical Ventilator 40 11/25/22 03:00 68 19 110/71 (84) 94 Mechanical Ventilator 40.00 11/25/22 02:29 66 20 94 40 11/25/22 02:00 67 19 98/66 (77) 93 Mechanical Ventilator 40.00 11/25/22 01:08 73 11/25/22 01:00 75 20 98/68 (78) 93 Mechanical Ventilator 40.00 11/25/22 00:00 80 20 98/72 (81) 93 Mechanical Ventilator 40.00 11/25/22 00:00 40 11/24/22 23:59 94 Mechanical Ventilator 40 11/24/22 23:00 84 20 100/83 (89) 95 Mechanical Ventilator 40.00 11/24/22 22:07 71 20 95 40 11/24/22 22:00 71 19 104/72 (83) 96 Mechanical Ventilator 40.00 11/24/22 21:00 70 19 93/70 (78) 96 Mechanical Ventilator 40.00 11/24/22 20:00 94 Mechanical Ventilator 40 11/24/22 20:00 74 19 89/66 (74) 93 Mechanical Ventilator 40.00 11/24/22 20:00 40 11/24/22 19:23 73 11/24/22 19:00 76 20 97/67 (77) 84 Mechanical Ventilator 40.00 11/24/22 18:27 82 20 95 40 11/24/22 18:00 73 106 106/71 (83) 71 Mechanical Ventilator 40.00 11/24/22 17:00 75 115 115/72 (86) 72 Mechanical Ventilator 40.00 11/24/22 16:24 97 Mechanical Ventilator 40 11/24/22 16:21 40 11/24/22 16:00 74 198 123/82 (96) 98 Mechanical Ventilator 40.00 11/24/22 15:40 37.1 11/24/22 15:00 73 19 93/68 (76) 97 Mechanical Ventilator 40.00 11/24/22 14:48 75 20 97 40 11/24/22 14:00 79 20 97/66 (76) 93 Mechanical Ventilator 40.00 11/24/22 13:00 91 11/24/22 13:00 90 20 106/75 (85) 94 Mechanical Ventilator 40.00 11/24/22 12:00 40 11/24/22 12:00 93 Mechanical Ventilator 40 11/24/22 12:00 96 16 143/93 (110) 94 Mechanical Ventilator 40.00 11/24/22 11:55 36.7 11/24/22 11:00 96 11 165/130 (142) 94 Mechanical Ventilator 40.00 11/24/22 10:34 82 16 94 40 11/24/22 10:00 85 16 116/74 (88) 94 Mechanical Ventilator 40.00 11/24/22 09:00 96 17 129/80 (96) 96 Mechanical Ventilator 40.00 I & O 11/25/22 07:00 Intake Total 3950 ml Output Total 1275 ml Balance 2675 ml Height & Weight Height: 5'1.00" Weight: 82lbs. 0.0oz. 37.083281ss; 13.91 BMI Method:Stated General Appearance: No Apparent Distress, Chronically ill, Mild Distress, Thin HEENT: PERRL/EOMI, Other Respiratory: Lungs Clear, No Respiratory Distress, Rhonci Cardiovascular: Regular Rate, Rhythm, No Murmur Gastrointestinal: normal bowel sounds, non tender, soft, other (large umbilical hernia) Extremity: No Pedal Edema, Other (left BKA) Neurologic/Psychiatric: Alert, Normal Mood/Affect Skin: Normal Color, Warm/Dry Results Lab Laboratory Tests 11/24/22 03:58 11/25/22 03:23 Assessment/Plan Assessment/Plan Hypercapnic resp failure, ABG acceptable on current vent settings, will leave on AC 20 still needs sedation, Precedex dropped HR, now off pt has had opiod problems at home Critical Care: Ventilator Management Time spent with patient (mins): 30 KRISS NEUMANN MD Nov 25, 2022 08:36
[2022-11-25] MEDS: PANTOPRAZOLE 40 MG (PROTONIX) VIAL IV SCH (10:13)
[2022-11-25] MEDS: DOCUSATE SODIUM 100 MG (COLACE) CAP PO SCH ×2 (10:13→21:00)
[2022-11-25] MEDS: cefTRIAXone PRE-MIX 50 ML IV SCH (10:13)
[2022-11-25] MEDS: SENNOSIDES 8.6 MG (SENOKOT) TAB PO SCH ×2 (10:13→21:00)
[2022-11-25 10:22] VITALS: BP 114/83
--- NOTE | 2022-11-25 12:12 | Progress Note - Hospitalist ---
Subjective HPI/CC On Admission Date Seen by Provider: Nov 25, 2022 Time Seen by Provider: 10:45 Cara Pruett is a 52 year old female with PMH COPD on home oxygen 3 L, anxiety, depression, alcohol abuse, tobacco abuse, who presented with shortness of breath. She is intubated and sedated. All history is obtained from the ER physician. Her son reported that she has been more short of breath the past few days. She was found by EMS with oxygen saturations in the 60s on her 3 L. She was placed on 15 L nonrebreather. She remained mildly hypoxic. She had an ABG that showed acute hypercapnia. She was placed on BIPAP. Her follow up ABG was worse and she was intubated. She is now admitted to the ICU. Subjective/Events-last exam She remains intubated and sedated. She is easily aroused. She denies pain. She appears comfortable. Focused Exam Lactate Level 11/22/22 12:40: Lactic Acid Level 3.18*H 11/22/22 15:14: Lactic Acid Level 2.08*H 11/22/22 17:15: Lactic Acid Level 0.91 Objective Exam Vital Signs Vital Signs Date Time Temp Pulse Resp B/P (MAP) Pulse Ox O2 Delivery O2 Flow Rate FiO2 11/25/22 11:41 36.8 11/25/22 11:00 72 102/69 (79) 94 Mechanical Ventilator 40.00 11/25/22 10:22 20 40 Capillary Refill : General Appearance: No Apparent Distress, Chronically ill, Thin Respiratory: Lungs Clear, No Respiratory Distress Cardiovascular: Regular Rate, Rhythm, No Murmur Gastrointestinal: Normal Bowel Sounds, Soft, Hernia Extremity: No Pedal Edema, Other (left BKA) Neurologic/Psychiatric: Alert (sedated but easily awakens), Normal Mood/Affect Skin: Normal Color, Warm/Dry Results/Procedures Lab Laboratory Tests 11/25/22 03:23 Patient resulted labs reviewed. Imaging: Reviewed Imaging Report Assessment/Plan Assessment and Plan Assess & Plan/Chief Complaint Acute on chronic respiratory failure with hypoxia and hypercapnia Pneumonia due to Strep pneumoniae Strep pneumoniae bacteremia Endotracheally intubated COPD Cachexia s/p intubation 11/22 due to hypercapnic respiratory failure TeleICU following Sputum culture with Strep pneumo Blood cultures with Strep pneumo Continue gentle IV fluids Previously tolerated Cefepime without issue Continue Rocephin Failed SBT yesterday, plan for repeat SBT today, again hopeful for extubation DVT prophylaxis: Lovenox Severe sepsis, resolved Lactic acidosis, resolved Acute kidney injury, resolved Critical Care Critically Ill Patient Diagnosis/Problems Diagnosis/Problems (1) Acute on chronic respiratory failure with hypoxia and hypercapnia Status: Acute (2) Severe sepsis Status: Resolved Resolution Date/Time: 11/24/22 @ 12:01 (3) Pneumonia Status: Acute Qualifiers: Pneumonia type: due to Pneumococcus Laterality: bilateral Lung location: unspecified part of lung Qualified Codes: J13 - Pneumonia due to Streptococcus pneumoniae (4) Bacteremia due to Streptococcus pneumoniae Status: Acute (5) RAFIQ (acute kidney injury) Status: Resolved Resolution Date/Time: 11/24/22 @ 12:01 (6) Lactic acidosis Status: Resolved Resolution Date/Time: 11/24/22 @ 12:01 (7) 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
[2022-11-25 14:17] VITALS: BP 92/66
[2022-11-25] MEDS: ENOXAPARIN INJECTION 30 MG/0.3 ML SYR SC SCH (16:47)
[2022-11-25 18:33] VITALS: BP 83/60
[2022-11-25 21:32] VITALS: BP 100/69
[2022-11-26] MEDS: fentaNYL DRIP PRE-MIX 250 ML IV SCH ×4 (01:24→19:37)
[2022-11-26 02:07] VITALS: BP 95/71
[2022-11-26] MEDS: RT-ALBUTEROL/IPRATROPIUM 3 ML (DUONEB) VIAL INH SCH ×6 (02:07→22:30)
[2022-11-26 04:32] LABS: BASOPHILS # (AUTO) 0.1 10^3/uL (0.0-0.1); BASOPHILS % (AUTO) 1 % (0-10); EOSINOPHILS % (AUTO) 11 % (0-10); HEMATOCRIT 38 % (35-52); HEMOGLOBIN 11.3 g/dL (11.5-16.0); LYMPHOCYTES # (AUTO) 1.2 10^3/uL (1.0-4.0); LYMPHOCYTES % (AUTO) 15 % (12-44); MEAN CORPUSCULAR HEMOGLOBIN 27 pg (25-34); MEAN CORPUSCULAR HGB CONC 30 g/dL (32-36); MEAN CORPUSCULAR VOLUME 92 fL (80-99); MEAN PLATELET VOLUME 12.9 fL (9.0-12.2); MONOCYTES # (AUTO) 1.2 10^3/uL (0.0-1.0); MONOCYTES % (AUTO) 15 % (0-12); NEUTROPHILS # (AUTO) 4.7 10^3/uL (1.8-7.8); NEUTROPHILS % (AUTO) 56 % (42-75); PLATELET COUNT 167 10^3/uL (130-400); WHITE BLOOD COUNT 8.5 10^3/uL (4.3-11.0)
[2022-11-26 04:53] LABS: ALBUMIN 2.3 GM/DL (3.2-4.5); BILIRUBIN,TOTAL 0.2 MG/DL (0.1-1.0); CALCIUM 8.8 MG/DL (8.5-10.1); CREATININE SERUM 0.67 MG/DL (0.60-1.30); MAGNESIUM 1.9 MG/DL (1.6-2.4); PHOSPHORUS 2.8 MG/DL (2.3-4.7); POTASSIUM 4.4 MMOL/L (3.6-5.0); TOTAL PROTEIN 5.1 GM/DL (6.4-8.2)
[2022-11-26] MEDS: PROPOFOL DRIP (ICU) 100 ML IV SCH ×2 (05:06→15:10)
[2022-11-26 05:08] LABS: SMEAR SCAN COMMENT YES
[2022-11-26 05:15] LABS: ABG BASE EXCESS 2.5 MMOL/L (-2.5-2.5); ABG OXYGEN SATURATION 91 % (94-100); ABG PCO2 50 MMHG (35-45); ABG PH 7.36 (7.37-7.43); ABG PO2 69 MMHG (79-93); ALLENS TEST YES-POS; INSPIRED O2 45%; VENTILATOR YES
[2022-11-26 05:16] LABS: PATIENT TEMP 36.8
[2022-11-26] MEDS: KCL 20 MEQ TAB (K-DUR) PO SCH (05:42)
[2022-11-26] MEDS: POTASSIUM CL 10MEQ/50ML IVPB 50 ML IV SCH (05:42)
[2022-11-26] MEDS: MAGNESIUM 1 GM/100 ML IVPB 100 ML IV SCH ×3 (05:42→07:27)
[2022-11-26 07:41] VITALS: BP 121/82
[2022-11-26] MEDS: RT-BUDESONIDE NEBS 0.5 MG/2ML (PULMICORT) AMP INH SCH ×2 (07:41→22:30)
[2022-11-26] MEDS: PANTOPRAZOLE 40 MG (PROTONIX) VIAL IV SCH (08:55)
[2022-11-26] MEDS: DOCUSATE SODIUM 10 MG/ML 10 ML UDC (COLACE) PO SCH ×2 (08:55→20:49)
[2022-11-26] MEDS: SENNOSIDES 8.6 MG (SENOKOT) TAB PO SCH ×2 (08:55→20:49)
--- NOTE | 2022-11-26 09:00 | Progress Note - Hospitalist ---
Subjective HPI/CC On Admission Date Seen by Provider: Nov 26, 2022 Cara Pruett is a 52 year old female with PMH COPD on home oxygen 3 L, anxiety, depression, alcohol abuse, tobacco abuse, who presented with shortness of breath. She is intubated and sedated. All history is obtained from the ER physician. Her son reported that she has been more short of breath the past few days. She was found by EMS with oxygen saturations in the 60s on her 3 L. She wa s placed on 15 L nonrebreather. She remained mildly hypoxic. She had an ABG that showed acute hypercapnia. She was placed on BIPAP. Her follow up ABG was worse and she was intubated. She is now admitted to the ICU. Subjective/Events-last exam Pt reports doing ok. Awake and on the vent. Writing to communicate with staff. Asking for ETT out. Discussed importance of waiting until she is medically optimized for that. Objective Exam Vital Signs Vital Signs Date Time Temp Pulse Resp B/P (MAP) Pulse Ox O2 Delivery O2 Flow Rate FiO2 11/26/22 08:03 40 11/26/22 08:00 74 26 113/84 (94) 97 Mechanical Ventilator 45.00 11/26/22 07:30 36.5 Capillary Refill : General Appearance: No Apparent Distress, WD/WN Respiratory: Lungs Clear, No Respiratory Distress Cardiovascular: Regular Rate, Rhythm, No Murmur Neurologic/Psychiatric: Alert, Oriented x3 Results/Procedures Lab Laboratory Tests 11/26/22 04:04 Patient resulted labs reviewed. Imaging: Reviewed Imaging Report Assessment/Plan Assessment and Plan Assess & Plan/Chief Complaint Acute on chronic respiratory failure with hypoxia and hypercapnia Pneumonia due to Strep pneumoniae Strep pneumoniae bacteremia Endotracheally intubated COPD Cachexia s/p intubation 11/22 due to hypercapnic respiratory failure TeleICU following Sputum and blood culture with Strep pneumo Continue gentle IV fluids Previously tolerated Cefepime without issue Continue Rocephin Failed SBT x2- defer liberation to TeleICU DVT prophylaxis: Lovenox Severe sepsis, resolved Lactic acidosis, resolved Acute kidney injury, resolved Critical Care Critically Ill Patient LOLITA HODGSON MD Nov 26, 2022 09:00
--- NOTE | 2022-11-26 09:48 | Diagnostic Imaging Report ---
Indication: Tube placement. Comparison is made with prior exam of 11/24/2022. Findings: Heart size is normal. There are bibasilar pulmonary infiltrates. There are bilateral pleural effusions. No pneumothorax. Mediastinum unremarkable. ET and NG tubes appear to be in satisfactory position. Impression: Bibasilar pulmonary infiltrates and bilateral pleural effusions. Mild central pulmonary venous congestion. ET and NG tubes are in satisfactory position. Dictated by: Dictated on workstation # [id number]
--- NOTE | 2022-11-26 10:40 | Tele-ICU Progress Note ---
Subjective Date Seen by a Provider: Nov 26, 2022 Time Seen by a Provider: 10:40 Subjective/Events-last exam (Tele-ICU Physician , Progress Note ) Service provided via interactive audio and video telecommunications E-CARE system to a patient admitted to ICU bed in [facility]. Patient is seen today due to persistent need of ICU care Available chart/ vitals / labs / Images reviewed Video assessment done using teleICU camera, rest of exam as per RN Discussed with RN Events overnight : Afebrile hemodynamically stable Respiratory - 40 % I/O = pos Drips: 73 ns Pressors- no VENT SETTINGS and ABG reviewed CANDIDATE for SBTreviewed possible contraindications including Cardiovascu lar Stability /Sedation Score / FI02/PEEP / ABG / CXR/ secretions Sedation, discussed with RN, RASS 1 on fentanyl 150 prop 60 - AAO Hospital course: 11/22 - ARF/PNA , failed BIPAP in ER , intubated , AC 20 300 ml 40 % peep 5 11/23- AC 20 420 ml 40 % peep 5 , RASS 1 on fentanyl 125 prop 30 - AAO- rr changed to 16 11/23- AC 16 420 ml 40 % peep 5 , RASS 1 on fentanyl 150 prop 45 - AAO, cxr better 11/24- SBT FAILED rr 17-23 TV 430 on fent 150 , propofol 10 - 45min incr easing WOB and resp acidosis on ABG 11/26 - 45% , PAP up to 30s , ++ still secretions , propofol 60 , fent 250, ADDED SoluMEDSROL 40 q 8 A/P Acute resp failure ( hypoxix and hypercarbic ) with PNA and AECOPD - intubated 11/22 ( failed BIPAP ) -AC 20 420 ml 40 % peep 5 -propofol 60 , fent 250 - copious secretions - improved some - CANDIDATE for SBT today PNA , LEFT with bacteremia 11/22 (1/2 with) + STREP PNEUMONIAE, sputum cx + STREP PNEUMONIAE - multiple allergies - started on vanco and merrem - off vanco - cxr better Sepsis - cont IVF , not on pressors RAFIQ ( cr 1.4 on admission ) - resolved AECOPD - nebs - ADDED SoluMEDSROL 40 q 8 11/26 - with PAP rising from 16 to 30 COPD - not on chronic prednison - no pulm HTN on ECHO 2019 - 2 L NC 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 Discussed with RN to reach out if any questions or concerns A total of31 minutes of critical care time was devoted to this patient today, required to treat and/or prevent further deterioration of critical care condition ( as above ) . I am remotely monitoring this patient from another state. I am unable to do the bedside exam, and history/physical and pertinent information is taken from other notes in the computer and bedside staff. . Sepsis Event Evaluation Height, Weight, BMI Height: 5'1.00" Weight: 82lbs. 0.0oz. 37.315742ki; 17.29 BMI Method:Stated Exam Exam Patient acknowledged, consented, and participated in this virtual visit which was conducted using real time audio/video Vital Signs Date Time Temp Pulse Resp B/P (MAP) Pulse Ox O2 Delivery O2 Flow Rate FiO2 11/26/22 09:00 66 25 99/68 (78) 92 Mechanical Ventilator 45.00 11/26/22 08:03 40 11/26/22 08:00 74 26 113/84 (94) 97 Mechanical Ventilator 45.00 11/26/22 07:48 98 Mechanical Ventilator 45 11/26/22 07:41 75 20 95 45 11/26/22 07:30 36.5 11/26/22 07:00 67 11/26/22 07:00 69 28 106/75 (85) 94 Mechanical Ventilator 45.00 11/26/22 06:15 74 20 102/70 (83) 92 Mechanical Ventilator 45.00 11/26/22 05:00 84 20 155/97 (116) 97 Mechanical Ventilator 45.00 11/26/22 04:15 73 20 105/68 (80) 91 Mechanical Ventilator 45.00 11/26/22 04:00 45 11/26/22 04:00 93 Mechanical Ventilator 45 11/26/22 03:00 80 20 90/70 (77) 92 Mechanical Ventilator 45.00 11/26/22 02:07 69 20 93 45 11/26/22 02:00 73 20 95/71 (78) 93 Mechanical Ventilator 45.00 11/26/22 01:00 66 11/26/22 01:00 66 20 88/62 (72) 91 Mechanical Ventilator 50.00 11/26/22 00:18 67 20 93 Mechanical Ventilator 50.00 11/26/22 00:00 40 11/26/22 00:00 66 20 95/63 (73) 92 Mechanical Ventilator 40.00 11/25/22 23:59 92 Mechanical Ventilator 45 11/25/22 23:00 75 20 96/68 (78) 93 Mechanical Ventilator 40.00 11/25/22 22:00 79 20 114/72 (87) 91 Mechanical Ventilator 40.00 11/25/22 21:32 75 20 91 40 11/25/22 21:12 68 101/72 11/25/22 21:00 75 20 101/72 (84) 92 Mechanical Ventilator 40.00 11/25/22 20:00 91 Mechanical Ventilator 40 11/25/22 20:00 68 20 96/66 (76) 93 Mechanical Ventilator 40.00 11/25/22 20:00 40 11/25/22 19:45 72 20 95/71 (78) Mechanical Ventilator 40.00 11/25/22 19:30 72 20 97/67 (77) 89 Mechanical Ventilator 40.00 11/25/22 19:15 76 20 102/70 (81) 91 Mechanical Ventilator 40.00 11/25/22 19:00 71 11/25/22 19:00 71 20 88/64 (72) 91 Mechanical Ventilator 40.00 11/25/22 18:33 68 20 94 40 11/25/22 18:00 70 20 84/62 (70) 91 Mechanical Ventilator 40.00 11/25/22 17:00 75 19 104/83 (89) 96 Mechanical Ventilator 40.00 11/25/22 16:00 93 Mechanical Ventilator 40 11/25/22 16:00 40 11/25/22 16:00 68 19 97/69 (78) 89 Mechanical Ventilator 40.00 11/25/22 15:37 36.3 11/25/22 15:00 66 20 79/57 (64) 90 Mechanical Ventilator 40.00 11/25/22 14:17 73 20 97 40 11/25/22 14:00 70 20 119/87 (95) 99 Mechanical Ventilator 40.00 11/25/22 13:00 67 11/25/22 13:00 64 20 90/66 (76) 92 Mechanical Ventilator 40.00 11/25/22 12:00 64 20 88/65 (73) 94 Mechanical Ventilator 40.00 11/25/22 12:00 40 11/25/22 12:00 90 Mechanical Ventilator 40 11/25/22 11:41 36.8 11/25/22 11:00 72 102/69 (79) 94 Mechanical Ventilator 40.00 I & O 11/26/22 07:00 Intake Total 3310 ml Output Total 1400 ml Balance 1910 ml Height & Weight Height: 5'1.00" Weight: 82lbs. 0.0oz. 37.933906uh; 17.29 BMI Method:Stated General Appearance: No Apparent Distress, WD/WN HEENT: PERRL/EOMI, Other Respiratory: Lungs Clear, No Respiratory Distress Cardiovascular: Regular Rate, Rhythm, No Murmur Gastrointestinal: normal bowel sounds, soft, other (Patient has a large periumbilical hernia. There are some tenderness superior to this which she states is chronic.) Extremity: No Pedal Edema, Other (left BKA) Neurologic/Psychiatric: Alert, Oriented x3 Skin: Normal Color, Warm/Dry Results Lab Laboratory Tests 11/25/22 03:23 11/26/22 04:04 Assessment/Plan Assessment/Plan 1 EAGLE GANNON MD Nov 26, 2022 10:40
[2022-11-26] MEDS: methylPREDNISolone 40 MG/ML (Solu-MEDROL) VIAL IV SCH ×3 (10:44→20:49)
[2022-11-26] MEDS: cefTRIAXone PRE-MIX 50 ML IV SCH (10:44)
[2022-11-26 10:55] VITALS: BP 106/79
[2022-11-26 11:01] VITALS: BP 176/113
[2022-11-26 11:44] LABS: ABG BASE EXCESS 3.5 MMOL/L (-2.5-2.5); ABG OXYGEN SATURATION 89 % (94-100); ABG PCO2 54 MMHG (35-45); ABG PH 7.35 (7.37-7.43); ABG PO2 64 MMHG (79-93); ABG TCO2 30.4 MMOL/L (21.0-31.0); ALLENS TEST P; INSPIRED O2 45; PATIENT TEMP 37; VENTILATOR NO
[2022-11-26] MEDS ORDERED: LORazepam INJ 2 MG/ML (ATIVAN) VIAL ONE ×2 (12:07→12:45)
[2022-11-26] MEDS ORDERED: LORazepam INJ 2 MG/ML (ATIVAN) VIAL IVP PRN ×3 (12:15→13:00)
[2022-11-26] MEDS: DexMEDEtomidine 250 ML DRIP 250 ML IV SCH (12:19)
[2022-11-26] MEDS ORDERED: HYDROmorphone 2 MG/ML VIAL (DILAUDID) IV NR (12:45)
[2022-11-26 14:14] LABS: ABG BASE EXCESS 3.1 MMOL/L (-2.5-2.5); ABG OXYGEN SATURATION 92 % (94-100); ABG PCO2 57 MMHG (35-45); ABG PO2 67 MMHG (79-93); ABG TCO2 30.9 MMOL/L (21.0-31.0)
[2022-11-26 14:16] LABS: ABG PH 7.32 (7.37-7.43); ALLENS TEST P; INSPIRED O2 80; PATIENT TEMP 35.5; VENTILATOR NO
[2022-11-26 15:04] VITALS: BP 143/98
--- NOTE | 2022-11-26 15:41 | Tele-ICU Progress Note ---
Progress Note Spontaneous Breathing Trial ( vitals /Cardiovascular Stability/Sedation Score/FI02/PEEP/ABG/CXR reviewed: No contraindications) SBT DATA: Duration 45 min, meet all required criteria, acceptable ABG Extubate without complications, but was bvery anxious and tachypneic Was treated with ativan IV , dilaudid 0.5, precedex 1.6 , placed on BIPAP - which she tolerated very poorly -> taking mask off constantly , anxious and has very laboured respiration repeated ABG on BIPAP are worsenign Reintubated at 15.05 without complication will cont on Vent - previous setting CXR post - int reviewed Monitored via camera,multiple " visits " total additional CCT 55 min Focused Exam Height, Weight, BMI Height: 5'1.00" Weight: 82lbs. 0.0oz. 37.283250to; 17.29 BMI Method:Stated EAGLE GANNON MD Nov 26, 2022 15:41
[2022-11-26 15:44] VITALS: BP 153/98
[2022-11-26] MEDS: ENOXAPARIN INJECTION 30 MG/0.3 ML SYR SC SCH (15:57)
--- NOTE | 2022-11-26 15:58 | Diagnostic Imaging Report ---
INDICATION: Pneumonia. COMPARISON is made with prior exam of 11/26/2022. FINDINGS: ET and NG tubes are in satisfactory positions. The hear size is normal. There are bibasilar pulmonary infiltrates. There are bilateral pleural effusions, left greater than right. There is central pulmonary venous congestion. No pneumothorax. The mediastinum is unremarkable. IMPRESSION: Bibasilar pulmonary infiltrates suspect for pneumonia with bilateral pleural effusions, left greater than right. Mild such pulmonary venous congestion. Dictated by: Dictated on workstation # [id number]
[2022-11-26 16:10] LABS: ABG BASE EXCESS 4.6 MMOL/L (-2.5-2.5); ABG OXYGEN SATURATION 84 % (94-100); ABG PCO2 48 MMHG (35-45); ABG PO2 49 MMHG (79-93); ABG TCO2 30.9 MMOL/L (21.0-31.0); ALLENS TEST POSITIVE; INSPIRED O2 70%; PATIENT TEMP 36.1; VENTILATOR YES
[2022-11-26] MEDS ORDERED: ROCURONIUM 50 MG/5 ML (ZEMURON) VIAL IV ONE (19:08)
[2022-11-27] VITALS (7 sets, daily range): BP systolic 109–141; BP diastolic 59–111
[2022-11-27] MEDS: fentaNYL DRIP PRE-MIX 250 ML IV SCH ×5 (00:31→20:31)
[2022-11-27] MEDS: RT-ALBUTEROL/IPRATROPIUM 3 ML (DUONEB) VIAL INH SCH ×6 (02:24→21:54)
[2022-11-27] MEDS: methylPREDNISolone 40 MG/ML (Solu-MEDROL) VIAL IV SCH ×4 (04:16→20:31)
[2022-11-27] MEDS: POTASSIUM CL 10MEQ/50ML IVPB 50 ML IV SCH (04:46)
[2022-11-27] MEDS: KCL 20 MEQ TAB (K-DUR) PO SCH (04:46)
[2022-11-27] MEDS: MAGNESIUM 1 GM/100 ML IVPB 100 ML IV SCH (04:46)
[2022-11-27 04:55] LABS: ABG BASE EXCESS 6.2 MMOL/L (-2.5-2.5); ABG OXYGEN SATURATION 95 % (94-100); ABG PCO2 45 MMHG (35-45); ABG PH 7.44 (7.37-7.43); ABG PO2 71 MMHG (79-93); ALLENS TEST YES-POS; INSPIRED O2 70%; PATIENT TEMP 36; VENTILATOR YES
[2022-11-27] MEDS: PROPOFOL DRIP (ICU) 100 ML IV SCH ×3 (05:28→21:12)
[2022-11-27 05:29] LABS: EOSINOPHILS % (AUTO) 0 % (0-10); HEMOGLOBIN 12.3 g/dL (11.5-16.0); MEAN CORPUSCULAR VOLUME 88 fL (80-99)
[2022-11-27] MEDS: DexMEDEtomidine 250 ML DRIP 250 ML IV SCH (05:29)
[2022-11-27 05:31] LABS: BASOPHILS % (AUTO) 1 % (0-10); HEMATOCRIT 39 % (35-52); LYMPHOCYTES # (AUTO) 0.7 10^3/uL (1.0-4.0); LYMPHOCYTES % (AUTO) 10 % (12-44); MEAN CORPUSCULAR HEMOGLOBIN 28 pg (25-34); MEAN CORPUSCULAR HGB CONC 32 g/dL (32-36); MEAN PLATELET VOLUME 13.3 fL (9.0-12.2); MONOCYTES # (AUTO) 0.3 10^3/uL (0.0-1.0); MONOCYTES % (AUTO) 4 % (0-12); NEUTROPHILS # (AUTO) 5.9 10^3/uL (1.8-7.8); NEUTROPHILS % (AUTO) 82 % (42-75); PLATELET COUNT 184 10^3/uL (130-400); WHITE BLOOD COUNT 7.2 10^3/uL (4.3-11.0)
[2022-11-27 05:46] LABS: ALBUMIN 2.6 GM/DL (3.2-4.5); BILIRUBIN,TOTAL 0.2 MG/DL (0.1-1.0); CALCIUM 8.8 MG/DL (8.5-10.1); CREATININE SERUM 0.67 MG/DL (0.60-1.30); MAGNESIUM 2.2 MG/DL (1.6-2.4); PHOSPHORUS 3.8 MG/DL (2.3-4.7); POTASSIUM 4.7 MMOL/L (3.6-5.0); TOTAL PROTEIN 5.8 GM/DL (6.4-8.2)
[2022-11-27] MEDS: RT-BUDESONIDE NEBS 0.5 MG/2ML (PULMICORT) AMP INH SCH ×2 (06:52→21:54)
[2022-11-27] MEDS: DOCUSATE SODIUM 10 MG/ML 10 ML UDC (COLACE) PO SCH ×2 (08:43→20:31)
[2022-11-27] MEDS: SENNOSIDES 8.6 MG (SENOKOT) TAB PO SCH ×2 (08:43→20:31)
[2022-11-27] MEDS: PANTOPRAZOLE 40 MG (PROTONIX) VIAL IV SCH (08:43)
--- NOTE | 2022-11-27 09:18 | Progress Note - Hospitalist ---
Subjective HPI/CC On Admission Date Seen by Provider: Nov 27, 2022 Cara Pruett is a 52 year old female with PMH COPD on home oxygen 3 L, anxiety, depression, alcohol abuse, tobacco abuse, who presented with shortness of breath. She is intubated and sedated. All history is obtained from the ER physician. Her son reported that she has been more short of breath the past few days. She was found by EMS with oxygen saturations in the 60s on her 3 L. She wa s placed on 15 L nonrebreather. She remained mildly hypoxic. She had an ABG that showed acute hypercapnia. She was placed on BIPAP. Her follow up ABG was worse and she was intubated. She is now admitted to the ICU. Subjective/Events-last exam Pt was reintubated yesterday. Still able to communicate via paper and pen. No complaints or concerns. Objective Exam Vital Signs Vital Signs Date Time Temp Pulse Resp B/P (MAP) Pulse Ox O2 Delivery O2 Flow Rate FiO2 11/27/22 07:58 36.1 11/27/22 07:40 75 11/27/22 06:54 20 92 70 11/27/22 06:30 146/86 (106) Mechanical Ventilator 70.00 Capillary Refill : General Appearance: Chronically ill, Thin Respiratory: Lungs Clear, Other (on vent) Cardiovascular: Regular Rate, Rhythm Gastrointestinal: Normal Bowel Sounds, Non Tender, Soft Neurologic/Psychiatric: Alert, Oriented x3 Results/Procedures Lab Laboratory Tests 11/27/22 04:11 Patient resulted labs reviewed. Imaging: Reviewed Imaging Report Assessment/Plan Assessment and Plan Assess & Plan/Chief Complaint Acute on chronic respiratory failure with hypoxia and hypercapnia Pneumonia due to Strep pneumoniae Strep pneumoniae bacteremia Endotracheally intubated COPD Cachexia s/p intubation 11/22, extubated 11/26 and reintubated shortly after Consider LTACH if not able to wean soon TeleICU following Sputum and blood culture with Strep pneumo Continue gentle IV fluids Previously tolerated Cefepime without issue Continue Rocephin DVT prophylaxis: Lovenox Severe sepsis, resolved Lactic acidosis, resolved Acute kidney injury, resolved Critical Care Critically Ill Patient LOLITA HODGSON MD Nov 27, 2022 09:18
--- NOTE | 2022-11-27 09:37 | Tele-ICU Progress Note ---
Subjective Date Seen by a Provider: Nov 27, 2022 Time Seen by a Provider: 09:36 Subjective/Events-last exam (Tele-ICU Physician , Progress Note ) Service provided via interactive audio and video telecommunications E-CARE system to a patient admitted to ICU bed in [facility]. Patient is seen today due to persistent need of ICU care Available chart/ vitals / labs / Images reviewed Video assessment done using teleICU camera, rest of exam as per RN Discussed with RN Events overnight : Afebrile hemodynamically stable Respiratory - 40 % I/O = pos Drips: 73 ns Pressors- no VENT SETTINGS and ABG reviewed NOT CANDIDATE for SBTreviewed possible contraindications including Cardiov ascular Stability /Sedation Score / FI02/PEEP / ABG / CXR/ secretions Sedation, discussed with RN, RASS 1 on fentanyl 150 prop 60 - AAO Hospital course: 11/22 - ARF/PNA , failed BIPAP in ER , intubated , AC 20 300 ml 40 % peep 5 11/23- AC 20 420 ml 40 % peep 5 , RASS 1 on fentanyl 125 prop 30 - AAO- rr changed to 16 11/23- AC 16 420 ml 40 % peep 5 , RASS 1 on fentanyl 150 prop 45 - AAO, cxr better 11/24- SBT FAILED rr 17-23 TV 430 on fent 150 , propofol 10 - 45min increasing WOB and resp acidosis on ABG 11/26 - 45% , PAP up to 30s , ++ still secretions , propofol 60 , fent 250, ADDED SoluMEDSROL 40 q 8 11/26- SBT 45min, meet all required criteria, acceptable ABG , EXTUBATED , anxious and tachypneic -Was treated with ativan IV , dilaudid 0.5, precedex 1.6 , placed on BIPAP - which she tolerated very poorly -> taking mask off constantly , anxious and has very laboured respiration REINTUBATED 11/27 - precedex 1 , frent 250 , propofol 50 RASS +1 , -AC 20 420 ml 70 % peep 5 A/P Acute resp failure ( hypoxix and hypercarbic ) with PNA and AECOPD - intubated 11/22 ( failed BIPAP ) , EXtubated 11/26 with good SBT - very anxuois and WOB , failed BIPAP ( not keepin it on ) REINTUBATED 11/26 -AC 20 420 ml 70 % peep 5 -precedex 1 , frent 250 , propofol 50 RASS +1 - PNA on left IMPROVED , , copious secretions - improved, Solumedraol added 11/26 due AECOPD PNA , LEFT with bacteremia 11/22 (1/2 with) + STREP PNEUMONIAE, sputum cx + STREP PNEUMONIAE - multiple allergies - started on vanco and merrem - off vanco - cxr significantly better Sepsis - cont IVF , not on pressors RAFIQ ( cr 1.4 on admission ) - resolved AECOPD - nebs - ADDED SoluMEDSROL 40 q 8 11/26 - with PAP rising from 16 to 30 COPD - not on chronic prednison - no pulm HTN on ECHO 2019 - 2 L NC [employer] home malnutrition - at goal glycerna - shortage of pulmicare) 11/22 - Chronic morphine use - pain syndrome with left AKA pain and abd pain with hernia - on fentanyl gtt now Lines : periph , (Central Line Necessity Reviewed) Grubbs: + OG: Nutrition: start pulmicare 11/22 Analgesia: Anxiety/ delirium VTE Prophylaxis: britt Stress Ulcer Prophylaxis: ppi Plans in collaboration with bedside consultants and IM MDs. Discussed with RN to reach out if any questions or concerns A total of 33 minutes of critical care time was devoted to this patient today, required to treat and/or prevent further deterioration of critical care con dition ( as above ) . I am remotely monitoring this patient from another state. I am unable to do the bedside exam, and history/physical and pertinent information is taken from other notes in the computer and bedside staff. . Sepsis Event Evaluation Height, Weight, BMI Height: 5'1.00" Weight: 82lbs. 0.0oz. 37.884556ny; 17.25 BMI Method:Stated Exam Exam Patient acknowledged, consented, and participated in this virtual visit which was conducted using real time audio/video Vital Signs Date Time Temp Pulse Resp B/P (MAP) Pulse Ox O2 Delivery O2 Flow Rate FiO2 11/27/22 09:30 75 140/82 11/27/22 09:30 75 140/82 11/27/22 09:30 75 140/82 11/27/22 07:58 36.1 11/27/22 07:40 75 11/27/22 06:54 58 20 92 70 11/27/22 06:30 56 20 146/86 (106) 91 Mechanical Ventilator 70.00 4/4/23 06:00 60 20 110/93 (99) 96 Mechanical Ventilator 70.00 11/27/22 05:29 62 143/90 11/27/22 05:29 62 143/90 11/27/22 05:28 62 143/90 11/27/22 05:00 62 20 143/90 (107) 95 Mechanical Ventilator 70.00 11/27/22 04:31 53 123/81 11/27/22 04:00 96 Mechanical Ventilator 70 11/27/22 04:00 53 20 123/81 (95) 93 Mechanical Ventilator 70.00 11/27/22 03:00 59 20 126/87 (100) 95 Mechanical Ventilator 70.00 11/27/22 02:24 68 20 96 70 11/27/22 02:00 58 20 138/87 (104) 96 Mechanical Ventilator 70.00 11/27/22 01:15 54 142/90 11/27/22 01:00 69 11/27/22 01:00 72 20 151/86 (107) 94 Mechanical Ventilator 70.00 11/27/22 00:31 54 128/81 11/27/22 00:00 54 20 128/81 (97) 93 Mechanical Ventilator 70.00 11/26/22 23:59 95 Mechanical Ventilator 70 11/26/22 23:37 76 140/86 11/26/22 23:00 76 20 140/86 (104) 94 Mechanical Ventilator 70.00 11/26/22 22:30 69 20 95 70 11/26/22 22:00 78 20 146/93 (110) 96 Mechanical Ventilator 70.00 11/26/22 21:00 56 20 143/88 (106) 93 Mechanical Ventilator 70.00 11/26/22 20:00 60 20 133/82 (99) 92 Mechanical Ventilator 70.00 11/26/22 20:00 96 Mechanical Ventilator 70 11/26/22 19:37 57 155/93 11/26/22 19:35 36.6 11/26/22 19:13 57 20 93 70 11/26/22 19:10 57 155/93 11/26/22 19:00 54 20 149/89 (109) 94 Mechanical Ventilator 70.00 11/26/22 19:00 54 11/26/22 18:00 60 19 155/93 (113) 94 Mechanical Ventilator 80.00 11/26/22 17:00 52 20 136/81 (99) 92 Mechanical Ventilator 80.00 11/26/22 16:32 Mechanical Ventilator 100.00 11/26/22 16:32 91 Mechanical Ventilator 10.00 80 11/26/22 16:03 36.1 11/26/22 16:00 56 20 135/96 (109) 90 Mechanical Ventilator 70.00 11/26/22 15:57 62 153/98 11/26/22 15:57 62 153/98 11/26/22 15:55 70 11/26/22 15:55 Mechanical Ventilator 70.00 11/26/22 15:44 62 20 89 60 11/26/22 15:44 Mechanical Ventilator 60.00 11/26/22 15:10 84 184/126 11/26/22 15:04 67 16 92 60 11/26/22 15:00 80 16 123/87 (99) 94 NIV Bilevel 80.00 11/26/22 14:00 84 16 94 NIV Bilevel 80.00 11/26/22 13:00 103 17 184/126 (145) 94 NIV Bilevel 80.00 11/26/22 12:56 106 18 92 80.00 11/26/22 12:38 87 High Flow N/C 10.00 11/26/22 12:33 95 80.00 11/26/22 12:22 110 11/26/22 12:19 83 179/110 11/26/22 12:16 NIV Bilevel 100.00 11/26/22 12:16 110 23 95 100.00 11/26/22 12:15 88 High Flow N/C 10.00 11/26/22 12:00 90 34 169/134 (146) 78 Nasal Cannula 7.00 11/26/22 12:00 35.7 11/26/22 11:57 Nasal Cannula 2.00 11/26/22 11:27 83 179/110 11/26/22 11:01 83 16 100 45 11/26/22 11:00 84 25 176/110 (132) 86 Mechanical Ventilator 45.00 11/26/22 10:55 71 21 97 45 11/26/22 10:20 66 99/68 11/26/22 10:00 62 25 94/72 (79) 94 Mechanical Ventilator 45.00 I & O 11/27/22 07:00 Intake Total 1470 ml Output Total 2150 ml Balance -680 ml Height & Weight Height: 5'1.00" Weight: 82lbs. 0.0oz. 37.442430lh; 17.25 BMI Method:Stated General Appearance: Chronically ill, Thin HEENT: PERRL/EOMI, Other Respiratory: Lungs Clear, Other (on vent) Cardiovascular: Regular Rate, Rhythm Gastrointestinal: normal bowel sounds, soft, other (Patient has a large periumbilical hernia. There are some tenderness superior to this which she states is chronic.) Extremity: No Pedal Edema, Other (left BKA) Neurologic/Psychiatric: Alert, Oriented x3 Skin: Normal Color, Warm/Dry Results Lab Laboratory Tests 11/26/22 04:04 11/27/22 04:11 Assessment/Plan Assessment/Plan 1 EAGLE GANNON MD Nov 27, 2022 09:37
[2022-11-27] MEDS: cefTRIAXone PRE-MIX 50 ML IV SCH (10:38)
[2022-11-27] MEDS: ENOXAPARIN INJECTION 30 MG/0.3 ML SYR SC SCH (16:32)
[2022-11-28] MEDS: fentaNYL DRIP PRE-MIX 250 ML IV SCH ×5 (01:24→20:57)
[2022-11-28] MEDS: RT-ALBUTEROL/IPRATROPIUM 3 ML (DUONEB) VIAL INH SCH ×6 (02:36→23:16)
[2022-11-28 02:37] VITALS: BP 145/92
[2022-11-28] MEDS: methylPREDNISolone 40 MG/ML (Solu-MEDROL) VIAL IV SCH ×4 (02:55→20:58)
[2022-11-28] MEDS: PROPOFOL DRIP (ICU) 100 ML IV SCH ×3 (03:45→20:58)
[2022-11-28 05:08] LABS: BASOPHILS % (AUTO) 0 % (0-10); EOSINOPHILS % (AUTO) 0 % (0-10); HEMATOCRIT 39 % (35-52); HEMOGLOBIN 12.2 g/dL (11.5-16.0); LYMPHOCYTES # (AUTO) 0.6 10^3/uL (1.0-4.0); LYMPHOCYTES % (AUTO) 9 % (12-44); MEAN CORPUSCULAR HEMOGLOBIN 28 pg (25-34); MEAN CORPUSCULAR HGB CONC 31 g/dL (32-36); MEAN CORPUSCULAR VOLUME 88 fL (80-99); MEAN PLATELET VOLUME 12.3 fL (9.0-12.2); MONOCYTES # (AUTO) 0.5 10^3/uL (0.0-1.0); MONOCYTES % (AUTO) 8 % (0-12); NEUTROPHILS # (AUTO) 5.5 10^3/uL (1.8-7.8); NEUTROPHILS % (AUTO) 81 % (42-75); PLATELET COUNT 252 10^3/uL (130-400); WHITE BLOOD COUNT 6.8 10^3/uL (4.3-11.0)
[2022-11-28 05:25] LABS: ALBUMIN 2.7 GM/DL (3.2-4.5); POTASSIUM 4.4 MMOL/L (3.6-5.0)
[2022-11-28 05:26] LABS: CALCIUM 8.6 MG/DL (8.5-10.1)
[2022-11-28 05:28] LABS: TOTAL PROTEIN 5.4 GM/DL (6.4-8.2)
[2022-11-28] MEDS: POTASSIUM CL 10MEQ/50ML IVPB 50 ML IV SCH (05:28)
[2022-11-28] MEDS: KCL 20 MEQ TAB (K-DUR) PO SCH (05:28)
[2022-11-28 05:29] LABS: BILIRUBIN,TOTAL 0.2 MG/DL (0.1-1.0)
[2022-11-28 05:31] LABS: CREATININE SERUM 0.66 MG/DL (0.60-1.30); PHOSPHORUS 3.8 MG/DL (2.3-4.7)
[2022-11-28] MEDS: hydrALAZINE (APESOLINE) 20 MG/ML VIAL IV PRN (05:32)
[2022-11-28 05:34] LABS: MAGNESIUM 2.2 MG/DL (1.6-2.4)
[2022-11-28] MEDS: MAGNESIUM 1 GM/100 ML IVPB 100 ML IV SCH (05:37)
[2022-11-28 06:56] VITALS: BP 94/62
[2022-11-28] MEDS: RT-BUDESONIDE NEBS 0.5 MG/2ML (PULMICORT) AMP INH SCH ×2 (06:56→23:16)
[2022-11-28] MEDS: PANTOPRAZOLE 40 MG (PROTONIX) VIAL IV SCH (08:08)
[2022-11-28] MEDS: DOCUSATE SODIUM 10 MG/ML 10 ML UDC (COLACE) PO SCH ×2 (08:08→20:58)
[2022-11-28] MEDS: SENNOSIDES 8.6 MG (SENOKOT) TAB PO SCH ×2 (08:08→20:58)
--- NOTE | 2022-11-28 08:42 | Progress Note - Hospitalist ---
Subjective HPI/CC On Admission Date Seen by Provider: Nov 28, 2022 Cara Pruett is a 52 year old female with PMH COPD on home oxygen 3 L, anxiety, depression, alcohol abuse, tobacco abuse, who presented with shortness of breath. She is intubated and sedated. All history is obtained from the ER physician. Her son reported that she has been more short of breath the past few days. She was found by EMS with oxygen saturations in the 60s on her 3 L. She wa s placed on 15 L nonrebreather. She remained mildly hypoxic. She had an ABG that showed acute hypercapnia. She was placed on BIPAP. Her follow up ABG was worse and she was intubated. She is now admitted to the ICU. Subjective/Events-last exam Pt is still on vent but wide awake. Writing notes. Wrote she is ready to be extubated and knows she will do well. Wrote that she was just scared last night. Objective Exam Vital Signs Vital Signs Date Time Temp Pulse Resp B/P (MAP) Pulse Ox O2 Delivery O2 Flow Rate FiO2 11/28/22 08:09 72 94/62 11/28/22 07:10 36.0 Mechanical Ventilator 50.00 11/28/22 06:56 20 94 50 Capillary Refill : General Appearance: No Apparent Distress, Other (awake and on vent) Respiratory: Lungs Clear, Other (on vent) Cardiovascular: Regular Rate, Rhythm, No Murmur Neurologic/Psychiatric: Alert, Oriented x3 Results/Procedures Lab Laboratory Tests 11/28/22 04:02 Patient resulted labs reviewed. Imaging: Reviewed Imaging Report Assessment/Plan Assessment and Plan Assess & Plan/Chief Complaint Acute on chronic respiratory failure with hypoxia and hypercapnia Pneumonia due to Strep pneumoniae Strep pneumoniae bacteremia Endotracheally intubated COPD Cachexia s/p intubation 11/22, extubated 11/26 and reintubated shortly after that day Hopeful to liberate soon TeleICU following Sputum and blood culture with Strep pneumo Continue gentle IV fluids Continue Rocephin DVT prophylaxis: Lovenox Severe sepsis, resolved Lactic acidosis, resolved Acute kidney injury, resolved Critical Care Critically Ill Patient LOLITA HODGSON MD Nov 28, 2022 08:42
--- NOTE | 2022-11-28 08:51 | Diagnostic Imaging Report ---
Indication: Respiratory failure Single AP view of chest is obtained with comparison made to study of 11/26/2022 Overall heart size is within normal limits. Pulmonary vascularity is unremarkable. There is background air trapping with prominent interstitial markings throughout the lungs. Patchy density is seen in the perihilar regions with blunting of costophrenic sulci. Endotracheal tube is in place with tip below thoracic inlet but just above the tyesha. Nasogastric tube reaches the mid to distal esophagus. IMPRESSION: Overall improvement in aeration lungs with mild residual perihilar edema and/or pneumonitis and mild to moderate bilateral pleural effusions. Endotracheal tube is in stable position with nasogastric tube only reaching the mid to distal esophagus. Dictated by: Dictated on workstation # [id number]
--- NOTE | 2022-11-28 09:38 | Tele-ICU Progress Note ---
Subjective Date Seen by a Provider: Nov 28, 2022 Subjective/Events-last exam This virtual visit was conducted using real time audio/video. Thank you for asking us to see this patient for respiratory insufficiency due to St Pneumoniae pna, sepsis, AECOPD. Recent events: Extubated and reintubated 11/26. PE: resting comfortably on vent. VSS. O2 sat 91% on AC 20/420/60%/+5 HEENT: No obvious masses, adenopathy or JVD. Chest: Coarse wheezes on auscultation. CV: RRR S1 S2 No murmur or added sounds. Abd: Non-tender. Bowel sounds Y. : Unremarkable. Grubbs Y. ARABIC TEACHER/psychiatric: Grossly intact. No obvious focal findings. Extremities: No edema. Capillary refill < 3 seconds. Skin: unremarkable. Results: Elevated BG 120. AB.44/45/71 on 70%, 11/27/22. CXR: Hyperinflated, B infilts, B effusions L>R. Available chart/ vitals / labs / images reviewed. Video assessment done using teleICU camera, rest of exam as per RN. A/P: Respiratory insufficiency: Continue present management with vent, Prec., Fent., Prop., Medrol, Duonebs. Could try higher PEEP e.g. 8-10. No SBT due to hypoxia etc. Critical Care: critically ill patient. Cont. abx, PPI. [place]. Discussed with BRICE Meza. Asked RN to reach out to eICU if any questions or concerns later. Time spent with patient/coordination of care with other health professionals (ks ns): 25 Sepsis Event Evaluation Height, Weight, BMI Height: 5'1.00" Weight: 82lbs. 0.0oz. 37.610989rr; 17.25 BMI Method:Stated Exam Exam Patient acknowledged, consented, and participated in this virtual visit which wa s conducted using real time audio/video Vital Signs Date Time Temp Pulse Resp B/P (MAP) Pulse Ox O2 Delivery O2 Flow Rate FiO2 11/28/22 09:15 Mechanical Ventilator 60.00 11/28/22 08:09 72 94/62 11/28/22 08:00 69 22 95/69 (78) 90 Mechanical Ventilator 50.00 11/28/22 07:29 72 11/28/22 07:10 36.0 Mechanical Ventilator 50.00 11/28/22 07:00 68 20 94/59 (71) 94 Mechanical Ventilator 60.00 11/28/22 06:56 66 20 94 50 11/28/22 06:30 73 20 92/55 (70) 94 Mechanical Ventilator 60.00 11/28/22 06:15 71 20 96/60 (67) 93 Mechanical Ventilator 60.00 11/28/22 06:00 74 20 82/55 (66) 93 Mechanical Ventilator 60.00 11/28/22 05:30 56 20 106/76 (88) 93 Mechanical Ventilator 60.00 11/28/22 05:00 44 20 160/115 (140) 94 Mechanical Ventilator 60.00 11/28/22 04:00 94 Mechanical Ventilator 60 11/28/22 04:00 50 20 159/115 (139) 93 Mechanical Ventilator 60.00 11/28/22 03:00 52 20 142/92 (123) 94 Mechanical Ventilator 60.00 11/28/22 02:37 49 20 93 60 11/28/22 02:00 51 20 149/93 (116) 96 Mechanical Ventilator 60.00 11/28/22 01:00 49 20 141/89 (112) 95 Mechanical Ventilator 60.00 11/28/22 01:00 49 11/28/22 00:03 37.0 11/28/22 00:00 50 20 146/90 (115) 93 Mechanical Ventilator 60.00 11/27/22 23:59 94 Mechanical Ventilator 60 11/27/22 23:00 49 20 150/90 (116) 94 Mechanical Ventilator 60.00 11/27/22 22:15 50 20 149/94 (119) 95 Mechanical Ventilator 60.00 11/27/22 21:56 49 20 93 60 11/27/22 21:54 49 20 93 60 11/27/22 21:00 65 20 126/87 (104) 94 Mechanical Ventilator 60.00 11/27/22 20:00 84 20 96/68 (80) 91 Mechanical Ventilator 60.00 11/27/22 20:00 94 Mechanical Ventilator 60 11/27/22 19:49 37.0 11/27/22 19:45 90 20 103/72 (81) 95 Mechanical Ventilator 60.00 11/27/22 19:30 81 20 97/59 (66) 93 Mechanical Ventilator 60.00 11/27/22 19:15 82 20 100/90 (93) 94 Mechanical Ventilator 60.00 11/27/22 19:02 79 124/82 11/27/22 19:00 82 11/27/22 19:00 82 20 85/75 (81) 94 Mechanical Ventilator 60.00 11/27/22 18:38 79 20 93 60 11/27/22 18:00 77 19 130/86 (101) 94 Mechanical Ventilator 60.00 11/27/22 17:00 76 19 134/102 (113) 92 Mechanical Ventilator 60.00 11/27/22 17:00 76 134/102 11/27/22 16:25 95 Mechanical Ventilator 60 11/27/22 16:00 81 18 125/88 (100) 93 Mechanical Ventilator 60.00 11/27/22 15:58 37.0 11/27/22 15:00 54 20 136/81 (99) 92 Mechanical Ventilator 60.00 11/27/22 14:56 73 137/88 11/27/22 14:28 73 20 93 60 11/27/22 14:20 54 136/81 11/27/22 14:00 72 20 126/80 (95) 94 Mechanical Ventilator 60.00 11/27/22 13:00 81 19 114/85 (95) 92 Mechanical Ventilator 60.00 11/27/22 13:00 81 121/108 11/27/22 12:36 81 11/27/22 12:15 96 Mechanical Ventilator 60 11/27/22 12:07 36.1 11/27/22 12:00 80 20 121/108 (112) 96 Mechanical Ventilator 70.00 11/27/22 11:00 80 16 131/84 (100) 94 Mechanical Ventilator 70.00 11/27/22 10:19 84 21 92 70 11/27/22 10:13 75 94/79 11/27/22 10:00 67 19 94/79 (84) 96 Mechanical Ventilator 70.00 I & O 11/28/22 07:00 Intake Total 1460 ml Output Total 1500 ml Balance -40 ml Height & Weight Height: 5'1.00" Weight: 82lbs. 0.0oz. 37.026713ed; 17.25 BMI Method:Stated General Appearance: No Apparent Distress, Other (awake and on vent) HEENT: PERRL/EOMI, Other Respiratory: Lungs Clear, Other (on vent) Cardiovascular: Regular Rate, Rhythm, No Murmur Gastrointestinal: normal bowel sounds, soft, other (Patient has a large periumbilical hernia. There are some tenderness superior to this which she states is chronic.) Extremity: No Pedal Edema, Other (left BKA) Neurologic/Psychiatric: Alert, Oriented x3 Skin: Normal Color, Warm/Dry Results Lab Laboratory Tests 11/27/22 04:11 11/28/22 04:02 Assessment/Plan Assessment/Plan See free text. Critical Care: Ventilator Management GAGE COPE MD Nov 28, 2022 09:38
[2022-11-28 09:50] VITALS: BP 163/108
[2022-11-28] MEDS: DexMEDEtomidine 250 ML DRIP 250 ML IV SCH (10:26)
[2022-11-28] MEDS: cefTRIAXone PRE-MIX 50 ML IV SCH (10:33)
--- NOTE | 2022-11-28 13:01 | Physical Therapy Evaluation ---
PT Evaluation-General Medical Diagnosis Admission Date Nov 22, 2022 at 14:49 Medical Diagnosis: shortness of breath Onset Date: Nov 22, 2022 Therapy Diagnosis Therapy Diagnosis: Gait deficit, strength deficit Height/Weight Height (Feet): 5 Height (Inches): 1.00 Weight (Pounds): 82 Weight (Ounces): 0.0 Precautions Precautions/Isolations: Fall Prevention, Standard Precautions Weight Bear Status Right Lower Extremity: Right Full Weight Bearing Left AKA 14 years ago Referral Physician: Dr. Argueta Reason for Referral: Evaluation/Treatment Medical History Pertinent Medical History: COPD, CVA, GERD, HTN, Neuropathy, Renal Insufficiency, Smoking Reviewed History: Yes Social History Home: Apartment Current Living Status: Spouse Entry Into Home: Level Entry Prior Prior Level of Function SCALE: Activities may be completed with or without assistive devices. 5-Tbocvsandr-mrgxpcw completes the activity by him/herself with no assistance from a helper. 5-Set-up or Clean-up Assistance-helper sets up or cleans up; patient completes activity. [place] assists only prior to or following the activity. 4-Supervision or Touching Assistance-helper provides verbal cues and/or touching/steadying and/or contact guard assistance as patient completes activity. Assistance may be provided throughout the activity or intermittently. 3-Partial/Moderate Assistance-helper does LESS THAN HALF the effort. [place] lifts, holds or supports trunk or limbs, but provides less than half the effort. 2-Substantial/Maximal Assistance-helper does MORE THAN HALF the effort. [place] lifts or holds trunk or limbs and provides more than half the effort. 1-Sbcyyypdj-wjmzbe does ALL the effort. Patient does none of the effort to complete the activity. Or, the assistance of 2 or more helpers is required for the patient to complete the activity. If activity was not attempted, code reason: 7-Patient Refused. 9-Not Applicable-not attempted and the patient did not perform the activity before the current illness, exacerbation or injury. 10-Not Attempted due to Environmental Limitations-(lack of equipment, weather restraints, etc.). 88-Not Attempted due to Medical Conditions or Safety Concerns. Bed Mobility: 6 Transfers (B,C,W/C): 6 Gait: 6 Indoor Mobility (Ambulation): Independent Prior Devices Use: Manual wheelchair, Walker PT Evaluation-Current Subjective Patient lying supine in bed upon PT arrival, agreeable to treatment. Patient still on vent and awake. Rates pain at 5/10 in abdomen. Objective Patient Orientation: Person, Place, Time, Situation Attachments: Oxygen, Ventilator, Grubbs Catheter, IV ROM/Strength ROM Lower Extremities WFLS right LE to PROM Strength Lower Extremities 3-/5 all right LE planes; Left LE N/A Sensory Vision: Functional Hearing: Functional Sensation Right Lower Extremit: Impaired Sensation Left Lower Extremity: Impaired Transfers Roll Left to Right (QC): 2 Sit to Lying (QC): 2 Lying to Sitting/Side of Bed(Q: 2 Balance Sitting Static: Poor Sitting Dynamic: Poor Assessment/Needs Rehab Potential: Guarded Equipment Needs Patient requires max A for all observed bed mobility. She performs LE therapeutic exercises of AP, QS, GS, Hip abduction and SLRs with AAROM x 10 right LE. Patient in bed post treatment with all needs met, nursing notified, c all light in hand. PT Skilled Nursing Goals Senior Resident Care Director Goals PT Senior Resident Care Director Goals Time Frame: Dec 22, 2022 Roll Left & Right (QC): 4 Sit to Lying (QC): 44 Lying-Sitting on Side/Bed(QC): 4 Sit to Stand (QC): 4 Chair/Bvu-ca-Tpzdr Xfer(QC): 4 Does the Patient Walk: No and Walking Goal IS indicated Walk 10 feet (QC): 3 PT Plan Problem List Problem List: Activity Tolerance, Functional Strength, Safety, Balance, Gait, Transfer, Bed Mobility, ROM Treatment/Plan Treatment Plan: Continue Plan of Care Treatment Plan: Bed Mobility, Education, Functional Activity Jeaneth, Functional Strength, Group Therapy, Gait, Safety, Therapeutic Exercise, Transfers Treatment Duration: Dec 22, 2022 Frequency: 6 times per week Estimated Hrs Per Day: .25 hour per day Patient and/or Family Agrees t: Yes Safety Risks/Education Patient Education: Gait Training, Transfer Techniques Teaching Recipient: Patient Teaching Methods: Demonstration, Discussion Response to Teaching: Verbalize Understanding, Return Demonstration Time Time In: 1048 Time Out: 1109 DATE: Nov 28, 2022 Total Billed Treatment Time: 21 Total Billed Treatment Visit, KARON CHAMPAGNE PT Nov 28, 2022 13:01
[2022-11-28 13:58] VITALS: BP 119/97
[2022-11-28] MEDS: ENOXAPARIN INJECTION 30 MG/0.3 ML SYR SC SCH (15:57)
--- NOTE | 2022-11-28 17:05 | Diagnostic Imaging Report ---
HISTORY: OG tube placement TECHNIQUE: Frontal view of the chest. COMPARISON: 11/28/2022 FINDINGS: The endotracheal tube is approximately 3.7 cm above the tyesha. The OG tube tip is not included on the axfmf-xu-ftoz, but the sidehole projects over the stomach. There are large lung volumes. There is a small right and moderate left pleural effusion with bibasilar atelectasis. No pneumothorax is seen. The cardiac silhouette appears stable in size. There is stable central vascular congestion. Multiple leads overlie the chest. IMPRESSION: 1. The tip of the OG tube is below the lgekd-ac-chue, but the sidehole projects over the stomach. 2. Bilateral pleural effusions, left greater than right, with associated atelectasis. Dictated by: Dictated on workstation # [id number]
[2022-11-28] MEDS ORDERED: METOCLOPRAMIDE INJ 10 MG/2 ML (REGLAN) IVP PRN (17:30)
[2022-11-28 19:05] VITALS: BP 140/95
[2022-11-28 23:16] VITALS: BP 145/95
[2022-11-29] VITALS (7 sets, daily range): BP systolic 95–147; BP diastolic 65–94
[2022-11-29] MEDS: fentaNYL DRIP PRE-MIX 250 ML IV SCH ×6 (01:35→23:01)
[2022-11-29] MEDS: methylPREDNISolone 40 MG/ML (Solu-MEDROL) VIAL IV SCH ×4 (03:13→21:32)
[2022-11-29] MEDS: LORazepam INJ 2 MG/ML (ATIVAN) VIAL IVP PRN ×4 (03:13→23:02)
[2022-11-29] MEDS: RT-ALBUTEROL/IPRATROPIUM 3 ML (DUONEB) VIAL INH SCH ×6 (03:35→22:49)
[2022-11-29 04:28] LABS: BASOPHILS % (AUTO) 0 % (0-10); EOSINOPHILS % (AUTO) 0 % (0-10); HEMATOCRIT 41 % (35-52); HEMOGLOBIN 12.9 g/dL (11.5-16.0); LYMPHOCYTES # (AUTO) 0.6 10^3/uL (1.0-4.0); LYMPHOCYTES % (AUTO) 5 % (12-44); MEAN CORPUSCULAR HEMOGLOBIN 28 pg (25-34); MEAN CORPUSCULAR HGB CONC 31 g/dL (32-36); MEAN CORPUSCULAR VOLUME 89 fL (80-99); MEAN PLATELET VOLUME 11.8 fL (9.0-12.2); MONOCYTES # (AUTO) 1.1 10^3/uL (0.0-1.0); MONOCYTES % (AUTO) 8 % (0-12); NEUTROPHILS # (AUTO) 11.2 10^3/uL (1.8-7.8); NEUTROPHILS % (AUTO) 86 % (42-75); PLATELET COUNT 270 10^3/uL (130-400)
[2022-11-29 04:55] LABS: ANISOCYTOSIS SLIGHT; BAND NEUTROPHILS 1 %; BASOPHILS % (MANUAL) 0 %; EOSINOPHILS % (MANUAL) 0 %; HYPOCHROMASIA SLIGHT; LYMPHOCYTES % (MANUAL) 7 %; MONOCYTES % (MANUAL) 5 %; NEUTROPHILS % (MANUAL) 87 %; TARGET CELLS SLIGHT
[2022-11-29 05:18] LABS: ALBUMIN 2.8 GM/DL (3.2-4.5); POTASSIUM 3.9 MMOL/L (3.6-5.0)
[2022-11-29 05:19] LABS: CALCIUM 8.8 MG/DL (8.5-10.1)
[2022-11-29 05:21] LABS: TOTAL PROTEIN 5.7 GM/DL (6.4-8.2)
[2022-11-29 05:22] LABS: BILIRUBIN,TOTAL 0.3 MG/DL (0.1-1.0)
[2022-11-29 05:24] LABS: CREATININE SERUM 0.73 MG/DL (0.60-1.30); PHOSPHORUS 3.3 MG/DL (2.3-4.7)
[2022-11-29] MEDS: POTASSIUM CL 10MEQ/50ML IVPB 50 ML IV SCH (05:30)
[2022-11-29] MEDS: KCL 20 MEQ TAB (K-DUR) PO SCH (05:38)
[2022-11-29] MEDS: hydrALAZINE (APESOLINE) 20 MG/ML VIAL IV PRN (05:53)
[2022-11-29] MEDS: MAGNESIUM 1 GM/100 ML IVPB 100 ML IV SCH (06:04)
[2022-11-29] MEDS: PROPOFOL DRIP (ICU) 100 ML IV SCH ×2 (06:04→17:45)
[2022-11-29] MEDS: RT-BUDESONIDE NEBS 0.5 MG/2ML (PULMICORT) AMP INH SCH ×2 (06:46→18:59)
[2022-11-29] MEDS: DexMEDEtomidine 250 ML DRIP 250 ML IV SCH (07:40)
[2022-11-29] MEDS: PANTOPRAZOLE 40 MG (PROTONIX) VIAL IV SCH (08:25)
[2022-11-29] MEDS: SENNOSIDES 8.6 MG (SENOKOT) TAB PO SCH ×2 (08:25→21:32)
[2022-11-29] MEDS: DOCUSATE SODIUM 10 MG/ML 10 ML UDC (COLACE) PO SCH ×2 (08:25→21:32)
--- NOTE | 2022-11-29 10:02 | Tele-ICU Progress Note ---
Subjective Date Seen by a Provider: Nov 29, 2022 Time Seen by a Provider: 10:01 Subjective/Events-last exam (Tele-ICU Physician , Progress Note ) Service provided via interactive audio and video telecommunications E-CARE system to a patient admitted to ICU bed in [facility]. Patient is seen today due to persistent need of ICU care Available chart/ vitals / labs / Images reviewed Video assessment done using teleICU camera, rest of exam as per RN Discussed with RN Events overnight : Afebrile hemodynamically stable Respiratory - 40 % I/O = pos Drips: Pressors- no VENT SETTINGS and ABG reviewed NOT CANDIDATE for SBTreviewed possible contraindications including Cardiovascular Stability /Sedation Score / FI02/PEEP / ABG / CXR/ secretions Sedation, discussed with RN, RASS 1 on fentanyl 300 prop 40 - precex 1.2 AAO Hospital course: 11/22 - ARF/PNA , failed BIPAP in ER , intubated , AC 20 300 ml 40 % peep 5 11/23- AC 20 420 ml 40 % peep 5 , RASS 1 on fentanyl 125 prop 30 - AAO- rr changed to 16 11/23- AC 16 420 ml 40 % peep 5 , RASS 1 on fentanyl 150 prop 45 - AAO, cxr better 11/24- SBT FAILED rr 17-23 TV 430 on fent 150 , propofol 10 - 45min increasing WOB and resp acidosis on ABG 11/26 - 45% , PAP up to 30s , ++ still secretions , propofol 60 , fent 250, ADDED SoluMEDSROL 40 q 8 11/26- SBT 45min, meet all required criteria, acceptable ABG , EXTUBATED , anxious and tachypneic -Was treated with ativan IV , dilaudid 0.5, precedex 1.6 , placed on BIPAP - which she tolerated very poorly -> taking mask off constantly , anxious and has very laboured respiration REINTUBATED 11/27 - precedex 1 , frent 250 , propofol 50 RASS +1 , -AC 20 420 ml 70 % peep 5 11/28- high residials on TF - stoppedd , reglan started prn 11/29- AC 20 420 ml 75% peep 8, reglan scheduled q 6 , RASS 1 on fentanyl 300 prop 40 - precex 1.2 AAO A/P Acute resp failure ( hypoxix and hypercarbic ) with PNA and AECOPD - intubated 11/22 ( failed BIPAP ) , EXtubated 11/26 with good SBT - very anxuois and WOB , failed BIPAP ( not keepin it on ) REINTUBATED 11/26 - AC 20 420 ml 75% peep 8 - RASS 1 on fentanyl 300 prop 40 - precex 1.2 AAO - PNA on left IMPROVED , , copious secretions - improved, Solumedrol added 11/26 due AECOPD - ? hupoxix level does not correlate with Fio2 - wWILL RECHECK DDIMER - ? NEED W/UP TO R/O PE PNA , LEFT with bacteremia 11/22 (1 with) + STREP PNEUMONIAE, sputum cx + STREP PNEUMONIAE - multiple allergies - started on vanco and merrem - off vanco - cxr significantly better . LEFT EFFUSION + , PNA IS MUCH BETTER Sepsis - cont IVF , not on pressors RAFIQ ( cr 1.4 on admission ) - resolved AECOPD - nebs - ADDED SoluMEDSROL 40 q 8 11/26 - with PAP rising from 16 to 30 COPD - not on chronic prednison - no pulm HTN on ECHO 2019 - 2 L NC INFORMATION CODER home malnutrition -was at goal glycerna - shortage of pulmicare) 11/22 - 11/28- high residials on TF - stoppedd , reglan started Chronic morphine use - pain syndrome with left AKA pain and abd pain with hernia - on fentanyl gtt now Lines : periph , (Central Line Necessity Reviewed) Grubbs: + OG: Nutrition: start pulmicare 11/22 Analgesia: Anxiety/ delirium VTE Prophylaxis: britt Stress Ulcer Prophylaxis: ppi Plans in collaboration with bedside consultants and IM MDs. Discussed with RN to reach out if any questions or concerns A total of 33 minutes of critical care time was devoted to this patient today, required to treat and/or prevent further deterioration of critical care condition ( as above ) . I am remotely monitoring this patient from another state. I am unable to do the bedside exam, and history/physical and pertinent information is taken from other notes in the computer and bedside staff. . Sepsis Event Evaluation Height, Weight, BMI Height: 5'1.00" Weight: 82lbs. 0.0oz. 37.012014pp; 17.25 BMI Method:Stated Exam Exam Patient acknowledged, consented, and participated in this virtual visit which was conducted using real time audio/video Vital Signs Date Time Temp Pulse Resp B/P (MAP) Pulse Ox O2 Delivery O2 Flow Rate FiO2 11/29/22 09:55 66 103/72 11/29/22 08:00 94 Mechanical Ventilator 75 11/29/22 07:40 66 103/72 11/29/22 07:00 67 11/29/22 07:00 67 20 93/59 (70) 96 Mechanical Ventilator 75.00 11/29/22 06:46 66 20 92 75 11/29/22 06:04 53 137/86 11/29/22 06:00 58 20 138/94 (109) 93 Mechanical Ventilator 75.00 11/29/22 05:45 53 137/86 11/29/22 05:00 51 20 160/101 (120) 91 Mechanical Ventilator 75.00 11/29/22 04:00 53 20 137/86 (103) 94 Mechanical Ventilator 75.00 11/29/22 04:00 88 Mechanical Ventilator 75 11/29/22 03:30 58 20 95 75 11/29/22 03:00 76 14 126/94 (105) 97 Mechanical Ventilator 75.00 11/29/22 02:00 91 20 127/87 (100) 93 Mechanical Ventilator 75.00 11/29/22 01:35 56 145/95 11/29/22 01:00 73 20 124/83 (97) 90 Mechanical Ventilator 75.00 11/29/22 01:00 73 11/29/22 00:17 36.6 11/29/22 00:00 65 19 135/86 (102) 90 Mechanical Ventilator 75.00 11/28/22 23:59 88 Mechanical Ventilator 75 11/28/22 23:16 56 20 90 75 11/28/22 23:00 58 19 146/92 (110) 90 Mechanical Ventilator 75.00 11/28/22 22:00 56 20 139/93 (108) 90 Mechanical Ventilator 75.00 11/28/22 21:00 65 20 131/86 (101) 90 Mechanical Ventilator 75.00 11/28/22 20:58 63 140/95 11/28/22 20:57 63 140/95 11/28/22 20:00 88 Mechanical Ventilator 70 11/28/22 20:00 62 19 136/91 (106) 89 Mechanical Ventilator 75.00 11/28/22 19:30 37.0 Mechanical Ventilator 75.00 11/28/22 19:05 63 20 89 70 11/28/22 19:00 63 11/28/22 19:00 61 20 140/95 (110) 90 Mechanical Ventilator 60.00 11/28/22 18:00 59 19 144/96 (112) 88 Mechanical Ventilator 60.00 11/28/22 17:00 59 19 130/87 (101) 87 Mechanical Ventilator 60.00 11/28/22 16:46 88 Mechanical Ventilator 70 11/28/22 16:36 62 125/80 11/28/22 16:00 62 20 125/80 (95) 90 Mechanical Ventilator 60.00 11/28/22 15:59 36.5 11/28/22 15:56 89 134/99 11/28/22 15:00 66 20 138/95 (109) 95 Mechanical Ventilator 60.00 11/28/22 14:30 89 134/99 11/28/22 14:30 89 134/99 11/28/22 14:00 89 19 134/99 (111) 94 Mechanical Ventilator 60.00 11/28/22 13:58 89 20 95 70 11/28/22 13:08 82 11/28/22 13:00 87 20 117/87 (97) 92 Mechanical Ventilator 60.00 11/28/22 12:32 84 139/95 11/28/22 12:22 36.2 11/28/22 12:15 92 Mechanical Ventilator 70 11/28/22 12:00 76 20 102/72 (82) 91 Mechanical Ventilator 60.00 11/28/22 11:00 88 22 120/75 (90) 91 Mechanical Ventilator 60.00 11/28/22 10:26 84 163/108 11/28/22 10:26 84 163/108 I & O 11/29/22 07:00 Intake Total 1160 ml Output Total 1570 ml Balance -410 ml Height & Weight Height: 5'1.00" Weight: 82lbs. 0.0oz. 37.262456qu; 17.25 BMI Method:Stated General Appearance: No Apparent Distress, Other (awake and on vent) HEENT: PERRL/EOMI, Other Respiratory: Lungs Clear, Other (on vent) Cardiovascular: Regular Rate, Rhythm, No Murmur Gastrointestinal: normal bowel sounds, soft, other (Patient has a large periumbilical hernia. There are some tenderness superior to this which she states is chronic.) Extremity: No Pedal Edema, Other (left BKA) Neurologic/Psychiatric: Alert, Oriented x3 Skin: Normal Color, Warm/Dry Results Lab Laboratory Tests 11/28/22 04:02 11/29/22 04:11 Assessment/Plan Assessment/Plan 1 EAGLE GANNON MD Nov 29, 2022 10:02
[2022-11-29 10:34] LABS: ABG BASE EXCESS 7.2 MMOL/L (-2.5-2.5); ABG OXYGEN SATURATION 92 % (94-100); ABG PCO2 45 MMHG (35-45); ABG PH 7.45 (7.37-7.43); ABG PO2 58 MMHG (79-93)
[2022-11-29 10:39] LABS: ALLENS TEST YES-POS; INSPIRED O2 75; PATIENT TEMP 35.8; VENTILATOR NO
[2022-11-29] MEDS: cefTRIAXone PRE-MIX 50 ML IV SCH (11:35)
--- NOTE | 2022-11-29 11:50 | Physical Therapy Daily Note ---
PT Daily Note-Current Subjective Patient agrees to PT. Pain Section J - Health Conditions 1. Rarely or not at all 2. Occasionally 3. Frequently 4. Almost constantly 8. Unable to answer Pain Effect on Sleep: 1 Pain Interference with Therapy: 1 Pain Interference w/Day-to-Day: 1 Transfers SCALE: Activities may be completed with or without assistive devices. 7-Kjdbgkddpl-gzgyuvn completes the activity by him/herself with no assistance from a helper. 5-Set-up or Clean-up Assistance-helper sets up or cleans up; patient completes activity. [place] assists only prior to or following the activity. 4-Supervision or Touching Assistance-helper provides verbal cues and/or touching/steadying and/or contact guard assistance as patient completes activity. Assistance may be provided throughout the activity or intermittently. 3-Partial/Moderate Assistance-helper does LESS THAN HALF the effort. [place] lifts, holds or supports trunk or limbs, but provides less than half the effort. 2-Substantial/Maximal Assistance-helper does MORE THAN HALF the effort. [place] lifts or holds trunk or limbs and provides more than half the effort. 1-Jmajwlltn-ukftuu does ALL the effort. Patient does none of the effort to complete the activity. Or, the assistance of 2 or more helpers is required for the patient to complete the activity. If activity was not attempted, code reason: 7-Patient Refused. 9-Not Applicable-not attempted and the patient did not perform the activity before the current illness, exacerbation or injury. 10-Not Attempted due to Environmental Limitations-(lack of equipment, weather restraints, etc.). 88-Not Attempted due to Medical Conditions or Safety Concerns. Weight Bearing Right Lower Extremity: Right Full Weight Bearing Left AKA 14 years ago Exercises Supine Ex: Ankle pumps, Quad Set, Heel Slides, Straight leg raise, Hip abd/add Supine Reps: 15 (x 2 sets AAROM due to weakness) Assessment Current Status: Poor Progress Patient remains in bed with needs met. PT to increase activity as tolerated by patient. PT Cabinet Professional Goals Cabinet Professional Goals PT Alf Goals Time Frame: Dec 22, 2022 Roll Left & Right (QC): 4 Sit to Lying (QC): 44 Lying-Sitting on Side/Bed(QC): 4 Sit to Stand (QC): 4 Chair/Sus-rk-Fpkka Xfer(QC): 4 Does the Patient Walk: No and Walking Goal IS indicated Walk 10 feet (QC): 3 PT Plan Treatment/Plan Treatment Plan: Continue Plan of Care Treatment Plan: Bed Mobility, Education, Functional Activity Jeaneth, Functional Strength, Group Therapy, Gait, Safety, Therapeutic Exercise, Transfers Treatment Duration: Dec 22, 2022 Frequency: 6 times per week Estimated Hrs Per Day: .25 hour per day Patient and/or Family Agrees t: Yes Time Time In: 1115 Time Out: 1124 DATE: Nov 29, 2022 Total Billed Treatment Time: 9 Total Billed Treatment 1 visit EX 9 min VICENTA RALPH PT Nov 29, 2022 11:50
--- NOTE | 2022-11-29 12:17 | Progress Note - Hospitalist ---
Subjective HPI/CC On Admission Date Seen by Provider: Nov 29, 2022 Cara Pruett is a 52 year old female with PMH COPD on home oxygen 3 L, anxiety, depression, alcohol abuse, tobacco abuse, who presented with shortness of breath. She is intubated and sedated. All history is obtained from the ER physician. Her son reported that she has been more short of breath the past few days. She was found by EMS with oxygen saturations in the 60s on her 3 L. She wa s placed on 15 L nonrebreather. She remained mildly hypoxic. She had an ABG that showed acute hypercapnia. She was placed on BIPAP. Her follow up ABG was worse and she was intubated. She is now admitted to the ICU. Subjective/Events-last exam Pt remains sedated and on the vent. Sleeping soundly. Appears comfortable. RN reports doing well. Objective Exam Vital Signs Vital Signs Date Time Temp Pulse Resp B/P (MAP) Pulse Ox O2 Delivery O2 Flow Rate FiO2 11/29/22 11:00 82 20 86/64 (71) 94 Mechanical Ventilator 75.00 11/29/22 10:28 75 11/29/22 00:17 36.6 Capillary Refill : General Appearance: No Apparent Distress, Chronically ill, Thin Respiratory: Lungs Clear, Other (on vent) Cardiovascular: Regular Rate, Rhythm, No Murmur Neurologic/Psychiatric: Alert, Oriented x3 Results/Procedures Lab Laboratory Tests 11/29/22 04:11 Patient resulted labs reviewed. Imaging: Reviewed Imaging Report Assessment/Plan Assessment and Plan Assess & Plan/Chief Complaint Acute on chronic respiratory failure with hypoxia and hypercapnia Pneumonia due to Strep pneumoniae Strep pneumoniae bacteremia Endotracheally intubated COPD Cachexia s/p intubation 11/22, extubated 11/26 and reintubated shortly after that day Increasing oxygen requirement May need to consider LTACH if unable to wean soon TeleICU following Sputum and blood culture with Strep pneumo Continue gentle IV fluids Tube feeds on hold due to higher residuals, resume as able Continue Rocephin DVT prophylaxis: Lovenox Severe sepsis, resolved Lactic acidosis, resolved Acute kidney injury, resolved Critical Care Ventilator Management LOLITA HODGSON MD Nov 29, 2022 12:17
[2022-11-29] MEDS ORDERED: NON-FORMULARY MEDICATION 1 EA EA (Gabapentin 800 MG) PO SCH (13:00)
[2022-11-29] MEDS: GABAPENTIN 400 MG (NEURONTIN) CAP PO SCH ×3 (13:12→21:32)
[2022-11-29] MEDS: METOCLOPRAMIDE INJ 10 MG/2 ML (REGLAN) IVP SCH ×3 (13:12→23:01)
[2022-11-29] MEDS ORDERED: NS 100 ML (IVPB) BAG IV ONE (15:45)
[2022-11-29] MEDS ORDERED: IOHEXOL 350 MG/ML 100 ML (OMNIPAQUE 350) VIAL IV ONE (15:45)
--- NOTE | 2022-11-29 16:09 | Diagnostic Imaging Report ---
PROCEDURE: CT angiography Chest. TECHNIQUE: After intravenous administration of contrast, thin section axial CT angiography of the chest was performed. 3D MIP reconstructions were made. All CT scans use one or more of the following dose optimizing techniques: Automated exposure control, MA and/or KvP adjustment based on a patient size and exam type, or iterative reconstruction. INDICATION: Acute respiratory failure. COMPARISON: 01/11/2021. FINDINGS: Vasculature: No pulmonary emboli. Unchanged dilated pulmonary trunk measuring 3.5 cm, and this can be seen in the setting of pulmonary hypertension. Mild ectasia of the ascending aorta measuring 3.8 cm is also unchanged. No aortic dissection. Heart and mediastinum: Atrophic thyroid. No supraclavicular, axillary, or intra-thoracic lymphadenopathy. The heart is normal in size without pericardial effusion. Pleura: Small bilateral pleural effusions. Lungs and airway: ET tube is well positioned with tip in the lower trachea. There are some retained secretions within the bilateral mainstem bronchi. Complete atelectasis of the left lower lobe due to mucus plugging. Upper abdomen: A moderate volume of ascites is noted. Musculoskeletal: No concerning osseous lesion. IMPRESSION: 1. No pulmonary emboli or acute aortic syndrome. 2. Unchanged dilated pulmonary trunk which can be seen in pulmonary hypertension. 3. Complete atelectasis of the left lower lobe due to mucus plugging. 4. Small bilateral pleural effusions. 5. Moderate ascites. Dictated by: Dictated on workstation # [id number]
[2022-11-29] MEDS: ENOXAPARIN INJECTION 30 MG/0.3 ML SYR SC SCH (16:45)
[2022-11-29] MEDS: aCETylcysteine 20% (MUCOMYST) 4 ML SOLN VIAL INH SCH (22:48)
[2022-11-30] MEDS: DexMEDEtomidine 250 ML DRIP 250 ML IV SCH ×2 (02:21→19:45)
[2022-11-30 02:54] VITALS: BP 143/97
[2022-11-30] MEDS: RT-ALBUTEROL/IPRATROPIUM 3 ML (DUONEB) VIAL INH SCH ×6 (02:54→22:01)
[2022-11-30] MEDS: PROPOFOL DRIP (ICU) 100 ML IV SCH ×2 (03:05→11:38)
[2022-11-30] MEDS: fentaNYL DRIP PRE-MIX 250 ML IV SCH ×5 (03:06→20:43)
[2022-11-30] MEDS: methylPREDNISolone 40 MG/ML (Solu-MEDROL) VIAL IV SCH ×4 (03:06→20:30)
[2022-11-30 04:25] LABS: BASOPHILS % (AUTO) 0 % (0-10); EOSINOPHILS % (AUTO) 0 % (0-10); HEMATOCRIT 43 % (35-52); HEMOGLOBIN 13.5 g/dL (11.5-16.0); LYMPHOCYTES # (AUTO) 0.2 10^3/uL (1.0-4.0); LYMPHOCYTES % (AUTO) 3 % (12-44); MEAN CORPUSCULAR HEMOGLOBIN 28 pg (25-34); MEAN CORPUSCULAR HGB CONC 31 g/dL (32-36); MEAN CORPUSCULAR VOLUME 88 fL (80-99); MEAN PLATELET VOLUME 11.6 fL (9.0-12.2); MONOCYTES # (AUTO) 0.5 10^3/uL (0.0-1.0); MONOCYTES % (AUTO) 6 % (0-12); NEUTROPHILS # (AUTO) 7.8 10^3/uL (1.8-7.8); NEUTROPHILS % (AUTO) 90 % (42-75); PLATELET COUNT 242 10^3/uL (130-400); WHITE BLOOD COUNT 8.6 10^3/uL (4.3-11.0)
[2022-11-30 04:47] LABS: ALBUMIN 2.7 GM/DL (3.2-4.5); POTASSIUM 3.4 MMOL/L (3.6-5.0)
[2022-11-30 04:48] LABS: CALCIUM 8.7 MG/DL (8.5-10.1)
[2022-11-30 04:49] LABS: TOTAL PROTEIN 5.4 GM/DL (6.4-8.2)
[2022-11-30 04:51] LABS: BILIRUBIN,TOTAL 0.2 MG/DL (0.1-1.0)
[2022-11-30 04:52] LABS: PHOSPHORUS 3.6 MG/DL (2.3-4.7)
[2022-11-30 04:53] LABS: CREATININE SERUM 0.67 MG/DL (0.60-1.30)
[2022-11-30 04:56] LABS: MAGNESIUM 1.8 MG/DL (1.6-2.4)
[2022-11-30] MEDS: MAGNESIUM 1 GM/100 ML IVPB 100 ML IV SCH ×3 (05:03→05:14)
[2022-11-30] MEDS: POTASSIUM CL 10MEQ/50ML IVPB 50 ML IV SCH ×5 (05:03→08:16)
[2022-11-30] MEDS: KCL 20 MEQ TAB (K-DUR) PO SCH (05:04)
[2022-11-30] MEDS ORDERED: POTASSIUM CL 10MEQ/50ML IVPB 200 ML IV ONE (05:06)
[2022-11-30] MEDS ORDERED: MAGNESIUM 1 GM/100 ML IVPB 200 ML IV ONE (05:07)
[2022-11-30] MEDS: METOCLOPRAMIDE INJ 10 MG/2 ML (REGLAN) IVP SCH ×3 (05:15→18:04)
[2022-11-30 06:47] VITALS: BP 111/84
[2022-11-30] MEDS: RT-BUDESONIDE NEBS 0.5 MG/2ML (PULMICORT) AMP INH SCH ×2 (06:54→21:14)
[2022-11-30] MEDS: aCETylcysteine 20% (MUCOMYST) 4 ML SOLN VIAL INH SCH ×2 (07:06→21:14)
[2022-11-30] MEDS: GABAPENTIN 400 MG (NEURONTIN) CAP PO SCH ×4 (08:15→20:30)
[2022-11-30] MEDS: LORazepam INJ 2 MG/ML (ATIVAN) VIAL IVP PRN ×2 (08:16→16:11)
[2022-11-30] MEDS: PANTOPRAZOLE 40 MG (PROTONIX) VIAL IV SCH (08:16)
[2022-11-30] MEDS: DOCUSATE SODIUM 10 MG/ML 10 ML UDC (COLACE) PO SCH ×2 (08:24→20:30)
[2022-11-30] MEDS: SENNOSIDES 8.6 MG (SENOKOT) TAB PO SCH ×2 (08:24→20:30)
--- NOTE | 2022-11-30 09:08 | Progress Note - Hospitalist ---
Subjective HPI/CC On Admission Date Seen by Provider: Nov 30, 2022 Cara Pruett is a 52 year old female with PMH COPD on home oxygen 3 L, anxiety, depression, alcohol abuse, tobacco abuse, who presented with shortness of breath. She is intubated and sedated. All history is obtained from the ER physician. Her son reported that she has been more short of breath the past few days. She was found by EMS with oxygen saturations in the 60s on her 3 L. She wa s placed on 15 L nonrebreather. She remained mildly hypoxic. She had an ABG that showed acute hypercapnia. She was placed on BIPAP. Her follow up ABG was worse and she was intubated. She is now admitted to the ICU. Subjective/Events-last exam Pt remains on the vent. Communicating through writing. We discussed possible LTCAH transfer and she shook her head no vigorously at this idea. She was unable to communicate why though in her writing. Informed her we would try to wean this weekend (today is Saturday) and if not able to need to consider LTACH more seriously Saturday. Objective Exam Vital Signs Vital Signs Date Time Temp Pulse Resp B/P (MAP) Pulse Ox O2 Delivery O2 Flow Rate FiO2 11/30/22 08:00 96 20 99/59 (71) 90 Mechanical Ventilator 75.00 11/30/22 06:47 75 11/30/22 04:00 36.6 Capillary Refill : General Appearance: Chronically ill, Thin Respiratory: No Crackles; Decreased Breath Sounds, Other (on vent) Cardiovascular: Regular Rate, Rhythm, No Murmur Gastrointestinal: Normal Bowel Sounds, Non Tender, Soft Neurologic/Psychiatric: Alert, Oriented x3 Results/Procedures Lab Laboratory Tests 11/30/22 03:54 Patient resulted labs reviewed. Imaging: Reviewed Imaging Report Assessment/Plan Assessment and Plan Assess & Plan/Chief Complaint Acute on chronic respiratory failure with hypoxia and hypercapnia Pneumonia due to Strep pneumoniae Strep pneumoniae bacteremia Endotracheally intubated COPD Cachexia s/p intubation 11/22, extubated 11/26 and reintubated shortly after that day May need to consider LTACH if unable to wean soon- patient adamantly declined today director of community services consulted, appreciate recs Consider early next week if not improvement TeleICU following Sputum and blood culture with Strep pneumo Continue IV fluids Tube feeds resumed Continue Rocephin DVT prophylaxis: Lovenox Severe sepsis, resolved Lactic acidosis, resolved Acute kidney injury, resolved Critical Care Ventilator Management LOLITA HODGSON MD Nov 30, 2022 09:08
--- NOTE | 2022-11-30 09:08 | Physical Therapy Daily Note ---
PT Daily Note-Current Subjective Patient lying supine in bed upon PT arrival, agreeable to treatment. Nursing requests administration of medicine prior to PT treatment. Pain Section J - Health Conditions 1. Rarely or not at all 2. Occasionally 3. Frequently 4. Almost constantly 8. Unable to answer Pain Effect on Sleep: 1 Pain Interference with Therapy: 1 Pain Interference w/Day-to-Day: 1 Transfers SCALE: Activities may be completed with or without assistive devices. 8-Bhhaxhkipa-isshvny completes the activity by him/herself with no assistance from a helper. 5-Set-up or Clean-up Assistance-helper sets up or cleans up; patient completes activity. Ketchum assists only prior to or following the activity. 4-Supervision or Touching Assistance-helper provides verbal cues and/or touching/steadying and/or contact guard assistance as patient completes activity. Assistance may be provided throughout the activity or intermittently. 3-Partial/Moderate Assistance-helper does LESS THAN HALF the effort. Ketchum lifts, holds or supports trunk or limbs, but provides less than half the effort. 2-Substantial/Maximal Assistance-helper does MORE THAN HALF the effort. Ketchum lifts or holds trunk or limbs and provides more than half the effort. 6-Rtnhmcmbz-owtqfr does ALL the effort. Patient does none of the effort to complete the activity. Or, the assistance of 2 or more helpers is required for the patient to complete the activity. If activity was not attempted, code reason: 7-Patient Refused. 9-Not Applicable-not attempted and the patient did not perform the activity before the current illness, exacerbation or injury. 10-Not Attempted due to Environmental Limitations-(lack of equipment, weather restraints, etc.). 88-Not Attempted due to Medical Conditions or Safety Concerns. 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 Assessment Current Status: Poor Progress, Regressing Patient initially awake and agreeable to treatment. After administration of medications, patient became very drowsy and was difficult to arouse. Patient received AAROM/PROM to BUEs and right LE x 20 all planes. Patient in bed post treatment with all needs met, nursing notified, call light in hand. PT Makeup Sales Advisor Goals Longterm Goals PT Longterm Goals Time Frame: Dec 22, 2022 Roll Left & Right (QC): 4 Sit to Lying (QC): 44 Lying-Sitting on Side/Bed(QC): 4 Sit to Stand (QC): 4 Chair/Kkh-ck-Oewtw Xfer(QC): 4 Does the Patient Walk: No and Walking Goal IS indicated Walk 10 feet (QC): 3 PT Plan Treatment/Plan Treatment Plan: Continue Plan of Care Treatment Plan: Bed Mobility, Education, Functional Activity Jeaneth, Functional Strength, Group Therapy, Gait, Safety, Therapeutic Exercise, Transfers Treatment Duration: Dec 22, 2022 Frequency: 6 times per week Estimated Hrs Per Day: .25 hour per day Patient and/or Family Agrees t: Yes Time Time In: 830 Time Out: 845 DATE: Nov 30, 2022 Total Billed Treatment Time: 15 Total Billed Treatment Visit, EX KARON DEL ROSARIO PT Nov 30, 2022 09:08
[2022-11-30 11:02] VITALS: BP 110/76
[2022-11-30] MEDS: cefTRIAXone PRE-MIX 50 ML IV SCH (11:33)
[2022-11-30] MEDS ORDERED: FUROSEMIDE 40 MG/4 ML INJ (LASIX) IVP NR (12:00)
--- NOTE | 2022-11-30 12:14 | Tele-ICU Progress Note ---
Subjective Date Seen by a Provider: Nov 30, 2022 Time Seen by a Provider: 12:12 Subjective/Events-last exam (Tele-ICU Physician , Progress Note ) Service provided via interactive audio and video telecommunications E-CARE system to a patient admitted to ICU bed in [facility]. Patient is seen today due to persistent need of ICU care Available chart/ vitals / labs / Images reviewed Video assessment done using teleICU camera, rest of exam as per RN Discussed with RN Events overnight : Afebrile hemodynamically stable Respiratory - 40 % I/O = pos Drips: Pressors- no VENT SETTINGS and ABG reviewed NOT CANDIDATE for SBTreviewed possible contraindications including Cardiovascular Stability /Sedation Score / FI02/PEEP / ABG / CXR/ secretions Sedation, discussed with RN, RASS 1 on fentanyl 300 prop 40 - precex 1.2 AAO Hospital course: 11/22 - ARF/PNA , failed BIPAP in ER , intubated , AC 20 300 ml 40 % peep 5 11/23- AC 20 420 ml 40 % peep 5 , RASS 1 on fentanyl 125 prop 30 - AAO- rr changed to 16 11/23- AC 16 420 ml 40 % peep 5 , RASS 1 on fentanyl 150 prop 45 - AAO, cxr better 11/24- SBT FAILED rr 17-23 TV 430 on fent 150 , propofol 10 - 45min increasing WOB and resp acidosis on ABG 11/26 - 45% , PAP up to 30s , ++ still secretions , propofol 60 , fent 250, ADDED SoluMEDSROL 40 q 8 11/26- SBT 45min, meet all required criteria, acceptable ABG , EXTUBATED , anxious and tachypneic -Was treated with ativan IV , dilaudid 0.5, precedex 1.6 , placed on BIPAP - which she tolerated very poorly -> taking mask off constantly , anxious and has very laboured respiration REINTUBATED 11/27 - precedex 1 , frent 250 , propofol 50 RASS +1 , -AC 20 420 ml 70 % peep 5 11/28- high residials on TF - stoppedd , reglan started prn 11/29- AC 20 420 ml 75% peep 8, reglan scheduled q 6 , RASS 1 on fentanyl 300 prop 40 - precex 1.2 AAO, CT chest - NO PE , Complete atelectasis LLL with mucus plugging- mucomist and chest PT added 11/30 -AC 20 420 ml 75% peep 8, reglan scheduled q 6 , RASS 1 on fentanyl 300 prop 40 - precex 1.2 AAO A/P Acute resp failure ( hypoxix and hypercarbic ) with PNA and AECOPD - intubated 11/22 ( failed BIPAP ) , EXtubated 11/26 with good SBT - very anxuois and WOB , failed BIPAP ( not keepin it on ) REINTUBATED 11/26 - AC 20 420 ml 75% peep 8 - RASS 1 on fentanyl 300 prop 40 - precex 1.2 AAO -Solumedrol added 11/26 due AECOPD - -11/29 CT chest - NO PE , Complete atelectasis LLL with mucus plugging- mucomist and chest PT added - CPM , WILL TRY DIURESE GENTLY IF BP TOLERATES PNA , LEFT with bacteremia 11/22 (12 with) + STREP PNEUMONIAE, sputum cx + STREP PNEUMONIAE - multiple allergies - started on vanco and merrem - off vanco --11/29 CT chest - NO PE , Complete atelectasis LLL with mucus plugging- mucomist and chest PT added Sepsis - cont IVF , not on pressors RAFIQ ( cr 1.4 on admission ) - resolved AECOPD - nebs - ADDED SoluMEDSROL 40 q 8 11/26 - with PAP rising from 16 to 30 COPD - not on chronic prednison - no pulm HTN on 2019 - 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 Discussed with RN to reach out if any questions or concerns A total of 33 minutes of critical care time was devoted to this patient today, required to treat and/or prevent further deterioration of critical care condition ( as above ) . I am remotely monitoring this patient from another state. I am unable to do the bedside exam, and history/physical and pertinent information is taken from other notes in the computer and bedside staff. . Sepsis Event Evaluation Height, Weight, BMI Height: 5'1.00" Weight: 82lbs. 0.0oz. 37.067804tx; 17.25 BMI Method:Stated Exam Exam Patient acknowledged, consented, and participated in this virtual visit which was conducted using real time audio/video Vital Signs Date Time Temp Pulse Resp B/P (MAP) Pulse Ox O2 Delivery O2 Flow Rate FiO2 11/30/22 12:00 79 19 110/78 (87) 91 Mechanical Ventilator 75.00 11/30/22 11:38 80 110/76 11/30/22 11:33 80 110/76 11/30/22 11:02 80 20 91 75 11/30/22 11:00 80 19 110/76 (85) 91 Mechanical Ventilator 75.00 11/30/22 10:00 86 20 100/66 (74) 90 Mechanical Ventilator 75.00 11/30/22 09:00 92 20 91/52 (62) 90 Mechanical Ventilator 75.00 11/30/22 08:00 93 Mechanical Ventilator 75 11/30/22 08:00 96 20 99/59 (71) 90 Mechanical Ventilator 75.00 11/30/22 07:23 68 111/84 11/30/22 07:06 96 99/59 11/30/22 07:05 96 99/59 11/30/22 07:00 68 20 110/84 (93) 95 Mechanical Ventilator 75.00 11/30/22 07:00 81 11/30/22 06:47 68 20 95 75 11/30/22 06:00 71 20 121/89 (100) 94 Mechanical Ventilator 75.00 11/30/22 05:00 74 19 139/94 (109) 92 Mechanical Ventilator 75.00 11/30/22 04:00 91 Mechanical Ventilator 75 11/30/22 04:00 73 20 143/93 (110) 92 Mechanical Ventilator 75.00 11/30/22 04:00 36.6 11/30/22 03:06 65 143/97 11/30/22 03:05 65 143/97 11/30/22 03:00 62 20 121/92 (102) 93 Mechanical Ventilator 75.00 11/30/22 02:54 65 20 92 75 11/30/22 02:21 55 132/91 11/30/22 02:00 61 19 136/94 (108) 92 Mechanical Ventilator 75.00 11/30/22 01:00 57 20 141/95 (110) 91 Mechanical Ventilator 75.00 11/30/22 01:00 60 11/30/22 00:00 57 20 139/98 (112) 91 Mechanical Ventilator 75.00 11/29/22 23:59 91 Mechanical Ventilator 75 11/29/22 23:01 55 132/91 11/29/22 23:00 54 20 144/95 (111) 91 Mechanical Ventilator 75.00 11/29/22 22:49 55 20 90 75 11/29/22 22:00 60 20 135/95 (108) 89 Mechanical Ventilator 75.00 11/29/22 21:00 58 19 135/98 (110) 90 Mechanical Ventilator 75.00 11/29/22 20:00 92 Mechanical Ventilator 75 11/29/22 20:00 36.8 11/29/22 20:00 62 19 135/95 (108) 90 Mechanical Ventilator 75.00 11/29/22 19:00 50 11/29/22 19:00 46 20 147/94 (111) 90 Mechanical Ventilator 75.00 11/29/22 18:59 47 20 90 75 11/29/22 18:50 47 147/94 11/29/22 18:45 50 138/86 11/29/22 18:00 50 20 138/86 (103) 90 Mechanical Ventilator 75.00 11/29/22 17:45 51 138/88 11/29/22 17:23 Mechanical Ventilator 75.00 11/29/22 17:00 51 20 138/88 (105) 91 Mechanical Ventilator 65.00 11/29/22 16:14 93 Mechanical Ventilator 75 11/29/22 16:00 72 16 105/93 (97) 93 Mechanical Ventilator 65.00 11/29/22 15:56 66 95 75 11/29/22 15:00 66 20 117/81 (93) 95 Mechanical Ventilator 65.00 11/29/22 14:51 66 20 95 75 11/29/22 14:40 Mechanical Ventilator 65.00 11/29/22 14:00 73 20 101/87 (92) 94 Mechanical Ventilator 75.00 11/29/22 13:55 72 105/93 11/29/22 13:00 67 19 96/68 (77) 89 Mechanical Ventilator 75.00 11/29/22 12:18 71 I & O 11/30/22 07:00 Intake Total 710 ml Output Total 1205 ml Balance -495 ml Height & Weight Height: 5'1.00" Weight: 82lbs. 0.0oz. 37.540027xn; 17.25 BMI Method:Stated General Appearance: Chronically ill, Thin HEENT: PERRL/EOMI, Other Respiratory: No Crackles; Decreased Breath Sounds, Other (on vent) Cardiovascular: Regular Rate, Rhythm, No Murmur Gastrointestinal: normal bowel sounds, soft, other (Patient has a large periumbilical hernia. There are some tenderness superior to this which she states is chronic.) Extremity: No Pedal Edema, Other (left BKA) Neurologic/Psychiatric: Alert, Oriented x3 Skin: Normal Color, Warm/Dry Results Lab Laboratory Tests 11/29/22 04:11 11/30/22 03:54 Assessment/Plan Assessment/Plan 1 EAGLE GANNON MD Nov 30, 2022 12:14
[2022-11-30] MEDS: morphine IMMEDIATE RELEASE 15 MG TABLET PO SCH ×2 (12:55→22:37)
[2022-11-30 14:55] VITALS: BP 87/54
[2022-11-30] MEDS ORDERED: ALBUMIN 25% 25 GM/100 ML 100 ML IV ONE (16:00)
[2022-11-30] MEDS: ENOXAPARIN INJECTION 30 MG/0.3 ML SYR SC SCH (16:12)
[2022-11-30 18:28] VITALS: BP 112/73
[2022-11-30 22:01] VITALS: BP 106/69
[2022-12-01] MEDS: PROPOFOL DRIP (ICU) 100 ML IV SCH (01:28)
[2022-12-01] MEDS: METOCLOPRAMIDE INJ 10 MG/2 ML (REGLAN) IVP SCH ×3 (01:28→11:57)
[2022-12-01 02:13] VITALS: BP 118/83
[2022-12-01] MEDS: RT-ALBUTEROL/IPRATROPIUM 3 ML (DUONEB) VIAL INH SCH ×6 (02:13→21:44)
[2022-12-01 03:48] LABS: BASOPHILS # (AUTO) 0.2 10^3/uL (0.0-0.1); BASOPHILS % (AUTO) 0 % (0-10); EOSINOPHILS % (AUTO) 0 % (0-10); HEMATOCRIT 45 % (35-52); HEMOGLOBIN 13.4 g/dL (11.5-16.0); LYMPHOCYTES # (AUTO) 0.2 10^3/uL (1.0-4.0); LYMPHOCYTES % (AUTO) 1 % (12-44); MEAN CORPUSCULAR HEMOGLOBIN 27 pg (25-34); MEAN CORPUSCULAR HGB CONC 30 g/dL (32-36); MEAN CORPUSCULAR VOLUME 91 fL (80-99); MEAN PLATELET VOLUME 11.8 fL (9.0-12.2); MONOCYTES % (AUTO) 3 % (0-12); NEUTROPHILS # (AUTO) 32.1 10^3/uL (1.8-7.8); NEUTROPHILS % (AUTO) 95 % (42-75); PLATELET COUNT 310 10^3/uL (130-400)
[2022-12-01 03:59] LABS: WHITE BLOOD COUNT 33.8 10^3/uL (4.3-11.0)
[2022-12-01 04:18] LABS: ALBUMIN 3.3 GM/DL (3.2-4.5); BILIRUBIN,TOTAL 0.2 MG/DL (0.1-1.0); CALCIUM 9.7 MG/DL (8.5-10.1); CREATININE SERUM 0.73 MG/DL (0.60-1.30); MAGNESIUM 2.2 MG/DL (1.6-2.4); POTASSIUM 3.8 MMOL/L (3.6-5.0)
[2022-12-01] MEDS: methylPREDNISolone 40 MG/ML (Solu-MEDROL) VIAL IV SCH ×4 (04:26→21:13)
[2022-12-01 04:33] LABS: BAND NEUTROPHILS 1 %; MONOCYTES % (MANUAL) 2 %; NEUTROPHILS % (MANUAL) 97 %
[2022-12-01 04:34] LABS: ANISOCYTOSIS SLIGHT; HYPOCHROMASIA SLIGHT; TOXIC GRANULATION/VACUOLAZATIO 1+
[2022-12-01] MEDS: POTASSIUM CL 10MEQ/50ML IVPB 50 ML IV SCH ×3 (04:57→07:22)
[2022-12-01] MEDS: KCL 20 MEQ TAB (K-DUR) PO SCH (04:58)
[2022-12-01] MEDS: MAGNESIUM 1 GM/100 ML IVPB 100 ML IV SCH (04:58)
[2022-12-01 05:54] LABS: ABG BASE EXCESS 4.2 MMOL/L (-2.5-2.5); ABG OXYGEN SATURATION 83 % (94-100); ABG PCO2 50 MMHG (35-45); ABG PH 7.38 (7.37-7.43); ABG PO2 48 MMHG (79-93); ABG TCO2 30.9 MMOL/L (21.0-31.0)
[2022-12-01 05:55] LABS: ALLENS TEST YES-POS; INSPIRED O2 50%; PATIENT TEMP 35.8; VENTILATOR YES
[2022-12-01] MEDS: RT-BUDESONIDE NEBS 0.5 MG/2ML (PULMICORT) AMP INH SCH ×2 (06:00→21:44)
[2022-12-01] MEDS: morphine IMMEDIATE RELEASE 15 MG TABLET PO SCH ×3 (06:08→21:11)
[2022-12-01] MEDS: fentaNYL DRIP PRE-MIX 250 ML IV SCH (06:24)
[2022-12-01] MEDS: GABAPENTIN 400 MG (NEURONTIN) CAP PO SCH ×4 (08:32→20:25)
[2022-12-01] MEDS: DOCUSATE SODIUM 10 MG/ML 10 ML UDC (COLACE) PO SCH ×2 (08:32→20:23)
[2022-12-01] MEDS: PANTOPRAZOLE 40 MG (PROTONIX) VIAL IV SCH (08:32)
[2022-12-01] MEDS: SENNOSIDES 8.6 MG (SENOKOT) TAB PO SCH ×2 (08:32→20:25)
--- NOTE | 2022-12-01 09:11 | Tele-ICU Progress Note ---
Progress Note 52 y/o female admitted with PNA On ceftriaxone Was intubated, then extubated to BIPAP, but failed and was reintubated Vent settings: 20/420/50%/6 PE: sitting bolt upright in bed, totally awake and alert and Betty, trying to communicate to RN around ET tube Pulse: 105 NSR BP: 115/89 O2 sat: 93% IMP: resp failure and PNA PLAN: attempt SBT and possible extubation if passes SBT I am remotely monitoring this patient from another state. I am unable to do the bedside exam, and history/physical and pertinent information is taken from other notes in the computer and bedside staff. Time spent in eval: 20 minutes Focused Exam Height, Weight, BMI Height: 5'1.00" Weight: 82lbs. 0.0oz. 37.513408dz; 17.25 BMI Method:Stated Results Results/Procedures Labs Laboratory Tests 11/30/22 03:54 12/01/22 03:16 Patient resulted labs reviewed. Imaging: Reviewed Imaging Report Results Labs Labs Laboratory Tests 11/30/22 13:51: Glucometer 148H 11/30/22 18:13: Glucometer 162H 12/01/22 01:27: Glucometer 109 12/01/22 03:16: White Blood Count 33.8*H, Red Blood Count 4.89, Hemoglobin 13.4, Hematocrit 45, Mean Corpuscular Volume 91, Mean Corpuscular Hemoglobin 27, Mean Corpuscular Hemoglobin Concent 30L, Red Cell Distribution Width 18.7H, Platelet Count 310, Mean Platelet Volume 11.8, Immature Granulocyte % (Auto) 1, Neutrophils (%) (Auto) 95H, Lymphocytes (%) (Auto) 1L, Monocytes (%) (Auto) 3, Eosinophils (%) (Auto) 0, Basophils (%) (Auto) 0, Neutrophils # (Auto) 32.1H, Lymphocytes # (Auto) 0.2L, Monocytes # (Auto) 1.0, Eosinophils # (Auto) 0.0, Basophils # (Auto) 0.2H, Immature Granulocyte # (Auto) 0.3H, Neutrophils % (Manual) 97, Monocytes % (Manual) 2, Band Neutrophils 1, Toxic Granulation 1+, Hypochromasia SLIGHT, Anisocytosis SLIGHT, Sodium Level 143, Potassium Level 3.8, Chloride Le cathy 105, Carbon Dioxide Level 24, Anion Gap 14, Blood Urea Nitrogen 23H, Creati nine 0.73, Estimat Glomerular Filtration Rate 98, BUN/Creatinine Ratio 32, Glucose Level 78, Calcium Level 9.7, Corrected Calcium 10.3H, Phosphorus Level 4.0, Magnesium Level 2.2, Total Bilirubin 0.2, Aspartate Amino Transf (AST/SGOT) 12, Alanine Aminotransferase (ALT/SGPT) 15, Alkaline Phosphatase 66, Total Protein 6.0L, Albumin 3.3 12/01/22 05:45: Blood Gas Puncture Site R RAD, Blood Gas Patient Temperature 35.8, Arterial Blood pH 7.38, Arterial Blood Partial Pressure CO2 50H, Arterial Blood Partial Pressure O2 48L, Arterial Blood HCO3 29H, Arterial Blood Total CO2 30.9, Arterial Blood Oxygen Saturation 83L, Arterial Blood Base Excess 4.2H, Marino Test YES-POS, Blood Gas Ventilator Setting YES, Blood Gas Inspired Oxygen 50% Microbiology 11/26/22 Gram Stain - Final, Resulted 11/26/22 Sputum Culture - Preliminary, Resulted Usual upper respiratory jerad 11/22/22 Urine Culture - Final, Complete NO GROWTH 11/22/22 Blood Culture - Final, Complete Streptococcus pneumoniae See Comments KRISS ADAMES MD Dec 01, 2022 09:11
[2022-12-01 10:31] LABS: HEMATOCRIT 44 % (35-52); HEMOGLOBIN 13.3 g/dL (11.5-16.0); MEAN CORPUSCULAR HEMOGLOBIN 27 pg (25-34); MEAN CORPUSCULAR HGB CONC 31 g/dL (32-36); MEAN CORPUSCULAR VOLUME 90 fL (80-99); MEAN PLATELET VOLUME 11.7 fL (9.0-12.2); PLATELET COUNT 323 10^3/uL (130-400); WHITE BLOOD COUNT 29.9 10^3/uL (4.3-11.0)
[2022-12-01] MEDS: aCETylcysteine 20% (MUCOMYST) 4 ML SOLN VIAL INH SCH ×2 (10:33→21:45)
[2022-12-01] MEDS: cefTRIAXone PRE-MIX 50 ML IV SCH (11:11)
--- NOTE | 2022-12-01 12:34 | Progress Note - Hospitalist ---
Subjective HPI/CC On Admission Date Seen by Provider: Dec 01, 2022 Cara Pruett is a 52 year old female with PMH COPD on home oxygen 3 L, anxiety, depression, alcohol abuse, tobacco abuse, who presented with shortness of breath. She is intubated and sedated. All history is obtained from the ER physician. Her son reported that she has been more short of breath the past few days. She was found by EMS with oxygen saturations in the 60s on her 3 L. She wa s placed on 15 L nonrebreather. She remained mildly hypoxic. She had an ABG that showed acute hypercapnia. She was placed on BIPAP. Her follow up ABG was worse and she was intubated. She is now admitted to the ICU. Subjective/Events-last exam Pt reports doing well. Is very awake and writing. States she is getting extubated today. She is down on PEEP and FiO2 so informed her we would defer to eICU regarding extubation but it looked promising. Objective Exam Vital Signs Vital Signs Date Time Temp Pulse Resp B/P (MAP) Pulse Ox O2 Delivery O2 Flow Rate FiO2 12/01/22 11:53 36.9 12/01/22 11:00 110 15 150/97 (114) 95 High Flow N/C 8.00 12/01/22 08:00 50 Capillary Refill : General Appearance: No Apparent Distress, Chronically ill, Thin Respiratory: Lungs Clear, Other (on vent) Cardiovascular: Regular Rate, Rhythm, No Murmur Neurologic/Psychiatric: Alert, Oriented x3 Results/Procedures Lab Laboratory Tests 12/01/22 03:16 12/01/22 10:25 Patient resulted labs reviewed. Imaging: Reviewed Imaging Report Assessment/Plan Assessment and Plan Assess & Plan/Chief Complaint Acute on chronic respiratory failure with hypoxia and hypercapnia Pneumonia due to Strep pneumoniae Strep pneumoniae bacteremia Endotracheally intubated COPD Cachexia s/p intubation 11/22, extubated 11/26 and reintubated shortly after that day Down on FiO2 and PEEP today- defer liberation to eICU but improving TeleICU following Sputum and blood culture with Strep pneumo Continue IV fluids Continue Rocephin PT/OT DVT prophylaxis: Lovenox Severe sepsis, resolved Lactic acidosis, resolved Acute kidney injury, resolved Critical Care Ventilator Management LOLITA HODGSON MD Dec 01, 2022 12:34 pm
--- NOTE | 2022-12-01 14:44 | Tele-ICU Progress Note ---
Progress Note placed on SBTthis am and did well Extubated without problems Saturating at 93% on O2 by nasal cannula Focused Exam Height, Weight, BMI Height: 5'1.00" Weight: 82lbs. 0.0oz. [id number]; 17.25 BMI Method:Stated Labs Laboratory Tests 12/01/22 03:16 12/01/22 10:25 Results Results/Procedures Labs Laboratory Tests 11/30/22 03:54 12/01/22 03:16 12/01/22 10:25 Patient resulted labs reviewed. Imaging: Reviewed Imaging Report Results Labs Labs Laboratory Tests 11/30/22 18:13: Glucometer 162H 12/01/22 01:27: Glucometer 109 12/01/22 03:16: White Blood Count 33.8*H, Red Blood Count 4.89, Hemoglobin 13.4, Hematocrit 45, Mean Corpuscular Volume 91, Mean Corpuscular Hemoglobin 27, Mean Corpuscular Hemoglobin Concent 30L, Red Cell Distribution Width 18.7H, Platelet Count 310, Mean Platelet Volume 11.8, Immature Granulocyte % (Auto) 1, Neutrophils (%) (Auto) 95H, Lymphocytes (%) (Auto) 1L, Monocytes (%) (Auto) 3, Eosinophils (%) (Auto) 0, Basophils (%) (Auto) 0, Neutrophils # (Auto) 32.1H, Lymphocytes # (Auto) 0.2L, Monocytes # (Auto) 1.0, Eosinophils # (Auto) 0.0, Basophils # (Auto) 0.2H, Immature Granulocyte # (Auto) 0.3H, Neutrophils % (Manual) 97, Monocytes % (Manual) 2, Band Neutrophils 1, Toxic Granulation 1+, Hypochromasia SLIGHT, Anisocytosis SLIGHT, Sodium Level 143, Potassium Level 3.8, Chloride Level 105, Carbon Dioxide Level 24, Anion Gap 14, Blood Urea Nitrogen 23H, Creatinine 0.73, Estimat Glomerular Filtration Rate 98, BUN/Creatinine Ratio 32, Glucose Level 78, Calcium Level 9.7, Corrected Calcium 10.3H, Phosphorus Level 4.0, Magnesium Level 2.2, Total Bilirubin 0.2, Aspartate Amino Transf (AST/SGOT) 12, Alanine Aminotransferase (ALT/SGPT) 15, Alkaline Phosphatase 66, Total Protein 6.0L, Albumin 3.3 12/01/22 05:45: Blood Gas Puncture Site R RAD, Blood Gas Patient Temperature 35.8, Arterial Blood pH 7.38, Arterial Blood Partial Pressure CO2 50H, Arterial Blood Partial Pressure O2 48L, Arterial Blood HCO3 29H, Arterial Blood Total CO2 30.9, Arterial Blood Oxygen Saturation 83L, Arterial Blood Base Excess 4.2H, Marino Test YES-POS, Blood Gas Ventilator Setting YES, Blood Gas Inspired Oxygen 50% 12/01/22 10:25: White Blood Count 29.9H, Red Blood Count 4.85, Hemoglobin 13.3, Hematocrit 44, Mean Corpuscular Volume 90, Mean Corpuscular Hemoglobin 27, Mean Corpuscular Hemoglobin Concent 31L, Red Cell Distribution Width 18.6H, Platelet Count 323, Mean Platelet Volume 11.7, Procalcitonin 0.22H Microbiology 11/26/22 Gram Stain - Final, Resulted 11/26/22 Sputum Culture - Preliminary, Resulted Usual upper respiratory jerad 11/22/22 Urine Culture - Final, Complete NO GROWTH 11/22/22 Blood Culture - Final, Complete Streptococcus pneumoniae See Comments Results Labs Labs Laboratory Tests 11/30/22 18:13: Glucometer 162H 12/01/22 01:27: Glucometer 109 12/01/22 03:16: White Blood Count 33.8*H, Red Blood Count 4.89, Hemoglobin 13.4, Hematocrit 45, Mean Corpuscular Volume 91, Mean Corpuscular Hemoglobin 27, Mean Corpuscular Hemoglobin Concent 30L, Red Cell Distribution Width 18.7H, Platelet Count 310, Mean Platelet Volume 11.8, Immature Granulocyte % (Auto) 1, Neutrophils (%) (Auto) 95H, Lymphocytes (%) (Auto) 1L, Monocytes (%) (Auto) 3, Eosinophils (%) (Auto) 0, Basophils (%) (Auto) 0, Neutrophils # (Auto) 32.1H, Lymphocytes # (Auto) 0.2L, Monocytes # (Auto) 1.0, Eosinophils # (Auto) 0.0, Basophils # (Auto) 0.2H, Immature Granulocyte # (Auto) 0.3H, Neutrophils % (Manual) 97, Monocytes % (Manual) 2, Band Neutrophils 1, Toxic Granulation 1+, Hypochromasia SLIGHT, Anisocytosis SLIGHT, Sodium Level 143, Potassium Level 3.8, Chloride Level 105, Carbon Dioxide Level 24, Anion Gap 14, Blood Urea Nitrogen 23H, Creatinine 0.73, Estimat Glomerular Filtration Rate 98, BUN/Creatinine Ratio 32, Glucose Level 78, Calcium Level 9.7, Corrected Calcium 10.3H, Phosphorus Level 4.0, Magnesium Level 2.2, Total Bilirubin 0.2, Aspartate Amino Transf (AST/SGOT) 12, Alanine Aminotransferase (ALT/SGPT) 15, Alkaline Phosphatase 66, Total Protein 6.0L, Albumin 3.3 12/01/22 05:45: Blood Gas Puncture Site R RAD, Blood Gas Patient Temperature 35.8, Arterial Blood pH 7.38, Arterial Blood Partial Pressure CO2 50H, Arterial Blood Partial Pressure O2 48L, Arterial Blood HCO3 29H, Arterial Blood Total CO2 30.9, Arterial Blood Oxygen Saturation 83L, Arterial Blood Base Excess 4.2H, Marino Test YES-POS, Blood Gas Ventilator Setting YES, Blood Gas Inspired Oxygen 50% 12/01/22 10:25: White Blood Count 29.9H, Red Blood Count 4.85, Hemoglobin 13.3, Hematocrit 44, Mean Corpuscular Volume 90, Mean Corpuscular Hemoglobin 27, Mean Corpuscular Hemoglobin Concent 31L, Red Cell Distribution Width 18.6H, Platelet Count 323, Mean Platelet Volume 11.7, Procalcitonin 0.22H Microbiology 11/26/22 Gram Stain - Final, Resulted 11/26/22 Sputum Culture - Preliminary, Resulted Usual upper respiratory jerad 11/22/22 Urine Culture - Final, Complete NO GROWTH 11/22/22 Blood Culture - Final, Complete Streptococcus pneumoniae See Comments KRISS ADAMES MD Dec 01, 2022 14:44
[2022-12-01] MEDS: ENOXAPARIN INJECTION 30 MG/0.3 ML SYR SC SCH (16:28)
[2022-12-01] MEDS: ACETAMINOPHEN 325 MG TABLET PO PRN (20:24)
[2022-12-01] MEDS: DexMEDEtomidine 250 ML DRIP 250 ML IV SCH (20:27)
[2022-12-01] MEDS: MELATONIN 3 MG TABLET PO PRN (21:11)
[2022-12-01] MEDS: LORazepam INJ 2 MG/ML (ATIVAN) VIAL IVP PRN (22:20)
[2022-12-02 00:27] VITALS: BP 154/97
[2022-12-02] MEDS: RT-ALBUTEROL/IPRATROPIUM 3 ML (DUONEB) VIAL INH SCH ×6 (02:29→22:37)
[2022-12-02] MEDS: methylPREDNISolone 40 MG/ML (Solu-MEDROL) VIAL IV SCH ×4 (04:40→20:43)
[2022-12-02] MEDS: ACETAMINOPHEN 325 MG TABLET PO PRN ×2 (04:40→19:33)
[2022-12-02 04:43] LABS: BASOPHILS % (AUTO) 0 % (0-10); EOSINOPHILS % (AUTO) 0 % (0-10); HEMATOCRIT 38 % (35-52); HEMOGLOBIN 11.6 g/dL (11.5-16.0); LYMPHOCYTES # (AUTO) 0.8 10^3/uL (1.0-4.0); LYMPHOCYTES % (AUTO) 7 % (12-44); MEAN CORPUSCULAR HEMOGLOBIN 28 pg (25-34); MEAN CORPUSCULAR HGB CONC 30 g/dL (32-36); MEAN CORPUSCULAR VOLUME 91 fL (80-99); MEAN PLATELET VOLUME 11.9 fL (9.0-12.2); MONOCYTES # (AUTO) 0.6 10^3/uL (0.0-1.0); MONOCYTES % (AUTO) 5 % (0-12); NEUTROPHILS # (AUTO) 10.3 10^3/uL (1.8-7.8); NEUTROPHILS % (AUTO) 87 % (42-75); PLATELET COUNT 279 10^3/uL (130-400); WHITE BLOOD COUNT 11.9 10^3/uL (4.3-11.0)
[2022-12-02 05:06] LABS: ALBUMIN 2.7 GM/DL (3.2-4.5); BILIRUBIN,TOTAL 0.2 MG/DL (0.1-1.0); CALCIUM 9.2 MG/DL (8.5-10.1); CREATININE SERUM 0.77 MG/DL (0.60-1.30); MAGNESIUM 1.8 MG/DL (1.6-2.4); PHOSPHORUS 2.8 MG/DL (2.3-4.7); POTASSIUM 4.4 MMOL/L (3.6-5.0); TOTAL PROTEIN 5.1 GM/DL (6.4-8.2)
[2022-12-02] MEDS: POTASSIUM CL 10MEQ/50ML IVPB 50 ML IV SCH (05:24)
[2022-12-02] MEDS: MAGNESIUM 1 GM/100 ML IVPB 100 ML IV SCH ×3 (05:25→06:36)
[2022-12-02] MEDS: KCL 20 MEQ TAB (K-DUR) PO SCH (05:25)
[2022-12-02] MEDS: morphine IMMEDIATE RELEASE 15 MG TABLET PO SCH ×3 (05:42→21:20)
[2022-12-02] MEDS: RT-BUDESONIDE NEBS 0.5 MG/2ML (PULMICORT) AMP INH SCH ×2 (07:00→22:37)
[2022-12-02] MEDS: DOCUSATE SODIUM 10 MG/ML 10 ML UDC (COLACE) PO SCH ×3 (08:33→20:46)
[2022-12-02] MEDS: GABAPENTIN 400 MG (NEURONTIN) CAP PO SCH ×4 (08:33→20:42)
[2022-12-02] MEDS: PANTOPRAZOLE 40 MG (PROTONIX) VIAL IV SCH (08:33)
[2022-12-02] MEDS: SENNOSIDES 8.6 MG (SENOKOT) TAB PO SCH ×2 (08:33→20:42)
--- NOTE | 2022-12-02 08:48 | Tele-ICU Progress Note ---
Subjective Date Seen by a Provider: Dec 02, 2022 Time Seen by a Provider: 08:43 Subjective/Events-last exam Service provided via interactive audio and video telecommunications E-CARE system to a patient admitted to ICU bed in [facility]. Patient is seen today due to persistent need of ICU care Available chart/ vitals / labs / Images reviewed Video assessment done using teleICU camera, rest of exam as per RN Discussed with RN 52 yo with COPD, now extubated-no stridor, on 10 l NC, with SpO2 in low 90's, CT chest form 11/29 shows no pul emb Remains on IV precedex-now off, steroids, albuterol, Rocephin, had strep pneumoniae in blood Sepsis Event Evaluation Height, Weight, BMI Height: 5'1.00" Weight: 82lbs. 0.0oz. 37.266985rw; 17.25 BMI Method:Stated Exam Exam Patient acknowledged, consented, and participated in this virtual visit which was conducted using real time audio/video Vital Signs Date Time Temp Pulse Resp B/P (MAP) Pulse Ox O2 Delivery O2 Flow Rate FiO2 12/02/22 07:15 37.4 12/02/22 06:00 76 32 168/100 (122) 90 High Flow N/C 10.00 12/02/22 05:55 37.0 High Flow N/C 10.00 12/02/22 05:00 77 19 157/104 (121) 90 High Flow N/C 8.00 12/02/22 04:00 90 High Flow N/C 8.00 12/02/22 04:00 78 19 144/94 (111) 91 High Flow N/C 8.00 12/02/22 03:00 78 16 142/94 (110) 90 High Flow N/C 8.00 12/02/22 02:29 92 High Flow N/C 9.00 12/02/22 02:00 78 18 141/89 (106) 93 High Flow N/C 8.00 12/02/22 01:01 82 12/02/22 01:00 80 18 131/86 (101) 92 High Flow N/C 8.00 12/02/22 00:31 37.5 12/02/22 00:27 98 154/97 12/02/22 00:00 86 16 124/81 (95) 90 High Flow N/C 8.00 12/01/22 23:59 92 High Flow N/C 8.00 12/01/22 23:00 89 18 134/80 (98) 93 High Flow N/C 8.00 12/01/22 22:00 92 20 149/96 (113) 97 High Flow N/C 8.00 12/01/22 21:48 96 High Flow N/C 8.00 12/01/22 21:00 93 27 138/89 (105) 97 High Flow N/C 8.00 12/01/22 20:27 98 154/97 12/01/22 20:00 102 16 160/91 (114) 95 High Flow N/C 8.00 12/01/22 20:00 98 High Flow N/C 8.00 12/01/22 19:27 98 12/01/22 19:15 37.7 96 20 154/97 (116) 93 High Flow N/C 8.00 12/01/22 19:00 99 19 154/97 (116) 92 High Flow N/C 8.00 12/01/22 18:52 High Flow N/C 9.00 12/01/22 18:00 107 21 150/93 (115) High Flow N/C 8.00 12/01/22 17:00 99 23 133/94 (102) High Flow N/C 8.00 12/01/22 16:00 96 High Flow N/C 8.00 12/01/22 16:00 101 19 141/86 (109) High Flow N/C 8.00 12/01/22 15:28 37.7 12/01/22 15:00 103 18 139/84 (103) 96 High Flow N/C 8.00 12/01/22 14:00 100 17 134/84 (98) 92 High Flow N/C 8.00 12/01/22 13:00 110 12/01/22 13:00 103 17 119/111 (117) 94 High Flow N/C 8.00 12/01/22 12:00 108 16 142/93 (116) 94 High Flow N/C 8.00 12/01/22 12:00 94 High Flow N/C 8.00 12/01/22 11:53 36.9 12/01/22 11:00 110 15 150/97 (114) 95 High Flow N/C 8.00 12/01/22 10:15 94 High Flow N/C 8.00 12/01/22 10:15 High Flow N/C 8.00 12/01/22 10:00 106 14 130/86 (105) 92 Mechanical Ventilator 50.00 12/01/22 09:00 105 19 117/82 (92) 93 Mechanical Ventilator 50.00 I & O 12/02/22 07:00 Intake Total 1480 ml Output Total 3175 ml Balance -1695 ml Height & Weight Height: 5'1.00" Weight: 82lbs. 0.0oz. 37.076012fu; 17.25 BMI Method:Stated General Appearance: No Apparent Distress, Chronically ill, Mild Distress, Thin HEENT: PERRL/EOMI, Other Respiratory: Lungs Clear, Rhonci, Other (on vent) Cardiovascular: Regular Rate, Rhythm, No Murmur Gastrointestinal: normal bowel sounds, soft, other (Patient has a large periumbilical hernia. There are some tenderness superior to this which she states is chronic.) Extremity: No Pedal Edema, Other (left BKA) Neurologic/Psychiatric: Alert, Oriented x3 Skin: Normal Color, Warm/Dry Results Lab Laboratory Tests 12/01/22 03:16 12/01/22 10:25 12/02/22 04:20 Assessment/Plan Assessment/Plan COPD, just extubated, will continue on pulm meds, abx, get CXR to investigate incrasing oxygen needs Critical Care: Critically Ill Patient Time spent with patient (mins): KRISS ARGUETA MD Dec 02, 2022 08:48
--- NOTE | 2022-12-02 09:04 | Diagnostic Imaging Report ---
INDICATION: Hypoxia. Comparison is made with prior exam of 11/28/2022. FINDINGS: Heart size is normal. There are bibasilar infiltrates. There are bilateral pleural effusions. No pneumothorax. Mediastinum is unremarkable. IMPRESSION: Bibasilar pulmonary infiltrates and bilateral pleural effusions. Dictated by: Dictated on workstation # [id number]
[2022-12-02] MEDS: aCETylcysteine 20% (MUCOMYST) 4 ML SOLN VIAL INH SCH (09:09)
[2022-12-02] MEDS: fentaNYL DRIP PRE-MIX 250 ML IV SCH (10:09)
[2022-12-02] MEDS: cefTRIAXone PRE-MIX 50 ML IV SCH (11:16)
--- NOTE | 2022-12-02 11:36 | Progress Note - Hospitalist ---
Subjective HPI/CC On Admission Date Seen by Provider: Dec 02, 2022 Cara Pruett is a 52 year old female with PMH COPD on home oxygen 3 L, anxiety, depression, alcohol abuse, tobacco abuse, who presented with shortness of breath. She is intubated and sedated. All history is obtained from the ER physician. Her son reported that she has been more short of breath the past few days. She was found by EMS with oxygen saturations in the 60s on her 3 L. She wa s placed on 15 L nonrebreather. She remained mildly hypoxic. She had an ABG that showed acute hypercapnia. She was placed on BIPAP. Her follow up ABG was worse and she was intubated. She is now admitted to the ICU. Subjective/Events-last exam Pt reports feeling much better. Talking to her on the phone. She is asking to go home. She was extubated yesterday and has not been out of bed yet. Discussed plan to transfer to stepdown and address functional status with hopefu l plan to DC home in the next 1-2 days. She seems agreeable but insistent that she will be going home "very soon." Objective Exam Vital Signs Vital Signs Date Time Temp Pulse Resp B/P (MAP) Pulse Ox O2 Delivery O2 Flow Rate FiO2 12/02/22 09:00 113 22 160/115 (132) 90 High Flow N/C 10.00 12/02/22 07:15 37.4 12/01/22 08:00 50 Capillary Refill : General Appearance: No Apparent Distress, Chronically ill, Cachetic Respiratory: Lungs Clear, No Accessory Muscle Use, Other (on 10lpm) Cardiovascular: Regular Rate, Rhythm, No Murmur Gastrointestinal: Normal Bowel Sounds, Non Tender, Soft Neurologic/Psychiatric: Alert, Oriented x3 Results/Procedures Lab Laboratory Tests 12/02/22 04:20 Patient resulted labs reviewed. Imaging: Reviewed Imaging Report Assessment/Plan Assessment and Plan Assess & Plan/Chief Complaint Acute on chronic respiratory failure with hypoxia and hypercapnia Pneumonia due to Strep pneumoniae Strep pneumoniae bacteremia Endotracheally intubated COPD Cachexia s/p intubation 11/22, extubated 11/26 and reintubated shortly after that day, again extubated on 12/01 and doing well TeleICU following Sputum and blood culture with Strep pneumo DC IVF Continue Rocephin PT/OT Transfer to stepdown DVT prophylaxis: Lovenox Severe sepsis, resolved Lactic acidosis, resolved Acute kidney injury, resolved Critical Care Critically Ill Patient LOLITA HODGSON MD Dec 02, 2022 11:36 am
[2022-12-02] MEDS: NICOTINE 21 MG (NICODERM) PATCH TD SCH (13:20)
[2022-12-02] MEDS: NICOTINE 14 MG (NICODERM) PATCH TD SCH (13:20)
[2022-12-02] MEDS: ENOXAPARIN INJECTION 30 MG/0.3 ML SYR SC SCH (15:46)
[2022-12-02] MEDS ORDERED: aCETylcysteine 20% (MUCOMYST) 4 ML SOLN VIAL INH PRN (17:45)
[2022-12-03] MEDS: LORazepam INJ 2 MG/ML (ATIVAN) VIAL IVP PRN ×2 (00:27→23:42)
[2022-12-03] MEDS: MELATONIN 3 MG TABLET PO PRN ×2 (01:33→20:17)
[2022-12-03] MEDS: methylPREDNISolone 40 MG/ML (Solu-MEDROL) VIAL IV SCH ×2 (02:58→15:48)
[2022-12-03] MEDS: RT-ALBUTEROL/IPRATROPIUM 3 ML (DUONEB) VIAL INH SCH ×5 (03:14→19:51)
[2022-12-03 05:20] LABS: BASOPHILS % (AUTO) 0 % (0-10); EOSINOPHILS % (AUTO) 0 % (0-10); HEMATOCRIT 47 % (35-52); HEMOGLOBIN 14.5 g/dL (11.5-16.0); LYMPHOCYTES # (AUTO) 0.5 10^3/uL (1.0-4.0); LYMPHOCYTES % (AUTO) 3 % (12-44); MEAN CORPUSCULAR HEMOGLOBIN 28 pg (25-34); MEAN CORPUSCULAR HGB CONC 31 g/dL (32-36); MEAN CORPUSCULAR VOLUME 90 fL (80-99); MEAN PLATELET VOLUME 11.2 fL (9.0-12.2); MONOCYTES # (AUTO) 0.6 10^3/uL (0.0-1.0); MONOCYTES % (AUTO) 4 % (0-12); NEUTROPHILS # (AUTO) 14.5 10^3/uL (1.8-7.8); NEUTROPHILS % (AUTO) 92 % (42-75); PLATELET COUNT 371 10^3/uL (130-400); WHITE BLOOD COUNT 15.7 10^3/uL (4.3-11.0)
[2022-12-03 05:38] LABS: ALBUMIN 3.3 GM/DL (3.2-4.5)
[2022-12-03 05:39] LABS: POTASSIUM 4.6 MMOL/L (3.6-5.0)
[2022-12-03] MEDS: POTASSIUM CL 10MEQ/50ML IVPB 50 ML IV SCH (05:39)
[2022-12-03] MEDS: MAGNESIUM 1 GM/100 ML IVPB 100 ML IV SCH (05:39)
[2022-12-03] MEDS: KCL 20 MEQ TAB (K-DUR) PO SCH (05:39)
[2022-12-03 05:40] LABS: CALCIUM 9.5 MG/DL (8.5-10.1)
[2022-12-03 05:41] LABS: TOTAL PROTEIN 6.3 GM/DL (6.4-8.2)
[2022-12-03 05:43] LABS: BILIRUBIN,TOTAL 0.5 MG/DL (0.1-1.0)
[2022-12-03 05:44] LABS: PHOSPHORUS 2.6 MG/DL (2.3-4.7)
[2022-12-03 05:45] LABS: CREATININE SERUM 0.85 MG/DL (0.60-1.30)
[2022-12-03] MEDS: morphine IMMEDIATE RELEASE 15 MG TABLET PO SCH ×3 (06:04→20:57)
[2022-12-03] MEDS: RT-BUDESONIDE NEBS 0.5 MG/2ML (PULMICORT) AMP INH SCH ×2 (07:46→21:59)
--- NOTE | 2022-12-03 08:06 | Physical Therapy Daily Note ---
PT Daily Note-Current Subjective Patient reports she wants to go home PAUL! Agrees to PT. Pain Section J - Health Conditions 1. Rarely or not at all 2. Occasionally 3. Frequently 4. Almost constantly 8. Unable to answer Pain Effect on Sleep: 1 Pain Interference with Therapy: 1 Pain Interference w/Day-to-Day: 1 Mental Status Patient Orientation: Person, Time, Situation Attachments: Oxygen (9-10L HF NC) Transfers SCALE: Activities may be completed with or without assistive devices. 5-Logozyrmns-mfcvtui completes the activity by him/herself with no assistance from a helper. 5-Set-up or Clean-up Assistance-helper sets up or cleans up; patient completes activity. [place] assists only prior to or following the activity. 4-Supervision or Touching Assistance-helper provides verbal cues and/or touching/steadying and/or contact guard assistance as patient completes activity. Assistance may be provided throughout the activity or intermittently. 3-Partial/Moderate Assistance-helper does LESS THAN HALF the effort. [place] lifts, holds or supports trunk or limbs, but provides less than half the effort. 2-Substantial/Maximal Assistance-helper does MORE THAN HALF the effort. [place] lifts or holds trunk or limbs and provides more than half the effort. 4-Yutnspkiy-rpofxf does ALL the effort. Patient does none of the effort to complete the activity. Or, the assistance of 2 or more helpers is required for the patient to complete the activity. If activity was not attempted, code reason: 7-Patient Refused. 9-Not Applicable-not attempted and the patient did not perform the activity before the current illness, exacerbation or injury. 10-Not Attempted due to Environmental Limitations-(lack of equipment, weather restraints, etc.). 88-Not Attempted due to Medical Conditions or Safety Concerns. Sit to Stand (QC): 2 (x 4 sets standing x 30 sec each) Weight Bearing Right Lower Extremity: Right Full Weight Bearing Left AKA 14 years ago Exercises Supine Ex: Ankle pumps, Quad Set, Heel Slides, Straight leg raise, Hip abd/add Supine Reps: 15 (right LE) Seated Therapy Exercises: Long arc quads Seated Reps: 15 Assessment Patient tolerated treatment and remains up in recliner with needs met. Patient requires redirection to remain on task. Patient is currently max assist with sit to stand transfers. PT to increase activity as tolerated by patient. PT Half-Way Goals Fitness Professional Goals PT Half-Way Goals Time Frame: Dec 22, 2022 Roll Left & Right (QC): 4 Sit to Lying (QC): 44 Lying-Sitting on Side/Bed(QC): 4 Sit to Stand (QC): 4 Chair/Brz-ny-Njhdj Xfer(QC): 4 Does the Patient Walk: No and Walking Goal IS indicated Walk 10 feet (QC): 3 PT Plan Treatment/Plan Treatment Plan: Continue Plan of Care Treatment Plan: Bed Mobility, Education, Functional Activity Jeaneth, Functional Strength, Group Therapy, Gait, Safety, Therapeutic Exercise, Transfers Treatment Duration: Dec 22, 2022 Frequency: 6 times per week Estimated Hrs Per Day: .25 hour per day Patient and/or Family Agrees t: Yes Time Time In: 740 Time Out: 803 DATE: Dec 03, 2022 Total Billed Treatment Time: 23 Total Billed Treatment 1 visit EX x 2 23 min VICENTA RALPH PT Dec 03, 2022 08:06
[2022-12-03] MEDS: GABAPENTIN 400 MG (NEURONTIN) CAP PO SCH ×4 (08:07→20:17)
[2022-12-03] MEDS: amLODIPine 5 MG (NORVASC) TAB PO SCH (08:08)
[2022-12-03] MEDS: SENNOSIDES 8.6 MG (SENOKOT) TAB PO SCH ×2 (08:08→20:17)
[2022-12-03] MEDS: DOCUSATE SODIUM 10 MG/ML 10 ML UDC (COLACE) PO SCH ×2 (08:10→20:19)
[2022-12-03] MEDS: NICOTINE 14 MG (NICODERM) PATCH TD SCH (08:10)
[2022-12-03] MEDS: NICOTINE 21 MG (NICODERM) PATCH TD SCH (08:10)
[2022-12-03] MEDS: PANTOPRAZOLE 40 MG (PROTONIX) VIAL IV SCH (08:10)
[2022-12-03] MEDS: NICOTINE PATCH REMOVAL TP SCH (08:11)
[2022-12-03] MEDS: cefTRIAXone PRE-MIX 50 ML IV SCH (10:35)
[2022-12-03] MEDS: ENOXAPARIN INJECTION 30 MG/0.3 ML SYR SC SCH (15:48)
--- NOTE | 2022-12-03 16:46 | Progress Note - Hospitalist ---
Subjective HPI/CC On Admission Date Seen by Provider: Dec 03, 2022 Time Seen by Provider: 10:40 Cara Pruett is a 52 year old female with PMH COPD on home oxygen 3 L, anxiety, depression, alcohol abuse, tobacco abuse, who presented with shortness of breath. She is intubated and sedated. All history is obtained from the ER physician. Her son reported that she has been more short of breath the past few days. She was found by EMS with oxygen saturations in the 60s on her 3 L. She was placed on 15 L nonrebreather. She remained mildly hypoxic. She had an ABG that showed acute hypercapnia. She was placed on BIPAP. Her follow up ABG was worse and she was intubated. She is now admitted to the ICU. Subjective/Events-last exam She is feeling better. She wants to go home. We discussed her high oxygen requirement. She continued to insist on going home. We discussed that she would benefit from another day in the hospital. She did not want to stay. We discussed her goals of care due to her being so intent on going home. She would like to enroll in hospice. She does not want to come back and forth to the hospital. She says she has caregivers at home. Objective Exam Vital Signs Vital Signs Date Time Temp Pulse Resp B/P (MAP) Pulse Ox O2 Delivery O2 Flow Rate FiO2 12/03/22 16:34 37.2 12/03/22 14:41 91 High Flow N/C 6.00 12/03/22 07:17 116 12/03/22 00:00 18 166/112 (130) 12/01/22 08:00 50 Capillary Refill : Less Than 3 Seconds General Appearance: No Apparent Distress, Chronically ill, Thin Respiratory: No Respiratory Distress, Decreased Breath Sounds Cardiovascular: No Murmur, Tachycardia Gastrointestinal: Normal Bowel Sounds, Soft Extremity: Normal Inspection, No Pedal Edema Neurologic/Psychiatric: Alert, Motor Weakness Skin: Warm/Dry, Pallor Results/Procedures Lab Laboratory Tests 12/03/22 05:12 Patient resulted labs reviewed. Imaging: Reviewed Imaging Report Assessment/Plan Assessment and Plan Assess & Plan/Chief Complaint Acute on chronic respiratory failure with hypoxia and hypercapnia Pneumonia due to Strep pneumoniae Strep pneumoniae bacteremia End stage COPD Cachexia Goals of care discussion Extubated 12/01, now on 10 L nasal cannula Sputum and blood cultures with Strep pneumo Continue Rocephin Consult palliative care DVT prophylaxis: Lovenox Severe sepsis, resolved Lactic acidosis, resolved Acute kidney injury, resolved Endotracheally intubated, resolved Diagnosis/Problems Diagnosis/Problems (1) Acute on chronic respiratory failure with hypoxia and hypercapnia Status: Acute (2) Severe sepsis Status: Resolved Resolution Date/Time: 11/24/22 @ 12:01 (3) Pneumonia Status: Acute Qualifiers: Pneumonia type: due to Pneumococcus Laterality: bilateral Lung location: unspecified part of lung Qualified Codes: J13 - Pneumonia due to Streptococcus pneumoniae (4) Bacteremia due to Streptococcus pneumoniae Status: Acute (5) RAFIQ (acute kidney injury) Status: Resolved Resolution Date/Time: 11/24/22 @ 12:01 (6) Lactic acidosis Status: Resolved Resolution Date/Time: 11/24/22 @ 12:01 (7) 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
[2022-12-04] MEDS: RT-ALBUTEROL/IPRATROPIUM 3 ML (DUONEB) VIAL INH SCH ×3 (02:28→10:36)
[2022-12-04] MEDS: POTASSIUM CL 10MEQ/50ML IVPB 50 ML IV SCH (03:37)
[2022-12-04] MEDS: methylPREDNISolone 40 MG/ML (Solu-MEDROL) VIAL IV SCH (03:39)
[2022-12-04] MEDS: morphine IMMEDIATE RELEASE 15 MG TABLET PO SCH (05:44)
[2022-12-04 06:11] LABS: CALCIUM 9.1 MG/DL (8.5-10.1); CREATININE SERUM 0.81 MG/DL (0.60-1.30); MAGNESIUM 1.6 MG/DL (1.6-2.4); POTASSIUM 4.6 MMOL/L (3.6-5.0)
[2022-12-04] MEDS: KCL 20 MEQ TAB (K-DUR) PO SCH (06:18)
[2022-12-04] MEDS: MAGNESIUM 1 GM/100 ML IVPB 100 ML IV SCH ×5 (06:19→09:37)
[2022-12-04] MEDS: RT-BUDESONIDE NEBS 0.5 MG/2ML (PULMICORT) AMP INH SCH (06:51)
--- NOTE | 2022-12-04 07:57 | Physical Therapy Daily Note ---
PT Daily Note-Current Subjective Patient agrees to PT. Patient continues to voice she wants to go home today. Pain Section J - Health Conditions 1. Rarely or not at all 2. Occasionally 3. Frequently 4. Almost constantly 8. Unable to answer Pain Effect on Sleep: 1 Pain Interference with Therapy: 1 Pain Interference w/Day-to-Day: 1 Mental Status Patient Orientation: Person, Time, Situation Attachments: Oxygen, Grubbs Catheter, IV Transfers SCALE: Activities may be completed with or without assistive devices. 2-Itxeehvfju-tvpdkrr completes the activity by him/herself with no assistance from a helper. 5-Set-up or Clean-up Assistance-helper sets up or cleans up; patient completes a ctivity. [place] assists only prior to or following the activity. 4-Supervision or Touching Assistance-helper provides verbal cues and/or touching/steadying and/or contact guard assistance as patient completes activity. Assistance may be provided throughout the activity or intermittently. 3-Partial/Moderate Assistance-helper does LESS THAN HALF the effort. [place] lifts, holds or supports trunk or limbs, but provides less than half the effort. 2-Substantial/Maximal Assistance-helper does MORE THAN HALF the effort. [place] lifts or holds trunk or limbs and provides more than half the effort. 8-Akndaveja-riykgu does ALL the effort. Patient does none of the effort to complete the activity. Or, the assistance of 2 or more helpers is required for the patient to complete the activity. If activity was not attempted, code reason: 7-Patient Refused. 9-Not Applicable-not attempted and the patient did not perform the activity before the current illness, exacerbation or injury. 10-Not Attempted due to Environmental Limitations-(lack of equipment, weather restraints, etc.). 88-Not Attempted due to Medical Conditions or Safety Concerns. 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 Patient much improved on this date with sit to stand transfer to FWW. SW updated PT Polisher Balance Screwhead Goals Usp Goals PT Usp Goals Time Frame: Dec 22, 2022 Roll Left & Right (QC): 4 Sit to Lying (QC): 44 Lying-Sitting on Side/Bed(QC): 4 Sit to Stand (QC): 4 Chair/Vim-mj-Yfgfy Xfer(QC): 4 Does the Patient Walk: No and Walking Goal IS indicated Walk 10 feet (QC): 3 PT Plan Treatment/Plan Treatment Plan: Continue Plan of Care Treatment Plan: Bed Mobility, Education, Functional Activity Jeaneth, Functional Strength, Group Therapy, Gait, Safety, Therapeutic Exercise, Transfers Treatment Duration: Dec 22, 2022 Frequency: 6 times per week Estimated Hrs Per Day: .25 hour per day Patient and/or Family Agrees t: Yes Time Time In: 700 Time Out: 723 DATE: Dec 04, 2022 Total Billed Treatment Time: 23 Total Billed Treatment 1 visit EX x 2 23 min VICENTA RALPH PT Dec 04, 2022 07:57
[2022-12-04] MEDS: NICOTINE 21 MG (NICODERM) PATCH TD SCH (09:04)
[2022-12-04] MEDS: PANTOPRAZOLE 40 MG (PROTONIX) VIAL IV SCH (09:04)
[2022-12-04] MEDS: NICOTINE 14 MG (NICODERM) PATCH TD SCH (09:04)
[2022-12-04] MEDS: NICOTINE PATCH REMOVAL TP SCH (09:05)
[2022-12-04] MEDS: DOCUSATE SODIUM 10 MG/ML 10 ML UDC (COLACE) PO SCH (09:05)
[2022-12-04] MEDS: GABAPENTIN 400 MG (NEURONTIN) CAP PO SCH (09:05)
[2022-12-04] MEDS: SENNOSIDES 8.6 MG (SENOKOT) TAB PO SCH (09:05)
[2022-12-04] MEDS: amLODIPine 5 MG (NORVASC) TAB PO SCH (09:05)
[2022-12-04] MEDS: cefTRIAXone PRE-MIX 50 ML IV SCH (10:33)
[2022-12-04] MEDS ORDERED: AMLO-250 PO (10:59)
[2022-12-04] MEDS ORDERED: LORA2ORA PO (10:59)
[2022-12-04] MEDS ORDERED: GABA800T10 PO (10:59)
[2022-12-04] MEDS ORDERED: MORP100S7 PO (10:59)
[2022-12-04] MEDS ORDERED: MORP-69 PO (10:59)
--- NOTE | 2022-12-04 18:50 | Discharge Summary ---
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 (8) Endotracheally intubated Status: Resolved (9) Goals of care, counseling/discussion Status: Acute Hospital Course Date of Admission: Nov 22, 2022 at 14:49 Admission Diagnosis : Severe sepsis due to pneumonia Family Physician/Provider: Adi Singleton MD Date of Discharge: 12/04/22 Discharge Diagnosis: Severe sepsis due to Strep pneumoniae pneumonia and bacteremia, acute on chronic respiratory failure with hypoxia requiring endotracheal intubation, end stage COPD Hospital Course: Cara Pruett is a 52 year old female with PMH COPD, chronic respiratory failure with hypoxia, who was admitted with severe sepsis due to pneumonia. She had acute on chronic respiratory failure and required endotracheal intubation. Her blood cultures returned positive for Strep pneumoniae. She was treated with a course of IV antibiotics. She had trouble getting off the ventilator. She had to be reintubated after a failed extubation attempt. She improved but still had high oxygen requirements. She wanted to return home. We discussed her options and she wanted to pursue hospice care. She was discharged home on hospice. Labs and Pending Lab Test: Laboratory Tests 12/04/22 05:32: Sodium Level 140, Potassium Level 4.6, Chloride Level 101, Carbon Dioxide Level 30, Anion Gap 9, Blood Urea Nitrogen 26H, Creatinine 0.81, Estimat Glomerular Filtration Rate 86, BUN/Creatinine Ratio 32, Glucose Level 88, Calcium Level 9.1, Magnesium Level 1.6 Microbiology 11/26/22 Gram Stain - Final, Resulted 11/26/22 Sputum Culture - Preliminary, Resulted Usual upper respiratory jerad 11/22/22 Urine Culture - Final, Complete NO GROWTH 11/22/22 Blood Culture - Final, Complete Streptococcus pneumoniae See Comments Home Meds Active Lorazepam Intensol (Lorazepam) 2 Mg/Ml Oral.conc 2 Mg PO Q2H PRN Morphine Conc. 20mg/ml (Morphine Sulfate) 100 Mg/5 Ml (20 Mg/Ml) Solution 10 Mg PO Q2H PRN 7 Days Amlodipine Besylate 5 Mg Tablet 10 Mg PO DAILY 30 Days Gabapentin 800 Mg Tablet 800 Mg PO QID 30 Days Morphine Sulfate ER (Morphine Sulfate) 30 Mg Tablet.er 15 Mg PO Q8H PRN 14 Days TAKES 1/2 OF A 30MG TAB Reported Ventolin Hfa (Albuterol Sulfate) 90 Mcg Hfa.aer.ad 2 Puff INH Q6H PRN Advair Hfa 115-21 Mcg Inhaler (Fluticasone/Salmeterol) 115 Mcg-21 Mcg/Actuation Hfa.aer.ad 2 Puff INH BID Pantoprazole Sodium 40 Mg Tablet.dr 40 Mg PO DAILY Trelegy Ellipta 100-62.5-25 (Fluticasone/Umeclidin/Vilanter) 100-62.5 Blst.w.dev 1 Puff INH DAILY Ondansetron HCl 8 Mg Tablet 8 Mg PO Q8H PRN Assessment/Pt Instructions See instructions Discharge Planning: >30 minutes discharge planning Discharge Instructions Discharge Diet: No Restrictions Activity as Tolerated: Yes Discharge Physical Examination Vital Signs Vital Signs Date Time Temp Pulse Resp B/P (MAP) Pulse Ox O2 Delivery O2 Flow Rate FiO2 12/04/22 11:40 12/04/22 10:40 91 High Flow N/C 6.00 12/04/22 08:01 36.6 99 18 12/01/22 08:00 50 General Appearance: No Apparent Distress, Chronically ill, Cachetic Respiratory: No Respiratory Distress, Decreased Breath Sounds Cardiovascular: No Murmur, Tachycardia Gastrointestinal: Normal Bowel Sounds, Soft Extremity: No Pedal Edema, Other (left BKA) Skin: Warm/Dry, Pallor Neurologic/Psychiatric: Alert, No Motor/Sensory Deficits Allergies: Coded Allergies: ofloxacin (Verified Allergy, Mild, 02/04/19) Penicillins (Verified Allergy, Unknown, Pt has received Ceftriaxone & Cefepime in the past w/o issue, 02/04/19) amoxicillin (Verified Allergy, Unknown, 02/04/19) clavulanic acid (Verified Allergy, Unknown, 02/04/19) promethazine (Verified Allergy, Unknown, 02/04/19) propoxyphene (Verified Allergy, Unknown, 02/04/19) ketorolac (Verified Adverse Reaction, Unknown, 11/08/17) tramadol (Verified Adverse Reaction, Unknown, 3/16/18) Discharge Summary Date of Admission Nov 22, 2022 at 14:49 Date of Discharge Dec 04, 2022 at 11:40 Discharge Date: Dec 04, 2022 Discharge Time: 11:40 Admission Diagnosis Acute on chronic respiratory failure with hypoxia and hypercapnia Discharge Diagnosis Acute on chronic respiratory failure with hypoxia and hypercapnia Pneumonia due to Strep pneumoniae Strep pneumoniae bacteremia End stage COPD Cachexia Goals of care discussion Severe sepsis, resolved Lactic acidosis, resolved Acute kidney injury, resolved Endotracheally intubated, resolved (1) Acute on chronic respiratory failure with hypoxia and hypercapnia Status: Acute (2) Severe sepsis Status: Resolved (3) Pneumonia Status: Acute Qualifiers: Qualified Codes: J13 - Pneumonia due to Streptococcus pneumoniae (4) Bacteremia due to Streptococcus pneumoniae Status: Acute (5) RAFIQ (acute kidney injury) Status: Resolved (6) Lactic acidosis Status: Resolved (7) 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
== END 2022-12-04 11:40 | disposition hospice, home (50) | DRG 870 ==
LOC: EDUNIT# 12:05 → ER 12:06 → ICU 14:49 → CSD 12-02 11:11
PROVIDERS: ADMIT Internal Medicine; ATTEND Internal Medicine
PROC: 0BH17EZ Insertion of Endotracheal Airway into Trachea, Via Natural or Artificial Opening (ICD-10-PCS; 2022-11-22)
PROC: 5A1955Z Respiratory Ventilation, Greater than 96 Consecutive Hours (ICD-10-PCS; principal; 2022-11-26)
PROC: 5A09357 Assistance with Respiratory Ventilation, Less than 24 Consecutive Hours, Continuous Positive Airway Pressure (ICD-10-PCS; 2022-11-26)
PROC: 5A0945A Assistance with Respiratory Ventilation, 24-96 Consecutive Hours, High Flow/Velocity Cannula (ICD-10-PCS; 2022-12-01)
DX: A40.3 Sepsis due to Streptococcus pneumoniae (principal); J13 Pneumonia due to Streptococcus pneumoniae; R65.20 Severe sepsis without septic shock; J96.22 Acute and chronic respiratory failure with hypercapnia; J96.21 Acute and chronic respiratory failure with hypoxia; N17.9 Acute kidney failure, unspecified; E46 Unspecified protein-calorie malnutrition; Z68.1 Body mass index [BMI] 19.9 or less, adult; R64 Cachexia; E87.20 Acidosis, unspecified; I10 Essential (primary) hypertension; J43.9 Emphysema, unspecified; Z99.81 Dependence on supplemental oxygen; F17.210 Nicotine dependence, cigarettes, uncomplicated; F10.20 Alcohol dependence, uncomplicated; F41.9 Anxiety disorder, unspecified; F32.A Depression, unspecified; K42.9 Umbilical hernia without obstruction or gangrene; Z89.512 Acquired absence of left leg below knee; Z88.1 Allergy status to other antibiotic agents; Z88.0 Allergy status to penicillin; Z91.09 Other allergy status, other than to drugs and biological substances; Z79.891 Long term (current) use of opiate analgesic; Z79.899 Other long term (current) drug therapy
CPT/HCPCS: 36415; 36600; 51702; 71045; 71275; 80048; 80053; 81000; 82805; 82947; 83605; 83690; 83735; 84100; 84145; 84478; 85007; 85025; 85027; 85379; 85610; 85730; 87040; 87070; 87077; 87081; 87088; 87184; 87205; 94002; 94003; 94640; 94660; 94799; 96365; 96367; 96375; 99291